=== PATIENT | female | born 1955 | race Caucasian/White ===

== ENCOUNTER → 2017-02-23 | Outpatient (CLI) | payer OTHER ==
[~2017-02-23] MED LIST: CALC0.5C PO; CALC1TAB23 PO; CHOLCAP5 PO; IMT50 PO; LEVO50TA6 PO; NRN100 PO; NRV/5 PO; NSNN50; OMEP40CA41 PO; PROCRIT INJ
--- NOTE | 2017-02-24 06:19 | PAP/PSG TECHNICIAN REPORT ---
[facility] Flaking Roll Operator Polysomnogram Report Study name: None Report date: 02/24/2017 Study date: 02/23/2017 Referring Physician: Mariela Peters Name: JESUS CAO Interpreting Physician: Mir Elizabeth M.D. Date of : 1955 Flaking Roll Operator: Madina Norman [facility]. Sex: Female Age: 61 StudyType: PSG PAP Weight: 221 lbs 15 in Height: 61 years, Height 5' 4" Neck Circum: BMI: 37.93 Medications: Dapsone 100mg, Deltasone 5mg, Lasix 40mg, Coreg 6.25mg, Procrit 51871kdlc/ml, Magnesium Oxide 400mg, Colace 100mg, Percocet 5-325mg, Difucan 200mg, Imitrex 50mg, Cellcept 250mg, Sodium Bicarbonate 650 mg, Prilosec 40mg, Neurontin 100mg, Valcyte 450mg, Levoxyl 50mcg, Nasonex 50mcg/act Patient History 61 yr-old female here for a new CPAP treatment study. She was found to be positive for [place] with an AHI of 51. Her diagnostic study was on 01/10/17. She chose a Quattro Air full face mask size medium from [employer]. The test was started on room air and 4 CMH2O. ETCO2 testing was not utilized during this study. Room 8 Parameters Monitored NPSG: E1-M2, E2-M1, Fp1-M2, Fp2-M1, F3-M2, F4-M2, F4-M1, C3-M2, C4-M2, C4-M1, O1-M2, O2-M2, O2-M1, T3-M2, T4-M1, P3-M2, P4-M1, CHIN1, CHIN2, HR, EKG, Legs, PFLOW, SNOR, FLOW, CFLOW, Tidal Volume, THOR, ABDO, SpO2, PLTH, CPRESS, ETCO2 Wave, ETCO2, pH Sleep Architecture Sleep Stages Time at Lights Off 10:42:49 PM STAGES Time (min.) TST (%) Time at Lights On 5:30:19 AM Wake 159.0 -- Total Recording Time (TRT) 407.50 min. N1 35.5 14 Total Sleep Period (TSP) 391.0 min. N2 161.5 65 Total Sleep Time (TST) 248.5min. N3 0.0 0 Awake Time 159.0 min. REM 51.5 21 Wake after Sleep Onset 153.5 min. Sleep Efficiency (SE) 61 % Sleep Onset Latency (ELEAZAR) 5.5 min. Number of Stage 1 Shifts None Awakenings 22 Stage Changes 87 Number of REM periods 3 REM 51.5 21 REM Latency 110.5 min. NREM 197.0 79 Body Position Analysis Supine Right Left Side Prone Vertical Total Sleep Time (min.) 274.5 0.0 83.3 83.33 0.0 0.0 Total Sleep Time (%) 66% 0% 34% 34 0% N/A% Total Sleep Time REM (min.) 43.7 0.0 7.8 None 0.0 0.0 Total Sleep Time NREM (min.) 121.5 0.0 75.5 None 0.0 0.0 Intermittent Wake (min.) 109.3 0.0 49.7 None 0.0 0.0 Total Sleep Period (%) 66% None None None None None Arousals Myoclonus (PLM) * Events Count Index Events Count Index Spontaneous 27 7 Events Awake (PLMW) 72 27.2 Respiratory 24 6.5 Events Asleep w/ Arousal (PLMA) 2 0.5 PLM 2 0 Events Asleep w/o Arousal (PLMS) 76 18.4 Snoring 3 1 Total Asleep 78 18.8 Total 56 14 Total 150 22 Respiratory Analysis * CA OA MA CH H RERA Total Count 2 26 0 0 29 9 57 Index 0.5 6.3 0.0 0 7.0 2 15.9 Mean Duration 12.5 17.4 0.0 0.00 20.2 15.2 18.2 Longest Duration 14.5 30.7 0.0 0.00 0.0 18.2 50.7 Respiratory Event Summary Total Supine ~Supine Right Left Prone REM NREM Apneas Count 28 28 0 N/A 0 N/A 10 18 Index 6.8 10 0 N/A 0.0 N/A 12 5 Hypopneas (4% Desat) Count 29 29 0 N/A 0 N/A 9 20 Index 7.0 10.5 0 N/A 0.0 N/A 10.5 6.1 Apneas & All Hypopneas Count 57 57 0 N/A 0 N/A 19 38 Index 13.8 21 0 N/A 0 N/A 22.1 11.6 Respiratory Events (Image Scientist+All Hyp+RERA) Count 57 66 0 N/A 0 N/A 19 38 Index 15.9 24 0 N/A 0.0 N/A 24.5 13.7 Respiratory Related Arousal Count 24 66 0 N/A 0 N/A 4 23 Index 6.5 10 0 N/A 0 N/A 5 7 Snoring Analysis Supine Right Left Prone REM NREM Total Snore duration 10.4 min Snores count 536 N/A 12 N/A 128 420 548 Snore mean duration 1.1 Sec Snores index 195 N/A 9 N/A 149.1 127.9 132.3 TST with snoring (%) 4.2% Desaturation Event Summary: Minimum %SpO2 Event Count Mean/Min/Max Duration(sec.) Desaturation Index % Time In Bed > 90 38 37.1 / 12.5 / 60.0 19.1 29.8 86 - 90 52 30.3 / 11.0 / 58.0 13.2 59.1 81 - 85 1 13.3 / 13.3 / 13.3 1.4 11.0 76 - 80 0 N/A 0.0 0.1 71 - 75 0 N/A 0.0 0.0 66 - 70 0 N/A 0.0 0.0 61 - 65 0 N/A 0.0 0.0 56 - 60 0 N/A 0.0 0.0 51 - 55 0 N/A 0.0 0.0 < 50 0 N/A 0.0 0.0 Total REM NREM Awake <50% 0.0 min. 0.0 min. 0.0 min. 0.0 min. 51 - 60% 0.0 min. 0.0 min. 0.0 min. 0.0 min. 61 - 70% 0.0 min. 0.0 min. 0.0 min. 0.0 min. 71 - 80% 0.2 min. 0.0 min. 0.2 min. 0.0 min. 81 - 90% 281.4 min. 37.9 min. 182.5 min. 61.0 min. 91 - 100% 119.4 min. 13.6 min. 14.3 min. 91.5 min. Average 89 89 88 91 Minimum SpO2 79 82 79 82 Desaturation Event Index 9.4 18.6 10.7 5.3 # Desat. Events below 89% 60 16 34 10 Time(%) with Saturation below 89% 28.7 3.4 21.1 4.2 Time(min.) with Saturation below 89% 115.1 13.7 84.7 16.7 Time (mins) REM (mins) NREM (mins) % of TST SpO2 Below 90% 50 16 N34 74.1 SpO2 Below 88% 26 0 0 25 Heart Rate Analysis Min (bpm) Max (bpm) Average (bpm) Awake 61 88 71 NREM 63 86 73 REM 63 85 69 Overall 63 86 73 Supplemental O2 Values Minimum O2 level: None Value Start Time End Time Flaking Roll Operator Comments Ms. Cao slept in the left and supine positions. No cardiac arrhythmias or PLMs were noted. No bruxism noted. CPAP was initiated at +4 CMH2O and up-titrated to a level of +12 CMH2O Cflex 2, which nearly eliminated all respiratory events and snoring. After she had been on a pressure of 12 CMH2O for over two hours, she had spent 10.6 minutes under an O2 saturation of 89%. At that time, 1 LPM of O2 was added. A Quattro Air full face mask size medium from [employer] was used during titration She awoke to use the restroom one time during the night. Ms. Cao stated that she slept ok. The final report will be interpreted and signed by a sleep physician. The completed physician report will then be placed in the patient medical record. Therapy Event: Therapy (cm H20) 4 6 7 9 11 12 Total Time at Pressure (min.) 31.2 25.1 22.8 50.6 58.1 219.8 TST at Pressure (min.) 10.7 24.6 22.8 50.1 57.6 82.8 # Periods 1 1 1 1 1 1 Sleep Onset (min.) 5.5 0.0 0.0 0.0 0.0 0.0 REM Onset (min.) N/A N/A N/A 36.9 0.0 63.3 Sleep Efficiency % 34 98 100 99 99 37 Wakefulness (%) 65.6 2.0 0.0 1.0 0.9 62.3 Wakefulness (min.) 20.5 0.5 0.0 0.5 0.5 137.0 NREM 1 (%) 28.0 13.0 8.8 14.8 1.7 5.9 NREM 1 (min.) 8.7 3.3 2.0 7.5 1.0 13.0 NREM 2 (%) 6.4 85.0 91.2 57.2 46.1 28.1 NREM 2 (min.) 2.0 21.3 20.8 28.9 26.7 61.8 NREM 3 (%) 0.0 0.0 0.0 0.0 0.0 0.0 NREM 3 (min.) 0.0 0.0 0.0 0.0 0.0 0.0 REM (%) 0.0 0.0 0.0 27.0 51.4 3.6 REM (min.) 0.0 0.0 0.0 13.7 29.8 8.0 # Arousals 13 3 2 18 3 17 Arousal Index 72.6 7.3 5.3 21.6 3.1 12.3 # Snore 16 248 104 28 143 9 Snore Index 89.3 606.1 274.1 33.5 149.1 6.5 AHI 33.5 14.7 10.5 35.9 9.4 1.5 AHI Supine 33.5 14.7 10.5 35.9 11.7 11.2 AHI Non-Supine N/A N/A N/A N/A 0.0 0.0 NREM AHI 33.5 14.7 10.5 28.0 6.5 1.6 REM AHI N/A N/A N/A 57.0 12.1 0.0 RDI 50.2 17.1 10.5 39.5 10.4 2.2 # Obstructive 0 0 1 19 6 0 # Central Ap 0 0 0 0 0 2 # Mixed 0 0 0 0 0 0 # Hypopneas 6 6 3 11 3 0 RERAS 3 1 0 3 1 1 Total Respiratory Events 9 7 4 33 10 3 Time Below SpO2 89.00% (min.) 8.7 23.2 20.8 20.1 14.9 10.7 Mean NREM SpO2 (%) 87 84 86 89 89 89 Mean REM SpO2 (%) N/A N/A N/A 89 90 89 Mean Sleep SpO2 (%) 87 84 86 89 89 89 Min NREM SpO2 (%) 82 81 84 79 85 87 Min REM SpO2 (%) N/A N/A N/A 82 86 87 Position Supine (min.) 10.7 24.6 22.8 50.1 46.3 10.7 Position Non-supine (min.) 0.0 0.0 0.0 0.0 11.2 72.1 LM Index Sleep 11.2 2.4 5.3 14.4 0.0 44.2 LM Index NREM 11.2 2.4 5.3 14.8 0.0 49.0 LM Index REM N/A N/A N/A 13.2 0.0 0.0 Mean Heart Rate (bpm) 76 79 77 72 71 70 Min Heart Rate (bpm) 67 67 64 63 63 63 CPAP REPORT Therapy Detail Time / Page # Comment CPAP 4 cm H2O Full Face Mask Flex Pressure Relief Humidifier on 10:40:27 PM / pg. 148 CPAP 6 cm H2O Full Face Mask Flex Pressure Relief Humidifier on 11:14:04 PM / pg. 215 INCREASED FOR HYPOPNEAS AND RERAS CPAP 7 cm H2O Full Face Mask Flex Pressure Relief Humidifier on 11:39:07 PM / pg. 265 INCREASED FOR AUDIBLE SNORING CPAP 9 cm H2O Full Face Mask Flex Pressure Relief Humidifier on 12:01:53 AM / pg. 311 INCREASED FOR MORE HYPOPNEAS AND RERAS CPAP 11 cm H2O Full Face Mask Flex Pressure Relief Humidifier on 12:52:30 AM / pg. 412 INCREASED FOR APNEAS AND HYPOPNEAS CPAP 12 cm H2O Full Face Mask Flex Pressure Relief Humidifier on 1:50:34 AM / pg. 528 INCREASED FOR MORE HYPOPNEAS AND APNEAS CPAP 12 cm H2O Full Face Mask Flex Pressure Relief Humidifier on Oxygen 1.0 lpm 4:13:12 AM / pg. 813 SHE HAS BEEN ON A PRESSURE OF 12 CM FOR OVER 2 HOURS AND HER AHI IS 1.6. SHE SPENT 10.6 MINUTES UNDER AN O2 SATURATION OF 89%. STARTING WITH 1 LPM OF O2
--- NOTE | 2017-02-27 11:57 | POLYSOMNOGRAPH REPORT ---
CLINICAL DATA: 61-year-old female referred with a BMI 37.9 referred by MALIA Juarez for CPAP titration. She recently showed severe sleep apnea during a PSG on 01/10/17. She chose Quattro Air full face mask size medium. SLEEP ARCHITECTURE: Total sleep period was 391 minutes. Total sleep time was 248.5 minutes divided between 197 of and 51.5 minutes of REM sleep. Sleep onset latency was 5.5 minutes. REM latency was 110.5 minutes. Sleep efficiency was 61%. Wake after sleep onset was elevated at 153.5 minutes. Sleep consisted of stage N1 14%, stage N2 65%, and REM 21%. AROUSAL DATA: 56 arousals were recorded for an index of 14 per hour. PLM DATA: Mildly elevated limb movements during sleep were noted. There were 78 limb movements during sleep noted for an index of 18.8 per hour with arousal index of 0.5 per hour. RESPIRATORY DATA: The AHI was 13.8. There were 2 central and 26 obstructive apneic episodes. The longest apneic episode was 30.7 seconds. There were 29 hypopneic episodes with a mean duration of 20 seconds. OXIMETRY DATA: Significant nocturnal hypoxemia was seen. Oxygen logan was 79% during non-REM sleep. The mean saturation was 89%. Time below 88% was 26 minutes. EKG: Heart rates ranged from 63-86 beats per minute. No arrhythmias were noted. BUILDING EQUIPMENT INSPECTOR'S COMMENTS AND TREATMENT SUMMARY: The patient slept in the left and supine positions. She used a Quattro Air full face mask size medium from [employer]. She was titrated up to a final pressure setting of CPAP 12 cm of water pressure, C-Flex setting #2. She slept at that pressure level for 82.8 minutes with an AHI of 1.5. However, she continued to have nocturnal hypoxemia and at that time, 1 liter per minute of oxygen was added. IMPRESSION: Severe obstructive sleep apnea corrected with CPAP 12 cm water pressure, C-Flex setting #2, Quattro full facemask size medium from [employer] with 1 liter per minute of oxygen for hypoxemia. RECOMMENDATIONS: The patient should be started on the above noted treatment regimen and seen back in followup within 90 days to document efficacy and compliance. [facility]
== END | disposition home or self-care (01) ==
LOC: C.NEUR 20:00
PROVIDERS: ATTEND Nurse Practitioner Family
DX: G47.33 Obstructive sleep apnea (adult) (pediatric) (principal); R09.02 Hypoxemia

== ENCOUNTER 2020-12-28 14:00 | Observation (INO) ==
[2020-12-28 17:30] LABS: Basophils # (auto) 0.02 K/uL (0-0.2); Basophils % (auto) 0.3 %; Eosinophils # (auto) 0.12 K/uL (0-0.5); Eosinophils % (auto) 1.6 %; Hematocrit (blood only) 39.1 % (37-47); Hemoglobin 12.3 g/dL (12.0-16.0); Immature Granulocytes # (auto) 0.02 K/uL (0.00-0.02); Immature Granulocytes % (auto) 0.3 %; Lymphocytes # (auto) 1.06 K/uL (1.2-3.4); Lymphocytes % (auto) 13.8 %; Mean Corpuscular Hemoglobin 28.3 pg (25-34); Mean Corpuscular Hgb Conc 31.5 g/dL (32-36); Mean Corpuscular Volume 89.9 fL (80-100); Mean Platelet Volume 9.8 fL (7.4-10.4); Monocytes # (auto) 0.78 K/uL (0.11-0.59); Monocytes % (auto) 10.1 %; Neutrophils # (auto) 5.69 K/uL (1.4-6.5); Neutrophils % (auto) 73.9 %; Platelet Count 185 K/uL (130-400); RDW Coefficient of Variation 14.2 % (11.5-14.5); RDW Standard Deviation 46.7 fL (36.4-46.3); Red Blood Count 4.35 M/uL (4.2-5.4); White Blood Count 7.69 K/uL (4.8-10.8)
[2020-12-28] MEDS ORDERED: PROCHLORPERAZINE 1 ML IV ONE (17:33)
[2020-12-28] MEDS ORDERED: dexAMETHasone**PF** 10 MG/ML VIAL IV ONE (17:33)
[2020-12-28] MEDS ORDERED: ACETAMINOPHEN 1,000 MG/100 ML VIAL IV STA (17:33)
[2020-12-28] MEDS ORDERED: diphenhydrAMINE 50 MG/ML VIAL IV STA (17:33)
[2020-12-28] MEDS ORDERED: SODIUM CHLORIDE 0.9% 500 ML IV STA (17:33)
[2020-12-28 17:39] LABS: Partial Thromboplastin Time 25.3 Seconds (21.0-31.0); Prothrombin Time 10.6 Seconds (9.0-12.0)
[2020-12-28 17:50] LABS: Albumin Level 3.3 gm/dl (3.4-5.0); BUN Creatinine Ratio 9.7 (10-20); Calcium 9.1 mg/dl (8.5-10.1); Creatinine Clr Calc Pharmacy 19.6 ml/min; Est GFR (African American) 16.4 ml/min; Est GFR (Non-African American) 14.1 ml/min; Potassium 4.9 mmol/L (3.5-5.1)
--- NOTE | 2020-12-28 17:50 | XRay Report ---
XR chest 1V portable CLINICAL HISTORY: Atypical chest pain TECHNIQUE: Single frontal radiograph of the chest was obtained. Comparison: None available at the time of this dictation. FINDINGS: Right portacatheter is seen. The cardiomediastinal silhouette is normal. The lungs are clear. No evid ence of pleural effusion or pneumothorax. IMPRESSION: No acute chest disease. ACT 112: Negative or not required by law. Electronically signed by: Phill Loomis M.D. 12/28/2020 5:49 PM
[2020-12-28 17:53] LABS: Albumin Globulin Ratio 1.2 (0.9-2); Bilirubin,Total 0.5 mg/dl (0.2-1); Globulin 2.7 gm/dl (2.5-4.0)
[2020-12-28 18:27] LABS: Bilirubin Direct 0.1 mg/dl (0-0.2); C Reactive Protein < 0.29 mg/dl (0-0.29); Magnesium 2.3 mg/dl (1.8-2.4); Thyroid Stimulating Hormone 0.156 uIu/ml (0.300-4.500); Troponin I < 0.015 ng/ml (0-0.045)
--- NOTE | 2020-12-28 18:34 | CT Scan Report ---
CT head/brain wo con CLINICAL HISTORY: ?frontal microhemorrhages on MRI 12/24. chron norman Technique: Contiguous axial CT images of the head were acquired from the base of the skull to the max lee without intravenous contrast administration. Images were viewed in brain, subdural and bone windo ws. Automated dose lowering techniques and/or adjustment according to patient size were utilized for this exam. Comparison: None available at the time of this dictation. Findings: The ventricles, basal cisterns, and cerebral sulci are normal. There is no acute intracranial hemorrh age or evidence of acute territorial infarction. Neither mass effect, shift of the midline structures , nor abnormal extra-axial fluid collections are shown. Imaged portions of the paranasal sinuses and mastoid air cells are clear. The orbits appear normal. There are no acute fractures of the calvaria or scalp swelling. Impression: No acute intracranial hemorrhage, evidence of acute territorial infarction, or other acute intracrani al disease process. ACT 112: Negative or not required by law. Electronically signed by: Phill Loomis M.D. 12/28/2020 6:33 PM
--- NOTE | 2020-12-28 18:38 | Emergency Department Note ---
Impression & Plan Hypertensive urgency, Abnormal finding on MRI of brain, Chronic migraine, CKD (chronic kidney disease) ED Provider Note NAME: JESUS CAO AGE: 65 SEX: F ARRIVES VIA: Walk-In INFORMANT: Patient, ED PROVIDER(S): Ángel Bee MD CHIEF COMPLAINT: Headache. Abnormal MRI. PLAN: Disposition: Admit MEDICAL DECISION MAKING: The patient is a pleasant 65-year-old with a past medical history of CKD in the setting of failed kidney transplant in 2017 who is status post left upper extremity AV fistula placement if she were to need to begin dialysis, history of migraine headaches, hypertension, hyperlipidemia who presents emerge department referred by her PCP for evaluation of ongoing chronic headache for the past several months which is present daily though waxes and wanes and may go away briefly which she felt was different from her migraine headaches which is difficult for her to characterize as these may also occur for days at a time with some time in between. She reports that she may even have several months without having a migraine headache but then reports she may have a dull tingling headache in between there that she feels is not her migraine but her blood pressure being elevated. She did have an MRI performed on 12/24 outpatient in the [facility] system which demonstrated the possibility of 2 foci of microhemorrhage in the frontal lobes. At this time patient reports her headache is mostly on her left side as it has been for the past several months and rates it as a 5/10. She reports she did take all her blood pressure medications that are needed up until this time. She has additional medications that she takes in the evening. [facility] MRI 12/24/2020 reads: Few scattered periventricular and subcortical white matter T2/FLAIR hyperintensities, which are nonspecific, and likely represent the sequela of chronic microvascular ischemia. Differential diagnosis include the possibility of prior trauma, migraine, infection or inflammatory etiology. Additionally, 2 foci of abnormal susceptibility artifact is noted on the gradient recall echo sequence within the bilateral frontal lobe white matter. This finding may represent microhemorrhages. On arrival the patient is no acute distress, afebrile with blood pressure 200/130s and vital signs otherwise stable. She appears clinically dry. She has no focal neurologic deficits. She has no bilateral temporal tenderness to palpation. EKG without overt acute ischemia. CXR negative for acute cardiopulmonary process. WBC, H/H, platelets wnl. ESR and CRP wnl. Chemistry without acidosis. Cr. 3.3 in setting of CKD. Electrolytes unremarkable. LFTs without significant abnormality. Troponin negative/undetectable. TSH 0.156 but with Free T4 wnl. UA with epithelial cells and patient denies urinary symptoms. Covid-[address] head negative for acute process, specifically no ICH. BP somewhat improved after IVF hydration and migraine cocktail. However, still elevated and given uncontrolled BP reasonable to admit for hypertensive urgency. Labetolol ordered. Case was discussed with [facility] neurology on-call Dr. Ryder. Agrees that outpatient MRI is not acute and likely related to uncontrolled BP. Agrees that admission is appropriate for BP controlled however not for outpatient MRI findings in particular. Patient agrees with plan for adm ission. [facility] the patient for [facility]. Triage Nursing notes reviewed and agree them. Prior medical records reviewed Vital Signs: reviewed and remarkable for hypertension. Differential diagnosis: Migraine headache, meningitis, sinusitis, CO exposure, ICH, SAH, infection, tumor, headache, sinus thrombosis, arterial dissection, as well as other pathol ogies. ER treatment provided: See below. Diagnostics interpreted by me: ECG: Normal sinus rhythm, 78 bpm, no ectopy, no overt ST elevation or depression, QTC 465, QRS 102. Cardiac Monitoring: An order for continuous cardiac monitoring was placed and demonstrated sinus rhythm, 70 bpm, no ectopy. Laboratory studies: See below Imaging studies: See below Consultation(s): Dr. Ryder, [facility] neurology on-call. Dr[facility]. HPI: The patient is a pleasant 65-year-old with a past medical history of CKD in the setting of failed kidney transplant in 2017 who is status post left upper extremity AV fistula placement if she were to need to begin dialysis, history of migraine headaches, hypertension, hyperlipidemia who presents emerge department referred by her PCP for evaluation of ongoing chronic headache for the past several months which is present daily though waxes and wanes and may go away briefly which she felt was different from her migraine headaches which is difficult for her to characterize as these may also occur for days at a time with some time in between. She reports that she may even have several months without having a migraine headache but then reports she may have a dull tingling headache in between there that she feels is not her migraine but her blood pressure being elevated. She did have an MRI performed on 12/24 outpatient in the [facility] system which demonstrated the possibility of 2 foci of microhemorrhage in the frontal lobes. ROS: See above HPI for pertinent positives & negatives. A total of 10 systems reviewed and were otherwise negative. PAST MEDICAL HISTORY:See Below PAST SURGICAL HISTORY:See Below FAMILY HISTORY:See Below SOCIAL HISTORY:See Below HOME MEDICATIONS:See Below ALLERGIES:See Below VITALS:See Below PHYSICAL EXAMINATION: GENERAL: Awake, alert, well-appearing, in no distress HENT: Normocephalic, atraumatic. Oropharynx with dry mucous membranes and otherwise unremarkable. EYES: Normal conjunctiva. Sclera non-icteric. EOMI. No nystamgus. PEARRL. NECK: Supple. No nuchal rigidity. FROM. No JVD. RESPIRATORY: Clear to auscultation. CARDIAC: Regular rate, normal rhythm. Extremities warm and well perfused. Pulses equal. ABDOMEN: Soft, non-distended. No tenderness to palpation. No rebound or guarding. No masses. RECTAL: Deferred. MUSCULOSKELETAL: Chest examination reveals no tenderness. The back is symmetrical on inspection without obvious abnormality. There is no CVA tenderness to palpation. No joint edema. LOWER EXTREMITIES: Calves are equal size bilaterally and non-tender. No edema. No discoloration. NEURO: No sensory or motor deficits noted. 5/5 strength and SILT x 4 extremities. Cerebellar function intact including [id number], alternating palms, [id number]. SKIN: No rash or jaundice noted. Ángel Bee MD Past Med/Surg History Medical History (Updated 12/29/20 @ 05:42 by Ángel Bee MD) Anemia in chronic kidney disease Chronic back pain Chronic steroid use GERD (gastroesophageal reflux disease) HLD (hyperlipidemia) HTN (hypertension) Hypothyroidism Migraine SIRS (systemic inflammatory response syndrome) Sleep apnea no device currently Surgical History History of bilateral tubal ligation History of section History of cholecystectomy History of colonoscopy History of esophagogastroduodenoscopy (EGD) History of kidney transplant 08/28/2016 @ [facility] (right side) functions at only 17%--d/t ESRD History of laparoscopy History of tonsillectomy and adenoidectomy History of tooth extraction History of wisdom tooth extraction Family History Grandmother (Paternal) Family history of diabetes mellitus Grandmother (Maternal) Family history of diabetes mellitus Family hx of colon cancer Mother Family hx of colon cancer Other No family history of adverse response to anesthesia Social History Smoking Status: Former smoker Second Hand Exposure: No; Do You Dip or Chew Tobacco: No; Tobacco Cessation Education Requested by Patient: No Hx Alcohol Use: No Hx Substance Use: No Preferred Language: Kiswahili Communication Ability: Effective Clinical Dietetic Technician Required: No Beliefs That Will Affect Care: None Current Living Situation: Spouse Current Living Situation Comment: Lives with and daughter and her family Other Information That Helps Us Care for You: No Feels Safe at Home: Yes Assistive Devices: Glasses Allergies Allergies Allergy/AdvReac Type Severity Reaction Status Date / Time levofloxacin AdvReac Severe C-DIFF Verified 12/28/20 19:41 Home Meds Home Medications Medication Instructions Recorded Confirmed aspirin 81 mg chewable tablet 81 mg PO QAM 04/23/18 12/28/20 belatacept 250 mg intravenous 1 dose IV MONTHLY 04/23/18 12/28/20 solution carvedilol 25 mg tablet 37.5 mg PO QAM 04/23/18 12/28/20 fluticasone propionate 50 2 spray INTRANASAL DAILY PRN 04/23/18 12/28/20 mcg/actuation nasal spray,suspension (Flonase Allergy Relief) furosemide 20 mg tablet 20 mg PO QAM 04/23/18 12/28/20 gabapentin 100 mg capsule 100 mg PO BID 04/23/18 12/28/20 levothyroxine 50 mcg tablet 50 mcg PO QAM 04/23/18 12/28/20 magnesium oxide 400 mg PO BID 04/23/18 12/28/20 omeprazole 40 mg capsule,delayed 40 mg PO QAM 04/23/18 12/28/20 release prednisone 5 mg tablet 5 mg PO QAM 04/23/18 12/28/20 sodium bicarbonate 650 mg tablet 650 mg PO QAM 04/23/18 12/28/20 sumatriptan succinate 50 mg tablet 1 tab PO UD PRN 04/23/18 12/28/20 tacrolimus 1 mg capsule, 1 mg PO BID 04/23/18 12/28/20 immediate-release carvedilol 25 mg tablet 25 mg PO QPM 12/28/20 12/28/20 oxycodone-acetaminophen 5 mg-325 1 tab PO Q6 PRN 12/28/20 12/28/20 mg tablet Results & Data (ED) Vital Signs Vital Signs - 24 hr 12/28/20 14:07 12/28/20 17:26 12/28/20 17:30 Temperature 37.2 C Temperature Source Oral Pulse Rate 76 76 79 Pulse Rate from SpO2 Sensor 75 79 Pulse Rhythm Respiratory Rate 18 19 22 Blood Pressure 186/84 H 181/97 H Blood Pressure Mean 118 125 Pulse Oximetry 97 96 95 Oxygen Delivery Method Room Air Sepsis Recent Fever Within 48 Hours No Sepsis New/Unexplained Change in Mental Status No Sepsis Action Taken by Nursing No Action Required 12/28/20 17:33 12/28/20 17:40 12/28/20 17:50 Temperature Temperature Source Pulse Rate 79 77 76 Pulse Rate from SpO2 Sensor 77 78 Pulse Rhythm Regular Respiratory Rate 18 25 H 15 Blood Pressure Blood Pressure Mean Pulse Oximetry 99 95 97 Oxygen Delivery Method Room Air Sepsis Recent Fever Within 48 Hours Sepsis New/Unexplained Change in Mental Status Sepsis Action Taken by Nursing 12/28/20 18:00 12/28/20 18:10 12/28/20 19:00 Temperature Temperature Source Pulse Rate 84 79 78 Pulse Rate from SpO2 Sensor 84 79 Pulse Rhythm Respiratory Rate 16 31 H 20 Blood Pressure 207/130 H Blood Pressure Mean 155 Pulse Oximetry 96 96 Oxygen Delivery Method Sepsis Recent Fever Within 48 Hours Sepsis New/Unexplained Change in Mental Status Sepsis Action Taken by Nursing 12/28/20 19:10 12/28/20 19:20 12/28/20 19:30 Temperature Temperature Source Pulse Rate 77 74 78 Pulse Rate from SpO2 Sensor Pulse Rhythm Respiratory Rate 21 20 18 Blood Pressure 172/100 H 188/105 H Blood Pressure Mean 124 132 Pulse Oximetry Oxygen Delivery Method Sepsis Recent Fever Within 48 Hours Sepsis New/Unexplained Change in Mental Status Sepsis Action Taken by Nursing 12/28/20 19:40 12/28/20 19:50 12/28/20 20:00 Temperature Temperature Source Pulse Rate 78 73 73 Pulse Rate from SpO2 Sensor 74 Pulse Rhythm Respiratory Rate 30 H 19 24 Blood Pressure Blood Pressure Mean Pulse Oximetry 93 93 95 Oxygen Delivery Method Sepsis Recent Fever Within 48 Hours Sepsis New/Unexplained Change in Mental Status Sepsis Action Taken by Nursing 12/28/20 20:10 12/28/20 20:20 12/28/20 20:30 Temperature Temperature Source Pulse Rate 73 74 70 Pulse Rate from SpO2 Sensor Pulse Rhythm Respiratory Rate 22 16 18 Blood Pressure 180/108 H Blood Pressure Mean 132 Pulse Oximetry 95 96 94 Oxygen Delivery Method Sepsis Recent Fever Within 48 Hours Sepsis New/Unexplained Change in Mental Status Sepsis Action Taken by Nursing 12/28/20 20:40 12/28/20 21:04 12/28/20 21:10 Temperature Temperature Source Pulse Rate 70 79 76 Pulse Rate from SpO2 Sensor Pulse Rhythm Respiratory Rate 19 21 20 Blood Pressure 183/104 H Blood Pressure Mean 130 Pulse Oximetry 95 Oxygen Delivery Method Sepsis Recent Fever Within 48 Hours Sepsis New/Unexplained Change in Mental Status Sepsis Action Taken by Nursing 12/28/20 21:20 Temperature Temperature Source Pulse Rate 85 Pulse Rate from SpO2 Sensor Pulse Rhythm Respiratory Rate 20 Blood Pressure 191/107 H Blood Pressure Mean 135 Pulse Oximetry Oxygen Delivery Method Sepsis Recent Fever Within 48 Hours Sepsis New/Unexplained Change in Mental Status Sepsis Action Taken by Nursing Laboratory Data Attestation: I reviewed the patient's lab results. Result diagrams: 12/28/20 17:16 12/28/20 17:16 Lab Results 12/28/20 12/28/20 12/28/20 Range/Units 17:16 17:16 17:16 WBC 7.69 (4.8-10.8) K/uL RBC 4.35 (4.2-5.4) M/uL Hgb 12.3 (12.0-16.0) g/dL Hct 39.1 (37-47) % MCV 89.9 (80-100) fL MCH 28.3 (25-34) pg MCHC 31.5 L (32-36) g/dL RDW Std Deviation 46.7 H (36.4-46.3) fL RDW Coeff of Moriah 14.2 (11.5-14.5) % Plt Count 185 (130-400) K/uL MPV 9.8 (7.4-10.4) fL Immature Gran % (Auto) 0.3 % Neut % (Auto) 73.9 % Lymph % (Auto) 13.8 % Mcdonough % (Auto) 10.1 % Eos % (Auto) 1.6 % Baso % (Auto) 0.3 % Neut # (Auto) 5.69 (1.4-6.5) K/uL Lymph # (Auto) 1.06 L (1.2-3.4) K/uL Mcdonough # (Auto) 0.78 H (0.11-0.59) K/uL Eos # (Auto) 0.12 (0-0.5) K/uL Baso # (Auto) 0.02 (0-0.2) K/uL Immature Gran # (Auto) 0.02 (0.00-0.02) K/uL ESR (0-30) mm/hr PT 10.6 (9.0-12.0) Seconds INR 1.0 (0.9-1.1) APTT 25.3 (21.0-31.0) Seconds PTT Ratio 1.0 Sodium 142 (136-145) mmol/L Potassium 4.9 (3.5-5.1) mmol/L Chloride 114 H (98-107) mmol/L Carbon Dioxide 21 (21-32) mmol/L Anion Gap 7.0 (3-11) BUN 32 H (7-18) mg/dl Creatinine 3.30 H (0.6-1.2) mg/dl Est Cr Clr Drug Dosing 19.6 ml/min Est GFR ( Amer) 16.4 ml/min Est GFR (Non-Af Amer) 14.1 ml/min BUN/Creatinine Ratio 9.7 L (10-20) Glucose 116 H (70-99) mg/dl Calcium 9.1 (8.5-10.1) mg/dl Phosphorus (2.5-4.9) mg/dl Magnesium (1.8-2.4) mg/dl Total Bilirubin 0.5 (0.2-1) mg/dl Direct Bilirubin (0-0.2) mg/dl AST 11 L (15-37) U/L ALT 26 (12-78) U/L Alkaline Phosphatase 72 (45-117) U/L Troponin I (0-0.045) ng/ml C-Reactive Protein (0-0.29) mg/dl Total Protein 6.0 L (6.4-8.2) gm/dl Albumin 3.3 L (3.4-5.0) gm/dl Globulin 2.7 (2.5-4.0) gm/dl Albumin/Globulin Ratio 1.2 (0.9-2) TSH (0.300-4.500) uIu/ml Free T4 (0.8-1.6) ng/dl COVID-19 Eval Order SARS-CoV-2 (PCR) (Negative) 12/28/20 12/28/20 12/28/20 Range/Units 17:16 17:16 17:49 WBC (4.8-10.8) K/uL RBC (4.2-5.4) M/uL Hgb (12.0-16.0) g/dL Hct (37-47) % MCV (80-100) fL MCH (25-34) pg MCHC (32-36) g/dL RDW Std Deviation (36.4-46.3) fL RDW Coeff of Moriah (11.5-14.5) % Plt Count (130-400) K/uL MPV (7.4-10.4) fL Immature Gran % (Auto) % Neut % (Auto) % Lymph % (Auto) % Mcdonough % (Auto) % Eos % (Auto) % Baso % (Auto) % Neut # (Auto) (1.4-6.5) K/uL Lymph # (Auto) (1.2-3.4) K/uL Mcdonough # (Auto) (0.11-0.59) K/uL Eos # (Auto) (0-0.5) K/uL Baso # (Auto) (0-0.2) K/uL Immature Gran # (Auto) (0.00-0.02) K/uL ESR 17 (0-30) mm/hr PT (9.0-12.0) Seconds INR (0.9-1.1) APTT (21.0-31.0) Seconds PTT Ratio Sodium (136-145) mmol/L Potassium (3.5-5.1) mmol/L Chloride (98-107) mmol/L Carbon Dioxide (21-32) mmol/L Anion Gap (3-11) BUN (7-18) mg/dl Creatinine (0.6-1.2) mg/dl Est Cr Clr Drug Dosing ml/min Est GFR ( Amer) ml/min Est GFR (Non-Af Amer) ml/min BUN/Creatinine Ratio (10-20) Glucose (70-99) mg/dl Calcium (8.5-10.1) mg/dl Phosphorus 3.0 (2.5-4.9) mg/dl Magnesium 2.3 (1.8-2.4) mg/dl Total Bilirubin (0.2-1) mg/dl Direct Bilirubin 0.1 (0-0.2) mg/dl AST (15-37) U/L ALT (12-78) U/L Alkaline Phosphatase (45-117) U/L Troponin I < 0.015 (0-0.045) ng/ml C-Reactive Protein < 0.29 (0-0.29) mg/dl Total Protein (6.4-8.2) gm/dl Albumin (3.4-5.0) gm/dl Globulin (2.5-4.0) gm/dl Albumin/Globulin Ratio (0.9-2) TSH 0.156 L (0.300-4.500) uIu/ml Free T4 1.32 (0.8-1.6) ng/dl COVID-19 Eval Order Covid19 at [facility] SARS-CoV-2 (PCR) (Negative) 12/28/20 Range/Units 17:49 WBC (4.8-10.8) K/uL RBC (4.2-5.4) M/uL Hgb (12.0-16.0) g/dL Hct (37-47) % MCV (80-100) fL MCH (25-34) pg MCHC (32-36) g/dL RDW Std Deviation (36.4-46.3) fL RDW Coeff of Moriah (11.5-14.5) % Plt Count (130-400) K/uL MPV (7.4-10.4) fL Immature Gran % (Auto) % Neut % (Auto) % Lymph % (Auto) % Mcdonough % (Auto) % Eos % (Auto) % Baso % (Auto) % Neut # (Auto) (1.4-6.5) K/uL Lymph # (Auto) (1.2-3.4) K/uL Mcdonough # (Auto) (0.11-0.59) K/uL Eos # (Auto) (0-0.5) K/uL Baso # (Auto) (0-0.2) K/uL Immature Gran # (Auto) (0.00-0.02) K/uL ESR (0-30) mm/hr PT (9.0-12.0) Seconds INR (0.9-1.1) APTT (21.0-31.0) Seconds PTT Ratio Sodium (136-145) mmol/L Potassium (3.5-5.1) mmol/L Chloride (98-107) mmol/L Carbon Dioxide (21-32) mmol/L Anion Gap (3-11) BUN (7-18) mg/dl Creatinine (0.6-1.2) mg/dl Est Cr Clr Drug Dosing ml/min Est GFR ( Amer) ml/min Est GFR (Non-Af Amer) ml/min BUN/Creatinine Ratio (10-20) Glucose (70-99) mg/dl Calcium (8.5-10.1) mg/dl Phosphorus (2.5-4.9) mg/dl Magnesium (1.8-2.4) mg/dl Total Bilirubin (0.2-1) mg/dl Direct Bilirubin (0-0.2) mg/dl AST (15-37) U/L ALT (12-78) U/L Alkaline Phosphatase (45-117) U/L Troponin I (0-0.045) ng/ml C-Reactive Protein (0-0.29) mg/dl Total Protein (6.4-8.2) gm/dl Albumin (3.4-5.0) gm/dl Globulin (2.5-4.0) gm/dl Albumin/Globulin Ratio (0.9-2) TSH (0.300-4.500) uIu/ml Free T4 (0.8-1.6) ng/dl COVID-19 Eval Order SARS-CoV-2 (PCR) NEGATIVE (Negative) Administered Medications Discontinued Medications Carvedilol (Carvedilol 12.5 Mg Tab) 37.5 mg PO NOW STA Stop: 12/28/20 21:21 Last Admin: 12/28/20 21:29 Dose: 37.5 mg Documented by: [id number] Dexamethasone Sodium Phosphate (DexamethasonePf 10 Mg/Ml Vial) 10 mg IV NOW ONE Stop: 12/28/20 17:34 Last Admin: 12/28/20 18:11 Dose: 10 mg Documented by: [id number] Diphenhydramine HCl (Diphenhydramine 50 Mg/Ml Vial) 12.5 mg IV NOW STA Stop: 12/28/20 17:34 Last Admin: 12/28/20 18:11 Dose: 12.5 mg Documented by: [id number] Sodium Chloride (Nss) 500 mls @ 999 mls/hr IV .Q31M STA Stop: 12/28/20 18:03 Last Infusion: 12/28/20 19:46 Dose: 999 mls/hr Documented by: [id number] Admin: 12/28/20 17:55 Dose: 999 mls/hr Documented by: [id number] Acetaminophen (Ofirmev) 1,000 mg in 100 mls @ 400 mls/hr IV NOW STA Stop: 12/28/20 17:47 Last Infusion: 12/28/20 18:12 Dose: 0 mls/hr Documented by: [id number] Admin: 12/28/20 18:11 Dose: 400 mls/hr Documented by: [id number] Prochlorperazine (Compazine) 1 mls @ 1 mls/min IV ONE ONE Stop: 12/28/20 17:34 Last Admin: 12/28/20 18:13 Dose: 1 mls/min Documented by: [id number] Labetalol HCl (Labetalol Hcl Iv 5 Mg/Ml 20ml) 10 mg IV NOW STA Stop: 12/28/20 19:02 Last Admin: 12/28/20 19:39 Dose: 10 mg Documented by: [id number] Cosigned by: [id number] Imaging Data Radiologist's Impression: Chest X-Ray 12/28/20 17:33 XR chest 1V portable CLINICAL HISTORY: Atypical chest pain TECHNIQUE: Single frontal radiograph of the chest was obtained. Comparison: None available at the time of this dictation. FINDINGS: Right portacatheter is seen. The cardiomediastinal silhouette is normal. The lungs are clear. No evidence of pleural effusion or pneumothorax. IMPRESSION: No acute chest disease. ACT 112: Negative or not required by law. Electronically signed by: Phill Loomis M.D. 12/28/2020 5:[address] 12/28/20 17:36 CT head/brain wo con CLINICAL HISTORY: ?frontal microhemorrhages on MRI 12/24. chron norman Technique: Contiguous axial CT images of the head were acquired from the base of the skull to the vertex without intravenous contrast administration. Images were viewed in brain, subdural and bone windows. Automated dose lowering techniques and/or adjustment according to patient size were utilized for this exam. Comparison: None available at the time of this dictation. Findings: The ventricles, basal cisterns, and cerebral sulci are normal. There is no acute intracranial hemorrhage or evidence of acute territorial infarction. Neither mass effect, shift of the midline structures, nor abnormal extra-axial fluid collections are shown. Imaged portions of the paranasal sinuses and mastoid air cells are clear. The orbits appear normal. There are no acute fractures of the calvaria or scalp swelling. Impression: No acute intracranial hemorrhage, evidence of acute territorial infarction, or other acute intracranial disease process. ACT 112: Negative or not required by law. Electronically signed by: Phill Loomis M.D. 12/28/2020 6:33 PM Discharge Plan Visit Data Chief Complaint: Referred by Doctor Stated Complaint: REFERRED BY DOCTOR, HIGH BLOOD PRESSURE ED Provider: Ángel Bee Discharge Problem: Hypertensive urgency, Abnormal finding on MRI of brain, Chronic migraine, CKD (chronic kidney disease) Patient Disposition: Admitted As Inpatient Discharge Instructions Interventions: ED Discharge Assessment Last Done: 12/28/20 22:17
[2020-12-28] MEDS ORDERED: LABETALOL HCL IV 5 MG/ML 20ML IV STA (19:01)
[2020-12-28 20:03] LABS: T4 Free Thyroxine 1.32 ng/dl (0.8-1.6)
--- NOTE | 2020-12-28 21:18 | History & Physical Report ---
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 SCDs RE cerebral microhemorrhages on recent outpatient MRI Full code Text document was generated using Than[employer] voice recognition software. It may contain grammatical or spelling errors. Kindly contact undersigned for clarification of any documentation item in question. History of Present Illness Chief Complaint: Abnormal MRI, PCP told me to go to ER. Primary Care Provider: Kenneth Butt MD History obtained from patient, family, and records. 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 Last confinement February 2016 for abdominal peritonitis secondary to peritoneal dialysis catheter infection. Patient seen at PCPs office 3 weeks ago for daily headache symptoms for about 3 to 4 months. Imitrex partially helping. SBP 1 30-1 80s at home. Patient compliant with home meds. Denies unusual stress. No chest pain, no S OB, no unusual fluid retention. SBP at PCPs office 160s at time of visit. Outpatient MRI requested by PCP done a few days ago. Study showed abnormal susceptibility artifact within white matter of bilateral frontal lobes likely representing 2 foci of microhemorrhage.. Scattered periventricular and subcortical white matter T2 FLAIR hyper and densities are nonspecific and likely represent chronic microvascular ischemia sequelae. Differential considerations include trauma, demyelinating pathology, infection or inflammatory etiology. Patient directed to ER for evaluation after PCP conferred with neurologist. Highest SBP at the ER 200s. Patient given Labetalol at the ER. MEDICAL HISTORY: As above. SURGERIES: section, tubal ligation, cholecystectomy, vascular procedures, renal biopsy, kidney transplant FAMILY HISTORY: Colon cancer, heart disease, and diabetes. PERSONAL AND SOCIAL HISTORY: Past tobacco abuse. No chronic intake of alcoholic beverages. 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 Allergies Allergy/AdvReac Type Severity Reaction Status Date / Time levofloxacin AdvReac Severe C-DIFF Verified 12/28/20 19:41 Home Medications Medication Instructions Recorded Confirmed Type aspirin 81 mg chewable tablet 81 mg PO QAM 04/23/18 12/28/20 History belatacept 250 mg intravenous 1 dose IV MONTHLY 04/23/18 12/28/20 History solution carvedilol 25 mg tablet 37.5 mg PO QAM 04/23/18 12/28/20 History fluticasone propionate 50 2 spray INTRANASAL DAILY PRN 04/23/18 12/28/20 History mcg/actuation nasal spray,suspension (Flonase Allergy Relief) furosemide 20 mg tablet 20 mg PO QAM 04/23/18 12/28/20 History gabapentin 100 mg capsule 100 mg PO BID 04/23/18 12/28/20 History levothyroxine 50 mcg tablet 50 mcg PO QAM 04/23/18 12/28/20 History magnesium oxide 400 mg PO BID 04/23/18 12/28/20 History omeprazole 40 mg capsule,delayed 40 mg PO QAM 04/23/18 12/28/20 History release prednisone 5 mg tablet 5 mg PO QAM 04/23/18 12/28/20 History sodium bicarbonate 650 mg tablet 650 mg PO QAM 04/23/18 12/28/20 History sumatriptan succinate 50 mg tablet 1 tab PO UD PRN 04/23/18 12/28/20 History tacrolimus 1 mg capsule, 1 mg PO BID 04/23/18 12/28/20 History immediate-release carvedilol 25 mg tablet 25 mg PO QPM 12/28/20 12/28/20 History oxycodone-acetaminophen 5 mg-325 1 tab PO Q6 PRN 12/28/20 12/28/20 History mg tablet hydralazine 25 mg PO QID 12/29/20 12/29/20 History Past Med/Surg History Medical History (Updated 12/29/20 @ 05:51 by Serafin Echavarria MD) Anemia in chronic kidney disease Chronic back pain Chronic steroid use GERD (gastroesophageal reflux disease) HLD (hyperlipidemia) HTN (hypertension) Hypothyroidism Migraine SIRS (systemic inflammatory response syndrome) Sleep apnea no device currently Surgical History History of bilateral tubal ligation History of section History of cholecystectomy History of colonoscopy History of esophagogastroduodenoscopy (EGD) History of kidney transplant 08/28/2016 @ [facility] (right side) functions at only 17%--d/t ESRD History of laparoscopy History of tonsillectomy and adenoidectomy History of tooth extraction History of wisdom tooth extraction Family History Grandmother (Paternal) Family history of diabetes mellitus Grandmother (Maternal) Family history of diabetes mellitus Family hx of colon cancer Mother Family hx of colon cancer Other No family history of adverse response to anesthesia Social History Smoking Status: Former smoker Second Hand Exposure: No; Do You Dip or Chew Tobacco: No; Tobacco Cessation Education Requested by Patient: No Hx Alcohol Use: No Hx Substance Use: No Preferred Language: Slovak Communication Ability: Effective Ham Marker Required: No Beliefs That Will Affect Care: None Current Living Situation: Spouse Current Living Situation Comment: Lives with and daughter and her family Other Information That Helps Us Care for You: No Feels Safe at Home: Yes Assistive Devices: Glasses Review of Systems Review of Systems: As per HPI, all 10 systems reviewed, all other ROS negative Physical Exam Physical Exam: GENERAL: Comfortable, obese, no respiratory distress SKIN: Normal color, warm HEENT: [place]pect[place]led, [place] palpebral conjunctivae, no ptosis, moist buccal mucosa NECK : Supple, short neck, no tenderness CHEST : CTA, no tenderness HEART : RRR, no obvious murmurs ABDOMEN: Some distention, nontender EXTREMITIES : Minimal LE swelling , no LE tenderness, no other conspicuous deformities noted NEUROLOGIC : Coherent, no facial asymmetry, no other gross focality Results & Data Results & Data ([facility]) Vital Signs (Past 12 Hours) Vital Signs Temp Pulse Resp BP Pulse Ox 12/28/20 19:30 78 18 188/105 H 12/28/20 19:20 74 20 12/28/20 19:10 77 21 172/100 H 12/28/20 19:00 78 20 12/28/20 18:10 79 31 H 96 12/28/20 18:00 84 16 207/130 H 96 12/28/20 17:50 76 15 97 12/28/20 17:40 77 25 H 95 12/28/20 17:33 79 18 99 12/28/20 17:30 79 22 181/97 H 95 12/28/20 17:26 76 19 96 12/28/20 14:07 37.2 C 76 18 186/84 H 97 Laboratory Results Laboratory Results WBC 7.69 K/uL (4.8-10.8) 12/28/20 17:16 RBC 4.35 M/uL (4.2-5.4) 12/28/20 17:16 Hgb 12.3 g/dL (12.0-16.0) 12/28/20 17:16 Hct 39.1 % (37-47) 12/28/20 17:16 MCV 89.9 fL (80-100) 12/28/20 17:16 MCH 28.3 pg (25-34) 12/28/20 17:16 MCHC 31.5 g/dL (32-36) L 12/28/20 17:16 RDW Std Deviation 46.7 fL (36.4-46.3) H 12/28/20 17:16 RDW Coeff of [place] 14.2 % (11.5-14.5) 12/28/20 17:16 Plt Count 185 K/uL (130-400) 12/28/20 17:16 MPV 9.8 fL (7.4-10.4) 12/28/20 17:16 Immature Gran % (Auto) 0.3 % 12/28/20 17:16 Neut % (Auto) 73.9 % 12/28/20 17:16 Lymph % (Auto) 13.8 % 12/28/20 17:16 [place] % (Auto) 10.1 % 12/28/20 17:16 Eos % (Auto) 1.6 % 12/28/20 17:16 Baso % (Auto) 0.3 % 12/28/20 17:16 Neut # (Auto) 5.69 K/uL (1.4-6.5) 12/28/20 17:16 Lymph # (Auto) 1.06 K/uL (1.2-3.4) L 12/28/20 17:16 [place] # (Auto) 0.78 K/uL (0.11-0.59) H 12/28/20 17:16 Eos # (Auto) 0.12 K/uL (0-0.5) 12/28/20 17:16 Baso # (Auto) 0.02 K/uL (0-0.2) 12/28/20 17:16 Immature Gran # (Auto) 0.02 K/uL (0.00-0.02) 12/28/20 17:16 ESR 17 mm/hr (0-30) 12/28/20 17:16 PT 10.6 Seconds (9.0-12.0) 12/28/20 17:16 INR 1.0 (0.9-1.1) 12/28/20 17:16 APTT 25.3 Seconds (21.0-31.0) 12/28/20 17:16 PTT Ratio 1.0 12/28/20 17:16 Sodium 142 mmol/L (136-145) 12/28/20 17:16 Potassium 4.9 mmol/L (3.5-5.1) 12/28/20 17:16 Chloride 114 mmol/L (98-107) H 12/28/20 17:16 Carbon Dioxide 21 mmol/L (21-32) 12/28/20 17:16 Anion Gap 7.0 (3-11) 12/28/20 17:16 BUN 32 mg/dl (7-18) H 12/28/20 17:16 Creatinine 3.30 mg/dl (0.6-1.2) H 12/28/20 17:16 Est Cr Clr Drug Dosing 19.6 ml/min 12/28/20 17:16 Est GFR ( Amer) 16.4 ml/min 12/28/20 17:16 Est GFR (Non-Af Amer) 14.1 ml/min 12/28/20 17:16 BUN/Creatinine Ratio 9.7 (10-20) L 12/28/20 17:16 Glucose 116 mg/dl (70-99) H 12/28/20 17:16 Calcium 9.1 mg/dl (8.5-10.1) 12/28/20 17:16 Phosphorus 3.0 mg/dl (2.5-4.9) 12/28/20 17:16 Magnesium 2.3 mg/dl (1.8-2.4) 12/28/20 17:16 Total Bilirubin 0.5 mg/dl (0.2-1) 12/28/20 17:16 Direct Bilirubin 0.1 mg/dl (0-0.2) 12/28/20 17:16 AST 11 U/L (15-37) L 12/28/20 17:16 ALT 26 U/L (12-78) 12/28/20 17:16 Alkaline Phosphatase 72 U/L (45-117) 12/28/20 17:16 Troponin I < 0.015 ng/ml (0-0.045) 12/28/20 17:16 C-Reactive Protein < 0.29 mg/dl (0-0.29) 12/28/20 17:16 Total Protein 6.0 gm/dl (6.4-8.2) L 12/28/20 17:16 Albumin 3.3 gm/dl (3.4-5.0) L 12/28/20 17:16 Globulin 2.7 gm/dl (2.5-4.0) 12/28/20 17:16 Albumin/Globulin Ratio 1.2 (0.9-2) 12/28/20 17:16 TSH 0.156 uIu/ml (0.300-4.500) L 12/28/20 17:16 Free T4 1.32 ng/dl (0.8-1.6) 12/28/20 17:16 COVID-19 Eval Order Covid19 at [facility] 12/28/20 17:49 SARS-CoV-2 (PCR) NEGATIVE (Negative) 12/28/20 17:49 Impressions Chest X-Ray 12/28/20 17:33 XR chest 1V portable CLINICAL HISTORY: Atypical chest pain TECHNIQUE: Single frontal radiograph of the chest was obtained. Comparison: None available at the time of this dictation. FINDINGS: Right portacatheter is seen. The cardiomediastinal silhouette is normal. The lungs are clear. No evidence of pleural effusion or pneumothorax. IMPRESSION: No acute chest disease. ACT 112: Negative or not required by law. Electronically signed by: Phill Loomis M.D. 12/28/2020 5:[address] 12/28/20 17:36 CT head/brain wo con CLINICAL HISTORY: ?frontal microhemorrhages on MRI 12/24. chron norman Technique: Contiguous axial CT images of the head were acquired from the base of the skull to the vertex without intravenous contrast administration. Images were viewed in brain, subdural and bone windows. Automated dose lowering techniques and/or adjustment according to patient size were utilized for this exam. Comparison: None available at the time of this dictation. Findings: The ventricles, basal cisterns, and cerebral sulci are normal. There is no acute intracranial hemorrhage or evidence of acute territorial infarction. Neither mass effect, shift of the midline structures, nor abnormal extra-axial fluid collections are shown. Imaged portions of the paranasal sinuses and mastoid air cells are clear. The orbits appear normal. There are no acute fractures of the calvaria or scalp swelling. Impression: No acute intracranial hemorrhage, evidence of acute territorial infarction, or other acute intracranial disease process. ACT 112: Negative or not required by law. Electronically signed by: Phill Loomis M.D. 12/28/2020 6:33 PM Diagnostic Findings EKG as per my interpretation rate 80, NSR, LAD, LAFB, incomplete RBBB, no ischemia
[2020-12-28] MEDS ORDERED: carvediloL 12.5 MG TAB PO STA (21:20)
[2020-12-28] MEDS ORDERED: oxyCODONE/ACETAMINOPHEN 5mg/325mg TAB PO PRN (22:37)
[2020-12-28] MEDS ORDERED: LORazepam 0.5 MG/1 ML VIAL IV PRN (22:37)
[2020-12-28] MEDS ORDERED: NITROGLYCERIN SL 0.4 MG/TAB TAB SL PRN (22:37)
[2020-12-28] MEDS ORDERED: ACETAMINOPHEN 325 MG TAB PO PRN (22:37)
[2020-12-28] MEDS ORDERED: HYDROmorphone INJ 0.5 MG/0.5 ML SYR IV PRN (22:37)
[2020-12-29 02:03] LABS: Appearance Urine Clear (Clear); Bacteria Urine Automated Negative (Negative); Bilirubin Urine Negative (Negative); Blood Urine Negative (Negative); Color Urine Yellow; Epithelial Cell Urine Auto >30 /lpf (0-5); Glucose Urine UA 1+ (Negative); Ketones Urine Negative (Negative); Leukocyte Esterase Urine Negative (Negative); Nitrite Urine Negative (Negative); Protein Urine 3+ (Negative); RBC Urine Automated 0-4 /hpf (0-4); Specific Gravity Urine 1.018 (1.000-1.030); Urobilinogen Urine Negative (Negative); pH Urine 6.5 (4.5-7.5)
[2020-12-29] MEDS ORDERED: hydrALAZINE HCL 25 MG TAB PO SCH (05:45)
[2020-12-29] MEDS: ACETAMINOPHEN 325 MG TAB PO PRN (05:53)
[2020-12-29] MEDS: LEVOTHYROXINE SODIUM 50 MCG TABLET PO SCH (06:07)
[2020-12-29 06:26] LABS: Hematocrit (blood only) 36.5 % (37-47); Hemoglobin 11.5 g/dL (12.0-16.0); Immature Granulocytes # (auto) 0.02 K/uL (0.00-0.02); Immature Granulocytes % (auto) 0.3 %; Lymphocytes # (auto) 0.58 K/uL (1.2-3.4); Lymphocytes % (auto) 10.1 %; Mean Corpuscular Hemoglobin 27.8 pg (25-34); Mean Corpuscular Hgb Conc 31.5 g/dL (32-36); Mean Corpuscular Volume 88.4 fL (80-100); Mean Platelet Volume 9.4 fL (7.4-10.4); Monocytes # (auto) 0.12 K/uL (0.11-0.59); Monocytes % (auto) 2.1 %; Neutrophils % (auto) 87.5 %; Platelet Count 170 K/uL (130-400); RDW Coefficient of Variation 13.7 % (11.5-14.5); RDW Standard Deviation 44.7 fL (36.4-46.3); Red Blood Count 4.13 M/uL (4.2-5.4); White Blood Count 5.72 K/uL (4.8-10.8)
[2020-12-29 07:01] LABS: BUN Creatinine Ratio 10.5 (10-20); Calcium 9.3 mg/dl (8.5-10.1); Creatinine Clr Calc Pharmacy 20.5 ml/min; Est GFR (African American) 15.8 ml/min; Est GFR (Non-African American) 13.6 ml/min; Potassium 4.9 mmol/L (3.5-5.1)
--- NOTE | 2020-12-29 07:12 | Hospitalist Progress Note ---
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 Decrease the dose of hydralazine to 25 mg 3 times a day. In any case, it is next to impossible to have good compliance with hydralazine as a 4 times a day drug. - If her BP gets higher again, we will add a low-dose amlodipine at 2.5 mg. - Given that she is now CKD stage V, believe she needs a little more diuretics than what she is getting now, so we will increase the dose of Lasix to 40 mg daily. - She is very close to needing dialysis again and has started the preparation including creation of fistula in 10/2020. History of migraine headache -On Imitrex, neurology consulted, recommend to stop Imitrex in vsculopathic pt -cont. gabapentin -Patient was sent to ED after abnormal MRI, which was discussed with neurology - appreciate neurology recommendations [place] (CPAP noncompliance), patient awaiting schedule for updated outpatient sleep study - Outpatient sleep study Hypothyroidism TSH noted to be low with normal free T4 Steroid-induced hyperglycemia, possible prediabetes hemoglobin A1c of 5.19 December 2019 check hemoglobin A1c past tobacco abuse DVT prophylaxis. SCDs: RE cerebral microhemorrhages on recent outpatient MRI Full code Admission and Anticipated Discharge Date Admission Date: December 28, 2020 Subjective Patient seen in follow-up of headache, abnormal MRI findings, uncontrolled hypertension Currently sitting up in the chair, in no acute distress, however appears anxious Blood pressure much improved since being in the hospital Currently reports only slight headache, no chest pain shortness of breath, or abdominal pain She does report some GERD symptoms, and also loose stools No fevers, chills, no vision changes Review of Systems Review of Systems: All systems reviewed & are unremarkable except as noted in Subjective Physical Exam Physical Exam: GENERAL: obese F appears slightly anxious but in NAD HEENT: NC/AT, bespectacled, pink palpebral conjunctivae NECK : Supple, no tenderness CHEST : CTAB, no tenderness HEART : RRR, no obvious murmurs ABDOMEN: some distention, nontender EXTREMITIES : minimal LE swelling, no LE tenderness SKIN: Normal color, warm NEUROLOGIC : alert and oriented x3, no facial asymmetry, speech fluent, moves extremities Results & Data Results & Data ([facility]) Vital Signs (Past 12 Hours) Vital Signs Temp Pulse Resp BP BP Pulse Ox 12/29/20 03:14 36.6 C 18 173/89 H 95 12/28/20 23:32 77 12/28/20 22:49 36.6 C 18 175/98 H 94 12/28/20 22:37 36.6 C 18 175/98 H 94 12/28/20 22:17 81 20 198/102 H 98 12/28/20 22:00 79 20 196/98 H 12/28/20 21:50 83 22 12/28/20 21:40 81 23 12/28/20 21:30 80 22 183/106 H 12/28/20 21:20 85 20 191/107 H 12/28/20 21:10 76 20 12/28/20 21:04 79 21 183/104 H 12/28/20 20:40 70 19 95 12/28/20 20:30 70 18 94 12/28/20 20:20 74 16 180/108 H 96 12/28/20 20:10 73 22 95 12/28/20 20:00 73 24 95 12/28/20 19:50 73 19 93 12/28/20 19:40 78 30 H 93 12/28/20 19:30 78 18 188/105 H 12/28/20 19:20 74 20 12/28/20 19:10 77 21 172/100 H Laboratory Results 12/29/20 12/29/20 12/29/20 Range/Units 06:10 06:10 01:35 WBC 5.72 (4.8-10.8) K/uL RBC 4.13 L (4.2-5.4) M/uL Hgb 11.5 L (12.0-16.0) g/dL Hct 36.5 L (37-47) % MCV 88.4 (80-100) fL MCH 27.8 (25-34) pg MCHC 31.5 L (32-36) g/dL RDW Std Deviation 44.7 (36.4-46.3) fL RDW Coeff of Mor[place] 13.7 (11.5-14.5) % Plt Count 170 (130-400) K/uL MPV 9.4 (7.4-10.4) fL Immature Gran % (Auto) 0.3 % Neut % (Auto) 87.5 % Lymph % (Auto) 10.1 % [place] % (Auto) 2.1 % Eos % (Auto) 0.0 % Baso % (Auto) 0.0 % Neut # (Auto) 5.00 (1.4-6.5) K/uL Lymph # (Auto) 0.58 L (1.2-3.4) K/uL [place] # (Auto) 0.12 (0.11-0.59) K/uL Eos # (Auto) 0.00 (0-0.5) K/uL Baso # (Auto) 0.00 (0-0.2) K/uL Immature Gran # (Auto) 0.02 (0.00-0.02) K/uL ESR (0-30) mm/hr PT (9.0-12.0) Seconds INR (0.9-1.1) APTT (21.0-31.0) Seconds PTT Ratio Sodium 140 (136-145) mmol/L Potassium 4.9 (3.5-5.1) mmol/L Chloride 114 H (98-107) mmol/L Carbon Dioxide 18 L (21-32) mmol/L Anion Gap 8.0 (3-11) BUN 36 H (7-18) mg/dl Creatinine 3.40 H (0.6-1.2) mg/dl Est Cr Clr Drug Dosing 20.5 ml/min Est GFR ( Amer) 15.8 ml/min Est GFR (Non-Af Amer) 13.6 ml/min BUN/Creatinine Ratio 10.5 (10-20) Glucose 178 H (70-99) mg/dl Calcium 9.3 (8.5-10.1) mg/dl Phosphorus (2.5-4.9) mg/dl Magnesium (1.8-2.4) mg/dl Total Bilirubin (0.2-1) mg/dl Direct Bilirubin (0-0.2) mg/dl AST (15-37) U/L ALT (12-78) U/L Alkaline Phosphatase (45-117) U/L Troponin I (0-0.045) ng/ml C-Reactive Protein (0-0.29) mg/dl Total Protein (6.4-8.2) gm/dl Albumin (3.4-5.0) gm/dl Globulin (2.5-4.0) gm/dl Albumin/Globulin Ratio (0.9-2) TSH (0.300-4.500) uIu/ml Free T4 (0.8-1.6) ng/dl Urine Color Yellow Urine Appearance Clear (Clear) Urine pH 6.5 (4.5-7.5) Ur Specific Alden 1.018 (1.000-1.030) Urine Protein 3+ H (Negative) Urine Glucose (UA) 1+ H (Negative) Urine Ketones Negative (Negative) Urine Blood Negative (Negative) Urine Nitrite Negative (Negative) Urine Bilirubin Negative (Negative) Urine Urobilinogen Negative (Negative) Ur Leukocyte Esterase Negative (Negative) Urine WBC (Auto) 10-30 H (0-5) /hpf Urine RBC (Auto) 0-4 (0-4) /hpf U Hyaline Cast (Auto) 1-5 (0-5) /lpf U Epithel Cells (Auto) >30 H (0-5) /lpf Urine Bacteria (Auto) Negative (Negative) COVID-19 Eval Order SARS-CoV-2 (PCR) (Negative) 12/28/20 12/28/20 12/28/20 Range/Units 17:49 17:49 17:16 WBC (4.8-10.8) K/uL RBC (4.2-5.4) M/uL Hgb (12.0-16.0) g/dL Hct (37-47) % MCV (80-100) fL MCH (25-34) pg MCHC (32-36) g/dL RDW Std Deviation (36.4-46.3) fL RDW Coeff of Moriah (11.5-14.5) % Plt Count (130-400) K/uL MPV (7.4-10.4) fL Immature Gran % (Auto) % Neut % (Auto) % Lymph % (Auto) % [place] % (Auto) % Eos % (Auto) % Baso % (Auto) % Neut # (Auto) (1.4-6.5) K/uL Lymph # (Auto) (1.2-3.4) K/uL [place] # (Auto) (0.11-0.59) K/uL Eos # (Auto) (0-0.5) K/uL Baso # (Auto) (0-0.2) K/uL Immature Gran # (Auto) (0.00-0.02) K/uL ESR 17 (0-30) mm/hr PT (9.0-12.0) Seconds INR (0.9-1.1) APTT (21.0-31.0) Seconds PTT Ratio Sodium (136-145) mmol/L Potassium (3.5-5.1) mmol/L Chloride (98-107) mmol/L Carbon Dioxide (21-32) mmol/L Anion Gap (3-11) BUN (7-18) mg/dl Creatinine (0.6-1.2) mg/dl Est Cr Clr Drug Dosing ml/min Est GFR ( Amer) ml/min Est GFR (Non-Af Amer) ml/min BUN/Creatinine Ratio (10-20) Glucose (70-99) mg/dl Calcium (8.5-10.1) mg/dl Phosphorus (2.5-4.9) mg/dl Magnesium (1.8-2.4) mg/dl Total Bilirubin (0.2-1) mg/dl Direct Bilirubin (0-0.2) mg/dl AST (15-37) U/L ALT (12-78) U/L Alkaline Phosphatase (45-117) U/L Troponin I (0-0.045) ng/ml C-Reactive Protein (0-0.29) mg/dl Total Protein (6.4-8.2) gm/dl Albumin (3.4-5.0) gm/dl Globulin (2.5-4.0) gm/dl Albumin/Globulin Ratio (0.9-2) TSH (0.300-4.500) uIu/ml Free T4 (0.8-1.6) ng/dl Urine Color Urine Appearance (Clear) Urine pH (4.5-7.5) Ur Specific Alden (1.000-1.030) Urine Protein (Negative) Urine Glucose (UA) (Negative) Urine Ketones (Negative) Urine Blood (Negative) Urine Nitrite (Negative) Urine Bilirubin (Negative) Urine Urobilinogen (Negative) Ur Leukocyte Esterase (Negative) Urine WBC (Auto) (0-5) /hpf Urine RBC (Auto) (0-4) /hpf U Hyaline Cast (Auto) (0-5) /lpf U Epithel Cells (Auto) (0-5) /lpf Urine Bacteria (Auto) (Negative) COVID-19 Eval Order Covid19 at [facility] SARS-CoV-2 (PCR) NEGATIVE (Negative) 12/28/20 12/28/20 12/28/20 Range/Units 17:16 17:16 17:16 WBC (4.8-10.8) K/uL RBC (4.2-5.4) M/uL Hgb (12.0-16.0) g/dL Hct (37-47) % MCV (80-100) fL MCH (25-34) pg MCHC (32-36) g/dL RDW Std Deviation (36.4-46.3) fL RDW Coeff of Moriah (11.5-14.5) % Plt Count (130-400) K/uL MPV (7.4-10.4) fL Immature Gran % (Auto) % Neut % (Auto) % Lymph % (Auto) % [place] % (Auto) % Eos % (Auto) % Baso % (Auto) % Neut # (Auto) (1.4-6.5) K/uL Lymph # (Auto) (1.2-3.4) K/uL [place] # (Auto) (0.11-0.59) K/uL Eos # (Auto) (0-0.5) K/uL Baso # (Auto) (0-0.2) K/uL Immature Gran # (Auto) (0.00-0.02) K/uL ESR (0-30) mm/hr PT 10.6 (9.0-12.0) Seconds INR 1.0 (0.9-1.1) APTT 25.3 (21.0-31.0) Seconds PTT Ratio 1.0 Sodium 142 (136-145) mmol/L Potassium 4.9 (3.5-5.1) mmol/L Chloride 114 H (98-107) mmol/L Carbon Dioxide 21 (21-32) mmol/L Anion Gap 7.0 (3-11) BUN 32 H (7-18) mg/dl Creatinine 3.30 H (0.6-1.2) mg/dl Est Cr Clr Drug Dosing 19.6 ml/min Est GFR ( Amer) 16.4 ml/min Est GFR (Non-Af Amer) 14.1 ml/min BUN/Creatinine Ratio 9.7 L (10-20) Glucose 116 H (70-99) mg/dl Calcium 9.1 (8.5-10.1) mg/dl Phosphorus 3.0 (2.5-4.9) mg/dl Magnesium 2.3 (1.8-2.4) mg/dl Total Bilirubin 0.5 (0.2-1) mg/dl Direct Bilirubin 0.1 (0-0.2) mg/dl AST 11 L (15-37) U/L ALT 26 (12-78) U/L Alkaline Phosphatase 72 (45-117) U/L Troponin I < 0.015 (0-0.045) ng/ml C-Reactive Protein < 0.29 (0-0.29) mg/dl Total Protein 6.0 L (6.4-8.2) gm/dl Albumin 3.3 L (3.4-5.0) gm/dl Globulin 2.7 (2.5-4.0) gm/dl Albumin/Globulin Ratio 1.2 (0.9-2) TSH 0.156 L (0.300-4.500) uIu/ml Free T4 1.32 (0.8-1.6) ng/dl Urine Color Urine Appearance (Clear) Urine pH (4.5-7.5) Ur Specific Alden (1.000-1.030) Urine Protein (Negative) Urine Glucose (UA) (Negative) Urine Ketones (Negative) Urine Blood (Negative) Urine Nitrite (Negative) Urine Bilirubin (Negative) Urine Urobilinogen (Negative) Ur Leukocyte Esterase (Negative) Urine WBC (Auto) (0-5) /hpf Urine RBC (Auto) (0-4) /hpf U Hyaline Cast (Auto) (0-5) /lpf U Epithel Cells (Auto) (0-5) /lpf Urine Bacteria (Auto) (Negative) COVID-19 Eval Order SARS-CoV-2 (PCR) (Negative) 12/28/20 Range/Units 17:16 WBC 7.69 (4.8-10.8) K/uL RBC 4.35 (4.2-5.4) M/uL Hgb 12.3 (12.0-16.0) g/dL Hct 39.1 (37-47) % MCV 89.9 (80-100) fL MCH 28.3 (25-34) pg MCHC 31.5 L (32-36) g/dL RDW Std Deviation 46.7 H (36.4-46.3) fL RDW Coeff of Moriah 14.2 (11.5-14.5) % Plt Count 185 (130-400) K/uL MPV 9.8 (7.4-10.4) fL Immature Gran % (Auto) 0.3 % Neut % (Auto) 73.9 % Lymph % (Auto) 13.8 % [place] % (Auto) 10.1 % Eos % (Auto) 1.6 % Baso % (Auto) 0.3 % Neut # (Auto) 5.69 (1.4-6.5) K/uL Lymph # (Auto) 1.06 L (1.2-3.4) K/uL [place] # (Auto) 0.78 H (0.11-0.59) K/uL Eos # (Auto) 0.12 (0-0.5) K/uL Baso # (Auto) 0.02 (0-0.2) K/uL Immature Gran # (Auto) 0.02 (0.00-0.02) K/uL ESR (0-30) mm/hr PT (9.0-12.0) Seconds INR (0.9-1.1) APTT (21.0-31.0) Seconds PTT Ratio Sodium (136-145) mmol/L Potassium (3.5-5.1) mmol/L Chloride (98-107) mmol/L Carbon Dioxide (21-32) mmol/L Anion Gap (3-11) BUN (7-18) mg/dl Creatinine (0.6-1.2) mg/dl Est Cr Clr Drug Dosing ml/min Est GFR ( Amer) ml/min Est GFR (Non-Af Amer) ml/min BUN/Creatinine Ratio (10-20) Glucose (70-99) mg/dl Calcium (8.5-10.1) mg/dl Phosphorus (2.5-4.9) mg/dl Magnesium (1.8-2.4) mg/dl Total Bilirubin (0.2-1) mg/dl Direct Bilirubin (0-0.2) mg/dl AST (15-37) U/L ALT (12-78) U/L Alkaline Phosphatase (45-117) U/L Troponin I (0-0.045) ng/ml C-Reactive Protein (0-0.29) mg/dl Total Protein (6.4-8.2) gm/dl Albumin (3.4-5.0) gm/dl Globulin (2.5-4.0) gm/dl Albumin/Globulin Ratio (0.9-2) TSH (0.300-4.500) uIu/ml Free T4 (0.8-1.6) ng/dl Urine Color Urine Appearance (Clear) Urine pH (4.5-7.5) Ur Specific Ald[place] (1.000-1.030) Urine Protein (Negative) Urine Glucose (UA) (Negative) Urine Ketones (Negative) Urine Blood (Negative) Urine Nitrite (Negative) Urine Bilirubin (Negative) Urine Urobilinogen (Negative) Ur Leukocyte Esterase (Negative) Urine WBC (Auto) (0-5) /hpf Urine RBC (Auto) (0-4) /hpf U Hyaline Cast (Auto) (0-5) /lpf U Epithel Cells (Auto) (0-5) /lpf Urine Bacteria (Auto) (Negative) COVID-19 Eval Order SARS-CoV-2 (PCR) (Negative) Medications Administered Current Inpatient Medications Acetaminophen (Acetaminophen 325 Mg Tab) 325 mg PO Q6H PRN PRN Reason: Mild Pain Stop: 01/27/21 22:36 Last Admin: 12/29/20 05:53 Dose: 325 mg Documented by: Carvedilol (Carvedilol 12.5 Mg Tab) 37.5 mg PO BID [facility] Stop: 01/28/21 08:59 Gabapentin (Gabapentin 100 Mg Cap) 100 mg PO BID [facility] Stop: 01/28/21 08:59 Hydralazine HCl (Hydralazine Hcl 25 Mg Tab) 25 mg PO QID [facility] Stop: 01/28/21 05:44 Last Admin: 12/29/20 06:11 Dose: 25 mg Documented by: Hydromorphone HCl (Hydromorphone Inj 0.5 Mg/0.5 Ml Syr) 0.5 mg IV Q3H PRN PRN Reason: Pain Stop: 01/11/21 22:36 Promethazine HCl 12.5 mg/ (Sodium Chloride) 50.5 mls @ 202 mls/hr IV Q6H PRN PRN Reason: Nausea And Vomiting Stop: 01/27/21 22:36 Lorazepam (Ativan) 0.5 mg in 1 mls @ 1 mls/min IV Q4H PRN PRN Reason: Anxiety/Agitation Stop: 01/27/21 22:36 Levothyroxine Sodium (Levothyroxine Sodium 50 Mcg Tablet) 50 mcg PO DAILYBB [facility] Stop: 01/28/21 06:29 Last Admin: 12/29/20 06:07 Dose: 50 mcg Documented by: Nitroglycerin (Nitroglycerin Sl 0.4 Mg/Tab Tab) 0.4 mg SL UD PRN PRN Reason: Chest Pain Stop: 01/27/21 22:36 Oxycodone/Acetaminophen (Oxycodone/Acetaminophen 5mg/325mg Tab) 1 tab PO Q6 PRN PRN Reason: Pain Stop: 01/11/21 22:36 Pantoprazole Sodium (Pantoprazole 40 Mg Tab) 40 mg PO QAM [facility] Stop: 01/28/21 08:59 Prednisone (Prednisone 5 Mg Tab) 5 mg PO QAM [facility] Stop: 01/28/21 08:59 Sodium Bicarbonate (Sodium Bicarbonate 650 Mg Tab) 650 mg PO QAM [facility] Stop: 01/28/21 08:59 Tacrolimus (Tacrolimus 1 Mg Cap) 1 mg PO BID [facility] Stop: 01/28/21 08:59
[2020-12-29] MEDS: GABAPENTIN 100 MG CAP PO SCH ×2 (08:55→20:39)
[2020-12-29] MEDS: predniSONE 5 MG TAB PO SCH (08:55)
[2020-12-29] MEDS: TACROLIMUS 1 MG CAP PO SCH ×2 (08:55→20:39)
[2020-12-29] MEDS ORDERED: PANTOprazole 40 MG TAB PO SCH (09:00)
[2020-12-29] MEDS ORDERED: SODIUM BICARBONATE 650 MG TAB PO SCH (09:00)
[2020-12-29] MEDS ORDERED: carvediloL 12.5 MG TAB PO SCH ×2 (09:00→21:00)
--- NOTE | 2020-12-29 10:42 | Neurology Consultation ---
Date of Consultation December 29, 2020 Assessment & Plan (1) Chronic migraine: 1. would not use narcotics to treat migraine headaches 2. already on gabapentin would continue 100 mg BID 3. would not use Imitrex in a vasculo pathic patient increases risk of stroke 4. will see her in follow up for prophylactic treatment of headache possible botox 5. tylenol prn for daily headache watch for over use headaches- headaches have improved with blood pressure controlled will be available for questions concerns (2) Hypertensive urgency: 1. blood presure was elevated on presentation but now in a high normal range (3) Abnormal finding on MRI of brain: 1. MRI reviewed in [facility] system - chronic microvascular disease Supervising Physician Co-Signing Physician Notes Patient was seen and examined. PAtient with known migraine headaches admitted for hypertenisve urgency. Headache improved with blood pressure control. Given uncontrolled HTN would STOP Imitrex. Chronic migraine management as outpatient. Please call with any additional questions or concerns. 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 In February 2016 she was admitted for abdominal peritonitis secondary to peritoneal dialysis catheter infection. She saw her PCP 3 weeks ago for daily headache symptoms for about 3 to 4 months. Imitrex partially helping. Outpatient MRI revealed abnormal susceptibility artifact within white matter of bilateral frontal lobes likely representing 2 foci of microhemorrhage.. Scattered periventricular and subcortical white matter T2 FLAIR hyper and densities are nonspecific and likely represent chronic microvascular ischemia sequelae. Differential considerations include trauma, demyelinating pathology, infection or inflammatory etiology. Currently she states her headache is better. They have been giving her tylenol and that has kept it under control. denies CP, SOB, abdominal pain, one sided weakness, numbness tingling, new bowel or bladder issues. Allergies Allergy/AdvReac Type Severity Reaction Status Date / Time levofloxacin AdvReac Severe C-DIFF Verified 12/28/20 19:41 Home Medications Medication Instructions Recorded Confirmed Type aspirin 81 mg chewable tablet 81 mg PO QAM 04/23/18 12/28/20 History belatacept 250 mg intravenous 1 dose IV MONTHLY 04/23/18 12/28/20 History solution carvedilol 25 mg tablet 37.5 mg PO QAM 04/23/18 12/28/20 History fluticasone propionate 50 2 spray INTRANASAL DAILY PRN 04/23/18 12/28/20 History mcg/actuation nasal spray,suspension (Flonase Allergy Relief) furosemide 20 mg tablet 20 mg PO QAM 04/23/18 12/28/20 History gabapentin 100 mg capsule 100 mg PO BID 04/23/18 12/28/20 History levothyroxine 50 mcg tablet 50 mcg PO QAM 04/23/18 12/28/20 History magnesium oxide 400 mg PO BID 04/23/18 12/28/20 History omeprazole 40 mg capsule,delayed 40 mg PO QAM 04/23/18 12/28/20 History release prednisone 5 mg tablet 5 mg PO QAM 04/23/18 12/28/20 History sodium bicarbonate 650 mg tablet 650 mg PO QAM 04/23/18 12/28/20 History sumatriptan succinate 50 mg tablet 1 tab PO UD PRN 04/23/18 12/28/20 History tacrolimus 1 mg capsule, 1 mg PO BID 04/23/18 12/28/20 History immediate-release carvedilol 25 mg tablet 25 mg PO QPM 12/28/20 12/28/20 History oxycodone-acetaminophen 5 mg-325 1 tab PO Q6 PRN 12/28/20 12/28/20 History mg tablet hydralazine 25 mg PO QID 12/29/20 12/29/20 History Patient History Medical History (Updated 12/29/20 @ 05:51 by Serafin Echavarria MD) Anemia in chronic kidney disease Chronic back pain Chronic steroid use GERD (gastroesophageal reflux disease) HLD (hyperlipidemia) HTN (hypertension) Hypothyroidism Migraine SIRS (systemic inflammatory response syndrome) Sleep apnea no device currently Surgical History History of bilateral tubal ligation History of section History of cholecystectomy History of colonoscopy History of esophagogastroduodenoscopy (EGD) History of kidney transplant 08/28/2016 @ [facility] [place] (right side) functions at only 17%--d/t ESRD History of laparoscopy History of tonsillectomy and adenoidectomy History of tooth extraction History of wisdom tooth extraction Family History Grandmother (Paternal) Family history of diabetes mellitus Grandmother (Maternal) Family history of diabetes mellitus Family hx of colon cancer Mother Family hx of colon cancer Other No family history of adverse response to anesthesia Social History Smoking Status: Former smoker Second Hand Exposure: No; Do You Dip or Chew Tobacco: No; Tobacco Cessation Education Requested by Patient: No Hx Alcohol Use: No Hx Substance Use: No Preferred Language: Wolof Communication Ability: Effective Biomedical Engineering Internship Required: No Beliefs That Will Affect Care: None marital status: Current Living Situation: Spouse Current Living Situation Comment: Lives with and daughter and her family How many Children do You have: 1 Other Information That Helps Us Care for You: No Feels Safe at Home: Yes Assistive Devices: None Review of Systems Review of Systems: All systems reviewed & are unremarkable except as noted in HPI & below Physical Exam Physical Exam: Physical Exam: Constitutional: appearance over nourished Ears, Nose, Mouth and Throat: mucous membranes moist, no injection and skin normal, eyes normal Cardiovascular: normal S-1 and S-2 and regular rate and rhythm Respiratory: course breath sounds Musculoskeletal: non pitting peripheral edema and decreased distal pulses Skin: no stigmata of neurocutaneous disease noted and normal and intact Eyes: extraocular muscles intact (EOMI) and pupils equal, round and reactive to light (PERRL) NEUROLOGIC EXAMINATION: Mental status: Alert and interactive Oriented to full date and location Oriented to person Speech fluent with no evidence of aphasia Cranial Nerves smile eye brow raise symmetric Reflexes: Deep tendon reflexes were symmetrical and graded 2/5. Sensory: light cool touch intact Coordination: finger to nose no bi pass Gait/Stance: Posture lying in bed Motor: Negative for pronator drift of out stretched arms with eyes closed. Strength: hand lead shipper biceps triceps bilaterally 5/5, hip flex plantar flex ext 5/5 Results & Data ([facility]) Vital Signs (Past 12 Hours) Vital Signs Temp Pulse Pulse Resp BP Pulse Ox 12/29/20 08:01 36.4 C L 98 H 18 142/62 H 96 12/29/20 08:00 93 H 12/29/20 03:14 36.6 C 18 173/89 H 95 12/28/20 23:32 77 12/28/20 22:49 36.6 C 18 175/98 H 94 Laboratory Results Abnormal lab results 12/28/20 12/28/20 12/28/20 Range/Units 17:16 17:16 17:16 RBC (4.2-5.4) M/uL Hgb (12.0-16.0) g/dL Hct (37-47) % MCHC 31.5 L (32-36) g/dL RDW Std Deviation 46.7 H (36.4-46.3) fL Lymph # (Auto) 1.06 L (1.2-3.4) K/uL Jackson # (Auto) 0.78 H (0.11-0.59) K/uL Chloride 114 H (98-107) mmol/L Carbon Dioxide (21-32) mmol/L BUN 32 H (7-18) mg/dl Creatinine 3.30 H (0.6-1.2) mg/dl BUN/Creatinine Ratio 9.7 L (10-20) Glucose 116 H (70-99) mg/dl AST 11 L (15-37) U/L Total Protein 6.0 L (6.4-8.2) gm/dl Albumin 3.3 L (3.4-5.0) gm/dl TSH 0.156 L (0.300-4.500) uIu/ml Urine Protein (Negative) Urine Glucose (UA) (Negative) Urine WBC (Auto) (0-5) /hpf U Epithel Cells (Auto) (0-5) /lpf 12/29/20 12/29/20 12/29/20 Range/Units 01:35 06:10 06:10 RBC 4.13 L (4.2-5.4) M/uL Hgb 11.5 L (12.0-16.0) g/dL Hct 36.5 L (37-47) % MCHC 31.5 L (32-36) g/dL RDW Std Deviation (36.4-46.3) fL Lymph # (Auto) 0.58 L (1.2-3.4) K/uL Jackson # (Auto) (0.11-0.59) K/uL Chloride 114 H (98-107) mmol/L Carbon Dioxide 18 L (21-32) mmol/L BUN 36 H (7-18) mg/dl Creatinine 3.40 H (0.6-1.2) mg/dl BUN/Creatinine Ratio (10-20) Glucose 178 H (70-99) mg/dl AST (15-37) U/L Total Protein (6.4-8.2) gm/dl Albumin (3.4-5.0) gm/dl TSH (0.300-4.500) uIu/ml Urine Protein 3+ H (Negative) Urine Glucose (UA) 1+ H (Negative) Urine WBC (Auto) 10-30 H (0-5) /hpf U Epithel Cells (Auto) >30 H (0-5) /lpf Diagnostic Findings CT head-No acute intracranial hemorrhage, evidence of acute territorial infarction, or other acute intracranial disease process.
--- NOTE | 2020-12-29 12:16 | Consultation Report ---
NEPHROLOGY CONSULTATION NOTE DATE OF SERVICE: 12/29/2020 REASON FOR CONSULTATION: Hypertensive crisis in a kidney transplant patient with CKD V. 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 Her current transplant is failing and she is already at CKD stage V with GFR consistently less than 15 with a creatinine in the low to mid 3s as an outpatient. I saw her in my clinic last time in 09/2020. Since then, she has also had an AV fistula done in preparation for dialysis. As for this admission, she came to the hospital yesterday evening. She was told by her PCP to go to the Emergency for further management after an MRI was done, which showed abnormal findings including microhemorrhages. She has been having issues with high blood pressure lately. Although the last time I saw her in my clinic, she had a completely normal blood pressure. She claims she absolutely takes her blood pressure medicine as prescribed. Her systolic blood pressure was more than 200 in the Emergency yesterday, but this morning, her blood pressure is completely normal at 140/60, even though she has really not received anything special blood pressure medicine-burton. ALLERGIES: LEVOFLOXACIN. MEDICATIONS: Home medication list was reviewed in detail and is as per the medicine reconciliation list and the H and P. As for her blood pressure, she takes carvedilol 37.5 mg in the morning and 25 in the evening. She takes Lasix 20 daily, hydralazine 25 mg 4 times a day. For transplant, she is on a monthly belatacept infusion, which is actually due today as well as prednisone 5 mg and tacrolimus 1 mg twice daily. 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 FAMILY HISTORY: Positive for diabetes. No renal disease or dialysis in the family. SOCIAL HISTORY: She is a former smoker. She lives with her and a daughter. REVIEW OF SYSTEMS: She was having headache for the last few days, for which she actually got the MRI, which triggered admission for further management. Denies nausea, vomiting, chest pain, shortness of breath, orthopnea, PND, or lower extremity edema. PHYSICAL EXAMINATION: GENERAL: A middle-aged white female who is slightly obese. She is not in any respiratory distress. She does appear anxious, but comfortable otherwise. VITAL SIGNS: Blood pressure is 142/62, pulse rate 98, temperature 36.4, 96% on room air, respiratory rate 18. HEENT: Mucous membrane is moist. NECK: Supple. No jugular venous distention. CHEST: Bilaterally clear to auscultation. CARDIOVASCULAR: S1 and S2 regular. ABDOMEN: Soft, nontender. EXTREMITIES: Show slight obesity-related edema, otherwise unremarkable. LABORATORY TEST: Creatinine is 3.4, BUN is 36, sodium 140, potassium 4.9, chloride 114, CO2 of 18, calcium 9.3, hemoglobin 11.5. CT head shows no acute intracranial hemorrhage. Chest x-ray, no acute finding. ASSESSMENT AND PLAN: The patient is a 65-year-old female who was admitted because of headache and abnormal MRI findings showing microhemorrhage. I have been consulted because of hypertensive crisis in a patient with chronic kidney disease V and failing kidney transplant. 1. Status post donor renal transplant in 08/2016 with a failing kidney transplant. 2. 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 3. Hypertensive crisis, for which I have been consulted. RECOMMENDATIONS: 1. I am not quite sure why her blood pressure dropped from such a high reading yesterday to essentially normal blood pressure this morning. She received one dose of labetalol injection, which I doubt is enough to cause such profound difference in blood pressure. 2. Increase carvedilol to 50 mg twice daily. 3. She feels hydralazine is making her headache a lot worse. We will decrease the dose of hydralazine to 25 mg 3 times a day. In any case, it is next to impossible to have good compliance with hydralazine as a 4 times a day drug. 4. If her blood pressure gets higher again, we will add a low-dose amlodipine at 2.5 mg. 5. Given that she is now CKD stage V, I believe she needs a little more diuretics than what she is getting now, so we will increase the dose of Lasix to 40 mg daily. 6. She is very close to needing dialysis again and has started the preparation including creation of fistula in 10/2020. 7 Renal transplant meds to continue same as home dose. her belatacept infusion will be done after discharge from Hospital. Continue Prograf and Low dose prednisone I will continue to follow. Job ID: [id number] MTDD
[2020-12-29] MEDS: hydrALAZINE HCL 25 MG TAB PO SCH ×2 (14:33→20:40)
[2020-12-29] MEDS: PROMETHAZINE HCL 12.5 MG in SODIUM CHLORIDE 0.9% 50 ML IV PRN ×2 (14:57→20:40)
[2020-12-29] MEDS: FUROSEMIDE 40 MG TAB PO SCH (16:23)
[2020-12-29] MEDS: FAMOTIDINE 20 MG in SYRINGE 3 ML IV SCH (20:39)
[2020-12-29] MEDS: SODIUM BICARBONATE 650 MG TAB PO SCH (20:40)
[2020-12-29] MEDS ORDERED: carvediloL 25 MG TAB PO SCH (21:00)
[2020-12-29] MEDS ORDERED: amLODIPine BESYLATE 5 MG TAB PO SCH (23:40)
[2020-12-30] MEDS ORDERED: carvediloL 12.5 MG TAB PO SCH (03:40)
[2020-12-30] MEDS: LEVOTHYROXINE SODIUM 50 MCG TABLET PO SCH (05:51)
[2020-12-30] MEDS ORDERED: OMEPRAZOLE 20 MG CAPCR PO SCH (06:00)
[2020-12-30 07:14] LABS: Hemoglobin 11.1 g/dL (12.0-16.0); Mean Corpuscular Hgb Conc 31.7 g/dL (32-36); Mean Corpuscular Volume 88.4 fL (80-100); Mean Platelet Volume 9.4 fL (7.4-10.4); Platelet Count 165 K/uL (130-400); RDW Coefficient of Variation 13.8 % (11.5-14.5); RDW Standard Deviation 44.6 fL (36.4-46.3); Red Blood Count 3.96 M/uL (4.2-5.4); White Blood Count 9.31 K/uL (4.8-10.8)
[2020-12-30 07:42] LABS: Calcium 8.9 mg/dl (8.5-10.1); Creatinine Clr Calc Pharmacy 20.9 ml/min; Est GFR (African American) 16.2 ml/min; Est GFR (Non-African American) 13.9 ml/min; Magnesium 2.1 mg/dl (1.8-2.4); Phosphorus 3.5 mg/dl (2.5-4.9); Potassium 4.6 mmol/L (3.5-5.1)
[2020-12-30] MEDS: FUROSEMIDE 40 MG TAB PO SCH (08:09)
[2020-12-30] MEDS: TACROLIMUS 1 MG CAP PO SCH (08:10)
[2020-12-30] MEDS: GABAPENTIN 100 MG CAP PO SCH (08:10)
[2020-12-30] MEDS: FAMOTIDINE 20 MG in SYRINGE 3 ML IV SCH (08:11)
[2020-12-30] MEDS: hydrALAZINE HCL 25 MG TAB PO SCH ×2 (09:06→13:48)
[2020-12-30] MEDS: SODIUM BICARBONATE 650 MG TAB PO SCH (09:06)
[2020-12-30] MEDS: predniSONE 5 MG TAB PO SCH (09:06)
--- NOTE | 2020-12-30 11:15 | Nephrology Progress Note ---
Date of Service December 30, 2020 Assessment & Plan Admission and Anticipated Discharge Date Admission Date: December 28, 2020 Subjective BP continues to be a challenge. PHYSICAL EXAMINATION: GENERAL: A middle-aged white female who is slightly obese. She is not in any respiratory distress. She does appear anxious, but comfortable otherwise. VITAL SIGNS: Blood pressure is 142/62, pulse rate 98, temperature 36.4, 96% on room air, respiratory rate 18. HEENT: Mucous membrane is moist. NECK: Supple. No jugular venous distention. CHEST: Bilaterally clear to auscultation. CARDIOVASCULAR: S1 and S2 regular. ABDOMEN: Soft, nontender. EXTREMITIES: Show slight obesity-related edema, otherwise unremarkable. LABORATORY TEST: Creatinine is 3.2, ASSESSMENT AND PLAN: The patient is a 65-year-old female who was admitted because of headache and abnormal MRI findings showing microhemorrhage. I have been consulted because of hypertensive crisis in a patient with chronic kidney disease V and failing kidney transplant. 1. Status post donor renal transplant in 08/2016 with a failing kidney transplant. 2. 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 3. Hypertensive crisis, for which I have been consulted. RECOMMENDATIONS: 1. carvedilol 37.5 mg twice daily. 3. She feels hydralazine is making her headache a lot worse. We will decrease the dose of hydralazine to 25 mg 3 times a day. In any case, it is next to impossible to have good compliance with hydralazine as a 4 times a day drug. 4. Increase amlodipine to 5 at bedtime 5. Given that she is now CKD stage V, I believe she needs a little more diuretics than what she is getting now, so we will increase the dose of diuretics even further and change to Lasix to 80 mg daily. 6. She is very close to needing dialysis again and has started the preparation including creation of fistula in 10/2020. Current creat at baseline 7 Renal transplant meds to continue same as home dose. her belatacept infusion will be done after discharge from Hospital. Continue Prograf and Low dose prednisone Results & Data ([facility]) Vital Signs (Past 12 Hours) Vital Signs Temp Pulse Pulse Resp BP Pulse Ox 12/30/20 08:00 77 12/30/20 07:56 37 C 77 18 165/76 H 94 12/30/20 03:23 36.3 C L 77 18 178/92 H 95 12/30/20 00:07 97 H 12/29/20 23:34 36.8 C 78 18 181/85 H 95
--- NOTE | 2020-12-30 11:29 | Electrocardiogram Report ---
Test Reason : Blood Pressure : / mmHG Vent. Rate : 078 BPM Atrial Rate : 078 BPM P-R Int : 176 ms QRS Dur : 102 ms QT Int : 408 ms P-R-T Axes : 056 006 026 degrees QTc Int : 465 ms Normal sinus rhythm Inferior infarct , age undetermined Cannot rule out Anterior infarct , age undetermined Abnormal ECG When compared with ECG of 22-FEB-2016 16:23, No significant change was found Confirmed by Vcitor Hugo Lopez ([id number]) on 12/30/2020 11:29:02 AM Referred By: Kenneth Butt Confirmed By:Victor Hugo Lopez
[2020-12-30] MEDS ORDERED: FUROSEMIDE 40 MG TAB PO ONE (11:30)
[2020-12-30] MEDS: ACETAMINOPHEN 325 MG TAB PO PRN (12:10)
--- NOTE | 2020-12-30 13:37 | Hospitalist Progress Note ---
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 H/O Migraine headache -Was on Imitrex Neurology consulted, recommend to discontinue Imitrex in vsculopathic pt is risk for stroke increases -continue gabapentin Chronic microvascular change on brain MRI as per neurology Appreciate neurology recommendations [place] (CPAP noncompliance), patient awaiting schedule for updated outpatient sleep study Outpatient sleep study Hypothyroidism TSH noted to be low with normal free T4 Continue levothyroxine Needs outpatient thyroid function tests in 4 to 6 weeks Steroid-induced hyperglycemia, possible prediabetes hemoglobin A1c of 5.19 December 2019 past tobacco abuse DVT prophylaxis. SCDs Code Status Full code Admission and Anticipated Discharge Date Admission Date: December 28, 2020 Subjective Patient is seen and examined at bedside States feeling a lot better today Headache, diarrhea much improved Heartburn improved as well Denies any chest pain, shortness of, dizziness, nausea, abdominal pain Discussed with nephrology today Review of Systems Review of Systems: All systems reviewed & are unremarkable except as noted in Subjective Physical Exam Physical Exam: Physical Exam: Vitals signs as noted above General Appearance:Obese, no apparent distress Head: normocephalic, Atraumatic Eyes: normal inspection, EOMI Neck: supple, Trachea midline Respiratory/Chest: Normal breath sounds, CTA Cardiovascular: S1, S2, No murmur Abdomen/GI:Soft, Non tender, Bowel sounds present Extremities/Musculoskeletal:normal inspection, Chronic LLE edema Neurologic/Psych:AAOX3, grossly no focal neurological deficits Skin: normal color, warm Results & Data Results & Data ([facility]) Vital Signs (Past 12 Hours) Vital Signs Temp Pulse Pulse Resp BP Pulse Ox 12/30/20 11:33 37.4 C 85 18 172/91 H 96 12/30/20 08:00 77 12/30/20 07:56 37 C 77 18 165/76 H 94 12/30/20 03:23 36.3 C L 77 18 178/92 H 95 Laboratory Results Short CBC 12/30/20 Range/Units 06:54 WBC 9.31 (4.8-10.8) K/uL Hgb 11.1 L (12.0-16.0) g/dL Hct 35.0 L (37-47) % Plt Count 165 (130-400) K/uL BMP 12/30/20 06:54 Sodium 138 Potassium 4.6 Chloride 111 H Carbon Dioxide 21 BUN 44 H Creatinine 3.34 H Glucose 116 H Calcium 8.9
--- NOTE | 2020-12-30 13:46 | Discharge Summary ---
Date of Service December 30, 2020 Admission HPI Per Admitting Provider History obtained from patient, family, and records. 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 Last confinement February 2016 for abdominal peritonitis secondary to peritoneal dialysis catheter infection. Patient seen at PCPs office 3 weeks ago for daily headache symptoms for about 3 to 4 months. Imitrex partially helping. SBP 1 30-1 80s at home. Patient compliant with home meds. Denies unusual stress. No chest pain, no S OB, no unusual fluid retention. SBP at PCPs office 160s at time of visit. Outpatient MRI requested by PCP done a few days ago. Study showed abnormal susceptibility artifact within white matter of bilateral frontal lobes likely representing 2 foci of microhemorrhage.. Scattered periventricular and subcortical white matter T2 FLAIR hyper and densities are nonspecific and likely represent chronic microvascular ischemia sequelae. Differential considerations include trauma, demyelinating pathology, infection or inflammatory etiology. Patient directed to ER for evaluation after PCP conferred with neurologist. Highest SBP at the ER 200s. Patient given Labetalol at the ER. MEDICAL HISTORY: As above. SURGERIES: section, tubal ligation, cholecystectomy, vascular procedures, renal biopsy, kidney transplant FAMILY HISTORY: Colon cancer, heart disease, and diabetes. PERSONAL AND SOCIAL HISTORY: Past tobacco abuse. No chronic intake of alcoholic beverages. 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 Admission Exam Per Admitting Provider Physical Exam Physical Exam: GENERAL: Comfortable, obese, no respiratory distress SKIN: Normal color, warm HEENT: Bespectacled, [place] palpebral conjunctivae, no ptosis, moist buccal mucosa NECK : Supple, short neck, no tenderness CHEST : CTA, no tenderness HEART : RRR, no obvious murmurs ABDOMEN: Some distention, nontender EXTREMITIES : Minimal LE swelling , no LE tenderness, no other conspicuous deformities noted NEUROLOGIC : Coherent, no facial asymmetry, no other gross focality Principal Diagnosis Hypertensive crisis Migraine Hypothyroidism Discharge Data Allergies Allergy/AdvReac Type Severity Reaction Status Date / Time levofloxacin AdvReac Severe C-DIFF Verified 12/28/20 19:41 Consultations 12/28/20 19:01 ED Decision to Admit Stat 12/28/20 22:37 Consult Nephrology Routine 12/29/20 07:09 Consult Neurology Routine Ordered Studies 12/28/20 17:36 CT head/brain wo con Stat Hospital Course (1) Hypertensive crisis: Hypertensive crisis In setting of Tacrolimus/steroid immunosuppression regimen for failed kidney graft transplantation 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 H/O Migraine headache -Was on Imitrex Neurology consulted, recommend to discontinue Imitrex in vsculopathic pt is risk for stroke increases -continue gabapentin Chronic microvascular change on brain MRI as per neurology Appreciate neurology recommendations [place] (CPAP noncompliance), patient awaiting schedule for updated outpatient sleep study Outpatient sleep study Hypothyroidism TSH noted to be low with normal free T4 Continue levothyroxine Needs outpatient thyroid function tests in 4 to 6 weeks Steroid-induced hyperglycemia, possible prediabetes hemoglobin A1c of 5.19 December 2019 past tobacco abuse DVT prophylaxis. SCDs Code Status Full code Total Time Total Time Spent Total Time Spent (In Minutes): 35 minutes Discharge Plan Discharge Items Patient Disposition: Home - Self-Care Reason For Visit: HTN CRISIS Discharge Diagnosis: Hypertensive crisis Migraine Hypothyrodism Activity: Resume your previous activity Exercise/Sports: Gradually increase as tolerated Non-emergency contact: Primary Care Provider and Jacquard Lace Weaver Call non-emergency contact if: you have any medication questions, your symptoms worsen, your pain is concerning for you and you have a fever Follow-up/Referrals: Kenneth Butt MD [Primary Care Provider] - (Date & Time 01/06/2021 10:20 AM Provider Josef Taylor PA-C Department General Internal Medicine [facility] ) Meera Simon PA-C [Physician Underwriting Support Specialist] - (Date & Time 02/19/2021 11:20 AM Provider Meera Simon PA-C Department Neurology [facility] ) Diet: Heart Healthy Addtl Attending Provider Instructions: Follow-up with your primary care physician Dr. Butt on 01/06/2021 10:20 AM Follow-up with your neurologist Meera Simon PA-C on 02/19/2021 11:20 AM Follow-up with your canvas cutter machine as needed. ----Get outpatient sleep study as advised to rule out sleep apnea. ----Get thyroid function test TSH, free T4 in 4 to 6 weeks and follow-up with your primary care physician. Seek immediate medical attention if your symptoms reoccur or worsen Please take all medications as instructed on discharge list below. Please call if you have any questions or problems. You can reach a [facility] hospitalist on duty at [facility] 24 hours a day by calling [phone] Pending Studies at Discharge: No Stand-Alone Forms: My [facility] Jimmy Fairly, Smoking Cessation Medications and DC Order Prescriptions: New amlodipine [Norvasc] 5 mg Tablet 5 mg PO HS Qty: 30 RF: 0 furosemide 80 mg Tablet 80 mg PO QAM Qty: 30 RF: 0 Continued prednisone 5 mg Tablet 5 mg PO QAM RF: 0 omeprazole 40 mg Capsule,Delayed Release(Dr/Ec) 40 mg PO QAM RF: 0 sodium bicarbonate 650 mg Tablet 650 mg PO QAM RF: 0 levothyroxine 50 mcg Tablet 50 mcg PO QAM RF: 0 aspirin 81 mg Tablet,Chewable 81 mg PO QAM RF: 0 gabapentin 100 mg Capsule 100 mg PO BID RF: 0 fluticasone propionate [Flonase Allergy Relief] 50 mcg/actuation [place],Suspension 2 spray INTRANASAL DAILY PRN (Reason: Allergy Symptoms) RF: 0 tacrolimus 1 mg Capsule 1 mg PO BID RF: 0 belatacept 250 mg Recon Soln 1 dose IV MONTHLY RF: 0 magnesium oxide 400 mg Capsule 400 mg PO BID RF: 0 oxycodone-acetaminophen 5-325 mg tablet 1 tab PO Q6 PRN (Reason: Pain) RF: 0 Changed carvedilol 25 mg Tablet 37.5 mg PO BID 30 Days Qty: 90 RF: 0 hydralazine 25 mg tablet 25 mg PO TID Qty: 0 RF: 0 Discontinued sumatriptan succinate 50 mg Tablet 1 tab PO UD PRN (Reason: Migraine Headache) RF: 0 furosemide 20 mg Tablet 20 mg PO QAM RF: 0 carvedilol 25 mg tablet 25 mg PO QPM RF: 0 Discharge Orders: Discharge Order (Routine); Ordered 12/30/20 Ordered By: Albert Hays Admission Data Admit Date/Time: 12/28/20 21:21 Attending Provider: Albert Hays Admit Provider: Serafin Echavarria Primary Care Provider: Kenneth Butt Other Providers: Serafin Echavarria ; Paulo Roldan ; Ajith Ryder
[2020-12-30] MEDS ORDERED: amLODIPine BESYLATE 5 MG TAB PO SCH (21:00)
[2020-12-31] MEDS ORDERED: FUROSEMIDE 80 MG TAB PO SCH (09:00)
[2020-12-31] MEDS ORDERED: FAMOTIDINE 20 MG TAB PO SCH (09:00)
== END 2020-12-30 15:30 | disposition home or self-care (01) ==
LOC: ED 14:00 → 2S 14:00 → SUATTDRO 21:21 → 2S 22:17

== ENCOUNTER 2021-05-17 15:10 | Inpatient (IN) ==
[2021-05-17] MEDS ORDERED: guaiFENesin 600 MG TABCR PO STA (16:23)
[2021-05-17] MEDS ORDERED: ALBUT/IPRATROP 3MG/0.5MG NEB 3 ML VIAL NEB STA (16:23)
[2021-05-17 16:40] LABS: Basophils # (auto) 0.03 K/uL (0-0.2); Basophils % (auto) 0.3 %; Eosinophils # (auto) 0.15 K/uL (0-0.5); Eosinophils % (auto) 1.7 %; Hematocrit (blood only) 36.2 % (37-47); Hemoglobin 11.7 g/dL (12.0-16.0); Immature Granulocytes # (auto) 0.03 K/uL (0.00-0.02); Immature Granulocytes % (auto) 0.3 %; Lymphocytes # (auto) 0.73 K/uL (1.2-3.4); Mean Corpuscular Hemoglobin 27.9 pg (25-34); Mean Corpuscular Hgb Conc 32.3 g/dL (32-36); Mean Corpuscular Volume 86.4 fL (80-100); Monocytes # (auto) 1.37 K/uL (0.11-0.59); Monocytes % (auto) 15.1 %; Neutrophils # (auto) 6.76 K/uL (1.4-6.5); Neutrophils % (auto) 74.6 %; Platelet Count 206 K/uL (130-400); RDW Coefficient of Variation 13.7 % (11.5-14.5); RDW Standard Deviation 43.2 fL (36.4-46.3); Red Blood Count 4.19 M/uL (4.2-5.4); White Blood Count 9.07 K/uL (4.8-10.8)
[2021-05-17 16:59] LABS: Troponin I < 0.03 ng/ml (0-0.04)
--- NOTE | 2021-05-17 17:00 | XRay Report ---
XR chest 1V portable CLINICAL HISTORY: Chest Pain. COMPARISON STUDY: 12/28/2020 TECHNIQUE: 1 view of the chest FINDINGS: Single frontal view of the chest demonstrates the heart size to be enlarged. There is a decreased ins piratory effort with elevation of the hemidiaphragms and crowding of the bronchovascular markings at the lung bases and centrally. The lungs are clear of alveolar opacities. There is no evidence for ple ural effusion. There is no evidence for vascular congestion. There is no acute osseous pathology. A P ort-A-Cath is in place. IMPRESSION: 1. There is a decreased inspiratory effort with otherwise no acute chest disease. ACT 112: Negative or not required by law. Electronically signed by: Galo Holliday M.D. 05/17/2021 4:58 PM
[2021-05-17 17:15] LABS: Alanine Aminotransferase 11 U/L (7-52); Albumin Globulin Ratio 1.5 (0.9-2); Albumin Level 3.7 gm/dl (3.4-5.0); Alkaline Phosphatase 53 U/L (34-104); Anion Gap 11 (3-11); Aspartate Aminotransferase 14 U/L (13-39); BUN Creatinine Ratio 9.6 (10-20); Bilirubin,Total 0.8 mg/dl (0.2-1.0); Blood Urea Nitrogen 64 mg/dl (6-23); Calcium 11.9 mg/dl (8.5-10.1); Carbon Dioxide 22 mmol/L (21-32); Chloride 104 mmol/L (98-107); Creatinine Clr Calc Pharmacy 10.3 ml/min; Est GFR (Non-African American) 6.1 ml/min; Globulin 2.5 gm/dl (2.5-4.0); Glucose 105 mg/dl (70-99(Fasting)); Lipase 60 U/L (11-82); Magnesium 2.6 mg/dl (1.7-2.4); Phosphorus 5.1 mg/dl (2.5-4.9); Potassium 4.1 mmol/L (3.5-5.1); Sodium 137 mmol/L (136-145); Total Protein 6.2 gm/dl (6.0-8.3)
[2021-05-17 17:27] LABS: INR 1.1 (0.9-1.1); Prothrombin Time 11.4 Seconds (9.0-12.0)
--- NOTE | 2021-05-17 17:37 | Emergency Department Note ---
Impression & Plan Hypoxia, CKD (chronic kidney disease), Dyspnea on minimal exertion ED Provider Note NAME: JESUS CAO AGE: 65 SEX: F ARRIVES VIA: Ambulance INFORMANT: Patient ED PROVIDER(S): Ángel Bee MD CHIEF COMPLAINT: SOB, referred. PLAN: Disposition: Admit MEDICAL DECISION MAKING: The patient is a pleasant 65-year-old woman with a past medical history of CKD not on dialysis but with AV fistula dialysis is required who presents to the emergency department for several weeks of ongoing shortness of breath with mild cough and congestion with clear sputum.She was seen by pcp and was noted to be hypoxia to 80s on RA and was referred to ED. She reports she was seen by her kidney doctor several weeks ago and was prescribed an antibiotic but denied any improvement in her symptoms. She reports her shortness of breath is with exertion and denies shortness of breath when lying supine. She denies any nausea, vomiting, diarrhea. She denies any urinary symptoms. The patient had been tested for COVID-19 and this was negative per her report. On arrival the patient is chronically ill-appearing but no acute distress, afebrile with stable vital signs. Her O2 saturation is is mid 80s on RA and 92% on 2 liters nasal cannula. She appears hypervolemic. EKG without overt acute ischemia. CXR negative for acute cardiopulmonary p rocess. WBC and platelets wnl. H/H similar to prior. Chemistry without acidosis. Cr 6.6 without recent for comparison though increased from 3.3 in december. Electrolytes unremarkable. LFTs without significant abnormality. Troponin negative/undetectable. Covid-19 RNA, NAAT negative. Treatment initiated on arrival with duoneb and mucinex however still with O2 requirement, which may be related to patient's worsening renal failure. Patient agrees with plan for admission. Case was discussed with Dr. Mcnamara, [facility] hospitalist, who will evaluate the patient for admission. Triage Nursing notes reviewed and agree them. Prior medical records reviewed Vital Signs: reviewed and remarkable for no significant abnormalities Differential diagnosis: Reactive airway disease, pneumonia, pneumothorax, COPD, CHF, infections, cardiac ischemia, pulmonary embolism, musculoskeletal, gastrointestinal, as well as other pathologies. ER treatment provided: See below. Diagnostics interpreted by me: ECG: Normal sinus rhythm, 79 bpm, no ectopy, no overt ST elevation or depression, QTC 454, QRS 108 Cardiac Monitoring: An order for continuous cardiac monitoring was placed and demonstrated Normal sinus rhythm, 79 bpm, no ectopy. Laboratory studies: See below Imaging studies: See below Consultation(s): Case was discussed with Dr. Mcnamara, [facility] hospitalist, who will evaluate the patient for admission. HPI: The patient is a pleasant 65-year-old woman with a past medical history of CKD not on dialysis but with AV fistula dialysis is required who presents to the emergency department for several weeks of ongoing shortness of breath with mild cough and congestion with clear sputum.She was seen by pcp and was noted to be hypoxia to 80s on RA and was referred to ED. She reports she was seen by her kidney doctor several weeks ago and was prescribed an antibiotic but denied any improvement in her symptoms. She reports her shortness of breath is with exertion and denies shortness of breath when lying supine. She denies any nausea, vomiting, diarrhea. She denies any urinary symptoms. The patient had been tested for COVID-19 and this was negative per her report. ROS: See above HPI for pertinent positives & negatives. A total of 10 systems reviewed and were otherwise negative. VITALS:See Below PHYSICAL EXAMINATION: GENERAL: Awake, alert, chronically ill-appearing, in no distress HENT: Normocephalic, atraumatic. Oropharynx unremarkable. EYES: Normal conjunctiva. Sclera non-icteric. NECK: Supple. No nuchal rigidity. FROM. No JVD. RESPIRATORY: Diminished at bases, otherwise, clear to auscultation. CARDIAC: Regular rate, normal rhythm. Extremities warm and well perfused. Pulses equal. LUE AV fistula with palpable thrill. ABDOMEN: Soft, non-distended. No tenderness to palpation. No rebound or guarding. No masses. RECTAL: Deferred. MUSCULOSKELETAL: Chest examination reveals no tenderness. The back is symmetrical on inspection without obvious abnormality. There is no CVA tenderness to palpation. No joint edema. LOWER EXTREMITIES: Calves are equal size bilaterally and non-tender. 1+ BLE edema. No discoloration. NEURO: Normal sensorium. No sensory or motor deficits noted. SKIN: No rash or jaundice noted. Ángel Bee MD Past Med/Surg History Medical History Anemia in chronic kidney disease AV fistula left upper arm (functioning), also one to left wrist, but does not function properly Chronic back pain Chronic steroid use ESRD (end stage renal disease) on dialysis not currently on dialysis per pt GERD (gastroesophageal reflux disease) HLD (hyperlipidemia) HTN (hypertension) Hypothyroidism Migraine Palpitations on occasion > saw Dr. Rivera recently, no further work up at this time per pt Sleep apnea no device currently > has apt soon to see about getting back on device Surgical History H/O cystoscopy History of appendectomy History of bilateral tubal ligation History of section x1 History of cholecystectomy History of colonoscopy History of esophagogastroduodenoscopy (EGD) History of kidney transplant 08/28/2016 @ [facility] (right side) functions at only 10%--d/t ESRD > follows with Dr. Roldan History of laparoscopy History of tonsillectomy and adenoidectomy History of tooth extraction History of vascular access device right chest History of wisdom tooth extraction Family History Grandmother (Paternal) Family history of diabetes mellitus Grandmother (Maternal) Family history of diabetes mellitus Family hx of colon cancer Mother Family hx of colon cancer Other No family history of adverse response to anesthesia Social History Smoking Status: Former smoker Tobacco Type: Cigarettes Second Hand Exposure: No; Hx Alcohol Use: No Hx Substance Use: No Preferred Language: Uzbek Communication Ability: Effective Remelt Worker Required: No Beliefs That Will Affect Care: None marital status: Current Living Situation: Spouse Current Living Situation Comment: Lives with and daughter and her family How many Children do You have: 1 Feels Safe at Home: Yes Assistive Devices: None Allergies Allergies Allergy/AdvReac Type Severity Reaction Status Date / Time levofloxacin AdvReac Severe C-DIFF Verified 05/17/21 16:47 Home Meds Home Medications Medication Instructions Recorded Confirmed aspirin 81 mg chewable tablet 81 mg PO QAM 04/23/18 05/17/21 belatacept 250 mg intravenous 1 dose IV MONTHLY 04/23/18 05/17/21 solution fluticasone propionate 50 2 spray INTRANASAL DAILY PRN 04/23/18 05/17/21 mcg/actuation nasal spray,suspension (Flonase Allergy Relief) gabapentin 100 mg capsule 100 mg PO BID 04/23/18 05/17/21 levothyroxine 50 mcg tablet 50 mcg PO QAM 04/23/18 05/17/21 magnesium oxide 400 mg PO BID 04/23/18 05/17/21 omeprazole 40 mg capsule,delayed 40 mg PO QAM 04/23/18 05/17/21 release prednisone 5 mg tablet 5 mg PO QAM 04/23/18 05/17/21 sodium bicarbonate 650 mg tablet 650 mg PO QAM 04/23/18 05/17/21 tacrolimus 1 mg capsule, 1 mg PO BID 04/23/18 05/17/21 immediate-release oxycodone-acetaminophen 5 mg-325 1 tab PO Q6 PRN 12/28/20 05/17/21 mg tablet hydralazine 25 mg tablet 25 mg PO TID 05/17/21 05/17/21 Previous Rx's Medication Instructions Recorded amlodipine 5 mg tablet (Norvasc) 5 mg PO HS #30 tab 12/30/20 carvedilol 25 mg tablet 37.5 mg PO BID 30 Days #90 tab 12/30/20 furosemide 80 mg tablet 80 mg PO QAM #30 tab 12/30/20 Results & Data (ED) Vital Signs Vital Signs - 24 hr 05/17/21 15:20 05/17/21 15:23 05/17/21 15:30 Temperature 36.8 C Temperature Source Oral Pulse Rate 77 81 78 Pulse Rate from SpO2 Sensor 81 78 Pulse Rhythm Regular Pulse Strength Normal Respiratory Rate 20 20 22 Respiratory Effort / Characteristics Non-Labored Respiratory Depth Normal Respiratory Pattern Regular Blood Pressure 146/69 H 135/77 Blood Pressure Mean 94 96 Pulse Oximetry 93 92 91 Oxygen Delivery Method Nasal Cannula Oxygen Flow Rate 3 Sepsis Recent Fever Within 48 Hours No Sepsis New/Unexplained Change in Mental Status N/A Sepsis Action Taken by Nursing No Action Required 05/17/21 16:00 05/17/21 16:30 05/17/21 17:00 Temperature Temperature Source Pulse Rate 79 79 79 Pulse Rate from SpO2 Sensor 79 79 80 Pulse Rhythm Pulse Strength Respiratory Rate 17 24 11 L Respiratory Effort / Characteristics Respiratory Depth Respiratory Pattern Blood Pressure 140/68 142/70 H 144/74 H Blood Pressure Mean 92 94 97 Pulse Oximetry 93 89 L 98 Oxygen Delivery Method Oxygen Flow Rate Sepsis Recent Fever Within 48 Hours Sepsis New/Unexplained Change in Mental Status Sepsis Action Taken by Nursing 05/17/21 17:30 05/17/21 18:00 05/17/21 18:30 Temperature Temperature Source Pulse Rate 80 82 81 Pulse Rate from SpO2 Sensor 81 83 83 Pulse Rhythm Pulse Strength Respiratory Rate 20 22 21 Respiratory Effort / Characteristics Respiratory Depth Respiratory Pattern Blood Pressure 151/78 H 154/83 H 144/81 H Blood Pressure Mean 102 106 102 Pulse Oximetry 92 92 94 Oxygen Delivery Method Nasal Cannula Nasal Cannula Nasal Cannula Oxygen Flow Rate Sepsis Recent Fever Within 48 Hours Sepsis New/Unexplained Change in Mental Status Sepsis Action Taken by Nursing 05/17/21 19:00 Temperature Temperature Source Pulse Rate 84 Pulse Rate from SpO2 Sensor 83 Pulse Rhythm Pulse Strength Respiratory Rate 22 Respiratory Effort / Characteristics Respiratory Depth Respiratory Pattern Blood Pressure 154/70 H Blood Pressure Mean 98 Pulse Oximetry 92 Oxygen Delivery Method Nasal Cannula Oxygen Flow Rate Sepsis Recent Fever Within 48 Hours Sepsis New/Unexplained Change in Mental Status Sepsis Action Taken by Nursing Laboratory Data Attestation: I reviewed the patient's lab results. Result diagrams: 05/17/21 22:05 05/17/21 22:05 Lab Results 05/17/21 05/17/21 05/17/21 Range/Units 15:57 15:57 17:03 WBC 9.07 (4.8-10.8) K/uL RBC 4.19 L (4.2-5.4) M/uL Hgb 11.7 L (12.0-16.0) g/dL Hct 36.2 L (37-47) % MCV 86.4 (80-100) fL MCH 27.9 (25-34) pg MCHC 32.3 (32-36) g/dL RDW Std Deviation 43.2 (36.4-46.3) fL RDW Coeff of [place] 13.7 (11.5-14.5) % Plt Count 206 (130-400) K/uL MPV 10.0 (7.4-10.4) fL Immature Gran % (Auto) 0.3 % Neut % (Auto) 74.6 % Lymph % (Auto) 8.0 % [place] % (Auto) 15.1 % Eos % (Auto) 1.7 % Baso % (Auto) 0.3 % Neut # (Auto) 6.76 H (1.4-6.5) K/uL Lymph # (Auto) 0.73 L (1.2-3.4) K/uL [place] # (Auto) 1.37 H (0.11-0.59) K/uL Eos # (Auto) 0.15 (0-0.5) K/uL Baso # (Auto) 0.03 (0-0.2) K/uL Immature Gran # (Auto) 0.03 H (0.00-0.02) K/uL PT (9.0-12.0) Seconds INR (0.9-1.1) D-Dimer (0-500) ug/L FEU Sodium 137 (136-145) mmol/L Potassium 4.1 (3.5-5.1) mmol/L Chloride 104 (98-107) mmol/L Carbon Dioxide 22 (21-32) mmol/L Anion Gap 11 (3-11) BUN 64 H (6-23) mg/dl Creatinine 6.66 H* (0.6-1.2) mg/dl Est Cr Clr Drug Dosing 10.3 ml/min Est GFR ( Amer) 7.0 ml/min Est GFR (Non-Af Amer) 6.1 ml/min BUN/Creatinine Ratio 9.6 L (10-20) Glucose 105 H (70-99(Fasting)) mg/dl Calcium 11.9 H (8.5-10.1) mg/dl Phosphorus 5.1 H (2.5-4.9) mg/dl Magnesium 2.6 H (1.7-2.4) mg/dl Total Bilirubin 0.8 (0.2-1.0) mg/dl AST 14 (13-39) U/L ALT 11 (7-52) U/L Alkaline Phosphatase 53 (34-104) U/L Troponin I < 0.03 (0-0.04) ng/ml B-Natriuretic Peptide (0-100) pg/ml Total Protein 6.2 (6.0-8.3) gm/dl Albumin 3.7 (3.4-5.0) gm/dl Globulin 2.5 (2.5-4.0) gm/dl Albumin/Globulin Ratio 1.5 (0.9-2) Lipase 60 (11-82) U/L SARS-CoV-2, RNA, NAAT NEGATIVE (NEGATIVE) 05/17/21 05/17/21 05/17/21 Range/Units 17:08 17:08 18:12 WBC (4.8-10.8) K/uL RBC (4.2-5.4) M/uL Hgb (12.0-16.0) g/dL Hct (37-47) % MCV (80-100) fL MCH (25-34) pg MCHC (32-36) g/dL RDW Std Deviation (36.4-46.3) fL RDW Coeff of [place] (11.5-14.5) % Plt Count (130-400) K/uL MPV (7.4-10.4) fL Immature Gran % (Auto) % Neut % (Auto) % Lymph % (Auto) % [place] % (Auto) % Eos % (Auto) % Baso % (Auto) % Neut # (Auto) (1.4-6.5) K/uL Lymph # (Auto) (1.2-3.4) K/uL [place] # (Auto) (0.11-0.59) K/uL Eos # (Auto) (0-0.5) K/uL Baso # (Auto) (0-0.2) K/uL Immature Gran # (Auto) (0.00-0.02) K/uL PT 11.4 (9.0-12.0) Seconds INR 1.1 (0.9-1.1) D-Dimer 350 (0-500) ug/L FEU Sodium (136-145) mmol/L Potassium (3.5-5.1) mmol/L Chloride (98-107) mmol/L Carbon Dioxide (21-32) mmol/L Anion Gap (3-11) BUN (6-23) mg/dl Creatinine (0.6-1.2) mg/dl Est Cr Clr Drug Dosing ml/min Est GFR ( Amer) ml/min Est GFR (Non-Af Amer) ml/min BUN/Creatinine Ratio (10-20) Glucose (70-99(Fasting)) mg/dl Calcium (8.5-10.1) mg/dl Phosphorus (2.5-4.9) mg/dl Magnesium (1.7-2.4) mg/dl Total Bilirubin (0.2-1.0) mg/dl AST (13-39) U/L ALT (7-52) U/L Alkaline Phosphatase (34-104) U/L Troponin I (0-0.04) ng/ml B-Natriuretic Peptide 217 H (0-100) pg/ml Total Protein (6.0-8.3) gm/dl Albumin (3.4-5.0) gm/dl Globulin (2.5-4.0) gm/dl Albumin/Globulin Ratio (0.9-2) Lipase (11-82) U/L SARS-CoV-2, RNA, NAAT (NEGATIVE) Administered Medications Amlodipine Besylate (Amlodipine Besylate 5 Mg Tab) 5 mg PO HS VU Stop: 06/16/21 21:53 Last Admin: 05/17/21 23:01 Dose: 5 mg Documented by: [id number] Benzonatate (Benzonatate 100 Mg Capsule) 100 mg PO TID VU Stop: 06/17/21 00:00 Last Admin: 05/18/21 00:11 Dose: 100 mg Documented by: [id number] Carvedilol (Carvedilol 12.5 Mg Tab) 37.5 mg PO BID VU Stop: 06/16/21 21:53 Last Admin: 05/17/21 22:59 Dose: 37.5 mg Documented by: [id number] Gabapentin (Gabapentin 100 Mg Cap) 100 mg PO BID VU Stop: 06/16/21 21:53 Last Admin: 05/17/21 23:00 Dose: 100 mg Documented by: [id number] Heparin Sodium (Porcine) (Heparin Sod 5,000 Unit/0.5 Ml Vial) 7,500 units SQ Q8 VU Stop: 06/16/21 21:59 Last Admin: 05/17/21 22:57 Dose: 7,500 units Documented by: [id number] Hydralazine HCl (Hydralazine Hcl 25 Mg Tab) 25 mg PO TID VU Stop: 06/16/21 21:53 Last Admin: 05/17/21 22:59 Dose: 25 mg Documented by: [id number] Tacrolimus (Tacrolimus 1 Mg Cap) 1 mg PO BID VU Stop: 06/16/21 21:53 Last Admin: 05/17/21 23:03 Dose: Not Given Documented by: [id number] Discontinued Medications Albuterol (Albut/Ipratrop 3mg/0.5mg Neb 3 Ml Vial) 3 ml NEB NOW STA; Protocol Stop: 05/17/21 16:24 Last Admin: 05/17/21 16:54 Dose: 3 ml Documented by: [id number] Benzonatate (Benzonatate 100 Mg Capsule) Confirm Administered Dose 100 mg .ROUTE .STK-MED ONE Stop: 05/18/21 00:04 Last Admin: 05/18/21 00:07 Dose: Not Given Documented by: [id number] Guaifenesin (Guaifenesin 600 Mg Tabcr) 600 mg PO NOW STA Stop: 05/17/21 16:24 Last Admin: 05/17/21 16:54 Dose: 600 mg Documented by: [id number] Sodium Chloride (Nss) 500 mls @ 500 mls/hr IV .Q1H VU Stop: 05/18/21 01:44 Last Admin: 05/18/21 01:43 Dose: 250 mls/hr Documented by: [id number] Imaging Data Radiologist's Impression: Chest X-Ray 05/17/21 16:20 XR chest 1V portable CLINICAL HISTORY: Chest Pain. COMPARISON STUDY: 12/28/2020 TECHNIQUE: 1 view of the chest FINDINGS: Single frontal view of the chest demonstrates the heart size to be enlarged. There is a decreased inspiratory effort with elevation of the hemidiaphragms and crowding of the bronchovascular markings at the lung bases and centrally. The lungs are clear of alveolar opacities. There is no evidence for pleural effusion. There is no evidence for vascular congestion. There is no acute osseous pathology. A Port-A-Cath is in place. IMPRESSION: 1. There is a decreased inspiratory effort with otherwise no acute chest disease. ACT 112: Negative or not required by law. Electronically signed by: Galo Holliday M.D. 05/17/2021 4:58 PM Discharge Plan Visit Data Chief Complaint: Shortness of Breath/Dyspnea ED Provider: Ángel Bee Discharge Problem: Hypoxia, CKD (chronic kidney disease), Dyspnea on minimal exertion Patient Disposition: Admitted As Inpatient Discharge Instructions Interventions: ED Discharge Assessment Last Done: 05/17/21 21:52 Discharge Problem: CKD (chronic kidney disease) Qualifiers: Chronic kidney disease stage: unspecified stage Qualified Code(s): N18.9 - Chronic kidney disease, unspecified
[2021-05-17 18:04] LABS: D Dimer 350 ug/L FEU (0-500)
--- NOTE | 2021-05-17 18:18 | History & Physical Report ---
Date of Service May 17, 2021 Assessment & Plan (1) Hypoxia: (2) Dyspnea on exertion: (3) Suspected pulmonary hypertension: (4) CKD (chronic kidney disease) stage 5, GFR less than 15 ml/min: (5) Essential hypertension: (6) Morbid obesity: Plan: 65 yo female with severe [place] not on CPAP, failed kidney transplant with CKD5, HTN, presented to the ED from PCP office for hypoxia and VU, for the past month worsening over the past week. Hypoxia/dyspnea on exertion- likely from pulmonary hypertension with shunting, due to not using CPAP for her severe [place]. Covid negative, CXR with no acute abnormality, BNP 217,chest clear except for bibasilar rales. D dimer negative making PE unlikely. Denies any echo done. Continue supplemental oxygen, monitor on tele, check echo. trop in am. Cardio eval as cardiac etiology likely for her VU as well as due to abnormal stress test. Might need right heart cath. Continue po lasix. 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 follow with nephro Dr Roldan. has AV fistula in place, no dialysis yet. continue CHEESE TESTER prograf and prednisone. Check prograf level. Morbid obesity with severe CHEYENNE- BMI 37. Severe [place] but never used CPAP. Weight loss and CPAP recommended. Hypertension- stable, continue coreg, amlodipine with hold parameters Abnormal stress test- no diagnostic cath was done due to CKD5. Cardio consulted. DVT prophyalxis: sc heparin Disposition: Medsurg with tele Full code- confirmed with patient at bedside History of Present Illness Chief Complaint: Hypoxia, shortness of breath Primary Care Provider: Kenneth Butt MD 65-year-old woman with history of ESRD secondary to glomerulonephritis status post failed renal transplant now with CKD5, hypertension, hypothyroidism, severe [place] not on CPAP presented to ED from hypoxia and dyspnea on exertion. Patient has been having shortness of breath with exertion for the past month, worsening over the past week. Her VU started few days prior to her seeing her PCP on 04/23, she did bring it to her PCP. Since then it has progressively worsened to the point that she gets short of breath even with mild activities like folding her clothes. Denies any orthopnea, PND. No fever or chills. Intermittent cough, clear phlegm which has increased lately. No h/o COPD or asthma. Past smoker left about 20 years ago. Denies any history of heart disease. No h/o CHF. She did have exercise treadmill stres test recently as part of her transplant evaluation and she was able to complete it. Her stress test was abnormal however no diagnostic cath was done due to her CKD5. She however denies any chest pain, chest tightness. She has been on lasix for years for her lower extremity edema. Denies any weight gain but infact weight loss due to poor appetite. She had her colonoscopy on Monday 3 days back where her oxygen saturation was in 80s. She was referred to her PCP today for evaluation where her oxygen saturation was down to 73% with ambulation and improved to 97% on 3 L. She was sent to the ED for further evaluation. In the ED, she is afebrile hem odynamically stable. She felt better on oxygen. Allergies Allergy/AdvReac Type Severity Reaction Status Date / Time levofloxacin AdvReac Severe C-DIFF Verified 05/17/21 16:47 Home Medications Medication Instructions Recorded Confirmed Type aspirin 81 mg chewable tablet 81 mg PO QAM 04/23/18 05/17/21 History belatacept 250 mg intravenous 1 dose IV MONTHLY 04/23/18 05/17/21 History solution fluticasone propionate 50 2 spray INTRANASAL DAILY PRN 04/23/18 05/17/21 History mcg/actuation nasal spray,suspension (Flonase Allergy Relief) gabapentin 100 mg capsule 100 mg PO BID 04/23/18 05/17/21 History levothyroxine 50 mcg tablet 50 mcg PO QAM 04/23/18 05/17/21 History magnesium oxide 400 mg PO BID 04/23/18 05/17/21 History omeprazole 40 mg capsule,delayed 40 mg PO QAM 04/23/18 05/17/21 History release prednisone 5 mg tablet 5 mg PO QAM 04/23/18 05/17/21 History sodium bicarbonate 650 mg tablet 650 mg PO QAM 04/23/18 05/17/21 History tacrolimus 1 mg capsule, 1 mg PO BID 04/23/18 05/17/21 History immediate-release oxycodone-acetaminophen 5 mg-325 1 tab PO Q6 PRN 12/28/20 05/17/21 History mg tablet amlodipine 5 mg tablet (Norvasc) 5 mg PO HS #30 tab 12/30/20 05/17/21 Rx carvedilol 25 mg tablet 37.5 mg PO BID 30 Days #90 tab 12/30/20 05/17/21 Rx furosemide 80 mg tablet 80 mg PO QAM #30 tab 12/30/20 05/17/21 Rx hydralazine 25 mg tablet 25 mg PO TID 05/17/21 05/17/21 History Past Med/Surg History Medical History Anemia in chronic kidney disease AV fistula left upper arm (functioning), also one to left wrist, but does not function properly Chronic back pain Chronic steroid use ESRD (end stage renal disease) on dialysis not currently on dialysis per pt GERD (gastroesophageal reflux disease) HLD (hyperlipidemia) HTN (hypertension) Hypothyroidism Migraine Palpitations on occasion > saw Dr. Rivera recently, no further work up at this time per pt Sleep apnea no device currently > has apt soon to see about getting back on device Surgical History H/O cystoscopy History of appendectomy History of bilateral tubal ligation History of section x1 History of cholecystectomy History of colonoscopy History of esophagogastroduodenoscopy (EGD) [place] [facility] [place] at [place] 10%--d/t ESRD > follows with Dr. Roldan History of laparoscopy History of tonsillectomy and adenoidectomy History of tooth extraction History of vascular access device right chest History of wisdom tooth extraction Family History Grandmother (Paternal) Family history of diabetes mellitus Grandmother (Maternal) Family history of diabetes mellitus Family hx of colon cancer Mother Family hx of colon cancer Other No family history of adverse response to anesthesia Social History Smoking Status: Former smoker Tobacco Type: Cigarettes Second Hand Exposure: No; Hx Alcohol Use: No Hx Substance Use: No Preferred Language: Ghanaian Communication Ability: Effective Refrigeration System Installer Required: No Beliefs That Will Affect Care: None marital status: Current Living Situation: Spouse Current Living Situation Comment: Lives with and daughter and her family How many Children do You have: 1 Feels Safe at Home: Yes Assistive Devices: None Review of Systems Review of Systems: All systems reviewed & are unremarkable except as noted in Subjective Physical Exam Physical Exam: General: Lying comfortably in bed, not in distress, on NC HEENT: EOMI, APPLE, MMM Chest: Clear breath sounds bilaterally with basilar rales CVS: Regular rate and rhythm, normal heart sounds, no murmur Abdomen: Soft, non tender, not distended, normal bowel sounds Neuro: Awake, alert, oriented, conversing well, non focal Extremities: No cyanosis, clubbing, trace edema Results & Data Results & Data ([facility]) Vital Signs (Past 12 Hours) Vital Signs Temp Pulse Resp BP Pulse Ox 05/17/21 17:00 79 11 L 144/74 H 98 05/17/21 16:30 79 24 142/70 H 89 L 05/17/21 16:00 79 17 140/68 93 05/17/21 15:30 78 22 135/77 91 05/17/21 15:23 81 20 92 05/17/21 15:20 36.8 C 77 20 146/69 H 93 Laboratory Results Short CBC 05/17/21 Range/Units 15:57 WBC 9.07 (4.8-10.8) K/uL Hgb 11.7 L (12.0-16.0) g/dL Hct 36.2 L (37-47) % Plt Count 206 (130-400) K/uL BMP 05/17/21 15:57 Sodium 137 Potassium 4.1 Chloride 104 Carbon Dioxide 22 BUN 64 H Creatinine 6.66 H* Glucose 105 H Calcium 11.9 H Cardiac Enzymes 05/17/21 Range/Units 15:57 Troponin I < 0.03 (0-0.04) ng/ml Liver Function 05/17/21 Range/Units 15:57 Total Bilirubin 0.8 (0.2-1.0) mg/dl AST 14 (13-39) U/L ALT 11 (7-52) U/L Alkaline Phosphatase 53 (34-104) U/L Albumin 3.7 (3.4-5.0) gm/dl Diagnostic Findings Chest X-Ray 05/17/21 16:20 XR chest 1V portable CLINICAL HISTORY: Chest Pain. COMPARISON STUDY: 12/28/2020 TECHNIQUE: 1 view of the chest FINDINGS: Single frontal view of the chest demonstrates the heart size to be enlarged. There is a decreased inspiratory effort with elevation of the hemidiaphragms and crowding of the bronchovascular markings at the lung bases and centrally. The lungs are clear of alveolar opacities. There is no evidence for pleural effusion. There is no evidence for vascular congestion. There is no acute osseous pathology. A Port-A-Cath is in place. IMPRESSION: 1. There is a decreased inspiratory effort with otherwise no acute chest disease. ACT 112: Negative or not required by law. Electronically signed by: Galo Holliday M.D. 05/17/2021 4:58 PM
[2021-05-17] MEDS ORDERED: FLUTICASONE PROPIONATE NA SPR 16 GM BTL PRN (21:54)
[2021-05-17 22:20] LABS: Hematocrit (blood only) 34.5 % (37-47); Hemoglobin 11.1 g/dL (12.0-16.0); Mean Corpuscular Hemoglobin 27.8 pg (25-34); Mean Corpuscular Hgb Conc 32.2 g/dL (32-36); Mean Corpuscular Volume 86.3 fL (80-100); Mean Platelet Volume 9.4 fL (7.4-10.4); Platelet Count 184 K/uL (130-400); RDW Coefficient of Variation 13.7 % (11.5-14.5); RDW Standard Deviation 43.5 fL (36.4-46.3); White Blood Count 7.33 K/uL (4.8-10.8)
[2021-05-17 22:48] LABS: BUN Creatinine Ratio 9.5 (10-20); Calcium 12.1 mg/dl (8.5-10.1); Est GFR (African American) 6.8 ml/min; Est GFR (Non-African American) 5.9 ml/min; Potassium 4.3 mmol/L (3.5-5.1)
[2021-05-17] MEDS: HEPARIN SOD 5,000 UNIT/0.5 ML VIAL SQ SCH (22:57)
[2021-05-17] MEDS: carvediloL 12.5 MG TAB PO SCH (22:59)
[2021-05-17] MEDS: hydrALAZINE HCL 25 MG TAB PO SCH (22:59)
[2021-05-17] MEDS: GABAPENTIN 100 MG CAP PO SCH (23:00)
[2021-05-17] MEDS: TACROLIMUS 1 MG CAP PO SCH ×2 (23:01→23:03)
[2021-05-17] MEDS: amLODIPine BESYLATE 5 MG TAB PO SCH (23:01)
[2021-05-18] MEDS ORDERED: BENZONATATE 100 MG CAPSULE ONE (00:03)
[2021-05-18] MEDS: BENZONATATE 100 MG CAPSULE PO SCH ×4 (00:11→20:24)
[2021-05-18] MEDS ORDERED: SODIUM CHLORIDE 0.9% 500 ML IV SCH (00:45)
[2021-05-18] MEDS: PANTOPRAZOLE 40MG TABLET PO SCH (05:28)
[2021-05-18] MEDS: guaiFENesin SUGAR FREE 200 MG/10 ML UDC PO PRN ×2 (05:29→20:02)
[2021-05-18] MEDS: LEVOTHYROXINE SODIUM 50 MCG TABLET PO SCH (05:30)
[2021-05-18] MEDS: HEPARIN SOD 5,000 UNIT/0.5 ML VIAL SQ SCH ×3 (05:30→21:38)
[2021-05-18 07:43] LABS: Appearance Urine Clear (Clear); Bacteria Urine Automated 4+ (Negative); Bilirubin Urine Negative (Negative); Blood Urine Negative (Negative); Color Urine Yellow; Glucose Urine UA Negative (Negative); Ketones Urine Negative (Negative); Leukocyte Esterase Urine 1+ (Negative); Nitrite Urine Negative (Negative); Protein Urine 2+ (Negative); RBC Urine Automated 0-4 /hpf (0-4); Specific Gravity Urine 1.011 (1.000-1.030); Urobilinogen Urine Negative (Negative); WBC Urine Automated >30 /hpf (0-5); pH Urine 5.5 (4.5-7.5)
[2021-05-18 08:28] LABS: Hematocrit (blood only) 34.3 % (37-47); Hemoglobin 10.9 g/dL (12.0-16.0); Mean Corpuscular Hemoglobin 27.6 pg (25-34); Mean Corpuscular Hgb Conc 31.8 g/dL (32-36); Mean Corpuscular Volume 86.8 fL (80-100); Mean Platelet Volume 9.7 fL (7.4-10.4); Platelet Count 186 K/uL (130-400); RDW Coefficient of Variation 13.7 % (11.5-14.5); RDW Standard Deviation 44.1 fL (36.4-46.3); Red Blood Count 3.95 M/uL (4.2-5.4); White Blood Count 8.12 K/uL (4.8-10.8)
[2021-05-18] MEDS: GABAPENTIN 100 MG CAP PO SCH ×2 (08:32→20:01)
[2021-05-18] MEDS: predniSONE 5 MG TAB PO SCH (08:33)
[2021-05-18] MEDS: FUROSEMIDE 80 MG TAB PO SCH (08:33)
[2021-05-18] MEDS: ASPIRIN 81 MG ECTAB PO SCH (08:34)
[2021-05-18] MEDS: hydrALAZINE HCL 25 MG TAB PO SCH ×3 (08:34→20:00)
[2021-05-18] MEDS: SODIUM BICARBONATE 650 MG TAB PO SCH (08:34)
[2021-05-18] MEDS: TACROLIMUS 1 MG CAP PO SCH ×2 (08:35→20:01)
[2021-05-18] MEDS: carvediloL 12.5 MG TAB PO SCH ×2 (08:35→19:59)
[2021-05-18 08:48] LABS: Troponin I < 0.03 ng/ml (0-0.04)
[2021-05-18 08:54] LABS: Anion Gap 10 (3-11); BUN Creatinine Ratio 9.9 (10-20); Blood Urea Nitrogen 65 mg/dl (6-23); Calcium 11.3 mg/dl (8.5-10.1); Carbon Dioxide 21 mmol/L (21-32); Chloride 107 mmol/L (98-107); Creatinine Clr Calc Pharmacy 10.9 ml/min; Est GFR (African American) 7.2 ml/min; Est GFR (Non-African American) 6.2 ml/min; Glucose 84 mg/dl (70-99(Fasting)); Sodium 138 mmol/L (136-145)
[2021-05-18] MEDS ORDERED: FUROSEMIDE 10 MG/ML 10 ML VIAL IV ONE (09:25)
--- NOTE | 2021-05-18 09:55 | Cardiology Consultation ---
Date of Consultation May 18, 2021 Assessment & Plan (1) CKD (chronic kidney disease): (2) Morbid obesity: (3) Suspected pulmonary hypertension: (4) CKD (chronic kidney disease) stage 5, GFR less than 15 ml/min: (5) Sleep apnea: I agree with nephrology that her symptoms are likely due to uremia. She is going to start dialysis today. Her chronic hypoxia is most likely due to sleep apnea and obesity hypoventilation syndrome. I would proceed with dialysis and follow her clinically but at present I do not believe any additional cardiac testing is indicated. History of Present Illness Attending Physician: Freddy Mcnamara MD History of Present Illness This is a 65-year-old female with a complex past medical history. The patient is status post renal transplant and unfortunately was lost to follow-up for several years and when she returned she had a failed allograft. Patient also has a history of sleep apnea but was noncompliant with CPAP at night. She states for the past 1 to 2 weeks she has noticed that even in an effort to walk a short distance she would become short of breath. She has lost weight and been anorexic. She has a family history of colon cancer and with her previous colonoscopy she did have some polyps removed. She was scheduled to have a follow-up routine colonoscopy and a presentation she was noted to be hypoxic on room air. According to the patient the colonoscopy was completed without incident. The patient has been followed by nephrology and is at stage V kidney disease. She was admitted to the hospital with fatigue, anorexia, dyspnea on exertion and other symptoms suggesting uremia. She is going to start hemodialysis today. In January of last year in preparation for a second renal transplant she underwent a pharmacologic nuclear stress test. That study was read as equivocal or possibly positive because of breast attenuation. My review of that study suggests that the abnormalities were most likely related to artifact from breast attenuation and not ischemia. Allergies Allergy/AdvReac Type Severity Reaction Status Date / Time levofloxacin AdvReac Severe C-DIFF Verified 05/17/21 16:47 Home Medications Medication Instructions Recorded Confirmed Type aspirin 81 mg chewable tablet 81 mg PO QAM 04/23/18 05/17/21 History belatacept 250 mg intravenous 1 dose IV MONTHLY 04/23/18 05/17/21 History solution fluticasone propionate 50 2 spray INTRANASAL DAILY PRN 04/23/18 05/17/21 History mcg/actuation nasal spray,suspension (Flonase Allergy Relief) gabapentin 100 mg capsule 100 mg PO BID 04/23/18 05/17/21 History levothyroxine 50 mcg tablet 50 mcg PO QAM 04/23/18 05/17/21 History magnesium oxide 400 mg PO BID 04/23/18 05/17/21 History omeprazole 40 mg capsule,delayed 40 mg PO QAM 04/23/18 05/17/21 History release prednisone 5 mg tablet 5 mg PO QAM 04/23/18 05/17/21 History sodium bicarbonate 650 mg tablet 650 mg PO QAM 04/23/18 05/17/21 History tacrolimus 1 mg capsule, 1 mg PO BID 04/23/18 05/17/21 History immediate-release oxycodone-acetaminophen 5 mg-325 1 tab PO Q6 PRN 12/28/20 05/17/21 History mg tablet amlodipine 5 mg tablet (Norvasc) 5 mg PO HS #30 tab 12/30/20 05/17/21 Rx carvedilol 25 mg tablet 37.5 mg PO BID 30 Days #90 tab 12/30/20 05/17/21 Rx furosemide 80 mg tablet 80 mg PO QAM #30 tab 12/30/20 05/17/21 Rx hydralazine 25 mg tablet 25 mg PO TID 05/17/21 05/17/21 History Patient History Medical History (Updated 05/19/21 @ 13:32 by Aranza Haider PA-C) Anemia in chronic kidney disease AV fistula left upper arm (functioning), also one to left wrist, but does not function properly Chronic back pain Chronic steroid use End stage renal disease ESRD (end stage renal disease) on dialysis not currently on dialysis per pt GERD (gastroesophageal reflux disease) HLD (hyperlipidemia) HTN (hypertension) Hypothyroidism Migraine Palpitations on occasion > saw Dr. Rivera recently, no further work up at this time per pt Sleep apnea no device currently > has apt soon to see about getting back on device Surgical History H/O cystoscopy History of appendectomy History of bilateral tubal ligation History of section x1 History of cholecystectomy History of colonoscopy History of esophagogastroduodenoscopy (EGD) History of kidney transplant 08/28/2016 @ [facility] [place] side) functions at only 10%--d/t ESRD > follows with Dr. Roldan History of laparoscopy History of tonsillectomy and adenoidectomy History of tooth extraction History of vascular access device right chest History of wisdom tooth extraction Family History Grandmother (Paternal) Family history of diabetes mellitus Grandmother (Maternal) Family history of diabetes mellitus Family hx of colon cancer Mother Family hx of colon cancer Other No family history of adverse response to anesthesia Social History Smoking Status: Former smoker Tobacco Type: Cigarettes Second Hand Exposure: No; Hx Alcohol Use: No Hx Substance Use: No Preferred Language: Lithuanian Communication Ability: Effective Obstetrical Nurse Required: No Beliefs That Will Affect Care: None marital status: Current Living Situation: Spouse Current Living Situation Comment: Lives with and daughter and her family How many Children do You have: 1 Other Information That Helps Us Care for You: No Feels Safe at Home: Yes Safety Concerns: Feels Safe At This Time Assistive Devices: Oxygen - Continuous Review of Systems Review of Systems: Review of Systems: See HPI for pertinent positives. All other 10 point review of systems are negative. Physical Exam Physical Exam: General: no acute distress and stated age Head: normocephalic, no masses, lesions, tenderness or abnormalities Eyes: conjunctiva are pink and non-injected, sclera clear Neck: supple, no adenopathy, no bruits, normal jugular venous pulse, no hepatojugular reflux Chest: normal shape and normal respiratory effort Lungs: clear to auscultation and percussion Cardiac Exam: - regular rate & rhythm, no murmurs gallops or rubs - normal S1, normal S2 Pulses: 2(+) throughout Abdomen: abdomen soft, non-tender, no abnormal masses and no hepatosplenomegaly Musculoskeletal: no gait disturbance, no joint inflammation, no deforming arthritis Extremities: no edema and no cyanosis Neuro: grossly normal exam Results & Data ([facility]) Vital Signs (Past 12 Hours) Vital Signs Temp Pulse Pulse Pulse Resp BP BP 05/18/21 07:16 36.7 C 77 20 130/67 05/18/21 04:36 36.7 C 78 20 132/71 05/18/21 01:13 79 05/18/21 01:10 37.0 C 78 20 138/70 05/18/21 00:49 77 22 141/77 H 05/17/21 22:35 77 18 132/69 Pulse Ox 05/18/21 07:16 92 05/18/21 04:36 92 05/18/21 01:13 05/18/21 01:10 92 05/18/21 00:49 92 05/17/21 22:35 92 Laboratory Results Laboratory Results - last 24 hr 05/17/21 05/17/21 05/17/21 15:57 15:57 17:03 WBC 9.07 RBC 4.19 L Hgb 11.7 L Hct 36.2 L MCV 86.4 MCH 27.9 MCHC 32.3 RDW Std Deviation 43.2 RDW Coeff of [place] 13.7 Plt Count 206 MPV 10.0 Immature Gran % (Auto) 0.3 Neut % (Auto) 74.6 Lymph % (Auto) 8.0 Henry % (Auto) 15.1 Eos % (Auto) 1.7 Baso % (Auto) 0.3 Neut # (Auto) 6.76 H Lymph # (Auto) 0.73 L Henry # (Auto) 1.37 H Eos # (Auto) 0.15 Baso # (Auto) 0.03 Immature Gran # (Auto) 0.03 H PT INR D-Dimer Sodium 137 Potassium 4.1 Chloride 104 Carbon Dioxide 22 Anion Gap 11 BUN 64 H Creatinine 6.66 H* Est Cr Clr Drug Dosing 10.3 Est GFR ( Amer) 7.0 Est GFR (Non-Af Amer) 6.1 BUN/Creatinine Ratio 9.6 L Glucose 105 H Calcium 11.9 H Phosphorus 5.1 H Magnesium 2.6 H Total Bilirubin 0.8 AST 14 ALT 11 Alkaline Phosphatase 53 Troponin I < 0.03 B-Natriuretic Peptide Total Protein 6.2 Albumin 3.7 Globulin 2.5 Albumin/Globulin Ratio 1.5 Lipase 60 25-OH Vitamin D Total PTH Intact PTH Related Protein Urine Color Urine Appearance Urine pH Ur Specific [place] Urine Protein Urine Glucose (UA) Urine Ketones Urine Blood Urine Nitrite Urine Bilirubin Urine Urobilinogen Ur Leukocyte Esterase Urine WBC (Auto) Urine RBC (Auto) U Hyaline Cast (Auto) U Epithel Cells (Auto) Urine Bacteria (Auto) SARS-CoV-2, RNA, NAAT NEGATIVE 05/17/21 05/17/21 05/17/21 17:08 17:08 18:12 WBC RBC Hgb Hct MCV MCH MCHC RDW Std Deviation RDW Coeff of [place] Plt Count MPV Immature Gran % (Auto) Neut % (Auto) Lymph % (Auto) Henry % (Auto) Eos % (Auto) Baso % (Auto) Neut # (Auto) Lymph # (Auto) Henry # (Auto) Eos # (Auto) Baso # (Auto) Immature Gran # (Auto) PT 11.4 INR 1.1 D-Dimer 350 Sodium Potassium Chloride Carbon Dioxide Anion Gap BUN Creatinine Est Cr Clr Drug Dosing Est GFR ( Amer) Est GFR (Non-Af Amer) BUN/Creatinine Ratio Glucose Calcium Phosphorus Magnesium Total Bilirubin AST ALT Alkaline Phosphatase Troponin I B-Natriuretic Peptide 217 H Total Protein Albumin Globulin Albumin/Globulin Ratio Lipase 25-OH Vitamin D Total PTH Intact PTH Related Protein Urine Color Urine Appearance Urine pH Ur Specific [place] Urine Protein Urine Glucose (UA) Urine Ketones Urine Blood Urine Nitrite Urine Bilirubin Urine Urobilinogen Ur Leukocyte Esterase Urine WBC (Auto) Urine RBC (Auto) U Hyaline Cast (Auto) U Epithel Cells (Auto) Urine Bacteria (Auto) SARS-CoV-2, RNA, NAAT 05/17/21 05/17/21 05/18/21 22:05 22:05 07:25 WBC 7.33 RBC 4.00 L Hgb 11.1 L Hct 34.5 L MCV 86.3 MCH 27.8 MCHC 32.2 RDW Std Deviation 43.5 RDW Coeff of [place] 13.7 Plt Count 184 MPV 9.4 Immature Gran % (Auto) Neut % (Auto) Lymph % (Auto) Henry % (Auto) Eos % (Auto) Baso % (Auto) Neut # (Auto) Lymph # (Auto) Henry # (Auto) Eos # (Auto) Baso # (Auto) Immature Gran # (Auto) PT INR D-Dimer Sodium 138 Potassium 4.3 Chloride 106 Carbon Dioxide 23 Anion Gap 9 BUN 65 H Creatinine 6.84 H* Est Cr Clr Drug Dosing 10.0 Est GFR ( Amer) 6.8 Est GFR (Non-Af Amer) 5.9 BUN/Creatinine Ratio 9.5 L Glucose 132 H Calcium 12.1 H* Phosphorus Magnesium Total Bilirubin AST ALT Alkaline Phosphatase Troponin I B-Natriuretic Peptide Total Protein Albumin Globulin Albumin/Globulin Ratio Lipase 25-OH Vitamin D Total PTH Intact PTH Related Protein Urine Color Yellow Urine Appearance Clear Urine pH 5.5 Ur Specific [place] 1.011 Urine Protein 2+ H Urine Glucose (UA) Negative Urine Ketones Negative Urine Blood Negative Urine Nitrite Negative Urine Bilirubin Negative Urine Urobilinogen Negative Ur Leukocyte Esterase 1+ H Urine WBC (Auto) >30 H Urine RBC (Auto) 0-4 U Hyaline Cast (Auto) 1-5 U Epithel Cells (Auto) 5-10 H Urine Bacteria (Auto) 4+ H SARS-CoV-2, RNA, NAAT 05/18/21 05/18/21 05/18/21 08:18 08:18 08:18 WBC 8.12 RBC 3.95 L Hgb 10.9 L Hct 34.3 L MCV 86.8 MCH 27.6 MCHC 31.8 L RDW Std Deviation 44.1 RDW Coeff of [place] 13.7 Plt Count 186 MPV 9.7 Immature Gran % (Auto) Neut % (Auto) Lymph % (Auto) Henry % (Auto) Eos % (Auto) Baso % (Auto) Neut # (Auto) Lymph # (Auto) Henry # (Auto) Eos # (Auto) Baso # (Auto) Immature Gran # (Auto) PT INR D-Dimer Sodium 138 Potassium 4.0 Chloride 107 Carbon Dioxide 21 Anion Gap 10 BUN 65 H Creatinine 6.54 H* D Est Cr Clr Drug Dosing 10.9 Est GFR ( Amer) 7.2 Est GFR (Non-Af Amer) 6.2 BUN/Creatinine Ratio 9.9 L Glucose 84 Calcium 11.3 H Phosphorus Magnesium Total Bilirubin AST ALT Alkaline Phosphatase Troponin I < 0.03 B-Natriuretic Peptide Total Protein Albumin Globulin Albumin/Globulin Ratio Lipase 25-OH Vitamin D Total PTH Intact 68.7 PTH Related Protein Urine Color Urine Appearance Urine pH Ur Specific [place] Urine Protein Urine Glucose (UA) Urine Ketones Urine Blood Urine Nitrite Urine Bilirubin Urine Urobilinogen Ur Leukocyte Esterase Urine WBC (Auto) Urine RBC (Auto) U Hyaline Cast (Auto) U Epithel Cells (Auto) Urine Bacteria (Auto) SARS-CoV-2, RNA, NAAT 05/18/21 05/18/21 08:18 08:18 WBC RBC Hgb Hct MCV MCH MCHC RDW Std Deviation RDW Coeff of [place] Plt Count MPV Immature Gran % (Auto) Neut % (Auto) Lymph % (Auto) Henry % (Auto) Eos % (Auto) Baso % (Auto) Neut # (Auto) Lymph # (Auto) Henry # (Auto) Eos # (Auto) Baso # (Auto) Immature Gran # (Auto) PT INR D-Dimer Sodium Potassium Chloride Carbon Dioxide Anion Gap BUN Creatinine Est Cr Clr Drug Dosing Est GFR ( Amer) Est GFR (Non-Af Amer) BUN/Creatinine Ratio Glucose Calcium Phosphorus Magnesium Total Bilirubin AST ALT Alkaline Phosphatase Troponin I B-Natriuretic Peptide Total Protein Albumin Globulin Albumin/Globulin Ratio Lipase 25-OH Vitamin D Total 60.2 PTH Intact PTH Related Protein Pending Urine Color Urine Appearance Urine pH Ur Specific [place] Urine Protein Urine Glucose (UA) Urine Ketones Urine Blood Urine Nitrite Urine Bilirubin Urine Urobilinogen Ur Leukocyte Esterase Urine WBC (Auto) Urine RBC (Auto) U Hyaline Cast (Auto) U Epithel Cells (Auto) Urine Bacteria (Auto) SARS-CoV-2, RNA, NAAT Diagnostic Findings EKG reveals a sinus rhythm with no acute changes Medications Administered Current Inpatient Medications Amlodipine Besylate (Amlodipine Besylate 5 Mg Tab) 5 mg PO HS [facility] Stop: 06/16/21 21:53 Last Admin: 05/17/21 23:01 Dose: 5 mg Documented by: Aspirin (Aspirin 81 Mg Ectab) 81 mg PO QAM [facility] Stop: 06/17/21 08:59 Last Admin: 05/18/21 08:34 Dose: 81 mg Documented by: Benzonatate (Benzonatate 100 Mg Capsule) 100 mg PO TID [facility] Stop: 06/17/21 00:00 Last Admin: 05/18/21 08:41 Dose: 100 mg Documented by: Carvedilol (Carvedilol 12.5 Mg Tab) 37.5 mg PO BID [facility] Stop: 06/16/21 21:53 Last Admin: 05/18/21 08:35 Dose: 37.5 mg Documented by: Fluticasone Propionate (Fluticasone Propionate Na Spr 16 Gm Btl) 2 sprays NA DAILY PRN PRN Reason: Allergy Symptoms Stop: 06/16/21 21:53 Furosemide (Furosemide 80 Mg Tab) 80 mg PO QAM [facility] Stop: 06/17/21 08:59 Last Admin: 05/18/21 08:33 Dose: 80 mg Documented by: Furosemide (Furosemide 10 Mg/Ml 10 Ml Vial) 100 mg IV ONE ONE Stop: 05/18/21 09:26 Gabapentin (Gabapentin 100 Mg Cap) 100 mg PO BID [facility] Stop: 06/16/21 21:53 Last Admin: 05/18/21 08:32 Dose: 100 mg Documented by: Guaifenesin (Guaifenesin Sugar Free 200 Mg/10 Ml Udc) 200 mg PO Q6H PRN PRN Reason: Cough Stop: 06/17/21 00:00 Last Admin: 05/18/21 05:29 Dose: 200 mg Documented by: Heparin Sodium (Porcine) (Heparin Sod 5,000 Unit/0.5 Ml Vial) 7,500 units SQ Q8 VU Stop: 06/16/21 21:59 Last Admin: 05/18/21 05:30 Dose: 7,500 units Documented by: Hydralazine HCl (Hydralazine Hcl 25 Mg Tab) 25 mg PO TID [facility] Stop: 06/16/21 21:53 Last Admin: 05/18/21 08:34 Dose: 25 mg Documented by: Levothyroxine Sodium (Levothyroxine Sodium 50 Mcg Tablet) 50 mcg PO DAILYBB [facility] Stop: 06/17/21 06:29 Last Admin: 05/18/21 05:30 Dose: 50 mcg Documented by: Oxycodone/Acetaminophen (Oxycodone/Acetaminophen 5mg/325mg Tab) 1 tab PO Q6 PRN PRN Reason: Pain Stop: 05/31/21 21:53 Pantoprazole Sodium (Pantoprazole 40mg Tablet) [facility] Stop: 06/17/21 08:59 Last Admin: 05/18/21 05:28 Dose: 40 mg Documented by: Prednisone (Prednisone 5 Mg Tab) 5 mg PO QAM [facility] Stop: 06/17/21 08:59 Last Admin: 05/18/21 08:33 Dose: 5 mg Documented by: Sodium Bicarbonate (Sodium Bicarbonate 650 Mg Tab) 650 mg PO QAM [facility] Stop: 06/17/21 08:59 Last Admin: 05/18/21 08:34 Dose: 650 mg Documented by: Tacrolimus (Tacrolimus 1 Mg Cap) 1 mg PO BID [facility] Stop: 06/16/21 21:53 Last Admin: 05/18/21 08:35 Dose: 1 mg Documented by: (1) CKD (chronic kidney disease) Chronic kidney disease stage: unspecified stage Qualified Code(s): N18.9 - Chronic kidney disease, unspecified
[2021-05-18] MEDS ORDERED: cefTRIAXone SODIUM 1,000 MG in DEXTROSE 5% 50 ML IV SCH (10:15)
[2021-05-18] MEDS: cefTRIAXone SODIUM 2,000 MG in DEXTROSE 5% 50 ML IV SCH (10:38)
--- NOTE | 2021-05-18 12:52 | Consultation Report ---
NEPHROLOGY CONSULTATION NOTE DATE OF SERVICE: 05/18/2021 REASON FOR CONSULTATION: Acute on chronic renal failure in a kidney transplant patient. HISTORY OF PRESENT ILLNESS: The patient is a 65-year-old female status post kidney transplant with a failing allograft and now with established CKD stage V. I see her in my clinic. She also has obstructive sleep apnea, not on CPAP, as well as hypertension and pulmonary hypertension. She was seen in the outpatient clinic and was found to be hypoxic and short of breath, after which she was sent over to the hospital for further management. She is negative for COVID test. Chest x-ray did not show any major findings. Her kidney function is worse than her baseline, which is already pretty low and she already has a GFR of less than 15 as an outpatient. Her serum calcium was also found to be high, which is also a new finding. She already has an AV fistula in place, which was done in 10/2020 and appears to be good. The patient has been having progressive loss of appetite, weight loss, weakness, progressive shortness of breath and fatigue for the last few weeks to months. Her appetite has dramatically decreased in the last 3 weeks. She has lost about 15 pounds in about a month without trying because of low appetite. Her labs were abnormal with a BUN of 65 and a creatinine of 6.84, calcium was high at 12.1 on admission, but it is already down to 11.3. As an outpatient, she does take vitamin D. It is not clear whether she takes a calcium supplement or not. She is currently getting belatacept infusion for transplant maintenance. Recently had a colonoscopy and was found to have some polyps, but no cancer. She was also recently seen by cardiology and she did have a nuclear test, but it was somewhat of a poor quality image because of artifacts and breast shadowing. The patient is agreeable to do dialysis. PAST MEDICAL AND SURGICAL HISTORY: Includes history of glomerulonephritis causing end-stage renal disease, status post kidney transplant, which is now failing, CKD stage V as an outpatient, obstructive sleep apnea - no CPAP, morbid obesity, hypertension, suspected pulmonary hypertension. ALLERGIES: Reviewed. MEDICATIONS: Home medication list was reviewed in detail. For transplant, she is currently getting belatacept infusion, tacrolimus 1 twice daily, magnesium 400 twice daily, carvedilol 37.5 twice daily, Lasix 80 daily, hydralazine 25 t.i.d., prednisone 5 daily. REVIEW OF SYSTEMS: As detailed in the HPI; unless stated otherwise, 12 systems reviewed and negative. SOCIAL HISTORY: She is and lives with her spouse. No smoking. No alcohol. PHYSICAL EXAMINATION: GENERAL: A middle-aged white female who is obese. She is not in any respiratory distress. Awake, alert, oriented x3, normal speech. CHEST: Bilateral decreased breath sounds, occasional crackles. CARDIOVASCULAR: S1 and S2 regular. ABDOMEN: Soft, nontender, obese. EXTREMITIES: Show no edema. LABORATORY TEST: Reviewed and shows a BUN of 65, creatinine of 6, sodium 138, potassium 4.0, bicarb 21, calcium 11.3 today, but it was 12.1 yesterday. Troponin negative. BNP 217. Vitamin D was high at 60. PTH is 68. PTH related protein pending. Chest x-ray unremarkable. ASSESSMENT AND PLAN: A 65-year-old female who is status post kidney transplant, already has chronic kidney disease V at baseline. The patient now presenting with what appears to be classic uremic symptoms of anorexia, loss of appetite, weight loss, fatigue, increasing shortness of breath, weakness. She already has an arteriovenous fistula in place in preparation for dialysis. At this point, I believe the patient has uremic symptoms with chronic kidney disease V, thus qualifying as end-stage renal disease. We will do her dialysis starting tomorrow. Tomorrow will be for 2 hours. She then can be arranged for outpatient dialysis. Given her insurance limitations and her hometown, she will have to be in [facility] and arrangements will be made prior to hospital discharge. Transplant--continue same Prograf and Pred 5. Job ID: [id number] [facility]
--- NOTE | 2021-05-18 15:51 | Electrocardiogram Report ---
Test Reason : Blood Pressure : / mmHG Vent. Rate : 079 BPM Atrial Rate : 079 BPM P-R Int : 192 ms QRS Dur : 108 ms QT Int : 396 ms P-R-T Axes : 037 030 031 degrees QTc Int : 454 ms Normal sinus rhythm Old Inferior infarct (cited on or before 28-DEC-2020) Abnormal ECG When compared with ECG of 28-DEC-2020 18:08, No significant change was found Confirmed by Hao Duran ([id number]) on 05/18/2021 3:51:01 PM Referred By: REFERRED SELF Confirmed By:Hao Duran
--- NOTE | 2021-05-18 16:04 | Hospitalist Progress Note ---
Date of Service May 18, 2021 Assessment & Plan (1) Hypoxia: (2) Dyspnea on exertion: (3) Suspected pulmonary hypertension: (4) CKD (chronic kidney disease) stage 5, GFR less than 15 ml/min: (5) Essential hypertension: (6) Morbid obesity: (7) UTI (urinary tract infection): (8) Hypercalcemia: Plan: 65 yo female with severe CHEYENNE not on CPAP, failed kidney transplant with CKD5, HTN, presented to the ED from PCP office for hypoxia and VU, for the past month worsening over the past week. Hypoxia/dyspnea on exertion- echo pending. Per cardio and nephro, likely uremic symptoms and hence plan for dialysis tomorrow. Likely she has pulmonary hypertension due to not using CPAP for her severe CHE[place]ENNE contributing to her symptoms of hypoxia and VU. Covid negative, CXR with no acute abnormality, BNP 217,chest clear except for bibasilar rales. D dimer negative making PE unlikely. Continue supplemental oxygen, she might need home oxygen at discharge. ESRD- progressed from CKD stage V with uremic symptoms. (history of ESRD due to glomerulonephritis status post transplant, failed)- Cr 6.5, Has AV fistula in place, plan for 1st dialysis tomorrow followed by 2nd the day after, then OP dialysis. continue NURSE AIDE prograf and prednisone. Morbid obesity with severe CHEYENNE- BMI 37. Severe CHEYENNE but never used CPAP. Weight loss and CPAP recommended. Hypertension- stable, continue coreg, amlodipine with hold parameters UTI- dysuric symptoms, UA reviewed. will start on rocephin pending culture results. D1/3 Hypercalcemia- Ca 11.3 today. PTH 68 inappropriately high, VIt D 60, PTHrp pending. likely from CKD. Given extra dose of iv lasix today. continue po lasix. Dialysis tomorrow. No need for IVF or other management now. Abnormal stress test- no diagnostic cath was done due to CKD5. Per cardio, abnormal stress test was related to artifact from breast attenuation and not ischemia.No additional cardiac testing indicated per cardio. DVT prophyalxis: sc heparin Disposition: Dialysis tomorrow and the day after and then can be discharged. Admission and Anticipated Discharge Date Admission Date: May 17, 2021 Subjective No new issues. Feels better with oxygen but felt short of breath while ambulating back from the bathroom. No chest pain, nausea, vomiting, fever or chills. States feels like she has UTI now. Physical Exam Physical Exam: General: Lying comfortably in bed, not in distress, on NC HEENT: EOMI, APPLE, MMM Chest: Clear breath sounds bilaterally with basilar rales CVS: Regular rate and rhythm, normal heart sounds, no murmur Abdomen: Soft, non tender, not distended, normal bowel sounds Neuro: Awake, alert, oriented, conversing well, non focal Extremities: No cyanosis, clubbing, trace edema Results & Data Results & Data ([facility]) Vital Signs (Past 12 Hours) Vital Signs Temp Pulse Pulse Resp BP BP Pulse Ox 05/18/21 15:11 36.5 C 77 19 153/75 H 91 05/18/21 14:19 81 05/18/21 11:16 36.7 C 74 20 148/73 H 91 05/18/21 07:16 36.7 C 77 20 130/67 92 05/18/21 06:13 83 05/18/21 04:36 36.7 C 78 20 132/71 92 Laboratory Results Short CBC 05/17/21 05/17/21 05/18/21 Range/Units 15:57 22:05 08:18 WBC 9.07 7.33 8.12 (4.8-10.8) K/uL Hgb 11.7 L 11.1 L 10.9 L (12.0-16.0) g/dL Hct 36.2 L 34.5 L 34.3 L (37-47) % Plt Count 206 184 186 (130-400) K/uL BMP 05/17/21 05/17/21 05/18/21 15:57 22:05 08:18 Sodium 137 138 138 Potassium 4.1 4.3 4.0 Chloride 104 106 107 Carbon Dioxide 22 23 21 BUN 64 H 65 H 65 H Creatinine 6.66 H* 6.84 H* 6.54 H* D Glucose 105 H 132 H 84 Calcium 11.9 H 12.1 H* 11.3 H Cardiac Enzymes 05/17/21 05/18/21 Range/Units 15:57 08:18 Troponin I < 0.03 < 0.03 (0-0.04) ng/ml Liver Function 05/17/21 Range/Units 15:57 Total Bilirubin 0.8 (0.2-1.0) mg/dl AST 14 (13-39) U/L ALT 11 (7-52) U/L Alkaline Phosphatase 53 (34-104) U/L Albumin 3.7 (3.4-5.0) gm/dl Urine 05/18/21 Range/Units 07:25 Urine Color Yellow Urine Appearance Clear (Clear) Urine pH 5.5 (4.5-7.5) Ur Specific [place] 1.011 (1.000-1.030) Urine Protein 2+ H (Negative) Urine Glucose (UA) Negative (Negative) Medications Administered Current Inpatient Medications Acetaminophen (Acetaminophen 325 Mg Tab) 650 mg PO Q4H PRN PRN Reason: pain Stop: 06/17/21 10:01 Amlodipine Besylate (Amlodipine Besylate 5 Mg Tab) 5 mg PO HS [facility] Stop: 06/16/21 21:53 Last Admin: 05/17/21 23:01 Dose: 5 mg Documented by: Aspirin (Aspirin 81 Mg Ectab) 81 mg PO QAM [facility] Stop: 06/17/21 08:59 Last Admin: 05/18/21 08:34 Dose: 81 mg Documented by: Benzonatate (Benzonatate 100 Mg Capsule) 100 mg PO TID [facility] Stop: 06/17/21 00:00 Last Admin: 05/18/21 13:26 Dose: 100 mg Documented by: Carvedilol (Carvedilol 12.5 Mg Tab) 37.5 mg PO BID [facility] Stop: 06/16/21 21:53 Last Admin: 05/18/21 08:35 Dose: 37.5 mg Documented by: Fluticasone Propionate (Fluticasone Propionate Na Spr 16 Gm Btl) 2 sprays NA DAILY PRN PRN Reason: Allergy Symptoms Stop: 06/16/21 21:53 Furosemide (Furosemide 80 Mg Tab) 80 mg PO QAM [facility] Stop: 06/17/21 08:59 Last Admin: 05/18/21 08:33 Dose: 80 mg Documented by: Gabapentin (Gabapentin 100 Mg Cap) 100 mg PO BID [facility] Stop: 06/16/21 21:53 Last Admin: 05/18/21 08:32 Dose: 100 mg Documented by: Guaifenesin (Guaifenesin Sugar Free 200 Mg/10 Ml Udc) 200 mg PO Q6H PRN PRN Reason: Cough Stop: 06/17/21 00:00 Last Admin: 05/18/21 05:29 Dose: 200 mg Documented by: Heparin Sodium (Porcine) (Heparin Sod 5,000 Unit/0.5 Ml Vial) 7,500 units SQ Q8 [facility] Stop: 06/16/21 21:59 Last Admin: 05/18/21 13:27 Dose: 7,500 units Documented by: Hydralazine HCl (Hydralazine Hcl 25 Mg Tab) 25 mg PO TID [facility] Stop: 06/16/21 21:53 Last Admin: 05/18/21 13:27 Dose: 25 mg Documented by: Ceftriaxone Sodium 2,000 mg/ (Dextrose) 70 mls @ 140 mls/hr IV Q24H [facility]; Protocol Stop: 05/23/21 10:14 Last Infusion: 05/18/21 11:23 Dose: Infused Documented by: Sodium Chloride (Nss 1000ml) 1,000 mls @ 0 mls/hr IV .Q0M PRN PRN Reason: For Hemodialysis Use ONLY Stop: 05/19/21 12:59 Levothyroxine Sodium (Levothyroxine Sodium 50 Mcg Tablet) 50 mcg PO DAILYBB [facility] Stop: 06/17/21 06:29 Last Admin: 05/18/21 05:30 Dose: 50 mcg Documented by: Miscellaneous (No Heparin In Dialysis) 1 ea N/A ONE ONE Stop: 05/19/21 07:01 Oxycodone/Acetaminophen (Oxycodone/Acetaminophen 5mg/325mg Tab) 1 tab PO Q6 PRN PRN Reason: Pain Stop: 05/31/21 21:53 Pantoprazole Sodium (Pantoprazole 40mg Tablet) 40 mg PO [facility] Stop: 06/17/21 08:59 Last Admin: 05/18/21 05:28 Dose: 40 mg Documented by: Pred[facility] ([facility] 5 Mg Tab) [facility] Stop: 06/17/21 08:59 Last Admin: 05/18/21 08:33 Dose: 5 mg Documented by: Sodium Bicarbonate (Sodium Bicarbonate 650 Mg Tab) [facility] Stop: 06/17/21 08:59 Last Admin: 05/18/21 08:34 Dose: 650 mg Documented by: Tacrolimus (Tacrolimus 1 Mg Cap) 1 mg PO BID [facility] Stop: 06/16/21 21:53 Last Admin: 05/18/21 08:35 Dose: 1 mg Documented by:
[2021-05-18] MEDS: ACETAMINOPHEN 325 MG TAB PO PRN (16:24)
[2021-05-18] MEDS: amLODIPine BESYLATE 5 MG TAB PO SCH (20:02)
[2021-05-19] MEDS: ACETAMINOPHEN 325 MG TAB PO PRN ×2 (01:53→19:42)
[2021-05-19] MEDS: LEVOTHYROXINE SODIUM 50 MCG TABLET PO SCH (05:47)
[2021-05-19] MEDS: HEPARIN SOD 5,000 UNIT/0.5 ML VIAL SQ SCH ×3 (05:47→21:22)
[2021-05-19] MEDS ORDERED: SODIUM CHLORIDE 0.9% 1000ML 1,000 ML IV PRN (07:00)
[2021-05-19 08:50] LABS: BUN Creatinine Ratio 10.6 (10-20); Calcium 11.8 mg/dl (8.5-10.1); Creatinine Clr Calc Pharmacy 10.7 ml/min; Est GFR (African American) 7.3 ml/min; Est GFR (Non-African American) 6.3 ml/min; Potassium 3.6 mmol/L (3.5-5.1)
[2021-05-19] MEDS: GABAPENTIN 100 MG CAP PO SCH ×2 (09:20→20:08)
[2021-05-19] MEDS: carvediloL 12.5 MG TAB PO SCH ×2 (09:20→20:08)
[2021-05-19] MEDS: guaiFENesin SUGAR FREE 200 MG/10 ML UDC PO PRN (09:20)
[2021-05-19] MEDS: ASPIRIN 81 MG ECTAB PO SCH (09:21)
[2021-05-19] MEDS: SODIUM BICARBONATE 650 MG TAB PO SCH (09:21)
[2021-05-19] MEDS: FUROSEMIDE 80 MG TAB PO SCH (09:22)
[2021-05-19] MEDS: TACROLIMUS 1 MG CAP PO SCH ×2 (09:22→20:08)
[2021-05-19] MEDS: hydrALAZINE HCL 25 MG TAB PO SCH ×3 (09:23→20:08)
[2021-05-19] MEDS: predniSONE 5 MG TAB PO SCH (09:23)
[2021-05-19] MEDS: PANTOPRAZOLE 40MG TABLET PO SCH (09:23)
[2021-05-19] MEDS: BENZONATATE 100 MG CAPSULE PO SCH ×3 (09:27→20:07)
[2021-05-19 09:44] LABS: Hepatitis B Surface Ab Quant 28.38 mIU/mL (>or=10mIU/mL Immune); Hepatitis B Surface Antibody Immune
[2021-05-19 09:53] LABS: Hepatitis B Surf Ag Rflx Conf Neg (Neg)
[2021-05-19] MEDS: cefTRIAXone SODIUM 2,000 MG in DEXTROSE 5% 50 ML IV SCH (09:53)
[2021-05-19 10:21] LABS: Hepatitis C IgG 13Yrs+Old_Rflx Neg (Neg)
--- NOTE | 2021-05-19 10:45 | Hospitalist Progress Note ---
Date of Service May 19, 2021 Assessment & Plan (1) Hypoxia: (2) Dyspnea on exertion: (3) Suspected pulmonary hypertension: (4) CKD (chronic kidney disease) stage 5, GFR less than 15 ml/min: (5) Essential hypertension: (6) Morbid obesity: (7) UTI (urinary tract infection): (8) Hypercalcemia: Plan: 65 yo female with severe CHEYENNE not on CPAP, failed kidney transplant with CKD5, HTN, presented to the ED from PCP office for hypoxia and VU, for the past month worsening over the past week. 1. Acute Hypoxic respiratory failure -O2 sat 86% on RA, currently on 3L NC -will need home oxygen assessment prior to discharge -likely due to untreated CHEYENNE and obesity hypoventilation syndrome 2. ESRD- progressed from CKD stage V with uremic symptoms. (history of ESRD due to glomerulonephritis status post transplant, failed) - Has AV fistula in place -continue EMERGENCY PHYSICIAN prograf and prednisone -Plan to initiate dialysis here, management per Nephrology. Patient will need OP dialysis. CM was notified 3. Morbid obesity with severe CHEYENNE- BMI 37. Severe CHEYENNE but never used CPAP -Ongoing weight loss counseling 4. HTN- - stable, continue coreg, amlodipine with hold parameters 5. UTI -Urine cultures +GNR. Continue ceftriaxone 6. Hypercalcemia- -Ca 11.3 -. PTH 68 inappropriately high, VIt D 60, PTHrp pending. -likely from CKD. s/p iv lasix yesterday. continue po lasix. -Dialysis later today 7. Abnormal OP stress test -no diagnostic cath was done due to CKD5. Per cardio, abnormal stress test was related to artifact from breast attenuation and not ischemia.No additional cardiac testing indicated per cardio. DVT prophyalxis: sc heparin Disposition: Needs OP dialysis to be arranged Admission and Anticipated Discharge Date Admission Date: May 17, 2021 Subjective Reports dyspnea with minimal movement Physical Exam Physical Exam: Obese, no acute distress, pleasant ENMT: normocephalic, atraumatic Neck: thick Respiratory: no stridor, no wheezing/rhonchi/rales, no accessory muscle use Breathing comfortably on 3L NC Cardiovascular: regular rate and rhythm, no murmurs/rubs/gallops Gastrointestinal (Abdomen): soft, non tender Musculoskeletal: no edema, no cyanosis or clubbing Neurologic: awake, although having difficulty answering some questions "My mind isn't all here", spontaneously moving extremities Results & Data Results & Data ([facility]) Vital Signs (Past 12 Hours) Vital Signs Temp Pulse Pulse Resp BP BP Pulse Ox 05/19/21 10:40 36.6 C 75 18 134/67 93 05/19/21 07:14 36.5 C 76 18 143/71 H 92 05/19/21 06:14 76 05/19/21 03:31 36.7 C 82 18 157/79 H 90 05/18/21 23:09 36.9 C 81 18 156/77 H 90 Laboratory Results [facility] 05/19/21 07:54 Sodium 136 Potassium 3.6 Chloride 103 Carbon Dioxide 23 BUN 68 H Creatinine 6.41 H* Glucose 85 Calcium 11.8 H Medications Administered Current Inpatient Medications Acetaminophen (Acetaminophen 325 Mg Tab) 650 mg PO Q4H PRN PRN Reason: pain Stop: 06/17/21 10:01 Last Admin: 05/19/21 01:53 Dose: 650 mg Documented by: Amlodipine Besylate (Amlodipine Besylate 5 Mg Tab) 5 mg PO HS [facility] Stop: 06/16/21 21:53 Last Admin: 05/18/21 20:02 Dose: 5 mg Documented by: Aspirin (Aspirin 81 Mg Ectab) 81 mg PO QAM [facility] Stop: 06/17/21 08:59 Last Admin: 05/19/21 09:21 Dose: 81 mg Documented by: Benzonatate (Benzonatate 100 Mg Capsule) 100 mg PO TID [facility]U Stop: 06/17/21 00:00 Last Admin: 05/19/21 09:27 Dose: 100 mg Documented by: Carvedilol (Carvedilol 12.5 Mg Tab) 37.5 mg PO BID [facility]U Stop: 06/16/21 21:53 Last Admin: 05/19/21 09:20 Dose: 37.5 mg Documented by: Fluticasone Propionate (Fluticasone Propionate Na Spr 16 Gm Btl) 2 sprays NA DAILY PRN PRN Reason: Allergy Symptoms Stop: 06/16/21 21:53 Furosemide (Furosemide 80 Mg Tab) 80 mg PO QAM [facility]U Stop: 06/17/21 08:59 Last Admin: 05/19/21 09:22 Dose: 80 mg Documented by: Gabapentin (Gabapentin 100 Mg Cap) 100 mg PO BID [facility]U Stop: 06/16/21 21:53 Last Admin: 05/19/21 09:20 Dose: 100 mg Documented by: Guaifenesin (Guaifenesin Sugar Free 200 Mg/10 Ml Udc) 200 mg PO Q6H PRN PRN Reason: Cough Stop: 06/17/21 00:00 Last Admin: 05/19/21 09:20 Dose: 200 mg Documented by: Heparin Sodium (Porcine) (Heparin Sod 5,000 Unit/0.5 Ml Vial) 7,500 units SQ Q8 [facility] Stop: 06/16/21 21:59 Last Admin: 05/19/21 05:47 Dose: 7,500 units Documented by: Hydralazine HCl (Hydralazine Hcl 25 Mg Tab) 25 mg PO TID [facility] Stop: 06/16/21 21:53 Last Admin: 05/19/21 09:23 Dose: 25 mg Documented by: Ceftriaxone Sodium 2,000 mg/ (Dextrose) 70 mls @ 140 mls/hr IV Q24H [facility]; Protocol Stop: 05/23/21 10:14 Last Infusion: 05/19/21 10:36 Dose: Infused Documented by: Sodium Chloride (Nss 1000ml) 1,000 mls @ 0 mls/hr IV .Q0M PRN PRN Reason: For Hemodialysis Use ONLY Stop: 05/19/21 12:59 Levothyroxine Sodium (Levothyroxine Sodium 50 Mcg Tablet) [facility] Stop: 06/17/21 06:29 Last Admin: 05/19/21 05:47 Dose: 50 mcg Documented by: Oxycodone/Acetaminophen (Oxycodone/Acetaminophen 5mg/325mg Tab) 1 tab PO Q6 PRN PRN Reason: Pain Stop: 05/31/21 21:53 Pantoprazole Sodium (Pantoprazole 40mg Tablet) [facility] Stop: 06/17/21 08:59 Last Admin: 05/19/21 09:23 Dose: 40 mg Documented by: Prednisone (Prednisone 5 Mg Tab) 5 mg PO QAM [facility] Stop: 06/17/21 08:59 Last Admin: 05/19/21 09:23 Dose: 5 mg Documented by: Sodium Bicarbonate (Sodium Bicarbonate 650 Mg Tab) [facility] Stop: 06/17/21 08:59 Last Admin: 05/19/21 09:21 Dose: 650 mg Documented by: Tacrolimus (Tacrolimus 1 Mg Cap) 1 mg PO BID [facility]U Stop: 06/16/21 21:53 Last Admin: 05/19/21 09:22 Dose: 1 mg Documented by:
--- NOTE | 2021-05-19 12:24 | Nephrology Progress Note ---
Date of Service May 19, 2021 Assessment & Plan Admission and Anticipated Discharge Date Admission Date: May 17, 2021 Subjective S----No new issues. Feels better. had Infiltration with the needle cannulation during dialysis today. PHYSICAL EXAMINATION: GENERAL: A middle-aged white female who is obese. She is not in any respiratory distress. Awake, alert, oriented x3, normal speech. CHEST: Bilateral decreased breath sounds, occasional crackles. CARDIOVASCULAR: S1 and S2 regular. ABDOMEN: Soft, nontender, obese. EXTREMITIES: Show no edema. LABORATORY TEST: Reviewed and shows findings consistent with ESRD. 2D echocardiogram reviewed and unremarkable ASSESSMENT AND PLAN: A 65-year-old female who is status post kidney transplant, already has chronic kidney disease V at baseline. The patient now presenting with what appears to be classic uremic symptoms of anorexia, loss of appetite, weight loss, fatigue, increasing shortness of breath, weakness. She already has an arteriovenous fistula in place in preparation for dialysis. At this point, I believe the patient has uremic symptoms with chronic kidney disease V, thus qualifying as end-stage renal disease. AV fistula did not work for cannulation today. Given this will ask vascular surgery to put tunneled dialysis catheter. She then can be arranged for outpatient dialysis. Given her insurance limitations and her hometown, she will have to be in [facility] and arrangements will be made prior to hospital discharge. Transplant--continue same Prograf and Pred 5. Results & Data ([facility]) Vital Signs (Past 12 Hours) Vital Signs Temp Pulse Pulse Resp BP BP Pulse Ox 05/19/21 10:40 36.6 C 75 18 134/67 93 05/19/21 07:14 36.5 C 76 18 143/71 H 92 05/19/21 06:14 76 05/19/21 03:31 36.7 C 82 18 157/79 H 90
--- NOTE | 2021-05-19 13:36 | Consultation ---
Date of Consultation May 19, 2021 Assessment & Plan (1) End stage renal disease: Pt with good LUE AVF, but inpt HD unit had trouble with initial attempts at access today. It has not yet been used. She does have R side infusaport, which limits access points for permcath insertion. Additionally, she appears to have varicosities across her chest and shoulders, concerning for more central venous stenosis. Will order BUE venous study to eval for subclavian v stenosis. Discussed with Dr Quintero, will plan for permcath insertion in OR tomorrow. Procedure, risks, benefits and alternatives discused with pt at Dr Quintero's request, she expresses understanding and agreement. History of Present Illness Reason for Consultation: ESRD Attending Physician: Michel Disla MD History of Present Illness 65 y f with multiple medical problems, inclduing CKD V, s/p allograft, HTN, CHEYENNE, hyperlipidemia, hypothyriodism, migraines, admitted with acute on chronic renal failure d/t failure of her allograft, seen in consultation today for insertion of permcath for HD. Pt states she had LUE AVF created at [facility] in 10/2020, and was told via telephone visit that it was ready to be used when she needed it. The inpt HD unit attempted to use her AVF today without success. She previously had L wrist avf created which failed. She has been on peritoneal diaysis and HD in past. Pt admits VU, but states she feels ok while at rest on oxygen. Admtis malaise, decreased appetite, fatigue, edema. Denies VACA, fever, chest pain, abd pain, N/V, rest pain, claudication, other complaints. Allergies Allergy/AdvReac Type Severity Reaction Status Date / Time levofloxacin AdvReac Severe C-DIFF Verified 05/17/21 16:47 Home Medications Medication Instructions Recorded Confirmed Type aspirin 81 mg chewable tablet 81 mg PO QAM 04/23/18 05/17/21 History belatacept 250 mg intravenous 1 dose IV MONTHLY 04/23/18 05/17/21 History solution fluticasone propionate 50 2 spray INTRANASAL DAILY PRN 04/23/18 05/17/21 History mcg/actuation nasal spray,suspension (Flonase Allergy Relief) gabapentin 100 mg capsule 100 mg PO BID 04/23/18 05/17/21 History levothyroxine 50 mcg tablet 50 mcg PO QAM 04/23/18 05/17/21 History magnesium oxide 400 mg PO BID 04/23/18 05/17/21 History omeprazole 40 mg capsule,delayed 40 mg PO QAM 04/23/18 05/17/21 History release prednisone 5 mg tablet 5 mg PO QAM 04/23/18 05/17/21 History sodium bicarbonate 650 mg tablet 650 mg PO QAM 04/23/18 05/17/21 History tacrolimus 1 mg capsule, 1 mg PO BID 04/23/18 05/17/21 History immediate-release oxycodone-acetaminophen 5 mg-325 1 tab PO Q6 PRN 12/28/20 05/17/21 History mg tablet amlodipine 5 mg tablet (Norvasc) 5 mg PO HS #30 tab 12/30/20 05/17/21 Rx carvedilol 25 mg tablet 37.5 mg PO BID 30 Days #90 tab 12/30/20 05/17/21 Rx furosemide 80 mg tablet 80 mg PO QAM #30 tab 12/30/20 05/17/21 Rx hydralazine 25 mg tablet 25 mg PO TID 05/17/21 05/17/21 History Patient History Medical History (Updated 05/19/21 @ 13:32 by Aranza Haider PA-C) Anemia in chronic kidney disease AV fistula left upper arm (functioning), also one to left wrist, but does not function properly Chronic back pain Chronic steroid use End stage renal disease ESRD (end stage renal disease) on dialysis not currently on dialysis per pt GERD (gastroesophageal reflux disease) HLD (hyperlipidemia) HTN (hypertension) Hypothyroidism Migraine Palpitations on occasion > saw Dr. Rivera recently, no further work up at this time per pt Sleep apnea no device currently > has apt soon to see about getting back on device Surgical History H/O cystoscopy History of appendectomy History of bilateral tubal ligation History of section x1 History of cholecystectomy History of colonoscopy History of esophagogastroduodenoscopy (EGD) [place] of [place] [facility] functions at only 10%--d/t ESRD > follows with Dr. Roldan History of laparoscopy History of tonsillectomy and adenoidectomy History of tooth extraction History of vascular access device right chest History of wisdom tooth extraction Family History Grandmother (Paternal) Family history of diabetes mellitus Grandmother (Maternal) Family history of diabetes mellitus Family hx of colon cancer Mother Family hx of colon cancer Other No family history of adverse response to anesthesia Social History Smoking Status: Former smoker Tobacco Type: Cigarettes Second Hand Exposure: No; Hx Alcohol Use: No Hx Substance Use: No Preferred Language: Ugandan Communication Ability: Effective Academic Program Specialist Required: No Beliefs That Will Affect Care: None marital status: Current Living Situation: Spouse Current Living Situation Comment: Lives with and daughter and her family How many Children do You have: 1 Other Information That Helps Us Care for You: No Feels Safe at Home: Yes Safety Concerns: Feels Safe At This Time Assistive Devices: Oxygen - Continuous Review of Systems Review of Systems: All systems reviewed & are unremarkable except as noted in HPI & below Physical Exam Constitutional: WD/WN, vitals as above + obese, cooperative and comfortable; not in distress ENMT: Ears: no hearing impairment Neck: trachea midline Respiratory: no respiratory distress Auscultation: + diminished lung sounds and + crackles Cardiovascular: Rate/Rhythm: regular rate and regular rhythm Vessels: posterior tibial pulses present, dorsalis pedis pulses present and radial pulses present; + abnormal peripheral pulses Extremities: normal capillary refill, + edema, + varicosities (across chest and shoulders, worse on L), + vascular access device (R chest infusaport) and + AV fistula (LUE AVF excellent thrill/bruit) Gastrointestinal (Abdomen): Inspection/Auscultation: normal bowel sounds; abdomen not distended Percussion/Palpation: abdomen soft; abdomen nontender Musculoskeletal: no cyanosis or clubbing, extremities motor strength 5/5 Skin: no rashes, warm and dry Neurologic: moves all extremities and awake; no focal motor deficits and not confused Psychiatric: A+Ox3, euthymic affect Results & Data ([facility]) Vital Signs (Past 12 Hours) Vital Signs Temp Pulse Pulse Resp BP BP Pulse Ox 05/19/21 10:40 36.6 C 75 18 134/67 93 05/19/21 07:14 36.5 C 76 18 143/71 H 92 05/19/21 06:14 76 05/19/21 03:31 36.7 C 82 18 157/79 H 90
--- NOTE | 2021-05-19 15:25 | Ultrasound Report ---
US venous doppler UE BI HISTORY: 65 years-old Female eval for venous stenosis right upper extremity pain COMPARISON: Chest radiograph 05/17/2021 TECHNIQUE: Multiple real-time sonographic images of the upper extremity deep venous structures were o btained assessing grayscale appearance, color and spectral flow FINDINGS: No DVT identified within the jugular, subclavian or axillary veins. There is a focal area of turbulen t flow within the proximal left subclavian vein with elevated peak systolic velocities measuring up t o 148 cm/s. No significant luminal narrowing identified. No extrinsic mass is seen. IMPRESSION: 1. No DVT. 2. Turbulent flow with elevated peak systolic velocities within the proximal left subclavian vein may represent venous stenosis, however no appreciable luminal narrowing is identified. ACT 112: Negative or not required by law. The above report was generated using voice recognition software. It may contain grammatical, syntax o r spelling errors. Electronically signed by: Siva Whitney M.D. 05/19/2021 3:24 PM
[2021-05-19] MEDS: PANTOprazole 40 MG TAB PO SCH (19:50)
[2021-05-19] MEDS: amLODIPine BESYLATE 5 MG TAB PO SCH (20:07)
[2021-05-20 04:06] LABS: Hepatitis A Antibody IgM NON-REACTIVE (NON-REACTIVE); Hepatitis B Core Antibody IgM NON-REACTIVE (NON-REACTIVE)
[2021-05-20] MEDS: HEPARIN SOD 5,000 UNIT/0.5 ML VIAL SQ SCH ×3 (05:52→21:00)
[2021-05-20] MEDS: LEVOTHYROXINE SODIUM 50 MCG TABLET PO SCH (05:53)
[2021-05-20] MEDS ORDERED: ceFAZolin 2000MG 2,000 MG/15 ML SYR IV SCH (06:00)
[2021-05-20] MEDS: ACETAMINOPHEN 325 MG TAB PO PRN ×2 (07:51→19:32)
[2021-05-20] MEDS: guaiFENesin SUGAR FREE 200 MG/10 ML UDC PO PRN (07:53)
[2021-05-20] MEDS: hydrALAZINE HCL 25 MG TAB PO SCH ×3 (07:54→21:01)
[2021-05-20] MEDS: TACROLIMUS 1 MG CAP PO SCH ×2 (07:54→21:01)
[2021-05-20] MEDS: GABAPENTIN 100 MG CAP PO SCH ×2 (07:54→20:59)
[2021-05-20] MEDS: predniSONE 5 MG TAB PO SCH (07:54)
[2021-05-20] MEDS: carvediloL 12.5 MG TAB PO SCH ×2 (07:54→21:00)
[2021-05-20] MEDS: FUROSEMIDE 80 MG TAB PO SCH (07:55)
[2021-05-20] MEDS: SODIUM BICARBONATE 650 MG TAB PO SCH (07:55)
[2021-05-20 08:11] LABS: Hematocrit (blood only) 33.9 % (37-47); Hemoglobin 10.9 g/dL (12.0-16.0); Mean Corpuscular Hemoglobin 27.7 pg (25-34); Mean Corpuscular Hgb Conc 32.2 g/dL (32-36); Mean Corpuscular Volume 86.3 fL (80-100); Mean Platelet Volume 9.4 fL (7.4-10.4); Platelet Count 187 K/uL (130-400); RDW Coefficient of Variation 13.7 % (11.5-14.5); RDW Standard Deviation 43.4 fL (36.4-46.3); Red Blood Count 3.93 M/uL (4.2-5.4); White Blood Count 6.03 K/uL (4.8-10.8)
[2021-05-20 09:14] LABS: Albumin Globulin Ratio 1.4 (0.9-2); Albumin Level 3.2 gm/dl (3.4-5.0); Bilirubin,Total 0.4 mg/dl (0.2-1.0); Calcium 11.6 mg/dl (8.5-10.1); Creatinine Clr Calc Pharmacy 10.4 ml/min; Est GFR (African American) 7.1 ml/min; Est GFR (Non-African American) 6.1 ml/min; Globulin 2.3 gm/dl (2.5-4.0); Potassium 3.7 mmol/L (3.5-5.1); Total Protein 5.5 gm/dl (6.0-8.3)
[2021-05-20] MEDS ORDERED: SODIUM CHLORIDE 0.9% 1000ML 1,000 ML IV PRN (09:24)
[2021-05-20] MEDS: ASPIRIN 81 MG ECTAB PO SCH (09:38)
[2021-05-20] MEDS: BENZONATATE 100 MG CAPSULE PO SCH ×3 (09:40→20:59)
[2021-05-20] MEDS: cefTRIAXone SODIUM 2,000 MG in DEXTROSE 5% 50 ML IV SCH (09:44)
--- NOTE | 2021-05-20 10:21 | Nephrology Progress Note ---
Date of Service May 20, 2021 Assessment & Plan Admission and Anticipated Discharge Date Admission Date: May 17, 2021 Subjective Subjective S----No new issues. Got SOB while wlking. She had Infiltration with the needle cannulation during dialysis yesterday. getting CVC today. PHYSICAL EXAMINATION: GENERAL: A middle-aged white female who is obese. She is not in any respiratory distress. Awake, alert, oriented x3, normal speech. CHEST: Bilateral decreased breath sounds, occasional crackles. CARDIOVASCULAR: S1 and S2 regular. ABDOMEN: Soft, nontender, obese. EXTREMITIES: Show no edema. LABORATORY TEST: Reviewed and shows findings consistent with ESRD. 2D echocardiogram reviewed and unremarkable ASSESSMENT AND PLAN: A 65-year-old female who is status post kidney transplant, already has chronic kidney disease V at baseline. The patient now presenting with what appears to be classic uremic symptoms of anorexia, loss of appetite, weight loss, fatigue, increasing shortness of breath, weakness. She already has an arteriovenous fistula in place in preparation for dialysis. At this point, I believe the patient has uremic symptoms with chronic kidney disease V, thus qualifying as end-stage renal disease. AV fistula did not work for cannulation. Given this vascular surgery to put tunneled dialysis catheter. She then can be arranged for outpatient dialysis. Given her insurance limitations and her hometown, she will have to be in [facility] and arrangements will be made prior to hospital discharge. Transplant--continue same Prograf and Pred 5.Stopped belatacept infusion from now. Hypercalcemia--PTH high for the high Ca++. PThrp and immunofixation pending. Ca++ still high but coming down. Will need parathyroid scan it seems as outpt. Results & Data ([facility]) Vital Signs (Past 12 Hours) Vital Signs Temp Pulse Pulse Resp BP BP Pulse Ox 05/20/21 07:00 36.7 C 79 18 131/71 94 05/20/21 04:35 36.6 C 71 16 125/71 95 05/19/21 23:06 36.7 C 79 18 123/61 92 05/19/21 22:20 78
[2021-05-20] MEDS ORDERED: FUROSEMIDE 40 MG/4 ML VIAL IV ONE (10:30)
--- NOTE | 2021-05-20 11:30 | History & Physical Bridge Note ---
Date of Service May 20, 2021 History & Physical Bridge Note Patient for insertion of permcath today. I have discussed the risks options and benefits of the procedure with the patient. The patient understands the risks options and benefits and agrees to the procedure. I have examined the patient, reviewed the History & Physical and in the interval since the performance of the History & Physical I have noted the following changes of clinical significance: no changes noted
--- NOTE | 2021-05-20 12:24 | Hospitalist Progress Note ---
Date of Service May 20, 2021 Assessment & Plan (1) Hypoxia: (2) Dyspnea on exertion: (3) Suspected pulmonary hypertension: (4) CKD (chronic kidney disease) stage 5, GFR less than 15 ml/min: (5) Essential hypertension: (6) Morbid obesity: (7) UTI (urinary tract infection): (8) Hypercalcemia: Plan: 65 yo female with severe CHEYENNE not on CPAP, failed kidney transplant with CKD5, HTN, presented to the ED from PCP office for hypoxia and VU, for the past month worsening over the past week. 1. Acute Hypoxic respiratory failure -O2 sat 86% on RA, currently on 3L NC -will need home oxygen assessment prior to discharge -likely due to untreated CHEYENNE and obesity hypoventilation syndrome 2. ESRD- progressed from CKD stage V with uremic symptoms. (history of ESRD due to glomerulonephritis status post transplant, failed) - Has AV fistula in place -continue [employer] prograf and prednisone -Plan to initiate dialysis here, management per Nephrology. Patient will need OP dialysis. CM was notified 05/19. Unsuccessful attempt at dialysis yesterday due to access issues. Vascular surgery consulted for tunneled catheter placement 3. Morbid obesity with severe CHEYENNE- BMI 37. Severe CHEYENNE but never used CPAP -Ongoing weight loss counseling 4. HTN- - stable, continue coreg, amlodipine with hold parameters 5. E coli UTI -Urine cultures +E coli, sensitive to Ceftriaxone. Continue ceftriaxone day #2 6. Hypercalcemia- -Ca 11.3 -. PTH 68 inappropriately high, VIt D 60, PTHrp pending. -likely from CKD. s/p iv lasix 05/18 continue po lasix. -plan for dialysis once access is established 7. Abnormal OP stress test -no diagnostic cath was done due to CKD5. Per cardio, abnormal stress test was related to artifact from breast attenuation and not ischemia.No additional cardiac testing indicated per cardio. DVT prophyalxis: sc heparin Disposition: Needs OP dialysis to be arranged Admission and Anticipated Discharge Date Admission Date: May 17, 2021 Subjective Unable to receive dialysis yesterday due to access issues. Plan for permacath and dialysis today patient still feels dyspneic with minimal exertion Physical Exam Physical Exam: Appears stated age, no acute distress Respiratory: Breathing comfortably at rest on 3L NC, no wheezing/rhonchi Cardiovascular: Regular rate and rhythm, no murmurs/rubs/gallops Gastrointestinal (Abdomen): soft, non tender Musculoskeletal: No edema Neurologic: awake, alert, spontaneously moving extremities Results & Data Results & Data ([facility]) Vital Signs (Past 12 Hours) Vital Signs Temp Pulse Pulse Resp BP BP Pulse Ox 05/20/21 11:00 36.5 C 68 20 126/65 95 05/20/21 07:00 36.7 C 79 18 131/71 94 05/20/21 06:18 79 05/20/21 04:35 36.6 C 71 16 125/71 95 Laboratory Results Short CBC 05/20/21 Range/Units 07:58 WBC 6.03 (4.8-10.8) K/uL Hgb 10.9 L (12.0-16.0) g/dL Hct 33.9 L (37-47) % Plt Count 187 (130-400) K/uL BMP 05/20/21 07:58 Sodium 138 Potassium 3.7 Chloride 103 Carbon Dioxide 23 BUN 66 H Creatinine 6.60 H* Glucose 93 Calcium 11.6 H Liver Function 05/20/21 Range/Units 07:58 Total Bilirubin 0.4 (0.2-1.0) mg/dl AST 11 L (13-39) U/L ALT 9 (7-52) U/L Alkaline Phosphatase 48 (34-104) U/L Albumin 3.2 L (3.4-5.0) gm/dl Medications Administered Current Inpatient Medications Acetaminophen (Acetaminophen 325 Mg Tab) 650 mg PO Q4H PRN PRN Reason: pain Stop: 06/17/21 10:01 Last Admin: 05/20/21 07:51 Dose: 650 mg Documented by: Amlodipine Besylate (Amlodipine Besylate 5 Mg Tab) 5 mg PO [facility] Stop: 06/16/21 21:53 Last Admin: 05/19/21 20:07 Dose: 5 mg Documented by: Aspirin (Aspirin 81 Mg Ectab) 81 mg PO QAM [facility] Stop: 06/17/21 08:59 Last Admin: 05/20/21 09:38 Dose: Not Given Documented by: Benzonatate (Benzonatate 100 Mg Capsule) 100 mg PO TID [facility] Stop: 06/17/21 00:00 Last Admin: 05/20/21 09:40 Dose: 100 mg Documented by: Carvedilol (Carvedilol 12.5 Mg Tab) 37.5 mg PO BID [facility] Stop: 06/16/21 21:53 Last Admin: 05/20/21 07:54 Dose: 37.5 mg Documented by: Fluticasone Propionate (Fluticasone Propionate Na Spr 16 Gm Btl) 2 sprays NA DAILY PRN PRN Reason: Allergy Symptoms Stop: 06/16/21 21:53 Fluticasone Propionate (Fluticasone Propionate Na Spr 16 Gm Btl) 1 sprays NA BID [facility] Stop: 06/19/21 20:59 Furosemide (Furosemide 80 Mg Tab) 80 mg PO QAM VU Stop: 06/17/21 08:59 Last Admin: 05/20/21 07:55 Dose: 80 mg Documented by: Gabapentin (Gabapentin 100 Mg Cap) 100 mg PO BID [facility] Stop: 06/16/21 21:53 Last Admin: 05/20/21 07:54 Dose: 100 mg Documented by: Guaifenesin (Guaifenesin Sugar Free 200 Mg/10 Ml Udc) 200 mg PO Q6H PRN PRN Reason: Cough Stop: 06/17/21 00:00 Last Admin: 05/20/21 07:53 Dose: 200 mg Documented by: Heparin Sodium (Porcine) (Heparin Sod 5,000 Unit/0.5 Ml Vial) 7,500 units SQ Q8 VU Stop: 06/16/21 21:59 Last Admin: 05/20/21 05:52 Dose: 7,500 units Documented by: Hydralazine HCl (Hydralazine Hcl 25 Mg Tab) 25 mg PO TID VU Stop: 06/16/21 21:53 Last Admin: 05/20/21 07:54 Dose: 25 mg Documented by: Ceftriaxone Sodium 2,000 mg/ (Dextrose) 70 mls @ 140 mls/hr IV Q24H VU; Protocol Stop: 05/23/21 10:14 Last Infusion: 05/20/21 10:20 Dose: Infused Documented by: Cefazolin Sodium (Ancef 2000mg) 2,000 mg in 15 mls @ 3.75 mls/min IV PREOP VU; Protocol Stop: 05/21/21 05:59 Sodium Chloride (Nss 1000ml) 1,000 mls @ 0 mls/hr IV .Q0M PRN PRN Reason: For Hemodialysis Use ONLY Stop: 05/20/21 15:23 Levothyroxine Sodium (Levothyroxine Sodium 50 Mcg Tablet) 50 mcg PO DAILYBB [facility] Stop: 06/17/21 06:29 Last Admin: 05/20/21 05:53 Dose: 50 mcg Documented by: Oxycodone/Acetaminophen (Oxycodone/Acetaminophen 5mg/325mg Tab) 1 tab PO Q6 PRN PRN Reason: Pain Stop: 05/31/21 21:53 Pantoprazole Sodium (Pantoprazole 40 Mg Tab) [facility] [place] Stop: 06/18/21 19:14 Last Admin: 05/19/21 19:50 Dose: 40 mg Documented by: Prednisone (Prednisone 5 Mg Tab) [facility] [place] Stop: 06/17/21 08:59 Last Admin: 05/20/21 07:54 Dose: 5 mg Documented by: Sodium Bicarbonate (Sodium Bicarbonate 650 Mg Tab) 650 mg PO QAM [facility] Stop: 06/17/21 08:59 Last Admin: 05/20/21 07:55 Dose: 650 mg Documented by: Tacrolimus (Tacrolimus 1 Mg Cap) 1 mg PO BID [facility] Stop: 06/16/21 21:53 Last Admin: 05/20/21 07:54 Dose: 1 mg Documented by:
[2021-05-20] MEDS ORDERED: MIDAZOLAM HCL 1 MG/ML 2ML VIAL ONE (12:46)
[2021-05-20] MEDS ORDERED: fentaNYL citrate 100 MCG/2 ML VIAL ONE (12:46)
[2021-05-20] MEDS ORDERED: HEPARIN SOD (PORCINE) 5,000 UNITS/ML VIAL ONE (12:47)
--- NOTE | 2021-05-20 13:33 | Procedure Note ---
Angiogram Post Procedure Fluoroscopy Time (minutes): 0.2 Radiation (mGy): 2 Contrast: none Post Operative Report Pre & Post Diagnosis Operation Date: 05/20/21 13:05 Pre-Op Diagnosis: End Stage Renal Disease Post-Op Diagnosis: End Stage Renal Disease I identified the patient and participated in the time-out.: Yes Procedure Operation Date: 05/20/21 13:05 Actual Procedures p Perm Catheter Placement, Left Jugular Approach, Ultrasound Localization of Left Jugular Vein, Fluoroscopy for positioning, Moderate Sedation 1258- 1335(Left) - Jh Quintero MD Surgeon Jh Quintreo MD Care Transitions Manager Lamar Aldridge MD Estimated Blood Loss 5 Findings Consistent with Post-Op Diagnosis Specimens none Drains none Anesthesia Type RN Sedation Complications none Disposition Accompanied Patient To Recovery: No Disposition: Recovery Room Indications Sonia Bernal is a 65 year old female with end-stage renal disease on hemodialysis. She does have a left arm arteriovenous fistula, however yesterday there were issues with accessing the fistula at hemodialysis. The left arm arteriovenous fistula has not yet been accessed otherwise. She does have a right side infusaport as well. She is planned to undergo a left sided permcath insertion. Description of Procedure Patient was taken to the angio suite and placed in the supine position. The left side of the neck and chest wall were prepped and draped in a sterile manner. A team timeout was performed. Local anesthesia was then administered to the appropriate areas of the neck and chest wall. Ultrasound was then used to locate the left internal jugular vein. The vein compressed easily, had no filing defects, and was patent. The vein was then punctured under direct ultrasound imaging. A guidewire was then passed centrally under fluoroscopic imaging. A stab wound was then made in the anterior chest wall and a 19 cm permcath was passed from the stab wound on the chest wall to the puncture site on the neck. The puncture site was then dilated till the 14Fr peel away sheath was inserted. The permcath was then inserted through the sheath to a central position in the distal superior vena cava. The peel away sheath was then removed. The catheter was then sutured in place using nylon sutures. The puncture was then closed using a 4-0 Vicryl subcuticular suture. Dermabond was used for a dressing on the puncture site. Both ports aspirated and flushed easi ly and were then packed with heparin. A sterile dressing was applied to the catheter. The patient left the angio suite in good condition and tolerated the procedure well. Dr. Quintero was present and scrubbed for the entirety of the procedurel I attest to the content of the Intraoperative Record and any orders documented therein. Any exceptions are noted below.
--- NOTE | 2021-05-20 13:37 | Post Operative Brief Note ---
Immediate Post Op Note v1 Date of Surgery May 20, 2021 Pre & Post Diagnosis Operation Date: 05/20/21 13:05 Pre-Op Diagnosis: End Stage Renal Disease Post-Op Diagnosis: End Stage Renal Disease I identified the patient and participated in the time-out.: Yes Procedure Operation Date: 05/20/21 13:05 Actual Procedures p Perm Catheter Placement, Left Jugular Approach, Ultrasound Localization of Left Jugular Vein, Fluoroscopy for positioning, Moderate Sedation 1258- 1335(Left) - Jh Quintero MD Surgeon Jh Quintero MD Shipping Clerk Lamar Aldridge MD Estimated Blood Loss 5 Findings Consistent with Post-Op Diagnosis Anesthesia Type RN Sedation Complications none Disposition Accompanied Patient To Recovery: No Disposition: Recovery Room
[2021-05-20] MEDS ORDERED: FAMOTIDINE 10 MG TABLET PO ONE (17:37)
[2021-05-20] MEDS ORDERED: SODIUM CHLORIDE 0.65% NA SOLN 45 ML (OCEAN) PRN (19:39)
[2021-05-20] MEDS: amLODIPine BESYLATE 5 MG TAB PO SCH (20:59)
[2021-05-20] MEDS: oxyCODONE/ACETAMINOPHEN 5mg/325mg TAB PO PRN (21:27)
[2021-05-20] MEDS: FLUTICASONE PROPIONATE NA SPR 16 GM BTL SCH (22:45)
[2021-05-21] MEDS: HEPARIN SOD 5,000 UNIT/0.5 ML VIAL SQ SCH ×3 (06:06→21:01)
[2021-05-21] MEDS: LEVOTHYROXINE SODIUM 50 MCG TABLET PO SCH (06:06)
[2021-05-21] MEDS: GABAPENTIN 100 MG CAP PO SCH ×2 (08:42→21:00)
[2021-05-21] MEDS: BENZONATATE 100 MG CAPSULE PO SCH ×3 (08:42→20:58)
[2021-05-21] MEDS: hydrALAZINE HCL 25 MG TAB PO SCH ×3 (08:43→21:00)
[2021-05-21] MEDS: FUROSEMIDE 80 MG TAB PO SCH (08:43)
[2021-05-21] MEDS: TACROLIMUS 1 MG CAP PO SCH ×2 (08:43→21:00)
[2021-05-21] MEDS: predniSONE 5 MG TAB PO SCH (08:43)
[2021-05-21] MEDS: PANTOprazole 40 MG TAB PO SCH (08:43)
[2021-05-21] MEDS: SODIUM BICARBONATE 650 MG TAB PO SCH (08:43)
[2021-05-21] MEDS: carvediloL 12.5 MG TAB PO SCH ×2 (08:43→20:58)
[2021-05-21] MEDS: ASPIRIN 81 MG ECTAB PO SCH (08:44)
[2021-05-21] MEDS: FAMOTIDINE 10 MG TABLET PO SCH (08:44)
[2021-05-21 08:50] LABS: Albumin Globulin Ratio 1.7 (0.9-2); Albumin Level 3.3 gm/dl (3.4-5.0); BUN Creatinine Ratio 8.5 (10-20); Bilirubin,Total 0.4 mg/dl (0.2-1.0); Calcium 10.9 mg/dl (8.5-10.1); Creatinine Clr Calc Pharmacy 12.4 ml/min; Est GFR (Non-African American) 7.7 ml/min; Globulin 1.9 gm/dl (2.5-4.0); Potassium 3.6 mmol/L (3.5-5.1); Total Protein 5.2 gm/dl (6.0-8.3)
[2021-05-21] MEDS: FLUTICASONE PROPIONATE NA SPR 16 GM BTL SCH ×2 (09:34→20:59)
--- NOTE | 2021-05-21 10:16 | Nephrology Progress Note ---
Date of Service May 21, 2021 Assessment & Plan Admission and Anticipated Discharge Date Admission Date: May 17, 2021 Subjective Subjective S----No new issues. Got SOB but has been getting this for weeks now. NO issues with her first dialysis yesterday. . PHYSICAL EXAMINATION: GENERAL: A middle-aged white female who is obese. She is not in any respiratory distress. Awake, alert, oriented x3, normal speech. CHEST: Bilateral decreased breath sounds, occasional crackles. CARDIOVASCULAR: S1 and S2 regular. ABDOMEN: Soft, nontender, obese. EXTREMITIES: Show no edema. LABORATORY TEST: Reviewed and shows findings consistent with ESRD. 2D echocardiogram reviewed and unremarkable ASSESSMENT AND PLAN: A 65-year-old female who is status post kidney transplant, already has chronic kidney disease V at baseline. The patient now presenting with what appears to be classic uremic symptoms of anorexia, loss of appetite, weight loss, fatigue, increasing shortness of breath, weakness. She already has an arteriovenous fistula in place in preparation for dialysis. At this point, I believe the patient has uremic symptoms with chronic kidney disease V, thus qualifying as end-stage renal disease. AV fistula did not work for cannulation. Given this vascular surgery did tunneled dialysis catheter. She then can be arranged for outpatient dialysis. Given her insurance limitations and her hometown, she will have to be in [facility] and arrangements will be made prior to hospital discharge. Transplant--continue same Prograf and Pred 5.Stopped belatacept infusion from now. Hypercalcemia--PTH high for the high Ca++. PThrp and immunofixation pending. Ca++ still high but coming down. Will need parathyroid scan it seems as outpt. Results & Data ([facility]) Vital Signs (Past 12 Hours) Vital Signs Temp Pulse Pulse Pulse Resp BP Pulse Ox 05/21/21 10:01 37 C 77 05/21/21 07:50 36.5 C 78 17 123/91 92 05/21/21 07:07 36.9 C 86 20 154/67 H 91 05/21/21 06:14 79 05/21/21 03:03 36.8 C 79 18 120/71 93 05/20/21 22:50 36.9 C 88 20 152/73 H 94 05/20/21 22:29 86
[2021-05-21] MEDS: cefTRIAXone SODIUM 2,000 MG in DEXTROSE 5% 50 ML IV SCH (13:59)
[2021-05-21] MEDS: ACETAMINOPHEN 325 MG TAB PO PRN (14:05)
--- NOTE | 2021-05-21 15:53 | Hospitalist Progress Note ---
Date of Service May 21, 2021 Assessment & Plan (1) Hypoxia: (2) Dyspnea on exertion: (3) Suspected pulmonary hypertension: (4) CKD (chronic kidney disease) stage 5, GFR less than 15 ml/min: (5) Essential hypertension: (6) Morbid obesity: (7) UTI (urinary tract infection): (8) Hypercalcemia: Plan: 65 yo female with severe [place] not on CPAP, failed kidney transplant with CKD5, HTN, presented to the ED from PCP office for hypoxia and VU, for the past month worsening over the past week. 1. Acute Hypoxic respiratory failure -O2 sat 86% on RA, currently on 3L NC -will need home oxygen assessment prior to discharge -likely due to untreated [place]NE and obesity hypoventilation syndrome 2. ESRD- progressed from CKD stage V with uremic symptoms. 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 Patient will need OP dialysis to be arranged. S/p tunneled catheter 05/20. First dialysis 05/20 and second dialysis session 05/21. Likely can be discharged home early next week once OP dialysis is arranged and she is cleared by Nephrology 3. Morbid obesity with severe CHEYENNE- BMI 37. Severe CHEYENNE but never used CPAP -Ongoing weight loss counseling 4. HTN- - stable, continue coreg, amlodipine with hold parameters 5. E coli UTI -Urine cultures +E coli, sensitive to Ceftriaxone. Continue ceftriaxone day #3 6. Hypercalcemia- -Ca 11.3 -. PTH 68 inappropriately high, VIt D 60, PTHrp pending. -likely from CKD. s/p iv lasix 05/18 continue po lasix. -improved after dialysis 7. Abnormal OP stress test -no diagnostic cath was done due to CKD5. Per cardio, abnormal stress test was related to artifact from breast attenuation and not ischemia.No additional cardiac testing indicated per cardio. DVT prophyalxis: sc heparin Disposition: Needs OP dialysis to be arranged Admission and Anticipated Discharge Date Admission Date: May 17, 2021 Subjective Ongoing shortness of breath with minimal exertion, unchanged Had her tunneled catheter and 2 hours of dialysis yesterday which she tolerated Planning for 2nd dialysis session again today Later in the day, felt anxious. Ativan ordered Physical Exam Physical Exam: Laying in bed, pleasant and comfortable Respiratory: breathing comfortably on 3L NC, no wheezing/rhonchi/rales Cardiovascular: regular rate and rhythm, no murmurs/rubs/gallops Gastrointestinal (Abdomen): soft, non tender Musculoskeletal: no edema Results & Data Results & Data ([facility]) Vital Signs (Past 12 Hours) Vital Signs Temp Pulse Pulse Pulse Pulse Resp BP 05/21/21 13:48 36.8 C 87 16 05/21/21 13:15 37.1 C 80 05/21/21 13:00 79 121/67 05/21/21 12:45 75 139/65 05/21/21 12:15 75 125/64 05/21/21 11:33 74 129/65 05/21/21 11:15 74 130/72 05/21/21 10:45 72 129/72 05/21/21 10:15 135/76 05/21/21 10:01 37 C 77 05/21/21 07:50 36.5 C 78 17 05/21/21 07:07 36.9 C 86 20 05/21/21 06:14 79 BP BP Pulse Ox 05/21/21 13:48 132/74 93 05/21/21 13:15 140/74 05/21/21 13:00 05/21/21 12:45 05/21/21 12:15 05/21/21 11:33 05/21/21 11:15 05/21/21 10:45 05/21/21 10:15 05/21/21 10:01 05/21/21 07:50 123/91 92 05/21/21 07:07 154/67 H 91 05/21/21 06:14 Laboratory Results [facility] 05/21/21 07:28 Sodium 137 Potassium 3.6 Chloride 102 Carbon Dioxide 25 BUN 46 H D Creatinine 5.43 H* D Glucose 95 Calcium 10.9 H Liver Function 05/21/21 Range/Units 07:28 Total Bilirubin 0.4 (0.2-1.0) mg/dl AST 12 L (13-39) U/L ALT 7 (7-52) U/L Alkaline Phosphatase 49 (34-104) U/L Albumin 3.3 L (3.4-5.0) gm/dl Medications Administered Current Inpatient Medications Acetaminophen (Acetaminophen 325 Mg Tab) 650 mg PO Q4H PRN PRN Reason: pain Stop: 06/17/21 10:01 Last Admin: 05/21/21 14:05 Dose: 650 mg Documented by: Amlodipine Besylate (Amlodipine Besylate 5 Mg Tab) 5 mg PO HS [facility] Stop: 06/16/21 21:53 Last Admin: 05/20/21 20:59 Dose: 5 mg Documented by: Aspirin (Aspirin 81 Mg Ectab) 81 mg PO QAM [facility] Stop: 06/17/21 08:59 Last Admin: 05/21/21 08:44 Dose: 81 mg Documented by: Benzonatate (Benzonatate 100 Mg Capsule) 100 mg PO TID [facility] Stop: 06/17/21 00:00 Last Admin: 05/21/21 13:59 Dose: 100 mg Documented by: Carvedilol (Carvedilol 12.5 Mg Tab) 37.5 mg PO BID [facility] Stop: 06/16/21 21:53 Last Admin: 05/21/21 08:43 Dose: 37.5 mg Documented by: Famotidine (Famotidine 10 Mg Tablet) 10 mg PO QAM [facility] Stop: 06/20/21 08:59 Last Admin: 05/21/21 08:44 Dose: 10 mg Documented by: Fluticasone Propionate (Fluticasone Propionate Na Spr 16 Gm Btl) 2 sprays NA DAILY PRN PRN Reason: Allergy Symptoms Stop: 06/16/21 21:53 Fluticasone Propionate (Fluticasone Propionate Na Spr 16 Gm Btl) 1 sprays NA BID [facility] Stop: 06/19/21 20:59 Last Admin: 05/21/21 09:34 Dose: 1 sprays Documented by: Furosemide (Furosemide 80 Mg Tab) 80 mg PO QAM [facility] Stop: 06/17/21 08:59 Last Admin: 05/21/21 08:43 Dose: 80 mg Documented by: Gabapentin (Gabapentin 100 Mg Cap) 100 mg PO BID [facility] Stop: 06/16/21 21:53 Last Admin: 05/21/21 08:42 Dose: 100 mg Documented by: Guaifenesin (Guaifenesin Sugar Free 200 Mg/10 Ml Udc) 200 mg PO Q6H PRN PRN Reason: Cough Stop: 06/17/21 00:00 Last Admin: 05/20/21 07:53 Dose: 200 mg Documented by: Heparin Sodium (Porcine) (Heparin Sod 5,000 Unit/0.5 Ml Vial) 7,500 units SQ Q8 [facility] Stop: 06/16/21 21:59 Last Admin: 05/21/21 14:01 Dose: 7,500 units Documented by: Hydralazine HCl (Hydralazine Hcl 25 Mg Tab) 25 mg PO TID [facility] Stop: 06/16/21 21:53 Last Admin: 05/21/21 14:01 Dose: 25 mg Documented by: Ceftriaxone Sodium 2,000 mg/ (Dextrose) 70 mls @ 140 mls/hr IV Q24H [facility]; Protocol Stop: 05/23/21 10:14 Last Infusion: 05/21/21 14:42 Dose: Infused Documented by: Levothyroxine Sodium (Levothyroxine Sodium 50 Mcg Tablet) 50 mcg PO DAILYBB [facility] Stop: 06/17/21 06:29 Last Admin: 05/21/21 06:06 Dose: 50 mcg Documented by: Lorazepam (Lorazepam 0.5 Mg Tab) 0.5 mg PO TID PRN PRN Reason: Anxiety Stop: 06/20/21 14:55 Oxycodone/Acetaminophen (Oxycodone/Acetaminophen 5mg/325mg Tab) 1 tab PO Q6 PRN PRN Reason: Pain Stop: 05/31/21 21:53 Last Admin: 05/20/21 21:27 Dose: 1 tab Documented by: Pantoprazole Sodium (Pantoprazole 40 Mg Tab) 40 mg PO QAM [facility] Stop: 06/18/21 19:14 Last Admin: 05/21/21 08:43 Dose: 40 mg Documented by: Prednisone (Pred[facility]one 5 Mg Tab) [facility] [place] Stop: 06/17/21 08:59 Last Admin: 05/21/21 08:43 Dose: 5 mg Documented by: Sodium Bicarbonate (Sodium Bicarbonate 650 Mg Tab) [facility] [place] [facility] Stop: 06/17/21 08:59 Last Admin: 05/21/21 08:43 Dose: 650 mg Documented by: Sodium Chloride (Sodium Chloride 0.65% Na Soln 45 Ml ([place])) 0 sprays NA PRN PRN PRN Reason: Dryness Stop: 06/19/21 19:38 Last Admin: 05/20/21 21:28 Dose: 225 sprays Documented by: Tacrolimus (Tacrolimus 1 Mg Cap) 1 mg PO BID [facility] Stop: 06/16/21 21:53 Last Admin: 05/21/21 08:43 Dose: 1 mg Documented by:
[2021-05-21] MEDS: LORazepam 0.5 MG TAB PO PRN (15:58)
[2021-05-21] MEDS: amLODIPine BESYLATE 5 MG TAB PO SCH (20:58)
[2021-05-22] MEDS: guaiFENesin SUGAR FREE 200 MG/10 ML UDC PO PRN ×3 (00:03→20:47)
[2021-05-22] MEDS: LEVOTHYROXINE SODIUM 50 MCG TABLET PO SCH (05:34)
[2021-05-22] MEDS: HEPARIN SOD 5,000 UNIT/0.5 ML VIAL SQ SCH ×3 (05:35→20:44)
[2021-05-22 06:49] LABS: Albumin Globulin Ratio 1.7 (0.9-2); Albumin Level 3.3 gm/dl (3.4-5.0); BUN Creatinine Ratio 5.5 (10-20); Bilirubin,Total 0.5 mg/dl (0.2-1.0); Calcium 11.3 mg/dl (8.5-10.1); Creatinine Clr Calc Pharmacy 16.6 ml/min; Est GFR (African American) 12.9 ml/min; Est GFR (Non-African American) 11.1 ml/min; Potassium 3.5 mmol/L (3.5-5.1); Total Protein 5.3 gm/dl (6.0-8.3)
[2021-05-22] MEDS: TACROLIMUS 1 MG CAP PO SCH ×2 (08:27→20:42)
[2021-05-22] MEDS: hydrALAZINE HCL 25 MG TAB PO SCH ×3 (08:27→20:43)
[2021-05-22] MEDS: PANTOprazole 40 MG TAB PO SCH (08:27)
[2021-05-22] MEDS: predniSONE 5 MG TAB PO SCH (08:27)
[2021-05-22] MEDS: carvediloL 12.5 MG TAB PO SCH ×2 (08:27→20:42)
[2021-05-22] MEDS: GABAPENTIN 100 MG CAP PO SCH ×2 (08:27→20:43)
[2021-05-22] MEDS: FLUTICASONE PROPIONATE NA SPR 16 GM BTL SCH ×2 (08:28→20:44)
[2021-05-22] MEDS: ASPIRIN 81 MG ECTAB PO SCH (08:28)
[2021-05-22] MEDS: SACCHAROMYCES BOULARDII 250 MG CAP PO SCH (08:28)
[2021-05-22] MEDS: FAMOTIDINE 10 MG TABLET PO SCH (08:28)
[2021-05-22] MEDS: SODIUM BICARBONATE 650 MG TAB PO SCH (08:28)
[2021-05-22] MEDS: FUROSEMIDE 80 MG TAB PO SCH (08:28)
[2021-05-22] MEDS: BENZONATATE 100 MG CAPSULE PO SCH ×3 (08:30→20:47)
[2021-05-22] MEDS: cefTRIAXone SODIUM 2,000 MG in DEXTROSE 5% 50 ML IV SCH (10:14)
[2021-05-22] MEDS: LORazepam 0.5 MG TAB PO PRN (11:59)
--- NOTE | 2021-05-22 12:50 | Pulmonary Consultation ---
Date of Consultation May 22, 2021 Assessment & Plan (1) Hypoxia: (2) Sleep apnea: (3) Morbid obesity: (4) Dyspnea on exertion: (5) End stage renal disease: Impression: 65-year-old female with shortness of breath and hypoxemic respiratory failure. The etiology is likely multifactorial due to combinations of potential restrictive lung disease due to body habitus, potential fluid overload related to dialysis, diastolic dysfunction, untreated sleep disordered breathing, and potential underlying obstructive lung disease. Recommendations: 1. Continue management of the patient's end-stage renal disease and fluid removal. 2. We will check arterial blood gas as well as chest x-ray (PA and lateral). 3. The patient will be placed on CPAP 12 cmH2O tonight and see how she does. If she does well, this will need to be continued in the outpatient setting and she can follow-up with Dr. Elizabeth in the sleep clinic as an outpatient. She may require a repeat titration study to determine optimal pressure settings and or oxygen bleed given her weight loss. 4. The patient should undergo outpatient pulmonary function testing. For now we will place her on a trial of Anoro to see if it offers her clinical benefit. 5. Continue supplemental oxygen titrated to keep saturations at or above 88%. Oxygen bleed will likely be required in conjunction with CPAP. The majority of this work-up can be safely conducted as an outpatient. Ultimate disposition is referred to the patient's primary care provider and admitting service History of Present Illness Attending Physician: Michel Disla MD History of Present Illness Asked by hospitalist to evaluate this patient with shortness of breath. History is obtained from reviewed electronic medical record and interview the patient at bedside. Patient is a 65-year-old female with a history of severe untreated sleep disordered breathing, extensive tobacco abuse, obesity, and chronic kidney disease. She was sent to the emergency room 05/17/2021 due to shortness of breath on exertion. She noted that she was coughing and bringing up some clear phlegm. She does not report any significant wheezing. She has an over [id number] history of tobacco abuse and quit smoking about 12 years ago. She was noted to be hypoxemic. She was placed on supplemental oxygen. Unfortunately her kidney disease continued to deteriorate and the patient eventually has required initiation of dialysis during this hospitalization. She is undergone a few sessions. She is unclear whether this is offered her benefit with regards to her breathing or not. 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 She had some exposures to chemicals but cannot elucidate which chemicals she was exposed to. No pets at home. She has been successful in losing weight. She was diagnosed with sleep apnea prescribed CPAP but never used it for reasons that are not entirely clear. She states she purchased a machine but then it was repossessed by her [employer] company. She is worried about the cost. Allergies Allergy/AdvReac Type Severity Reaction Status Date / Time levofloxacin AdvReac Severe C-DIFF Verified 05/17/21 16:47 Home Medications Medication Instructions Recorded Confirmed Type aspirin 81 mg chewable tablet 81 mg PO QAM 04/23/18 05/17/21 History belatacept 250 mg intravenous 1 dose IV MONTHLY 04/23/18 05/17/21 History solution fluticasone propionate 50 2 spray INTRANASAL DAILY PRN 04/23/18 05/17/21 History mcg/actuation nasal spray,suspension (Flonase Allergy Relief) gabapentin 100 mg capsule 100 mg PO BID 04/23/18 05/17/21 History levothyroxine 50 mcg tablet 50 mcg PO QAM 04/23/18 05/17/21 History magnesium oxide 400 mg PO BID 04/23/18 05/17/21 History omeprazole 40 mg capsule,delayed 40 mg PO QAM 04/23/18 05/17/21 History release prednisone 5 mg tablet 5 mg PO QAM 04/23/18 05/17/21 History sodium bicarbonate 650 mg tablet 650 mg PO QAM 04/23/18 05/17/21 History tacrolimus 1 mg capsule, 1 mg PO BID 04/23/18 05/17/21 History immediate-release oxycodone-acetaminophen 5 mg-325 1 tab PO Q6 PRN 12/28/20 05/17/21 History mg tablet amlodipine 5 mg tablet (Norvasc) 5 mg PO HS #30 tab 12/30/20 05/17/21 Rx carvedilol 25 mg tablet 37.5 mg PO BID 30 Days #90 tab 12/30/20 05/17/21 Rx furosemide 80 mg tablet 80 mg PO QAM #30 tab 12/30/20 05/17/21 Rx hydralazine 25 mg tablet 25 mg PO TID 05/17/21 05/17/21 History Patient History Medical History (Updated 05/19/21 @ 13:32 by Aranza Haider PA-C) Anemia in chronic kidney disease AV fistula left upper arm (functioning), also one to left wrist, but does not function properly Chronic back pain Chronic steroid use End stage renal disease ESRD (end stage renal disease) on dialysis not currently on dialysis per pt GERD (gastroesophageal reflux disease) HLD (hyperlipidemia) HTN (hypertension) Hypothyroidism Migraine Palpitations on occasion > saw Dr. Rivera recently, no further work up at this time per pt Sleep apnea no device currently > has apt soon to see about getting back on device Surgical History H/O cystoscopy History of appendectomy History of bilateral tubal ligation History of section x1 History of cholecystectomy History of colonoscopy History of esophagogastroduodenoscopy (EGD) History of kidney transplant 08/28/2016 @ [facility] [place] [facility] (right side) functions at only 10%--d/t ESRD > follows with Dr. Roldan History of laparoscopy History of tonsillectomy and adenoidectomy History of tooth extraction History of vascular access device right chest History of wisdom tooth extraction Family History Grandmother (Paternal) Family history of diabetes mellitus Grandmother (Maternal) Family history of diabetes mellitus Family hx of colon cancer Mother Family hx of colon cancer Other No family history of adverse response to anesthesia Social History Smoking Status: Former smoker Tobacco Type: Cigarettes Second Hand Exposure: No; Hx Alcohol Use: No Hx Substance Use: No Preferred Language: Setswana Communication Ability: Effective Assorter Required: No Beliefs That Will Affect Care: None marital status: Current Living Situation: Spouse Current Living Situation Comment: Lives with and daughter and her family How many Children do You have: 1 Other Information That Helps Us Care for You: No Feels Safe at Home: Yes Safety Concerns: Feels Safe At This Time Assistive Devices: Glasses and Oxygen - Continuous Review of Systems Review of Systems: Please refer to admission H&P. No additions or deletions Physical Exam Physical Exam: Laying in bed, pleasant and comfortable Respiratory: breathing comfortably on 3L NC, no wheezing/rhonchi/rales Cardiovascular: regular rate and rhythm, no murmurs/rubs/gallops Gastrointestinal (Abdomen): soft, non tender Musculoskeletal: no edema Results & Data Results & Data ([facility]) Vital Signs (Past 12 Hours) Vital Signs Temp Pulse Resp BP Pulse Ox 05/22/21 12:16 36.9 C 80 20 135/73 94 05/22/21 06:44 37.3 C 76 20 144/75 H 97 05/22/21 03:15 37.2 C 83 20 137/71 96 Critical Care Results & Data Vital Signs (Past 12 Hours) Vital Signs Temp Pulse Resp BP Pulse Ox 05/22/21 12:16 36.9 C 80 20 135/73 94 05/22/21 06:44 37.3 C 76 20 144/75 H 97 05/22/21 03:15 37.2 C 83 20 137/71 96 Lab & Micro Results (Past 24 Hours) No Data to Display Na 135 mmol/L (136-145) L 05/22/21 K 3.5 mmol/L (3.5-5.1) 05/22/21 Cl 100 mmol/L (98-107) 05/22/21 CO2 27 mmol/L (21-32) 05/22/21 Anion Gap 8 (3-11) 05/22/21 BUN 22 mg/dl (6-23) 05/22/21 Creatinine 4.02 mg/dl (0.6-1.2) H 05/22/21 Estimated GFR ( Amer) 12.9 ml/min 05/22/21 Estimated GFR (Non-Af Amer) 11.1 ml/min 05/22/21 BUN/Creatinine Ratio 5.5 (10-20) L 05/22/21 Glu 90 mg/dl (70-99(Fasting)) 05/22/21 Ca 11.3 mg/dl (8.5-10.1) H 05/22/21 Total Bilirubin 0.5 mg/dl (0.2-1.0) 05/22/21 AST 13 U/L (13-39) 05/22/21 ALT 6 U/L (7-52) L 05/22/21 Alkaline Phosphatase 43 U/L (34-104) 05/22/21 TP 5.3 gm/dl (6.0-8.3) L 05/22/21 Albumin 3.3 gm/dl (3.4-5.0) L 05/22/21 Globulin 2.0 gm/dl (2.5-4.0) L 05/22/21 Albumin/Globulin Ratio 1.7 (0.9-2) 05/22/21 Calcium Level 11.3 mg/dl (8.5-10.1) H 05/22/21 06:03 05/22/21 I & O Totals 24 Hours 05/21/21 05/22/21 05/23/21 06:59 06:59 07:59 Intake Total 370 / 370 1035 / 1035 70 / 70 Output Total 1350 / 1350 Balance -980 / -980 1035 / 1035 70 / 70 Cumulative 05/17/21 15:03 thru 05/22/21 10:44 Intake Total 3670 Output Total 5500 Balance -1830 RT Ventilator Mngmt (Last Documented) Ventilator Ordered Settings Respiratory Rate 20 05/22/21 12:16 Ventilator - PT Measurements Respiratory Rate 20 PG Care Time/CCT Total # of Minutes Spent Total Time Spent with Patient: Total time spent is greater than 50% in coordination of care (as documented) at patient's floor/unit and/or counseling patient: Coding Level of Care Code 98280 Inpt Consult Level 4 Diagnoses Hypoxia R09.02 Sleep apnea G47.30 Morbid obesity E66.01 Dyspnea on exertion R06.00 End stage renal disease N18.6
[2021-05-22 13:06] LABS: Base Excess ABG 2.1 mEq/L (-9-1.8); HCO3 ABG 25 mmol/L (19-24); Oxygen Saturation ABG 96.9 % (90-95); PCO2 ABG 34 mmHg (35-46); PO2 ABG 82 mmHg (80-95); pH ABG 7.49 (7.35-7.45)
[2021-05-22 13:13] LABS: Allen Test Pos (Pos)
[2021-05-22] MEDS: UMECLIDINIUM/VILANTEROL 62.5/25MCG 7 PUFFS/INHALER INH SCH (13:48)
--- NOTE | 2021-05-22 16:50 | Hospitalist Progress Note ---
Date of Service May 22, 2021 Assessment & Plan (1) Hypoxia: (2) Dyspnea on exertion: (3) Suspected pulmonary hypertension: (4) CKD (chronic kidney disease) stage 5, GFR less than 15 ml/min: (5) Essential hypertension: (6) Morbid obesity: (7) UTI (urinary tract infection): (8) Hypercalcemia: Plan: 65 yo female with severe [place] not on CPAP, failed kidney transplant with CKD5, HTN, presented to the ED from PCP office for hypoxia and VU, for the past month worsening over the past week. 1. Acute Hypoxic respiratory failure -O2 sat 86% on RA, currently on 3L NC -will need home oxygen assessment prior to discharge -likely due to untreated [place] and obesity hypoventilation syndrome. Appreciate Pulmonology input. Patient would benefit from outpatient PFTs. Repeat sleep study. Trial of CPAP ordered while here. 2. ESRD- progressed from CKD stage V with uremic symptoms. 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 Patient will need OP dialysis to be arranged. S/p tunneled catheter 05/20. First dialysis 05/20 and second dialysis session 05/21. Likely can be discharged home early next week once OP dialysis is arranged and she is cleared by Nephrology 3. Morbid obesity with severe CHEYENNE- BMI 35. Severe CHEYENNE but never used CPAP -recent weight loss. Ongoing weight loss counseling and encouragement 4. HTN- - stable, continue coreg, amlodipine with hold parameters 5. E coli UTI -Urine cultures +E coli, sensitive to Ceftriaxone. will plan for 5 day course. 6. Hypercalcemia- -Ca 11.3 -. PTH 68 inappropriately high, VIt D 60, PTHrp pending. -likely from CKD. s/p iv lasix 05/18 continue po lasix. -improved after dialysis 7. Abnormal OP stress test -no diagnostic cath was done due to CKD5. Per cardio, abnormal stress test was related to artifact from breast attenuation and not ischemia.No additional cardiac testing indicated per cardio. DVT prophyalxis: sc heparin Disposition: Needs OP dialysis to be arranged Admission and Anticipated Discharge Date Admission Date: May 17, 2021 Subjective Still with ongoing dyspnea with minimal exertion Patient became upset when I suggested she may have underlying obesity hypoventilation syndrome (in addition to her known CHEY[place]NE and renal disease). She reports that she lost a significant amount of weight and wouldn't consider herself "obese" any longer. We discussed consultation with Pulmonology and she is agreeable Physical Exam Physical Exam: Breathing comfortably on 3L NC, no acute distress Respiratory: Clear, no wheezing/rhonchi/rales Cardiovascular: regular rate and rhythm, no murmurs/rubs/gallops Gastrointestinal (Abdomen): soft, non tender Musculoskeletal: no edema Neurologic: awake, alert, spontaneously moving extremities Results & Data Results & Data ([facility]) Vital Signs (Past 12 Hours) Vital Signs Temp Pulse Resp BP Pulse Ox 05/22/21 14:33 36.7 C 81 20 138/71 93 05/22/21 12:16 36.9 C 80 20 135/73 94 05/22/21 06:44 37.3 C 76 20 144/75 H 97 Laboratory Results BMP 05/22/21 06:03 Sodium 135 L Potassium 3.5 Chloride 100 Carbon Dioxide 27 BUN 22 D Creatinine 4.02 H D Glucose 90 Calcium 11.3 H Liver Function 05/22/21 Range/Units 06:03 Total Bilirubin 0.5 (0.2-1.0) mg/dl AST 13 (13-39) U/L ALT 6 L (7-52) U/L Alkaline Phosphatase 43 (34-104) U/L Albumin 3.3 L (3.4-5.0) gm/dl Medications Administered Current Inpatient Medications Acetaminophen (Acetaminophen 325 Mg Tab) 650 mg PO Q4H PRN PRN Reason: pain Stop: 06/17/21 10:01 Last Admin: 05/21/21 14:05 Dose: 650 mg Documented by: Amlodipine Besylate (Amlodipine Besylate 5 Mg Tab) 5 mg PO HS VU Stop: 06/16/21 21:53 Last Admin: 05/21/21 20:58 Dose: 5 mg Documented by: Aspirin (Aspirin 81 Mg Ectab) 81 mg PO QAM VU Stop: 06/17/21 08:59 Last Admin: 05/22/21 08:28 Dose: 81 mg Documented by: Benzonatate (Benzonatate 100 Mg Capsule) 100 mg PO TID VU Stop: 06/17/21 00:00 Last Admin: 05/22/21 13:46 Dose: 100 mg Documented by: Carvedilol (Carvedilol 12.5 Mg Tab) 37.5 mg PO BID [facility] Stop: 06/16/21 21:53 Last Admin: 05/22/21 08:27 Dose: 37.5 mg Documented by: Famotidine (Famotidine 10 Mg Tablet) 10 mg PO QAM [facility] Stop: 06/20/21 08:59 Last Admin: 05/22/21 08:28 Dose: 10 mg Documented by: Fluticasone Propionate (Fluticasone Propionate Na Spr 16 Gm Btl) 2 sprays NA DAILY PRN PRN Reason: Allergy Symptoms Stop: 06/16/21 21:53 Fluticasone Propionate (Fluticasone Propionate Na Spr 16 Gm Btl) 1 sprays NA BID [facility] Stop: 06/19/21 20:59 Last Admin: 05/22/21 08:28 Dose: 1 sprays Documented by: Furosemide (Furosemide 80 Mg Tab) 80 mg PO QAM [facility] Stop: 06/17/21 08:59 Last Admin: 05/22/21 08:28 Dose: 80 mg Documented by: Gabapentin (Gabapentin 100 Mg Cap) 100 mg PO BID [facility] Stop: 06/16/21 21:53 Last Admin: 05/22/21 08:27 Dose: 100 mg Documented by: Guaifenesin (Guaifenesin Sugar Free 200 Mg/10 Ml Udc) 200 mg PO Q6H PRN PRN Reason: Cough Stop: 06/17/21 00:00 Last Admin: 05/22/21 05:35 Dose: 200 mg Documented by: Heparin Sodium (Porcine) (Heparin Sod 5,000 Unit/0.5 Ml Vial) 7,500 units SQ Q8 UV Stop: 06/16/21 21:59 Last Admin: 05/22/21 13:47 Dose: 7,500 units Documented by: Hydralazine HCl (Hydralazine Hcl 25 Mg Tab) 25 mg PO TID [facility] Stop: 06/16/21 21:53 Last Admin: 05/22/21 15:07 Dose: 25 mg Documented by: Ceftriaxone Sodium 2,000 mg/ (Dextrose) 70 mls @ 140 mls/hr IV Q24H [facility]; Protocol Stop: 05/23/21 10:14 Last Infusion: 05/22/21 10:44 Dose: Infused Documented by: Levothyroxine Sodium (Levothyroxine Sodium 50 Mcg Tablet) 50 mcg PO DAILYBB [facility] Stop: 06/17/21 06:29 Last Admin: 05/22/21 05:34 Dose: 50 mcg Documented by: Lorazepam (Lorazepam 0.5 Mg Tab) 0.5 mg PO TID PRN PRN Reason: Anxiety Stop: 06/20/21 14:55 Last Admin: 05/22/21 11:59 Dose: 0.5 mg Documented by: Oxycodone/Acetaminophen (Oxycodone/Acetaminophen 5mg/325mg Tab) 1 tab PO Q6 PRN PRN Reason: Pain Stop: 05/31/21 21:53 Last Admin: 05/20/21 21:27 Dose: 1 tab Documented by: Pantoprazole Sodium (Pantoprazole 40 Mg Tab) 40 mg PO QAM [facility] Stop: 06/18/21 19:14 Last Admin: 05/22/21 08:27 Dose: 40 mg Documented by: Prednisone (Prednisone 5 Mg Tab) 5 mg PO QAM [facility] Stop: 06/17/21 08:59 Last Admin: 05/22/21 08:27 Dose: 5 mg Documented by: Saccharomyces Boulardii (Saccharomyces Boulardii 250 Mg Cap) 250 mg PO DAILY S Stop: 06/21/21 08:59 Last Admin: 05/22/21 08:28 Dose: 250 mg Documented by: Sodium Bicarbonate (Sodium Bicarbonate 650 Mg Tab) 650 mg PO QAM [facility] Stop: 06/17/21 08:59 Last Admin: 05/22/21 08:28 Dose: 650 mg Documented by: Sodium Chloride (Sodium Chloride 0.65% Na Soln 45 Ml ([place])) 0 sprays NA PRN PRN PRN Reason: Dryness Stop: 06/19/21 19:38 Last Admin: 05/20/21 21:28 Dose: 225 sprays Documented by: Tacrolimus (Tacrolimus 1 Mg Cap) 1 mg PO BID [facility] Stop: 06/16/21 21:53 Last Admin: 05/22/21 08:27 Dose: 1 mg Documented by: Umeclidinium/Vilanterol (Umeclidinium/Vilanterol 62.5/25mcg 7 Puffs/Inhaler) 1 puffs INH DAILY [facility] Stop: 06/21/21 12:59 Last Admin: 05/22/21 13:48 Dose: 1 puffs Documented by:
--- NOTE | 2021-05-22 18:07 | XRay Report ---
XR chest 2V PA/lateral HISTORY: hypoxemia COMPARISON: Chest 05/17/2021. FINDINGS: The cardiac silhouette remains mildly enlarged. There is mild central pulmonary vascular co ngestion without overt edema. This has improved in the interval. No pneumothorax. No pleural effusion s. No new focal lung consolidations identified. Right jugular Port-A-Cath in the left jugular central venous catheter terminates in the SVC. IMPRESSION: Cardiomegaly with mild pulmonary vascular congestion. This has improved in the interval. ACT 112: Negative or not required by law. Electronically signed by: Jesus Alberto Hernández M.D. 05/22/2021 6:05 PM
[2021-05-22] MEDS: ACETAMINOPHEN 325 MG TAB PO PRN (19:01)
--- NOTE | 2021-05-22 20:22 | Nephrology Progress Note ---
Date of Service May 22, 2021 Assessment & Plan (1) ESRD (end stage renal disease) on dialysis: Plan: on MWF HD via [facility] -arrange AVF revision as OP -> needs OP dialysis arrangements for [facility] under my care -no indication for further HD today; next HD on 05/24 (2) Failed kidney transplant: Plan: need to confirm w/ renal txplt team [facility] during week that belatecept has been stopped -continue tacrolimus and prednisone dosing (3) Hypercalcemia: Plan: worsening today; work up pending; ? tertiary hyperPTH -check daily -needs OP nuke med scan of parathyroid Admission and Anticipated Discharge Date Admission Date: May 17, 2021 Subjective seen on rounds at 1400 approx; no interval events. worried about hypoxia, 02 needs at d/c. pulm c/s pending and pt eager to hear dispo Review of Systems Review of Systems: All systems reviewed & are unremarkable except as noted in Subjective Physical Exam Constitutional: well developed and well nourished; no acute distress Eyes: EOM intact bilaterally ENMT: Ears: no external ear abnormality Nose: no external nose abnormality Mouth: + dry oral mucous membranes Neck: no nuchal rigidity Respiratory: normal respiratory effort Auscultation: + diminished lung sounds Cardiovascular: Rate/Rhythm: regular rate and regular rhythm Extremities: no edema Gastrointestinal (Abdomen): Inspection/Auscultation: normal bowel sounds Pe rcussion/Palpation: abdomen soft; abdomen nontender Musculoskeletal: Extremities: strength 5/5 throughout Skin: no rashes, warm and dry Neurologic: gregory, fluent speech, no tremor Psychiatric: Orientation: alert and oriented x 3 Affect: + anxious affect Results & Data ([facility]) Vital Signs (Past 12 Hours) Vital Signs Temp Pulse Resp BP Pulse Ox 05/22/21 19:33 36.8 C 83 20 135/75 93 05/22/21 14:33 36.7 C 81 20 138/71 93 05/22/21 12:16 36.9 C 80 20 135/73 94 Laboratory Results 05/20/21 07:58 05/22/21 06:03
[2021-05-22] MEDS: amLODIPine BESYLATE 5 MG TAB PO SCH (20:42)
[2021-05-23] MEDS: LEVOTHYROXINE SODIUM 50 MCG TABLET PO SCH (05:56)
[2021-05-23] MEDS: PANTOprazole 40 MG TAB PO SCH (05:56)
[2021-05-23] MEDS: guaiFENesin SUGAR FREE 200 MG/10 ML UDC PO PRN ×3 (05:59→21:19)
[2021-05-23 07:00] LABS: Albumin Globulin Ratio 1.8 (0.9-2); Albumin Level 3.5 gm/dl (3.4-5.0); BUN Creatinine Ratio 5.2 (10-20); Bilirubin,Total 0.5 mg/dl (0.2-1.0); Calcium 11.5 mg/dl (8.5-10.1); Creatinine Clr Calc Pharmacy 12.4 ml/min; Est GFR (African American) 9.1 ml/min; Est GFR (Non-African American) 7.9 ml/min; Globulin 1.9 gm/dl (2.5-4.0); Potassium 3.6 mmol/L (3.5-5.1); Total Protein 5.4 gm/dl (6.0-8.3)
[2021-05-23] MEDS ORDERED: ALBUTEROL HFA 8 GM INHALER INH PRN (08:30)
--- NOTE | 2021-05-23 08:31 | Pulmonology Progress Note ---
Date of Service May 23, 2021 Assessment & Plan (1) Hypoxia: (2) Sleep apnea: (3) Morbid obesity: (4) Dyspnea on exertion: (5) End stage renal disease: Plan: Impression: 65-year-old female with shortness of breath and hypoxemic respiratory failure. The etiology is likely multifactorial due to combinations of potential restrictive lung disease due to body habitus, potential fluid overload related to dialysis, diastolic dysfunction, untreated sleep disordered breathing, and potential underlying obstructive lung disease. Recommendations: 1. Continue management of the patient's end-stage renal disease and fluid removal. 2. Blood gas showed no evidence of hypercarbia. 3. Continue CPAP at 12 cmH2O nightly with oxygen bleed to keep saturations above 88%. Given the patient's significant weight loss, would recommend that she undergo CPAP titration in the outpatient setting to determine optimal pressures and oxygen requirement. 4. The patient should undergo outpatient pulmonary function testing. Continue Anoro. She feels it is beneficial. We will add albuterol on an as-needed basis as well. 5. Continue supplemental oxygen titrated to keep saturations at or above 88%. Oxygen bleed will likely be required in conjunction with CPAP. Patient appears improved at this point time. From a pulmonary standpoint, she can be dismissed from the hospital with outpatient follow-up after her PFTs. Pulmonary will sign off. Feel free to contact us with additional questions or concerns Admission and Anticipated Discharge Date Admission Date: May 17, 2021 Subjective Patient seen and examined. EMR reviewed. She feels better with the Anoro. She states that after she took it she felt the congestion was much better. She is not coughing. She was able to tolerate CPAP for a period of time last night. She states that she was anxious which is not unusual for her which resulted in removing the device but overall she was comfortable with that and can see herself using it in the long-term. Review of Systems Review of Systems: All systems reviewed & are unremarkable except as noted in Subjective Physical Exam Constitutional: WD/WN, vitals as above Neck: trachea midline, no thyromegaly Respiratory: normal respiratory effort, lungs clear to auscultation Cardiovascular: RRR, no murmur, no edema Gastrointestinal (Abdomen): normal bowel sounds, soft, nontender, no hepatosplenomegaly Musculoskeletal: Extremities: extremities normal to inspection Skin: no rashes, warm and dry Neurologic: Nonfocal exam Lymphatic: no cervical lymphadenopathy Results & Data Results & Data ([facility]) Vital Signs (Past 12 Hours) Vital Signs Temp Pulse Pulse Resp BP Pulse Ox 05/23/21 07:10 82 05/23/21 06:41 37.0 C 79 20 147/70 H 94 05/23/21 03:20 36.3 C L 75 20 147/68 H 93 05/22/21 23:00 36.5 C 82 22 159/72 H 93 05/22/21 19:33 36.8 C 83 20 135/75 93 Laboratory Results 05/20/21 07:58 05/23/21 06:07 05/22/21 12:41 ABG pH 7.49 H ABG pCO2 34 L ABG pO2 82 ABG HCO3 25 H ABG O2 Saturation 96.9 H ABG Base Excess 2.1 H Diagnostic Findings Chest x-ray independently reviewed. The previously noted pulmonary congestion appears improved. No pleural effusion or pneumothorax. PG Care Time/CCT Total # of Minutes Spent Total Time Spent with Patient: Total time spent is greater than 50% in coordination of care (as documented) at patient's floor/unit and/or counseling patient: Coding Level of Care Code 84556 Subseq Hosp Care Lvl 2 Diagnoses Hypoxia R09.02 Sleep apnea G47.30 Morbid obesity E66.01 Dyspnea on exertion R06.00 End stage renal disease N18.6
[2021-05-23] MEDS: UMECLIDINIUM/VILANTEROL 62.5/25MCG 7 PUFFS/INHALER INH SCH (08:48)
[2021-05-23] MEDS: ASPIRIN 81 MG ECTAB PO SCH (09:15)
[2021-05-23] MEDS: predniSONE 5 MG TAB PO SCH (09:16)
[2021-05-23] MEDS: FAMOTIDINE 10 MG TABLET PO SCH (09:16)
[2021-05-23] MEDS: FUROSEMIDE 80 MG TAB PO SCH (09:16)
[2021-05-23] MEDS: SACCHAROMYCES BOULARDII 250 MG CAP PO SCH (09:16)
[2021-05-23] MEDS: carvediloL 12.5 MG TAB PO SCH ×2 (09:17→23:43)
[2021-05-23] MEDS: hydrALAZINE HCL 25 MG TAB PO SCH ×3 (09:18→23:45)
[2021-05-23] MEDS: GABAPENTIN 100 MG CAP PO SCH ×2 (09:18→23:44)
[2021-05-23] MEDS: TACROLIMUS 1 MG CAP PO SCH ×2 (09:18→23:45)
[2021-05-23] MEDS: HEPARIN SOD 5,000 UNIT/0.5 ML VIAL SQ SCH ×2 (09:19→23:46)
[2021-05-23] MEDS: BENZONATATE 100 MG CAPSULE PO SCH ×3 (09:24→23:47)
[2021-05-23] MEDS: FLUTICASONE PROPIONATE NA SPR 16 GM BTL SCH ×2 (09:27→23:44)
--- NOTE | 2021-05-23 14:29 | Hospitalist Progress Note ---
Date of Service May 23, 2021 Assessment & Plan (1) Hypoxia: (2) Dyspnea on exertion: (3) Suspected pulmonary hypertension: (4) CKD (chronic kidney disease) stage 5, GFR less than 15 ml/min: (5) Essential hypertension: (6) Morbid obesity: (7) UTI (urinary tract infection): (8) Hypercalcemia: Plan: 65 yo female with severe [place] not on CPAP, failed kidney transplant with CKD5, HTN, presented to the ED from PCP office for hypoxia and VU, for the past month worsening over the past week. 1. Acute Hypoxic respiratory failure -O2 sat 86% on RA, currently on 3L NC -Multifactorial: likely due to untreated [place]NE and obesity hypoventilation syndrome, component of renal disease and possibly undiagnosed COPD with her 50 pack year smoking history. Appreciate Pulmonology input. Patient would benefit from outpatient PFTs. Tolerated CPAP here, will need repeat titration study with her recent weight loss. Improved with trial of Anoro Ellipta -will order 2 Step for tomorrow 2. ESRD- progressed from CKD stage V with uremic symptoms. 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 S/p tunneled catheter 05/20. First dialysis 05/20 and second dialysis session 05/21. Next dialysis will be 05/24 -Need OP dialysis to be arranged 3. Morbid obesity with severe CHEYENNE- BMI 35. Severe CHEYENNE but never used CPAP -recent weight loss. Ongoing weight loss counseling and encouragement 4. HTN- - stable, continue coreg, amlodipine with hold parameters 5. E coli UTI -Urine cultures +E coli, sensitive to Ceftriaxone. will plan for 5 day course. 6. Hypercalcemia- -Ca 11.3 -. PTH 68 inappropriately high, VIt D 60, PTHrp pending. -likely from CKD. s/p iv lasix 05/18 continue po lasix. -improved after dialysis 7. Abnormal OP stress test -no diagnostic cath was done due to CKD5. Per cardio, abnormal stress test was related to artifact from breast attenuation and not ischemia.No additional cardiac testing indicated per cardio. DVT prophyalxis: sc heparin Disposition: Once she gets her 3rd dialysis session. She would be medically stable for discharge. Needs home oxygen assessment and OP dialysis to be arranged Admission and Anticipated Discharge Date Admission Date: May 17, 2021 Anticipated date of discharge: 05/24/21 Subjective Did well on trial of anoro Ellipta yesterday. Gilbert her chest tightness improved Tolerated CPAP trial overnight as well, she is motivated to follow up with Pulmonology after discharge and to get refitted for CPAP Inquiring if she can be taken off telemetry briefly so she may shower Physical Exam Physical Exam: No acute distress, pleasant and comfortable Respiratory: no wheezing/rhonchi/rales Cardiovascular: regular rate and rhythm, no murmurs/rubs/gallops Gastrointestinal (Abdomen): soft, non tender, non distended Musculoskeletal: No edema Neurologic: awake, alert, spontaneously moving extremities Results & Data Results & Data ([facility]) Vital Signs (Past 12 Hours) Vital Signs Temp Pulse Pulse Resp BP BP Pulse Ox 05/23/21 11:55 36.5 C 79 18 116/69 90 05/23/21 07:10 82 05/23/21 06:41 37.0 C 79 20 147/70 H 94 05/23/21 03:20 36.3 C L 75 20 147/68 H 93 Laboratory Results [facility] 05/23/21 06:07 Sodium 137 Potassium 3.6 Chloride 101 Carbon Dioxide 25 BUN 28 H Creatinine 5.35 H* D Glucose 90 Calcium 11.5 H Liver Function 05/23/21 Range/Units 06:07 Total Bilirubin 0.5 (0.2-1.0) mg/dl AST 14 (13-39) U/L ALT 8 (7-52) U/L Alkaline Phosphatase 46 (34-104) U/L Albumin 3.5 (3.4-5.0) gm/dl Medications Administered Current Inpatient Medications Acetaminophen (Acetaminophen 325 Mg Tab) 650 mg PO Q4H PRN PRN Reason: pain Stop: 06/17/21 10:01 Last Admin: 05/22/21 19:01 Dose: 650 mg Documented by: Albuterol (Albuterol Hfa 8 Gm Inhaler) 2 puffs INH Q4H PRN PRN Reason: sob Stop: 06/22/21 08:29 Amlodipine Besylate (Amlodipine Besylate 5 Mg Tab) 5 mg PO HS VU Stop: 06/16/21 21:53 Last Admin: 05/22/21 20:42 Dose: 5 mg Documented by: Aspirin (Aspirin 81 Mg Ectab) 81 mg PO QAM [facility] Stop: 06/17/21 08:59 Last Admin: 05/23/21 09:15 Dose: 81 mg Documented by: Benzonatate (Benzonatate 100 Mg Capsule) 100 mg PO TID [facility] Stop: 06/17/21 00:00 Last Admin: 05/23/21 13:32 Dose: 100 mg Documented by: Carvedilol (Carvedilol 12.5 Mg Tab) 37.5 mg PO BID [facility] Stop: 06/16/21 21:53 Last Admin: 05/23/21 09:17 Dose: 37.5 mg Documented by: Famotidine (Famotidine 10 Mg Tablet) 10 mg PO QAM [facility] Stop: 06/20/21 08:59 Last Admin: 05/23/21 09:16 Dose: 10 mg Documented by: Fluticasone Propionate (Fluticasone Propionate Na Spr 16 Gm Btl) 2 sprays NA DAILY PRN PRN Reason: Allergy Symptoms Stop: 06/16/21 21:53 Fluticasone Propionate (Fluticasone Propionate Na Spr 16 Gm Btl) 1 sprays NA BID [facility] Stop: 06/19/21 20:59 Last Admin: 05/23/21 09:27 Dose: Not Given Documented by: Furosemide (Furosemide 80 Mg Tab) 80 mg PO QAM [facility] Stop: 06/17/21 08:59 Last Admin: 05/23/21 09:16 Dose: 80 mg Documented by: Gabapentin (Gabapentin 100 Mg Cap) 100 mg PO BID [facility] Stop: 06/16/21 21:53 Last Admin: 05/23/21 09:18 Dose: 100 mg Documented by: Guaifenesin (Guaifenesin Sugar Free 200 Mg/10 Ml Udc) 200 mg PO Q6H PRN PRN Reason: Cough Stop: 06/17/21 00:00 Last Admin: 05/23/21 13:29 Dose: 200 mg Documented by: Heparin Sodium (Porcine) (Heparin Sod 5,000 Unit/0.5 Ml Vial) 5,000 units SQ Q12 [facility] Stop: 06/21/21 20:59 Last Admin: 05/23/21 09:19 Dose: 5,000 units Documented by: Hydralazine HCl (Hydralazine Hcl 25 Mg Tab) 25 mg PO TID [facility] Stop: 06/16/21 21:53 Last Admin: 05/23/21 13:30 Dose: 25 mg Documented by: Levothyroxine Sodium (Levothyroxine Sodium 50 Mcg Tablet) 50 mcg PO DAILYBB [facility] Stop: 06/17/21 06:29 Last Admin: 05/23/21 05:56 Dose: 50 mcg Documented by: Lorazepam (Lorazepam 0.5 Mg Tab) 0.5 mg PO TID PRN PRN Reason: Anxiety Stop: 06/20/21 14:55 Last Admin: 05/22/21 11:59 Dose: 0.5 mg Documented by: Oxycodone/Acetaminophen (Oxycodone/Acetaminophen 5mg/325mg Tab) 1 tab PO Q6 PRN PRN Reason: Pain Stop: 05/31/21 21:53 Last Admin: 05/20/21 21:27 Dose: 1 tab Documented by: Pantoprazole Sodium (Pantoprazole 40 Mg Tab) 40 mg PO QAM [facility] Stop: 06/18/21 19:14 Last Admin: 05/23/21 05:56 Dose: 40 mg Documented by: Prednisone (Prednisone 5 Mg Tab) 5 mg PO QAM [facility] Stop: 06/17/21 08:59 Last Admin: 05/23/21 09:16 Dose: 5 mg Documented by: Saccharomyces Boulardii (Saccharomyces Boulardii 250 Mg Cap) 250 mg PO DAILY [facility] Stop: 06/21/21 08:59 Last Admin: 05/23/21 09:16 Dose: 250 mg Documented by: Sodium Chloride (Sodium Chloride 0.65% Na Soln 45 Ml ([place])) 0 sprays NA PRN PRN PRN Reason: Dryness Stop: 06/19/21 19:38 Last Admin: 05/20/21 21:28 Dose: 225 sprays Documented by: Tacrolimus (Tacrolimus 1 Mg Cap) 1 mg PO BID [facility] Stop: 06/16/21 21:53 Last Admin: 05/23/21 09:18 Dose: 1 mg Documented by: Umeclidinium/Vilanterol (Umeclidinium/Vilanterol 62.5/25mcg 7 Puffs/Inhaler) 1 puffs INH DAILY [facility]U Stop: 06/21/21 12:59 Last Admin: 05/23/21 08:48 Dose: 1 puffs Documented by:
[2021-05-23] MEDS: ACETAMINOPHEN 325 MG TAB PO PRN (15:24)
[2021-05-23] MEDS: oxyCODONE/ACETAMINOPHEN 5mg/325mg TAB PO PRN (21:19)
[2021-05-23] MEDS: amLODIPine BESYLATE 5 MG TAB PO SCH (23:43)
[2021-05-24] MEDS: LEVOTHYROXINE SODIUM 50 MCG TABLET PO SCH (06:17)
[2021-05-24] MEDS: PANTOprazole 40 MG TAB PO SCH (07:11)
[2021-05-24] MEDS: FAMOTIDINE 10 MG TABLET PO SCH (07:11)
[2021-05-24] MEDS ORDERED: SODIUM CHLORIDE 0.9% 1000ML 1,000 ML IV PRN (08:05)
[2021-05-24] MEDS ORDERED: HEPARIN SOD (PORCINE) 1000 UNIT/ML IV ONE (08:05)
[2021-05-24 08:16] LABS: Albumin Globulin Ratio 1.8 (0.9-2); Albumin Level 3.4 gm/dl (3.4-5.0); BUN Creatinine Ratio 5.5 (10-20); Bilirubin,Total 0.6 mg/dl (0.2-1.0); Calcium 11.4 mg/dl (8.5-10.1); Creatinine Clr Calc Pharmacy 10.8 ml/min; Est GFR (African American) 7.7 ml/min; Est GFR (Non-African American) 6.6 ml/min; Globulin 1.9 gm/dl (2.5-4.0); Potassium 3.4 mmol/L (3.5-5.1); Total Protein 5.3 gm/dl (6.0-8.3)
[2021-05-24] MEDS: FLUTICASONE PROPIONATE NA SPR 16 GM BTL SCH ×2 (09:00→20:20)
[2021-05-24] MEDS: hydrALAZINE HCL 25 MG TAB PO SCH ×3 (09:31→20:18)
[2021-05-24] MEDS: carvediloL 12.5 MG TAB PO SCH ×2 (09:31→20:17)
[2021-05-24] MEDS: BENZONATATE 100 MG CAPSULE PO SCH ×3 (12:12→20:22)
[2021-05-24] MEDS: predniSONE 5 MG TAB PO SCH (12:16)
[2021-05-24] MEDS: UMECLIDINIUM/VILANTEROL 62.5/25MCG 7 PUFFS/INHALER INH SCH (12:17)
[2021-05-24] MEDS: SACCHAROMYCES BOULARDII 250 MG CAP PO SCH (12:17)
[2021-05-24] MEDS: FUROSEMIDE 80 MG TAB PO SCH (12:17)
[2021-05-24] MEDS: GABAPENTIN 100 MG CAP PO SCH ×2 (12:17→20:20)
[2021-05-24] MEDS: ASPIRIN 81 MG ECTAB PO SCH (12:17)
[2021-05-24] MEDS: TACROLIMUS 1 MG CAP PO SCH ×2 (12:18→20:19)
[2021-05-24] MEDS: HEPARIN SOD 5,000 UNIT/0.5 ML VIAL SQ SCH ×2 (12:18→20:18)
[2021-05-24] MEDS: LORazepam 0.5 MG TAB PO PRN (12:25)
--- NOTE | 2021-05-24 13:13 | Nuclear Medicine Report ---
NM parathyroid CLINICAL HISTORY: Hypercalcemia and Abnormal PTH COMPARISON STUDY: No previous studies for comparison. TECHNIQUE: 20.01 mCi of technetium 99m Sestamibi was injected IV at 7:55 AM on May 24, 2021. Static images of the neck were as well as SPECT imaging was performed at 15 minutes and 3 hours following r adiotracer administration. FINDINGS: Note is made of moderate asymmetric radiotracer uptake projecting over the mid to lower katya e of the right thyroid lobe on the early images. This appears to be within the right thyroid lobe alt latoya an adjacent parathyroid adenoma is within the differential. This demonstrates radiotracer reten tion on the delayed images. No additional foci of abnormal radiotracer uptake are identified. IMPRESSION: Moderate asymmetric radiotracer uptake within or adjacent to the mid to lower pole of th e right thyroid lobe. This favors uptake within the thyroid gland and could reflect uptake within a t hyroid nodule or intrathyroidal parathyroid adenoma. A right inferior parathyroid adenoma is also wit hin the differential. A thyroid ultrasound is recommended for further evaluation. ACT 112: Negative or not required by law. Electronically signed by: Larry Atkinson M.D. 05/24/2021 12:48 PM
--- NOTE | 2021-05-24 14:38 | Hospitalist Progress Note ---
Date of Service May 24, 2021 Assessment & Plan (1) Hypoxia: (2) Dyspnea on exertion: (3) Suspected pulmonary hypertension: (4) CKD (chronic kidney disease) stage 5, GFR less than 15 ml/min: (5) Essential hypertension: (6) Morbid obesity: (7) UTI (urinary tract infection): (8) Hypercalcemia: Plan: 65 yo female with severe [place] not on CPAP, failed kidney transplant with CKD5, HTN, presented to the ED from PCP office for hypoxia and VU, for the past month worsening over the past week. 1. Acute Hypoxic respiratory failure -O2 sat 86% on RA, currently on 3L NC -Multifactorial: likely due to untreated [place] and obesity hypoventilation syndrome, component of renal disease and possibly undiagnosed COPD with her 50 pack year smoking history. Appreciate Pulmonology input. Patient would benefit from outpatient PFTs. Tolerated CPAP here, will need repeat titration study with her recent weight loss. Improved with trial of Anoro Ellipta - 2 Step ordered 2. ESRD- progressed from CKD stage V with uremic symptoms. 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 S/p tunneled catheter 05/20. First dialysis 05/20, second dialysis session 05/21, third session will be today -Need OP dialysis to be arranged 3. Morbid obesity with severe CHEYENNE- BMI 35. Severe [place] but never used CPAP -recent weight loss. Ongoing weight loss counseling and encouragement 4. HTN- - stable, continue coreg, amlodipine with hold parameters 5. E coli UTI -Urine cultures +E coli, sensitive to Ceftriaxone. s/pr 5 day treatment course 6. Hypercalcemia- -Ca 11.3 -. PTH 68 inappropriately high, VIt D 60, PTHrp pending. -likely from CKD. s/p iv lasix 05/18 continue po lasix. -parathyroid nuclear scan ordered by nephrology 7. Abnormal OP stress test -no diagnostic cath was done due to CKD5. Per cardio, abnormal stress test was related to artifact from breast attenuation and not ischemia.No additional cardiac testing indicated per cardio. DVT prophyalxis: sc heparin Disposition: Once she gets her 3rd dialysis session. She would be medically stable for discharge. Needs home oxygen assessment and OP dialysis to be ar ranged Admission and Anticipated Discharge Date Admission Date: May 17, 2021 Subjective Shortness of breath improved Had nuclear scan this morning and going for dialysis later today "I'm waiting for them to come get me" Physical Exam Physical Exam: sleeping comfortably, easily arousable, no acute distress Respiratory: breathing comfortably on NC, no wheezing/rhonchi/rales Cardiovascular: regular rate and rhythm, no murmurs/rubs/gallops Gastrointestinal (Abdomen): soft, non tender Musculoskeletal: no edema Neurologic: awake, alert, spontaneously moving extremities Results & Data Results & Data ([facility]) Vital Signs (Past 12 Hours) Vital Signs Temp Pulse Resp BP Pulse Ox 05/24/21 11:28 36.6 C 78 16 122/70 93 05/24/21 07:37 37.1 C 76 17 152/74 H 93 Laboratory Results [facility] 05/24/21 06:58 Sodium 136 Potassium 3.4 L Chloride 99 Carbon Dioxide 25 BUN 34 H Creatinine 6.19 H* D Glucose 89 Calcium 11.4 H Liver Function 05/24/21 Range/Units 06:58 Total Bilirubin 0.6 (0.2-1.0) mg/dl AST 12 L (13-39) U/L ALT 8 (7-52) U/L Alkaline Phosphatase 46 (34-104) U/L Albumin 3.4 (3.4-5.0) gm/dl Medications Administered Current Inpatient Medications Acetaminophen (Acetaminophen 325 Mg Tab) 650 mg PO Q4H PRN PRN Reason: pain Stop: 06/17/21 10:01 Last Admin: 05/23/21 15:24 Dose: 650 mg Documented by: Albuterol (Albuterol Hfa 8 Gm Inhaler) 2 puffs INH Q4H PRN PRN Reason: sob Stop: 06/22/21 08:29 Amlodipine Besylate (Amlodipine Besylate 5 Mg Tab) 5 mg PO HS [facility] Stop: 06/16/21 21:53 Last Admin: 05/23/21 23:43 Dose: 5 mg Documented by: Aspirin (Aspirin 81 Mg Ectab) 81 mg PO QAM [facility] Stop: 06/17/21 08:59 Last Admin: 05/24/21 12:17 Dose: 81 mg Documented by: Benzonatate (Benzonatate 100 Mg Capsule) 100 mg PO TID [facility] Stop: 06/17/21 00:00 Last Admin: 05/24/21 13:34 Dose: Not Given Documented by: Carvedilol (Carvedilol 12.5 Mg Tab) 37.5 mg PO BID [facility] Stop: 06/16/21 21:53 Last Admin: 05/24/21 09:31 Dose: Not Given Documented by: Famotidine (Famotidine 10 Mg Tablet) 10 mg PO QAM [facility] Stop: 06/20/21 08:59 Last Admin: 05/24/21 07:11 Dose: 10 mg Documented by: Fluticasone Propionate (Fluticasone Propionate Na Spr 16 Gm Btl) 2 sprays NA DAILY PRN PRN Reason: Allergy Symptoms Stop: 06/16/21 21:53 Fluticasone Propionate (Fluticasone Propionate Na Spr 16 Gm Btl) 1 sprays NA BID [facility]U Stop: 06/19/21 20:59 Last Admin: 05/24/21 09:00 Dose: Not Given Documented by: Furosemide (Furosemide 80 Mg Tab) 80 mg PO QAM [facility] Stop: 06/17/21 08:59 Last Admin: 05/24/21 12:17 Dose: 80 mg Documented by: Gabapentin (Gabapentin 100 Mg Cap) 100 mg PO BID [facility] Stop: 06/16/21 21:53 Last Admin: 05/24/21 12:17 Dose: 100 mg Documented by: Guaifenesin (Guaifenesin Sugar Free 200 Mg/10 Ml Udc) 200 mg PO Q6H PRN PRN Reason: Cough Stop: 06/17/21 00:00 Last Admin: 05/23/21 21:19 Dose: 200 mg Documented by: Heparin Sodium (Porcine) (Heparin Sod 5,000 Unit/0.5 Ml Vial) 5,000 units SQ Q12 [facility] Stop: 06/21/21 20:59 Last Admin: 05/24/21 12:18 Dose: 5,000 units Documented by: Hydralazine HCl (Hydralazine Hcl 25 Mg Tab) 25 mg PO TID [facility] Stop: 06/16/21 21:53 Last Admin: 05/24/21 13:32 Dose: Not Given Documented by: Levothyroxine Sodium (Levothyroxine Sodium 50 Mcg Tablet) 50 mcg PO DAILYBB [facility] Stop: 06/17/21 06:29 Last Admin: 05/24/21 06:17 Dose: 50 mcg Documented by: Lorazepam (Lorazepam 0.5 Mg Tab) 0.5 mg PO TID PRN PRN Reason: Anxiety Stop: 06/20/21 14:55 Last Admin: 05/24/21 12:25 Dose: 0.5 mg Documented by: Oxycodone/Acetaminophen (Oxycodone/Acetaminophen 5mg/325mg Tab) 1 tab PO Q6 PRN PRN Reason: Pain Stop: 05/31/21 21:53 Last Admin: 05/23/21 21:19 Dose: 1 tab Documented by: Pantoprazole Sodium (Pantoprazole 40 Mg Tab) 40 mg PO QAM [facility] Stop: 06/18/21 19:14 Last Admin: 05/24/21 07:11 Dose: 40 mg Documented by: Prednisone (Prednisone 5 Mg Tab) 5 mg PO QAM [facility] Stop: 06/17/21 08:59 Last Admin: 05/24/21 12:16 Dose: 5 mg Documented by: Saccharomyces Boulardii (Saccharomyces Boulardii 250 Mg Cap) 250 mg PO DAILY [facility] Stop: 06/21/21 08:59 Last Admin: 05/24/21 12:17 Dose: 250 mg Documented by: Sodium Chloride (Sodium Chloride 0.65% Na Soln 45 Ml ([place])) 0 sprays NA PRN PRN PRN Reason: Dryness Stop: 06/19/21 19:38 Last Admin: 05/20/21 21:28 Dose: 225 sprays Documented by: Tacrolimus (Tacrolimus 1 Mg Cap) 1 mg PO BID [facility] Stop: 06/16/21 21:53 Last Admin: 05/24/21 12:18 Dose: 1 mg Documented by: Umeclidinium/Vilanterol (Umeclidinium/Vilanterol 62.5/25mcg 7 Puffs/Inhaler) 1 puffs INH DAILY [facility] Stop: 06/21/21 12:59 Last Admin: 05/24/21 12:17 Dose: 1 puffs Documented by:
--- NOTE | 2021-05-24 16:24 | Nephrology Progress Note ---
Date of Service May 24, 2021 Assessment & Plan (1) ESRD (end stage renal disease) on dialysis: Plan: on MWF HD via [facility] -arrange AVF revision as OP -> needs OP dialysis arrangements for [facility] under my care -for routine HD today and will as it is her 3rd tx will work on fluid removal (2) Failed kidney transplant: Plan: need to confirm w/ renal txplt team [facility] during week that belatacept has been stopped -continue tacrolimus and prednisone current dosing (3) Hypercalcemia: Plan: worsening today; work up pending; ? tertiary hyperPTH; PTH inappropriate at 69 (12-88); 25 OHD 60; PTHrp pending; SPEP >> Faint indistinct bands are highlighted by one or more immunofixation reagents. In most cases, this pattern represents reactive inflammatory conditions with immune complexes or oligoclonal immunoglobulins. However, a clonal B-cell or plasma cell disorder cannot be completely excluded. 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), however would have low threshold given immunosuppression hx to have heme evaluate her as OP Admission and Anticipated Discharge Date Admission Date: May 17, 2021 Subjective seen and evaluated on rounds this am at 1015 approx; was in between steps of nuclear med parathryoid scan; also for HD today; c/o BP and VACA; breathing at baseline Review of Systems Review of Systems: All systems reviewed & are unremarkable except as noted in Subjective Physical Exam Constitutional: well developed and well nourished; no acute distress Eyes: EOM intact bilaterally ENMT: Ears: no external ear abnormality Nose: no external nose abnormality Mouth: + dry oral mucous membranes Neck: no nuchal rigidity Respiratory: normal respiratory effort Auscultation: + diminished lung sounds Cardiovascular: Rate/Rhythm: regular rate and regular rhythm Extremities: no edema Gastrointestinal (Abdomen): Inspection/Auscultation: normal bowel sounds Percussion/Palpation: abdomen soft; abdomen nontender Musculoskeletal: Extremities: strength 5/5 throughout Skin: no rashes, warm and dry Neurologic: gregory, fluent speech, no tremor Psychiatric: Orientation: alert and oriented x 3 Affect: + anxious affect Results & Data ([facility]) Vital Signs (Past 12 Hours) Vital Signs Temp Pulse Pulse Pulse Resp BP BP 03/14/22 16:15 79 140/65 05/24/21 16:05 81 20 05/24/21 15:45 80 138/69 05/24/21 15:15 79 145/67 H 05/24/21 14:45 80 132/67 05/24/21 14:30 36.9 C 80 05/24/21 11:28 36.6 C 78 16 122/70 05/24/21 07:37 37.1 C 76 17 152/74 H Pulse Ox 05/24/21 16:15 05/24/21 16:05 05/24/21 15:45 05/24/21 15:15 05/24/21 14:45 05/24/21 14:30 05/24/21 11:28 93 05/24/21 07:37 93 Laboratory Results 05/20/21 07:58 05/24/21 06:58
[2021-05-24] MEDS ORDERED: Nursing to Pharmacy Communication SCH (19:00)
[2021-05-24] MEDS: amLODIPine BESYLATE 5 MG TAB PO SCH (20:16)
[2021-05-25] MEDS: guaiFENesin SUGAR FREE 200 MG/10 ML UDC PO PRN ×2 (04:54→14:55)
[2021-05-25] MEDS: LEVOTHYROXINE SODIUM 50 MCG TABLET PO SCH (04:57)
[2021-05-25] MEDS ORDERED: Nursing to Pharmacy Communication SCH (05:45)
[2021-05-25] MEDS: oxyCODONE/ACETAMINOPHEN 5mg/325mg TAB PO PRN (07:48)
[2021-05-25] MEDS: ASPIRIN 81 MG ECTAB PO SCH (08:44)
[2021-05-25] MEDS: SACCHAROMYCES BOULARDII 250 MG CAP PO SCH (08:44)
[2021-05-25] MEDS: FUROSEMIDE 80 MG TAB PO SCH (08:45)
[2021-05-25] MEDS: TACROLIMUS 1 MG CAP PO SCH ×2 (08:45→20:51)
[2021-05-25] MEDS: carvediloL 12.5 MG TAB PO SCH ×2 (08:45→20:51)
[2021-05-25] MEDS: FAMOTIDINE 10 MG TABLET PO SCH (08:45)
[2021-05-25] MEDS: GABAPENTIN 100 MG CAP PO SCH ×2 (08:46→20:51)
[2021-05-25] MEDS: FLUTICASONE PROPIONATE NA SPR 16 GM BTL SCH ×3 (08:46→20:52)
[2021-05-25] MEDS: predniSONE 5 MG TAB PO SCH (08:46)
[2021-05-25] MEDS: hydrALAZINE HCL 25 MG TAB PO SCH ×3 (08:46→20:51)
[2021-05-25] MEDS: UMECLIDINIUM/VILANTEROL 62.5/25MCG 7 PUFFS/INHALER INH SCH (08:47)
[2021-05-25] MEDS: HEPARIN SOD 5,000 UNIT/0.5 ML VIAL SQ SCH (08:47)
[2021-05-25] MEDS: BENZONATATE 100 MG CAPSULE PO SCH ×3 (08:56→20:55)
[2021-05-25] MEDS ORDERED: OMEPRAZOLE 40 MG PO SCH (09:00)
--- NOTE | 2021-05-25 13:52 | Hospitalist Progress Note ---
Date of Service May 25, 2021 Assessment & Plan (1) Hypoxia: (2) Dyspnea on exertion: (3) Suspected pulmonary hypertension: (4) CKD (chronic kidney disease) stage 5, GFR less than 15 ml/min: (5) Essential hypertension: (6) Morbid obesity: (7) UTI (urinary tract infection): (8) Hypercalcemia: Plan: 65 yo female with severe CHEYENNE not on CPAP, failed kidney transplant with CKD5, HTN, presented to the ED from PCP office for hypoxia and VU, for the past month worsening over the past week. 1. Acute Hypoxic respiratory failure -O2 sat 86% on RA, currently on 3L NC -Multifactorial: likely due to untreated CHEYENNE and obesity hypoventilation syndrome, component of renal disease and possibly undiagnosed COPD with her 50 pack year smoking history. Appreciate Pulmonology input. Patient would benefit from outpatient PFTs. Tolerated CPAP here, will need repeat titration study with her recent weight loss. Improved with trial of Anoro Ellipta - 2 Step ordered -will need follow up with Pulm and sleep medicine at outpatient 2. ESRD- progressed from CKD stage V with uremic symptoms. 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 S/p tunneled catheter 05/20. First dialysis 05/20, second dialysis session 05/21, third session 05/24 -Need OP dialysis to be arranged -to undergo Permcath placement tomorrow -will need AV fistula revision as OP 3. Morbid obesity with severe CHEYENNE- BMI 35. Severe CHEYENNE but never used CPAP -recent weight loss. Ongoing weight loss counseling and encouragement 4. HTN- - stable, continue coreg, amlodipine with hold parameters 5. E coli UTI -Urine cultures +E coli, sensitive to Ceftriaxone. s/p 5 day treatment course 6. Hypercalcemia- -Ca 11.3 -. PTH 68 inappropriately high, VIt D 60, PTHrp pending. -likely from CKD. s/p iv lasix 05/18 continue po lasix. -parathyroid nuclear scan ordered by nephrology and reviewed -possible parathyroid adenoma in differential, recommending thyroid US for further eval - ordered 7. Abnormal OP stress test -no diagnostic cath was done due to CKD5. Per cardio, abnormal stress test was related to artifact from breast attenuation and not ischemia.No additional cardiac testing indicated per cardio. DVT prophyalxis: sc heparin Disposition: Will get permcath tomorrow, will need OP HD arranged at [facility]. Needs home oxygen assessment. Pt was seen and examined in collaboration with Dr. Disla, please see addendum Admission and Anticipated Discharge Date Admission Date: May 17, 2021 Supervising Physician Co-Signing Physician Notes Patient was seen and evaluated independently. Chart reviewed. Case discussed with LEYLA. Additional evaluation of her parathyroid gland can be pursued as an outpatient. She should follow up with Endocrine and ENT as outpatient for management of her hypercalcemia/hyperparathyroidism. Otherwise agree with assessment and plan as above. Subjective Pt was seen and examined in room 352-2. Follow up acute hypoxic resp failure, CKD-5 now on HD. Pt was lying in bed. States going for permcath tomorrow. Denies f/c/s, chest pain, sob at rest, n/v/d. She still makes some urine. On O2 lyingin bed. Review of Systems Review of Systems: All systems reviewed & are unremarkable except as noted in HPI & below Physical Exam Physical Exam: Gen: WD/WN, F, NAD, A&O x3, flat affect HEENT: Normocephalic, atraumatic, conjunctivae moist, sclerae anicteric, mucous membranes moist. Lung: Clear to Auscultation bilaterally, on oxygen 2 L via NC, no wheezes/rales/rhonchi Heart: Regular rate, regular rhythm, no murmurs, rubs, or gallops Abdomen: Soft, NT, ND +BS x 4 Extremities: No edema Skin: Warm, no rash, negative turgor. Results & Data Results & Data ([facility]) Vital Signs (Past 12 Hours) Vital Signs Temp Pulse Pulse Pulse Pulse Pulse Pulse 05/25/21 09:47 80 90 86 83 80 05/25/21 07:11 36.8 C 77 05/25/21 02:40 36.9 C 83 Resp Resp Resp Resp Resp Resp BP 05/25/21 09:47 18 24 22 20 18 05/25/21 07:11 16 128/62 05/25/21 02:40 18 BP Pulse Ox Pulse Ox Pulse Ox Pulse Ox Pulse Ox Pulse Ox 05/25/21 09:47 91 90 88 L 92 87 L 05/25/21 07:11 94 05/25/21 02:40 128/72 93 Medications Administered Current Inpatient Medications Acetaminophen (Acetaminophen 325 Mg Tab) 650 mg PO Q4H PRN PRN Reason: pain Stop: 06/17/21 10:01 Last Admin: 05/23/21 15:24 Dose: 650 mg Documented by: Albuterol (Albuterol Hfa 8 Gm Inhaler) 2 puffs INH Q4H PRN PRN Reason: sob Stop: 06/22/21 08:29 Last Admin: 05/24/21 15:57 Dose: 2 puffs Documented by: Amlodipine Besylate (Amlodipine Besylate 5 Mg Tab) 5 mg PO HS COUNT INCLUDES THE [facility] Stop: 06/16/21 21:53 Last Admin: 05/24/21 20:16 Dose: 5 mg Documented by: Aspirin (Aspirin 81 Mg Ectab) 81 mg PO QAM COUNT INCLUDES THE [facility] Stop: 06/17/21 08:59 Last Admin: 05/25/21 08:44 Dose: 81 mg Documented by: Benzonatate (Benzonatate 100 Mg Capsule) 100 mg PO TID COUNT INCLUDES THE [facility] Stop: 06/17/21 00:00 Last Admin: 05/25/21 08:56 Dose: 100 mg Documented by: Carvedilol (Carvedilol 12.5 Mg Tab) 37.5 mg PO BID COUNT INCLUDES THE [facility] Stop: 06/16/21 21:53 Last Admin: 05/25/21 08:45 Dose: 37.5 mg Documented by: Famotidine (Famotidine 10 Mg Tablet) 10 mg PO QAM COUNT INCLUDES THE [facility] Stop: 06/20/21 08:59 Last Admin: 05/25/21 08:45 Dose: 10 mg Documented by: Fluticasone Propionate (Fluticasone Propionate Na Spr 16 Gm Btl) 2 sprays NA DAILY PRN PRN Reason: Allergy Symptoms Stop: 06/16/21 21:53 Fluticasone Propionate (Fluticasone Propionate Na Spr 16 Gm Btl) 1 sprays NA BID COUNT INCLUDES THE [facility] Stop: 06/19/21 20:59 Last Admin: 05/25/21 08:50 Dose: Not Given Documented by: Furosemide (Furosemide 80 Mg Tab) 80 mg PO QAM COUNT INCLUDES THE [facility] Stop: 06/17/21 08:59 Last Admin: 05/25/21 08:45 Dose: 80 mg Documented by: Gabapentin (Gabapentin 100 Mg Cap) 100 mg PO BID COUNT INCLUDES THE [facility] Stop: 06/16/21 21:53 Last Admin: 05/25/21 08:46 Dose: 100 mg Documented by: Guaifenesin (Guaifenesin Sugar Free 200 Mg/10 Ml Udc) 200 mg PO Q6H PRN PRN Reason: Cough Stop: 06/17/21 00:00 Last Admin: 05/25/21 04:54 Dose: 200 mg Documented by: Heparin Sodium (Porcine) (Heparin Sod 5,000 Unit/0.5 Ml Vial) 5,000 units SQ Q12 VU Stop: 06/21/21 20:59 Last Admin: 05/25/21 08:47 Dose: 5,000 units Documented by: Hydralazine HCl (Hydralazine Hcl 25 Mg Tab) 25 mg PO TID COUNT INCLUDES THE [facility] Stop: 06/16/21 21:53 Last Admin: 05/25/21 08:46 Dose: 25 mg Documented by: Cefazolin Sodium (Ancef 2000mg) 2,000 mg in 15 mls @ 3.75 mls/min IV PREOP ONE Stop: 05/26/21 11:03 Levothyroxine Sodium (Levothyroxine Sodium 50 Mcg Tablet) 50 mcg PO DAILYBB COUNT INCLUDES THE [facility] Stop: 06/17/21 06:29 Last Admin: 05/25/21 04:57 Dose: 50 mcg Documented by: Lorazepam (Lorazepam 0.5 Mg Tab) 0.5 mg PO TID PRN PRN Reason: Anxiety Stop: 06/20/21 14:55 Last Admin: 05/24/21 12:25 Dose: 0.5 mg Documented by: Omeprazole 40mg ~ Non-Formulary Patient's Own Med 1 ea PO Q24H COUNT INCLUDES THE [facility] Stop: 06/25/21 06:29 Oxycodone/Acetaminophen (Oxycodone/Acetaminophen 5mg/325mg Tab) 1 tab PO Q6 PRN PRN Reason: Pain Stop: 05/31/21 21:53 Last Admin: 05/25/21 07:48 Dose: 1 tab Documented by: Prednisone (Prednisone 5 Mg Tab) 5 mg PO QAM COUNT INCLUDES THE [facility] Stop: 06/17/21 08:59 Last Admin: 05/25/21 08:46 Dose: 5 mg Documented by: Saccharomyces Boulardii (Saccharomyces Boulardii 250 Mg Cap) 250 mg PO DAILY COUNT INCLUDES THE [facility] Stop: 06/21/21 08:59 Last Admin: 05/25/21 08:44 Dose: 250 mg Documented by: Sodium Chloride (Sodium Chloride 0.65% Na Soln 45 Ml ([place])) 0 sprays NA PRN PRN PRN Reason: Dryness Stop: 06/19/21 19:38 Last Admin: 05/20/21 21:28 Dose: 225 sprays Documented by: Tacrolimus (Tacrolimus 1 Mg Cap) 1 mg PO BID VU Stop: 06/16/21 21:53 Last Admin: 05/25/21 08:45 Dose: 1 mg Documented by: Umeclidinium/Vilanterol (Umeclidinium/Vilanterol 62.5/25mcg 7 Puffs/Inhaler) 1 puffs INH DAILY VU Stop: 06/21/21 12:59 Last Admin: 05/25/21 08:47 Dose: 1 puffs Documented by:
[2021-05-25] MEDS: HEPARIN SOD (PORCINE) 1000 UNIT/ML IV SCH ×3 (19:05→19:08)
[2021-05-25] MEDS: amLODIPine BESYLATE 5 MG TAB PO SCH (20:50)
[2021-05-26] MEDS: ACETAMINOPHEN 325 MG TAB PO PRN ×2 (01:40→20:42)
[2021-05-26] MEDS ORDERED: OMEPRAZOLE 40 MG PO SCH (05:30)
[2021-05-26] MEDS: LEVOTHYROXINE SODIUM 50 MCG TABLET PO SCH (06:10)
[2021-05-26] MEDS: OMEPRAZOLE 40 MG PO SCH (06:10)
[2021-05-26] MEDS ORDERED: SODIUM CHLORIDE 0.9% 1000ML 1,000 ML IV PRN (08:01)
[2021-05-26] MEDS ORDERED: EPOETIN ALFA 4,000 UNIT/ML VIAL IV ONE (08:01)
[2021-05-26] MEDS: FUROSEMIDE 80 MG TAB PO SCH ×2 (08:51→09:00)
[2021-05-26] MEDS: carvediloL 12.5 MG TAB PO SCH ×3 (08:51→20:37)
[2021-05-26] MEDS: FAMOTIDINE 10 MG TABLET PO SCH (08:51)
[2021-05-26] MEDS: SACCHAROMYCES BOULARDII 250 MG CAP PO SCH (08:51)
[2021-05-26] MEDS: predniSONE 5 MG TAB PO SCH (08:52)
[2021-05-26] MEDS: GABAPENTIN 100 MG CAP PO SCH ×2 (08:52→20:37)
[2021-05-26] MEDS: ASPIRIN 81 MG ECTAB PO SCH (08:52)
[2021-05-26] MEDS: hydrALAZINE HCL 25 MG TAB PO SCH ×4 (08:52→20:38)
[2021-05-26] MEDS: UMECLIDINIUM/VILANTEROL 62.5/25MCG 7 PUFFS/INHALER INH SCH (08:53)
[2021-05-26] MEDS: TACROLIMUS 1 MG CAP PO SCH ×2 (08:53→20:38)
[2021-05-26] MEDS: BENZONATATE 100 MG CAPSULE PO SCH ×3 (08:58→20:42)
[2021-05-26] MEDS: FLUTICASONE PROPIONATE NA SPR 16 GM BTL SCH ×2 (08:58→20:34)
--- NOTE | 2021-05-26 09:02 | Ultrasound Report ---
ULTRASOUND OF THE THYROID GLAND CLINICAL HISTORY: Abnormal nuclear parathyroid scan. COMPARISON STUDY: Nuclear thyroid uptake and scan dated 09/01/2010. Nuclear parathyroid scan dated 05/11. TECHNIQUE: Real-time, grayscale, and color flow sonography of the thyroid gland is performed utilizin g a high-frequency linear transducer. Images are reviewed in the transverse and longitudinal planes. FINDINGS: Right lobe: The right lobe of the thyroid gland is top normal in size and heterogeneous in echotextur e, measuring 5.8 x 1.5 x 2.0 cm. The right lobe appears hyperemic on color imaging. A heterogeneous h yperechoic nodule in the lower pole measures 2.4 x 1.4 x 1.8 cm. This shows internal flow on color im aging. Left lobe: The left lobe of the thyroid gland is top normal in size and heterogeneous in echotexture, measuring 5.3 x 1.5 x 1.6 cm. The left lobe appears hyperemic on color imaging. A slightly hypoechoi c nodule in the midpole measures 0.7 x 0.6 x 0.8 cm. hypoechoic solid nodules in the lower pole measu re 1.1 x 1.0 x 1.1 cm and 1.2 x 0.9 x 1.0 cm. Isthmus: The thyroid isthmus is thickened and heterogeneous, measuring 0.6 cm in AP diameter. IMPRESSION: 1. Heterogeneous and hyperemic thyroid gland as above. Correlate clinically and with serum thyroid fu nction studies for evidence of thyroiditis. 2. There is a 2.4 cm hypervascular solid nodule in the right lower pole, possibly corresponding to th e abnormality seen on the nuclear parathyroid scan. Consider fine-needle aspiration for further asses sment. ACT 112: Negative or not required by law. Electronically signed by: Monster Villareal M.D. 05/26/2021 9:00 AM
[2021-05-26] MEDS ORDERED: LIDOCAINE 1% LOCAL 20 ML VIAL ONE (10:34)
[2021-05-26] MEDS ORDERED: HEPARIN SOD (PORCINE) 5,000 UNITS/ML VIAL ONE (10:34)
[2021-05-26] MEDS ORDERED: fentaNYL citrate 100 MCG/2 ML VIAL ONE (10:36)
[2021-05-26] MEDS ORDERED: MIDAZOLAM HCL 1 MG/ML 2ML VIAL ONE (10:36)
[2021-05-26] MEDS ORDERED: ceFAZolin 2000MG 2,000 MG/15 ML SYR IV ONE (11:00)
--- NOTE | 2021-05-26 12:08 | History & Physical Bridge Note ---
Date of Service May 26, 2021 History & Physical Bridge Note Patient for permcath exchange. I have discussed the risks options and benefits of the procedure with the patient. The patient understands the risks options and benefits and agrees to the procedure. I have examined the patient, reviewed the History & Physical and in the interval since the performance of the History & Physical I have noted the following changes of clinical significance: no changes noted
--- NOTE | 2021-05-26 12:21 | Hospitalist Progress Note ---
Date of Service May 26, 2021 Assessment & Plan (1) End stage renal disease: (2) Hypoxia: (3) Essential hypertension: (4) Morbid obesity: (5) UTI (urinary tract infection): (6) Hypercalcemia: Plan: 65 yo female with severe CHEYEN[place] not on CPAP, failed kidney transplant with CKD5, HTN, presented to the ED from PCP office for hypoxia and VU, for the past month worsening over the past week. 1. Acute Hypoxic respiratory failure -O2 sat 86% on RA, currently on 3L NC -Multifactorial: likely due to untreated CHEYENNE and obesity hypoventilation syndrome, component of renal disease and possibly undiagnosed COPD with her 50 pack year smoking history. Appreciate Pulmonology input. Patient would benefit from outpatient PFTs. Tolerated CPAP here, will need repeat titration study with her recent weight loss. Improved with trial of Anoro Ellipta - 2 Step ordered and requires 2L of O2 at all times -will need follow up with Pulm and sleep medicine at outpatient 2. ESRD- progressed from CKD stage V with uremic symptoms. 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 S/p tunneled catheter . First dialysis 05/20, second dialysis session 05/21, third session 05/24 -Need OP dialysis to be arranged -to undergo Permcath placement today -will need AV fistula revision as OP 3. Morbid obesity with severe CHEYENNE- BMI 35. Severe CHEYENNE but never used CPAP -recent weight loss. Ongoing weight loss counseling and encouragement 4. HTN- - stable, continue coreg, amlodipine with hold parameters 5. E coli UTI -Urine cultures +E coli, sensitive to Ceftriaxone. s/p 5 day treatment course 6. Hypercalcemia- -Ca 11.3 -. PTH 68 inappropriately high, VIt D 60, PTHrp 11 -likely from CKD. s/p iv lasix 05/18 continue po lasix. -parathyroid nuclear scan ordered by nephrology and reviewed -possible parathyroid adenoma in differential, recommending thyroid US for further eval - ordered -US: 1. Heterogeneous and hyperemic thyroid gland as above. Correlate clinically and with serum thyroid function studies for evidence of thyroiditis. 2. There is a 2.4 cm hypervascular solid nodule in the right lower pole, possibly corresponding to the abnormality seen on the nuclear parathyroid scan. Consider fine-needle aspiration for further assessment. OBtain TSH/T4 with a.m. labs Pt will need to establish with endocrine and will need a FNA of nodule 7. Abnormal OP stress test -no diagnostic cath was done due to CKD5. Per cardio, abnormal stress test was related to artifact from breast attenuation and not ischemia.No additional cardiac testing indicated per cardio. DVT prophylaxis: sc heparin Disposition: Will get permcath today, OP HD arranged at [facility] on 05/28. Home oxygen script provided Pt was seen and examined in collaboration with Dr. Mcnamara, please see addendum Admission and Anticipated Discharge Date Admission Date: May 17, 2021 Supervising Physician Co-Signing Physician Notes Patient was seen and examined at the bedside. Reviewed chart. Discussed case with Ting PETERS and agree with the documentation. In summary, this is a 65 year old female with ESRD due to glomerulonephritis status post failed renal transplant, morbid obesity with severe CHEY[place] noncompliant to CPAP, who presented to ED with worsening dyspnea on exertion and hypoxia for a month. Also had nausea, poor appetite and weight loss. Her symptoms were attributed due to ESRD and she was started on dialysis.she had repeat PermCath placed today due to malfunctioning PermCath and underwent hemodialysis again today. She will need AV fistula revision as outpatient. She has been seen by pulmonology and recommended OP PFTs and sleep retitration study. She has also completed 5 days of Rocephin course for her UTI. Her hypercalcemia work up revealed inappropriately elevated PTH along with hypervascular solid nodule in right lower pole for which OP FNA is recommended to r/o parathyroid adenoma. Hypercalcemia is stable. Oxygen has been arranged. Outpatient dialysis is arranged. Likely discharge tomorrow. Subjective Pt was seen and examined in room 352-2. Follow up acute hypoxic resp failure, CKD-5 now on HD. Pt was lying in bed. She is going for permcath today. Feels well this morning, but didn't sleep well. Denies f/c/s, chest pain, sob at rest, n/v/d, abd pain. Feels urine output less frequent. Review of Systems Review of Systems: All systems reviewed & are unremarkable except as noted in HPI & below Physical Exam Physical Exam: Gen: WD/WN, F, NAD, A&O x3, flat affect HEENT: Normocephalic, atraumatic, conjunctivae moist, sclerae anicteric, mucous membranes moist. Lung: Clear to Auscultation bilaterally, on oxygen 23L via NC, no wheezes/rales/rhonchi Heart: Regular rate, regular rhythm, no murmurs, rubs, or gallops Abdomen: Soft, NT, ND +BS x 4 Extremities: No edema Skin: Warm, no rash, negative turgor. Results & Data Results & Data ([facility]) Vital Signs (Past 12 Hours) Vital Signs Temp Pulse Resp BP Pulse Ox 05/26/21 10:13 36.6 C 78 18 120/68 96 05/26/21 08:04 36.9 C 80 16 137/77 93 Medications Administered Current Inpatient Medications Acetaminophen (Acetaminophen 325 Mg Tab) 650 mg PO Q4H PRN PRN Reason: pain Stop: 06/17/21 10:01 Last Admin: 05/26/21 01:40 Dose: 650 mg Documented by: Albuterol (Albuterol Hfa 8 Gm Inhaler) 2 puffs INH Q4H PRN PRN Reason: sob Stop: 06/22/21 08:29 Last Admin: 05/24/21 15:57 Dose: 2 puffs Documented by: Amlodipine Besylate (Amlodipine Besylate 5 Mg Tab) 5 mg PO HS [facility] Stop: 06/16/21 21:53 Last Admin: 05/25/21 20:50 Dose: 5 mg Documented by: Aspirin (Aspirin 81 Mg Ectab) 81 mg PO QAM VU Stop: 06/17/21 08:59 Last Admin: 05/26/21 08:52 Dose: 81 mg Documented by: Benzonatate (Benzonatate 100 Mg Capsule) 100 mg PO TID VU Stop: 06/17/21 00:00 Last Admin: 05/26/21 08:58 Dose: 100 mg Documented by: Carvedilol (Carvedilol 12.5 Mg Tab) 37.5 mg PO BID [facility] Stop: 06/16/21 21:53 Last Admin: 05/26/21 09:00 Dose: Not Given Documented by: Famotidine (Famotidine 10 Mg Tablet) 10 mg PO QAM VU Stop: 06/20/21 08:59 Last Admin: 05/26/21 08:51 Dose: 10 mg Documented by: Fluticasone Propionate (Fluticasone Propionate Na Spr 16 Gm Btl) 2 sprays NA DAILY PRN PRN Reason: Allergy Symptoms Stop: 06/16/21 21:53 Last Admin: 05/25/21 14:59 Dose: 2 sprays Documented by: Fluticasone Propionate (Fluticasone Propionate Na Spr 16 Gm Btl) 1 sprays NA BID [facility] Stop: 06/19/21 20:59 Last Admin: 05/26/21 08:58 Dose: Not Given Documented by: Furosemide (Furosemide 80 Mg Tab) 80 mg PO QAM [facility] Stop: 06/17/21 08:59 Last Admin: 05/26/21 09:00 Dose: Not Given Documented by: Gabapentin (Gabapentin 100 Mg Cap) 100 mg PO BID [facility] Stop: 06/16/21 21:53 Last Admin: 05/26/21 08:52 Dose: 100 mg Documented by: Guaifenesin (Guaifenesin Sugar Free 200 Mg/10 Ml Udc) 200 mg PO Q6H PRN PRN Reason: Cough Stop: 06/17/21 00:00 Last Admin: 05/25/21 14:55 Dose: 200 mg Documented by: Heparin Sodium (Porcine) (Heparin Sod 5,000 Unit/0.5 Ml Vial) 5,000 units SQ Q12 [facility] Stop: 06/21/21 20:59 Last Admin: 05/25/21 08:47 Dose: 5,000 units Documented by: Hydralazine HCl (Hydralazine Hcl 25 Mg Tab) 25 mg PO TID [facility] Stop: 06/16/21 21:53 Last Admin: 05/26/21 09:00 Dose: Not Given Documented by: Sodium Chloride (Nss 1000ml) 1,000 mls @ 0 mls/hr IV .Q0M PRN PRN Reason: For Hemodialysis Use ONLY Stop: 05/26/21 14:00 Levothyroxine Sodium (Levothyroxine Sodium 50 Mcg Tablet) 50 mcg PO DAILYBB [facility] Stop: 06/17/21 06:29 Last Admin: 05/26/21 06:10 Dose: 50 mcg Documented by: Lorazepam (Lorazepam 0.5 Mg Tab) 0.5 mg PO TID PRN PRN Reason: Anxiety Stop: 06/20/21 14:55 Last Admin: 05/24/21 12:25 Dose: 0.5 mg Documented by: Omeprazole 40mg ~ Non-Formulary Patient's Own Med 1 ea PO Q24H VU Stop: 06/25/21 06:29 Last Admin: 05/26/21 06:10 Dose: 1 cap Documented by: Oxycodone/Acetaminophen (Oxycodone/Acetaminophen 5mg/325mg Tab) 1 tab PO Q6 PRN PRN Reason: Pain Stop: 05/31/21 21:53 Last Admin: 05/25/21 07:48 Dose: 1 tab Documented by: Prednisone (Prednisone 5 Mg Tab) 5 mg PO QAM VU Stop: 06/17/21 08:59 Last Admin: 05/26/21 08:52 Dose: 5 mg Documented by: Saccharomyces Boulardii (Saccharomyces Boulardii 250 Mg Cap) 250 mg PO DAILY VU Stop: 06/21/21 08:59 Last Admin: 05/26/21 08:51 Dose: 250 mg Documented by: Sodium Chloride (Sodium Chloride 0.65% Na Soln 45 Ml ([place])) 0 sprays NA PRN PRN PRN Reason: Dryness Stop: 06/19/21 19:38 Last Admin: 05/20/21 21:28 Dose: 225 sprays Documented by: Tacrolimus (Tacrolimus 1 Mg Cap) 1 mg PO BID VU Stop: 06/16/21 21:53 Last Admin: 05/26/21 08:53 Dose: 1 mg Documented by: Umeclidinium/Vilanterol (Umeclidinium/Vilanterol 62.5/25mcg 7 Puffs/Inhaler) 1 puffs INH DAILY VU Stop: 06/21/21 12:59 Last Admin: 05/26/21 08:53 Dose: 1 puffs Documented by:
--- NOTE | 2021-05-26 12:52 | Post Operative Brief Note ---
Immediate Post Op Note v1 Date of Surgery May 26, 2021 Pre & Post Diagnosis Operation Date: 05/20/21 13:05 Pre-Op Diagnosis: End Stage Renal Disease Post-Op Diagnosis: End Stage Renal Disease Operation Date: 05/26/21 11:00 Pre-Op Diagnosis: Malfunctioning Perm Cath Post-Op Diagnosis: Malfunctioning Perm Cath I identified the patient and participated in the time-out.: Yes Procedure Operation Date: 05/20/21 13:05 Actual Procedures p Perm Catheter Placement, Left Jugular Approach, Ultrasound Localization of Left Jugular Vein, Fluoroscopy for positioning, Moderate Sedation 1258- 1335(Left) - Jh Quintero MD Operation Date: 05/26/21 11:00 Actual Procedures p Perm Catheter Exchange, fluroscopy for positioning, moderate sedation [id number] 1303(Left) - Jh Quintero MD Surgeon Jh Quintero MD Systems Software Manager Lamar Aldridge MD Estimated Blood Loss 0 Findings Consistent with Post-Op Diagnosis Anesthesia Type RN Sedation Complications none Disposition Accompanied Patient To Recovery: No Disposition: Recovery Room
--- NOTE | 2021-05-26 12:53 | Pre Anesthesia Assessment ---
Date of Service May 26, 2021 Pre Sedation Assessment Vital Signs Temp Pulse Pulse Resp BP BP Pulse Ox 05/26/21 12:48 73 16 141/75 H 98 05/26/21 12:43 73 16 135/72 100 05/26/21 12:38 75 16 143/79 H 98 05/26/21 12:35 75 16 137/75 98 05/26/21 10:13 36.6 C 78 18 120/68 96 05/26/21 08:04 36.9 C 80 16 137/77 93 05/25/21 22:15 36.8 C 76 17 165/80 H 95 05/25/21 21:45 65 26 H 93 05/25/21 15:27 36.8 C 79 18 115/69 92 Cardiovascular RRR, no murmur, no edema Respiratory normal respiratory effort, lungs clear to auscultation Pre-Sedation Airway Assessment Smoking Status: Former smoker Hx Sleep Apnea: Yes Short, Thick Neck: No Thyromental Distance: > or= 3.5 Finger Breadths Oral Cavity: + WNL Mallampati Class: II ASA: ASA3 NPO Status Date of Last Intake of Fluids: 05/25/21 Time of Last Intake of Fluids: 23:59 Last Oral Intake of Fluids Comment: sips with meds this am Date of Last Intake of Solid Food: 05/25/21 Time of Last Intake of Solid Foods: 17:30 Procedure Planning Contraindications for Sedation: none Current Medications Reviewed: Yes Notes The planned sedation has been discussed with the patient. Informed Consent was obtained. I have identified the patient, determined the appropriateness of sedation and have assessed the patient immediately prior to the procedure. All medicine(s) and interventions are by my order.
--- NOTE | 2021-05-26 13:02 | Procedure Note ---
Angiogram Post Procedure Fluoroscopy Time (minutes): 1.1 Conscious Sedation Time (minutes): 22 Radiation (mGy): 8.54 Contrast: none Post Operative Report Pre & Post Diagnosis Operation Date: 05/20/21 13:05 Pre-Op Diagnosis: End Stage Renal Disease Post-Op Diagnosis: End Stage Renal Disease Operation Date: 05/26/21 11:00 Pre-Op Diagnosis: Malfunctioning Perm Cath Post-Op Diagnosis: Malfunctioning Perm Cath I identified the patient and participated in the time-out.: Yes Procedure Operation Date: 05/20/21 13:05 Actual Procedures p Perm Catheter Placement, Left Jugular Approach, Ultrasound Localization of Left Jugular Vein, Fluoroscopy for positioning, Moderate Sedation 1258- 1335(Left) - Jh Quintero MD Operation Date: 05/26/21 11:00 Actual Procedures p Perm Catheter Exchange, fluroscopy for positioning, moderate sedation 1238(Left) - Jh Quintero MD Surgeon Jh Quintero MD Bung Dropper Lamar Aldridge MD Estimated Blood Loss 0 Findings Consistent with Post-Op Diagnosis Specimens none Drains none Anesthesia Type RN Sedation Complications none Disposition Accompanied Patient To Recovery: No Disposition: Recovery Room Indications This is a 65 year old female with renal failure with need for hemodialysis. Last week we place a perm cath for her using left internal jugular vein access. This has been malfunctioning. She presents for perm cath exchange. Description of Procedure Patient was taken to the angio suite and placed in the supine position. The left side of the neck and chest wall were prepped and draped in a sterile manner. A team timeout was performed. An xray was taken to evaluate the position of the perm cath. This was pulled back into the left innominate vein. Thus we made the decision to exchange the 19cm perm cath for a 23cm perm cath. Local anesthesia was then administered to the appropriate areas of the neck and chest wall. A stiff angled guidewire was passed through the arterial port of the 19cm perm cath, and this was passed centrally under fluoroscopic imaging. The 19cm perm cath was removed over the wire. The 23cm perm cath was advanced over the wire. This passed without difficulty and the tip of the catheter was in the right atrium. We expected that this would pull back a little when the patient sat up, as this is what likely occurred with the 19cm permcath. Thus we left the catheter in this position. The obturator was removed. The catheter was then sutured in place using nylon sutures. Both ports aspirated and flushed easily and were then packed with heparin. A sterile dressing was applied to the catheter. The patient left the angio suite in good condition and tolerated the procedure well. Dr. Quintero was present and scrubbed for the entirety of the procedure. I attest to the content of the Intraoperative Record and any orders documented therein. Any exceptions are noted below.
--- NOTE | 2021-05-26 13:10 | Post Anesthesia Assessment ---
Date of Service May 26, 2021 Post Sedation Assessment Vital Signs Temp Pulse Pulse Resp BP BP Pulse Ox 05/26/21 13:03 75 16 139/72 99 05/26/21 12:58 77 16 139/72 99 05/26/21 12:53 75 16 144/72 H 99 05/26/21 12:48 75 16 143/74 H 97 05/26/21 12:43 73 16 135/72 100 05/26/21 12:38 75 16 143/79 H 98 05/26/21 12:35 75 16 137/75 98 05/26/21 10:13 36.6 C 78 18 120/68 96 05/26/21 08:04 36.9 C 80 16 137/77 93 05/25/21 22:15 36.8 C 76 17 165/80 H 95 05/25/21 21:45 65 26 H 93 05/25/21 15:27 36.8 C 79 18 115/69 92 Recovery Score Activity: Moves 4 extremities Respiration: Deep Breath/Cough Circulation: +/-20% PreAnes Value Consciousness: Fully Awake Oxygen Saturation: O2 needed for >90% Post Anesthesia Score: 9 Discharge Sedation Level of Care: Fast Track Phase II Post Sedation Plan On clinical assessment, the patient appears to have tolerated the sedation without complications. Patient is recovering as anticipated. Patient will continue to be monitored by nursing and may be discharged when sedation discharge criteria are met per below protocol. Upon Completions of procedure up to 15 minutes continue every 5 minute vital signs and the P.A.R. score; then discharge to a Phase I or Fast Track to Phase II per the following guidelines: * Discharge Patient to appropriate Phase II area if PAR is 8 or greater or return to pre- procedure baseline. The post - procedure orders will be as directed. * If PAR score is less than 8 or not return to pre-procedure baseline then patient will follow Phase I monitoring till PAR is reached for Phase II. The Phase I may be done in procedure room or may call to secure a Phase I area. * If naloxone or flumazenil are used for reversal, hold in Phase I for continued monitoring from when last reversal dose was given for a minimum of 60 minutes or longer pending the nurse and/or physician discretion of patient condition before discharge to Phase II. Please call the Sedation Physician to re-evaluate and complete post-note for discharge to Phase II area. Do NOT discharge from procedure sedation or Phase 1 until post- sedation evaluation note is complete by procedure /sedation MD Sedation Discharge Instructions to be given to the patient at discharge to home.
--- NOTE | 2021-05-26 18:38 | Nephrology Progress Note ---
Date of Service May 26, 2021 Assessment & Plan (1) ESRD (end stage renal disease) on dialysis: Plan: on MWF HD via [facility] -arrange AVF revision as OP -> needs OP dialysis arrangements for [facility] under my care -for routine HD today (2) Failed kidney transplant: Plan: did confirm w/ renal txplt team [facility] that belatacept has been stopped -continue tacrolimus and prednisone current dosing now and at d/c (3) Hypercalcemia: Plan: worsening today; work up pending; ? tertiary hyperPTH; PTH inappropriate at 69 (12-88); 25 OHD 60; PTHrp pending; SPEP >> Faint indistinct bands are highlighted by one or more immunofixation reagents. In most cases, this pattern represents reactive inflammatory conditions with immune complexes or oligoclonal immunoglobulins. However, a clonal B-cell or plasma cell disorder cannot be completely excluded. 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 pt eager to know when she will start HD on Monday. no edema, no sob, no uncontorlled pain; no pain over allograft Review of Systems Review of Systems: All systems reviewed & are unremarkable except as noted in Subjective Physical Exam Constitutional: well developed and well nourished; no acute distress Eyes: EOM intact bilaterally ENMT: Ears: no external ear abnormality Nose: no external nose abnormality Mouth: + dry oral mucous membranes Neck: no nuchal rigidity Respiratory: normal respiratory effort Auscultation: + diminished lung sounds Cardiovascular: Rate/Rhythm: regular rate and regular rhythm Extremities: no edema Gastrointestinal (Abdomen): Inspection/Auscultation: normal bowel sounds Percussion/Palpation: abdomen soft; abdomen nontender Musculoskeletal: Extremities: strength 5/5 throughout Skin: no rashes, warm and dry Psychiatric: Orientation: alert and oriented x 3 Affect: + anxious affect Results & Data ([facility]) Vital Signs (Past 12 Hours) Vital Signs Temp Pulse Pulse Pulse Resp BP BP 05/26/21 17:25 36.8 C 82 18 106/67 05/26/21 17:02 36.6 C 76 133/68 05/26/21 16:40 78 90/67 L 05/26/21 16:28 77 94/55 L 05/26/21 16:20 77 83/57 L 05/26/21 16:00 76 119/67 05/26/21 15:40 78 98/61 L 05/26/21 15:20 76 121/65 05/26/21 15:12 77 103/69 05/26/21 15:00 77 90/54 L 05/26/21 14:40 76 119/63 05/26/21 14:20 75 111/61 05/26/21 14:00 73 108/62 05/26/21 13:30 74 145/78 H 05/26/21 13:03 75 16 139/72 05/26/21 12:58 77 16 139/72 05/26/21 12:53 75 16 144/72 H 05/26/21 12:48 75 16 143/74 H 05/26/21 12:43 73 16 135/72 05/26/21 12:38 75 16 143/79 H 05/26/21 12:35 75 16 137/75 05/26/21 10:13 36.6 C 78 18 120/68 05/26/21 08:04 36.9 C 80 16 137/77 Pulse Ox 05/26/21 17:25 96 05/26/21 17:02 05/26/21 16:40 05/26/21 16:28 05/26/21 16:20 05/26/21 16:00 05/26/21 15:40 05/26/21 15:20 05/26/21 15:12 05/26/21 15:00 05/26/21 14:40 05/26/21 14:20 05/26/21 14:00 05/26/21 13:30 05/26/21 13:03 99 05/26/21 12:58 99 05/26/21 12:53 99 05/26/21 12:48 97 05/26/21 12:43 100 05/26/21 12:38 98 05/26/21 12:35 98 05/26/21 10:13 96 05/26/21 08:04 93 Laboratory Results 05/20/21 07:58 05/24/21 06:58
[2021-05-26] MEDS: amLODIPine BESYLATE 5 MG TAB PO SCH (20:38)
[2021-05-26] MEDS: HEPARIN SOD 5,000 UNIT/0.5 ML VIAL SQ SCH (20:45)
[2021-05-27] MEDS: LEVOTHYROXINE SODIUM 50 MCG TABLET PO SCH (05:51)
[2021-05-27] MEDS: OMEPRAZOLE 40 MG PO SCH (05:52)
[2021-05-27 07:29] LABS: Hematocrit (blood only) 36.4 % (37-47); Hemoglobin 11.6 g/dL (12.0-16.0); Mean Corpuscular Hemoglobin 27.5 pg (25-34); Mean Corpuscular Hgb Conc 31.9 g/dL (32-36); Mean Corpuscular Volume 86.3 fL (80-100); Mean Platelet Volume 9.8 fL (7.4-10.4); Platelet Count 210 K/uL (130-400); RDW Coefficient of Variation 13.5 % (11.5-14.5); RDW Standard Deviation 42.9 fL (36.4-46.3); Red Blood Count 4.22 M/uL (4.2-5.4); White Blood Count 8.79 K/uL (4.8-10.8)
[2021-05-27] MEDS: LORazepam 0.5 MG TAB PO PRN (07:34)
[2021-05-27 08:14] LABS: BUN Creatinine Ratio 4.6 (10-20); Calcium 11.5 mg/dl (8.5-10.1); Creatinine Clr Calc Pharmacy 12.2 ml/min; Est GFR (Non-African American) 7.8 ml/min; Potassium 3.4 mmol/L (3.5-5.1)
[2021-05-27] MEDS: FLUTICASONE PROPIONATE NA SPR 16 GM BTL SCH (08:53)
[2021-05-27] MEDS: UMECLIDINIUM/VILANTEROL 62.5/25MCG 7 PUFFS/INHALER INH SCH (08:53)
[2021-05-27] MEDS: ASPIRIN 81 MG ECTAB PO SCH (08:54)
[2021-05-27] MEDS: carvediloL 12.5 MG TAB PO SCH (08:54)
[2021-05-27] MEDS: TACROLIMUS 1 MG CAP PO SCH (08:55)
[2021-05-27] MEDS: FUROSEMIDE 80 MG TAB PO SCH (08:55)
[2021-05-27] MEDS: predniSONE 5 MG TAB PO SCH (08:55)
[2021-05-27] MEDS: FAMOTIDINE 10 MG TABLET PO SCH (08:55)
[2021-05-27] MEDS: SACCHAROMYCES BOULARDII 250 MG CAP PO SCH (08:55)
[2021-05-27] MEDS: GABAPENTIN 100 MG CAP PO SCH (08:55)
[2021-05-27] MEDS: hydrALAZINE HCL 25 MG TAB PO SCH ×2 (08:55→13:21)
[2021-05-27] MEDS: BENZONATATE 100 MG CAPSULE PO SCH ×2 (09:01→13:21)
[2021-05-27] MEDS: HEPARIN SOD 5,000 UNIT/0.5 ML VIAL SQ SCH (09:48)
[2021-05-27] MEDS ORDERED: POTASSIUM CHLORIDE 10 MEQ TABCR PO STA (11:01)
--- NOTE | 2021-05-27 17:16 | Discharge Summary ---
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 Patient has been having shortness of breath with exertion for the past month, worsening over the past week. Her VU started few days prior to her seeing her PCP on 04/23, she did bring it to her PCP. Since then it has progressively worsened to the point that she gets short of breath even with mild activities like folding her clothes. Denies any orthopnea, PND. No fever or chills. Intermittent cough, clear phlegm which has increased lately. No h/o COPD or asthma. Past smoker left about 20 years ago. Denies any history of heart disease. No h/o CHF. She did have exercise treadmill stres test recently as part of her transplant evaluation and she was able to complete it. Her stress test was abnormal however no diagnostic cath was done due to her CKD5. She however denies any chest pain, chest tightness. She has been on lasix for years for her lower extremity edema. Denies any weight gain but infact weight loss due to poor appetite. She had her colonoscopy on Monday 3 days back where her oxygen saturation was in 80s. She was referred to her PCP today for evaluation where her oxygen saturation was down to 73% with ambulation and improved to 97% on 3 L. She was sent to the ED for further evaluation. In the ED, she is afebrile hemodynamically stable. She felt better on oxygen. Admission Exam Per Admitting Provider General: Lying comfortably in bed, not in distress, on NC HEENT: EOMI, APPLE, MMM Chest: Clear breath sounds bilaterally with basilar rales CVS: Regular rate and rhythm, normal heart sounds, no murmur Abdomen: Soft, non tender, not distended, normal bowel sounds Neuro: Awake, alert, oriented, conversing well, non focal Extremities: No cyanosis, clubbing, trace edema Principal Diagnosis VU, Hypoxia, ESRD Discharge Data Allergies Allergy/AdvReac Type Severity Reaction Status Date / Time levofloxacin AdvReac Severe C-DIFF Verified 05/26/21 10:19 Consultations 05/17/21 17:34 ED Decision to Admit Stat 05/18/21 07:07 Consult Nephrology Routine 05/18/21 08:00 Consult Cardiology Routine 05/19/21 12:24 Consult Vascular Surgery Stat 05/22/21 11:38 Consult Pulmonology Routine Procedures Performed Operation Date: 05/20/21 13:05 Actual Procedures p Perm Catheter Placement, Left Jugular Approach, Ultrasound Localization of Left Jugular Vein, Fluoroscopy for positioning, Moderate Sedation 1258- 1335(Left) - Jh Quintero MD Operation Date: 05/26/21 11:00 Actual Procedures p Perm Catheter Exchange, fluroscopy for positioning, moderate sedation 1238- 1303(Left) - Jh Quintero MD Ordered Studies 05/19/21 13:36 US venous doppler UE BI Routine 05/20/21 12:52 EV cvc insrt tunnel wo prt/fire alarm repairer Routine US EV guide vascular access Routine 05/25/21 13:50 US thyroid Routine 05/26/21 07:34 EV cvc replace tunnel wo pp Routine Hospital Course (1) End stage renal disease: (2) Hypoxia: (3) Essential hypertension: (4) Morbid obesity: (5) UTI (urinary tract infection): (6) Hypercalcemia: 65 yo female with severe CHEY[place] not on CPAP, failed kidney transplant with CKD5, HTN, presented to the ED from PCP office for hypoxia and VU, for the past month worsening over the past week. Patient was found to have uremic symptoms due to ESRD and was started on dialysis with improvement of symptoms. She has been requiring oxygen and is being discharged on the same. Also being discharged on anoro and albuterol inhaler along with instruction for outpatient PFTs and sleep study. She does have Hyperparathyroidism with hypercalcemia and thyroid/parathyroid mass on parathyroid scan/thyroid ultrasound for which she will need to see endo as OP for aspiration. Her OP dialysis has been set up starting tomorrow. She is comfotable and stable for discharge. She denies any additional needs at discharge. 1. Acute Hypoxic respiratory failure/VU -O2 sat 86% on RA, currently on 3L NC - Multifactorial: likely due to untreated CHEYENNE and obesity hypoventilation syndrome, component of renal disease and possibly undiagnosed COPD with her 50 pack year smoking history. Appreciate Pulmonology input. Patient would benefit from outpatient PFTs. Tolerated CPAP here, will need repeat titration study with her recent weight loss. Improved with trial of Anoro Ellipta - Echo with Ef 60-65%, grade 1 diastolic dysfunction, no significant valvular pathology, pulmonary artery pressure of 20 mmHg may be underestimated due to poor TR jet - 2 Step oxygen evaluation done- oxygen arranged at discharge - recommended follow up with Pulm for PFTs and sleep retitration study at outpatient- reinforced CPAP compliance 2. ESRD- progressed from CKD stage V with uremic symptoms. (history of ESRD due to glomerulonephritis status post transplant, failed) - Has AV fistula in place -continue EDUCATION TRAINER prograf and prednisone -Started on dialysis here, management per Nephrology. S/p tunneled catheter 05/20. First dialysis 05/20, second dialysis session 05/21, third session 05/24 - Permcath again placed 05/26 and underwent uneventful dialysis. -will need AV fistula revision as OP - OP dialysis set up for tomorrow. 3. Morbid obesity with severe CHEYENNE- BMI 35. Severe CHEYENNE but never used CPAP -recent weight loss. Ongoing weight loss counseling and encouragement 4. HTN- stable, continue coreg, amlodipine 5. E coli UTI-Urine cultures +E coli, sensitive to Ceftriaxone. s/p 5 day treatment course 6. Hypercalcemia/hyperparathyroidism- -Ca 11.3 and stable. PTH 68 inappropriately high, VIt D 60, PTHrp 11 -parathyroid nuclear scan- 05/24 "Moderate asymmetric radiotracer uptake within or adjacent to the mid to lower pole of the right thyroid lobe. This favors uptake within the thyroid gland and could reflect uptake within a thyroid nodule or intrathyroidal parathyroid adenoma. A right inferior parathyroid adenoma is also within the differential. A thyroid ultrasound is recommended for further evaluation." - Thyroid US- "1. Heterogeneous and hyperemic thyroid gland as above. Correlate clinically and with serum thyroid function studies for evidence of thyroiditis. There is a 2.4 cm hypervascular solid nodule in the right lower pole, possibly corresponding to the abnormality seen on the nuclear parathyroid scan. Consider fine-needle aspiration for further assessment." - TSH normal - Also SPEP 05/19-- ' faint indistinct bands are highlighted by 1 or more immunofixation reagents. In most cases, this pattern represents reactive inflammatory conditions with immune complexes or oligoclonal immunoglobulin. However a clonal B-cell or plasma cell disorder cannot be completely excluded. - Recommended OP follow up with endocrine for further evaluation and work up including FNA - Recommend outpatient follow-up with oncology for abnormal SPE 7. Abnormal OP stress test -no diagnostic cath was done due to CKD5. Per cardio, abnormal stress test was related to artifact from breast attenuation and not ischemia.No additional cardiac testing indicated per cardio. Total Time Total Time Spent Total Time Spent (In Minutes): 45 Discharge Plan Discharge Items Patient Disposition: Home - Self-Care Reason For Visit: HYPOXIA, VU Discharge Diagnosis: ESRD, Hypoxia, Hypercalcemia Activity: Resume your previous activity Non-emergency contact: Primary Care Provider and Pantomimist Call non-emergency contact if: you have any medication questions and your symptoms worsen Follow-up/Referrals: Kenneth Butt MD [Primary Care Provider] - (Date & Time 06/03/2021 10:20 AM Provider Ashley Gomez MD Department General Internal Medicine [facility] ) Diet: Dialysis Renal Addtl Attending Provider Instructions: [facility] go [facility]. Your dialysis time is at 10:45 am but be there by 10:15 am for the paperwork Please follow up with endocrinology for high calcium and thyroid/parathyroid mass Please follow up with oncology for high calcium and abnormal protein electrophoresis study Please follow up with lung doctors for PFT Please get sleep retitration study and be compliant with CPAP Follow up with nephrology for AV fistula revision Follow up with family doctor for referrals for above (endocrinology, pulmonology and oncology) Pending Studies at Discharge: No Stand-Alone Forms: My [employer], Smoking Cessation Medications and DC Order Prescriptions: New albuterol sulfate [Ventolin HFA] 90 mcg/actuation Hfa Aerosol Inhaler 2 puff inhalation Q4H PRN (Reason: dyspnea) Qty: 6.7 RF: 0 Anoro Ellipta 62.5-25 mcg/actuation Blister With Device 1 puff inhalation DAILY Qty: 1 RF: 0 Continued prednisone 5 mg Tablet 5 mg PO QAM RF: 0 omeprazole 40 mg Capsule,Delayed Release(Dr/Ec) 40 mg PO QAM RF: 0 sodium bicarbonate 650 mg Tablet 650 mg PO QAM RF: 0 levothyroxine 50 mcg Tablet 50 mcg PO QAM RF: 0 aspirin 81 mg Tablet,Chewable 81 mg PO QAM RF: 0 gabapentin 100 mg Capsule 100 mg PO BID RF: 0 fluticasone propionate [Flonase Allergy Relief] 50 mcg/actuation [place],Suspension 2 spray INTRANASAL DAILY PRN (Reason: Allergy Symptoms) RF: 0 tacrolimus 1 mg Capsule 1 mg PO BID RF: 0 magnesium oxide 400 mg Capsule 400 mg PO BID RF: 0 oxycodone-acetaminophen 5-325 mg tablet 1 tab PO Q6 PRN (Reason: Pain) RF: 0 amlodipine [Norvasc] 5 mg Tablet 5 mg PO HS Qty: 30 RF: 0 furosemide 80 mg Tablet 80 mg PO QAM Qty: 30 RF: 0 carvedilol 25 mg Tablet 37.5 mg PO BID 30 Days Qty: 90 RF: 0 hydralazine 25 mg tablet 25 mg PO TID RF: 0 Discontinued belatacept 250 mg Recon Soln 1 dose IV MONTHLY RF: 0 Discharge Orders: Discharge Order (Routine); Ordered 05/27/21 Ordered By: Freddy Frost/Other Patient Handouts: Kidney Disease Reducing Potassium, Kidney Disease Calcium Phosphorus, Kidney Disease Protein, Kidney Disease: Limiting Fluids, Kidney Disease: Eating Less Sodium Admission Data Admit Date/Time: 05/17/21 19:12 Attending Provider: Freddy Mcnamara Admit Provider: Freddy Mcnamara Primary Care Provider: Kenneth Butt Other Providers: Ting Duke ; Freddy Mcnamara ; Tori Friedman ; Paulo Roldan Elissa R. ; Tabatha Hernandez ; Mehrdad Sifuentes ; Saadia Zuleta ; Liborio Zazueta ; Román Pressley ; Jair Carney ; Sina Lepe ; RogelioZoran may ; Steve Rivera ; Rea Schmitz ; Meera Jones Ashley M. ; Howie Gupta ; Jh Quintero ; Saurav Zapata Other Interventions: Discharge Summary Assessment (RN) Last Done: 05/27/21 12:23
== END 2021-05-27 14:26 | disposition home or self-care (01) | DRG 205 ==
LOC: ED 15:10 → EDINP 19:12 → SUATTDRO 19:12 → EDINP 21:52 → 2N 05-18 01:26 → 3W 05-25 04:06
DX: E21.3 Hyperparathyroidism, unspecified; E04.1 Nontoxic single thyroid nodule; D63.1 Anemia in chronic kidney disease; Z80.0 Family history of malignant neoplasm of digestive organs; D12.2 Benign neoplasm of ascending colon; T82.898A Other specified complication of vascular prosthetic devices, implants and grafts, initial encounter; B96.20 Unspecified Escherichia coli [E. coli] as the cause of diseases classified elsewhere; N18.6 End stage renal disease; Z86.010 Personal history of colon polyps; E03.9 Hypothyroidism, unspecified; E66.2 Morbid (severe) obesity with alveolar hypoventilation; Z79.890 Hormone replacement therapy; Z87.891 Personal history of nicotine dependence; R94.39 Abnormal result of other cardiovascular function study; J96.01 Acute respiratory failure with hypoxia; K57.30 Diverticulosis of large intestine without perforation or abscess without bleeding; J44.9 Chronic obstructive pulmonary disease, unspecified; N39.0 Urinary tract infection, site not specified; E78.5 Hyperlipidemia, unspecified; K21.9 Gastro-esophageal reflux disease without esophagitis; K55.20 Angiodysplasia of colon without hemorrhage; Z79.82 Long term (current) use of aspirin; T82.41XA Breakdown (mechanical) of vascular dialysis catheter, initial encounter; I10 Essential (primary) hypertension; Z79.899 Other long term (current) drug therapy; Y71.2 Prosthetic and other implants, materials and accessory cardiovascular devices associated with adverse incidents; Z99.2 Dependence on renal dialysis; Z79.52 Long term (current) use of systemic steroids; Z88.1 Allergy status to other antibiotic agents; T86.12 Kidney transplant failure; K64.9 Unspecified hemorrhoids; Z68.37 Body mass index [BMI] 37.0-37.9, adult; I27.23 Pulmonary hypertension due to lung diseases and hypoxia

== ENCOUNTER 2021-07-13 17:25 | Inpatient (IN) ==
[2021-07-13 18:05] LABS: Basophils # (auto) 0.02 K/uL (0-0.2); Basophils % (auto) 0.2 %; Eosinophils # (auto) 0.31 K/uL (0-0.5); Eosinophils % (auto) 2.3 %; Hematocrit (blood only) 37.2 % (37-47); Hemoglobin 12.1 g/dL (12.0-16.0); Immature Granulocytes # (auto) 0.13 K/uL (0.00-0.02); Lymphocytes # (auto) 3.04 K/uL (1.2-3.4); Mean Corpuscular Hemoglobin 27.6 pg (25-34); Mean Corpuscular Hgb Conc 32.5 g/dL (32-36); Mean Corpuscular Volume 84.7 fL (80-100); Mean Platelet Volume 9.2 fL (7.4-10.4); Monocytes # (auto) 2.17 K/uL (0.11-0.59); Monocytes % (auto) 16.4 %; Neutrophils # (auto) 7.54 K/uL (1.4-6.5); Neutrophils % (auto) 57.1 %; Platelet Count 302 K/uL (130-400); RDW Coefficient of Variation 14.3 % (11.5-14.5); RDW Standard Deviation 44.3 fL (36.4-46.3); Red Blood Count 4.39 M/uL (4.2-5.4); White Blood Count 13.21 K/uL (4.8-10.8)
--- NOTE | 2021-07-13 18:23 | XRay Report ---
XR chest 1V portable HISTORY: Malaise. illness COMPARISON: Chest 05/22/2021. FINDINGS: No pneumothorax. No pleural effusions. The heart is mildly enlarged. There is diffuse inter stitial/vascular thickening consistent with mild interstitial pulmonary edema. No focal lung consolid ations to suggest pneumonia. Bilateral central venous catheters terminate at the SVC. This remains un changed. IMPRESSION: Cardiomegaly with mild interstitial pulmonary edema. ACT 112: Negative or not required by law. Electronically signed by: Jesus Alberto Hernández M.D. 07/13/2021 6:21 PM
[2021-07-13] MEDS ORDERED: CEFEPIME 2,000 MG/20 ML VIAL IV STA (18:31)
[2021-07-13] MEDS ORDERED: SODIUM CHLORIDE 0.9% 1000ML 500 ML IV ONE (18:31)
[2021-07-13] MEDS ORDERED: ONDANSETRON INJ 2 MG/ML 2 ML VIAL IV STA (18:39)
[2021-07-13 18:40] LABS: Albumin Globulin Ratio 1.2 (0.9-2); Albumin Level 3.7 gm/dl (3.4-5.0); BUN Creatinine Ratio 4.5 (10-20); Bilirubin,Total 0.7 mg/dl (0.2-1.0); Calcium 10.3 mg/dl (8.5-10.1); Creatinine Clr Calc Pharmacy 9.3 ml/min; Potassium 3.2 mmol/L (3.5-5.1); Total Protein 6.7 gm/dl (6.0-8.3)
--- NOTE | 2021-07-13 18:46 | Emergency Department Note ---
Impression & Plan Hypotension, UTI (urinary tract infection), Tachycardia, Weakness, Diaphoresis ED Provider Note NAME: JESUS CAO AGE: 65 SEX: F : 1955 ARRIVES VIA: Walk-In INFORMANT: [Patient] ED PROVIDER(S): [Monster Kendrick MD] CHIEF COMPLAINT: Nausea, vomiting HISTORY OF PRESENT ILLNESS: Patient is a 65-year-old female who states that yesterday at dialysis, she had to stop an hour early. She was nauseated and had some abdominal pain and developed some diarrhea. She vomited x2. Today, she has been weak and exhausted, she has had sweats. She has had nausea but no further vomiting. No further diarrhea. Her abdominal pain seems to come and go. She does not feel bloated. Patient has not noticed a fever. No cough or nasal congestion or sore throat. Despite her dialysis status, she does make urine and has had UTIs in the past. Of note, in triage, she was tachycardic and hypotensive. She had a sweating spell while waiting to be brought back to her room. REVIEW OF SYSTEMS: See HPI for pertinent positives and negatives. A total of ten systems were reviewed and were otherwise negative. PMHx/PSHx: See Below SOCIAL HISTORY: See Below. PHYSICAL EXAM: GENERAL: Patient is in no acute distress. HEENT: No acute trauma, normocephalic atraumatic, mucous membranes moist, no nasal congestion, no scleral icterus. NECK: No stridor, no adenopathy, no meningismus, trachea is midline. LUNGS: Clear to auscultation bilaterally, no wheeze, no rhonchi, breath sounds equal. HEART: Tachycardic, regular rhythm, subtle systolic murmur. ABDOMEN: Soft, nontender, bowel sounds positive, no hernias, no peritonitis. EXTREMITIES: No cyanosis or edema, full range of motion of all the joints without pain or difficulty. She has a contusion around her left arm dialysis fistula site. NEUROLOGIC: Oriented x 3, no acute motor or sensory deficits, no focal weakness. SKIN: No rash, no jaundice, no diaphoresis. DIFFERENTIAL DIAGNOSIS: Infection, UTI, sepsis, bacteremia, dehydration, metabolic abnormality, hypo/hyperglycemia, electrolyte disturbance, anemia, hypoxia, cardiac sources, intracerebral event, toxicologic issues, stroke, TIA, as well as other pathologies. EMERGENCY DEPARTMENT COURSE/PROCEDURES: ECG: Indication was tachycardia. The ECG shows a normal sinus rhythm with a rate of 99. There is an incomplete right bundle branch block. There is some subtle ST depression in the lateral leads with some T wave inversions. The same subtle ST changes are seen in the inferior leads. There is no ST elevation. The QTc is 462. Compared to an ECG from 17 May 2021, the incomplete right b undle branch block is new, the ST and T wave changes are new. Continuous Cardiac Monitoring: An order was placed for continuous cardiac monitoring. The monitor shows a rate of 128 with sinus tachycardia. Critical Care Note: I have personally spent 49 minutes of critical care time in the direct management of this patient. This includes bedside care, interpretation of diagnostic studies, and testing, discussion with consultants, patient, and family members, and other required patient management activities. This 49 minutes is in excess of all separately billable procedures. MEDICAL DECISION MAKING: There is a mild leukocytosis, this could be consistent with infection. There is a normal hemoglobin and platelet count. Renal panel testing shows a high creatinine consistent with her dialysis need. Potassium was a bit low at 3.2. Lactic acid level was not elevated making severe sepsis less likely. No worr isome liver enzyme elevation. ECG shows a normal sinus rhythm, no obvious acute ischemia. There were some subtle ST depressions noted though in the lateral leads as well as the inferior leads. Cardiac enzyme testing x1 is not consistent with acute cardiac injury. Urinalysis is concerning for infection. Chest film does not show any concerning CHF, no pneumothorax or pneumonia. Abdominal and pelvis CT shows some stranding around the bladder, no diverticulitis, no acute surgical process by CT imaging. The patient presented tachycardic and hypotensive. She had felt weak and she had been sweating earlier. Given her hypotension, she was aggressively managed. The patient was given a 750 cc saline bolus. I was careful with how much fluid was ordered as she does have a dialysis history. Patient's received oral potassium, IV Zofran. She was given IV cefepime as empiric antibiotic coverage. She was given some oral Tylenol. The patient's blood pressure is improved, her heart rate has improved. She does seem to be more comfortable. Given the hypotension, given the tachycardia, given her history and complaints, I do think a hospital stay is warranted. I did speak with case management, I spoke with the on-call hospitalist. Past Med/Surg History Medical History Anemia in chronic kidney disease AV fistula left upper arm (functioning), also one to left wrist, but does not function properly AV fistula left arm Chronic back pain Chronic steroid use ESRD (end stage renal disease) on dialysis not currently on dialysis per pt GERD (gastroesophageal reflux disease) HLD (hyperlipidemia) HTN (hypertension) Hypothyroidism Migraine Palpitations on occasion > saw Dr. Rivera recently, no further work up at this time per pt Sleep apnea no device currently > has apt soon to see about getting back on device Surgical History H/O cystoscopy History of appendectomy History of bilateral tubal ligation History of section x1 History of cholecystectomy History of colonoscopy History of esophagogastroduodenoscopy (EGD) History of kidney transplant 08/28/2016 @ [facility] (right side) functions at only 10%--d/t ESRD > follows with Dr. Roldan History of laparoscopy History of tonsillectomy and adenoidectomy History of tooth extraction History of vascular access device right chest History of wisdom tooth extraction Family History Grandmother (Paternal) Family history of diabetes mellitus Grandmother (Maternal) Family history of diabetes mellitus Family hx of colon cancer Mother Family hx of colon cancer Other No family history of adverse response to anesthesia Social History Smoking Status: Former smoker Tobacco Type: Cigarettes Second Hand Exposure: No; Do You Dip or Chew Tobacco: No; Tobacco Cessation Education Requested by Patient: No Hx Alcohol Use: No Hx Substance Use: No Preferred Language: Macedonian Communication Ability: Effective Clerical Support Required: No Beliefs That Will Affect Care: None marital status: Current Living Situation: Spouse Current Living Situation Comment: Lives with and daughter and her family How many Children do You have: 1 Other Information That Helps Us Care for You: No Feels Safe at Home: Yes Safety Concerns: Feels Safe At This Time Assistive Devices: Glasses and Oxygen - Continuous Allergies Allergies Allergy/AdvReac Type Severity Reaction Status Date / Time levofloxacin AdvReac Severe C-DIFF Verified 07/13/21 19:16 Home Meds Home Medications Medication Instructions Recorded Confirmed aspirin 81 mg chewable tablet 81 mg PO QAM 04/23/18 07/14/21 fluticasone propionate 50 2 spray INTRANASAL DAILY PRN 04/23/18 07/14/21 mcg/actuation nasal spray,suspension (Flonase Allergy Relief) gabapentin 100 mg capsule 100 mg PO BID 04/23/18 07/14/21 levothyroxine 50 mcg tablet 50 mcg PO QAM 04/23/18 07/14/21 omeprazole 40 mg capsule,delayed 40 mg PO QAM 04/23/18 07/14/21 release prednisone 5 mg tablet See Rx Instructions .ROUTE .COMPLEX 04/23/18 07/14/21 sodium bicarbonate 650 mg tablet 650 mg PO QAM 04/23/18 07/14/21 umeclidinium 62.5 mcg-vilanterol 1 puff INHALATION DAILY PRN 07/13/21 07/14/21 25 mcg/actuation powdr for inhalation (Anoro Ellipta) Previous Rx's Medication Instructions Recorded albuterol sulfate 90 mcg/actuation 2 puff INHALATION Q4H PRN #6.7 g 05/27/21 aerosol inhaler (Ventolin HFA) Results & Data (ED) Vital Signs Vital Signs - 24 hr 07/13/21 17:26 07/13/21 18:34 07/13/21 20:34 Temperature 36.7 C Temperature Source Temporal Artery Scan Pulse Rate 130 H Pulse Rate [Finger] 95 H 97 H Respiratory Rate 16 20 20 Respiratory Effort / Characteristics Non-Labored Respiratory Depth Normal Blood Pressure 76/53 L Blood Pressure [Left Arm] 90/60 L 114/83 Blood Pressure Mean 60 Blood Pressure Mean [Left Arm] 70 93 Pulse Oximetry 96 99 99 Oxygen Delivery Method Room Air Nasal Cannula Oxygen Flow Rate 3 Sepsis Recent Fever Within 48 Hours No Sepsis New/Unexplained Change in Mental Status No Sepsis Action Taken by Nursing No Action Required Home Medications Current Medication List: was personally reviewed by me Laboratory Data Attestation: I reviewed the patient's lab results. Result diagrams: 07/13/21 17:45 07/13/21 17:45 Lab Results 07/13/21 07/13/21 07/13/21 Range/Units 16:04 17:45 17:45 WBC 13.21 H (4.8-10.8) K/uL RBC 4.39 (4.2-5.4) M/uL Hgb 12.1 (12.0-16.0) g/dL Hct 37.2 (37-47) % MCV 84.7 (80-100) fL MCH 27.6 (25-34) pg MCHC 32.5 (32-36) g/dL RDW Std Deviation 44.3 (36.4-46.3) fL RDW Coeff of [place] 14.3 (11.5-14.5) % Plt Count 302 (130-400) K/uL MPV 9.2 (7.4-10.4) fL Immature Gran % (Auto) 1.0 % Neut % (Auto) 57.1 % Lymph % (Auto) 23.0 % Hughes % (Auto) 16.4 % Eos % (Auto) 2.3 % Baso % (Auto) 0.2 % Neut # (Auto) 7.54 H (1.4-6.5) K/uL Lymph # (Auto) 3.04 (1.2-3.4) K/uL Hughes # (Auto) 2.17 H (0.11-0.59) K/uL Eos # (Auto) 0.31 (0-0.5) K/uL Baso # (Auto) 0.02 (0-0.2) K/uL Immature Gran # (Auto) 0.13 H (0.00-0.02) K/uL Sodium 133 L (136-145) mmol/L Potassium 3.2 L (3.5-5.1) mmol/L Chloride 94 L (98-107) mmol/L Carbon Dioxide 26 (21-32) mmol/L Anion Gap 13 H (3-11) BUN 30 H (6-23) mg/dl Creatinine 6.67 H* (0.6-1.2) mg/dl Est Cr Clr Drug Dosing 9.3 ml/min Est GFR ( Amer) 7.0 ml/min Est GFR (Non-Af Amer) 6.0 ml/min BUN/Creatinine Ratio 4.5 L (10-20) Glucose 107 H (70-99(Fasting)) mg/dl Lactate (0.4-2.0) mmol/L Calcium 10.3 H (8.5-10.1) mg/dl Phosphorus (2.5-4.9) mg/dl Magnesium (1.7-2.4) mg/dl Total Bilirubin 0.7 (0.2-1.0) mg/dl AST 16 (13-39) U/L ALT 15 (7-52) U/L Alkaline Phosphatase 76 (34-104) U/L Troponin I High Sens (0-14) pg/ml Total Protein 6.7 (6.0-8.3) gm/dl Albumin 3.7 (3.4-5.0) gm/dl Globulin 3.0 (2.5-4.0) gm/dl Albumin/Globulin Ratio 1.2 (0.9-2) Urine Color Dark Yellow Urine Appearance Turbid A (Clear) Urine pH 5.0 (4.5-7.5) Ur Specific [place] 1.019 (1.000-1.030) Urine Protein 3+ H (Negative) Urine Glucose (UA) Negative (Negative) Urine Ketones Trace H (Negative) Urine Blood 1+ H (Negative) Urine Nitrite Negative (Negative) Urine Bilirubin Negative (Negative) Urine Urobilinogen Negative (Negative) Ur Leukocyte Esterase 2+ H (Negative) Urine WBC (Auto) >30 H (0-5) /hpf Urine RBC (Auto) 0-4 (0-4) /hpf U Hyaline Cast (Auto) 0 (0-5) /lpf U Epithel Cells (Auto) >30 H (0-5) /lpf Urine Bacteria (Auto) 2+ H (Negative) Urine Yeast Not Reportable SARS-CoV-2, RNA, NAAT (NEGATIVE) 07/13/21 07/13/21 07/13/21 Range/Units 19:00 19:00 20:23 WBC (4.8-10.8) K/uL RBC (4.2-5.4) M/uL Hgb (12.0-16.0) g/dL Hct (37-47) % MCV (80-100) fL MCH (25-34) pg MCHC (32-36) g/dL RDW Std Deviation (36.4-46.3) fL RDW Coeff of [place] (11.5-14.5) % Plt Count (130-400) K/uL MPV (7.4-10.4) fL Immature Gran % (Auto) % Neut % (Auto) % Lymph % (Auto) % Hughes % (Auto) % Eos % (Auto) % Baso % (Auto) % Neut # (Auto) (1.4-6.5) K/uL Lymph # (Auto) (1.2-3.4) K/uL Hughes # (Auto) (0.11-0.59) K/uL Eos # (Auto) (0-0.5) K/uL Baso # (Auto) (0-0.2) K/uL Immature Gran # (Auto) (0.00-0.02) K/uL Sodium (136-145) mmol/L Potassium (3.5-5.1) mmol/L Chloride (98-107) mmol/L Carbon Dioxide (21-32) mmol/L Anion Gap (3-11) BUN (6-23) mg/dl Creatinine (0.6-1.2) mg/dl Est Cr Clr Drug Dosing ml/min Est GFR ( Amer) ml/min Est GFR (Non-Af Amer) ml/min BUN/Creatinine Ratio (10-20) Glucose (70-99(Fasting)) mg/dl Lactate 0.9 (0.4-2.0) mmol/L Calcium (8.5-10.1) mg/dl Phosphorus 3.9 (2.5-4.9) mg/dl Magnesium 1.9 (1.7-2.4) mg/dl Total Bilirubin (0.2-1.0) mg/dl AST (13-39) U/L ALT (7-52) U/L Alkaline Phosphatase (34-104) U/L Troponin I High Sens 11.8 (0-14) pg/ml Total Protein (6.0-8.3) gm/dl Albumin (3.4-5.0) gm/dl Globulin (2.5-4.0) gm/dl Albumin/Globulin Ratio (0.9-2) Urine Color Urine Appearance (Clear) Urine pH (4.5-7.5) Ur Specific [place] (1.000-1.030) Urine Protein (Negative) Urine Glucose (UA) (Negative) Urine Ketones (Negative) Urine Blood (Negative) Urine Nitrite (Negative) Urine Bilirubin (Negative) Urine Urobilinogen (Negative) Ur Leukocyte Esterase (Negative) Urine WBC (Auto) (0-5) /hpf Urine RBC (Auto) (0-4) /hpf U Hyaline Cast (Auto) (0-5) /lpf U Epithel Cells (Auto) (0-5) /lpf Urine Bacteria (Auto) (Negative) Urine Yeast SARS-CoV-2, RNA, NAAT NEGATIVE (NEGATIVE) Administered Medications Gabapentin (Gabapentin 100 Mg Cap) 100 mg PO BID VU Stop: 08/13/21 00:14 Last Admin: 07/14/21 00:44 Dose: 100 mg Documented by: [id number] Vancomycin HCl 1,750 mg/ (Sodium Chloride) 535 mls @ 200 mls/hr IV ONE ONE Stop: 07/14/21 03:25 Last Admin: 07/14/21 00:42 Dose: 200 mls/hr Documented by: [id number] Discontinued Medications Acetaminophen (Acetaminophen 500 Mg Tab) 1,000 mg PO NOW STA Stop: 07/13/21 20:18 Last Admin: 07/13/21 20:26 Dose: 1,000 mg Documented by: [id number] Sodium Chloride (Nss 1000ml) 500 mls @ 999 mls/hr IV .Q31M ONE Stop: 07/13/21 19:01 Last Infusion: 07/13/21 20:26 Dose: 0 mls/hr Documented by: [id number] Admin: 07/13/21 19:12 Dose: 999 mls/hr Documented by: [id number] Cefepime HCl (Maxipime) 2,000 mg in 20 mls @ 5 mls/min IV NOW STA; Protocol Stop: 07/13/21 18:34 Last Admin: 07/13/21 19:12 Dose: 5 mls/min Documented by: [id number] Ceftriaxone Sodium 2,000 mg/ (Dextrose) 70 mls @ 100 mls/hr IV Q24H VU; Protocol Stop: 07/19/21 00:00 Last Admin: 07/14/21 00:48 Dose: Not Given Documented by: [id number] Sodium Chloride (Nss 1000ml) 500 mls @ 125 mls/hr IV .Q4H VU Stop: 10/05/21 08:14 Last Admin: 07/14/21 00:49 Dose: Not Given Documented by: [id number] Ondansetron HCl (Ondansetron Inj 2 Mg/Ml 2 Ml Vial) 4 mg IV NOW STA Stop: 07/13/21 18:40 Last Admin: 07/13/21 19:12 Dose: 4 mg Documented by: [id number] Potassium Chloride (Potassium Chloride Crtab 20 Meq Tabcr) 40 meq PO NOW STA Stop: 07/13/21 21:12 Last Admin: 07/13/21 21:19 Dose: 40 meq Documented by: [id number] Imaging Data Radiologist's Impression: Chest X-Ray 07/13/21 17:35 XR chest 1V portable HISTORY: Malaise. illness COMPARISON: Chest 05/22/2021. FINDINGS: No pneumothorax. No pleural effusions. The heart is mildly enlarged. There is diffuse interstitial/vascular thickening consistent with mild interstitial pulmonary edema. No focal lung consolidations to suggest pneumonia. Bilateral central venous catheters terminate at the SVC. This remains unchanged. IMPRESSION: Cardiomegaly with mild interstitial pulmonary edema. ACT 112: Negative or not required by law. Electronically signed by: Jesus Alberto Hernández M.D. 07/13/2021 6:21 PM Abdomen/Pelvis CT 07/13/21 18:[address] WITHOUT CONTRAST CT DOSE: 722.15 mGy.cm HISTORY: Generalized abdominal pain, vomiting TECHNIQUE: Multiaxial CT images of the abdomen and pelvis were performed without contrast. A dose lowering technique was utilized adhering to the principles of ALARA. COMPARISON STUDY: Abdomen and pelvis CT 02/22/2016. FINDINGS: Scattered small tree-in-bud nodular opacities seen within the lung bases. This favors a mild chronic bronchiolitis. No pneumoperitoneum. No pneumatosis. No fractures within the visualized osseous structures. Hepatic steatosis. Cholecystectomy. The unenhanced pancreas, spleen, left adrenal gland are unremarkable. There is a 4 mm right adrenal gland nodule, unchanged. This is likely benign. There are severely atrophic [place] kidneys. Stable exophytic 4 cm cyst within the upper pole the right kidney. Calcifications within the [place] kidneys may be vascular. Mild bladder wall thickening with adjacent fat stran ding. No retroperitoneal lymphadenopathy. Mild calcified plaque within the normal caliber abdominal aorta. There is a right lower quadrant renal transplant. No hydronephrosis of the renal transplant. The uterus and bilateral adnexa are unremarkable. No pelvic free fluid. Suboptimal evaluation for bowel pathology due to the lack of intravenous and oral contrast. However, there is no definite bowel wall thickening or obstruction. Prior appendectomy. Possible 2.9 cm soft tissue nodule between the left hepatic lobe and stomach best seen on image 82. This could represent exophytic liver tissue. Minimal fat stranding surrounding the right renal transplant. Mild mesenteric diverticulitis. This is of doubtful clinical significance. IMPRESSION: 1. No bowel wall thickening or obstruction. 2. Bladder wall thickening with adjacent fat stranding. There is also mild fat stranding surrounding the right lower quadrant renal transplant. Findings could represent a cystitis/pyelonephritis. Recommend correlate with urinalysis. 3. Prior cholecystectomy and appendectomy. 4. Possible 2.9 cm soft tissue nodule located between the left hepatic lobe and stomach. This could represent exophytic liver tissue. However, follow-up nonemergent dedicated liver MRI is recommended for further evaluation. 5. Hepatic steatosis. 6. Additional findings as described above. ACT 112: Positive. There are findings on this exam that require communication between the performing entity and the patient following Patient Test Result Information Act ([place] Act 112) guidelines. Electronically signed by: Jesus Alberto Hernández M.D. 07/13/2021 7:38 PM Discharge Plan Visit Data Chief Complaint: Nausea Stated Complaint: NAUSEA, WEAKNESS - ON DIALYSIS ED Provider: Monster Kendrick Discharge Problem: Hypotension, UTI (urinary tract infection), Tachycardia, Weakness, Diaphoresis Patient Disposition: Admitted As Inpatient Condition: Fair Discharge Instructions Interventions: ED Discharge Assessment Last Done: 07/13/21 21:56
--- NOTE | 2021-07-13 19:40 | CT Scan Report ---
ABDOMEN AND PELVIS CT WITHOUT CONTRAST CT DOSE: 722.15 mGy.cm HISTORY: Generalized abdominal pain, vomiting TECHNIQUE: Multiaxial CT images of the abdomen and pelvis were performed without contrast. A dose lo wering technique was utilized adhering to the principles of ALARA. COMPARISON STUDY: Abdomen and pelvis CT 02/22/2016. FINDINGS: Scattered small tree-in-bud nodular opacities seen within the lung bases. This favors a mil d chronic bronchiolitis. No pneumoperitoneum. No pneumatosis. No fractures within the visualized osse ous structures. Hepatic steatosis. Cholecystectomy. The unenhanced pancreas, spleen, left adrenal gla nd are unremarkable. There is a 4 mm right adrenal gland nodule, unchanged. This is likely benign. Th ere are severely atrophic [place] kidneys. Stable exophytic 4 cm cyst within the upper pole the right kidney. Calcifications within the [place] kidneys may be vascular. Mild bladder wall thickening with a djacent fat stranding. No retroperitoneal lymphadenopathy. Mild calcified plaque within the normal ca liber abdominal aorta. There is a right lower quadrant renal transplant. No hydronephrosis of the myriam al transplant. The uterus and bilateral adnexa are unremarkable. No pelvic free fluid. Suboptimal kee luation for bowel pathology due to the lack of intravenous and oral contrast. However, there is no de finite bowel wall thickening or obstruction. Prior appendectomy. Possible 2.9 cm soft tissue nodule b etween the left hepatic lobe and stomach best seen on image 82. This could represent exophytic liver tissue. Minimal fat stranding surrounding the right renal transplant. Mild mesenteric diverticulitis. This is of doubtful clinical significance. IMPRESSION: 1. No bowel wall thickening or obstruction. 2. Bladder wall thickening with adjacent fat stranding. There is also mild fat stranding surrounding the right lower quadrant renal transplant. Findings could represent a cystitis/pyelonephritis. Recomm end correlate with urinalysis. 3. Prior cholecystectomy and appendectomy. 4. Possible 2.9 cm soft tissue nodule located between the left hepatic lobe and stomach. This could r epresent exophytic liver tissue. However, follow-up nonemergent dedicated liver MRI is recommended fo r further evaluation. 5. Hepatic steatosis. 6. Additional findings as described above. ACT 112: Positive. There are findings on this exam that require communication between the performing entity and the patient following Patient Test Result Information Act ([place] Act 112) guidelines. Electronically signed by: Jesus Alberto Hernández M.D. 07/13/2021 7:38 PM
[2021-07-13 20:03] LABS: Troponin I High Sensitivity 11.8 pg/ml (0-14)
[2021-07-13 20:05] LABS: Magnesium 1.9 mg/dl (1.7-2.4); Phosphorus 3.9 mg/dl (2.5-4.9)
[2021-07-13] MEDS ORDERED: ACETAMINOPHEN 500 MG TAB PO STA (20:17)
[2021-07-13 20:42] LABS: Appearance Urine Turbid (Clear); Bacteria Urine Automated 2+ (Negative); Bilirubin Urine Negative (Negative); Blood Urine 1+ (Negative); Color Urine Dark Yellow; Epithelial Cell Urine Auto >30 /lpf (0-5); Glucose Urine UA Negative (Negative); Ketones Urine Trace (Negative); Leukocyte Esterase Urine 2+ (Negative); Nitrite Urine Negative (Negative); Protein Urine 3+ (Negative); RBC Urine Automated 0-4 /hpf (0-4); Specific Gravity Urine 1.019 (1.000-1.030); Urobilinogen Urine Negative (Negative); WBC Urine Automated >30 /hpf (0-5)
[2021-07-13 21:03] LABS: Cast Urine Automated 0 /lpf (0-5)
[2021-07-13] MEDS ORDERED: POTASSIUM CHLORIDE CRTAB 20 MEQ TABCR PO STA (21:11)
--- NOTE | 2021-07-13 21:12 | History & Physical Report ---
Date of Service July 13, 2021 Assessment & Plan (1) Sepsis: Plan: Likely source is UTI. She responded well to IVF given in the ER this evening from a hemodynamic perspective and was started on cefepime. Will add vancomycin given her chronic prednisone use and h/o renal transplant. Blood and urine cultures are pending. (2) UTI (urinary tract infection): Plan: Abx as above. She does have some fat stranding around the RLQ renal transplant. Cont broad abx in case of pyelo here and consult with nephrology. (3) ESRD (end stage renal disease) on dialysis: Plan: Consult nephrology to continue as inpatient. Renally dose medications as needed. Avoid NSAIDs or other nephrotoxins. (4) Hypoxia: Plan: chronic hypoxia, on 3LPM via nasal canula at home. (5) Failed kidney transplant: Plan: recently put onto HD, and has reapplied for repeat transplant. (6) Hypothyroidism: Plan: chronic, stable, cont levothyroxine per home regimen. (7) Chronic steroid use: Plan: continues on alternating doses of prednisone 5mg/2.5mg (8) DVT prophylaxis: Plan: heparin Full Code-confirmed on admission with the patient Dispo-PCU [facility] History of Present Illness Chief Complaint: nausea Primary Care Provider: Kenneth Butt MD 65 yo F renal transplant patient with poor renal function recently started on hemodialysis presents with hypotension and tachycardia, nausea and h/o diarrhea, requiring her recent dialysis session to be stopped early on Monday because she wasn't feeling well. She reports eating a cheeseburger and fries from [employer] today and states the nausea and diarrhea has now resolved. She did report feeling sweaty and was found to be hypotensive in the ER today when she was here with her who was a patient. She reports burning with urination for the past two days. She denies fevers, chills, abdominal or pelvic pain, chest pain, SOB. Denies back pain. Although she is on HD she still makes urine. She is a failed renal transplant who has reapplied for retransplant and is on chronic prednisone. Improved with IVF in the ER (750cc). Noted CXR with mild interstitial pulmonary edema. She is on chronic oxygen 3LPM at home via nasal canula. She reports a history of [place] but is not on CPAP and is awaiting a repeat sleep study as outpatient. Allergies Allergy/AdvReac Type Severity Reaction Status Date / Time levofloxacin AdvReac Severe C-DIFF Verified 07/13/21 19:16 Home Medications Medication Instructions Recorded Confirmed Type aspirin 81 mg chewable tablet 81 mg PO QAM 04/23/18 07/14/21 History fluticasone propionate 50 2 spray INTRANASAL DAILY PRN 04/23/18 07/14/21 History mcg/actuation nasal spray,suspension (Flonase Allergy Relief) gabapentin 100 mg capsule 100 mg PO BID 04/23/18 07/14/21 History levothyroxine 50 mcg tablet 50 mcg PO QAM 04/23/18 07/14/21 History omeprazole 40 mg capsule,delayed 40 mg PO QAM 04/23/18 07/14/21 History release prednisone 5 mg tablet See Rx Instructions .ROUTE .COMPLEX 04/23/18 07/14/21 History sodium bicarbonate 650 mg tablet 650 mg PO QAM 04/23/18 07/14/21 History albuterol sulfate 90 mcg/actuation 2 puff INHALATION Q4H PRN #6.7 g 05/27/21 07/14/21 Rx aerosol inhaler (Ventolin HFA) umeclidinium 62.5 mcg-vilanterol 1 puff INHALATION DAILY PRN 07/13/21 07/14/21 History 25 mcg/actuation powdr for inhalation (Anoro Ellipta) Past Med/Surg History Medical History (Updated 07/14/21 @ 00:29 by Carrie Pratt, ) Anemia in chronic kidney disease AV fistula left upper arm (functioning), also one to left wrist, but does not function properly AV fistula left arm Chronic back pain Chronic steroid use ESRD (end stage renal disease) on dialysis not currently on dialysis per pt GERD (gastroesophageal reflux disease) HLD (hyperlipidemia) HTN (hypertension) Hypothyroidism Migraine Palpitations on occasion > saw Dr. Rivera recently, no further work up at this time per pt Sleep apnea no device currently > has apt soon to see about getting back on device Surgical History H/O cystoscopy History of appendectomy History of bilateral tubal ligation History of section x1 History of cholecystectomy History of colonoscopy History of esophagogastroduodenoscopy (EGD) [place] of [place] [facility] [place] at [place] 10%--d/t ESRD > follows with Dr. Roldan History of laparoscopy History of tonsillectomy and adenoidectomy History of tooth extraction History of vascular access device right chest History of wisdom tooth extraction Family History Grandmother (Paternal) Family history of diabetes mellitus Grandmother (Maternal) Family history of diabetes mellitus Family hx of colon cancer Mother Family hx of colon cancer Other No family history of adverse response to anesthesia Social History Smoking Status: Former smoker Tobacco Type: Cigarettes Second Hand Exposure: No; Do You Dip or Chew Tobacco: No; Tobacco Cessation Education Requested by Patient: No Hx Alcohol Use: No Hx Substance Use: No Preferred Language: Senegalese Communication Ability: Effective Customer Service Technician Required: No Beliefs That Will Affect Care: None marital status: Current Living Situation: Spouse Current Living Situation Comment: Lives with and daughter and her family How many Children do You have: 1 Other Information That Helps Us Care for You: No Feels Safe at Home: Yes Safety Concerns: Feels Safe At This Time Assistive Devices: Glasses and Oxygen - Continuous Review of Systems Review of Systems: All systems were reviewed and negative except as indicated in HPI above. Physical Exam Physical Exam: CONSTITUTIONAL: WNWD, vitals as above, generally well- appearing, NAD EYES: normal conjunctivae, no scleral icterus ENT: external ear and nose normal, MMM NECK: trachea midline RESPIRATORY: clear to auscultation bilaterally, no crackles, rales or wheezes, normal respiratory effort CARDIOVASCULAR: regular rate and rhythm, S1 and 2 heard without murmurs, gallops or rubs, no JVD, no peripheral edema, +palpable thrill in LUE fistula. There is ecchymosis that is a deep purple in a band distribution around her L biceps. CHEST: HD catheter to anterior chest. GASTROINTESTINAL: soft, nontender, ND, no guarding MUSCULOSKELETAL: strength 5/5 throughout, head is normocephalic and atraumatic, neck supple, normal palpation of chest wall without tenderness SKIN: warm and dry NEUROLOGIC: CN 2-12 grossly intact, no sensory deficit, normal cognition, normal speech, no tremor, no gross focal deficits. PSYCHIATRIC: alert cooperative and oriented to person, place and time. Results & Data Results & Data ([facility]) Vital Signs (Past 12 Hours) Vital Signs Temp Pulse Pulse Resp BP BP Pulse Ox 07/13/21 20:34 97 H 20 114/83 99 07/13/21 18:34 95 H 20 90/60 L 99 07/13/21 17:26 36.7 C 130 H 16 76/53 L 96 Laboratory Results Short CBC 07/13/21 Range/Units 17:45 WBC 13.21 H (4.8-10.8) K/uL Hgb 12.1 (12.0-16.0) g/dL Hct 37.2 (37-47) % Plt Count 302 (130-400) K/uL BMP 07/13/21 17:45 Sodium 133 L Potassium 3.2 L Chloride 94 L Carbon Dioxide 26 BUN 30 H Creatinine 6.67 H* Glucose 107 H Calcium 10.3 H Liver Function 07/13/21 Range/Units 17:45 Total Bilirubin 0.7 (0.2-1.0) mg/dl AST 16 (13-39) U/L ALT 15 (7-52) U/L Alkaline Phosphatase 76 (34-104) U/L Albumin 3.7 (3.4-5.0) gm/dl Urine 07/13/21 Range/Units 16:04 Urine Color Dark Yellow Urine Appearance Turbid A (Clear) Urine pH 5.0 (4.5-7.5) Ur Specific [place] 1.019 (1.000-1.030) Urine Protein 3+ H (Negative) Urine Glucose (UA) Negative (Negative) Diagnostic Findings Chest X-Ray 07/13/21 17:35 XR chest 1V portable HISTORY: Malaise. illness COMPARISON: Chest 05/22/2021. FINDINGS: No pneumothorax. No pleural effusions. The heart is mildly enlarged. There is diffuse interstitial/vascular thickening consistent with mild interstitial pulmonary edema. No focal lung consolidations to suggest pneumonia. Bilateral central venous catheters terminate at the SVC. This remains unchanged. IMPRESSION: Cardiomegaly with mild interstitial pulmonary edema. ACT 112: Negative or not required by law. Electronically signed by: Jesus Alberto Hernández M.D. 07/13/2021 6:21 PM Abdomen/Pelvis CT 07/13/21 18:[address] WITHOUT CONTRAST CT DOSE: 722.15 mGy.cm HISTORY: Generalized abdominal pain, vomiting TECHNIQUE: Multiaxial CT images of the abdomen and pelvis were performed without contrast. A dose lowering technique was utilized adhering to the principles of ALARA. COMPARISON STUDY: Abdomen and pelvis CT 02/22/2016. FINDINGS: Scattered small tree-in-bud nodular opacities seen within the lung bases. This favors a mild chronic bronchiolitis. No pneumoperitoneum. No pneumatosis. No fractures within the visualized osseous structures. Hepatic steatosis. Cholecystectomy. The unenhanced pancreas, spleen, left adrenal gland are unremarkable. There is a 4 mm right adrenal gland nodule, unchanged. This is likely benign. There are severely atrophic benton kidneys. Stable exophytic 4 cm cyst within the upper pole the right kidney. Calcifications within the benton kidneys may be vascular. Mild bladder wall thickening with adjacent fat stranding. No retroperitoneal lymphadenopathy. Mild calcified plaque within the normal caliber abdominal aorta. There is a right lower quadrant renal transplant. No hydronephrosis of the renal transplant. The uterus and bilateral adnexa are unremarkable. No pelvic free fluid. Suboptimal evaluation for bowel pathology due to the lack of intravenous and oral contrast. However, there is no definite bowel wall thickening or obstruction. Prior appendectomy. Possible 2.9 cm soft tissue nodule between the left hepatic lobe and stomach best seen on image 82. This could represent exophytic liver tissue. Minimal fat stranding surrounding the right renal transplant. Mild mesenteric diverticulitis. This is of doubtful clinical significance. IMPRESSION: 1. No bowel wall thickening or obstruction. 2. Bladder wall thickening with adjacent fat stranding. There is also mild fat stranding surrounding the right lower quadrant renal transplant. Findings could represent a cystitis/pyelonephritis. Recommend correlate with urinalysis. 3. Prior cholecystectomy and appendectomy. 4. Possible 2.9 cm soft tissue nodule located between the left hepatic lobe and stomach. This could represent exophytic liver tissue. However, follow-up nonemergent dedicated liver MRI is recommended for further evaluation. 5. Hepatic steatosis. 6. Additional findings as described above. ACT 112: Positive. There are findings on this exam that require communication between the performing entity and the patient following Patient Test Result Information Act ([place] Act 112) guidelines. Electronically signed by: Jesus Alberto Hernández M.D. 07/13/2021 7:38 PM Code Status & VTE Plan VTE Prophylaxis Plan VTE Prophylaxis will be ordered: Yes
[2021-07-13] MEDS ORDERED: ACETAMINOPHEN 325 MG TAB PO PRN (22:05)
[2021-07-13] MEDS ORDERED: POLYETHYLENE (MIRALAX) 17 GM PACK PO PRN (22:05)
[2021-07-14] MEDS ORDERED: cefTRIAXone SODIUM 2,000 MG in DEXTROSE 5% 50 ML IV SCH
[2021-07-14] MEDS ORDERED: FLUTICASONE PROPIONATE NA SPR 16 GM BTL NAE PRN (00:06)
[2021-07-14] MEDS ORDERED: UMECLIDINIUM/VILANTEROL 62.5/25MCG 7 PUFFS/INHALER INH PRN (00:06)
[2021-07-14] MEDS ORDERED: ALBUTEROL HFA 8 GM INHALER INH PRN (00:06)
[2021-07-14] MEDS ORDERED: SODIUM CHLORIDE 0.9% 1000ML 500 ML IV SCH (00:15)
[2021-07-14] MEDS ORDERED: VANCOMYCIN CONSULT ACTIVE PRN (00:23)
[2021-07-14] MEDS: GABAPENTIN 100 MG CAP PO SCH ×3 (00:44→20:41)
[2021-07-14] MEDS ORDERED: VANCOMYCIN HCL 1,750 MG in SODIUM CHLORIDE 0.9% 500 ML IV ONE (00:45)
[2021-07-14] MEDS: HEPARIN SOD 5,000 UNIT/0.5 ML VIAL SQ SCH ×3 (06:01→20:41)
[2021-07-14] MEDS: LEVOTHYROXINE SODIUM 50 MCG TABLET PO SCH (06:01)
[2021-07-14] MEDS: PANTOprazole 40 MG TAB PO SCH (06:02)
[2021-07-14 06:58] LABS: Hematocrit (blood only) 31.9 % (37-47); Hemoglobin 10.2 g/dL (12.0-16.0); Mean Corpuscular Hemoglobin 27.9 pg (25-34); Mean Corpuscular Volume 87.4 fL (80-100); Platelet Count 233 K/uL (130-400); RDW Coefficient of Variation 14.7 % (11.5-14.5); RDW Standard Deviation 47.3 fL (36.4-46.3); Red Blood Count 3.65 M/uL (4.2-5.4); White Blood Count 8.04 K/uL (4.8-10.8)
[2021-07-14 07:50] LABS: BUN Creatinine Ratio 4.6 (10-20); Calcium 9.3 mg/dl (8.5-10.1); Creatinine Clr Calc Pharmacy 8.7 ml/min; Est GFR (African American) 6.4 ml/min; Est GFR (Non-African American) 5.6 ml/min; Magnesium 1.8 mg/dl (1.7-2.4); Phosphorus 4.9 mg/dl (2.5-4.9); Potassium 3.8 mmol/L (3.5-5.1)
[2021-07-14] MEDS: predniSONE 5 MG TAB PO SCH (08:32)
[2021-07-14] MEDS: SODIUM BICARBONATE 650 MG TAB PO SCH (08:32)
[2021-07-14] MEDS: ASPIRIN 81 MG ECTAB PO SCH (08:33)
[2021-07-14] MEDS ORDERED: SODIUM CHLORIDE 0.9% 1000ML 1,000 ML IV PRN (09:00)
[2021-07-14] MEDS ORDERED: HEPARIN SOD (PORCINE) 1000 UNIT/ML IV ONE (09:00)
[2021-07-14] MEDS ORDERED: EPOETIN ALFA 4,000 UNIT/ML VIAL IV SCH (10:00)
[2021-07-14] MEDS: HEPARIN SOD (PORCINE) 1000 UNIT/ML IV SCH ×2 (11:22→11:23)
--- NOTE | 2021-07-14 12:55 | Consultation Report ---
NEPHROLOGY CONSULTATION NOTE DATE OF SERVICE: 07/14/2021. REASON FOR CONSULTATION: Dialysis. Patient admitted with nausea, weakness, and tachycardia. HISTORY OF PRESENT ILLNESS: The patient is a 65-year-old female status post renal transplant, recently failed and back on hemodialysis. She presented to the hospital because of low blood pressure, tachycardia, nausea, some diarrhea as well as weakness. She admitted feeling sweaty and was found to be hypotensive in the Emergency yesterday. She received some IV fluid and with that blood pressure did improve significantly. She gets dialysis Monday, Monday, Monday at the [facility] unit. Currently has both dialysis catheter as well as AV fistula. She is also on chronic oxygen 3 liters via nasal cannula for her history of obstructive sleep apnea as well as COPD. At this time, the patient feels better and she is due for dialysis today. ALLERGIES: LEVOFLOXACIN. MEDICATIONS: Home medication list was reviewed in full detail and is as per the reconciliation list; however, I am not sure if she has the correct list. I believe she is also on Prograf at a low dose and I will confirm that later. PAST MEDICAL AND SURGICAL HISTORY: Includes anemia of chronic kidney disease,, left arm AV fistula, chronic back pain, chronic steroid use, end-stage renal disease on dialysis, status post kidney transplant and failed hypothyroidism, hypertension, hyperlipidemia, GERD, migraine, obstructive sleep apnea, but does not have a CPAP at this time, cystoscopy, appendicectomy, bilateral tubal ligation, , cholecystectomy, colonoscopy, EGD, history of kidney transplant in 2017, laparoscopy, tonsillectomy, adenoidectomy, tooth extraction, vascular access device right chest, wisdom tooth extraction. FAMILY HISTORY: Negative for renal disease or dialysis, but positive for diabetes. SOCIAL HISTORY: Former smoker. She is and lives with her spouse. She uses oxygen at home. REVIEW OF SYSTEMS: All systems were reviewed and negative unless stated otherwise in HPI. PHYSICAL EXAMINATION: GENERAL: Obese white female who is not in any overt respiratory distress. She does use oxygen chronically. VITAL SIGNS: Blood pressure is 96/59, pulse rate 78, temperature 36.8, oxygen saturation 95% on 3 L cannula. CHEST: Bilateral decreased breath sounds. CARDIOVASCULAR: S1 and S2, regular. ABDOMEN: Soft, nontender. EXTREMITIES: Show no edema. SKIN: Shows no rash. LABORATORY TEST: Blood work from this morning shows sodium 134, potassium 3.8, BUN 33, creatinine 7.14, calcium 9.3, phosphorus 4.9, magnesium 1.8. Lactic acid 0.9. Procalcitonin 0.49. Urine was felt to be infected and she is on empiric antibiotics. Urine culture pending. Blood culture pending. ASSESSMENT AND PLAN: A 65-year-old female with end-stage renal disease on chronic hemodialysis Monday, Monday, Monday and recently started on dialysis after a failed kidney transplant. Now admitted with multitude of symptoms, which are somewhat hard to pinpoint. 1. End-stage renal disease, she is due for dialysis today. We will do 3 hours 30 minutes and take about 2 kilos of fluid off as tolerated by her blood pressure. On the chest x-ray, she does have some pulmonary congestion and given her compromised lung status, we do have to be as aggressive as possible in taking the fluid off. We will use dialysis catheter given significant bruising around her AV fistula site. 3.5 hours, 2K bath. We will also give some heparin and Procrit. 2. Status post failed kidney transplant. She is actually taking Prograf 0.5 mg daily at this time. I did double check with her outpatient medication list and we will correct the medicine list. In any case, I do not expect the patient to be in the hospital for many days. 3. Possible infection. It is not exactly clear whether she has infection anywhere or not. Lactic acid was normal. Procalcitonin was normal, and she is not really acting like septic patient at this point. Given that she is a dialysis patient, not unusual to have low blood pressure. We will be following up on the blood and urine culture and she is currently on empiric antibiotics, which will be continued. Job ID: [id number] [facility]
--- NOTE | 2021-07-14 13:24 | Pharmacy Report ---
Pharmacy [facility] Short Note - Date of Service July 14, 2021 - Assessment & Plan Assessment 65 year old admitted with hypotension/tachycardia. Started empirically on vancomycin/cefepime for possible urinary infection concerns. Patient is a renal transplant recently started on HD. Per notes, patient still produces some urine. Hx of e coli UTI 05/2021 - resistant to FQs and ampicillin. Cultures currently pending. Plan Vancomycin * Given vancomycin loading dose of ~1750 mg x 1 late last evening. (~20 mg/kg/dose) * Random vancomycin level this AM ~22 mcg/ml - plan for dialysis today. Therefore anticipate a ~30% removal of vancomycin from dialysis. Level post dialysis estimated closer to ~15 mcg/ml. Will give vancomycin 500 mg x 1 this evening * Plan to order a random level in the AM to assist with further dosing. Unclear plan for HD moving forward. Typically on a MWF schedule outpatient Pharmacy will continue to follow and will adjust dose/frequency as necessary. Thank you.
--- NOTE | 2021-07-14 14:54 | Hospitalist Progress Note ---
Date of Service July 14, 2021 Assessment & Plan (1) Sepsis: Plan: Immunocompromised patient Likely source:UTI CT ABD:Bladder wall thickening with adjacent fat stranding. There is also mild fat stranding surrounding the right lower quadrant renal transplant. Findings could represent a cystitis/pyelonephritis. Recommend correlate with urinalysis. Recently received antibiotic given by PCP as per patient Blood, urine culture pending Continue cefepime, Vanco for now Titrate antibiotics as able (2) UTI (urinary tract infection): Plan: Management as above Abnormal CT CT Showed Possible 2.9 cm soft tissue nodule located between the left hepatic lobe and stomach. This could represent exophytic liver tissue. However, follow- up nonemergent dedicated liver MRI is recommended for further evaluation. Further work up as outpatient (3) ESRD (end stage renal disease) on dialysis: Plan: Appreciate Nephrology Input Avoid NSAIDs or other nephrotoxins. (4) Hypoxia: Plan: chronic hypoxia, on 3LPM via nasal canula at home. (5) Failed kidney transplant: Plan: recently put onto HD, and has reapplied for repeat transplant. Patient was discontinued on Prograf 1 week ago as per patient (6) Hypothyroidism: Plan: continue levothyroxine (7) Chronic steroid use: Plan: continues on alternating doses of prednisone 5mg/2.5mg (8) DVT prophylaxis: Plan: heparin SQ Code Status Full Code Admission and Anticipated Discharge Date Admission Date: July 13, 2021 Subjective Patient is seen and examined at bedside Had hemodialysis earlier today States feeling better today Dysuria slowly improving Denies any chest pain, shortness of breath, dizziness, nausea, abdominal pain Review of Systems Review of Systems: All systems reviewed & are unremarkable except as noted in Subjective Physical Exam Physical Exam: Physical Exam: Vitals signs as noted above General Appearance:Obese, no apparent distress Head: normocephalic, Atraumatic Eyes: normal inspection, EOMI Neck: supple, Trachea midline Respiratory/Chest: Normal breath sounds, CTA, No accessory muscle use Cardiovascular: S1, S2, No murmur Abdomen/GI:Soft, Non tender, Bowel sounds present Extremities/Musculoskeletal:normal inspection, no edema Neurologic/Psych:AAOX3, grossly no focal neurological deficits Skin: normal color, warm Results & Data Results & Data ([facility]) Vital Signs (Past 12 Hours) Vital Signs Temp Pulse Pulse Resp BP BP Pulse Ox 07/14/21 14:09 37.4 C 79 104/60 07/14/21 13:30 78 105/59 L 07/14/21 13:00 78 96/60 L 07/14/21 12:30 71 118/33 L 07/14/21 12:00 77 108/49 L 07/14/21 11:30 77 108/49 L 07/14/21 11:00 36.9 C 77 07/14/21 10:14 78 07/14/21 07:32 36.8 C 84 19 96/59 L 95 07/14/21 03:15 36.3 C L 79 18 92/60 L 97 Laboratory Results Short CBC 07/13/21 07/14/21 Range/Units 17:45 06:41 WBC 13.21 H 8.04 (4.8-10.8) K/uL Hgb 12.1 10.2 L (12.0-16.0) g/dL Hct 37.2 31.9 L (37-47) % Plt Count 302 233 (130-400) K/uL BMP 07/13/21 07/14/21 17:45 06:41 Sodium 133 L 134 L Potassium 3.2 L 3.8 Chloride 94 L 101 Carbon Dioxide 26 24 BUN 30 H 33 H Creatinine 6.67 H* 7.14 H* D Glucose 107 H 111 H Calcium 10.3 H 9.3 Liver Function 07/13/21 Range/Units 17:45 Total Bilirubin 0.7 (0.2-1.0) mg/dl AST 16 (13-39) U/L ALT 15 (7-52) U/L Alkaline Phosphatase 76 (34-104) U/L Albumin 3.7 (3.4-5.0) gm/dl Urine 07/13/21 Range/Units 16:04 Urine Color Dark Yellow Urine Appearance Turbid A (Clear) Urine pH 5.0 (4.5-7.5) Ur Specific [place] 1.019 (1.000-1.030) Urine Protein 3+ H (Negative) Urine Glucose (UA) Negative (Negative)
[2021-07-14] MEDS ORDERED: VANCOMYCIN HCL 500 MG in DEXTROSE 5% 100 ML IV ONE (16:00)
[2021-07-14] MEDS: CEFEPIME 500 MG in SYRINGE 0 ML IV SCH (17:09)
[2021-07-15] MEDS ORDERED: MELATONIN 3 MG TAB PO PRN (00:40)
[2021-07-15] MEDS: HEPARIN SOD 5,000 UNIT/0.5 ML VIAL SQ SCH ×3 (05:34→20:38)
[2021-07-15] MEDS: LEVOTHYROXINE SODIUM 50 MCG TABLET PO SCH (05:34)
[2021-07-15] MEDS: PANTOprazole 40 MG TAB PO SCH (05:34)
[2021-07-15 07:43] LABS: Hematocrit (blood only) 29.5 % (37-47); Hemoglobin 9.4 g/dL (12.0-16.0); Mean Corpuscular Hemoglobin 27.7 pg (25-34); Mean Corpuscular Hgb Conc 31.9 g/dL (32-36); Mean Platelet Volume 8.9 fL (7.4-10.4); Platelet Count 238 K/uL (130-400); RDW Coefficient of Variation 14.7 % (11.5-14.5); RDW Standard Deviation 46.4 fL (36.4-46.3); Red Blood Count 3.39 M/uL (4.2-5.4)
[2021-07-15 07:58] LABS: BUN Creatinine Ratio 4.2 (10-20); Calcium 9.2 mg/dl (8.5-10.1); Creatinine Clr Calc Pharmacy 9.8 ml/min; Est GFR (African American) 7.3 ml/min; Est GFR (Non-African American) 6.3 ml/min; Potassium 3.6 mmol/L (3.5-5.1)
[2021-07-15] MEDS: ASPIRIN 81 MG ECTAB PO SCH (08:38)
[2021-07-15] MEDS: GABAPENTIN 100 MG CAP PO SCH ×2 (08:38→20:38)
[2021-07-15] MEDS: SODIUM BICARBONATE 650 MG TAB PO SCH (08:38)
[2021-07-15] MEDS ORDERED: predniSONE 2.5 MG TAB PO SCH (09:00)
--- NOTE | 2021-07-15 10:17 | Electrocardiogram Report ---
Test Reason : Blood Pressure : / mmHG Vent. Rate : 099 BPM Atrial Rate : 099 BPM P-R Int : 168 ms QRS Dur : 106 ms QT Int : 360 ms P-R-T Axes : 068 -17 022 degrees QTc Int : 462 ms Normal sinus rhythm Possible Left atrial enlargement Incomplete right bundle branch block Inferior infarct (cited on or before 28-DEC-2020) Anterolateral infarct , age undetermined Abnormal ECG When compared with ECG of 17-MAY-2021 15:32, Incomplete right bundle branch block is now Present Anterior infarct is now Present Anterolateral infarct is now Present Questionable change in initial forces of Inferior leads Confirmed by Victor Hugo Lopez ([id number]) on 07/15/2021 10:17:38 AM Referred By: REFERRED SELF Confirmed By:Victor Hugo Lopez
[2021-07-15] MEDS ORDERED: LIDOCAINE/PRILOCAINE 2.5% EA CRM EXT PRN (12:52)
[2021-07-15] MEDS: CEFEPIME 500 MG in SYRINGE 0 ML IV SCH (17:09)
--- NOTE | 2021-07-15 17:40 | Hospitalist Progress Note ---
Date of Service July 15, 2021 Assessment & Plan (1) Sepsis: Plan: Immunocompromised patient Likely source:UTI CT ABD:Bladder wall thickening with adjacent fat stranding. There is also mild fat stranding surrounding the right lower quadrant renal transplant. Findings could represent a cystitis/pyelonephritis. Recommend correlate with urinalysis. Recently received antibiotic given by PCP as per patient Blood Culture:No growth to date Urine culture: Lactobacillus --Negative likely as she was treated outpatient as well Continue cefepime, Vanco >>>Titrate down to Cefepime Follow up cultures (2) UTI (urinary tract infection): Plan: Management as above Abnormal CT CT Showed Possible 2.9 cm soft tissue nodule located between the left hepatic lobe and stomach. This could represent exophytic liver tissue. However, follow- up nonemergent dedicated liver MRI is recommended for further evaluation. Further work up as outpatient (3) ESRD (end stage renal disease) on dialysis: Plan: Appreciate Nephrology Input Avoid NSAIDs or other nephrotoxins. (4) Hypoxia: Plan: chronic hypoxia, on 3LPM via nasal canula at home. (5) Failed kidney transplant: Plan: recently put onto HD, and has reapplied for repeat transplant. Patient was discontinued on Prograf 1 week ago as per patient (6) Hypothyroidism: Plan: continue levothyroxine (7) Chronic steroid use: Plan: continues on alternating doses of prednisone 5mg/2.5mg (8) DVT prophylaxis: Plan: heparin SQ Code Status Full Code Admission and Anticipated Discharge Date Admission Date: July 13, 2021 Subjective Patient is seen and examined at bedside States feeling tired Dysuria is improving Denies any chest pain, shortness of breath, dizziness, nausea, abdominal pain Review of Systems Review of Systems: All systems reviewed & are unremarkable except as noted in Subjective Physical Exam Physical Exam: Physical Exam: Vitals signs as noted above General Appearance:Obese, no apparent distress Head: normocephalic, Atraumatic Eyes: normal inspection, EOMI Neck: supple, Trachea midline Respiratory/Chest: Normal breath sounds, CTA, No accessory muscle use Cardiovascular: S1, S2, No murmur Abdomen/GI:Soft, Non tender, Bowel sounds present Extremities/Musculoskeletal:normal inspection, no edema Neurologic/Psych:AAOX3, grossly no focal neurological deficits Skin: normal color, warm Results & Data Results & Data ([facility]) Vital Signs (Past 12 Hours) Vital Signs Temp Pulse Pulse Resp BP Pulse Ox 07/15/21 15:30 36.7 C 79 96 H 115/69 96 07/15/21 10:34 36.6 C 81 19 108/67 96 07/15/21 07:46 36.7 C 88 18 99/65 L 94 07/15/21 07:43 66 Laboratory Results Short CBC 07/15/21 Range/Units 07:12 WBC 8.40 (4.8-10.8) K/uL Hgb 9.4 L (12.0-16.0) g/dL Hct 29.5 L (37-47) % Plt Count 238 (130-400) K/uL BMP 07/15/21 07:12 Sodium 134 L Potassium 3.6 Chloride 101 Carbon Dioxide 26 BUN 27 H Creatinine 6.48 H* D Glucose 101 H Calcium 9.2
[2021-07-16] MEDS ORDERED: PANTOprazole 40 MG TAB PO SCH (01:15)
[2021-07-16] MEDS: HEPARIN SOD 5,000 UNIT/0.5 ML VIAL SQ SCH ×2 (06:03→14:23)
[2021-07-16] MEDS: LEVOTHYROXINE SODIUM 50 MCG TABLET PO SCH (06:04)
[2021-07-16 08:23] LABS: BUN Creatinine Ratio 4.4 (10-20); Calcium 9.5 mg/dl (8.5-10.1); Creatinine Clr Calc Pharmacy 8.9 ml/min; Est GFR (African American) 6.5 ml/min; Est GFR (Non-African American) 5.6 ml/min; Potassium 3.7 mmol/L (3.5-5.1)
[2021-07-16] MEDS: GABAPENTIN 100 MG CAP PO SCH (08:23)
[2021-07-16] MEDS: ASPIRIN 81 MG ECTAB PO SCH (08:23)
[2021-07-16] MEDS: predniSONE 5 MG TAB PO SCH (08:23)
[2021-07-16] MEDS: SODIUM BICARBONATE 650 MG TAB PO SCH (08:23)
[2021-07-16] MEDS ORDERED: CEFEPIME 500 MG in SYRINGE 0 ML IV SCH ×2 (08:35→14:00)
[2021-07-16] MEDS ORDERED: SODIUM CHLORIDE 0.9% 1000ML 1,000 ML IV PRN (09:11)
[2021-07-16] MEDS ORDERED: HEPARIN SOD (PORCINE) 1000 UNIT/ML IV SCH (09:13)
[2021-07-16] MEDS ORDERED: EPOETIN ALFA 10,000 UNITS/ML VIAL IV SCH (09:13)
[2021-07-16] MEDS ORDERED: Nursing to Pharmacy Communication SCH ×2 (09:30→10:00)
[2021-07-16] MEDS: HEPARIN SOD (PORCINE) 1000 UNIT/ML IV SCH (10:11)
--- NOTE | 2021-07-16 10:28 | Dialysis Progress Note ---
Date of Service July 16, 2021 Assessment & Plan Admission and Anticipated Discharge Date Admission Date: July 13, 2021 Subjective S--seen in dialysis. doing fine. NO issues with BP or CVC PHYSICAL EXAMINATION: GENERAL: Obese white female who is not in any overt respiratory distress. She does use oxygen chronically. CHEST: Bilateral decreased breath sounds. CARDIOVASCULAR: S1 and S2, regular. ABDOMEN: Soft, nontender. EXTREMITIES: Show no edema. SKIN: Shows no rash. LABORATORY TEST: Reviewed. urine C/s--Lactobacillus ??. ASSESSMENT AND PLAN: A 65-year-old female with end-stage renal disease on ron hemodialysis Monday, Monday, Monday and recently started on dialysis after a failed kidney transplant. Now admitted with multitude of symptoms, which are somewhat hard to pinpoint. 1. End-stage renal disease, she is getting dialysis today. We will do 3 hours 30 minutes and take about 2 kilos of fluid off as tolerated by her blood pressure. On the chest x-ray, she does have some pulmonary congestion and given her compromised lung status, we do have to be as aggressive as possible in taking the fluid off. We will use dialysis catheter given significant bruising around her AV fistula site. 3.5 hours, 2K bath. We will also give some heparin and Procrit. 2. Status post failed kidney transplant. Confirmed not taking prograf or belatacept. 3. Possible infection. It is not exactly clear whether she has infection anywhere or not. Lactic acid was normal. Procalcitonin was normal, and she is not really acting like septic patient at this point. Given that she is a dialys is patient, not unusual to have low blood pressure. We will be following up on the blood and urine culture and she is currently on empiric antibiotics, which will be continued. Results & Data ([facility]) Vital Signs (Past 12 Hours) Vital Signs Temp Pulse Pulse Resp BP BP Pulse Ox 07/16/21 10:00 81 114/68 07/16/21 09:18 36.9 C 86 07/16/21 07:08 37.0 C 83 17 113/68 92 07/16/21 03:01 36.7 C 81 17 127/74 99 07/16/21 00:42 77 07/15/21 22:39 37.0 C 78 18 111/62 97
--- NOTE | 2021-07-16 13:44 | Hospitalist Progress Note ---
Date of Service July 16, 2021 Assessment & Plan (1) Sepsis: Plan: Immunocompromised patient Likely source:UTI CT ABD:Bladder wall thickening with adjacent fat stranding. There is also mild fat stranding surrounding the right lower quadrant renal transplant. Findings could represent a cystitis/pyelonephritis. Recommend correlate with urinalysis. Recently received antibiotic given by PCP as per patient Blood Culture:No growth to date Urine culture: Lactobacillus --Negative likely as she was treated outpatient as well Continue cefepime, Vanco >>>Titrate down to Cefepime--Will complete 3 day course today (2) UTI (urinary tract infection): Plan: Management as above Abnormal CT CT Showed Possible 2.9 cm soft tissue nodule located between the left hepatic lobe and stomach. This could represent exophytic liver tissue. However, follow- up nonemergent dedicated liver MRI is recommended for further evaluation. Further work up as outpatient (3) ESRD (end stage renal disease) on dialysis: Plan: Appreciate Nephrology Input Avoid NSAIDs or other nephrotoxins. (4) Hypoxia: Plan: chronic hypoxia, on 3LPM via nasal canula at home. (5) Failed kidney transplant: Plan: recently put onto HD, and has reapplied for repeat transplant. Patient was discontinued on Prograf 1 week ago as per patient (6) Hypothyroidism: Plan: continue levothyroxine (7) Chronic steroid use: Plan: continues on alternating doses of prednisone 5mg/2.5mg (8) DVT prophylaxis: Plan: heparin SQ Code Status Full Code Admission and Anticipated Discharge Date Admission Date: July 13, 2021 Subjective Patient is seen and examined at bedside Had dialysis today No new complaints Dysuria improved Denies any chest pain, shortness of breath, dizziness, nausea, abdominal pain Review of Systems Review of Systems: All systems reviewed & are unremarkable except as noted in Subjective Physical Exam Physical Exam: Physical Exam: Vitals signs as noted above General Appearance:Obese, no apparent distress Head: normocephalic, Atraumatic Eyes: normal inspection, EOMI Neck: supple, Trachea midline Respiratory/Chest: Normal breath sounds, CTA, No accessory muscle use Cardiovascular: S1, S2, No murmur Abdomen/GI:Soft, Non tender, Bowel sounds present Extremities/Musculoskeletal:normal inspection, no edema Neurologic/Psych:AAOX3, grossly no focal neurological deficits Skin: normal color, warm Results & Data Results & Data ([place]) Vital Signs (Past 12 Hours) Vital Signs Temp Pulse Pulse Resp BP BP Pulse Ox 07/16/21 13:16 37 C 83 131/75 07/16/21 12:30 83 119/68 07/16/21 12:00 83 140/69 07/16/21 11:30 86 106/64 07/16/21 11:00 85 113/62 07/16/21 10:30 79 118/65 07/16/21 10:00 81 114/68 07/16/21 09:18 36.9 C 86 07/16/21 08:00 75 07/16/21 07:08 37.0 C 83 17 113/68 92 07/16/21 03:01 36.7 C 81 17 127/74 99 Laboratory Results [facility] 07/16/21 07:25 Sodium 134 L Potassium 3.7 Chloride 101 Carbon Dioxide 23 BUN 31 H Creatinine 7.07 H* D Glucose 93 Calcium 9.5
--- NOTE | 2021-07-16 13:56 | Discharge Summary ---
Date of Service July 16, 2021 Admission HPI Per Admitting Provider 65 yo F renal transplant patient with poor renal function recently started on hemodialysis presents with hypotension and tachycardia, nausea and h/o diarrhea, requiring her recent dialysis session to be stopped early on Monday because she wasn't feeling well. She reports eating a cheeseburger and fries from [employer] today and states the nausea and diarrhea has now resolved. She did report feeling sweaty and was found to be hypotensive in the ER today when she was here with her who was a patient. She reports burning with urination for the past two days. She denies fevers, chills, abdominal or pelvic pain, chest pain, SOB. Denies back pain. Although she is on HD she still makes urine. She is a failed renal transplant who has reapplied for retransplant and is on chronic prednisone. Improved with IVF in the ER (750cc). Noted CXR with mild interstitial pulmonary edema. She is on chronic oxygen 3LPM at home via nasal canula. She reports a history of [place] but is not on CPAP and is awaiting a r epeat sleep study as outpatient. Admission Exam Per Admitting Provider Physical Exam Physical Exam: CONSTITUTIONAL: WNWD, vitals as above, generally well- appearing, NAD EYES: normal conjunctivae, no scleral icterus ENT: external ear and nose normal, MMM NECK: trachea midline RESPIRATORY: clear to auscultation bilaterally, no crackles, rales or wheezes, normal respiratory effort CARDIOVASCULAR: regular rate and rhythm, S1 and 2 heard without murmurs, gallop s or rubs, no JVD, no peripheral edema, +palpable thrill in LUE fistula. There is ecchymosis that is a deep purple in a band distribution around her L biceps. CHEST: HD catheter to anterior chest. GASTROINTESTINAL: soft, nontender, ND, no guarding MUSCULOSKELETAL: strength 5/5 throughout, head is normocephalic and atraumatic, neck supple, normal palpation of chest wall without tenderness SKIN: warm and dry NEUROLOGIC: CN 2-12 grossly intact, no sensory deficit, normal cognition, normal speech, no tremor, no gross focal deficits. PSYCHIATRIC: alert cooperative and oriented to person, place and time. Principal Diagnosis Urinary Tract Infection ESRD Discharge Data Allergies Allergy/AdvReac Type Severity Reaction Status Date / Time levofloxacin AdvReac Severe C-DIFF Verified 05/03/22 19:16 Consultations 07/13/21 20:38 ED Decision to Admit Stat 07/13/21 22:05 Consult Nephrology Routine Ordered Studies 07/13/21 18:39 CT abd pelvis wo con Stat Hospital Course (1) Sepsis: Immunocompromised patient Likely source:UTI CT ABD:Bladder wall thickening with adjacent fat stranding. There is also mild fat stranding surrounding the right lower quadrant renal transplant. Findings could represent a cystitis/pyelonephritis. Recommend correlate with urinalysis. Recently received antibiotic given by PCP as per patient Blood Culture:No growth to date Urine culture: Lactobacillus --Negative likely as she was treated outpatient as well Continue cefepime, Vanco >>>Titrate down to Cefepime--Will complete 3 day course today (2) UTI (urinary tract infection): Management as above Abnormal CT CT Showed Possible 2.9 cm soft tissue nodule located between the left hepatic lobe and stomach. This could represent exophytic liver tissue. However, follow- up nonemergent dedicated liver MRI is recommended for further evaluation. Further work up as outpatient (3) ESRD (end stage renal disease) on dialysis: Appreciate Nephrology Input Avoid NSAIDs or other nephrotoxins. (4) Hypoxia: chronic hypoxia, on 3LPM via nasal canula at home. (5) Failed kidney transplant: recently put onto HD, and has reapplied for repeat transplant. Patient was discontinued on Prograf 1 week ago as per patient (6) Hypothyroidism: continue levothyroxine (7) Chronic steroid use: continues on alternating doses of prednisone 5mg/2.5mg (8) DVT prophylaxis: heparin SQ Code Status Full Code Total Time Total Time Spent Total Time Spent (In Minutes): 45 minutes Discharge Plan Discharge Items Patient Disposition: Home - Self-Care Reason For Visit: HYPOTENSION Discharge Diagnosis: Urinary Tract Infection ESRD Condition on Discharge: Fair Activity: Per Instructions section Exercise/Sports: Gradually increase as tolerated Non-emergency contact: Primary Care Provider and Offal Separator Call non-emergency contact if: you have any medication questions, your symptoms worsen, your pain is concerning for you and you have a fever Follow-up/Referrals: Kenneth Butt MD [Primary Care Provider] - (Date & Time 07/20/2021 11:00 AM Provider Carri Roldan MD Department General Internal Medicine [facility] ) Meera Ann PA-C [Outside Practitioners] - (Date & Time 07/22/2021 1:00 PM Provider Meera Ann PA-C Department Endocrinology, [place] ) Diet: Dialysis Renal Addtl Attending Provider Instructions: Follow up with your primary care physician on 07/20/2021 11:00 AM Follow up with your Offal Separator for dialysis ---Your final blood cultures are pending at the time of discharge. Follow-up w ith your physician for results. Seek immediate medical attention if your symptoms reoccur or worsen Please take all medications as instructed on discharge list below. Please call if you have any questions or problems. You can reach a [facility] hospitalist on duty at [facility] 24 hours a day by calling [phone] Pending Studies at Discharge: Yes Studies:: Blood Culture Stand-Alone Forms: My [facility] Admissions, Smoking Cessation Medications and DC Order Prescriptions: Continued prednisone 5 mg Tablet See Rx Instructions .ROUTE .COMPLEX RF: 0 omeprazole 40 mg Capsule,Delayed Release(Dr/Ec) 40 mg PO QAM RF: 0 sodium bicarbonate 650 mg Tablet 650 mg PO QAM RF: 0 levothyroxine 50 mcg Tablet 50 mcg PO QAM RF: 0 aspirin 81 mg Tablet,Chewable 81 mg PO QAM RF: 0 gabapentin 100 mg Capsule 100 mg PO BID RF: 0 fluticasone propionate [Flonase Allergy Relief] 50 mcg/actuation [place],Suspension 2 spray INTRANASAL DAILY PRN (Reason: Allergy Symptoms) RF: 0 albuterol sulfate [Ventolin HFA] 90 mcg/actuation Hfa Aerosol Inhaler 2 puff inhalation Q4H PRN (Reason: dyspnea) Qty: 6.7 RF: 0 Anoro Ellipta 62.5-25 mcg/actuation blister with device 1 puff inhalation DAILY PRN (Reason: PER PT "IF NEEDED".) RF: 0 Discharge Orders: Discharge Order (Routine); Ordered 07/16/21 Ordered By: Albert Hays Admission Data Admit Date/Time: 07/13/21 21:08 Attending Provider: Albert Hays Admit Provider: Carrie Pratt Primary Care Provider: Kenneth Butt Other Providers: Carrie Pratt ; Tori Friedman
[2021-07-18 15:02] LABS: Hepatitis BE Antibody Nonreactive; Hepatitis BE Antigen Nonreactive
== END 2021-07-16 16:20 | disposition home or self-care (01) | DRG 871 ==
LOC: ED 17:25 → SUATTDRO 21:08 → 2S 21:08
DX: Z87.891 Personal history of nicotine dependence; J44.9 Chronic obstructive pulmonary disease, unspecified; R93.2 Abnormal findings on diagnostic imaging of liver and biliary tract; Z79.899 Other long term (current) drug therapy; D84.9 Immunodeficiency, unspecified; K21.9 Gastro-esophageal reflux disease without esophagitis; Z99.2 Dependence on renal dialysis; N39.0 Urinary tract infection, site not specified; E03.9 Hypothyroidism, unspecified; A41.9 Sepsis, unspecified organism; I12.0 Hypertensive chronic kidney disease with stage 5 chronic kidney disease or end stage renal disease; Y83.0 Surgical operation with transplant of whole organ as the cause of abnormal reaction of the patient, or of later complication, without mention of misadventure at the time of the procedure; Z79.890 Hormone replacement therapy; Z88.1 Allergy status to other antibiotic agents; G43.909 Migraine, unspecified, not intractable, without status migrainosus; Z79.52 Long term (current) use of systemic steroids; Z79.82 Long term (current) use of aspirin; N18.6 End stage renal disease; T86.12 Kidney transplant failure; R09.02 Hypoxemia

== ENCOUNTER 2022-07-21 12:04 | Inpatient (IN) ==
[2022-07-21] MEDS ORDERED: LORazepam 2 MG/1 ML VIAL IV STA (12:41)
[2022-07-21 12:59] LABS: Basophils # (auto) 0.06 K/uL (0-0.2); Basophils % (auto) 0.8 %; Eosinophils # (auto) 0.16 K/uL (0-0.50); Hematocrit (blood only) 34.5 % (37.0-47.0); Hemoglobin 11.6 g/dl (12.0-16.0); Immature Granulocytes # (auto) 0.04 K/uL (0.01-0.20); Immature Granulocytes % (auto) 0.5 %; Lymphocytes # (auto) 1.84 K/uL (1.2-3.4); Lymphocytes % (auto) 23.5 %; Mean Corpuscular Hemoglobin 30.7 pg (25.0-34.0); Mean Corpuscular Hgb Conc 33.6 g/dL (32.0-36.0); Mean Corpuscular Volume 91.3 fL (80.0-100.0); Mean Platelet Volume 8.5 fL (9.4-12.4); Monocytes # (auto) 1.14 K/uL (0.11-0.59); Monocytes % (auto) 14.5 %; Neutrophils % (auto) 58.7 %; Platelet Count 183 K/uL (130-400); RDW Coefficient of Variation 14.6 % (11.5-14.5); RDW Standard Deviation 48.9 fL (36.4-46.3); Red Blood Count 3.78 M/uL (4.20-5.40); White Blood Count 7.84 K/ul (4.8-10.8)
[2022-07-21 13:24] LABS: Albumin Globulin Ratio 1.5 (0.9-2); Albumin Level 4.3 gm/dl (3.4-5.0); BUN Creatinine Ratio 5.4 (10-20); Bilirubin,Total 0.7 mg/dl (0.2-1.0); Calcium 6.5 mg/dl (8.6-10.3); Est GFR (African American) 7.3 ml/min; Est GFR (Non-African American) 6.3 ml/min; Globulin 2.8 gm/dl (2.5-4.0); Magnesium 1.8 mg/dl (1.7-2.4); Potassium 6.1 mmol/L (3.5-5.1); Total Protein 7.1 gm/dl (6.0-8.3)
--- NOTE | 2022-07-21 13:44 | XRay Report ---
XR chest 1V portable HISTORY: 66 years-old Female weakness acute weakness COMPARISON: 03/08/2022 TECHNIQUE: AP view of the chest FINDINGS: Cardiac silhouette is enlarged. Unchanged positioning of the right IJ [id number]-[id number] catheter. No pneu mothorax, pleural effusion, airspace consolidation or pulmonary edema. Bones appear grossly intact. IMPRESSION: Cardiomegaly without acute process. ACT 112: Negative or not required by law. The above report was generated using voice recognition software. It may contain grammatical, syntax o r spelling errors. Electronically signed by: Siva Whitney M.D. 07/21/2022 1:43 PM
[2022-07-21 14:01] LABS: Thyroid Stimulating Hormone 50.415 uIu/ml (0.300-4.500)
[2022-07-21] MEDS ORDERED: CALCIUM GLUCONATE 1,000 MG/60 ML BAG IV STA (14:27)
[2022-07-21] MEDS ORDERED: NovoLIN-R INSULIN PER UNIT CHARGE IV STA (14:28)
[2022-07-21] MEDS ORDERED: DEXTROSE 50% 50 ML SYRINGE IV STA (14:28)
[2022-07-21 14:35] LABS: Adenovirus PCR Not Detected (NotDetected); Bordetella parapertussis PCR Not Detected (NotDetected); Bordetella pertussis PCR Not Detected (NotDetected); Chlamydia pneumoniae PCR Not Detected (NotDetected); Coronavirus 229E PCR Not Detected (NotDetected); Coronavirus CoV-2 (COVID19)PCR Not Detected (NotDetected); Coronavirus HKU1 PCR Not Detected (NotDetected); Coronavirus NL63 PCR Not Detected (NotDetected); Coronavirus OC43PCR Not Detected (NotDetected); Human Metapneumovirus PCR Not Detected (NotDetected); Influenza A PCR Not Detected (NotDetected); Influenza B PCR Not Detected (NotDetected); Mycoplasma pneumoniae PCR Not Detected (NotDetected); Parainfluenza Virus 1 PCR Not Detected (NotDetected); Parainfluenza Virus 2 PCR Not Detected (NotDetected); Parainfluenza Virus 3 PCR Not Detected (NotDetected); Parainfluenza Virus 4 PCR Not Detected (NotDetected); Respiratory Syncytial VirusPCR Not Detected (NotDetected); Rhinovirus/Enterovirus PCR Not Detected (NotDetected)
[2022-07-21 14:37] LABS: T4 Free Thyroxine 0.61 ng/dl (0.61-1.60)
--- NOTE | 2022-07-21 15:09 | History & Physical Report ---
Date of Service July 21, 2022 Assessment & Plan (1) Hypocalcemia: (2) Post-surgical hypothyroidism: (3) S/P thyroidectomy: (4) S/P parathyroidectomy: (5) ESRD (end stage renal disease) on dialysis: (6) HTN (hypertension): (7) Anemia in chronic kidney disease: Plan This is a 66-year-old female who has significant past medical history of chronic hypoxemic respiratory failure, COPD, HTN, pulmonary hypertension, hyperlipidemia, secondary renal hyperparathyroidism, Graves' disease, [place], CKD stage V on dialysis, kidney transplant failure, anemia of renal disease, history of VRE, history of thyroid cancer who presents to ED secondary to weakness and cramping x1 day. Symptomatic hypocalcemia in setting of recent thyroidectomy and 3.5 gland parathyroidectomy Admit to PCU Replete calcium with 11 g calcium gluconate and 1 L of normal saline infused over 50 cc/h Continue Tums and calcitriol Check vitamin D and 1, 25 dihydroxy Consult nephrology Calcium 6.5 in setting of normal albumin, PTH low at 3 Postsurgical hypothyroidism TSH 50, free T4 0.6 Patient had recent increase of levothyroxine to 100 mcg daily, she has not yet started this dose Continue levothyroxine, calcitriol If symptoms do not improve with improvement of calcium could consider further titration of levothyroxine She will need repeat TSH and T4 4 weeks End-stage renal disease on hemodialysis Monday in [place] Hyperkalemia hx of failed kidney transplant in 2017 Received treatment in ED with calcium gluconate, D5 and IV insulin Potassium has normalized Discussed with nephrology Nephrology recommends Lasix 100 mg IV x1, metolazone 50 mg oral x1 and 1 dose of Lokelma consult nephrology Anemia of renal disease H&H stable at 11.6 and 34.[address] Xavier, on Gleevec therapy but that is currently on hold HTN Continue metoprolol and amlodipine DVT prophylaxis: Heparin Full code Dispo: Admit to telemetry PCP: Axel Pt was seen and examined in collaboration with Dr. Pratt, please see addendum A total of 90 was spent coordinating, documenting, and providing care for this patient excluding time spent in the performance of separately billed services. This included personally viewing all current laboratories and imaging studies, medication reconciliation, outpatient chart review, and discussion with specialists. History of Present Illness Chief Complaint: Weakness and cramping x 1 day. Primary Care Provider: Jameel Reyna, This is a 66-year-old female who has significant past medical history of chronic hypoxemic respiratory failure, COPD, HTN, pulmonary hypertension, hyperlipidemia, secondary renal hyperparathyroidism, Graves' disease, [place], CKD stage V on dialysis, kidney transplant failure, anemia of renal disease, history of VRE, history of thyroid cancer who presents to ED secondary to weakness and cramping x1 day. Patient was on her way for a fistulogram today with Dr. Quintero when in route everything became, "tight." She complained of perioral paresthesias, her face felt swollen, her chest and legs felt tight and she further complained last evening having muscle cramping. She also complains of her hands cramping. She was concerned so she came to ED. Of significance patient recently underwent total thyroidectomy and parathyroidectomy a 3.5 gland excision on 06/28/22 as well as a thymus ectomy by [facility]. Thyroid surgery pathology was benign. There is a greater than 50% drop in PTH intraoperatively. She was recently seen by PCP who increased her levothyroxine to 100 mcg daily. She has not yet started this dose. She has also been taking 4 Tums 3 times a day because her calcium levels being low. She denies any recent illness, fever, chills, sweats, lightheadedness, dizziness, chest pain, shortness with, cough, URI symptoms, nausea, vomiting, abdominal pain, change in bowel or urinary habits. She still does make urine. She had hemodialysis yesterday. In ED patient was hemodynamically stable. Lab work notable for H&H 11.6 and 34.5, K6.1, BUN 35, creatinine 6.44, calcium 6.5, TSH 50.4, free T4.6, PTH low at 3.0. Her bio fire was negative and chest x-ray showed no acute cardiopulmonary disease. She states she was going for fistulogram today but it seems like her fistula is not always working. Allergies Allergy/AdvReac Type Severity Reaction Status Date / Time levofloxacin AdvReac Severe C-DIFF Verified 07/21/22 14:55 Home Medications Medication Instructions Recorded Confirmed Type aspirin 81 mg chewable tablet 81 mg PO QAM 04/23/18 07/21/22 History fluticasone propionate 50 1 spray intranasal DAILY PRN 04/23/18 07/21/22 History mcg/actuation nasal Allergy Symptoms spray,suspension (Flonase Allergy Relief) gabapentin 100 mg capsule 100 mg PO BID 04/23/18 07/21/22 History omeprazole 40 mg capsule,delayed 40 mg PO DAILYBB 04/23/18 07/21/22 History release imatinib 100 mg tablet 200 mg PO DAILY 03/08/22 07/21/22 History magnesium oxide 400 mg PO DAILY 03/08/22 07/21/22 History amlodipine 5 mg tablet 5 mg PO QAM 07/21/22 07/21/22 History calcitriol 0.5 mcg capsule 1 mcg PO AMHS 07/21/22 07/21/22 History calcium carbonate 200 mg calcium 800 mg PO TID 07/21/22 07/21/22 History (500 mg) chewable tablet (Tums) levothyroxine 100 mcg tablet 100 mcg PO DAILYBB 07/21/22 07/21/22 History metoprolol tartrate 25 mg tablet 37.5 mg PO BID 07/21/22 07/21/22 History ondansetron HCl 8 mg tablet 8 mg PO TID PRN PRIOR TO 07/21/22 07/21/22 History CHEMOTHERAPY MEDS prochlorperazine maleate 10 mg 10 mg PO Q6H PRN NAUSEA/VOMITING 07/21/2207/21 History tablet (Compazine) sevelamer carbonate 800 mg tablet 800 mg PO TIDM 07/21/22 07/21/22 History (Renvela) triamcinolone acetonide 0.1 % 1 applic topical BID PRN Skin 07/21/22 07/21/22 History topical cream Irritation vitamin B complex and vitamin C 1 cap PO DAILY 07/21/22 07/21/22 History no.20-folic acid 1 mg capsule ([place] Caps) Past Med/Surg History Medical History Abnormal stress test 01/2021 (reversible anterior and basal lateral defect consistent with ischemia vs soft tissue attenuation artifact) per [facility] cardio records, plan for medical management and consideration for DSE at 03/2021 appt; final determination per [facility] cardio is recommendation for diagnostic cardiac catheterization not yet scheduled by patient; now advised risk > benefit per [facility] cardio Anemia in chronic kidney disease AV fistula left upper arm (functioning), also one to left wrist, but does not function properly Chronic back pain COPD (chronic obstructive pulmonary disease) stable per pt, no longer using supplemental oxygen-states home pulse ox re adings are consistently 97% or greater-pt states provider is aware COVID-19 01/29/22-not hospitalized-symptoms fully resolved ESRD (end stage renal disease) on dialysis MWF at [facility] in [place] 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 At least 1 of the peritoneal dialysis catheters had to be removed because of peritonitis..." HLD (hyperlipidemia) HTN (hypertension) controlled, stable per pt Hypothyroidism supplementation d/c by PCP d/t low TSH with elevated free T4 and T3, patient symptomatic-has not yet started advised beta darrell by PCP, + thyroid stimulating immunoglobulin and abnormal thyroid biopsy 12/02; pt was lost to f/u with [facility] endocrinology, now scheduled 05/2022 Limb alert care status left arm Migraine Neck pain h/o UE paresthesias; pt states neck pain and upper extremity abnormal symptoms fully resolved Palpitations on occasion-denies associated dizziness or lightheadedness-follows with [facility] cardio and PCP, notable current thyroid dysfunction; [facility] cardio advised 4 week or prn f/u-pt d/c initial beta darrell rx by cardio, did not initiate recommend alternate beta darrell from PCP yet Port-A-Cath in place Pulmonary hypertension Secondary hyperparathyroidism Sleep apnea severe per [facility] records, no device currently > has apt soon to see about getting back on device Thyroid nodule abnormal biopsy 12/02 with concerning results per [facility] endo, + thyroid stimulating immunoglobulin; pt lost to f/u; now has [facility] endocrinology appointment 05/2022 Surgical History H/O cystoscopy History of appendectomy History of bilateral tubal ligation History of section x1 History of cholecystectomy History of colonoscopy History of esophagogastroduodenoscopy (EGD) History of kidney transplant 08/28/[place] [facility] [place]) functions at only 10%--d/t ESRD > follows with Dr. Roldan History of laparoscopy History of surgery hx perm cath insertion & removal History of tonsillectomy and adenoidectomy History of tooth extraction History of wisdom tooth extraction Family History Grandmother (Paternal) Family history of diabetes mellitus Grandmother (Maternal) Family history of diabetes mellitus Family hx of colon cancer Mother Family hx of colon cancer Other No family history of adverse response to anesthesia Social History Smoking Status: Former smoker Tobacco Type: Cigarettes Second Hand Exposure: No; Do You Dip or Chew Tobacco: No; Hx Alcohol Use: No Hx Substance Use: No Preferred Language: Greenlandic Communication Ability: Effective Automatic Door Mechanic Required: No Beliefs That Will Affect Care: None marital status: Current Living Situation: Spouse Current Living Situation Comment: Lives with and daughter and her family How many Children do You have: 1 Other Information That Helps Us Care for You: No Feels Safe at Home: Yes Safety Concerns: Feels Safe At This Time Assistive Devices: Glasses Review of Systems Review of Systems: All systems reviewed & are unremarkable except as noted in HPI & below Physical Exam Physical Exam: Constitutional: WD/WN, vitals as above, NAD, sitting up in bed, pleasant, conversing easily Head: Normocephalic, Atraumatic Eyes: PERRL, conjunctivae normal, anicteric sclerae ENMT: external ear and nose normal, oropharynx normal Neck: trachea midline, no thyromegaly normal visual inspection Respiratory: normal respiratory effort, lungs clear to auscultation, no wheeze, rales, rhonchi. Normal insp/exp effort, no accessory muscle use Cardiovascular: RRR, no murmur, no edema Vessels: no JVD or carotid bruit Chest: normal inspection of chest Abdomen: normal bowel sounds, soft, nontender, no hepatosplenomegaly Musculoskeletal: no cyanosis or clubbing, extremities motor strength 5/5 Skin: no rashes, warm and dry normal turgor , LUE AV Fistula Neurologic: PERRL, EOMI, accommodation nl, no face palsy, no dysarthria CN's II-XI intact bilaterally and moves all extremities Psychiatric: A+Ox3, euthymic affect Lymphatic: no cervical or axillary lymphadenopathy : deferred Results & Data Results & Data Vital Signs (Past 12 Hours) Vital Signs Temp Pulse Pulse Resp BP BP Pulse Ox 07/21/22 14:49 82 18 137/78 96 07/21/22 13:31 87 18 128/88 100 07/21/22 12:44 76 07/21/22 11:59 07/21/22 11:59 36.5 C 86 18 118/66 100 07/21/22 11:59 36.5 C 89 18 118/66 100 O2 Del Method 07/21/22 14:49 07/21/22 13:31 07/21/22 12:44 07/21/22 11:59 Room Air 07/21/22 11:59 07/21/22 11:59 Room Air Diagnostic Findings Chest X-Ray 07/21/22 12:40 XR chest 1V portable HISTORY: 66 years-old Female weakness acute weakness COMPARISON: 03/08/2022 TECHNIQUE: AP view of the chest FINDINGS: Cardiac silhouette is enlarged. Unchanged positioning of the right IJ [id number] catheter. No pneumothorax, pleural effusion, airspace consolidation or pulmonary edema. Bones appear grossly intact. IMPRESSION: Cardiomegaly without acute process. ACT 112: Negative or not required by law. The above report was generated using voice recognition software. It may contain grammatical, syntax or spelling errors. Electronically signed by: Siva Whitney M.D. 07/21/2022 1:43 PM Medications Administered Medication List Discontinued Medications Dextrose (Dextrose 50% 50 Ml Syringe) 50 ml IV NOW STA Stop: 07/21/22 14:29 Last Admin: 07/21/22 14:39 Dose: 50 ml Documented By: MARCUS Calcium Gluconate () 1,000 mg in 60 mls @ 240 mls/hr IV NOW STA Stop: 07/21/22 14:41 Last Admin: 07/21/22 14:39 Dose: 240 mls/hr Documented By: MARCUS Insulin Human Regular (Novolin-R Insulin Per Unit Charge) 10 units IV NOW STA Stop: 07/21/22 14:29 Last Admin: 07/21/22 14:40 Dose: 10 units Documented By: MARCUS Co-signed By: STU Lorazepam (Lorazepam 2 Mg/1 Ml Vial) 0.5 mg IV NOW STA Stop: 07/21/22 12:42 Last Admin: 07/21/22 13:23 Dose: 0.5 mg Documented By: MARCUS ECG Rate (beats per minute): 64 Rhythm: normal sinus Additional Comments: pulm disease pattern COVID-19 Results Results COVID-19 Adm Lab Results: RBC 3.78 M/uL (4.20-5.40) L 07/21/22 WBC 7.84 K/ul (4.8-10.8) 07/21/22 Hgb 11.6 g/dl (12.0-16.0) L 07/21/22 Hct 34.5 % (37.0-47.0) L 07/21/22 Plt Count 183 K/uL (130-400) 07/21/22 Neutrophils (%) (Auto) 58.7 % 07/21/22 Lymphocytes (%) (Auto) 23.5 % 07/21/22 Monocytes # (Auto) 1.14 K/uL (0.11-0.59) H 07/21/22 Eosinophils # (Auto) 0.16 K/uL (0-0.50) 07/21/22 Immature Granulocyte % (Auto) 0.5 % 07/21/22 Neutrophils # (Auto) 4.60 K/uL (1.40-6.50) 07/21/22 Lymphocytes # (Auto) 1.84 K/uL (1.2-3.4) 07/21/22 Monocytes # (Auto) 1.14 K/uL (0.11-0.59) H 07/21/22 Eosinophils # (Auto) 0.16 K/uL (0-0.50) 07/21/22 Basophils # (Auto) 0.06 K/uL (0-0.2) 07/21/22 Immature Granulocyte # (Auto) 0.04 K/uL (0.01-0.20) 3 Na 134 mmol/L (136-145) L 07/21/22 K 5.1 mmol/L (3.5-5.1) 07/21/22 Cl 89 mmol/L (98-107) L 07/21/22 CO2 30 mmol/L (21-32) 07/21/22 Anion Gap 15 (3-11) H 07/21/22 BUN 35 mg/dl (6-23) H 07/21/22 Creatinine 6.44 mg/dl (0.6-1.2) H* 07/21/22 BUN/Creatinine Ratio 5.4 (10-20) L 07/21/22 Glucose Level 105 mg/dl (70-99(Fasting)) H 07/21/22 Ca 6.5 mg/dl (8.6-10.3) L 07/21/22 Phosphorus Level 3.6 mg/dl (2.5-4.9) 07/21/22 Total Bilirubin 0.7 mg/dl (0.2-1.0) 07/21/22 AST/SGOT 18 U/L (13-39) 07/21/22 ALT/SGPT 9 U/L (7-52) 07/21/22 Alkaline Phosphatase 200 U/L (34-104) H 07/21/22 Total Protein 7.1 gm/dl (6.0-8.3) 07/21/22 Albumin 4.3 gm/dl (3.4-5.0) 07/21/22 Globulin 2.8 gm/dl (2.5-4.0) 07/21/22 Albumin/Globulin Ratio 1.5 (0.9-2) 07/21/22 Adenovirus (PCR) Not Detected (NotDetected) 07/21/22 B. parapertussis DNA (PCR) Not Detected (NotDetected) 07/11 04/04 B. pertussis DNA (PCR) Not Detected (NotDetected) 07/21/22 C. pneumoniae DNA (PCR) Not Detected (NotDetected) 3 Coronavirus Type OC43 (PCR) Not Detected (NotDetected) 02/02 Coronavirus Type HKU1 (PCR) Not Detected (NotDetected) 02/02 Coronavirus Type 229E (PCR) Not Detected (NotDetected) 02/02 COVID-19 PCR Not Detected (NotDetected) 07/21/22 Coronavirus Type NL63 (PCR) Not Detected (NotDetected) 02/02 Human Metapneumovirus (PCR) Not Detected (NotDetected) 02/02 Influenza Virus Type A (PCR) Not Detected (NotDetected) Influenza Virus Type B (PCR) Not Detected (NotDetected) M. pneumoniae (PCR) Not Detected (NotDetected) 07/21/22 Parainfluenza Type 1 (PCR) Not Detected (NotDetected) 07/11 04/04 Parainfluenza Type 2 (PCR) Not Detected (NotDetected) 07/11 04/04 Parainfluenza Type 3 (PCR) Not Detected (NotDetected) 07/11 04/04 Parainfluenza Type 4 (PCR) Not Detected (NotDetected) 07/11 04/04 RSV (PCR) Not Detected (NotDetected) 07/21/22 Enterovirus/Rhinovirus (PCR) Not Detected (NotDetected) Chest X-Ray 07/21/22 Code Status & VTE Plan Code Status FULL CODE Supervising Physician Co-Signing Physician Notes I have seen and examined the patient and have discussed the case with the provider above. I agree with the assessment and plan as stated. The patient is a 66-year-old female status post thyroidectomy on 06/28/2022 presenting with symptomatic hypocalcemia. She reports cramping weakness and perioral numbness over the past week worsening in the last 24 hours. After receiving the initial bolus of calcium in the ER she now feels so much better. She otherwise has no pain in her chest trouble breathing or other issues. She is on regular scheduled dialysis. We did discuss her elevated TSH and the timing of her Synthroid dose with respect to her omeprazole as well as her Tums supplement. She should be these by 4 hours at a minimum. On physical exam she is an obese female in no acute distress. She is oriented. There is no gross focal neurologic deficits. Cardiac exam reveals S1-S2 heard with no murmurs gallops or rubs. Lungs are clear to auscultation throughout. Abdomen is soft nontender nondistended. There is a fistula present in the left upper extremity. Work-up includes a CBC with a normal white blood cell count, mild anemia with H&H 11.6/34.5 which is at her baseline or better than her baseline. BNP reveals a potassium of 6.1 after treatment was 5.1, anion gap 15, BUN 35, creatinine 6.44. Calcium 6.5 with an albumin of 4.3. 25-hydroxy vitamin D is 32 with a 1,. TSH is 50.4 and PTH is 3. Chest x-ray revealed no acute process 25 dihydroxy vitamin D pending. 1. Symptomatic hypocalcemia status post thyroidectomy 2. End-stage renal disease on hemodialysis 3. Morbid obesity 4. Hyperkalemia 5. Hypertension 66-year-old female presenting with symptomatic hypocalcemia, improved since receiving 1 g of calcium in the ER. She also received dextrose and insulin with improvement of potassium to 5.1. Per nephrology will continue with furosemide 100 metolazone 5 mg and an additional dose of potassium binder. We will continue with calcium infusion overnight plus Tums and encourage patient to separate levothyroxine administration from Tums, PPI and/or any oral iron supplements by at least 4 hours. She will need a templated plan on how to take her medicines prior to discharge. Repeat calcium in a.m. and continue replacement as needed. Continue hemodialysis per routine regimen. DO Terence
[2022-07-21 16:03] LABS: Potassium 5.1 mmol/L (3.5-5.1)
[2022-07-21] MEDS ORDERED: FLUTICASONE PROPIONATE NA SPR 16 GM BTL PRN (16:37)
[2022-07-21] MEDS ORDERED: ACETAMINOPHEN 325 MG TAB PO PRN (16:37)
[2022-07-21] MEDS ORDERED: POLYETHYLENE (MIRALAX) 17 GM PACK PO PRN (16:37)
[2022-07-21] MEDS ORDERED: ONDANSETRON INJ 2 MG/ML 2 ML VIAL IV PRN (16:37)
[2022-07-21] MEDS ORDERED: FUROSEMIDE 10 MG/ML 10 ML VIAL IV ONE (16:37)
[2022-07-21] MEDS ORDERED: SODIUM ZIRCONIUM CYCLOSILICATE 10 GM PACKET PO ONE ×2 (16:37→23:00)
[2022-07-21] MEDS ORDERED: metOLazone 5 MG TABLET PO ONE (16:37)
[2022-07-21 16:57] LABS: Phosphorus 3.6 mg/dl (2.5-4.9)
[2022-07-21] MEDS ORDERED: CALCIUM GLUCONATE 10% 11,000 MG in SODIUM CHLORIDE 0.9% 1000ML 890 ML IV SCH (17:00)
[2022-07-21] MEDS: SEVELAMER HCL 800 MG TABLET PO SCH (17:23)
[2022-07-21] MEDS: GABAPENTIN 100 MG CAP PO SCH (19:45)
[2022-07-21] MEDS: CALCIUM CARBONATE 500 MG CHEWABLE TAB PO SCH (19:46)
[2022-07-21] MEDS: METOPROLOL TARTRATE 25 MG TAB PO SCH (19:46)
[2022-07-21] MEDS: CALCITRIOL 0.25 MCG CAPSULE PO SCH (19:47)
[2022-07-21] MEDS: HEPARIN SOD 5,000 UNIT/0.5 ML VIAL SQ SCH (19:48)
[2022-07-21] MEDS ORDERED: CALCIUM CARBONATE 500 MG CHEWABLE TAB PO SCH (21:00)
[2022-07-22 04:56] LABS: Basophils # (auto) 0.06 K/uL (0-0.2); Basophils % (auto) 0.9 %; Eosinophils # (auto) 0.23 K/uL (0-0.50); Eosinophils % (auto) 3.5 %; Hematocrit (blood only) 32.4 % (37.0-47.0); Hemoglobin 10.7 g/dl (12.0-16.0); Immature Granulocytes # (auto) 0.03 K/uL (0.01-0.20); Immature Granulocytes % (auto) 0.5 %; Lymphocytes # (auto) 1.61 K/uL (1.2-3.4); Lymphocytes % (auto) 24.5 %; Mean Corpuscular Hemoglobin 31.2 pg (25.0-34.0); Mean Corpuscular Volume 94.5 fL (80.0-100.0); Mean Platelet Volume 8.4 fL (9.4-12.4); Monocytes # (auto) 0.75 K/uL (0.11-0.59); Monocytes % (auto) 11.4 %; Neutrophils # (auto) 3.88 K/uL (1.40-6.50); Neutrophils % (auto) 59.2 %; Platelet Count 156 K/uL (130-400); RDW Coefficient of Variation 14.6 % (11.5-14.5); RDW Standard Deviation 50.4 fL (36.4-46.3); Red Blood Count 3.43 M/uL (4.20-5.40); White Blood Count 6.56 K/ul (4.8-10.8)
[2022-07-22 05:15] LABS: Albumin Globulin Ratio 1.6 (0.9-2); Albumin Level 3.8 gm/dl (3.4-5.0); BUN Creatinine Ratio 6.4 (10-20); Bilirubin,Total 0.5 mg/dl (0.2-1.0); Creatinine Clr Calc Pharmacy 8.4 ml/min; Est GFR (African American) 5.9 ml/min; Est GFR (Non-African American) 5.1 ml/min; Globulin 2.4 gm/dl (2.5-4.0); Phosphorus 4.6 mg/dl (2.5-4.9); Potassium 6.2 mmol/L (3.5-5.1); Total Protein 6.2 gm/dl (6.0-8.3)
[2022-07-22] MEDS ORDERED: STAT IV STA (05:21)
[2022-07-22] MEDS ORDERED: CALCIUM GLUCONATE 10% 1,000 MG in DEXTROSE 5% 50 ML IV ONE (05:21)
[2022-07-22] MEDS ORDERED: SODIUM BICARB 8.4% INJ 50 MEQ/50 ML SYR IV STA (05:21)
[2022-07-22] MEDS ORDERED: DEXTROSE 50% 50 ML SYRINGE IV ONE (05:21)
[2022-07-22] MEDS ORDERED: INSULIN HUMAN REGULAR PER UNIT 5 UNITS in SYRINGE 4.95 ML IV STA (05:24)
[2022-07-22] MEDS: HEPARIN SOD 5,000 UNIT/0.5 ML VIAL SQ SCH ×3 (05:40→19:52)
[2022-07-22] MEDS: LEVOTHYROXINE SODIUM 100 MCG TABLET PO SCH (05:59)
[2022-07-22] MEDS ORDERED: PANTOprazole 40 MG TAB PO SCH (06:30)
--- NOTE | 2022-07-22 08:32 | Hospitalist Progress Note ---
Date of Service July 22, 2022 Assessment & Plan (1) Hypocalcemia: (2) Post-surgical hypothyroidism: (3) S/P thyroidectomy: (4) S/P parathyroidectomy: (5) ESRD (end stage renal disease) on dialysis: (6) HTN (hypertension): (7) Anemia in chronic kidney disease: Plan This is a 66-year-old female who has significant past medical history of chronic hypoxemic respiratory failure, COPD, HTN, pulmonary hypertension, hyperlipidemia, secondary renal hyperparathyroidism, Graves' disease, [place], CKD stage V on dialysis, kidney transplant failure, anemia of renal disease, history of VRE, history of thyroid cancer who presents to ED secondary to weakness and cramping x1 day. Symptomatic hypocalcemia in setting of recent thyroidectomy and 3.5 gland parathyroidectomy Admit to PCU Replete calcium with 11 g calcium gluconate and 1 L of normal saline infused over 50 cc/h Continue Tums and calcitriol Check vitamin D and 1, 25 dihydroxy - pending On admission - Calcium 6.5 in setting of normal albumin, PTH low at 3 Nephrology consulted Postsurgical hypothyroidism TSH 50, free T4 0.6 Patient had recent increase of levothyroxine to 100 mcg daily, she has not yet started this dose Continue levothyroxine, calcitriol If symptoms do not improve with improvement of calcium could consider further titration of levothyroxine She will need repeat TSH and T4 4 weeks End-stage renal disease on hemodialysis Monday in [place] Hyperkalemia hx of failed kidney transplant in 2017 Received treatment in ED with calcium gluconate, D5 and IV insulin Potassium has normalized, Discussed with nephrology on admission -recommended Lasix 100 mg IV x1, metolazone 50 mg oral x1 and 1 dose of Lokelma / Currently pt is on HD Nephrology consulted Anemia of renal disease H&H stable at 11.6 and 34.[address] Xavier, on Gleevec therapy but that is currently on hold HTN Continue metoprolol and amlodipine DVT prophylaxis: Heparin Full code Dispo: PCU PCP: Dr. Reyna Admission and Anticipated Discharge Date Admission Date: July 21, 2022 Subjective Pt seen in follow up of hypocalcemia, recent thyroidectomy, history of end-stage renal disease, failed renal transplant Patient seen on hemodialysis She reported substernal chest tightness that lasted for about a minute. ECG was obtained, and reviewed at the bedside. Currently she feels well, back to normal. Yesterday prior to admission she reports that her body felt tight, including her extremities and chest, numbness around her mouth. She denies having these symptoms now. She is on her phone, playing games while she is talking to me, appearing comfortable. Breathing comfortably on room air. Nephrology consulted for hypocalcemia, and dialysis management. Review of Systems Review of Systems: All systems reviewed & are unremarkable except as noted in Subjective Physical Exam Physical Exam: Constitutional:obese F laying in bed,on HD, in NAD Head: Normocephalic, Atraumatic Eyes: PERRL, EOMI, conjunctivae normal, anicteric sclerae ENMT: external ear and nose normal, oropharynx normal Respiratory: normal respiratory effort, lungs clear to auscultation, no wheeze, rales, rhonchi. Normal insp/exp effort, no accessory muscle use Cardiovascular: RRR, no murmur, no edema Chest: normal inspection of chest Abdomen: normal bowel sounds, soft, nontender Musculoskeletal:moves extremities Skin: no rashes, warm and dry, LUE AV Fistula Neurologic: PERRL, EOMI, no face palsy, moves all extremities Psychiatric: A+Ox3, euthymic affect Results & Data Results & Data Vital Signs (Past 12 Hours) Vital Signs Temp Pulse Pulse Resp BP Pulse Ox O2 Del Method 07/22/22 07:08 36.6 C 81 18 143/76 H 93 Room Air 07/22/22 02:42 36.5 C 74 16 150/85 H 95 Room Air 07/22/22 02:22 73 07/21/22 23:19 36.5 C 74 16 141/78 H 94 Room Air Laboratory Results 07/22/22 07/22/22 07/21/22 Range/Units 04:47 04:47 18:12 WBC 6.56 (4.8-10.8) K/ul RBC 3.43 L (4.20-5.40) M/uL Hgb 10.7 L (12.0-16.0) g/dl Hct 32.4 L (37.0-47.0) % MCV 94.5 (80.0-100.0) fL MCH 31.2 (25.0-34.0) pg MCHC 33.0 (32.0-36.0) g/dL RDW Std Deviation 50.4 H (36.4-46.3) fL RDW Coeff of [place] 14.6 H (11.5-14.5) % Plt Count 156 (130-400) K/uL MPV 8.4 L (9.4-12.4) fL Immature Gran % (Auto) 0.5 % Neut % (Auto) 59.2 % Lymph % (Auto) 24.5 % [place] % (Auto) 11.4 % Eos % (Auto) 3.5 % Baso % (Auto) 0.9 % Neut # (Auto) 3.88 (1.40-6.50) K/uL Lymph # (Auto) 1.61 (1.2-3.4) K/uL [place] # (Auto) 0.75 H (0.11-0.59) K/uL Eos # (Auto) 0.23 (0-0.50) K/uL Baso # (Auto) 0.06 (0-0.2) K/uL Immature Gran # (Auto) 0.03 (0.01-0.20) K/uL Sodium 134 L (136-145) mmol/L Potassium 6.2 H* D (3.5-5.1) mmol/L Chloride 92 L (98-107) mmol/L Carbon Dioxide 28 (21-32) mmol/L Anion Gap 14 H (3-11) BUN 49 H (6-23) mg/dl Creatinine 7.69 H* D (0.6-1.2) mg/dl Est Cr Clr Drug Dosing 8.4 ml/min Est GFR ( Amer) 5.9 ml/min Est GFR (Non-Af Amer) 5.1 ml/min BUN/Creatinine Ratio 6.4 L (10-20) Glucose 80 (70-99(Fasting)) mg/dl Lactate (0.4-2.0) mmol/L Calcium 7.0 L (8.6-10.3) mg/dl Phosphorus 4.6 D (2.5-4.9) mg/dl Magnesium 2.0 (1.7-2.4) mg/dl Total Bilirubin 0.5 (0.2-1.0) mg/dl AST 16 (13-39) U/L ALT 8 (7-52) U/L Alkaline Phosphatase 171 H (34-104) U/L Troponin I High Sens (0-14) pg/ml Total Protein 6.2 (6.0-8.3) gm/dl Albumin 3.8 (3.4-5.0) gm/dl Globulin 2.4 L (2.5-4.0) gm/dl Albumin/Globulin Ratio 1.6 (0.9-2) 25-OH Vitamin D Total (30-100) ng/ml Vit D 1,25-Dihyd Total 1,25 Dihydroxy Vit D2 1,25 Dihydroxy Vit D3 TSH (0.300-4.500) uIu/ml Free T4 (0.61-1.60) ng/dl PTH Intact (12.0-88.0) pg/ml Nasal Screen MRSA (PCR) Negative (Negative) Adenovirus (PCR) (NotDetected) B. pertussis DNA (PCR) (NotDetected) B.parapertussis DNA PCR (NotDetected) C. pneumoniae DNA (PCR) (NotDetected) Coronavirus OC43 (PCR) (NotDetected) Coronavirus HKU1 (PCR) (NotDetected) Coronavirus 229E (PCR) (NotDetected) SARS-CoV-2 (PCR) (NotDetected) Coronavirus NL63 (PCR) (NotDetected) Human Metapneumovir PCR (NotDetected) Influenza Type A (PCR) (NotDetected) Influenza Type B (PCR) (NotDetected) M. pneumoniae (PCR) (NotDetected) Parainfluenza 1 (PCR) (NotDetected) Parainfluenza 2 (PCR) (NotDetected) Parainfluenza 3 (PCR) (NotDetected) Parainfluenza 4 (PCR) (NotDetected) RSV (PCR) (NotDetected) Entero/Rhino (PCR) (NotDetected) 07/21/22 07/21/22 07/21/22 Range/Units 17:45 15:51 15:30 WBC (4.8-10.8) K/ul RBC (4.20-5.40) M/uL Hgb (12.0-16.0) g/dl Hct (37.0-47.0) % MCV (80.0-100.0) fL MCH (25.0-34.0) pg MCHC (32.0-36.0) g/dL RDW Std Deviation (36.4-46.3) fL RDW Coeff of [place] (11.5-14.5) % Plt Count (130-400) K/uL MPV (9.4-12.4) fL Immature Gran % (Auto) % Neut % (Auto) % Lymph % (Auto) % [place] % (Auto) % Eos % (Auto) % Baso % (Auto) % Neut # (Auto) (1.40-6.50) K/uL Lymph # (Auto) (1.2-3.4) K/uL [place] # (Auto) (0.11-0.59) K/uL Eos # (Auto) (0-0.50) K/uL Baso # (Auto) (0-0.2) K/uL Immature Gran # (Auto) (0.01-0.20) K/uL Sodium (136-145) mmol/L Potassium 5.1 (3.5-5.1) mmol/L Chloride (98-107) mmol/L Carbon Dioxide (21-32) mmol/L Anion Gap (3-11) BUN (6-23) mg/dl Creatinine (0.6-1.2) mg/dl Est Cr Clr Drug Dosing ml/min Est GFR ( Amer) ml/min Est GFR (Non-Af Amer) ml/min BUN/Creatinine Ratio (10-20) Glucose (70-99(Fasting)) mg/dl Lactate 1.5 (0.4-2.0) mmol/L Calcium (8.6-10.3) mg/dl Phosphorus 3.6 (2.5-4.9) mg/dl Magnesium (1.7-2.4) mg/dl Total Bilirubin (0.2-1.0) mg/dl AST (13-39) U/L ALT (7-52) U/L Alkaline Phosphatase (34-104) U/L Troponin I High Sens (0-14) pg/ml Total Protein (6.0-8.3) gm/dl Albumin (3.4-5.0) gm/dl Globulin (2.5-4.0) gm/dl Albumin/Globulin Ratio (0.9-2) 25-OH Vitamin D Total (30-100) ng/ml Vit D 1,25-Dihyd Total Pending 1,25 Dihydroxy Vit D2 Pending 1,25 Dihydroxy Vit D3 Pending TSH (0.300-4.500) uIu/ml Free T4 (0.61-1.60) ng/dl PTH Intact (12.0-88.0) pg/ml Nasal Screen MRSA (PCR) (Negative) Adenovirus (PCR) (NotDetected) B. pertussis DNA (PCR) (NotDetected) B.parapertussis DNA PCR (NotDetected) C. pneumoniae DNA (PCR) (NotDetected) Coronavirus OC43 (PCR) (NotDetected) Coronavirus HKU1 (PCR) (NotDetected) Coronavirus 229E (PCR) (NotDetected) SARS-CoV-2 (PCR) (NotDetected) Coronavirus NL63 (PCR) (NotDetected) Human Metapneumovir PCR (NotDetected) Influenza Type A (PCR) (NotDetected) Influenza Type B (PCR) (NotDetected) M. pneumoniae (PCR) (NotDetected) Parainfluenza 1 (PCR) (NotDetected) Parainfluenza 2 (PCR) (NotDetected) Parainfluenza 3 (PCR) (NotDetected) Parainfluenza 4 (PCR) (NotDetected) RSV (PCR) (NotDetected) Entero/Rhino (PCR) (NotDetected) 07/21/22 07/21/22 07/21/22 Range/Units 15:30 12:13 12:10 WBC (4.8-10.8) K/ul RBC (4.20-5.40) M/uL Hgb (12.0-16.0) g/dl Hct (37.0-47.0) % MCV (80.0-100.0) fL MCH (25.0-34.0) pg MCHC (32.0-36.0) g/dL RDW Std Deviation (36.4-46.3) fL RDW Coeff of [place] (11.5-14.5) % Plt Count (130-400) K/uL MPV (9.4-12.4) fL Immature Gran % (Auto) % Neut % (Auto) % Lymph % (Auto) % [place] % (Auto) % Eos % (Auto) % Baso % (Auto) % Neut # (Auto) (1.40-6.50) K/uL Lymph # (Auto) (1.2-3.4) K/uL [place] # (Auto) (0.11-0.59) K/uL Eos # (Auto) (0-0.50) K/uL Baso # (Auto) (0-0.2) K/uL Immature Gran # (Auto) (0.01-0.20) K/uL Sodium (136-145) mmol/L Potassium (3.5-5.1) mmol/L Chloride (98-107) mmol/L Carbon Dioxide (21-32) mmol/L Anion Gap (3-11) BUN (6-23) mg/dl Creatinine (0.6-1.2) mg/dl Est Cr Clr Drug Dosing ml/min Est GFR ( Amer) ml/min Est GFR (Non-Af Amer) ml/min BUN/Creatinine Ratio (10-20) Glucose (70-99(Fasting)) mg/dl Lactate 2.9 H* (0.4-2.0) mmol/L Calcium (8.6-10.3) mg/dl Phosphorus (2.5-4.9) mg/dl Magnesium (1.7-2.4) mg/dl Total Bilirubin (0.2-1.0) mg/dl AST (13-39) U/L ALT (7-52) U/L Alkaline Phosphatase (34-104) U/L Troponin I High Sens (0-14) pg/ml Total Protein (6.0-8.3) gm/dl Albumin (3.4-5.0) gm/dl Globulin (2.5-4.0) gm/dl Albumin/Globulin Ratio (0.9-2) 25-OH Vitamin D Total 31.8 (30-100) ng/ml Vit D 1,25-Dihyd Total 1,25 Dihydroxy Vit D2 1,25 Dihydroxy Vit D3 TSH (0.300-4.500) uIu/ml Free T4 (0.61-1.60) ng/dl PTH Intact (12.0-88.0) pg/ml Nasal Screen MRSA (PCR) (Negative) Adenovirus (PCR) Not Detected (NotDetected) B. pertussis DNA (PCR) Not Detected (NotDetected) B.parapertussis DNA PCR Not Detected (NotDetected) C. pneumoniae DNA (PCR) Not Detected (NotDetected) Coronavirus OC43 (PCR) Not Detected (NotDetected) Coronavirus HKU1 (PCR) Not Detected (NotDetected) Coronavirus 229E (PCR) Not Detected (NotDetected) SARS-CoV-2 (PCR) Not Detected (NotDetected) Coronavirus NL63 (PCR) Not Detected (NotDetected) Human Metapneumovir PCR Not Detected (NotDetected) Influenza Type A (PCR) Not Detected (NotDetected) Influenza Type B (PCR) Not Detected (NotDetected) M. pneumoniae (PCR) Not Detected (NotDetected) Parainfluenza 1 (PCR) Not Detected (NotDetected) Parainfluenza 2 (PCR) Not Detected (NotDetected) Parainfluenza 3 (PCR) Not Detected (NotDetected) Parainfluenza 4 (PCR) Not Detected (NotDetected) RSV (PCR) Not Detected (NotDetected) Entero/Rhino (PCR) Not Detected (NotDetected) 07/21/22 07/21/22 07/21/22 Range/Units 12:10 12:10 12:10 WBC (4.8-10.8) K/ul RBC (4.20-5.40) M/uL Hgb (12.0-16.0) g/dl Hct (37.0-47.0) % MCV (80.0-100.0) fL MCH (25.0-34.0) pg MCHC (32.0-36.0) g/dL RDW Std Deviation (36.4-46.3) fL RDW Coeff of [place] (11.5-14.5) % Plt Count (130-400) K/uL MPV (9.4-12.4) fL Immature Gran % (Auto) % Neut % (Auto) % Lymph % (Auto) % [place] % (Auto) % Eos % (Auto) % Baso % (Auto) % Neut # (Auto) (1.40-6.50) K/uL Lymph # (Auto) (1.2-3.4) K/uL [place] # (Auto) (0.11-0.59) K/uL Eos # (Auto) (0-0.50) K/uL Baso # (Auto) (0-0.2) K/uL Immature Gran # (Auto) (0.01-0.20) K/uL Sodium 134 L (136-145) mmol/L Potassium 6.1 H* (3.5-5.1) mmol/L Chloride 89 L (98-107) mmol/L Carbon Dioxide 30 (21-32) mmol/L Anion Gap 15 H (3-11) BUN 35 H (6-23) mg/dl Creatinine 6.44 H* (0.6-1.2) mg/dl Est Cr Clr Drug Dosing 10.0 ml/min Est GFR ( Amer) 7.3 ml/min Est GFR (Non-Af Amer) 6.3 ml/min BUN/Creatinine Ratio 5.4 L (10-20) Glucose 105 H (70-99(Fasting)) mg/dl Lactate (0.4-2.0) mmol/L Calcium 6.5 L (8.6-10.3) mg/dl Phosphorus (2.5-4.9) mg/dl Magnesium 1.8 (1.7-2.4) mg/dl Total Bilirubin 0.7 (0.2-1.0) mg/dl AST 18 (13-39) U/L ALT 9 (7-52) U/L Alkaline Phosphatase 200 H (34-104) U/L Troponin I High Sens 6.0 (0-14) pg/ml Total Protein 7.1 (6.0-8.3) gm/dl Albumin 4.3 (3.4-5.0) gm/dl Globulin 2.8 (2.5-4.0) gm/dl Albumin/Globulin Ratio 1.5 (0.9-2) 25-OH Vitamin D Total (30-100) ng/ml Vit D 1,25-Dihyd Total 1,25 Dihydroxy Vit D2 1,25 Dihydroxy Vit D3 TSH 50.415 H (0.300-4.500) uIu/ml Free T4 0.61 (0.61-1.60) ng/dl PTH Intact 3.0 L (12.0-88.0) pg/ml Nasal Screen MRSA (PCR) (Negative) Adenovirus (PCR) (NotDetected) B. pertussis DNA (PCR) (NotDetected) B.parapertussis DNA PCR (NotDetected) C. pneumoniae DNA (PCR) (NotDetected) Coronavirus OC43 (PCR) (NotDetected) Coronavirus HKU1 (PCR) (NotDetected) Coronavirus 229E (PCR) (NotDetected) SARS-CoV-2 (PCR) (NotDetected) Coronavirus NL63 (PCR) (NotDetected) Human Metapneumovir PCR (NotDetected) Influenza Type A (PCR) (NotDetected) Influenza Type B (PCR) (NotDetected) M. pneumoniae (PCR) (NotDetected) Parainfluenza 1 (PCR) (NotDetected) Parainfluenza 2 (PCR) (NotDetected) Parainfluenza 3 (PCR) (NotDetected) Parainfluenza 4 (PCR) (NotDetected) RSV (PCR) (NotDetected) Entero/Rhino (PCR) (NotDetected) 07/21/22 Range/Units 12:10 WBC 7.84 (4.8-10.8) K/ul RBC 3.78 L (4.20-5.40) M/uL Hgb 11.6 L (12.0-16.0) g/dl Hct 34.5 L (37.0-47.0) % MCV 91.3 (80.0-100.0) fL MCH 30.7 (25.0-34.0) pg MCHC 33.6 (32.0-36.0) g/dL RDW Std Deviation 48.9 H (36.4-46.3) fL RDW Coeff of [place] 14.6 H (11.5-14.5) % Plt Count 183 (130-400) K/uL MPV 8.5 L (9.4-12.4) fL Immature Gran % (Auto) 0.5 % Neut % (Auto) 58.7 % Lymph % (Auto) 23.5 % [place] % (Auto) 14.5 % Eos % (Auto) 2.0 % Baso % (Auto) 0.8 % Neut # (Auto) 4.60 (1.40-6.50) K/uL Lymph # (Auto) 1.84 (1.2-3.4) K/uL [place] # (Auto) 1.14 H (0.11-0.59) K/uL Eos # (Auto) 0.16 (0-0.50) K/uL Baso # (Auto) 0.06 (0-0.2) K/uL Immature Gran # (Auto) 0.04 (0.01-0.20) K/uL Sodium (136-145) mmol/L Potassium (3.5-5.1) mmol/L Chloride (98-107) mmol/L Carbon Dioxide (21-32) mmol/L Anion Gap (3-11) BUN (6-23) mg/dl Creatinine (0.6-1.2) mg/dl Est Cr Clr Drug Dosing ml/min Est GFR ( Amer) ml/min Est GFR (Non-Af Amer) ml/min BUN/Creatinine Ratio (10-20) Glucose (70-99(Fasting)) mg/dl Lactate (0.4-2.0) mmol/L Calcium (8.6-10.3) mg/dl Phosphorus (2.5-4.9) mg/dl Magnesium (1.7-2.4) mg/dl Total Bilirubin (0.2-1.0) mg/dl AST (13-39) U/L ALT (7-52) U/L Alkaline Phosphatase (34-104) U/L Troponin I High Sens (0-14) pg/ml Total Protein (6.0-8.3) gm/dl Albumin (3.4-5.0) gm/dl Globulin (2.5-4.0) gm/dl Albumin/Globulin Ratio (0.9-2) 25-OH Vitamin D Total (30-100) ng/ml Vit D 1,25-Dihyd Total 1,25 Dihydroxy Vit D2 1,25 Dihydroxy Vit D3 TSH (0.300-4.500) uIu/ml Free T4 (0.61-1.60) ng/dl PTH Intact (12.0-88.0) pg/ml Nasal Screen MRSA (PCR) (Negative) Adenovirus (PCR) (NotDetected) B. pertussis DNA (PCR) (NotDetected) B.parapertussis DNA PCR (NotDetected) C. pneumoniae DNA (PCR) (NotDetected) Coronavirus OC43 (PCR) (NotDetected) Coronavirus HKU1 (PCR) (NotDetected) Coronavirus 229E (PCR) (NotDetected) SARS-CoV-2 (PCR) (NotDetected) Coronavirus NL63 (PCR) (NotDetected) Human Metapneumovir PCR (NotDetected) Influenza Type A (PCR) (NotDetected) Influenza Type B (PCR) (NotDetected) M. pneumoniae (PCR) (NotDetected) Parainfluenza 1 (PCR) (NotDetected) Parainfluenza 2 (PCR) (NotDetected) Parainfluenza 3 (PCR) (NotDetected) Parainfluenza 4 (PCR) (NotDetected) RSV (PCR) (NotDetected) Entero/Rhino (PCR) (NotDetected) Medications Administered Current Inpatient Medications Acetaminophen (Acetaminophen 325 Mg Tab) 650 mg PO Q4H PRN PRN Reason: Pain or Fever Stop: 08/20/22 16:36 Amlodipine Besylate (Amlodipine Besylate 5 Mg Tab) 5 mg PO QAM VU Stop: 08/21/22 08:59 Aspirin (Aspirin 81 Mg Chew) 81 mg PO QAM VU Stop: 08/21/22 08:59 Calcitriol (Calcitriol 0.25 Mcg Capsule) 1 mcg PO AMHS VU Stop: 08/20/22 20:59 Last Admin: 07/21/22 19:47 Dose: 1 mcg Calcium Carbonate (Calcium Carbonate 500 Mg Chewable Tab) 500 mg PO TID @1100,1400,2100 VU Stop: 08/20/22 20:59 Last Admin: 07/21/22 19:46 Dose: 500 mg Fluticasone Propionate (Fluticasone Propionate Na Spr 16 Gm Btl) 1 sprays NA DAILY PRN PRN Reason: Allergy Symptoms Stop: 08/20/22 16:36 Gabapentin (Gabapentin 100 Mg Cap) 100 mg PO BID VU Stop: 08/20/22 20:59 Last Admin: 07/21/22 19:45 Dose: 100 mg Heparin Sodium (Porcine) (Heparin Sod 5,000 Unit/0.5 Ml Vial) 5,000 units SQ Q8 VU Stop: 08/20/22 21:59 Last Admin: 07/22/22 05:40 Dose: 5,000 units Calcium Gluconate 11,000 mg/ (Sodium Chloride) 1,000 mls @ 50 mls/hr IV .Q20H VU Stop: 07/22/22 12:59 Last Admin: 07/21/22 17:21 Dose: 50 mls/hr Levothyroxine Sodium (Levothyroxine Sodium 100 Mcg Tablet) 100 mcg PO DAILYBB [facility] Stop: 08/21/22 06:29 Last Admin: 07/22/22 05:59 Dose: 100 mcg Magnesium Oxide (Magnesium Oxide 400 Mg Tab) 400 mg PO DAILY VU Stop: 08/21/22 08:59 Metoprolol Tartrate (Metoprolol Tartrate 25 Mg Tab) 37.5 mg PO BID VU Stop: 08/20/22 20:59 Last Admin: 07/21/22 19:46 Dose: 37.5 mg Ondansetron HCl (Ondansetron Inj 2 Mg/Ml 2 Ml Vial) 4 mg IV Q6H PRN PRN Reason: Nausea Stop: 08/20/22 16:36 Pantoprazole Sodium (Pantoprazole 40 Mg Tab) 40 mg PO DAILY@1100 [facility] Stop: 08/21/22 06:29 Polyethylene Glycol (Polyethylene (Miralax) 17 Gm Pack) 17 gm PO DAILY PRN PRN Reason: Constipation Stop: 08/20/22 16:36 Sevelamer HCl (Sevelamer Hcl 800 Mg Tablet) 800 mg PO TIDM VU Stop: 08/20/22 16:59 Last Admin: 07/21/22 17:23 Dose: 800 mg Vitamin B Complex/Folic Acid (Nephrocaps) 1 cap PO DAILY VU Stop: 08/21/22 08:59
--- NOTE | 2022-07-22 11:49 | Consultation Report ---
NEPHROLOGY CONSULTATION NOTE DATE OF SERVICE: 07/22/2022. REASON FOR CONSULTATION: Dialysis patient for dialysis management while inpatient. HISTORY OF PRESENT ILLNESS: The patient is a 66-year-old female with ESRD, on hemodialysis Monday, Monday, Monday at the [facility] in [place]. She was on her way for a routine outpatient fistulogram yesterday with Dr. Quintero. However, while in the road, she felt chest tightness, weakness and felt her legs as well as her face felt tight and difficult. She also started having some muscle cramping. Because of that, she went to the Emergency Department instead and did not have the fistulogram done. The fistulogram was ordered as an outpatient for elevated venous pressure triggered by vascular system. Of significance, the patient recently underwent total thyroidectomy and parathyroidectomy with a 3.5 gland excision on 06/28/2022 as well as a thymusectomy by [facility] ENT surgery. Since the surgery, the patient is on massive doses of calcium supplement as well as calcitriol, but even then, her calcium yesterday was low at 6.5. She has received IV as well as oral calcium since then and this morning is 7.0. Her PTH is almost nonexistent as expected. She is currently getting dialysis. We had absolutely no issues with the needle cannulation and have completely normal venous pressure. She had a full dialysis on Monday, but even then, she had elevated potassium of 6.2 yesterday. After that, we gave her medical management for hyperkalemia and potassium repeat was done and was normal at 5.1. PAST MEDICAL AND SURGICAL HISTORY: Includes, ESRD on chronic hemodialysis Monday, Monday, Monday; failed kidney transplant 2017, gastrointestinal stromal tumor, GERD, history of peritoneal dialysis, hypertension, hyperlipidemia, hypothyroidism, kidney transplant, tonsillectomy, adenoidectomy, tooth extraction, wisdom tooth extraction, appendicectomy, bilateral tubal ligation, , cholecystectomy, chronic hypoxemic respiratory failure, COPD, pulmonary hypertension, hyperlipidemia, Graves' disease, obstructive sleep apnea, hyperparathyroidism. SOCIAL HISTORY: The patient is a former smoker. She is and lives with her spouse and daughter. No alcohol. No smoking. REVIEW OF SYSTEMS: Other than what is listed in the HPI. All systems reviewed and negative. FAMILY HISTORY: Negative for renal disease or dialysis. PHYSICAL EXAMINATION: GENERAL: A middle-aged white female who is not in any overt respiratory distress. She is awake, alert, oriented x3, and she is comfortably playing with her phone. VITAL SIGNS: Blood pressure is 143/76, pulse rate 81, temperature 36.6, 93% on room air. HEENT: Mucous membranes are moist. NECK: Supple. No jugular venous distention. CHEST: Bilaterally clear to auscultation. CARDIOVASCULAR: S1 and S2, regular. ABDOMEN: Soft, nontender. EXTREMITIES: Show trace edema. LABORATORY TEST: Blood work from this morning shows a hemoglobin of 10.7, platelet count 156. Sodium 134, potassium 6.2, chloride 92, BUN 49, creatinine 7.69, calcium is up to 7.0, phosphorus 4.6, albumin 3.8. Chest x-ray shows cardiomegaly without any acute process. ASSESSMENT AND PLAN: A 66-year-old female with end-stage renal disease, on hemodialysis Monday, Monday, Monday, presented with multiple vague complaints, which could be related with hypocalcemia. I have been consulted for dialysis management. 1. End-stage renal disease, she is getting dialysis today without any problem. She was supposed to have outpatient fistulogram done yesterday, which was done for abnormal vasc alert test with elevated venous pressure. However, there is absolutely no problem at this point and we will defer the fistulogram for outpatient management as per his outpatient storage management consultant. It is concerning that yesterday, her potassium was high, even though she had a pretty uncomplicated dialysis on Monday. This morning was also elevated at 6.2 and hopefully after 4 hours of dialysis on a 2k bath, we should be fine. Continue daily labs at this point. 2. Hypocalcemia. The patient recently had 3.5 gland parathyroidectomy at [facility]. Since then, she has been followed by ENT/endocrine and is on a very large dose of calcium supplement, but even then, her calcium is running low and it is quite possible that her symptoms of muscle cramp and chest tightness and leg tightness were related with hypocalcemia. For the time being, she is getting both IV and oral calcium. Continue daily BMP as well as magnesium and phosphorus. We need to increase the dose of her oral calcium supplementation. Thank you very much for the consult. Job ID: [id number] [facility]
[2022-07-22] MEDS: SEVELAMER HCL 800 MG TABLET PO SCH ×3 (14:31→17:06)
[2022-07-22] MEDS: METOPROLOL TARTRATE 25 MG TAB PO SCH ×2 (14:33→19:51)
[2022-07-22] MEDS: NEPHROCAPS PO SCH (14:33)
[2022-07-22] MEDS: amLODIPine BESYLATE 5 MG TAB PO SCH (14:33)
[2022-07-22] MEDS: GABAPENTIN 100 MG CAP PO SCH ×2 (14:33→19:51)
[2022-07-22] MEDS: PANTOprazole 40 MG TAB PO SCH (14:34)
[2022-07-22] MEDS: ASPIRIN 81 MG CHEW PO SCH (14:34)
[2022-07-22] MEDS: MAGNESIUM OXIDE 400 MG TAB PO SCH (14:34)
[2022-07-22] MEDS: CALCITRIOL 0.25 MCG CAPSULE PO SCH ×2 (14:34→19:49)
[2022-07-22] MEDS: CALCIUM CARBONATE 500 MG CHEWABLE TAB PO SCH ×4 (14:35→19:50)
[2022-07-22 16:03] LABS: BUN Creatinine Ratio 4.2 (10-20); Calcium 7.8 mg/dl (8.6-10.3); Est GFR (African American) 14.8 ml/min; Est GFR (Non-African American) 12.8 ml/min; Potassium 4.2 mmol/L (3.5-5.1)
--- NOTE | 2022-07-22 22:17 | Electrocardiogram Report ---
Test Reason : Blood Pressure : / mmHG Vent. Rate : 084 BPM Atrial Rate : 084 BPM P-R Int : 174 ms QRS Dur : 118 ms QT Int : 456 ms P-R-T Axes : -51 000 038 degrees QTc Int : 537 ms Poor data quality, interpretation may be adversely affected Sinus rhythm Prolonged QT Poor R wave progression, consider anterior MO vs. lead placement vs. LVH Nonspecific T wave abnormality Abnormal ECG When compared with ECG of 08-MAR-2022 13:34, QRS voltage has decreased QT has lengthened Confirmed by Demetrio Sanchez ([id number]) on 07/22/2022 10:16:25 PM Referred By: REFERRED SELF Confirmed By:Demetrio Sanchez
--- NOTE | 2022-07-22 22:28 | Electrocardiogram Report ---
Test Reason : Blood Pressure : / mmHG Vent. Rate : 083 BPM Atrial Rate : 083 BPM P-R Int : 176 ms QRS Dur : 112 ms QT Int : 432 ms P-R-T Axes : 000 000 230 degrees QTc Int : 509 ms Sinus rhythm Nonspecific T wave abnormality Prolonged QT Poor R wave progression, consider anterior PR vs. lead placement vs. LVH Abnormal ECG When compared with ECG of 21-JUL-2022 12:11, No significant change Confirmed by Demetrio Sanchez ([id number]) on 07/22/2022 10:28:24 PM Referred By: REFERRED SELF Confirmed By:Demetrio Sanchez
[2022-07-23 00:23] LABS: BUN Creatinine Ratio 5.6 (10-20); Calcium 7.9 mg/dl (8.6-10.3); Creatinine Clr Calc Pharmacy 12.9 ml/min; Est GFR (African American) 9.8 ml/min; Est GFR (Non-African American) 8.5 ml/min; Potassium 4.8 mmol/L (3.5-5.1)
[2022-07-23] MEDS: HEPARIN SOD 5,000 UNIT/0.5 ML VIAL SQ SCH ×3 (05:37→20:18)
[2022-07-23] MEDS: LEVOTHYROXINE SODIUM 100 MCG TABLET PO SCH (05:38)
[2022-07-23 06:27] LABS: Basophils # (auto) 0.07 K/uL (0-0.2); Basophils % (auto) 1.1 %; Eosinophils # (auto) 0.28 K/uL (0-0.50); Eosinophils % (auto) 4.5 %; Hematocrit (blood only) 32.9 % (37.0-47.0); Hemoglobin 10.8 g/dl (12.0-16.0); Immature Granulocytes # (auto) 0.03 K/uL (0.01-0.20); Immature Granulocytes % (auto) 0.5 %; Lymphocytes # (auto) 1.69 K/uL (1.2-3.4); Lymphocytes % (auto) 27.1 %; Mean Corpuscular Hemoglobin 30.9 pg (25.0-34.0); Mean Corpuscular Hgb Conc 32.8 g/dL (32.0-36.0); Mean Platelet Volume 8.5 fL (9.4-12.4); Monocytes % (auto) 12.8 %; Neutrophils # (auto) 3.36 K/uL (1.40-6.50); Platelet Count 147 K/uL (130-400); RDW Coefficient of Variation 14.4 % (11.5-14.5); RDW Standard Deviation 48.9 fL (36.4-46.3); White Blood Count 6.23 K/ul (4.8-10.8)
--- NOTE | 2022-07-23 06:29 | Electrocardiogram Report ---
Test Reason : Blood Pressure : / mmHG Vent. Rate : 076 BPM Atrial Rate : 076 BPM P-R Int : 192 ms QRS Dur : 112 ms QT Int : 448 ms P-R-T Axes : 050 -49 060 degrees QTc Int : 503 ms Normal sinus rhythm Low voltage QRS Left anterior fascicular block Inferior infarct , age undetermined Prolonged QT Abnormal ECG When compared with ECG of 21-JUL-2022 15:39, No significant change Confirmed by Demetrio Sanchez ([id number]) on 07/23/2022 6:28:48 AM Referred By: REFERRED SELF Confirmed By:Demetrio Sanchez
[2022-07-23 06:41] LABS: Albumin Globulin Ratio 1.6 (0.9-2); BUN Creatinine Ratio 5.5 (10-20); Bilirubin,Total 0.6 mg/dl (0.2-1.0); Calcium 6.9 mg/dl (8.6-10.3); Creatinine Clr Calc Pharmacy 11.6 ml/min; Est GFR (African American) 8.9 ml/min; Est GFR (Non-African American) 7.7 ml/min; Globulin 2.5 gm/dl (2.5-4.0); Phosphorus 3.8 mg/dl (2.5-4.9); Potassium 5.1 mmol/L (3.5-5.1); Total Protein 6.5 gm/dl (6.0-8.3)
--- NOTE | 2022-07-23 06:47 | Electrocardiogram Report ---
Test Reason : Blood Pressure : / mmHG Vent. 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
[2022-07-23] MEDS: METOPROLOL TARTRATE 25 MG TAB PO SCH ×2 (07:34→20:17)
[2022-07-23] MEDS: ASPIRIN 81 MG CHEW PO SCH (07:35)
[2022-07-23] MEDS: SEVELAMER HCL 800 MG TABLET PO SCH ×3 (07:36→16:48)
[2022-07-23] MEDS: MAGNESIUM OXIDE 400 MG TAB PO SCH (07:36)
[2022-07-23] MEDS: CALCITRIOL 0.25 MCG CAPSULE PO SCH ×3 (07:36→20:18)
[2022-07-23] MEDS: GABAPENTIN 100 MG CAP PO SCH ×2 (07:36→20:16)
[2022-07-23] MEDS: amLODIPine BESYLATE 5 MG TAB PO SCH (07:36)
[2022-07-23] MEDS: NEPHROCAPS PO SCH (07:36)
--- NOTE | 2022-07-23 08:22 | Emergency Department Note ---
Impression & Plan Hypocalcemia, S/P parathyroidectomy, ESRD (end stage renal disease) on dialysis, Hyperkalemia ED Provider Note CHIEF COMPLAINT: legs cramping, weakness HISTORY OF PRESENT ILLNESS: This 66 yo female patient with past medical history of end-stage renal disease on hemodialysis, obesity, hypertension, hyperlipidemia, anemia, hypothyroidism, hyperparathyroidism s/p recent parathyroidectomy presents to the emergency department with complaints of bilateral lower extremity cramping and weakness. Last dialysis was yesterday. No CP, SOB, fevers. REVIEW OF SYSTEMS: A review of systems was performed with positives and pertinent negatives listed in the history of present illness. 10 systems were reviewed and are otherwise negative. ALLERGIES: see below MEDICATIONS: see below PMH: see below SOCIAL HISTORY: see below DDx: electrolyte abnl, dehydration, DVT, sepsis, medication effect, among others. PHYSICAL EXAM: Vital signs reviewed. General: Chronically ill-appearing 66 yo female, in no significant distress. HEENT: No scleral icterus, PERRLA, neck supple. MMM Cardiovascular: Regular rate and rhythm, no extra sounds. Pulmonary: Clear to auscultation bilaterally, normal work of breathing. Abdomen: Soft, obese, nontender, nondistended, positive bowel sounds. Musculoskeletal: Atraumatic, no peripheral edema. Neurologic: Patient awake alert and oriented x 3, speech is clear Skin: Warm, dry, no rash EMERGENCY DEPARTMENT COURSE/MDM: Patient was evaluated and appeared to be in no significant distress. IV access was obtained and laboratory work was drawn. Patient was placed on the panel monitor. External medical records were reviewed including [facility] [place]. Patient's potassium was noted to be 6.1 with a calcium of 6.5. Parathyroid hormone is noted to be low. She was given 1 g of IV calcium gluconate. She was also given IV D50 and 10 units of IV regular insulin for hyperkalemia. Patient's case was discussed with the hospitalist service to evaluate patient for admission and further management. Patient was made aware of plan and agreed. MONITORING: An order for cardiac monitoring was placed and the patient is noted to be in a NSR at 84 beats per minute. RADIOLOGY: to my interpretation reveals no acute process. otherwise defer to radiology. EKG: to my interpretation reveals a poor quality baseline, normal sinus rhythm at 84 bpm, poor R wave progression, prolonged QT interval 537. DISPOSITION: Admit I have personally spent 30 minutes of critical care time in the direct management of this patient. This was a life/limb threatening event. This 30 minutes is in excess of all separately billable procedures. Past Med/Surg History Medical History Abnormal stress test 01/2021 (reversible anterior and basal lateral defect consistent with ischemia vs soft tissue attenuation artifact) per [facility] cardio records, plan for medical management and consideration for DSE at 03/2021 appt; final determination per [facility] cardio is recommendation for diagnostic cardiac catheterization not yet scheduled by patient; now advised risk > benefit per [facility] cardio Anemia in chronic kidney disease AV fistula left upper arm (functioning), also one to left wrist, but does not function properly Chronic back pain COPD (chronic obstructive pulmonary disease) stable per pt, no longer using supplemental oxygen-states home pulse ox readings are consistently 97% or greater-pt states provider is aware COVID-19 01/29/22-not hospitalized-symptoms fully resolved ESRD (end stage renal disease) on dialysis MWF at [facility] in [place] 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 At least 1 of the peritoneal dialysis catheters had to be removed because of peritonit is..." HLD (hyperlipidemia) HTN (hypertension) controlled, stable per pt Hypocalcemia Hypothyroidism supplementation d/c by PCP d/t low TSH with elevated free T4 and T3, patient symptomatic-has not yet started advised beta darrell by PCP, + thyroid stimulating immunoglobulin and abnormal thyroid biopsy 12/02; pt was lost to f/u with [facility] endocrinology, now scheduled 05/2022 Limb alert care status left arm Migraine Neck pain h/o UE paresthesias; pt states neck pain and upper extremity abnormal s ymptoms fully resolved Palpitations on occasion-denies associated dizziness or lightheadedness-follows with [facility] cardio and PCP, notable current thyroid dysfunction; [facility] cardio advised 4 week or prn f/u-pt d/c initial beta darrell rx by cardio, did not initiate recommend alternate beta darrell from PCP yet Port-A-Cath in place Pulmonary hypertension Secondary hyperparathyroidism Sleep apnea severe per [facility] records, no device currently > has apt soon to see about getting back on device Thyroid nodule abnormal biopsy 12/02 with concerning results per S endo, + thyroid stimulating immunoglobulin; pt lost to f/u; now has [facility] endocrinology appointment 05/2022 Surgical History H/O cystoscopy History of appendectomy History of bilateral tubal ligation History of section x1 History of cholecystectomy History of colonoscopy History of esophagogastroduodenoscopy (EGD) History of kidney transplant 08/28/2016 [place] [facility] [place] side) functions at only 10%--d/t ESRD > follows with Dr. Roldan History of laparoscopy History of surgery hx perm cath insertion & removal History of tonsillectomy and adenoidectomy History of tooth extraction History of wisdom tooth extraction Family History Grandmother (Paternal) Family history of diabetes mellitus Grandmother (Maternal) Family history of diabetes mellitus Family hx of colon cancer Mother Family hx of colon cancer Other No family history of adverse response to anesthesia Social History Smoking Status: Former smoker Tobacco Type: Cigarettes Second Hand Exposure: No; Do You Dip or Chew Tobacco: No; Hx Alcohol Use: No Hx Substance Use: No Preferred Language: Occitan Communication Ability: Effective Work Station Support Specialist Required: No Beliefs That Will Affect Care: None marital status: Current Living Situation: Spouse Current Living Situation Comment: Lives with and daughter and her [facility] How many Children do You have: 1 Other Information That Helps Us Care for You: No Feels Safe at Home: Yes Safety Concerns: Feels Safe At This Time Assistive Devices: None Allergies Allergies Allergy/AdvReac Type Severity Reaction Status Date / Time levofloxacin AdvReac Severe C-DIFF Verified 07/21/22 14:55 Home Meds Home Medications Medication Instructions Recorded Confirmed aspirin 81 mg chewable tablet 81 mg PO QAM 04/23/18 07/21/22 fluticasone propionate 50 1 spray intranasal DAILY PRN 04/23/18 07/21/22 mcg/actuation nasal Allergy Symptoms spray,suspension (Flonase Allergy Relief) gabapentin 100 mg capsule 100 mg PO BID 04/23/18 07/21/22 omeprazole 40 mg capsule,delayed 40 mg PO DAILYBB 04/23/18 07/21/22 release imatinib 100 mg tablet 200 mg PO DAILY 03/08/22 07/21/22 magnesium oxide 400 mg PO DAILY 03/08/22 07/21/22 amlodipine 5 mg tablet 5 mg PO QAM 07/21/22 07/21/22 calcitriol 0.5 mcg capsule 1 mcg PO AMHS 07/21/22 07/21/22 calcium carbonate 200 mg calcium 800 mg PO TID 07/21/22 07/21/22 (500 mg) chewable tablet (Tums) levothyroxine 100 mcg tablet 100 mcg PO DAILYBB 07/21/22 07/21/22 metoprolol tartrate 25 mg tablet 37.5 mg PO BID 07/21/22 07/21/22 ondansetron HCl 8 mg tablet 8 mg PO TID PRN PRIOR TO 07/21/22 07/21/22 CHEMOTHERAPY MEDS prochlorperazine maleate 10 mg 10 mg PO Q6H PRN NAUSEA/VOMITING 07/21/22 07/21/22 tablet (Compazine) sevelamer carbonate 800 mg tablet 800 mg PO TIDM 07/21/22 07/21/22 (Renvela) triamcinolone acetonide 0.1 % 1 applic topical BID PRN Skin 07/21/22 07/21/22 topical cream Irritation vitamin B complex and vitamin C 1 cap PO DAILY 07/21/22 07/21/22 no.20-folic acid 1 mg capsule (Whitley Caps) Results & Data (ED) Home Medications Current Medication List: was personally reviewed by me Laboratory Data Attestation: I reviewed the patient's lab results. 07/23/22 06:05 07/23/22 06:05 Lab Results 07/21/22 07/21/22 07/21/22 Range/Units 12:10 12:10 12:10 WBC 7.84 (4.8-10.8) K/ul RBC 3.78 L (4.20-5.40) M/uL Hgb 11.6 L (12.0-16.0) g/dl Hct 34.5 L (37.0-47.0) % MCV 91.3 (80.0-100.0) fL MCH 30.7 (25.0-34.0) pg MCHC 33.6 (32.0-36.0) g/dL RDW Std Deviation 48.9 H (36.4-46.3) fL RDW Coeff of [place] 14.6 H (11.5-14.5) % Plt Count 183 (130-400) K/uL MPV 8.5 L (9.4-12.4) fL Immature Gran % (Auto) 0.5 % Neut % (Auto) 58.7 % Lymph % (Auto) 23.5 % [place] % (Auto) 14.5 % Eos % (Auto) 2.0 % Baso % (Auto) 0.8 % Neut # (Auto) 4.60 (1.40-6.50) K/uL Lymph # (Auto) 1.84 (1.2-3.4) K/uL [place] # (Auto) 1.14 H (0.11-0.59) K/uL Eos # (Auto) 0.16 (0-0.50) K/uL Baso # (Auto) 0.06 (0-0.2) K/uL Immature Gran # (Auto) 0.04 (0.01-0.20) K/uL Sodium 134 L (136-145) mmol/L Potassium 6.1 H* (3.5-5.1) mmol/L Chloride 89 L (98-107) mmol/L Carbon Dioxide 30 (21-32) mmol/L Anion Gap 15 H (3-11) BUN 35 H (6-23) mg/dl Creatinine 6.44 H* (0.6-1.2) mg/dl Est Cr Clr Drug Dosing 10.0 ml/min Est GFR ( Amer) 7.3 ml/min Est GFR (Non-Af Amer) 6.3 ml/min BUN/Creatinine Ratio 5.4 L (10-20) Glucose 105 H (70-99(Fasting)) mg/dl Calcium 6.5 L (8.6-10.3) mg/dl Magnesium 1.8 (1.7-2.4) mg/dl Total Bilirubin 0.7 (0.2-1.0) mg/dl AST 18 (13-39) U/L ALT 9 (7-52) U/L Alkaline Phosphatase 200 H (34-104) U/L Troponin I High Sens 6.0 (0-14) pg/ml Total Protein 7.1 (6.0-8.3) gm/dl Albumin 4.3 (3.4-5.0) gm/dl Globulin 2.8 (2.5-4.0) gm/dl Albumin/Globulin Ratio 1.5 (0.9-2) 25-OH Vitamin D Total (30-100) ng/ml TSH 50.415 H (0.300-4.500) uIu/ml Free T4 0.61 (0.61-1.60) ng/dl PTH Intact (12.0-88.0) pg/ml Adenovirus (PCR) (NotDetected) B. pertussis DNA (PCR) (NotDetected) B.parapertussis DNA PCR (NotDetected) C. pneumoniae DNA (PCR) (NotDetected) Coronavirus OC43 (PCR) (NotDetected) Coronavirus HKU1 (PCR) (NotDetected) Coronavirus 229E (PCR) (NotDetected) SARS-CoV-2 (PCR) (NotDetected) Coronavirus NL63 (PCR) (NotDetected) Human Metapneumovir PCR (NotDetected) Influenza Type A (PCR) (NotDetected) Influenza Type B (PCR) (NotDetected) M. pneumoniae (PCR) (NotDetected) Parainfluenza 1 (PCR) (NotDetected) Parainfluenza 2 (PCR) (NotDetected) Parainfluenza 3 (PCR) (NotDetected) Parainfluenza 4 (PCR) (NotDetected) RSV (PCR) (NotDetected) Entero/Rhino (PCR) (NotDetected) 07/21/22 07/21/22 07/21/22 Range/Units 12:10 12:10 12:13 WBC (4.8-10.8) K/ul RBC (4.20-5.40) M/uL Hgb (12.0-16.0) g/dl Hct (37.0-47.0) % MCV (80.0-100.0) fL MCH (25.0-34.0) pg MCHC (32.0-36.0) g/dL RDW Std Deviation (36.4-46.3) fL RDW Coeff of [place] (11.5-14.5) % Plt Count (130-400) K/uL MPV (9.4-12.4) fL Immature Gran % (Auto) % Neut % (Auto) % Lymph % (Auto) % [place] % (Auto) % Eos % (Auto) % Baso % (Auto) % Neut # (Auto) (1.40-6.50) K/uL Lymph # (Auto) (1.2-3.4) K/uL [place] # (Auto) (0.11-0.59) K/uL Eos # (Auto) (0-0.50) K/uL Baso # (Auto) (0-0.2) K/uL Immature Gran # (Auto) (0.01-0.20) K/uL Sodium (136-145) mmol/L Potassium (3.5-5.1) mmol/L Chloride (98-107) mmol/L Carbon Dioxide (21-32) mmol/L Anion Gap (3-11) BUN (6-23) mg/dl Creatinine (0.6-1.2) mg/dl Est Cr Clr Drug Dosing ml/min Est GFR ( Amer) ml/min Est GFR (Non-Af Amer) ml/min BUN/Creatinine Ratio (10-20) Glucose (70-99(Fasting)) mg/dl Calcium (8.6-10.3) mg/dl Magnesium (1.7-2.4) mg/dl Total Bilirubin (0.2-1.0) mg/dl AST (13-39) U/L ALT (7-52) U/L Alkaline Phosphatase (34-104) U/L Troponin I High Sens (0-14) pg/ml Total Protein (6.0-8.3) gm/dl Albumin (3.4-5.0) gm/dl Globulin (2.5-4.0) gm/dl Albumin/Globulin Ratio (0.9-2) 25-OH Vitamin D Total 31.8 (30-100) ng/ml TSH (0.300-4.500) uIu/ml Free T4 (0.61-1.60) ng/dl PTH Intact 3.0 L (12.0-88.0) pg/ml Adenovirus (PCR) Not Detected (NotDetected) B. pertussis DNA (PCR) Not Detected (NotDetected) B.parapertussis DNA PCR Not Detected (NotDetected) C. pneumoniae DNA (PCR) Not Detected (NotDetected) Coronavirus OC43 (PCR) Not Detected (NotDetected) Coronavirus HKU1 (PCR) Not Detected (NotDetected) Coronavirus 229E (PCR) Not Detected (NotDetected) SARS-CoV-2 (PCR) Not Detected (NotDetected) Coronavirus NL63 (PCR) Not Detected (NotDetected) Human Metapneumovir PCR Not Detected (NotDetected) Influenza Type A (PCR) Not Detected (NotDetected) Influenza Type B (PCR) Not Detected (NotDetected) M. pneumoniae (PCR) Not Detected (NotDetected) Parainfluenza 1 (PCR) Not Detected (NotDetected) Parainfluenza 2 (PCR) Not Detected (NotDetected) Parainfluenza 3 (PCR) Not Detected (NotDetected) Parainfluenza 4 (PCR) Not Detected (NotDetected) RSV (PCR) Not Detected (NotDetected) Entero/Rhino (PCR) Not Detected (NotDetected) Administered Medications Amlodipine Besylate (Amlodipine Besylate 5 Mg Tab) 5 mg PO [facility] Stop: 08/21/22 08:59 Last Admin: 07/26/22 08:18 Dose: 5 mg Documented By: Admin: 07/25/22 14:16 Dose: 5 mg Documented By: Admin: 07/24/22 07:50 Dose: 5 mg Documented By: Admin: 07/23/22 07:36 Dose: 5 mg Documented By: Admin: 07/22/22 14:33 Dose: 5 mg Documented By: RACHEL Aspirin (Aspirin 81 Mg Chew) 81 mg PO [facility] Stop: 08/21/22 08:59 Last Admin: 07/26/22 08:16 Dose: 81 mg Documented By: Admin: 07/25/22 14:15 Dose: 81 mg Documented By: Admin: 07/24/22 07:50 Dose: 81 mg Documented By: Admin: 07/23/22 07:35 Dose: 81 mg Documented By: Admin: 07/22/22 14:34 Dose: 81 mg Documented By: RACHEL Calcitriol (Calcitriol 0.25 Mcg Capsule) 2 mcg PO TID VU Stop: 08/25/22 13:59 Last Admin: 07/26/22 21:00 Dose: 2 mcg Documented By: Admin: 07/26/22 13:08 Dose: 2 mcg Documented By: AM Calcium Acetate (Calcium Acetate 667 Mg Cap/Tab) 1,334 mg PO TIDM VU Stop: 08/24/22 11:59 Last Admin: 07/27/22 07:22 Dose: 1,334 mg Documented By: Admin: 07/26/22 16:33 Dose: 1,334 mg Documented By: Admin: 07/26/22 11:47 Dose: 1,334 mg Documented By: Admin: 07/26/22 08:17 Dose: 1,334 mg Documented By: Admin: 07/25/22 17:14 Dose: Not Given Documented By: Admin: 07/25/22 14:16 Dose: 1,334 mg Documented By: DOMINICK Calcium Carbonate (Calcium Carbonate 500 Mg Chewable Tab) 1,000 mg PO QID VU Stop: 08/25/22 08:59 Last Admin: 07/26/22 20:59 Dose: 1,000 mg Documented By: Admin: 07/26/22 16:33 Dose: 1,000 mg Documented By: Admin: 07/26/22 11:47 Dose: 1,000 mg Documented By: Admin: 07/26/22 09:08 Dose: 1,000 mg Documented By: AM Gabapentin (Gabapentin 100 Mg Cap) 100 mg PO BID VU Stop: 08/20/22 20:59 Last Admin: 07/26/22 21:00 Dose: 100 mg Documented By: Admin: 07/26/22 08:15 Dose: 100 mg Documented By: Admin: 07/25/22 21:55 Dose: 100 mg Documented By: Admin: 07/25/22 14:15 Dose: 100 mg Documented By: Admin: 07/24/22 20:55 Dose: 100 mg Documented By: Admin: 07/24/22 07:50 Dose: 100 mg Documented By: Admin: 07/23/22 20:16 Dose: 100 mg Documented By: Admin: 07/23/22 07:36 Dose: 100 mg Documented By: Admin: 07/22/22 19:51 Dose: 100 mg Documented By: Admin: 07/22/22 14:33 Dose: 100 mg Documented By: Admin: 07/21/22 19:45 Dose: 100 mg Documented By: HFS Heparin Sodium (Porcine) (Heparin Sod 5,000 Unit/0.5 Ml Vial) 5,000 units SQ Q8 VU Stop: 08/20/22 21:59 Last Admin: 07/27/22 05:57 Dose: 5,000 units Documented By: Admin: 07/26/22 21:02 Dose: 5,000 units Documented By: Admin: 07/26/22 13:10 Dose: 5,000 units Documented By: Admin: 07/26/22 05:48 Dose: 5,000 units Documented By: Admin: 07/25/22 21:54 Dose: 5,000 units Documented By: Admin: 07/25/22 15:00 Dose: 5,000 units Documented By: Admin: 07/25/22 06:07 Dose: 5,000 units Documented By: Admin: 07/24/22 20:53 Dose: 5,000 units Documented By: Admin: 07/24/22 14:17 Dose: 5,000 units Documented By: Admin: 07/24/22 06:54 Dose: 5,000 units Documented By: Admin: 07/23/22 20:18 Dose: 5,000 units Documented By: Admin: 07/23/22 13:03 Dose: 5,000 units Documented By: Admin: 07/23/22 05:37 Dose: 5,000 units Documented By: Admin: 07/22/22 19:52 Dose: 5,000 units Documented By: Admin: 07/22/22 14:41 Dose: 5,000 units Documented By: Admin: 07/22/22 05:40 Dose: 5,000 units Documented By: Admin: 07/21/22 19:48 Dose: 5,000 units Documented By: HFS Heparin Sodium (Porcine) (Heparin Sod (Porcine) 1000 Unit/Ml) 1,000 units IV TODAY@0800 VU Stop: 07/27/22 23:59 Last Admin: 07/27/22 10:08 Dose: Not Given Documented By: CC Heparin Sodium (Porcine) (Heparin Sod (Porcine) 1000 Unit/Ml) 400 units IV TODAY@0800,0900,1000 VU Stop: 07/27/22 23:59 Last Admin: 07/27/22 10:08 Dose: Not Given Documented By: Admin: 07/27/22 10:08 Dose: Not Given Documented By: Admin: 07/27/22 10:08 Dose: Not Given Documented By: CC Levothyroxine Sodium (Levothyroxine Sodium 100 Mcg Tablet) 100 mcg PO DAILYBB VU Stop: 08/21/22 06:29 Last Admin: 07/27/22 05:57 Dose: 100 mcg Documented By: Admin: 07/26/22 05:48 Dose: 100 mcg Documented By: Admin: 07/25/22 06:07 Dose: 100 mcg Documented By: Admin: 07/24/22 06:54 Dose: 100 mcg Documented By: Admin: 07/23/22 05:38 Dose: 100 mcg Documented By: Admin: 07/22/22 05:59 Dose: 100 mcg Documented By: HFS Magnesium Oxide (Magnesium Oxide 400 Mg Tab) 400 mg PO DAILY VU Stop: 08/21/22 08:59 Last Admin: 07/26/22 08:16 Dose: 400 mg Documented By: Admin: 07/25/22 14:15 Dose: 400 mg Documented By: Admin: 07/24/22 07:51 Dose: 400 mg Documented By: N Admin: 07/23/22 07:36 Dose: 400 mg Documented By: N Admin: 07/22/22 14:34 Dose: 400 mg Documented By: RACHEL Metoprolol Tartrate (Metoprolol Tartrate 25 Mg Tab) 37.5 mg PO BID VU Stop: 08/20/22 20:59 Last Admin: 07/26/22 21:00 Dose: 37.5 mg Documented By: Admin: 07/26/22 08:16 Dose: 37.5 mg Documented By: Admin: 07/25/22 21:56 Dose: 37.5 mg Documented By: Admin: 07/25/22 14:16 Dose: 37.5 mg Documented By: Admin: 07/24/22 20:54 Dose: 37.5 mg Documented By: Admin: 07/24/22 07:50 Dose: 37.5 mg Documented By: Admin: 07/23/22 20:17 Dose: 37.5 mg Documented By: Admin: 07/23/22 07:34 Dose: 37.5 mg Documented By: Admin: 07/22/22 19:51 Dose: 37.5 mg Documented By: Admin: 07/22/22 14:33 Dose: 37.5 mg Documented By: Admin: 07/21/22 19:46 Dose: 37.5 mg Documented By: MARY Pantoprazole Sodium (Pantoprazole 40 Mg Tab) 40 mg PO DAILY@1100 [facility] Stop: 08/21/22 06:29 Last Admin: 07/26/22 11:13 Dose: 40 mg Documented By: Admin: 07/25/22 14:17 Dose: 40 mg Documented By: Admin: 07/24/22 07:51 Dose: 40 mg Documented By: Admin: 07/23/22 11:30 Dose: 40 mg Documented By: Admin: 07/22/22 14:34 Dose: 40 mg Documented By: RACHEL Sodium Zirconium Cyclosilicate (Sodium Zirconium Cyclosilicate 10 Gm Packet) 10 gm PO DAILY@1500 [facility] Stop: 08/25/22 08:59 Last Admin: 07/26/22 15:18 Dose: 10 gm Documented By: CAIO Vitamin B Complex/Folic Acid (Nephrocaps) 1 cap PO DAILY [facility] Stop: 08/21/22 08:59 Last Admin: 07/26/22 08:17 Dose: 1 cap Documented By: Admin: 07/25/22 14:14 Dose: 1 cap Documented By: Admin: 07/24/22 07:51 Dose: 1 cap Documented By: Admin: 07/23/22 07:36 Dose: 1 cap Documented By: Admin: 07/22/22 14:33 Dose: 1 cap Documented By: RACHEL Discontinued Medications Calcitriol (Calcitriol 0.25 Mcg Capsule) 1 mcg PO AMHS VU Stop: 08/20/22 20:59 Last Admin: 07/23/22 07:36 Dose: 1 mcg Documented By: Admin: 07/22/22 19:49 Dose: 1 mcg Documented By: Admin: 07/22/22 14:34 Dose: 1 mcg Documented By: Admin: 07/21/22 19:47 Dose: 1 mcg Documented By: [facility] Calcitriol (Calcitriol 0.25 Mcg Capsule) 1 mcg PO TID VU Stop: 08/22/22 13:59 Last Admin: 07/26/22 08:15 Dose: 1 mcg Documented By: Admin: 07/25/22 21:57 Dose: 1 mcg Documented By: Admin: 07/25/22 14:25 Dose: Not Given Documented By: Admin: 07/25/22 14:15 Dose: 1 mcg Documented By: Admin: 07/24/22 20:55 Dose: 1 mcg Documented By: Admin: 07/24/22 14:17 Dose: 1 mcg Documented By: Admin: 07/24/22 07:52 Dose: 1 mcg Documented By: N Admin: 07/23/22 20:18 Dose: 1 mcg Documented By: Admin: 07/23/22 12:58 Dose: 1 mcg Documented By: GWEN Calcitriol (Calcitriol 0.25 Mcg Capsule) 1 mcg PO NOW ONE Stop: 07/26/22 09:01 Last Admin: 07/26/22 09:10 Dose: 1 mcg Documented By: CAOI Calcium Carbonate (Calcium Carbonate 500 Mg Chewable Tab) 500 mg PO TID@1100,1400,2100 [facility] Stop: 08/20/22 20:59 Last Admin: 07/22/22 15:30 Dose: Not Given Documented By: N Admin: 07/21/22 19:46 Dose: 500 mg Documented By: MARY Calcium Carbonate (Calcium Carbonate 500 Mg Chewable Tab) 1,000 mg PO TID@1100,1400,2100 [facility] Stop: 08/21/22 11:29 Last Admin: 07/25/22 21:55 Dose: 1,000 mg Documented By: Admin: 07/25/22 14:25 Dose: Not Given Documented By: Admin: 07/25/22 14:17 Dose: 1,000 mg Documented By: Admin: 07/24/22 20:54 Dose: 1,000 mg Documented By: Admin: 07/24/22 14:17 Dose: 1,000 mg Documented By: Admin: 07/24/22 10:07 Dose: 1,000 mg Documented By: N Admin: 07/23/22 20:18 Dose: 1,000 mg Documented By: Admin: 07/23/22 13:02 Dose: 1,000 mg Documented By: Admin: 07/23/22 11:30 Dose: 1,000 mg Documented By: Admin: 07/22/22 19:50 Dose: 1,000 mg Documented By: Admin: 07/22/22 15:08 Dose: Not Given Documented By: Admin: 07/22/22 14:35 Dose: 1,000 mg Documented By: RACHEL Dextrose (Dextrose 50% 50 Ml Syringe) 50 ml IV NOW STA Stop: 07/21/22 14:29 Last Admin: 07/21/22 14:39 Dose: 50 ml Documented By: MARCUS Dextrose (Dextrose 50% 50 Ml Syringe) 50 ml IV NOW ONE Stop: 07/22/22 05:22 Last Admin: 07/22/22 05:45 Dose: 50 ml Documented By: MARY Furosemide (Furosemide 10 Mg/Ml 10 Ml Vial) 100 mg IV ONE ONE Stop: 07/21/22 16:38 Last Admin: 07/21/22 17:20 Dose: 100 mg Documented By: SERENA Calcium Gluconate () 1,000 mg in 60 mls @ 240 mls/hr IV NOW STA Stop: 07/21/22 14:41 Last Infusion: 07/21/22 14:54 Dose: 0 mls/hr Documented By: Admin: 07/21/22 14:39 Dose: 240 mls/hr Documented By: MARCUS Calcium Gluconate 11,000 mg/ (Sodium Chloride) 1,000 mls @ 50 mls/hr IV .Q20H VU Stop: 07/22/22 12:59 Last Infusion: 07/22/22 15:30 Dose: 0 mls/hr Documented By: Admin: 07/21/22 17:21 Dose: 50 mls/hr Documented By: SERENA Calcium Gluconate 1,000 mg/ (Dextrose) 60 mls @ 240 mls/hr IV NOW ONE Stop: 07/22/22 05:35 Last Infusion: 07/22/22 06:20 Dose: 0 mls/hr Documented By: Admin: 07/22/22 05:45 Dose: 240 mls/hr Documented By: MARY Insulin Human Regular 5 units/ (Syringe) 5 mls @ 0 mls/hr IV ONE STA Stop: 07/22/22 05:25 Last Admin: 07/22/22 05:44 Dose: 5 mls/hr Documented By: HFS Co-signed By: ESG Calcium Gluconate 11,000 mg/ (Sodium Chloride) 1,000 mls @ 50 mls/hr IV .Q20H VU Stop: 07/24/22 08:59 Last Infusion: 07/24/22 09:13 Dose: 0 mls/hr Documented By: Admin: 07/23/22 12:59 Dose: 50 mls/hr Documented By: GWEN Insulin Human Regular (Novolin-R Insulin Per Unit Charge) 10 units IV NOW STA Stop: 07/21/22 14:29 Last Admin: 07/21/22 14:40 Dose: 10 units Documented By: MARCUS Co-signed By: STU Lorazepam (Lorazepam 2 Mg/1 Ml Vial) 0.5 mg IV NOW STA Stop: 07/21/22 12:42 Last Admin: 07/21/22 13:23 Dose: 0.5 mg Documented By: MARCUS Metolazone (Metolazone 5 Mg Tablet) 5 mg PO NOW ONE Stop: 07/21/22 16:38 Last Admin: 07/21/22 17:20 Dose: 5 mg Documented By: SERENA Sevelamer HCl (Sevelamer Hcl 800 Mg Tablet) 800 mg PO TIDM VU Stop: 08/20/22 16:59 Last Admin: 07/25/22 11:10 Dose: Not Given Documented By: Admin: 07/24/22 17:13 Dose: 800 mg Documented By: Jigar Admin: 07/24/22 11:48 Dose: 800 mg Documented By: Jigar Admin: 07/24/22 07:49 Dose: 800 mg Documented By: Jigar Admin: 07/23/22 16:48 Dose: 800 mg Documented By: Admin: 07/23/22 11:31 Dose: 800 mg Documented By: Admin: 07/23/22 07:36 Dose: 800 mg Documented By: Admin: 07/22/22 17:06 Dose: 800 mg Documented By: N Admin: 07/22/22 14:33 Dose: 800 mg Documented By: Admin: 07/22/22 14:31 Dose: Not Given Documented By: Admin: 07/21/22 17:23 Dose: 800 mg Documented By: SERENA Sodium Bicarbonate (Sodium Bicarb 8.4% Inj 50 Meq/50 Ml Syr) 50 meq IV NOW STA Stop: 07/22/22 05:22 Last Admin: 07/22/22 05:39 Dose: 50 meq Documented By: MARY Sodium Zirconium Cyclosilicate (Sodium Zirconium Cyclosilicate 10 Gm Packet) 10 gm PO ONE ONE Stop: 07/21/22 16:38 Last Admin: 07/21/22 18:45 Dose: Not Given Documented By: SERENA Sodium Zirconium Cyclosilicate (Sodium Zirconium Cyclosilicate 10 Gm Packet) 10 gm PO ONE ONE Stop: 07/21/22 23:01 Last Admin: 07/21/22 23:57 Dose: 10 gm Documented By: MARY Sodium Zirconium Cyclosilicate (Sodium Zirconium Cyclosilicate 10 Gm Packet) 10 gm PO ONE ONE Stop: 07/24/22 09:31 Last Admin: 07/24/22 10:07 Dose: 10 gm Documented By: GWEN Sodium Zirconium Cyclosilicate (Sodium Zirconium Cyclosilicate 10 Gm Packet) 10 gm PO DAILY VU Stop: 08/25/22 08:59 Last Admin: 07/26/22 12:02 Dose: Not Given Documented By: AM Imaging Data Radiologist's Impression: Chest X-Ray 07/21/22 12:40 XR chest 1V portable HISTORY: 66 years-old Female weakness acute weakness COMPARISON: 03/08/2022 TECHNIQUE: AP view of the chest FINDINGS: Cardiac silhouette is enlarged. Unchanged positioning of the right IJ [id number] catheter. No pneumothorax, pleural effusion, airspace consolidation or pulmonary edema. Bones appear grossly intact. IMPRESSION: Cardiomegaly without acute process. ACT 112: Negative or not required by law. The above report was generated using voice recognition software. It may contain grammatical, syntax or spelling errors. Electronically signed by: Siva Whitney M.D. 07/21/2022 1:43 PM Discharge Plan Visit Data Chief Complaint: Shortness of Breath/Dyspnea ED Provider: Tiff Forrest Discharge Problem: Hypocalcemia, S/P parathyroidectomy, ESRD (end stage renal disease) on dialysis, Hyperkalemia Patient Disposition: Admitted As Inpatient Discharge Instructions Interventions: ED Discharge Assessment Last Done: 07/21/22 15:54
[2022-07-23] MEDS: PANTOprazole 40 MG TAB PO SCH (11:30)
[2022-07-23] MEDS: CALCIUM CARBONATE 500 MG CHEWABLE TAB PO SCH ×3 (11:30→20:18)
[2022-07-23] MEDS ORDERED: CALCIUM GLUCONATE 10% 11,000 MG in SODIUM CHLORIDE 0.9% 1000ML 890 ML IV SCH (13:00)
--- NOTE | 2022-07-23 14:19 | Hospitalist Progress Note ---
Date of Service July 23, 2022 Assessment & Plan (1) Hypocalcemia: (2) Post-surgical hypothyroidism: (3) S/P thyroidectomy: (4) S/P parathyroidectomy: (5) ESRD (end stage renal disease) on dialysis: (6) HTN (hypertension): (7) Anemia in chronic kidney disease: Plan This is a 66-year-old female who has significant past medical history of chronic hypoxemic respiratory failure, COPD, HTN, pulmonary hypertension, hyperlipidemia, secondary renal hyperparathyroidism, Graves' disease, [place], CKD stage V on dialysis, kidney transplant failure, anemia of renal disease, history of VRE, history of thyroid cancer who presents to ED secondary to weakness and cramping x1 day. Symptomatic hypocalcemia in setting of recent thyroidectomy and 3.5 gland parathyroidectomy Admitted to PCU Replete calcium with 11 g calcium gluconate and 1 L of normal saline infused over 50 cc/h Continue Tums and calcitriol Check vitamin D and 1, 25 dihydroxy - pending On admission - Calcium 6.5 in setting of normal albumin, PTH low at 3 Nephrology consulted - discussed w/ nephrology - cont. w/ IV calcium gluconate, increase calcitriol to tid Postsurgical hypothyroidism TSH 50, free T4 0.6 Patient had recent increase of levothyroxine to 100 mcg daily, she has not yet started this dose Continue levothyroxine, calcitriol If symptoms do not improve with improvement of calcium could consider further titration of levothyroxine She will need repeat TSH and T4 4 weeks End-stage renal disease on hemodialysis Monday in [place] Hyperkalemia hx of failed kidney transplant in 2017 Received treatment in ED with calcium gluconate, D5 and IV insulin Potassium has normalized, Discussed with nephrology on admission -recommended Lasix 100 mg IV x1, metolazone 50 mg oral x1 and 1 dose of Lokelma 5/12 - last HD while inpt Nephrology consulted Anemia of renal disease H&H stable at 11.6 and 34.[address] Xavier, on Gleevec therapy but that is currently on hold HTN Continue metoprolol and amlodipine DVT prophylaxis: Heparin Full code Dispo: PCU PCP: Dr. Reyna Admission and Anticipated Discharge Date Admission Date: July 21, 2022 Subjective Pt seen in follow up of hypocalcemia, recent thyroidectomy, history of end-stage renal disease, failed renal transplant Currently laying in bed, in NAD Denies any more symptoms that she had prior to coming to the hospital, such as a tightness in her extremities, numbness around her mouth. Overall she feels much improved. Nephrology consulted for hypocalcemia, and dialysis management. Review of Systems Review of Systems: All systems reviewed & are unremarkable except as noted in Subjective Physical Exam Physical Exam: Constitutional:obese F laying in bed, in NAD Head: Normocephalic, Atraumatic Eyes: PERRL, EOMI, conjunctivae normal, anicteric sclerae ENMT: external ear and nose normal, oropharynx normal Respiratory: normal respiratory effort, lungs clear to auscultation, no wheeze, rales, rhonchi. Normal insp/exp effort, no accessory muscle use Cardiovascular: RRR, no murmur, no edema Chest: normal inspection of chest Abdomen: normal bowel sounds, soft, nontender Musculoskeletal:moves extremities Skin: no rashes, warm and dry, LUE AV Fistula Neurologic: PERRL, EOMI, no face palsy, moves all extremities Psychiatric: A+Ox3, euthymic affect Results & Data Results & Data Vital Signs (Past 12 Hours) Vital Signs Temp Pulse Pulse Resp BP Pulse Ox O2 Del Method 07/23/22 11:32 36.8 C 74 19 138/83 96 Room Air 07/23/22 08:47 79 07/23/22 07:50 37.1 C 91 H 18 159/79 H 97 Room Air 07/23/22 03:11 36.6 C 79 18 130/73 98 Room Air Laboratory Results 07/23/22 07/23/22 07/22/22 Range/Units 06:05 06:05 23:11 WBC 6.23 (4.8-10.8) K/ul RBC 3.50 L (4.20-5.40) M/uL Hgb 10.8 L (12.0-16.0) g/dl Hct 32.9 L (37.0-47.0) % MCV 94.0 (80.0-100.0) fL MCH 30.9 (25.0-34.0) pg MCHC 32.8 (32.0-36.0) g/dL RDW Std Deviation 48.9 H (36.4-46.3) fL RDW Coeff of [place] 14.4 (11.5-14.5) % Plt Count 147 (130-400) K/uL MPV 8.5 L (9.4-12.4) fL Immature Gran % (Auto) 0.5 % Neut % (Auto) 54.0 % Lymph % (Auto) 27.1 % [place] % (Auto) 12.8 % Eos % (Auto) 4.5 % Baso % (Auto) 1.1 % Neut # (Auto) 3.36 (1.40-6.50) K/uL Lymph # (Auto) 1.69 (1.2-3.4) K/uL [place] # (Auto) 0.80 H (0.11-0.59) K/uL Eos # (Auto) 0.28 (0-0.50) K/uL Baso # (Auto) 0.07 (0-0.2) K/uL Immature Gran # (Auto) 0.03 (0.01-0.20) K/uL Sodium 137 136 (136-145) mmol/L Potassium 5.1 4.8 (3.5-5.1) mmol/L Chloride 96 L 96 L (98-107) mmol/L Carbon Dioxide 32 30 (21-32) mmol/L Anion Gap 9 10 (3-11) BUN 30 H 28 H (6-23) mg/dl Creatinine 5.44 H* D 5.01 H* D (0.6-1.2) mg/dl Est Cr Clr Drug Dosing 11.6 12.9 ml/min Est GFR ( Amer) 8.9 9.8 ml/min Est GFR (Non-Af Amer) 7.7 8.5 ml/min BUN/Creatinine Ratio 5.5 L 5.6 L (10-20) Glucose 83 91 (70-99(Fasting)) mg/dl Calcium 6.9 L 7.9 L (8.6-10.3) mg/dl Phosphorus 3.8 (2.5-4.9) mg/dl Magnesium 2.0 (1.7-2.4) mg/dl Total Bilirubin 0.6 (0.2-1.0) mg/dl AST 18 (13-39) U/L ALT 9 (7-52) U/L Alkaline Phosphatase 167 H (34-104) U/L Total Protein 6.5 (6.0-8.3) gm/dl Albumin 4.0 (3.4-5.0) gm/dl Globulin 2.5 (2.5-4.0) gm/dl Albumin/Globulin Ratio 1.6 (0.9-2) 07/22/22 Range/Units 14:57 WBC (4.8-10.8) K/ul RBC (4.20-5.40) M/uL Hgb (12.0-16.0) g/dl Hct (37.0-47.0) % MCV (80.0-100.0) fL MCH (25.0-34.0) pg MCHC (32.0-36.0) g/dL RDW Std Deviation (36.4-46.3) fL RDW Coeff of [place] (11.5-14.5) % Plt Count (130-400) K/uL MPV (9.4-12.4) fL Immature Gran % (Auto) % Neut % (Auto) % Lymph % (Auto) % [place] % (Auto) % Eos % (Auto) % Baso % (Auto) % Neut # (Auto) (1.40-6.50) K/uL Lymph # (Auto) (1.2-3.4) K/uL [place] # (Auto) (0.11-0.59) K/uL Eos # (Auto) (0-0.50) K/uL Baso # (Auto) (0-0.2) K/uL Immature Gran # (Auto) (0.01-0.20) K/uL Sodium 138 (136-145) mmol/L Potassium 4.2 D (3.5-5.1) mmol/L Chloride 95 L (98-107) mmol/L Carbon Dioxide 31 (21-32) mmol/L Anion Gap 12 H (3-11) BUN 15 D (6-23) mg/dl Creatinine 3.57 H D (0.6-1.2) mg/dl Est Cr Clr Drug Dosing 18.0 ml/min Est GFR ( Amer) 14.8 ml/min Est GFR (Non-Af Amer) 12.8 ml/min BUN/Creatinine Ratio 4.2 L (10-20) Glucose 99 (70-99(Fasting)) mg/dl Calcium 7.8 L (8.6-10.3) mg/dl Phosphorus (2.5-4.9) mg/dl Magnesium (1.7-2.4) mg/dl Total Bilirubin (0.2-1.0) mg/dl AST (13-39) U/L ALT (7-52) U/L Alkaline Phosphatase (34-104) U/L Total Protein (6.0-8.3) gm/dl Albumin (3.4-5.0) gm/dl Globulin (2.5-4.0) gm/dl Albumin/Globulin Ratio (0.9-2) Medications Administered Current Inpatient Medications Acetaminophen (Acetaminophen 325 Mg Tab) 650 mg PO Q4H PRN PRN Reason: Pain or Fever Stop: 08/20/22 16:36 Amlodipine Besylate (Amlodipine Besylate 5 Mg Tab) 5 mg PO QAM [facility] Stop: 08/21/22 08:59 Last Admin: 07/23/22 07:36 Dose: 5 mg Aspirin (Aspirin 81 Mg Chew) 81 mg PO QAM [facility] Stop: 08/21/22 08:59 Last Admin: 07/23/22 07:35 Dose: 81 mg Calcitriol (Calcitriol 0.25 Mcg Capsule) 1 mcg PO TID VU Stop: 08/22/22 13:59 Last Admin: 07/23/22 12:58 Dose: 1 mcg Calcium Carbonate (Calcium Carbonate 500 Mg Chewable Tab) 1,000 mg PO TID@1100,1400,2100 [facility] Stop: 08/21/22 11:29 Last Admin: 07/23/22 13:02 Dose: 1,000 mg Fluticasone Propionate (Fluticasone Propionate Na Spr 16 Gm Btl) 1 sprays NA DAILY PRN PRN Reason: Allergy Symptoms Stop: 08/20/22 16:36 Gabapentin (Gabapentin 100 Mg Cap) 100 mg PO BID VU Stop: 08/20/22 20:59 Last Admin: 07/23/22 07:36 Dose: 100 mg Heparin Sodium (Porcine) (Heparin Sod 5,000 Unit/0.5 Ml Vial) 5,000 units SQ Q8 VU Stop: 08/20/22 21:59 Last Admin: 07/23/22 13:03 Dose: 5,000 units Calcium Gluconate 11,000 mg/ (Sodium Chloride) 1,000 mls @ 50 mls/hr IV .Q20H [facility] Stop: 07/24/22 08:59 Last Admin: 07/23/22 12:59 Dose: 50 mls/hr Levothyroxine Sodium (Levothyroxine Sodium 100 Mcg Tablet) 100 mcg PO DAILYBB [facility] Stop: 08/21/22 06:29 Last Admin: 07/23/22 05:38 Dose: 100 mcg Magnesium Oxide (Magnesium Oxide 400 Mg Tab) 400 mg PO DAILY VU Stop: 08/21/22 08:59 Last Admin: 07/23/22 07:36 Dose: 400 mg Metoprolol Tartrate (Metoprolol Tartrate 25 Mg Tab) 37.5 mg PO BID VU Stop: 08/20/22 20:59 Last Admin: 07/23/22 07:34 Dose: 37.5 mg Ondansetron HCl (Ondansetron Inj 2 Mg/Ml 2 Ml Vial) 4 mg IV Q6H PRN PRN Reason: Nausea Stop: 08/20/22 16:36 Pantoprazole Sodium (Pantoprazole 40 Mg Tab) 40 mg PO DAILY@1100 [facility] Stop: 08/21/22 06:29 Last Admin: 07/23/22 11:30 Dose: 40 mg Polyethylene Glycol (Polyethylene (Miralax) 17 Gm Pack) 17 gm PO DAILY PRN PRN Reason: Constipation Stop: 08/20/22 16:36 Sevelamer HCl (Sevelamer Hcl 800 Mg Tablet) 800 mg PO TIDM [facility] Stop: 08/20/22 16:59 Last Admin: 07/23/22 11:31 Dose: 800 mg Vitamin B Complex/Folic Acid (Nephrocaps) 1 cap PO DAILY VU Stop: 08/21/22 08:59 Last Admin: 07/23/22 07:36 Dose: 1 cap
--- NOTE | 2022-07-23 22:20 | Nephrology Progress Note ---
Date of Service July 23, 2022 Assessment & Plan (1) ESRD (end stage renal disease) on dialysis: Plan: A 66-year-old female with end-stage renal disease, on hemodialysis Monday, Monday, Monday, presented with multiple vague complaints, which could be related with hypocalcemia. End-stage renal disease,- MWF She was supposed to have outpatient fistulogram done on 07/21, which was done for abnormal vasc alert test with elevated venous pressure. However, there is absolutely no problem at this point and we will defer the fistulogram for outpatient management as per his outpatient despatch clerk.K better after HD yesterday, Next HD will be on Monday. (2) Hypocalcemia: Plan: Hypocalcemia. The patient recently had 3.5 gland parathyroidectomy at [facility]. Since then, she has been followed by ENT/endocrine and is on a very large dose of calcium supplement, but even then, her calcium is running low and it is quite possible that her symptoms of muscle cramp and chest tightness and leg tightness were related with hypocalcemia. For the time being, she is getting both IV and oral calcium. Continue daily BMP as well as magnesium and phosphorus.Calcium again low today,Increase the dose of Calcitriol to 1 mcg TID.Continue on Iv Calcium. Admission and Anticipated Discharge Date Admission Date: July 21, 2022 Subjective Pt seen in follow up of hypocalcemia, recent thyroidectomy, history of end-stage renal disease, failed renal transplant Currently laying in bed, in NAD Denies any more symptoms that she had prior to coming to the hospital, such as a tightness in her extremities, numbness around her mouth. Overall she feels much improved. Review of Systems Review of Systems: All systems reviewed & are unremarkable except as noted in HPI & below Physical Exam Physical Exam: GENERAL: A middle-aged white female who is not in any overt respiratory dist ress. She is awake, alert, oriented x3, and she is comfortably playing with her phone. HEENT: Mucous membranes are moist. NECK: Supple. No jugular venous distention. CHEST: Bilaterally clear to auscultation. CARDIOVASCULAR: S1 and S2, regular. ABDOMEN: Soft, nontender. EXTREMITIES: Show trace edema Results & Data Vital Signs (Past 12 Hours) Vital Signs Temp Pulse Pulse Pulse Resp BP Pulse Ox 07/23/22 19:26 36.6 C 82 18 153/81 H 99 07/23/22 16:00 79 07/23/22 15:32 36.7 C 82 18 149/76 H 94 07/23/22 11:32 36.8 C 74 19 138/83 96 O2 Del Method 07/23/22 19:26 Room Air 07/23/22 16:00 07/23/22 15:32 Room Air 07/23/22 11:32 Room Air Laboratory Results 07/23/22 06:05 07/23/22 06:05
[2022-07-24] MEDS: HEPARIN SOD 5,000 UNIT/0.5 ML VIAL SQ SCH ×3 (06:54→20:53)
[2022-07-24] MEDS: LEVOTHYROXINE SODIUM 100 MCG TABLET PO SCH (06:54)
--- NOTE | 2022-07-24 07:26 | Hospitalist Progress Note ---
Date of Service July 24, 2022 Assessment & Plan (1) Hypocalcemia: (2) Post-surgical hypothyroidism: (3) S/P thyroidectomy: (4) S/P parathyroidectomy: (5) ESRD (end stage renal disease) on dialysis: (6) HTN (hypertension): (7) Anemia in chronic kidney disease: Plan This is a 66-year-old female who has significant past medical history of chronic hypoxemic respiratory failure, COPD, HTN, pulmonary hypertension, hyperlipidemia, secondary renal hyperparathyroidism, Graves' disease, [place], CKD stage V on dialysis, kidney transplant failure, anemia of renal disease, history of VRE, history of thyroid cancer who presents to ED secondary to weakness and cramping x1 day. Symptomatic hypocalcemia in setting of recent thyroidectomy and 3.5 gland parathyroidectomy Admitted to PCU Replete calcium with 11 g calcium gluconate and 1 L of normal saline infused over 50 cc/h Continue Tums and calcitriol Check vitamin D and 1, 25 dihydroxy - pending On admission - Calcium 6.5 in setting of normal albumin, PTH low at 3 Nephrology consulted - received IV calcium gluconate, yesterday increased calcitriol to tid , plan to use 3.5 calcium bath on HD Postsurgical hypothyroidism TSH 50, free T4 0.6 Patient had recent increase of levothyroxine to 100 mcg daily, she has not yet started this dose Continue levothyroxine, calcitriol If symptoms do not improve with improvement of calcium could consider further titration of levothyroxine She will need repeat TSH and T4 4 weeks End-stage renal disease on hemodialysis Monday in [place] Hyperkalemia hx of failed kidney transplant in 2017 Received treatment in ED with calcium gluconate, D5 and IV insulin Potassium has normalized, Discussed with nephrology on admission -recommended Lasix 100 mg IV x1, metolazone 50 mg oral x1 and 1 dose of Lokelma 5/12 - last HD while inpt Nephrology consulted Anemia of renal disease H&H stable at 11.6 and 34.[address] Xavier, on Gleevec therapy but that is currently on hold HTN Continue metoprolol and amlodipine DVT prophylaxis: Heparin Full code Dispo: PCU PCP: Dr. Ryena Admission and Anticipated Discharge Date Admission Date: July 21, 2022 Subjective Pt seen in follow up of hypocalcemia, recent thyroidectomy, history of end-stage renal disease, failed renal transplant Currently sitting up in bed, in NAD, eating lunch Denies any more symptoms that she had prior to coming to the hospital, such as a tightness in her extremities, numbness around her mouth. Overall she feels much improved. Nephrology consulted for hypocalcemia, and dialysis management. Plan for HD tomorrow. Review of Systems Review of Systems: All systems reviewed & are unremarkable except as noted in Subjective Physical Exam Physical Exam: Constitutional:obese F laying in bed, in NAD Head: Normocephalic, Atraumatic Eyes: PERRL, EOMI, conjunctivae normal, anicteric sclerae ENMT: external ear and nose normal, oropharynx normal Respiratory: normal respiratory effort, lungs clear to auscultation, no wheeze, rales, rhonchi. Normal insp/exp effort, no accessory muscle use Cardiovascular: RRR, no murmur, no edema Chest: normal inspection of chest Abdomen: normal bowel sounds, soft, nontender Musculoskeletal:moves extremities Skin: no rashes, warm and dry, LUE AV Fistula Neurologic: PERRL, EOMI, no face palsy, moves all extremities Psychiatric: A+Ox3, euthymic affect Results & Data Results & Data Vital Signs (Past 12 Hours) Vital Signs Temp Pulse Pulse Pulse Resp BP Pulse Ox 07/24/22 03:02 36.5 C 67 18 133/69 99 07/23/22 23:16 68 07/23/22 22:16 36.5 C 69 18 152/84 H 96 07/23/22 19:26 36.6 C 82 18 153/81 H 99 O2 Del Method 07/24/22 03:02 Room Air 07/23/22 23:16 07/23/22 22:16 Room Air 07/23/22 19:26 Room Air Laboratory Results 07/24/22 Range/Units 07:37 Sodium 135 L (136-145) mmol/L Potassium 5.3 H (3.5-5.1) mmol/L Chloride 95 L (98-107) mmol/L Carbon Dioxide 30 (21-32) mmol/L Anion Gap 10 (3-11) BUN 47 H (6-23) mg/dl Creatinine 7.28 H* D (0.6-1.2) mg/dl Est Cr Clr Drug Dosing 8.7 ml/min Est GFR ( Amer) 6.3 ml/min Est GFR (Non-Af Amer) 5.4 ml/min BUN/Creatinine Ratio 6.5 L (10-20) Glucose 84 (70-99(Fasting)) mg/dl Calcium 8.4 L (8.6-10.3) mg/dl Phosphorus 4.0 (2.5-4.9) mg/dl Magnesium 2.1 (1.7-2.4) mg/dl Medications Administered Current Inpatient Medications Acetaminophen (Acetaminophen 325 Mg Tab) 650 mg PO Q4H PRN PRN Reason: Pain or Fever Stop: 08/20/22 16:36 Amlodipine Besylate (Amlodipine Besylate 5 Mg Tab) 5 mg PO QAM [facility] Stop: 08/21/22 08:59 Last Admin: 07/23/22 07:36 Dose: 5 mg Aspirin (Aspirin 81 Mg Chew) 81 mg PO QAM [facility] Stop: 08/21/22 08:59 Last Admin: 07/23/22 07:35 Dose: 81 mg Calcitriol (Calcitriol 0.25 Mcg Capsule) 1 mcg PO TID [facility] Stop: 08/22/22 13:59 Last Admin: 07/23/22 20:18 Dose: 1 mcg Calcium Carbonate (Calcium Carbonate 500 Mg Chewable Tab) 1,000 mg PO TID@1100,1400,2100 [facility] Stop: 08/21/22 11:29 Last Admin: 07/23/22 20:18 Dose: 1,000 mg Fluticasone Propionate (Fluticasone Propionate Na Spr 16 Gm Btl) 1 sprays NA DAILY PRN PRN Reason: Allergy Symptoms Stop: 08/20/22 16:36 Gabapentin (Gabapentin 100 Mg Cap) 100 mg PO BID VU Stop: 08/20/22 20:59 Last Admin: 07/23/22 20:16 Dose: 100 mg Heparin Sodium (Porcine) (Heparin Sod 5,000 Unit/0.5 Ml Vial) 5,000 units SQ Q8 VU Stop: 08/20/22 21:59 Last Admin: 07/24/22 06:54 Dose: 5,000 units Calcium Gluconate 11,000 mg/ (Sodium Chloride) 1,000 mls @ 50 mls/hr IV .Q20H [facility]U Stop: 07/24/22 08:59 Last Admin: 07/23/22 12:59 Dose: 50 mls/hr Levothyroxine Sodium (Levothyroxine Sodium 100 Mcg Tablet) 100 mcg PO DAILYBB [facility] Stop: 08/21/22 06:29 Last Admin: 07/24/22 06:54 Dose: 100 mcg Magnesium Oxide (Magnesium Oxide 400 Mg Tab) 400 mg PO DAILY VU Stop: 08/21/22 08:59 Last Admin: 07/23/22 07:36 Dose: 400 mg Metoprolol Tartrate (Metoprolol Tartrate 25 Mg Tab) 37.5 mg PO BID VU Stop: 08/20/22 20:59 Last Admin: 07/23/22 20:17 Dose: 37.5 mg Ondansetron HCl (Ondansetron Inj 2 Mg/Ml 2 Ml Vial) 4 mg IV Q6H PRN PRN Reason: Nausea Stop: 08/20/22 16:36 Pantoprazole Sodium (Pantoprazole 40 Mg Tab) 40 mg PO DAILY@1100 [facility] Stop: 08/21/22 06:29 Last Admin: 07/23/22 11:30 Dose: 40 mg Polyethylene Glycol (Polyethylene (Miralax) 17 Gm Pack) 17 gm PO DAILY PRN PRN Reason: Constipation Stop: 08/20/22 16:36 Sevelamer HCl (Sevelamer Hcl 800 Mg Tablet) 800 mg PO TIDM [facility] Stop: 08/20/22 16:59 Last Admin: 07/23/22 16:48 Dose: 800 mg Vitamin B Complex/Folic Acid (Nephrocaps) 1 cap PO DAILY VU Stop: 08/21/22 08:59 Last Admin: 07/23/22 07:36 Dose: 1 cap
[2022-07-24] MEDS: SEVELAMER HCL 800 MG TABLET PO SCH ×3 (07:49→17:13)
[2022-07-24] MEDS: amLODIPine BESYLATE 5 MG TAB PO SCH (07:50)
[2022-07-24] MEDS: GABAPENTIN 100 MG CAP PO SCH ×2 (07:50→20:55)
[2022-07-24] MEDS: ASPIRIN 81 MG CHEW PO SCH (07:50)
[2022-07-24] MEDS: METOPROLOL TARTRATE 25 MG TAB PO SCH ×2 (07:50→20:54)
[2022-07-24] MEDS: PANTOprazole 40 MG TAB PO SCH (07:51)
[2022-07-24] MEDS: NEPHROCAPS PO SCH (07:51)
[2022-07-24] MEDS: MAGNESIUM OXIDE 400 MG TAB PO SCH (07:51)
[2022-07-24] MEDS: CALCITRIOL 0.25 MCG CAPSULE PO SCH ×3 (07:52→20:55)
[2022-07-24 08:36] LABS: BUN Creatinine Ratio 6.5 (10-20); Calcium 8.4 mg/dl (8.6-10.3); Creatinine Clr Calc Pharmacy 8.7 ml/min; Est GFR (African American) 6.3 ml/min; Est GFR (Non-African American) 5.4 ml/min; Magnesium 2.1 mg/dl (1.7-2.4); Potassium 5.3 mmol/L (3.5-5.1)
--- NOTE | 2022-07-24 09:25 | Nephrology Progress Note ---
Date of Service July 24, 2022 Assessment & Plan (1) ESRD (end stage renal disease) on dialysis: Plan: A 66-year-old female with end-stage renal disease, on hemodialysis Monday, Monday, Monday, presented with multiple vague complaints, which could be related with hypocalcemia. End-stage renal disease,- MWF She was supposed to have outpatient fistulogram done on 07/21, which was done for abnormal vasc alert test with elevated venous pressure. However, there is absolutely no problem at this point and we will defer the fistulogram for outpatient management as per his outpatient barman.Next HD will be on Monday. -K on the higher side, she needs to on strict renal diet. -Would give stat dose of lokelma 10 mg now. (2) Hypocalcemia: Plan: Hypocalcemia. The patient recently had 3.5 gland parathyroidectomy at [facility]. Since then, she has been followed by ENT/endocrine and is on a very large dose of calcium supplement, but even then, her calcium is running low and it is quite possible that her symptoms of muscle cramp and chest tightness and leg tightness were related with hypocalcemia. For the time being, she is getting both IV and oral calcium. Continue daily BMP as well as magnesium and phosphorus. Calcium better today, -Continue on high dose of Calcitriol to 1 mcg TID.and TUMS - would use 3.0 calcium bath on HD if avaliable Admission and Anticipated Discharge Date Admission Date: July 21, 2022 Subjective Pt seen in follow up of hypocalcemia, recent thyroidectomy, history of end-stage renal disease, failed renal transplant Currently laying in bed, in NAD Denies any more symptoms of tightness in her extremities, numbness around her mouth. Review of Systems Review of Systems: All systems reviewed & are unremarkable except as noted in HPI & below Physical Exam Physical Exam: GENERAL: A middle-aged white female who is not in any overt respiratory distress. She is awake, alert, oriented x3, and she is comfortably playing with her phone. HEENT: Mucous membranes are moist. NECK: Supple. No jugular venous distention. CHEST: Bilaterally clear to auscultation. CARDIOVASCULAR: S1 and S2, regular. ABDOMEN: Soft, nontender. EXTREMITIES: Show trace edema Results & Data Vital Signs (Past 12 Hours) Vital Signs Temp Pulse Pulse Pulse Resp BP Pulse Ox 07/24/22 07:58 37.0 C 75 18 170/91 H 97 07/24/22 03:02 36.5 C 67 18 133/69 99 07/23/22 23:16 68 07/23/22 22:16 36.5 C 69 18 152/84 H 96 O2 Del Method 07/24/22 07:58 Room Air 07/24/22 03:02 Room Air 07/23/22 23:16 07/23/22 22:16 Room Air Laboratory Results 07/23/22 06:05 07/24/22 07:37
[2022-07-24] MEDS ORDERED: SODIUM ZIRCONIUM CYCLOSILICATE 10 GM PACKET PO ONE (09:30)
[2022-07-24] MEDS ORDERED: CALCIUM GLUCONATE 10% 11,000 MG in SODIUM CHLORIDE 0.9% 1000ML 890 ML IV SCH (10:00)
[2022-07-24] MEDS: CALCIUM CARBONATE 500 MG CHEWABLE TAB PO SCH ×3 (10:07→20:54)
[2022-07-25] MEDS: LEVOTHYROXINE SODIUM 100 MCG TABLET PO SCH (06:07)
[2022-07-25] MEDS: HEPARIN SOD 5,000 UNIT/0.5 ML VIAL SQ SCH ×3 (06:07→21:54)
[2022-07-25] MEDS ORDERED: SODIUM CHLORIDE 0.9% 1000ML 1,000 ML IV PRN (07:00)
[2022-07-25 08:41] LABS: BUN Creatinine Ratio 7.4 (10-20); Calcium 8.1 mg/dl (8.6-10.3); Creatinine Clr Calc Pharmacy 7.2 ml/min; Est GFR (Non-African American) 4.3 ml/min; Magnesium 2.1 mg/dl (1.7-2.4); Phosphorus 4.7 mg/dl (2.5-4.9)
[2022-07-25] MEDS ORDERED: CALCIUM ACETATE 667 MG CAP/TAB PO PRN (11:00)
[2022-07-25] MEDS: SEVELAMER HCL 800 MG TABLET PO SCH (11:10)
--- NOTE | 2022-07-25 14:10 | Hospitalist Progress Note ---
Date of Service July 25, 2022 Assessment & Plan (1) Hypocalcemia: (2) Post-surgical hypothyroidism: (3) S/P thyroidectomy: (4) S/P parathyroidectomy: (5) ESRD (end stage renal disease) on dialysis: (6) HTN (hypertension): (7) Anemia in chronic kidney disease: Plan This is a 66-year-old female who has significant past medical history of chronic hypoxemic respiratory failure, COPD, HTN, pulmonary hypertension, hyperlipidemia, secondary renal hyperparathyroidism, Graves' disease, [place], CKD stage V on dialysis, kidney transplant failure, anemia of renal disease, history of VRE, history of thyroid cancer who presents to ED secondary to weakness and cramping x1 day. Symptomatic hypocalcemia in setting of recent thyroidectomy and 3.5 gland parathyroidectomy Admitted to PCU Replete calcium with 11 g calcium gluconate and 1 L of normal saline infused over 50 cc/h Continue Tums and calcitriol Check vitamin D and 1, 25 dihydroxy - pending On admission - Calcium 6.5 in setting of normal albumin, PTH low at 3 Nephrology consulted - received IV calcium gluconate, then increased calcitriol to tid , planned to use 3.5 calcium bath on HD, pt is having HD today (07/25) Postsurgical hypothyroidism TSH 50, free T4 0.6 Patient had recent increase of levothyroxine to 100 mcg daily, she has not yet started this dose Continue levothyroxine, calcitriol If symptoms do not improve with improvement of calcium could consider further titration of levothyroxine She will need repeat TSH and T4 4 weeks End-stage renal disease on hemodialysis Monday in [place] Hyperkalemia hx of failed kidney transplant in 2017 Received treatment in ED with calcium gluconate, D5 and IV insulin Potassium has normalized, Discussed with nephrology on admission -recommended Lasix 100 mg IV x1, metolazone 50 mg oral x1 and 1 dose of Lokelma 5/12 - last HD while inpt Nephrology consulted Anemia of renal disease H&H stable at 11.6 and 34.[address] Xavier, on Gleevec therapy but that is currently on hold HTN Continue metoprolol and amlodipine DVT prophylaxis: Heparin Full code Dispo: PCU PCP: Dr. Reyna Admission and Anticipated Discharge Date Admission Date: July 21, 2022 Subjective Pt seen in follow up of hypocalcemia, recent thyroidectomy, history of end-stage renal disease, failed renal transplant Currently laying in bed, in NAD, on HD Overall feels well. Nephrology consulted for hypocalcemia, and dialysis management. Review of Systems 2 Review of Systems: All systems reviewed & are unremarkable except as noted in Subjective Physical Exam Physical Exam: Constitutional:obese F laying in bed, in NAD, on HD Head: Normocephalic, Atraumatic Eyes: PERRL, EOMI, conjunctivae normal, anicteric sclerae ENMT: external ear and nose normal, oropharynx normal Respiratory: normal respiratory effort, lungs clear to auscultation, no wheeze, rales, rhonchi. Normal insp/exp effort, no accessory muscle use Cardiovascular: RRR, no murmur, no edema Chest: normal inspection of chest Abdomen: normal bowel sounds, soft, nontender Musculoskeletal:moves extremities Skin: no rashes, warm and dry, LUE AV Fistula Neurologic: PERRL, EOMI, no face palsy, moves all extremities Psychiatric: A+Ox3, euthymic affect Results & Data Results & Data Vital Signs (Past 12 Hours) Vital Signs Temp Pulse Pulse Pulse Resp BP BP 07/25/22 12:30 76 161/98 H 07/25/22 12:00 71 168/102 H 07/25/22 11:30 72 190/97 H 07/25/22 11:00 72 155/86 H 07/25/22 10:30 66 162/96 H 07/25/22 10:00 72 163/94 H 07/25/22 09:21 36.5 C 73 07/25/22 10:17 76 07/25/22 07:40 36.7 C 79 18 158/91 H 07/25/22 03:44 36.7 C 76 20 166/86 H Pulse Ox O2 Del Method 07/25/22 12:30 07/25/22 12:00 07/25/22 11:30 07/25/22 11:00 07/25/22 10:30 07/25/22 10:00 07/25/22 09:21 07/25/22 10:17 07/25/22 07:40 100 Room Air 07/25/22 03:44 96 Room Air Laboratory Results 07/25/22 Range/Units 07:46 Sodium 130 L (136-145) mmol/L Potassium 6.0 H (3.5-5.1) mmol/L Chloride 92 L (98-107) mmol/L Carbon Dioxide 26 (21-32) mmol/L Anion Gap 12 H (3-11) BUN 65 H (6-23) mg/dl Creatinine 8.82 H* D (0.6-1.2) mg/dl Est Cr Clr Drug Dosing 7.2 ml/min Est GFR ( Amer) 5.0 ml/min Est GFR (Non-Af Amer) 4.3 ml/min BUN/Creatinine Ratio 7.4 L (10-20) Glucose 107 H (70-99(Fasting)) mg/dl Calcium 8.1 L (8.6-10.3) mg/dl Phosphorus 4.7 (2.5-4.9) mg/dl Magnesium 2.1 (1.7-2.4) mg/dl Medications Administered Current Inpatient Medications Acetaminophen (Acetaminophen 325 Mg Tab) 650 mg PO Q4H PRN PRN Reason: Pain or Fever Stop: 08/20/22 16:36 Amlodipine Besylate (Amlodipine Besylate 5 Mg Tab) 5 mg PO QAM [facility] Stop: 08/21/22 08:59 Last Admin: 07/24/22 07:50 Dose: 5 mg Aspirin (Aspirin 81 Mg Chew) 81 mg PO QAM [facility] Stop: 08/21/22 08:59 Last Admin: 07/24/22 07:50 Dose: 81 mg Calcitriol (Calcitriol 0.25 Mcg Capsule) 1 mcg PO TID [facility] Stop: 08/22/22 13:59 Last Admin: 07/24/22 20:55 Dose: 1 mcg Calcium Acetate (Calcium Acetate 667 Mg Cap/Tab) 1,334 mg PO TIDM [facility] Stop: 08/24/22 11:59 Calcium Acetate (Calcium Acetate 667 Mg Cap/Tab) 667 mg PO PRN PRN PRN Reason: with snack Stop: 08/24/22 10:59 Calcium Carbonate (Calcium Carbonate 500 Mg Chewable Tab) 1,000 mg PO TID@1100,1400,2100 [facility] Stop: 08/21/22 11:29 Last Admin: 07/24/22 20:54 Dose: 1,000 mg Fluticasone Propionate (Fluticasone Propionate Na Spr 16 Gm Btl) 1 sprays NA DAILY PRN PRN Reason: Allergy Symptoms Stop: 08/20/22 16:36 Gabapentin (Gabapentin 100 Mg Cap) 100 mg PO BID [facility] Stop: 08/20/22 20:59 Last Admin: 07/24/22 20:55 Dose: 100 mg Heparin Sodium (Porcine) (Heparin Sod 5,000 Unit/0.5 Ml Vial) 5,000 units SQ Q8 VU Stop: 08/20/22 21:59 Last Admin: 07/25/22 06:07 Dose: 5,000 units Levothyroxine Sodium (Levothyroxine Sodium 100 Mcg Tablet) 100 mcg PO DAILYBB [facility] Stop: 08/21/22 06:29 Last Admin: 07/25/22 06:07 Dose: 100 mcg Magnesium Oxide (Magnesium Oxide 400 Mg Tab) 400 mg PO DAILY [facility] Stop: 08/21/22 08:59 Last Admin: 07/24/22 07:51 Dose: 400 mg Metoprolol Tartrate (Metoprolol Tartrate 25 Mg Tab) 37.5 mg PO BID [facility] Stop: 08/20/22 20:59 Last Admin: 07/24/22 20:54 Dose: 37.5 mg Ondansetron HCl (Ondansetron Inj 2 Mg/Ml 2 Ml Vial) 4 mg IV Q6H PRN PRN Reason: Nausea Stop: 08/20/22 16:36 Pantoprazole Sodium (Pantoprazole 40 Mg Tab) 40 mg PO DAILY@1100 [facility] Stop: 08/21/22 06:29 Last Admin: 07/24/22 07:51 Dose: 40 mg Polyethylene Glycol (Polyethylene (Miralax) 17 Gm Pack) 17 gm PO DAILY PRN PRN Reason: Constipation Stop: 08/20/22 16:36 Vitamin B Complex/Folic Acid (Nephrocaps) 1 cap PO DAILY [facility] Stop: 08/21/22 08:59 Last Admin: 07/24/22 07:51 Dose: 1 cap
[2022-07-25] MEDS: NEPHROCAPS PO SCH (14:14)
[2022-07-25] MEDS: MAGNESIUM OXIDE 400 MG TAB PO SCH (14:15)
[2022-07-25] MEDS: CALCITRIOL 0.25 MCG CAPSULE PO SCH ×3 (14:15→21:57)
[2022-07-25] MEDS: ASPIRIN 81 MG CHEW PO SCH (14:15)
[2022-07-25] MEDS: GABAPENTIN 100 MG CAP PO SCH ×2 (14:15→21:55)
[2022-07-25] MEDS: CALCIUM ACETATE 667 MG CAP/TAB PO SCH ×2 (14:16→17:14)
[2022-07-25] MEDS: METOPROLOL TARTRATE 25 MG TAB PO SCH ×2 (14:16→21:56)
[2022-07-25] MEDS: amLODIPine BESYLATE 5 MG TAB PO SCH (14:16)
[2022-07-25] MEDS: CALCIUM CARBONATE 500 MG CHEWABLE TAB PO SCH ×3 (14:17→21:55)
[2022-07-25] MEDS: PANTOprazole 40 MG TAB PO SCH (14:17)
--- NOTE | 2022-07-25 20:11 | Nephrology Progress Note ---
Date of Service July 25, 2022 Assessment & Plan (1) Hypocalcemia: Plan: The patient recently had 3.5 gland parathyroidectomy at [facility]. Since then, she has been followed by ENT/endocrine and is on a very large dose of calcium supplement, but even then, her calcium is running low and it is quite possible that her symptoms of muscle cramp and chest tightness and leg tightness were related to hypocalcemia. Continue daily BMP as well as magnesium and phosphorus. Calcium 8.1 today >> a drop from yesterday -Continue on high dose of Calcitriol 1 mcg TID.and TUMS tid >>changed her binder to Ca based phoslo instead of renagel >>daily bmp, mag, phos would observe one more day at least given lability of calcium adn high supplements needed. ca still on low side. (2) ESRD (end stage renal disease) on dialysis: Plan: She was supposed to have outpatient fistulogram done on 07/21, which was done for abnormal vasc alert test with elevated venous pressure. However, no vascular access issues this admission and we will defer the fistulogram for outpatient management as per his outpatient software design engineer. Tolerated HD today w/o issues Next HD will be on 07/27 -K quite high this am [facility] on weekend >> had HD, recheck AM; may need d/c on this Admission and Anticipated Discharge Date Admission Date: July 21, 2022 Subjective seen after HD which she tolerated w/o issue; eager for d/c; to[place] po, no sob Review of Systems Review of Systems: All systems reviewed & are unremarkable except as noted in Subjective Physical Exam Constitutional: well developed and well nourished Eyes: EOM intact bilaterally ENMT: Ears: no external ear abnormality Nose: no external nose abnormality Mouth: + dry oral mucous membranes Neck: no nuchal rigidity Respiratory: normal respiratory effort Auscultation: + diminished lung sounds Cardiovascular: Rate/Rhythm: regular rate and regular rhythm Extremities: + edema (trace) Gastrointestinal (Abdomen): Inspection/Auscultation: normal bowel sounds Percussion/Palpation: abdomen soft; abdomen nontender Musculoskeletal: Extremities: strength 5/5 throughout Skin: no rashes, warm and dry Neurologic: gregory, fluent speech, no tremor Psychiatric: Orientation: alert and oriented x 3 Results & Data Vital Signs (Past 12 Hours) Vital Signs Temp Pulse Pulse Resp BP BP Pulse Ox 07/25/22 19:00 36.5 C 85 18 169/83 H 98 07/25/22 18:43 151/80 H 07/25/22 13:40 36.7 C 72 171/75 H 07/25/22 13:30 79 159/100 H 07/25/22 14:13 36.6 C 89 18 197/97 H 98 07/25/22 12:30 76 161/98 H 07/25/22 12:00 71 168/102 H 07/25/22 11:30 72 190/97 H 07/25/22 11:00 72 155/86 H 07/25/22 10:30 66 162/96 H 07/25/22 10:00 72 163/94 H 07/25/22 09:21 36.5 C 73 07/25/22 10:17 76 O2 Del Method 07/25/22 19:00 Room Air 07/25/22 18:43 07/25/22 13:40 07/25/22 13:30 07/25/22 14:13 Room Air 07/25/22 12:30 07/25/22 12:00 07/25/22 11:30 07/25/22 11:00 07/25/22 10:30 07/25/22 10:00 07/25/22 09:21 07/25/22 10:17 Laboratory Results 07/23/22 06:05 07/25/22 07:46
[2022-07-26] MEDS: HEPARIN SOD 5,000 UNIT/0.5 ML VIAL SQ SCH ×3 (05:48→21:02)
[2022-07-26] MEDS: LEVOTHYROXINE SODIUM 100 MCG TABLET PO SCH (05:48)
[2022-07-26 07:32] LABS: BUN Creatinine Ratio 6.8 (10-20); Calcium 7.8 mg/dl (8.6-10.3); Creatinine Clr Calc Pharmacy 11.8 ml/min; Est GFR (African American) 8.9 ml/min; Est GFR (Non-African American) 7.7 ml/min; Magnesium 2.2 mg/dl (1.7-2.4); Phosphorus 3.7 mg/dl (2.5-4.9); Potassium 5.1 mmol/L (3.5-5.1)
[2022-07-26] MEDS: GABAPENTIN 100 MG CAP PO SCH ×2 (08:15→21:00)
[2022-07-26] MEDS: CALCITRIOL 0.25 MCG CAPSULE PO SCH ×3 (08:15→21:00)
[2022-07-26] MEDS: MAGNESIUM OXIDE 400 MG TAB PO SCH (08:16)
[2022-07-26] MEDS: METOPROLOL TARTRATE 25 MG TAB PO SCH ×2 (08:16→21:00)
[2022-07-26] MEDS: ASPIRIN 81 MG CHEW PO SCH (08:16)
[2022-07-26] MEDS: CALCIUM ACETATE 667 MG CAP/TAB PO SCH ×3 (08:17→16:33)
[2022-07-26] MEDS: NEPHROCAPS PO SCH (08:17)
[2022-07-26] MEDS: amLODIPine BESYLATE 5 MG TAB PO SCH (08:18)
--- NOTE | 2022-07-26 08:31 | Nephrology Progress Note ---
Date of Service July 26, 2022 Assessment & Plan (1) Hypocalcemia: Plan: The patient recently had 3.5 gland parathyroidectomy at [facility]. Since then, she has been followed by ENT/endocrine and is on a very large dose of calcium supplement, but even then, her calcium is running low and it is quite possible that her symptoms of muscle cramp and chest tightness and leg tightness were related to hypocalcemia. Continue daily BMP as well as magnesium and phosphorus. Calcium7.5 today from 8.1 yesterday >> which was a drop from the day before >doubled her calcitriol to 2 mcg tid >increased her TUMS to 1 gm qid from tid >continue Ca based binder >>recheck bmp 1600 > may need IV calcium if continues to fall; ok as ca is 9.1 now >>daily bmp, mag, phos needs at least one day of stable/at least low normal Calcium on po meds before d/c (2) ESRD (end stage renal disease) on dialysis: Plan: She was supposed to have outpatient fistulogram done on 07/21, which was done for abnormal vasc alert test with elevated venous pressure. However, no vascular access issues this admission and we will defer the fistulogram for outpatient management as per his outpatient advertising operations manager. Next HD will be on 07/27 -K running high >will start [facility] standing Admission and Anticipated Discharge Date Admission Date: July 21, 2022 Subjective impatient for d/c still but understands care plan, asks questions. no issues w/ poor po or n/v or sob or uncontrolled edema Physical Exam Constitutional: well developed and well nourished Eyes: EOM intact bilaterally ENMT: Ears: no external ear abnormality Nose: no external nose abnormality Mouth: + dry oral mucous membranes Neck: no nuchal rigidity Respiratory: normal respiratory effort Auscultation: + diminished lung sounds Cardiovascular: Rate/Rhythm: regular rate and regular rhythm Extremities: + edema (trace) Gastrointestinal (Abdomen): Inspection/Auscultation: normal bowel sounds Percussion/Palpation: abdomen soft; abdomen nontender Musculoskeletal: Extremities: strength 5/5 throughout Skin: no rashes, warm and dry Psychiatric: Orientation: alert and oriented x 3 Results & Data Vital Signs (Past 12 Hours) Vital Signs Temp Pulse Pulse Resp BP Pulse Ox O2 Del Method 07/26/22 07:30 36.6 C 73 18 139/83 98 Room Air 07/26/22 03:00 36.3 C L 72 21 144/82 H 98 Room Air 07/25/22 23:45 85 07/25/22 23:00 36.6 C 78 19 149/82 H 96 Room Air Laboratory Results 07/23/22 06:05 07/26/22 05:47 Ca 7.5
[2022-07-26] MEDS ORDERED: SODIUM ZIRCONIUM CYCLOSILICATE 10 GM PACKET PO SCH (09:00)
[2022-07-26] MEDS ORDERED: CALCITRIOL 0.25 MCG CAPSULE PO ONE (09:00)
[2022-07-26] MEDS: CALCIUM CARBONATE 500 MG CHEWABLE TAB PO SCH ×4 (09:08→20:59)
[2022-07-26] MEDS: PANTOprazole 40 MG TAB PO SCH (11:13)
[2022-07-26] MEDS ORDERED: SIMETHICONE 80 MG CHEW PO PRN (11:22)
--- NOTE | 2022-07-26 11:22 | Hospitalist Progress Note ---
Date of Service July 26, 2022 Assessment & Plan (1) Hypocalcemia: (2) Post-surgical hypothyroidism: (3) S/P thyroidectomy: (4) S/P parathyroidectomy: (5) ESRD (end stage renal disease) on dialysis: (6) HTN (hypertension): (7) Anemia in chronic kidney disease: Plan This is a 66-year-old female who has significant past medical history of chronic hypoxemic respiratory failure, COPD, HTN, pulmonary hypertension, hyperlipidemia, secondary renal hyperparathyroidism, Graves' disease, [place], CKD stage V on dialysis, kidney transplant failure, anemia of renal disease, history of VRE, history of thyroid cancer who presents to ED secondary to weakness and cramping x1 day. Symptomatic hypocalcemia in setting of recent thyroidectomy and 3.5 gland parathyroidectomy Admitted to PCU Replete calcium with 11 g calcium gluconate and 1 L of normal saline infused over 50 cc/h Continue Tums and calcitriol Check vitamin D and 1, 25 dihydroxy - pending On admission - Calcium 6.5 in setting of normal albumin, PTH low at 3 Nephrology consulted - received IV calcium gluconate on admission, increased calcitriol to tid. Had HD yesterday (07/25) Ca level still low - doubled calcitriol to 2 mcg tid, increased her TUMS to 1 gm qid from tid, continue Ca based binder - recheck bmp 1600 > may need IV calcium if continues to fall - daily bmp, mag, phos - needs at least one day of stable/at least low normal Calcium on po meds before d/c Postsurgical hypothyroidism TSH 50, free T4 0.6 Patient had recent increase of levothyroxine to 100 mcg daily, she has not yet started this dose Continue levothyroxine, calcitriol If symptoms do not improve with improvement of calcium could consider further titration of levothyroxine She will need repeat TSH and T4 4 weeks End-stage renal disease on hemodialysis Monday in [place] Hyperkalemia hx of failed kidney transplant in 2016 Received treatment in ED with calcium gluconate, D5 and IV insulin Potassium has normalized, Discussed with nephrology on admission - recommended Lasix 100 mg IV x1, metolazone 50 mg oral x1 and 1 dose of Lokelma 07/22 - last HD while inpt, next HD tmrw (07/27) Nephrology consulted Anemia of renal disease H&H stable at 11.6 and 34.[address] Xavier, on Gleevec therapy but that is currently on hold HTN Continue metoprolol and amlodipine DVT prophylaxis: Heparin Full code Dispo: PCU PCP: Dr. Reyna Admission and Anticipated Discharge Date Admission Date: July 21, 2022 Subjective Pt seen in follow up of hypocalcemia, recent thyroidectomy, history of end-stage renal disease, failed renal transplant Currently sitting up in bed, in NAD, playing games on her phone Overall feels well. Nephrology consulted for hypocalcemia, and dialysis management. Ca level down again today - discussed w/ nephrology, medication changes made. will need follow up blood work. Review of Systems Review of Systems: All systems reviewed & are unremarkable except as noted in Subjective Physical Exam Physical Exam: Constitutional:obese F laying in bed, in NAD, on HD Head: Normocephalic, Atraumatic Eyes: PERRL, EOMI, conjunctivae normal, anicteric sclerae ENMT: external ear and nose normal, oropharynx normal Respiratory: normal respiratory effort, lungs clear to auscultation, no wheeze, rales, rhonchi. Normal insp/exp effort, no accessory muscle use Cardiovascular: RRR, no murmur, no edema Chest: normal inspection of chest Abdomen: normal bowel sounds, soft, nontender Musculoskeletal:moves extremities Skin: no rashes, warm and dry, LUE AV Fistula Neurologic: PERRL, EOMI, no face palsy, moves all extremities Psychiatric: A+Ox3, euthymic affect Results & Data Results & Data Vital Signs (Past 12 Hours) Vital Signs Temp Pulse Pulse Resp BP Pulse Ox O2 Del Method 07/26/22 10:47 73 07/26/22 07:30 36.6 C 73 18 139/83 98 Room Air 07/26/22 03:00 36.3 C L 72 21 144/82 H 98 Room Air 07/25/22 23:45 85 Laboratory Results 07/26/22 Range/Units 05:47 Sodium 138 (136-145) mmol/L Potassium 5.1 (3.5-5.1) mmol/L Chloride 102 (98-107) mmol/L Carbon Dioxide 26 (21-32) mmol/L Anion Gap 10 (3-11) BUN 37 H D (6-23) mg/dl Creatinine 5.44 H* D (0.6-1.2) mg/dl Est Cr Clr Drug Dosing 11.8 ml/min Est GFR ( Amer) 8.9 ml/min Est GFR (Non-Af Amer) 7.7 ml/min BUN/Creatinine Ratio 6.8 L (10-20) Glucose 86 (70-99(Fasting)) mg/dl Calcium 7.8 L (8.6-10.3) mg/dl Phosphorus 3.7 D (2.5-4.9) mg/dl Magnesium 2.2 (1.7-2.4) mg/dl Medications Administered Current Inpatient Medications Acetaminophen (Acetaminophen 325 Mg Tab) 650 mg PO Q4H PRN PRN Reason: Pain or Fever Stop: 08/20/22 16:36 Amlodipine Besylate (Amlodipine Besylate 5 Mg Tab) 5 mg PO QAM [facility] Stop: 08/21/22 08:59 Last Admin: 07/26/22 08:18 Dose: 5 mg Aspirin (Aspirin 81 Mg Chew) 81 mg PO QAM [facility] Stop: 08/21/22 08:59 Last Admin: 07/26/22 08:16 Dose: 81 mg Calcitriol (Calcitriol 0.25 Mcg Capsule) 2 mcg PO TID [facility] Stop: 08/25/22 13:59 Calcium Acetate (Calcium Acetate 667 Mg Cap/Tab) 1,334 mg PO TIDM [facility] Stop: 08/24/22 11:59 Last Admin: 07/26/22 08:17 Dose: 1,334 mg Calcium Acetate (Calcium Acetate 667 Mg Cap/Tab) 667 mg PO PRN PRN PRN Reason: with snack Stop: 08/24/22 10:59 Calcium Carbonate (Calcium Carbonate 500 Mg Chewable Tab) 1,000 mg PO QID [facility] Stop: 08/25/22 08:59 Last Admin: 07/26/22 09:08 Dose: 1,000 mg Fluticasone Propionate (Fluticasone Propionate Na Spr 16 Gm Btl) 1 sprays NA DAILY PRN PRN Reason: Allergy Symptoms Stop: 08/20/22 16:36 Gabapentin (Gabapentin 100 Mg Cap) 100 mg PO BID [facility] Stop: 08/20/22 20:59 Last Admin: 07/26/22 08:15 Dose: 100 mg Heparin Sodium (Porcine) (Heparin Sod 5,000 Unit/0.5 Ml Vial) 5,000 units SQ Q8 [facility] Stop: 08/20/22 21:59 Last Admin: 07/26/22 05:48 Dose: 5,000 units Levothyroxine Sodium (Levothyroxine Sodium 100 Mcg Tablet) 100 mcg PO DAILYBB [facility] Stop: 08/21/22 06:29 Last Admin: 07/26/22 05:48 Dose: 100 mcg Magnesium Oxide (Magnesium Oxide 400 Mg Tab) 400 mg PO DAILY [facility] Stop: 08/21/22 08:59 Last Admin: 07/26/22 08:16 Dose: 400 mg Metoprolol Tartrate (Metoprolol Tartrate 25 Mg Tab) 37.5 mg PO BID [facility] Stop: 08/20/22 20:59 Last Admin: 07/26/22 08:16 Dose: 37.5 mg Ondansetron HCl (Ondansetron Inj 2 Mg/Ml 2 Ml Vial) 4 mg IV Q6H PRN PRN Reason: Nausea Stop: 08/20/22 16:36 Pantoprazole Sodium (Pantoprazole 40 Mg Tab) 40 mg PO DAILY@1100 [facility] Stop: 08/21/22 06:29 Last Admin: 07/26/22 11:13 Dose: 40 mg Polyethylene Glycol (Polyethylene (Miralax) 17 Gm Pack) 17 gm PO DAILY PRN PRN Reason: Constipation Stop: 08/20/22 16:36 Sodium Zirconium Cyclosilicate (Sodium Zirconium Cyclosilicate 10 Gm Packet) 10 gm PO DAILY [facility] Stop: 08/25/22 08:59 Vitamin B Complex/Folic Acid (Nephrocaps) 1 cap PO DAILY [facility] Stop: 08/21/22 08:59 Last Admin: 07/26/22 08:17 Dose: 1 cap
[2022-07-26] MEDS ORDERED: Nursing to Pharmacy Communication SCH (12:00)
[2022-07-26] MEDS: SODIUM ZIRCONIUM CYCLOSILICATE 10 GM PACKET PO SCH (15:18)
[2022-07-26 16:15] LABS: BUN Creatinine Ratio 7.4 (10-20); Calcium 9.1 mg/dl (8.6-10.3); Creatinine Clr Calc Pharmacy 11.1 ml/min; Est GFR (African American) 8.2 ml/min; Est GFR (Non-African American) 7.1 ml/min; Potassium 5.2 mmol/L (3.5-5.1)
[2022-07-27] MEDS: LEVOTHYROXINE SODIUM 100 MCG TABLET PO SCH (05:57)
[2022-07-27] MEDS: HEPARIN SOD 5,000 UNIT/0.5 ML VIAL SQ SCH ×3 (05:57→22:06)
[2022-07-27] MEDS: CALCIUM ACETATE 667 MG CAP/TAB PO SCH ×3 (07:22→17:19)
[2022-07-27] MEDS ORDERED: SODIUM CHLORIDE 0.9% 1000ML 1,000 ML IV PRN (07:48)
[2022-07-27] MEDS ORDERED: HEPARIN SOD (PORCINE) 1000 UNIT/ML IV SCH (08:00)
[2022-07-27 08:18] LABS: BUN Creatinine Ratio 7.5 (10-20); Calcium 8.4 mg/dl (8.6-10.3); Est GFR (African American) 6.3 ml/min; Est GFR (Non-African American) 5.5 ml/min; Magnesium 2.2 mg/dl (1.7-2.4); Phosphorus 3.8 mg/dl (2.5-4.9); Potassium 5.6 mmol/L (3.5-5.1)
[2022-07-27] MEDS: HEPARIN SOD (PORCINE) 1000 UNIT/ML IV SCH (10:08)
[2022-07-27] MEDS: GABAPENTIN 100 MG CAP PO SCH ×2 (12:52→20:02)
[2022-07-27] MEDS: CALCIUM CARBONATE 500 MG CHEWABLE TAB PO SCH ×4 (12:52→20:01)
[2022-07-27] MEDS: PANTOprazole 40 MG TAB PO SCH (12:55)
[2022-07-27] MEDS: NEPHROCAPS PO SCH (12:56)
[2022-07-27] MEDS: ASPIRIN 81 MG CHEW PO SCH (12:56)
[2022-07-27] MEDS: amLODIPine BESYLATE 5 MG TAB PO SCH (12:57)
[2022-07-27] MEDS: MAGNESIUM OXIDE 400 MG TAB PO SCH (12:58)
[2022-07-27] MEDS: METOPROLOL TARTRATE 25 MG TAB PO SCH ×2 (12:58→20:02)
[2022-07-27] MEDS: CALCITRIOL 0.25 MCG CAPSULE PO SCH ×3 (13:16→20:00)
[2022-07-27] MEDS ORDERED: Nursing to Pharmacy Communication SCH (13:30)
[2022-07-27] MEDS: SODIUM ZIRCONIUM CYCLOSILICATE 10 GM PACKET PO SCH (15:39)
[2022-07-27 16:32] LABS: Vitamin D 1,25 77 pg/mL (18-72); Vitamin D3,1,25 77 pg/mL
--- NOTE | 2022-07-27 16:59 | Dialysis Progress Note ---
Date of Service July 27, 2022 Assessment & Plan (1) Hypocalcemia: Plan: The patient recently had 3.[address] [facility]. Since then, she has been followed by ENT/endocrine and is on a very large dose of calcium supplement, but even then, her calcium is running low and it is quite possible that her symptoms of muscle cramp and chest tightness and leg tightness were related to hypocalcemia. Continue daily BMP as well as magnesium and phosphorus. Calcium 8.4 today from 7.5 yesterday and 8.1 day before yesterday >> which was a drop from the day before >continue doubled calcitriol 2 mcg tid >continue increased her TUMS 1 gm qid >continue Ca based binder >>daily bmp, mag, phos needs at least one day of stable/at least low normal Calcium on po meds before d/c (2) ESRD (end stage renal disease) on dialysis: Plan: She was supposed to have outpatient fistulogram done on 07/21, which was done for abnormal vasc alert test with elevated venous pressure. However, no vascular access issues this admission and we will defer the fistulogram for outpatient felix neri as per his outpatient logistics supervisor. Next HD will be on 07/27 -K running high > started lokelma 07/26 which will continue Admission and Anticipated Discharge Date Admission Date: July 21, 2022 Subjective seen on HD late this AM. tolerating treatment well; no sob, no cramps, no n or edema. Review of Systems Review of Systems: All systems reviewed & are unremarkable except as noted in Subjective Physical Exam Constitutional: well developed and well nourished Eyes: EOM intact bilaterally ENMT: Ears: no external ear abnormality Nose: no external nose abnormality Mouth: + dry oral mucous membranes Neck: no nuchal rigidity Respiratory: normal respiratory effort Auscultation: + diminished lung sounds Cardiovascular: Rate/Rhythm: regular rate and regular rhythm Extremities: + edema (trace) Gastrointestinal (Abdomen): Inspection/Auscultation: normal bowel sounds Percussion/Palpation: abdomen soft; abdomen nontender Musculoskeletal: Extremities: strength 5/5 throughout Skin: no rashes, warm and dry Psychiatric: Orientation: alert and oriented x 3 Results & Data Vital Signs (Past 12 Hours) Vital Signs Temp Pulse Pulse Pulse Pulse Resp BP 07/27/22 15:23 36.8 C 72 17 07/27/22 12:10 36.5 C 71 07/27/22 12:43 36.8 C 76 18 07/27/22 11:30 66 147/91 H 07/27/22 11:00 65 160/89 H 07/27/22 10:30 67 157/97 H 07/27/22 10:00 75 177/89 H 07/27/22 09:30 70 152/91 H 07/27/22 09:00 68 157/87 H 07/27/22 08:25 36.5 C 77 07/27/22 07:51 36.6 C 73 18 BP Pulse Ox O2 Del Method 07/27/22 15:23 149/86 H 96 Room Air 07/27/22 12:10 164/91 H 07/27/22 12:43 159/82 H 97 Room Air 07/27/22 11:30 07/27/22 11:00 07/27/22 10:30 07/27/22 10:00 07/27/22 09:30 07/27/22 09:00 07/27/22 08:25 07/27/22 07:51 171/89 H 97 Room Air Laboratory Results 07/23/22 06:05 07/27/22 07:14
[2022-07-27] MEDS ORDERED: CALCITRIOL 0.25 MCG CAPSULE PO ONE (17:00)
--- NOTE | 2022-07-27 17:29 | Hospitalist Progress Note ---
Date of Service July 27, 2022 Assessment & Plan (1) Hypocalcemia: (2) Post-surgical hypothyroidism: (3) S/P thyroidectomy: (4) S/P parathyroidectomy: (5) ESRD (end stage renal disease) on dialysis: (6) HTN (hypertension): (7) Anemia in chronic kidney disease: Plan 66-year-old female who has significant past medical history of chronic hypoxemic respiratory failure, COPD, HTN, pulmonary hypertension, hyperlipidemia, secondary renal hyperparathyroidism, Graves' disease, [place], CKD stage V on dialysis, kidney transplant failure, anemia of renal disease, history of VRE, history of thyroid cancer who presents to ED secondary to weakness and cramping x1 day. She is being managed for the following: Symptomatic hypocalcemia in setting of recent thyroidectomy and 3.5 gland parathyroidectomy On admission - Calcium 6.5 in setting of normal albumin, PTH low at 3 Admitted to PCU; 25 OH Vit D Wnl at 31.8 and 1,25 OH D slightly high at 77 Ca dropped to 8.4 from 9.1 yesterday. Nephrology consulted - received IV calcium gluconate on admission, increased calcitriol to tid. Had HD today (07/27), managing Ca level. d/w nephro, plan to re-eval labs in AM prior to considering DC. Postsurgical hypothyroidism TSH 50, free T4 0.6 Patient had recent increase of levothyroxine to 100 mcg daily, she has not yet started this dose Continue levothyroxine, calcitriol If symptoms do not improve with improvement of calcium could consider further titration of levothyroxine She will need repeat TSH and T4 4 weeks End-stage renal disease on hemodialysis Monday in [place] Hyperkalemia hx of failed kidney transplant in 2017 Received treatment in ED with calcium gluconate, D5 and IV insulin, pt still higher, on lokelma and is s/p HD today, will follow lab in AM. Nephro on board. 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 Reyna Admission and Anticipated Discharge Date Admission Date: July 21, 2022 Subjective Patient seen and examined at bedside as a follow-up of symptomatic hypocalcemia in the setting of recent thyroidectomy and 3.5 gland parathyroidectomy, postsur gical hypothyroidism, ESRD on hemodialysis, hyperkalemia. Patient was sitting up in bed, using her laptop, on room air, NAD, denies any new acute event overnight, reports eating okay and moving bowels okay, denies any tingling or weakness or nausea or vomiting. Physical Exam Physical Exam: GENERAL: Alert and oriented x3. NAD, on RA. HEENT: No pallor, no icterus. Pupils equal, round and reactive to light. Oral mucosa moist. NECK: No JVD, no neck masses. HEART: S1 and S2 heard. Regular rate and rhythm. No murmur, no gallop. RESPIRATORY SYSTEM: Normal AP diameter. No accessory muscle use. No wheezing, no crackles. ABDOMEN: Soft, bowel sounds present, nontender, no distention. CENTRAL NERVOUS SYSTEM: No facial droop. Speech is clear. Obeys simple commands. Moves extremities. EXTREMITIES: trace ble edema, no erythema seen. LUE AV fistula. Results & Data Results & Data Vital Signs (Past 12 Hours) Vital Signs Temp Pulse Pulse Pulse Pulse Resp BP 07/27/22 16:00 07/27/22 15:23 36.8 C 72 17 07/27/22 12:10 36.5 C 71 07/27/22 12:43 36.8 C 76 18 07/27/22 11:30 66 147/91 H 07/27/22 11:00 65 160/89 H 07/27/22 10:30 67 157/97 H 07/27/22 10:00 75 177/89 H 07/27/22 09:30 70 152/91 H 07/27/22 09:00 68 157/87 H 07/27/22 08:25 36.5 C 77 07/27/22 07:51 36.6 C 73 18 BP Pulse Ox Pulse Ox O2 Del Method O2 Del Method 07/27/22 16:00 96 Room Air 07/27/22 15:23 149/86 H 96 Room Air 07/27/22 12:10 164/91 H 07/27/22 12:43 159/82 H 97 Room Air 07/27/22 11:30 07/27/22 11:00 07/27/22 10:30 07/27/22 10:00 07/27/22 09:30 07/27/22 09:00 07/27/22 08:25 07/27/22 07:51 171/89 H 97 Room Air
[2022-07-27] MEDS ORDERED: CALCIUM CARBONATE 500 MG CHEWABLE TAB PO ONE (23:00)
[2022-07-28] MEDS: HEPARIN SOD 5,000 UNIT/0.5 ML VIAL SQ SCH ×2 (06:24→13:28)
[2022-07-28] MEDS: LEVOTHYROXINE SODIUM 100 MCG TABLET PO SCH (06:24)
[2022-07-28 06:51] LABS: BUN Creatinine Ratio 6.7 (10-20); Calcium 9.3 mg/dl (8.6-10.3); Creatinine Clr Calc Pharmacy 12.4 ml/min; Est GFR (African American) 9.3 ml/min; Potassium 4.9 mmol/L (3.5-5.1)
[2022-07-28] MEDS: CALCITRIOL 0.25 MCG CAPSULE PO SCH ×2 (07:35→13:26)
[2022-07-28] MEDS: METOPROLOL TARTRATE 25 MG TAB PO SCH (07:36)
[2022-07-28] MEDS: CALCIUM CARBONATE 500 MG CHEWABLE TAB PO SCH ×2 (07:36→13:25)
[2022-07-28] MEDS: CALCIUM ACETATE 667 MG CAP/TAB PO SCH ×2 (07:36→11:36)
[2022-07-28] MEDS: GABAPENTIN 100 MG CAP PO SCH (07:41)
[2022-07-28] MEDS: NEPHROCAPS PO SCH (07:41)
[2022-07-28] MEDS: MAGNESIUM OXIDE 400 MG TAB PO SCH (07:42)
[2022-07-28] MEDS: amLODIPine BESYLATE 5 MG TAB PO SCH (07:42)
[2022-07-28] MEDS: ASPIRIN 81 MG CHEW PO SCH (07:42)
--- NOTE | 2022-07-28 08:33 | Nephrology Progress Note ---
Date of Service July 28, 2022 Assessment & Plan (1) Hypocalcemia: Plan: The patient recently had 3.5 gland parathyroidectomy at [facility]. Since then, she has been followed by ENT/endocrine and is on a very large dose of calcium supplement, but even then, her calcium is running low and it is quite possible that her symptoms of muscle cramp and chest tightness and leg tightness were related to hypocalcemia. Continue daily BMP while in house calcium 9.3 today; reasonable for discharge after greater than 24 hours of stable readings on oral medications At discharge recommend: >continue calcitriol 2 mcg tid >continue TUMS 1 gm qid >continue Ca based binder PhosLo current dose -Recommend discharge on Lokelma if possible current dose >>>>>>She needs at least weekly monitoring of serum calcium at dialysis unit and will need frequent medication titration (2) ESRD (end stage renal disease) on dialysis: Plan: She was supposed to have outpatient fistulogram done on 07/21, which was done for abnormal vasc alert test with elevated venous pressure. 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 Next HD will be on 07/29 as outpatient -K running high > started lokelma 07/26 which should at discharge continue Admission and Anticipated Discharge Date Admission Date: July 21, 2022 Subjective No interval events; tolerating po meds; Ca stable/slightly better Review of Systems Review of Systems: All systems reviewed & are unremarkable except as noted in Subjective Physical Exam Constitutional: well developed and well nourished (ambulatory on RA) Eyes: EOM intact bilaterally ENMT: Ears: no external ear abnormality Nose: no external nose abnormality Mouth: + dry oral mucous membranes Neck: no nuchal rigidity Respiratory: normal respiratory effort Auscultation: + diminished lung sounds Cardiovascular: Rate/Rhythm: regular rate and regular rhythm Extremities: + AV fistula; no edema Gastrointestinal (Abdomen): Inspection/Auscultation: normal bowel sounds Percussion/Palpation: abdomen soft; abdomen nontender Musculoskeletal: Extremities: strength 5/5 throughout Skin: no rashes, warm and dry Psychiatric: Orientation: alert and oriented x 3 Results & Data Vital Signs (Past 12 Hours) Vital Signs Temp Pulse Resp BP Pulse Ox O2 Del Method 07/28/22 07:40 36.3 C L 74 16 157/87 H 96 Room Air 07/28/22 03:00 36.6 C 69 20 169/75 H 97 Room Air 07/27/22 23:00 36.8 C 67 18 170/84 H 98 Room Air Laboratory Results 07/23/22 06:05 07/28/22 06:02
[2022-07-28] MEDS: PANTOprazole 40 MG TAB PO SCH (11:36)
--- NOTE | 2022-07-28 13:37 | Discharge Summary ---
Date of Service July 28, 2022 Admission HPI Per Admitting Provider This is a 66-year-old female who has significant past medical history of chronic hypoxemic respiratory failure, COPD, HTN, pulmonary hypertension, hyperlipidemia, secondary renal hyperparathyroidism, Graves' disease, [place], CKD stage V on dialysis, kidney transplant failure, anemia of renal disease, history of VRE, history of thyroid cancer who presents to ED secondary to weakness and cramping x1 day. Patient was on her way for a fistulogram today with Dr. Quintero when in route everything became, "tight." She complained of perioral paresthesias, her face felt swollen, her chest and legs felt tight and she further complained last evening having muscle cramping. She also complains of her hands cramping. She was concerned so she came to ED. Of significance patient recently underwent total thyroidectomy and parathyroidectomy a 3.5 gland excision on 06/28/22 as well as a thymus ectomy by [facility]. Thyroid surgery pathology was benign. There is a greater than 50% drop in PTH intraoperatively. She was recently seen by PCP who increased her levothyroxine to 100 mcg daily. She has not yet started this dose. She has also been taking 4 Tums 3 times a day because her calcium levels being low. She denies any recent illness, fever, chills, sweats, lightheadedness, dizziness, chest pain, shortness with, cough, URI symptoms, nausea, vomiting, abdominal pain, change in bowel or urinary habits. She still does make urine. She had hemodialysis yesterday. In ED patient was hemodynamically stable. Lab work notable for H&H 11.6 and 34.5, K6.1, BUN 35, creatinine 6.44, calcium 6.5, TSH 50.4, free T4.6, PTH low at 3.0. Her bio fire was negative and chest x-ray showed no acute cardiopulmonary disease. She states she was going for fistulogram today but it seems like her fistula is not always working. Admission Exam Per Admitting Provider Constitutional: WD/WN, vitals as above, NAD, sitting up in bed, pleasant, conversing easily Head: Normocephalic, Atraumatic Eyes: PERRL, conjunctivae normal, anicteric sclerae ENMT: external ear and nose normal, oropharynx normal Neck: trachea midline, no thyromegaly normal visual inspection Respiratory: normal respiratory effort, lungs clear to auscultation, no wheeze, rales, rhonchi. Normal insp/exp effort, no accessory muscle use Cardiovascular: RRR, no murmur, no edema Vessels: no JVD or carotid bruit Chest: normal inspection of chest Abdomen: normal bowel sounds, soft, nontender, no hepatosplenomegaly Musculoskeletal: no cyanosis or clubbing, extremities motor strength 5/5 Skin: no rashes, warm and dry normal turgor , LUE AV Fistula Neurologic: PERRL, EOMI, accommodation nl, no face palsy, no dysarthria CN's II-XI intact bilaterally and moves all extremities Psychiatric: A+Ox3, euthymic affect Lymphatic: no cervical or axillary lymphadenopathy : deferred Principal Diagnosis Symptomatic hypocalcemia in setting of recent thyroidectomy and 3.5 gland parathyroidectomy Postsurgical hypothyroidism End-stage renal disease on hemodialysis Discharge Exam GENERAL: Alert and oriented x3. NAD, on RA. HEENT: No pallor, no icterus. Pupils equal, round and reactive to light. Oral mucosa moist. NECK: No JVD, no neck masses. HEART: S1 and S2 heard. Regular rate and rhythm. No murmur, no gallop. RESPIRATORY SYSTEM: Normal AP diameter. No accessory muscle use. No wheezing, no crackles. ABDOMEN: Soft, bowel sounds present, nontender, no distention. CENTRAL NERVOUS SYSTEM: No facial droop. Speech is clear. Obeys simple commands. Moves extremities. EXTREMITIES: trace ble edema, no erythema seen. LUE AV fistula. Discharge Data Allergies Allergy/AdvReac Type Severity Reaction Status Date / Time levofloxacin AdvReac Severe C-DIFF Verified 07/21/22 14:55 Consultations 07/21/22 14:37 Consult Nephrology Routine 07/21/22 14:41 ED Decision to Admit Stat Hospital Course (1) Hypocalcemia: (2) Post-surgical hypothyroidism: (3) S/P thyroidectomy: (4) S/P parathyroidectomy: (5) ESRD (end stage renal disease) on dialysis: (6) HTN (hypertension): (7) Anemia in chronic kidney disease: Plan 66-year-old female who has significant past medical history of chronic hypoxemic respiratory failure, COPD, HTN, pulmonary hypertension, hyperlipidemia, secondary renal hyperparathyroidism, Graves' disease, [place], CKD stage V on dialysis, kidney transplant failure, anemia of renal disease, history of VRE, history of thyroid cancer who presents to ED secondary to weakness and cramping x1 day. She was managed for the following: Symptomatic hypocalcemia in setting of recent thyroidectomy and 3.5 gland parathyroidectomy On admission - Calcium 6.5 in setting of normal albumin, PTH low at 3 Admitted to PCU; 25 OH Vit D Wnl at 31.8 and 1,25 OH D slightly high at 77 Ca dropped to 8.4 from 9.1 yesterday. Better today. Nephrology consulted - received IV calcium gluconate on admission, increased calcitriol to tid. Had HD (07/27), managing Ca level. d/w neprho, ok to DC w/ close f/u w/ nephro. Pt symptom free and hemodynamically stable. Postsurgical hypothyroidism TSH 50, free T4 0.6 Patient had recent increase of levothyroxine to 100 mcg daily, she has not yet started this dose Continue levothyroxine, calcitriol If symptoms do not improve with improvement of calcium could consider further titration of levothyroxine She will need repeat TSH and T4 4 weeks, pt is made aware. End-stage renal disease on hemodialysis Monday in [place] Hyperkalemia hx of failed kidney transplant in 2017 Received treatment in ED with calcium gluconate, D5 and IV insulin, K better today, on lokelfl and is s/p HD 07/27, [facility] per [facility]. f/u w/ nephro in 2 weeks on DC. 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 Reyna Pt being discharged w/ following instruction at the point of discharge: Follow-up with the primary care physician within a week time and likely will need labs CBC/CMP/magnesium/phosphorus. You will need thyroid function test repeated in 4 to 6 weeks time, coordinate with your primary care office for this. You will need to follow-up with nephrology in 2 to 4 weeks time. You will need weekly monitoring of serum calcium at dialysis unit and will need frequent medication titration. Coordinate with nephrology office. At discharge, continue calcitriol 2 mcg 3 times daily, Tums 1 g 4 times daily. Also PhosLo and Lokelma are added. Take your medications as prescribed. Please make sure that you are able to get your medications today by calling your pharmacy before you leave the hospital so that your treatment continuity is not broken. Home Health Attestation I certify that this patient is under my care and that I, or a physicians assistant project manager working with me, had a face to-face encounter that meets the home health [id number] encounter requirements with this patient. The encounter with the patient was in whole, or in part, for the following medical condition, which is the primary reason for home health care (list medical condition): I certify that, based on my findings, the following services are medically necessary home health services: My clinical findings support the need for the above services because: Further, I certify that my clinical findings support that this patient is homebound (i.e. absences from home require considerable and taxing effort and are for medical reasons or uatsdin services or infrequently or of short duration when for other reasons) because: Certification for Home Health Services: Based on the above findings, I certify that this patient is confined to the home and needs intermittent correction care, physical therapy and/or speech therapy or continues to need occupational therapy. The patient is under my care, and I have initiated the establishment of the plan of care. This patient will be followed by a physician who will periodically review the plan of care. Total Time Total Time Spent Total Time Spent (In Minutes): 45 Discharge Plan Discharge Items Patient Disposition: Home - Self-Care Reason For Visit: HYPOCALCEMIA Discharge Diagnosis: Symptomatic hypocalcemia in setting of recent thyroidectomy and 3.5 gland parathyroidectomy Postsurgical hypothyroidism End-stage renal disease on hemodialysis Activity: Resume your previous activity Non-emergency contact: Primary Care Provider Call non-emergency contact if: you have any medication questions, your symptoms worsen and your temperature is above 101 Follow-up/Referrals: Jameel Reyna DO [Primary Care Provider] - (Date & Time 08/02/2022 1:00 PM Provider Jameel Reyna DO Department Family [facility] [address], [place] ) Diet: Dialysis Renal and Low Potassium (2gm) Addtl Attending Provider Instructions: Follow-up with the primary care physician within a week time and likely will ne ed labs CBC/CMP/magnesium/phosphorus. You will need thyroid function test repeated in 4 to 6 weeks time, coordinate with your primary care office for this. You will need to follow-up with nephrology in 2 to 4 weeks time. You will need weekly monitoring of serum calcium at dialysis unit and will need frequent medication titration. Coordinate with nephrology office. At discharge, continue calcitriol 2 mcg 3 times daily, Tums 1 g 4 times daily. Also PhosLo and Lokelma are added. Take your medications as prescribed. Please make sure that you are able to get your medications today by calling your pharmacy before you leave the hospital so that your treatment continuity is not broken. Pending Studies at Discharge: No Stand-Alone Forms: My [facility] [employer], Smoking Cessation Medications and DC Order Prescriptions: New calcium acetate(phosphat bind) 667 mg Capsule 1,334 mg PO TIDM Qty: 180 0RF Lokelma 10 gram Powder In Packet 10 g PO DAILY@1500 Qty: 30 0RF calcitriol 0.25 mcg Capsule 2 mcg PO TID Qty: 720 0RF calcium carbonate [Tums] 200 mg calcium (500 mg) Tablet,Chewable 1,000 mg PO QID Qty: 600 0RF Continued omeprazole 40 mg Capsule,Delayed Release(Dr/Ec) 40 mg PO DAILYBB aspirin 81 mg Tablet,Chewable 81 mg PO QAM gabapentin 100 mg Capsule 100 mg PO BID fluticasone propionate [Flonase Allergy Relief] 50 mcg/actuation [place],Suspension 1 spray INTRANASAL DAILY PRN (Reason: Allergy Symptoms) magnesium oxide 400 mg magnesium Tablet 400 mg PO DAILY imatinib 100 mg Tablet 200 mg PO DAILY ondansetron HCl 8 mg Tablet 8 mg PO TID PRN (Reason: PRIOR TO CHEMOTHERAPY MEDS) amlodipine 5 mg Tablet 5 mg PO QAM prochlorperazine maleate [Compazine] 10 mg Tablet 10 mg PO Q6H PRN (Reason: NAUSEA/VOMITING) triamcinolone acetonide 0.1 % Cream 1 applic TOPICAL BID PRN (Reason: Skin Irritation) levothyroxine 100 mcg Tablet 100 mcg PO DAILYBB Bland Caps 1 mg Capsule 1 cap PO DAILY Rx Instructions: TAKE AFTER DIALYSIS TREATMENT metoprolol tartrate 25 mg Tablet 37.5 mg PO BID Rx Instructions: TAKES 1 1/2 TABS BID calcium carbonate [Tums] 200 mg calcium (500 mg) Tablet,Chewable 800 mg PO TID Discontinued calcitriol 0.5 mcg Capsule 1 mcg PO [facility] sevelamer carbonate [Renvela] 800 mg Tablet 800 mg PO TIDM Rx Instructions: must administer with a meal/food. PER [facility] MED LIST--3 TABLETS WITH MEALS. PT TAKING DIFFERENTLY--1 TABLET TIDM. Discharge Orders: Discharge Order (Routine); Ordered 07/28/22 Ordered By: Lexx Peralta Admission Data Admit Date/Time: 07/21/22 15:13 Attending Provider: Lexx Peralta Admit Provider: Carrie Pratt Primary Care Provider: Jameel Reyna Other Providers: Paulo Roldan ; Carrie Pratt
== END 2022-07-28 14:06 | disposition home or self-care (01) | DRG 640 ==
LOC: ED 12:04 → SUATTDRO 15:13 → 2S 15:13

== ENCOUNTER 2022-09-12 11:47 | Inpatient (IN) ==
[2022-09-12 13:09] LABS: Basophils # (auto) 0.03 K/uL (0-0.2); Basophils % (auto) 0.5 %; Eosinophils # (auto) 0.21 K/uL (0-0.50); Eosinophils % (auto) 3.7 %; Hematocrit (blood only) 30.4 % (37.0-47.0); Hemoglobin 10.4 g/dl (12.0-16.0); Immature Granulocytes # (auto) 0.02 K/uL (0.01-0.20); Immature Granulocytes % (auto) 0.4 %; Lymphocytes # (auto) 1.24 K/uL (1.2-3.4); Lymphocytes % (auto) 21.9 %; Mean Corpuscular Hemoglobin 30.4 pg (25.0-34.0); Mean Corpuscular Hgb Conc 34.2 g/dL (32.0-36.0); Mean Corpuscular Volume 88.9 fL (80.0-100.0); Mean Platelet Volume 8.7 fL (9.4-12.4); Monocytes # (auto) 0.81 K/uL (0.11-0.59); Monocytes % (auto) 14.3 %; Neutrophils # (auto) 3.35 K/uL (1.40-6.50); Neutrophils % (auto) 59.2 %; Platelet Count 152 K/uL (130-400); RDW Coefficient of Variation 13.5 % (11.5-14.5); RDW Standard Deviation 43.8 fL (36.4-46.3); Red Blood Count 3.42 M/uL (4.20-5.40); White Blood Count 5.66 K/ul (4.8-10.8)
[2022-09-12 13:40] LABS: Albumin Globulin Ratio 1.5 (0.9-2); Albumin Level 4.2 gm/dl (3.4-5.0); BUN Creatinine Ratio 3.8 (10-20); Bilirubin,Total 0.6 mg/dl (0.2-1.0); Calcium 10.7 mg/dl (8.6-10.3); Creatinine Clr Calc Pharmacy 8.7 ml/min; Est GFR (African American) 6.1 ml/min; Est GFR (Non-African American) 5.3 ml/min; Globulin 2.8 gm/dl (2.5-4.0); Potassium 3.8 mmol/L (3.5-5.1)
[2022-09-12] MEDS ORDERED: MoRPHine SULFATE 4 MG/ML 1 ML CARP\\VIAL IV STA ×2 (13:47→18:24)
--- NOTE | 2022-09-12 14:51 | CT Scan Report ---
ABDOMEN AND PELVIS CT WITHOUT CONTRAST CT DOSE: 1457.45 mGy.cm HISTORY: back pain flank pain ro kidney stones TECHNIQUE: Multiaxial CT images of the abdomen and pelvis were performed without contrast. A dose lo wering technique was utilized adhering to the principles of ALARA. COMPARISON STUDY: Abdomen and pelvis CT 07/13/2021. FINDINGS: A few tree-in-bud nodular opacities again noted within the lung bases suggestive of a mild chronic bronchiolitis. This is similar to the prior study. No pneumoperitoneum. No pneumatosis. Sligh t increased density within the visualized osseous structures suggestive of renal osteodystrophy. No a cute fractures identified. Cholecystectomy. Moderate to severe intra and extra hepatic bile duct dila tation which has progressed. No hepatic or splenic masses. The spleen remains at the upper limits of normal for size. Normal pancreas. Stable 4 mm right adrenal gland nodule. Normal left kidney. Right r enal hypodense lesion remains stable and favors a cyst. There are few scattered punctate calcificatio ns within the atrophic [place] kidneys. These may represent a combination of cortical calcifications a nd renal calculi. No ureteral calculi. No hydronephrosis within the [place] kidneys. No retroperitonea l lymphadenopathy. Calcified plaque within the normal caliber abdominal aorta. No pelvic lymphadenopa thy or pelvic free fluid. This moderate bladder wall thickening with adjacent fat screening. There is mild perinephric edema within the right lower quadrant transplant. Therefore, this could represent p yelonephritis of the right lower quadrant renal transplant. Suboptimal evaluation for bowel pathology due to the lack of intravenous and oral contrast. However, there is no definite bowel wall thickenin g or obstruction. Colonic diverticulosis. No evidence for acute diverticulitis. Prior appendectomy. T here is a 2.5 cm hypodense nodule on image 73 located between the left hepatic lobe and stomach. This is similar to the prior study. IMPRESSION: 1. Interval development of moderate to severe intra and extrahepatic bile duct dilatation. This raise s the possibility of an occult obstructing lesion, stone, or stricture. [facility] recommended for further evaluation. 2. Bladder wall thickening with adjacent fat stranding consistent with a cystitis. There is also mild perinephric edema within the right lower quadrant renal transplant. This could represent an associat ed pyelonephritis. Recommend correlation with urinalysis. 3. Redemonstration of the indeterminate 2.5 cm nodule located between the left hepatic lobe and stoma ch. This could represent an exophytic gastric lesion or hepatic lesion. Follow-up nonemergent liver M RI recommended for further evaluation. 4. Additional findings as described above. ACT 112: Positive. There are findings on this exam that require communication between the performing entity and the patient following Patient Test Result Information Act ([place] Act 112) guidelines. Electronically signed by: Jesus Alberto Hernández M.D. 09/12/2022 2:49 PM
--- NOTE | 2022-09-12 16:12 | Ultrasound Report ---
US gallbladder CLINICAL HISTORY: R flank pain RUQ pain biliary ductal dilatation TECHNIQUE: Multiple real-time sonographic images of the right upper quadrant were obtained. Comparison: None available at the time of this dictation. FINDINGS: The liver is diffusely homogenous with normal contour and echogenicity. Redemonstration of a extrahep atic mass lesion measuring 3.1 x 1.7 x 2.3 cm. Intrahepatic ducts are seen.. Patient is status post cholecystectomy. The common duct measures 1.9 cm in diameter at the level of the hepatic artery. [place] creatic duct measures 0.5 cm. The right kidney is atrophic in appearance. No evidence of hydronephrosis. A simple cyst is seen in t he upper pole. No ascites or free fluid is seen in Villalobos's pouch. IMPRESSION: 1. Dilation of the common bile duct and intrahepatic bile ducts again seen. Pancreatic ductal promin ence similar to prior exam. 2. Atrophic kidney. 3. Redemonstration of indeterminate nodule adjacent to the stomach. ACT 112: Negative or not required by law. Electronically signed by: Phill Loomis M.D. 09/12/2022 4:11 PM
[2022-09-12] MEDS ORDERED: cefTRIAXone SODIUM 1,000 MG in DEXTROSE 5% AD-VAN 50 ML IV STA (17:10)
--- NOTE | 2022-09-12 17:10 | Emergency Department Note ---
History of Present Illness General Chief Complaint: Abdominal Pain Stated Complaint: ABDOMINAL PAIN, BACK/RIB PAIN, MOLE ON RT SHOULDER Time Seen by Provider: 09/12/22 13:42 History of Present Illness Provider Complaint: abdominal pain and flank pain Onset (ago): 3 week(s) Pain Consistency: intermittent Location: R flank Radiation: RUQ Migration to: RLQ Severity: moderate Maximum Pain Intensity: 8 Current Pain Intensity: 8 Quality: + stabbing and + sharp Relieved By: + nothing Exacerbated By: + nothing Context: no foreign travel, no possible food poisoning, no sick contacts, no recent antibiotic use, no recent surgery/procedure or no recent injury Associated Symptoms: + nausea and + vomiting; no fever, no chills, no dysuria, no hematemesis, no hematochezia, no melena, no hematuria, no syncope, no headache and no chest pain Patient is end-stage renal disease on hemodialysis Monday. Patient states she only got 1.5 hours of hemodialysis today and she usually gets 3.5 hours. Home Medications Medication Instructions Recorded Confirmed Type aspirin 81 mg chewable tablet 81 mg PO QAM 04/23/18 09/12/22 History fluticasone propionate 50 1 spray intranasal DAILY PRN 04/23/18 09/12/22 History mcg/actuation nasal Allergy Symptoms spray,suspension (Flonase Allergy Relief) gabapentin 100 mg capsule 100 mg PO BID 04/23/18 09/12/22 History omeprazole 40 mg capsule,delayed 40 mg PO DAILYBB 04/23/18 09/12/22 History release magnesium oxide 400 mg PO QAM 03/08/22 09/12/22 History amlodipine 5 mg tablet 5 mg PO QAM 07/21/22 09/12/22 History levothyroxine 100 mcg tablet 100 mcg PO DAILYBB 07/21/22 09/12/22 History metoprolol tartrate 25 mg tablet 37.5 mg PO BID 07/21/22 09/12/22 History ondansetron HCl 8 mg tablet 8 mg PO TID PRN PRIOR TO 07/21/22 09/12/22 History CHEMOTHERAPY MEDS prochlorperazine maleate 10 mg 10 mg PO Q6H PRN NAUSEA/VOMITING 07/21/22 09/12/22 History tablet (Compazine) triamcinolone acetonide 0.1 % 1 applic topical 2XWK PRN Skin 07/21/22 09/12/22 History topical cream Irritation vitamin B complex and vitamin C 1 cap PO DAILY 07/21/22 09/12/22 History no.20-folic acid 1 mg capsule ([place] Caps) calcium acetate(phosphat bind) 667 1,334 mg PO TIDM #180 caps 07/28/22 09/12/22 Rx mg capsule calcium carbonate 200 mg calcium 1,000 mg PO QID #600 tabs 07/28/22 09/12/22 Rx (500 mg) chewable tablet (Tums) sodium zirconium cyclosilicate 10 10 g PO DAILY@1500 #30 ea 07/28/22 09/12/22 Rx gram oral powder packet (Lokelma) calcitriol 0.5 mcg capsule 0.5 mcg PO TID 09/12/22 09/12/22 History oxycodone-acetaminophen 2.5 mg-325 1 tab PO Q8H PRN pain,severe 09/12/2209/12 History mg tablet Allergies Allergy/AdvReac Type Severity Reaction Status Date / Time levofloxacin AdvReac Severe C-DIFF Verified 08/16/22 09:57 Past Med/Surg History Medical History Abnormal stress test 01/2021 (reversible anterior and basal lateral defect consistent with ischemia vs soft tissue attenuation artifact) per [facility] cardio records, plan for medical management and consideration for DSE at 03/2021 appt; final determination per [facility] cardio is recommendation for diagnostic cardiac catheterization not yet scheduled by patient; now advised risk > benefit per [facility] cardio Anemia in chronic kidney disease AV fistula left upper arm (functioning), also one to left wrist, but does not function properly Chronic back pain COPD (chronic obstructive pulmonary disease) stable per pt, no longer using supplemental oxygen-states home pulse ox readings are consistently 97% or greater-pt states provider is aware COVID-19 01/29/22-not hospitalized-symptoms fully resolved ESRD (end stage renal disease) on dialysis MWF at [facility] in [place] 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 At least 1 of the peritoneal dialysis catheters had to be removed because of peritonitis..." HLD (hyperlipidemia) HTN (hypertension) controlled, stable per pt Hypocalcemia Hypothyroidism supplementation d/c by PCP d/t low TSH with elevated free T4 and T3, patient symptomatic-has not yet started advised beta darrell by PCP, + thyroid stimulating immunoglobulin and abnormal thyroid biopsy 12/02; pt was lost to f/u with [facility] endocrinology, now scheduled 05/2022 Limb alert care status left arm Migraine Neck pain h/o UE paresthesias; pt states neck pain and upper extremity abnormal symptoms fully resolved Palpitations on occasion-denies associated dizziness or lightheadedness-follows with [facility] cardio and PCP, notable current thyroid dysfunction; [facility] cardio advised 4 week or prn f/u-pt d/c initial beta darrell rx by cardio, did not initiate recommend alternate beta darrell from PCP yet Port-A-Cath in place Pulmonary hypertension Secondary hyperparathyroidism Sleep apnea severe per [facility] records, no device currently > has apt soon to see about getting back on device Thyroid nodule abnormal biopsy 12/02 with concerning results per [facility] endo, + thyroid stimul ating immunoglobulin; pt lost to f/u; now has [facility] endocrinology appointment 05/2022 Surgical History H/O cystoscopy History of appendectomy History of bilateral tubal ligation History of section x1 History of cholecystectomy History of colonoscopy History of esophagogastroduodenoscopy (EGD) History of kidney transplant 08/28/2016 @ [facility] (right side) functions at only 10%--d/t ESRD > follows with Dr. Roldan History of laparoscopy History of surgery hx perm cath insertion & removal History of tonsillectomy and adenoidectomy History of tooth extraction History of wisdom tooth extraction Family History Grandmother (Paternal) Family history of diabetes mellitus Grandmother (Maternal) Family history of diabetes mellitus Family hx of colon cancer Mother Family hx of colon cancer Other No family history of adverse response to anesthesia Social History Smoking Status: Former smoker Tobacco Type: Cigarettes Second Hand Exposure: No; Do You Dip or Chew Tobacco: No; Hx Alcohol Use: No Hx Substance Use: No Preferred Language: Taiwanese Communication Ability: Effective Tower Observer Required: No Beliefs That Will Affect Care: None marital status: Current Living Situation: Spouse Current Living Situation Comment: Lives with and daughter and her family How many Children do You have: 1 Feels Safe at Home: Yes Assistive Devices: None Physical Exam Vital Signs: Vital Signs - 24 hr 09/12/22 11:55 09/12/22 16:11 09/12/22 16:11 Temperature 36.6 C Temperature Source Temporal Artery Sc an Pulse Rate 70 70 Pulse Rate from Sp O2 Sensor Respiratory Rate 20 Blood Pressure 143/70 H 169/92 H Blood Pressure Renay n 94 117 Pulse Oximetry 94 Oxygen Delivery Me thod Room Air Sepsis Recent Feve r Within 48 Hours No Sepsis New/Unexpla ined Change in Men sheldon Status N/A Sepsis Action Take n by Nursing No Action Required 09/12/22 16:11 09/12/22 16:30 09/12/22 16:30 Temperature Temperature Source Pulse Rate 71 73 Pulse Rate from Sp O2 Sensor 71 73 Respiratory Rate 22 19 Blood Pressure 161/113 H Blood Pressure Renay n 124 Pulse Oximetry 92 94 Oxygen Delivery Me thod Sepsis Recent Feve r Within 48 Hours Sepsis New/Unexpla ined Change in Men sheldon Status Sepsis Action Take n by Nursing 09/12/22 17:00 09/12/22 17:00 09/12/22 17:40 Temperature Temperature Source Pulse Rate 72 Pulse Rate from Sp O2 Sensor 72 71 Respiratory Rate 23 Blood Pressure 175/91 H Blood Pressure Renay n 122 Pulse Oximetry 90 94 Oxygen Delivery Me thod Sepsis Recent Feve r Within 48 Hours Sepsis New/Unexpla ined Change in Men sheldon Status Sepsis Action Take n by Nursing 09/12/22 17:43 09/12/22 17:43 Temperature Temperature Source Pulse Rate 70 Pulse Rate from Sp O2 Sensor 71 Respiratory Rate 23 Blood Pressure 179/90 H Blood Pressure Renay n 107 Pulse Oximetry 93 Oxygen Delivery Me thod Sepsis Recent Feve r Within 48 Hours Sepsis New/Unexpla ined Change in Men sheldon Status Sepsis Action Take n by Nursing Physical Exam: Physical Exam GENERAL: She is oriented to person, place, and time. She appears well-developed and well-nourished. She does not appear distressed. HENT: Exam performed. -Head: Normocephalic and atraumatic. -Right Ear: External ear normal. No mastoid erythema -Left Ear: External ear normal. No mastoid erythema -Mouth/Throat: The oropharynx is clear and moist. No trismus in the jaw. No dental abscesses or uvula swelling. No oropharyngeal exudate or tonsillar abscesses. EYES: Conjunctivae and EOM are normal.Right eye exhibits no discharge. Left eye exhibits no discharge. No scleral icterus. NECK: Normal range of motion. Neck supple. No JVD present. No tracheal deviation and normal range of motion present. CV: Normal rate, regular rhythm, normal heart sounds and intact distal pulses. There is no peripheral edema. Palpable radial pulses bue. PULM/CHEST: Effort normal and breath sounds normal. No respiratory distress. No stridor. She has no wheezes. She has no rales. -Chest Wall: She exhibits no tenderness. ABD: The abdomen is soft. Bowel sounds are normal. She has no distension. No mass is present. There is tenderness to palpation of the right upper and right lower quadrants. There is no rebound, no guarding, no Lopez's sign and no tenderness at McBurney's point. Rovsig negative. Right-sided CVA tenderness. MUSC/SKEL: Normal range of motion. There is no peripheral edema, tenderness or deformity. Left AV fistula present with palpable thrill NEURO: Motor and sensation grossly intact. SKIN: Skin is warm and dry. She is not diaphoretic. PSYCH: She has a normal mood and affect. Behavior is normal. Judgment and thought content normal. Course Course 1342: The patient was evaluated in room C4. A complete history and physical exam was performed Cardiac monitoring: An order was placed for continuous cardiac monitoring. The monitor shows a rate of 70 with sinus rhythm interpreted by nh 1718: Vital signs stable. Labs are within normal limits with exception of a creatinine which is at baseline. No leukocytosis. No transaminitis. Lipase within normal limits. Imaging showed moderate to severe intra and extrahepatic bile duct dilatation, Common bile duct was dilated as well as pancreatic duct. There is bladder wall thickening with adjacent fat stranding and mild perinephric edema within the right lower quadrant renal transplant. Patient be treated with Rocephin [facility] Administered Medications Discontinued Medications Ceftriaxone Sodium 1,000 mg/ (Dextrose) 50 mls @ 100 mls/hr IV NOW STA Stop: 09/12/22 17:39 Last Admin: 09/12/22 18:17 Dose: 100 mls/hr Documented By: DOMINICK Morphine Sulfate (Morphine Sulfate 4 Mg/Ml 1 Ml Carp\\Vial) 4 mg IV NOW STA Stop: 09/12/22 13:48 Last Admin: 09/12/22 13:53 Dose: 4 mg Documented By: KAYLIN Morphine Sulfate (Morphine Sulfate 4 Mg/Ml 1 Ml Carp\\Vial) 4 mg IV NOW STA Stop: 09/12/22 18:25 Last Admin: 09/12/22 18:31 Dose: 4 mg Documented By: DOMINICK Medical Decision Making Laboratory Data Attestation: I reviewed the patient's lab results. 09/12/22 12:43 09/12/22 12:43 Lab Results 09/12/22 09/12/22 09/12/22 Range/Units 12:43 12:43 17:40 WBC 5.66 (4.8-10.8) K/ul RBC 3.42 L (4.20-5.40) M/uL Hgb 10.4 L (12.0-16.0) g/dl Hct 30.4 L (37.0-47.0) % MCV 88.9 (80.0-100.0) fL MCH 30.4 (25.0-34.0) pg MCHC 34.2 (32.0-36.0) g/dL RDW Std Deviation 43.8 (36.4-46.3) fL RDW Coeff of [place] 13.5 (11.5-14.5) % Plt Count 152 (130-400) K/uL MPV 8.7 L (9.4-12.4) fL Immature Gran % (Auto) 0.4 % Neut % (Auto) 59.2 % Lymph % (Auto) 21.9 % [place] % (Auto) 14.3 % Eos % (Auto) 3.7 % Baso % (Auto) 0.5 % Neut # (Auto) 3.35 (1.40-6.50) K/uL Lymph # (Auto) 1.24 (1.2-3.4) K/uL [place] # (Auto) 0.81 H (0.11-0.59) K/uL Eos # (Auto) 0.21 (0-0.50) K/uL Baso # (Auto) 0.03 (0-0.2) K/uL Immature Gran # (Auto) 0.02 (0.01-0.20) K/uL Sodium 133 L (136-145) mmol/L Potassium 3.8 (3.5-5.1) mmol/L Chloride 88 L (98-107) mmol/L Carbon Dioxide 34 H (21-32) mmol/L Anion Gap 11 (3-11) BUN 28 H (6-23) mg/dl Creatinine 7.39 H* (0.6-1.2) mg/dl Est Cr Clr Drug Dosing 8.7 ml/min Est GFR ( Amer) 6.1 ml/min Est GFR (Non-Af Amer) 5.3 ml/min BUN/Creatinine Ratio 3.8 L (10-20) Glucose 93 (70-99(Fasting)) mg/dl Calcium 10.7 H (8.6-10.3) mg/dl Total Bilirubin 0.6 (0.2-1.0) mg/dl AST 24 (13-39) U/L ALT 24 (7-52) U/L Alkaline Phosphatase 107 H (34-104) U/L Total Protein 7.0 (6.0-8.3) gm/dl Albumin 4.2 (3.4-5.0) gm/dl Globulin 2.8 (2.5-4.0) gm/dl Albumin/Globulin Ratio 1.5 (0.9-2) Lipase 65 (11-82) U/L Urine Color Yellow Urine Appearance Clear (Clear) Urine pH 8.0 H (4.5-7.5) Ur Specific [place] 1.007 (1.000-1.030) Urine Protein 3+ H (Negative) Urine Glucose (UA) Trace H (Negative) Urine Ketones Trace H (Negative) Urine Blood Trace H (Negative) Urine Nitrite Negative (Negative) Urine Bilirubin Negative (Negative) Urine Urobilinogen Negative (Negative) Ur Leukocyte Esterase Negative (Negative) Urine WBC (Auto) 1-5 (0-5) /hpf Urine RBC (Auto) 0-4 (0-4) /hpf U Hyaline Cast (Auto) 0 (0-5) /lpf U Epithel Cells (Auto) 5-10 H (0-5) /lpf Urine Bacteria (Auto) Negative (Negative) Ur Renal Epithelial Cell Urine Crystals Calcium Oxalate Crystal Uric Acid Crystals Triple Phos Crystals Other Crystals Amorphous Sediment Granular Casts Waxy Casts RBC Casts WBC Casts Other Casts Urine Mucus Urine Other Urine Trichomonas Urine Yeast Urine Sperm Ur Oval Fat Bodies SARS-CoV-2, RNA, NAAT (NEGATIVE) 09/12/22 09/12/22 Range/Units Unknown Unknown WBC (4.8-10.8) K/ul RBC (4.20-5.40) M/uL Hgb (12.0-16.0) g/dl Hct (37.0-47.0) % MCV (80.0-100.0) fL MCH (25.0-34.0) pg MCHC (32.0-36.0) g/dL RDW Std Deviation (36.4-46.3) fL RDW Coeff of [place] (11.5-14.5) % Plt Count (130-400) K/uL MPV (9.4-12.4) fL Immature Gran % (Auto) % Neut % (Auto) % Lymph % (Auto) % [place] % (Auto) % Eos % (Auto) % Baso % (Auto) % Neut # (Auto) (1.40-6.50) K/uL Lymph # (Auto) (1.2-3.4) K/uL [place] # (Auto) (0.11-0.59) K/uL Eos # (Auto) (0-0.50) K/uL Baso # (Auto) (0-0.2) K/uL Immature Gran # (Auto) (0.01-0.20) K/uL Sodium (136-145) mmol/L Potassium (3.5-5.1) mmol/L Chloride (98-107) mmol/L Carbon Dioxide (21-32) mmol/L Anion Gap (3-11) BUN (6-23) mg/dl Creatinine (0.6-1.2) mg/dl Est Cr Clr Drug Dosing ml/min Est GFR ( Amer) ml/min Est GFR (Non-Af Amer) ml/min BUN/Creatinine Ratio (10-20) Glucose (70-99(Fasting)) mg/dl Calcium (8.6-10.3) mg/dl Total Bilirubin (0.2-1.0) mg/dl AST (13-39) U/L ALT (7-52) U/L Alkaline Phosphatase (34-104) U/L Total Protein (6.0-8.3) gm/dl Albumin (3.4-5.0) gm/dl Globulin (2.5-4.0) gm/dl Albumin/Globulin Ratio (0.9-2) Lipase (11-82) U/L Urine Color Cancelled Urine Appearance Cancelled (Clear) Urine pH Cancelled (4.5-7.5) Ur Specific [place] Cancelled (1.000-1.030) Urine Protein Cancelled (Negative) Urine Glucose (UA) Cancelled (Negative) Urine Ketones Cancelled (Negative) Urine Blood Cancelled (Negative) Urine Nitrite Cancelled (Negative) Urine Bilirubin Cancelled (Negative) Urine Urobilinogen Cancelled (Negative) Ur Leukocyte Esterase Cancelled (Negative) Urine WBC (Auto) Cancelled (0-5) /hpf Urine RBC (Auto) Cancelled (0-4) /hpf U Hyaline Cast (Auto) Cancelled (0-5) /lpf U Epithel Cells (Auto) Cancelled (0-5) /lpf Urine Bacteria (Auto) Cancelled (Negative) Ur Renal Epithelial Cell Cancelled Urine Crystals Cancelled Calcium Oxalate Crystal Cancelled Uric Acid Crystals Cancelled Triple Phos Crystals Cancelled Other Crystals Cancelled Amorphous Sediment Cancelled Granular Casts Cancelled Waxy Casts Cancelled RBC Casts Cancelled WBC Casts Cancelled Other Casts Cancelled Urine Mucus Cancelled Urine Other Cancelled Urine Trichomonas Cancelled Urine Yeast Cancelled Urine Sperm Cancelled Ur Oval Fat Bodies Cancelled SARS-CoV-2, RNA, NAAT NEGATIVE (NEGATIVE) Imaging Data Radiologist's Impression: Abdomen/Pelvis CT 09/12/22 13:[address] WITHOUT CONTRAST CT DOSE: 1457.45 mGy.cm HISTORY: back pain flank pain ro kidney stones TECHNIQUE: Multiaxial CT images of the abdomen and pelvis were performed without contrast. A dose lowering technique was utilized adhering to the principles of ALARA. COMPARISON STUDY: Abdomen and pelvis CT 07/13/2021. FINDINGS: A few tree-in-bud nodular opacities again noted within the lung bases suggestive of a mild chronic bronchiolitis. This is similar to the prior study. No pneumoperitoneum. No pneumatosis. Slight increased density within the visualized osseous structures suggestive of renal osteodystrophy. No acute fractures identified. Cholecystectomy. Moderate to severe intra and extra hepatic bile duct dilatation which has progressed. No hepatic or splenic masses. The spleen remains at the upper limits of normal for size. Normal pancreas. Stable 4 mm right adrenal gland nodule. Normal left kidney. Right renal hypodense lesion remains stable and favors a cyst. There are few scattered punctate calcifications within the atrophic ramona kidneys. These may represent a combination of cortical calcifications and renal calculi. No ureteral calculi. No hydronephrosis within the ramona kidneys. No retroperitoneal lymphadenopathy. Calcified plaque within the normal caliber abdominal aorta. No pelvic lymphadenopathy or pelvic free fluid. This moderate bladder wall thickening with adjacent fat screening. There is mild perinephric edema within the right lower quadrant transplant. Therefore, this could represent pyelonephritis of the right lower quadrant renal transplant. Suboptimal evaluation for bowel pathology due to the lack of intravenous and oral contrast. However, there is no definite bowel wall thickening or obstruction. Colonic diverticulosis. No evidence for acute diverticulitis. Prior appendectomy. There is a 2.5 cm hypodense nodule on image 73 located between the left hepatic lobe and stomach. This is similar to the prior study. IMPRESSION: 1. Interval development of moderate to severe intra and extrahepatic bile duct d ilatation. This raises the possibility of an occult obstructing lesion, stone, or stricture. Follow-up ultrasound can check consultation recommended for further evaluation. 2. Bladder wall thickening with adjacent fat stranding consistent with a cystitis. There is also mild perinephric edema within the right lower quadrant renal transplant. This could represent an associated pyelonephritis. Recommend correlation with urinalysis. 3. Redemonstration of the indeterminate 2.5 cm nodule located between the left hepatic lobe and stomach. This could represent an exophytic gastric lesion or hepatic lesion. Follow-up nonemergent liver MRI recommended for further evaluation. 4. Additional findings as described above. ACT 112: Positive. There are findings on this exam that require communication between the performing entity and the patient following Patient Test Result Information Act ([place] Act 112) guidelines. Electronically signed by: Jesus Alberto Hernández M.D. 09/12/2022 2:49 PM Gallbladder Ultrasound 09/12/22 14:59 US gallbladder CLINICAL HISTORY: R flank pain RUQ pain biliary ductal dilatation TECHNIQUE: Multiple real-time sonographic images of the right upper quadrant were obtained. Comparison: None available at the time of this dictation. FINDINGS: The liver is diffusely homogenous with normal contour and echogenicity. Redemonstration of a extrahepatic mass lesion measuring 3.1 x 1.7 x 2.3 cm. Intrahepatic ducts are seen.. Patient is status post cholecystectomy. The common duct measures 1.9 cm in diameter at the level of the hepatic artery. Pancreatic duct measures 0.5 cm. The right kidney is atrophic in appearance. No evidence of hydronephrosis. A simple cyst is seen in the upper pole. No ascites or free fluid is seen in Villalobos's pouch. IMPRESSION: 1. Dilation of the common bile duct and intrahepatic bile ducts again seen. Pancreatic ductal prominence similar to prior exam. 2. Atrophic kidney. 3. Redemonstration of indeterminate nodule adjacent to the stomach. ACT 112: Negative or not required by law. Electronically signed by: Phill Loomis M.D. 09/12/2022 4:11 PM ECG Data Attestation: I personally reviewed and interpreted this ECG as follows: Additional Comments: Sinus rhythm with rate of 67. VA 204 QRS [address] elevation or ST depression. [facility] Narrative 1342: The patient was evaluated in room C4. A complete history and physical exam was performed Cardiac monitoring: An order was placed for continuous cardiac monitoring. The monitor shows a rate of 70 with sinus rhythm interpreted by me 1718: Vital signs stable. Labs are within normal limits with exception of a creatinine which is at baseline. No leukocytosis. No transaminitis. Lipase within normal limits. Imaging showed moderate to severe intra and extrahepatic bile duct dilatation, Common bile duct was dilated as well as pancreatic duct. There is bladder wall thickening with adjacent fat stranding and mild perinephric edema within the right lower quadrant renal transplant. Patient be treated with Rocephin and admitted to the [facility] hospitalist team. [facility] hospitalist team aware Impression & Plan Abdominal pain, Dilated bile duct, Pyelonephritis Discharge Plan Visit Data Chief Complaint: Abdominal Pain Stated Complaint: ABDOMINAL PAIN, BACK/RIB PAIN, MOLE ON RT SHOULDER ED Provider: Gume Walker Discharge Problem: Abdominal pain, Dilated bile duct, Pyelonephritis Patient Disposition: Admitted As Inpatient Forms Stand Alone Forms: My [facility] Prescriptions Prescriptions: No Action omeprazole 40 mg Capsule,Delayed Release(Dr/Ec) 40 mg PO DAILYBB aspirin 81 mg Tablet,Chewable 81 mg PO QAM gabapentin 100 mg Capsule 100 mg PO BID fluticasone propionate [Flonase Allergy Relief] 50 mcg/actuation [place],Suspension 1 spray INTRANASAL DAILY PRN (Reason: Allergy Symptoms) magnesium oxide 400 mg magnesium Tablet 400 mg PO QAM ondansetron HCl 8 mg Tablet 8 mg PO TID PRN (Reason: PRIOR TO CHEMOTHERAPY MEDS) amlodipine 5 mg Tablet 5 mg PO QAM prochlorperazine maleate [Compazine] 10 mg Tablet 10 mg PO Q6H PRN (Reason: NAUSEA/VOMITING) triamcinolone acetonide 0.1 % Cream 1 applic TOPICAL 2XWK PRN (Reason: Skin Irritation) levothyroxine 100 mcg Tablet 100 mcg PO DAILYBB [place] Caps 1 mg Capsule 1 cap PO DAILY Rx Instructions: TAKE AFTER DIALYSIS TREATMENT metoprolol tartrate 25 mg Tablet 37.5 mg PO BID Rx Instructions: TAKES 1 1/2 TABS BID calcium acetate(phosphat bind) 667 mg Capsule 1,334 mg PO TIDM Qty: 180 0RF Lokelma 10 gram Powder In Packet 10 g PO DAILY@1500 Qty: 30 0RF calcium carbonate [Tums] 200 mg calcium (500 mg) Tablet,Chewable 1,000 mg PO QID Qty: 600 0RF oxycodone-acetaminophen 2.5-325 mg Tablet 1 tab PO Q8H PRN (Reason: pain,severe) calcitriol 0.5 mcg Capsule 0.5 mcg PO TID Referrals Referrals: Jameel Reyna DO [Primary Care Provider] - Abdominal pain Qualifiers: Abdominal location: unspecified location Qualified Code(s): R10.9 - Unspecified abdominal pain
[2022-09-12 18:01] LABS: Appearance Urine Clear (Clear); Bacteria Urine Automated Negative (Negative); Bilirubin Urine Negative (Negative); Blood Urine Trace (Negative); Cast Urine Automated 0 /lpf (0-5); Color Urine Yellow; Glucose Urine UA Trace (Negative); Ketones Urine Trace (Negative); Leukocyte Esterase Urine Negative (Negative); Nitrite Urine Negative (Negative); RBC Urine Automated 0-4 /hpf (0-4); Specific Gravity Urine 1.007 (1.000-1.030); Urobilinogen Urine Negative (Negative)
[2022-09-12 18:18] LABS: Protein Urine 3+ (Negative)
[2022-09-12] MEDS ORDERED: ACETAMINOPHEN 325 MG TAB PO PRN (20:17)
[2022-09-12] MEDS ORDERED: FLUTICASONE PROPIONATE NA SPR 16 GM BTL NAE PRN (20:17)
[2022-09-12] MEDS ORDERED: PIPERACILLIN/TAZOBACTAM 4.5 GM in DEXTROSE 5% 100 ML IV STA (20:19)
--- NOTE | 2022-09-12 20:35 | History & Physical Report ---
Date of Service September 12, 2022 Assessment & Plan (1) Dilated bile duct: Plan: s/p ccy, explained to pt even though the gallbladder is removed part of the duct remains and can still generate stones/sludge f/u HIDA scan, will likely need to follow with MRCP vs ERCP GI consulted, appreciate input, will follow recs continue with analgesia, antiemetics Present on Admission?: Yes (2) Abdominal pain: Plan: d/t biliary duct dilatation, see above possibly with cystitis and pyelonephritis as well based on imaging f/u urine studies continue analgesia continue with zosyn to cover GI/ infections Present on Admission?: Yes (3) Pyelonephritis: Plan: possibly based on imaging continue zosyn, f/u UA UCx (4) ESRD (end stage renal disease) on dialysis: Plan: continue HD per nephrology Present on Admission?: Yes (5) S/P thyroidectomy: (6) Essential hypertension: Plan: continue home regimen poorly controlled, likely d/t pain/anxiety additional amlodipine x 1 tonight, if needed increase to 10 mg daily Present on Admission?: Yes Admission and Anticipated Discharge Date Admission Date: September 12, 2022 History of Present Illness Chief Complaint: abdominal pain Primary Care Provider: Jameel Reyna DO Ms. Bernal is a 66 year old female with pmhx (per chart and pt) of ESRD (on HD //), failed renal transplant, HTN, HLP, COPD, pHTN, sleep apnea, GERD, GIST, hypothyroidism s/p thyroidectomy, migraine VACA, mood disorder and multiple abdominal surgeries. She presented d/t abdominal and back pain. She was unable to tolerate a full dialysis run. She is found to have intrahepatic and extrahepatic biliary duct dilatation on imaging. Imaging also revealed findings consistent with cystitis and pyelonephritis. Ms. Bernal reports about 3 weeks of abdominal and back pain, at times with burning epigastric pain. Pain has been occurring more and more frequently without any clear inciting, exacerbating, or alleviating factors. Pain comes and goes spontaneously. At times it resolves for up to a few hours but then recurs. At worst pain is 10/10 but is currently 0/10 after receiving Morphine. This is associated with early satiety, poor oral intake, bloating, and severe malodorous flatus. She suffers from both constipation (OIC) and diarrhea. It is not clear if the diarrhea is related to bowel regimen for constipation. This is further associated with mild nausea (no vomiting), malaise, fatigue, and generalized weakness. She denies f/c, CP/pressure, sob, dyspnea, dysuria, urinary urgency or frequency, hematuria, melena, hematochezia, or BRBRP. ED course: VS notable for BP in the 170s/90s and RR in the low 20s ORA. B/W notable for Na 133, Cl 88, BUN 28, Cr 7.39 (in the s/o incomplete HD), h/h 10.4/30.4, remaining CMP and CBC are unimpressive. CT A/P and RUQ US revealed Dilation of the common bile duct and intrahepatic bile ducts, findings consistent with possible cystitis/pyelonephritis, and (known) nodule located between the left hepatic lobe and stomach.' Pt given Ceftriaxone and Morphine, admitted to hospitalist service. We will change abx to Zosyn. Allergies Allergy/AdvReac Type Severity Reaction Status Date / Time levofloxacin AdvReac Severe C-DIFF Verified 08/16/22 09:57 Home Medications Medication Instructions Recorded Confirmed Type aspirin 81 mg chewable tablet 81 mg PO QAM 04/23/18 09/12/22 History fluticasone propionate 50 1 spray intranasal DAILY PRN 04/23/18 09/12/22 History mcg/actuation nasal Allergy Symptoms spray,suspension (Flonase Allergy Relief) gabapentin 100 mg capsule 100 mg PO BID 04/23/18 09/12/22 History omeprazole 40 mg capsule,delayed 40 mg PO DAILYBB 04/23/18 09/12/22 History release magnesium oxide 400 mg PO QAM 03/08/22 09/12/22 History amlodipine 5 mg tablet 5 mg PO QAM 07/21/22 09/12/22 History levothyroxine 100 mcg tablet 100 mcg PO DAILYBB 07/21/22 09/12/22 History metoprolol tartrate 25 mg tablet 37.5 mg PO BID 07/21/22 09/12/22 History ondansetron HCl 8 mg tablet 8 mg PO TID PRN PRIOR TO 07/21/22 09/12/22 History CHEMOTHERAPY MEDS prochlorperazine maleate 10 mg 10 mg PO Q6H PRN NAUSEA/VOMITING 07/21/22 09/12/22 History tablet (Compazine) triamcinolone acetonide 0.1 % 1 applic topical 2XWK PRN Skin 07/21/22 09/12/22 History topical cream Irritation vitamin B complex and vitamin C 1 cap PO DAILY 07/21/22 09/12/22 History no.20-folic acid 1 mg capsule (Dousman Caps) calcium acetate(phosphat bind) 667 1,334 mg PO TIDM #180 caps 07/28/22 09/12/22 Rx mg capsule calcium carbonate 200 mg calcium 1,000 mg PO QID #600 tabs 07/28/22 09/12/22 Rx (500 mg) chewable tablet (Tums) sodium zirconium cyclosilicate 10 10 g PO DAILY@1500 #30 ea 07/28/22 09/12/22 Rx gram oral powder packet (Lokelma) calcitriol 0.5 mcg capsule 0.5 mcg PO TID 09/12/22 09/12/22 History oxycodone-acetaminophen 2.5 mg-325 1 tab PO Q8H PRN pain,severe 09/12/22 09/12/22 History mg tablet Past Med/Surg History Medical History Abnormal stress test 01/2021 (reversible anterior and basal lateral defect consistent with ischemia vs soft tissue attenuation artifact) per [facility] cardio records, plan for medical management and consideration for DSE at 03/2021 appt; final determination per [facility] cardio is recommendation for diagnostic cardiac catheterization not yet scheduled by patient; now advised risk > benefit per [facility] cardio Anemia in chronic kidney disease AV fistula left upper arm (functioning), also one to left wrist, but does not function properly Chronic back pain COPD (chronic obstructive pulmonary disease) stable per pt, no longer using supplemental oxygen-states home pulse ox readings are consistently 97% or greater-pt states provider is aware COVID-19 01/29/22-not hospitalized-symptoms fully resolved ESRD (end stage renal disease) on dialysis MWF at [facility] in [place] 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 At least 1 of the peritoneal dialysis catheters had to be removed because of peritonitis..." HLD (hyperlipidemia) HTN (hypertension) controlled, stable per pt Hypocalcemia Hypothyroidism supplementation d/c by PCP d/t low TSH with elevated free T4 and T3, patient symptomatic-has not yet started advised beta darrell by PCP, + thyroid stimulating immunoglobulin and abnormal thyroid biopsy 12/02; pt was lost to f/u with [facility] endocrinology, now scheduled 05/2022 Limb alert care status left arm Migraine Neck pain h/o UE paresthesias; pt states neck pain and upper extremity abnormal symptoms fully resolved Palpitations on occasion-denies associated dizziness or lightheadedness-follows with [facility] cardio and PCP, notable current thyroid dysfunction; [facility] cardio advised 4 week or prn f/u-pt d/c initial beta darrell rx by cardio, did not initiate recommend alternate beta darrell from PCP yet Port-A-Cath in place Pulmonary hypertension Secondary hyperparathyroidism Sleep apnea severe per [facility] records, no device currently > has apt soon to see about getting back on device Thyroid nodule abnormal biopsy 12/02 with concerning results per [facility] endo, + thyroid stimulating immunoglobulin; pt lost to f/u; now has [facility] endocrinology appointment 05/2022 Surgical History H/O cystoscopy History of appendectomy History of bilateral tubal ligation History of section x1 History of cholecystectomy History of colonoscopy History of esophagogastroduodenoscopy (EGD) History of kidney transplant 08/28/2016 @ [facility] [place] (right side) functions at only 10%--d/t ESRD > follows with Dr. Roldan History of laparoscopy History of surgery hx perm cath insertion & removal History of tonsillectomy and adenoidectomy History of tooth extraction History of wisdom tooth extraction Family History Grandmother (Paternal) Family history of diabetes mellitus Grandmother (Maternal) Family history of diabetes mellitus Family hx of colon cancer Mother Family hx of colon cancer Other No family history of adverse response to anesthesia Social History Smoking Status: Former smoker Tobacco Type: Cigarettes Second Hand Exposure: No; Do You Dip or Chew Tobacco: No; Hx Alcohol Use: No Hx Substance Use: No Preferred Language: Chilean Communication Ability: Effective Dog Daycare Provider Required: No Beliefs That Will Affect Care: None marital status: Current Living Situation: Spouse Current Living Situation Comment: Lives with and daughter and her family How many Children do You have: 1 Feels Safe at Home: Yes Assistive Devices: None Review of Systems Review of Systems: All systems reviewed & are unremarkable except as noted in HPI & below Physical Exam Physical Exam: General: NAD, obese, well nourished, non-toxic appearing Head: NC AT Eyes: anicteric sclera, no conjunctival injection Nose: nares patent Mouth: MMM Neck: supple, trachea midline CV: RRR S1 S2 Pulm: CTA b/l Abd/GI: + BS, soft, NT, ND, no guarding Ext: no pretibial edema MSK: normal bulk and tone Neuro: no focal deficits, pt is alert and oriented but slow to answer (d/t morphine), moving all 4 extremities symmetrically Psych: pleasant mood and affect Skin: visible skin is warm, dry, and without rash. Pt not fully undressed for exam. Results & Data Results & Data Vital Signs (Past 12 Hours) Vital Signs Temp Pulse Resp BP Pulse Ox O2 Del Method O2 Flow Rate 09/12/22 19:30 67 18 159/93 H 94 Nasal Cannula 2 09/12/22 17:43 70 23 93 09/12/22 17:43 179/90 H 09/12/22 17:40 94 09/12/22 17:00 72 23 90 09/12/22 17:00 175/91 H 09/12/22 16:30 73 19 94 09/12/22 16:30 161/113 H 09/12/22 16:11 71 22 92 09/12/22 16:11 169/92 H 09/12/22 16:11 70 09/12/22 11:55 36.6 C 70 20 143/70 H 94 Room Air Laboratory Results Short CBC 09/12/22 Range/Units 12:43 WBC 5.66 (4.8-10.8) K/ul Hgb 10.4 L (12.0-16.0) g/dl Hct 30.4 L (37.0-47.0) % Plt Count 152 (130-400) K/uL BMP 09/12/22 12:43 Sodium 133 L Potassium 3.8 Chloride 88 L Carbon Dioxide 34 H BUN 28 H Creatinine 7.39 H* Glucose 93 Calcium 10.7 H Liver Function 09/12/22 Range/Units 12:43 Total Bilirubin 0.6 (0.2-1.0) mg/dl AST 24 (13-39) U/L ALT 24 (7-52) U/L Alkaline Phosphatase 107 H (34-104) U/L Albumin 4.2 (3.4-5.0) gm/dl Urine 09/12/22 09/12/22 Range/Units 17:40 Unknown Urine Color Yellow Cancelled Urine Appearance Clear Cancelled (Clear) Urine pH 8.0 H Cancelled (4.5-7.5) Ur Specific [place] 1.007 Cancelled (1.000-1.030) Urine Protein 3+ H Cancelled (Negative) Urine Glucose (UA) Trace H Cancelled (Negative) Diagnostic Findings Abdomen/Pelvis CT 09/12/22 13:[address] WITHOUT CONTRAST HISTORY: back pain flank pain ro kidney stones COMPARISON STUDY: Abdomen and pelvis CT 07/13/2021. FINDINGS: A few tree-in-bud nodular opacities again noted within the lung bases suggestive of a mild chronic bronchiolitis. This is similar to the prior study. No pneumoperitoneum. No pneumatosis. Slight increased density within the visualized osseous structures suggestive of renal osteodystrophy. No acute fractures identified. Cholecystectomy. Moderate to severe intra and extra hepatic bile duct dilatation which has progressed. No hepatic or splenic masses. The spleen remains at the upper limits of normal for size. Normal pancreas. Stable 4 mm right adrenal gland nodule. Normal left kidney. Right renal hypodense lesion remains stable and favors a cyst. There are few scattered punctate calcifications within the atrophic sun'aq kidneys. These may represent a combination of cortical calcifications and renal calculi. No ureteral calculi. No hydronephrosis within the sun'aq kidneys. No retroperitoneal lymphadenopathy. Calcified plaque within the normal caliber abdominal aorta. No pelvic lymphadenopathy or pelvic free fluid. This moderate bladder wall thickening with adjacent fat screening. There is mild perinephric edema within the right lower quadrant transplant. Therefore, this could represent pyelonephritis of the right lower quadrant renal transplant. Suboptimal evaluation for bowel pathology due to the lack of intravenous and oral contrast. However, there is no definite bowel wall thickening or obstruction. Colonic diverticulosis. No evidence for acute diverticulitis. Prior appendectomy. There is a 2.5 cm hypodense nodule on image 73 located between the left hepatic lobe and stomach. This is similar to the prior study. IMPRESSION: 1. Interval development of moderate to severe intra and extrahepatic bile duct dilatation. This raises the possibility of an occult obstructing lesion, stone, or stricture. Follow-up ultrasound can check consultation recommended for further evaluation. 2. Bladder wall thickening with adjacent fat stranding consistent with a cystitis. There is also mild perinephric edema within the right lower quadrant renal transplant. This could represent an associated pyelonephritis. Recommend correlation with urinalysis. 3. Redemonstration of the indeterminate 2.5 cm nodule located between the left hepatic lobe and stomach. This could represent an exophytic gastric lesion or hepatic lesion. Follow-up nonemergent liver MRI recommended for further evaluation. 4. Additional findings as described above. Electronically signed by: Jesus Alberto Hernández M.D. 09/12/2022 2:49 PM Gallbladder Ultrasound 09/12/22 14:59 US gallbladder CLINICAL HISTORY: R flank pain RUQ pain biliary ductal dilatation Comparison: None available at the time of this dictation. FINDINGS: The liver is diffusely homogenous with normal contour and echogenicity. Redemonstration of a extrahepatic mass lesion measuring 3.1 x 1.7 x 2.3 cm. Intrahepatic ducts are seen.. Patient is status post cholecystectomy. The common duct measures 1.9 cm in diameter at the level of the hepatic artery. Pancreatic duct measures 0.5 cm. The right kidney is atrophic in appearance. No evidence of hydronephrosis. A simple cyst is seen in the upper pole. No ascites or free fluid is seen in Villalobos's pouch. IMPRESSION: 1. Dilation of the common bile duct and intrahepatic bile ducts again seen. Pa ncreatic ductal prominence similar to prior exam. 2. Atrophic kidney. 3. Redemonstration of indeterminate nodule adjacent to the stomach. Electronically signed by: Phill Loomis M.D. 09/12/2022 4:11 PM Code Status & VTE Plan Code Status Full VTE Prophylaxis Plan VTE Prophylaxis will be ordered: Yes (2) Abdominal pain Abdominal location: unspecified location Qualified Code(s): R10.9 - Unspecified abdominal pain
[2022-09-12] MEDS ORDERED: amLODIPine BESYLATE 5 MG TAB PO ONE (20:44)
[2022-09-12] MEDS: ONDANSETRON INJ 2 MG/ML 2 ML VIAL IV PRN (20:44)
[2022-09-12] MEDS: METOPROLOL TARTRATE 25 MG TAB PO SCH (21:28)
[2022-09-12] MEDS: HEPARIN SOD 5,000 UNIT/0.5 ML VIAL SQ SCH (21:28)
[2022-09-12] MEDS: GABAPENTIN 100 MG CAP PO SCH (21:29)
[2022-09-12] MEDS: CALCITRIOL 0.25 MCG CAPSULE PO SCH (21:29)
--- NOTE | 2022-09-13 00:27 | Magnetic Resonance Report ---
Exam(s): MRI MRCP EXAM: MR Abdomen Without Intravenous Contrast, MRCP Protocol CLINICAL HISTORY: Reason for exam: bile duct dilation. TECHNIQUE: Multiplanar magnetic resonance images of the abdomen without intravenous contrast using MRCP protocol. COMPARISON: Ultrasound and CT scan from September 12, 2022 FINDINGS: Bile ducts: There is diffuse biliary duct dilation. The common hepatic duct measures 1.9 cm. The common bile duct measures 1.6 cm. There is a relatively abrupt tapering distally. No choledocholithiasis is identified. Gallbladder: Unremarkable. No stones. Liver: The liver is mildly enlarged is 18.2 cm craniocaudad. No focal liver mass lesion is seen. Pancreas: The high-resolution images are slightly blurred by motion. No discrete pancreatic head mass is identified. Consider endoscopic ultrasound, if available, to exclude occult pancreatic head mass versus stricture. The pancreatic duct is slightly dilated measuring 4 mm. Spleen: The spleen measures 11.2 cm. Adrenals: Unremarkable. No mass. Kidneys and ureters: The kidneys are atrophic. There is a 3.2 cm simple cyst extending off the upper pole the right kidney. No follow-up is required. No hydronephrosis. Stomach and bowel: Unremarkable. No obstruction. IMPRESSION: 1. There is diffuse biliary duct dilation. The common hepatic duct measures 1.9 cm. The common bile duct measures 1.6 cm. There is a relatively abrupt tapering distally. No choledocholithiasis is identified. 2. The pancreatic duct is slightly dilated measuring 4 mm. 3. The high-resolution images are slightly blurred by motion. No discrete pancreatic head mass is identified. Consider endoscopic ultrasound, if available, to exclude occult pancreatic head mass versus stricture. Electronically signed by: Doroteo Araujo MD 09/13/22 00:26 AM
[2022-09-13] MEDS: PIPERACILLIN/TAZOBACTAM 4.5 GM in DEXTROSE 5% 100 ML IV SCH ×2 (02:29→13:47)
[2022-09-13] MEDS: ONDANSETRON INJ 2 MG/ML 2 ML VIAL IV PRN (04:26)
[2022-09-13] MEDS: HEPARIN SOD 5,000 UNIT/0.5 ML VIAL SQ SCH ×3 (05:54→21:39)
[2022-09-13] MEDS: PANTOprazole 40 MG TAB PO SCH (05:54)
[2022-09-13] MEDS: LEVOTHYROXINE SODIUM 100 MCG TABLET PO SCH (05:54)
[2022-09-13 06:47] LABS: Basophils # (auto) 0.02 K/uL (0-0.2); Basophils % (auto) 0.4 %; Eosinophils # (auto) 0.23 K/uL (0-0.50); Eosinophils % (auto) 4.5 %; Hematocrit (blood only) 29.7 % (37.0-47.0); Immature Granulocytes # (auto) 0.01 K/uL (0.01-0.20); Immature Granulocytes % (auto) 0.2 %; Lymphocytes # (auto) 1.19 K/uL (1.2-3.4); Lymphocytes % (auto) 23.2 %; Mean Corpuscular Hemoglobin 30.4 pg (25.0-34.0); Mean Corpuscular Hgb Conc 33.7 g/dL (32.0-36.0); Mean Corpuscular Volume 90.3 fL (80.0-100.0); Mean Platelet Volume 8.9 fL (9.4-12.4); Monocytes # (auto) 0.82 K/uL (0.11-0.59); Neutrophils # (auto) 2.85 K/uL (1.40-6.50); Neutrophils % (auto) 55.7 %; Platelet Count 115 K/uL (130-400); RDW Coefficient of Variation 13.5 % (11.5-14.5); RDW Standard Deviation 44.2 fL (36.4-46.3); Red Blood Count 3.29 M/uL (4.20-5.40); White Blood Count 5.12 K/ul (4.8-10.8)
[2022-09-13 07:23] LABS: Albumin Globulin Ratio 1.4 (0.9-2); Albumin Level 3.6 gm/dl (3.4-5.0); Bilirubin,Total 0.5 mg/dl (0.2-1.0); Calcium 9.7 mg/dl (8.6-10.3); Creatinine Clr Calc Pharmacy 7.3 ml/min; Est GFR (Non-African American) 4.3 ml/min; Globulin 2.5 gm/dl (2.5-4.0); Magnesium 2.6 mg/dl (1.7-2.4); Potassium 3.9 mmol/L (3.5-5.1); Total Protein 6.1 gm/dl (6.0-8.3)
[2022-09-13] MEDS: METOPROLOL TARTRATE 25 MG TAB PO SCH ×2 (08:12→21:40)
[2022-09-13] MEDS: GABAPENTIN 100 MG CAP PO SCH ×2 (08:12→21:40)
[2022-09-13] MEDS: CALCITRIOL 0.25 MCG CAPSULE PO SCH ×3 (08:12→21:40)
[2022-09-13] MEDS: NEPHROCAPS PO SCH (08:15)
[2022-09-13] MEDS: MAGNESIUM OXIDE 400 MG TAB PO SCH (08:15)
[2022-09-13] MEDS: amLODIPine BESYLATE 5 MG TAB PO SCH (08:15)
[2022-09-13] MEDS: ASPIRIN 81 MG ECTAB PO SCH (08:16)
[2022-09-13] MEDS: CALCIUM ACETATE 667 MG CAP/TAB PO SCH ×3 (08:52→16:57)
[2022-09-13 08:58] LABS: Phosphorus 6.1 mg/dl (2.5-4.9)
--- NOTE | 2022-09-13 09:46 | Nephrology Consultation ---
Date of Consultation September 13, 2022 Assessment & Plan (1) ESRD (end stage renal disease) on dialysis: Her normal HD days are MWF, She was last dialysed on . -lytes and Volume status acceptable. - no urgent need for HD today. - She will be dialysed for 3.5 hr with target of of 2.5 lit and 2 k bath tmr. - (2) Abdominal pain: d/t biliary duct dilatation and possibly with cystitis and pyelonephritis continue analgesia continue with renally dosed zosyn until cultures avaliable. (3) S/P parathyroidectomy: - continue on all the calcium replacement ( calcitriol, calcium acetate,calcium carbonate) at the moment. - calcium needs to watched if the binders are stopped to pain, replace it IV if needed, we will also used high calcium bath if needed. (4) S/P thyroidectomy: History of Present Illness Reason for Consultation: ESRD on HD MWF Attending Physician: Lexx Peralta MD History of Present Illness 66 year old female with pmhx of ESRD (on HD M// , Ronaldo Richardson), failed renal transplant who presented with abdominal and back pain.. She is found to h ave intrahepatic and extrahepatic biliary duct dilatation on imaging. Imaging also revealed findings consistent with cystitis and pyelonephritis. Other significant PMH-HTN, HLP, COPD, pHTN, sleep apnea, GERD, GIST, hypothyroidism s/p thyroidectomy, migraine VACA, mood disorder and multiple abdominal surgeries,total thyroidectomy and parathyroidectomy with a 3.5 gland excision on 06/28/2022 as well as a thymusectomy by [facility]. On review she c/o abdominal discomfort which is better since admission.Denies CP/pressure, sob, dyspnea, dysuria, urinary urgency or frequency, hematuria.She was last dialysed on monday and completed full 3.5 hr treatment Pt given Ceftriaxone and Morphine and admitted to hospitalist service. Allergies Allergy/AdvReac Type Severity Reaction Status Date / Time levofloxacin AdvReac Severe C-DIFF Verified 08/16/22 09:57 Home Medications Medication Instructions Recorded Confirmed Type aspirin 81 mg chewable tablet 81 mg PO QAM 04/23/18 09/12/22 History fluticasone propionate 50 1 spray intranasal DAILY PRN 04/23/18 09/12/22 History mcg/actuation nasal Allergy Symptoms spray,suspension (Flonase Allergy Relief) gabapentin 100 mg capsule 100 mg PO BID 04/23/18 09/12/22 History omeprazole 40 mg capsule,delayed 40 mg PO DAILYBB 04/23/18 09/12/22 History release magnesium oxide 400 mg PO QAM 03/08/22 09/12/22 History amlodipine 5 mg tablet 5 mg PO QAM 07/21/22 09/12/22 History levothyroxine 100 mcg tablet 100 mcg PO DAILYBB 07/21/22 09/12/22 History metoprolol tartrate 25 mg tablet 37.5 mg PO BID 07/21/22 09/12/22 History ondansetron HCl 8 mg tablet 8 mg PO TID PRN PRIOR TO 07/21/22 09/12/22 History CHEMOTHERAPY MEDS prochlorperazine maleate 10 mg 10 mg PO Q6H PRN NAUSEA/VOMITING 07/21/22 09/12/22 History tablet (Compazine) triamcinolone acetonide 0.1 % 1 applic topical 2XWK PRN Skin 07/21/22 09/12/22 History topical cream Irritation vitamin B complex and vitamin C 1 cap PO DAILY 07/21/22 09/12/22 History no.20-folic acid 1 mg capsule ([place]ifax Caps) calcium acetate(phosphat bind) 667 1,334 mg PO TIDM #180 caps 07/28/22 09/12/22 Rx mg capsule calcium carbonate 200 mg calcium 1,000 mg PO QID #600 tabs 07/28/22 09/12/22 Rx (500 mg) chewable tablet (Tums) sodium zirconium cyclosilicate 10 10 g PO DAILY@1500 #30 ea 07/28/22 09/12/22 Rx gram oral powder packet (Lokelma) calcitriol 0.5 mcg capsule 0.5 mcg PO TID 09/12/22 09/12/22 History oxycodone-acetaminophen 2.5 mg-325 1 tab PO Q8H PRN pain,severe 09/12/22 09/12/22 History mg tablet Patient History Medical History Abnormal stress test 01/2021 (reversible anterior and basal lateral defect consistent with ischemia vs soft tissue attenuation artifact) per [facility] cardio records, plan for medical management and consideration for DSE at 03/2021 appt; final determination per [facility] cardio is recommendation for diagnostic cardiac ca theterization not yet scheduled by patient; now advised risk > benefit per [facility] cardio Anemia in chronic kidney disease AV fistula left upper arm (functioning), also one to left wrist, but does not function properly Chronic back pain COPD (chronic obstructive pulmonary disease) stable per pt, no longer using supplemental oxygen-states home pulse ox readings are consistently 97% or greater-pt states provider is aware COVID-19 01/29/22-not hospitalized-symptoms fully resolved ESRD (end stage renal disease) on dialysis MWF at [facility] in [place] 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 At least 1 of the peritoneal dialysis catheters had to be removed because of peritonitis..." HLD (hyperlipidemia) HTN (hypertension) controlled, stable per pt Hypocalcemia Hypothyroidism supplementation d/c by PCP d/t low TSH with elevated free T4 and T3, patient symptomatic-has not yet started advised beta darrell by PCP, + thyroid stimul ating immunoglobulin and abnormal thyroid biopsy 12/02; pt was lost to f/u with [facility] endocrinology, now scheduled 05/2022 Limb alert care status left arm Migraine Neck pain h/o UE paresthesias; pt states neck pain and upper extremity abnormal symptoms fully resolved Palpitations on occasion-denies associated dizziness or lightheadedness-follows with [facility] cardio and PCP, notable current thyroid dysfunction; [facility] cardio advised 4 week or prn f/u-pt d/c initial beta darrell rx by cardio, did not initiate recommend alternate beta darrell from PCP yet Port-A-Cath in place Pulmonary hypertension Secondary hyperparathyroidism Sleep apnea severe per [facility] records, no device currently > has apt soon to see about getting back on device Thyroid nodule abnormal biopsy 12/02 with concerning results per [facility] endo, + thyroid stimulating immunoglobulin; pt lost to f/u; now has [facility] endocrinology appointment 05/2022 Surgical History H/O cystoscopy History of appendectomy History of bilateral tubal ligation History of section x1 History of cholecystectomy History of colonoscopy History of esophagogastroduodenoscopy (EGD) History of kidney transplant 08/28/2016 @ [facility] [place] (right side) functions at only 10%--d/t ESRD > follows with Dr. Roldan History of laparoscopy History of surgery hx perm cath insertion & removal History of tonsillectomy and adenoidectomy History of tooth extraction History of wisdom tooth extraction Family History Grandmother (Paternal) Family history of diabetes mellitus Grandmother (Maternal) Family history of diabetes mellitus Family hx of colon cancer Mother Family hx of colon cancer Other No family history of adverse response to anesthesia Social History Smoking Status: Former smoker Tobacco Type: Cigarettes Second Hand Exposure: No; Do You Dip or Chew Tobacco: No; Hx Alcohol Use: No Hx Substance Use: No Preferred Language: Pakistani Communication Ability: Effective Physician Practice Manager Required: No Beliefs That Will Affect Care: None marital status: Current Living Situation: Spouse Current Living Situation Comment: lives at home w spouse How many Children do You have: 1 Other Information That Helps Us Care for You: No Feels Safe at Home: Yes Safety Concerns: Feels Safe At This Time Assistive Devices: Glasses, Oxygen - Continuous and Walker Review of Systems Review of Systems: All systems reviewed & are unremarkable except as noted in HPI & below Physical Exam Physical Exam: GENERAL: A middle-aged white female who is not in any overt respiratory distress.. HEENT: Mucous membranes are moist. NECK: Supple. No jugular venous distention. CHEST: Bilaterally clear to auscultation. CARDIOVASCULAR: S1 and S2, regular. ABDOMEN: Soft,generalized tenderness. EXTREMITIES: Show trace edema Results & Data Vital Signs (Past 12 Hours) Vital Signs Temp Pulse Pulse Resp BP Pulse Ox O2 Del Method 09/13/22 07:16 36.5 C 63 20 139/72 92 Room Air 09/13/22 03:05 37 C 61 18 156/81 H 96 Nasal Cannula 09/13/22 00:34 64 09/12/22 22:00 36.5 C 63 20 161/78 H 97 Nasal Cannula O2 Flow Rate 09/13/22 07:16 09/13/22 03:05 2 09/13/22 00:34 09/12/22 22:00 2 Laboratory Results 09/13/22 06:27 09/13/22 06:27 (2) Abdominal pain Abdominal location: unspecified location Qualified Code(s): R10.9 - Unspecified abdominal pain
--- NOTE | 2022-09-13 10:10 | Gastrointestinal Consultation ---
Date of Consultation September 13, 2022 Assessment & Plan (1) Abdominal pain: Isolated episode of cramping abdominal pain. Would not embark on workup unless it becomes recurrent. I doubt related to bile duct as LFT's are normal but with rapid dilation of CBD is possible. (2) Dilated bile duct: Significant dilatation of biliary system without mention of dilated bile duct with no mention in July 2021 and only "slightly dilated" on prior CT scan this year. I think she needs EUS +/- ERCP. [facility] will take over tomorrow and decide on timing of procedures. History of Present Illness Reason for Consultation: abdominal pain Attending Physician: Lexx Peralta MD History of Present Illness 66 year old female who had an isolated episode of epigastric cramping abdominal pain while on dialysis. This was "severe" according to her but it resolved and she has had none since. She does have back and flank pains and is being treated for pyelonephritis and a UTI. On CT she was noted to have worsening bile duct dilatation with common hepatic duct at 1.9 cm and CBD at 1.[address] in July 2021 does not mention bile duct dilation. No mention is made of PD. Her LFT's have been normal. She is tolerating diet now. Allergies Allergy/AdvReac Type Severity Reaction Status Date / Time levofloxacin AdvReac Severe C-DIFF Verified 08/16/22 09:57 Home Medications Medication Instructions Recorded Confirmed Type aspirin 81 mg chewable tablet 81 mg PO QAM 04/23/18 09/12/22 History fluticasone propionate 50 1 spray intranasal DAILY PRN 04/23/18 09/12/22 History mcg/actuation nasal Allergy Symptoms spray,suspension (Flonase Allergy Relief) gabapentin 100 mg capsule 100 mg PO BID 04/23/18 09/12/22 History omeprazole 40 mg capsule,delayed 40 mg PO DAILYBB 04/23/18 09/12/22 History release magnesium oxide 400 mg PO QAM 03/08/22 09/12/22 History amlodipine 5 mg tablet 5 mg PO QAM 07/21/22 09/12/22 History levothyroxine 100 mcg tablet 100 mcg PO DAILYBB 07/21/22 09/12/22 History metoprolol tartrate 25 mg tablet 37.5 mg PO BID 07/21/22 09/12/22 History ondansetron HCl 8 mg tablet 8 mg PO TID PRN PRIOR TO 07/21/22 09/12/22 History CHEMOTHERAPY MEDS prochlorperazine maleate 10 mg 10 mg PO Q6H PRN NAUSEA/VOMITING 07/21/22 09/12/22 History tablet (Compazine) triamcinolone acetonide 0.1 % 1 applic topical 2XWK PRN Skin 07/21/22 09/12/22 History topical cream Irritation vitamin B complex and vitamin C 1 cap PO DAILY 07/21/22 09/12/22 History no.20-folic acid 1 mg capsule (Lucas Caps) calcium acetate(phosphat bind) 667 1,334 mg PO TIDM #180 caps 07/28/22 09/12/22 Rx mg capsule calcium carbonate 200 mg calcium 1,000 mg PO QID #600 tabs 07/28/22 09/12/22 Rx (500 mg) chewable tablet (Tums) sodium zirconium cyclosilicate 10 10 g PO DAILY@1500 #30 ea 07/28/22 09/12/22 Rx gram oral powder packet (Lokelma) calcitriol 0.5 mcg capsule 0.5 mcg PO TID 09/12/22 09/12/22 History oxycodone-acetaminophen 2.5 mg-325 1 tab PO Q8H PRN pain,severe 09/12/22 09/12/22 History mg tablet Patient History Medical History Abnormal stress test 01/2021 (reversible anterior and basal lateral defect consistent with ischemia vs soft tissue attenuation artifact) per [facility] cardio records, plan for medical management and consideration for DSE at 03/2021 appt; final determination per [facility] cardio is recommendation for diagnostic cardiac catheterization not yet scheduled by patient; now advised risk > benefit per [facility] cardio Anemia in chronic kidney disease AV fistula left upper arm (functioning), also one to left wrist, but does not function properly Chronic back pain COPD (chronic obstructive pulmonary disease) stable per pt, no longer using supplemental oxygen-states home pulse ox readings are consistently 97% or greater-pt states provider is aware COVID-19 01/29/22-not hospitalized-symptoms fully resolved ESRD (end stage renal disease) on dialysis MWF at [facility] in [place] 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 At least 1 of the peritoneal dialysis catheters had to be removed because of peritonitis..." HLD (hyperlipidemia) HTN (hypertension) controlled, stable per pt Hypocalcemia Hypothyroidism supplementation d/c by PCP d/t low TSH with elevated free T4 and T3, patient symptomatic-has not yet started advised beta darrell by PCP, + thyroid stimulating immunoglobulin and abnormal thyroid biopsy 12/02; pt was lost to f/u with [facility] endocrinology, now scheduled 05/2022 Limb alert care status left arm Migraine Neck pain h/o UE paresthesias; pt states neck pain and upper extremity abnormal symptoms fully resolved Palpitations on occasion-denies associated dizziness or lightheadedness-follows with [facility] cardio and PCP, notable current thyroid dysfunction; [facility] cardio advised 4 week or prn f/u-pt d/c initial beta darrell rx by cardio, did not initiate recommend alternate beta darrell from PCP yet Port-A-Cath in place Pulmonary hypertension Secondary hyperparathyroidism Sleep apnea severe per [facility] records, no device currently > has apt soon to see about getting back on device Thyroid nodule abnormal biopsy 12/02 with concerning results per [facility] endo, + thyroid stimulating immunoglobulin; pt lost to f/u; now has [facility] endocrinology appointment 05/2022 Surgical History H/O cystoscopy History of appendectomy History of bilateral tubal ligation History of section x1 History of cholecystectomy History of colonoscopy History of esophagogastroduodenoscopy (EGD) History of kidney transplant 08/28/[address] [facility] (right side) functions at only 10%--d/t ESRD > follows with Dr. Roldan History of laparoscopy History of surgery hx perm cath insertion & removal History of tonsillectomy and adenoidectomy History of tooth extraction History of wisdom tooth extraction Family History Grandmother (Paternal) Family history of diabetes mellitus Grandmother (Maternal) Family history of diabetes mellitus Family hx of colon cancer Mother Family hx of colon cancer Other No family history of adverse response to anesthesia Social History Smoking Status: Former smoker Tobacco Type: Cigarettes Second Hand Exposure: No; Do You Dip or Chew Tobacco: No; Hx Alcohol Use: No Hx Substance Use: No Preferred Language: Japanese Communication Ability: Effective Urinalysis Technician Required: No Beliefs That Will Affect Care: None marital status: Current Living Situation: Spouse Current Living Situation Comment: lives at home w spouse How many Children do You have: 1 Other Information That Helps Us Care for You: No Feels Safe at Home: Yes Safety Concerns: Feels Safe At This Time Assistive Devices: Glasses, Oxygen - Continuous and Walker Physical Exam Constitutional: WD/WN, vitals as above no acute distress Eyes: PERRL, conjunctivae normal, anicteric sclerae ENMT: external ear and nose normal, oropharynx normal Neck: trachea midline, no thyromegaly Respiratory: normal respiratory effort, lungs clear to auscultation Cardiovascular: RRR, no murmur, no edema Gastrointestinal (Abdomen): normal bowel sounds, soft, nontender, no hepatosplenomegaly Musculoskeletal: Extremities: no cyanosis and no clubbing Skin: no rashes, warm and dry Neurologic: PERRL, EOMI, accommodation nl, no face palsy, no dysarthria Psychiatric: Orientation: alert and oriented x 3 Results & Data Vital Signs (Past 12 Hours) Vital Signs Temp Pulse Pulse Resp BP Pulse Ox O2 Del Method 09/13/22 07:16 36.5 C 63 20 139/72 92 Room Air 09/13/22 03:05 37 C 61 18 156/81 H 96 Nasal Cannula 09/13/22 00:34 64 O2 Flow Rate 09/13/22 07:16 09/13/22 03:05 2 09/13/22 00:34 Laboratory Results 09/13/22 09/13/22 09/12/22 Range/Units 06:27 06:27 Unknown WBC 5.12 (4.8-10.8) K/ul RBC 3.29 L (4.20-5.40) M/uL Hgb 10.0 L (12.0-16.0) g/dl Hct 29.7 L (37.0-47.0) % MCV 90.3 (80.0-100.0) fL MCH 30.4 (25.0-34.0) pg MCHC 33.7 (32.0-36.0) g/dL RDW Std Deviation 44.2 (36.4-46.3) fL RDW Coeff of [place] 13.5 (11.5-14.5) % Plt Count 115 L (130-400) K/uL MPV 8.9 L (9.4-12.4) fL Immature Gran % (Auto) 0.2 % Neut % (Auto) 55.7 % Lymph % (Auto) 23.2 % Glynn % (Auto) 16.0 % Eos % (Auto) 4.5 % Baso % (Auto) 0.4 % Neut # (Auto) 2.85 (1.40-6.50) K/uL Lymph # (Auto) 1.19 L (1.2-3.4) K/uL Glynn # (Auto) 0.82 H (0.11-0.59) K/uL Eos # (Auto) 0.23 (0-0.50) K/uL Baso # (Auto) 0.02 (0-0.2) K/uL Immature Gran # (Auto) 0.01 (0.01-0.20) K/uL Sodium 132 L (136-145) mmol/L Potassium 3.9 (3.5-5.1) mmol/L Chloride 88 L (98-107) mmol/L Carbon Dioxide 33 H (21-32) mmol/L Anion Gap 11 (3-11) BUN 35 H (6-23) mg/dl Creatinine 8.73 H* D (0.6-1.2) mg/dl Est Cr Clr Drug Dosing 7.3 ml/min Est GFR ( Amer) 5.0 ml/min Est GFR (Non-Af Amer) 4.3 ml/min BUN/Creatinine Ratio 4.0 L (10-20) Glucose 104 H (70-99(Fasting)) mg/dl Calcium 9.7 (8.6-10.3) mg/dl Phosphorus 6.1 H (2.5-4.9) mg/dl Magnesium 2.6 H (1.7-2.4) mg/dl Total Bilirubin 0.5 (0.2-1.0) mg/dl AST 26 (13-39) U/L ALT 23 (7-52) U/L Alkaline Phosphatase 91 (34-104) U/L Total Protein 6.1 (6.0-8.3) gm/dl Albumin 3.6 (3.4-5.0) gm/dl Globulin 2.5 (2.5-4.0) gm/dl Albumin/Globulin Ratio 1.4 (0.9-2) Lipase (11-82) U/L Urine Color Urine Appearance (Clear) Urine pH (4.5-7.5) Ur Specific [place] (1.000-1.030) Urine Protein (Negative) Urine Glucose (UA) (Negative) Urine Ketones (Negative) Urine Blood (Negative) Urine Nitrite (Negative) Urine Bilirubin (Negative) Urine Urobilinogen (Negative) Ur Leukocyte Esterase (Negative) Urine WBC (Auto) (0-5) /hpf Urine RBC (Auto) (0-4) /hpf U Hyaline Cast (Auto) (0-5) /lpf U Epithel Cells (Auto) (0-5) /lpf Urine Bacteria (Auto) (Negative) Ur Renal Epithelial Cell Urine Crystals Calcium Oxalate Crystal Uric Acid Crystals Triple Phos Crystals Other Crystals Amorphous Sediment Granular Casts Waxy Casts RBC Casts WBC Casts Other Casts Urine Mucus Urine Other Urine Trichomonas Urine Yeast Urine Sperm Ur Oval Fat Bodies SARS-CoV-2, RNA, NAAT NEGATIVE (NEGATIVE) 09/12/22 09/12/22 09/12/22 Range/Units Unknown 17:40 12:43 WBC (4.8-10.8) K/ul RBC (4.20-5.40) M/uL Hgb (12.0-16.0) g/dl Hct (37.0-47.0) % MCV (80.0-100.0) fL MCH (25.0-34.0) pg MCHC (32.0-36.0) g/dL RDW Std Deviation (36.4-46.3) fL RDW Coeff of [place] (11.5-14.5) % Plt Count (130-400) K/uL MPV (9.4-12.4) fL Immature Gran % (Auto) % Neut % (Auto) % Lymph % (Auto) % Glynn % (Auto) % Eos % (Auto) % Baso % (Auto) % Neut # (Auto) (1.40-6.50) K/uL Lymph # (Auto) (1.2-3.4) K/uL Glynn # (Auto) (0.11-0.59) K/uL Eos # (Auto) (0-0.50) K/uL Baso # (Auto) (0-0.2) K/uL Immature Gran # (Auto) (0.01-0.20) K/uL Sodium 133 L (136-145) mmol/L Potassium 3.8 (3.5-5.1) mmol/L Chloride 88 L (98-107) mmol/L Carbon Dioxide 34 H (21-32) mmol/L Anion Gap 11 (3-11) BUN 28 H (6-23) mg/dl Creatinine 7.39 H* (0.6-1.2) mg/dl Est Cr Clr Drug Dosing 8.7 ml/min Est GFR ( Amer) 6.1 ml/min Est GFR (Non-Af Amer) 5.3 ml/min BUN/Creatinine Ratio 3.8 L (10-20) Glucose 93 (70-99(Fasting)) mg/dl Calcium 10.7 H (8.6-10.3) mg/dl Phosphorus (2.5-4.9) mg/dl Magnesium (1.7-2.4) mg/dl Total Bilirubin 0.6 (0.2-1.0) mg/dl AST 24 (13-39) U/L ALT 24 (7-52) U/L Alkaline Phosphatase 107 H (34-104) U/L Total Protein 7.0 (6.0-8.3) gm/dl Albumin 4.2 (3.4-5.0) gm/dl Globulin 2.8 (2.5-4.0) gm/dl Albumin/Globulin Ratio 1.5 (0.9-2) Lipase 65 (11-82) U/L Urine Color Cancelled Yellow Urine Appearance Cancelled Clear (Clear) Urine pH Cancelled 8.0 H (4.5-7.5) Ur Specific [place] Cancelled 1.007 (1.000-1.030) Urine Protein Cancelled 3+ H (Negative) Urine Glucose (UA) Cancelled Trace H (Negative) Urine Ketones Cancelled Trace H (Negative) Urine Blood Cancelled Trace H (Negative) Urine Nitrite Cancelled Negative (Negative) Urine Bilirubin Cancelled Negative (Negative) Urine Urobilinogen Cancelled Negative (Negative) Ur Leukocyte Esterase Cancelled Negative (Negative) Urine WBC (Auto) Cancelled 1-5 (0-5) /hpf Urine RBC (Auto) Cancelled 0-4 (0-4) /hpf U Hyaline Cast (Auto) Cancelled 0 (0-5) /lpf U Epithel Cells (Auto) Cancelled 5-10 H (0-5) /lpf Urine Bacteria (Auto) Cancelled Negative (Negative) Ur Renal Epithelial Cell Cancelled Urine Crystals Cancelled Calcium Oxalate Crystal Cancelled Uric Acid Crystals Cancelled Triple Phos Crystals Cancelled Other Crystals Cancelled Amorphous Sediment Cancelled Granular Casts Cancelled Waxy Casts Cancelled RBC Casts Cancelled WBC Casts Cancelled Other Casts Cancelled Urine Mucus Cancelled Urine Other Cancelled Urine Trichomonas Cancelled Urine Yeast Cancelled Urine Sperm Cancelled Ur Oval Fat Bodies Cancelled SARS-CoV-2, RNA, NAAT (NEGATIVE) 09/12/22 Range/Units 12:43 WBC 5.66 (4.8-10.8) K/ul RBC 3.42 L (4.20-5.40) M/uL Hgb 10.4 L (12.0-16.0) g/dl Hct 30.4 L (37.0-47.0) % MCV 88.9 (80.0-100.0) fL MCH 30.4 (25.0-34.0) pg MCHC 34.2 (32.0-36.0) g/dL RDW Std Deviation 43.8 (36.4-46.3) fL RDW Coeff of [place] 13.5 (11.5-14.5) % Plt Count 152 (130-400) K/uL MPV 8.7 L (9.4-12.4) fL Immature Gran % (Auto) 0.4 % Neut % (Auto) 59.2 % Lymph % (Auto) 21.9 % Glynn % (Auto) 14.3 % Eos % (Auto) 3.7 % Baso % (Auto) 0.5 % Neut # (Auto) 3.35 (1.40-6.50) K/uL Lymph # (Auto) 1.24 (1.2-3.4) K/uL Glynn # (Auto) 0.81 H (0.11-0.59) K/uL Eos # (Auto) 0.21 (0-0.50) K/uL Baso # (Auto) 0.03 (0-0.2) K/uL Immature Gran # (Auto) 0.02 (0.01-0.20) K/uL Sodium (136-145) mmol/L Potassium (3.5-5.1) mmol/L Chloride (98-107) mmol/L Carbon Dioxide (21-32) mmol/L Anion Gap (3-11) BUN (6-23) mg/dl Creatinine (0.6-1.2) mg/dl Est Cr Clr Drug Dosing ml/min Est GFR ( Amer) ml/min Est GFR (Non-Af Amer) ml/min BUN/Creatinine Ratio (10-20) Glucose (70-99(Fasting)) mg/dl Calcium (8.6-10.3) mg/dl Phosphorus (2.5-4.9) mg/dl Magnesium (1.7-2.4) mg/dl Total Bilirubin (0.2-1.0) mg/dl AST (13-39) U/L ALT (7-52) U/L Alkaline Phosphatase (34-104) U/L Total Protein (6.0-8.3) gm/dl Albumin (3.4-5.0) gm/dl Globulin (2.5-4.0) gm/dl Albumin/Globulin Ratio (0.9-2) Lipase (11-82) U/L Urine Color Urine Appearance (Clear) Urine pH (4.5-7.5) Ur Specific [place] (1.000-1.030) Urine Protein (Negative) Urine Glucose (UA) (Negative) Urine Ketones (Negative) Urine Blood (Negative) Urine Nitrite (Negative) Urine Bilirubin (Negative) Urine Urobilinogen (Negative) Ur Leukocyte Esterase (Negative) Urine WBC (Auto) (0-5) /hpf Urine RBC (Auto) (0-4) /hpf U Hyaline Cast (Auto) (0-5) /lpf U Epithel Cells (Auto) (0-5) /lpf Urine Bacteria (Auto) (Negative) Ur Renal Epithelial Cell Urine Crystals Calcium Oxalate Crystal Uric Acid Crystals Triple Phos Crystals Other Crystals Amorphous Sediment Granular Casts Waxy Casts RBC Casts WBC Casts Other Casts Urine Mucus Urine Other Urine Trichomonas Urine Yeast Urine Sperm Ur Oval Fat Bodies SARS-CoV-2, RNA, NAAT (NEGATIVE) Diagnostic Findings Abdomen/Pelvis CT 09/12/22 13:[address] WITHOUT CONTRAST CT DOSE: 1457.45 mGy.cm HISTORY: back pain flank pain ro kidney stones TECHNIQUE: Multiaxial CT images of the abdomen and pelvis were performed without contrast. A dose lowering technique was utilized adhering to the principles of ALARA. COMPARISON STUDY: Abdomen and pelvis CT 07/13/2021. FINDINGS: A few tree-in-bud nodular opacities again noted within the lung bases suggestive of a mild chronic bronchiolitis. This is similar to the prior study. No pneumoperitoneum. No pneumatosis. Slight increased density within the visualized osseous structures suggestive of renal osteodystrophy. No acute fractures identified. Cholecystectomy. Moderate to severe intra and extra hepatic bile duct dilatation which has progressed. No hepatic or splenic masses. The spleen remains at the upper limits of normal for size. Normal pancreas. Stable 4 mm right adrenal gland nodule. Normal left kidney. Right renal hypod ense lesion remains stable and favors a cyst. There are few scattered punctate calcifications within the atrophic [place] kidneys. These may represent a combination of cortical calcifications and renal calculi. No ureteral calculi. No hydronephrosis within the [place] kidneys. No retroperitoneal lymphadenopathy. Calcified plaque within the normal caliber abdominal aorta. No pelvic lymphadenopathy or pelvic free fluid. This moderate bladder wall thickening with adjacent fat screening. There is mild perinephric edema within the right lower quadrant transplant. Therefore, this could represent pyelonephritis of the right lower quadrant renal transplant. Suboptimal evaluation for bowel pathology due to the lack of intravenous and oral contrast. However, there is no definite bowel wall thickening or obstruction. Colonic diverticulosis. No evidence for acute diverticulitis. Prior appendectomy. There is a 2.5 cm hypodense nodule on image 73 located between the left hepatic lobe and stomach. This is similar to the prior study. IMPRESSION: 1. Interval development of moderate to severe intra and extrahepatic bile duct dilatation. This raises the possibility of an occult obstructing lesion, stone, or stricture. Follow-up ultrasound can check consultation recommended for further evaluation. 2. Bladder wall thickening with adjacent fat stranding consistent with a cystitis. There is also mild perinephric edema within the right lower quadrant renal transplant. This could represent an associated pyelonephritis. Recommend correlation with urinalysis. 3. Redemonstration of the indeterminate 2.5 cm nodule located between the left hepatic lobe and stomach. This could represent an exophytic gastric lesion or hepatic lesion. Follow-up nonemergent liver MRI recommended for further evaluation. 4. Additional findings as described above. ACT 112: Positive. There are findings on this exam that require communication between the performing entity and the patient following Patient Test Result Information Act ([place] Act 112) guidelines. Electronically signed by: Jesus Alberto Hernández M.D. 09/12/2022 2:49 PM Gallbladder Ultrasound 09/12/22 14:59 US gallbladder CLINICAL HISTORY: R flank pain RUQ pain biliary ductal dilatation TECHNIQUE: Multiple real-time sonographic images of the right upper quadrant were obtained. Comparison: None available at the time of this dictation. FINDINGS: The liver is diffusely homogenous with normal contour and echogenicity. Redemonstration of a extrahepatic mass lesion measuring 3.1 x 1.7 x 2.3 cm. Intrahepatic ducts are seen.. Patient is status post cholecystectomy. The common duct measures 1.9 cm in diameter at the level of the hepatic artery. Pancreatic duct measures 0.5 cm. The right kidney is atrophic in appearance. No evidence of hydronephrosis. A simple cyst is seen in the upper pole. No ascites or free fluid is seen in Villalobos's pouch. IMPRESSION: 1. Dilation of the common bile duct and intrahepatic bile ducts again seen. Pancreatic ductal prominence similar to prior exam. 2. Atrophic kidney. 3. Redemonstration of indeterminate nodule adjacent to the stomach. ACT 112: Negative or not required by law. Electronically signed by: Phill Loomis M.D. 09/12/2022 4:11 PM Cholangiopancreatography MRI 09/12/22 18:09 Exam(s): MRI MRCP EXAM: MR Abdomen Without Intravenous Contrast, MRCP Protocol CLINICAL HISTORY: Reason for exam: bile duct dilation. TECHNIQUE: Multiplanar magnetic resonance images of the abdomen without intravenous contrast using MRCP protocol. COMPARISON: Ultrasound and CT scan from September 12, 2022 FINDINGS: Bile ducts: There is diffuse biliary duct dilation. The common hepatic duct measures 1.9 cm. The common bile duct measures 1.6 cm. There is a relatively abrupt tapering distally. No choledocholithiasis is identified. Gallbladder: Unremarkable. No stones. Liver: The liver is mildly enlarged is 18.2 cm craniocaudad. No focal liver mass lesion is seen. Pancreas: The high-resolution images are slightly blurred by motion. No discrete pancreatic head mass is identified. Consider endoscopic ultrasound, if available, to exclude occult pancreatic head mass versus stricture. The pancreatic duct is slightly dilated measuring 4 mm. Spleen: The spleen measures 11.2 cm. Adrenals: Unremarkable. No mass. Kidneys and ureters: The kidneys are atrophic. There is a 3.2 cm simple cyst extending off the upper pole the right kidney. No follow-up is required. No hydronephrosis. Stomach and bowel: Unremarkable. No obstruction. IMPRESSION: 1. There is diffuse biliary duct dilation. The common hepatic duct measures 1.9 cm. The common bile duct measures 1.6 cm. There is a relatively abrupt tapering distally. No choledocholithiasis is identified. 2. The pancreatic duct is slightly dilated measuring 4 mm. 3. The high-resolution images are slightly blurred by motion. No discrete pancreatic head mass is identified. Consider endoscopic ultrasound, if available, to exclude occult pancreatic head mass versus stricture. Electronically signed by: Doroteo Araujo MD 09/13/22 00:26 AM (1) Abdominal pain Abdominal location: unspecified location Qualified Code(s): R10.9 - Unspecified abdominal pain
--- NOTE | 2022-09-13 15:08 | Hospitalist Progress Note ---
Date of Service September 13, 2022 Assessment & Plan (1) Abdominal pain: (2) Dilated bile duct: Plan 66 year old female with pmhx (per chart and pt) of ESRD (on HD M/W/), failed renal transplant, HTN, HLD, COPD, pHTN, sleep apnea, GERD, GIST, hypothyroidism s/p thyroidectomy, migraine VACA, mood disorder and multiple abdominal surgeries. She presented 7/3 d/t abdominal and back pain. She was unable to tolerate a full dialysis run. She is found to have intrahepatic and extrahepatic biliary duct dilatation on imaging. Imaging also revealed findings consistent with cystitis and pyelonephritis at ED. She is being managed for the following: (1) Dilated bile duct: #. Concern for pyelonephritis: s/p ccy, Pt has been educated even though the gallbladder is removed part of the duct remains and can still generate stones/sludge admitting wbc nl and UA neg for UTI. Lipase and liver enzymes normal. Admitting CTAP: Moderate to severe intra and extrahepatic bile duct dilatation. Suggestive of cystitis and pyelonephritis of right lower quadrant renal transplant. Stable 2.5 cm nodule between the left hepatic lobe anastomotic [patient following up regarding this lesion with Dr. Xavier per patient. MRI has been done 08/26/2022] MRCP 09/13 reviewed. Patient no patient with no urinary signs and symptoms, urinary analysis WNL, no fever in the last few weeks per patient, doubt it is either cystitis or pyelonephritis. Continue to monitor. GI evaluated, NPO midnight until GI eval in AM for possible EUS +- ERCP. continue with analgesia, antiemetics, clears to full liq diet today/low fat. (2) Abdominal pain: d/t biliary duct dilatation, see above c/w analgesia, reports better pain control Pt w/ no fever in the recent past per her, will dc empiric zosyn started at admission monitor off of antibiotic. (4) ESRD (end stage renal disease) on dialysis: continue HD per nephrology Present on Admission?: Yes (5) S/P thyroidectomy: (6) Essential hypertension: continue home regimen poorly controlled, likely d/t pain/anxiety; c/w pain Mx. Admission and Anticipated Discharge Date Admission Date: September 12, 2022 Subjective Patient seen and examined at bedside as a follow-up of dilated bile duct and abdominal pain. Patient was lying in bed, on room air, playing Candy crush in her mobile throughout my bedside examination -eyes on the mobile constantly. Patient reports no belly pain today, denies any nausea. Patient denies any pain or burning while passing urine in the last few weeks, patient denies any fever in the last few weeks. Patient denies any headache or dizziness or chest pain or palpitation other review of symptoms. Physical Exam Physical Exam: GENERAL: Alert and oriented x3. NAD, on 2L NC O2. HEENT: No pallor, no icterus. Pupils equal, round and reactive to light. Oral mucosa moist. NECK: No JVD, no neck masses. HEART: S1 and S2 heard. Regular rate and rhythm. No murmur, no gallop. RESPIRATORY SYSTEM: Normal AP diameter. No accessory muscle use. No wheezing, no crackles. ABDOMEN: Soft, bowel sounds present, nontender, no distention. CENTRAL NERVOUS SYSTEM: No facial droop. Speech is clear. Obeys simple commands. Moves extremities. EXTREMITIES: No edema, no erythema seen. Results & Data Results & Data Vital Signs (Past 12 Hours) Vital Signs Temp Pulse Pulse Resp BP Pulse Ox O2 Del Method 09/13/22 07:15 64 09/13/22 11:06 36.7 C 69 18 131/73 98 Nasal Cannula 09/13/22 11:00 Nasal Cannula 09/13/22 07:16 36.5 C 63 20 139/72 92 Room Air 09/13/22 03:05 37 C 61 18 156/81 H 96 Nasal Cannula O2 Flow Rate 09/13/22 07:15 09/13/22 11:06 2 09/13/22 11:00 2 09/13/22 07:16 09/13/22 03:05 2 (1) Abdominal pain Abdominal location: unspecified location Qualified Code(s): R10.9 - Unspecified abdominal pain
[2022-09-13] MEDS: SODIUM ZIRCONIUM CYCLOSILICATE 10 GM PACKET PO SCH (15:33)
[2022-09-14] MEDS: HEPARIN SOD 5,000 UNIT/0.5 ML VIAL SQ SCH ×3 (05:49→20:19)
[2022-09-14] MEDS: LEVOTHYROXINE SODIUM 100 MCG TABLET PO SCH (05:49)
[2022-09-14] MEDS: PANTOprazole 40 MG TAB PO SCH (05:51)
[2022-09-14] MEDS ORDERED: SODIUM CHLORIDE 0.9% 1000ML 1,000 ML IV PRN (07:00)
[2022-09-14 07:24] LABS: Hemoglobin 9.6 g/dl (12.0-16.0); Mean Corpuscular Hemoglobin 30.4 pg (25.0-34.0); Mean Corpuscular Hgb Conc 34.3 g/dL (32.0-36.0); Mean Corpuscular Volume 88.6 fL (80.0-100.0); Platelet Count 109 K/uL (130-400); RDW Coefficient of Variation 13.5 % (11.5-14.5); Red Blood Count 3.16 M/uL (4.20-5.40); White Blood Count 5.32 K/ul (4.8-10.8)
[2022-09-14 07:40] LABS: BUN Creatinine Ratio 4.1 (10-20); Creatinine Clr Calc Pharmacy 6.2 ml/min; Est GFR (African American) 4.1 ml/min; Est GFR (Non-African American) 3.5 ml/min; Magnesium 2.8 mg/dl (1.7-2.4); Phosphorus 6.8 mg/dl (2.5-4.9); Potassium 3.8 mmol/L (3.5-5.1)
[2022-09-14] MEDS: CALCIUM ACETATE 667 MG CAP/TAB PO SCH ×3 (07:55→17:03)
[2022-09-14] MEDS: METOPROLOL TARTRATE 25 MG TAB PO SCH ×2 (08:11→20:19)
[2022-09-14] MEDS: CALCITRIOL 0.25 MCG CAPSULE PO SCH ×2 (08:12→14:00)
[2022-09-14] MEDS: GABAPENTIN 100 MG CAP PO SCH ×2 (08:12→20:19)
[2022-09-14] MEDS: NEPHROCAPS PO SCH (08:13)
[2022-09-14] MEDS: amLODIPine BESYLATE 5 MG TAB PO SCH (08:13)
[2022-09-14] MEDS: ASPIRIN 81 MG ECTAB PO SCH (08:13)
[2022-09-14] MEDS: MAGNESIUM OXIDE 400 MG TAB PO SCH (08:13)
--- NOTE | 2022-09-14 08:56 | Gastroenterology Progress Note ---
Date of Service September 14, 2022 Assessment & Plan (1) Abdominal pain: Plan: 66 year old female with history of ESRD (on HD M/W/Fr), failed renal transplant, HTN, HLP, COPD, pHTN, sleep apnea, GERD, GIST, hypothyroidism s/p thyroidectomy, migraine VACA, mood disorder and multiple abdominal surgeries admitted w/ abd cramping, CT/ABD/MR w/ biliary dilation, PD dilation Will plan for OP EUS/ERCP Will sign off. Recall as needed. Thank you for allowing us to participate in the care of this patient. Please call with any acute changes, questions or concerns. Please see addendum below with additional recommendation from my supervising physician. Admission and Anticipated Discharge Date Admission Date: September 12, 2022 Supervising Physician Co-Signing Physician Notes I have seen and examined the patient with MALIA Stout whose note reflects our findings and plan. Subjective GI asked to evaluate. Notes abd pain/cramping intermittent x 1 month. Occasionally radiates to her back. No nausea/vomiting. Has had some decreased appetite, early satiety. About 5 lb weight loss. MRI 2022: There is diffuse biliary duct dilation. The common hepatic duct measures 1.9 cm. The common bile duct measures 1.6 cm. There is a relatively abrupt tapering distally. No choledocholithiasis is identified. The pancreatic duct is slightly dilated measuring 4 mm. The high- resolution images are slightly blurred by motion. Nodiscrete pancreatic head mass is identified. Consider endoscopic ultrasound, if available, to exclude occult pancreatic head mass versus stricture. ABD US 2022: Dilation of the common bile duct and intrahepatic bile ducts again seen. Pancreatic ductal prominence similar to prior exam. 2. Atrophic kidney. 3. Redemonstration of indeterminate nodule adjacent to the stomach. CTAP 2022: Interval development of moderate to severe intra and extrahepatic bile duct dilatation. This raises the possibility of an occult obstructing lesion, stone, or stricture. Follow-up ultrasound can check consultation recommended for further evaluation. 2. Bladder wall thickening with adjacent fat stranding consistent with a cystitis. There is also mild perinephric edema within the right lower quadrant renal transplant. This could represent an associated pyelonephritis. Recommend correlation with urinalysis. 3. Redemonstration of the indeterminate 2.5 cm nodule located between the left hepatic lobe and stomach. This could represent an exophytic gastric lesion or hepatic lesion. Follow-up nonemergent liver MRI recommended for further evaluation. 4. Additional findings as described above. Review of Systems Review of Systems: All systems reviewed & are unremarkable except as noted in HPI & below Physical Exam Constitutional: WD/WN, vitals as above Respiratory: normal respiratory effort, lungs clear to auscultation Cardiovascular: Rate/Rhythm: regular rate and regular rhythm Gastrointestinal (Abdomen): normal bowel sounds, soft, nontender, no hepatosplenomegaly Skin: no rashes, warm and dry Results & Data Vital Signs (Past 12 Hours) Vital Signs Temp Pulse Pulse Resp BP Pulse Ox O2 Del Method 09/14/22 07:48 Nasal Cannula 09/14/22 07:34 36.6 C 64 18 151/81 H 97 Nasal Cannula 09/14/22 07:18 65 09/14/22 04:00 36.7 C 63 16 147/77 H 94 Nasal Cannula 09/13/22 23:00 60 09/13/22 22:52 37.0 C 81 18 156/78 H 96 Nasal Cannula 09/13/22 22:00 Nasal Cannula O2 Flow Rate 09/14/22 07:48 2 09/14/22 07:34 2 09/14/22 07:18 09/14/22 04:00 2 09/13/22 23:00 09/13/22 22:52 2 09/13/22 22:00 2 Laboratory Results 09/14/22 09/14/22 09/13/22 Range/Units 06:40 06:40 06:27 WBC 5.32 (4.8-10.8) K/ul RBC 3.16 L (4.20-5.40) M/uL Hgb 9.6 L (12.0-16.0) g/dl Hct 28.0 L (37.0-47.0) % MCV 88.6 (80.0-100.0) fL MCH 30.4 (25.0-34.0) pg MCHC 34.3 (32.0-36.0) g/dL RDW Std Deviation 44.0 (36.4-46.3) fL RDW Coeff of [place] 13.5 (11.5-14.5) % Plt Count 109 L (130-400) K/uL MPV 9.0 L (9.4-12.4) fL Sodium 129 L (136-145) mmol/L Potassium 3.8 (3.5-5.1) mmol/L Chloride 86 L (98-107) mmol/L Carbon Dioxide 31 (21-32) mmol/L Anion Gap 12 H (3-11) BUN 42 H (6-23) mg/dl Creatinine 10.34 H* D (0.6-1.2) mg/dl Est Cr Clr Drug Dosing 6.2 ml/min Est GFR ( Amer) 4.1 ml/min Est GFR (Non-Af Amer) 3.5 ml/min BUN/Creatinine Ratio 4.1 L (10-20) Glucose 80 (70-99(Fasting)) mg/dl Calcium 10.0 (8.6-10.3) mg/dl Phosphorus 6.8 H 6.1 H (2.5-4.9) mg/dl Magnesium 2.8 H (1.7-2.4) mg/dl (1) Abdominal pain Abdominal location: unspecified location Qualified Code(s): R10.9 - Unspecified abdominal pain
[2022-09-14] MEDS: oxyCODONE HCL IR 5 MG TAB (IMMEDIATE RELEASE) PO PRN ×2 (11:13→20:26)
[2022-09-14] MEDS: MoRPHine SULFATE 2 MG/ML CARP IV PRN (13:00)
--- NOTE | 2022-09-14 16:20 | Hospitalist Progress Note ---
Date of Service September 14, 2022 Assessment & Plan (1) Abdominal pain: (2) Dilated bile duct: Plan 66 year old female with pmhx (per chart and pt) of ESRD (on HD M//), failed renal transplant, HTN, HLD, COPD, pHTN, sleep apnea, GERD, GIST, hypothyroidism s/p thyroidectomy, migraine VACA, mood disorder and multiple abdominal surgeries. She presented 09/12 d/t abdominal and back pain. She was unable to tolerate a full dialysis run. She is found to have intrahepatic and extrahepatic biliary duct dilatation on imaging. Imaging also revealed findings consistent with cystitis and pyelonephritis at ED. She is being managed for the following: (1) Dilated bile duct: #. Concern for pyelonephritis: Pyelonephritis has been ruled out-no abnormalities in the UA, blood and urine culture have been negative s/p ccy, Pt has been educated even though the gallbladder is removed part of the duct remains and can still generate stones/sludge admitting wbc nl and UA neg for UTI. Lipase and liver enzymes normal. Admitting CTAP: Moderate to severe intra and extrahepatic bile duct dilatation. Suggestive of cystitis and pyelonephritis of right lower quadrant renal transplant. Stable 2.5 cm nodule between the left hepatic lobe anastomotic [patient following up regarding this lesion with Dr. Xavier per patient. MRI has been done 08/26/2022] MRCP 09/13 reviewed. Appreciate GI input and recommendation She will have a EUS as an outpatient Denies any abdominal pain, nausea and vomiting (2) Abdominal pain: d/t biliary duct dilatation, see above c/w analgesia, reports better pain control Pt w/ no fever in the recent past per her, will dc empiric zosyn started at admission monitor off of antibiotic. Remains free from pain and white counts remained unremarkable No signs and or symptoms of infection (4) ESRD (end stage renal disease) on dialysis: Failed renal transplant Continue HD per nephrology Present on Admission?: Yes (5) S/P thyroidectomy: (6) Essential hypertension: continue home regimen poorly controlled, likely d/t pain/anxiety; c/w pain Mx. DVT prophylaxis Subcu heparin Admission and Anticipated Discharge Date Admission Date: September 12, 2022 Subjective 09/14/2022 The patient was seen and examined in medical telemetry unit She complains to have more back pain without any radiation He could not tolerate dialysis for the last 40 minutes or so Denies any problem with urine or bowel habit with the back pain She denies any chest pain, shortness of breath or palpitation, no abdominal pain nausea and or vomiting Review of Systems Review of Systems: All systems reviewed and are unremarkable except as noted below Physical Exam Physical Exam: Remains unsteady due to back pain and wondering about in the room Constitutional: well developed, well nourished, + ill appearing and + obese Eyes: PERRL, conjunctivae normal, anicteric sclerae ENMT: external ear and nose normal, oropharynx normal Neck: trachea midline, no thyromegaly Respiratory: no respiratory distress Auscultation: + diminished lung sounds and + crackles (Minimal crackles at the bases) Cardiovascular: Rate/Rhythm: regular rate and regular rhythm; not tachycardic Heart Sounds: normal S1 and normal S2; no murmur Extremities: + edema (Trace edema bilaterally) Gastrointestinal (Abdomen): Inspection/Auscultation: normal bowel sounds; abdomen not distended Percussion/Palpation: abdomen soft; abdomen nontender Musculoskeletal: Lower right back tenderness Neurologic: normal touch/pain/proprioception and moves all extremities; no focal motor deficits Psychiatric: A+Ox3, euthymic affect Lymphatic: no cervical or axillary lymphadenopathy Results & Data Results & Data Vital Signs (Past 12 Hours) Vital Signs Temp Pulse Pulse Pulse Resp BP BP 09/14/22 15:16 36.7 C 71 16 130/66 09/14/22 12:30 36.7 C 65 194/97 H 09/14/22 11:30 61 166/92 H 09/14/22 11:00 61 167/93 H 09/14/22 10:30 57 L 174/91 H 09/14/22 10:00 58 L 186/95 H 09/14/22 09:30 60 176/100 H 09/14/22 09:15 62 168/93 H 09/14/22 09:07 36.7 C 62 09/14/22 07:48 09/14/22 07:34 36.6 C 64 18 151/81 H 09/14/22 07:18 65 Pulse Ox O2 Del Method O2 Flow Rate 09/14/22 15:16 94 Room Air 09/14/22 12:30 09/14/22 11:30 09/14/22 11:00 09/14/22 10:30 09/14/22 10:00 09/14/22 09:30 09/14/22 09:15 09/14/22 09:07 09/14/22 07:48 Nasal Cannula 2 09/14/22 07:34 97 Nasal Cannula 2 09/14/22 07:18 Laboratory Results Short CBC 09/14/22 Range/Units 06:40 WBC 5.32 (4.8-10.8) K/ul Hgb 9.6 L (12.0-16.0) g/dl Hct 28.0 L (37.0-47.0) % Plt Count 109 L (130-400) K/uL BMP 09/14/22 06:40 Sodium 129 L Potassium 3.8 Chloride 86 L Carbon Dioxide 31 BUN 42 H Creatinine 10.34 H* D Glucose 80 Calcium 10.0 Medications Administered Current Inpatient Medications Acetaminophen (Acetaminophen 325 Mg Tab) 650 mg PO Q4H PRN PRN Reason: Pain or Fever Stop: 10/12/22 20:16 Amlodipine Besylate (Amlodipine Besylate 5 Mg Tab) 5 mg PO QAM [facility] Stop: 10/13/22 08:59 Last Admin: 09/14/22 08:13 Dose: 5 mg Aspirin (Aspirin 81 Mg Ectab) 81 mg PO QAM [facility] Stop: 10/13/22 08:59 Last Admin: 09/14/22 08:13 Dose: 81 mg Calcitriol (Calcitriol 0.25 Mcg Capsule) 0.5 mcg PO TID [facility] Stop: 10/12/22 20:59 Last Admin: 09/14/22 14:00 Dose: 0.5 mcg Calcium Acetate (Calcium Acetate 667 Mg Cap/Tab) 1,334 mg PO TIDM [facility] Stop: 10/13/22 07:59 Last Admin: 09/14/22 13:59 Dose: 1,334 mg Fluticasone Propionate (Fluticasone Propionate Na Spr 16 Gm Btl) 1 sprays KATHERINE DAILY PRN PRN Reason: Allergy Symptoms Stop: 10/12/22 20:16 Gabapentin (Gabapentin 100 Mg Cap) 100 mg PO BID [facility] Stop: 10/12/22 20:59 Last Admin: 09/14/22 08:12 Dose: 100 mg Heparin Sodium (Porcine) (Heparin Sod 5,000 Unit/0.5 Ml Vial) 5,000 units SQ Q8 [facility] Stop: 10/12/22 21:59 Last Admin: 09/14/22 14:00 Dose: 5,000 units Levothyroxine Sodium (Levothyroxine Sodium 100 Mcg Tablet) 100 mcg PO DAILYBB [facility] Stop: 10/13/22 06:29 Last Admin: 09/14/22 05:49 Dose: 100 mcg Magnesium Oxide (Magnesium Oxide 400 Mg Tab) 400 mg PO QAM [facility] Stop: 10/13/22 08:59 Last Admin: 09/14/22 08:13 Dose: 400 mg Metoprolol Tartrate (Metoprolol Tartrate 25 Mg Tab) 37.5 mg PO BID [facility] Stop: 10/12/22 20:59 Last Admin: 09/14/22 08:11 Dose: 37.5 mg Morphine Sulfate (Morphine Sulfate 2 Mg/Ml Carp) 2 mg IV Q4H PRN PRN Reason: Pain Stop: 09/28/22 12:51 Last Admin: 09/14/22 13:00 Dose: 2 mg Ondansetron HCl (Ondansetron Inj 2 Mg/Ml 2 Ml Vial) 4 mg IV Q6H PRN PRN Reason: Nausea Stop: 10/12/22 20:16 Last Admin: 09/13/22 04:26 Dose: 4 mg Oxycodone HCl (Oxycodone Hcl Ir 5 Mg Tab (Immediate Release)) 2.5 mg PO Q8H PRN PRN Reason: pain,severe Stop: 09/26/22 20:39 Last Admin: 09/14/22 11:13 Dose: 2.5 mg Pantoprazole Sodium (Pantoprazole 40 Mg Tab) 40 mg PO DAILYBB [facility] Stop: 10/13/22 06:29 Last Admin: 09/14/22 05:51 Dose: 40 mg Sodium Zirconium Cyclosilicate (Sodium Zirconium Cyclosilicate 10 Gm Packet) 10 gm PO DAILY@1500 [facility] Stop: 10/13/22 14:59 Last Admin: 09/13/22 15:33 Dose: 10 gm Vitamin B Complex/Folic Acid (Nephrocaps) 1 cap PO DAILY [facility] Stop: 10/13/22 08:59 Last Admin: 09/14/22 08:13 Dose: 1 cap (1) Abdominal pain Abdominal location: unspecified location Qualified Code(s): R10.9 - Unspecified abdominal pain
[2022-09-14] MEDS: SODIUM ZIRCONIUM CYCLOSILICATE 10 GM PACKET PO SCH (16:44)
--- NOTE | 2022-09-14 20:10 | Nephrology Progress Note ---
Date of Service September 14, 2022 Assessment & Plan (1) ESRD (end stage renal disease) on dialysis: Plan: Her normal HD days are MWF, She was last dialysed on 09/09 then first treatment 09/14 -chemsitries are ok /not critical though shows she's not had HD for some time -Volume status acceptable though HTN may reflect need for dialysis - will reeval for short HD in AM ; else next HD for 09/16 - tolerated 2.2 L today fluid removal (2) Abdominal pain: Plan: d/t biliary duct dilatation and possibly with cystitis and pyelonephritis continue analgesia continue with renally dosed zosyn until cultures avaliable. calcium on high end and will lower rocaltrol dose to bid >>>daily bmp (3) S/P parathyroidectomy: Plan: - continue on all the calcium replacement ( calcitriol, calcium acetate,calcium carbonate) at the moment. - calcium needs to watched if the binders are stopped to pain, replace it IV if needed, we will also used high calcium bath if needed. (4) S/P thyroidectomy: Admission and Anticipated Discharge Date Admission Date: September 12, 2022 Subjective came off of HD 45 min early today (of 3.5 hr tx) d/t intractable back pain; no sob, no n/v Review of Systems Review of Systems: All systems reviewed & are unremarkable except as noted in Subjective Physical Exam 2 Constitutional: well developed and well nourished Eyes: EOM intact bilaterally ENMT: Ears: no external ear abnormality Nose: no external nose abnormality Mouth: + dry oral mucous membranes Neck: no nuchal rigidity Respiratory: normal respiratory effort Auscultation: + diminished lung sounds Cardiovascular: Rate/Rhythm: regular rate and regular rhythm Extremities: + AV fistula; no edema Gastrointestinal (Abdomen): Inspection/Auscultation: normal bowel sounds Percussion/Palpation: abdomen soft; abdomen nontender Musculoskeletal: Extremities: strength 5/5 throughout Skin: no rashes, warm and dry Neurologic: gregory, fluent speech, no tremor Results & Data Vital Signs (Past 12 Hours) Vital Signs Temp Pulse Pulse Pulse Resp BP BP 09/14/22 19:12 36.8 C 68 16 154/77 H 09/14/22 14:01 84 09/14/22 15:16 36.7 C 71 16 130/66 09/14/22 12:30 36.7 C 65 194/97 H 09/14/22 11:30 61 166/92 H 09/14/22 11:00 61 167/93 H 09/14/22 10:30 57 L 174/91 H 09/14/22 10:00 58 L 186/95 H 09/14/22 09:30 60 176/100 H 09/14/22 09:15 62 168/93 H 09/14/22 09:07 36.7 C 62 Pulse Ox O2 Del Method 09/14/22 19:12 96 Room Air 09/14/22 14:01 09/14/22 15:16 94 Room Air 09/14/22 12:30 09/14/22 11:30 09/14/22 11:00 09/14/22 10:30 09/14/22 10:00 09/14/22 09:30 09/14/22 09:15 09/14/22 09:07 Laboratory Results 09/14/22 06:40 09/14/22 06:40 (2) Abdominal pain Abdominal location: unspecified location Qualified Code(s): R10.9 - Unspecified abdominal pain
[2022-09-15] MEDS: PANTOprazole 40 MG TAB PO SCH (05:24)
[2022-09-15] MEDS: LEVOTHYROXINE SODIUM 100 MCG TABLET PO SCH (05:24)
[2022-09-15] MEDS: oxyCODONE HCL IR 5 MG TAB (IMMEDIATE RELEASE) PO PRN (05:24)
[2022-09-15] MEDS: HEPARIN SOD 5,000 UNIT/0.5 ML VIAL SQ SCH ×2 (05:25→13:28)
--- NOTE | 2022-09-15 07:16 | Electrocardiogram Report ---
Test Reason : Blood Pressure : / mmHG Vent. Rate : 067 BPM Atrial Rate : 067 BPM P-R Int : 204 ms QRS Dur : 072 ms QT Int : 436 ms P-R-T Axes : 046 003 011 degrees QTc Int : 460 ms Normal sinus rhythm Low voltage QRS Possible Inferior infarct (cited on or before 22-JUL-2022) Cannot rule out Anterior infarct , age undetermined Incomplete right bundle branch block Abnormal ECG When compared with ECG of 22-JUL-2022 10:22, Minimal criteria for Anterior infarct are now Present Questionable change in initial forces of Inferior leads Confirmed by Demetrio Sanchez ([id number]) on 09/15/2022 7:16:28 AM Referred By: REFERRED SELF Confirmed By:Demetrio Sanchez
[2022-09-15] MEDS: GABAPENTIN 100 MG CAP PO SCH (07:54)
[2022-09-15] MEDS: METOPROLOL TARTRATE 25 MG TAB PO SCH (07:54)
[2022-09-15] MEDS: NEPHROCAPS PO SCH (07:54)
[2022-09-15] MEDS: MAGNESIUM OXIDE 400 MG TAB PO SCH (07:54)
[2022-09-15] MEDS: ASPIRIN 81 MG ECTAB PO SCH (07:55)
[2022-09-15] MEDS: amLODIPine BESYLATE 5 MG TAB PO SCH (07:55)
[2022-09-15] MEDS: CALCIUM ACETATE 667 MG CAP/TAB PO SCH ×2 (07:55→13:27)
[2022-09-15] MEDS ORDERED: SODIUM CHLORIDE 0.9% 1000ML 1,000 ML IV PRN (07:56)
[2022-09-15] MEDS ORDERED: HEPARIN SOD (PORCINE) 1000 UNIT/ML IV ONE (07:56)
[2022-09-15 09:00] LABS: Basophils # (auto) 0.02 K/uL (0-0.2); Basophils % (auto) 0.5 %; Eosinophils # (auto) 0.23 K/uL (0-0.50); Eosinophils % (auto) 5.3 %; Hematocrit (blood only) 29.7 % (37.0-47.0); Hemoglobin 9.9 g/dl (12.0-16.0); Immature Granulocytes # (auto) 0.01 K/uL (0.01-0.20); Immature Granulocytes % (auto) 0.2 %; Lymphocytes # (auto) 1.27 K/uL (1.2-3.4); Lymphocytes % (auto) 29.5 %; Mean Corpuscular Hemoglobin 30.4 pg (25.0-34.0); Mean Corpuscular Hgb Conc 33.3 g/dL (32.0-36.0); Mean Corpuscular Volume 91.1 fL (80.0-100.0); Mean Platelet Volume 8.9 fL (9.4-12.4); Monocytes # (auto) 0.75 K/uL (0.11-0.59); Monocytes % (auto) 17.4 %; Neutrophils # (auto) 2.02 K/uL (1.40-6.50); Neutrophils % (auto) 47.1 %; Platelet Count 111 K/uL (130-400); RDW Coefficient of Variation 13.8 % (11.5-14.5); RDW Standard Deviation 45.7 fL (36.4-46.3); Red Blood Count 3.26 M/uL (4.20-5.40)
[2022-09-15] MEDS ORDERED: CALCITRIOL 0.25 MCG CAPSULE PO SCH (09:00)
[2022-09-15 09:19] LABS: BUN Creatinine Ratio 3.7 (10-20); Creatinine Clr Calc Pharmacy 8.3 ml/min; Est GFR (African American) 5.8 ml/min; Potassium 3.9 mmol/L (3.5-5.1)
[2022-09-15] MEDS: MoRPHine SULFATE 2 MG/ML CARP IV PRN (09:55)
[2022-09-15] MEDS: HEPARIN SOD (PORCINE) 1000 UNIT/ML IV SCH ×2 (10:49→13:27)
--- NOTE | 2022-09-15 14:23 | Hospitalist Progress Note ---
Date of Service September 15, 2022 Assessment & Plan (1) Abdominal pain: (2) Dilated bile duct: Plan 66 year old female with pmhx (per chart and pt) of ESRD (on HD M//), failed renal transplant, HTN, HLD, COPD, pHTN, sleep apnea, GERD, GIST, hypothyroidism s/p thyroidectomy, migraine VACA, mood disorder and multiple abdominal surgeries. She presented 7/3 d/t abdominal and back pain. She was unable to tolerate a full dialysis run. She is found to have intrahepatic and extrahepatic biliary duct dilatation on imaging. Imaging also revealed findings consistent with cystitis and pyelonephritis at ED. She is being managed for the following: (1) Dilated bile duct: #. Concern for pyelonephritis: Pyelonephritis has been ruled out-no abnormalities in the UA, blood and urine culture have been negative s/p ccy, Pt has been educated even though the gallbladder is removed part of the duct remains and can still generate stones/sludge admitting wbc nl and UA neg for UTI. Lipase and liver enzymes normal. Admitting CTAP: Moderate to severe intra and extrahepatic bile duct dilatation. Suggestive of cystitis and pyelonephritis of right lower quadrant renal transplant. Stable 2.5 cm nodule between the left hepatic lobe anastomotic [patient following up regarding this lesion with Dr. Xavier per patient. MRI has been done 08/26/2022] MRCP 09/13 reviewed. Appreciate GI input and recommendation She will have a EUS as an outpatient Denies any abdominal pain, nausea and vomiting Remains stable without any other acute symptoms (2) Abdominal pain: d/t biliary duct dilatation, see above c/w analgesia, reports better pain control Pt w/ no fever in the recent past per her, will dc empiric zosyn started at admission monitor off of antibiotic. Remains free from pain and white counts remained unremarkable No signs and or symptoms of infection No more pain in the abdomen Intractable back pain Noted yesterday is resolved No radiculopathic symptoms (4) ESRD (end stage renal disease) on dialysis: Failed renal transplant Continue HD per nephrology Present on Admission?: Yes We will have usual hemodialysis as an outpatient (5) S/P thyroidectomy: (6) Essential hypertension: continue home regimen poorly controlled, likely d/t pain/anxiety; c/w pain Mx. DVT prophylaxis Subcu heparin Discharge home this afternoon Admission and Anticipated Discharge Date Admission Date: September 12, 2022 Subjective 09/14/2022 The patient was seen and examined in medical telemetry unit She complains to have more back pain without any radiation He could not tolerate dialysis for the last 40 minutes or so Denies any problem with urine or bowel habit with the back pain She denies any chest pain, shortness of breath or palpitation, no abdominal pain nausea and or vomiting 09/15/2022 The patient was seen and examined in medical telemetry unit She is a status post hemodialysis today Denies any more abdominal pain and the back pain is resolved She wants to go home today Review of Systems Review of Systems: All systems reviewed and are unremarkable except as noted below Physical Exam Physical Exam: Remains unsteady due to back pain and wondering about in the room Constitutional: well developed, well nourished, + ill appearing and + obese Eyes: PERRL, conjunctivae normal, anicteric sclerae ENMT: external ear and nose normal, oropharynx normal Neck: trachea midline, no thyromegaly Respiratory: no respiratory distress Auscultation: + diminished lung sounds and + crackles (Minimal crackles at the bases) Cardiovascular: Rate/Rhythm: regular rate and regular rhythm; not tachycardic Heart Sounds: normal S1 and normal S2; no murmur Extremities: + edema (Trace edema bilaterally) Gastrointestinal (Abdomen): Inspection/Auscultation: normal bowel sounds; abdomen not distended Percussion/Palpation: abdomen soft; abdomen nontender Musculoskeletal: No acute arthritis involving any of the joint Neurologic: normal touch/pain/proprioception and moves all extremities; no focal motor deficits Psychiatric: A+Ox3, euthymic affect Lymphatic: no cervical or axillary lymphadenopathy Results & Data Results & Data Vital Signs (Past 12 Hours) Vital Signs Temp Pulse Pulse Pulse Resp BP BP 09/15/22 12:00 65 169/98 H 09/15/22 12:35 36.8 C 66 187/99 H 09/15/22 11:30 65 182/99 H 09/15/22 11:00 64 181/102 H 09/15/22 10:30 63 161/94 H 09/15/22 10:13 64 164/94 H 09/15/22 10:05 36.8 C 09/15/22 09:00 70 09/15/22 07:23 36.8 C 68 18 155/74 H 09/15/22 02:39 36.4 C L 68 18 167/92 H Pulse Ox O2 Del Method O2 Flow Rate 09/15/22 12:00 09/15/22 12:35 09/15/22 11:30 09/15/22 11:00 09/15/22 10:30 09/15/22 10:13 09/15/22 10:05 09/15/22 09:00 09/15/22 07:23 99 Nasal Cannula 2 09/15/22 02:39 96 Room Air Laboratory Results Short CBC 09/15/22 Range/Units 08:37 WBC 4.30 L (4.8-10.8) K/ul Hgb 9.9 L (12.0-16.0) g/dl Hct 29.7 L (37.0-47.0) % Plt Count 111 L (130-400) K/uL BMP 09/15/22 08:37 Sodium 135 L Potassium 3.9 Chloride 97 L Carbon Dioxide 29 BUN 29 H Creatinine 7.74 H* D Glucose 115 H Calcium 11.0 H Medications Administered Current Inpatient Medications Acetaminophen (Acetaminophen 325 Mg Tab) 650 mg PO Q4H PRN PRN Reason: Pain or Fever Stop: 10/12/22 20:16 Amlodipine Besylate (Amlodipine Besylate 5 Mg Tab) 5 mg PO QAM [facility] Stop: 10/13/22 08:59 Last Admin: 09/15/22 07:55 Dose: 5 mg Aspirin (Aspirin 81 Mg Ectab) 81 mg PO QAM [facility] Stop: 10/13/22 08:59 Last Admin: 09/15/22 07:55 Dose: 81 mg Calcitriol (Calcitriol 0.25 Mcg Capsule) 0.5 mcg PO BID [facility] Stop: 10/15/22 08:59 Last Admin: 09/15/22 07:53 Dose: 0.5 mcg Calcium Acetate (Calcium Acetate 667 Mg Cap/Tab) 1,334 mg PO TIDM [facility] Stop: 10/13/22 07:59 Last Admin: 09/15/22 13:27 Dose: 1,334 mg Fluticasone Propionate (Fluticasone Propionate Na Spr 16 Gm Btl) 1 sprays KATHERINE DAILY PRN PRN Reason: Allergy Symptoms Stop: 10/12/22 20:16 Gabapentin (Gabapentin 100 Mg Cap) 100 mg PO BID [facility] Stop: 10/12/22 20:59 Last Admin: 09/15/22 07:54 Dose: 100 mg Heparin Sodium (Porcine) (Heparin Sod 5,000 Unit/0.5 Ml Vial) 5,000 units SQ Q8 [facility] Stop: 10/12/22 21:59 Last Admin: 09/15/22 13:28 Dose: 5,000 units Levothyroxine Sodium (Levothyroxine Sodium 100 Mcg Tablet) 100 mcg PO DAILYBB [facility] Stop: 10/13/22 06:29 Last Admin: 09/15/22 05:24 Dose: 100 mcg Magnesium Oxide (Magnesium Oxide 400 Mg Tab) 400 mg PO QAM [facility] Stop: 10/13/22 08:59 Last Admin: 09/15/22 07:54 Dose: 400 mg Metoprolol Tartrate (Metoprolol Tartrate 25 Mg Tab) 37.5 mg PO BID [facility] Stop: 10/12/22 20:59 Last Admin: 09/15/22 07:54 Dose: 37.5 mg Morphine Sulfate (Morphine Sulfate 2 Mg/Ml Carp) 2 mg IV Q4H PRN PRN Reason: Pain Stop: 09/28/22 12:51 Last Admin: 09/15/22 09:55 Dose: 2 mg Ondansetron HCl (Ondansetron Inj 2 Mg/Ml 2 Ml Vial) 4 mg IV Q6H PRN PRN Reason: Nausea Stop: 10/12/22 20:16 Last Admin: 09/13/22 04:26 Dose: 4 mg Oxycodone HCl (Oxycodone Hcl Ir 5 Mg Tab (Immediate Release)) 2.5 mg PO Q8H PRN PRN Reason: pain,severe Stop: 09/26/22 20:39 Last Admin: 09/15/22 05:24 Dose: 2.5 mg Pantoprazole Sodium (Pantoprazole 40 Mg Tab) 40 mg PO DAILYBB [facility] Stop: 10/13/22 06:29 Last Admin: 09/15/22 05:24 Dose: 40 mg Sodium Zirconium Cyclosilicate (Sodium Zirconium Cyclosilicate 10 Gm Packet) 10 gm PO DAILY@1500 [facility] Stop: 10/13/22 14:59 Last Admin: 09/14/22 16:44 Dose: 10 gm Vitamin B Complex/Folic Acid (Nephrocaps) 1 cap PO DAILY [facility] Stop: 10/13/22 08:59 Last Admin: 09/15/22 07:54 Dose: 1 cap (1) Abdominal pain Abdominal location: unspecified location Qualified Code(s): R10.9 - Unspecified abdominal pain
[2022-09-15] MEDS: SODIUM ZIRCONIUM CYCLOSILICATE 10 GM PACKET PO SCH (15:14)
--- NOTE | 2022-09-15 18:26 | Dialysis Progress Note ---
Date of Service September 15, 2022 Assessment & Plan (1) ESRD (end stage renal disease) on dialysis: Plan: Her normal HD days are MWF, She was last dialysed on 09/09 then first treatment 09/14 -chemsitries are ok /not critical though shows she's not had HD for some time > short tx today to make up cut hours yesterday -Volume status acceptable though HTN may reflect need for dialysis - after today, next HD for 09/16 - tolerated 2.2 L nd 2 L 09/15 fluid removal (2) Abdominal pain: Plan: d/t biliary duct dilatation and possibly with cystitis and pyelonephritis continue analgesia continue with renally dosed zosyn until cultures avaliable. calcium on high end and will continue lower rocaltrol dose bid >>>daily bmp (3) S/P parathyroidectomy: Plan: - lowered her calcitriol from tid 0.5 mcg to bid -daily bmp whiel in house -calcium needs to bechecked weekly at OP dialysis faciltity after med change >> asked d/c team to update OP unit with this tomorrow since OP unti not open today =continue the rest of the calcium replacement ( calcium acetate,calcium carbonate) at the moment. care coordinated w/ dr kaur (4) S/P thyroidectomy: Admission and Anticipated Discharge Date Admission Date: September 12, 2022 Subjective seen on HD this am at approx 1130; toelrating tx well; no futher back pain. wondering about GI seting Review of Systems 2 Review of Systems: All systems reviewed & are unremarkable except as noted in Subjective Physical Exam Constitutional: well developed and well nourished Eyes: EOM intact bilaterally ENMT: Ears: no external ear abnormality Nose: no external nose abnormality Mouth: + dry oral mucous membranes Neck: no nuchal rigidity Respiratory: normal respiratory effort Auscultation: + diminished lung sounds Cardiovascular: Rate/Rhythm: regular rate and regular rhythm Extremities: + AV fistula; no edema Gastrointestinal (Abdomen): Inspection/Auscultation: normal bowel sounds Percussion/Palpation: abdomen soft; abdomen nontender Musculoskeletal: Extremities: strength 5/5 throughout Skin: no rashes, warm and dry Results & Data Vital Signs (Past 12 Hours) Vital Signs Temp Pulse Pulse Pulse Resp BP BP 09/15/22 17:23 36.6 C 69 66 18 165/81 H 09/15/22 15:08 36.6 C 69 18 165/81 H 09/15/22 12:00 65 169/98 H 09/15/22 12:35 36.8 C 66 187/99 H 09/15/22 11:30 65 182/99 H 09/15/22 11:00 64 181/102 H 09/15/22 10:30 63 161/94 H 09/15/22 10:13 64 164/94 H 09/15/22 10:05 36.8 C 09/15/22 09:00 70 09/15/22 07:23 36.8 C 68 18 155/74 H Pulse Ox O2 Del Method O2 Flow Rate 09/15/22 17:23 94 09/15/22 15:08 94 Room Air 09/15/22 12:00 09/15/22 12:35 09/15/22 11:30 09/15/22 11:00 09/15/22 10:30 09/15/22 10:13 09/15/22 10:05 09/15/22 09:00 09/15/22 07:23 99 Nasal Cannula 2 Laboratory Results 09/15/22 08:37 09/15/22 08:37 ca 11 (2) Abdominal pain Abdominal location: unspecified location Qualified Code(s): R10.9 - Unspecified abdominal pain
== END 2022-09-15 17:27 | disposition home or self-care (01) | DRG 444 ==
LOC: ED 11:47 → 2N 18:09 → SUATTDRO 18:09 → 2N 20:00

== ENCOUNTER 2022-09-22 16:30 | Inpatient (IN) ==
--- NOTE | 2022-09-22 17:08 | XRay Report ---
XR chest 1V portable HISTORY: Difficulty breathing. Chest pain, nonspecific COMPARISON: Chest 07/21/2012. FINDINGS: No pneumothorax. No pleural effusions. The cardiac silhouette remains mildly enlarged. No f ocal lung consolidations to suggest a pneumonia. There is mild diffuse interstitial thickening. This may be chronic or represent mild congestive change. IMPRESSION: 1. Stable cardiomegaly. 2. Mild diffuse interstitial thickening again noted. This could be chronic or represent mild congesti ve change. ACT 112: Negative or not required by law. Electronically signed by: Jesus Alberto Hernández M.D. 09/22/2022 5:07 PM
[2022-09-22 17:39] LABS: Basophils # (auto) 0.03 K/uL (0-0.2); Basophils % (auto) 0.5 %; Eosinophils # (auto) 0.16 K/uL (0-0.50); Eosinophils % (auto) 2.9 %; Hemoglobin 9.7 g/dl (12.0-16.0); Immature Granulocytes # (auto) 0.02 K/uL (0.01-0.20); Immature Granulocytes % (auto) 0.4 %; Lymphocytes # (auto) 1.52 K/uL (1.2-3.4); Lymphocytes % (auto) 27.7 %; Mean Corpuscular Hemoglobin 30.4 pg (25.0-34.0); Mean Corpuscular Hgb Conc 34.6 g/dL (32.0-36.0); Mean Corpuscular Volume 87.8 fL (80.0-100.0); Mean Platelet Volume 9.5 fL (9.4-12.4); Monocytes # (auto) 0.84 K/uL (0.11-0.59); Monocytes % (auto) 15.3 %; Neutrophils # (auto) 2.91 K/uL (1.40-6.50); Neutrophils % (auto) 53.2 %; Platelet Count 115 K/uL (130-400); Red Blood Count 3.19 M/uL (4.20-5.40); White Blood Count 5.48 K/ul (4.8-10.8)
[2022-09-22 18:00] LABS: Albumin Level 4.1 gm/dl (3.4-5.0); BUN Creatinine Ratio 3.5 (10-20); Bilirubin Direct 0.1 mg/dl (0-0.2); Bilirubin,Total 0.6 mg/dl (0.2-1.0); Calcium 10.5 mg/dl (8.6-10.3); Est GFR (African American) 6.5 ml/min; Est GFR (Non-African American) 5.6 ml/min; Potassium 3.4 mmol/L (3.5-5.1); Total Protein 6.4 gm/dl (6.0-8.3)
[2022-09-22 18:05] LABS: Partial Thromboplastin Time 28.3 Seconds (21.0-31.0); Prothrombin Time 11.2 Seconds (9.0-12.0)
[2022-09-22 18:09] LABS: Troponin I High Sensitivity 13.3 pg/ml (0-14)
--- NOTE | 2022-09-22 18:12 | Emergency Department Note ---
History of Present Illness General Chief Complaint: Shortness of Breath/Dyspnea Stated Complaint: REF BY JAMEEL RABAGO Time Seen by Provider: 09/22/22 16:41 History of Present Illness Provider Complaint: shortness of breath Onset (ago): day(s) (2) Severity: moderate Consistency/Duration: + progressively worsening Maximum Pain Intensity: 8 Relieved By: + upright position Exacerbated By: + lying flat Associated symptoms: + orthopnea; no chest pain, no pain with inspiration, no fever, no sputum production, no hemoptysis, no diaphoresis, no abdominal pain or no chest congestion Treatment prior to arrival: none Related Data Home oxygen amount: none Home Medications Medication Instructions Recorded Confirmed Type aspirin 81 mg chewable tablet 81 mg PO QAM 04/23/18 09/22/22 History fluticasone propionate 50 1 spray intranasal DAILY PRN 04/23/18 09/22/22 History mcg/actuation nasal Allergy Symptoms spray,suspension (Flonase Allergy Relief) gabapentin 100 mg capsule 100 mg PO BID 04/23/18 09/22/22 History omeprazole 40 mg capsule,delayed 40 mg PO DAILYBB 04/23/18 09/22/22 History release magnesium oxide 400 mg PO QAM 03/08/22 09/22/22 History amlodipine 5 mg tablet 5 mg PO BID 07/21/22 09/22/22 History levothyroxine 100 mcg tablet 100 mcg PO DAILYBB 07/21/22 09/22/22 History metoprolol tartrate 25 mg tablet 37.5 mg PO BID 07/21/22 09/22/22 History ondansetron HCl 8 mg tablet 8 mg PO TID PRN PRIOR TO 07/21/22 09/22/22 History CHEMOTHERAPY MEDS prochlorperazine maleate 10 mg 10 mg PO Q6H PRN NAUSEA/VOMITING 07/21/22 09/22/22 History tablet (Compazine) triamcinolone acetonide 0.1 % 1 applic topical 2XWK PRN Skin 07/21/22 09/22/22 History topical cream Irritation vitamin B complex and vitamin C 1 cap PO DAILY 07/21/22 09/22/22 History no.20-folic acid 1 mg capsule (Mccormick Caps) calcium acetate(phosphat bind) 667 1,334 mg PO TIDM #180 caps 07/28/22 09/22/22 Rx mg capsule sodium zirconium cyclosilicate 10 10 g PO DAILY@1500 #30 ea 07/28/22 09/22/22 Rx gram oral powder packet (Lokelma) oxycodone-acetaminophen 2.5 mg-325 1 tab PO Q8H PRN pain,severe 09/12/22 09/22/22 History mg tablet calcitriol 0.5 mcg capsule 0.5 mcg PO BID #1 cap 09/15/22 09/22/22 Rx hydralazine 10 mg tablet 10 mg PO AMPM 09/22/22 09/22/22 History imatinib 100 mg tablet (Gleevec) 200 mg PO QAM 09/22/22 09/22/22 History Allergies Allergy/AdvReac Type Severity Reaction Status Date / Time levofloxacin AdvReac Severe C-DIFF Verified 09/22/22 18:48 Past Med/Surg History Medical History Abnormal stress test 01/2021 (reversible anterior and basal lateral defect consistent with ischemia vs soft tissue attenuation artifact) per [facility] cardio records, plan for medical management and consideration for DSE at 03/2021 appt; final determination per [facility] cardio is recommendation for diagnostic cardiac catheterization not yet scheduled by patient; now advised risk > benefit per [facility] cardio Anemia in chronic kidney disease AV fistula left upper arm (functioning), also one to left wrist, but does not function properly Chronic back pain COPD (chronic obstructive pulmonary disease) stable per pt, no longer using supplemental oxygen-states home pulse ox readings are consistently 97% or greater-pt states provider is aware COVID-19 01/29/22-not hospitalized-symptoms fully resolved ESRD (end stage renal disease) on dialysis MWF at [facility] in [place] 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 At least 1 of the peritoneal dialysis catheters had to be removed because of peritonit is..." HLD (hyperlipidemia) HTN (hypertension) controlled, stable per pt Hypocalcemia Hypothyroidism supplementation d/c by PCP d/t low TSH with elevated free T4 and T3, patient symptomatic-has not yet started advised beta darrell by PCP, + thyroid stimulating immunoglobulin and abnormal thyroid biopsy 12/02; pt was lost to f/u with [facility] endocrinology, now scheduled 05/2022 Limb alert care status left arm Migraine Neck pain h/o UE paresthesias; pt states neck pain and upper extremity abnormal s ymptoms fully resolved Palpitations on occasion-denies associated dizziness or lightheadedness-follows with [facility] cardio and PCP, notable current thyroid dysfunction; [facility] cardio advised 4 week or prn f/u-pt d/c initial beta darrell rx by cardio, did not initiate recommend alternate beta darrell from PCP yet Port-A-Cath in place Pulmonary hypertension Secondary hyperparathyroidism Sleep apnea severe per [facility] records, no device currently > has apt soon to see about getting back on device Thyroid nodule abnormal biopsy 12/02 with concerning results per S endo, + thyroid stimulating immunoglobulin; pt lost to f/u; now has [facility] endocrinology appointment 05/2022 Surgical History H/O cystoscopy History of appendectomy History of bilateral tubal ligation History of section x1 History of cholecystectomy History of colonoscopy History of esophagogastroduodenoscopy (EGD) History of kidney transplant 08/28/2016 @ [facility] [place] (right side) functions at only 10%--d/t ESRD > follows with Dr. Roldan History of laparoscopy History of surgery hx perm cath insertion & removal History of tonsillectomy and adenoidectomy History of tooth extraction History of wisdom tooth extraction Family History Grandmother (Paternal) Family history of diabetes mellitus Grandmother (Maternal) Family history of diabetes mellitus Family hx of colon cancer Mother Family hx of colon cancer Other No family history of adverse response to anesthesia Social History Smoking Status: Never smoker Tobacco Type: Cigarettes Second Hand Exposure: No; Do You Dip or Chew Tobacco: No; Hx Alcohol Use: No Hx Substance Use: No Preferred Language: Yemeni Communication Ability: Effective Plum Packer Required: No Beliefs That Will Affect Care: None marital status: Current Living Situation: Spouse Current Living Situation Comment: lives at home w spouse How many Children do You have: 1 Feels Safe at Home: Yes Assistive Devices: Glasses Physical Exam Vital Signs: Vital Signs - 24 hr 09/22/22 16:32 09/22/22 17:04 09/22/22 17:14 Temperature 37.2 C Temperature Source Temporal Artery Sc an Pulse Rate 73 70 Pulse Rate [Apical ] 73 Pulse Rate from Sp O2 Sensor Pulse Rhythm Regular Pulse Rhythm [Apic al] Regular Respiratory Rate 18 20 16 Respiratory Effort / Characteristics Non-Labored Non-Labored Sponta neous Respiratory Depth Normal Normal Respiratory Patter n Regular Blood Pressure 178/90 H Blood Pressure [Ri ght Arm] 168/96 H Blood Pressure Renay n 119 Blood Pressure Renay n [Right Arm] 120 Pulse Oximetry 98 94 95 Oxygen Delivery Me thod Room Air Room Air Nasal Cannula Oxygen Flow Rate 2 Sepsis Recent Feve r Within 48 Hours No Sepsis New/Unexpla ined Change in Men sheldon Status No Sepsis Action Take n by Nursing No Action Required Oxygen Flow Rate - Titration Pulse Oximetry Pos t Tiitration 09/22/22 17:20 09/22/22 17:13 09/22/22 17:13 Temperature Temperature Source Pulse Rate 70 70 Pulse Rate [Apical ] Pulse Rate from Sp O2 Sensor 71 Pulse Rhythm Pulse Rhythm [Apic al] Respiratory Rate 21 Respiratory Effort / Characteristics Respiratory Depth Respiratory Patter n Blood Pressure Blood Pressure [Ri ght Arm] Blood Pressure Renay n Blood Pressure Renay n [Right Arm] Pulse Oximetry 88 L 93 Oxygen Delivery Me thod Nasal Cannula Oxygen Flow Rate 0 Sepsis Recent Feve r Within 48 Hours Sepsis New/Unexpla ined Change in Men sheldon Status Sepsis Action Take n by Nursing Oxygen Flow Rate - Titration 2 Pulse Oximetry Pos t Tiitration 98 09/22/22 17:15 09/22/22 17:15 09/22/22 17:20 Temperature Temperature Source Pulse Rate 71 70 Pulse Rate [Apical ] Pulse Rate from Sp O2 Sensor 73 69 Pulse Rhythm Pulse Rhythm [Apic al] Respiratory Rate 10 L 9 L Respiratory Effort / Characteristics Respiratory Depth Respiratory Patter n Blood Pressure 168/96 H Blood Pressure [Ri ght Arm] Blood Pressure Renay n 131 Blood Pressure Renay n [Right Arm] Pulse Oximetry 91 96 Oxygen Delivery Me thod Oxygen Flow Rate Sepsis Recent Feve r Within 48 Hours Sepsis New/Unexpla ined Change in Men sheldon Status Sepsis Action Take n by Nursing Oxygen Flow Rate - Titration Pulse Oximetry Pos t Tiitration 09/22/22 17:30 09/22/22 17:30 09/22/22 17:40 Temperature Temperature Source Pulse Rate 72 71 Pulse Rate [Apical ] Pulse Rate from Sp O2 Sensor 71 71 Pulse Rhythm Pulse Rhythm [Apic al] Respiratory Rate 17 24 Respiratory Effort / Characteristics Respiratory Depth Respiratory Patter n Blood Pressure 181/104 H Blood Pressure [Ri ght Arm] Blood Pressure Renay n 123 Blood Pressure Renay n [Right Arm] Pulse Oximetry 96 95 Oxygen Delivery Me thod Oxygen Flow Rate Sepsis Recent Feve r Within 48 Hours Sepsis New/Unexpla ined Change in Men sheldon Status Sepsis Action Take n by Nursing Oxygen Flow Rate - Titration Pulse Oximetry Pos t Tiitration 09/22/22 17:50 09/22/22 18:00 09/22/22 18:00 Temperature Temperature Source Pulse Rate 72 74 Pulse Rate [Apical ] Pulse Rate from Sp O2 Sensor 71 74 Pulse Rhythm Pulse Rhythm [Apic al] Respiratory Rate 22 24 Respiratory Effort / Characteristics Respiratory Depth Respiratory Patter n Blood Pressure 171/98 H Blood Pressure [Ri ght Arm] Blood Pressure Renay n 117 Blood Pressure Renay n [Right Arm] Pulse Oximetry 96 98 Oxygen Delivery Me thod Oxygen Flow Rate Sepsis Recent Feve r Within 48 Hours Sepsis New/Unexpla ined Change in Men sheldon Status Sepsis Action Take n by Nursing Oxygen Flow Rate - Titration Pulse Oximetry Pos t Tiitration 09/22/22 18:10 09/22/22 18:20 Temperature Temperature Source Pulse Rate 73 Pulse Rate [Apical ] Pulse Rate from Sp O2 Sensor 74 71 Pulse Rhythm Pulse Rhythm [Apic al] Respiratory Rate 17 Respiratory Effort / Characteristics Respiratory Depth Respiratory Patter n Blood Pressure Blood Pressure [Ri ght Arm] Blood Pressure Renay n Blood Pressure Renay n [Right Arm] Pulse Oximetry 97 98 Oxygen Delivery Me thod Oxygen Flow Rate Sepsis Recent Feve r Within 48 Hours Sepsis New/Unexpla ined Change in Men sheldon Status Sepsis Action Take n by Nursing Oxygen Flow Rate - Titration Pulse Oximetry Pos t Tiitration Physical Exam: HENT: Exam performed. -Head: Normocephalic and atraumatic. -Right Ear: External ear normal. No mastoid erythema -Left Ear: External ear normal. No mastoid erythema -Mouth/Throat: The oropharynx is clear and moist. No trismus in the jaw. No dental abscesses or uvula swelling. No oropharyngeal exudate or tonsillar abscesses. EYES: Conjunctivae and EOM are normal.Right eye exhibits no discharge. Left eye exhibits no discharge. No scleral icterus. NECK: Normal range of motion. Neck supple. No JVD present. No tracheal deviation and normal range of motion present. CV: Normal rate, regular rhythm, normal heart sounds and intact distal pulses. There is no peripheral edema. Palpable radial pulses bue. PULM/CHEST: Effort normal and breath sounds normal. No respiratory distress. No stridor. She has no wheezes. She has no rales. -Chest Wall: She exhibits no tenderness. ABD: The abdomen is soft. She has no distension. No mass is present. There is tenderness to palpation of the right upper quadrants. There is no rebound, no guarding, no Lopez's sign and no tenderness at McBurney's point. Rovsig negative. MUSC/SKEL: Normal range of motion. There is no peripheral edema, tenderness or deformity. Left AV fistula present with palpable thrill NEURO: Motor and sensation grossly intact. SKIN: Skin is warm and dry. She is not diaphoretic. PSYCH: She has a normal mood and affect. Behavior is normal. Judgment and thought content normal. Course Course 1641: The patient was evaluated in room B8. A complete history and physical exam was performed Cardiac monitoring: An order was placed for continuous cardiac monitoring. The monitor shows a rate of 70 with sinus rhythm interpreted by ky 1723: Patient became hypoxic on room air supplemental oxygen was applied via nasal cannula which improved her oxygen saturation. 192: Vital signs stable supplemental oxygen via nasal cannula. Labs show a white blood cell count of 5.48 hemoglobin 9.7 creatinine stable at 7.06. CTA shows no infiltrate or pulmonary embolus. Patient is fluid overloaded. Patient will be admitted to the [facility]. Patient is fluid overloaded and hypoxic is most likely secondary to her needing dialysis tomorrow. No need for emergent dialysis at this time as patient is satting well on nasal cannula. Patient will be admitted to Dr. Omer's team. Administered Medications Discontinued Medications Ioversol (Optiray 320 125ml) 114 ml IV ONCE ONE Stop: 09/22/22 18:37 Last Admin: 09/22/22 18:36 Dose: 114 ml Documented By: CLYDE Medical Decision Making Laboratory Data Attestation: I reviewed the patient's lab results. 09/22/22 17:10 07/13/23 17:10 Lab Results 09/22/22 09/22/22 09/22/22 Range/Units 17:10 17:10 17:10 WBC 5.48 (4.8-10.8) K/ul RBC 3.19 L (4.20-5.40) M/uL Hgb 9.7 L (12.0-16.0) g/dl Hct 28.0 L (37.0-47.0) % MCV 87.8 (80.0-100.0) fL MCH 30.4 (25.0-34.0) pg MCHC 34.6 (32.0-36.0) g/dL RDW Std Deviation 45.0 (36.4-46.3) fL RDW Coeff of [place] 14.0 (11.5-14.5) % Plt Count 115 L (130-400) K/uL MPV 9.5 (9.4-12.4) fL Immature Gran % (Auto) 0.4 % Neut % (Auto) 53.2 % Lymph % (Auto) 27.7 % [place] % (Auto) 15.3 % Eos % (Auto) 2.9 % Baso % (Auto) 0.5 % Neut # (Auto) 2.91 (1.40-6.50) K/uL Lymph # (Auto) 1.52 (1.2-3.4) K/uL [place] # (Auto) 0.84 H (0.11-0.59) K/uL Eos # (Auto) 0.16 (0-0.50) K/uL Baso # (Auto) 0.03 (0-0.2) K/uL Immature Gran # (Auto) 0.02 (0.01-0.20) K/uL PT 11.2 (9.0-12.0) Seconds INR 1.0 (0.9-1.1) APTT 28.3 (21.0-31.0) Seconds PTT Ratio 1.0 Sodium 132 L (136-145) mmol/L Potassium 3.4 L (3.5-5.1) mmol/L Chloride 92 L (98-107) mmol/L Carbon Dioxide 29 (21-32) mmol/L Anion Gap 11 (3-11) BUN 25 H (6-23) mg/dl Creatinine 7.06 H* (0.6-1.2) mg/dl Est Cr Clr Drug Dosing 9.0 ml/min Est GFR ( Amer) 6.5 ml/min Est GFR (Non-Af Amer) 5.6 ml/min BUN/Creatinine Ratio 3.5 L (10-20) Glucose 94 (70-99(Fasting)) mg/dl Calcium 10.5 H (8.6-10.3) mg/dl Total Bilirubin 0.6 (0.2-1.0) mg/dl Direct Bilirubin 0.1 (0-0.2) mg/dl AST 18 (13-39) U/L ALT 12 (7-52) U/L Alkaline Phosphatase 59 (34-104) U/L Troponin I High Sens 13.3 (0-14) pg/ml Total Protein 6.4 (6.0-8.3) gm/dl Albumin 4.1 (3.4-5.0) gm/dl Lipase 34 (11-82) U/L Imaging Data Attestation: I personally reviewed and interpreted this imaging study as follows: My Impression: Chest x-ray negative. Airway clear. No pneumothorax. No consolidation. No cardiomegaly or cephalization.. No free air under the diaphragm. No fractures of the skeletal structures. Radiologist's Impression: Chest CTA 09/22/22 16:42 CHEST CTA for PULMONARY ARTERIES CT DOSE: 761.06 mGy.cm HISTORY: Shortness of breath. Chest Pain, eval for PE TECHNIQUE: Multiaxial CT images of the chest were performed following the intravenous administration of contrast to evaluate the pulmonary arteries. 3D/Maximal intensity projection images were also obtained. Sagittal and coronal reformations were also reviewed. A dose lowering technique was utilized adhering to the principles of ALARA. COMPARISON STUDY: Abdomen and pelvis CT 09/12/2022. FINDINGS: Limited views the upper abdomen again demonstrate intrahepatic bile duct dilatation. This is similar to the prior abdomen and pelvis CT. No significant pleural effusions. No pericardial effusion. The heart is mildly enlarged. Prior thyroidectomy. Normal esophagus. No hilar lymphadenopathy. S ubcentimeter mediastinal lymph nodes do not meet CT criteria for pathologic involvement. A right jugular Port-A-Cath terminates in the SVC. A 1.3 cm lesion within the left humeral neck favors a benign cartilaginous lesion. No acute fractures identified. There is a faint 1.1 cm sclerotic lesion within the T4 vertebral body. This is indeterminate. Mild calcified plaque within the normal caliber thoracic aorta. No filling defects within the pulmonary arteries to suggest a pulmonary embolus. No pneumothorax. The central airways are patent. A 4 mm nodule within the left lower lobe on image 69. There is mild interlobular septal thickening. This suggests mild congestive change. A 4 mm nodule within the right middle lobe on image 68. Mild dependent changes are seen at the lung bases. A 5 mm nodule with central calcification on image 82. A few scattered peripheral reticulonodular densities. This may be chronic. This is most pronounced within the right upper lobe medially on image 135. A mild infectious bronchiolitis could also have a similar appearance. IMPRESSION: 1. No evidence for a pulmonary embolus. 2. Mild interlobular septal thickening. This suggests mild congestive change. 3. Mild cardiomegaly. 4. A few scattered peripheral reticulonodular densities. This may be chronic or could be due to a mild infectious bronchiolitis. 5. Stable intrahepatic bile duct dilatation. 6. Cardiomegaly. 7. A 1.1 cm indeterminate sclerotic focus within the T4 vertebral body. Attention at follow-up is recommended. 8. A few subcentimeter indeterminate pulmonary nodules measure up to 5 mm. Please refer to below summary of Fleischner criteria recommendations for follow- up of incidental CT nodules (Rob Rasheed, Guidelines for management of small pulmonary nodules detected on CT scans: A statement from the Fleischner Society, Radiology 237: [phone].) SOLID NODULES Solitary nodule size: <6 mm * Low risk patients: no follow-up needed * high risk patients: optional CT at 12 months Solitary nodule size: 6-8 mm * Low risk patients: follow-up at 6-12 months, then consider further follow-up at 18-24 months * high risk patients: initial follow-up CT at 6-12 months and then at 18-24 months if no change Solitary nodule size: >8 mm * either low or high risk patients - consider follow-up CT at 3 months, and/or CT-PET, and/or biopsy Multiple nodules size: <6 mm * Low risk patients: no routine follow-up * high risk patients: optional CT at 12 months Multiple nodules size: 6-8 mm * Low risk patients: follow-up at 3-6 months, then consider further follow-up at 18-24 months * high risk patients: follow-up at 3-6 months, then at 18-24 months if no change Multiple nodules size: >8 mm * Low risk patients: follow-up at 3-6 months, then consider further follow-up at 18-24 months * high risk patients: follow-up at 3-6 months, then at 18-24 months if no change Note: newly detected indeterminate nodule in persons 35 years of age or older. * Low risk patients: minimal or absent history of smoking and/or other known risk factors * high risk patients: history of smoking or of other known risk factors (e.g. first degree relative with lung cancer, or exposure to asbestos, radon, uranium) * if a nodule up to 8 mm is partly solid or is ground glass further follow-up is required after 24 months to exclude possible slow growing adenocarcinoma ([place]) SUBSOLID NODULES Solitary pure ground-glass nodule * nodule size <6 mm - no CT follow-up required * nodule size >=6 mm - follow-up CT at 6-12 months, then every 2 years until 5 years Solitary part-solid nodule * nodule size <6 mm - no CT follow-up required * nodule size >=6 mm - follow-up CT at 3-6 months. If unchanged, and solid component remains <6 mm, then annual follow-up for 5 years Multiple subsolid nodules * nodule size <6 mm - follow-up CT at 3-6 months, consider further follow-up at 2 and 4 years if stable * nodule size >=6 mm - follow-up CT at 3-6 months, subsequent management based on the most suspicious nodule(s) ACT 112: Negative or not required by law. Electronically signed by: Jesus Alberto Hernández M.D. 09/22/2022 6:55 PM Chest X-Ray 09/22/22 16:42 XR chest 1V portable HISTORY: Difficulty breathing. Chest pain, nonspecific COMPARISON: Chest 07/21/2012. FINDINGS: No pneumothorax. No pleural effusions. The cardiac silhouette remains mildly enlarged. No focal lung consolidations to suggest a pneumonia. There is mild diffuse interstitial thickening. This may be chronic or represent mild congestive change. IMPRESSION: 1. Stable cardiomegaly. 2. Mild diffuse interstitial thickening again noted. This could be chronic or represent mild congestive change. ACT 112: Negative or not required by law. Electronically signed by: Jesus Alberto Hernández M.D. 09/22/2022 5:07 PM ECG Data Attestation: I personally reviewed and interpreted this ECG as follows: Interpretation: Sinus rhythm with rate of 69. VA 180 QRS [address] elevation or ST depression. Right bundle branch block present. [facility] Narrative 1641: The patient was evaluated in room B8. A complete history and physical exam was performed Cardiac monitoring: An order was placed for continuous cardiac monitoring. The monitor shows a rate of 70 with sinus rhythm interpreted by me 1723: Patient became hypoxic on room air supplemental oxygen was applied via nasal cannula which improved her oxygen saturation. 1921: Vital signs stable supplemental oxygen via nasal cannula. Labs show a white blood cell count of 5.48 hemoglobin 9.7 creatinine stable at 7.06. CTA shows no infiltrate or pulmonary embolus. Patient is fluid overloaded. Patient will be admitted to the [facility]. Patient is fluid overloaded and hypoxic is most likely secondary to her needing dialysis tomorrow. No need for emergent dialysis at this time as patient is satting well on nasal cannula. Patient will be admitted to Dr. Omer's team. Impression & Plan Hypoxia, Fluid overload Critical Care Time Critical Care Time: Yes Total Critical Care Time: 37 I have personally spent greater than 37 minutes of critical care time in the direct management of this patient. This includes bedside care, interpretation of diagnostic studies, and testing, discussion with consultants, patient, and family members, and other required patient management activities. This 37 minutes is in excess of all separately billable procedures. Discharge Plan Visit Data Chief Complaint: Shortness of Breath/Dyspnea Stated Complaint: REF BY GEM, JAMEEL ED Provider: Gume Walker Discharge Problem: Hypoxia, Fluid overload Patient Disposition: Admitted As Inpatient Forms Stand Alone Forms: My [facility] Prescriptions Prescriptions: No Action omeprazole 40 mg Capsule,Delayed Release(Dr/Ec) 40 mg PO DAILYBB aspirin 81 mg Tablet,Chewable 81 mg PO QAM Rx Instructions: TAKE WITH FOOD gabapentin 100 mg Capsule 100 mg PO BID fluticasone propionate [Flonase Allergy Relief] 50 mcg/actuation [place] spension 1 spray INTRANASAL DAILY PRN (Reason: Allergy Symptoms) magnesium oxide 400 mg magnesium Tablet 400 mg PO QAM ondansetron HCl 8 mg Tablet 8 mg PO TID PRN (Reason: PRIOR TO CHEMOTHERAPY MEDS) amlodipine 5 mg Tablet 5 mg PO BID prochlorperazine maleate [Compazine] 10 mg Tablet 10 mg PO Q6H PRN (Reason: NAUSEA/VOMITING) triamcinolone acetonide 0.1 % Cream 1 applic TOPICAL 2XWK PRN (Reason: Skin Irritation) levothyroxine 100 mcg Tablet 100 mcg PO DAILYBB Mccormick Caps 1 mg Capsule 1 cap PO DAILY Rx Instructions: TAKE AFTER DIALYSIS TREATMENT metoprolol tartrate 25 mg Tablet 37.5 mg PO BID Rx Instructions: TAKE 1 1/2 TABS BID calcium acetate(phosphat bind) 667 mg Capsule 1,334 mg PO TIDM Qty: 180 0RF Lokelma 10 gram Powder In Packet 10 g PO DAILY@1500 Qty: 30 0RF oxycodone-acetaminophen 2.5-325 mg Tablet 1 tab PO Q8H PRN (Reason: pain,severe) calcitriol 0.5 mcg Capsule 0.5 mcg PO BID Qty: 1 0RF hydralazine 10 mg Tablet 10 mg PO AMPM imatinib [Gleevec] 100 mg Tablet 200 mg PO QAM Rx Instructions: TAKE WITH A MEAL Referrals Referrals: Jameel Reyna DO [Primary Care Provider] -
[2022-09-22] MEDS ORDERED: OPTIRAY 320 125ml IV ONE (18:36)
--- NOTE | 2022-09-22 18:58 | CT Scan Report ---
CHEST CTA for PULMONARY ARTERIES CT DOSE: 761.06 mGy.cm HISTORY: Shortness of breath. Chest Pain, eval for PE TECHNIQUE: Multiaxial CT images of the chest were performed following the intravenous administration of contrast to evaluate the pulmonary arteries. 3D/Maximal intensity projection images were also obta ined. Sagittal and coronal reformations were also reviewed. A dose lowering technique was utilized a dhering to the principles of ALARA. COMPARISON STUDY: Abdomen and pelvis CT 09/12/2022. FINDINGS: Limited views the upper abdomen again demonstrate intrahepatic bile duct dilatation. This i s similar to the prior abdomen and pelvis CT. No significant pleural effusions. No pericardial effusi on. The heart is mildly enlarged. Prior thyroidectomy. Normal esophagus. No hilar lymphadenopathy. Camacho bcentimeter mediastinal lymph nodes do not meet CT criteria for pathologic involvement. A right jugul ar Port-A-Cath terminates in the SVC. A 1.3 cm lesion within the left humeral neck favors a benign ca rtilaginous lesion. No acute fractures identified. There is a faint 1.1 cm sclerotic lesion within th e T4 vertebral body. This is indeterminate. Mild calcified plaque within the normal caliber thoracic aorta. No filling defects within the pulmonary arteries to suggest a pulmonary embolus. No pneumothor ax. The central airways are patent. A 4 mm nodule within the left lower lobe on image 69. There is mi ld interlobular septal thickening. This suggests mild congestive change. A 4 mm nodule within the rig ht middle lobe on image 68. Mild dependent changes are seen at the lung bases. A 5 mm nodule with osmani tral calcification on image 82. A few scattered peripheral reticulonodular densities. This may be chr onic. This is most pronounced within the right upper lobe medially on image 135. A mild infectious br onchiolitis could also have a similar appearance. IMPRESSION: 1. No evidence for a pulmonary embolus. 2. Mild interlobular septal thickening. This suggests mild congestive change. 3. Mild cardiomegaly. 4. A few scattered peripheral reticulonodular densities. This may be chronic or could be due to a mil d infectious bronchiolitis. 5. Stable intrahepatic bile duct dilatation. 6. Cardiomegaly. 7. A 1.1 cm indeterminate sclerotic focus within the T4 vertebral body. Attention at follow-up is rec ommended. 8. A few subcentimeter indeterminate pulmonary nodules measure up to 5 mm. Please refer to below summary of Fleischner criteria recommendations for follow-up of incidental CT n odules (Rob Rasheed, Guidelines for management of small pulmonary nodules detected on CT scans: A lee fernandez from the Fleischner [employer], Radiology 237: [phone].) SOLID NODULES Solitary nodule size: <6 mm * Low risk patients: no follow-up needed * high risk patients: optional CT at 12 months Solitary nodule size: 6-8 mm * Low risk patients: follow-up at 6-12 months, then consider further follow-up at 18-24 months * high risk patients: initial follow-up CT at 6-12 months and then at 18-24 months if no change Solitary nodule size: >8 mm * either low or high risk patients - consider follow-up CT at 3 months, and/or CT-PET, and/or biopsy Multiple nodules size: <6 mm * Low risk patients: no routine follow-up * high risk patients: optional CT at 12 months Multiple nodules size: 6-8 mm * Low risk patients: follow-up at 3-6 months, then consider further follow-up at 18-24 months * high risk patients: follow-up at 3-6 months, then at 18-24 months if no change Multiple nodules size: >8 mm * Low risk patients: follow-up at 3-6 months, then consider further follow-up at 18-24 months * high risk patients: follow-up at 3-6 months, then at 18-24 months if no change Note: newly detected indeterminate nodule in persons 35 years of age or older. * Low risk patients: minimal or absent history of smoking and/or other known risk factors * high risk patients: history of smoking or of other known risk factors (e.g. first degree relative with lung cancer, or exposure to asbestos, radon, uranium) * if a nodule up to 8 mm is partly solid or is ground glass further follow-up is required after 24 m onths to exclude possible slow growing adenocarcinoma ([facility]) SUBSOLID NODULES Solitary pure ground-glass nodule * nodule size <6 mm - no CT follow-up required * nodule size >=6 mm - follow-up CT at 6-12 months, then every 2 years until 5 years Solitary part-solid nodule * nodule size <6 mm - no CT follow-up required * nodule size >=6 mm - follow-up CT at 3-6 months. If unchanged, and solid component remains <6 mm, then annual follow-up for 5 years Multiple subsolid nodules * nodule size <6 mm - follow-up CT at 3-6 months, consider further follow-up at 2 and 4 years if sta ble * nodule size >=6 mm - follow-up CT at 3-6 months, subsequent management based on the most suspiciou s nodule(s) ACT 112: Negative or not required by law. Electronically signed by: Jesus Alberto Hernández M.D. 09/22/2022 6:55 PM
--- NOTE | 2022-09-22 19:24 | History & Physical Report ---
Date of Service September 22, 2022 Assessment & Plan (1) Hypoxia: (2) Fluid overload: Plan This is a 66-year-old female who has significant past medical history of chronic hypoxemic respiratory failure, COPD, HTN, pulmonary hypertension, hyperlipidemia, secondary renal hyperparathyroidism, Graves' disease, HCEYENNE, CKD stage V on dialysis, kidney transplant failure, anemia of renal disease, history of VRE, history of thyroid cancer who presents to ED secondary toSOB x 1 week. Recently hospitalized 07/21-07/28 2/2 profound hypocalcemia after having a total thyroidectomy and 3.5 gland parathyroidectomy Again hospitalized 09/12-09/15 2/2 abd pain. Infection r/o, negative UA and culture. Significantly dilated CBD, GI recent OP EUS/ERCP. 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 Recent OP Chest CT concerning for medastinal mass and gui lesions L humerus and T4; however had bone scan 09/22 which was negative for gui uptake CTA today negative for PE, no mediastinal mass noted, < 5mm pulm nodules noted and congestion change. 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 Xavier Recent thyroidectomy/parathyroidectomy in June with pathology showing right parathyroid adenoma, noninvasive follicular thyroid neoplasm with papillary-like features, parathyroid hyperplasia noted. HTN- hydralazine recently added to regimen FULL CODE PCP: Axel Pt was collaborated with Dr. Echavarria, please refer to his addendum for details regarding his assessment and plan. History of Present Illness Chief Complaint: SOB x 1 week Primary Care Provider: Jameel Reyna, This is a 66-year-old female who has significant past medical history of chronic hypoxemic respiratory failure, COPD, HTN, pulmonary hypertension, hyperlipidemia, secondary renal hyperparathyroidism, Graves' disease, CHEYENNE, CKD stage V on dialysis, kidney transplant failure, anemia of renal disease, history of VRE, history of thyroid cancer who presents to ED secondary toSOB x 1 week. She is a hemodialysis patient. Her last treatment was on Monday. Patient was recently admitted 10/09 discharged on 09/15 secondary to abdominal pain. Initially was concern for possible pyelonephritis however urine and blood culture was negative. Imaging during that hospital stay also revealed intrahepatic and extrahepatic biliary ductal dilatation. MRCP was obtained. GI saw patient and plan is for outpatient EUS/ERCP. Symptoms resolved during ho spital stay and she was discharged to home. She continued hemodialysis while inpatient. She states at discharge she was feeling well and then gradually has been getting more short of breath over the last week. Shortness of breath is worse when lying flat and has been unable to sleep the last several nights due to unable to lay flat. She feels her weight has actually decreased and denies any lower extremity edema. She denies any shortness of breath with exertion like walking to and from the bathroom, but also states that she has not truly exerted herself over the last week. She does have a chronic productive cough but denies any purulent sputum or hemoptysis. She denies any fever, chills, sweats, lightheadedness, dizziness, chest pain, nausea, vomiting, abdominal pain, dysuria, hematuria, increased urgency or frequency with urination. She does still make urine despite hemodialysis. She currently has a left upper extremity fistula in place. She lives at home with her . Of significance she has been dealing with chronic right-sided back pain. Patient had a chest CT on 09/07 that revealed a new mediastinal mass, left humerus lesion and a T4 vertebral lesion. 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 She did undergo bone scan today which showed no suspicious osseous uptake with attention to the left humerus and T4 vertebral body as described on prior CT. Allergies Allergy/AdvReac Type Severity Reaction Status Date / Time levofloxacin AdvReac Severe C-DIFF Verified 09/22/22 18:48 Home Medications Medication Instructions Recorded Confirmed Type aspirin 81 mg chewable tablet 81 mg PO QAM 04/23/18 09/22/22 History fluticasone propionate 50 1 spray intranasal DAILY PRN 04/23/18 09/22/22 History mcg/actuation nasal Allergy Symptoms spray,suspension (Flonase Allergy Relief) gabapentin 100 mg capsule 100 mg PO BID 04/23/18 09/22/22 History omeprazole 40 mg capsule,delayed 40 mg PO DAILYBB 04/23/18 09/22/22 History release magnesium oxide 400 mg PO QAM 03/08/22 09/22/22 History amlodipine 5 mg tablet 5 mg PO BID 07/21/22 09/22/22 History levothyroxine 100 mcg tablet 100 mcg PO DAILYBB 07/21/22 09/22/22 History metoprolol tartrate 25 mg tablet 37.5 mg PO BID 07/21/22 09/22/22 History ondansetron HCl 8 mg tablet 8 mg PO TID PRN PRIOR TO 07/21/22 09/22/22 History CHEMOTHERAPY MEDS prochlorperazine maleate 10 mg 10 mg PO Q6H PRN NAUSEA/VOMITING 07/21/22 09/22/22 History tablet (Compazine) triamcinolone acetonide 0.1 % 1 applic topical 2XWK PRN Skin 07/21/22 09/22/22 History topical cream Irritation vitamin B complex and vitamin C 1 cap PO DAILY 07/21/22 09/22/22 History no.20-folic acid 1 mg capsule (Rolette Caps) calcium acetate(phosphat bind) 667 1,334 mg PO TIDM #180 caps 07/28/22 09/22/22 Rx mg capsule sodium zirconium cyclosilicate 10 10 g PO DAILY@1500 #30 ea 07/28/22 09/22/22 Rx gram oral powder packet (Lokelma) oxycodone-acetaminophen 2.5 mg-325 1 tab PO Q8H PRN pain,severe 09/12/22 09/22/22 History mg tablet imatinib 100 mg tablet (Gleevec) 200 mg PO PM 09/22/22 09/22/22 History calcitriol 0.5 mcg capsule 0.5 mcg PO DAILY #30 caps 09/24/22 09/22/22 Rx hydralazine 25 mg tablet 25 mg PO BID #60 tabs 09/24/22 Rx Past Med/Surg History Medical History Abnormal stress test 01/2021 (reversible anterior and basal lateral defect consistent with ischemia vs soft tissue attenuation artifact) per [facility] cardio records, plan for medical management and consideration for DSE at 03/2021 appt; final determination per [facility] cardio is recommendation for diagnostic cardiac catheterization not yet scheduled by patient; now advised risk > benefit per [facility] cardio Anemia in chronic kidney disease AV fistula left upper arm (functioning), also one to left wrist, but does not function properly Chronic back pain COPD (chronic obstructive pulmonary disease) stable per pt, no longer using supplemental oxygen-states home pulse ox readings are consistently 97% or greater-pt states provider is aware COVID-19 01/29/22-not hospitalized-symptoms fully resolved ESRD (end stage renal disease) on dialysis MWF at [facility] in [place] 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 At least 1 of the peritoneal dialysis catheters had to be removed because of peritonitis..." HLD (hyperlipidemia) HTN (hypertension) controlled, stable per pt Hypocalcemia Hypothyroidism supplementation d/c by PCP d/t low TSH with elevated free T4 and T3, patient symptomatic-has not yet started advised beta darrell by PCP, + thyroid stimulating immunoglobulin and abnormal thyroid biopsy 12/02; pt was lost to f/u with [facility] endocrinology, now scheduled 05/2022 Limb alert care status left arm Migraine Neck pain h/o UE paresthesias; pt states neck pain and upper extremity abnormal symptoms fully resolved Palpitations on occasion-denies associated dizziness or lightheadedness-follows with [facility] cardio and PCP, notable current thyroid dysfunction; [facility] cardio advised 4 week or prn f/u-pt d/c initial beta darrell rx by cardio, did not initiate recommend alternate beta darrell from PCP yet Port-A-Cath in place Pulmonary hypertension Secondary hyperparathyroidism Sleep apnea severe per [facility] records, no device currently > has apt soon to see about getting back on device Thyroid nodule abnormal biopsy 12/02 with concerning results per [facility] endo, + thyroid stimulating immunoglobulin; pt lost to f/u; now has [facility] endocrinology appointment 05/2022 Surgical History H/O cystoscopy History of appendectomy History of bilateral tubal ligation History of section x1 History of cholecystectomy History of colonoscopy History of esophagogastroduodenoscopy (EGD) History of [place] [facility] [place] functions at only 10%--d/t ESRD > follows with Dr. Roldan History of laparoscopy History of surgery hx perm cath insertion & removal History of tonsillectomy and adenoidectomy History of tooth extraction History of wisdom tooth extraction Family History Grandmother (Paternal) Family history of diabetes mellitus Grandmother (Maternal) Family history of diabetes mellitus Family hx of colon cancer Mother Family hx of colon cancer Other No family history of adverse response to anesthesia Social History Smoking Status: Former smoker Tobacco Type: Cigarettes Smoking End Date: 2002; Second Hand Exposure: No; Do You Dip or Chew Tobacco: No; Tobacco Cessation Education Requested by Patient: No Hx Alcohol Use: No Hx Substance Use: No Preferred Language: Comoran Communication Ability: Effective Dry Cleaning 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 Clerk Required: No Beliefs That Will Affect Care: None marital status: Current Living Situation: Spouse Current Living Situation Comment: lives at home w spouse How many Children do You have: 1 Other Information That Helps Us Care for You: No Feels Safe at Home: Yes Safety Concerns: Feels Safe At This Time Assistive Devices: Glasses Review of Systems Review of Systems: All systems reviewed & are unremarkable except as noted in HPI & below Physical Exam Physical Exam: Constitutional: Chronic ill appearing, WD/WN, vitals as above, NAD, sitting up in bed, pleasant, conversing easily but distracted by playing a game on her phone Head: Normocephalic, Atraumatic Eyes: PERRL, conjunctivae normal, anicteric sclerae ENMT: external ear and nose normal, oropharynx normal dry membranes Neck: trachea midline, no thyromegaly normal visual inspection Respiratory: normal respiratory effort, lungs clear to auscultation, no wheeze, rales, rhonchi. Normal insp/exp effort, no accessory muscle use Cardiovascular: RRR, 2/6 AMALIA noted RUSB, LUE AV fistula + bruit, no edema Vessels: no JVD or carotid bruit Chest: normal inspection of chest Abdomen: normal bowel sounds, soft, nontender, no hepatosplenomegaly Musculoskeletal: no cyanosis or clubbing, extremities motor strength 5/5 Skin: no rashes, warm and dry normal turgor Neurologic: PERRL, EOMI, accommodation nl, no face palsy, no dysarthria CN's II-XI intact bilaterally and moves all extremities Psychiatric: A+Ox3, dysthymic affect : deferred Results & Data Results & Data Vital Signs (Past 12 Hours) Vital Signs Temp Pulse Pulse Resp BP BP Pulse Ox 09/22/22 18:20 98 09/22/22 18:10 73 17 97 09/22/22 18:00 74 24 98 09/22/22 18:00 171/98 H 09/22/22 17:50 72 22 96 09/22/22 17:40 71 24 95 09/22/22 17:30 72 17 96 09/22/22 17:30 181/104 H 09/22/22 17:20 70 9 L 96 09/22/22 17:15 71 10 L 91 09/22/22 17:15 168/96 H 09/22/22 17:13 70 21 93 09/22/22 17:13 70 09/22/22 17:20 88 L 09/22/22 17:14 73 16 168/96 H 95 09/22/22 17:04 70 20 94 09/22/22 16:32 37.2 C 73 18 178/90 H 98 O2 Del Method O2 Flow Rate 09/22/22 18:20 09/22/22 18:10 09/22/22 18:00 09/22/22 18:00 09/22/22 17:50 09/22/22 17:40 09/22/22 17:30 09/22/22 17:30 09/22/22 17:20 09/22/22 17:15 09/22/22 17:15 09/22/22 17:13 09/22/22 17:13 09/22/22 17:20 Nasal Cannula 0 09/22/22 17:14 Nasal Cannula 2 09/22/22 17:04 Room Air 09/22/22 16:32 Room Air Diagnostic Findings Chest CTA 09/22/22 16:42 CHEST CTA for PULMONARY ARTERIES CT DOSE: 761.06 mGy.cm HISTORY: Shortness of breath. Chest Pain, eval for PE TECHNIQUE: Multiaxial CT images of the chest were performed following the intravenous administration of contrast to evaluate the pulmonary arteries. 3D/Maximal intensity projection images were also obtained. Sagittal and coronal reformations were also reviewed. A dose lowering technique was utilized adhering to the principles of ALARA. COMPARISON STUDY: Abdomen and pelvis CT 09/12/2022. FINDINGS: Limited views the upper abdomen again demonstrate intrahepatic bile duct dilatation. This is similar to the prior abdomen and pelvis CT. No significant pleural effusions. No pericardial effusion. The heart is mildly enlarged. Prior thyroidectomy. Normal esophagus. No hilar lymphadenopathy. Subcentimeter mediastinal lymph nodes do not meet CT criteria for pathologic involvement. A right jugular Port-A-Cath terminates in the SVC. A 1.3 cm lesion within the left humeral neck favors a benign cartilaginous lesion. No acute fractures identified. There is a faint 1.1 cm sclerotic lesion within the T4 vertebral body. This is indeterminate. Mild calcified plaque within the normal caliber thoracic aorta. No filling defects within the pulmonary arteries to suggest a pulmonary embolus. No pneumothorax. The central airways are patent. A 4 mm nodule within the left lower lobe on image 69. There is mild interlobular septal thickening. This suggests mild congestive change. A 4 mm nodule within the right middle lobe on image 68. Mild dependent changes are seen at the lung bases. A 5 mm nodule with central calcification on image 82. A few scattered peripheral reticulonodular densities. This may be chronic. This is most pronounced within the right upper lobe medially on image 135. A mild infectious bronchiolitis could also have a similar appearance. IMPRESSION: 1. No evidence for a pulmonary embolus. 2. Mild interlobular septal thickening. This suggests mild congestive change. 3. Mild cardiomegaly. 4. A few scattered peripheral reticulonodular densities. This may be chronic or could be due to a mild infectious bronchiolitis. 5. Stable intrahepatic bile duct dilatation. 6. Cardiomegaly. 7. A 1.1 cm indeterminate sclerotic focus within the T4 vertebral body. Attention at follow-up is recommended. 8. A few subcentimeter indeterminate pulmonary nodules measure up to 5 mm. Please refer to below summary of Fleischner criteria recommendations for follow- up of incidental CT nodules (Rob Rasheed, Guidelines for management of small pulmonary nodules detected on CT scans: A statement from the Fleischner Society, Radiology 237: [phone].) SOLID NODULES Solitary nodule size: <6 mm * Low risk patients: no follow-up needed * high risk patients: optional CT at 12 months Solitary nodule size: 6-8 mm * Low risk patients: follow-up at 6-12 months, then consider further follow-up at 18-24 months * high risk patients: initial follow-up CT at 6-12 months and then at 18-24 months if no change Solitary nodule size: >8 mm * either low or high risk patients - consider follow-up CT at 3 months, and/or CT-PET, and/or biopsy Multiple nodules size: <6 mm * Low risk patients: no routine follow-up * high risk patients: optional CT at 12 months Multiple nodules size: 6-8 mm * Low risk patients: follow-up at 3-6 months, then consider further follow-up at 18-24 months * high risk patients: follow-up at 3-6 months, then at 18-24 months if no change Multiple nodules size: >8 mm * Low risk patients: follow-up at 3-6 months, then consider further follow-up at 18-24 months * high risk patients: follow-up at 3-6 months, then at 18-24 months if no change Note: newly detected indeterminate nodule in persons 35 years of age or older. * Low risk patients: minimal or absent history of smoking and/or other known risk factors * high risk patients: history of smoking or of other known risk factors (e.g. first degree relative with lung cancer, or exposure to asbestos, radon, uranium) * if a nodule up to 8 mm is partly solid or is ground glass further follow-up is required after 24 months to exclude possible slow growing adenocarcinoma ([place]ANNAH) SUBSOLID NODULES Solitary pure ground-glass nodule * nodule size <6 mm - no CT follow-up required * nodule size >=6 mm - follow-up CT at 6-12 months, then every 2 years until 5 years Solitary part-solid nodule * nodule size <6 mm - no CT follow-up required * nodule size >=6 mm - follow-up CT at 3-6 months. If unchanged, and solid component remains <6 mm, then annual follow-up for 5 years Multiple subsolid nodules * nodule size <6 mm - follow-up CT at 3-6 months, consider further follow-up at 2 and 4 years if stable * nodule size >=6 mm - follow-up CT at 3-6 months, subsequent management based on the most suspicious nodule(s) ACT 112: Negative or not required by law. Electronically signed by: Jesus Alberto Hernández M.D. 09/22/2022 6:55 PM Chest X-Ray 09/22/22 16:42 XR chest 1V portable HISTORY: Difficulty breathing. Chest pain, nonspecific COMPARISON: Chest 07/21/2012. FINDINGS: No pneumothorax. No pleural effusions. The cardiac silhouette remains mildly enlarged. No focal lung consolidations to suggest a pneumonia. There is mild diffuse interstitial thickening. This may be chronic or represent mild congestive change. IMPRESSION: 1. Stable cardiomegaly. 2. Mild diffuse interstitial thickening again noted. This could be chronic or represent mild congestive change. ACT 112: Negative or not required by law. Electronically signed by: Jesus Alberto Hernández M.D. 09/22/2022 5:07 PM Medications Administered Medication List Discontinued Medications Ioversol (Optiray 320 125ml) 114 ml IV ONCE ONE Stop: 09/22/22 18:37 Last Admin: 09/22/22 18:36 Dose: 114 ml Documented By: CLYDE ECG Rate (beats per minute): 69 Rhythm: normal sinus Findings: + RBBB Additional Comments: qtc 469ms COVID-19 Results Results COVID-19 Adm Lab Results: RBC 3.45 M/uL (4.20-5.40) L 09/24/22 WBC 6.87 K/ul (4.8-10.8) 09/24/22 Hgb 10.5 g/dl (12.0-16.0) L 09/24/22 Hct 31.1 % (37.0-47.0) L 09/24/22 Plt Count 120 K/uL (130-400) L 09/24/22 Neutrophils (%) (Auto) 56.3 % 09/23/22 Lymphocytes (%) (Auto) 23.4 % 09/23/22 Monocytes # (Auto) 0.92 K/uL (0.11-0.59) H 09/23/22 Eosinophils # (Auto) 0.28 K/uL (0-0.50) 09/23/22 Immature Granulocyte % (Auto) 0.6 % 09/23/22 Neutrophils # (Auto) 3.53 K/uL (1.40-6.50) 09/23/22 Lymphocytes # (Auto) 1.47 K/uL (1.2-3.4) 09/23/22 Monocytes # (Auto) 0.92 K/uL (0.11-0.59) H 09/23/22 Eosinophils # (Auto) 0.28 K/uL (0-0.50) 09/23/22 Basophils # (Auto) 0.04 K/uL (0-0.2) 09/23/22 Immature Granulocyte # (Auto) 0.04 K/uL (0.01-0.20) 3 Na 136 mmol/L (136-145) 09/24/22 K 3.4 mmol/L (3.5-5.1) L 09/24/22 Cl 98 mmol/L (98-107) 09/24/22 CO2 29 mmol/L (21-32) 09/24/22 Anion Gap 9 (3-11) 09/24/22 BUN 16 mg/dl (6-23) 09/24/22 Creatinine 6.03 mg/dl (0.6-1.2) H* 09/24/22 BUN/Creatinine Ratio 2.7 (10-20) L 09/24/22 Glucose Level 91 mg/dl (70-99(Fasting)) 09/24/22 Ca 10.0 mg/dl (8.6-10.3) 09/24/22 Phosphorus Level 3.5 mg/dl (2.5-4.9) 09/24/22 Total Bilirubin 0.6 mg/dl (0.2-1.0) 09/22/22 Direct Bilirubin 0.1 mg/dl (0-0.2) 09/22/22 AST/SGOT 18 U/L (13-39) 09/22/22 ALT/SGPT 12 U/L (7-52) 09/22/22 Alkaline Phosphatase 59 U/L (34-104) 09/22/22 Total Protein 6.4 gm/dl (6.0-8.3) 09/22/22 Albumin 4.1 gm/dl (3.4-5.0) 09/22/22 PTT 28.3 Seconds (21.0-31.0) 09/22/22 INR 1.0 (0.9-1.1) 09/22/22 SARS-CoV-2, RNA, NAAT NEGATIVE (NEGATIVE) 09/22/22 Chest X-Ray 09/22/22 Code Status & VTE Plan Code Status FULL CODE Supervising Physician Co-Signing Physician Notes IM ATTENDING : Patient seen and examined. History obtained from patient and records. Preceding documentation by Ms. Ting Duke PA-C reviewed. In addition, transient hypoxemia of 88% documented at the ER. Patient also with cough symptoms productive of clear sputum the last few days. 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 status post failed kidney transplant on HD Viral bronchitis Hypertension, elevated Hx COPD as per records, no overt wheezing on exam CHEYENNE (CPAP noncompliance), patient yet to schedule follow-up with Sleep medicine Graves' disease/thyroid cancer status post surgery Postsurgical hypothyroidism,recent outpatient TSH this month within normal limits Hx GIST tumor currently on Gleevec Bile duct dilatation from last confinement, patient awaiting acceptable schedule for outpatient endoscopy from GI Mediastinal mass, outpatient CT surgery contemplated by PCP Chronic anemia, hemoglobin at baseline hx VRE past tobacco abuse Medical telemetry Lasix 1 dose now dose for renal function Stat nebs supportive management for viral bronchitis Nephrology consult Re: Dialysis management hypertensive crisis DVT prophylaxis. Heparin subcu Full code Text document was generated using [employer] voice recognition software. It may contain grammatical or spelling errors. Kindly contact undersigned for clarification of any documentation item in question. (2) Fluid overload Hypervolemia type: unspecified Qualified Code(s): E87.70 - Fluid overload, unspecified
[2022-09-22] MEDS ORDERED: amLODIPine BESYLATE 5 MG TAB PO ONE (19:30)
[2022-09-22 20:07] LABS: Magnesium 2.4 mg/dl (1.7-2.4)
[2022-09-22] MEDS ORDERED: FUROSEMIDE 10 MG/ML 10 ML VIAL IV ONE (20:15)
--- NOTE | 2022-09-22 20:27 | History & Physical Report ---
Date of Service September 22, 2022 History of Present Illness Primary Care Provider: Jameel Reyna DO Allergies Allergy/AdvReac Type Severity Reaction Status Date / Time levofloxacin AdvReac Severe C-DIFF Verified 09/22/22 18:48 Home Medications Medication Instructions Recorded Confirmed Type aspirin 81 mg chewable tablet 81 mg PO QAM 04/23/18 09/22/22 History fluticasone propionate 50 1 spray intranasal DAILY PRN 04/23/18 09/22/22 History mcg/actuation nasal Allergy Symptoms spray,suspension (Flonase Allergy Relief) gabapentin 100 mg capsule 100 mg PO BID 04/23/18 09/22/22 History omeprazole 40 mg capsule,delayed 40 mg PO DAILYBB 04/23/18 09/22/22 History release magnesium oxide 400 mg PO QAM 03/08/22 09/22/22 History amlodipine 5 mg tablet 5 mg PO BID 07/21/22 09/22/22 History levothyroxine 100 mcg tablet 100 mcg PO DAILYBB 07/21/22 09/22/22 History metoprolol tartrate 25 mg tablet 37.5 mg PO BID 07/21/22 09/22/22 History ondansetron HCl 8 mg tablet 8 mg PO TID PRN PRIOR TO 07/21/22 09/22/22 History CHEMOTHERAPY MEDS prochlorperazine maleate 10 mg 10 mg PO Q6H PRN NAUSEA/VOMITING 07/21/22 09/22/22 History tablet (Compazine) triamcinolone acetonide 0.1 % 1 applic topical 2XWK PRN Skin 07/21/22 09/22/22 History topical cream Irritation vitamin B complex and vitamin C 1 cap PO DAILY 07/21/22 09/22/22 History no.20-folic acid 1 mg capsule ([place] Caps) calcium acetate(phosphat bind) 667 1,334 mg PO TIDM #180 caps 07/28/22 09/22/22 Rx mg capsule sodium zirconium cyclosilicate 10 10 g PO DAILY@1500 #30 ea 07/28/22 09/22/22 Rx gram oral powder packet (Lokelma) oxycodone-acetaminophen 2.5 mg-325 1 tab PO Q8H PRN pain,severe 09/12/22 09/22/22 History mg tablet calcitriol 0.5 mcg capsule 0.5 mcg PO BID #1 cap 09/15/22 09/22/22 Rx hydralazine 10 mg tablet 10 mg PO AMPM 09/22/22 09/22/22 History imatinib 100 mg tablet (Gleevec) 200 mg PO PM 09/22/22 09/22/22 History Past Med/Surg History Medical History Abnormal stress test 01/2021 (reversible anterior and basal lateral defect consistent with ischemia vs soft tissue attenuation artifact) per [facility] cardio records, plan for medical management and consideration for DSE at 03/2021 appt; final determination per [facility] cardio is recommendation for diagnostic cardiac catheterization not yet scheduled by patient; now advised risk > benefit per [facility] cardio Anemia in chronic kidney disease AV fistula left upper arm (functioning), also one to left wrist, but does not function properly Chronic back pain COPD (chronic obstructive pulmonary disease) stable per pt, no longer using supplemental oxygen-states home pulse ox readings are consistently 97% or greater-pt states provider is aware COVID-19 01/29/22-not hospitalized-symptoms fully resolved ESRD (end stage renal disease) on dialysis MWF at [facility] in [place] 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 At least 1 of the peritoneal dialysis catheters had to be removed because of peritonitis..." HLD (hyperlipidemia) HTN (hypertension) controlled, stable per pt Hypocalcemia Hypothyroidism supplementation d/c by PCP d/t low TSH with elevated free T4 and T3, patient symptomatic-has not yet started advised beta darrell by PCP, + thyroid stimulating immunoglobulin and abnormal thyroid biopsy 12/02; pt was lost to f/u with [facility] endocrinology, now scheduled 05/2022 Limb alert care status left arm Migraine Neck pain h/o UE paresthesias; pt states neck pain and upper extremity abnormal symptoms fully resolved Palpitations on occasion-denies associated dizziness or lightheadedness-follows with [facility] cardio and PCP, notable current thyroid dysfunction; [facility] cardio advised 4 week or prn f/u-pt d/c initial beta darrell rx by cardio, did not initiate recommend alternate beta darrell from PCP yet Port-A-Cath in place Pulmonary hypertension Secondary hyperparathyroidism Sleep apnea severe per [facility] records, no device currently > has apt soon to see about getting back on device Thyroid nodule abnormal biopsy 12/02 with concerning results per S endo, + thyroid stimulating immunoglobulin; pt lost to f/u; now has [facility] endocrinology appoin tment 05/2022 Surgical History H/O cystoscopy History of appendectomy History of bilateral tubal ligation History of section x1 History of cholecystectomy History of colonoscopy History of esophagogastroduodenoscopy (EGD) History of kidney transplant [place] [facility] [place]) functions at only 10%--d/t ESRD > follows with Dr. Roldan History of laparoscopy History of surgery hx perm cath insertion & removal History of tonsillectomy and adenoidectomy History of tooth extraction History of wisdom tooth extraction Family History Grandmother (Paternal) Family history of diabetes mellitus Grandmother (Maternal) Family history of diabetes mellitus Family hx of colon cancer Mother Family hx of colon cancer Other No family history of adverse response to anesthesia Social History Smoking Status: Never smoker Tobacco Type: Cigarettes Second Hand Exposure: No; Do You Dip or Chew Tobacco: No; Hx Alcohol Use: No Hx Substance Use: No Preferred Language: Australian Communication Ability: Effective Iron Caster Required: No Beliefs That Will Affect Care: None marital status: Current Living Situation: Spouse Current Living Situation Comment: lives at home w spouse How many Children do You have: 1 Feels Safe at Home: Yes Assistive Devices: Glasses Results & Data Results & Data Vital Signs (Past 12 Hours) Vital Signs Temp Pulse Pulse Resp BP BP Pulse Ox 09/22/22 19:30 72 12 96 09/22/22 19:30 170/99 H 09/22/22 19:20 81 20 98 09/22/22 19:10 71 19 98 09/22/22 19:00 69 18 96 09/22/22 19:00 174/92 H 09/22/22 18:50 70 24 98 09/22/22 18:49 148/96 H 09/22/22 18:49 71 25 H 97 09/22/22 18:47 93 09/22/22 18:20 98 09/22/22 18:10 73 17 97 09/22/22 18:00 74 24 98 09/22/22 18:00 171/98 H 09/22/22 17:50 72 22 96 09/22/22 17:40 71 24 95 09/22/22 17:30 72 17 96 09/22/22 17:30 181/104 H 09/22/22 17:20 70 9 L 96 09/22/22 17:15 71 10 L 91 09/22/22 17:15 168/96 H 09/22/22 17:13 70 21 93 09/22/22 17:13 70 09/22/22 17:20 88 L 09/22/22 17:14 73 16 168/96 H 95 09/22/22 17:04 70 20 94 09/22/22 16:32 37.2 C 73 18 178/90 H 98 O2 Del Method O2 Flow Rate 09/22/22 19:30 Nasal Cannula 2 09/22/22 19:30 09/22/22 19:20 Nasal Cannula 2 09/22/22 19:10 Nasal Cannula 2 09/22/22 19:00 Nasal Cannula 2 09/22/22 19:00 09/22/22 18:50 Nasal Cannula 2 09/22/22 18:49 09/22/22 18:49 Nasal Cannula 2 09/22/22 18:47 Nasal Cannula 2 09/22/22 18:20 09/22/22 18:10 09/22/22 18:00 09/22/22 18:00 09/22/22 17:50 09/22/22 17:40 09/22/22 17:30 09/22/22 17:30 09/22/22 17:20 09/22/22 17:15 09/22/22 17:15 09/22/22 17:13 09/22/22 17:13 09/22/22 17:20 Nasal Cannula 0 09/22/22 17:14 Nasal Cannula 2 09/22/22 17:04 Room Air 09/22/22 16:32 Room Air Laboratory Results Laboratory Results WBC 5.48 K/ul (4.8-10.8) 09/22/22 17:10 RBC 3.19 M/uL (4.20-5.40) L 09/22/22 17:10 Hgb 9.7 g/dl (12.0-16.0) L 09/22/22 17:10 Hct 28.0 % (37.0-47.0) L 09/22/22 17:10 MCV 87.8 fL (80.0-100.0) 09/22/22 17:10 MCH 30.4 pg (25.0-34.0) 09/22/22 17:10 MCHC 34.6 g/dL (32.0-36.0) 09/22/22 17:10 RDW Std Deviation 45.0 fL (36.4-46.3) 09/22/22 17:10 RDW Coeff of [place] 14.0 % (11.5-14.5) 09/22/22 17:10 Plt Count 115 K/uL (130-400) L 09/22/22 17:10 MPV 9.5 fL (9.4-12.4) 09/22/22 17:10 Immature Gran % (Auto) 0.4 % 09/22/22 17:10 Neut % (Auto) 53.2 % 09/22/22 17:10 Lymph % (Auto) 27.7 % 09/22/22 17:10 [place] % (Auto) 15.3 % 09/22/22 17:10 Eos % (Auto) 2.9 % 09/22/22 17:10 Baso % (Auto) 0.5 % 09/22/22 17:10 Neut # (Auto) 2.91 K/uL (1.40-6.50) 09/22/22 17:10 Lymph # (Auto) 1.52 K/uL (1.2-3.4) 09/22/22 17:10 [place] # (Auto) 0.84 K/uL (0.11-0.59) H 09/22/22 17:10 Eos # (Auto) 0.16 K/uL (0-0.50) 09/22/22 17:10 Baso # (Auto) 0.03 K/uL (0-0.2) 09/22/22 17:10 Immature Gran # (Auto) 0.02 K/uL (0.01-0.20) 09/22/22 17:10 PT 11.2 Seconds (9.0-12.0) 09/22/22 17:10 INR 1.0 (0.9-1.1) 09/22/22 17:10 APTT 28.3 Seconds (21.0-31.0) 09/22/22 17:10 PTT Ratio 1.0 09/22/22 17:10 Sodium 132 mmol/L (136-145) L 09/22/22 17:10 Potassium 3.4 mmol/L (3.5-5.1) L 09/22/22 17:10 Chloride 92 mmol/L (98-107) L 09/22/22 17:10 Carbon Dioxide 29 mmol/L (21-32) 09/22/22 17:10 Anion Gap 11 (3-11) 09/22/22 17:10 BUN 25 mg/dl (6-23) H 09/22/22 17:10 Creatinine 7.06 mg/dl (0.6-1.2) H* 09/22/22 17:10 Est Cr Clr Drug Dosing 9.0 ml/min 09/22/22 17:10 Est GFR ( Amer) 6.5 ml/min 09/22/22 17:10 Est GFR (Non-Af Amer) 5.6 ml/min 09/22/22 17:10 BUN/Creatinine Ratio 3.5 (10-20) L 09/22/22 17:10 Glucose 94 mg/dl (70-99(Fasting)) 09/22/22 17:10 Calcium 10.5 mg/dl (8.6-10.3) H 09/22/22 17:10 Magnesium 2.4 mg/dl (1.7-2.4) 09/22/22 17:10 Total Bilirubin 0.6 mg/dl (0.2-1.0) 09/22/22 17:10 Direct Bilirubin 0.1 mg/dl (0-0.2) 09/22/22 17:10 AST 18 U/L (13-39) 09/22/22 17:10 ALT 12 U/L (7-52) 09/22/22 17:10 Alkaline Phosphatase 59 U/L (34-104) 09/22/22 17:10 Troponin I High Sens 13.3 pg/ml (0-14) 09/22/22 17:10 Total Protein 6.4 gm/dl (6.0-8.3) 09/22/22 17:10 Albumin 4.1 gm/dl (3.4-5.0) 09/22/22 17:10 Lipase 34 U/L (11-82) 09/22/22 17:10 SARS-CoV-2, RNA, NAAT NEGATIVE (NEGATIVE) 09/22/22 19:29 Impressions Chest CTA 09/22/22 16:42 CHEST CTA for PULMONARY ARTERIES CT DOSE: 761.06 mGy.cm HISTORY: Shortness of breath. Chest Pain, eval for PE TECHNIQUE: Multiaxial CT images of the chest were performed following the intravenous administration of contrast to evaluate the pulmonary arteries. 3D/Maximal intensity projection images were also obtained. Sagittal and coronal reformations were also reviewed. A dose lowering technique was utilized adhering to the principles of ALARA. COMPARISON STUDY: Abdomen and pelvis CT 09/12/2022. FINDINGS: Limited views the upper abdomen again demonstrate intrahepatic bile duct dilatation. This is similar to the prior abdomen and pelvis CT. No significant pleural effusions. No pericardial effusion. The heart is mildly enlarged. Prior thyroidectomy. Normal esophagus. No hilar lymphadenopathy. Subcentimeter mediastinal lymph nodes do not meet CT criteria for pathologic involvement. A right jugular Port-A-Cath terminates in the SVC. A 1.3 cm lesion within the left humeral neck favors a benign cartilaginous lesion. No acute fractures identified. There is a faint 1.1 cm sclerotic lesion within the T4 vertebral body. This is indeterminate. Mild calcified plaque within the normal caliber thoracic aorta. No filling defects within the pulmonary arteries to suggest a pulmonary embolus. No pneumothorax. The central airways are patent. A 4 mm nodule within the left lower lobe on image 69. There is mild interlobular septal thickening. This suggests mild congestive change. A 4 mm nodule within the right middle lobe on image 68. Mild dependent changes are seen at the lung bases. A 5 mm nodule with central calcification on image 82. A few scattered peripheral reticulonodular densities. This may be chronic. This is most pronounced within the right upper lobe medially on image 135. A mild infectious bronchiolitis could also have a similar appearance. IMPRESSION: 1. No evidence for a pulmonary embolus. 2. Mild interlobular septal thickening. This suggests mild congestive change. 3. Mild cardiomegaly. 4. A few scattered peripheral reticulonodular densities. This may be chronic or could be due to a mild infectious bronchiolitis. 5. Stable intrahepatic bile duct dilatation. 6. Cardiomegaly. 7. A 1.1 cm indeterminate sclerotic focus within the T4 vertebral body. Attention at follow-up is recommended. 8. A few subcentimeter indeterminate pulmonary nodules measure up to 5 mm. Please refer to below summary of Fleischner criteria recommendations for follow- up of incidental CT nodules (Rob Rasheed, Guidelines for management of small pulmonary nodules detected on CT scans: A statement from the Fleischner Society, Radiology 237: [phone].) SOLID NODULES Solitary nodule size: <6 mm * Low risk patients: no follow-up needed * high risk patients: optional CT at 12 months Solitary nodule size: 6-8 mm * Low risk patients: follow-up at 6-12 months, then consider further follow-up at 18-24 months * high risk patients: initial follow-up CT at 6-12 months and then at 18-24 months if no change Solitary nodule size: >8 mm * either low or high risk patients - consider follow-up CT at 3 months, and/or CT-PET, and/or biopsy Multiple nodules size: <6 mm * Low risk patients: no routine follow-up * high risk patients: optional CT at 12 months Multiple nodules size: 6-8 mm * Low risk patients: follow-up at 3-6 months, then consider further follow-up at 18-24 months * high risk patients: follow-up at 3-6 months, then at 18-24 months if no change Multiple nodules size: >8 mm * Low risk patients: follow-up at 3-6 months, then consider further follow-up at 18-24 months * high risk patients: follow-up at 3-6 months, then at 18-24 months if no change Note: newly detected indeterminate nodule in persons 35 years of age or older. * Low risk patients: minimal or absent history of smoking and/or other known risk factors * high risk patients: history of smoking or of other known risk factors (e.g. first degree relative with lung cancer, or exposure to asbestos, radon, uranium) * if a nodule up to 8 mm is partly solid or is ground glass further follow-up is required after 24 months to exclude possible slow growing adenocarcinoma ([place]) SUBSOLID NODULES Solitary pure ground-glass nodule * nodule size <6 mm - no CT follow-up required * nodule size >=6 mm - follow-up CT at 6-12 months, then every 2 years until 5 years Solitary part-solid nodule * nodule size <6 mm - no CT follow-up required * nodule size >=6 mm - follow-up CT at 3-6 months. If unchanged, and solid component remains <6 mm, then annual follow-up for 5 years Multiple subsolid nodules * nodule size <6 mm - follow-up CT at 3-6 months, consider further follow-up at 2 and 4 years if stable * nodule size >=6 mm - follow-up CT at 3-6 months, subsequent management based on the most suspicious nodule(s) ACT 112: Negative or not required by law. Electronically signed by: Jesus Alberto Hernández M.D. 09/22/2022 6:55 PM Chest X-Ray 09/22/22 16:42 XR chest 1V portable HISTORY: Difficulty breathing. Chest pain, nonspecific COMPARISON: Chest 07/21/2012. FINDINGS: No pneumothorax. No pleural effusions. The cardiac silhouette remains mildly enlarged. No focal lung consolidations to suggest a pneumonia. There is mild diffuse interstitial thickening. This may be chronic or represent mild congestive change. IMPRESSION: 1. Stable cardiomegaly. 2. Mild diffuse interstitial thickening again noted. This could be chronic or represent mild congestive change. ACT 112: Negative or not required by law. Electronically signed by: Jesus Alberto Hernández M.D. 09/22/2022 5:07 PM
[2022-09-22] MEDS ORDERED: PROMETHAZINE HCL 12.5 MG in SODIUM CHLORIDE 0.9% 50 ML IV PRN (20:31)
[2022-09-22] MEDS ORDERED: oxyCODONE HCL IR 5 MG TAB (IMMEDIATE RELEASE) PO PRN (20:31)
[2022-09-22] MEDS ORDERED: ALBUT/IPRATROP 3MG/0.5MG NEB 3 ML VIAL NEB PRN (20:33)
[2022-09-22] MEDS ORDERED: ALBUT/IPRATROP 3MG/0.5MG NEB 3 ML VIAL NEB STA (20:34)
[2022-09-22] MEDS: HEPARIN SOD 5,000 UNIT/0.5 ML VIAL SQ SCH (21:33)
[2022-09-22] MEDS ORDERED: FLUTICASONE PROPIONATE NA SPR 16 GM BTL PRN (22:34)
[2022-09-22] MEDS: ACETAMINOPHEN 325 MG TAB PO PRN (23:00)
[2022-09-22] MEDS: GABAPENTIN 100 MG CAP PO SCH (23:17)
[2022-09-22] MEDS: METOPROLOL TARTRATE 25 MG TAB PO SCH (23:17)
[2022-09-22] MEDS: hydrALAZINE 10 MG TAB PO SCH (23:18)
[2022-09-23] MEDS ORDERED: oxyCODONE HCL IR 5 MG TAB (IMMEDIATE RELEASE) PO STA (01:29)
[2022-09-23] MEDS ORDERED: HYDROmorphone INJ 0.5 MG/0.5 ML SYR IV PRN (01:29)
[2022-09-23] MEDS: HEPARIN SOD 5,000 UNIT/0.5 ML VIAL SQ SCH ×3 (05:40→22:56)
[2022-09-23] MEDS: PANTOprazole 40 MG TAB PO SCH (05:41)
[2022-09-23] MEDS: LEVOTHYROXINE SODIUM 100 MCG TABLET PO SCH (05:41)
[2022-09-23] MEDS: amLODIPine BESYLATE 5 MG TAB PO SCH ×2 (07:52→20:32)
[2022-09-23] MEDS: METOPROLOL TARTRATE 25 MG TAB PO SCH ×2 (07:53→20:32)
[2022-09-23] MEDS: hydrALAZINE 10 MG TAB PO SCH (07:54)
[2022-09-23] MEDS: GABAPENTIN 100 MG CAP PO SCH ×2 (07:55→20:32)
[2022-09-23 08:03] LABS: Basophils # (auto) 0.04 K/uL (0-0.2); Basophils % (auto) 0.6 %; Eosinophils # (auto) 0.28 K/uL (0-0.50); Eosinophils % (auto) 4.5 %; Hematocrit (blood only) 30.6 % (37.0-47.0); Hemoglobin 10.3 g/dl (12.0-16.0); Immature Granulocytes # (auto) 0.04 K/uL (0.01-0.20); Immature Granulocytes % (auto) 0.6 %; Lymphocytes # (auto) 1.47 K/uL (1.2-3.4); Lymphocytes % (auto) 23.4 %; Mean Corpuscular Hemoglobin 30.3 pg (25.0-34.0); Mean Corpuscular Hgb Conc 33.7 g/dL (32.0-36.0); Mean Platelet Volume 8.8 fL (9.4-12.4); Monocytes # (auto) 0.92 K/uL (0.11-0.59); Monocytes % (auto) 14.6 %; Neutrophils # (auto) 3.53 K/uL (1.40-6.50); Neutrophils % (auto) 56.3 %; Platelet Count 112 K/uL (130-400); RDW Coefficient of Variation 14.1 % (11.5-14.5); White Blood Count 6.28 K/ul (4.8-10.8)
[2022-09-23 08:23] LABS: Calcium 9.7 mg/dl (8.6-10.3); Potassium 3.6 mmol/L (3.5-5.1)
[2022-09-23 08:30] LABS: BUN Creatinine Ratio 3.6 (10-20); Creatinine Clr Calc Pharmacy 7.6 ml/min; Est GFR (African American) 5.3 ml/min; Est GFR (Non-African American) 4.5 ml/min
[2022-09-23] MEDS ORDERED: SODIUM CHLORIDE 0.9% 1000ML 1,000 ML IV PRN (10:28)
--- NOTE | 2022-09-23 11:06 | Nephrology Consultation ---
Date of Consultation September 23, 2022 Assessment & Plan (1) Fluid overload: Patient is quite short of breath and requiring [address] angio already done and negative. She does have pulmonary hypertension so can get short of breath easily as well as hypoxic with fluid overload. We will do dialysis today and take about 3.5 kg and hopefully after that she will feel better breathing well (2) Hypoxia: Likely related with fluid overload in a patient with underlying pulmonary hy pertension/COPD/diastolic heart failure (3) ESRD (end stage renal disease) on dialysis: 2 days of dialysis today and will do as per her normal schedule of Monday. She will get everything as per outpatient. Plan is to do 4 hours and take 3.5 kg. History of Present Illness Reason for Consultation: Dialysis patient admitted with shortness of breath Attending Physician: Lexx Peralta MD History of Present Illness 66-year-old female with very complicated medical history including ESRD on chronic hemodialysis Monday through AV fistula. She gets her dialysis in [place]. Came to emergency department yesterday with 1 week history of progressive shortness of breath. She had CT angiogram to rule out PE and was negative. She is compliant with dialysis and had dialysis both Monday as well as Monday. Multiple recent admissions--- may ---profound hypocalcemia after having a total thyroidectomy and 3.5 gland parathyroidectomy Again hospitalized 09/12-09/15 04/14 for abd pain. Infection r/o, negative UA and culture. Significantly dilated CBD, GI recent OP EUS/ERCP. 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 Recent OP Chest CT concerning for mediastinal mass and gui lesions L humerus and T4; however had bone scan 09/22 which was negative for gui uptake. Review of system : denies productive sputum fever sick contacts at home chest pain. She does have some nonspecific abdominal pain as well as nausea but no acute symptoms otherwise. Total of 12 systems reviewed Allergies Allergy/AdvReac Type Severity Reaction Status Date / Time levofloxacin AdvReac Severe C-DIFF Verified 09/22/22 18:48 Home Medications Medication Instructions Recorded Confirmed Type aspirin 81 mg chewable tablet 81 mg PO QAM 04/23/18 09/22/22 History fluticasone propionate 50 1 spray intranasal DAILY PRN 04/23/18 09/22/22 History mcg/actuation nasal Allergy Symptoms spray,suspension (Flonase Allergy Relief) gabapentin 100 mg capsule 100 mg PO BID 04/23/18 09/22/22 History omeprazole 40 mg capsule,delayed 40 mg PO DAILYBB 04/23/18 09/22/22 History release magnesium oxide 400 mg PO QAM 03/08/22 09/22/22 History amlodipine 5 mg tablet 5 mg PO BID 07/21/22 09/22/22 History levothyroxine 100 mcg tablet 100 mcg PO DAILYBB 07/21/22 09/22/22 History metoprolol tartrate 25 mg tablet 37.5 mg PO BID 07/21/22 09/22/22 History ondansetron HCl 8 mg tablet 8 mg PO TID PRN PRIOR TO 07/21/22 09/22/22 History CHEMOTHERAPY MEDS prochlorperazine maleate 10 mg 10 mg PO Q6H PRN NAUSEA/VOMITING 07/21/22 09/22/22 History tablet (Compazine) triamcinolone acetonide 0.1 % 1 applic topical 2XWK PRN Skin 07/21/22 09/22/22 History topical cream Irritation vitamin B complex and vitamin C 1 cap PO DAILY 07/21/22 09/22/22 History no.20-folic acid 1 mg capsule (Lucas Caps) calcium acetate(phosphat bind) 667 1,334 mg PO TIDM #180 caps 07/28/22 09/22/22 Rx mg capsule sodium zirconium cyclosilicate 10 10 g PO DAILY@1500 #30 ea 07/28/22 09/22/22 Rx gram oral powder packet (Lokelma) oxycodone-acetaminophen 2.5 mg-325 1 tab PO Q8H PRN pain,severe 09/12/22 09/22/22 History mg tablet calcitriol 0.5 mcg capsule 0.5 mcg PO BID #1 cap 09/15/22 09/22/22 Rx hydralazine 10 mg tablet 10 mg PO AMPM 09/22/22 09/22/22 History imatinib 100 mg tablet (Gleevec) 200 mg PO PM 09/22/22 09/22/22 History Patient History Medical History Abnormal stress test 01/2021 (reversible anterior and basal lateral defect consistent with ischemia vs soft tissue attenuation artifact) per [facility] cardio records, plan for medical management and consideration for DSE at 03/2021 appt; final det ermination per [facility] cardio is recommendation for diagnostic cardiac catheterization not yet scheduled by patient; now advised risk > benefit per 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 cardio records "...previous peritoneal dialysis catheters. At least 1 of the peritoneal dialysis catheters had to be removed because of peritonitis..." HLD (hyperlipidemia) HTN (hypertension) controlled, stable per pt Hypocalcemia Hypothyroidism supplementation d/c by PCP d/t low TSH with elevated free T4 and T3, patient symptomatic-has not yet started advised beta darrell by PCP, + thyroid stimulating immunoglobulin and abnormal thyroid biopsy 12/02; pt was lost to f/u with [facility] endocrinology, now scheduled 05/2022 Limb alert care status left arm Migraine Neck pain h/o UE paresthesias; pt states neck pain and upper extremity abnormal symptoms fully resolved Palpitations on occasion-denies associated dizziness or lightheadedness-follows with [facility] cardio and PCP, notable current thyroid dysfunction; [facility] cardio advised 4 week or prn f/u-pt d/c initial beta darrell rx by cardio, did not initiate recommend alternate beta darrell from PCP yet Port-A-Cath in place Pulmonary hypertension Secondary hyperparathyroidism Sleep apnea severe per [facility] records, no device currently > has apt soon to see about getting back on device Thyroid nodule abnormal biopsy 12/02 with concerning results per [facility] endo, + thyroid stimulating immunoglobulin; pt lost to f/u; now has [facility] endocrinology appointment 05/2022 Surgical History H/O cystoscopy History of appendectomy History of bilateral tubal ligation History of section x1 History of cholecystectomy History of colonoscopy History of esophagogastroduodenoscopy (EGD) [place] [facility] [place] at [place] 10%--d/t ESRD > follows with Dr. Roldan History of laparoscopy History of surgery hx perm cath insertion & removal History of tonsillectomy and adenoidectomy History of tooth extraction History of wisdom tooth extraction Family History Grandmother (Paternal) Family history of diabetes mellitus Grandmother (Maternal) Family history of diabetes mellitus Family hx of colon cancer Mother Family hx of colon cancer Other No family history of adverse response to anesthesia Social History Smoking Status: Former smoker Tobacco Type: Cigarettes Smoking End Date: 2002; Second Hand Exposure: No; Do You Dip or Chew Tobacco: No; Tobacco Cessation Education Requested by Patient: No Hx Alcohol Use: No Hx Substance Use: No Preferred Language: Armenian Communication Ability: Effective Head Packager Required: No Beliefs That Will Affect Care: None marital status: Current Living Situation: Spouse Current Living Situation Comment: lives at home w spouse How many Children do You have: 1 Other Information That Helps Us Care for You: No Feels Safe at Home: Yes Safety Concerns: Feels Safe At This Time Assistive Devices: Glasses Physical Exam Physical Exam: Middle aged white female who is alert and oriented. Normal speech and able to give me detailed account of her complicated medical history. She is somewhat short of breath and is requiring 6 L of oxygen Respiratory: Some respiratory distress noted bilateral decreased breath sound. Occasional crackle Cardiovascular: Regular rate and rhythm. Soft systolic murmur heart trace edema bilaterally Gastrointestinal (Abdomen): Soft nontender Skin: No obvious rashes noted Results & Data Vital Signs (Past 12 Hours) Vital Signs Temp Pulse Pulse Resp BP Pulse Ox O2 Del Method 09/23/22 07:43 36.3 C L 66 20 163/87 H 99 Nasal Cannula 09/23/22 03:00 37 C 61 20 157/82 H 94 Room Air 09/23/22 00:42 71 187/94 H 09/22/22 23:59 80 O2 Flow Rate 09/23/22 07:43 6.0 09/23/22 03:00 09/23/22 00:42 09/22/22 23:[address] angio was negative for PE. Hemoglobin 10.3. Potassium 3.6 sodium 131. Creatinine about 8, BUN 30 (1) Fluid overload Hypervolemia type: unspecified Qualified Code(s): E87.70 - Fluid overload, unspecified
--- NOTE | 2022-09-23 12:07 | Electrocardiogram Report ---
Test Reason : Blood Pressure : / mmHG Vent. Rate : 069 BPM Atrial Rate : 069 BPM P-R Int : 180 ms QRS Dur : 128 ms QT Int : 438 ms P-R-T Axes : 033 -10 019 degrees QTc Int : 469 ms Normal sinus rhythm Right bundle branch block Abnormal ECG When compared with ECG of 12-SEP-2022 12:36, Right bundle branch block is now Present Minimal criteria for Anterior infarct are no longer Present Confirmed by Romeo Gonzalez ([id number]) on 09/23/2022 12:07:04 PM Referred By: Jameel Reyna Confirmed By:Fabrizio Gonzalez
[2022-09-23] MEDS: oxyCODONE HCL IR 5 MG TAB (IMMEDIATE RELEASE) PO PRN (13:56)
--- NOTE | 2022-09-23 14:52 | Hospitalist Progress Note ---
Date of Service September 23, 2022 Assessment & Plan (1) Hypoxia: (2) Fluid overload: Plan 66-year-old female who has significant past medical history of chronic hypoxemic respiratory failure, COPD, HTN, pulmonary hypertension, hyperlipidemia, secondary renal hyperparathyroidism, Graves' disease, [place], CKD stage V on dialysis, kidney transplant failure, anemia of renal disease, history of VRE, history of thyroid cancer who presents to ED 09/22 secondary toSOB x 1 week a/w occasional cough w/ clear sputum. Recently hospitalized 07/21-07/28 2/2 profound hypocalcemia after having a total thyroidectomy and 3.5 gland parathyroidectomy Again hospitalized 09/12-09/15 2/2 abd pain. Infection r/o, negative UA and culture. Significantly dilated CBD, GI recent OP EUS/ERCP. 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 Recent OP Chest CT concerning for mediastinal mass and gui lesions L humerus and T4; however had bone scan 09/22 which was negative for gui uptake; pt continues to follow Dr. Xavier for her ongoing mx. She is being managed for the following: Hypoxia, possible viral bronchitis: supportive measures. SOB likely 2/2 volume overload in ESRD pt w/ h/o pulmonary HTN. No signs and symptoms of URI. Minimal cough with clear sputum. Possible dietary indiscretion/increased volume intake. Admitting CTA negative for PE, no mediastinal mass noted, < 5mm pulm nodules noted and congestion change. Patient is ESRD on hemodialysis, makes some urine. Nephrology on board, for hemodialysis today. Uncontrolled hypertension: Continue with home amlodipine, hydralazine (recently added), metoprolol. Increase hydralazine dose; continue bp meds uptitration based on response. 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 Patient was sitting up in bed, on 5 L oxygen via nasal cannula, NAD, reports minimal cough with clear sputum since 1 week associated with shortness of breath about the same time, denies any fever or chills or any increase in swelling of her lower extremity. patient denies any new acute events overnight. Patient denies any pain or burning while passing urine, denies any diarrhea, reports eating okay. Physical Exam Physical Exam: GENERAL: Alert and oriented x3. NAD, on 5L NC O2 HEENT: No pallor, no icterus. Pupils equal, round and reactive to light. Oral mucosa moist. NECK: No JVD, no neck masses. HEART: S1 and S2 heard. Regular rate and rhythm. + murmur, no gallop. RESPIRATORY SYSTEM: Normal AP diameter. No accessory muscle use. No wheezing, no crackles. ABDOMEN: Soft, bowel sounds present, nontender, no distention. CENTRAL NERVOUS SYSTEM: No facial droop. Speech is clear. Obeys simple commands. Moves extremities. EXTREMITIES: trace ble edema, no erythema seen. Results & Data Results & Data Vital Signs (Past 12 Hours) Vital Signs Temp Pulse Pulse Pulse Resp BP BP 09/23/22 14:30 65 179/83 H 09/23/22 14:00 69 169/85 H 09/23/22 13:30 65 174/85 H 09/23/22 13:00 68 155/87 H 09/23/22 12:30 67 171/90 H 09/23/22 12:00 60 150/86 H 09/23/22 12:00 36.7 C 74 18 159/79 H 09/23/22 11:30 57 L 142/81 H 09/23/22 11:15 57 L 142/83 H 09/23/22 11:05 36.6 C 62 09/23/22 07:43 36.3 C L 66 20 163/87 H 09/23/22 03:00 37 C 61 20 157/82 H Pulse Ox O2 Del Method O2 Flow Rate 09/23/22 14:30 09/23/22 14:00 09/23/22 13:30 09/23/22 13:00 09/23/22 12:30 09/23/22 12:00 09/23/22 12:00 97 Room Air 09/23/22 11:30 09/23/22 11:15 09/23/22 11:05 09/23/22 07:43 99 Nasal Cannula 6.0 09/23/22 03:00 94 Room Air (2) Fluid overload Hypervolemia type: unspecified Qualified Code(s): E87.70 - Fluid overload, unspecified
[2022-09-23] MEDS ORDERED: SODIUM ZIRCONIUM CYCLOSILICATE 10 GM PACKET PO SCH (15:00)
[2022-09-23] MEDS ORDERED: NEPHROCAPS PO SCH (16:00)
[2022-09-23] MEDS: CALCIUM ACETATE 667 MG CAP/TAB PO SCH ×2 (16:00→16:03)
[2022-09-23] MEDS ORDERED: LACTULOSE SYRUP 10 GM/15 ML BTL 960 ML PO ONE (19:30)
[2022-09-23] MEDS: hydrALAZINE HCL 25 MG TAB PO SCH (20:31)
[2022-09-23] MEDS ORDERED: IMATINIB MESYLATE PO SCH (21:00)
[2022-09-24] MEDS: oxyCODONE HCL IR 5 MG TAB (IMMEDIATE RELEASE) PO PRN (00:17)
[2022-09-24] MEDS: ACETAMINOPHEN 325 MG TAB PO PRN ×2 (00:18→07:54)
[2022-09-24] MEDS: PANTOprazole 40 MG TAB PO SCH (06:15)
[2022-09-24] MEDS: HEPARIN SOD 5,000 UNIT/0.5 ML VIAL SQ SCH (06:15)
[2022-09-24] MEDS: LEVOTHYROXINE SODIUM 100 MCG TABLET PO SCH (06:15)
[2022-09-24] MEDS: GABAPENTIN 100 MG CAP PO SCH (07:51)
[2022-09-24] MEDS: amLODIPine BESYLATE 5 MG TAB PO SCH (07:51)
[2022-09-24] MEDS: METOPROLOL TARTRATE 25 MG TAB PO SCH (07:51)
[2022-09-24] MEDS: CALCIUM ACETATE 667 MG CAP/TAB PO SCH ×2 (07:52→11:59)
[2022-09-24] MEDS: hydrALAZINE HCL 25 MG TAB PO SCH (07:52)
[2022-09-24 08:25] LABS: Hematocrit (blood only) 31.1 % (37.0-47.0); Hemoglobin 10.5 g/dl (12.0-16.0); Mean Corpuscular Hemoglobin 30.4 pg (25.0-34.0); Mean Corpuscular Hgb Conc 33.8 g/dL (32.0-36.0); Mean Corpuscular Volume 90.1 fL (80.0-100.0); Mean Platelet Volume 8.7 fL (9.4-12.4); Platelet Count 120 K/uL (130-400); RDW Coefficient of Variation 14.5 % (11.5-14.5); RDW Standard Deviation 46.4 fL (36.4-46.3); Red Blood Count 3.45 M/uL (4.20-5.40); White Blood Count 6.87 K/ul (4.8-10.8)
[2022-09-24 08:45] LABS: BUN Creatinine Ratio 2.7 (10-20); Creatinine Clr Calc Pharmacy 10.4 ml/min; Est GFR (African American) 7.9 ml/min; Est GFR (Non-African American) 6.8 ml/min; Magnesium 2.3 mg/dl (1.7-2.4); Phosphorus 3.5 mg/dl (2.5-4.9); Potassium 3.4 mmol/L (3.5-5.1)
--- NOTE | 2022-09-24 13:28 | Discharge Summary ---
Date of Service September 24, 2022 Admission HPI Per Admitting Provider This is a 66-year-old female who has significant past medical history of chronic hypoxemic respiratory failure, COPD, HTN, pulmonary hypertension, hyperlipidemia, secondary renal hyperparathyroidism, Graves' disease, [place], CKD stage V on dialysis, kidney transplant failure, anemia of renal disease, history of VRE, history of thyroid cancer who presents to ED secondary toSOB x 1 week. She is a hemodialysis patient. Her last treatment was on Monday. Patient was recently admitted 10/09 discharged on 09/15 secondary to abdominal pain. Initially was concern for possible pyelonephritis however urine and blood cultu re was negative. Imaging during that hospital stay also revealed intrahepatic and extrahepatic biliary ductal dilatation. MRCP was obtained. GI saw patient and plan is for outpatient EUS/ERCP. Symptoms resolved during hospital stay and she was discharged to home. She continued hemodialysis while inpatient. She states at discharge she was feeling well and then gradually has been getting more short of breath over the last week. Shortness of breath is worse when lying flat and has been unable to sleep the last several nights due to unable to lay flat. She feels her weight has actually decreased and denies any lower extremity edema. She denies any shortness of breath with exertion like walking to and from the bathroom, but also states that she has not truly exerted herself over the last week. She does have a chronic productive cough but denies any purulent sputum or hemoptysis. She denies any fever, chills, sweats, lightheadedness, dizziness, chest pain, nausea, vomiting, abdominal pain, dysuria, hematuria, increased urgency or frequency with urination. She does still make urine despite hemodialysis. She currently has a left upper extremity fistula in place. She lives at home with her . Of significance she has been dealing with chronic right-sided back pain. Patient had a chest CT on 09/07 that revealed a new mediastinal mass, left humerus lesion and a T4 vertebral lesion. 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 She did undergo bone scan today which showed no suspicious osseous uptake with attention to the left humerus and T4 vertebral body as described on prior CT. Admission Exam Per Admitting Provider Constitutional: Chronic ill appearing, WD/WN, vitals as above, NAD, sitting up in bed, pleasant, conversing easily but distracted by playing a game on her phone Head: Normocephalic, Atraumatic Eyes: PERRL, conjunctivae normal, anicteric sclerae ENMT: external ear and nose normal, oropharynx normal dry membranes Neck: trachea midline, no thyromegaly normal visual inspection Respiratory: normal respiratory effort, lungs clear to auscultation, no wheeze, rales, rhonchi. Normal insp/exp effort, no accessory muscle use Cardiovascular: RRR, 2/6 AMALIA noted RUSB, LUE AV fistula + bruit, no edema Vessels: no JVD or carotid bruit Chest: normal inspection of chest Abdomen: normal bowel sounds, soft, nontender, no hepatosplenomegaly Musculoskeletal: no cyanosis or clubbing, extremities motor strength 5/5 Skin: no rashes, warm and dry normal turgor Neurologic: PERRL, EOMI, accommodation nl, no face palsy, no dysarthria CN's II-XI intact bilaterally and moves all extremities Psychiatric: A+Ox3, dysthymic affect : deferred Principal Diagnosis Hypoxia and shortness of breath likely secondary to volume overload in the setting of ESRD patient with history of pulmonary hypertension Discharge Exam GENERAL: Alert and oriented x3. NAD, on RA HEENT: No pallor, no icterus. Pupils equal, round and reactive to light. Oral mucosa moist. NECK: No JVD, no neck masses. HEART: S1 and S2 heard. Regular rate and rhythm. + murmur, no gallop. RESPIRATORY SYSTEM: Normal AP diameter. No accessory muscle use. No wheezing, no crackles. ABDOMEN: Soft, bowel sounds present, nontender, no distention. CENTRAL NERVOUS SYSTEM: No facial droop. Speech is clear. Obeys simple commands. Moves extremities. EXTREMITIES: no ble edema, no erythema seen. Discharge Data Allergies Allergy/AdvReac Type Severity Reaction Status Date / Time levofloxacin AdvReac Severe C-DIFF Verified 09/22/22 18:48 Consultations 09/22/22 19:21 ED Decision to Admit Stat 09/22/22 22:34 Consult Nephrology Routine Ordered Studies 09/22/22 16:42 CT angio chest PE protocol Stat Hospital Course (1) Hypoxia: (2) Fluid overload: Plan 66-year-old female who has significant past medical history of chronic hypoxemic respiratory failure, COPD, HTN, pulmonary hypertension, hyperlipidemia, secondary renal hyperparathyroidism, Graves' disease, [place], CKD stage V on dialysis, kidney transplant failure, anemia of renal disease, history of VRE, history of thyroid cancer who presents to ED 09/22 secondary toSOB x 1 week a/w occasional cough w/ clear sputum. Recently hospitalized 07/21-07/28 2/2 profound hypocalcemia after having a total thyroidectomy and 3.5 gland parathyroidectomy Again hospitalized 09/12-09/15 2/2 abd pain. Infection r/o, negative UA and culture. Significantly dilated CBD, GI recent OP EUS/ERCP. 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 Recent OP Chest CT concerning for mediastinal mass and gui lesions L humerus and T4; however had bone scan 09/22 which was negative for gui uptake; pt continues to follow Dr. Xavier for her ongoing mx. She was managed for the following: Hypoxia, possible viral bronchitis: supportive measures. SOB likely 2/2 volume overload in ESRD pt w/ h/o pulmonary HTN. No signs and symptoms of URI. Minimal cough with clear sputum. Possible dietary indiscretion/increased volume intake. Admitting CTA negative for PE, no mediastinal mass noted, < 5mm pulm nodules noted and congestion change. Patient is ESRD on hemodialysis, makes some urine. Nephrology on board. Respiratory improvement after HD yesterday. Patient is hemodynamically stable/feels back to her baseline and would like to go home. Patient reports improving cough. Uncontrolled hypertension: Continue with home amlodipine, hydralazine (recently added), metoprolol. Increased hydralazine dose to 25 mg twice daily; patient to maintain a log of blood pressure measurements at home to take to primary care physician during her next visit for further evaluation/management of her blood pressure medications. 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 Take your calcitriol tablets as 1 tablet daily. You will need calcium level checked in 5 days upon discharge, coordinate with your dialysis unit. Follow-up with Dr. Xavier for your mediastinal mass/bony lesion/GIST tumor as prior. Maintain low-sodium diet of less than 2 g a day. Maintain fluid restriction as recommended by your nephrology. Your blood pressure was on the higher side while in hospital, your hydralazine has been uptitrated from 10 mg a.m. p.m. to 25 mg a.m. p.m. Measure blood pressure twice a day and maintain a log to take to your primary care physician for further adjustment in your blood pressure medications. Follow-up with nephrology as prior or soon if needed. Please make sure that you are able to get your medications today by calling your pharmacy before you leave the hospital so that your treatment continuity is not broken. Home Health Attestation I certify that this patient is under my care and that I, or a physicians ass istant working with me, had a face to-face encounter that meets the home health [id number] encounter requirements with this patient. The encounter with the patient was in whole, or in part, for the following medical condition, which is the primary reason for home health care (list medical condition): I certify that, based on my findings, the following services are medically necessary home health services: My clinical findings support the need for the above services because: Further, I certify that my clinical findings support that this patient is homebound (i.e. absences from home require considerable and taxing effort and are for medical reasons or amish services or infrequently or of short duration when for other reasons) because: Certification for Home Health Services: Based on the above findings, I certify that this patient is confined to the home and needs intermittent shelter care, physical therapy and/or speech therapy or continues to need occupational therapy. The patient is under my care, and I have initiated the establishment of the plan of care. This patient will be followed by a physician who will periodically review the plan of care. Total Time Total Time Spent Total Time Spent (In Minutes): 45 Discharge Plan Discharge Items Patient Disposition: Home - Self-Care Reason For Visit: RESP FAILURE Discharge Diagnosis: Hypoxia and shortness of breath likely secondary to volume overload in the setting of ESRD patient with history of pulmonary hypertension Activity: Resume your previous activity Non-emergency contact: Primary Care Provider Call non-emergency contact if: you have any medication questions, your symptoms worsen and your temperature is above 101 Follow-up/Referrals: Jameel Reyna, [Primary Care Provider] - Diet: Heart Healthy and Low Sodium (2gm) Addtl Attending Provider Instructions: Follow-up with your primary care physician within a week time and likely you will need labs CBC/CMP/magnesium/phosphorus. Take your calcitriol tablets as 1 tablet daily. You will need calcium level checked in 5 days upon discharge, coordinate with your dialysis unit. Follow-up with Dr. Xavier for your mediastinal mass/bony lesion/GIST tumor as prior. Maintain low-sodium diet of less than 2 g a day. Maintain fluid restriction as recommended by your nephrology. Your blood pressure was on the higher side while in hospital, your hydralazine has been uptitrated from 10 mg a.m. p.m. to 25 mg a.m. p.m. Measure blood pressure twice a day and maintain a log to take to your primary care physician for further adjustment in your blood pressure medications. Follow-up with nephrology as prior or soon if needed. Please make sure that you are able to get your medications today by calling your pharmacy before you leave the hospital so that your treatment continuity is not broken. Pending Studies at Discharge: No Stand-Alone Forms: My [facility], Smoking Cessation Medications and DC Order Prescriptions: New hydralazine 25 mg Tablet 25 mg PO BID Qty: 60 0RF Continued omeprazole 40 mg Capsule,Delayed Release(Dr/Ec) 40 mg PO DAILYBB aspirin 81 mg Tablet,Chewable 81 mg PO QAM Rx Instructions: TAKE WITH FOOD gabapentin 100 mg Capsule 100 mg PO BID fluticasone propionate [Flonase Allergy Relief] 50 mcg/actuation [place],Suspension 1 spray INTRANASAL DAILY PRN (Reason: Allergy Symptoms) magnesium oxide 400 mg magnesium Tablet 400 mg PO QAM ondansetron HCl 8 mg Tablet 8 mg PO TID PRN (Reason: PRIOR TO CHEMOTHERAPY MEDS) amlodipine 5 mg Tablet 5 mg PO BID prochlorperazine maleate [Compazine] 10 mg Tablet 10 mg PO Q6H PRN (Reason: NAUSEA/VOMITING) triamcinolone acetonide 0.1 % Cream 1 applic TOPICAL 2XWK PRN (Reason: Skin Irritation) levothyroxine 100 mcg Tablet 100 mcg PO DAILYBB Harris Caps 1 mg Capsule 1 cap PO DAILY Rx Instructions: TAKE AFTER DIALYSIS TREATMENT metoprolol tartrate 25 mg Tablet 37.5 mg PO BID Rx Instructions: TAKE 1 1/2 TABS BID calcium acetate(phosphat bind) 667 mg Capsule 1,334 mg PO TIDM Qty: 180 0RF Lokelma 10 gram Powder In Packet 10 g PO DAILY@1500 Qty: 30 0RF oxycodone-acetaminophen 2.5-325 mg Tablet 1 tab PO Q8H PRN (Reason: pain,severe) imatinib [Gleevec] 100 mg Tablet 200 mg PO PM Rx Instructions: TAKE WITH A MEAL Changed calcitriol 0.5 mcg Capsule 0.5 mcg PO DAILY Qty: 30 0RF Discontinued hydralazine 10 mg Tablet 10 mg PO AMPM Discharge Orders: Discharge Order (Routine); Ordered 09/24/22 Ordered By: Lexx Peralta Admission Data Admit Date/Time: 09/22/22 20:30 Attending Provider: Lexx Peralta Admit Provider: Serafin Echavarria Primary Care Provider: Jameel Reyna Other Providers: Serafin Echavarria ; Tori Friedman ; Paulo Roldan ; Tabatha Hernandez Japheth E. ; Saadia Zuleta ; Lakeisha Dalton
[2022-09-24] MEDS ORDERED: IMATINIB MESYLATE PO SCH (16:30)
--- NOTE | 2022-09-24 17:33 | Nephrology Progress Note ---
Date of Service September 24, 2022 Assessment & Plan (1) Hypercalcemia: Plan: calcium 11.2 on admission to 10 on last check on high dose Ca supplements after recent parathryoidectomy >>advised to lower calcitirol to daily frmo bid dosing; hospitalist updated -recommend also weekly calcium checks at OP dialysis after d/c (2) Hypoxia: Plan: Likely related with fluid overload in a patient with underlying pulmonary hypertension/COPD/diastolic heart failure > resolved for now; also a component of noncompliance w/ OP HD txs (3) ESRD (end stage renal disease) on dialysis: Plan: had extra dialysis this admission and aggressive UF. volume status ok now. >next HD on 09/26 as op Admission and Anticipated Discharge Date Admission Date: September 22, 2022 Subjective seen on midday rounds. no sob; abd pain controlled. tells me she takes calcitriol 2 tabs daily as OP in addition to phoslo. Review of Systems Review of Systems: All systems reviewed & are unremarkable except as noted in Subjective Physical Exam Constitutional: well developed (up in chair on RA) and well nourished Eyes: EOM intact bilaterally ENMT: Ears: no external ear abnormality Nose: no external nose abnormality Mouth: + dry oral mucous membranes Neck: no nuchal rigidity Respiratory: normal respiratory effort Auscultation: + diminished lung sounds Gastrointestinal (Abdomen): Inspection/Auscultation: normal bowel sounds Percussion/Palpation: abdomen soft; abdomen nontender Musculoskeletal: Extremities: strength 5/5 throughout Skin: no rashes, warm and dry Neurologic: gregory, fluent speech, no tremor Results & Data Vital Signs (Past 12 Hours) Vital Signs Temp Pulse Pulse Pulse Pulse Resp BP 09/24/22 13:55 37.2 C 72 69 72 19 146/70 H 09/24/22 11:29 37.2 C 69 19 146/70 H 09/24/22 07:29 36.9 C 76 19 168/88 H 09/24/22 07:16 81 Pulse Ox O2 Del Method 09/24/22 13:55 95 09/24/22 11:29 95 Room Air 09/24/22 07:29 92 Room Air 09/24/22 07:16 Laboratory Results 09/24/22 07:38 09/24/22 07:38
--- NOTE | 2022-09-26 08:26 | Coding Query ---
CONGESTIVE HEART FAILURE To Promote full compliance with coding requirements relating to patient care, physician participation is requested in all cases of kiln puller uncertainty. Please assist us with the following questions. A diagnosis of Congestive Heart Failure is documented in the patient's medical record. To accurately code this diagnosis and to compare patient severity, we ask that you specify the type of heart failure by placing an X within the parenthesis (x). SYSTOLIC HEART FAILURE ( ) Acute ( ) Chronic ( ) Acute on Chronic ( ) Rheumatic ( ) Unknown DIASTOLIC HEART FAILURE ( ) Acute ( ) Chronic ( ) Acute on Chronic ( ) Rheumatic ( ) Unknown COMBINED SYSTOLIC AND DIASTOLIC HEART FAILURE ( ) Acute ( ) Chronic ( ) Acute on Chronic ( ) Rheumatic ( ) Unknown Was the CHF Present On Admission? Please check the appropriate box: ( ) Present on Admission ( ) Not Present On Admission ( x) Clinically undetermined, mostly volume overload in dialysis patient improved w/ dialysis. Thank you Mami LEON
== END 2022-09-24 15:17 | disposition home or self-care (01) | DRG 291 ==
LOC: ED 16:30 → 2S 20:30

== ENCOUNTER 2023-03-15 02:16 | Inpatient (IN) ==
--- NOTE | 2023-03-15 03:05 | Emergency Department Note ---
Impression & Plan Acute hyperkalemia, Butt's palsy, Dizziness Admit to the [facility] ED Provider Note NAME: JESUS CAO AGE: 67 SEX: Female INFORMANT: Patient ED PROVIDER(S): Rosemary Birmingham DO CHIEF COMPLAINT: Dizziness; off-balance PLAN: Disposition: Admit to the [facility] MEDICAL DECISION MAKING: This is a 67-year-old female patient who was diagnosed with Butt's palsy last week and now presents to the emergency department with worsening dizziness and feelings that she is off balance. On physical exam, the patient has obvious left-sided facial findings consistent with Butt's palsy. The rest of her neurological exam was normal. Laboratory studies revealed no leukocytosis. Hemoglobin was 11.2. Sodium was 132 potassium was elevated at 5.8. Patient did have some associated EKG changes with peaked T waves. BUN and creatinine are at the patient's baseline at 74/10.4 respectively. Glucose was 127. Patient was treated for her hyperkalemia with IV calcium gluconate, IV insulin and IV dextrose. She will require acute hemodialysis. As for the patient's feelings of dizziness and being off balance, she went for MRI of her brain to rule out any other acute neurological cause of her symptoms. This was negative. I discussed the case with the [facility] and they will evaluate for further management Care/management discussed with: manager professional development; [facility] Triage Nursing notes: Reviewed and agree with them. Vital Signs: reviewed and remarkable for hypertension and tachycardia Additional History obtained from: The patient's who is at the bedside Chronic Medical/Social Conditions affecting care: End-stage renal disease on dialysis-the patient missed her dialysis treatment on Monday because she was not feeling well-dizziness and loss of balance Differential Diagnosis: Acute CVA, dehydration, electrolyte abnormality, hypoglycemia, hyperglycemia Diagnostics, independently interpreted by me: ECG: Normal sinus rhythm in the 60s with peaked T waves. The monitor was picking of the T waves as QRS complexes and gave a rate of 120. There is no ectopy or signs of ischemia. Cardiac Monitoring: Normal sinus rhythm at a rate of 64 Imaging studies: MRI of the brain-as per radiology report HPI: 67 year old Female arrives for evaluation of dizziness and feelings of off balance. 67-year-old female patient was diagnosed with Butt's palsy last week and significant left-sided facial symptoms. She has developed worsening feelings of being off balance, difficulty walking, bilateral lower extremity weakness, and dizziness. PAST MEDICAL HISTORY: See Below, PAST SURGICAL HISTORY: See Below, SOCIAL HISTORY: See Below, HOME MEDICATIONS: See list ALLERGIES: See list VITALS: See Below PHYSICAL EXAMINATION: HEENT: Head - normocephalic and atraumatic. Pupils are equal, round, and reactive to light. Extraocular eye muscles are intact and sclera are anicteric. Ears - bilaterally patent canals with noninjected tympanic membranes and no evidence of hemotympanum. Nose - moist nasal mucosa without discharge. Mouth - moist buccal mucosa. Oropharynx is nonerythematous and there is no tonsillar exudate or edema noted. Neck: Supple; no JVD or nuchal rigidity Heart: Regular rate and rhythm. There is a normal S1 and S2 with no murmurs, clicks, or gallops appreciated. Lungs: Clear to auscultation bilaterally with no wheezes, rales, or rhonchi. Abdomen: Soft, completely nontender, nondistended, with good bowel sounds. There are no palpable pulsatile masses or hepatosplenomegaly. There is no guarding, rigidity, or rebound noted. Extremities: No evidence of cyanosis, clubbing, or edema. There are easily palpable peripheral pulses. Neuro:The patient is awake and alert, oriented to day, time, and place. Muscle strength is 5/5 in all 4 extremities. The patient has equal senior it specialist strength and equal pedal push and pull. There are no cerebellar signs. The patient has obvious left-sided facial droop and inability to wrinkle the left forehead. Emergency department treatment: bundle shaker, IV calcium gluconate, IV dextrose, IV insulin Emergency department course: The patient was evaluated in room B-6. A complete history and physical was performed. Laboratory studies were drawn as above. Twelve-lead EKG was obtained as described above. An order was placed for continuous cardiac monitoring. The patient went for MRI of the brain. The patient was given a dose of IV calcium gluconate, IV dextrose, and IV insulin. I discussed the case with the [facility] and they will evaluate for further inpatient care. I have personally spent greater than 45 minutes of critical care time in the direct management of this patient. This includes bedside care, interpretation of diagnostic studies, and testing, discussion with consultants, patient, and family members, and other required patient management activities. This 45 minutes is in excess of all separately billable procedures. Past Med/Surg History Medical History Abnormal stress test 01/2021 (reversible anterior and basal lateral defect consistent with ischemia vs soft tissue attenuation artifact) per [facility] cardio records, plan for medical management and consideration for DSE at 03/2021 appt; final determination per [facility] cardio is recommendation for diagnostic cardiac catheterization not yet scheduled by patient; now advised risk > benefit per [facility] cardio Anemia in chronic kidney disease AV fistula left upper arm (functioning), also one to left wrist, but does not function properly Chronic back pain COPD (chronic obstructive pulmonary disease) stable per pt, no longer using supplemental oxygen-states home pulse ox readings are consistently 97% or greater-pt states provider is aware COVID-19 hx-01/29/22-not hospitalized-symptoms fully resolved ESRD (end stage renal disease) on dialysis MWF at [facility] in [place] 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 At least 1 of the peritoneal dialysis catheters had to be removed because of peritonitis..." HLD (hyperlipidemia) HTN (hypertension) controlled, stable per pt Hypocalcemia Hypothyroidism s/p thyroidectomy at [facility] 06/28/22 Limb alert care status left arm Mediastinal mass ongoing work-up with [facility] thoracic medicine and heme/onc Migraine Neck pain h/o UE paresthesias; pt states neck pain and upper extremity abnormal symptoms>fully resolved Palpitations Port-A-Cath in place has not used in a long time Pulmonary hypertension Secondary hyperparathyroidism Sleep apnea severe per [facility] records, no device currently > has apt soon to see about getting back on device Thyroid nodule s/p thyroidectomy Surgical History H/O cystoscopy History of appendectomy History of bilateral tubal ligation History of section x1 History of cholecystectomy History of colonoscopy History of esophagogastroduodenoscopy (EGD) History of kidney transplant 08/28/[place] [facility] [place]) functions at only 10%--d/t ESRD > follows with dr at [facility] History of laparoscopy History of surgery hx perm cath insertion & removal History of tonsillectomy and adenoidectomy History of tooth extraction History of wisdom tooth extraction Hx of total thyroidectomy 06/28/22, [facility]>3 1/2 of parathyroid removed, also removed nodules that were "non cancerous" Family History Grandmother (Paternal) Family history of diabetes mellitus Grandmother (Maternal) Family history of diabetes mellitus Family hx of colon cancer Mother Family hx of colon cancer Other No family history of adverse response to anesthesia Social History Smoking Status: Never smoker Tobacco Type: Cigarettes Second Hand Exposure: No; Do You Dip or Chew Tobacco: No; Hx Alcohol Use: No Hx Substance Use: Yes Preferred Language: Chinese Communication Ability: Effective Concessionist Required: No Beliefs That Will Affect Care: None marital status: Current Living Situation: Spouse Current Living Situation Comment: lives at home w spouse How many Children do You have: 1 Feels Safe at Home: Yes Assistive Devices: Glasses Allergies Allergies Allergy/AdvReac Type Severity Reaction Status Date / Time levofloxacin AdvReac Severe C-DIFF Verified 03/15/23 02:53 Home Meds Home Medications Medication Instructions Recorded Confirmed aspirin 81 mg chewable tablet 81 mg PO QAM 04/23/18 03/15/23 fluticasone propionate 50 1 spray intranasal DAILY PRN 04/23/18 03/15/23 mcg/actuation nasal Allergy Symptoms spray,suspension (Flonase Allergy Relief) gabapentin 100 mg capsule 100 mg PO TID 04/23/18 03/15/23 omeprazole 40 mg capsule,delayed 40 mg PO QAM 04/23/18 03/15/23 release magnesium oxide 400 mg PO QAM 03/08/22 03/15/23 amlodipine 5 mg tablet 5 mg PO BID 07/21/22 03/15/23 levothyroxine 100 mcg tablet 100 mcg PO QAM 07/21/22 03/15/23 metoprolol tartrate 25 mg tablet 37.5 mg PO BID 07/21/22 03/15/23 ondansetron HCl 8 mg tablet 8 mg PO TID PRN PRIOR TO 07/21/22 03/15/23 CHEMOTHERAPY MEDS prochlorperazine maleate 10 mg 10 mg PO Q6H PRN NAUSEA/VOMITING 07/21/22 03/15/23 tablet (Compazine) triamcinolone acetonide 0.1 % 1 applic topical Q3D PRN Skin 07/21/22 03/15/23 topical cream Irritation vitamin B complex and vitamin C 1 cap PO DAILY 07/21/22 03/15/23 no.20-folic acid 1 mg capsule (Lucas Caps) oxycodone-acetaminophen 2.5 mg-325 1 tab PO Q8H PRN pain,severe 09/12/22 03/15/23 mg tablet imatinib 100 mg tablet (Gleevec) 200 mg PO QPM 09/22/22 03/15/23 calcitriol 0.5 mcg capsule 0.5 mcg PO QAM 10/20/22 03/15/23 calcium acetate(phosphat bind) 667 1,334 mg PO TID 10/20/22 03/15/23 mg capsule docusate sodium 100 mg capsule 100 mg PO BID 10/20/22 03/15/23 (Stool Softener) hydralazine 50 mg tablet 50 mg PO BID 10/20/22 03/15/23 polyethylene glycol 3350 17 17 g PO BID 10/20/22 03/15/23 gram/dose oral powder (Miralax) Previous Rx's Medication Instructions Recorded carboxymethylcellulose sodium 1 drp ophthalmic (eye) 6XD PRN dry 03/09/23 (Refresh Contacts eye drops) eye(s) #12 mL prednisone 20 mg tablet 60 mg (3 x 20 mg) PO DAILY 7 days 03/09/23 #21 tabs valacyclovir 500 mg tablet 500 mg PO DAILY #7 tabs 03/09/23 (Valtrex) white petrolatum-mineral oil 56.8 1 applic ophthalmic (eye) HS PRN 03/09/23 %-42.5 % eye ointment (Refresh dry eyes 10 days #3.5 grams Lacri-Lube) Results & Data (ED) Vital Signs Vital Signs - 24 hr 03/15/23 02:22 03/15/23 02:36 03/15/23 02:36 Temperature 36.1 C L Temperature Source Oral Pulse Rate 63 63 140 H Pulse Rate [Finger] Pulse Rate from SpO2 Sensor 68 Respiratory Rate 14 15 Respiratory Effort / Characteristics Non-Labored Spontaneous Respiratory Depth Normal Blood Pressure 148/90 H Blood Pressure [Right Arm] Blood Pressure Mean 109 Blood Pressure Mean [Right Arm] Pulse Oximetry 97 96 Oxygen Delivery Method Room Air Oxygen Flow Rate Sepsis New/Unexplained Change in Mental Status No Sepsis Action Taken by Nursing No Action Required 03/15/23 02:40 03/15/23 02:49 03/15/23 02:50 Temperature Temperature Source Pulse Rate 125 H Pulse Rate [Finger] Pulse Rate from SpO2 Sensor 63 Respiratory Rate 14 Respiratory Effort / Characteristics Respiratory Depth Blood Pressure Blood Pressure [Right Arm] Blood Pressure Mean Blood Pressure Mean [Right Arm] Pulse Oximetry 98 97 97 Oxygen Delivery Method Room Air Room Air Oxygen Flow Rate 0 Sepsis New/Unexplained Change in Mental Status Sepsis Action Taken by Nursing 03/15/23 04:48 03/15/23 06:09 03/15/23 06:30 Temperature Temperature Source Pulse Rate 62 Pulse Rate [Finger] 64 62 Pulse Rate from SpO2 Sensor Respiratory Rate 18 18 Respiratory Effort / Characteristics Respiratory Depth Blood Pressure Blood Pressure [Right Arm] 113/86 143/76 H Blood Pressure Mean Blood Pressure Mean [Right Arm] 95 98 Pulse Oximetry 94 92 Oxygen Delivery Method Room Air Room Air Oxygen Flow Rate Sepsis New/Unexplained Change in Mental Status Sepsis Action Taken by Nursing Laboratory Data 03/15/23 02:45 03/15/23 00:40 Lab Results 03/15/23 03/15/23 03/15/23 Range/Units 00:40 02:45 08:10 WBC 6.96 (4.8-10.8) K/ul RBC 3.53 L (4.20-5.40) M/uL Hgb 11.2 L (12.0-16.0) g/dl Hct 34.0 L (37.0-47.0) % MCV 96.3 (80.0-100.0) fL MCH 31.7 (25.0-34.0) pg MCHC 32.9 (32.0-36.0) g/dL RDW Std Deviation 46.5 H (36.4-46.3) fL RDW Coeff of [place] 13.4 (11.5-14.5) % Plt Count 180 (130-400) K/uL MPV 8.9 L (9.4-12.4) fL Immature Gran % (Auto) 0.9 % Neut % (Auto) 80.8 % Lymph % (Auto) 10.2 % [place] % (Auto) 8.0 % Eos % (Auto) 0.0 % Baso % (Auto) 0.1 % Neut # (Auto) 5.62 (1.40-6.50) K/uL Lymph # (Auto) 0.71 L (1.20-3.40) K/uL [place] # (Auto) 0.56 (0.11-0.59) K/uL Eos # (Auto) 0.00 (0.00-0.50) K/uL Baso # (Auto) 0.01 (0.00-0.20) K/uL Immature Gran # (Auto) 0.06 (0.01-0.20) K/uL Sodium 132 L (136-145) mmol/L Potassium 5.8 H (3.5-5.1) mmol/L Chloride 91 L (98-107) mmol/L Carbon Dioxide 28 (21-32) mmol/L Anion Gap 13 H (3-11) BUN 74 H (6-23) mg/dl Creatinine 10.41 H* (0.6-1.2) mg/dl Est Cr Clr Drug Dosing 5.9 ml/min Est GFR ( Amer) 4.0 ml/min Est GFR (Non-Af Amer) 3.5 ml/min BUN/Creatinine Ratio 7.1 L (10-20) Glucose 127 H (70-99(Fasting)) mg/dl Calcium 8.5 L (8.6-10.3) mg/dl Total Bilirubin 0.5 (0.2-1.0) mg/dl AST 9 L (13-39) U/L ALT 5 L (7-52) U/L Alkaline Phosphatase 23 L (34-104) U/L Total Protein 5.9 L (6.0-8.3) gm/dl Albumin 3.8 (3.4-5.0) gm/dl Globulin 2.1 L (2.5-4.0) gm/dl Albumin/Globulin Ratio 1.8 (0.9-2) SARS-CoV-2, RNA, NAAT NEGATIVE (NEGATIVE) Administered Medications Discontinued Medications Dextrose (Dextrose 50% 50 Ml Syringe) 50 ml IV NOW ONE Stop: 03/15/23 05:08 Last Admin: 03/15/23 05:24 Dose: 50 ml Documented By: TRISHA Calcium Gluconate () 1,000 mg in 60 mls @ 240 mls/hr IV NOW STA Stop: 03/15/23 05:21 Last Infusion: 03/15/23 05:56 Dose: Infused Documented By: Admin: 03/15/23 05:24 Dose: 240 mls/hr Documented By: TRISHA Insulin Human Regular (Novolin-R Insulin Per Unit Charge) 10 units IV NOW STA Stop: 03/15/23 05:08 Last Admin: 03/15/23 05:24 Dose: 10 units Documented By: TRISHA Co-signed By: Imaging Data Radiologist's Impression: Brain MRI 03/15/23 02:46 MRI OF THE BRAIN WITHOUT CONTRAST CLINICAL HISTORY: left facial droop and off balance COMPARISON STUDY: Head CT March 09, 2023. TECHNIQUE: Utilizing a 1.5 Claudia magnet and dedicated coil, multiplanar, multiecho imaging of the brain was performed without IV contrast. FINDINGS: There are no foci of restricted diffusion to suggest acute infarct. No acute intracranial hemorrhage, midline shift or mass effect is present. Ventricular system is unremarkable. Basal cisterns are patent. Flow-voids for the major intracranial vessels are present. No intracranial masses are identified on unenhanced exam. Several small white matter T2 hyperintense foci suggest mild small vessel disease. Calvarial signal is normal. Trace fluid within the right mastoid air cells. No evidence for sinusitis. No orbital abnormality on unenhanced exam. IMPRESSION: No acute intracranial findings. ACT 112: Negative or not required by law. Electronically signed by: Larry Atkinson M.D. 03/15/2023 6:47 AM Discharge Plan Visit Data Chief Complaint: Dizziness Stated Complaint: BELLS PALSY - DIZZY, SLIGHT LEG WEAKNESS ED Provider: Rosemary Birmingham Discharge Problem: Acute hyperkalemia, Butt's palsy, Dizziness Forms Stand Alone Forms: My [facility] [employer] Prescriptions Prescriptions: No Action omeprazole 40 mg Capsule,Delayed Release(Dr/Ec) 40 mg PO QAM aspirin 81 mg Tablet,Chewable 81 mg PO QAM Rx Instructions: TAKE WITH FOOD gabapentin 100 mg Capsule 100 mg PO TID fluticasone propionate [Flonase Allergy Relief] 50 mcg/actuation [place],Suspension 1 spray INTRANASAL DAILY PRN (Reason: Allergy Symptoms) magnesium oxide 400 mg magnesium Tablet 400 mg PO QAM ondansetron HCl 8 mg Tablet 8 mg PO TID PRN (Reason: PRIOR TO CHEMOTHERAPY MEDS) amlodipine 5 mg Tablet 5 mg PO BID prochlorperazine maleate [Compazine] 10 mg Tablet 10 mg PO Q6H PRN (Reason: NAUSEA/VOMITING) triamcinolone acetonide 0.1 % Cream 1 applic TOPICAL Q3D PRN (Reason: Skin Irritation) levothyroxine 100 mcg Tablet 100 mcg PO QAM [place] Caps 1 mg Capsule 1 cap PO DAILY Rx Instructions: TAKE AFTER DIALYSIS TREATMENT metoprolol tartrate 25 mg Tablet 37.5 mg PO BID Rx Instructions: TAKE 1 1/2 TABS BID oxycodone-acetaminophen 2.5-325 mg Tablet 1 tab PO Q8H PRN (Reason: pain,severe) Patient Comments: takes 3 times daily imatinib [Gleevec] 100 mg Tablet 200 mg PO QPM Rx Instructions: TAKE WITH A MEAL docusate sodium [Stool Softener] 100 mg Capsule 100 mg PO BID hydralazine 50 mg Tablet 50 mg PO BID polyethylene glycol 3350 [Miralax] 17 gram/dose Powder 17 g PO BID calcitriol 0.5 mcg capsule 0.5 mcg PO QAM calcium acetate(phosphat bind) 667 mg capsule 1,334 mg PO TID Rx Instructions: w/meals and snack prednisone 20 mg tablet 60 mg PO DAILY 7 Days Qty: 21 0RF Rx Instructions: STARTED 03/09/23 FOR 7 DAYS valacyclovir [Valtrex] 500 mg tablet 500 mg PO DAILY Qty: 7 0RF Rx Instructions: STARTED 03/09/23 FOR 7 DAYS Refresh Contacts Drops 1 drp ophthalmic (eye) 6XD PRN (Reason: dry eye(s)) Qty: 12 0RF Refresh Lacri-Lube 56.8-42.5 % ointment 1 applic ophthalmic (eye) HS PRN (Reason: dry eyes) 10 Days Qty: 3.5 0RF Referrals Referrals: Jameel Reyna DO [Primary Care Provider] -
[2023-03-15 03:12] LABS: Basophils # (auto) 0.01 K/uL (0.00-0.20); Basophils % (auto) 0.1 %; Hemoglobin 11.2 g/dl (12.0-16.0); Immature Granulocytes # (auto) 0.06 K/uL (0.01-0.20); Immature Granulocytes % (auto) 0.9 %; Lymphocytes # (auto) 0.71 K/uL (1.20-3.40); Lymphocytes % (auto) 10.2 %; Mean Corpuscular Hemoglobin 31.7 pg (25.0-34.0); Mean Corpuscular Hgb Conc 32.9 g/dL (32.0-36.0); Mean Corpuscular Volume 96.3 fL (80.0-100.0); Mean Platelet Volume 8.9 fL (9.4-12.4); Monocytes # (auto) 0.56 K/uL (0.11-0.59); Neutrophils # (auto) 5.62 K/uL (1.40-6.50); Neutrophils % (auto) 80.8 %; Platelet Count 180 K/uL (130-400); RDW Coefficient of Variation 13.4 % (11.5-14.5); RDW Standard Deviation 46.5 fL (36.4-46.3); Red Blood Count 3.53 M/uL (4.20-5.40); White Blood Count 6.96 K/ul (4.8-10.8)
[2023-03-15 03:51] LABS: Albumin Globulin Ratio 1.8 (0.9-2); Albumin Level 3.8 gm/dl (3.4-5.0); BUN Creatinine Ratio 7.1 (10-20); Bilirubin,Total 0.5 mg/dl (0.2-1.0); Calcium 8.5 mg/dl (8.6-10.3); Creatinine Clr Calc Pharmacy 5.9 ml/min; Est GFR (Non-African American) 3.5 ml/min; Globulin 2.1 gm/dl (2.5-4.0); Potassium 5.8 mmol/L (3.5-5.1); Total Protein 5.9 gm/dl (6.0-8.3)
[2023-03-15] MEDS ORDERED: NovoLIN-R INSULIN PER UNIT CHARGE IV STA (05:07)
[2023-03-15] MEDS ORDERED: DEXTROSE 50% 50 ML SYRINGE IV ONE (05:07)
[2023-03-15] MEDS ORDERED: CALCIUM GLUCONATE 1,000 MG/60 ML BAG IV STA (05:07)
--- OUTSIDE RECORDS SUMMARY | 2023-03-15 06:08 | External Medical Summary | Summary of Care ---
Author Name Unknown Organization [facility] Address [address] [place] [address] Phone [phone] Care Team Providers Care Hole Digger Name Role Phone Jameel Reyna DO Primary Care Provider [phone] Reason for Visit * Reason Comments Medication Management Encounter Details Date Type Department Care Team (Late st Contact Info) Description 03/15/2023 9:30 AM [facility] Pharmacy Pharmacy Hematology Oncology [facility] [address], [place] [id number] [facility] Hem/Onc [address], [place] [id number] 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 0 Active aspirin 81 MG chewable tablet Take 1 Tablet by mouth in the morning. with food.. 100 Tab 5 08/13/2017 Active Triamcinolone Acetonide 0.1 % External Cream (Aristocort) Apply topically to affected area on arms and abdomen twice daily for 2 weeks then daily for 2 weeks then twice per week as needed. 453.6 g 0 04/12/2022 Active Calcitriol 0.5 MCG Oral Capsule (Rocaltrol) Take 1 Capsule by mouth in the morning. 0 08/29/2022 Active Calcium Acetate (Phos Binder) 667 MG Oral Capsule (Phoslo) TAKE TWO CAPSULES BY MOUTH THREE TIMES A DAY WITH MEALS AND ONE CAPSULE WITH SNACKS 720 Capsule 4 08/05/2022 08/05/19 24 Active Levothyroxine Sodium 100 MCG Oral Tablet (Levoxyl)Indication s:Postoperative hypothyroidism TAKE 1 TABLET BY MOUTH DAILY AT LEAST 30 MINUTES PRIOR TO FIRST MEAL OF THE DAY OR OTHER MEDICATIONS 90 Tablet 3 07/21/2022 07/21/19 24 Active Compressor NebulizerIndication s:COPD, group B, by GOLD 2017 classification ([facility]) Inhale via nebulizer. Use as directed. 1 Each 1 09/29/2022 Active Albuterol Sulfate (2.5 MG/3ML) 0.083% Inhalation Nebulization Solution (Proventil)Indicati ons:COPD, group B, by GOLD 2017 classification ([facility]) Inhale 1 Vial via nebulizer every 4 hours as needed for Wheezing. 120 mL 5 09/29/2022 Active Proventil HFA 108 (90 Base) MCG/ACT Inhalation Aerosol SolutionIndications :COPD, group B, by GOLD 2017 classification ([facility]) Inhale 2 Puffs by mouth in the morning and 2 Puffs at noon and 2 Puffs in the evening and 2 Puffs before bedtime. 18 g 3 09/29/2022 Active hydrALAZINE HCl 25 MG Oral Tablet (Apresoline)Indicat ions:HTN, goal below 140/90,Hypertensive kidney disease with chronic kidney disease stage V ([facility]) Take 1 Tablet by mouth in the morning and 1 Tablet in the evening. 200 Tablet 5 10/06/2022 Active Additional Information Patient taking differently: 50 mgOral BID (0700,1900), Reported on 12/15/2022 Gabapentin 100 MG Oral Capsule (Neurontin)Indicati ons:Cramp of both lower extremities Take 1 Capsule by mouth in the morning and 1 Capsule at noon and 1 Capsule before bedtime. 300 Capsule 3 10/06/2022 Active Omeprazole 40 MG Oral Capsule Delayed Release (PriLOSEC)Indicatio ns:Gastrointestinal stromal tumor (GIST) of stomach ([facility]) Take 1 Capsule by mouth in the morning. 100 Capsule 3 10/06/2022 Active Polyethylene Glycol 3350 17 GM/SCOOP Oral Powder (Miralax) Take 17 g by mouth in the morning and 17 g before bedtime. Dissolve one heaping tablespoon in 8 ounces of water or juice.. 255 g 0 10/19/2022 Active Docusate Sodium 100 MG Oral Capsule Take by mouth 2 times a day. 60 Capsule 11 10/19/2022 Active Ondansetron HCl 8 MG Oral Tablet (Zofran)Indications :ESRD on dialysis (HCC),Gastrointesti nal stromal tumor (GIST) of stomach (HCC) Take 1 Tablet by mouth every 8 hours as needed for Nausea. Take 1 tablet 30 to 60 minutes before imatinib (Gleevec) administration and every 8 hours as needed 90 Tablet 3 11/16/2022 Active Prochlorperazine Maleate 10 MG Oral Tablet (Compazine)Indicati ons:ESRD on dialysis (HCC),Gastrointesti nal stromal tumor (GIST) of stomach (HCC) Take 1 Tablet by mouth every 6 hours as needed for Nausea. Take 1 tablet at bedtime and every 6 hours as needed 120 Tablet 3 11/16/2022 Active Metoprolol Tartrate 25 MG Oral Tablet (Lopressor) Take 1.5 Tablets by mouth 2 times a day. 300 Tablet 3 12/09/2022 Active amLODIPine Besylate 5 MG Oral Tablet (Norvasc)Indication s:HTN, goal below 140/90 Take 2 Tablets by mouth in the morning. 200 Tablet 3 12/19/2022 Active oxyCODONE-Acetamino phen 5-325 MG Oral Tablet (Percocet)Indicatio ns:Chronic midline low back pain without sciatica,Mass of thoracic vertebra Take 1 Tablet by mouth every 8 hours as needed for Pain, Severe. 45 Tablet 0 03/07/2023 Active documented as of this encounter (statuses as of 03/14/2023) Active Problems Problem Noted Date Diagnosed Date Dilated cbd, acquired 10/06/2022 History of thyroid cancer 07/06/2022 Postoperative hypothyroidism 07/06/2022 Graves disease 04/13/2022 COPD, group B, by GOLD 2017 classification 03/21 Overview: Per COPD GOLD Classification Chronic hypoxemic respiratory failure 03/15/2022 Kidney transplant failure 01/29/2022 Pulmonary hypertension, unspecified 01/29/2022 VRE (vancomycin-resistant Enterococci) infection 10/13/2021 Overview: 11/01 urine Gastrointestinal stromal tumor (GIST) of stomach 07/12/2021 ESRD on dialysis 06/10/2021 Chronic kidney disease (CKD), stage V 09/23/2020 Hypertensive kidney disease with chronic kidney disease stage V 05/08/2020 Postherpetic neuralgia 03/16/2020 Migraine, unspecified, not i ntractable, without status migrainosus 03/16/2020 Severe obstructive sleep apnea 01/20/2017 Nocturnal hypoxemia 01/20/2017 Need for prophylactic immunotherapy 09/06/2016 Kidney replaced by transplant 09/02/2016 Sigmoid diverticulosis 12/02/2015 HTN, goal below 140/90 04/01/2014 Dyslipidemia, goal LDL below 100 07/20/2011 Uterine leiomyoma 05/25/2011 Esophageal reflux 08/19/2010 Anemia of chronic renal failure 06/08/2010 ADVANCE DIRECTIVE INFORMATION 10/13/2006 Overview: No, Advance Directive brochure offered , patient declined. 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 0 to 44.9 in adult 05/23/2017 03/28/2019 Overview: Per Obesity protocol #1 Status post biopsy of kidney 02/01/2017 01/08/2018 Overview: Diagnosis: Suspicious for Antibody-Mediated Rejection, C4d negative. Transpalnt glomerulitis, moderate to severe. Peritubular Capillaritis, Mild to moderate. Negative for acute t-cell mediated rejection. Tubular ATrophy and Interstitial fibrosis, moderate. Arteriosclerosis, severe. Comment: Correlation with donor-specific antibodies is needed to confirm the diagnosis." Treated with 1 gram IV solumedrol 02/04/17, 02/05/2017, 02/06/2017 and then Oral Prednisone 20mg daily recycle-high risk protocol taper dose CKD (chronic kidney disease) stage V requiring chronic dialysis 05/28/2015 09/06/2017 Anemia in ESRD (end-stage renal disease) 10/14/2014 03/08/2019 Pre-operative cardiovascular examination 04/29/2014 08/29/2016 VU (dyspnea on exertion) 04/29/2014 Depression 10/01/2013 12/02/2015 Abdominal wall abscess at si te of surgical wound 06/14/2013 01/08/2018 Overview: S/p I&D on 06/13/13. Currently being packed. Sepsis 06/14/2013 06/16/2013 Pre-transplant evaluation fo r ESRD (end stage renal disease) 01/26/2012 08/29/2016 A-V fistula 06/21/2011 01/31/2018 ANEMIA IN ESRD CHRONIC 06/23/201012/01 Intestinal infection due to Clostridium difficile 10/28/2009 01/08/2018 HTN, goal below 130/80 04/08/200904/01 Overview: Per HTN Taxonomy. HTN, goal below 140/90 11/25/200804/08 Overview: Per HTN Taxonomy. Anemia 07/24/2007 01/08/2018 Calculus of gallbladder with out mention of cholecystitis or obstruction 11/09/2006 10/17/2009 Overview: Cholecystectomy 10/2006 Cholesterol polups Kidney disease, chronic, sta ge IV (GFR 15-29 ml/min) 05/24/2005 05/08/2020 Diarrhea 10/28/2009 documented as of this encounter (statuses as of 03/14/2023) Immunizations Name Administration Dates Next Due COVID-19 mRNA, LNP-s, No Pre serve, 2-Dose Series (Genwords) 01/09/2021,06/03/2020,05/13/2020 COVID-19, MRNA-LNP, 23-24, P F, 30 MCG/0.3 mL, 12 YRS AND ABOVE, IM (HouzeMe-Comirnat) 12/26/2022 HepA Inact/HepB Recomb>=18yrs old 07/15/2011 PPD 03/17/2015,11/26/2013,06/10/2011 Pneumococcal Conjugate Vacc, 13 Valent (Prevnar) 03/08/2019 Pneumococcal Polysaccharide PPV23 (Pneumovax) 12/20/2019,07/15/2011 Seasonal Influenza, PF, 6 M & above, IM , (FluLaval or Fluzone) 12/25/2021,12/01/2020,12/20/2019,03/08 Seasonal Influenza, Quadriva lent Hd (Fluzone Hd) 11/29/2022 Seasonal Influenza, Split, I IV3, With Preserve, Inj 12/12/2015,02/04/2014,01/14/2013,03/27,12/21/2010,12/05/2009,11/24/2008 ,04/09/2008 TDAP (age 10 and older)(Boostrix) 01/10/2020 TDAP (age 11 and older)(Adacel) 07/31/2007 Zoster Vaccine Recombinant (Shingrix) 08/02/2022 ,03/15/2022 documented as of this encounter Social History Tobacco Use Types Packs/Day Years Used Date Smoking Tobacco: Former Cigarettes 1 25 Q uit: 2002 Passive Smoke Exposure: Past Smokeless Tobacco: Never Comments:Quit 10 years ago Alcohol Use Standard Drinks/Week Comments No 0 (1 standard drink = 0.6 oz pur e alcohol) PHQ-2 Answer Date Recorded PHQ Adult Total Score 0 12/26/2022 Hunger Vital Sign Answer Date Recorded Within the past 12 months, y ou worried that your food would run out before you got the money to buy more. Never true 12/27/19 23 Within the past 12 months, t he food you bought just didn't last and you didn't have money to get more. Never true 12/26/2022 Sex and Gender Information Value Date Recorded Sex Assigned at Female 03/24/2022 9:41 AM EST Gender Identity Female 03/24/2022 9:41 AM EST Sexual Orientation Straight 03/24/2022 9: 41 AM EST Job Start Date Occupation Industry Not on file Not on file Not on file documented as of this encounter Functional Status Functional Status Response Date of Assess ment Are you deaf or do you have serious difficulty hearing? No 06/29/2022 Are you blind or do you have serious difficulty seeing, even when wearing glasses? No 06/29/2022 Do you have serious difficul ty walking or climbing stairs? (5 years old or older) No 06/29/2022 Do you have difficulty dress ing or bathing? (5 years old or older) No 06/29/2022 Because of a physical, menta l, or emotional condition, do you have difficulty doing errands alone such as visiting a doctor s office or shopping? (15 years old or older) Yes-Patient does not drive. drives her to appointments and shopping. 06/29/2022 Cognitive Status Response Date of Assessm ent Because of a physical, menta l, or emotional condition, do you have serious difficulty concentrating, remembering, or making decisions? (5 years old or older) No 06/29/2022 documented as of this encounter Progress Notes * Christy Cazares, [facility] - 03/14/2023 2:55 PM EST MEDICATION THERAPY MANAGEMENT IMATINIB TREATMENT PROGRESS NOTE Sonia Bernal [phone] Patient Phone Numbers Communication: Spoke to: Patient Treatment: Medication: Imatinib (Gleevec) Indication: GIST Dose: 200mg daily Administration: with food Start Date: 12/20/21 Primary Interior Mechanic/Oncologist: Dr. Jigar Xavier Supportive Care Meds: Ondansetron Prochlorperazine Prophylactic Meds: None Dose adjustment / medication hold: 01/06/22: imatinib dose increased to 300mg daily 01/28/22: imatinib dose reduced to 200mg daily due to poor tolerability 06/21/22-09/01/22: imatinib held for thyroidectomy and parathyroidectomy 09/12/22-09/24/22: imatinib held during hospital admissions Interval History: Per OV 11/18/21, pt has ESRD on HD. States she will be changing dialysis centers and going to [facility] every MWF at 1330 Confirms taking imatinib with evening meal after HD Admitted to [facility] 07/21/22-07/28/22 for hypocalcemia Per OV 09/01/22, pt did not resume imatinib as advised 07/07/22 after thyroid surgeries and advised to resume treatment at OV Admitted to [facility] 09/12/22-09/15/22 for abdominal pain and readmitted 09/22/22-09/24/22 for fluid overload/respiratory failure. Per TE 03/09/23, pt advised to go to ED when reporting droopy right side of face States she was diagnosed with [place] Palsy No concerns regarding imatinib, tolerating therapy well Changes to medication list since last visit? No Assessment and Plan: Hgb declining. Will monitor closely PLT improving to WNL All other labs stable Continue close follow up with PCP for [place] Palsy diagnosis Continue current therapy and monthly labs Next due with OV Scheduled 04/06 @1300 Assessment of compliance: compliant Assessment of adverse effects attributed to drug therapy: Edema - absent Rash -absent Diarrhea -absent Nausea/Vomiting - absent Dose adjustment needed based on lab or adverse drug reaction? No Follow up: 04/07 OV/labs; 05/05 MTM with labs Christy Cazares, PharmD, BCOP Clinical Pharmacist, [facility] Oral Chemotherapy [facility] 03/14/2023, 3:03 PM Pertinent labs: Latest Reference Range & Units 12/12/22 16:17 01/19/23 11:29 03/10/23 15:02 WBC 4.00 - 10.80 K/uL 5.30 4.99 5.37 HGB 12.0 - 15.3 g/dL 11.4 (L) 10.8 (L) 10.3 (L) HCT 36.0 - 45.2 % 35.2 (L) 33.2 (L) 31.5 (L) MCV 81.5 - 97.5 fL 102.3 101.8 99.1 PLT 140 - 400 K/uL 144 136 (L) 140 Absolute Neutrophils 1.80 - 7.70 K/uL 2.97 2.75 3.30 Latest Reference Range & Units 12/12/22 16:17 01/19/23 11:29 03/10/23 15:02 BUN 6 - 20 mg/dL 17 27 (H) 14 Creatinine 0.5 - 1.0 mg/dL 5.0 (H) 7.5 (H) 3.6 (H) Estimated Glomerular Filtration Rate >=60 mL/min 9 (L) 6 (L) 13 (L) Latest Reference Range & Units 12/12/22 16:17 01/19/23 11:29 03/10/23 15:02 Albumin 3.8 - 5.0 g/dL 4.4 4.1 4.0 AST 10 - 35 U/L 17 13 15 ALT 10 - 35 U/L 11 <5 (L) <5 (L) Alkaline Phosphatase 35 - 130 U/L 31 (L) 26 (L) 25 (L) Bilirubin, Total <=1.2 mg/dL 0.4 0.5 0.5 Time Spent on Encounter: 6 - 10 minutes Encounter Group: Oncology Encounter Interventions Item Category: Oral Chemotherapy Imatinib Problem/Rationale: Safety: Needs additional monitoring - Medication Requires monitoring Pharmacist Intervention(s): Care coordination, Lab monitoring, and Toxicity monitoring Magnitude of Intervention: Monitoring with direction (Level 1) documented in this encounter Plan of Treatment Upcoming Encounters Date Type Department Care Team (Late st Contact Info) Description 03/16/2023 11:20 AM EST Office Visit Family Practice [address] [facility] [address] [place] [phone] Jameel Reyna, DO [address] [facility] [place] [address] 03/20/2023 2:30 PM EST Telemedicine Virtual Nutrition Services [facility] [address] [facility] [address] [place] [address] Patti Castanon, RUTH [address] [place] [address] 04/04/2023 2:00 PM EST Office Visit Family Practice [address] [facility] [address] [place] [phone] Jameel Reyna, DO [address] [facility] [place] [address] 04/06/2023 1:00 PM EST Laboratory Lab [address] [address] [place], Lab [address] [address] 04/07/2023 3:30 PM EST Office Visit Hematology/Oncology [facility] [address] [place] [address] Lexis Andino CRNP [address] [place] [address] 05/05/2023 9:30 AM EST Pharmacy Pharmacy Hematology Oncology [facility] [address] [place] [address] [facility] Hem/Onc [address] [place] [address] Scheduled Procedures Name Priority Associated Diagnoses Date/Ti me COLONOSCOPY FLEXIBLE PROXIMAL DIAGNOSTIC Recall History of colon polyps Health Maintenance Due Date Last Done Comments Alpha-1 Antitrypsin 11/21/1975 *COPD SEVERITY VERIFIED BY PFT 02/01/2022 Mammogram 03/15/2023 03/15/2022, 05/12, 10/01/2014, Additional history exists TSH 09/11/2023 09/10/2022, 08/11, 07/19/2022, Additional history exists O2 ASSESSMENT COMPLETED IN PAST YEAR FOR COPD 12/16/2023 12/15/2022 Depression Screening 12/27/2023 12/26/2022 COLONOSCOPY-EVERY 3 YRS AGES 18-100 05/14/2024 05/14/2021, 01/28/2016, 01/10/2014, Additional history exists Pneumococcal Vaccine: 65+ Years (4 - PPSV23 or PCV20) 12/19/2024 12/20/2019, 03/08/2019, 07/15/2011 Diabetes Screening 03/10/2026 03/10/2023, 1 03/21/2022, 12/12/2022, Additional history exists Lipid Panel 06/03/2027 06/02/2022, 12/12, 12/27/2019, Additional history exists DTaP,Tdap,and Td Vaccines (3 - Td or Tdap) 01/09/2030 01/10/2020, 07/31/2007 COLONOSCOPY-EVERY 2 YRS AGES 18-100 Discontinued 05/14/2021, 01/28/2016, 01/10/2014, Additional history exists Cervical Cancer Screening Discontinued Pap Smear Discontinued 06/08/2021, 05/12, 10/29/2014, Additional history exists Zoster Vaccines Completed 08/02/2022, 03/15/2022 Influenza Vaccine (FLU shot) Completed 11/29/2022, 12/25/2021, 12/01/2020, Additional history exists COVID-19 Vaccine Completed 12/26/2022, , 06/03/2020, Additional history exists GARDASIL-HPV IMMUNIZATION SERIES Aged Out No longer eligible based on patient's age to complete this topic HPV/Co-Test Discontinued MENINGOCOCCAL (MENACTRA/MENVEO) Aged Out No longer eligible based on patient's age to complete this topic documented as of this encounter Medical Devices Implanted Type Area Iuss Analyst Device Identifier Shelf Expiration Date Model / Serial / Lot Port Pwr Mri Isp Profile - [id number] Implanted:Qty: 1 on 01/22/2019 by Bebeto Canseco DO at OR [facility] Right: Chest CR BARD : PERIPHERAL VASCULAR 02/10/2020 [id number] / / [id number] documented as of this encounter Visit Diagnoses Diagnosis 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 Question Answer Comments Discussion of Advance Directives occurred with: Not Discussed due to patient's condition Code Status History Code Status Date Activated Date Inactivated Comments Full Code 11/03/2016 6:57 AM 11/03/2016 8:28 PM Question Answer Comments Discussion of Advance Directives occurred with: Not Discussed Does the patient have a Living Will? No Does the patient have Health Care Power of Threader Operator? No Full Code 10/12/2016 3:15 PM 10/14/2016 6:57 PM Question Answer Comments Discussion of Advance Directives occurred with: Not Discussed Does the patient have a Living Will? No Does the patient have Health Care Power of Threader Operator? No Full Code 08/28/2016 7:34 AM 09/02/2016 8:09 PM Question Answer Comments Discussion of Advance Directives occurred with: Not Discussed Does the patient have a Living Will? No Does the patient have Health Care Power of Threader Operator? No Full Code 06/14/2013 8:04 PM 06/16/2013 7:32 PM This or annmarie reflects the patients wishes and were consensually agreed upon. Question Answer Comments Discussion of Advance Directives occurred with: Patient Does the patient have a Living Will? No Does the patient have Health Care Power of Threader Operator? No Care Teams Hole Digger Relationship Specialty Start Date End Date Jameel Reyna DO [address] [facility] [place] [address] PCP - General Internal Medicine 03/15/22 documented as of this encounter
--- OUTSIDE RECORDS SUMMARY | 2023-03-15 06:08 | External Medical Summary ---
Author Name Unknown Address Unknown Organization [id number] [address] [place] [id number] Laboratory Report Ordering Provider Test Date Status ISHAAN MEDINA 03/10/2023 15:02:47 Final Observation Date Value Abnormality Reference (Units ) Status WBC, Total 03/10/2023 15:02:47 5.37 4.00-10.8 0 (K/uL) Final RBC 03/10/2023 15:02:47 3.18 3.85-5.15 (M/uL) Final Hemoglobin 03/10/2023 15:02:47 10.3 Below low normal 12 .0-15.3 (g/dL) Final HCT 03/10/2023 15:02:47 31.5 Below low normal 36. 0-45.2 (%) Final MCV 03/10/2023 15:02:47 99.1 81.5-97.5 (fL) Final MCH 03/10/2023 15:02:47 32.4 27.0-34.0 (pg) Final MCHC 03/10/2023 15:02:47 32.7 32.0-36.0 (g/dL) Final RDW 03/10/2023 15:02:47 13.1 11.5-15.5 (%) Final Platelets 03/10/2023 15:02:47 140 140-400 (K /uL) Final MPV 03/10/2023 15:02:47 8.7 6.6-11.1 ( fL) Final Performing Location [facility]ORY [facility] [address] [place] [id number]
--- OUTSIDE RECORDS SUMMARY | 2023-03-15 06:08 | External Medical Summary | Summary of Care ---
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 Use as directed. 1 Each 1 09/29/2022 Active Albuterol Sulfate (2.5 MG/3ML) 0.083% Inhalation Nebulization Solution (Proventil)Indicati ons:COPD, group B, by GOLD 2017 classification ([facility]) Inhale 1 Vial via nebulizer every 4 hours as needed for Wheezing. 120 mL 5 09/29/2022 Active Proventil HFA 108 (90 Base) MCG/ACT Inhalation Aerosol SolutionIndications :COPD, group B, by GOLD 2017 classification ([facility]) Inhale 2 Puffs by mouth in the morning and 2 Puffs at noon and 2 Puffs in the evening and 2 Puffs before bedtime. 18 g 3 09/29/2022 Active hydrALAZINE HCl 25 MG Oral Tablet (Apresoline)Indicat ions:HTN, goal below 140/90,Hypertensive kidney disease with chronic kidney disease stage V ([facility]) Take 1 Tablet by mouth in the [...] (PriLOSEC)Indicatio ns:Gastrointestinal stromal tumor (GIST) of stomach ([facility]) Take 1 Capsule by mouth in the [...] as of this encounter (statuses as of 03/10/2023) Active Problems Problem Noted Date Diagnosed Date [...] as of this encounter (statuses as of 03/10/2023) Resolved Problems Problem Noted Date Diagnosed Date [...] as of this encounter (statuses as of 03/10/2023) Immunizations Name Administration Dates Next Due COVID-19 mRNA, LNP-s, No Pre serve, 2-Dose Series ([employer]) 01/09/2021,06/03/2020,05/13/2020 COVID-19, MRNA-LNP, 23-24, P F, 30 MCG/0.3 mL, 12 YRS AND ABOVE, IM (FiveCubits-Comirnat) 12/26/2022 HepA Inact/HepB Recomb>=18yrs old 07/15/2011 PPD [...] No 06/29/2022 documented as of this encounter Plan of Treatment Upcoming Encounters Date Type Department Care Team (Late st Contact Info) Description 03/14/2023 10:40 AM EST Office Visit Family Practice 65 [facility] [address] [place] [phone] Jameel Reyna, [address] [place] [address] 03/15/2023 9:30 AM EST Pharmacy Pharmacy Hematology Oncology [facility] [address] [place] [address] [facility] Clinic Hem/Onc [address] [place] [address] 03/20/2023 2:30 PM EST Telemedicine Virtual Nutrition Services 65 [facility] [address] [place] [address] Patti Castanon RDN 106 [place] [address] 03/23/2023 2:15 PM EST Office Visit [facility]ology/On[facility] 200 [place] [address] Leoncio Xavier MD 200 [place] [address] 04/04/2023 2:00 PM EST Office Visit Family Practice 65 [facility] 293 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) 03/10/2023 3:02 PM EST Scheduled Procedures Name Priority Associated Diagnoses Date/Ti [...] PCV20) 12/19/2024 12/20/2019, 03/08/2019, 07/15/2011 Diabetes Screening 01/19/2026 01/19/2023, 1 , 11/15/2022, Additional history exists Lipid Panel 06/03/2027 06/02/2022, [...] this encounter Medical Devices Implanted Type Area Rn Digestive Device Identifier Shelf Expiration Date Model / Serial / Lot Port Pwr Mri Isp Profile - [id number] Implanted:Qty: 1 on 01/22/2019 by Bebeto Canseco DO at OR [facility] Right: Chest CR BARD : PERIPHERAL VASCULAR 02/10/2020 [id number] / / [id number] documented as of this encounter Procedures Procedure Name Priority Date/Time Associated Diagnosis Comments DIFFERENTIAL, AUTOMATED STAT 03/10/2023 3:02 PM EST 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) CBC STAT 03/10/2023 3:02 PM EST 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) CBC STAT 03/10/2023 3:02 PM EST 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) documented in this encounter Results * (ABNORMAL) DIFFERENTIAL, AUTOMATED (03/10/2023 3:02 PM EST) WBC 5.37 4.00 - 10.80 K/uL 03/10/2023 3:12 PM EST [facility] Neutrophils % 61.4 40.0 - 75.0 % 03/10/2023 3:12 PM EST [facility] Lymphocytes % 20.3 18.0 - 42.0 % 03/10/2023 3:12 PM EST [facility] Monocytes % 16.2(H) 1.0 - 11.0 % 03/10/2023 3:12 PM EST [facility] Eosinophils % 1.5 0.0 - 6.0 % 03/10/2023 3:12 PM EST [facility] Basophils % 0.6 0.0 - 2.0 % 03/10/2023 3:12 PM EST [facility] Absolute Neutrophils 3.30 1.80 - 7.70 K/uL 03/10/2023 3:12 PM EST [facility] Absolute Lymphocytes 1.09 1.00 - 4.80 K/ul 03/10/2023 3:12 PM EST [facility] Absolute Monocytes 0.87 0.00 - 1.10 K/uL 03/10/2023 3:12 PM EST [facility] Absolute Eosinophils 0.08 0.00 - 0.70 K/uL 03/10/2023 3:12 PM EST [facility] Absolute Basophils 0.03 0.00 - 0.20 K/uL 03/10/2023 3:12 PM EST [facility] [place] [facility]10 Blood Venous blood specimen / Unknown Venipuncture / Unknown 03/10/2023 3:02 PM EST 03/10/2023 3:02 PM EST Leoncio Xavier MD LAB BLOOD ORDERABLES [facility] [place] [facility] [place] [address] * (ABNORMAL) CBC (03/10/2023 3:02 PM EST) WBC 5.37 4.00 - 10.80 K/uL 03/10/2023 3:12 PM EST [facility] [place] [facility] RBC 3.18 3.85 - 5.15 M/uL 03/10/2023 3:12 PM EST [facility] [place] [facility]10 HGB 10.3(L) 12.0 - 15.3 g/dL 03/10/2023 3:12 PM EST [facility] [place] [facility]10 HCT 31.5(L) 36.0 - 45.2 % 03/10/2023 3:12 PM EST [facility] [place] [facility] MCV 99.1 81.5 - 97.5 fL 03/10/2023 3:12 PM EST [facility] [place] [facility] MCH 32.4 27.0 - 34.0 pg 03/10/2023 3:12 PM EST [facility] MCHC 32.7 32.0 - 36.0 g/dL 03/10/2023 3:12 PM EST [facility] RDW 13.1 11.5 - 15.5 % 03/10/2023 3:12 PM EST [facility] [place] [facility]10 PLT 140 140 - 400 K/uL 03/10/2023 3:12 PM EST [facility] [place] [facility] MPV 8.7 6.6 - 11.1 fL 03/10/2023 3:12 PM EST [facility] [place] [facility]10 Blood Venous blood specimen / Unknown Venipuncture / Unknown 03/10/2023 3:02 PM EST 03/10/2023 3:02 PM EST Leoncio Xavier MD LAB BLOOD ORDERABLES Performing Organization Address City/State/[facility] Co de Phone Number [facility] [place] [facility] [place] [address] documented in this encounter Visit Diagnoses Diagnosis 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 No Full Code 10/12/2016 3:15 PM 10/14/2016 6:57 PM Question Answer Comments Discussion of Advance Directives occurred with: Not Discussed Does the patient have a Living Will? No Does the patient have Health Care Power of Warning Coordination Meteorologist? No Full Code 08/28/2016 7:34 AM 09/02/2016 8:09 PM Question Answer Comments Discussion of Advance Directives occurred with: Not Discussed Does the patient have a Living Will? No Does the patient have Health Care Power of Warning Coordination Meteorologist? No Full Code 06/14/2013 8:04 PM 06/16/2013 7:32 PM This or annmarie reflects the patients wishes and were consensually agreed upon. Question Answer Comments Discussion of Advance Directives occurred with: Patient Does the patient have a Living Will? No Does the patient have Health Care Power of Warning Coordination Meteorologist? No Care Teams Air Duct Mechanic Relationship Specialty Start Date End Date Jameel Reyna DO [address] [place] [address] PCP - General Internal Medicine 03/15/22 documented as of this encounter
--- OUTSIDE RECORDS SUMMARY | 2023-03-15 06:09 | External Medical Summary | Summary of Care ---
Author Name Unknown Organization [facility] Address [address] [place] [place] [address] Phone [phone] Care Team Providers Care Candy Polisher Name Role Phone Jameel Reyna DO Primary Care Provider [phone] Encounter Details Date Type Department Care Team (Late st Contact Info) Description 03/09/2023 Telephone Family Practice 65 [facility] 293 [place] [address] Jameel Reyna DO 293 [place] [address] Allergies Active Allergy Reactions Criticality Noted Date Comments Levofloxacin High 06/14/2021 Other reaction(s): C-DIFF documented as of this encounter (statuses as of 03/09/2023) Medications Medication Sig Dispensed Refills Start Date [...] s:COPD, group B, by GOLD 2017 classification ([facility]) Inhale via nebulizer. Use as directed. 1 Each 1 09/29/2022 Active Albuterol Sulfate (2.5 MG/3ML) 0.083% Inhalation Nebulization Solution (Proventil)Indicati ons:COPD, group B, by GOLD 2017 classification ([facility]) Inhale 1 Vial via nebulizer every 4 hours as needed for Wheezing. 120 mL 09/29/2022 Active Proventil HFA 108 (90 Base) MCG/ACT Inhalation Aerosol SolutionIndications :COPD, group B, by GOLD 2017 classification ([facility]) Inhale 2 Puffs by mouth in the morning and 2 Puffs at noon and 2 Puffs in the evening and 2 Puffs before bedtime. 18 g 3 09/29/2022 Active hydrALAZINE HCl 25 MG Oral Tablet (Apresoline)Indicat ions:HTN, goal below 140/90,Hypertensive kidney disease with chronic kidney disease stage V ([facility]) Take 1 Tablet by mouth in the [...] (PriLOSEC)Indicatio ns:Gastrointestinal stromal tumor (GIST) of stomach ([facility]) Take 1 Capsule by mouth in the [...] as of this encounter (statuses as of 03/09/2023) Active Problems Problem Noted Date Diagnosed Date [...] as of this encounter (statuses as of 03/09/2023) Resolved Problems Problem Noted Date Diagnosed Date [...] as of this encounter (statuses as of 03/09/2023) Immunizations Name Administration Dates Next Due COVID-19 mRNA, LNP-s, No Pre serve, 2-Dose Series ([employer] [place]) 01/09/2021,06/03/2020,05/13/2020 COVID-19, MRNA-LNP, 23-24, P F, 30 MCG/0.3 mL, 12 YRS AND ABOVE, IM (PFIZER-Comirnaty) 12/26/2022 HepA Inact/HepB Recomb>=18yrs old 07/15/2011 PPD [...] No 06/29/2022 documented as of this encounter Miscellaneous Notes * Telephone Encounter - Jameel Reyna DO - 03/09/2023 1:59 PM EST Noted * Telephone Encounter - Sonia Diego LPN - 03/09/2023 10:02 AM EST Patient called in states that her right side of face is droopy. Advised to go to ER. Patient is aware and will comply. Thank you documented in this encounter Plan of Treatment Upcoming Encounters Date Type Department Care Team (Late st Contact Info) Description 03/15/2023 9:30 AM EST Pharmacy Pharmacy Hematology Oncology [facility] [address] [place] [address] [facility] Hem/Onc [address] [place] [address] 03/20/2023 2:30 PM EST Telemedicine Virtual Nutrition Services [address] [place] [address] Patti Castanon RDN [address] [place] [address] 03/23/2023 2:15 PM EST Office Visit Hematology/Oncology [facility] 200 [place] [address] Leoncio Xavier MD 200 [place] [address] 04/04/2023 2:00 PM EST Office Visit Family Practice 65 [facility] 293 [place] [phone] Jameel Reyna DO 293 [facility] [place] [address] Scheduled Procedures Name Priority Associated Diagnoses Date/Ti [...] this encounter Medical Devices Implanted Type Area Steam Shovel Oiler Device Identifier Shelf Expiration Date Model / Serial / Lot Port Pwr Mri Isp Profile - [id number] Implanted:Qty: 1 on 01/22/2019 by Bebeto Canseco DO at OR [facility] Right: Chest CR BARD : PERIPHERAL VASCULAR 02/10/2020 [id number] / / [id number] documented as of this encounter Advance Directives Latest Code Status [...] the patient have Health Care Power of Leveling Machine Operator? No Full Code 10/12/2016 3:15 PM 10/14/2016 6:57 PM Question Answer Comments Discussion of Advance Directives occurred with: Not Discussed Does the patient have a Living Will? No Does the patient have Health Care Power of Leveling Machine Operator? No Full Code 08/28/2016 7:34 AM 09/02/2016 8:09 PM Question Answer Comments Discussion of Advance Directives occurred with: Not Discussed Does the patient have a Living Will? No Does the patient have Health Care Power of Leveling Machine Operator? No Full Code 06/14/2013 8:04 PM 06/16/2013 7:32 PM This or annmarie reflects the patients wishes and were consensually agreed upon. Question Answer Comments Discussion of Advance Directives occurred with: Patient Does the patient have a Living Will? No Does the patient have Health Care Power of Leveling Machine Operator? No Care Teams Candy Polisher Relationship Specialty Start Date End Date Jameel Reyna DO [address] [place] [address] PCP - General Internal Medicine 03/15/22 documented as of this encounter
--- OUTSIDE RECORDS SUMMARY | 2023-03-15 06:09 | External Medical Summary ---
Author Name Unknown Address Unknown Organization [id number] [place] [address] [place] [address] Laboratory Report Ordering Provider Test Date Status ISHAAN MEDINA 03/10/2023 15:02:47 Final Observation Date Value Abnormality Reference (Units ) Status SYNC LEUKOCYTES IN BLOOD BY AUTOMATED COUNT 03/10/2023 15:02:47 5.37 4.00-10.80 (K/uL) Final Segs 03/10/2023 15:02:47 61.4 40.0-75.0 (%) Final Lymphs % 03/10/2023 15:02:47 20.3 18.0-42.0 (%) Final Monos 03/10/2023 15:02:47 16.2 Above high normal 1.0-11.0 (%) Final Eosinophils 03/10/2023 15:02:47 1.5 0.0-6.0 (%) Final Basos 03/10/2023 15:02:47 0.6 0.0-2.0 (%) Final Absolute Segs 03/10/2023 15:02:47 3.30 1.80-7.70 (K/uL) Final Lymphs, absolute 03/10/2023 15:02:47 1.09 1.00-4.80 (K/ul) Final Monos, Abs 03/10/2023 15:02:47 0.87 0.00-1.10 (K/uL) Final Eos, Abs 03/10/2023 15:02:47 0.08 0.00-0.70 (K/uL) Final Basos, Abs 03/10/2023 15:02:47 0.03 0.00-0.20 (K/uL) Final Performing Location [facility] [address] - [address] [place] [id number]
--- OUTSIDE RECORDS SUMMARY | 2023-03-15 06:09 | External Medical Summary ---
Author Name Unknown Address Unknown Organization [id number] [place] [address] - [address] [place] [id number] Laboratory Report Ordering Provider Test Date Status ISHAAN MEDINA 03/10/2023 15:02:47 Final Observation Date Value Abnormality Reference (Units ) Status BUN 03/10/2023 15:02:47 14 6-20 (mg/dL) Final Creatinine 03/10/2023 15:02:47 3.6 Above high normal 0.5-1.0 (mg/dL) Final Glomerular filtration rate/1.73 sq M.predicted [Volume Rate/Area] in Serum, Plasma or Blood by Creatinine-based formula (CKD-EPI) 03/10/2023 15:02:47 13 Below low normal >=60 (mL/min) Final eGFR is calculated based on the CKD-EPI 2020 equation SODIUM 03/10/2023 15:02:47 138 135-146 (m mol/L) Final Potassium 03/10/2023 15:02:47 3.7 3.5-5.1 (m mol/L) Final Cl 03/10/2023 15:02:47 93 Below low normal 98- 107 (mmol/L) Final CO2 03/10/2023 15:02:47 33 Above high normal 22 -32 (mmol/L) Final Anion gap 03/10/2023 15:02:47 12 7-15 (mmol /L) Final Glucose 03/10/2023 15:02:47 134 Above high normal 70 -120 (mg/dL) Final Albumin 03/10/2023 15:02:47 4.0 3.8-5.0 (g /dL) Final AST (Aspartate aminotransferase) 03/10/2023 15:02:47 15 10-35 (U/L) Fin al Alk Phos 03/10/2023 15:02:47 25 Below low normal 35- 130 (U/L) Final Bilirubin, Total 03/10/2023 15:02:47 0.5 <=1 .2 (mg/dL) Final Calcium 03/10/2023 15:02:47 8.6 8.4-10.2 ( mg/dL) Final Protein 03/10/2023 15:02:47 5.8 Below low normal 6.0 -8.3 (g/dL) Final ALT (Alanine aminotransferase) 03/10/2023 15:02:47 <5 Below low normal 10-35 (U/L) Final Performing Location [facility] [place] [facility] [facility] [address]
--- NOTE | 2023-03-15 06:49 | Magnetic Resonance Report ---
MRI OF THE BRAIN WITHOUT CONTRAST CLINICAL HISTORY: left facial droop and off balance COMPARISON STUDY: Head CT March 09, 2023. TECHNIQUE: Utilizing a 1.5 Claudia magnet and dedicated coil, multiplanar, multiecho imaging of the bra in was performed without IV contrast. FINDINGS: There are no foci of restricted diffusion to suggest acute infarct. No acute intracranial h emorrhage, midline shift or mass effect is present. Ventricular system is unremarkable. Basal cistern s are patent. Flow-voids for the major intracranial vessels are present. No intracranial masses are i dentified on unenhanced exam. Several small white matter T2 hyperintense foci suggest mild small vess el disease. Calvarial signal is normal. Trace fluid within the right mastoid air cells. No evidence f or sinusitis. No orbital abnormality on unenhanced exam. IMPRESSION: No acute intracranial findings. ACT 112: Negative or not required by law. Electronically signed by: Larry Atkinson M.D. 03/15/2023 6:47 AM
--- NOTE | 2023-03-15 08:45 | History & Physical Report ---
Date of Service March 15, 2023 Assessment & Plan (1) ESRD (end stage renal disease) on dialysis: (2) Hyperkalemia: (3) Anemia in chronic kidney disease: Plan: -Admit to [facility] -Normal dialysis session is MWF, patient missed session on 03/12, last session on 03/10, presented with creatinine of 10.41, BUN 74, potassium 5.8 -Nephrology consulted for dialysis session today -Was administered IV calcium gluconate and dextrose for hyperkalemia, recheck BMP now -Continue renal supplements -Patient does not appear to be volume overloaded at this time (4) Butt's palsy: Plan: -MRI of the brain was obtained due to dizziness, negative for acute strokelike symptoms -Involvment of the Left forehead, eye, lip -Patient has been on prednisone 60 mg daily and valtrex 500 mg daily since 03/09, she finishes the course today. -education should be provided to the patient that symptoms may be likely present for long period of time -PT/OT consults (5) Morbid obesity: Plan: -BMI of 32.3, diet and exercise to be encouraged throughout the hospital stay and on discharge -Chronic (6) Essential hypertension: Plan: - Cont home antihypertensive medications (7) HLD (hyperlipidemia): Plan: - Cont statin therapy DVT PPx: SCDs Lines: 2 PIV, AVF left antecubital space FEN/GI renal diet Code: Full code Likely renal hospital x 1 to 2 days, patient is from home, lives with , to receive dialysis session today. History of Present Illness Chief Complaint: Dizziness Primary Care Provider: Jameel Reyna, This is a 67 yo F w/ pMHx of ESRD (on HD M/W/Fr), failed renal transplant, HTN, HLP, COPD, pHTN, sleep apnea, GERD, GIST, hypothyroidism s/p thyroidectomy, migraine VACA, mood disorder and multiple abdominal surgeries. 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 She was started on a prednisone course at that time. It is scheduled to finish today. Patient states that she has been taking prednisone 60 mg at noon after her dialysis sessions daily., at that time she had a CT of the head which was negative for acute intracranial findings. She states that on 03/12 she was supposed to have dialysis however due to not feeling well, having some nausea and throwing up, she did not go. She denies any abdominal pain, diarrhea or constipation at this time. Patient has returned again today to the ER with increased dizziness, reports "jumping muscles in her arms" which are nonpainful, and not feeling quite well. She underwent a brain MRI earlier today and 03/15/2023 which was negative for any acute intracranial findings. There is mild small vessel disease and trace fluid within the right mastoid air cells, no evidence for sinusitis. Patient is found to be hyperkalemic 5.8, and was treated with IV calcium gluconate and dextrose, her creatinine is 10.41, BUN 74. Patient will be admitted for dialysis today as well as hyperkalemia. Allergies Allergy/AdvReac Type Severity Reaction Status Date / Time levofloxacin AdvReac Severe C-DIFF Verified 03/15/23 02:53 Home Medications Medication Instructions Recorded Confirmed Type aspirin 81 mg chewable tablet 81 mg PO QAM 04/23/18 03/15/23 History fluticasone propionate 50 1 spray intranasal DAILY PRN 04/23/18 03/15/23 History mcg/actuation nasal Allergy Symptoms spray,suspension (Flonase Allergy Relief) gabapentin 100 mg capsule 100 mg PO TID 04/23/18 03/15/23 History omeprazole 40 mg capsule,delayed 40 mg PO QAM 04/23/18 03/15/23 History release magnesium oxide 400 mg PO QAM 03/08/22 03/15/23 History amlodipine 5 mg tablet 5 mg PO BID 07/21/22 03/15/23 History levothyroxine 100 mcg tablet 100 mcg PO QAM 07/21/22 03/15/23 History metoprolol tartrate 25 mg tablet 37.5 mg PO BID 07/21/22 03/15/23 History ondansetron HCl 8 mg tablet 8 mg PO TID PRN PRIOR TO 07/21/22 03/15/23 History CHEMOTHERAPY MEDS prochlorperazine maleate 10 mg 10 mg PO Q6H PRN NAUSEA/VOMITING 07/21/22 03/15/23 History tablet (Compazine) triamcinolone acetonide 0.1 % 1 applic topical Q3D PRN Skin 07/21/22 03/15/23 History topical cream Irritation vitamin B complex and vitamin C 1 cap PO DAILY 07/21/22 03/15/23 History no.20-folic acid 1 mg capsule (Lucas Caps) oxycodone-acetaminophen 2.5 mg-325 1 tab PO Q8H PRN pain,severe 09/12/22 03/15/23 History mg tablet imatinib 100 mg tablet (Gleevec) 200 mg PO QPM 09/22/22 03/15/23 History calcitriol 0.5 mcg capsule 0.5 mcg PO QAM 10/20/22 03/15/23 History calcium acetate(phosphat bind) 667 1,334 mg PO TID 10/20/22 03/15/23 History mg capsule docusate sodium 100 mg capsule 100 mg PO BID 10/20/22 03/15/23 History (Stool Softener) hydralazine 50 mg tablet 50 mg PO BID 10/20/22 03/15/23 History polyethylene glycol 3350 17 17 g PO BID 10/20/22 03/15/23 History gram/dose oral powder (Miralax) carboxymethylcellulose sodium 1 drp ophthalmic (eye) 6XD PRN dry 03/09/23 03/15/23 Rx (Refresh Contacts eye drops) eye(s) #12 mL prednisone 20 mg tablet 60 mg (3 x 20 mg) PO DAILY 7 days 03/09/23 03/15/23 Rx #21 tabs valacyclovir 500 mg tablet 500 mg PO DAILY #7 tabs 03/09/23 03/15/23 Rx (Valtrex) white petrolatum-mineral oil 56.8 1 applic ophthalmic (eye) HS PRN 03/09/23 03/15/23 Rx %-42.5 % eye ointment (Refresh dry eyes 10 days #3.5 grams Lacri-Lube) Past Med/Surg History Medical History Mediastinal mass ongoing work-up with [facility] and heme/onc Hypocalcemia Secondary hyperparathyroidism Neck pain h/o UE paresthesias; pt states neck pain and upper extremity abnormal symptoms>fully resolved Thyroid nodule s/p thyroidectomy COVID-19 hx-01/29/22-not hospitalized-symptoms fully resolved Pulmonary hypertension COPD (chronic obstructive pulmonary disease) stable per pt, no longer using supplemental oxygen-states home pulse ox readings are consistently 97% or greater-pt states provider is aware Abnormal stress test 01/2021 (reversible anterior and basal lateral defect consistent with ischemia vs soft tissue attenuation artifact) per [facility] records, plan for medical management and consideration for DSE at 03/2021 appt; final determination per [facility] is recommendation for diagnostic cardiac catheterization not yet scheduled by patient; now advised risk > benefit per [facility] Limb alert care status left arm Port-A-Cath in place has not used in a long time 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 At least 1 of the peritoneal dialysis catheters had to be removed because of peritonitis..." Failed kidney transplant 2016 Palpitations AV fistula left upper arm (functioning), also one to left wrist, but does not function properly Chronic back pain GERD (gastroesophageal reflux disease) controlled, stable per pt Migraine Sleep apnea severe per [facility] records, no device currently > has apt soon to see about getting back on device Hypothyroidism s/p thyroidectomy at [facility] 06/28/22 Anemia in chronic kidney disease HLD (hyperlipidemia) HTN (hypertension) controlled, stable per pt ESRD (end stage renal disease) on dialysis MWF at [facility] in [place] Surgical History Hx of total thyroidectomy 06/28/22, [facility]>3 1/2 of parathyroid removed, also removed nodules that were "non cancerous" History of surgery hx perm cath insertion & removal History of appendectomy H/O cystoscopy History of laparoscopy History of bilateral tubal ligation History of kidney transplant 08/28/2016 @ [facility] (right side) functions at only 10%--d/t ESRD > follows with dr at [facility] History of cholecystectomy History of section x1 History of colonoscopy History of esophagogastroduodenoscopy (EGD) History of tooth extraction History of wisdom tooth extraction History of tonsillectomy and adenoidectomy Family History Grandmother (Paternal) Family history of diabetes mellitus Grandmother (Maternal) Family history of diabetes mellitus Family hx of colon cancer Mother Family hx of colon cancer Other No family history of adverse response to anesthesia Social History Smoking Status: Never smoker Tobacco Type: Cigarettes Second Hand Exposure: No; Do You Dip or Chew Tobacco: No; Hx Alcohol Use: No Hx Substance Use: Yes Preferred Language: [place] Islander Communication Ability: Effective Child Care Cook Required: No Beliefs That Will Affect Care: None marital status: Current Living Situation: Spouse Current Living Situation Comment: lives at home w spouse How many Children do You have: 1 Feels Safe at Home: Yes Assistive Devices: Glasses Review of Systems Review of Systems: Constitutional: No fever, sweats or chills Eyes: No diplopia, no worsening or blurred vision, R sided eye, forehead and lip involvement of [place] Palsy ENT: normal hearing, no trouble swallowing Respiratory: No cough, sputum, dyspnea at rest or on exertion Cardiovascular: No chest pain, tightness or palpitations Abdomen: As per HPI, currently No pain, nausea, vomiting, diarrhea or constipation Musculoskeletal: No joint pain, calf pain, swelling Neurologic: + generalized weakness, no numbness/tingling, +balance problems, does not use device for ambulation assistance Psychiatric: No anxiety or depression Skin: No rash or itch Physical Exam Physical Exam: General: awake, alert, no apparent distress Head: Normocephalic, atraumatic, + bells palsy involving left forehead, left eye and left lip droop ENT: PERRL, EOMI, no pharyngeal exudate, mucous membranes moist Chest: Clear to auscultation, on room air, no adventitious breath sounds Cardiac: Regular rate and rhythm, no murmur, no JVD, normal peripheral pulses, good capillary refill Abdominal: NABS x 4 quadrants, soft, nondistended, nontender to palpation, no rebound or guarding Extremities: Left antecubital AVF with thrill and bruit, otherwise normal inspection, no peripheral edema or erythema, calfs nontender to palpation Psych: Flat mood and affect Neuro: AAO x 3, strength intact bilaterally and rated 5/5, no motor deficits, speech is clear, no peripheral sensory deficits Results & Data Results & Data Vital Signs (Past 12 Hours) Vital Signs Temp Pulse Pulse Resp BP BP Pulse Ox 03/15/23 06:30 62 18 143/76 H 92 03/15/23 06:09 62 03/15/23 04:48 64 18 113/86 94 03/15/23 02:50 97 03/15/23 02:49 97 03/15/23 02:40 125 H 14 98 03/15/23 02:36 140 H 15 96 03/15/23 02:36 63 03/15/23 02:22 36.1 C L 63 14 148/90 H 97 O2 Del Method O2 Flow Rate 03/15/23 06:30 Room Air 03/15/23 06:09 03/15/23 04:48 Room Air 03/15/23 02:50 Room Air 03/15/23 02:49 Room Air 0 03/15/23 02:40 03/15/23 02:36 03/15/23 02:36 03/15/23 02:22 Room Air Laboratory Results 03/15/23 03/15/23 03/15/23 08:10 02:45 00:40 WBC 6.96 RBC 3.53 L Hgb 11.2 L Hct 34.0 L MCV 96.3 MCH 31.7 MCHC 32.9 RDW Std Deviation 46.5 H RDW Coeff of Moriah 13.4 Plt Count 180 MPV 8.9 L Immature Gran % (Auto) 0.9 Neut % (Auto) 80.8 Lymph % (Auto) 10.2 Ponce % (Auto) 8.0 Eos % (Auto) 0.0 Baso % (Auto) 0.1 Neut # (Auto) 5.62 Lymph # (Auto) 0.71 L Ponce # (Auto) 0.56 Eos # (Auto) 0.00 Baso # (Auto) 0.01 Immature Gran # (Auto) 0.06 Sodium 132 L Potassium 5.8 H Chloride 91 L Carbon Dioxide 28 Anion Gap 13 H BUN 74 H Creatinine 10.41 H* Est Cr Clr Drug Dosing 5.9 Est GFR ( Amer) 4.0 Est GFR (Non-Af Amer) 3.5 BUN/Creatinine Ratio 7.1 L Glucose 127 H Calcium 8.5 L Total Bilirubin 0.5 AST 9 L ALT 5 L Alkaline Phosphatase 23 L Total Protein 5.9 L Albumin 3.8 Globulin 2.1 L Albumin/Globulin Ratio 1.8 SARS-CoV-2, RNA, NAAT NEGATIVE Diagnostic Findings Brain MRI 03/15/23 02:46 MRI OF THE BRAIN WITHOUT CONTRAST CLINICAL HISTORY: left facial droop and off balance COMPARISON STUDY: Head CT March 09, 2023. TECHNIQUE: Utilizing a 1.5 Claudia magnet and dedicated coil, multiplanar, multiecho imaging of the brain was performed without IV contrast. FINDINGS: There are no foci of restricted diffusion to suggest acute infarct. No acute intracranial hemorrhage, midline shift or mass effect is present. Ventricular system is unremarkable. Basal cisterns are patent. Flow-voids for the major intracranial vessels are present. No intracranial masses are identified on unenhanced exam. Several small white matter T2 hyperintense foci suggest mild small vessel disease. Calvarial signal is normal. Trace fluid within the right mastoid air cells. No evidence for sinusitis. No orbital abnormality on unenhanced exam. IMPRESSION: No acute intracranial findings. ACT 112: Negative or not required by law. Electronically signed by: Larry Atkinson M.D. 03/15/2023 6:47 AM Code Status & VTE Plan Code Status Full code - discussed with pt at bedside Supervising Physician Co-Signing Physician Notes I have seen and examined the patient and have discussed the case with the provider above. I agree with the assessment and plan as stated. 67-year-old female on hemodialysis presents with hyperkalemia secondary to missed dialysis session. She reported to the ER with increased dizziness jumping muscles in her arm and not quite feeling well. Creatinine is 10. She was recently assessed in the ER and treated for Butt's palsy with some improvement. She will complete her prednisone and acyclovir course today. Potassium is 5.8 and she was treated acutely in the ER. MRI brain was negative for acute findings. She denies any symptoms of dry eyes or irritated eyes on her left side, although conjunctivodoes appear irritated. Left eye is watering to some extent. There is clear right-sided facial droop with forehead involvement. She cannot smile on the right side, she has nasolabial flattening on this side and cannot lift her eyebrows on this side. She is other burton doing well and reports no other symptoms, stating she feels as though her palsy is "lightening up." EOMI, PERRLA, no nystagmus is present with EOM. No gross focal neuro deficits. She is able to situp independently in the bed. Labs as noted above. Nephrology has been contacted for acute dialysis today for definitive management of her hyperkalemia. DO Terence
--- NOTE | 2023-03-15 09:53 | Nephrology Consultation ---
Date of Consultation March 15, 2023 Assessment & Plan (1) Acute hyperkalemia: presenting K 5.8, temporized w/ IV insulin. >definitive tx is dialysis >agree w/ dialysis diet (2) ESRD (end stage renal disease) on dialysis: HD today 3.5 hrs via AVF on 2K bath w/ up to 2L UF keeping sbp > 110 -given fasciculations, malaise, ensure phosphorus and mag are acceptable -next HD on 03/17 or as clinical needs dictate -continue calcitriol and calcium acetate per OP regimen History of Present Illness Reason for Consultation: ESRD, missed dialysis Requesting Physician: Dr Pratt Attending Physician: Dr Pratt History of Present Illness 67 y/o F whom I'm asked to see for dialysis needs was admitted this AM for re- evaluation of worsening malaise, dizziness, fasciculations in her arms, as well as hyperkalemia after missing dialysis on 03/12 d/t N/V and high sodium diet w/ holiday. PMH includes ESRD (on HD M/W/Fr at [facility] via AVF), failed renal transplant, HTN, COPD, pulmonary HTN, sleep apnea, GERD, GIST tumor on Gleevec therapy, hypothyroidism s/p thyroidectomy, s/p parathyroidectomy July 2022 w/ subsequent admission here for symptomatic hypocalcemia, migraine VACA, mood disorder and multiple abdominal surgeries. Has significantly dilated CBD on summer 2022 eval s/p EUS/ERCP. Also recently diagnosed w/ Butt's palsy on 03/09 after presenting here w/ L sided facial droop, treated w/ short course of 60 mg daily prednisone scheduled to end today. Head CT 03/09 and brain MRI today have not shown acute intracranial findings. Her presenting K was 5.8, for which she received IV insulin/dextrose and calcium gluconate. 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 feels the prednisone has improved the palsy. no chest pain, no palpitations. Allergies Allergy/AdvReac Type Severity Reaction Status Date / Time levofloxacin AdvReac Severe C-DIFF Verified 03/15/23 02:53 Home Medications Medication Instructions Recorded Confirmed Type aspirin 81 mg chewable tablet 81 mg PO QAM 04/23/18 03/15/23 History fluticasone propionate 50 1 spray intranasal DAILY PRN 04/23/18 03/15/23 History mcg/actuation nasal Allergy Symptoms spray,suspension (Flonase Allergy Relief) gabapentin 100 mg capsule 100 mg PO TID 04/23/18 03/15/23 History omeprazole 40 mg capsule,delayed 40 mg PO QAM 04/23/18 03/15/23 History release magnesium oxide 400 mg PO QAM 03/08/22 03/15/23 History amlodipine 5 mg tablet 5 mg PO BID 07/21/22 03/15/23 History levothyroxine 100 mcg tablet 100 mcg PO QAM 07/21/22 03/15/23 History metoprolol tartrate 25 mg tablet 37.5 mg PO BID 07/21/22 03/15/23 History ondansetron HCl 8 mg tablet 8 mg PO TID PRN PRIOR TO 07/21/22 03/15/23 History CHEMOTHERAPY MEDS prochlorperazine maleate 10 mg 10 mg PO Q6H PRN NAUSEA/VOMITING 07/21/22 03/15/23 History tablet (Compazine) triamcinolone acetonide 0.1 % 1 applic topical Q3D PRN Skin 07/21/22 03/15/23 History topical cream Irritation vitamin B complex and vitamin C 1 cap PO DAILY 07/21/22 03/15/23 History no.20-folic acid 1 mg capsule (Evangeline Caps) oxycodone-acetaminophen 2.5 mg-325 1 tab PO Q8H PRN pain,severe 09/12/22 03/15/23 History mg tablet imatinib 100 mg tablet (Gleevec) 200 mg PO QPM 09/22/22 03/15/23 History calcitriol 0.5 mcg capsule 0.5 mcg PO QAM 10/20/22 03/15/23 History calcium acetate(phosphat bind) 667 1,334 mg PO TID 10/20/22 03/15/23 History mg capsule docusate sodium 100 mg capsule 100 mg PO BID 10/20/22 03/15/23 History (Stool Softener) hydralazine 50 mg tablet 50 mg PO BID 10/20/22 03/15/23 History polyethylene glycol 3350 17 17 g PO BID 10/20/22 03/15/23 History gram/dose oral powder (Miralax) carboxymethylcellulose sodium 1 drp ophthalmic (eye) 6XD PRN dry 03/09/23 03/15/23 Rx (Refresh Contacts eye drops) eye(s) #12 mL prednisone 20 mg tablet 60 mg (3 x 20 mg) PO DAILY 7 days 03/09/23 03/15/23 Rx #21 tabs valacyclovir 500 mg tablet 500 mg PO DAILY #7 tabs 03/09/23 03/15/23 Rx (Valtrex) white petrolatum-mineral oil 56.8 1 applic ophthalmic (eye) HS PRN 03/09/23 03/15/23 Rx %-42.5 % eye ointment (Refresh dry eyes 10 days #3.5 grams Lacri-Lube) Patient History Medical History Mediastinal mass ongoing work-up with [facility] and heme/onc Hypocalcemia Secondary hyperparathyroidism Neck pain h/o UE paresthesias; pt states neck pain and upper extremity abnormal symptoms>fully resolved Thyroid nodule s/p thyroidectomy COVID-19 hx-01/29/22-not hospitalized-symptoms fully resolved Pulmonary hypertension COPD (chronic obstructive pulmonary disease) stable per pt, no longer using supplemental oxygen-states home pulse ox readings are consistently 97% or greater-pt states provider is aware Abnormal stress test 01/2021 (reversible anterior and basal lateral defect consistent with ischemia vs soft tissue attenuation artifact) per [facility] records, plan for medical management and consideration for DSE at 03/2021 appt; final determination per [facility] is recommendation for diagnostic cardiac catheterization not yet scheduled by patient; now advised risk > benefit per [facility] Limb alert care status left arm Port-A-Cath in place has not used in a long time 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 At least 1 of the peritoneal dialysis catheters had to be removed because of peritonitis..." Failed kidney transplant 2017 Palpitations AV fistula left upper arm (functioning), also one to left wrist, but does not function properly Chronic back pain GERD (gastroesophageal reflux disease) controlled, stable per pt Migraine Sleep apnea severe per [facility] records, no device currently > has apt soon to see about getting back on device Hypothyroidism s/p thyroidectomy at [facility] 06/28/22 Anemia in chronic kidney disease HLD (hyperlipidemia) HTN (hypertension) controlled, stable per pt ESRD (end stage renal disease) on dialysis MWF at [facility] in [place] Surgical History Hx of total thyroidectomy 06/28/22, [facility]>3 1/2 of parathyroid removed, also removed nodules that were "non cancerous" History of surgery hx perm cath insertion & removal History of appendectomy H/O cystoscopy History of laparoscopy History of bilateral tubal ligation History of kidney transplant 08/28/2016 @ [facility] (right side) functions at only 10%--d/t ESRD > follows with dr at [facility] History of cholecystectomy History of section x1 History of colonoscopy History of esophagogastroduodenoscopy (EGD) History of tooth extraction History of wisdom tooth extraction History of tonsillectomy and adenoidectomy Family History Grandmother (Paternal) Family history of diabetes mellitus Grandmother (Maternal) Family history of diabetes mellitus Family hx of colon cancer Mother Family hx of colon cancer Other No family history of adverse response to anesthesia Social History Smoking Status: Never smoker Tobacco Type: Cigarettes Second Hand Exposure: No; Do You Dip or Chew Tobacco: No; Hx Alcohol Use: No Hx Substance Use: Yes Preferred Language: Tajik Communication Ability: Effective Chief Contract Officer Required: No Beliefs That Will Affect Care: None marital status: Current Living Situation: Spouse Current Living Situation Comment: lives at home w spouse How many Children do You have: 1 Feels Safe at Home: Yes Assistive Devices: Glasses Review of Systems 2 Review of Systems: All systems reviewed & are unremarkable except as noted in HPI & below Physical Exam 2 Constitutional: well developed and well nourished Eyes: EOM intact bilaterally ENMT: Ears: no external ear abnormality Nose: no external nose abnormality Mouth: + dry oral mucous membranes Neck: no nuchal rigidity Respiratory: normal respiratory effort Auscultation: + diminished lung sounds Cardiovascular: Rate/Rhythm: regular rate and regular rhythm Extremities: + AV fistula; no edema Gastrointestinal (Abdomen): Inspection/Auscultation: normal bowel sounds P ercussion/Palpation: abdomen soft; abdomen nontender Musculoskeletal: Extremities: strength 5/5 throughout Skin: no rashes, warm and dry Neurologic: gregory, fluent speech, mild BLUE intention tremor Results & Data Vital Signs (Past 12 Hours) Vital Signs Temp Pulse Pulse Resp BP BP Pulse Ox 03/15/23 06:30 62 18 143/76 H 92 03/15/23 06:09 62 03/15/23 04:48 64 18 113/86 94 03/15/23 02:50 97 03/15/23 02:49 97 03/15/23 02:40 125 H 14 98 03/15/23 02:36 140 H 15 96 03/15/23 02:36 63 03/15/23 02:22 36.1 C L 63 14 148/90 H 97 O2 Del Method O2 Flow Rate 03/15/23 06:30 Room Air 03/15/23 06:09 03/15/23 04:48 Room Air 03/15/23 02:50 Room Air 03/15/23 02:49 Room Air 0 03/15/23 02:40 03/15/23 02:36 03/15/23 02:36 03/15/23 02:22 Room Air Laboratory Results 03/15/23 02:45 03/15/23 00:40 Diagnostic Findings brain MRI today no acute intracranial findings. There is mild small vessel disease and trace fluid within the right mastoid air cells, no evidence for sinusitis
[2023-03-15] MEDS ORDERED: SODIUM CHLORIDE 0.9% 1,000 ML IV PRN (10:18)
[2023-03-15] MEDS ORDERED: HEPARIN SOD (PORCINE) 1000 UNIT/ML IV ONE (10:20)
[2023-03-15] MEDS ORDERED: LEVOTHYROXINE SODIUM 100 MCG TABLET PO SCH (11:01)
[2023-03-15] MEDS ORDERED: GABAPENTIN 100 MG CAP PO SCH ×2 (11:01→11:30)
[2023-03-15] MEDS ORDERED: amLODIPine BESYLATE 5 MG TAB PO SCH (11:01)
[2023-03-15] MEDS ORDERED: CALCITRIOL 0.25 MCG CAPSULE PO SCH (11:01)
[2023-03-15] MEDS ORDERED: PROCHLORPERAZINE MALEATE 10 MG TAB PO PRN (11:01)
[2023-03-15] MEDS ORDERED: ASPIRIN 81 MG CHEW PO SCH (11:01)
[2023-03-15] MEDS ORDERED: METOPROLOL TARTRATE 25 MG TAB PO SCH (11:01)
[2023-03-15] MEDS ORDERED: NEPHROCAPS PO SCH (11:01)
[2023-03-15] MEDS ORDERED: FLUTICASONE PROPIONATE NA SPR 16 GM BTL PRN (11:01)
[2023-03-15] MEDS ORDERED: DOCUSATE SODIUM 100 MG CAP PO SCH (11:01)
[2023-03-15] MEDS ORDERED: ACETAMINOPHEN 325 MG TAB PO PRN (11:01)
[2023-03-15] MEDS ORDERED: hydrALAZINE TAB 50 MG TAB PO SCH (11:01)
--- NOTE | 2023-03-15 11:12 | Electrocardiogram Report ---
Test Reason : Blood Pressure : / mmHG Vent. Rate : 120 BPM Atrial Rate : 120 BPM P-R Int : 000 ms QRS Dur : 078 ms QT Int : 424 ms P-R-T Axes : 066 -13 040 degrees QTc Int : 599 ms Normal sinus rhythm Low voltage QRS Inferior infarct , age undetermined Abnormal ECG When compared with ECG of 09-MAR-2023 11:52, Vent. rate has increased BY 50 BPM Minimal criteria for Anterior infarct are no longer Present Nonspecific T wave abnormality has replaced inverted T waves in Anterior leads Confirmed by Tyler Boss [id number]) on 03/15/2023 11:11:33 AM Referred By: REFERRED SELF Confirmed By:Tyler Boss
[2023-03-15] MEDS ORDERED: MAGNESIUM OXIDE 400 MG TAB PO SCH (11:15)
[2023-03-15] MEDS ORDERED: ARTIFICIAL TEARS OP PRN (11:16)
[2023-03-15] MEDS ORDERED: ONDANSETRON 4 MG OD TAB PO PRN (11:16)
[2023-03-15] MEDS ORDERED: ARTIFICIAL TEARS OP OINT 3.5 GM TUBE OP PRN (11:17)
[2023-03-15] MEDS ORDERED: PANTOprazole 40 MG TAB PO SCH (11:30)
[2023-03-15 11:44] LABS: Magnesium 2.4 mg/dl (1.7-2.4); Phosphorus 6.7 mg/dl (2.5-4.9)
[2023-03-15 12:29] LABS: BUN Creatinine Ratio 7.8 (10-20); Calcium 8.4 mg/dl (8.6-10.3); Creatinine Clr Calc Pharmacy 5.8 ml/min; Est GFR (Non-African American) 3.4 ml/min; Potassium 5.2 mmol/L (3.5-5.1)
[2023-03-15] MEDS: HEPARIN SOD (PORCINE) 1000 UNIT/ML IV SCH ×2 (13:23→16:08)
--- NOTE | 2023-03-15 14:37 | Dialysis Progress Note ---
Date of Service March 15, 2023 Assessment & Plan (1) Acute hyperkalemia: Plan: presenting K 5.8, temporized w/ IV insulin. >definitive tx is dialysis >agree w/ dialysis diet (2) ESRD (end stage renal disease) on dialysis: Plan: HD today 3.5 hrs via AVF on 2K bath w/ up to 2L UF keeping sbp > 110 -given fasciculations, malaise, ensure phosphorus and mag are acceptable -next HD on 03/17 or as clinical needs dictate > this can be as IP or OP -continue calcitriol and calcium acetate per OP regimen >>will increase UF target by 500 mL to 2.5 L since she is tolerating treatment >no clinically significant anemia so no KELSEY needed >hyperphosphatemia addressed w/ dialysis, dialysis diet, binders Admission and Anticipated Discharge Date Admission Date: March 15, 2023 Subjective seen on dialysis. tolerating tx well; no cramps today or historically. some sob, ongiong BLUE weakness which is mild Review of Systems Review of Systems: All systems reviewed & are unremarkable except as noted in Subjective Physical Exam Constitutional: well developed and well nourished Eyes: EOM intact bilaterally ENMT: Ears: no external ear abnormality Nose: no external nose abnormality Mouth: + dry oral mucous membranes Neck: no nuchal rigidity Respiratory: normal respiratory effort Auscultation: + diminished lung sounds Cardiovascular: Rate/Rhythm: regular rate and regular rhythm Extremities: + AV fistula; no edema Gastrointestinal (Abdomen): Inspection/Auscultation: normal bowel sounds Percussion/Palpation: abdomen soft; abdomen nontender Musculoskeletal: Extremities: strength 5/5 throughout Skin: no rashes, warm and dry Results & Data Vital Signs (Past 12 Hours) Vital Signs Temp Pulse Pulse Pulse Resp BP BP 03/15/23 13:00 61 132/83 03/15/23 12:30 64 141/87 H 03/15/23 12:13 62 152/86 H 03/15/23 12:07 36.7 C 67 03/15/23 10:23 64 03/15/23 10:00 68 16 150/95 H 03/15/23 09:00 74 13 152/90 H 03/15/23 07:00 61 16 146/82 H 03/15/23 06:30 62 18 143/76 H 03/15/23 06:09 62 03/15/23 04:48 64 18 113/86 03/15/23 02:50 03/15/23 02:49 03/15/23 02:40 125 H 14 03/15/23 02:36 140 H 15 03/15/23 02:36 63 Pulse Ox O2 Del Method O2 Flow Rate 03/15/23 13:00 03/15/23 12:30 03/15/23 12:13 03/15/23 12:07 03/15/23 10:23 03/15/23 10:00 93 03/15/23 09:00 93 03/15/23 07:00 93 03/15/23 06:30 92 Room Air 03/15/23 06:09 03/15/23 04:48 94 Room Air 03/15/23 02:50 97 Room Air 03/15/23 02:49 97 Room Air 0 03/15/23 02:40 98 03/15/23 02:36 96 03/15/23 02:36 Laboratory Results reviewed already plus mag wnl and phos elevated at 6.7
[2023-03-15] MEDS ORDERED: valACYclovir HCL 500 MG TABLET PO SCH (16:00)
[2023-03-15] MEDS: POLYETHYLENE (MIRALAX) 17 GM PACK PO SCH ×2 (17:02→20:51)
[2023-03-15] MEDS: CALCIUM ACETATE 667 MG CAP/TAB PO SCH ×3 (17:02→20:51)
[2023-03-15] MEDS: predniSONE 20 MG TAB PO SCH ×2 (19:20→20:51)
[2023-03-15] MEDS: hydrALAZINE TAB 50 MG TAB PO SCH (20:52)
[2023-03-15] MEDS: HYDROCODONE/ACETAMOPHEN 5/325MG TAB PO PRN (20:52)
[2023-03-15] MEDS ORDERED: valACYclovir HCL 500 MG TABLET PO ONE (21:04)
[2023-03-15] MEDS ORDERED: CALCIUM CARBONATE 500 MG CHEWABLE TAB PO PRN (23:24)
[2023-03-16] MEDS ORDERED: LORazepam 0.5 MG TAB PO STA (00:06)
[2023-03-16 07:34] LABS: BUN Creatinine Ratio 6.2 (10-20); Calcium 9.1 mg/dl (8.6-10.3); Creatinine Clr Calc Pharmacy 8.6 ml/min; Est GFR (African American) 6.4 ml/min; Est GFR (Non-African American) 5.5 ml/min; Hematocrit (blood only) 34.3 % (37.0-47.0); Hemoglobin 11.8 g/dl (12.0-16.0); Mean Corpuscular Hemoglobin 32.3 pg (25.0-34.0); Mean Corpuscular Hgb Conc 34.4 g/dL (32.0-36.0); Mean Platelet Volume 8.7 fL (9.4-12.4); Platelet Count 155 K/uL (130-400); RDW Coefficient of Variation 13.4 % (11.5-14.5); RDW Standard Deviation 45.9 fL (36.4-46.3); Red Blood Count 3.65 M/uL (4.20-5.40); White Blood Count 4.79 K/ul (4.8-10.8)
[2023-03-16] MEDS: PANTOprazole 40 MG TAB PO SCH (07:54)
[2023-03-16] MEDS: LEVOTHYROXINE SODIUM 100 MCG TABLET PO SCH (07:54)
[2023-03-16] MEDS: CALCIUM ACETATE 667 MG CAP/TAB PO SCH ×3 (08:26→19:25)
[2023-03-16] MEDS: POLYETHYLENE (MIRALAX) 17 GM PACK PO SCH ×2 (08:26→19:32)
[2023-03-16] MEDS: NEPHROCAPS PO SCH (08:27)
[2023-03-16] MEDS: ASPIRIN 81 MG CHEW PO SCH (08:27)
[2023-03-16] MEDS: hydrALAZINE TAB 50 MG TAB PO SCH ×2 (08:27→19:26)
[2023-03-16] MEDS: amLODIPine BESYLATE 5 MG TAB PO SCH ×2 (08:27→19:25)
[2023-03-16] MEDS: MAGNESIUM OXIDE 400 MG TAB PO SCH (08:27)
[2023-03-16] MEDS: CALCITRIOL 0.25 MCG CAPSULE PO SCH (08:27)
[2023-03-16] MEDS: DOCUSATE SODIUM 100 MG CAP PO SCH ×2 (08:28→19:32)
[2023-03-16] MEDS: METOPROLOL TARTRATE 25 MG TAB PO SCH ×2 (08:28→19:25)
[2023-03-16] MEDS ORDERED: GABAPENTIN 100 MG CAP PO SCH (09:00)
[2023-03-16] MEDS ORDERED: SODIUM CHLORIDE 0.9% 1,000 ML IV PRN (11:03)
--- NOTE | 2023-03-16 11:07 | Nephrology Progress Note ---
Date of Service March 16, 2023 Assessment & Plan Admission and Anticipated Discharge Date Admission Date: March 15, 2023 Subjective Assessment & Plan (1) Acute hyperkalemia: Plan: K is 6 even after dialysis yesterday. ? cause. will do dialysis again today (2) ESRD (end stage renal disease) on dialysis: Plan: HD today for 4 hrs via AVF on 1K bath for 2 hrs and then 2 K bath for 2 hrs. w/ up to 3L UF keeping sbp > 110. Plan for next HD will be Monday and then Monday Also add Veltassa or Lokelma Subjective She had dialysis yesterday fo3 3.5 hrs and still has high K of 6 today. NO issues with dialysis yesterday. Review of Systems Review of Systems: All systems reviewed & are unremarkable except as noted in Subjective Physical Exam Constitutional: well developed and well nourished Eyes: EOM intact bilaterally ENMT: Ears: no external ear abnormality Nose: no external nose abnormality Mouth: + dry oral mucous membranes Neck: no nuchal rigidity Respiratory: normal respiratory effort Auscultation: + diminished lung sounds Cardiovascular: Rate/Rhythm: regular rate and regular rhythm Extremities: + AV fistula; no edema Gastrointestinal (Abdomen): Inspection/Auscultation: normal bowel sounds Percussion/Palpation: abdomen soft; abdomen nontender Musculoskeletal: Extremities: strength 5/5 throughout Skin: no rashes, warm and dry Results & Data Vital Signs (Past 12 Hours) Vital Signs Temp Pulse Resp BP Pulse Ox O2 Del Method 03/16/23 08:03 36.5 C 96 H 16 172/90 H 95 Room Air
[2023-03-16] MEDS: GABAPENTIN 100 MG CAP PO SCH ×2 (12:37→19:24)
--- NOTE | 2023-03-16 13:39 | Electrocardiogram Report ---
Test Reason : Blood Pressure : / mmHG Vent. Rate : 126 BPM Atrial Rate : 126 BPM P-R Int : 170 ms QRS Dur : 080 ms QT Int : 328 ms P-R-T Axes : 055 -10 030 degrees QTc Int : 475 ms Normal sinus rhythm Low voltage QRS Possible Anterior infarct , age undetermined Nonspecific T wave abnormality Abnormal ECG When compared with ECG of 15-MAR-2023 02:47, Borderline criteria for Anterior infarct are now Present Nonspecific T wave abnormality, worse in Anterior leads Confirmed by Tyler Boss ([id number]) on 03/16/2023 1:39:34 PM Referred By: REFERRED SELF Confirmed By:Tyler Boss
--- NOTE | 2023-03-16 14:26 | Electrocardiogram Report ---
Test Reason : Blood Pressure : / mmHG Vent. Rate : 081 BPM Atrial Rate : 081 BPM P-R Int : 166 ms QRS Dur : 102 ms QT Int : 404 ms P-R-T Axes : 057 -20 043 degrees QTc Int : 469 ms Normal sinus rhythm Low voltage QRS Inferior infarct , age undetermined Abnormal ECG When compared with ECG of 15-MAR-2023 05:14, (unconfirmed) Premature ventricular complexes are no longer Present Vent. rate has decreased BY 45 BPM Questionable change in QRS duration Borderline criteria for Anterior infarct are no longer Present Borderline criteria for Anterolateral infarct are no longer Present Confirmed by Tyler Boss ([id number]) on 03/16/2023 2:26:12 PM Referred By: REFERRED SELF Confirmed By:Tyler Boss
--- NOTE | 2023-03-16 15:31 | Hospitalist Progress Note ---
Date of Service March 16, 2023 Assessment & Plan (1) Butt's palsy: Plan: -Presented on 09 March with left-sided facial droop and was thought to be due to Butt's palsy and started on prednisone -MRI of the brain was obtained due to dizziness, negative for acute strokelike symptoms -Involvment of the Left forehead, eye, lip -Patient has been on prednisone 60 mg daily and valtrex 500 mg daily since 03/09, she finishes the course today. -PT/OT consults -Clinically much better facial asymmetry persist -Incidental finding of hyperkalemia as below (2) ESRD (end stage renal disease) on dialysis: Plan: Patient missed session on 03/12, last session on 03/10, presented with creatinine of 10.41, BUN 74, potassium 5.8Normal dialysis session is MWF, -Nephrology consulted for dialysis session today -Was administered IV calcium gluconate and dextrose for hyperkalemia, recheck BMP now -Continue renal supplements -Patient does not appear to be volume overloaded at this time -Has had dialysis on 03/15/2023 -Potassium noted to be high at 6.0 today and will have hemodialysis again today -Monitor PRP likely discharge tomorrow (3) Hyperkalemia: Plan: As above (4) Anemia in chronic kidney disease: Plan: Hemoglobin remains stable at 11.8 (5) Morbid obesity: Plan: -BMI of 32.3, diet and exercise to be encouraged throughout the hospital stay and on discharge -Chronic (6) Essential hypertension: Plan: - Cont home antihypertensive medications (7) HLD (hyperlipidemia): Plan: - Cont statin therapy DVT PPx: SCDs Lines: 2 PIV, AVF left antecubital space FEN/GI renal diet Code: Full code Likely renal hospital x 1 to 2 days, patient is from home Admission and Anticipated Discharge Date Admission Date: March 15, 2023 Subjective 03/16/2023 The patient was seen and examined in medical floor She has been feeling much better and denies any significant symptoms She has had dialysis yesterday and unfortunately potassium went up to 6.0 today She will have dialysis again today Review of Systems Review of Systems: All systems reviewed and are unremarkable except as noted below Physical Exam Physical Exam: Lying in bed without any acute distress Constitutional: well developed, well nourished and + obese; not ill appearing Eyes: PERRL, conjunctivae normal, anicteric sclerae ENMT: external ear and nose normal, oropharynx normal Neck: trachea midline, no thyromegaly Respiratory: no respiratory distress Auscultation: lungs clear to auscultation bilaterally and + crackles (Occasional crackles at the bases) Cardiovascular: Rate/Rhythm: regular rate and regular rhythm; not tachycardic Heart Sounds: normal S1 and normal S2; no murmur Extremities: no edema Gastrointestinal (Abdomen): Inspection/Auscultation: normal bowel sounds; abdomen not distended Percussion/Palpation: abdomen soft; abdomen nontender Musculoskeletal: No acute arthritis involving any joint Neurologic: normal touch/pain/proprioception and moves all extremities; no focal motor deficits Lymphatic: no cervical or axillary lymphadenopathy Results & Data Results & Data Vital Signs (Past 12 Hours) Vital Signs Temp Pulse Pulse Resp BP BP Pulse Ox 03/16/23 15:00 69 186/96 H 03/16/23 14:30 72 175/104 H 03/16/23 14:00 69 174/101 H 03/16/23 13:35 36.5 C 71 03/16/23 08:03 36.5 C 96 H 16 172/90 H 95 O2 Del Method 03/16/23 15:00 03/16/23 14:30 03/16/23 14:00 03/16/23 13:35 03/16/23 08:03 Room Air Laboratory Results Short CBC 03/16/23 Range/Units 06:18 WBC 4.79 L (4.8-10.8) K/ul Hgb 11.8 L (12.0-16.0) g/dl Hct 34.3 L (37.0-47.0) % Plt Count 155 (130-400) K/uL BMP 03/16/23 06:18 Sodium 134 L Potassium 6.0 H Chloride 98 Carbon Dioxide 25 BUN 44 H D Creatinine 7.13 H* D Glucose 119 H Calcium 9.1 Medications Administered Current Inpatient Medications Acetaminophen (Acetaminophen 325 Mg Tab) 650 mg PO Q4H PRN PRN Reason: Moderate Pain (Scale 4, 5, 6) Stop: 04/14/23 11:00 Hydrocodone Bitart/Acetaminophen (Hydrocodone/Acetamophen 5/325mg Tab) 1 tab PO Q8H PRN PRN Reason: pain,severe Stop: 03/29/23 11:25 Last Admin: 03/15/23 20:52 Dose: 1 tab Amlodipine Besylate (Amlodipine Besylate 5 Mg Tab) 5 mg PO BID [facility] Stop: 04/15/23 08:59 Last Admin: 03/16/23 08:27 Dose: 5 mg Artificial Tears (Artificial Tears) 1 drops OP 6XD PRN PRN Reason: dry eye(s) Stop: 04/14/23 11:15 Aspirin (Aspirin 81 Mg Chew) 81 mg PO QAM [facility] Stop: 04/15/23 08:59 Last Admin: 03/16/23 08:27 Dose: 81 mg Calcitriol (Calcitriol 0.25 Mcg Capsule) 0.5 mcg PO QAM [facility] Stop: 04/15/23 08:59 Last Admin: 03/16/23 08:27 Dose: 0.5 mcg Calcium Acetate (Calcium Acetate 667 Mg Cap/Tab) 1,334 mg PO TID [facility] Stop: 04/14/23 11:00 Last Admin: 03/16/23 12:38 Dose: 1,334 mg Calcium Carbonate (Calcium Carbonate 500 Mg Chewable Tab) 500 mg PO BID PRN PRN Reason: Indigestion Stop: 04/14/23 23:23 Last Admin: 03/15/23 23:41 Dose: 500 mg Docusate Sodium (Docusate Sodium 100 Mg Cap) 100 mg PO BID [facility] Stop: 04/15/23 08:59 Last Admin: 03/16/23 08:28 Dose: 100 mg Fluticasone Propionate (Fluticasone Propionate Na Spr 16 Gm Btl) 1 sprays NA DAILY PRN PRN Reason: Allergy Symptoms Stop: 04/14/23 11:00 Gabapentin (Gabapentin 100 Mg Cap) 100 mg PO TID [facility] Stop: 04/15/23 13:59 Last Admin: 03/16/23 12:37 Dose: 100 mg Hydralazine HCl (Hydralazine Tab 50 Mg Tab) 50 mg PO BID [facility] Stop: 04/14/23 20:59 Last Admin: 03/16/23 08:27 Dose: 50 mg Sodium Chloride (Nss) 1,000 mls @ 0 mls/hr IV .Q0M PRN PRN Reason: For Hemodialysis Use ONLY Stop: 03/16/23 17:02 Levothyroxine Sodium (Levothyroxine Sodium 100 Mcg Tablet) 100 mcg PO [facility] Stop: 04/15/23 08:59 Last Admin: 03/16/23 07:54 Dose: 100 mcg Magnesium Oxide (Magnesium Oxide 400 Mg Tab) 400 mg PO [facility] Stop: 04/15/23 08:59 Last Admin: 03/16/23 08:27 Dose: 400 mg Metoprolol Tartrate (Metoprolol Tartrate 25 Mg Tab) 37.5 mg PO BID [facility] Stop: 04/15/23 08:59 Last Admin: 03/16/23 08:28 Dose: 37.5 mg Miscellaneous (Order Awaiting Action [Imatinib [Gleevec] 100 Mg Tablet]) 1 each N/A QS [facility] Stop: 04/14/23 15:59 Last Admin: 03/16/23 15:15 Dose: Not Given Multi-Ingredient Cream (Artificial Tears Op Oint 3.5 Gm Tube) 1 appln OP HS PRN PRN Reason: dry eyes Stop: 04/14/23 11:16 Ondansetron HCl (Ondansetron 4 Mg Od Tab) 8 mg PO TID PRN PRN Reason: PRIOR TO CHEMOTHERAPY MEDS Stop: 04/14/23 11:15 Pantoprazole Sodium (Pantoprazole 40 Mg Tab) 40 mg PO [facility]; Protocol Stop: 04/15/23 08:59 Last Admin: 03/16/23 07:54 Dose: 40 mg Polyethylene Glycol (Polyethylene (Miralax) 17 Gm Pack) 17 gm PO BID [facility] Stop: 04/14/23 11:00 Last Admin: 03/16/23 08:26 Dose: 17 gm Prochlorperazine (Prochlorperazine Maleate 10 Mg Tab) 10 mg PO Q6H PRN PRN Reason: NAUSEA/VOMITING Stop: 04/14/23 11:00 Sodium Zirconium Cyclosilicate (Sodium Zirconium Cyclosilicate 10 Gm Packet) 10 gm PO DAILY@1100 [facility] Stop: 04/16/23 10:59 Vitamin B Complex/Folic Acid (Nephrocaps) 1 cap PO DAILY [facility] Stop: 04/15/23 08:59 Last Admin: 03/16/23 08:27 Dose: 1 cap
[2023-03-16] MEDS: HYDROCODONE/ACETAMOPHEN 5/325MG TAB PO PRN (21:43)
[2023-03-17] MEDS: LEVOTHYROXINE SODIUM 100 MCG TABLET PO SCH (07:14)
[2023-03-17] MEDS: PANTOprazole 40 MG TAB PO SCH (07:14)
[2023-03-17] MEDS ORDERED: Nursing to Pharmacy Communication SCH (07:15)
[2023-03-17 07:35] LABS: BUN Creatinine Ratio 4.7 (10-20); Calcium 9.5 mg/dl (8.6-10.3); Creatinine Clr Calc Pharmacy 13.2 ml/min; Est GFR (African American) 10.6 ml/min; Est GFR (Non-African American) 9.2 ml/min; Potassium 4.2 mmol/L (3.5-5.1)
[2023-03-17] MEDS: POLYETHYLENE (MIRALAX) 17 GM PACK PO SCH (08:17)
[2023-03-17] MEDS: CALCIUM ACETATE 667 MG CAP/TAB PO SCH ×2 (08:23→15:50)
[2023-03-17] MEDS: CALCITRIOL 0.25 MCG CAPSULE PO SCH (08:23)
[2023-03-17] MEDS: NEPHROCAPS PO SCH (08:23)
[2023-03-17] MEDS: hydrALAZINE TAB 50 MG TAB PO SCH (08:23)
[2023-03-17] MEDS: GABAPENTIN 100 MG CAP PO SCH ×2 (08:24→15:50)
[2023-03-17] MEDS: METOPROLOL TARTRATE 25 MG TAB PO SCH (08:24)
[2023-03-17] MEDS: MAGNESIUM OXIDE 400 MG TAB PO SCH (08:24)
[2023-03-17] MEDS: amLODIPine BESYLATE 5 MG TAB PO SCH (08:24)
[2023-03-17] MEDS: DOCUSATE SODIUM 100 MG CAP PO SCH (08:24)
[2023-03-17] MEDS: ASPIRIN 81 MG CHEW PO SCH (08:29)
[2023-03-17] MEDS ORDERED: SODIUM ZIRCONIUM CYCLOSILICATE 10 GM PACKET PO SCH (11:00)
[2023-03-17] MEDS ORDERED: SODIUM CHLORIDE 0.9% 1,000 ML IV PRN (11:07)
--- NOTE | 2023-03-17 11:11 | Nephrology Progress Note ---
Date of Service March 17, 2023 Assessment & Plan Admission and Anticipated Discharge Date Admission Date: March 15, 2023 Subjective Subjective Assessment & Plan (1) Acute hyperkalemia: Plan: K is normal today after 2 days dialysis. 6 yesterday. Dialysis again today to get her back to schedule of MWF--will do 2.5 hrs on 2 k bath. She wants to go home today (2) ESRD (end stage renal disease) on dialysis: Plan: HD today for 2.5 hrs via AVF on 2K bath She may also need Veltassa or Lokelma as outpt and more strict diet adherence Subjective She had dialysis yesterday and mon. feels fine Review of Systems Review of Systems: All systems reviewed & are unremarkable except as noted in Subjective Physical Exam Constitutional: well developed and well nourished Eyes: EOM intact bilaterally ENMT: Ears: no external ear abnormality Nose: no external nose abnormality Mouth: + dry oral mucous membranes Neck: no nuchal rigidity Respiratory: normal respiratory effort Auscultation: + diminished lung sounds Cardiovascular: Rate/Rhythm: regular rate and regular rhythm Extremities: + AV fistula; no edema Gastrointestinal (Abdomen): Inspection/Auscultation: normal bowel sounds Percussion/Palpation: abdomen soft; abdomen nontender Musculoskeletal: Extremities: strength 5/5 throughout Skin: no rashes, warm and dry Results & Data Vital Signs (Past 12 Hours) Vital Signs Temp Pulse Resp BP Pulse Ox O2 Del Method 03/17/23 10:32 163/84 H 03/17/23 07:45 36.9 C 67 16 187/94 H 96 Room Air
--- NOTE | 2023-03-17 14:44 | Hospitalist Progress Note ---
Date of Service March 17, 2023 Assessment & Plan (1) Butt's palsy: Plan: -Presented on 09 March with left-sided facial droop and was thought to be due to Butt's palsy and started on prednisone -MRI of the brain was obtained due to dizziness, negative for acute strokelike symptoms -Involvment of the Left forehead, eye, lip -Patient has been on prednisone 60 mg daily and valtrex 500 mg daily since 03/09, she finishes the course today. -PT/OT consults -Clinically much better facial asymmetry persist -Incidental finding of hyperkalemia as below -Butt's palsy has not been causing any problem with eating or speaking (2) ESRD (end stage renal disease) on dialysis: Plan: Patient missed session on 03/12, last session on 03/10, presented with creatinine of 10.41, BUN 74, potassium 5.8Normal dialysis session is MWF, -Nephrology consulted for dialysis session today -Was administered IV calcium gluconate and dextrose for hyperkalemia, recheck BMP now -Continue renal supplements -Patient does not appear to be volume overloaded at this time -Has had dialysis on 03/15/2023 -Potassium noted to be high at 6.0 today and will have hemodialysis again today -Potassium has been normalized -Her potassium may go high so she will have another short dialysis today before discharging home -She will be advised to avoid any high potassium containing food -She will have usual dialysis as an outpatient (3) Hyperkalemia: Plan: As above Strongly advised to avoid potassium rich foods and she is well aware about that (4) Anemia in chronic kidney disease: Plan: Hemoglobin remains stable at 11.8 (5) Morbid obesity: Plan: -BMI of 32.3, diet and exercise to be encouraged throughout the hospital stay and on discharge -Chronic (6) Essential hypertension: Plan: - Cont home antihypertensive medications (7) HLD (hyperlipidemia): Plan: - Cont statin therapy DVT PPx: SCDs Lines: 2 PIV, AVF left antecubital space FEN/GI renal diet Code: Full code Will be discharged home this afternoon Admission and Anticipated Discharge Date Admission Date: March 15, 2023 Subjective 03/16/2023 The patient was seen and examined in medical floor She has been feeling much better and denies any significant symptoms She has had dialysis yesterday and unfortunately potassium went up to 6.0 today She will have dialysis again today 03/17/2023 The patient was seen and examined in medical floor She has been feeling much better and potassium has been normalized Discussed with the filler mixer and she will have dialysis today prior to discharge Review of Systems Review of Systems: All systems reviewed and are unremarkable except as noted below Physical Exam Physical Exam: Lying in bed without any acute distress Constitutional: well developed, well nourished and + obese; not ill appearing Eyes: PERRL, conjunctivae normal, anicteric sclerae ENMT: external ear and nose normal, oropharynx normal Neck: trachea midline, no thyromegaly Respiratory: no respiratory distress Auscultation: lungs clear to auscultation bilaterally and + crackles (Occasional crackles at the bases) Cardiovascular: Rate/Rhythm: regular rate and regular rhythm; not tachycardic Heart Sounds: normal S1 and normal S2; no murmur Extremities: no edema Gastrointestinal (Abdomen): Inspection/Auscultation: normal bowel sounds; abdomen not distended Percussion/Palpation: abdomen soft; abdomen nontender Musculoskeletal: No acute arthritis involving any joint Neurologic: normal touch/pain/proprioception and moves all extremities; no focal motor deficits Lymphatic: no cervical or axillary lymphadenopathy Results & Data Results & Data Vital Signs (Past 12 Hours) Vital Signs Temp Pulse Pulse Resp BP BP Pulse Ox 03/17/23 14:00 68 164/93 H 03/17/23 13:30 68 161/89 H 03/17/23 13:00 65 158/94 H 03/17/23 12:30 58 L 155/85 H 03/17/23 12:00 59 L 145/81 H 03/17/23 11:47 36.9 C 63 03/17/23 10:32 163/84 H 03/17/23 07:45 36.9 C 67 16 187/94 H 96 O2 Del Method 03/17/23 14:00 03/17/23 13:30 03/17/23 13:00 03/17/23 12:30 03/17/23 12:00 03/17/23 11:47 03/17/23 10:32 03/17/23 07:45 Room Air Laboratory Results [facility] 03/17/23 06:30 Sodium 137 Potassium 4.2 D Chloride 100 Carbon Dioxide 29 BUN 22 D Creatinine 4.67 H* D Glucose 81 Calcium 9.5 Medications Administered Current Inpatient Medications Acetaminophen (Acetaminophen 325 Mg Tab) 650 mg PO Q4H PRN PRN Reason: Moderate Pain (Scale 4, 5, 6) Stop: 04/14/23 11:00 Hydrocodone Bitart/Acetaminophen (Hydrocodone/Acetamophen 5/325mg Tab) 1 tab PO Q8H PRN PRN Reason: pain,severe Stop: 03/29/23 11:25 Last Admin: 03/16/23 21:43 Dose: 1 tab Amlodipine Besylate (Amlodipine Besylate 5 Mg Tab) 5 mg PO BID [facility] Stop: 04/15/23 08:59 Last Admin: 03/17/23 08:24 Dose: 5 mg Artificial Tears (Artificial Tears) 1 drops OP 6XD PRN PRN Reason: dry eye(s) Stop: 04/14/23 11:15 Aspirin (Aspirin 81 Mg Chew) 81 mg PO QAM [facility] Stop: 04/15/23 08:59 Last Admin: 03/17/23 08:29 Dose: 81 mg Calcitriol (Calcitriol 0.25 Mcg Capsule) 0.5 mcg PO QAM [facility] Stop: 04/15/23 08:59 Last Admin: 03/17/23 08:23 Dose: 0.5 mcg Calcium Acetate (Calcium Acetate 667 Mg Cap/Tab) 1,334 mg PO TID [facility] Stop: 04/14/23 11:00 Last Admin: 03/17/23 08:23 Dose: 1,334 mg Calcium Carbonate (Calcium Carbonate 500 Mg Chewable Tab) 500 mg PO BID PRN PRN Reason: Indigestion Stop: 04/14/23 23:23 Last Admin: 03/15/23 23:41 Dose: 500 mg Docusate Sodium (Docusate Sodium 100 Mg Cap) 100 mg PO BID [facility] Stop: 04/15/23 08:59 Last Admin: 03/17/23 08:24 Dose: 100 mg Fluticasone Propionate (Fluticasone Propionate Na Spr 16 Gm Btl) 1 sprays NA DAILY PRN PRN Reason: Allergy Symptoms Stop: 04/14/23 11:00 Gabapentin (Gabapentin 100 Mg Cap) 100 mg PO TID [facility] Stop: 04/15/23 13:59 Last Admin: 03/17/23 08:24 Dose: 100 mg Hydralazine HCl (Hydralazine Tab 50 Mg Tab) 50 mg PO BID [facility] Stop: 04/14/23 20:59 Last Admin: 03/17/23 08:23 Dose: 50 mg Sodium Chloride (Nss) 1,000 mls @ 0 mls/hr IV .Q0M PRN PRN Reason: For Hemodialysis Use ONLY Stop: 03/17/23 17:06 Levothyroxine Sodium (Levothyroxine Sodium 100 Mcg Tablet) 100 mcg PO DAILYBB [facility] Stop: 04/17/23 06:29 Magnesium Oxide (Magnesium Oxide 400 Mg Tab) 400 mg PO QAM [facility] Stop: 04/15/23 08:59 Last Admin: 03/17/23 08:24 Dose: 400 mg Metoprolol Tartrate (Metoprolol Tartrate 25 Mg Tab) 37.5 mg PO BID [facility] Stop: 04/15/23 08:59 Last Admin: 03/17/23 08:24 Dose: 37.5 mg Miscellaneous (Order Awaiting Action [Imatinib [Gleevec] 100 Mg Tablet]) 1 each N/A QS [facility] Stop: 04/14/23 15:59 Last Admin: 03/17/23 07:06 Dose: Not Given Multi-Ingredient Cream (Artificial Tears Op Oint 3.5 Gm Tube) 1 appln OP HS PRN PRN Reason: dry eyes Stop: 04/14/23 11:16 Ondansetron HCl (Ondansetron 4 Mg Od Tab) 8 mg PO TID PRN PRN Reason: PRIOR TO CHEMOTHERAPY MEDS Stop: 04/14/23 11:15 Pantoprazole S[facility] ([facility] 40 Mg [facility]) [facility] Stop: 04/17/23 06:29 Polyethylene Glycol (Polyethylene (Miralax) 17 Gm Pack) 17 gm PO BID [facility] Stop: 04/14/23 11:00 Last Admin: 03/17/23 08:17 Dose: 17 gm Prochlorperazine (Prochlorperazine Maleate 10 Mg Tab) 10 mg PO Q6H PRN PRN Reason: NAUSEA/VOMITING Stop: 04/14/23 11:00 Sodium Zirconium Cyclosilicate (Sodium Zirconium Cyclosilicate 10 Gm Packet) 10 gm PO DAILY@1100 [facility] Stop: 04/16/23 10:59 Last Admin: 03/17/23 10:52 Dose: 10 gm Vitamin B Complex/Folic Acid (Nephrocaps) 1 cap PO DAILY [facility] Stop: 04/15/23 08:59 Last Admin: 03/17/23 08:23 Dose: 1 cap
[2023-03-18] MEDS ORDERED: PANTOprazole 40 MG TAB PO SCH (06:30)
[2023-03-18] MEDS ORDERED: LEVOTHYROXINE SODIUM 100 MCG TABLET PO SCH (06:30)
--- NOTE | 2023-03-18 09:17 | Discharge Summary ---
Date of Service March 17, 2023 Admission HPI Per Admitting Provider This is a 67 yo F w/ pMHx of ESRD (on HD M/W/Fr), failed renal transplant, HTN, HLP, COPD, pHTN, sleep apnea, GERD, GIST, hypothyroidism s/p thyroidectomy, migraine VACA, mood disorder and multiple abdominal surgeries. 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 She was started on a prednisone course at that time. It is scheduled to finish today. Patient states that she has been taking prednisone 60 mg at noon after her dialysis sessions daily., at that time she had a CT of the head which was negative for acute intracranial findings. She states that on 03/12 she was supposed to have dialysis however due to not feeling well, having some nausea and throwing up, she did not go. She denies any abdominal pain, diarrhea or constipation at this time. Patient has returned again today to the ER with increased dizziness, reports "jumping muscles in her arms" which are nonpainful, and not feeling quite well. She underwent a brain MRI earlier today and 03/15/2023 which was negative for any acute intracranial findings. There is mild small vessel disease and trace fluid within the right mastoid air cells, no evidence for sinusitis. Patient is found to be hyperkalemic 5.8, and was treated with IV calcium gluconate and dextrose, her creatinine is 10.41, BUN 74. Patient will be admitted for dialysis today as well as hyperkalemia. Admission Exam Per Admitting Provider Physical Exam: General: awake, alert, no apparent distress Head: Normocephalic, atraumatic, + bells palsy involving left forehead, left eye and left lip droop ENT: PERRL, EOMI, no pharyngeal exudate, mucous membranes moist Chest: Clear to auscultation, on room air, no adventitious breath sounds Cardiac: Regular rate and rhythm, no murmur, no JVD, normal peripheral pulses, good capillary refill Abdominal: NABS x 4 quadrants, soft, nondistended, nontender to palpation, no rebound or guarding Extremities: Left antecubital AVF with thrill and bruit, otherwise normal inspection, no peripheral edema or erythema, calfs nontender to palpation Psych: Flat mood and affect Neuro: AAO x 3, strength intact bilaterally and rated 5/5, no motor deficits, speech is clear, no peripheral sensory deficits Principal Diagnosis End-stage renal disease on hemodialysis, hyperkalemia-resolved, Butt's palsy Discharge Exam Lying in bed without any acute distress Constitutional well developed, well nourished and + obese; not ill appearing Eyes PERRL, conjunctivae normal, anicteric sclerae ENMT external ear and nose normal, oropharynx normal Neck trachea midline, no thyromegaly Respiratory no respiratory distress Auscultation: lungs clear to auscultation bilaterally and + crackles (Occasional crackles at the bases) Cardiovascular Rate/Rhythm: regular rate and regular rhythm; not tachycardic Heart Sounds: normal S1 and normal S2; no murmur Extremities: no edema Gastrointestinal (Abdomen) Inspection/Auscultation: normal bowel sounds; abdomen not distended Percussion/Palpation: abdomen soft; abdomen nontender Neurologic normal touch/pain/proprioception and moves all extremities; no focal motor deficits Lymphatic no cervical or axillary lymphadenopathy Discharge Data Allergies Allergy/AdvReac Type Severity Reaction Status Date / Time levofloxacin AdvReac Severe C-DIFF Verified 03/15/23 02:53 Consultations 03/15/23 07:38 ED Decision to Admit Stat 03/15/23 11:01 Consult Nephrology Routine Ordered Studies 03/15/23 02:46 MR brain wo con Stat Hospital Course (1) Butt's palsy: -Presented on 09 March with left-sided facial droop and was thought to be due to Butt's palsy and started on prednisone -MRI of the brain was obtained due to dizziness, negative for acute strokelike symptoms -Involvment of the Left forehead, eye, lip -Patient has been on prednisone 60 mg daily and valtrex 500 mg daily since 03/09, she finishes the course today. -PT/OT consults -Clinically much better facial asymmetry persist -Incidental finding of hyperkalemia as below -Butt's palsy has not been causing any problem with eating or speaking (2) ESRD (end stage renal disease) on dialysis: Patient missed session on 03/12, last session on 03/10, presented with creatinine of 10.41, BUN 74, potassium 5.8Normal dialysis session is MWF, -Nephrology consulted for dialysis session today -Was administered IV calcium gluconate and dextrose for hyperkalemia, recheck BMP now -Continue renal supplements -Patient does not appear to be volume overloaded at this time -Has had dialysis on 03/15/2023 -Potassium noted to be high at 6.0 today and will have hemodialysis again today -Potassium has been normalized -Her potassium may go high so she will have another short dialysis today before discharging home -She will be advised to avoid any high potassium containing food -She will have usual dialysis as an outpatient (3) Hyperkalemia: As above Strongly advised to avoid potassium rich foods and she is well aware about that (4) Anemia in chronic kidney disease: Hemoglobin remains stable at 11.8 (5) Morbid obesity: -BMI of 32.3, diet and exercise to be encouraged throughout the hospital stay and on discharge -Chronic (6) Essential hypertension: - Cont home antihypertensive medications (7) HLD (hyperlipidemia): - Cont statin therapy DVT PPx: SCDs Lines: 2 PIV, AVF left antecubital space FEN/GI renal diet Code: Full code Will be discharged home this afternoon Total Time Total Time Spent Total Time Spent (In Minutes): 35 minutes Discharge Plan Discharge Items Patient Disposition: Home - Self-Care Reason For Visit: HYPERKALEMIA Discharge Diagnosis: End-stage renal disease on hemodialysis, hyperkalemia-resolved, Butt's palsy Condition on Discharge: Good Activity: Resume your previous activity Non-emergency contact: Primary Care Provider Call non-emergency contact if: you have any medication questions and your symptoms worsen Follow-up/Referrals: Jameel Reyna DO [Primary Care Provider] - 03/21/23 2:00 pm (Please arrive 15 minutes prior to your appointment time. ) Diet: Dialysis Renal and Low Potassium (2gm) Fluids: 1200ml (5 cups) Addtl Attending Provider Instructions: Please take precautions to avoid falls No change in your current medication Try to avoid high potassium containing foods Keep appointment with your dialysis session Pending Studies at Discharge: No Stand-Alone Forms: [facility] [place], Smoking Cessation Medications and DC Order Prescriptions: Continued omeprazole 40 mg Capsule,Delayed Release(Dr/Ec) 40 mg PO QAM aspirin 81 mg Tablet,Chewable 81 mg PO QAM Rx Instructions: TAKE WITH FOOD gabapentin 100 mg Capsule 100 mg PO TID fluticasone propionate [Flonase Allergy Relief] 50 mcg/actuation [place],Suspension 1 spray INTRANASAL DAILY PRN (Reason: Allergy Symptoms) magnesium oxide 400 mg magnesium Tablet 400 mg PO QAM ondansetron HCl 8 mg Tablet 8 mg PO TID PRN (Reason: PRIOR TO CHEMOTHERAPY MEDS) amlodipine 5 mg Tablet 5 mg PO BID prochlorperazine maleate [Compazine] 10 mg Tablet 10 mg PO Q6H PRN (Reason: NAUSEA/VOMITING) triamcinolone acetonide 0.1 % Cream 1 applic TOPICAL Q3D PRN (Reason: Skin Irritation) levothyroxine 100 mcg Tablet 100 mcg PO QAM [place] Caps 1 mg Capsule 1 cap PO DAILY Rx Instructions: TAKE AFTER DIALYSIS TREATMENT metoprolol tartrate 25 mg Tablet 37.5 mg PO BID Rx Instructions: TAKE 1 1/2 TABS BID oxycodone-acetaminophen 2.5-325 mg Tablet 1 tab PO Q8H PRN (Reason: pain,severe) Patient Comments: takes 3 times daily imatinib [Gleevec] 100 mg Tablet 200 mg PO QPM Rx Instructions: TAKE WITH A MEAL docusate sodium [Stool Softener] 100 mg Capsule 100 mg PO BID hydralazine 50 mg Tablet 50 mg PO BID polyethylene glycol 3350 [Miralax] 17 gram/dose Powder 17 g PO BID calcitriol 0.5 mcg capsule 0.5 mcg PO QAM calcium acetate(phosphat bind) 667 mg capsule 1,334 mg PO TID Rx Instructions: w/meals and snack valacyclovir [Valtrex] 500 mg tablet 500 mg PO DAILY Qty: 7 0RF Rx Instructions: STARTED 03/09/23 FOR 7 DAYS Refresh Contacts Drops 1 drp ophthalmic (eye) 6XD PRN (Reason: dry eye(s)) Qty: 12 0RF Refresh Lacri-Lube 56.8-42.5 % ointment 1 applic ophthalmic (eye) HS PRN (Reason: dry eyes) 10 Days Qty: 3.5 0RF Discharge Orders: Discharge Order (Routine); Ordered 03/17/23 Ordered By: Yonatan Sweet Admission Data Admit Date/Time: 03/15/23 08:47 Attending Provider: Yonatan Sweet Admit Provider: Yonatan Sweet Primary Care Provider: Jameel Reyna Other Providers: Yonatan Sweet; Tori Friedman Other Interventions: Discharge Summary Assessment (RN) Last Done: 03/17/23 15:23
== END 2023-03-17 16:05 | disposition home or self-care (01) | DRG 640 ==
LOC: ED 02:16 → EDINP 08:47 → 3W 11:02

== ENCOUNTER 2023-06-02 07:36 | Inpatient (IN) ==
[2023-06-02 08:27] LABS: Basophils # (auto) 0.05 K/uL (0.00-0.20); Eosinophils # (auto) 0.44 K/uL (0.00-0.50); Eosinophils % (auto) 8.6 %; Hematocrit (blood only) 23.7 % (37.0-47.0); Hemoglobin 7.5 g/dl (12.0-16.0); Immature Granulocytes # (auto) 0.01 K/uL (0.01-0.20); Immature Granulocytes % (auto) 0.2 %; Lymphocytes # (auto) 0.99 K/uL (1.20-3.40); Lymphocytes % (auto) 19.3 %; Mean Corpuscular Hgb Conc 31.6 g/dL (32.0-36.0); Mean Corpuscular Volume 97.9 fL (80.0-100.0); Monocytes # (auto) 0.75 K/uL (0.11-0.59); Monocytes % (auto) 14.6 %; Neutrophils # (auto) 2.88 K/uL (1.40-6.50); Neutrophils % (auto) 56.3 %; Platelet Count 127 K/uL (130-400); RDW Coefficient of Variation 14.2 % (11.5-14.5); RDW Standard Deviation 51.1 fL (36.4-46.3); Red Blood Count 2.42 M/uL (4.20-5.40); White Blood Count 5.12 K/ul (4.8-10.8)
--- NOTE | 2023-06-02 08:53 | XRay Report ---
XR chest 1V portable HISTORY: weakness COMPARISON: Chest 03/09/2023. FINDINGS: No pneumothorax. No pleural effusions. The heart is mildly enlarged. There are low lung vol umes. This progressive interstitial/vascular thickening consistent with mild pulmonary edema. No new focal lung consolidations. A right jugular Port-A-Cath terminates in the SVC. No acute fractures. IMPRESSION: Interval progression of the cardiomegaly and mild interstitial pulmonary edema. ACT 112: Negative or not required by law. Electronically signed by: Jesus Alberto Hernández M.D. 06/02/2023 8:52 AM
[2023-06-02 09:02] LABS: RBC Morphology Unremarkable
[2023-06-02 09:40] LABS: Albumin Globulin Ratio 1.8 (0.9-2); Albumin Level 3.7 gm/dl (3.4-5.0); BUN Creatinine Ratio 5.6 (10-20); Bilirubin,Total 0.5 mg/dl (0.2-1.0); Calcium 6.4 mg/dl (8.6-10.3); Creatinine Clr Calc Pharmacy 9.3 ml/min; Est GFR (African American) 6.7 ml/min; Est GFR (Non-African American) 5.8 ml/min; Globulin 2.1 gm/dl (2.5-4.0); Magnesium 1.9 mg/dl (1.7-2.4); Potassium 3.7 mmol/L (3.5-5.1); Thyroid Stimulating Hormone 59.278 uIu/ml (0.300-4.500); Total Protein 5.8 gm/dl (6.0-8.3); Troponin I High Sensitivity 6.6 pg/ml (0-14)
[2023-06-02] MEDS: CALCIUM GLUCONATE 1,000 MG/60 ML BAG IV STA (10:11)
--- NOTE | 2023-06-02 10:17 | History & Physical Report ---
Date of Service June 02, 2023 Assessment & Plan (1) Hypocalcemia: Plan: This is a 67 y/o female with ESRD on HD, s/p renal transplant failure, COPD, chronic hypoxic resp failure, sleep apnea, gastric GIST tumor, HTN, pulmonary HTN, GERD, dyslipidemia, thyroid cancer s/p thyroidectomy/parathyroidectomy, and other history as outlined below who was referred to the ED today due to low calcium on labwork from four days ago. Noted to have mild pulmonary vascular congestion on imaging but denies new respiratory symptoms. Pt did miss an episode of HD last week due to diarrhea. - Admit to PCU - Given calcium gluconate 1 g IV in the ED, to have HD today with 3 Ca++ bath, add Tums 1500 HS - Repeat labs in the AM - Check PTH, Vit D (2) ESRD (end stage renal disease) on dialysis: Plan: Spoke with nephrology who will see patient and plan for HD today Continue outpatient Phoslo (3) Anemia in chronic kidney disease: Plan: Anemia worse today with H&H down from baseline - no obvious source of blood loss, stool in ED was heme negative. Procrit to be given with HD today (4) Diarrhea: Plan: New diarrhea over the last 2-3 weeks, which is why she missed HD last Monday. Has been using prn Imodium. Check stool culture, C. diff (5) Post-surgical hypothyroidism: Plan: TSH elevated today, Free T4 normal Continue levothyroxine (6) Morbid obesity: (7) Essential hypertension: Plan: Chronic, stable Continue outpatient regimen (8) Butt's palsy: Plan: Stable from diagnosis in February (9) Gastrointestinal stromal tumor (GIST): Plan: Chronic, follows with oncology Continue Gleevac Plan Pt seen and reviewed with collaborating physician, Dr. Pratt. Plan of care discussed and as outlined above Code Status: Full code DVT Prophylaxis: Jony Alvarez PA-C History of Present Illness Chief Complaint: Abnormal labs Primary Care Provider: Jameel Reyna, This is a 67 y/o female with ESRD on HD, s/p renal transplant failure, COPD, chronic hypoxic resp failure, sleep apnea, gastric GIST tumor, HTN, pulmonary HTN, GERD, dyslipidemia, thyroid cancer s/p thyroidectomy/parathyroidectomy, and other history as outlined below who was referred to the ED today due to low calcium on labwork from four days ago. Pt is on HD 3 days per week - M// - and is due for HD today. She did miss HD last Monday due to diarrhea. She does not recall having an issue with hypocalcemia previously. She has some leg cramping but notes this is not a new issue. She notes intermittent diarrhea for the last 2-3 weeks - no clear trigger. She has been taking Imodium for this, which helps temporarily but then the diarrhea recurs. She has associated urgency and incontinence at times but no hematochezia. She does not recall any recent antibiotics but does have a hx of C. diff. She was also noted to have worsened anemia since her last admission. Pt denies overt blood loss, specifically no epistaxis, gingival bleeding, hematuria. Denies recent illness - no fevers, chills, URI symptoms. Allergies Allergy/AdvReac Type Severity Reaction Status Date / Time levofloxacin AdvReac Severe C-DIFF Verified 06/02/23 10:43 Home Medications Medication Instructions Recorded Confirmed Type aspirin 81 mg chewable tablet 81 mg PO QAM 04/23/18 06/02/23 History gabapentin 100 mg capsule 100 mg PO TID 04/23/18 06/02/23 History magnesium oxide 400 mg PO QAM 03/08/22 06/02/23 History amlodipine 5 mg tablet 5 mg PO BID 07/21/22 06/02/23 History levothyroxine 100 mcg tablet 100 mcg PO QAM 07/21/22 06/02/23 History metoprolol tartrate 25 mg tablet 37.5 mg PO BID 07/21/22 06/02/23 History ondansetron HCl 8 mg tablet 8 mg PO TID PRN PRIOR TO 07/21/22 06/02/23 History CHEMOTHERAPY MEDS prochlorperazine maleate 10 mg 10 mg PO Q6H PRN NAUSEA/VOMITING 07/21/22 06/02/23 History tablet (Compazine) triamcinolone acetonide 0.1 % 1 applic topical BID PRN Rash 07/21/22 06/02/23 History topical cream vitamin B complex and vitamin C 1 cap PO DAILY 07/21/22 06/02/23 History no.20-folic acid 1 mg capsule ([place] Caps) imatinib 100 mg tablet (Gleevec) 200 mg PO QPM 09/22/22 06/02/23 History calcium acetate(phosphat bind) 667 1,334 mg PO TID 10/20/22 06/02/23 History mg capsule carboxymethylcellulose sodium 1 drp ophthalmic (eye) 6XD PRN dry 03/09/23 06/02/23 Rx (Refresh Contacts eye drops) eye(s) #12 mL hydralazine 25 mg tablet 25 mg PO BID 06/02/23 06/02/23 History omeprazole 40 mg capsule,delayed 40 mg PO DAILY 06/02/23 06/02/23 History release oxycodone-acetaminophen 5 mg-325 1 tab PO Q8H PRN Pain 06/02/23 06/02/23 History mg tablet Past Med/Surg History Medical History (Updated 06/02/23 @ 18:46 by Josselin Alvarez PA-C) Mediastinal mass ongoing work-up with [facility] thoracic medicine and heme/onc Hypocalcemia Secondary hyperparathyroidism Neck pain h/o UE paresthesias; pt states neck pain and upper extremity abnormal symptoms>fully resolved Thyroid nodule s/p thyroidectomy COVID-19 hx-01/29/22-not hospitalized-symptoms fully resolved Pulmonary hypertension COPD (chronic obstructive pulmonary disease) stable per pt, no longer using supplemental oxygen-states home pulse ox readings are consistently 97% or greater-pt states provider is aware Abnormal stress test 01/2021 (reversible anterior and basal lateral defect consistent with ischemia vs soft tissue attenuation artifact) per [facility] cardio records, plan for medical management and consideration for DSE at 03/2021 appt; final determination per [facility] cardio is recommendation for diagnostic cardiac catheterization not yet scheduled by patient; now advised risk > benefit per [facility] cardio Limb alert care status left arm Port-A-Cath in place has not used in a long time 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 At least 1 of the peritoneal dialysis catheters had to be removed because of perit onitis..." Failed kidney transplant 2017 Palpitations AV fistula left upper arm (functioning), also one to left wrist, but does not function properly Chronic back pain GERD (gastroesophageal reflux disease) controlled, stable per pt Migraine Sleep apnea severe per [facility] records, no device currently > has apt soon to see about getting back on device Hypothyroidism s/p thyroidectomy at [facility] 06/28/22 Anemia in chronic kidney disease HLD (hyperlipidemia) HTN (hypertension) controlled, stable per pt ESRD (end stage renal disease) on dialysis MWF at [facility] in [place] Surgical History (Updated 04/09/23 @ 00:12 by Background Shay) Hx of total thyroidectomy 06/28/22, [facility] er>3 1/2 of parathyroid removed, also removed nodules that were "non cancerous" History of surgery hx perm cath insertion & removal History of appendectomy H/O cystoscopy History of laparoscopy History of bilateral tubal ligation History of kidney transplant 08/28/2016 @ [facility] [place] ([place] side) functions at only 10%--d/t ESRD > follows with dr at [facility] History of cholecystectomy History of section x1 History of colonoscopy History of esophagogastroduodenoscopy (EGD) History of tooth extraction History of wisdom tooth extraction History of tonsillectomy and adenoidectomy Family History Grandmother (Paternal) Family history of diabetes mellitus Grandmother (Maternal) Family history of diabetes mellitus Family hx of colon cancer Mother Family hx of colon cancer Other No family history of adverse response to anesthesia Social History Smoking Status: Former smoker Tobacco Type: Cigarettes Second Hand Exposure: No; Do You Dip or Chew Tobacco: No; Tobacco Cessation Education Requested by Patient: No Hx Alcohol Use: No Hx Substance Use: No Preferred Language: Welsh Communication Ability: Effective Senior Research Manager Required: No Beliefs That Will Affect Care: None marital status: Current Living Situation: Spouse Current Living Situation Comment: lives at home w spouse How many Children do You have: 1 Other Information That Helps Us Care for You: No Feels Safe at Home: Yes Safety Concerns: Feels Safe At This Time Assistive Devices: CPAP and Glasses Review of Systems Review of Systems: All systems reviewed & are unremarkable except as noted in HPI & below Constitutional: no fever, no chills, no sweats and no anorexia Eyes: no diplopia and no worsening vision Ear, Nose, Mouth, Throat: + nasal discharge (chronic "runny nose") ; no nasal congestion and no sore throat Respiratory: no cough, no dyspnea and no hemoptysis Cardiovascular: no chest pain, no palpitations, no lightheadedness and no syncope Gastrointestinal: + diarrhea/loose stools; no abdominal pa in, no nausea and no vomiting Genitourinary: no dysuria and no hematuria Musculoskeletal: no myalgia Integumentary: + rash (on left upper chest - improving) Neurologic: no generalized weakness, no dizziness and no headache(s) Physical Exam Physical Exam: General: awake, alert, NAD HEENT: no scleral icterus, moist oral mucosa, +left facial droop (chronic) Neck: supple, trachea midline Heart: RRR Lungs: faint left basilar crackles, otherwise clear Abdomen: soft, obese, NT, +BS Extremities: radial pulses intact, +fistula in LUE w/ palpable thrill Skin: a few scabbed areas on left upper chest but no significant erythema or warmth Neurologic: moving all extremities, no dysarthria, oriented x 3 Results & Data Results & Data Vital Signs (Past 12 Hours) Vital Signs Temp Pulse Resp BP Pulse Ox O2 Del Method 06/02/23 08:02 Room Air 06/02/23 08:00 70 06/02/23 07:41 36.5 C 72 18 120/68 96 Room Air Laboratory Results Laboratory Results - last 24 hr 06/02/23 08:09 WBC 5.12 RBC 2.42 L Hgb 7.5 L Hct 23.7 L MCV 97.9 MCH 31.0 MCHC 31.6 L RDW Std Deviation 51.1 H RDW Coeff of [place] 14.2 Plt Count 127 L MPV 9.0 L Immature Gran % (Auto) 0.2 Neut % (Auto) 56.3 Lymph % (Auto) 19.3 White % (Auto) 14.6 Eos % (Auto) 8.6 Baso % (Auto) 1.0 Neut # (Auto) 2.88 Lymph # (Auto) 0.99 L White # (Auto) 0.75 H Eos # (Auto) 0.44 Baso # (Auto) 0.05 Immature Gran # (Auto) 0.01 RBC Morphology Unremarkable Sodium 139 Potassium 3.7 Chloride 96 L Carbon Dioxide 32 Anion Gap 11 BUN 38 H Creatinine 6.80 H* Est Cr Clr Drug Dosing 9.3 Est GFR ( Amer) 6.7 Est GFR (Non-Af Amer) 5.8 BUN/Creatinine Ratio 5.6 L Glucose 122 H Calcium 6.4 L Phosphorus Pending Magnesium 1.9 Total Bilirubin 0.5 AST 15 ALT 9 Alkaline Phosphatase 37 Troponin I High Sens 6.6 Total Protein 5.8 L Albumin 3.7 Globulin 2.1 L Albumin/Globulin Ratio 1.8 TSH 59.278 H Free T4 Pending Diagnostic Findings Chest X-Ray 06/02/23 08:02 XR chest 1V portable HISTORY: weakness COMPARISON: Chest 03/09/2023. FINDINGS: No pneumothorax. No pleural effusions. The heart is mildly enlarged. There are low lung volumes. This progressive interstitial/vascular thickening consistent with mild pulmonary edema. No new focal lung consolidations. A right jugular Port-A-Cath terminates in the SVC. No acute fractures. IMPRESSION: Interval progression of the cardiomegaly and mild interstitial pulmonary edema. ACT 112: Negative or not required by law. Electronically signed by: Jesus Alberto Hernández M.D. 06/02/2023 8:52 AM Medications Administered Discontinued Medications Calcium Gluconate () 1,000 mg in 60 mls @ 240 mls/hr IV NOW STA Stop: 06/02/23 09:58 Last Admin: 06/02/23 10:11 Dose: 240 mls/hr Documented By: ARS Supervising Physician Co-Signing Physician Notes I have seen and examined the patient and have discussed the case with the provider above. I have reviewed the advanced practitioner's documentation, and I agree with, and take responsibility for that plan of care. 67-year-old female on to hemodialysis presents as a referral from her credit intern for low calcium. Patient reports adherence with her medications which include calcium acetate, Gleevec, renal caps and levothyroxine. She has a history of thyroidectomy/parathyroidectomy which is likely playing a role here. She has been mention intermittent loose stool for the past 2 weeks but no fevers chills, shortness of breath pain or significant new swelling. She has chronic lower extremity swelling in her left leg and there is no evidence of edema today on exam. She denies any exercise intolerance and is able to walk up stairs. She ambulates independently at baseline per her reports. She does have a history of Butt's palsy with left-sided facial droop but denies a history of stroke. History is otherwise noted above. On exam she is hemodynamically stable and afebrile and oxygenating well on room air. She is answering questions appropriately. She is undergoing hemodialysis during this examination. Pulmonary exam reveals lungs are clear to auscultation throughout. Cardiac exam reveals S1-S2 heard with regular rate and rhythm and no murmurs gallops or rubs. No other significant findings. There is a fistula that is accessed in the left upper extremity. Workup today includes a CBC revealing a hemoglobin drop to 7.5 from 11.8 on March 16, 2023. Nephrology is aware of this and is administering Epogen. Denies any symptoms from anemia. She does admit to fatigue but this may also be related to her TSH 60. Notably her TSH was 50 last year. Creatinine is elevated to 6.8 and calcium is 6.4 with a Phos of 5.9 and mag of 1.9. Otherwise no significant electrolyte abnormalities. She does have some mild interstitial pulmonary edema on chest x-ray but has no acute work of breathing, hypoxia, and no history of increased shortness of breath with exertion or other signs or symptoms of heart failure per se. She does have a history as noted above missed dialysis session this month. Hypocalcemia status post thyroidectomy/parathyroidectomy ESRD on hemodialysis Surgical hypothyroidism GIST She is already been seen by neuro nephrology with a plan to address her need for dialysis, anemia and electrolytes. Hemoglobin is low so we will give 20,000 units of Procrit today. Given her K is 3.7 and low calcium noted above she will get a 2K/3 Ca bath with 1500 mg of Tums at bedtime tonight. Vitamin D and PTH levels are pending. Continue PhosLo and Synthroid per home regimen. Labs in AM. Expect patient to stay 1 to 2 days. DO Terence (3) Anemia in chronic kidney disease Chronic kidney disease stage: on chronic dialysis Qualified Code(s): N18.6 - End stage renal disease; D63.1 - Anemia in chronic kidney disease; Z99.2 - Dependence on renal dialysis (4) Diarrhea Diarrhea type: unspecified type Qualified Code(s): R19.7 - Diarrhea, unspecified
[2023-06-02 10:21] LABS: T4 Free Thyroxine 0.75 ng/dl (0.61-1.60)
[2023-06-02 10:40] LABS: Phosphorus 5.9 mg/dl (2.5-4.9)
[2023-06-02] MEDS ORDERED: SODIUM CHLORIDE 0.9% 1,000 ML IV PRN (10:48)
--- NOTE | 2023-06-02 11:47 | Nephrology Consultation ---
Date of Consultation June 02, 2023 Assessment & Plan (1) ESRD (end stage renal disease) on dialysis: Will do dialysis today. 4hrs and take 3-4 kilo as tolerated. She does have some Pulm congestion and missed HD last monday. has good AVF and BP is fine. Hgb is low so will give 64213 units procrit. K is 3.7 but still do 2k and 3 Ca++ bath today for low Ca++. She has h/o High K in the past (2) Hypocalcemia: related with ESRD and her parathyroidectomy status. was being adjusted outpt by her dialysis unit. Defer mainly to them as this is more outpt management. do 3 Ca++ bath today. Add TUMS 1500 bedtime Continue PhosLo she takes at home. Check Vit D and PTH level also History of Present Illness Reason for Consultation: ESRD on Dialysis admitted for Hypocalcemia History of Present Illness 67/F with ESRD on HD--Debra Higgins-- s/p renal transplant failure, COPD, chronic hypoxic resp failure, sleep apnea, gastric GIST tumor, HTN, pulmonary HTN, GERD, dyslipidemia, thyroid cancer s/p thyroidectomy/parathyroidectomy was referred to the ED today due to low calcium on lab work from four days ago. Pt is on HD 3 days per week - // - and is due for HD today. last HD monday. She used to be on TUMS for Low Ca through dialysis before but then was stopped. also gets Calcitriol three times a week. She has some leg cramping but notes this is not a new issue. She notes intermittent diarrhea for the last 2-3 weeks. She has been taking Imodium for this, which helps temporarily but then the diarrhea recurs. She has associated urgency and incontinence at times but no hematochezia. She does not recall any recent antibiotics but does have a hx of C. diff. She was also noted to have worsened anemia since her last admission. Pt denies overt blood loss, specifically no epistaxis, gingival bleeding, hematuria. Denies recent illness - no fevers, chills, URI symptoms. ROS---See HPI. 12 Systems reviewed and is otherwise negative Physical Exam Physical Exam: General: awake, alert, NAD. Normal speech HEENT: moist oral mucosa Neck: supple, trachea midline. No JVD Heart: RRR Lungs:b/l clear. Limited exam. Abdomen: soft, obese, NT, +BS Extremities: +fistula in LUE w/ palpable thrill. No LE edema Neurologic: moving all extremities, no dysarthria, oriented x 3 Allergies Allergy/AdvReac Type Severity Reaction Status Date / Time levofloxacin AdvReac Severe C-DIFF Verified 06/02/23 10:43 Home Medications Medication Instructions Recorded Confirmed Type aspirin 81 mg chewable tablet 81 mg PO QAM 04/23/18 06/02/23 History gabapentin 100 mg capsule 100 mg PO TID 04/23/18 06/02/23 History magnesium oxide 400 mg PO QAM 03/08/22 06/02/23 History amlodipine 5 mg tablet 5 mg PO BID 07/21/22 06/02/23 History levothyroxine 100 mcg tablet 100 mcg PO QAM 07/21/22 06/02/23 History metoprolol tartrate 25 mg tablet 37.5 mg PO BID 07/21/22 06/02/23 History ondansetron HCl 8 mg tablet 8 mg PO TID PRN PRIOR TO 07/21/22 06/02/23 History CHEMOTHERAPY MEDS prochlorperazine maleate 10 mg 10 mg PO Q6H PRN NAUSEA/VOMITING 07/21/22 06/02/23 History tablet (Compazine) triamcinolone acetonide 0.1 % 1 applic topical BID PRN Rash 07/21/22 06/02/23 History topical cream vitamin B complex and vitamin C 1 cap PO DAILY 07/21/22 06/02/23 History no.20-folic acid 1 mg capsule ([place] Caps) imatinib 100 mg tablet (Gleevec) 200 mg PO QPM 09/22/22 06/02/23 History calcium acetate(phosphat bind) 667 1,334 mg PO TID 10/20/22 06/02/23 History mg capsule carboxymethylcellulose sodium 1 drp ophthalmic (eye) 6XD PRN dry 03/09/23 06/02/23 Rx (Refresh Contacts eye drops) eye(s) #12 mL hydralazine 25 mg tablet 25 mg PO BID 06/02/23 06/02/23 History omeprazole 40 mg capsule,delayed 40 mg PO DAILY 06/02/23 06/02/23 History release oxycodone-acetaminophen 5 mg-325 1 tab PO Q8H PRN Pain 06/02/23 06/02/23 History mg tablet Patient History Medical History Mediastinal mass ongoing work-up with [facility] thoracic medicine and heme/onc Hypocalcemia Secondary hyperparathyroidism Neck pain h/o UE paresthesias; pt states neck pain and upper extremity abnormal symptoms>fully resolved Thyroid nodule s/p thyroidectomy COVID-19 hx-01/29/22-not hospitalized-symptoms fully resolved Pulmonary hypertension COPD (chronic obstructive pulmonary disease) stable per pt, no longer using supplemental oxygen-states home pulse ox readings are consistently 97% or greater-pt states provider is aware Abnormal stress test 01/2021 (reversible anterior and basal lateral defect consistent with ischemia vs soft tissue attenuation artifact) per [facility] cardio records, plan for medical management and consideration for DSE at 03/2021 appt; final determination per [facility] cardio is recommendation for diagnostic cardiac catheterization not yet scheduled by patient; now advised risk > benefit per [facility] cardio Limb alert care status left arm Port-A-Cath in place has not used in a long time 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 At least 1 of the peritoneal dialysis catheters had to be removed because of peritonitis..." Failed kidney transplant 2016 Palpitations AV fistula left upper arm (functioning), also one to left wrist, but does not function properly Chronic back pain GERD (gastroesophageal reflux disease) controlled, stable per pt Migraine Sleep apnea severe per [facility] records, no device currently > has apt soon to see about getting back on device Hypothyroidism s/p thyroidectomy at [facility] 06/28/22 Anemia in chronic kidney disease HLD (hyperlipidemia) HTN (hypertension) controlled, stable per pt ESRD (end stage renal disease) on dialysis MWF at [facility] in [place] Surgical History Hx of total thyroidectomy 06/28/22, [facility]>3 1/2 of parathyroid removed, also removed nodules that were "non cancerous" History of surgery hx perm cath insertion & removal History of appendectomy H/O cystoscopy History of laparoscopy History of bilateral tubal ligation History of kidney transplant 08/28/2016 @ [facility] [place] (right side) functions at only 10%--d/t ESRD > follows with dr at [facility] History of cholecystectomy History of section x1 History of colonoscopy History of esophagogastroduodenoscopy (EGD) History of tooth extraction History of wisdom tooth extraction History of tonsillectomy and adenoidectomy Family History Grandmother (Paternal) Family history of diabetes mellitus Grandmother (Maternal) Family history of diabetes mellitus Family hx of colon cancer Mother Family hx of colon cancer Other No family history of adverse response to anesthesia Social History Smoking Status: Never smoker Tobacco Type: Cigarettes Second Hand Exposure: No; Do You Dip or Chew Tobacco: No; Hx Alcohol Use: Yes Hx Substance Use: No Preferred Language: South African Communication Ability: Effective Cost Accountant Required: No Beliefs That Will Affect Care: None marital status: Current Living Situation: Spouse Current Living Situation Comment: lives at home w spouse How many Children do You have: 1 Feels Safe at Home: Yes Assistive Devices: None Results & Data Vital Signs (Past 12 Hours) Vital Signs Temp Pulse Pulse Resp BP BP Pulse Ox 06/02/23 11:24 77 19 119/68 96 06/02/23 09:37 72 14 122/70 99 06/02/23 08:02 06/02/23 08:00 70 06/02/23 07:41 36.5 C 72 18 120/68 96 O2 Del Method 06/02/23 11:24 06/02/23 09:37 06/02/23 08:02 Room Air 06/02/23 08:00 06/02/23 07:41 Room Air
--- NOTE | 2023-06-02 12:09 | Electrocardiogram Report ---
Test Reason : Blood Pressure : / mmHG Vent. Rate : 068 BPM Atrial Rate : 068 BPM P-R Int : 160 ms QRS Dur : 080 ms QT Int : 482 ms P-R-T Axes : 025 -01 001 degrees QTc Int : 512 ms Normal sinus rhythm Low voltage QRS Prolonged QT Abnormal ECG When compared with ECG of 16-MAR-2023 06:27, Minimal criteria for Anterior infarct are now Present Confirmed by Romeo Gonzalez ([id number]) on 06/02/2023 12:08:40 PM Referred By: Confirmed By:Fabrizio Gonzalez
[2023-06-02] MEDS: CALCIUM ACETATE 667 MG CAP/TAB PO SCH (12:56)
[2023-06-02] MEDS ORDERED: CARBOXYMETHYLCELLULOSE SODIUM OP PRN (13:18)
[2023-06-02] MEDS ORDERED: CALCIUM ACETATE 667 MG CAP/TAB PO SCH (14:00)
[2023-06-02] MEDS: EPOETIN ALFA 20,000 UNITS/ML VIAL IV ONE (15:54)
--- OUTSIDE RECORDS SUMMARY | 2023-06-02 16:18 | External Medical Summary | Summary of Care ---
Author Name Unknown Organization [facility] Address [address] [place] [address] Phone [phone] Care Team Providers Care Health Plan Specialist Name Role Phone Jameel Reyna DO Primary Care Provider [phone] Reason for Visit * Reason Onset Date Comments Appointment 05/09/2023 Encounter Details Date Type Department Care Team (Late st Contact Info) Description 05/09/2023 Telephone Pharmacy Hematology Oncology [facility] [address] [place] [address] Christy Cazares, [facility] [address] [place] [address] Appointment Allergies Active Allergy Reactions Criticality Noted Date Comments Levofloxacin Diarrhea High 06/14/2021 Other reaction(s): C-DIFF documented as of this encounter (statuses as of 05/09/2023) Medications Medication Sig Dispensed Refills Start Date End Date Status Magnesium Oxide 400 (240 Mg) MG Tablet Take 1 Tablet by mouth in the morning. 0 Active aspirin 81 MG chewable tablet Take 1 Tablet by mouth in the morning. with food.. 100 Tab 5 08/13/2017 Active Calcium Acetate (Phos Binder) 667 MG [...] THE DAY OR OTHER MEDICATIONS 90 Tablet 07/21/2022 07/21/19 24 Active Compressor NebulizerIndication s:COPD, group B, by GOLD 2017 classification ([facility]) Inhale via nebulizer. Use as directed. 1 Each 1 09/29/2022 Active Albuterol Sulfate (2.5 MG/3ML) 0.083% Inhalation Nebulization Solution (Proventil)Indicati ons:COPD, group B, by GOLD 2017 classification ([facility]) Inhale 1 Vial via nebulizer every 4 hours as needed for Wheezing. 120 mL 09/29/2022 Active Proventil HFA 108 (90 Base) MCG/ACT Inhalation Aerosol SolutionIndications :COPD, group B, by GOLD 2017 classification ([facility]) Inhale 2 Puffs by mouth in the morning and 2 Puffs at noon and 2 Puffs in the evening and 2 Puffs before bedtime. 18 g 09/29/2022 Active hydrALAZINE HCl 25 MG Oral Tablet (Apresoline)Indicat ions:HTN, goal below 140/90,Hypertensive kidney disease with chronic kidney disease stage V ([facility]) Take 1 Tablet by mouth in the morning and 1 Tablet in the evening. 200 Tablet 10/06/2022 Active Gabapentin 100 MG Oral Capsule (Neurontin)Indicati ons:Cramp of both lower extremities Take 1 Capsule by mouth in the morning and 1 Capsule at noon and 1 Capsule before bedtime. 300 Capsule 10/06/2022 Active Omeprazole 40 MG Oral Capsule Delayed Release (PriLOSEC)Indicatio ns:Gastrointestinal stromal tumor (GIST) of stomach ([facility]) Take 1 Capsule by mouth in the morning. 100 Capsule 10/06/2022 Active Polyethylene Glycol 3350 17 GM/SCOOP Oral Powder (Miralax) Take 17 g by mouth in the morning and 17 g before bedtime. Dissolve one heaping tablespoon in 8 ounces of water or juice.. 255 g 0 10/19/2022 Active Docusate Sodium 100 MG Oral Capsule Take 1 Capsule by mouth in the morning and 1 Capsule before bedtime. 60 Capsule 11 10/19/2022 Active Ondansetron HCl [...] (Percocet)Indicatio ns:Chronic midline low back pain without sciatica Take 1 Tablet by mouth every 8 hours as needed for Pain, Severe. 45 Tablet 0 04/07/2023 Active Triamcinolone Acetonide 0.1 % External Cream (Aristocort)Indicat ions:Dermatitis Apply topically to affected area 2 times a day. 453.6 g 0 04/26/2023 Active Imatinib Mesylate 100 MG Oral Tablet (Gleevec) Take 2 tablets by mouth in the morning. 60 Tablet 5 04/27/2023 Active documented as of this encounter (statuses as of 05/09/2023) Active Problems Problem Noted Date Diagnosed Date Persistent migraine aura wit hout cerebral infarction and without status migrainosus, not intractable 04/07/2023 Hypertensive chronic kidney disease with stage 5 chronic kidney disease or end stage renal disease 04/07/2023 Secondary hyperparathyroidism of renal origin Dilated cbd, acquired 10/06/2022 History of thyroid [...] obstructive sleep apnea 01/20/2017 Nocturnal hypoxemia 01/20/2017 Kidney replaced by transplant 09/02/2016 Sigmoid diverticulosis 12/02/2015 HTN, goal below 140/90 04/01/2014 Dyslipidemia, goal LDL below 100 07/20/2011 Uterine leiomyoma 05/25/2011 Esophageal reflux 08/19/2010 Anemia of chronic renal failure 06/08/2010 ADVANCE DIRECTIVE INFORMATION 10/13/2006 Overview: No, Advance Directive brochure offered , patient declined. 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 documented as of this encounter (statuses as of 05/09/2023) Resolved Problems Problem Noted Date Diagnosed Date Resolved Date Chronic obstructive pulmonary disease 04/07/2023 04/07/2023 Hypothyroidism 04/07/2023 04/26/2023 Mediastinal mass 10/06/2022 12/27/2022 Chronic obstructive pulmonary [...] 20mg daily recycle-high risk protocol taper dose Need for prophylactic immunotherapy 09/06/2016 04/26/2023 CKD (chronic kidney disease) stage V requiring [...] ge IV (GFR 15-29 ml/min) 05/24/2005 05/08/2020 Hyperparathyroidism, secondary renal 04/27/2004 04/26/2023 Diarrhea 10/28/2009 documented as of this encounter (statuses as of 05/09/2023) Immunizations Name Administration Dates Next Due COVID-19 mRNA, LNP-s, No Pre serve, 2-Dose Series (mSnap) 01/09/2021,06/03/2020,05/13/2020 COVID-19, MRNA-LNP, 23-24, P F, 30 MCG/0.3 mL, 12 YRS AND ABOVE, IM (Imagekind-Comirnat) 12/26/2022 HepA Inact/HepB Recomb>=18yrs old 07/15/2011 PPD 03/17/2015,11/26/2013,06/10/2011 Pneumococcal Conjugate Vacc, 13 Valent (Prevnar) 03/08/2019 Pneumococcal Polysaccharide PPV23 (Pneumovax) 12/20/2019,07/15/2011 RSV Vac., Bivalent, Perfusio n F, Pf,0.5 Ml (Abrysvo) 04/14/2023 Seasonal Influenza, PF, 6 M & above, [...] Years Used Date Smoking Tobacco: Former Cigarettes 978 - 2002 Passive Smoke Exposure: Past Smokeless Tobacco: Never Comments:Quit 10 years ago Alcohol Use Standard Drinks/Week Comments No 0 (1 standard drink = 0.6 oz pur e alcohol) PHQ-2 Answer Date Recorded PHQ Adult Total Score 0 04/07/2023 Hunger Vital Sign Answer Date Recorded Within the past 12 months, y ou worried that your food would run out before you got the money to buy more. Never true 04/07/19 24 Within the past 12 months, t he food you bought just didn't last and you didn't have money to get more. Never true 04/07/2023 Sex and Gender Information Value Date Recorded [...] encounter Miscellaneous Notes * Telephone Encounter - Christy Cazares RPh - 05/09/2023 3:26 PM EST Per OV 04/07/23, "RTC in 3 months with physician with cbc/diff and cmp for scan review" Scheduling: Please call pt to schedule provider follow up to review scans that are scheduled 07/07/23. Thanks documented in this encounter Plan of Treatment Upcoming Encounters Date Type Department Care Team (Latest Contact Info) Description 05/10/2023 9:30 AM EST Pharmacy Pharmacy Hematology Oncology [address] [address] [facility] [place] [facility] Hem/Onc [address] [place] [id number] 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)* 05/16/2023 3:00 PM EST Office Visit Family Practice [address] [facility] [address] [place] [address] Jameel Reyna, [address] [place] [address] 06/20/2023 2:20 PM EDT Office Visit Family Practice [address] [facility] [address] [place] [phone] Jameel Reyna, [address] [place] [address] 06/21/2023 9:30 AM EDT Pharmacy Pharmacy Hematology Oncology [address] [place] [address] [facility] [place] [facility] [address] [facility] [address] 07/07/2023 8:00 AM EDT Imaging Radiology [facility] [address] [facility] [place] [address] [facility] [place] [address] 07/19/2023 2:15 PM EDT Office Visit Hematology/Oncology [facility] [place] [address] [place] [id number] Leoncio Xavier MD [address] [place] [address] Scheduled Procedures Name Priority Associated Diagnoses Date/Ti me COLONOSCOPY FLEXIBLE PROXIMAL DIAGNOSTIC Recall History of colon polyps Health Maintenance Due Date Last Done Comments Alpha-1 Antitrypsin 11/21/1975 *COPD SEVERITY VERIFIED BY PFT 02/01/2022 Mammogram 03/15/2023 03/15/2022, 05/12, 10/01/2014, Additional history exists TSH 09/11/2023 09/10/2022, 08/11, 07/19/2022, Additional history exists O2 ASSESSMENT COMPLETED IN PAST YEAR FOR COPD 12/16/2023 12/15/2022 Depression Screening 04/07/2024 04/07/2023 COLONOSCOPY-EVERY 3 YRS AGES 18-100 05/14/2024 05/14/2021, 01/28/2016, 01/10/2014, Additional history exists Pneumococcal Vaccine: 65+ Years (4 of 4 - PPSV23 or PCV20) 12/19/2024 12/20/2019, 03/08/2019, 07/15/2011 Diabetes Screening 05/08/2026 05/08/2023, 1 , 01/19/2023, Additional history exists Lipid Panel 06/03/2027 06/02/2022, 12/12, 12/27/2019, Additional history exists DTaP,Tdap,and Td Vaccines (3 - Td or Tdap) 01/09/2030 01/10/2020, 07/31/2007 COLONOSCOPY-EVERY 2 YRS AGES 18-100 Discontinued 05/14/2021, 01/28/2016, 01/10/2014, Additional history exists Cervical Cancer Screening Discontinued Pap Smear Discontinued 06/08/2021, 05/12, 10/29/2014, Additional history exists Zoster Vaccines Completed 08/02/2022, 03/15/2022 Diabetic Eye Exam Discontinued 10/17/2022, 02/15/2022 Influenza Vaccine (FLU shot) Completed 11/29/2022, 12/25/2021, 12/01/2020, Additional history exists COVID-19 Vaccine Completed 12/26/2022, , 06/03/2020, Additional history exists GARDASIL-HPV IMMUNIZATION SERIES Aged Out No longer eligible based on patient's age to complete this topic HPV/Co-Test Discontinued MENINGOCOCCAL (MENACTRA/MENVEO) Aged Out No longer eligible based on patient's age to complete this topic documented as of this encounter Medical Devices Implanted Type Area Senior Dot Net Developer Device Identifier Shelf Expiration Date Model / Serial / Lot Port Pwr Mri Isp Profile - [id number] Implanted:Qty: 1 on 01/22/2019 by Bebeto Canseco DO at OR [facility] Right: Chest CR BARD : PERIPHERAL VASCULAR 02/10/2020 [id number] / / [id number] documented as of this encounter Advance Directives [...] the patient have Health Care Power of Missile Inspector? No Full Code 10/12/2016 3:15 PM 10/14/2016 6:57 PM Question Answer Comments Discussion of Advance Directives occurred with: Not Discussed Does the patient have a Living Will? No Does the patient have Health Care Power of Missile Inspector? No Full Code 08/28/2016 7:34 AM 09/02/2016 8:09 PM Question Answer Comments Discussion of Advance Directives occurred with: Not Discussed Does the patient have a Living Will? No Does the patient have Health Care Power of Missile Inspector? No Full Code 06/14/2013 8:04 PM 06/16/2013 7:32 PM This or annmarie reflects the patients wishes and were consensually agreed upon. Question Answer Comments Discussion of Advance Directives occurred with: Patient Does the patient have a Living Will? No Does the patient have Health Care Power of Missile Inspector? No Care Teams Health Plan Specialist Relationship Specialty Start Date End Date Jameel Reyna DO [address] [place] [address] PCP - General Internal Medicine 03/15/22 documented as of this encounter
--- OUTSIDE RECORDS SUMMARY | 2023-06-02 16:18 | External Medical Summary | Summary of Care ---
Author Name Unknown Organization [facility] Address [address] [facility] [place] [address] Phone [phone] Care Team Providers Care Producer Assistant Name Role Phone Jameel Reyna DO Primary Care Provider [phone] Reason for Visit * Reason Onset Date Comments FYI 02/13/2023 Encounter Details Date Type Department Care Team (Late st Contact Info) Description 02/13/2023 Telephone Hematology/Oncology [facility] [address] [place] [phone] Leoncio Xavier MD [address] [place] [address] FYI (/) Allergies Active Allergy Reactions Criticality Noted Date Comments Levofloxacin Diarrhea High 06/14/2021 Other reaction(s): C-DIFF documented as of this encounter (statuses as of 05/15/2023) Medications Medication Sig Dispensed Refills Start Date [...] CAPSULE WITH SNACKS 720 Capsule 4 08/05/2022 05/25/20 24 Active Levothyroxine Sodium 100 MCG Oral Tablet (Levoxyl)Indication s:Postoperative hypothyroidism TAKE 1 TABLET BY MOUTH DAILY AT LEAST 30 MINUTES PRIOR TO FIRST MEAL OF THE DAY OR OTHER MEDICATIONS 90 Tablet 07/21/2022 07/21/19 24 Active Compressor NebulizerIndication s:COPD, group B, by GOLD 2017 classification ([facility]) Inhale via nebulizer. Use as directed. 1 Each 1 09/29/2022 Active Albuterol Sulfate (2.5 MG/3ML) 0.083% Inhalation Nebulization Solution (Proventil)Indicati ons:COPD, group B, by GOLD 2017 classification ([facility]) Inhale 1 Vial via nebulizer every 4 hours as needed for Wheezing. 120 mL 09/29/2022 Active Proventil HFA 108 (90 Base) MCG/ACT Inhalation Aerosol SolutionIndications :COPD, group B, by GOLD 2017 classification ([facility]) Inhale 2 Puffs by mouth in the morning and 2 Puffs at noon and 2 Puffs in the evening and 2 Puffs before bedtime. 18 g 3 09/29/2022 Active hydrALAZINE HCl 25 MG Oral Tablet (Apresoline)Indicat ions:HTN, goal below 140/90,Hypertensive kidney disease with chronic kidney disease stage V ([facility]) Take 1 Tablet by mouth in [...] ns:Gastrointestinal stromal tumor (GIST) of stomach ([facility]) Take 1 Capsule by mouth in [...] the morning. 200 Tablet 3 12/19/2022 Active documented as of this encounter (statuses as of 05/15/2023) Active Problems Problem Noted Date Diagnosed Date [...] as of this encounter (statuses as of 05/15/2023) Resolved Problems Problem Noted Date Diagnosed Date [...] as of this encounter (statuses as of 05/15/2023) Immunizations Name Administration Dates Next Due COVID-19 mRNA, LNP-s, No Pre serve, 2-Dose Series ([employer]) 01/09/2021,06/03/2020,05/13/2020 COVID-19, MRNA-LNP, 23-24, P F, 30 MCG/0.3 mL, 12 YRS AND ABOVE, IM ([facility]) 12/26/2022 HepA Inact/HepB Recomb>=18yrs old 07/15/2011 PPD [...] Date Smoking Tobacco: Former Cigarettes 1 25 1 978 - 2002 Passive Smoke Exposure: Past [...] encounter Miscellaneous Notes * Telephone Encounter - Esther Mercado RN - 02/13/2023 2:07 PM EST Already noted in other encounter. * Telephone Encounter - Claudia Wong OSA - 02/13/2023 1:42 PM EST Patient is calling to let Dr Xavier know that she has decided not to do hospice and will continue her meds as planned FYI documented in this encounter Plan of Treatment Upcoming Encounters Date Type Department Care Team (Late st Contact Info) Description 05/30/2023 3:40 PM EDT Office Visit Family [address] [place] [address] Jameel Reyna, [address] [place] [address] 06/20/2023 2:20 PM EDT Office Visit [facility] [address] [facility] [address] [place] [phone] Jameel Reyna, [address] [place] [address] 06/21/2023 9:30 AM EDT Pharmacy Pharmacy Hematology Oncology [facility] [address] [place] [address] [facility] [facility] Hem[facility]Onc [address] [place] [address] 07/07/2023 8:00 AM EDT Imaging [facility] [address] [facility] [address] [place] [address] 07/19/2023 2:15 PM EDT Office Visit Hematology/Oncology [facility] [place] [address] [place] [phone] Leoncio Xavier MD [address] [place] [address] Scheduled Procedures Name Priority Associated Diagnoses Date/Ti [...] this encounter Medical Devices Implanted Type Area Endless Steamer Tender Device Identifier Shelf Expiration Date Model / Serial / Lot Port Pwr Mri Isp Profile - [id number] Implanted:Qty: 1 on 01/22/2019 by Bebeto Canseco DO at OR [facility] Right: Chest CR BARD : PERIPHERAL VASCULAR 02/10/2020 [id number] / / [id number] documented as of this encounter Advance Directives [...] the patient have Health Care Power of Heavy Equipment Operating Engineer? No Full Code 10/12/2016 3:15 PM 10/14/2016 6:57 PM Question Answer Comments Discussion of Advance Directives occurred with: Not Discussed Does the patient have a Living Will? No Does the patient have Health Care Power of Heavy Equipment Operating Engineer? No Full Code 08/28/2016 7:34 AM 09/02/2016 8:09 PM Question Answer Comments Discussion of Advance Directives occurred with: Not Discussed Does the patient have a Living Will? No Does the patient have Health Care Power of Heavy Equipment Operating Engineer? No Full Code 06/14/2013 8:04 PM 06/16/2013 7:32 PM This or annmarie reflects the patients wishes and were consensually agreed upon. Question Answer Comments Discussion of Advance Directives occurred with: Patient Does the patient have a Living Will? No Does the patient have Health Care Power of Heavy Equipment Operating Engineer? No Care Teams Producer Assistant Relationship Specialty Start Date End Date Jameel Reyna DO [address] [place] [address] PCP - General Internal Medicine 03/15/22 documented as of this encounter
--- OUTSIDE RECORDS SUMMARY | 2023-06-02 16:18 | External Medical Summary | Summary of Care ---
Author Name Unknown Organization [facility] Address [address] [facility] [address] Phone [phone] Care Team Providers Care Textile Chemist Name Role Phone Jameel Reyna DO Primary Care Provider Encounter Details Date Type Department Care Team (Late st Contact Info) Description 05/09/2023 Orders Only Family Practice [address] [facility] [address] [place] [address] Jameel Reyna DO [address] [place] [address] Allergies Active Allergy Reactions Criticality [...] s:COPD, group B, by GOLD 2017 classification ([facility]) Inhale via nebulizer. Use as directed. 1 Each 1 09/29/2022 Active Albuterol Sulfate (2.5 MG/3ML) 0.083% Inhalation Nebulization Solution (Proventil)Indicati ons:COPD, group B, by GOLD 2017 classification ([facility]) Inhale 1 Vial via nebulizer every 4 hours as needed for Wheezing. 120 mL 09/29/2022 Active Proventil HFA 108 (90 Base) MCG/ACT Inhalation Aerosol SolutionIndications :COPD, group B, by GOLD 2017 classification ([facility]) Inhale 2 Puffs by mouth in the morning and 2 Puffs at noon and 2 Puffs in the evening and 2 Puffs before bedtime. 18 g 3 09/29/2022 Active hydrALAZINE HCl 25 MG Oral Tablet (Apresoline)Indicat ions:HTN, goal below 140/90,Hypertensive kidney disease with chronic kidney disease stage V ([facility]) Take 1 Tablet by mouth in the [...] (PriLOSEC)Indicatio ns:Gastrointestinal stromal tumor (GIST) of stomach ([facility]) Take 1 Capsule by mouth in the [...] mRNA, LNP-s, No Pre serve, 2-Dose Series (N[employer] Star) 01/09/2021,06/03/2020,05/13/2020 COVID-19, MRNA-LNP, 23-24, P F, 30 [...] Care Team (Late st Contact Info) Description 05/10/2023 9:30 AM EST Pharmacy Pharmacy Hematology Oncology [facility] [address] [place] [address] [facility] Hem/Onc [address] [place] [address] 05/16/2023 3:00 PM EST Office Visit Family Practice [address] [place] [address] [address] [place] [phone] Jameel Reyna, [address] [place] [address] 06/20/2023 2:20 PM EDT Office Visit Family Practice [address] [place] [address] [address] [place] [phone] Jameel Reyna, [address] [place] [address] 07/07/2023 8:00 AM EDT Imaging Radiology [address], [place] [address] [facility] [place] [address] Scheduled Procedures Name Priority Associated Diagnoses Date/Ti [...] 12/19/2024 12/20/2019, 03/08/2019, 07/15/2011 Diabetes Screening 03/10/2026 05/08/2023, 1 , 01/19/2023, Additional history exists [...] this encounter Medical Devices Implanted Type Area Loom Operator Device Identifier Shelf Expiration Date Model / Serial / Lot Port Pwr Mri Isp Profile - [id number] Implanted:Qty: 1 on 01/22/2019 by Bebeto Canseco DO at OR [facility] Right: Chest CR BARD : PERIPHERAL VASCULAR 02/10/2020 [id number] / / [id number] documented as of this encounter Procedures Procedure Name Priority Date/Time Associated Diagnosis Comments CHEMISTRY-OUTSIDE Routine 05/08/2023 documented in this encounter Results * (ABNORMAL) CHEMISTRY-OUTSIDE (05/08/2023) Not all results display below - see scan for full detail OUTSIDE LAB (SEE SCANNED REPORT) Comment:ED LABS - FLU A OR B , CBCD, BMP CREATININE-OUTSID E LAB 5.85(A) 0.55 - 1.02 MG/DL OUTSIDE LAB (SEE SCANNED REPORT) EGFR-OUTSIDE LAB 8 ML/MIN OUT SIDE LAB (SEE SCANNED REPORT) POTASSIUM-OUTSIDE LAB 5.1 3.5 - 5.1 MMOL/L OUTSIDE LAB (SEE SCANNED REPORT) GLUCOSE-OUTSIDE LAB 104 70 - 110 MG/DL OUTSIDE LAB (SEE SCANNED REPORT) HOURS FASTING OUTSID E LAB (SEE SCANNED REPORT) TRIGLYCERIDES-OUT SIDE LAB OUTSIDE LAB (SEE SCANNED REPORT) CHOLESTEROL-OUTSI DE LAB OUTSIDE LAB (SEE SCANNED REPORT) HDL-OUTSIDE LAB OUTS URMILA LAB (SEE SCANNED REPORT) CHOL/HDL RATIO-OUTSIDE LAB OUTSIDE LA B (SEE SCANNED REPORT) LDL (CALCULATED)-OUTS URMILA LAB OUTSIDE LAB (SEE SCANNED REPORT) LDL (DIRECT MEASURE)-OUTSIDE LAB OUTSIDE LAB (SEE SCANNED REPORT) HEMOGLOBIN, Z9H-SCKUBXA LAB OUTSIDE LAB (SEE SCANNED REPORT) PHOSPHORUS-OUTSID E LAB OUTSIDE LAB (SEE SCANNED REPORT) PTH-OUTSIDE LAB OUTS URMILA LAB (SEE SCANNED REPORT) MICROALBUMIN RATIO-OUTSIDE LAB OUTSIDE LA B (SEE SCANNED REPORT) PROTEIN, UA-OUTSIDE LAB OUTSIDE LAB (SEE SCANNED REPORT) HEMOGLOBIN-OUTSID E LAB 9.2(A) 12.0 - 16.0 G/DL OUTSIDE LAB (SEE SCANNED REPORT) 05/08/2023 Navid Aldridge MD LABORATORY OUTSIDE LAB (SEE SCANNED REPORT) documented in this encounter Advance Directives Latest [...] the patient have Health Care Power of Laundry Sorter? No Full Code 10/12/2016 3:15 PM 10/14/2016 6:57 PM Question Answer Comments Discussion of Advance Directives occurred with: Not Discussed Does the patient have a Living Will? No Does the patient have Health Care Power of Laundry Sorter? No Full Code 08/28/2016 7:34 AM 09/02/2016 8:09 PM Question Answer Comments Discussion of Advance Directives occurred with: Not Discussed Does the patient have a Living Will? No Does the patient have Health Care Power of Laundry Sorter? No Full Code 06/14/2013 8:04 PM 06/16/2013 7:32 PM This or annmarie reflects the patients wishes and were consensually agreed upon. Question Answer Comments Discussion of Advance Directives occurred with: Patient Does the patient have a Living Will? No Does the patient have Health Care Power of Laundry Sorter? No Care Teams Textile Chemist Relationship Specialty Start Date End Date Jameel Reyna DO [address] [place] [address] PCP - General Internal Medicine 03/15/22 documented as of this encounter
--- OUTSIDE RECORDS SUMMARY | 2023-06-02 16:18 | External Medical Summary | Summary of Care ---
Author Name Unknown Organization [facility] Address [address] [place] [address] Phone [phone] Care Team Providers Care Equipment Man Name Role Phone Jameel Reyna DO Primary Care Provider [phone] Reason for Visit * Reason Comments Medication Management Encounter Details Date Type Department Care Team (Late st Contact Info) Description 05/05/2023 9:30 AM [facility] Pharmacy Pharmacy Hematology Oncology [facility] [place] [address] [place], [place] [id number] [facility] [place] [facility] Hem/Onc [address] [place], [place] [phone] 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 Use as directed. 1 Each 1 09/29/2022 Active Albuterol Sulfate (2.5 MG/3ML) 0.083% Inhalation Nebulization Solution (Proventil)Indicati ons:COPD, group B, by GOLD 2017 classification ([facility]) Inhale 1 Vial via nebulizer every 4 hours as needed for Wheezing. 120 mL 09/29/2022 Active Proventil HFA 108 (90 Base) MCG/ACT Inhalation Aerosol SolutionIndications :COPD, group B, by GOLD 2017 classification ([facility]) Inhale 2 Puffs by mouth in the morning and 2 Puffs at noon and 2 Puffs in the evening and 2 Puffs before bedtime. 18 g 09/29/2022 Active hydrALAZINE HCl 25 MG Oral Tablet (Apresoline)Indicat ions:HTN, goal below 140/90,Hypertensive kidney disease with chronic kidney disease stage V ([facility]) Take 1 Tablet by mouth in [...] (PriLOSEC)Indicatio ns:Gastrointestinal stromal tumor (GIST) of stomach ([facility]) Take 1 Capsule by mouth in [...] as of this encounter (statuses as of 05/05/2023) Active Problems Problem Noted Date Diagnosed Date [...] as of this encounter (statuses as of 05/05/2023) Resolved Problems Problem Noted Date Diagnosed Date [...] as of this encounter (statuses as of 05/05/2023) Immunizations Name Administration Dates Next Due COVID-19 mRNA, LNP-s, No Pre serve, 2-Dose Series ([employer]) 01/09/2021,06/03/2020,05/13/2020 COVID-19, MRNA-LNP, 23-24, P F, 30 MCG/0.3 mL, 12 YRS AND ABOVE, IM ([facility]) 12/26/2022 HepA Inact/HepB Recomb>=18yrs old 07/15/2011 PPD [...] Used Date Smoking Tobacco: Former Cigarettes 978 2002 Passive Smoke Exposure: Past Smokeless Tobacco: [...] as of this encounter Progress Notes * Fide Rivas OSA - 05/05/2023 9:30 AM EST MEDICATION THERAPY MANAGEMENT IMATINIB TREATMENT PROGRESS NOTE Sonia Bernal [phone] Patient Phone Numbers Communication: Spoke to: Patient Treatment: Medication: Imatinib (Gleevec) Indication: GIST Dose: 200mg daily Administration: with food Start Date: 12/20/21 Primary Knitter Mechanic/Oncologist: Dr. Jigar Xavier Patient agreeable to have labs completed on 05/09 at [address]. Decline assistance with scheduling an appointment. Patient stated "they will take me" Will follow up on Monday05/10/23 for results. CHEYENNE Ortiz Small Animal Veterinarian Pharmacy Hematology Oncology Oral Chemotherapy Clinic Medication Therapy Disease Management [facility] 05/05/23 9:10 AM Time Spent on Encounter: < 5 minutes Encounter Group: Oncology Encounter Interventions Item Category: Oral Chemotherapy Imatinib Problem/Rationale: Safety: Needs additional monitoring - Medication Requires monitoring Pharmacist Intervention(s): Lab work requested Magnitude of Intervention: Monitoring with no interventions (Level 0) documented in this encounter Plan of Treatment Upcoming Encounters Date Type Department Care Team (Late st Contact Info) Description 05/09/2023 3:40 PM EST [facility] [address] [place] [phone] Jameel Reyna DO [address] [facility] [place] [address] 05/10/2023 9:30 AM EST Pharmacy Pharmacy Hematology Oncology [facility] [place] [address] [place] [address] [facility] [place] [facility] Hem/Onc [address] [place] [address] 06/20/2023 2:20 PM EDT Office Visit Family Practice [address], [place] [address] [place] [phone] Jameel Reyna, [address] [place] [address] 07/07/2023 8:00 AM EDT Imaging Radiology [facility] 1st [facility], [place] [address] [place] [address] Scheduled Procedures Name Priority Associated Diagnoses Date/Ti [...] this encounter Medical Devices Implanted Type Area Temporary Staff Accountant Device Identifier Shelf Expiration Date Model / Serial / Lot Port Pwr Mri Isp Profile - [id number] Implanted:Qty: 1 on 01/22/2019 by Bebeto Canseco DO at OR [facility] Right: Chest CR BARD : PERIPHERAL VASCULAR 02/10/2020 [id number] / / [id number] documented as of this encounter Visit Diagnoses [...] the patient have Health Care Power of Paint Dipper? No Full Code 10/12/2016 3:15 PM 10/14/2016 6:57 PM Question Answer Comments Discussion of Advance Directives occurred with: Not Discussed Does the patient have a Living Will? No Does the patient have Health Care Power of Paint Dipper? No Full Code 08/28/2016 7:34 AM 09/02/2016 8:09 PM Question Answer Comments Discussion of Advance Directives occurred with: Not Discussed Does the patient have a Living Will? No Does the patient have Health Care Power of Paint Dipper? No Full Code 06/14/2013 8:04 PM 06/16/2013 7:32 PM This or annmarie reflects the patients wishes and were consensually agreed upon. Question Answer Comments Discussion of Advance Directives occurred with: Patient Does the patient have a Living Will? No Does the patient have Health Care Power of Paint Dipper? No Care Teams Equipment Man Relationship Specialty Start Date End Date Jameel Reyna DO [address] [place] [address] PCP - General Internal Medicine 03/15/22 documented as of this encounter
--- OUTSIDE RECORDS SUMMARY | 2023-06-02 16:18 | External Medical Summary | Summary of Care ---
Author Name Unknown Organization [facility] Address [address] [place] [address] Phone [phone] Care Team Providers Care Cnc Machinist 2Nd Shift Name Role Phone Jameel Reyna DO Primary Care Provider [phone] Reason for Visit * Reason Onset Date Comments Med Request 05/12/2023 Diarrhea Encounter Details Date Type Department Care Team (Late st Contact Info) Description 05/12/2023 Telephone Family Practice [address] [place] [phone] Jameel Reyna DO [address] [place] [address] Med Request (Diarrhea) Allergies Active Allergy Reactions Criticality Noted Date Comments Levofloxacin Diarrhea High 06/14/2021 Other reaction(s): C-DIFF documented as of this encounter (statuses as of 05/12/2023) Medications Medication Sig Dispensed Refills Start Date [...] group B, by GOLD 2017 classification ([facility]) Inhale via nebulizer. Use as directed. 1 Each 1 09/29/2022 Active Albuterol Sulfate (2.5 MG/3ML) 0.083% Inhalation Nebulization Solution (Proventil)Indicati ons:COPD, group B, by GOLD 2017 classification ([facility]) Inhale 1 Vial via nebulizer every 4 hours as needed for Wheezing. 120 mL 09/29/2022 Active Proventil HFA 108 (90 Base) MCG/ACT Inhalation Aerosol SolutionIndications :COPD, group B, by GOLD 2017 classification ([facility]) Inhale 2 Puffs by mouth in the morning and 2 Puffs at noon and 2 Puffs in the evening and 2 Puffs before bedtime. 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 60 Tablet 5 04/27/2023 Active Cholestyramine 4 GM Oral Packet (Questran)Indicatio ns:Diarrhea Take 1 Packet by mouth in the morning and 1 Packet before bedtime. Mix with water and drink before a meal.. 60 Packet 5 05/12/2023 Active documented as of this encounter (statuses as of 05/12/2023) Active Problems Problem Noted Date Diagnosed Date [...] as of this encounter (statuses as of 05/12/2023) Resolved Problems Problem Noted Date Diagnosed Date [...] as of this encounter (statuses as of 05/12/2023) Immunizations Name Administration Dates Next Due COVID-19 mRNA, LNP-s, No Pre serve, 2-Dose Series ([employer]) 01/09/2021,06/03/2020,05/13/2020 COVID-19, MRNA-LNP, 23-24, P F, 30 MCG/0.3 mL, 12 YRS AND ABOVE, IM (Enel OGK-5-Comirnaty) 12/26/2022 HepA Inact/HepB Recomb>=18yrs old 07/15/2011 PPD [...] Used Date Smoking Tobacco: Former Cigarettes 1 1 978 - 2002 Passive Smoke Exposure: [...] Telephone Encounter - Jameel Reyna DO - 05/12/2023 2:18 PM EST Questran 4 gm two times a day * Telephone Encounter - Leonie Mejía LPN - 05/12/2023 2:01 PM EST Call placed to patient and relayed information. Pt agreeable to Questran. Pt states she will keep appt scheduled 05/16/23. Pharmacy confirmed - [facility] in [place]. Medication pended Dr. Reyna, please confirm dose on script - only able to find 4 gm dose. * Telephone Encounter - Jameel Reyna DO - 05/12/2023 1:46 PM EST Start questran 4 mg two times a day Keep visit on 05/15 * Telephone Encounter - Sonia Diego LPN - 05/12/2023 12:06 PM EST Diarrhea for 3 days, no blood no fever. Does have some cramping. Denies nausea or vomiting. States has been not taking any laxatives at all. No one else in home has diarrhea. Has not been on an atb recently. Thank you * Telephone Encounter - Daisy Verde OSA - 05/12/2023 11:51 AM EST Sonia delgado Wants something called in, has had diarrhea for past three days and the immodium isnt working Please advise documented in this encounter Plan of Treatment Upcoming Encounters Date Type Department Care Team (Late st Contact Info) Description 05/16/2023 3:00 PM EST Office Visit Family [address] [place] [address] Jameel Reyna, [address] [place] [address] 06/20/2023 2:20 PM EDT Office Visit [facility] [address] [place] [address] Jameel Reyna, [address] [place] [address] 06/21/2023 9:30 AM EDT Pharmacy Pharmacy Hematology Oncology [facility] [address] [place] [address] [facility] [place] [facility] Hem/Onc [address] [place] [address] 07/07/2023 8:00 AM EDT Imaging Radiology [address] 132 [facility] [place] [address] 07/19/2023 2:15 PM EDT Office Visit Hematology/Oncology [facility] [place] [address] [place] [phone] Leoncio Xavier MD 200 [facility] [place] [address] Scheduled Procedures Name Priority Associated Diagnoses Date/Ti [...] this encounter Medical Devices Implanted Type Area Director Television News Device Identifier Shelf Expiration Date Model / Serial / Lot Port Pwr Mri Isp Profile - [id number] Implanted:Qty: 1 on 01/22/2019 by Bebeto Canseco DO at OR [facility] Right: Chest CR BARD : PERIPHERAL VASCULAR 02/10/2020 [id number] / / [id number] documented as of this encounter Visit Diagnoses Diagnosis Diarrhea- Primary documented in this encounter Advance Directives [...] the patient have Health Care Power of Salvager? No Full Code 10/12/2016 3:15 PM 10/14/2016 6:57 PM Question Answer Comments Discussion of Advance Directives occurred with: Not Discussed Does the patient have a Living Will? No Does the patient have Health Care Power of Salvager? No Full Code 08/28/2016 7:34 AM 09/02/2016 8:09 PM Question Answer Comments Discussion of Advance Directives occurred with: Not Discussed Does the patient have a Living Will? No Does the patient have Health Care Power of Salvager? No Full Code 06/14/2013 8:04 PM 06/16/2013 7:32 PM This or annmarie reflects the patients wishes and were consensually agreed upon. Question Answer Comments Discussion of Advance Directives occurred with: Patient Does the patient have a Living Will? No Does the patient have Health Care Power of Salvager? No Care Teams Cnc Machinist 2Nd Shift Relationship Specialty Start Date End Date Jameel Reyna DO [address] [place] [address] PCP - General Internal Medicine 03/15/22 documented as of this encounter
--- OUTSIDE RECORDS SUMMARY | 2023-06-02 16:18 | External Medical Summary | Summary of Care ---
Author Name Unknown Organization [facility] Address [address] [place] [address] Phone [phone] Care Team Providers Care Alley Worker Name Role Phone Jameel Reyna DO Primary Care Provider [phone] Reason for Visit * Reason Onset Date Comments Appointment 05/09/2023 Encounter Details Date Type Department Care Team (Late st Contact Info) Description 05/09/2023 Telephone Pharmacy Hematology Oncology [facility] [address] [place] [address] Christy Cazares, [facility] [address] [place] [address] Appointment Allergies Active Allergy Reactions Criticality Noted [...] group B, by GOLD 2017 classification ([facility]) Inhale via nebulizer. Use as directed. 1 Each 1 09/29/2022 Active Albuterol Sulfate (2.5 MG/3ML) 0.083% Inhalation Nebulization Solution (Proventil)Indicati ons:COPD, group B, by GOLD 2017 classification ([facility]) Inhale 1 Vial via nebulizer every 4 hours as needed for Wheezing. 120 mL 09/29/2022 Active Proventil HFA 108 (90 Base) MCG/ACT Inhalation Aerosol SolutionIndications :COPD, group B, by GOLD 2017 classification ([facility]) Inhale 2 Puffs by mouth in the morning and 2 Puffs at noon and 2 Puffs in the evening and 2 Puffs before bedtime. 18 g 09/29/2022 Active hydrALAZINE HCl 25 MG Oral Tablet (Apresoline)Indicat ions:HTN, goal below 140/90,Hypertensive kidney disease with chronic kidney disease stage V ([facility]) Take 1 Tablet by mouth in the [...] ns:Gastrointestinal stromal tumor (GIST) of stomach ([facility]) Take 1 Capsule by mouth in the [...] mRNA, LNP-s, No Pre serve, 2-Dose Series ([employer]) 01/09/2021,06/03/2020,05/13/2020 COVID-19, MRNA-LNP, 23-24, P F, 30 MCG/0.3 mL, 12 YRS AND ABOVE, IM ([employer]-Comirnat) 12/26/2022 HepA Inact/HepB Recomb>=18yrs old 07/15/2011 PPD [...] encounter Miscellaneous Notes * Telephone Encounter - Doris Montelongo OSA - 05/09/2023 3:43 PM EST Patient has been scheduled with for 07/19/23. Mailed all info to patient. 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)* 05/16/2023 3:00 PM EST Office Visit [address] [place] [phone] Jameel Reyna DO [address] [place] [address] 06/20/2023 2:20 PM EDT Office Visit [facility] 293 [place] [address] Jameel Reyna DO 293 [place] [address] 06/21/2023 9:30 AM EDT Pharmacy Pharmacy Hematology Oncology [facility] [place] [address] [place] [address] [facility] [address] [place] [address] 07/07/2023 8:00 AM EDT Imaging Radiology [facility] 1st [facility] 132 [facility] [place] [address] 07/19/2023 2:15 PM EDT Office Visit Hematology/Oncology [facility] [place] 200 [facility] [place] [phone] Leoncio Xavier MD 200 [facility] [place] [address] Scheduled Procedures Name Priority Associated Diagnoses Date/Ti [...] this encounter Medical Devices Implanted Type Area Campground Attendant Device Identifier Shelf Expiration Date Model / Serial / Lot Port Pwr Mri Isp Profile - [id number] Implanted:Qty: 1 on 01/22/2019 by Bebeto Canseco DO at OR [facility] Right: Chest CR BARD : PERIPHERAL VASCULAR 02/10/2020 [id number] / / [id number] documented as of this encounter Advance Directives [...] the patient have Health Care Power of Cooler Conveyor Loader? No Full Code 10/12/2016 3:15 PM 10/14/2016 6:57 PM Question Answer Comments Discussion of Advance Directives occurred with: Not Discussed Does the patient have a Living Will? No Does the patient have Health Care Power of Cooler Conveyor Loader? No Full Code 08/28/2016 7:34 AM 09/02/2016 8:09 PM Question Answer Comments Discussion of Advance Directives occurred with: Not Discussed Does the patient have a Living Will? No Does the patient have Health Care Power of Cooler Conveyor Loader? No Full Code 06/14/2013 8:04 PM 06/16/2013 7:32 PM This or annmarie reflects the patients wishes and were consensually agreed upon. Question Answer Comments Discussion of Advance Directives occurred with: Patient Does the patient have a Living Will? No Does the patient have Health Care Power of Cooler Conveyor Loader? No Care Teams Alley Worker Relationship Specialty Start Date End Date Jameel Reyna DO [address] [place] [address] PCP - General Internal Medicine 03/15/22 documented as of this encounter
--- OUTSIDE RECORDS SUMMARY | 2023-06-02 16:18 | External Medical Summary | Summary of Care ---
Author Name Unknown Organization [facility] Address [address] [place] [address] Phone [phone] Care Team Providers Care Grooving Lathe Tender Name Role Phone Jameel Reyna DO Primary Care Provider [phone] Reason for Visit * Reason Comments Medication Management Encounter Details Date Type Department Care Team (Late st Contact Info) Description 05/10/2023 9:30 AM [facility] Pharmacy Pharmacy Hematology Oncology [facility] [address] [place], [place] [phone] [facility] Hem/Onc [address] [place], [place] [phone] 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 Use as directed. 1 Each 1 09/29/2022 Active Albuterol Sulfate (2.5 MG/3ML) 0.083% Inhalation Nebulization Solution (Proventil)Indicati ons:COPD, group B, by GOLD 2017 classification ([facility]) Inhale 1 Vial via nebulizer every 4 hours as needed for Wheezing. 120 mL 09/29/2022 Active Proventil HFA 108 (90 Base) MCG/ACT Inhalation Aerosol SolutionIndications :COPD, group B, by GOLD 2017 classification ([facility]) Inhale 2 Puffs by mouth in the morning and 2 Puffs at noon and 2 Puffs in the evening and 2 Puffs before bedtime. 18 g 09/29/2022 Active hydrALAZINE HCl 25 MG Oral Tablet (Apresoline)Indicat ions:HTN, goal below 140/90,Hypertensive kidney disease with chronic kidney disease stage V ([facility]) Take 1 Tablet by mouth in [...] stromal tumor (GIST) of stomach ([facility]) Take 1 Capsule by mouth in [...] mRNA, LNP-s, No Pre serve, 2-Dose Series ([employer]) 01/09/2021,06/03/2020,05/13/2020 COVID-19, MRNA-LNP, 23-24, P F, 30 [...] this encounter Progress Notes * Christy Cazares, [facility] - 05/09/2023 3:21 PM EST MEDICATION THERAPY MANAGEMENT IMATINIB TREATMENT PROGRESS NOTE Sonia Bernal [phone] Patient Phone Numbers Communication: Spoke to: Patient Treatment: Medication: Imatinib (Gleevec) Indication: GIST Dose: 200mg daily Administration: with food Start Date: 12/20/21 Primary Ecology Professor/Oncologist: Dr. Jigar Xavier Supportive Care Meds: Ondansetron [...] be changing dialysis centers and going to Cost every MWF at 1330 Confirms taking imatinib with evening meal after HD Admitted to [facility] 07/21/22-07/28/22 for hypocalcemia Per OV 09/01/22, pt did not resume imatinib as advised 07/07/22 after thyroid surgeries and advised to resume treatment at OV Admitted to [facility] 09/12/22-09/15/22 for abdominal pain and readmitted 09/22/22-09/24/22 for fluid overload/respiratory failure. 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 No Assessment and Plan: Monthly labs obtained with [facility]onaldo ED appt Hgb declining to 9.2 Advised pt to go to ED if bleed suspected Will monitor closely PLT declining to 122 (grade 1 thrombocytopenia) ANC WNL All other labs stable Continue current therapy Repeat labs in 1 month - pt to obtain labs with PCP OV 06/20/23 Per OV 04/07/23, "RTC in 3 months with physician with cbc/diff and cmp for scan review" Per chart review, there are no future provider appts scheduled TE sent to scheduling requesting follow up appt after scan 07/07/23 Assessment of compliance: compliant Assessment of adverse effects attributed to drug therapy: Edema - absent Rash -absent Diarrhea -absent Nausea/Vomiting - absent Dose adjustment needed based on lab or adverse drug reaction? No Follow up: 06/20 Christy Cazares, PharmD, BCOP Clinical Pharmacist, [facility] Oral Chemotherapy [facility] 05/09/2023, 3:33 PM Pertinent labs: see media Time Spent on Encounter: 6 - 10 minutes Encounter Group: Oncology Encounter Interventions Item Category: Oral Chemotherapy Imatinib Problem/Rationale: Safety: Needs additional monitoring - Medication Requires monitoring Pharmacist Intervention(s): Lab monitoring and Toxicity monitoring Magnitude of Intervention: Monitoring with direction (Level 1) Second Item Second Item Category: Disease Related Problem/Rationale: Safety: Needs additional monitoring - Medication Requires monitoring Pharmacist Intervention(s): Care coordination and Patient assistance follow-up Magnitude of Intervention: Refer patient to provider for clinic follow (Level 4) documented in this encounter Plan of Treatment Upcoming Encounters Date Type Department Care Team (Late st Contact Info) Description 05/16/2023 3:00 PM EST Office Visit Family Practice 65 [facility] 293 [place] [address] Jameel Reyna, 293 [facility] [place] [address] 06/20/2023 2:20 PM EDT Office Visit Family Practice 65 [facility] [place] 293 [place] [address] Jameel Reyna, 293 [facility] [place] [address] 06/21/2023 9:30 AM EDT Pharmacy Pharmacy Hematology Oncology [facility] [place] [address] [place] [address] [facility]c [address] [place] [address] 07/07/2023 8:00 AM EDT Imaging Radiology [facility] 1st [facility], [place] [address] [facility] [place] [address] 07/19/2023 2:15 PM EDT Office Visit [facility]ematology/On[facility] [address] [place] [address] Leoncio Xavier MD [address] [place] [address] Scheduled Procedures Name Priority Associated Diagnoses Date/Ti [...] this encounter Medical Devices Implanted Type Area Chef Manager Device Identifier Shelf Expiration Date Model / Serial / Lot Port Pwr Mri Isp Profile - [id number] Implanted:Qty: 1 on 01/22/2019 by Bebeto Canseco DO at OR [facility] Right: Chest CR BARD : PERIPHERAL VASCULAR 02/10/2020 [id number] / / [id number] documented as of this encounter Visit Diagnoses [...] the patient have Health Care Power of Administrative Staff Supervisor? No Full Code 10/12/2016 3:15 PM 10/14/2016 6:57 PM Question Answer Comments Discussion of Advance Directives occurred with: Not Discussed Does the patient have a Living Will? No Does the patient have Health Care Power of Administrative Staff Supervisor? No Full Code 08/28/2016 7:34 AM 09/02/2016 8:09 PM Question Answer Comments Discussion of Advance Directives occurred with: Not Discussed Does the patient have a Living Will? No Does the patient have Health Care Power of Administrative Staff Supervisor? No Full Code 06/14/2013 8:04 PM 06/16/2013 7:32 PM This or annmarie reflects the patients wishes and were consensually agreed upon. Question Answer Comments Discussion of Advance Directives occurred with: Patient Does the patient have a Living Will? No Does the patient have Health Care Power of Administrative Staff Supervisor? No Care Teams Grooving Lathe Tender Relationship Specialty Start Date End Date Jameel Reyna DO [address] [place] [address] PCP - General Internal Medicine 03/15/22 documented as of this encounter
--- OUTSIDE RECORDS SUMMARY | 2023-06-02 16:18 | External Medical Summary | Summary of Care ---
Author Name Unknown Organization [facility] Address [address] [place] [address] Phone [phone] Care Team Providers Care Completion Manager Name Role Phone Jameel Reyna DO Primary Care Provider Reason for Visit * Reason Onset Date Comments Information 05/09/202305/09 Encounter Details Date Type Department Care Team (Late st Contact Info) Description 05/09/2023 Telephone Family Practice 65 [facility] [address] [place] [address] Jameel Reyna DO [address] [place] [address] Information (05/09) Allergies Active Allergy Reactions Criticality Noted Date [...] s:COPD, group B, by GOLD 2017 classification ([facility]) Inhale via nebulizer. Use as directed. 1 Each 1 09/29/2022 Active Albuterol Sulfate (2.5 MG/3ML) 0.083% Inhalation Nebulization Solution (Proventil)Indicati ons:COPD, group B, by GOLD 2017 classification ([facility]) Inhale 1 Vial via nebulizer every 4 hours as needed for Wheezing. 120 mL 09/29/2022 Active Proventil HFA 108 (90 Base) MCG/ACT Inhalation Aerosol SolutionIndications :COPD, group B, by GOLD 2017 classification ([facility]) Inhale 2 Puffs by mouth in the morning and 2 Puffs at noon and 2 Puffs in the evening and 2 Puffs before bedtime. 18 g 09/29/2022 Active hydrALAZINE HCl 25 MG Oral Tablet (Apresoline)Indicat ions:HTN, goal below 140/90,Hypertensive kidney disease with chronic kidney disease stage V ([facility]) Take 1 Tablet by mouth in the [...] (PriLOSEC)Indicatio ns:Gastrointestinal stromal tumor (GIST) of stomach ([facility]) Take 1 Capsule by mouth in the [...] mRNA, LNP-s, No Pre serve, 2-Dose Series ([employer]) 01/09/2021,06/03/2020,05/13/2020 COVID-19, MRNA-LNP, 23-24, P F, 30 MCG/0.3 mL, 12 YRS AND ABOVE, IM ([employer]-Comirnat) 12/26/2022 HepA Inact/HepB Recomb>=18yrs old 07/15/2011 PPD [...] encounter Miscellaneous Notes * Telephone Encounter - Leonie Mejía LPN - 05/09/2023 12:26 PM EST Call placed to patient and relayed information. Pt confirmed she will be at [facility] on 05/16/23. * Telephone Encounter - Jameel Reyna DO - 05/09/2023 12:09 PM EST Date 05/15 for follow up is OK * Telephone Encounter - Leonie Mejía LPN - 05/09/2023 11:57 AM EST Call placed to patient. Pt reports she was feeling "off". States her stomach was upset. Went to ED to be checked. States she just had a stomach bug. States she is feeling better. Pt states she is scheduled for OV with Dr. Reyna on 05/16/23. Is this date OK or does pt need to be seen sooner? Please advise. * Telephone Encounter - Jameel Reyna DO - 05/09/2023 10:36 AM EST Patient seen in the Emergency Department at [facility]. Check status. Needs ER follow up. documented in this encounter Plan of Treatment Upcoming Encounters Date Type Department Care Team (Late st Contact Info) Description 05/10/2023 9:30 AM EST Pharmacy Pharmacy Hematology Oncology [facility] [place] [address] [place] [address] [facility] Hem[facility]Onc [address] [place] [address] 05/16/2023 3:00 PM EST Office Visit [facility] [address] [place] [phone] Jameel Reyna, DO [address] [place] [address] 06/20/2023 2:20 PM EDT Office Visit [facility] 65 [facility] [address] [place] [phone] Jameel Reyna, DO [address] [place] [address] 07/07/2023 8:00 AM EDT Imaging Radiology [address], [place] [address] [facility] [place] [address] Scheduled Procedures Name Priority Associated Diagnoses Date/Ti [...] this encounter Medical Devices Implanted Type Area Manager Human Resources Device Identifier Shelf Expiration Date Model / Serial / Lot Port Pwr Mri Isp Profile - [id number] Implanted:Qty: 1 on 01/22/2019 by Bebeto Canseco DO at OR [facility] Right: Chest CR BARD : PERIPHERAL VASCULAR 02/10/2020 [id number] / / [id number] documented as of this encounter Advance Directives [...] the patient have Health Care Power of Employee Development Director? No Full Code 10/12/2016 3:15 PM 10/14/2016 6:57 PM Question Answer Comments Discussion of Advance Directives occurred with: Not Discussed Does the patient have a Living Will? No Does the patient have Health Care Power of Employee Development Director? No Full Code 08/28/2016 7:34 AM 09/02/2016 8:09 PM Question Answer Comments Discussion of Advance Directives occurred with: Not Discussed Does the patient have a Living Will? No Does the patient have Health Care Power of Employee Development Director? No Full Code 06/14/2013 8:04 PM 06/16/2013 7:32 PM This or annmarie reflects the patients wishes and were consensually agreed upon. Question Answer Comments Discussion of Advance Directives occurred with: Patient Does the patient have a Living Will? No Does the patient have Health Care Power of Employee Development Director? No Care Teams Completion Manager Relationship Specialty Start Date End Date Jameel Reyna DO [address] [place] [address] PCP - General Internal Medicine 03/15/22 documented as of this encounter
--- OUTSIDE RECORDS SUMMARY | 2023-06-02 16:19 | External Medical Summary | Summary of Care ---
Author Name Unknown Organization [facility] Address [address] [place] [address] Phone [phone] Care Team Providers Care Log Roller Name Role Phone Jameel Reyna DO Primary Care Provider [phone] Reason for Visit * Reason Onset Date Comments Immunization RSV Vaccine 04/14/2023 Encounter Details Date Type Department Care Team (Late st Contact Info) Description 04/14/2023 3:15 PM EST Immunization/I njection Family Practice 65 [facility] 293 [place] [address] College, Nurse [facility] Prac [address] [address] Need for RSV vaccination* Allergies Active Allergy Reactions Criticality Noted Date Comments Levofloxacin Diarrhea High 06/14/2021 Other reaction(s): C-DIFF documented as of this encounter (statuses as of 04/14/2023) Medications Medication Sig Dispensed Refills Start Date [...] as needed. 453.6 g 0 04/12/2022 Active Calcium Acetate (Phos Binder) 667 MG Oral Capsule (Phoslo) TAKE TWO CAPSULES BY MOUTH THREE TIMES A DAY WITH MEALS AND ONE CAPSULE WITH SNACKS 720 Capsule 08/05/2022 08/05/19 24 Active Levothyroxine Sodium 100 MCG Oral Tablet (Levoxyl)Indication s:Postoperative hypothyroidism TAKE 1 TABLET BY MOUTH DAILY AT LEAST 30 MINUTES PRIOR TO FIRST MEAL OF THE DAY OR OTHER MEDICATIONS 90 Tablet 07/21/2022 07/21/19 24 Active Compressor NebulizerIndication s:COPD, group B, by GOLD 2017 classification ([facility]) Inhale via nebulizer. Use as directed. 1 Each 09/29/2022 Active Albuterol Sulfate (2.5 MG/3ML) 0.083% Inhalation Nebulization Solution (Proventil)Indicati ons:COPD, group B, by GOLD 2017 classification ([facility]) Inhale 1 Vial via nebulizer every 4 hours as needed for Wheezing. 120 mL 09/29/2022 Active Proventil HFA 108 (90 Base) MCG/ACT Inhalation Aerosol SolutionIndications :COPD, group B, by GOLD 2017 classification ([facility]) Inhale 2 Puffs by mouth in the morning and 2 Puffs at noon and 2 Puffs in the evening and 2 Puffs before bedtime. 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 200 Tablet 3 12/19/2022 Active Imatinib Mesylate 100 MG Oral Tablet (Gleevec) Take 2 Tablets by mouth daily at noon. afternoon 0 Active oxyCODONE-Acetamino phen 5-325 MG Oral Tablet (Percocet)Indicatio ns:Chronic midline low back pain without sciatica Take 1 Tablet by mouth every 8 hours as needed for Pain, Severe. 45 Tablet 0 04/07/2023 Active Doxycycline Hyclate 100 MG Oral CapsuleIndications: OME (otitis media with effusion), right Take 1 Capsule by mouth in the morning and 1 Capsule before bedtime. Take for 7 days. 14 Capsule 0 04/10/2023 Active predniSONE 10 MG Oral Tablet (Deltasone)Indicati ons:OME (otitis media with effusion), right Take 5 tabs for 2 days, 4 tabs for 2 days, 3 tabs for 2 days, 2 tabs for 2 days 1 tab for 2 days 30 Tablet 0 04/10/2023 Active Abrysvo 120 MCG/0.5ML Intramuscular Solution Reconstituted (RSV Pre-Fusion F A&B Vac Rcmb)Indications:Ne ed for RSV vaccination Inject 0.5 mL into a large muscle once for 1 dose. 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, not intractable 04/07/2023 Hypertensive chronic kidney disease with stage 5 chronic kidney disease or end stage renal disease 04/07/2023 Hypothyroidism 04/07/2023 Secondary hyperparathyroidism of renal origin Dilated [...] as of this encounter (statuses as of 04/14/2023) Resolved Problems Problem Noted Date Diagnosed Date Resolved Date Chronic obstructive pulmonary disease 04/07/2023 04/07/2023 Mediastinal mass 10/06/2022 12/27/2022 Chronic obstructive pulmonary [...] as of this encounter (statuses as of 04/14/2023) Immunizations Name Administration Dates Next Due COVID-19 mRNA, LNP-s, No Pre serve, 2-Dose Series ([employer]) 01/09/2021,06/03/2020,05/13/2020 COVID-19, MRNA-LNP, 23-24, P F, 30 [...] No 06/29/2022 documented as of this encounter Patient Instructions * Patient Instructions* Sonia Diego LPN - 04/14/2023 3:45 PM EST Possible side effects of RSV vaccine, (Respiratory Syncytial Virus), are usually mild and can include: Soreness, swelling or redness at injection site Low grade fever Body aches or joint pain Headache Nausea or diarrhea You may use a fever/pain reducing medication for these symptoms. LET YOUR DOCTOR KNOW IMMEDIATELY IF YOU HAVE DIFFICULTY BREATHING OR SWALLOWING, EXPERIENCE ITCHINGOF FEET OR HANDS, HAVE SWELLING OF EYES, FACE OR INSIDE OF NOSE. documented in this encounter Progress Notes * Sonia Diego LPN - 04/14/2023 4:10 PM EST Pre-Administration Time Out Procedure Performed: Yes Patient Identified (Ask Name/Date of ): Yes Does the patient have a fever greater than 101 degrees today? No Patient allergic to latex? No Has the patient ever fainted after receiving an injection? No VFC Stock: No Immunization(s) verified: Yes, Immunization Name: RSV, VIS Sheet(s) given: Yes Verified Side and Site: Yes Verified Shot(s) with Parent(s)/Patient: Yes documented in this encounter Plan of Treatment Upcoming Encounters Date Type Department Care Team (Late st Contact Info) Description 05/05/2023 9:30 AM EST Pharmacy Pharmacy Hematology Oncology [facility] [address] [place] [address] [facility], [facility] Hem/Onc [address] [place] [address] 06/20/2023 2:20 PM EDT Office Visit Family Practice 65 [facility] [place] [address] [place] [address] Jameel Reyna DO [address] [place] [address] 07/07/2023 8:00 AM EDT Imaging Radiology [address] 132 [facility] [place] [address] 08/03/2023 11:40 AM EDT Office Visit Sleep Disorders [facility] 132 [facility] [place] [phone] Halima Morales, 132 [facility] [place] [address] Scheduled Procedures Name Priority Associated Diagnoses Date/Ti [...] this encounter Medical Devices Implanted Type Area Computer Peripheral Equipment Operator Device Identifier Shelf Expiration Date Model / Serial / Lot Port Pwr Mri Isp Profile - [id number] Implanted:Qty: 1 on 01/22/2019 by Bebeto Canseco DO at OR [facility] Right: Chest CR BARD : PERIPHERAL VASCULAR 02/10/2020 [id number] / / [id number] documented as of this encounter Visit Diagnoses Diagnosis Need for RSV vaccination- Primary Need for prophylactic vaccination and inoculation against respiratory syncytial virus documented in this encounter Advance Directives Latest [...] the patient have Health Care Power of Toll Line Mechanic? No Full Code 10/12/2016 3:15 PM 10/14/2016 6:57 PM Question Answer Comments Discussion of Advance Directives occurred with: Not Discussed Does the patient have a Living Will? No Does the patient have Health Care Power of Toll Line Mechanic? No Full Code 08/28/2016 7:34 AM 09/02/2016 8:09 PM Question Answer Comments Discussion of Advance Directives occurred with: Not Discussed Does the patient have a Living Will? No Does the patient have Health Care Power of Toll Line Mechanic? No Full Code 06/14/2013 8:04 PM 06/16/2013 7:32 PM This or annmarie reflects the patients wishes and were consensually agreed upon. Question Answer Comments Discussion of Advance Directives occurred with: Patient Does the patient have a Living Will? No Does the patient have Health Care Power of Toll Line Mechanic? No Care Teams Log Roller Relationship Specialty Start Date End Date Jameel Reyna DO [address] [place] [address] PCP - General Internal Medicine 03/15/22 documented as of this encounter
--- OUTSIDE RECORDS SUMMARY | 2023-06-02 16:19 | External Medical Summary | Summary of Care ---
Author Name Unknown Organization [facility] Address [address] [facility] [place] [address] Phone [phone] Care Team Providers Care Corporate Lawyer Name Role Phone Jameel Reyna DO Primary Care Provider [phone] Encounter Details Date Type Department Care Team (Late st Contact Info) Description 04/27/2023 Telephone Hematology/Oncology [facility] [address] [facility] [place] [address] Leoncio Xavier MD [address] [facility] [address] Allergies Active Allergy Reactions Criticality Noted Date Comments Levofloxacin Diarrhea High 06/14/2021 Other reaction(s): C-DIFF documented as of this encounter (statuses as of 04/27/2023) Medications Medication Sig Dispensed Refills Start Date End Date Status Magnesium Oxide 400 (240 Mg) MG Tablet Take 1 Tablet by mouth in the morning. 0 Active aspirin 81 MG chewable tablet Take 1 Tablet by mouth in the morning. with food.. 100 Tab 5 8 Active Calcium Acetate (Phos Binder) 667 MG Oral Capsule (Phoslo) TAKE TWO CAPSULES BY MOUTH THREE TIMES A DAY WITH MEALS AND ONE CAPSULE WITH SNACKS 720 Capsule 4 3 08/05/19 24 Active Levothyroxine Sodium 100 MCG Oral Tablet (Levoxyl)Indication s:Postoperative hypothyroidism TAKE 1 TABLET BY MOUTH DAILY AT LEAST 30 MINUTES PRIOR TO FIRST MEAL OF THE DAY OR OTHER MEDICATIONS 90 Tablet 3 3 07/21/19 24 Active Compressor NebulizerIndication s:COPD, group B, by GOLD 2017 classification ([facility]) Inhale via nebulizer. Use as directed. 1 Each 1 3 Active Albuterol Sulfate (2.5 MG/3ML) 0.083% Inhalation Nebulization Solution (Proventil)Indicati ons:COPD, group B, by GOLD 2017 classification ([facility]) Inhale 1 Vial via nebulizer every 4 hours as needed for Wheezing. 120 mL 5 3 Active Proventil HFA 108 (90 Base) MCG/ACT Inhalation Aerosol SolutionIndications :COPD, group B, by GOLD 2017 classification ([facility]) Inhale 2 Puffs by mouth in the morning and 2 Puffs at noon and 2 Puffs in the evening and 2 Puffs before bedtime. 18 g 3 3 Active hydrALAZINE HCl 25 MG Oral Tablet (Apresoline)Indicat ions:HTN, goal below 140/90,Hypertensive kidney disease with chronic kidney disease stage V ([facility]) Take 1 Tablet by mouth in the morning and 1 Tablet in the evening. 200 Tablet 5 3 Active Gabapentin 100 MG Oral Capsule (Neurontin)Indicati ons:Cramp of both lower extremities Take 1 Capsule by mouth in the morning and 1 Capsule at noon and 1 Capsule before bedtime. 300 Capsule 3 3 Active Omeprazole 40 MG Oral Capsule Delayed Release (PriLOSEC)Indicatio ns:Gastrointestinal stromal tumor (GIST) of stomach ([facility]) Take 1 Capsule by mouth in the morning. 100 Capsule 3 3 Active Polyethylene Glycol 3350 17 GM/SCOOP Oral Powder (Miralax) Take 17 g by mouth in the morning and 17 g before bedtime. Dissolve one heaping tablespoon in 8 ounces of water or juice.. 255 g 0 3 Active Docusate Sodium 100 MG Oral Capsule Take 1 Capsule by mouth in the morning and 1 Capsule before bedtime. 60 Capsule 11 3 Active Ondansetron HCl 8 MG Oral Tablet (Zofran)Indications :ESRD on dialysis ([facility]),Gastrointesti nal stromal tumor (GIST) of stomach ([facility]) Take 1 Tablet by mouth every 8 hours as needed for Nausea. Take 1 tablet 30 to 60 minutes before imatinib (Gleevec) administration and every 8 hours as needed 90 Tablet 3 3 Active Prochlorperazine Maleate 10 MG Oral Tablet (Compazine)Indicati ons:ESRD on dialysis ([facility]),Gastrointesti nal stromal tumor (GIST) of stomach ([facility]) Take 1 Tablet by mouth every 6 hours as needed for Nausea. Take 1 tablet at bedtime and every 6 hours as needed 120 Tablet 3 3 Active Metoprolol Tartrate 25 MG Oral Tablet (Lopressor) Take 1.5 Tablets by mouth 2 times a day. 300 Tablet 3 3 Active amLODIPine Besylate 5 MG Oral Tablet (Norvasc)Indication s:HTN, goal below 140/90 Take 2 Tablets by mouth in the morning. 200 Tablet 3 3 Active oxyCODONE-Acetamino phen 5-325 MG Oral Tablet (Percocet)Indicatio ns:Chronic midline low back pain without sciatica Take 1 Tablet by mouth every 8 hours as needed for Pain, Severe. 45 Tablet 0 4 Active Triamcinolone Acetonide 0.1 % External Cream (Aristocort)Indicat ions:Dermatitis Apply topically to affected area 2 times a day. 453.6 g 0 4 Active Imatinib Mesylate 100 MG Oral Tablet (Gleevec) Take 2 tablets by mouth in the morning. 60 Tablet 5 4 Active Imatinib Mesylate 100 MG Oral Tablet (Gleevec) Take 2 Tablets by mouth daily at noon. afternoon 0 04/27/19 24 Discontinu ed(Refill) documented as of this encounter (statuses as of 04/27/2023) Active Problems Problem Noted Date Diagnosed Date [...] as of this encounter (statuses as of 04/27/2023) Resolved Problems Problem Noted Date Diagnosed Date [...] as of this encounter (statuses as of 04/27/2023) Immunizations Name Administration Dates Next Due COVID-19 mRNA, LNP-s, No Pre serve, 2-Dose Series ([employer]) 01/09/2021,06/03/2020,05/13/2020 COVID-19, MRNA-LNP, 23-24, P F, 30 MCG/0.3 mL, 12 YRS AND ABOVE, IM ([employer]) 12/26/2022 HepA Inact/HepB Recomb>=18yrs old 07/15/2011 PPD [...] Notes * Telephone Encounter - Christy Cazares RP - 04/27/2023 10:57 AM EST Imatinib 200mg daily RX sent to [facility] Time Spent on Encounter: 6 - 10 minutes Encounter Group: Oncology Encounter Interventions Item Category: Oral Chemotherapy Imatinib Problem/Rationale: Adherence - Refill needed Pharmacist Intervention(s): Refill sent Magnitude of Intervention: Modification of medication for asymtomatic patients (Level 2) * Telephone Encounter - Sandy Cameron RP - 04/27/2023 10:15 AM EST Good morning! We received an incoming call from Sonia this morning looking to fill her imatinib. The Rx we have onfile was discontinued on 02/09/23. It looks like we had disenrolled her from our outreach at that time because she had been referred to hospice and discharged from [facility]. I now see that there was a 02/10 addendum that Sonia had declined hospice and decided to continue imatinib. We have not filled for Sonia since then -- she stated that she had a surplus of the medicationwhich she has been taking until this point. Can you send us a new prescription for imatinib, if appropriate? I will re- enroll her in our outreach. Thank you for your time! Sandy Cameron, PharmD, [facility] Specialty Clinical Pharmacist [facility] [phone] 04/27/2023, 10:24 AM documented in this encounter Plan of Treatment Upcoming Encounters Date Type Department Care Team (Late st Contact Info) Description 05/02/2023 11:20 AM EST Office Visit Family Practice 65 [facility] [address] [place] [address] Jameel Reyna, 293 [facility] [place] [address] 05/05/2023 9:30 AM EST Pharmacy Pharmacy Hematology Oncology [facility] [address] [place] [address] [facility], [facility] Hem/Onc [address] [place] [address] 06/20/2023 2:20 PM EDT Office Visit Family Practice 65 [facility] [address] [place] [address] Jameel Reyna, 293 [facility] [place] [address] 07/07/2023 8:00 AM EDT Imaging Radiology [address] 132 [facility] [place] [address] Scheduled Procedures Name Priority Associated Diagnoses Date/Ti me COLONOSCOPY FLEXIBLE PROXIMAL DIAGNOSTIC Recall History of colon polyps Health Maintenance Due Date Last Done Comments Alpha-1 Antitrypsin 11/21/1975 *COPD SEVERITY VERIFIED BY PFT 02/01/2022 Mammogram 04/27/2023 03/15/2022, 05/12, 10/01/2014, Additional history exists Postponed from 03/15/2023 (Patient Declined After Education) TSH 09/11/2023 09/10/2022, 08/11, 07/19/2022, Additional history [...] this encounter Medical Devices Implanted Type Area Coffee Sampler Device Identifier Shelf Expiration Date Model / Serial / Lot Port Pwr Mri Isp Profile - [id number] Implanted:Qty: 1 on 01/22/2019 by Bebeto Canseco DO at OR [facility] Right: Chest CR BARD : PERIPHERAL VASCULAR 02/10/2020 [id number] / / [id number] documented as of this encounter Advance Directives [...] the patient have Health Care Power of Artificial Breast Fabricator? No Full Code 10/12/2016 3:15 PM 10/14/2016 6:57 PM Question Answer Comments Discussion of Advance Directives occurred with: Not Discussed Does the patient have a Living Will? No Does the patient have Health Care Power of Artificial Breast Fabricator? No Full Code 08/28/2016 7:34 AM 09/02/2016 8:09 PM Question Answer Comments Discussion of Advance Directives occurred with: Not Discussed Does the patient have a Living Will? No Does the patient have Health Care Power of Artificial Breast Fabricator? No Full Code 06/14/2013 8:04 PM 06/16/2013 7:32 PM This or anmnarie reflects the patients wishes and were consensually agreed upon. Question Answer Comments Discussion of Advance Directives occurred with: Patient Does the patient have a Living Will? No Does the patient have Health Care Power of Artificial Breast Fabricator? No Care Teams Corporate Lawyer Relationship Specialty Start Date End Date Jameel Reyna DO [address] [place] [address] PCP - General Internal Medicine 03/15/22 documented as of this encounter
--- OUTSIDE RECORDS SUMMARY | 2023-06-02 16:19 | External Medical Summary | Summary of Care ---
Author Name Unknown Organization [facility] Address [address] [place] [address] Phone [phone] Care Team Providers Care Rn Testing Name Role Phone Jameel Reyna DO Primary Care Provider [phone] Reason for Visit * Reason Onset Date Comments Med Request 04/10/2023 antibiotic Encounter Details Date Type Department Care Team (Late st Contact Info) Description 04/10/2023 Telephone [address] [facility] [place] [address] [place] [address] Jameel Reyna DO [address] [place] [address] Med Request (antibiotic) Allergies Active Allergy Reactions Criticality Noted Date Comments Levofloxacin Diarrhea High 06/14/2021 Other reaction(s): C-DIFF documented as of this encounter (statuses as of 04/10/2023) Medications Medication Sig Dispensed Refills Start Date End Date Status Magnesium Oxide 400 (240 Mg) MG Tablet Take 1 Tablet by mouth in the morning. 0 Active aspirin 81 MG chewable tablet Take 1 Tablet by mouth in the morning. with food.. 100 Tab 5 8 Active Triamcinolone Acetonide 0.1 % External Cream (Aristocort) Apply topically to affected area on arms and abdomen twice daily for 2 weeks then daily for 2 weeks then twice per week as needed. 453.6 g 0 3 Active Calcium Acetate (Phos Binder) 667 MG [...] s:COPD, group B, by GOLD 2017 classification ([facility]) Inhale via nebulizer. Use as directed. 1 Each 1 3 Active Albuterol Sulfate (2.5 MG/3ML) 0.083% Inhalation Nebulization Solution (Proventil)Indicati ons:COPD, group B, by GOLD 2017 classification ([facility]) Inhale 1 Vial via nebulizer every 4 hours as needed for Wheezing. 120 mL 3 Active Proventil HFA 108 (90 Base) MCG/ACT Inhalation Aerosol SolutionIndications :COPD, group B, by GOLD 2017 classification ([facility]) Inhale 2 Puffs by mouth in the morning and 2 Puffs at noon and 2 Puffs in the evening and 2 Puffs before bedtime. 18 g 3 3 Active hydrALAZINE HCl 25 MG Oral Tablet (Apresoline)Indicat ions:HTN, goal below 140/90,Hypertensive kidney disease with chronic kidney disease stage V ([facility]) Take 1 Tablet by mouth in the [...] (PriLOSEC)Indicatio ns:Gastrointestinal stromal tumor (GIST) of stomach ([facility]) Take 1 Capsule by mouth in the [...] the morning. 200 Tablet 3 3 Active Imatinib Mesylate 100 MG Oral Tablet (Gleevec) Take 2 Tablets by mouth daily at noon. afternoon 0 Active oxyCODONE-Acetamino phen 5-325 MG Oral Tablet (Percocet)Indicatio ns:Chronic midline low back pain without sciatica Take 1 Tablet by mouth every 8 hours as needed for Pain, Severe. 45 Tablet 0 4 Active Doxycycline Hyclate 100 MG Oral CapsuleIndications: OME (otitis media with effusion), right Take 1 Capsule by mouth in the morning and 1 Capsule before bedtime. Take for 7 days. 14 Capsule 0 4 Active predniSONE 10 MG Oral Tablet (Deltasone)Indicati ons:OME (otitis media with effusion), right Take 5 tabs for 2 days, 4 tabs for 2 days, 3 tabs for 2 days, 2 tabs for 2 days 1 tab for 2 days 30 Tablet 0 4 Active predniSONE 10 MG Oral Tablet (Deltasone)Indicati ons:OME (otitis media with effusion), right Take 5 tabs for 2 days, 4 tabs for 2 days, 3 tabs for 2 days, 2 tabs for 2 days 1 tab for 2 days 30 Tablet 0 4 04/10/19 24 Discontinu ed(Refill) Doxycycline Hyclate 100 MG Oral CapsuleIndications: OME (otitis media with effusion), right Take 1 Capsule by mouth in the morning and 1 Capsule before bedtime. Do all this for 7 days. Take for 7 days. 14 Capsule 0 4 04/10/19 24 Discontinu ed(Refill) documented as of this encounter (statuses as of 04/10/2023) Active Problems Problem Noted Date Diagnosed Date [...] as of this encounter (statuses as of 04/10/2023) Resolved Problems Problem Noted Date Diagnosed Date [...] as of this encounter (statuses as of 04/10/2023) Immunizations Name Administration Dates Next Due COVID-19 mRNA, LNP-s, No Pre serve, 2-Dose Series (Monstrous) 01/09/2021,06/03/2020,05/13/2020 COVID-19, MRNA-LNP, 23-24, P F, 30 MCG/0.3 mL, 12 YRS AND ABOVE, IM (Premonix-Comirnat) 12/26/2022 HepA Inact/HepB Recomb>=18yrs old 07/15/2011 PPD [...] encounter Miscellaneous Notes * Telephone Encounter - Gabino Olivo RPh - 04/10/2023 2:25 PM EST Not sent yet from mail order. Pended to pcp to redirect to [facility]. Gabino Damon, Pharm D, BCACP Clinical Pharmacist [address] [facility] 04/10/2023, 2:25 PM Ph. [phone] * Telephone Encounter - Daisy Pate OSA - 04/10/2023 12:05 PM EST Pts calling to check the status of this refill. He went to the [place] [facility] to [facility] again and it was not there. Please advise. * Telephone Encounter - Sonia Diego LPN - 04/10/2023 9:46 AM EST Was sent to mail away, gabino can you tell where this medication would be? * Telephone Encounter - Daisy Verde OSA - 04/10/2023 8:04 AM EST Antibiotic was to be called into pharmacy in [place]. Went Monday to [facility] and it was not there Could you please call in documented in this encounter Plan of Treatment Upcoming Encounters Date Type Department Care Team (Late st Contact Info) Description 05/05/2023 9:30 AM EST Pharmacy Pharmacy Hematology Oncology [facility] [address] [place] [address] [facility], [facility] Hem/Onc [address] [place] [address] 06/20/2023 2:20 PM EDT Office Visit Family Practice [address] [place] [address] [address] [place] [address] Jameel Reyna, DO [address] [place] [address] 08/03/2023 11:40 AM EDT [facility] [address] [facility] [place] [phone] Halima Morales, DO [address] [facility] [place] [address] Scheduled Procedures Name Priority Associated Diagnoses Date/Ti [...] this encounter Medical Devices Implanted Type Area Burlap Bag Sewer Device Identifier Shelf Expiration Date Model / Serial / Lot Port Pwr Mri Isp Profile - [id number] Implanted:Qty: 1 on 01/22/2019 by Bebeto Canseco DO at OR [facility] Right: Chest CR BARD : PERIPHERAL VASCULAR 02/10/2020 [id number] / / [id number] documented as of this encounter Visit Diagnoses Diagnosis OME (otitis media with effusion), right documented in this encounter Advance Directives Latest [...] the patient have Health Care Power of Gis Software Engineer? No Full Code 10/12/2016 3:15 PM 10/14/2016 6:57 PM Question Answer Comments Discussion of Advance Directives occurred with: Not Discussed Does the patient have a Living Will? No Does the patient have Health Care Power of Gis Software Engineer? No Full Code 08/28/2016 7:34 AM 09/02/2016 8:09 PM Question Answer Comments Discussion of Advance Directives occurred with: Not Discussed Does the patient have a Living Will? No Does the patient have Health Care Power of Gis Software Engineer? No Full Code 06/14/2013 8:04 PM 06/16/2013 7:32 PM This or annmarie reflects the patients wishes and were consensually agreed upon. Question Answer Comments Discussion of Advance Directives occurred with: Patient Does the patient have a Living Will? No Does the patient have Health Care Power of Gis Software Engineer? No Care Teams Rn Testing Relationship Specialty Start Date End Date Jameel Reyna DO [address] [facility] [place] [address] PCP - General Internal Medicine 03/15/22 documented as of this encounter
--- OUTSIDE RECORDS SUMMARY | 2023-06-02 16:19 | External Medical Summary | Summary of Care ---
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) Procedures MRI ABDOMEN W WO CONTRAST Lexis Andino CRNP [address] [place] [address] Referral ID Status Reason Start Date Expiration Date V isits Requested Visits Authorized [id number] Pending Review 07/07/2023 999 999 Reason for Visit * Reason Comments Follow Up F/U Encounter Details Date Type Department Care Team (Latest Contact Info) Description 04/07/2023 3:30 PM EST Office Visit Hematology/Oncology [facility] [place] [address] [place] [address] Lexis Andino CRNP [address] [place] [address] 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 Use as directed. 1 Each 1 3 Active Albuterol Sulfate (2.5 MG/3ML) 0.083% Inhalation Nebulization Solution (Proventil)Indicati ons:COPD, group B, by GOLD 2017 classification ([facility]) Inhale 1 Vial via nebulizer every 4 hours as needed for Wheezing. 120 mL 5 3 Active Proventil HFA 108 (90 Base) MCG/ACT Inhalation Aerosol SolutionIndications :COPD, group B, by GOLD 2017 classification ([facility]) Inhale 2 Puffs by mouth in the morning and 2 Puffs at noon and 2 Puffs in the evening and 2 Puffs before bedtime. 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 45 Tablet 0 4 Active predniSONE 10 MG Oral Tablet (Deltasone)Indicati ons:OME (otitis media with effusion), right Take 5 tabs for 2 days, 4 tabs for 2 days, 3 tabs for 2 days, 2 tabs for 2 days 1 tab for 2 days 30 Tablet 0 4 Active Doxycycline Hyclate 100 MG Oral CapsuleIndications: OME (otitis media with effusion), right Take 1 Capsule by mouth in the morning and 1 Capsule before bedtime. Do all this for 7 days. Take for 7 days. 14 Capsule 0 4 04/14/19 24 Active Additional Information Patient not taking.Reported on 04/07/2023 [place] Caps 1 MG Oral Capsule TAKE ONE CAPSULE BY MOUTH ONCE DAILY AFTER DIALYSIS TREATMENT 30 Capsule 10 2 04/07/19 24 Additional Information Patient taking differently: 1 Capsule Oral Daily(Non-Specified), Every day - after dialysis on dialysis days on MWF, Reported on 04/07/2023 documented as of this encounter (statuses as of 04/08/2023) Active Problems Problem Noted Date Diagnosed Date [...] as of this encounter (statuses as of 04/08/2023) Resolved Problems Problem Noted Date Diagnosed Date [...] as of this encounter (statuses as of 04/08/2023) Immunizations Name Administration Dates Next Due COVID-19 mRNA, LNP-s, No Pre serve, 2-Dose Series ([email or web address]) 01/09/2021,06/03/2020,05/13/2020 COVID-19, MRNA-LNP, 23-24, P F, 30 [...] on file documented as of this encounter Last Filed Vital Signs Vital Sign Reading Time Taken Comments Blood Pressure 126/68 04/07/2023 3:23 PM EST Pulse 70 04/07/2023 3:23 PM EST Temperature 37.2 C (98.9 F) 04/07/2023 3:23 PM ES T Respiratory Rate 18 04/07/2023 3:23 PM EST Oxygen Saturation 95% 04/07/2023 3:23 PM EST Inhaled Oxygen Concentration - - Weight 79 kg (174 lb 1.6 oz) 04/07/2023 3:23 PM EST Height - - Body Mass Index 29.19 04/07/2023 1:19 PM EST documented in this encounter Functional Status Functional Status Response [...] as of this encounter Progress Notes * Lexis AndinoMALIA - 04/07/2023 3:28 PM EST Hematology/Oncology Outpatient Clinic note Heriberto Rose [address] [place], [place] [address] Name: Sonia Bernal Date: 04/07/2023 CHIEF COMPLAINT: Sonia Bernal is a 67 year old female here today for f/u visit today. Patient of Dr. Leoncio Xavier. From Patient chart confirmed with patient. From Dr. Leoncio Xavier note 09/01/22. 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 She has several comorbid conditions and so not consider surgical intervention at this time. 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 DATE OF DIAGNOSIS: 06/17/21 CURRENT TREATMENT: Gleevec for gastric stromal tumor started on 12/20/2021, currently on Gleevec at 200 mg per day - Gleevec was held for thyroid and parathyroid surgery 06/21/2022 - 09/01/2022--> advised to restart Gleevec at 200 mg per day She is having hemodialysis. DIAGNOSTIC WORKUP: She had ESRD earlier, was on hemodialysis followed by peritoneal dialysis then underwent renal transplant in 2017. Now she has transplant failure, now ESRD, she is on hemodialysis started recently about a month back. I reviewed her recent blood workup done on 07/09/2021: -SPEP --> normal protein -free kappa light chain --> 79, free lambda light chain 99, Calcium 0.88. -[id number] --> 31. She had a pre transplant evaluation with CT scan of the abdomen pelvis on 01/04/2021: -about 3 cm rounded mass located between left lobe of the liver and the gastric body. MRI of the abdomen done on 02/09/2021: - 2.6 x 3.1 x 2.5 cm solid mass within the gastrohepatic ligament region. Upper GI endoscopic ultrasound evaluation on 06/17/2021: -3.3 x 2.5 cm hypoechoic mass at rising from the gastric wall layer 4 noted. -biopsy showed stromal tumor as outlined below FNA from the gastric wall mass (06/17/2021)-spindle cell neoplasm, consistent with gastrointestinal stromal tumor. -Ki-67 shows more than 5 mitotic figures per 50 HPF. -CD 117 positive, DOG -1 positive, intact SDHB expression - MET amplification --> not detected -PTEN deletion --> not detected. OTHER IMPORTANT HISTORY: - COPD, discontinue smoking habit over 20 years back, she follows a community organization director Dr. Zapata, -ESRD. -hypothyroidism. - she was on oxygen therapy but lately she is not requiring any oxygen. - she has chronic left leg edema. HISTORY OF PRESENT ILLNESS: Sonia Bernal is a 67 year old female with a history as outlined above. Currently here for f/u visit today. Patient feeling much improved today. Continues on Gleevec 200 mg daily and tolerating well. Denies edema, rashes, loss of appetite, or nausea. Bowels moving every other day which is normal for her. Past Medical History: Diagnosis Date Chronic glomerulonephritis with unspecified pathological lesion in kidney one functioning kidney-remaining kidney functions at 80% ESRD on dialysis (HCC) 06/10/2021 Family history of malignant neoplasm of gastrointestinal tract Graves disease 04/13/2022 History of thyroid cancer 07/06/2022 HTN, goal to be determined Hypothyroidism Mood disorder (HCC) Postoperative hypothyroidism 07/06/2022 Severe obstructive sleep apnea 01/20/2017 VRE (vancomycin-resistant Enterococci) infection 10/13/202111/01 urine Past Surgical History: Procedure Laterality Date ANESTH, CS DELIVERY 11/23/1976 AV ACCESS, DIRECT ANASTOMOSIS Left 10/29/2020 ARTERIOVENOUS ANASTOMOSIS OPEN DIRECT ANY SITE performed by Vicente Mcgee MD at [facility] DELIVERY 1976 Delivery Only CHEMOTHERAPY Imatinib Mesylate 100mg COLONOSCOPY, DIAGNOSTIC (RECTUM) 05/14/2007 repeat in 1 year due to [facility] COLONOSCOPY, DIAGNOSTIC (RECTUM) 01/10/2014 diverticulosis, repeat 2 yrs/done @ [facility] COLONOSCOPY, DIAGNOSTIC (RECTUM) 01/28/2016 normal, repeat 2 yrs/[facility] COLONOSCOPY, DIAGNOSTIC (RECTUM) 05/14/2021 serrated adenomatous polyps, diverticulosis, repeat 3 yrs / [facility] COLORECTAL CANCER SCREEN; COLON 10/06/2006 repeat exam in 6 mos. marginal prep--family hx. CYSTOSCOPY 10/04/2011 DRAIN COMPL POSTOP WOUND INFECTION Left 11/23/2020 INCISION AND DRAINAGE COMPLEX POST OPERATIVE WOUND INFECT performed by Vicente Mcgee MD at [facility] EGD, FLEXIBLE, DIAGNOSTIC 04/01/2013 ESOPHAGOGASTRODUODENOSCOPY (EGD), FLEXIBLE, TRANSORAL, DIAGNOSTIC performed by Ariel Mckeon MD at [facility] [place]GD, W/ENDOSCOPIC US 04/01/2013 ESOPHAGOGASTRODUODENOSCOPY (EGD), FLEXIBLE, TRANSORAL, ENDOSCOPIC ULTRASOUND performed by Ariel Finney MD at [facility] [place]GD, W/ENDOSCOPIC US N/A 06/17/2021 ESOPHAGOGASTRODUODENOSCOPY (EGD), FLEXIBLE, TRANSORAL, ENDOSCOPIC ULTRASOUND performed by Christine Degroot MD at [facility] [place]GD, W/ENDOSCOPIC US N/A 12/15/2022 dilation CBD/gastric GIST/ESOPHAGOGASTRODUODENOSCOPY (EGD), FLEXIBLE, TRANSORAL, ENDOSCOPIC ULTRASOUND performed by Roger Dillon MD at [facility] EXPLORE PARATHYROID GLANDS N/A 06/28/2022 PARATHYROIDECTOMY performed by Tiago Kirk DO at [place] [facility] INSER TUNN ACC DEV;5 YRS/OLDER Right 01/22/2019 INSERT TUNNELED CENTRAL VENOUS ACCESS WITH SUBQ PORT performed by Bebeto Canseco DO at [facility] INSERT CANNULA, ARTERY-VEIN, CUSTOMER PROGRAM MANAGER 06/09/2011 ARTERIOVENOUS ANASTOMOSIS OPEN FOREARM VEIN performed by MAKSIM PORTILLO at [facility] INTRAPERITONEAL CATH INSERT FOR DIALYSIS 07/01/2011 INSERT INTERPERITONEAL CATHETER DRAINAGE OR DIALYSIS PERMANENT performed by MAKSIM PORTILLO at [facility] INTRAPERITONEAL CATH INSERT FOR DIALYSIS 12/20/2012 INSERT INTERPERITONEAL CATHETER DRAINAGE OR DIALYSIS PERMANENT performed by Jason Tyson MD at [place] [facility] INTRAPERITONEAL CATH REMOVAL 05/31/2013 REMOVE PERMANENT INTERPERITONEAL CATHETER performed by Jason Tyson MD at [place] [facility] INTRAPERITONEAL CATH REMOVAL N/A 11/03/2016 REMOVE PERMANENT INTERPERITONEAL CATHETER performed by Jason Tyson MD at [place] [facility] LAPAROSCOPY; CHOLECYSTECTOMY 11/06/2006 [facility]/ LIGATE/CUT OVIDUCT(S) 1978 REMOVAL OF THYROID GLAND N/A 06/28/2022 THYROIDECTOMY COMPLETE performed by Tiago Kirk DO at [place] [facility] RENAL BIOPSY, PERCUTANEOUS (TROCAR/NEEDLE) N/A 09/19/2016 RENAL BIOPSY PERCUTANEOUS performed by [facility] at [place] [facility] RENAL BIOPSY, PERCUTANEOUS (TROCAR/NEEDLE) N/A 10/12/2016 RENAL BIOPSY PERCUTANEOUS performed by Jason Tyson MD at [place] [facility] RENAL BIOPSY, PERCUTANEOUS (TROCAR/NEEDLE) N/A 11/03/2016 RENAL BIOPSY PERCUTANEOUS performed by Jason Tyson MD at [facility] TRANSPLANTATION OF KIDNEY 08/28/2016 RENAL TRANSPLANT performed by Zoran Finley MD at [place] [facility] Social History Socioeconomic History Marital status: Spouse name: Not on file Number of children: Not on file Years of education: Not on file Highest education level: Not on file Occupational History Not on file Tobacco Use Smoking status: Former Packs/day: 1.00 Years: 25.00 Additional pack years: 0.00 Total pack years: 25.00 Types: Cigarettes Quit date: 2002 Years since quittin.0 Passive exposure: Past Smokeless tobacco: Never Tobacco comments: Quit 10 years ago Vaping Use Vaping Use: Never used Substance and Sexual Activity Alcohol use: No Drug use: No Sexual activity: Not Currently Partners: Male Other Topics Concern Service Not Asked Blood Transfusions No Caffeine Concern Not Asked Occupational Exposure Not Asked Hobby Hazards Not Asked Sleep Concern Not Asked Stress Concern Not Asked Weight Concern Not Asked Special Diet Not Asked Back Care Not Asked Exercise Not Asked Bike Helmet Not Asked Seat Belt Not Asked Self-Exams Not Asked Social History Narrative Not on file Social Determinants of Health Financial Resource Strain: Not on file Food Insecurity: No Food Insecurity (04/07/2023) Hunger Vital Sign Worried About Running Out of Food in the Last Year: Never true Ran Out of Food in the Last Year: Never true Transportation Needs: Not on file Physical Activity: Not on file Stress: Not on file Social Connections: Not on file Intimate Partner Violence: Not on file Housing Stability: Not on file Review of patient's allergies indicates: Allergen Reactions Levofloxacin Diarrhea Other reaction(s): C-DIFF Current Outpatient Medications Medication Sig Dispense Refill Magnesium Oxide 400 (240 Mg) MG Tablet Take 1 Tablet by mouth in the morning. aspirin 81 MG chewable tablet Take 1 Tablet by mouth in the morning. with food.. 100 Tab 5 Lucas Caps 1 MG Oral Capsule TAKE ONE CAPSULE BY MOUTH ONCE DAILY AFTER DIALYSIS TREATMENT (Patient taking differently: Take 1 Capsule by mouth daily. Every day - after dialysis on dialysis days on MWF) 30 Capsule 10 Triamcinolone Acetonide 0.1 % External Cream (Aristocort) Apply topically to affected area on arms and abdomen twice daily for 2 weeks then daily for 2 weeks then twice per week as needed. 453.6 g 0 Calcium Acetate (Phos Binder) 667 MG Oral Capsule (Phoslo) TAKE TWO CAPSULES BY MOUTH THREE TIMES ADAY WITH MEALS AND ONE CAPSULE WITH SNACKS 720 Capsule 4 Levothyroxine Sodium 100 MCG Oral Tablet (Levoxyl) TAKE 1 TABLET BY MOUTH DAILY AT LEAST 30 MINUTESPRIOR TO FIRST MEAL OF THE DAY OR OTHER MEDICATIONS 90 Tablet 3 Compressor Nebulizer Inhale via nebulizer. Use as directed. 1 Each 1 Albuterol Sulfate (2.5 MG/3ML) 0.083% Inhalation Nebulization Solution (Proventil) Inhale 1 Vial via nebulizer every 4 hours as needed for Wheezing. 120 mL 5 Proventil HFA 108 (90 Base) MCG/ACT Inhalation Aerosol Solution Inhale 2 Puffs by mouth in the morning and 2 Puffs at noon and 2 Puffs in the evening and 2 Puffs before bedtime. 18 g 3 hydrALAZINE HCl 25 MG Oral Tablet (Apresoline) Take 1 Tablet by mouth in the morning and 1 Tablet in the evening. 200 Tablet 5 Gabapentin 100 MG Oral Capsule (Neurontin) Take 1 Capsule by mouth in the morning and 1 Capsule at noon and 1 Capsule before bedtime. 300 Capsule 3 Omeprazole 40 MG Oral Capsule Delayed Release (PriLOSEC) Take 1 Capsule by mouth in the morning. 100 Capsule 3 Polyethylene Glycol 3350 17 GM/SCOOP Oral Powder (Miralax) Take 17 g by mouth in the morning and 17g before bedtime. Dissolve one heaping tablespoon in 8 ounces of water or juice.. 255 g Docusate Sodium 100 MG Oral Capsule Take 1 Capsule by mouth in the morning and 1 Capsule before bedtime. 60 Capsule 11 Ondansetron HCl 8 MG Oral Tablet (Zofran) Take 1 Tablet by mouth every 8 hours as needed for Nausea. Take 1 tablet 30 to 60 minutes before imatinib (Gleevec) administration and every 8 hours as needed 90 Tablet 3 Prochlorperazine Maleate 10 MG Oral Tablet (Compazine) Take 1 Tablet by mouth every 6 hours as needed for Nausea. Take 1 tablet at bedtime and every 6 hours as needed 120 Tablet 3 Metoprolol Tartrate 25 MG Oral Tablet (Lopressor) Take 1.5 Tablets by mouth 2 times a day. 300 Tablet 3 amLODIPine Besylate 5 MG Oral Tablet (Norvasc) Take 2 Tablets by mouth in the morning. 200 Tablet 3 Imatinib Mesylate 100 MG Oral Tablet (Gleevec) Take 2 Tablets by mouth daily at noon. afternoon oxyCODONE-Acetaminophen 5-325 MG Oral Tablet (Percocet) Take 1 Tablet by mouth every 8 hours as needed for Pain, Severe. 45 Tablet 0 predniSONE 10 MG Oral Tablet (Deltasone) Take 5 tabs for 2 days, 4 tabs for 2 days, 3 tabs for 2 days, 2 tabs for 2 days 1 tab for 2 days 30 Tablet 0 Doxycycline Hyclate 100 MG Oral Capsule Take 1 Capsule by mouth in the morning and 1 Capsule beforebedtime. Do all this for 7 days. Take for 7 days. (Patient not taking: Reported on 04/07/2023) 14 Capsule 0 No current facility-administered medications for this visit. REVIEW OF SYSTEMS: See HPI - otherwise negative OBJECTIVE: Filed Vitals: 04/07/23 1523 BP: 126/68 Pulse: 70 Resp: 18 Temp: 37.2 C (98.9 F) SpO2: 95% Weight: 79 kg (174 lb 1.6 oz) Wt Readings from Last 5 Encounters: 04/07/23 79 kg (174 lb 1.6 oz) 04/07/23 78.5 kg (173 lb) 01/27/23 84 kg (185 lb 1.6 oz) 01/19/23 86.2 kg (190 lb 1.6 oz) 12/26/22 85.4 kg (188 lb 3.2 oz) PHYSICAL EXAM: ECOG: Performance Status 1 = 80-90% Symptoms but nearly ambulatory General Appearance: No acute distress Lymph Nodes: Normal - No palpable lymph nodes in the neck or supraclavicular areas Lungs/Thorax: Normal - Clear to auscultation Heart: Normal - Regular rate and rhythm, normal S1, S2, no appreciable murmurs Pulses/Extremities: Normal - 2+ throughout and symmetrical, no edema Abdomen: Normal - Soft, nontender, bowel sounds present, +obese abdomen Neurologic: alert and oriented x 4, +left facial droop, gait WNL LABS: Results for orders placed or performed in visit on 03/10/23 COMPREHENSIVE METABOLIC PANEL Result Value Ref Range BUN 14 6 - 20 mg/dL Creatinine 3.6 (H) 0.5 - 1.0 mg/dL Estimated Glomerular Filtration Rate 13 (L) >=60 mL/min Sodium 138 135 - 146 mmol/L Potassium 3.7 3.5 - 5.1 mmol/L Chloride 93 (L) 98 - 107 mmol/L CO2 33 (H) 22 - 32 mmol/L Anion Gap 12 7 - 15 mmol/L Glucose 134 (H) 70 - 120 mg/dL Albumin 4.0 3.8 - 5.0 g/dL AST 15 10 - 35 U/L Alkaline Phosphatase 25 (L) 35 - 130 U/L Bilirubin, Total 0.5 <=1.2 mg/dL Calcium 8.6 8.4 - 10.2 mg/dL Protein 5.8 (L) 6.0 - 8.3 g/dL ALT <5 (L) 10 - 35 U/L CBC Result Value Ref Range WBC 5.37 4.00 - 10.80 K/uL RBC 3.18 3.85 - 5.15 M/uL HGB 10.3 (L) 12.0 - 15.3 g/dL HCT 31.5 (L) 36.0 - 45.2 % MCV 99.1 81.5 - 97.5 fL MCH 32.4 27.0 - 34.0 pg MCHC 32.7 32.0 - 36.0 g/dL RDW 13.1 11.5 - 15.5 % PLT 140 140 - 400 K/uL MPV 8.7 6.6 - 11.1 fL DIFFERENTIAL, AUTOMATED Result Value Ref Range WBC 5.37 4.00 - 10.80 K/uL Neutrophils % 61.4 40.0 - 75.0 % Lymphocytes % 20.3 18.0 - 42.0 % Monocytes % 16.2 (H) 1.0 - 11.0 % Eosinophils % 1.5 0.0 - 6.0 % Basophils % 0.6 0.0 - 2.0 % Absolute Neutrophils 3.30 1.80 - 7.70 K/uL Absolute Lymphocytes 1.09 1.00 - 4.80 K/ul Absolute Monocytes 0.87 0.00 - 1.10 K/uL Absolute Eosinophils 0.08 0.00 - 0.70 K/uL Absolute Basophils 0.03 0.00 - 0.20 K/uL *Note: Due to a large number of results and/or encounters for the requested time period, some results have not been displayed. A complete set of results can be found in Results Review. IMPRESSION/PLAN: Gastric stromal tumor Encounter for chemotherapy She has several comorbid conditions and so not consider surgical intervention at this time. Currently on Gleevec at 200 mg per day - tolerating well -following with [facility] pharmacy - appreciate recommendations PET/CT 11/08/22 reviewed: significant for decreased size of previously identified gastric GIST between the lesser curvature of the stomach and the left hepatic lobe (now 2.7 cm) Continue monthly CBCd and CMP - will have completed next week Will continue restaging scans approximately every six months. Order placed for abdominal MRI for patient to have completed in approximately 3 months. Patient will have completed in AM of HD day so patient can have HD immediately following MRI. RTC in 3 months with physician with cbc/diff and cmp for scan review MALIA Kerns documented in this encounter Nursing Notes * Elma Bates LPN - 04/07/2023 3:25 PM EST Patient identifed by name and birthdate Do you have any concerns about pain management for today's visit? No Living Will or Advance Directive for Health Care as noted on the problem list. [facility] is a way you can talk to your provider on line through e-mail. Would you like to sign up? I can activate it for you? NO Filed Vitals: 04/07/23 1523 BP: 126/68 Pulse: 70 Resp: 18 Temp: 37.2 C (98.9 F) SpO2: 95% Weight: 79 kg (174 lb 1.6 oz) Patient was instructed to not get up on the exam table/exam chair until directed and assisted by their provider; patient is to remain seated in the chair/ wheelchair/ exam table/ exam chair for fall prevention and safety reasons. Patient is aware to have assistance to step down off exam table/exam chair with personnel. Patient voiced full comprehension of instructions. documented in this encounter Plan of Treatment Upcoming Encounters Date Type Department Care Team (Late st Contact Info) Description 05/05/2023 9:30 AM EST Pharmacy Pharmacy Hematology Oncology [address] [address] [facility], [facility] Clinic Hem/Onc 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) Expected: 07/07/2023, Expires: 10/06/2023 Scheduled Procedures Name Priority Associated Diagnoses Date/Ti [...] this encounter Medical Devices Implanted Type Area Physician Assistant Device Identifier Shelf Expiration Date Model / Serial / Lot Port Pwr Mri Isp Profile - [id number] Implanted:Qty: 1 on 01/22/2019 by Bebeto Canseco, DO at OR [facility] Right: Chest CR BARD : PERIPHERAL VASCULAR 02/10/2020 [id number] / / [id number] documented as of this encounter Visit Diagnoses Diagnosis 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 No Full Code 10/12/2016 3:15 PM 10/14/2016 6:57 PM Question Answer Comments Discussion of Advance Directives occurred with: Not Discussed Does the patient have a Living Will? No Does the patient have Health Care Power of Team Truck Driver? No Full Code 08/28/2016 7:34 AM 09/02/2016 8:09 PM Question Answer Comments Discussion of Advance Directives occurred with: Not Discussed Does the patient have a Living Will? No Does the patient have Health Care Power of Team Truck Driver? No Full Code 06/14/2013 8:04 PM 06/16/2013 7:32 PM This or annmarie reflects the patients wishes and were consensually agreed upon. Question Answer Comments Discussion of Advance Directives occurred with: Patient Does the patient have a Living Will? No Does the patient have Health Care Power of Team Truck Driver? No Care Teams Pewter Fabricator Relationship Specialty Start Date End Date Jameel Reyna DO [address] [place] [address] PCP - General Internal Medicine 03/15/22 documented as of this encounter
--- OUTSIDE RECORDS SUMMARY | 2023-06-02 16:19 | External Medical Summary | Summary of Care ---
Author Name Unknown Organization [facility] Address [address] [facility] [place] [address] Phone [phone] Care Team Providers Care Facilities Planner Name Role Phone Jameel Reyna DO Primary Care Provider [phone] Reason for Visit * Reason Onset Date Comments Medication Refill 04/27/2023 Encounter Details Date Type Department Care Team (Late st Contact Info) Description 04/27/2023 Telephone Hematology/Oncology [facility] [place] [address] [facility] [place] [address] Leoncio Xavier MD [address] [place] [address] Medication Refill Allergies Active Allergy Reactions Criticality Noted Date [...] B, by GOLD 2017 classification ([facility]) Inhale via nebulizer. Use as directed. 1 Each 1 09/29/2022 Active Albuterol Sulfate (2.5 MG/3ML) 0.083% Inhalation Nebulization Solution (Proventil)Indicati ons:COPD, group B, by GOLD 2017 classification ([facility]) Inhale 1 Vial via nebulizer every 4 hours as needed for Wheezing. 120 mL 09/29/2022 Active Proventil HFA 108 (90 Base) MCG/ACT Inhalation Aerosol SolutionIndications :COPD, group B, by GOLD 2017 classification ([facility]) Inhale 2 Puffs by mouth in the morning and 2 Puffs at noon and 2 Puffs in the evening and 2 Puffs before bedtime. 18 g 09/29/2022 Active hydrALAZINE HCl 25 MG Oral Tablet (Apresoline)Indicat ions:HTN, goal below 140/90,Hypertensive kidney disease with chronic kidney disease stage V ([facility]) Take 1 Tablet by mouth in the [...] stromal tumor (GIST) of stomach ([facility]) Take 1 Capsule by mouth in the [...] a day. 453.6 g 0 04/26/2023 Active documented as of this encounter (statuses [...] mRNA, LNP-s, No Pre serve, 2-Dose Series ([employer] 01/09/2021,06/03/2020,05/13/2020 COVID-19, MRNA-LNP, 23-24, P F, 30 MCG/0.3 mL, 12 YRS AND ABOVE, IM ([facility]) 12/26/2022 HepA Inact/HepB Recomb>=18yrs old 07/15/2011 PPD [...] encounter Miscellaneous Notes * Telephone Encounter - Nisha Bonilla CPhT - 04/27/2023 9:59 AM EST Pt called for Gleevec refill. Transferred to Hem Onc specialty line. Thank you, Natasha Bonilla Bed Laborer [facility] 04/27/2023,10:00 AM documented in this encounter Plan of Treatment Upcoming Encounters Date Type Department Care Team (Late st Contact Info) Description 05/02/2023 11:20 AM EST Office Visit Family Practice [address] [facility] [address] [place] [address] Jameel Reyna, [address] [place] [address] 05/05/2023 9:30 AM EST Pharmacy Pharmacy Hematology Oncology [address] [address] [facility], [facility] Hem/Onc [facility] [place] [address] 06/20/2023 2:20 PM EDT Office Visit Family Practice [address] [facility] [address] [place] [address] Jameel Reyna, [address] [place] [address] 07/07/2023 8:00 AM EDT Imaging Radiology [address], [place] [address] [facility] [place] [address] Scheduled Procedures Name Priority Associated Diagnoses Date/Ti [...] encounter Medical Devices Implanted Type Area Manager Facility Device Identifier Shelf Expiration Date Model / Serial / Lot Port Pwr Mri Isp Profile - [id number] Implanted:Qty: 1 on 01/22/2019 by Bebeto Canseco DO at OR [facility] Right: Chest CR BARD : PERIPHERAL VASCULAR 02/10/2020 [id number] / / [id number] documented as of this encounter Advance Directives [...] the patient have Health Care Power of Surgery Tech? No Full Code 10/12/2016 3:15 PM 10/14/2016 6:57 PM Question Answer Comments Discussion of Advance Directives occurred with: Not Discussed Does the patient have a Living Will? No Does the patient have Health Care Power of Surgery Tech? No Full Code 08/28/2016 7:34 AM 09/02/2016 8:09 PM Question Answer Comments Discussion of Advance Directives occurred with: Not Discussed Does the patient have a Living Will? No Does the patient have Health Care Power of Surgery Tech? No Full Code 06/14/2013 8:04 PM 06/16/2013 7:32 PM This or annmarie reflects the patients wishes and were consensually agreed upon. Question Answer Comments Discussion of Advance Directives occurred with: Patient Does the patient have a Living Will? No Does the patient have Health Care Power of Surgery Tech? No Care Teams Facilities Planner Relationship Specialty Start Date End Date Jameel Reyna DO [address] [place] [address] PCP - General Internal Medicine 03/15/22 documented as of this encounter
--- OUTSIDE RECORDS SUMMARY | 2023-06-02 16:19 | External Medical Summary | Summary of Care ---
Author Name Unknown Organization [facility] Address [address] [address] Phone [phone] Care Team Providers Care Herb Doctor Name Role Phone Jameel Reyna DO Primary Care Provider [phone] Reason for Visit * Reason Comments Follow Up ER and [facility] Encounter Details Date Type Department Care Team (Latest Contact Info) Description 04/07/2023 1:40 PM EST Office Visit Family Practice [facility] [address] [place] [address] Jameel Reyna DO [address] [place] [address] Butt's palsy*; Chronic hypoxemic respiratory failure ([facility]); Pulmonary hypertension, unspecified ([facility]); Gastrointestinal stromal tumor (GIST) of stomach ([facility]); Persistent migraine aura without cerebral infarction and without status migrainosus, not intractable; Postherpetic neuralgia; Hypertensive chronic kidney disease with stage 5 chronic kidney disease or end stage renal disease ([facility]); Hypothyroidism, unspecified type; Chronic midline low back pain without sciatica; Secondary hyperparathyroidism of renal origin ([facility]); ESRD on dialysis ([facility]); COPD, group B, by GOLD 2017 classification ([facility]); OME (otitis media with effusion), right; Anemia of chronic renal failure, stage 5 ([facility]); Gastroesophageal reflux disease, unspecified whether esophagitis present; Dyslipidemia, goal LDL below 100; Severe obstructive sleep apnea; Kidney transplant failure; Postoperative hypothyroidism Allergies Active Allergy Reactions Criticality Noted Date Comments Levofloxacin Diarrhea High 06/14/2021 Other reaction(s): C-DIFF documented as of this encounter (statuses as of 04/07/2023) Medications Medication Sig Dispensed Refills Start Date End Date Status Magnesium Oxide 400 (240 Mg) MG Tablet Take 1 Tablet by mouth in the morning. 0 Active aspirin 81 MG chewable tablet Take 1 Tablet by mouth in the morning. with food.. 100 Tab 5 8 Active [place] Caps 1 MG Oral Capsule TAKE ONE CAPSULE BY MOUTH ONCE DAILY AFTER DIALYSIS TREATMENT 30 Capsule 10 2 04/07/19 24 Active Additional Information Patient taking differently: 1 Capsule Oral Daily(Non-Specified), Every day - after dialysis on dialysis days on MWF, Reported on 04/07/2023 Triamcinolone Acetonide 0.1 % External Cream (Aristocort) [...] s:COPD, group B, by GOLD 2017 classification ([facility]) Inhale via nebulizer. Use as directed. 1 Each 1 3 Active Albuterol Sulfate (2.5 MG/3ML) 0.083% Inhalation Nebulization Solution (Proventil)Indicati ons:COPD, group B, by GOLD 2017 classification ([facility]) Inhale 1 Vial via nebulizer every 4 hours as needed for Wheezing. 120 mL 5 3 Active Proventil HFA 108 (90 Base) MCG/ACT Inhalation Aerosol SolutionIndications :COPD, group B, by GOLD 2017 classification ([facility]) Inhale 2 Puffs by mouth in the morning and 2 Puffs at noon and 2 Puffs in the evening and 2 Puffs before bedtime. 18 g 3 3 Active hydrALAZINE HCl 25 MG Oral Tablet (Apresoline)Indicat ions:HTN, goal below 140/90,Hypertensive kidney disease with chronic kidney disease stage V (HCC) Take 1 Tablet by mouth in the [...] 14 Capsule 0 4 04/14/19 24 Active Calcitriol 0.5 MCG Oral Capsule (Rocaltrol) Take 1 Capsule by mouth in the morning. 0 3 04/07/19 24 Discontinu ed(Medicat ion List Clean Up) oxyCODONE-Acetamino phen 5-325 MG Oral Tablet (Percocet)Indicatio ns:Chronic midline low back pain without sciatica,Mass of thoracic vertebra Take 1 Tablet by mouth every 8 hours as needed for Pain, Severe. 45 Tablet 0 3 04/07/19 24 Discontinu ed(Refill) Fluticasone Propionate 50 MCG/ACT Nasal Suspension (Flonase) Administer 1 Rhame into nostril daily as needed for Rhinitis. 0 04/07/19 24 Discontinu ed(Medicat ion List Clean Up) documented as of this encounter (statuses as of 04/07/2023) Active Problems Problem Noted Date Diagnosed Date [...] as of this encounter (statuses as of 04/07/2023) Resolved Problems Problem Noted Date Diagnosed Date Resolved Date Chronic obstructive pulmonary disease 04/07/2023 04/07/2023 Mediastinal mass 10/06/2022 12/27/2022 Chronic obstructive pulmonary disease 01/29/2022 03/24/2022 Overview: Per COPD GOLD Classification Gastrointestinal stromal tumor (GIST) 07/29/2021 08/19/2021 Overview: More specific on PL ESRD needing dialysis 03/15/2021 01/03/ 2022 Immunocompromised patient 12/09/2020 Hypothyroidism, unspecified 05/08/2020 05/17/2022 [...] as of this encounter (statuses as of 04/07/2023) Immunizations Name Administration Dates Next Due COVID-19 mRNA, LNP-s, No Pre serve, 2-Dose Series ([employer]) 01/09/2021,06/03/2020,05/13/2020 COVID-19, MRNA-LNP, 23-24, P F, 30 MCG/0.3 mL, 12 YRS AND ABOVE, IM ([employer]-Comirnaty) 12/26/2022 HepA Inact/HepB Recomb>=18yrs old 07/15/2011 PPD [...] Passive Smoke Exposure: Past Smokeless Tobacco: Never Tobacco Cessation:Counseling Given: Yes Comments:Quit 10 years ago Alcohol Use Standard [...] Sign Reading Time Taken Comments Blood Pressure 124/66 04/07/2023 1:19 PM EST Pulse 67 04/07/2023 1:19 PM EST Temperature 36.9 C (98.4 F) 04/07/2023 1:19 PM ES T Respiratory Rate - - Oxygen Saturation 97% 04/07/2023 1:19 PM EST Inhaled Oxygen Concentration - - Weight 78.5 kg (173 lb) 04/07/2023 1:19 PM EST Height 164.5 cm (5' 4.76") 04/07/2023 1:19 PM ES T Body Mass Index 29 04/07/2023 1:19 PM EST documented in this [...] as of this encounter Progress Notes * Jameel Reyna, - 04/07/2023 2:07 PM EST SUBJECTIVE: Sonia Bernal is a 67 year old female. Chief Complaint Patient presents with Follow Up ER and [facility] HPI: Patient is a 67 year old female with a history of CKD stage V on HD, renal transplant failure, COPD, chronic hypoxic respiratory failure, Sleep Apnea, gastric GIST tumor, HTN, Hyperlipidemia, GERD, Pulmonary HTN, Thyroid Cancer, thyroidectomy / parathyroidectomy, and Lumbar Disc Disease that is seen for follow up. No chest pain or shortness of breath is present. Fatigue is present all of the time. Appetite is decreased and weight is down. Patient was seen in the ED at [facility] for Butt's Palsy. Shewas admitted to [facility] on 03/15 due to nausea, Vomiting, and Hyperkalemia due to missing two dialysis treatments. 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 N03.9 ADVANCE DIRECTIVE INFORMATION LUMBAGO M54.50 Anemia of chronic renal failure N18.9, D63.1 Esophageal reflux K21.9 Uterine leiomyoma D25.9 Dyslipidemia, goal LDL below 100 E78.5 HTN, goal below 140/90 I10 Sigmoid diverticulosis K57.30 Kidney replaced by transplant Z94.0 Need for prophylactic immunotherapy Z29.89 Severe obstructive sleep apnea G47.33 Nocturnal hypoxemia G47.34 Postherpetic neuralgia B02.29 Migraine, unspecified, not intractable, without status migrainosus G43.909 Hypertensive kidney disease with chronic kidney disease stage V ([facility]) I12.0, N18.5 Chronic kidney disease (CKD), stage V ([facility]) N18.5 ESRD on dialysis ([facility]) N18.6, Z99.2 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 VRE (vancomycin-resistant Enterococci) infection A49.1, Z16.21 Kidney transplant failure T86.12 Pulmonary hypertension, unspecified ([facility]) I27.20 Chronic hypoxemic respiratory failure ([facility]) J96.11 COPD, group B, by GOLD 2017 classification ([facility]) J44.9 Graves disease E05.00 History of thyroid cancer Z85.850 Postoperative hypothyroidism E89.0 Dilated cbd, acquired K83.8 Persistent migraine aura without cerebral infarction and without status migrainosus, not intractable G43.509 Hypertensive chronic kidney disease with stage 5 chronic kidney disease or end stage renal disease ([facility]) I12.0 Hypothyroidism E03.9 Secondary hyperparathyroidism of renal origin ([facility]) N25.81 Current Outpatient Medications Medication Sig Dispense Refill [...] DAY OR OTHER MEDICATIONS 90 Tablet 3 hydrALAZINE HCl 25 MG Oral Tablet [...] 8 hours as needed 90 Tablet 3 Metoprolol Tartrate 25 MG Oral [...] Take for 7 days. 14 Capsule 0 Compressor Nebulizer Inhale via nebulizer. Use as [...] 2 Puffs before bedtime. 18 g 3 Prochlorperazine Maleate 10 MG Oral Tablet (Compazine) Take 1 Tablet by mouth every 6 hours as needed for Nausea. Take 1 tablet at bedtime and every 6 hours as needed 120 Tablet 3 No current facility-administered medications for this visit. The patient's medication list was reviewed and updated as needed. Past Medical History: Diagnosis Date Chronic glomerulonephritis [...] SITE performed by Vicente Mcgee MD at OR [facility] DELIVERY 1974 Delivery Only CHEMOTHERAPY Imatinib Mesylate 100mg COLONOSCOPY, DIAGNOSTIC (RECTUM) 05/14/2007 repeat in 1 year due to [facility] COLONOSCOPY, DIAGNOSTIC (RECTUM) 01/10/2014 diverticulosis, repeat 2 yrs/done @ [facility] COLONOSCOPY, DIAGNOSTIC (RECTUM) 01/28/2016 normal, repeat 2 yrs/[facility] COLONOSCOPY, DIAGNOSTIC (RECTUM) 05/14/2021 serrated adenomatous polyps, diverticulosis, repeat 3 yrs / [facility] COLORECTAL CANCER SCREEN; COLON 10/06/2006 repeat exam in 6 mos. marginal prep--family hx. CYSTOSCOPY 10/04/2011 DRAIN COMPL POSTOP WOUND INFECTION Left 11/23/2020 INCISION AND DRAINAGE COMPLEX POST OPERATIVE WOUND INFECT performed by Vicente Mcgee MD at OR [facility] EGD, FLEXIBLE, DIAGNOSTIC 04/01/2013 ESOPHAGOGASTRODUODENOSCOPY (EGD), FLEXIBLE, TRANSORAL, DIAGNOSTIC performed by Ariel Mckeon MD at ENDOSCOPY [facility] EGD, W/ENDOSCOPIC US 04/01/2013 ESOPHAGOGASTRODUODENOSCOPY (EGD), FLEXIBLE, TRANSORAL, ENDOSCOPIC ULTRASOUND performed by Ariel Finney MD at ENDOSCOPY [facility] EGD, W/ENDOSCOPIC US N/A 06/17/2021 ESOPHAGOGASTRODUODENOSCOPY (EGD), FLEXIBLE, TRANSORAL, ENDOSCOPIC ULTRASOUND performed by Christine Degroot MD at ENDOSCOPY [facility] EGD, W/ENDOSCOPIC US N/A 12/15/2022 dilation CBD/gastric GIST/ESOPHAGOGASTRODUODENOSCOPY (EGD), FLEXIBLE, TRANSORAL, ENDOSCOPIC ULTRASOUND performed by Roger Dillon MD at OR [facility] EXPLORE PARATHYROID GLANDS N/A 06/28/2022 PARATHYROIDECTOMY performed by Tiago Kirk DO at OR [facility] INSER TUNN ACC DEV;5 YRS/OLDER Right 01/22/2019 INSERT TUNNELED CENTRAL VENOUS ACCESS WITH SUBQ PORT performed by Bebeto Canseco DO at OR [facility] INSERT CANNULA, ARTERY-VEIN, CUSTOMS CONSULTANT 06/09/2011 ARTERIOVENOUS ANASTOMOSIS OPEN FOREARM VEIN performed by MAKSIM PORTILLO at [facility] INTRAPERITONEAL CATH INSERT FOR DIALYSIS 07/01/2011 INSERT INTERPERITONEAL CATHETER DRAINAGE OR DIALYSIS PERMANENT performed by MAKSIM PORTILLO at [facility] INTRAPERITONEAL CATH INSERT FOR DIALYSIS 12/20/2012 INSERT INTERPERITONEAL CATHETER DRAINAGE OR DIALYSIS PERMANENT performed by Jason Tyson MD at OR [facility] INTRAPERITONEAL CATH REMOVAL 05/31/2013 REMOVE PERMANENT INTERPERITONEAL CATHETER performed by Jason Tyson MD at [facility] INTRAPERITONEAL CATH REMOVAL N/A 11/03/2016 REMOVE PERMANENT INTERPERITONEAL CATHETER performed by Jason Tyson MD at OR [facility] LAPAROSCOPY; CHOLECYSTECTOMY 11/06/2006 Cholecystectomy, Laproscopic/[facility]/ LIGATE/CUT OVIDUCT(S) 1979 REMOVAL OF THYROID GLAND N/A 06/28/2022 THYROIDECTOMY COMPLETE performed by Tiago Kirk DO at OR [facility] RENAL BIOPSY, PERCUTANEOUS (TROCAR/NEEDLE) N/A 09/19/2016 RENAL BIOPSY PERCUTANEOUS performed by [facility] at OR [facility] RENAL BIOPSY, PERCUTANEOUS (TROCAR/NEEDLE) N/A 10/12/2016 RENAL BIOPSY PERCUTANEOUS performed by Jason Tyson MD at OR [facility] RENAL BIOPSY, PERCUTANEOUS (TROCAR/NEEDLE) N/A 11/03/2016 RENAL BIOPSY PERCUTANEOUS performed by Jason Tyson MD at OR [facility] TRANSPLANTATION OF KIDNEY 08/28/2016 RENAL TRANSPLANT performed by Zoran Finley MD at OR [facility] Review of patient's allergies indicates: Allergen Reactions Levofloxacin Diarrhea Other reaction(s): C-DIFF Review of Systems Constitutional: Positive for appetite change and fatigue. Negative for diaphoresis and fever. Weight is down Respiratory: Negative for cough, shortness of breath and wheezing. Cardiovascular: Negative for chest pain. Gastrointestinal: Positive for constipation. Negative for abdominal pain, diarrhea, nausea and vomiting. Genitourinary: Negative for dysuria and hematuria. Musculoskeletal: Positive for arthralgias and back pain. Negative for gait problem. Neurological: Negative for dizziness, syncope and headaches. Psychiatric/Behavioral: Positive for sleep disturbance. Negative for confusion and decreased concentration. OBJECTIVE: BP 124/66 | Pulse 67 | Temp 36.9 C (98.4 F) | Ht 1.645 m (5' 4.76") | Wt 78.5 kg (173 lb) | LMP105/03/2012 | SpO2 97% | BMI 29.00 kg/m | BSA 1.89 m Physical Exam Vitals and nursing note reviewed. Constitutional: General: She is not in acute distress. Appearance: She is not toxic-appearing. HENT: Head: Normocephalic and atraumatic. Right Ear: Ear canal normal. A middle ear effusion is present. Tympanic membrane is erythematous. Left Ear: Tympanic membrane and ear canal normal. Cardiovascular: Rate and Rhythm: Normal rate and regular rhythm. Heart sounds: No murmur heard. No gallop. Pulmonary: Effort: Pulmonary effort is normal. Breath sounds: Normal breath sounds. No wheezing, rhonchi or rales. Abdominal: General: Bowel sounds are normal. There is no distension. Palpations: Abdomen is soft. Tenderness: There is no abdominal tenderness. Musculoskeletal: Right lower leg: No edema. Left lower leg: No edema. Neurological: Mental Status: She is alert and oriented to person, place, and time. Mental status is at baseline. Motor: No weakness. Gait: Gait normal. Psychiatric: Mood and Affect: Mood normal. Behavior: Behavior normal. Thought Content: Thought content normal. 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 Secondary hyperparathyroidism of renal origin (HCC) ESRD on dialysis (HCC) COPD, group B, by GOLD 2017 classification (HCC) Continue Albuterol OME (otitis media with effusion), right - predniSONE 10 MG Oral Tablet (Deltasone); Take 5 tabs for 2 days, 4 tabs for 2 days, 3 tabs for 2days, 2 tabs for 2 days 1 tab for 2 days - Doxycycline Hyclate 100 MG Oral Capsule; Take 1 Capsule by mouth in the morning and 1 Capsule before bedtime. Do all this for 7 days. Take for 7 days. Anemia of chronic renal failure, stage 5 (HCC) Gastroesophageal reflux disease, unspecified whether esophagitis present Continue Omeprazole Dyslipidemia, goal LDL below 100 Severe obstructive sleep apnea Kidney transplant failure Postoperative hypothyroidism Continue Levothyroxine Records release for labs done four days ago at dialysis Follow Up: Return in about 3 months (around 07/07/2023), or if symptoms worsen or fail to improve. Jameel Reyna DO 2:07 PM 04/07/2023 * Clair Olivo RPh - 04/07/2023 1:08 PM EST Reports calcitriol was stopped about a week ago. documented in this encounter Plan of Treatment Upcoming Encounters Date Type Department Care Team (Late st Contact Info) Description 04/07/2023 3:30 PM EST Office Visit Hematology/Oncology [facility] [address] [place] [address] Lexis Andino CRNP [address] [facility] [place] [address] 05/05/2023 9:30 AM EST Pharmacy Pharmacy Hematology Oncology [facility] [address] [place] [address] [facility] Hem/Onc [address] [place] [address] 06/20/2023 2:20 PM EDT Office Visit Family Practice [address] [place] [address] [address] [place] [address] Jameel Reyna, DO [address] [place] [address] 08/03/2023 11:40 AM EDT Office Visit [facility] [address] [facility] [id number] Halima Morales[facility] [address] [facility] [address] Scheduled Procedures Name Priority Associated Diagnoses Date/Ti [...] this encounter Medical Devices Implanted Type Area Frontend Engineer Device Identifier Shelf Expiration Date Model / Serial / Lot Port Pwr Mri Isp Profile - [id number] Implanted:Qty: 1 on 01/22/2019 by Bebeto Canseco DO at OR [facility] Right: Chest CR BARD : PERIPHERAL VASCULAR 02/10/2020 [id number] / / [id number] documented as of this encounter Visit Diagnoses Diagnosis Butt's palsy- Primary Chronic hypoxemic respiratory failure (HCC) Chronic respiratory failure Pulmonary hypertension, unspecified (HCC) 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) Persistent migraine aura without cerebral infarction and without status migrainosus, not intractable Persistent migraine aura without cerebral infarction, without mention of intractable migraine without mention of status migrainosus Postherpetic neuralgia Herpes zoster with other nervous system complications Hypertensive chronic kidney disease with stage 5 chronic kidney disease or end stage renal disease (HCC) Hypothyroidism, unspecified type Chronic midline low back pain without sciatica Secondary hyperparathyroidism of renal origin (HCC) Secondary hyperparathyroidism (of renal origin) ESRD on dialysis (HCC) End stage renal disease COPD, group B, by GOLD 2017 classification ([facility]) OME (otitis media with effusion), right Anemia of chronic renal failure, stage 5 (HCC) Gastroesophageal reflux disease, unspecified whether esophagitis present Dyslipidemia, goal LDL below 100 Other and unspecified hyperlipidemia Severe obstructive sleep apnea Obstructive sleep apnea (adult) (pediatric) Kidney transplant failure Complications of transplanted kidney Postoperative hypothyroidism Postsurgical hypothyroidism documented in this encounter Advance Directives Latest [...] the patient have Health Care Power of [employer]? No Full Code 10/12/2016 3:15 PM 10/14/2016 6:57 PM Question Answer Comments Discussion of Advance Directives occurred with: Not Discussed Does the patient have a Living Will? No Does the patient have Health Care Power of [employer]? No Full Code 08/28/2016 7:34 AM 09/02/2016 8:09 PM Question Answer Comments Discussion of Advance Directives occurred with: Not Discussed Does the patient have a Living Will? No Does the patient have Health Care Power of [employer]? No Full Code 06/14/2013 8:04 PM 06/16/2013 7:32 PM This or annmarie reflects the patients wishes and were consensually agreed upon. Question Answer Comments Discussion of Advance Directives occurred with: Patient Does the patient have a Living Will? No Does the patient have Health Care Power of [employer]? No Care Teams Herb Doctor Relationship Specialty Start Date End Date Jameel Reyna DO [address] [facility] [place] [address] PCP - General Internal Medicine 03/15/22 documented as of this encounter
--- OUTSIDE RECORDS SUMMARY | 2023-06-02 16:19 | External Medical Summary | Summary of Care ---
Author Name Unknown Organization [facility] Address [address] [place] [facility] [place] [address] Phone [phone] Care Team Providers Care Carbon Electrodes Supervisor Name Role Phone Jameel Reyna DO Primary Care Provider Reason for Visit * Reason Onset Date Comments Advice 04/19/202304/19 Encounter Details Date Type Department Care Team (Late st Contact Info) Description 04/19/2023 Telephone Family Practice [facility] [address] [place] [address] Jameel Reyna DO [address] [place] [address] Advice (04/19) Allergies Active Allergy Reactions Criticality Noted Date Comments Levofloxacin Diarrhea High 06/14/2021 Other reaction(s): C-DIFF documented as of this encounter (statuses as of 04/19/2023) Medications Medication Sig Dispensed Refills Start Date [...] s:COPD, group B, by GOLD 2017 classification ([facility]) Inhale via nebulizer. Use as directed. 1 Each 1 09/29/2022 Active Albuterol Sulfate (2.5 MG/3ML) 0.083% Inhalation Nebulization Solution (Proventil)Indicati ons:COPD, group B, by GOLD 2017 classification ([facility]) Inhale 1 Vial via nebulizer every 4 hours as needed for Wheezing. 120 mL 09/29/2022 Active Proventil HFA 108 (90 Base) MCG/ACT Inhalation Aerosol SolutionIndications :COPD, group B, by GOLD 2017 classification ([facility]) Inhale 2 Puffs by mouth in the morning and 2 Puffs at noon and 2 Puffs in the evening and 2 Puffs before bedtime. 18 g 09/29/2022 Active hydrALAZINE HCl 25 MG Oral Tablet (Apresoline)Indicat ions:HTN, goal below 140/90,Hypertensive kidney disease with chronic kidney disease stage V ([facility]) Take 1 Tablet by mouth [...] (PriLOSEC)Indicatio ns:Gastrointestinal stromal tumor (GIST) of stomach ([facility]) Take 1 Capsule by mouth [...] 2 days 30 Tablet 0 04/10/2023 Active documented as of this encounter (statuses as of 04/19/2023) Active Problems Problem Noted Date Diagnosed Date [...] as of this encounter (statuses as of 04/19/2023) Resolved Problems Problem Noted Date Diagnosed Date [...] as of this encounter (statuses as of 04/19/2023) Immunizations Name Administration Dates Next Due COVID-19 mRNA, LNP-s, No Pre serve, 2-Dose Series ([employer]) 01/09/2021,06/03/2020,05/13/2020 COVID-19, MRNA-LNP, 23-24, P F, 30 MCG/0.3 mL, 12 YRS AND ABOVE, IM [facility] 12/26/2022 HepA Inact/HepB Recomb>=18yrs old 07/15/2011 PPD [...] Telephone Encounter - Leonie Mejía LPN - 04/19/2023 5:00 PM EST Call placed to patient and relayed information from Dr. Reyna. Patient acknowledged understanding and states she will comply. No further questions at this time. * Telephone Encounter - Jameel Reyna DO - 04/19/2023 4:52 PM EST Start Mucinex 600 mg two times a day * Telephone Encounter - Sonia Diego LPN - 04/19/2023 3:52 PM EST Returned call patient, her concern is runny nose. Nose running, clear in discharge. Denies cough or fever. * Telephone Encounter - Daisy Pate OSA - 04/19/2023 3:30 PM EST Pt calling to speak with Sonia. Pt states she still has a runny nose but has taken all the meds and is asking what she can do at this point. Please call Benjamín back at the home number. documented in this encounter Plan of Treatment Upcoming Encounters Date Type Department Care Team (Late st Contact Info) Description 05/02/2023 11:20 AM EST Office Visit Family Practice [facility] [address] [place] [address] Jameel Reyna, [address] [place] [address] 05/05/2023 9:30 AM EST Pharmacy Pharmacy Hematology Oncology [address] [facility], [facility] Hem/Onc [facility] [place] [address] 06/20/2023 2:20 PM EDT Office Visit [facility] [address] [place] [address] Jameel Reyna, [address] [place] [address] 07/07/2023 8:00 AM EDT Imaging Radiology [address] [facility] [place] [address] 08/03/2023 11:40 AM EDT Office Visit [facility] [address] [place] [phone] Halima Morales, [address] [place] [address] Scheduled Procedures Name Priority Associated Diagnoses Date/Ti [...] this encounter Medical Devices Implanted Type Area Top Waddy Device Identifier Shelf Expiration Date Model / Serial / Lot Port Pwr Mri Isp Profile - [id number] Implanted:Qty: 1 on 01/22/2019 by Bebeto Canseco DO at OR [facility] Right: Chest CR BARD : PERIPHERAL VASCULAR 02/10/2020 [id number] / / [id number] documented as of this encounter Advance Directives [...] the patient have Health Care Power of Pigs Feet Finisher? No Full Code 10/12/2016 3:15 PM 10/14/2016 6:57 PM Question Answer Comments Discussion of Advance Directives occurred with: Not Discussed Does the patient have a Living Will? No Does the patient have Health Care Power of Pigs Feet Finisher? No Full Code 08/28/2016 7:34 AM 09/02/2016 8:09 PM Question Answer Comments Discussion of Advance Directives occurred with: Not Discussed Does the patient have a Living Will? No Does the patient have Health Care Power of Pigs Feet Finisher? No Full Code 06/14/2013 8:04 PM 06/16/2013 7:32 PM This or annmarie reflects the patients wishes and were consensually agreed upon. Question Answer Comments Discussion of Advance Directives occurred with: Patient Does the patient have a Living Will? No Does the patient have Health Care Power of Pigs Feet Finisher? No Care Teams Carbon Electrodes Supervisor Relationship Specialty Start Date End Date Jameel Reyna DO [address] [place] [address] PCP - General Internal Medicine 03/15/22 documented as of this encounter
--- OUTSIDE RECORDS SUMMARY | 2023-06-02 16:19 | External Medical Summary | Summary of Care ---
Author Name Unknown Organization [facility] Address [address] [place] [address] Phone [phone] Care Team Providers Care Production Machine Shop Supervisor Name Role Phone Jameel Reyna DO Primary Care Provider [phone] Reason for Visit * Reason Comments Acute Encounter Details Date Type Department Care Team (Latest Contact Info) Description 04/26/2023 3:40 PM EST Office Visit Family Practice [address] [place] [address] [address] [place] [address] Jameel Reyna [address] [place] [address] Dermatitis*; ESRD on dialysis ([facility]); Gastrointestinal stromal tumor (GIST) of stomach ([facility]); COPD, group B, by GOLD 2017 classification ([facility]); Anemia of chronic renal failure, stage 5 ([facility]); Gastroesophageal reflux disease, unspecified whether esophagitis present; HTN, goal below 140/90; Severe obstructive sleep apnea; Chronic hypoxemic respiratory failure ([facility]); History of thyroid cancer; Postoperative hypothyroidism Allergies Active Allergy Reactions Criticality Noted Date Comments Levofloxacin Diarrhea High 06/14/2021 Other reaction(s): C-DIFF documented as of this encounter (statuses as of 04/26/2023) Medications Medication Sig Dispensed Refills Start Date [...] AND ONE CAPSULE WITH SNACKS 720 Capsule 3 08/05/19 24 Active Levothyroxine Sodium 100 MCG Oral Tablet (Levoxyl)Indication s:Postoperative hypothyroidism TAKE 1 TABLET BY MOUTH DAILY AT LEAST 30 MINUTES PRIOR TO FIRST MEAL OF THE DAY OR OTHER MEDICATIONS 90 Tablet 3 3 07/21/19 24 Active Compressor NebulizerIndication s:COPD, group B, by GOLD 2017 classification ([facility]) Inhale via nebulizer. Use as directed. 1 Each 3 Active Albuterol Sulfate (2.5 MG/3ML) 0.083% Inhalation Nebulization Solution (Proventil)Indicati ons:COPD, group B, by GOLD 2017 classification ([facility]) Inhale 1 Vial via nebulizer every 4 hours as needed for Wheezing. 120 mL 5 3 Active Proventil HFA 108 (90 Base) MCG/ACT Inhalation Aerosol SolutionIndications :COPD, group B, by GOLD 2017 classification ([facility]) Inhale 2 Puffs by mouth in the morning and 2 Puffs at noon and 2 Puffs in the evening and 2 Puffs before bedtime. 18 g 3 3 Active hydrALAZINE HCl 25 MG Oral Tablet (Apresoline)Indicat ions:HTN, goal below 140/90,Hypertensive kidney disease with chronic kidney disease stage V ([facility]) Take 1 Tablet by mouth [...] a day. 453.6 g 0 4 Active Triamcinolone Acetonide 0.1 % External Cream (Aristocort) Apply topically to affected area on arms and abdomen twice daily for 2 weeks then daily for 2 weeks then twice per week as needed. 453.6 g 0 3 04/26/19 24 Discontinu ed(Refill) Doxycycline Hyclate 100 MG Oral CapsuleIndications: OME (otitis media with effusion), right Take 1 Capsule by mouth in the morning and 1 Capsule before bedtime. Take for 7 days. 14 Capsule 0 4 04/26/19 24 Discontinu ed(Medicat ion List Clean Up) predniSONE 10 MG Oral Tablet (Deltasone)Indicati ons:OME (otitis media with effusion), right Take 5 tabs for 2 days, 4 tabs for 2 days, 3 tabs for 2 days, 2 tabs for 2 days 1 tab for 2 days 30 Tablet 0 4 04/26/19 24 Discontinu ed(Medicat ion List Clean Up) documented as of this encounter (statuses as of 04/26/2023) Active Problems Problem Noted Date Diagnosed Date [...] as of this encounter (statuses as of 04/26/2023) Resolved Problems Problem Noted Date Diagnosed Date [...] as of this encounter (statuses as of 04/26/2023) Immunizations Name Administration Dates Next Due COVID-19 mRNA, LNP-s, No Pre serve, 2-Dose Series ([employer]) 01/09/2021,06/03/2020,05/13/2020 COVID-19, MRNA-LNP, 23-24, P F, 30 [...] Sign Reading Time Taken Comments Blood Pressure 124/72 04/26/2023 3:34 PM EST Pulse 76 04/26/2023 3:34 PM EST Temperature 36.9 C (98.4 F) 04/26/2023 3:34 PM ES T Respiratory Rate 14 04/26/2023 3:34 PM EST Oxygen Saturation 96% 04/26/2023 3:34 PM EST Inhaled Oxygen Concentration - - Weight 82.8 kg (182 lb 8 oz) 04/26/2023 3:34 PM EST Height 164.5 cm (5' 4.75") 04/26/2023 3:34 PM ES T Body Mass Index 30.6 04/26/2023 3:34 PM EST documented in this encounter Functional [...] as of this encounter Progress Notes * MarywestJameel, DO - 04/26/2023 4:28 PM EST SUBJECTIVE: Sonia Bernal is a 67 year old female. Chief Complaint Patient presents with Acute HPI: Patient is a 67 year old female with a history of CKD stage V on HD, renal transplant failure, COPD, chronic hypoxic respiratory failure, Sleep Apnea, gastric GIST tumor, HTN, Hyperlipidemia, GERD, Pulmonary HTN, Thyroid Cancer, thyroidectomy / parathyroidectomy, and Lumbar Disc Disease that is seen for dermatitis. The patient has pruritic dermatitis between right second and third fingers. The rash is also on her chest and on the plantar surface of her left foot. The rash has been present for 1day. No chest pain or shortness of breath is present. Fatigue is present at all times and is unchanged. Appetite has improved. Left Butt's Palsy is improving slowly. 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 N03.9 ADVANCE DIRECTIVE INFORMATION LUMBAGO M54.50 Anemia of chronic renal failure N18.9, D63.1 Esophageal reflux K21.9 Uterine leiomyoma D25.9 Dyslipidemia, goal LDL below 100 E78.5 HTN, goal below 140/90 I10 Sigmoid diverticulosis K57.30 Kidney replaced by transplant Z94.0 Severe obstructive sleep apnea G47.33 Nocturnal hypoxemia G47.34 Postherpetic neuralgia B02.29 Migraine, unspecified, not intractable, without status migrainosus G43.909 Hypertensive kidney disease with chronic kidney disease stage V ([facility]) I12.0, N18.5 Chronic kidney disease (CKD), stage V ([facility]) N18.5 ESRD on dialysis ([facility]) N18.6, Z99.2 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-resistant Enterococci) infection A49.1, Z16.21 Kidney transplant failure T86.12 Pulmonary hypertension, unspecified ([facility]) I27.20 Chronic hypoxemic respiratory failure ([facility]) J96.11 COPD, group B, by GOLD 2017 classification ([facility]) J44.9 Graves disease E05.00 History of thyroid cancer Z85.850 Postoperative hypothyroidism E89.0 Dilated cbd, acquired K83.8 Persistent migraine aura without cerebral infarction and without status migrainosus, not intractable G43.509 Hypertensive chronic kidney disease with stage 5 chronic kidney disease or end stage renal disease (HCC) I12.0 Secondary hyperparathyroidism of renal origin (HCC) N25.81 Current Outpatient Medications Medication Sig Dispense Refill Magnesium Oxide 400 (240 Mg) MG Tablet Take 1 Tablet by mouth in the morning. aspirin 81 MG chewable tablet Take 1 Tablet by mouth in the morning. with food.. 100 Tab 5 Calcium Acetate (Phos Binder) 667 MG Oral Capsule (Phoslo) TAKE TWO CAPSULES BY MOUTH THREE TIMES ADAY WITH MEALS AND ONE CAPSULE WITH SNACKS 720 Capsule 4 Levothyroxine Sodium 100 MCG Oral Tablet (Levoxyl) TAKE 1 TABLET BY MOUTH DAILY AT LEAST 30 MINUTESPRIOR TO FIRST MEAL OF THE DAY OR OTHER MEDICATIONS 90 Tablet 3 Albuterol Sulfate (2.5 MG/3ML) 0.083% Inhalation Nebulization [...] needed for Pain, Severe. 45 Tablet 0 Triamcinolone Acetonide 0.1 % External Cream (Aristocort) Apply topically to affected area 2 times a day. 453.6 g 0 Compressor Nebulizer Inhale via nebulizer. Use as directed. 1 Each 1 Prochlorperazine Maleate 10 MG Oral Tablet (Compazine) [...] performed by Vicente Mcgee MD at OR [facility] DELIVERY 1974 Delivery Only CHEMOTHERAPY Imatinib Mesylate 100mg COLONOSCOPY, DIAGNOSTIC (RECTUM) 05/14/2007 repeat in 1 year due to [facility] COLONOSCOPY, DIAGNOSTIC (RECTUM) 01/10/2014 diverticulosis, repeat 2 yrs/done @ [facility] COLONOSCOPY, DIAGNOSTIC (RECTUM) 01/28/2016 normal, repeat 2 yrs/[facility] COLONOSCOPY, DIAGNOSTIC (RECTUM) 05/14/2021 serrated adenomatous polyps, diverticulosis, repeat 3 yrs / [facility] COLORECTAL CANCER SCREEN; COLON 10/06/2006 repeat exam in 6 mos. marginal prep--family hx. CYSTOSCOPY 10/04/2011 DRAIN COMPL POSTOP WOUND INFECTION Left 11/23/2020 INCISION AND DRAINAGE COMPLEX POST OPERATIVE WOUND INFECT performed by Vicente Mcgee MD at OR [facility] EGD, FLEXIBLE, DIAGNOSTIC 04/01/2013 ESOPHAGOGASTRODUODENOSCOPY (EGD), FLEXIBLE, TRANSORAL, DIAGNOSTIC performed by Ariel Mckeon MD at ENDOSCOPY [facility] EGD, W/ENDOSCOPIC US 04/01/2013 ESOPHAGOGASTRODUODENOSCOPY (EGD), FLEXIBLE, TRANSORAL, ENDOSCOPIC ULTRASOUND performed by Ariel Finney MD at ENDOSCOPY [facility] EGD, W/ENDOSCOPIC US N/A 06/17/2021 ESOPHAGOGASTRODUODENOSCOPY (EGD), FLEXIBLE, TRANSORAL, ENDOSCOPIC ULTRASOUND performed by Christine Degroot MD at ENDOSCOPY [facility] EGD, W/ENDOSCOPIC US N/A 12/15/2022 dilation CBD/gastric GIST/ESOPHAGOGASTRODUODENOSCOPY (EGD), FLEXIBLE, TRANSORAL, ENDOSCOPIC ULTRASOUND performed by Roger Dillon MD at OR [facility] EXPLORE PARATHYROID GLANDS N/A 06/28/2022 PARATHYROIDECTOMY performed by Tiago Kirk DO at OR [facility] INSER TUNN ACC DEV;5 YRS/OLDER Right 01/22/2019 INSERT TUNNELED CENTRAL VENOUS ACCESS WITH SUBQ PORT performed by Bebeto Canseco DO at OR [facility] INSERT CANNULA, ARTERY-VEIN, CAR FRAMER 06/09/2011 ARTERIOVENOUS ANASTOMOSIS OPEN FOREARM VEIN performed by MAKSIM PORTILLO at [facility] INTRAPERITONEAL CATH INSERT FOR DIALYSIS 07/01/2011 INSERT INTERPERITONEAL CATHETER DRAINAGE OR DIALYSIS PERMANENT performed by MAKSIM PORTILLO at [facility] INTRAPERITONEAL CATH INSERT FOR DIALYSIS 12/20/2012 INSERT INTERPERITONEAL CATHETER DRAINAGE OR DIALYSIS PERMANENT performed by Jason Tyson MD at [facility] INTRAPERITONEAL CATH REMOVAL 05/31/2013 REMOVE PERMANENT INTERPERITONEAL CATHETER performed by Jason Tyson MD at [facility] INTRAPERITONEAL CATH REMOVAL N/A 11/03/2016 REMOVE PERMANENT INTERPERITONEAL CATHETER performed by Jason Tyson MD at OR [facility] LAPAROSCOPY; CHOLECYSTECTOMY 11/06/2006 Cholecystectomy, Laproscopic/[facility]/ LIGATE/CUT OVIDUCT(S) 1978 REMOVAL OF THYROID GLAND N/A 06/28/2022 THYROIDECTOMY COMPLETE performed by Tiago Kirk DO at OR [facility] RENAL BIOPSY, PERCUTANEOUS (TROCAR/NEEDLE) N/A 09/19/2016 RENAL BIOPSY PERCUTANEOUS performed by [facility] at OR [facility] RENAL BIOPSY, PERCUTANEOUS (TROCAR/NEEDLE) N/A 10/12/2016 RENAL BIOPSY PERCUTANEOUS performed by Jason Tyson MD at OR [facility] RENAL BIOPSY, PERCUTANEOUS (TROCAR/NEEDLE) N/A 11/03/2016 RENAL BIOPSY PERCUTANEOUS performed by Jason Tyson MD at OR [facility] TRANSPLANTATION OF KIDNEY 08/28/2016 RENAL TRANSPLANT performed by Zoran Finley MD at OR [facility] Review of patient's allergies indicates: Allergen Reactions Levofloxacin Diarrhea Other reaction(s): C-DIFF Review of Systems Constitutional: Positive for fatigue. Negative for appetite change, chills, fever and unexpected weight change. Respiratory: Negative for cough, shortness of breath and wheezing. Cardiovascular: Negative for chest pain, palpitations and leg swelling. Gastrointestinal: Positive for constipation. Negative for abdominal pain, diarrhea, nausea and vomiting. Musculoskeletal: Positive for arthralgias and back pain. Skin: Positive for rash. Neurological: Negative for dizziness, syncope and headaches. Psychiatric/Behavioral: Negative for confusion, decreased concentration and sleep disturbance. OBJECTIVE: BP 124/72 | Pulse 76 | Temp 36.9 C (98.4 F) | Resp 14 | Ht 1.645 m (5' 4.75") | Wt 82.8 kg (182lb 8 oz) | LMP 03/02/2013 | SpO2 96% | BMI 30.60 kg/m | BSA 1.95 m Physical Exam Vitals and nursing note reviewed. Constitutional: General: She is not in acute distress. Appearance: Normal appearance. She is not toxic-appearing. HENT: Head: Normocephalic and atraumatic. Cardiovascular: Rate and Rhythm: Normal rate and regular rhythm. Heart sounds: Normal heart sounds. No murmur heard. No gallop. Pulmonary: Effort: Pulmonary effort is normal. Breath sounds: Normal breath sounds. No wheezing, rhonchi or rales. Abdominal: General: Bowel sounds are normal. There is no distension. Palpations: Abdomen is soft. Tenderness: There is no abdominal tenderness. Musculoskeletal: Right lower leg: No edema. Left lower leg: No edema. Skin: Comments: Maculopapular dermatitis between right second and third fingers. Maculopapular dermatitison her chest. Excoriated skin on the plantar surface of her left foot. Neurological: Mental Status: She is alert and oriented to person, place, and time. Mental status is at baseline. Motor: No weakness. Gait: Gait normal. Psychiatric: Mood and Affect: Mood normal. Behavior: Behavior normal. Thought Content: Thought content normal. PLAN AND ASSESSMENT: Dermatitis (Primary) - Start Triamcinolone Acetonide 0.1 % External Cream (Aristocort); Apply topically to affected area2 times a day. 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[facility]) Continue Imatinib per Oncology Follow up imaging per Oncology COPD, group B, by GOLD 2017 classification ([facility]) Continue Albuterol Anemia of chronic renal failure, stage 5 ([facility]) Gastroesophageal reflux disease, unspecified whether esophagitis present Continue Omeprazole HTN, goal below 140/90 Continue Metoprolol, Amlodipine, and hydralazine Severe obstructive sleep apnea Continue CPAP per Sleep Medicine Chronic hypoxemic respiratory failure ([facility]) History of thyroid cancer Postoperative hypothyroidism Continue Levothyroxine Follow Up: Return if symptoms worsen or fail to improve. Jameel Reyna DO 4:28 PM 04/26/2023 * Sonia Diego LPN - 04/26/2023 3:31 PM EST Lesion between middle and ring finger and sole of left foot documented in this encounter Plan of Treatment Upcoming Encounters Date Type Department Care Team (Late st Contact Info) Description 05/02/2023 11:20 AM EST Office Visit Family Practice [address] [facility] [address] [place] [address] Jameel Reyna DO [address] [place] [address] 05/05/2023 9:30 AM EST Pharmacy Pharmacy Hematology Oncology [facility] [address] [place] [facility] [place] [address] [facility] Hem/Onc [address] [facility] [place] [place] [address] 06/20/2023 2:20 PM EDT Office Visit Family Practice [address] [facility] [address] [place] [address] Jameel Reyna, [address] [place] [address] 07/07/2023 8:00 AM EDT Imaging Radiology [facility] [address] [facility] [place] [id number] Scheduled Procedures Name Priority Associated Diagnoses Date/Ti [...] this encounter Medical Devices Implanted Type Area Fleecer Device Identifier Shelf Expiration Date Model / Serial / Lot Port Pwr Mri Isp Profile - [id number] Implanted:Qty: 1 on 01/22/2019 by Bebeto Canseco DO at OR [facility] Right: Chest CR BARD : PERIPHERAL VASCULAR 02/10/2020 [id number] / / [id number] documented as of this encounter Visit Diagnoses Diagnosis Dermatitis- Primary Contact dermatitis and other eczema, due to unspecified cause ESRD on dialysis (HCC) End stage renal disease 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) COPD, group B, by GOLD 2017 classification (HCC) Anemia of chronic renal failure, stage 5 (HCC) Gastroesophageal reflux disease, unspecified whether esophagitis present HTN, goal below 140/90 Unspecified essential hypertension Severe obstructive sleep apnea Obstructive sleep apnea (adult) (pediatric) Chronic hypoxemic respiratory failure (HCC) Chronic respiratory failure History of thyroid cancer Personal history of malignant neoplasm of thyroid Postoperative hypothyroidism Postsurgical hypothyroidism documented in this [...] the patient have Health Care Power of Manager Of Regulatory Affairs? No Full Code 10/12/2016 3:15 PM 10/14/2016 6:57 PM Question Answer Comments Discussion of Advance Directives occurred with: Not Discussed Does the patient have a Living Will? No Does the patient have Health Care Power of Manager Of Regulatory Affairs? No Full Code 08/28/2016 7:34 AM 09/02/2016 8:09 PM Question Answer Comments Discussion of Advance Directives occurred with: Not Discussed Does the patient have a Living Will? No Does the patient have Health Care Power of Manager Of Regulatory Affairs? No Full Code 06/14/2013 8:04 PM 06/16/2013 7:32 PM This or annmarie reflects the patients wishes and were consensually agreed upon. Question Answer Comments Discussion of Advance Directives occurred with: Patient Does the patient have a Living Will? No Does the patient have Health Care Power of Manager Of Regulatory Affairs? No Care Teams Production Machine Shop Supervisor Relationship Specialty Start Date End Date Jameel Reyna DO [address] [place] [address] PCP - General Internal Medicine 03/15/22 documented as of this encounter
--- OUTSIDE RECORDS SUMMARY | 2023-06-02 16:19 | External Medical Summary | Summary of Care ---
Author Name Unknown Organization [facility] [address] [facility] [address] Phone [phone] Care Team Providers Care Integration Specialist Name Role Phone Jameel Reyna DO Primary Care Provider Reason for Visit * Reason Onset Date Comments Referral 04/26/2023 Dermatology Information 04/26/202304/26 Encounter Details Date Type Department Care Team (Late st Contact Info) Description 04/26/2023 Telephone Family Practice [address], [place] [address] [place] [address] Jameel Reyna DO [address] [place] [address] Referral (Dermatology); Information (04/26) Allergies Active Allergy Reactions Criticality Noted Date [...] B, by GOLD 2017 classification ([facility]) Inhale via nebulizer. Use as directed. 1 Each 09/29/2022 Active Albuterol Sulfate (2.5 MG/3ML) 0.083% Inhalation Nebulization Solution (Proventil)Indicati ons:COPD, group B, by GOLD 2017 classification ([facility]) Inhale 1 Vial via nebulizer every 4 hours as needed for Wheezing. 120 mL 09/29/2022 Active Proventil HFA 108 (90 Base) MCG/ACT Inhalation Aerosol SolutionIndications :COPD, group B, by GOLD 2017 classification ([facility]) Inhale 2 Puffs by mouth in the morning and 2 Puffs at noon and 2 Puffs in the evening and 2 Puffs before bedtime. 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 * Telephone Encounter - Jameel Reyna DO - 04/26/2023 2:29 PM EST Needs visit * Telephone Encounter - Leonie Mejía LPN - 04/26/2023 1:44 PM EST Call placed to patient for more information. Patient reports she has a red, blistered rash on her Right hand and Left foot. Reports it is very itchy. Symptoms started started yesterday. Denies any new medications or product use. States the blisters break open and drain. Requested derm referral. Informed pt if derm referral is ordered, it could take some time until scheduled. Offered OV. Pt reports she is unable to come in today for appt. Please advise. * Telephone Encounter - Daisy Verde OSA - 04/26/2023 1:10 PM EST Has "deep" rash on hand and on bottom of feet Bottom of feet really itch Wants a derm referral and wants seen sooner than later Please place referral documented in this encounter Plan of Treatment Upcoming Encounters Date Type Department Care Team (Late st Contact Info) Description 04/26/2023 3:40 PM EST Office Visit Family Practice [address] [place] [address] [address] [place] [address] Jameel Reyna, [address] [place] [address] 05/02/2023 11:20 AM EST Office Visit [address] [place] [phone] Jameel Reyna, [address] [place] [address] 05/05/2023 9:30 AM EST Pharmacy Pharmacy Hematology Oncology [facility] [address] [place] [address] [facility] Hem/Onc [address] [place] [address] 06/20/2023 2:20 PM EDT Office Visit Family [address] [place] [address] Jameel Reyna, [address] [place] [address] 07/07/2023 8:00 AM EDT Imaging Radiology [address], [place] [address] [facility] [place] [address] Scheduled Procedures Name Priority Associated Diagnoses Date/Ti [...] this encounter Medical Devices Implanted Type Area Certified Master Locksmith Device Identifier Shelf Expiration Date Model / Serial / Lot Port Pwr Mri Isp Profile - [id number] Implanted:Qty: 1 on 01/22/2019 by Bebeto Canseco DO at OR [facility] Right: Chest CR BARD : PERIPHERAL VASCULAR 02/10/2020 [id number] / / [id number] documented as of this encounter Advance Directives [...] the patient have Health Care Power of Air Pumper? No Full Code 10/12/2016 3:15 PM 10/14/2016 6:57 PM Question Answer Comments Discussion of Advance Directives occurred with: Not Discussed Does the patient have a Living Will? No Does the patient have Health Care Power of Air Pumper? No Full Code 08/28/2016 7:34 AM 09/02/2016 8:09 PM Question Answer Comments Discussion of Advance Directives occurred with: Not Discussed Does the patient have a Living Will? No Does the patient have Health Care Power of Air Pumper? No Full Code 06/14/2013 8:04 PM 06/16/2013 7:32 PM This or annmarie reflects the patients wishes and were consensually agreed upon. Question Answer Comments Discussion of Advance Directives occurred with: Patient Does the patient have a Living Will? No Does the patient have Health Care Power of Air Pumper? No Care Teams Integration Specialist Relationship Specialty Start Date End Date Jameel Reyna DO [address] [place] [address] PCP - General Internal Medicine 03/15/22 documented as of this encounter
--- OUTSIDE RECORDS SUMMARY | 2023-06-02 16:20 | External Medical Summary | Summary of Care ---
Author Name Unknown Organization [facility] Address [address] [facility] [place] [place] [address] Phone [phone] Care Team Providers Care Orthopaedic Physician Assistant Name Role Phone Jameel Reyna DO Primary Care Provider [phone] Reason for Visit * Reason Onset Date Comments Advice 03/30/202303/31 Encounter Details Date Type Department Care Team (Late st Contact Info) Description 03/30/2023 Telephone Family Practice 65 [facility] [address] [place] [address] Jameel Reyna DO [address] [place] [address] Advice (03/31) Allergies Active Allergy Reactions Criticality Noted Date Comments Levofloxacin High 06/14/2021 Other reaction(s): C-DIFF documented as of this encounter (statuses as of 03/31/2023) Medications Medication Sig Dispensed Refills Start Date [...] B, by GOLD 2017 classification ([facility]) Inhale via nebulizer. Use as directed. 1 Each 09/29/2022 Active Albuterol Sulfate (2.5 MG/3ML) 0.083% Inhalation Nebulization Solution (Proventil)Indicati ons:COPD, group B, by GOLD 2017 classification ([facility]) Inhale 1 Vial via nebulizer every 4 hours as needed for Wheezing. 120 mL 5 09/29/2022 Active Proventil HFA 108 (90 Base) MCG/ACT Inhalation Aerosol SolutionIndications :COPD, group B, by GOLD 2017 classification ([facility]) Inhale 2 Puffs by mouth in the morning and 2 Puffs at noon and 2 Puffs in the evening and 2 Puffs before bedtime. 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 45 Tablet 0 03/07/2023 Active Fluticasone Propionate 50 MCG/ACT Nasal Suspension (Flonase) Administer 1 [place] into nostril daily as needed for Rhinitis. 0 Active Imatinib Mesylate 100 MG Oral Tablet (Gleevec) Take 2 Tablets by mouth daily at noon. 0 Active documented as of this encounter (statuses as of 03/31/2023) Active Problems Problem Noted Date Diagnosed Date [...] as of this encounter (statuses as of 03/31/2023) Resolved Problems Problem Noted Date Diagnosed Date [...] as of this encounter (statuses as of 03/31/2023) Immunizations Name Administration Dates Next Due COVID-19 mRNA, LNP-s, No Pre serve, 2-Dose Series ([employer]) 01/09/2021,06/03/2020,05/13/2020 COVID-19, MRNA-LNP, 23-24, P F, 30 MCG/0.3 mL, 12 YRS AND ABOVE, IM ([employer]Comirnat) 12/26/2022 HepA Inact/HepB Recomb>=18yrs old 07/15/2011 PPD [...] Date Recorded PHQ Adult Total Score 0 03/20/2023 Hunger Vital Sign Answer Date Recorded Within the past 12 months, y ou worried that your food would run out before you got the money to buy more. Never true 03/20/19 24 Within the past 12 months, t he food you bought just didn't last and you didn't have money to get more. Never true 03/20/2023 Sex and Gender Information Value Date Recorded [...] Telephone Encounter - Leonie Mejía LPN - 03/31/2023 4:01 PM EST Call placed to patient and relayed information from Dr. Reyna. Confirmed next OV date and time. Ptacknowledged understanding. No questions at this time. * Telephone Encounter - Jameel Reyna DO - 03/31/2023 3:27 PM EST No additional recommendations at this time. Will evaluate at visit * Telephone Encounter - Leonie Mejía LPN - 03/31/2023 3:[address] Axel CLIFTON - please advise if any additional recommendations. Appt rescheduled to 04/04/23. * Telephone Encounter - Daisy Verde OSA - 03/31/2023 2:27 PM EST Cancelled to day due to weather, scheduled for first part of next week * Telephone Encounter - Jameel Reyna DO - 03/30/2023 1:34 PM EST Noted * Telephone Encounter - Sonia Diego LPN - 03/30/2023 11:54 AM EST Started with thick pnd a couple of days ago. Denies fever or chills. Is taking mucinex for pnd. Does have a humidifier, will use. Advised to get nasal saline. Encouraged to use flonase. Will keep scheduled appointment. Thank you * Telephone Encounter - Daisy Verde OSA - 03/30/2023 10:01 AM EST Has appt to be seen tomorrow afternoon * Telephone Encounter - Daisy Verde OSA - 03/30/2023 9:55 AM EST Has cold is coughing up phlegm Wants to be seen Please call and advise documented in this encounter Plan of Treatment Upcoming Encounters Date Type Department Care Team (Late st Contact Info) Description 04/04/2023 2:00 PM EST Office Visit Family Practice [address] [place] [address], [place] [phone] Jameel Reyna, [address] [place] [address], [place] [address] 04/06/2023 9:00 AM EST Office Visit Family Practice 65 [facility] 293 [place] [address] Jameel Reyna, 293 [facility], [place] [address] 04/06/2023 1:00 PM EST Laboratory Lab [address], [place] [address] [facility] [address] [place] [address], [place] [address] 04/07/2023 3:30 PM EST Office Visit Hematology/Oncology [facility] [place] [address] [facility] [address] Lexis Andino CRNP 400 [facility] [place] [address] 05/05/2023 9:30 AM EST Pharmacy Pharmacy Hematology Oncology [facility] [address] [place] [address] [facility] Hem/Onc [address] [place] [address] Scheduled Procedures Name Priority Associated Diagnoses Date/Ti me COLONOSCOPY FLEXIBLE PROXIMAL DIAGNOSTIC Recall History of colon polyps Health Maintenance Due Date Last Done Comments Alpha-1 Antitrypsin 11/21/1975 *COPD SEVERITY VERIFIED BY PFT 02/01/2022 Mammogram 03/15/2023 03/15/2022, 05/12, 10/01/2014, Additional history exists TSH 09/11/2023 09/10/2022, 08/11, 07/19/2022, Additional history exists O2 ASSESSMENT COMPLETED IN PAST YEAR FOR COPD 12/16/2023 12/15/2022 Depression Screening 03/20/2024 03/20/2023 COLONOSCOPY-EVERY 3 YRS AGES 18-100 05/14/2024 05/14/2021, [...] this encounter Medical Devices Implanted Type Area Jewel Diameter Gauger Device Identifier Shelf Expiration Date Model / Serial / Lot Port Pwr Mri Isp Profile - [id number] Implanted:Qty: 1 on 01/22/2019 by Bebeto Canseco DO at OR [facility] Right: Chest CR BARD : PERIPHERAL VASCULAR 02/10/2020 [id number] / / [id number] documented as of this encounter Advance Directives [...] the patient have Health Care Power of Metal Fabricator Apprentice? No Full Code 10/12/2016 3:15 PM 10/14/2016 6:57 PM Question Answer Comments Discussion of Advance Directives occurred with: Not Discussed Does the patient have a Living Will? No Does the patient have Health Care Power of Metal Fabricator Apprentice? No Full Code 08/28/2016 7:34 AM 09/02/2016 8:09 PM Question Answer Comments Discussion of Advance Directives occurred with: Not Discussed Does the patient have a Living Will? No Does the patient have Health Care Power of Metal Fabricator Apprentice? No Full Code 06/14/2013 8:04 PM 06/16/2013 7:32 PM This or annmarie reflects the patients wishes and were consensually agreed upon. Question Answer Comments Discussion of Advance Directives occurred with: Patient Does the patient have a Living Will? No Does the patient have Health Care Power of Metal Fabricator Apprentice? No Care Teams Orthopaedic Physician Assistant Relationship Specialty Start Date End Date Jameel Reyna DO [address] [place] [address] PCP - General Internal Medicine 03/15/22 documented as of this encounter
--- OUTSIDE RECORDS SUMMARY | 2023-06-02 16:20 | External Medical Summary | Summary of Care ---
Author Name Unknown Organization [facility] Address [address] [place] [address] Phone [phone] Care Team Providers Care Machine Puller Name Role Phone Jameel Reyna DO Primary Care Provider [phone] Reason for Visit * Reason Onset Date Comments Outpatient Testing 02/10/2023 Re: PSG Encounter Details Date Type Department Care Team (Late st Contact Info) Description 02/10/2023 Telephone Sleep Disorders Ctr [facility] [address] [place] [address] Mami Morales, [facility] [address] [place] [address] Outpatient Testing (Re: PSG) Allergies Active Allergy Reactions Criticality Noted Date Comments Levofloxacin High 06/14/2021 Other reaction(s): C-DIFF documented as of this encounter (statuses as of 04/05/2023) Medications Medication Sig Dispensed Refills Start Date [...] as needed. 453.6 g 0 3 Active Calcitriol 0.5 MCG Oral Capsule (Rocaltrol) Take 1 Capsule by mouth in the morning. 0 3 Active Calcium Acetate (Phos Binder) [...] B, by GOLD 2017 classification ([facility]) Inhale via nebulizer. Use as directed. 1 Each 1 3 Active Albuterol Sulfate (2.5 MG/3ML) 0.083% Inhalation Nebulization Solution (Proventil)Indicati ons:COPD, group B, by GOLD 2017 classification ([facility]) Inhale 1 Vial via nebulizer every 4 hours as needed for Wheezing. 120 mL 5 3 Active Proventil HFA 108 (90 Base) MCG/ACT Inhalation Aerosol SolutionIndications :COPD, group B, by GOLD 2017 classification ([facility]) Inhale 2 Puffs by mouth in the morning and 2 Puffs at noon and 2 Puffs in the evening and 2 Puffs before bedtime. 18 g 3 3 Active hydrALAZINE HCl 25 MG Oral Tablet (Apresoline)Indicat ions:HTN, goal below 140/90,Hypertensive kidney disease with chronic kidney disease stage V ([facility]) Take 1 Tablet by mouth in the morning and 1 Tablet in the evening. 200 Tablet 5 3 Active Additional Information Patient taking differently: 50 mgOral BID (0700,1900), Reported on 12/15/2022 Gabapentin 100 MG Oral Capsule (Neurontin)Indicati ons:Cramp of both lower extremities Take 1 Capsule by mouth in the morning and 1 Capsule at noon and 1 Capsule before bedtime. 300 Capsule 3 3 Active Omeprazole 40 MG Oral Capsule Delayed Release (PriLOSEC)Indicatio ns:Gastrointestinal stromal tumor (GIST) of stomach ([facility]) Take 1 Capsule by mouth [...] 2 times a day. 60 Capsule 11 3 Active Ondansetron HCl [...] for Pain, Severe. 45 Tablet 0 3 03/07/20 23 Discontinu ed(Refill) documented as of this encounter (statuses as of 04/05/2023) Active Problems Problem Noted Date Diagnosed Date [...] as of this encounter (statuses as of 04/05/2023) Resolved Problems Problem Noted Date Diagnosed Date [...] as of this encounter (statuses as of 04/05/2023) Immunizations Name Administration Dates Next Due COVID-19 mRNA, LNP-s, No Pre serve, 2-Dose Series ([employer]) 01/09/2021,06/03/2020,05/13/2020 COVID-19, MRNA-LNP, 23-24, P F, 30 MCG/0.3 mL, 12 YRS AND ABOVE, IM ([facility] 12/26/2022 HepA Inact/HepB Recomb>=18yrs old 07/15/2011 PPD [...] encounter Miscellaneous Notes * Telephone Encounter - Yousif Saldivar OSA - 04/05/2023 1:59 PM EST Pt is scheduled for August 02 at 11:40 am. Placed on wait list * Telephone Encounter - Halima Morales DO - 03/08/2023 3:58 PM EST CPAP 7-20 cwp was ordered 02/22/23. Needs f/u appt scheduled for first CPAP check. * Telephone Encounter - Sonia Diego LPN - 02/20/2023 4:48 PM EST Forwarding to sleep medicine again. Thank you * Telephone Encounter - Sonia Diego LPN - 02/10/2023 3:46 PM EST Patient had sleep testing done 01/11/2023 and states she has had done prior to this as well. Patient would like to have results and advise treatment Will forward to sleep medicine. documented in this encounter Plan of Treatment Upcoming Encounters Date Type Department Care Team (Late st Contact Info) Description 04/06/2023 9:00 AM EST Office Visit Family Practice 65 [facility] [address] [place] [address] Jameel Reyna, 293 [place] [id number] 04/06/2023 1:00 PM EST Laboratory Lab 65 [facility] [address] [place] [address] [place], Lab [address] [place], [place] [address], [place] [address] 04/07/2023 3:30 PM EST Office Visit Hematology/Oncology [address] [facility] [address] Lexis Andino CRNP [address] [place] [address] 05/05/2023 9:30 AM EST Pharmacy Pharmacy Hematology Oncology [facility] [address] [place] [address] [facility], [facility] Hem/Onc [address] [place] [address] 08/03/2023 11:40 AM EDT Office Visit Sleep Disorders Ctr [facility] [address] [place] [phone] Halima Morales, [address] [place] [address] Scheduled Procedures Name Priority Associated Diagnoses Date/Ti [...] this encounter Medical Devices Implanted Type Area Line Worker Device Identifier Shelf Expiration Date Model / Serial / Lot Port Pwr Mri Isp Profile - [id number] Implanted:Qty: 1 on 01/22/2019 by Bebeto Canseco, at OR [facility] Right: Chest CR BARD : PERIPHERAL VASCULAR 02/10/2020 [id number] / / [id number] documented as of this encounter Advance Directives [...] the patient have Health Care Power of Information Security Specialist? No Full Code 10/12/2016 3:15 PM 10/14/2016 6:57 PM Question Answer Comments Discussion of Advance Directives occurred with: Not Discussed Does the patient have a Living Will? No Does the patient have Health Care Power of Information Security Specialist? No Full Code 08/28/2016 7:34 AM 09/02/2016 8:09 PM Question Answer Comments Discussion of Advance Directives occurred with: Not Discussed Does the patient have a Living Will? No Does the patient have Health Care Power of Information Security Specialist? No Full Code 06/14/2013 8:04 PM 06/16/2013 7:32 PM This or annmarie reflects the patients wishes and were consensually agreed upon. Question Answer Comments Discussion of Advance Directives occurred with: Patient Does the patient have a Living Will? No Does the patient have Health Care Power of Information Security Specialist? No Care Teams Machine Puller Relationship Specialty Start Date End Date Jameel Reyna DO [address] [place] [address] PCP - General Internal Medicine 03/15/22 documented as of this encounter
--- OUTSIDE RECORDS SUMMARY | 2023-06-02 16:20 | External Medical Summary | Summary of Care ---
Author Name Unknown Organization [facility] Address [address] [place] [facility] [place] [place] [address] Phone [phone] Care Team Providers Care Corrections Sergeant Name Role Phone Jameel Reyna DO Primary Care Provider [phone] Reason for Visit * Reason Onset Date Comments Advice 03/30/202303/31 Encounter Details Date Type Department Care Team (Late st Contact Info) Description 03/30/2023 Telephone Family Practice 65 [facility] [address] [place] [address] Jameel Reyna DO [address] [place] [address] Advice (03/31) Allergies Active Allergy Reactions Criticality Noted Date Comments Levofloxacin High 06/14/2021 Other reaction(s): C-DIFF documented as of this encounter (statuses as of 04/03/2023) Medications Medication Sig Dispensed Refills Start Date [...] B, by GOLD 2017 classification ([facility]) Inhale via nebulizer. Use as directed. 1 Each 09/29/2022 Active Albuterol Sulfate (2.5 MG/3ML) 0.083% Inhalation Nebulization Solution (Proventil)Indicati ons:COPD, group B, by GOLD 2017 classification ([facility]) Inhale 1 Vial via nebulizer every 4 hours as needed for Wheezing. 120 mL 5 09/29/2022 Active Proventil HFA 108 (90 Base) MCG/ACT Inhalation Aerosol SolutionIndications :COPD, group B, by GOLD 2017 classification ([facility]) Inhale 2 Puffs by mouth in the morning and 2 Puffs at noon and 2 Puffs in the evening and 2 Puffs before bedtime. 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 0 Active Imatinib Mesylate 100 MG Oral Tablet (Gleevec) Take 2 Tablets by mouth daily at noon. 0 Active documented as of this encounter (statuses as of 04/03/2023) Active Problems Problem Noted Date Diagnosed Date [...] as of this encounter (statuses as of 04/03/2023) Resolved Problems Problem Noted Date Diagnosed Date [...] as of this encounter (statuses as of 04/03/2023) Immunizations Name Administration Dates Next Due COVID-19 mRNA, LNP-s, No Pre serve, 2-Dose Series ([employer]) 01/09/2021,06/03/2020,05/13/2020 COVID-19, MRNA-LNP, 23-24, P F, 30 MCG/0.3 mL, 12 YRS AND ABOVE, IM ([employer]-Comirnat) 12/26/2022 HepA Inact/HepB Recomb>=18yrs old 07/15/2011 PPD [...] AM EST Office Visit Family Practice 65 [facility] [address] [place] [address] Jameel Reyna, [address] [place] [address] 04/06/2023 1:00 PM EST Laboratory Lab [address] [address] [place], Lab [address] [place] [address] 04/07/2023 3:30 PM EST Office Visit Hematology/Oncology [facility] [address] [place] [address] Lexis Andino CRNP 400 [facility] [place] [address] 05/05/2023 9:30 AM EST Pharmacy Pharmacy Hematology Oncology [address] [place] [address] [facility] [address] [place] [address] Scheduled Procedures Name Priority Associated Diagnoses Date/Ti [...] this encounter Medical Devices Implanted Type Area Biomedical Engineering Professor Device Identifier Shelf Expiration Date Model / Serial / Lot Port Pwr Mri Isp Profile - [id number] Implanted:Qty: 1 on 01/22/2019 by Bebeto Canseco DO at OR [facility] Right: Chest CR BARD : PERIPHERAL VASCULAR 02/10/2020 [id number] / / [id number] documented as of this encounter Advance Directives [...] the patient have Health Care Power of Hazardous Materials Analyst? No Full Code 10/12/2016 3:15 PM 10/14/2016 6:57 PM Question Answer Comments Discussion of Advance Directives occurred with: Not Discussed Does the patient have a Living Will? No Does the patient have Health Care Power of Hazardous Materials Analyst? No Full Code 08/28/2016 7:34 AM 09/02/2016 8:09 PM Question Answer Comments Discussion of Advance Directives occurred with: Not Discussed Does the patient have a Living Will? No Does the patient have Health Care Power of Hazardous Materials Analyst? No Full Code 06/14/2013 8:04 PM 06/16/2013 7:32 PM This or annmarie reflects the patients wishes and were consensually agreed upon. Question Answer Comments Discussion of Advance Directives occurred with: Patient Does the patient have a Living Will? No Does the patient have Health Care Power of Hazardous Materials Analyst? No Care Teams Corrections Sergeant Relationship Specialty Start Date End Date Jameel Reyna DO 293 [facility] [place] [address] PCP - General Internal Medicine 03/15/22 documented as of this encounter
--- OUTSIDE RECORDS SUMMARY | 2023-06-02 16:20 | External Medical Summary | Summary of Care ---
Author Name Unknown Organization [facility] Address [address] [facility] [place] [address] Phone [phone] Care Team Providers Care Obstetrics Specialist Name Role Phone Jameel Reyna DO Primary Care Provider [phone] Reason for Visit * Reason Comments Dosage Adjustment In Person (Anticoag Cl inic) Medication Management Hospital Follow-Up Encounter Details Date Type Department Care Team (Late st Contact Info) Description 04/07/2023 1:10 PM [facility] Pharmacy Family Practice 65 [facility] [address] [place] [address] College, Pharmacist [address] [address] Encounter for long-term (current) use of medications* Allergies Active Allergy Reactions Criticality Noted Date [...] with food.. 100 Tab 5 08/13/2017 Active Lucas Caps 1 MG Oral Capsule TAKE ONE CAPSULE BY MOUTH ONCE DAILY AFTER DIALYSIS TREATMENT 30 Capsule 10 09/24/2021 01/26/20 24 Active Additional Information Patient taking differently: [...] group B, by GOLD 2017 classification ([facility]) Inhale via nebulizer. Use as directed. 1 Each 09/29/2022 Active Albuterol Sulfate (2.5 MG/3ML) 0.083% Inhalation Nebulization Solution (Proventil)Indicati ons:COPD, group B, by GOLD 2017 classification ([facility]) Inhale 1 Vial via nebulizer every 4 hours as needed for Wheezing. 120 mL 5 09/29/2022 Active Proventil HFA 108 (90 Base) MCG/ACT Inhalation Aerosol SolutionIndications :COPD, group B, by GOLD 2017 classification ([facility]) Inhale 2 Puffs by mouth in the morning and 2 Puffs at noon and 2 Puffs in the evening and 2 Puffs before bedtime. 18 g 3 09/29/2022 Active hydrALAZINE HCl 25 MG Oral Tablet (Apresoline)Indicat ions:HTN, goal below 140/90,Hypertensive kidney disease with chronic kidney disease stage V ([facility]) Take 1 Tablet by mouth in the morning and 1 Tablet in the evening. 200 Tablet 5 10/06/2022 Active Gabapentin 100 MG Oral Capsule [...] Pain, Severe. 45 Tablet 0 03/07/2023 Active Imatinib Mesylate 100 MG Oral Tablet (Gleevec) Take 2 Tablets by mouth daily at noon. afternoon 0 Active documented as of this encounter [...] mRNA, LNP-s, No Pre serve, 2-Dose Series ([employer]) 01/09/2021,06/03/2020,05/13/2020 COVID-19, MRNA-LNP, 23-24, P F, 30 MCG/0.3 mL, 12 YRS AND ABOVE, IM ([employer]-Comirnat) 12/26/2022 HepA Inact/HepB Recomb>=18yrs old 07/15/2011 PPD [...] as of this encounter Progress Notes * Karthik Olivoah Tiff, [facility] - 04/07/2023 12:55 PM EST Medication Therapy Disease Management Clinic - Medication Reconciliation Sonia Bernal is an 67 year old being seen for medication reconciliation. Prescription insurance information: [employer] Do you have any other prescription coverage: Yes, PACE Preferred pharmacy: [facility] ([facility]) [x] Problem list reviewed [x] Allergies reviewed and updated if needed [x] Drug interaction check completed [x] HEDIS list addressed Immunizations: Up to Date Date of Hospital Admission/Primary Diagnosis: 03/24/23 for ED visit for head injury, 03/15/23 for hyperkalemia at [facility] Medication changes during admission/on discharge: Added: none Modified: none Discontinued: none Does the patient currently have all of their medications in their home?: Yes. Reports her calcitriol was stopped last week by nephrology. Medication Organization/Adherence: Has home care nurse or caregiver: no Patient uses a pill box? Yes, refill(s) completed by self When you are at home, how often do you miss doses of medications? Never How difficult is it for you to pay for your medications? Not difficult at all How often do you experience side effects from your medications? Never Labs/Vitals/Risk Scores: The 10-year ASCVD risk score (Kirsten CARR, et al., 2019) is: 7.9% Values used to calculate the score: Age: 67 years Sex: Female Is Non- : No Diabetic: No Tobacco smoker: No Systolic Blood Pressure: 132 mmHg Is BP treated: Yes HDL Cholesterol: 52 mg/dL Total Cholesterol: 192 mg/dL BP Readings from Last 3 Encounters: 01/19/23 132/68 12/26/22 128/76 12/22/22 154/80 No results for input(s): "HGBA1C" in the last 07432 hours. Recent Labs Units 03/10/23 1502 01/19/23 1129 12/12/22 1617 ESTIMATED GLOMERULAR FILTRATION RATE - [facility] mL/min 13* 6* 9* Serum creatinine: 3.6 mg/dL (H) 03/10/23 1502 Estimated creatinine clearance: 16.6 mL/min (A) Assessment & Plan: Medication discrepancies identified: stopped calcitriol Dose/frequency of medications appropriate for current renal function? need to use gabapentin with caution. Consider dosing after dialysis sessions - 300mg TIW. Discussed with PCP. Other medication problems identified: none Patient education provided: none Referral pended for follow up management of: N/A Summary- Changes & Recommendations: Med rec completed with patient. Repeat med rec visit in 1 year Clair Jacome RPh Clinical Pharmacist - Sealer Operator Medication Therapy Management Clinic 04/07/2023, 12:55 PM documented in this encounter Plan of Treatment Upcoming Encounters Date Type Department Care Team (Late st Contact Info) Description 04/07/2023 3:30 PM EST Office Visit Hematology/Oncology [facility] [address] [place] [address] Lexis Andino CRNP [address] [place] [address] 05/05/2023 9:30 AM EST Pharmacy Pharmacy Hematology Oncology [facility] [place] [place] [address] [place] [address] [facility] [place] Hem/Onc [address] [facility] [place] [address] 08/03/2023 11:40 AM EDT Office Visit [facility] Disorders Ctr [facility] [address] [place] [phone] Halima Morales DO [address] [place] [address] Scheduled Procedures Name Priority Associated Diagnoses Date/Ti [...] this encounter Medical Devices Implanted Type Area Section Beamer Device Identifier Shelf Expiration Date Model / Serial / Lot Port Pwr Mri Isp Profile - [id number] Implanted:Qty: 1 on 01/22/2019 by Bebeto Canseco DO at OR [facility] Right: Chest CR BARD : PERIPHERAL VASCULAR 02/10/2020 [id number] / / [id number] documented as of this encounter Visit Diagnoses Diagnosis Encounter for long-term (current) use of medications- Primary Encounter for long-term (current) use of other medications documented in this encounter Advance Directives Latest [...] the patient have Health Care Power of Abrasive Mixer? No Full Code 10/12/2016 3:15 PM 10/14/2016 6:57 PM Question Answer Comments Discussion of Advance Directives occurred with: Not Discussed Does the patient have a Living Will? No Does the patient have Health Care Power of Abrasive Mixer? No Full Code 08/28/2016 7:34 AM 09/02/2016 8:09 PM Question Answer Comments Discussion of Advance Directives occurred with: Not Discussed Does the patient have a Living Will? No Does the patient have Health Care Power of Abrasive Mixer? No Full Code 06/14/2013 8:04 PM 06/16/2013 7:32 PM This or annmarie reflects the patients wishes and were consensually agreed upon. Question Answer Comments Discussion of Advance Directives occurred with: Patient Does the patient have a Living Will? No Does the patient have Health Care Power of Abrasive Mixer? No Care Teams Obstetrics Specialist Relationship Specialty Start Date End Date Jameel Reyna DO 293 [facility] [place] [address] PCP - General Internal Medicine 03/15/22 documented as of this encounter
--- OUTSIDE RECORDS SUMMARY | 2023-06-02 16:21 | External Medical Summary | Summary of Care ---
Author Name Unknown Organization [facility] Address [address] [place] [address] Phone [phone] Care Team Providers Care Passenger Service Manager Name Role Phone Jameel Reyna DO Primary Care Provider [phone] Reason for Visit * Reason Onset Date Comments Appointment 03/15/2023 advise Encounter Details Date Type Department Care Team (Late st Contact Info) Description 03/15/2023 Telephone Family Practice 65 [facility] [address] [place] [address] Jameel Reyna DO [address] [place] [address] Appointment (advise) Allergies Active Allergy Reactions Criticality Noted Date Comments Levofloxacin High 06/14/2021 Other reaction(s): C-DIFF documented as of this encounter (statuses as of 03/15/2023) Medications Medication Sig Dispensed Refills Start Date [...] s:COPD, group B, by GOLD 2017 classification ([facility]) Inhale via nebulizer. Use as directed. 1 Each 09/29/2022 Active Albuterol Sulfate (2.5 MG/3ML) 0.083% Inhalation Nebulization Solution (Proventil)Indicati ons:COPD, group B, by GOLD 2017 classification ([facility]) Inhale 1 Vial via nebulizer every 4 hours as needed for Wheezing. 120 mL 5 09/29/2022 Active Proventil HFA 108 (90 Base) MCG/ACT Inhalation Aerosol SolutionIndications :COPD, group B, by GOLD 2017 classification ([facility]) Inhale 2 Puffs by mouth in the morning and 2 Puffs at noon and 2 Puffs in the evening and 2 Puffs before bedtime. 18 g 3 09/29/2022 Active hydrALAZINE HCl 25 MG Oral Tablet (Apresoline)Indicat ions:HTN, goal below 140/90,Hypertensive kidney disease with chronic kidney disease stage V ([facility]) Take 1 Tablet by mouth [...] (PriLOSEC)Indicatio ns:Gastrointestinal stromal tumor (GIST) of stomach ([facility]) Take 1 Capsule by mouth [...] as of this encounter (statuses as of 03/15/2023) Active Problems Problem Noted Date Diagnosed Date [...] as of this encounter (statuses as of 03/15/2023) Resolved Problems Problem Noted Date Diagnosed Date [...] as of this encounter (statuses as of 03/15/2023) Immunizations Name Administration Dates Next Due COVID-19 mRNA, LNP-s, No Pre serve, 2-Dose Series ([employer]) 01/09/2021,06/03/2020,05/13/2020 COVID-19, MRNA-LNP, 23-24, P F, 30 MCG/0.3 mL, 12 YRS AND ABOVE, IM ([employer]-Comirnaty) 12/26/2022 HepA Inact/HepB Recomb>=18yrs old 07/15/2011 PPD [...] encounter Miscellaneous Notes * Telephone Encounter - Daisy Pate OSA - 03/15/2023 11:48 AM EST Attempted to confirm appt for tomorrow, however; Benjamín states that we need to cancel this as she is being admitted to [place] to do her dialysis. States they are keeping her over night. Her appt for tomorrow was cancelled. Benjamín was advised to reach out once Sonia has been released documented in this encounter Plan of Treatment Upcoming Encounters Date Type Department Care Team (Late st Contact Info) Description 03/20/2023 2:30 PM EST Telemedicine Virtual [facility] [address] [place] [address] [address] [place] [address] Patti Castanon RDN 106 [facility] [place] [address] 04/04/2023 2:00 PM EST Office Visit Family Practice 65 [facility] [address] [place] [address] Jameel Reyna, [address] [place] [address] 04/06/2023 1:00 PM EST Laboratory Lab 65 [facility] [address] [place] [address] [facility] [address] [place] [address] 04/07/2023 3:30 PM EST Office Visit Hematology/Oncology [facility] 200 [place] [address] Lexis Andino CRNP 400 [facility] [place] [address] 05/05/2023 9:30 AM EST Pharmacy Pharmacy Hematology Oncology [facility] [address] [facility] [place] [address] [facility] [place] Hem/Onc [address] [place] [address] Scheduled Procedures Name Priority Associated Diagnoses Date/Ti [...] this encounter Medical Devices Implanted Type Area Signal System Testing Maintainer Device Identifier Shelf Expiration Date Model / Serial / Lot Port Pwr Mri Isp Profile - [id number] Implanted:Qty: 1 on 01/22/2019 by Bebeto Canseco DO at OR [facility] Right: Chest CR BARD : PERIPHERAL VASCULAR 02/10/2020 [id number] / / [id number] documented as of this encounter Advance Directives [...] the patient have Health Care Power of Bad Cloth Checker? No Full Code 10/12/2016 3:15 PM 10/14/2016 6:57 PM Question Answer Comments Discussion of Advance Directives occurred with: Not Discussed Does the patient have a Living Will? No Does the patient have Health Care Power of Bad Cloth Checker? No Full Code 08/28/2016 7:34 AM 09/02/2016 8:09 PM Question Answer Comments Discussion of Advance Directives occurred with: Not Discussed Does the patient have a Living Will? No Does the patient have Health Care Power of Bad Cloth Checker? No Full Code 06/14/2013 8:04 PM 06/16/2013 7:32 PM This or annmarie reflects the patients wishes and were consensually agreed upon. Question Answer Comments Discussion of Advance Directives occurred with: Patient Does the patient have a Living Will? No Does the patient have Health Care Power of Bad Cloth Checker? No Care Teams Passenger Service Manager Relationship Specialty Start Date End Date Jameel Reyna DO 293 [facility] [place] [address] PCP - General Internal Medicine 03/15/22 documented as of this encounter
--- OUTSIDE RECORDS SUMMARY | 2023-06-02 16:21 | External Medical Summary | Summary of Care ---
Author Name Unknown Organization [facility] Address [address] [place] [address] Phone [phone] Care Team Providers Care Career Technical Supervisor Name Role Phone Jameel Reyna DO Primary Care Provider [phone] Reason for Visit * Reason Onset Date Comments Advice 03/30/2023 cold Encounter Details Date Type Department Care Team (Late st Contact Info) Description 03/30/2023 Telephone Family Practice [address] [facility] [address] [place] [address] Jameel Reyna DO [address] [place] [address] Advice (cold) Allergies Active Allergy Reactions Criticality Noted Date Comments Levofloxacin High 06/14/2021 Other reaction(s): C-DIFF documented as of this encounter (statuses as of 03/30/2023) Medications Medication Sig Dispensed Refills Start Date [...] s:COPD, group B, by GOLD 2017 classification ([facility]) Inhale via nebulizer. Use as directed. 1 Each 1 09/29/2022 Active Albuterol Sulfate (2.5 MG/3ML) 0.083% Inhalation Nebulization Solution (Proventil)Indicati ons:COPD, group B, by GOLD 2017 classification ([facility]) Inhale 1 Vial via nebulizer every 4 hours as needed for Wheezing. 120 mL 5 09/29/2022 Active Proventil HFA 108 (90 Base) MCG/ACT Inhalation Aerosol SolutionIndications :COPD, group B, by GOLD 2017 classification ([facility]) Inhale 2 Puffs by mouth in the morning and 2 Puffs at noon and 2 Puffs in the evening and 2 Puffs before bedtime. 18 g 3 09/29/2022 Active hydrALAZINE HCl 25 MG Oral Tablet (Apresoline)Indicat ions:HTN, goal below 140/90,Hypertensive kidney disease with chronic kidney disease stage V ([facility]) Take 1 Tablet by mouth in [...] (PriLOSEC)Indicatio ns:Gastrointestinal stromal tumor (GIST) of stomach ([facility]) Take 1 Capsule by mouth in [...] 50 MCG/ACT Nasal Suspension (Flonase) Administer 1 [place] into nostril daily as needed for Rhinitis. 0 Active Imatinib Mesylate 100 MG Oral Tablet (Gleevec) Take 2 Tablets by mouth daily at noon. 0 Active documented as of this encounter (statuses as of 03/30/2023) Active Problems Problem Noted Date Diagnosed Date [...] as of this encounter (statuses as of 03/30/2023) Resolved Problems Problem Noted Date Diagnosed Date [...] as of this encounter (statuses as of 03/30/2023) Immunizations Name Administration Dates Next Due COVID-19 mRNA, LNP-s, No Pre serve, 2-Dose Series ([employer] [facility]) 01/09/2021,06/03/2020,05/13/2020 COVID-19, MRNA-LNP, 23-24, P F, 30 MCG/0.3 mL, 12 YRS AND ABOVE, IM ([facility]) 12/26/2022 HepA Inact/HepB Recomb>=18yrs old 07/15/2011 PPD [...] Care Team (Late st Contact Info) Description 03/31/2023 3:30 PM EST Pharmacy Family Practice [address] [place] [address] College, Pharmacist [address] [place] [address] 03/31/2023 4:00 PM EST Office Visit Family Practice [address] [place] [address] Jameel Reyna, DO 293 [place] [address] 04/04/2023 2:00 PM EST Office Visit Family Practice 65 [facility] 293 [place] [address] Jameel Reyna, DO 293 [place] [address] 04/06/2023 1:00 PM EST Laboratory Lab 65 [facility] 293 [place] [address] [place], Lab [address] [place] [address], [place] [address] 04/07/2023 3:30 PM EST Office Visit [facility] 200 [facility] [place] [address] Lexis Andino CRNP [address] [place] [address] 05/05/2023 9:30 AM EST Pharmacy Pharmacy Hematology Oncology [facility] [address] [place] [address] [facility] Hem/Onc [address] [place] [address] Scheduled Procedures Name Priority Associated Diagnoses Date/Ti [...] this encounter Medical Devices Implanted Type Area Guide Plant Device Identifier Shelf Expiration Date Model / Serial / Lot Port Pwr Mri Isp Profile - [id number] Implanted:Qty: 1 on 01/22/2019 by Bebeto Canseco DO at OR [facility] Right: Chest CR BARD : PERIPHERAL VASCULAR 02/10/2020 [id number] / / [id number] documented as of this encounter Advance Directives [...] the patient have Health Care Power of Defensive Secondary Coach? No Full Code 10/12/2016 3:15 PM 10/14/2016 6:57 PM Question Answer Comments Discussion of Advance Directives occurred with: Not Discussed Does the patient have a Living Will? No Does the patient have Health Care Power of Defensive Secondary Coach? No Full Code 08/28/2016 7:34 AM 09/02/2016 8:09 PM Question Answer Comments Discussion of Advance Directives occurred with: Not Discussed Does the patient have a Living Will? No Does the patient have Health Care Power of Defensive Secondary Coach? No Full Code 06/14/2013 8:04 PM 06/16/2013 7:32 PM This or annmarie reflects the patients wishes and were consensually agreed upon. Question Answer Comments Discussion of Advance Directives occurred with: Patient Does the patient have a Living Will? No Does the patient have Health Care Power of Defensive Secondary Coach? No Care Teams Career Technical Supervisor Relationship Specialty Start Date End Date Jameel Reyna DO [address] [place] [address] PCP - General Internal Medicine 03/15/22 documented as of this encounter
--- OUTSIDE RECORDS SUMMARY | 2023-06-02 16:21 | External Medical Summary | Summary of Care ---
Author Name Unknown Organization [facility] Address [address] [facility] [address] Phone [phone] Care Team Providers Care Combination Machine Tool Operator Name Role Phone Jameel Reyna DO Primary Care Provider [phone] Reason for Visit * Reason Onset Date Comments Nutritional Services Documentation 03/23/2023 Encounter Details Date Type Department Care Team (Late st Contact Info) Description 03/23/2023 2:30 PM EST Scheduled Telephone Virtual Nutrition Services 65 [address] [facility] [address] [place] [address] Patti Castanon RDN 106 [facility] [address] Allergies Active Allergy Reactions Criticality Noted Date Comments Levofloxacin High 06/14/2021 Other reaction(s): C-DIFF documented as of this encounter (statuses as of 03/23/2023) Medications Medication Sig Dispensed Refills Start Date [...] B, by GOLD 2017 classification ([facility]) Inhale via nebulizer. Use as directed. 1 Each 1 09/29/2022 Active Albuterol Sulfate (2.5 MG/3ML) 0.083% Inhalation Nebulization Solution (Proventil)Indicati ons:COPD, group B, by GOLD 2017 classification ([facility]) Inhale 1 Vial via nebulizer every 4 hours as needed for Wheezing. 120 mL 5 09/29/2022 Active Proventil HFA 108 (90 Base) MCG/ACT Inhalation Aerosol SolutionIndications :COPD, group B, by GOLD 2017 classification ([facility]) Inhale 2 Puffs by mouth in the morning and 2 Puffs at noon and 2 Puffs in the evening and 2 Puffs before bedtime. 18 g 3 09/29/2022 Active hydrALAZINE HCl 25 MG Oral Tablet (Apresoline)Indicat ions:HTN, goal below 140/90,Hypertensive kidney disease with chronic kidney disease stage V ([facility]) Take 1 Tablet by mouth in [...] stromal tumor (GIST) of stomach ([facility]) Take 1 Capsule by mouth in [...] 50 MCG/ACT Nasal Suspension (Flonase) Administer 1 Waterflow into nostril daily as needed for Rhinitis. 0 Active Imatinib Mesylate 100 MG Oral Tablet (Gleevec) Take 2 Tablets by mouth daily at noon. 0 Active documented as of this encounter (statuses as of 03/23/2023) Active Problems Problem Noted Date Diagnosed Date [...] as of this encounter (statuses as of 03/23/2023) Resolved Problems Problem Noted Date Diagnosed Date [...] as of this encounter (statuses as of 03/23/2023) Immunizations Name Administration Dates Next Due COVID-19 mRNA, LNP-s, No Pre serve, 2-Dose Series (Lucid Colloids) 01/09/2021,06/03/2020,05/13/2020 COVID-19, MRNA-LNP, 23-24, P F, 30 MCG/0.3 mL, 12 YRS AND ABOVE, IM (Bubbleball-Comirnat) 12/26/2022 HepA Inact/HepB Recomb>=18yrs old 07/15/2011 PPD [...] encounter Miscellaneous Notes * Telephone Encounter - Patti Castanon RDN - 03/23/2023 3:27 PM EST 65 [facility] Dietitian Phone Outreach Contacted patient for nutrition follow up. Patient did not answer -- left a message requesting a call to the Dietitian at [phone] if there are specific questions and schedule follow up nutrition appointment. Sent a Apsalar message containing the following Jotky resources for food tmd teacher assistant in patient's area: [employer]: [phone] [place] [address]: [phone] [employer]: [phone] [facility] Pay by Shopping (deal united) Bank: [phone] [employer]: [phone] Patti Castanon RDN NUTRITION SERVICES [address] [place] [address] documented in this encounter Plan of Treatment Upcoming Encounters Date Type Department Care Team (Late st Contact Info) Description 03/28/2023 3:00 PM EST Pharmacy Family Practice [address] [place] [phone] College, Pharmacist [address] [place] [address] 03/28/2023 3:40 PM EST Office Visit Family Practice [address] [place] [address] [place] [phone] Jameel Reyna, 293 [facility] [place] [address] 04/04/2023 2:00 PM EST Office Visit Family Practice [address] [place] [address], [place] [address] Jameel Reyna, DO 293 [facility] [place] [address] 04/06/2023 1:00 PM EST Laboratory Lab 65 [facility] 293 [place] [address] College, Lab [address] [place] [address] 04/07/2023 3:30 PM EST Office Visit Hematology/Oncology [facility] 200 [facility] [place] [address] Lexis Andino CRNP 400 [facility] [address] 05/05/2023 9:30 AM EST Pharmacy Pharmacy Hematology Oncology [facility] 100 [place] [address] [facility], [facility] Hem/Onc [address] [place] [address] Scheduled Procedures Name Priority Associated Diagnoses Date/Ti [...] this encounter Medical Devices Implanted Type Area Clinical Trial Head Device Identifier Shelf Expiration Date Model / Serial / Lot Port Pwr Mri Isp Profile - [id number] Implanted:Qty: 1 on 01/22/2019 by Bebeto Canseco, at OR [facility] Right: Chest CR BARD : PERIPHERAL VASCULAR 02/10/2020 [id number] / / [id number] documented as of this encounter Advance Directives [...] the patient have Health Care Power of Garden Machinery Mechanic? No Full Code 10/12/2016 3:15 PM 10/14/2016 6:57 PM Question Answer Comments Discussion of Advance Directives occurred with: Not Discussed Does the patient have a Living Will? No Does the patient have Health Care Power of Garden Machinery Mechanic? No Full Code 08/28/2016 7:34 AM 09/02/2016 8:09 PM Question Answer Comments Discussion of Advance Directives occurred with: Not Discussed Does the patient have a Living Will? No Does the patient have Health Care Power of Garden Machinery Mechanic? No Full Code 06/14/2013 8:04 PM 06/16/2013 7:32 PM This or annmarie reflects the patients wishes and were consensually agreed upon. Question Answer Comments Discussion of Advance Directives occurred with: Patient Does the patient have a Living Will? No Does the patient have Health Care Power of Garden Machinery Mechanic? No Care Teams Combination Machine Tool Operator Relationship Specialty Start Date End Date Jameel Reyna DO [address] [place] [address] PCP - General Internal Medicine 03/15/22 documented as of this encounter
--- OUTSIDE RECORDS SUMMARY | 2023-06-02 16:21 | External Medical Summary | Summary of Care ---
Author Name Unknown Organization [facility] Address [address] [facility] [place] [address] Phone [phone] Care Team Providers Care Dosimetrist Name Role Phone Jameel Reyna DO Primary Care Provider [phone] Reason for Visit * Reason Comments Medical Nutrition Therapy Encounter Details Date Type Department Care Team (Late st Contact Info) Description 03/20/2023 2:30 PM EST Telemedicine Virtual Nutrition Services 65 [address] 3590 [facility] [address] [place], [place] [id number] Patti Castanon RDN [address] [place] [address] [place] [address] Chronic kidney disease (CKD), stage V (HCC)*; ESRD on dialysis (HCC) Allergies Active Allergy Reactions Criticality Noted Date Comments Levofloxacin High 06/14/2021 Other reaction(s): C-DIFF documented as of this encounter (statuses as of 03/20/2023) Medications Medication Sig Dispensed Refills Start Date [...] s:COPD, group B, by GOLD 2017 classification ([facility]) Inhale via nebulizer. Use as directed. 1 Each 1 09/29/2022 Active Albuterol Sulfate (2.5 MG/3ML) 0.083% Inhalation Nebulization Solution (Proventil)Indicati ons:COPD, group B, by GOLD 2017 classification ([facility]) Inhale 1 Vial via nebulizer every 4 hours as needed for Wheezing. 120 mL 5 09/29/2022 Active Proventil HFA 108 (90 Base) MCG/ACT Inhalation Aerosol SolutionIndications :COPD, group B, by GOLD 2017 classification ([facility]) Inhale 2 Puffs by mouth in the morning and 2 Puffs at noon and 2 Puffs in the evening and 2 Puffs before bedtime. 18 g 3 09/29/2022 Active hydrALAZINE HCl 25 MG Oral Tablet (Apresoline)Indicat ions:HTN, goal below 140/90,Hypertensive kidney disease with chronic kidney disease stage V ([facility]) Take 1 Tablet by mouth in the [...] as of this encounter (statuses as of 03/20/2023) Active Problems Problem Noted Date Diagnosed Date [...] as of this encounter (statuses as of 03/20/2023) Resolved Problems Problem Noted Date Diagnosed Date [...] as of this encounter (statuses as of 03/20/2023) Immunizations Name Administration Dates Next Due COVID-19 mRNA, LNP-s, No Pre serve, 2-Dose Series ([employer]) 01/09/2021,06/03/2020,05/13/2020 COVID-19, MRNA-LNP, 23-24, P F, 30 MCG/0.3 mL, 12 YRS AND ABOVE, IM (Digital FolioComnat) 12/26/2022 HepA Inact/HepB Recomb>=18yrs old 07/15/2011 PPD [...] this encounter Patient Instructions * Patient Instructions* Patti Castanon RDN - 03/20/2023 5:11 PM EST Current Goals: Discussed the following goals with patient who agrees to the following: Maintain weight documented in this encounter Progress Notes * Patti Castanon RDN - 03/20/2023 2:32 PM EST NUTRITION FOLLOW-UP NOTE - [address] [facility] Name: Sonia Bernal Location: [email or web address] [address] Date: 03/20/2023 Time: 2:32 PM After connecting to the patient via telephone, the patient was identified by name and date of . Patient was then informed that this was a telephone call only visit. The patient agreed to participate. Visit Disposition: Routine follow-up Total call duration was 11 minutes. Reason for Nutrition Follow-up: CKD Stage 5, on dialysis NUTRITION ASSESSMENT: Client History Patient reports recent hospitalization for hyperkalemia. Patient attributes hyperkalemia to diet---pork, sauerkraut and mashed potatoes (not soaked) amongst some of the foods consumed. Patient statesshe knows what she should be eating to avoid potassium. Patient has made good progress towards the following goals: Weight maintenance Support System: Spouse Barriers to Learning: Unable to determine at this time Special Education Needs: Unable to determine at this time Food/Nutrition-Related History Describes typical diet history/24 hr recall Breakfast: Cheerios with milk Snacks: very little---if does snack, Triscuits or Wheat thins, grapes Lunch: beef and noodles; water Snacks: not typically Dinner: beef and noodles; water Snacks: one Drinks: water, milk with cereal Restaurant meals: rare Diet Recall/Food Logs Indicate: AREAS FOR IMPROVEMENT: Poor meal distribution Inconsistent carbohydrate intake Inadequate fruit and vegetable intake Inadequate protein intake POSITIVE: Adequate calorie intake Food and Nutrient Intake and other pertinent information: Patient state she remains on a fluid restriction Physical Activity: Sedentary Medications Changes/Updates: Current Outpatient Medications Medication Sig Dispense Refill Magnesium Oxide 400 (240 Mg) MG Tablet Take 1 Tablet by mouth in the morning. aspirin 81 MG chewable tablet Take 1 Tablet by mouth in the morning. with food.. 100 Tab 5 Triamcinolone Acetonide 0.1 % External Cream (Aristocort) Apply topically to affected area on arms and abdomen twice daily for 2 weeks then daily for 2 weeks then twice per week as needed. 453.6 g 0 Calcitriol 0.5 MCG Oral Capsule (Rocaltrol) Take 1 Capsule by mouth in the morning. Calcium Acetate (Phos Binder) 667 MG Oral [...] morning and 1 Tablet in the evening. (Patient taking differently: Take 2 Tablets by mouth in the morning and 2 Tablets in the evening.) 200 Tablet 5 Gabapentin 100 MG Oral [...] 2 times a day. 60 Capsule 11 Ondansetron HCl 8 MG [...] mouth in the morning. 200 Tablet 3 oxyCODONE-Acetaminophen 5-325 MG Oral Tablet (Percocet) Take 1 Tablet by mouth every 8 hours as needed for Pain, Severe. 45 Tablet 0 Fluticasone Propionate 50 MCG/ACT Nasal Suspension (Flonase) Administer 1 Wayne into nostril daily as needed for Rhinitis. Imatinib Mesylate 100 MG Oral Tablet (Gleevec) Take 2 Tablets by mouth daily at noon. No current facility-administered medications for this visit. Nutrition-Focused Physical Findings Digestive system: Appetite: fair Nerves and cognition: Awake, alert Anthropometric Measurements Current Weight: Wt Readings from Last 1 Encounters: 01/27/23 84 kg (185 lb 1.6 oz) Wt Readings from Last 4 Encounters: 01/27/23 84 kg (185 lb 1.6 oz) 01/19/23 86.2 kg (190 lb 1.6 oz) 12/26/22 85.4 kg (188 lb 3.2 oz) 12/22/22 83.5 kg (184 lb 1.6 oz) Weight Change: stable BMI Readings from Last 1 Encounters: 01/27/23 31.03 kg/m Biochemical Data, Medical Tests, and Procedures Latest Reference Range & Units 03/10/23 15:02 Sodium 135 - 146 mmol/L 138 Potassium 3.5 - 5.1 mmol/L 3.7 Chloride 98 - 107 mmol/L 93 (L) CO2 22 - 32 mmol/L 33 (H) BUN 6 - 20 mg/dL 14 Creatinine 0.5 - 1.0 mg/dL 3.6 (H) Estimated Glomerular Filtration Rate >=60 mL/min 13 (L) Anion Gap 7 - 15 mmol/L 12 Glucose 70 - 120 mg/dL 134 (H) Calcium 8.4 - 10.2 mg/dL 8.6 Protein 6.0 - 8.3 g/dL 5.8 (L) (L): Data is abnormally low (H): Data is abnormally high Hemoglobin AIC Results: Lab Results Component Value Date/Time HEMOGLOBIN A1C - [facility] 5.8 (H) 12/27/2019 10:10 AM HEMOGLOBIN A1C - [facility] 5.8 (H) 11/26/2018 11:50 AM Previous Nutrition Diagnosis: Predicted suboptimal energy intake related to Poor meal distribution, Inadequate protein intake as evidenced by Reported diet and/or activity recall CURRENT NUTRITION DIAGNOSIS Same as previous NUTRITION INTERVENTION: NUTRITION EDUCATION Comprehensive nutrition education NUTRITION COUNSELING Strategies Motivational Interviewing Patient requesting information on food leonard or other food assistance programs---will call patient on 03/23 with requested information Nutrition Prescription: Diet: 2000 mg Sodium Consistent Carbohydrate Heart Healthy Low Fat/Low Cholesterol Low Phosphorus Low Potassium Yal[place] St. Jeor: Yal[place] St Jeor (Female): 1658.54 (03/20/23 1455) Daily Calorie Needs: 0699-8978 Kcals (25-30 kcal/kg) Daily Protein Needs: 101-109 Grams protein (1.2-1.3 grams protein/kg) Current Goals: Discussed the following goals with patient who agrees to the following: Maintain weight Dietitian Action: Reviewed foods high in potassium to avoid Discussed portion sizes of high potassium foods Encouraged patient to limit milk/milk products to no more than 2 servings daily Reviewed serving sizes of milk/dairy products Recommendations to Ordering Provider: Continue current plan of nutrition care. NUTRITION MONITORING AND EVALUATION: The following will be monitored and evaluated at the next visit: Monitor weight. Monitor labs. Monitor goals and progress. Plan: Will call patient (per patient's preference) with information on food assistance programs in her area 15 minutes Medical Nutrition Therapy Time In: 1432 (03/20/23 145) Time Out: 1443 (03/20/23 1455) 15 min (8-22 min) 30 min (23-37 min) 45 min (38-52 min) 60 min (53-67 min) 75 min (68-82 min) 90 min (83-97 min) 105 min (98-113 min) Patti Castanon RDN 03/20/2023 2:32 PM VIRTUAL NUTRITION SERVICES [address] documented in this encounter Plan of Treatment Upcoming Encounters Date Type Department Care Team (Late st Contact Info) Description 03/21/2023 2:00 PM EST Pharmacy Family Practice [address], [place] [phone] College, Pharmacist [address] [place] [address] 03/21/2023 2:20 PM EST Office Visit Family Practice [address] [place] [phone] Jameel Reyna, DO [address] [place] [address], [place] [address] 04/04/2023 2:00 PM EST Office Visit Family Practice [address], [place] [phone] Jameel Reyna, [address] [place] [address], [place] [address] 04/06/2023 1:00 PM EST Laboratory Lab [address], [place] [address] [place], Lab [address] [place] [address] 04/07/2023 3:30 PM EST Office Visit Hematology/Oncology [facility] 200 [facility], [place] [address] Lexis Andino CRNP 400 [facility] [place] [address] 05/05/2023 9:30 AM EST Pharmacy Pharmacy Hematology Oncology [facility] [address] [place] [address] [facility], [facility] Hem/Onc [address] [place] [address] Scheduled Procedures Name Priority Associated Diagnoses Date/Ti [...] this encounter Medical Devices Implanted Type Area Pickling Operator Device Identifier Shelf Expiration Date Model / Serial / Lot Port Pwr Mri Isp Profile - [id number] Implanted:Qty: 1 on 01/22/2019 by Bebeto Canseco, DO at OR [facility] Right: Chest CR BARD : PERIPHERAL VASCULAR 02/10/2020 [id number] / / [id number] documented as of this encounter Visit Diagnoses Diagnosis Chronic kidney disease (CKD), stage V (HCC)- Primary Chronic kidney disease, Stage V ESRD on dialysis (HCC) End stage renal disease documented in this encounter Advance Directives Latest [...] the patient have Health Care Power of Account Retention Representative? No Full Code 10/12/2016 3:15 PM 10/14/2016 6:57 PM Question Answer Comments Discussion of Advance Directives occurred with: Not Discussed Does the patient have a Living Will? No Does the patient have Health Care Power of Account Retention Representative? No Full Code 08/28/2016 7:34 AM 09/02/2016 8:09 PM Question Answer Comments Discussion of Advance Directives occurred with: Not Discussed Does the patient have a Living Will? No Does the patient have Health Care Power of Account Retention Representative? No Full Code 06/14/2013 8:04 PM 06/16/2013 7:32 PM This or annmarie reflects the patients wishes and were consensually agreed upon. Question Answer Comments Discussion of Advance Directives occurred with: Patient Does the patient have a Living Will? No Does the patient have Health Care Power of Account Retention Representative? No Care Teams Dosimetrist Relationship Specialty Start Date End Date Jameel Reyna DO [address] [place] [place] [address] PCP - General Internal Medicine 03/15/22 documented as of this encounter
--- OUTSIDE RECORDS SUMMARY | 2023-06-02 16:21 | External Medical Summary | Summary of Care ---
Author Name Unknown Organization [facility] Address [address] [place] [address] Phone [phone] Care Team Providers Care Agricultural Education Teacher Name Role Phone Jameel Reyna DO Primary Care Provider [phone] Reason for Visit * Reason Onset Date Comments Outpatient Testing 02/10/2023 Re: PSG Encounter Details Date Type Department Care Team (Late st Contact Info) Description 02/10/2023 Telephone Sleep Disorders Ctr [facility] [address] [facility] [place] [address] Mami Morales, [facility] [address] [place] [address] Outpatient Testing (Re: PSG) Allergies Active Allergy Reactions Criticality Noted Date Comments Levofloxacin High 06/14/2021 Other reaction(s): C-DIFF documented as of this encounter (statuses as of 03/28/2023) Medications Medication Sig Dispensed Refills Start Date [...] s:COPD, group B, by GOLD 2017 classification ([facility]) Inhale via nebulizer. Use as directed. 1 Each 1 3 Active Albuterol Sulfate (2.5 MG/3ML) 0.083% Inhalation Nebulization Solution (Proventil)Indicati ons:COPD, group B, by GOLD 2017 classification ([facility]) Inhale 1 Vial via nebulizer every 4 hours as needed for Wheezing. 120 mL 5 3 Active Proventil HFA 108 (90 Base) MCG/ACT Inhalation Aerosol SolutionIndications :COPD, group B, by GOLD 2017 classification ([facility]) Inhale 2 Puffs by mouth in the morning and 2 Puffs at noon and 2 Puffs in the evening and 2 Puffs before bedtime. 18 g 3 3 Active hydrALAZINE HCl 25 MG Oral Tablet (Apresoline)Indicat ions:HTN, goal below 140/90,Hypertensive kidney disease with chronic kidney disease stage V ([facility]) Take 1 Tablet by mouth [...] (PriLOSEC)Indicatio ns:Gastrointestinal stromal tumor (GIST) of stomach ([facility]) Take 1 Capsule by mouth [...] as of this encounter (statuses as of 03/28/2023) Active Problems Problem Noted Date Diagnosed Date [...] as of this encounter (statuses as of 03/28/2023) Resolved Problems Problem Noted Date Diagnosed Date [...] as of this encounter (statuses as of 03/28/2023) Immunizations Name Administration Dates Next Due COVID-19 mRNA, LNP-s, No Pre serve, 2-Dose Series ([employer]) 01/09/2021,06/03/2020,05/13/2020 COVID-19, MRNA-LNP, 23-24, P F, 30 MCG/0.3 mL, 12 YRS AND ABOVE, IM ([employer]-Comirnat) 12/26/2022 HepA Inact/HepB Recomb>=18yrs old 07/15/2011 PPD [...] 9:41 AM EST Sexual Orientation Straight 03/24/2022 9 :41 AM EST Job Start Date Occupation Industry [...] encounter Miscellaneous Notes * Telephone Encounter - Halima Morales DO [...] 3:00 PM EST Pharmacy Family Practice [address] [place] [address] College, Pharmacist [address] [place] [address] 03/28/2023 3:40 PM EST Office Visit Family Practice [address] [place] [address] Jameel Reyna DO 293 [facility] [place] [address] 04/04/2023 2:00 PM EST Office Visit Family Practice [address] [place] [address] Jameel Reyna 293 [facility] [place] [address] 04/06/2023 1:00 PM EST Laboratory Lab [address] [facility] [address] [place] [address] College, Lab [address] [place] [address] 04/07/2023 3:30 PM EST Office Visit Hematology/Oncology [facility] 200 [facility] [place] [address] Lexis Andino CRNP [address] [place] [address] 05/05/2023 9:30 AM EST Pharmacy Pharmacy Hematology Oncology [facility] 100 [place] [address] [facility] Hem[facility]Onc [address] [place] [address] Scheduled Procedures Name Priority Associated Diagnoses Date/Ti [...] this encounter Medical Devices Implanted Type Area Tool Sharpener Device Identifier Shelf Expiration Date Model / Serial / Lot Port Pwr Mri Isp Profile - [id number] Implanted:Qty: 1 on 01/22/2019 by Bebeto Canseco DO at OR [facility] Right: Chest CR BARD : PERIPHERAL VASCULAR 02/10/2020 [id number] / / [id number] documented as of this encounter Advance Directives [...] the patient have Health Care Power of Tester Wafer Substrate? No Full Code 10/12/2016 3:15 PM 10/14/2016 6:57 PM Question Answer Comments Discussion of Advance Directives occurred with: Not Discussed Does the patient have a Living Will? No Does the patient have Health Care Power of Tester Wafer Substrate? No Full Code 08/28/2016 7:34 AM 09/02/2016 8:09 PM Question Answer Comments Discussion of Advance Directives occurred with: Not Discussed Does the patient have a Living Will? No Does the patient have Health Care Power of Tester Wafer Substrate? No Full Code 06/14/2013 8:04 PM 06/16/2013 7:32 PM This or annmarie reflects the patients wishes and were consensually agreed upon. Question Answer Comments Discussion of Advance Directives occurred with: Patient Does the patient have a Living Will? No Does the patient have Health Care Power of Tester Wafer Substrate? No Care Teams Agricultural Education Teacher Relationship Specialty Start Date End Date Jameel Reyna DO 293 [place] [address] PCP - General Internal Medicine 03/15/22 documented as of this encounter
--- OUTSIDE RECORDS SUMMARY | 2023-06-02 16:21 | External Medical Summary | Summary of Care ---
Author Name Unknown Organization [facility] Address [address] [place] [address] Phone [phone] Care Team Providers Care Stamping Operator Name Role Phone Jameel Reyna DO Primary Care Provider [phone] Reason for Visit * Reason Onset Date Comments Advice 03/30/202303/31 Encounter Details Date Type Department Care Team (Late st Contact Info) Description 03/30/2023 Telephone Family Practice [address] [facility] [address] [place] [address] Jameel Reyna DO 293 [place] [address] Advice (03/31) Allergies Active Allergy [...] B, by GOLD 2017 classification ([facility]) Inhale via nebulizer. Use as directed. 1 Each 09/29/2022 Active Albuterol Sulfate (2.5 MG/3ML) 0.083% Inhalation Nebulization Solution (Proventil)Indicati ons:COPD, group B, by GOLD 2017 classification ([facility]) Inhale 1 Vial via nebulizer every 4 hours as needed for Wheezing. 120 mL 5 09/29/2022 Active Proventil HFA 108 (90 Base) MCG/ACT Inhalation Aerosol SolutionIndications :COPD, group B, by GOLD 2017 classification ([facility]) Inhale 2 Puffs by mouth in the morning and 2 Puffs at noon and 2 Puffs in the evening and 2 Puffs before bedtime. 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 [...] mRNA, LNP-s, No Pre serve, 2-Dose Series (MOOVIA) 01/09/2021,06/03/2020,05/13/2020 COVID-19, MRNA-LNP, 23-24, P F, 30 MCG/0.3 mL, 12 YRS AND ABOVE, IM (Secoo-Comirnat) 12/26/2022 HepA Inact/HepB Recomb>=18yrs old 07/15/2011 PPD [...] encounter Miscellaneous Notes * Telephone Encounter - Jmaeel Reyna DO - 03/31/2023 3:27 PM EST [...] 2:00 PM EST Office Visit Family Practice [address] [place] [address] [address] [place] [phone] Jameel Reyna, [address] [place] [address] 04/06/2023 9:00 AM EST Office Visit Family Practice [address] [place] [address] [address] [place] [phone] Jameel Reyna, [address] [place] [address] 04/06/2023 1:00 PM EST Laboratory Lab [address] [place] [address] [facility] [address] [place] [address] 04/07/2023 3:30 PM EST Office Visit Hematology/Oncology [facility] 200 [place] [address] Lexis Andino CRNP [address] [place] [address] [place] MILLER [id number] 05/05/2023 9:30 AM EST Pharmacy Pharmacy Hematology Oncology [facility] [address] [place] [address] [facility], [facility] Hem/Onc [address] [facility] [place] [address] Scheduled Procedures Name Priority Associated Diagnoses Date/Ti [...] this encounter Medical Devices Implanted Type Area Spice Fumigator Device Identifier Shelf Expiration Date Model / Serial / Lot Port Pwr Mri Isp Profile - [id number] Implanted:Qty: 1 on 01/22/2019 by Bebeto Canseco DO at OR [facility] Right: Chest CR BARD : PERIPHERAL VASCULAR 02/10/2020 [id number] / / [id number] documented as of this encounter Advance Directives [...] the patient have Health Care Power of Pantograph Transferrer? No Full Code 10/12/2016 3:15 PM 10/14/2016 6:57 PM Question Answer Comments Discussion of Advance Directives occurred with: Not Discussed Does the patient have a Living Will? No Does the patient have Health Care Power of Pantograph Transferrer? No Full Code 08/28/2016 7:34 AM 09/02/2016 8:09 PM Question Answer Comments Discussion of Advance Directives occurred with: Not Discussed Does the patient have a Living Will? No Does the patient have Health Care Power of Pantograph Transferrer? No Full Code 06/14/2013 8:04 PM 06/16/2013 7:32 PM This or annmarie reflects the patients wishes and were consensually agreed upon. Question Answer Comments Discussion of Advance Directives occurred with: Patient Does the patient have a Living Will? No Does the patient have Health Care Power of Pantograph Transferrer? No Care Teams Stamping Operator Relationship Specialty Start Date End Date Jameel Reyna DO [address] [place] [address] PCP - General Internal Medicine 03/15/22 documented as of this encounter
--- OUTSIDE RECORDS SUMMARY | 2023-06-02 16:21 | External Medical Summary | Summary of Care ---
Author Name Unknown Organization [facility] Address [address] [facility] [place] [address] Phone [phone] Care Team Providers Care Director Of Diversity And Inclusion Name Role Phone Jameel Reyna DO Primary Care Provider Encounter Details Date Type Department Care Team (Late st Contact Info) Description 03/24/2023 Result Scan Unspecified Department <No scans attached> Allergies Active Allergy Reactions Criticality Noted Date Comments Levofloxacin High 06/14/2021 Other reaction(s): C-DIFF documented as of this encounter (statuses as of 03/27/2023) Medications Medication Sig Dispensed Refills Start Date [...] in the evening. 200 Tablet 10/06/2022 Active Additional Information Patient taking differently: [...] 50 MCG/ACT Nasal Suspension (Flonase) Administer 1 [place] into nostril daily as needed for Rhinitis. 0 Active Imatinib Mesylate 100 MG Oral Tablet (Gleevec) Take 2 Tablets by mouth daily at noon. 0 Active documented as of this encounter (statuses as of 03/27/2023) Active Problems Problem Noted Date Diagnosed Date [...] as of this encounter (statuses as of 03/27/2023) Resolved Problems Problem Noted Date Diagnosed Date [...] as of this encounter (statuses as of 03/27/2023) Immunizations Name Administration Dates Next Due COVID-19 mRNA, LNP-s, No Pre serve, 2-Dose Series (StepOut) 01/09/2021,06/03/2020,05/13/2020 COVID-19, MRNA-LNP, 23-24, P F, 30 MCG/0.3 mL, 12 YRS AND ABOVE, IM ([employer]-Comirnaty) 12/26/2022 HepA Inact/HepB Recomb>=18yrs old 07/15/2011 PPD [...] 3:00 PM EST Pharmacy Family Practice [address] [place] 293 [place] [phone] College, Pharmacist [address] [place] [address] 03/28/2023 3:40 PM EST Office Visit Family Practice [address] [place] [phone] Jameel Reyna, DO [address] [place] [address], [place] [address] 04/04/2023 2:00 PM EST Office Visit Family [facility] [address] [place] [phone] Jameel Reyna, DO [address] [place] [address], [place] [address] 04/06/2023 1:00 PM EST Laboratory Lab [address] [address] [place], Lab [address] [place] [address] 04/07/2023 3:30 PM EST Office Visit Hematology/Oncology [facility] 200 [place] [address] Lexis Andino CRNP [address] [place] [address] 05/05/2023 9:30 AM EST Pharmacy Pharmacy Hematology Oncology [facility] [address] [place] [address] [facility], [facility] Hem/Onc [address] [place] [address] Scheduled Procedures Name Priority Associated Diagnoses Date/Ti [...] this encounter Medical Devices Implanted Type Area Ventilator Specialist Device Identifier Shelf Expiration Date Model / Serial / Lot Port Pwr Mri Isp Profile - [id number] Implanted:Qty: 1 on 01/22/2019 by Bebeto Canseco DO at OR [facility] Right: Chest CR BARD : PERIPHERAL VASCULAR 02/10/2020 [id number] / / [id number] documented as of this encounter Procedures Procedure Name Priority Date/Time Associated Diagnosis Comments RADIOLOGY SCANNED RESULT 03/24/2023 documented in this encounter Results * RADIOLOGY SCANNED RESULT (03/24/2023) 03/24/2023 No Physician Data Unknown DIAGNOSTIC RAD IOLOGY SERVICES documented in this encounter Advance Directives Latest [...] the patient have Health Care Power of Wind Turbine Design Engineer? No Full Code 10/12/2016 3:15 PM 10/14/2016 6:57 PM Question Answer Comments Discussion of Advance Directives occurred with: Not Discussed Does the patient have a Living Will? No Does the patient have Health Care Power of Wind Turbine Design Engineer? No Full Code 08/28/2016 7:34 AM 09/02/2016 8:09 PM Question Answer Comments Discussion of Advance Directives occurred with: Not Discussed Does the patient have a Living Will? No Does the patient have Health Care Power of Wind Turbine Design Engineer? No Full Code 06/14/2013 8:04 PM 06/16/2013 7:32 PM This or annmarie reflects the patients wishes and were consensually agreed upon. Question Answer Comments Discussion of Advance Directives occurred with: Patient Does the patient have a Living Will? No Does the patient have Health Care Power of Wind Turbine Design Engineer? No Care Teams Director Of Diversity And Inclusion Relationship Specialty Start Date End Date Jameel Reyna DO [address] [facility] [address] PCP - General Internal Medicine 03/15/22 documented as of this encounter
--- OUTSIDE RECORDS SUMMARY | 2023-06-02 16:21 | External Medical Summary | Summary of Care ---
Author Name Unknown Organization [facility] Address [address] [place] [address] Phone [phone] Care Team Providers Care Melt Down Furnace Operator Name Role Phone Jameel Reyna DO Primary Care Provider [phone] Reason for Visit * Reason Onset Date Comments Advice 03/30/2023 cold Encounter Details Date Type Department Care Team (Late st Contact Info) Description 03/30/2023 Telephone Family Practice 65 [facility] 293 [place] [phone] Jameel Reyna DO [address] [place] [address] Advice (cold) Allergies Active Allergy [...] s:COPD, group B, by GOLD 2017 classification ([facility]) Inhale via nebulizer. Use as directed. 1 Each 1 09/29/2022 Active Albuterol Sulfate (2.5 MG/3ML) 0.083% Inhalation Nebulization Solution (Proventil)Indicati ons:COPD, group B, by GOLD 2017 classification ([facility]) Inhale 1 Vial via nebulizer every 4 hours as needed for Wheezing. 120 mL 5 09/29/2022 Active Proventil HFA 108 (90 Base) MCG/ACT Inhalation Aerosol SolutionIndications :COPD, group B, by GOLD 2017 classification ([facility]) Inhale 2 Puffs by mouth in the morning and 2 Puffs at noon and 2 Puffs in the evening and 2 Puffs before bedtime. 18 g 3 09/29/2022 Active hydrALAZINE HCl 25 MG Oral Tablet (Apresoline)Indicat ions:HTN, goal below 140/90,Hypertensive kidney disease with chronic kidney disease stage V ([facility]) Take 1 Tablet by mouth in [...] (PriLOSEC)Indicatio ns:Gastrointestinal stromal tumor (GIST) of stomach ([facility]) Take 1 Capsule by mouth in [...] MCG/ACT Nasal Suspension (Flonase) Administer 1 [place] into nostril daily as needed for Rhinitis. [...] mRNA, LNP-s, No Pre serve, 2-Dose Series ([employer]) 01/09/2021,06/03/2020,05/13/2020 COVID-19, MRNA-LNP, 23-24, P F, 30 MCG/0.3 mL, 12 YRS AND ABOVE, IM ([facility]) 12/26/2022 HepA Inact/HepB Recomb>=18yrs old 07/15/2011 PPD [...] Miscellaneous Notes * Telephone Encounter - Daisy Verde OSA [...] PM EST Office Visit Family Practice [address], [place] 293 [place] [address] Jameel Reyna, DO 293 [place] [address] 04/06/2023 9:00 AM EST Office Visit Family Practice 65 [facility] [address] [place] [address] Jameel Reyna, DO 293 [place] [address] 04/06/2023 1:00 PM EST Laboratory Lab 65 [facility] [address] [place] [address] [place], Lab [address] [place] [address], [place] [address] 04/07/2023 3:30 PM EST Office Visit Hematology/Oncology [facility] 200 [place] [address] Lexis Andino CRNP [address] [place] [address] 05/05/2023 9:30 AM EST Pharmacy Pharmacy Hematology Oncology [facility] [address] [place] [address] [facility], [facility] Hem/Onc [address] [place] [address] Scheduled Procedures Name Priority Associated Diagnoses Date/Ti [...] this encounter Medical Devices Implanted Type Area Mobile Sales Consultant Device Identifier Shelf Expiration Date Model / Serial / Lot Port Pwr Mri Isp Profile - [id number] Implanted:Qty: 1 on 01/22/2019 by Bebeto Canseco DO at OR [facility] Right: Chest CR BARD : PERIPHERAL VASCULAR 02/10/2020 [id number] / / [id number] documented as of this encounter Advance Directives [...] the patient have Health Care Power of Literacy Coach? No Full Code 10/12/2016 3:15 PM 10/14/2016 6:57 PM Question Answer Comments Discussion of Advance Directives occurred with: Not Discussed Does the patient have a Living Will? No Does the patient have Health Care Power of Literacy Coach? No Full Code 08/28/2016 7:34 AM 09/02/2016 8:09 PM Question Answer Comments Discussion of Advance Directives occurred with: Not Discussed Does the patient have a Living Will? No Does the patient have Health Care Power of Literacy Coach? No Full Code 06/14/2013 8:04 PM 06/16/2013 7:32 PM This or annmarie reflects the patients wishes and were consensually agreed upon. Question Answer Comments Discussion of Advance Directives occurred with: Patient Does the patient have a Living Will? No Does the patient have Health Care Power of Literacy Coach? No Care Teams Melt Down Furnace Operator Relationship Specialty Start Date End Date Jameel Reyna DO [address] [place] [address] PCP - General Internal Medicine 03/15/22 documented as of this encounter
--- OUTSIDE RECORDS SUMMARY | 2023-06-02 16:21 | External Medical Summary | Summary of Care ---
Author Name Unknown Organization [facility] Address [address] [place] [place] [facility] [place] [address] Phone [phone] Care Team Providers Care Paper Sorter Name Role Phone Jameel Reyna DO Primary Care Provider [phone] Reason for Visit * Reason Onset Date Comments Advice 03/30/202303/31 Encounter Details Date Type Department Care Team (Late st Contact Info) Description 03/30/2023 Telephone Family Practice 65 [facility] 293 [place] [address] Jameel Reyna DO [address] [place] [address] Advice (03/31) Allergies Active Allergy [...] s:COPD, group B, by GOLD 2017 classification ([facility]) Inhale via nebulizer. Use as directed. 1 Each 09/29/2022 Active Albuterol Sulfate (2.5 MG/3ML) 0.083% Inhalation Nebulization Solution (Proventil)Indicati ons:COPD, group B, by GOLD 2017 classification ([facility]) Inhale 1 Vial via nebulizer every 4 hours as needed for Wheezing. 120 mL 5 09/29/2022 Active Proventil HFA 108 (90 Base) MCG/ACT Inhalation Aerosol SolutionIndications :COPD, group B, by GOLD 2017 classification ([facility]) Inhale 2 Puffs by mouth in the morning and 2 Puffs at noon and 2 Puffs in the evening and 2 Puffs before bedtime. 18 g 3 09/29/2022 Active hydrALAZINE HCl 25 MG Oral Tablet (Apresoline)Indicat ions:HTN, goal below 140/90,Hypertensive kidney disease with chronic kidney disease stage V ([facility]) Take 1 Tablet by mouth [...] (PriLOSEC)Indicatio ns:Gastrointestinal stromal tumor (GIST) of stomach ([facility]) Take 1 Capsule by mouth [...] 50 MCG/ACT Nasal Suspension (Flonase) Administer 1 [place] into nostril daily as needed for [...] mRNA, LNP-s, No Pre serve, 2-Dose Series (ClearSlide) 01/09/2021,06/03/2020,05/13/2020 COVID-19, MRNA-LNP, 23-24, P F, 30 MCG/0.3 mL, 12 YRS AND ABOVE, IM (Press[employer]-Comirnat) 12/26/2022 HepA Inact/HepB Recomb>=18yrs old 07/15/2011 PPD [...] Description 04/04/2023 2:00 PM EST Office Visit [address] [place] [phone] Jameel Reyna, DO [address] [place] [address] 04/06/2023 9:00 AM EST Office Visit [facility] 65 [facility] 293 [place] [phone] Jaemel Reyna, [address] [place] [address] 04/06/2023 1:00 PM EST Laboratory Lab 65 [facility] 293 [place] [address] [place], Lab [address] [place] [address] 04/07/2023 3:30 PM EST Office Visit Hematology/Oncology [facility] 200 [place] [address] Lexis Andino CRNP [address] [place] [address] 05/05/2023 9:30 AM EST Pharmacy Pharmacy Hematology Oncology [facility] [address] [place] [address] [facility], [facility] Hem/Onc [address] [place] [address] Scheduled Procedures Name Priority Associated Diagnoses Date/Ti [...] this encounter Medical Devices Implanted Type Area Advertising Assistant Manager Device Identifier Shelf Expiration Date Model / Serial / Lot Port Pwr Mri Isp Profile - [id number] Implanted:Qty: 1 on 01/22/2019 by Bebeto Canseco DO at OR [facility] Right: Chest CR BARD : PERIPHERAL VASCULAR 02/10/2020 [id number] / / [id number] documented as of this encounter Advance Directives [...] the patient have Health Care Power of Tarp Repairer? No Full Code 10/12/2016 3:15 PM 10/14/2016 6:57 PM Question Answer Comments Discussion of Advance Directives occurred with: Not Discussed Does the patient have a Living Will? No Does the patient have Health Care Power of Tarp Repairer? No Full Code 08/28/2016 7:34 AM 09/02/2016 8:09 PM Question Answer Comments Discussion of Advance Directives occurred with: Not Discussed Does the patient have a Living Will? No Does the patient have Health Care Power of Tarp Repairer? No Full Code 06/14/2013 8:04 PM 06/16/2013 7:32 PM This or annmarie reflects the patients wishes and were consensually agreed upon. Question Answer Comments Discussion of Advance Directives occurred with: Patient Does the patient have a Living Will? No Does the patient have Health Care Power of Tarp Repairer? No Care Teams Paper Sorter Relationship Specialty Start Date End Date Jameel Reyna DO 293 [facility] [address] PCP - General Internal Medicine 03/15/22 documented as of this encounter
[2023-06-02] MEDS: GABAPENTIN 100 MG CAP PO SCH (16:37)
[2023-06-02] MEDS ORDERED: bisacodyL 10 MG SUPP PR PRN (19:52)
[2023-06-02] MEDS ORDERED: POLYETHYLENE (MIRALAX) 17 GM PACK PO PRN (19:52)
[2023-06-02] MEDS: amLODIPine BESYLATE 5 MG TAB PO SCH (21:24)
[2023-06-02] MEDS: hydrALAZINE HCL 25 MG TAB PO SCH (21:25)
[2023-06-02] MEDS: METOPROLOL TARTRATE 25 MG TAB PO SCH (21:25)
[2023-06-02] MEDS: CALCIUM CARBONATE 500 MG CHEWABLE TAB PO SCH (21:25)
[2023-06-02] MEDS: oxyCODONE/ACETAMINOPHEN 5mg/325mg TAB PO PRN (21:39)
[2023-06-03] MEDS: LEVOTHYROXINE SODIUM 100 MCG TABLET PO SCH (05:43)
[2023-06-03 06:31] LABS: Hematocrit (blood only) 23.8 % (37.0-47.0); Hemoglobin 7.5 g/dl (12.0-16.0); Mean Corpuscular Hemoglobin 31.3 pg (25.0-34.0); Mean Corpuscular Hgb Conc 31.5 g/dL (32.0-36.0); Mean Corpuscular Volume 99.2 fL (80.0-100.0); Mean Platelet Volume 9.1 fL (9.4-12.4); Platelet Count 115 K/uL (130-400); RDW Coefficient of Variation 13.8 % (11.5-14.5); RDW Standard Deviation 50.4 fL (36.4-46.3); White Blood Count 4.76 K/ul (4.8-10.8)
[2023-06-03 06:47] LABS: BUN Creatinine Ratio 4.7 (10-20); Calcium 7.5 mg/dl (8.6-10.3); Creatinine Clr Calc Pharmacy 13.2 ml/min; Est GFR (African American) 10.7 ml/min; Est GFR (Non-African American) 9.2 ml/min; Magnesium 1.9 mg/dl (1.7-2.4); Phosphorus 3.9 mg/dl (2.5-4.9)
[2023-06-03] MEDS: PANTOprazole 40 MG TAB PO SCH (07:35)
[2023-06-03] MEDS: ASPIRIN 81 MG CHEW PO SCH (07:36)
[2023-06-03] MEDS: MAGNESIUM OXIDE 400 MG TAB PO SCH (07:37)
[2023-06-03] MEDS: NEPHROCAPS PO SCH (07:39)
[2023-06-03] MEDS: CHOLECALCIFEROL 25 MCG (1000 UNITS) TAB PO SCH (09:26)
--- NOTE | 2023-06-03 10:42 | Emergency Department Note ---
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 The patient was noted on laboratory work drawn several days ago to have a low calcium level. Patient states she "feels fine" otherwise. She denies chest pain, shortness of breath, abdominal pain, vomiting or diarrhea. She states she does still make some urine. The patient has dialysis treatments in [place] and is uncertain what facility has her blood work. REVIEW OF SYSTEMS: A review of systems was performed with positives and pertinent negatives listed in the history of present illness. 10 systems were reviewed and are otherwise negative. ALLERGIES: see below MEDICATIONS: see below PMH: see below SOCIAL HISTORY: see below DDx: Abnormal calcium, abnormal phosphate, fluid overload, dehydration, infectious etiology, metabolic abnormality among others. PHYSICAL EXAM: Vital signs reviewed. General: Chronically ill-appearing, 67-year-old female, in no significant distress. HEENT: No scleral icterus, PERRLA, neck supple. Moist mucous membranes Cardiovascular: Regular rate and rhythm, no extra sounds. Pulmonary: Clear to auscultation bilaterally, normal work of breathing. Abdomen: Soft, nontender, nondistended, positive bowel sounds. Musculoskeletal: Atraumatic, moderate peripheral edema. Neurologic: Patient awake alert and oriented x 3, speech is clear Rectal: Normal external rectal mucosa, guaiac negative brown stool. Skin: Warm, dry, no rash EMERGENCY DEPARTMENT COURSE/MDM: This patient was evaluated and appeared to be in no significant distress. IV access was obtained and laboratory work was drawn. Patient was placed on the cardiac technician noted to be in normal sinus rhythm. Patient's laboratory work was significant for a calcium level of 6.4, Phos of 5.9 and hemoglobin of 7.5. The patient was consented for blood transfusion if blood counts continue to drop. She was given 1 g of IV calcium gluconate with intentions to order another through the hospitalist service. Patient's EKG reveals new T wave changes in the anterior leads, prolonged QT interval of 512. The case was discussed with the on-call hospitalist who has agreed to evaluate the patient for admission. Patient and were aware of the plan and agreed. MONITORING: An order for cardiac monitoring was placed and the patient is noted to be in a NSR at 72 beats per minute. RADIOLOGY: To my interpretation reveals cardiomegaly with pulmonary vascular congestion. Otherwise refer to radiology's over read. EKG: To my interpretation reveals normal sinus rhythm at 68 bpm low voltage QRS. Prolonged QTc at 512. T wave inversions in the anterior leads, likely previous anterior infarct. When compared to previous dated March 16, 2023, anterior T wave changes are new. DISPOSITION: Admission Past Med/Surg History Medical History Mediastinal mass ongoing work-up with [facility] thoracic medicine and heme/onc Hypocalcemia Secondary hyperparathyroidism Neck pain h/o UE paresthesias; pt states neck pain and upper extremity abnormal symptoms>fully resolved Thyroid nodule s/p thyroidectomy COVID-19 hx-01/29/22-not hospitalized-symptoms fully resolved Pulmonary hypertension COPD (chronic obstructive pulmonary disease) stable per pt, no longer using supplemental oxygen-states home pulse ox readings are consistently 97% or greater-pt states provider is aware Abnormal stress test 01/2021 (reversible anterior and basal lateral defect consistent with ischemia vs soft tissue attenuation artifact) per [facility] cardio records, plan for medical management and consideration for DSE at 03/2021 appt; final determination per [facility] cardio is recommendation for diagnostic cardiac catheterization not yet scheduled by patient; now advised risk > benefit per [facility] cardio Limb alert care status left arm Port-A-Cath in place has not used in a long time 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 At least 1 of the peritoneal dialysis catheters had to be removed because of peritonitis..." Failed kidney transplant 2016 Palpitations AV fistula left upper arm (functioning), also one to left wrist, but does not function properly Chronic back pain GERD (gastroesophageal reflux disease) controlled, stable per pt Migraine Sleep apnea severe per [facility] records, no device currently > has apt soon to see about getting back on device Hypothyroidism s/p thyroidectomy at [facility] 06/28/22 Anemia in chronic kidney disease HLD (hyperlipidemia) HTN (hypertension) controlled, stable per pt ESRD (end stage renal disease) on dialysis MWF at [facility] in [place] Surgical History Hx of total thyroidectomy 06/28/22, [facility]>3 1/2 of parathyroid removed, also removed nodules that were "non cancerous" History of surgery hx perm cath insertion & removal History of appendectomy H/O cystoscopy History of laparoscopy History of bilateral tubal ligation History of kidney transplant 08/28/2016 @ [facility] (right side) functions at only 10%--d/t ESRD > follows with dr at [facility] History of cholecystectomy History of section x1 History of colonoscopy History of esophagogastroduodenoscopy (EGD) History of tooth extraction History of wisdom tooth extraction History of tonsillectomy and adenoidectomy Family History Grandmother (Paternal) Family history of diabetes mellitus Grandmother (Maternal) Family history of diabetes mellitus Family hx of colon cancer Mother Family hx of colon cancer Other No family history of adverse response to anesthesia Social History Smoking Status: Former smoker Tobacco Type: Cigarettes Second Hand Exposure: No; Do You Dip or Chew Tobacco: No; Tobacco Cessation Education Requested by Patient: No Hx Alcohol Use: No Hx Substance Use: No Preferred Language: Japanese Communication Ability: Effective Cigar Packer And Sorter Required: No Beliefs That Will Affect Care: None marital status: Current Living Situation: Spouse Current Living Situation Comment: lives at home w spouse How many Children do You have: 1 Other Information That Helps Us Care for You: No Feels Safe at Home: Yes Safety Concerns: Feels Safe At This Time Assistive Devices: CPAP and Glasses Allergies Allergies Allergy/AdvReac Type Severity Reaction Status Date / Time levofloxacin AdvReac Severe C-DIFF Verified 06/02/23 10:43 Home Meds Home Medications Medication Instructions Recorded Confirmed aspirin 81 mg chewable tablet 81 mg PO QAM 04/23/18 06/02/23 gabapentin 100 mg capsule 100 mg PO TID 04/23/18 06/02/23 magnesium oxide 400 mg PO QAM 03/08/22 06/02/23 amlodipine 5 mg tablet 5 mg PO BID 07/21/22 06/02/23 metoprolol tartrate 25 mg tablet 37.5 mg PO BID 05/11/23 03/22/24 ondansetron HCl 8 mg tablet 8 mg PO TID PRN PRIOR TO 07/21/22 06/02/23 CHEMOTHERAPY MEDS prochlorperazine maleate 10 mg 10 mg PO Q6H PRN NAUSEA/VOMITING 07/21/22 06/02/23 tablet (Compazine) triamcinolone acetonide 0.1 % 1 applic topical BID PRN Rash 07/21/22 06/02/23 topical cream vitamin B complex and vitamin C 1 cap PO DAILY 07/21/22 06/02/23 no.20-folic acid 1 mg capsule (Dingle Caps) imatinib 100 mg tablet (Gleevec) 200 mg PO QPM 09/22/22 06/02/23 calcium acetate(phosphat bind) 667 1,334 mg PO TID 10/20/22 06/02/23 mg capsule hydralazine 25 mg tablet 25 mg PO BID 06/02/23 06/02/23 omeprazole 40 mg capsule,delayed 40 mg PO DAILY 06/02/23 06/02/23 release oxycodone-acetaminophen 5 mg-325 1 tab PO Q8H PRN Pain 06/02/23 06/02/23 mg tablet Previous Rx's Medication Instructions Recorded carboxymethylcellulose sodium 1 drp ophthalmic (eye) 6XD PRN dry 03/09/23 (Refresh Contacts eye drops) eye(s) #12 mL calcitriol 0.5 mcg capsule 0.5 mcg PO QAM #30 caps 06/03/23 calcium carbonate 500 mg calcium 1,000 mg (2 x 500 mg calcium 06/03/23 (1,250 mg) chewable tablet (1,250 mg)) PO HS #30 tabs levothyroxine 125 mcg tablet 125 mcg PO DAILYBB #30 tabs 06/03/23 (Synthroid) Results & Data (ED) Home Medications Current Medication List: was personally reviewed by me Laboratory Data Attestation: I reviewed the patient's lab results. 06/03/23 05:43 06/03/23 05:43 Lab Results 06/02/23 Range/Units 08:09 WBC 5.12 (4.8-10.8) K/ul RBC 2.42 L (4.20-5.40) M/uL Hgb 7.5 L (12.0-16.0) g/dl Hct 23.7 L (37.0-47.0) % MCV 97.9 (80.0-100.0) fL MCH 31.0 (25.0-34.0) pg MCHC 31.6 L (32.0-36.0) g/dL RDW Std Deviation 51.1 H (36.4-46.3) fL RDW Coeff of [place] 14.2 (11.5-14.5) % Plt Count 127 L (130-400) K/uL MPV 9.0 L (9.4-12.4) fL Immature Gran % (Auto) 0.2 % Neut % (Auto) 56.3 % Lymph % (Auto) 19.3 % Cottle % (Auto) 14.6 % Eos % (Auto) 8.6 % Baso % (Auto) 1.0 % Neut # (Auto) 2.88 (1.40-6.50) K/uL Lymph # (Auto) 0.99 L (1.20-3.40) K/uL Cottle # (Auto) 0.75 H (0.11-0.59) K/uL Eos # (Auto) 0.44 (0.00-0.50) K/uL Baso # (Auto) 0.05 (0.00-0.20) K/uL Immature Gran # (Auto) 0.01 (0.01-0.20) K/uL RBC Morphology Unremarkable Sodium 139 (136-145) mmol/L Potassium 3.7 (3.5-5.1) mmol/L Chloride 96 L (98-107) mmol/L Carbon Dioxide 32 (21-32) mmol/L Anion Gap 11 (3-11) BUN 38 H (6-23) mg/dl Creatinine 6.80 H* (0.6-1.2) mg/dl Est Cr Clr Drug Dosing 9.3 ml/min Est GFR ( Amer) 6.7 ml/min Est GFR (Non-Af Amer) 5.8 ml/min BUN/Creatinine Ratio 5.6 L (10-20) Glucose 122 H (70-99(Fasting)) mg/dl Calcium 6.4 L (8.6-10.3) mg/dl Phosphorus 5.9 H (2.5-4.9) mg/dl Magnesium 1.9 (1.7-2.4) mg/dl Total Bilirubin 0.5 (0.2-1.0) mg/dl AST 15 (13-39) U/L ALT 9 (7-52) U/L Alkaline Phosphatase 37 (34-104) U/L Troponin I High Sens 6.6 (0-14) pg/ml Total Protein 5.8 L (6.0-8.3) gm/dl Albumin 3.7 (3.4-5.0) gm/dl Globulin 2.1 L (2.5-4.0) gm/dl Albumin/Globulin Ratio 1.8 (0.9-2) TSH 59.278 H (0.300-4.500) uIu/ml Free T4 0.75 (0.61-1.60) ng/dl Administered Medications Discontinued Medications Amlodipine Besylate (Amlodipine Besylate 5 Mg Tab) 5 mg PO BID VU Stop: 07/02/23 20:59 Last Admin: 06/03/23 07:36 Dose: 5 mg Documented By: Admin: 06/02/23 21:24 Dose: 5 mg Documented By: AM Aspirin (Aspirin 81 Mg Chew) [facility] Stop: 07/03/23 08:59 Last Admin: 06/03/23 07:36 Dose: 81 mg Documented By: REKHA Calcium Acetate (Calcium Acetate 667 Mg Cap/Tab) 1,334 mg PO TIDM ON LICENSE OF [facility] Stop: 07/02/23 11:59 Last Admin: 06/03/23 12:53 Dose: 1,334 mg Documented By: Admin: 06/03/23 07:34 Dose: 1,334 mg Documented By: Admin: 06/02/23 16:38 Dose: 1,334 mg Documented By: Admin: 06/02/23 12:56 Dose: Not Given Documented By: MEAGHAN Calcium Carbonate (Calcium Carbonate 500 Mg Chewable Tab) 1,500 mg PO HS ON LICENSE OF [facility] Stop: 07/02/23 20:59 Last Admin: 06/02/23 21:25 Dose: 1,500 mg Documented By: AM Epoetin Adrián (Epoetin Adrián 20,000 Units/Ml Vial) 20,000 units IV ONE ONE Stop: 06/02/23 10:49 Last Admin: 06/02/23 15:54 Dose: 20,000 units Documented By: JYOTSNA Gabapentin (Gabapentin 100 Mg Cap) 100 mg PO TID VU Stop: 07/02/23 13:59 Last Admin: 06/03/23 13:27 Dose: 100 mg Documented By: Admin: 06/03/23 07:37 Dose: 100 mg Documented By: Admin: 06/02/23 21:25 Dose: 100 mg Documented By: Admin: 06/02/23 16:37 Dose: Not Given Documented By: MEAGHAN Hydralazine HCl (Hydralazine Hcl 25 Mg Tab) 25 mg PO BID VU Stop: 07/02/23 20:59 Last Admin: 06/03/23 07:37 Dose: 25 mg Documented By: Admin: 06/02/23 21:25 Dose: 25 mg Documented By: CAIO Calcium Gluconate () 1,000 mg in 60 mls @ 240 mls/hr IV NOW STA Stop: 06/02/23 09:58 Last Infusion: 06/02/23 12:57 Dose: Infused Documented By: Admin: 06/02/23 10:11 Dose: 240 mls/hr Documented By: NANCY Levothyroxine Sodium (Levothyroxine Sodium 100 Mcg Tablet) 100 mcg PO DAILYBB VU Stop: 07/03/23 06:29 Last Admin: 06/03/23 05:43 Dose: 100 mcg Documented By: CAIO Magnesium Oxide (Magnesium Oxide 400 Mg Tab) 400 mg PO QAM VU Stop: 07/03/23 08:59 Last Admin: 06/03/23 07:37 Dose: 400 mg Documented By: REKHA Metoprolol Tartrate (Metoprolol Tartrate 25 Mg Tab) 37.5 mg PO BID VU Stop: 07/02/23 20:59 Last Admin: 06/03/23 07:38 Dose: 37.5 mg Documented By: Admin: 06/02/23 21:25 Dose: 37.5 mg Documented By: CAIO Miscellaneous (Imatinib [Gleevec] ~ Order Awaiting Action) 1 each N/A QS ON LICENSE OF [facility] Stop: 07/02/23 15:59 Last Admin: 06/03/23 07:36 Dose: Not Given Documented By: Admin: 06/02/23 23:50 Dose: Not Given Documented By: Admin: 06/02/23 16:18 Dose: Not Given Documented By: MEAGHAN Oxycodone/Acetaminophen (Oxycodone/Acetaminophen 5mg/325mg Tab) 1 tab PO Q8H PRN PRN Reason: Pain Stop: 06/16/23 13:17 Last Admin: 06/02/23 21:39 Dose: 1 tab Documented By: AM Pantoprazole Sodium (Pantoprazole 40 Mg Tab) 40 mg PO DAILY VU; Protocol Stop: 07/03/23 08:59 Last Admin: 06/03/23 07:35 Dose: 40 mg Documented By: MP Vitamin B Complex/Folic Acid (Nephrocaps) 1 cap PO DAILY VU Stop: 07/03/23 08:59 Last Admin: 06/03/23 07:39 Dose: 1 cap Documented By: MP Vitamin D (Cholecalciferol 25 Mcg (1000 Units) Tab) 25 mcg PO QAM VU Stop: 07/03/23 08:59 Last Admin: 06/03/23 09:26 Dose: 25 mcg Documented By: MP Imaging Data Radiologist's Impression: Chest X-Ray 06/02/23 08:02 XR chest 1V portable HISTORY: weakness COMPARISON: Chest 03/09/2023. FINDINGS: No pneumothorax. No pleural effusions. The heart is mildly enlarged. There are low lung volumes. This progressive interstitial/vascular thickening consistent with mild pulmonary edema. No new focal lung consolidations. A right jugular Port-A-Cath terminates in the SVC. No acute fractures. IMPRESSION: Interval progression of the cardiomegaly and mild interstitial pulmonary edema. ACT 112: Negative or not required by law. Electronically signed by: Jesus Alberto Hernández M.D. 06/02/2023 8:52 AM Discharge Plan Visit Data Chief Complaint: Referred by Doctor Stated Complaint: low calcium, ref by doc ED Provider: Tiff Forrest Discharge Problem: Hypocalcemia, ESRD on hemodialysis, Anemia Patient Disposition: Admitted As Inpatient Discharge Instructions Interventions: ED Discharge Assessment Last Done: 06/02/23 12:03 Discharge Problem: Anemia Qualifiers: Anemia type: unspecified type Qualified Code(s): D64.9 - Anemia, unspecified
--- NOTE | 2023-06-03 12:28 | Hospitalist Progress Note ---
Date of Service June 03, 2023 Assessment & Plan (1) Hypocalcemia: Plan: Patient is a 67 yr female with ESRD on HD, s/p renal transplant failure, COPD, chronic hypoxic resp failure, sleep apnea, gastric GIST tumor, HTN, pulmonary HTN, GERD, dyslipidemia, thyroid cancer s/p thyroidectomy/parathyroidectomy, and other history as outlined below who was referred to the ED today due to low calcium on labwork from four days ago. Noted to have mild pulmonary vascular congestion on imaging but denies new respiratory symptoms. Pt did miss an episode of HD last week due to diarrhea. Hypocalcemia Likely multifactorial H/O postsurgical hypoparathyroidism Vitamin D deficiency contributing as well In setting of end-stage renal disease Vitamin D level is 27.3 PTH level 8.0 Continue calcium supplements Started on vitamin D supplements Appreciate nephrology input Advised to follow-up with endocrinology as outpatient Calcium levels improving (2) ESRD (end stage renal disease) on dialysis: Plan: Continue dialysis per nephrology Continue Phoslo Needs follow-up with nephrology on discharge (3) Anemia in chronic kidney disease: Plan: Anemia of chronic disease No bleeding issues Received Epo Monitor CBC (4) Diarrhea: Plan: New diarrhea over the last 2-3 weeks, which is why she missed HD last Monday. Has been using prn Imodium. Check stool culture, C. 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 (9) Gastrointestinal stromal tumor (GIST): Plan: Chronic, follows with oncology Continue Gleevac Plan DVT Px: SCDs Re: Anemia, thrombocytopenia Code Status: Full code Disposition Home Admission and Anticipated Discharge Date Admission Date: June 02, 2023 Subjective Patient is seen and examined at bedside Leg cramps and diarrhea resolved Denies any chest pain, dyspnea, dizziness, nausea, vomiting, abdominal pain States feeling better today Discussed with nephrology today Eager to get discharged Review of Systems Review of Systems: All systems reviewed & are unremarkable except as noted in Subjective Physical Exam Physical Exam: Physical Exam: Vitals signs as noted above General Appearance:Obese, no apparent distress Head: normocephalic, Atraumatic, +Chronic bells's Palsy Eyes: normal inspection, EOMI Neck: supple, Trachea midline Respiratory/Chest: Normal breath sounds, CTA, No accessory muscle use Cardiovascular: S1, S2, No murmur Abdomen/GI:Soft, Non tender, Bowel sounds present Extremities/Musculoskeletal:normal inspection, 1+ edema Neurologic/Psych:AAOX3, grossly no focal neurological deficits Skin: normal color, warm Results & Data Results & Data Vital Signs (Past 12 Hours) Vital Signs Temp Pulse Pulse Resp BP Pulse Ox O2 Del Method 06/03/23 10:57 37.1 C 67 18 127/73 95 Room Air 06/03/23 07:05 36.3 C L 73 148/81 H 98 Nasal CPAP 06/03/23 03:38 13 06/03/23 02:35 36.8 C 67 18 132/71 98 Nasal CPAP O2 Flow Rate 06/03/23 10:57 06/03/23 07:05 06/03/23 03:38 2 06/03/23 02:35 Laboratory Results Short CBC 06/03/23 Range/Units 05:43 WBC 4.76 L (4.8-10.8) K/ul Hgb 7.5 L (12.0-16.0) g/dl Hct 23.8 L (37.0-47.0) % Plt Count 115 L (130-400) K/uL BMP 06/03/23 05:43 Sodium 141 Potassium 4.0 Chloride 101 Carbon Dioxide 33 H BUN 22 Creatinine 4.66 H* D Glucose 88 Calcium 7.5 L (3) Anemia in chronic kidney disease Chronic kidney disease stage: on chronic dialysis Qualified Code(s): N18.6 - End stage renal disease; D63.1 - Anemia in chronic kidney disease; Z99.2 - Dependence on renal dialysis (4) Diarrhea Diarrhea type: unspecified type Qualified Code(s): R19.7 - Diarrhea, unspecified
--- NOTE | 2023-06-03 13:31 | Discharge Summary ---
Date of Service June 03, 2023 Admission HPI Per Admitting Provider This is a 67 y/o female with ESRD on HD, s/p renal transplant failure, COPD, chronic hypoxic resp failure, sleep apnea, gastric GIST tumor, HTN, pulmonary HTN, GERD, dyslipidemia, thyroid cancer s/p thyroidectomy/parathyroidectomy, and other history as outlined below who was referred to the ED today due to low calcium on labwork from four days ago. Pt is on HD 3 days per week - // - and is due for HD today. She did miss HD last Monday due to diarrhea. She does not recall having an issue with hypocalcemia previously. She has some leg cramping but notes this is not a new issue. She notes intermittent diarrhea for the last 2-3 weeks - no clear trigger. She has been taking Imodium for this, which helps temporarily but then the diarrhea recurs. She has associated urgency and incontinence at times but no hematochezia. She does not recall any recent antibiotics but does have a hx of C. diff. She was also noted to have worsened anemia since her last admission. Pt denies overt blood loss, specifically no epistaxis, gingival bleeding, hematuria. Denies recent illness - no fevers, chills, URI symptoms. Admission Exam Per Admitting Provider General: awake, alert, NAD HEENT: no scleral icterus, moist oral mucosa, +left facial droop (chronic) Neck: supple, trachea midline Heart: RRR Lungs: faint left basilar crackles, otherwise clear Abdomen: soft, obese, NT, +BS Extremities: radial pulses intact, +fistula in LUE w/ palpable thrill Skin: a few scabbed areas on left upper chest but no significant erythema or warmth Neurologic: moving all extremities, no dysarthria, oriented x 3 Principal Diagnosis Hypocalcemia End-stage renal disease Vitamin D deficiency Postsurgical hypoparathyroidism Postsurgical hypothyroidism Discharge Data Allergies Allergy/AdvReac Type Severity Reaction Status Date / Time levofloxacin AdvReac Severe C-DIFF Verified 06/02/23 10:43 Consultations 06/02/23 11:27 ED Decision to Admit Stat 06/02/23 12:45 Consult Nephrology Routine Procedures Performed Laboratory Results WBC 4.76 K/ul (4.8-10.8) L 06/03/23 05:43 RBC 2.40 M/uL (4.20-5.40) L 06/03/23 05:43 Hgb 7.5 g/dl (12.0-16.0) L 06/03/23 05:43 Hct 23.8 % (37.0-47.0) L 06/03/23 05:43 MCV 99.2 fL (80.0-100.0) 06/03/23 05:43 MCH 31.3 pg (25.0-34.0) 06/03/23 05:43 MCHC 31.5 g/dL (32.0-36.0) L 06/03/23 05:43 RDW Std Deviation 50.4 fL (36.4-46.3) H 06/03/23 05:43 RDW Coeff of [place] 13.8 % (11.5-14.5) 06/03/23 05:43 Plt Count 115 K/uL (130-400) L 06/03/23 05:43 MPV 9.1 fL (9.4-12.4) L 06/03/23 05:43 Immature Gran % (Auto) 0.2 % 06/02/23 08:09 Neut % (Auto) 56.3 % 06/02/23 08:09 Lymph % (Auto) 19.3 % 06/02/23 08:09 [place] % (Auto) 14.6 % 06/02/23 08:09 Eos % (Auto) 8.6 % 06/02/23 08:09 Baso % (Auto) 1.0 % 06/02/23 08:09 Neut # (Auto) 2.88 K/uL (1.40-6.50) 06/02/23 08:09 Lymph # (Auto) 0.99 K/uL (1.20-3.40) L 06/02/23 08:09 [place] # (Auto) 0.75 K/uL (0.11-0.59) H 06/02/23 08:09 Eos # (Auto) 0.44 K/uL (0.00-0.50) 06/02/23 08:09 Baso # (Auto) 0.05 K/uL (0.00-0.20) 06/02/23 08:09 Immature Gran # (Auto) 0.01 K/uL (0.01-0.20) 06/02/23 08:09 RBC Morphology Unremarkable 06/02/23 08:09 Sodium 141 mmol/L (136-145) 06/03/23 05:43 Potassium 4.0 mmol/L (3.5-5.1) 06/03/23 05:43 Chloride 101 mmol/L (98-107) 06/03/23 05:43 Carbon Dioxide 33 mmol/L (21-32) H 06/03/23 05:43 Anion Gap 7 (3-11) 06/03/23 05:43 BUN 22 mg/dl (6-23) 06/03/23 05:43 Creatinine 4.66 mg/dl (0.6-1.2) H* D 06/03/23 05:43 Est Cr Clr Drug Dosing 13.2 ml/min 06/03/23 05:43 Est GFR ( Amer) 10.7 ml/min 06/03/23 05:43 Est GFR (Non-Af Amer) 9.2 ml/min 06/03/23 05:43 BUN/Creatinine Ratio 4.7 (10-20) L 06/03/23 05:43 Glucose 88 mg/dl (70-99(Fasting)) 06/03/23 05:43 Calcium 7.5 mg/dl (8.6-10.3) L 06/03/23 05:43 Phosphorus 3.9 mg/dl (2.5-4.9) D 06/03/23 05:43 Magnesium 1.9 mg/dl (1.7-2.4) 06/03/23 05:43 Total Bilirubin 0.5 mg/dl (0.2-1.0) 06/02/23 08:09 AST 15 U/L (13-39) 06/02/23 08:09 ALT 9 U/L (7-52) 06/02/23 08:09 Alkaline Phosphatase 37 U/L (34-104) 06/02/23 08:09 Troponin I High Sens 6.6 pg/ml (0-14) 06/02/23 08:09 Total Protein 5.8 gm/dl (6.0-8.3) L 06/02/23 08:09 Albumin 3.7 gm/dl (3.4-5.0) 06/02/23 08:09 Globulin 2.1 gm/dl (2.5-4.0) L 06/02/23 08:09 Albumin/Globulin Ratio 1.8 (0.9-2) 06/02/23 08:09 25-OH Vitamin D Total 27.3 ng/ml (30-100) L 06/03/23 05:43 TSH 59.278 uIu/ml (0.300-4.500) H 06/02/23 08:09 Free T4 0.75 ng/dl (0.61-1.60) 06/02/23 08:09 PTH Intact 8.0 pg/ml (12.0-88.0) L 06/03/23 05:43 Nasal Screen MRSA (PCR) Negative (Negative) 06/02/23 18:15 Impressions Chest X-Ray 06/02/23 08:02 XR chest 1V portable HISTORY: weakness COMPARISON: Chest 03/09/2023. FINDINGS: No pneumothorax. No pleural effusions. The heart is mildly enlarged. There are low lung volumes. This progressive interstitial/vascular thickening consistent with mild pulmonary edema. No new focal lung consolidations. A right jugular Port-A-Cath terminates in the SVC. No acute fractures. IMPRESSION: Interval progression of the cardiomegaly and mild interstitial pulmonary edema. ACT 112: Negative or not required by law. Electronically signed by: Jesus Alberto Hernández M.D. 06/02/2023 8:52 AM Hospital Course (1) Hypocalcemia: Patient is a 67 yr female with ESRD on HD, s/p renal transplant failure, COPD, chronic hypoxic resp failure, sleep apnea, gastric GIST tumor, HTN, pulmonary HTN, GERD, dyslipidemia, thyroid cancer s/p thyroidectomy/parathyroidectomy, and other history as outlined below who was referred to the ED today due to low calcium on labwork from four days ago. Noted to have mild pulmonary vascular congestion on imaging but denies new respiratory symptoms. Pt did miss an episode of HD last week due to diarrhea. Hypocalcemia Likely multifactorial H/O postsurgical hypoparathyroidism Vitamin D deficiency contributing as well In setting of end-stage renal disease Vitamin D level is 27.3 PTH level 8.0 Continue calcium supplements Started on vitamin D supplements Appreciate nephrology input Advised to follow-up with endocrinology as outpatient Calcium levels improving (2) ESRD (end stage renal disease) on dialysis: Continue dialysis per nephrology Denise Kessler Needs follow-up with nephrology on discharge (3) Anemia in chronic kidney disease: Anemia of chronic disease No bleeding issues Received Epo Monitor CBC (4) Diarrhea: New diarrhea over the last 2-3 weeks, which is why she missed HD last Monday. Has been using prn Imodium. Check stool culture, C. 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 (9) Gastrointestinal stromal tumor (GIST): Chronic, follows with oncology Continue Gleevac Plan DVT Px: SCDs Re: Anemia, thrombocytopenia Code Status: Full code Disposition Home Total Time Total Time Spent Total Time Spent (In Minutes): 58 minutes Discharge Plan Discharge Items Patient Disposition: Home - Self-Care Reason For Visit: hypocalcemia, diarrhea Discharge Diagnosis: Hypocalcemia End-stage renal disease Vitamin D deficiency Postsurgical hypoparathyroidism Postsurgical hypothyroidism Activity: Per Instructions section Exercise/Sports: Gradually increase as tolerated Non-emergency contact: Primary Care Provider, Specialist and [employer] Call non-emergency contact if: you have any medication questions, your symptoms worsen, your pain is concerning for you and you have a fever Follow-up/Referrals: Jameel Reyna, [Primary Care Provider] - Diet: Dialysis Renal and Heart Healthy Add Attending Provider Instructions: Follow-up with your primary care physician Dr. Reyna in 1 week Follow-up with your evaporator operator molasses Dr. Roldan in 1 week Follow-up with hr receptionist as recommended. -- Get blood test (basic metabolic panel) in 1 week and follow-up with your primary care physician, evaporator operator molasses for further recommendations --Obtain thyroid function test and vitamin D levels in 4 to 6 weeks for further adjustment of your medications as needed. -- Continue dialysis as per recommended by your evaporator operator molasses Seek immediate medical attention if your symptoms reoccur or worsen Please take all medications as instructed on discharge list below. Please call if you have any questions or problems. You can reach a [facility] hospitalist on duty at [facility] 24 hours a day by calling [phone] Pending Studies at Discharge: No Stand-Alone Forms: My [facility], Smoking Cessation Medications and DC Order Prescriptions: New calcium carbonate 500 mg calcium (1,250 mg) tablet,chewable 1,000 mg PO HS Qty: 30 0RF levothyroxine [Synthroid] 125 mcg Tablet 125 mcg PO DAILYBB Qty: 30 0RF calcitriol 0.5 mcg capsule 0.5 mcg PO QAM Qty: 30 0RF Continued aspirin 81 mg Tablet,Chewable 81 mg PO QAM Rx Instructions: TAKE WITH FOOD gabapentin 100 mg Capsule 100 mg PO TID magnesium oxide 400 mg magnesium Tablet 400 mg PO QAM ondansetron HCl 8 mg Tablet 8 mg PO TID PRN (Reason: PRIOR TO CHEMOTHERAPY MEDS) amlodipine 5 mg Tablet 5 mg PO BID prochlorperazine maleate [Compazine] 10 mg Tablet 10 mg PO Q6H PRN (Reason: NAUSEA/VOMITING) triamcinolone acetonide 0.1 % Cream 1 applic TOPICAL BID PRN (Reason: Rash) [place] Caps 1 mg Capsule 1 cap PO DAILY Rx Instructions: TAKE AFTER DIALYSIS TREATMENT. Dialysis days are Mon/Wed/Fri metoprolol tartrate 25 mg Tablet 37.5 mg PO BID Rx Instructions: TAKE 1 1/2 TABS BID imatinib [Gleevec] 100 mg Tablet 200 mg PO QPM Rx Instructions: TAKE WITH A MEAL calcium acetate(phosphat bind) 667 mg capsule 1,334 mg PO TID Rx Instructions: w/meals and snack Refresh Contacts Drops 1 drp ophthalmic (eye) 6XD PRN (Reason: dry eye(s)) Qty: 12 0RF hydralazine 25 mg tablet 25 mg PO BID oxycodone-acetaminophen 5-325 mg tablet 1 tab PO Q8H PRN (Reason: Pain) omeprazole 40 mg capsule,delayed release(DR/EC) 40 mg PO DAILY Discontinued levothyroxine 100 mcg Tablet 100 mcg PO QAM Discharge Orders: Discharge Order (Routine); Ordered 06/03/23 Ordered By: Albert Hays Admission Data Admit Date/Time: 06/02/23 10:55 Attending Provider: Albert Hays Admit Provider: Carrie Pratt Primary Care Provider: Jameel Reyna Other Providers: Carrie Pratt; Paulo Roldan
[2023-06-04] MEDS ORDERED: LEVOTHYROXINE SODIUM 125 MCG TABLET PO SCH (06:30)
[2023-06-04] MEDS ORDERED: CALCITRIOL 0.25 MCG CAPSULE PO SCH (09:00)
== END 2023-06-03 14:45 | disposition home or self-care (01) | DRG 640 ==
LOC: ED 07:36 → 2S 10:55 → SUATTDRO 10:55 → 2S 12:03

== ENCOUNTER 2024-10-28 06:29 | Inpatient (IN) ==
--- NOTE | 2024-10-28 06:39 | Emergency Department Note ---
Impression & Plan Acute hyperkalemia Admission ED Provider Note HPI: History obtained from patient and EMS report. The patient is a 68-year-old female with history of end-stage renal disease, on dialysis, who presents the emergency department with fever and hypertension. Patient went to dialysis this morning where she was noted to be tachycardic and febrile. Patient states that she began to feel unwell just prior to going to dialysis today. Patient denies any cough, she denies any abdominal pain, she denies any chest pain. Patient was noted to be hypoxic at dialysis today at 81%. She reportedly uses 2 L nasal cannula oxygen at home as needed. Patient was placed on 6 L nasal cannula with good improvement in her oxygenation prior to arrival. On arrival here to the ED the patient is alert, she is not oriented to year or fully to self (she cannot tell me her age). Patient is not noted to have any focal motor deficits. ROS: - Per HPI Differential Diagnosis: Acute CHF exacerbation with hypoxia, sepsis, urinary tract infection, pneumonia, hyperkalemia in the setting of end-stage renal disease, viral upper respiratory infection, amongst other potential pathologies. *Outpatient medications and allergy history reviewed. PE: General: Alert to verbal stimuli HEENT: Normocephalic, trachea midline Eyes: Extraocular eye movement is intact, no scleral erythema Pulmonary: Clear to auscultation bilaterally, no wheezing Cardio: Regular rate and rhythm GI: Abdomen is soft to palpation : No suprapubic tenderness MSK: No evidence of trauma or malformation of the extremities, no edema, fistula to left upper extremity Skin: No evidence of rash Neuro: Alert, no focal deficits, oriented to place but not oriented to time Psychiatric: Cooperative INDEPENDENT INTERPRETATIONS: monitor car operator: (As interpreted by myself): - An order was placed for continuous cardiac monitoring - Patient was noted to be in sinus rhythm with a rate of 92 EKG: (As interpreted by myself): Rate: 92 Rhythm: Apparent sinus rhythm Intervals: Within normal limits ST changes: No ST elevation Time: 0639 Chest x-ray: (As interpreted by myself): CHF pattern Interventions provided in ED: - Calcium gluconate, IV insulin, IV dextrose, albuterol, IV sodium bicarbonate, IV cefepime, sublingual nitroglycerin Medical Decision Making: Patient arrived to the emergency room alert, she was stable on nasal cannula oxygen on arrival but noted to be hypertensive. Patient was given a sublingual nitroglycerin over concern for hypertension with CHF/fluid overload. This did result in improvement in the patient's reported dyspnea. IV was established and lab work obtained, patient was placed on library monitor. Lab work shows no leukocytosis, hemoglobin is slightly below baseline at 8.6, platelet count is 97, CMP shows a sodium of 135, potassium is noted to be markedly elevated at 6.8, creatinine 9.54, lactic acid mildly elevated at 2.1, troponin is noted to be markedly elevated at 1507, no acute ischemic changes are noted on EKG, patient denies any chest pain, low suspicion for ACS. BNP is elevated at 2067, I suspect the patient's dyspnea is secondary to fluid overload. I do not appreciate a focal infiltrate on chest x-ray but formal read from radiology is still pending. Viral panel testing was obtained and is negative. Patient states that she does not make urine. Patient was given IV cefepime for fever, unclear source at this time. Patient was not given IV fluids over concern for fluid overload as she was getting medications including nitroglycerin to lower her blood pressure. Hyperkalemia medications were administered here in the ED including calcium gluconate, IV insulin and IV dextrose, albuterol, IV sodium bicarbonate. Patient states that she is feeling improved on my reassessment. She is in agreement for admission. Her presentation was discussed with on-call nephrology, Dr. Roldan, who will arrange emergent dialysis today for the patient. Case was then discussed with the on-call hospitalist for [facility], Dr. Cook, the patient was placed for admission. Consultants/Discussions held with other healthcare providers: - Nephrology, Dr. Roldan - Hospitalist, Dr. Cook Disposition discussion held by myself with: - Patient and patient's at the bedside * CRITICAL CARE TIME: ( 55 ) minutes - Stabilization of patient with hyperkalemia greater than 6.5 requiring administration of IV medications, time spent at the bedside, urgent consultation with nephrology, discussion with other physicians/hospitalist and arrangement of admission. Diagnosis: 1. Hyperkalemia, acute 2. End-stage renal disease, on dialysis 3. CHF, acute 4. Hypertension, acute 5. 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 Encounter for pre-operative examination Hypertensive urgency (Acute) Abnormal finding on MRI of brain (Acute) Chronic migraine (Acute) CKD (chronic kidney disease) (Acute) Hypertensive crisis Dyspnea on exertion Essential hypertension (Chronic) Morbid obesity Hypoxia (Acute) Sleep apnea Hypercalcemia Hemodialysis catheter malfunction DVT prophylaxis UTI (urinary tract infection) Nausea Diarrhea Sepsis Hypotension (Acute) UTI (urinary tract infection) (Acute) Tachycardia (Acute) Weakness (Acute) Diaphoresis (Acute) Central venous catheter in place Dialysis AV fistula malfunction Post-surgical hypothyroidism S/P thyroidectomy S/P parathyroidectomy (Acute) ESRD (end stage renal disease) on dialysis (Chronic) Hyperkalemia (Acute) Abdominal pain (Acute) Dilated bile duct (Acute) Pyelonephritis (Acute) Bladder wall thickening Hypoxia (Acute) Fluid overload (Acute) Hypocalcemia (Acute) Failed kidney transplant 2016 ESRD (end stage renal disease) on dialysis (Chronic) MWF at [facility] in [place] HTN (hypertension) (Chronic) controlled, stable per pt HLD (hyperlipidemia) (Chronic) Anemia in chronic kidney disease (Chronic) Hypothyroidism (Chronic) s/p thyroidectomy at [facility] 06/28/22 Medical History Mediastinal mass Secondary hyperparathyroidism Neck pain Thyroid nodule COVID-19 Pulmonary hypertension COPD (chronic obstructive pulmonary disease) Abnormal stress test Limb alert care status Port-A-Cath in place History of peritoneal dialysis Palpitations AV fistula Chronic back pain GERD (gastroesophageal reflux disease) Migraine Sleep apnea Surgical History Hx of total thyroidectomy History of surgery History of appendectomy H/O cystoscopy History of laparoscopy History of bilateral tubal ligation History of kidney transplant History of cholecystectomy History of section History of colonoscopy History of esophagogastroduodenoscopy (EGD) History of tooth extraction History of wisdom tooth extraction History of tonsillectomy and adenoidectomy Family History Grandmother (Paternal) Family history of diabetes mellitus Grandmother (Maternal) Family history of diabetes mellitus Family hx of colon cancer Mother Family hx of colon cancer Other No family history of adverse response to anesthesia Social History Smoking Status: Former smoker Tobacco Type: Cigarettes Second Hand Exposure: No; Do You Dip or Chew Tobacco: No; Hx Alcohol Use: No Hx Substance Use: No Preferred Language: Serbian Communication Ability: Effective Senior Front End Developer Required: No Beliefs That Will Affect Care: None marital status: Current Living Situation: Spouse Current Living Situation Comment: lives at home w spouse How many Children do You have: 1 Feels Safe at Home: Yes Assistive Devices: CPAP and Glasses Allergies Allergies Allergy/AdvReac Type Severity Reaction Status Date / Time levofloxacin AdvReac Severe C-DIFF Verified 07/30/24 14:24 Home Meds Home Medications Medication Instructions Recorded Confirmed aspirin 81 mg chewable tablet 81 mg PO QAM 04/23/18 07/30/24 magnesium oxide 400 mg PO QAM 03/08/22 07/30/24 amlodipine 5 mg tablet 5 mg PO BID 07/21/22 07/30/24 ondansetron HCl 8 mg tablet 8 mg PO TID PRN PRIOR TO 07/21/22 07/30/24 CHEMOTHERAPY MEDS prochlorperazine maleate 10 mg 10 mg PO Q6H PRN NAUSEA/VOMITING 07/21/22 07/30/24 tablet (Compazine) triamcinolone acetonide 0.1 % 1 applic topical BID PRN Rash 07/21/22 07/30/24 topical cream vitamin B complex and vitamin C 1 cap PO DAILY 07/21/22 07/30/24 no.20-folic acid 1 mg capsule (Lucas Caps) imatinib 100 mg tablet (Gleevec) 200 mg PO QPM 09/22/22 07/30/24 calcium acetate(phosphat bind) 667 1,334 mg PO TID 10/20/22 07/30/24 mg capsule omeprazole 40 mg capsule,delayed 40 mg PO DAILY 06/02/23 07/30/24 release oxycodone-acetaminophen 5 mg-325 1 tab PO Q8H PRN Pain 06/02/23 07/30/24 mg tablet calcium carbonate 1,500 mg PO HS 07/16/24 07/30/24 gabapentin 100 mg capsule 100 mg PO BID 07/16/24 07/30/24 metoprolol tartrate 25 mg tablet 25 mg PO DAILY 08/29/24 08/29/24 Previous Rx's Medication Instructions Recorded carboxymethylcellulose sodium 1 drp ophthalmic (eye) 6XD PRN dry 03/09/23 (Refresh Contacts eye drops) eye(s) #12 mL levothyroxine 200 mcg tablet 200 mcg PO DAILY #30 tabs 07/24/24 calcitriol 0.5 mcg capsule 1 mcg (2 x 0.5 mcg) PO QAM #90 caps 07/30/24 clonidine HCl 0.1 mg tablet 0.1 mg PO BID #90 tabs 08/29/24 Results & Data (ED) Vital Signs Vital Signs - 24 hr 10/28/24 06:38 10/28/24 06:40 10/28/24 06:54 Temperature 38.7 C H Temperature Source Oral Pulse Rate 91 H 91 H Pulse Rate from SpO2 Sensor Respiratory Rate 26 H Blood Pressure 188/98 H Blood Pressure Mean 128 Blood Pressure Position Semi-fowlers Pulse Oximetry 92 88 L Oxygen Delivery Method Nasal Cannula Nasal Cannula Oxymask Oxygen Flow Rate 4 6 Sepsis Recent Fever Within 48 Hours Yes Sepsis New/Unexplained Change in Mental Status Yes Sepsis Action Taken by Nursing Physician Notified Oxygen Flow Rate - Titration 12 Pulse Oximetry Post Tiitration 92 10/28/24 06:55 10/28/24 07:25 10/28/24 07:30 Temperature Temperature Source Pulse Rate 84 83 Pulse Rate from SpO2 Sensor 84 Respiratory Rate 26 H 18 Blood Pressure 175/102 H Blood Pressure Mean 122 Blood Pressure Position Pulse Oximetry 92 97 96 Oxygen Delivery Method Oxymask Oxymask Oxymask Oxygen Flow Rate 12 12 12 Sepsis Recent Fever Within 48 Hours Sepsis New/Unexplained Change in Mental Status Sepsis Action Taken by Nursing Oxygen Flow Rate - Titration Pulse Oximetry Post Tiitration 10/28/24 07:51 10/28/24 07:59 Temperature 37.5 C Temperature Source Oral Pulse Rate 87 Pulse Rate from SpO2 Sensor Respiratory Rate 24 Blood Pressure 167/89 H Blood Pressure Mean 115 Blood Pressure Position Pulse Oximetry 98 Oxygen Delivery Method Oxymask Oxygen Flow Rate 12 Sepsis Recent Fever Within 48 Hours Sepsis New/Unexplained Change in Mental Status Sepsis Action Taken by Nursing Oxygen Flow Rate - Titration Pulse Oximetry Post Tiitration Laboratory Data 10/28/24 07:33 10/28/24 06:45 Lab Results 10/28/24 10/28/24 10/28/24 Range/Units 06:45 06:46 07:02 WBC Cancelled RBC Cancelled Hgb Cancelled POC Hgb 8.8 L (12.0-16.0) g/dl Hct Cancelled POC Hct 26 L (37-47) % MCV Cancelled MCH Cancelled MCHC Cancelled RDW Std Deviation Cancelled RDW Coeff of Moriah Cancelled Plt Count Cancelled MPV Cancelled Immature Gran % (Auto) Cancelled Neut % (Auto) Cancelled Lymph % (Auto) Cancelled Kay % (Auto) Cancelled Eos % (Auto) Cancelled Baso % (Auto) Cancelled Neut # (Auto) Cancelled Lymph # (Auto) Cancelled Kay # (Auto) Cancelled Eos # (Auto) Cancelled Baso # (Auto) Cancelled Immature Gran # (Auto) Cancelled Absolute Nucleated RBC Cancelled Nucleated RBC % (auto) Cancelled Neutrophils % (Manual) Cancelled Band Neutrophils % Cancelled Lymphocytes % (Manual) Cancelled Prolymphocyte % Cancelled Reactive Lymphs % (Man) Cancelled Monocytes % (Manual) Cancelled Eosinophils % (Manual) Cancelled Basophils % (Manual) Cancelled Metamyelocytes % (Man) Cancelled Myelocytes % (Man) Cancelled Promyelocytes % (Man) Cancelled Blast Cells % (Manual) Cancelled Plasma Cell % (Manual) Cancelled Other Cells % Cancelled Nucleated RBC % Cancelled Neutrophils # (Manual) Cancelled Band Neutrophils # Cancelled Total Absolute Neuts Cancelled Lymphocytes # (Manual) Cancelled Prolymphocyte # Cancelled Reactive Lymphs # Cancelled Total Abs Lymphocytes Cancelled Monocytes # (Manual) Cancelled Eosinophils # (Manual) Cancelled Basophils # (Manual) Cancelled Metamyelocytes # (Man) Cancelled Myelocytes # (Manual) Cancelled Promyelocytes # (Man) Cancelled Blast Cells # (Man) Cancelled Plasma Cell # (Manual) Cancelled Other Cells # Cancelled Nucleated RBCs # (Man) Cancelled Hypersegmented Neuts Cancelled Hyposegmented Neuts Cancelled Hypogranular Neuts Cancelled Large Granular Lymphs Cancelled # Lrg Granular Lymphs Cancelled Hairy Cells Cancelled Smudge Cells Cancelled Toxic Granulation Cancelled Toxic Vacuolation Cancelled Dohle Bodies Cancelled Shwetha Rods Cancelled Platelet Estimate Cancelled Hypogranular Platelets Cancelled Giant Platelets Cancelled Platelet Satelliting Cancelled RBC Morphology Cancelled Polychromasia Cancelled Hypochromasia Cancelled Poikilocytosis Cancelled Basophilic Stippling Cancelled Anisocytosis Cancelled Microcytosis Cancelled Macrocytosis Cancelled Spherocytes Cancelled Pappenheimer Bodies Cancelled Sickle Cells Cancelled Target Cells Cancelled Tear Drop Cells Cancelled Ovalocytes Cancelled Stomatocytes Cancelled Rosa-Rothbury Bodies Cancelled Echinocytes Cancelled Acanthocytes (Spur) Cancelled Rouleaux Cancelled RBC Agglutinates Cancelled Schistocytes Cancelled Sezary Cell Cancelled PT Cancelled INR Cancelled POC Sodium 129 L (135-144) mmol/L Sodium 135 L (136-145) mmol/L POC Potassium 6.5 H* (3.3-5.0) mmol/L Potassium 6.8 H* (3.5-5.1) mmol/L POC Chloride 93 L (101-112) mmol/L Chloride 92 L (98-107) mmol/L Carbon Dioxide 36 H (21-32) mmol/L POC Total CO2 30 (24-31) mmol/L Anion Gap 7 (3-11) POC Anion Gap 14.0 L (16-25) mmol/L POC BUN 42 H (7-18) mg/dl BUN 48 H (6-23) mg/dl Creatinine 9.54 H* (0.6-1.2) mg/dl POC Creatinine 9.6 H* (0.6-1.3) mg/dl Est Cr Clr Drug Dosing 6.3 ml/min eGFR 4.15 BUN/Creatinine Ratio 5.0 L (10-20) Glucose 98 (70-99(Fasting)) mg/dl POC Glucose (other) 99 (70-99) mg/dl Lactate 2.1 H* (0.4-2.0) mmol/L Calcium 8.8 (8.6-10.3) mg/dl POC Ioniz Calcium Valeri 1.03 L (1.12-1.32) mmol/l Magnesium 2.4 (1.7-2.4) mg/dl Total Bilirubin 0.9 (0.2-1.0) mg/dl AST 22 (13-39) U/L ALT 11 (7-52) U/L Alkaline Phosphatase 42 (34-104) U/L Troponin I High Sens 1507.7 H* (0-14) pg/ml B-Natriuretic Peptide (0-100) pg/ml Total Protein 5.8 L (6.0-8.3) gm/dl Albumin 3.6 (3.4-5.0) gm/dl Globulin 2.2 L (2.5-4.0) gm/dl Albumin/Globulin Ratio 1.6 (0.9-2) Lipase 9 L (11-82) U/L TSH 1.218 (0.300-4.500) uIu/ml Adenovirus (PCR) Not Detected (NotDetected) B. pertussis DNA (PCR) Not Detected (NotDetected) B.parapertussis DNA PCR Not Detected (NotDetected) C. pneumoniae DNA (PCR) Not Detected (NotDetected) Coronavirus OC43 (PCR) Not Detected (NotDetected) Coronavirus HKU1 (PCR) Not Detected (NotDetected) Coronavirus 229E (PCR) Not Detected (NotDetected) SARS-CoV-2 (PCR) Not Detected (NotDetected) Coronavirus NL63 (PCR) Not Detected (NotDetected) Human Metapneumovir PCR Not Detected (NotDetected) Influenza Type A (PCR) Not Detected (NotDetected) Influenza Type B (PCR) Not Detected (NotDetected) M. pneumoniae (PCR) Not Detected (NotDetected) Parainfluenza 1 (PCR) Not Detected (NotDetected) Parainfluenza 2 (PCR) Not Detected (NotDetected) Parainfluenza 3 (PCR) Not Detected (NotDetected) Parainfluenza 4 (PCR) Not Detected (NotDetected) RSV (PCR) Not Detected (NotDetected) Entero/Rhino (PCR) Not Detected (NotDetected) Blood Parasites ID Cancelled 10/28/24 Range/Units 07:33 WBC 10.37 RBC 2.79 L Hgb 8.6 L POC Hgb (12.0-16.0) g/dl Hct 26.8 L POC Hct (37-47) % MCV 96.1 MCH 30.8 MCHC 32.1 RDW Std Deviation 48.3 H RDW Coeff of Moriah 13.8 Plt Count 97 L MPV 10.4 Immature Gran % (Auto) 0.6 Neut % (Auto) 82.3 Lymph % (Auto) 5.5 Kay % (Auto) 10.4 Eos % (Auto) 0.9 Baso % (Auto) 0.3 Neut # (Auto) 8.54 H Lymph # (Auto) 0.57 L Kay # (Auto) 1.08 H Eos # (Auto) 0.09 Baso # (Auto) 0.03 Immature Gran # (Auto) 0.06 Absolute Nucleated RBC Nucleated RBC % (auto) Neutrophils % (Manual) Band Neutrophils % Lymphocytes % (Manual) Prolymphocyte % Reactive Lymphs % (Man) Monocytes % (Manual) Eosinophils % (Manual) Basophils % (Manual) Metamyelocytes % (Man) Myelocytes % (Man) Promyelocytes % (Man) Blast Cells % (Manual) Plasma Cell % (Manual) Other Cells % Nucleated RBC % Neutrophils # (Manual) Band Neutrophils # Total Absolute Neuts Lymphocytes # (Manual) Prolymphocyte # Reactive Lymphs # Total Abs Lymphocytes Monocytes # (Manual) Eosinophils # (Manual) Basophils # (Manual) Metamyelocytes # (Man) Myelocytes # (Manual) Promyelocytes # (Man) Blast Cells # (Man) Plasma Cell # (Manual) Other Cells # Nucleated RBCs # (Man) Hypersegmented Neuts Hyposegmented Neuts Hypogranular Neuts Large Granular Lymphs # Lrg Granular Lymphs Hairy Cells Smudge Cells Toxic Granulation Toxic Vacuolation Dohle Bodies Shwetha Rods Platelet Estimate Decreased L Hypogranular Platelets Giant Platelets Platelet Satelliting RBC Morphology Polychromasia Hypochromasia Poikilocytosis Basophilic Stippling Anisocytosis Microcytosis Macrocytosis Spherocytes Pappenheimer Bodies Sickle Cells Target Cells Tear Drop Cells Ovalocytes Stomatocytes Rosa-Rothbury Bodies Echinocytes Acanthocytes (Spur) Rouleaux RBC Agglutinates Schistocytes Sezary Cell PT INR POC Sodium (135-144) mmol/L Sodium (136-145) mmol/L POC Potassium (3.3-5.0) mmol/L Potassium (3.5-5.1) mmol/L POC Chloride (101-112) mmol/L Chloride (98-107) mmol/L Carbon Dioxide (21-32) mmol/L POC Total CO2 (24-31) mmol/L Anion Gap (3-11) POC Anion Gap (16-25) mmol/L POC BUN (7-18) mg/dl BUN (6-23) mg/dl Creatinine (0.6-1.2) mg/dl POC Creatinine (0.6-1.3) mg/dl Est Cr Clr Drug Dosing ml/min eGFR BUN/Creatinine Ratio (10-20) Glucose (70-99(Fasting)) mg/dl POC Glucose (other) (70-99) mg/dl Lactate (0.4-2.0) mmol/L Calcium (8.6-10.3) mg/dl POC Ioniz Calcium Valeri (1.12-1.32) mmol/l Magnesium (1.7-2.4) mg/dl Total Bilirubin (0.2-1.0) mg/dl AST (13-39) U/L ALT (7-52) U/L Alkaline Phosphatase (34-104) U/L Troponin I High Sens (0-14) pg/ml B-Natriuretic Peptide 2067 H (0-100) pg/ml Total Protein (6.0-8.3) gm/dl Albumin (3.4-5.0) gm/dl Globulin (2.5-4.0) gm/dl Albumin/Globulin Ratio (0.9-2) Lipase (11-82) U/L TSH (0.300-4.500) uIu/ml Adenovirus (PCR) (NotDetected) B. pertussis DNA (PCR) (NotDetected) B.parapertussis DNA PCR (NotDetected) C. pneumoniae DNA (PCR) (NotDetected) Coronavirus OC43 (PCR) (NotDetected) Coronavirus HKU1 (PCR) (NotDetected) Coronavirus 229E (PCR) (NotDetected) SARS-CoV-2 (PCR) (NotDetected) Coronavirus NL63 (PCR) (NotDetected) Human Metapneumovir PCR (NotDetected) Influenza Type A (PCR) (NotDetected) Influenza Type B (PCR) (NotDetected) M. pneumoniae (PCR) (NotDetected) Parainfluenza 1 (PCR) (NotDetected) Parainfluenza 2 (PCR) (NotDetected) Parainfluenza 3 (PCR) (NotDetected) Parainfluenza 4 (PCR) (NotDetected) RSV (PCR) (NotDetected) Entero/Rhino (PCR) (NotDetected) Blood Parasites ID Administered Medications Sodium Bicarbonate 150 meq/ (Dextrose) 1,150 mls @ 290 mls/hr IV .[id number] STA Stop: 10/28/24 11:28 Last Admin: 10/28/24 07:56 Dose: 290 mls/hr Documented By: REMIGIO Discontinued Medications Albuterol (Albuterol 0.5% Neb Soln 2.5 Mg/0.5 Ml Vial) 10 mg NEB NOW STA Stop: 10/28/24 07:32 Last Admin: 10/28/24 07:39 Dose: 10 mg Documented By: CEF Dextrose (Dextrose 50% 50 Ml Syringe) 50 ml IV NOW STA Stop: 10/28/24 07:32 Last Admin: 10/28/24 07:56 Dose: 50 ml Documented By: REMIGIO Acetaminophen (Ofirmev) 1,000 mg in 100 mls @ 400 mls/hr IV NOW STA Stop: 10/28/24 07:05 Last Infusion: 10/28/24 07:28 Dose: Infused Documented By: Admin: 10/28/24 07:12 Dose: 400 mls/hr Documented By: REMIGIO Calcium Gluconate () 1,000 mg in 60 mls @ 240 mls/hr IV NOW STA Stop: 10/28/24 07:18 Last Infusion: 10/28/24 07:27 Dose: Infused Documented By: Admin: 10/28/24 07:12 Dose: 240 mls/hr Documented By: REMIGIO Insulin Human Regular 10 units (/ Syringe) 9.9 mls @ 3 mls/sec IV ONE STA Stop: 10/28/24 07:32 Last Admin: 10/28/24 07:51 Dose: Not Given Documented By: CEF Cefepime HCl (Maxipime 2000mg) 2,000 mg in 20 mls @ 5 mls/min IV NOW STA; Protocol Stop: 10/28/24 08:07 Last Admin: 10/28/24 08:10 Dose: 5 mls/min Documented By: REMIGIO Insulin Human Regular (Novolin-R Insulin Per Unit Charge) 5 units IV NOW STA Stop: 10/28/24 07:51 Last Admin: 10/28/24 07:56 Dose: 5 units Documented By: REMIGIO Co-signed By: CEF Nitroglycerin (Nitroglycerin Sl 0.4 Mg/Tab Tab) 0.4 mg SL NOW STA Stop: 10/28/24 06:43 Last Admin: 10/28/24 06:47 Dose: 0.4 mg Documented By: [facility] Discharge Plan Visit Data Chief Complaint: Hypertension Stated Complaint: hypertension, tachycardia, fever ED Provider: Steve Perez Discharge Problem: Acute hyperkalemia Patient Disposition: Admitted As Inpatient Condition: Fair Forms Stand Alone [facility]: [facility] Prescriptions: No Action clonidine HCl 0.1 mg tablet 0.1 mg PO BID Qty: 90 2RF metoprolol tartrate 25 mg tablet 25 mg PO DAILY calcitriol 0.5 mcg capsule 1 mcg PO QAM Qty: 90 2RF calcium carbonate 500 mg calcium (1,250 mg) tablet,chewable 1,500 mg PO HS levothyroxine 200 mcg tablet 200 mcg PO DAILY Qty: 30 5RF aspirin 81 mg Tablet,Chewable 81 mg PO QAM Rx Instructions: TAKE WITH FOOD gabapentin 100 mg capsule 100 mg PO BID magnesium oxide 400 mg magnesium Tablet 400 mg PO QAM ondansetron HCl 8 mg Tablet 8 mg PO TID PRN (Reason: PRIOR TO CHEMOTHERAPY MEDS) amlodipine 5 mg Tablet 5 mg PO BID prochlorperazine maleate [Compazine] 10 mg Tablet 10 mg PO Q6H PRN (Reason: NAUSEA/VOMITING) triamcinolone acetonide 0.1 % Cream 1 applic TOPICAL BID PRN (Reason: Rash) [place] Caps 1 mg Capsule 1 cap PO DAILY Rx Instructions: TAKE AFTER DIALYSIS TREATMENT. Dialysis days are Mon/Wed/Fri imatinib [Gleevec] 100 mg Tablet 200 mg PO QPM Rx Instructions: TAKE WITH A MEAL calcium acetate(phosphat bind) 667 mg capsule 1,334 mg PO TID Rx Instructions: w/meals and snack Refresh Contacts Drops 1 drp ophthalmic (eye) 6XD PRN (Reason: dry eye(s)) Qty: 12 0RF oxycodone-acetaminophen 5-325 mg tablet 1 tab PO Q8H PRN (Reason: Pain) omeprazole 40 mg capsule,delayed release(DR/EC) 40 mg PO DAILY Referrals Referrals: Jameel Reyna DO [Primary Care Provider] -
[2024-10-28] MEDS: NITROGLYCERIN SL 0.4 MG/TAB TAB SL STA (06:47)
[2024-10-28] MEDS: CALCIUM GLUCONATE 1,000 MG/60 ML BAG IV STA ×2 (07:12→16:52)
[2024-10-28] MEDS: ACETAMINOPHEN 1,000 MG/100 ML VIAL IV STA (07:12)
[2024-10-28 07:32] LABS: Alanine Aminotransferase 11.0 U/L (7-52); Albumin Globulin Ratio 1.6 (0.9-2); Alkaline Phosphatase 42.0 U/L (34-104); Anion Gap 7.0 (3-11); Bilirubin,Total 0.9 mg/dl (0.2-1.0); Blood Urea Nitrogen 48.0 mg/dl (6-23); Calcium 8.8 mg/dl (8.6-10.3); Carbon Dioxide 36.0 mmol/L (21-32); Chloride 92.0 mmol/L (98-107); Creatinine Clr Calc Pharmacy 6.3 ml/min; Globulin 2.2 gm/dl (2.5-4.0); Glucose 98.0 mg/dl (70-99(Fasting)); Lipase 9.0 U/L (11-82); Magnesium 2.4 mg/dl (1.7-2.4); Potassium 6.8 mmol/L (3.5-5.1); Sodium 135.0 mmol/L (136-145); Total Protein 5.8 gm/dl (6.0-8.3)
[2024-10-28 07:39] LABS: Thyroid Stimulating Hormone 1.218 uIu/ml (0.300-4.500)
[2024-10-28] MEDS: ALBUTEROL 0.5% NEB SOLN 2.5 MG/0.5 ML VIAL NEB STA (07:39)
[2024-10-28 07:44] LABS: Chlamydia pneumoniae PCR Not Detected (NotDetected); Coronavirus 229E PCR Not Detected (NotDetected); Coronavirus CoV-2 (COVID19)PCR Not Detected (NotDetected); Coronavirus HKU1 PCR Not Detected (NotDetected); Coronavirus NL63 PCR Not Detected (NotDetected); Coronavirus OC43PCR Not Detected (NotDetected); Human Metapneumovirus PCR Not Detected (NotDetected); Parainfluenza Virus 1 PCR Not Detected (NotDetected); Parainfluenza Virus 2 PCR Not Detected (NotDetected); Parainfluenza Virus 3 PCR Not Detected (NotDetected); Parainfluenza Virus 4 PCR Not Detected (NotDetected); Respiratory Syncytial VirusPCR Not Detected (NotDetected); Rhinovirus/Enterovirus PCR Not Detected (NotDetected)
[2024-10-28] MEDS: INSULIN HUMAN REGULAR PER UNIT 10 UNITS in SYRINGE 9.9 ML IV STA (07:51)
[2024-10-28] MEDS: SODIUM BICARBONATE 8.4% 150 MEQ in DEXTROSE 5% 1,000 ML IV STA (07:56)
[2024-10-28] MEDS: DEXTROSE 50% 50 ML SYRINGE IV STA (07:56)
[2024-10-28] MEDS: NovoLIN-R INSULIN PER UNIT CHARGE IV STA (07:56)
[2024-10-28 08:09] LABS: Hematocrit (blood only) 26.8 % (37.0-47.0); Hemoglobin 8.6 g/dl (12.0-16.0); Immature Granulocytes # (auto) 0.06 K/uL (0.01-0.20); Immature Granulocytes % (auto) 0.6 %; Mean Corpuscular Hemoglobin 30.8 pg (25.0-34.0); Mean Corpuscular Volume 96.1 fL (80.0-100.0); Platelet Count 97 K/uL (130-400); RDW Standard Deviation 48.3 fL (36.4-46.3); Red Blood Count 2.79 M/uL (4.20-5.40); White Blood Count 10.37 K/ul (4.8-10.8)
[2024-10-28] MEDS: CEFEPIME 2000MG 2,000 MG/20 ML SYR IV STA (08:10)
[2024-10-28 08:20] LABS: INR 1.2 (0.9-1.1); Prothrombin Time 12.8 Seconds (9.0-12.0)
[2024-10-28] MEDS ORDERED: POLYETHYLENE (MIRALAX) 17 GM PACK PO PRN (08:36)
--- NOTE | 2024-10-28 08:44 | CT Scan Report ---
EXAM: CT head/brain wo con CLINICAL HISTORY: AMS. TECHNIQUE: Axial non-contrast CT scan of the brain was performed from the skull base to the high parietal region. One of the following dose reduction techniques were utilized for this exam: Automated exposure control, adjustment of the mA and/or kV according to patient size, use of iterative reconstruction. COMPARISON: 03/09/2023. FINDINGS: Brain Parenchyma: Normal attenuation of the cerebral hemispheres, cerebellum, and brainstem. No evidence of acute infarct, hemorrhage, or mass effect. No abnormal areas of hypo- or hyperattenuation. Ventricular System: Ventricles are normal in size and configuration. No evidence of hydrocephalus or ventricular enlargement. Subarachnoid Spaces: Normal sulci and cisterns. No evidence of subarachnoid hemorrhage or extra-axial fluid collections. Cerebellum and Brainstem: No masses, lesions, or areas of abnormal density. Orbits: Normal appearance of the globes, optic nerves, and extraocular muscles. No evidence of orbital masses or abnormal density. Sinuses: Clear paranasal sinuses. No evidence of sinusitis or mucosal thickening. Mastoid Air Cells: Clear mastoid air cells. No evidence of mastoiditis. Skull: Normal skull morphology. IMPRESSION: No gross interval change in comparison with the prior CT on 03/09/2023. Unremarkable CT of the head without contrast. Electronically signed by Jamarcus Dove 10-28-2024 08:44 AM
--- NOTE | 2024-10-28 08:52 | History & Physical Report ---
Date of Service October 28, 2024 Assessment & Plan (1) Acute hyperkalemia: (2) Hypothyroidism: (3) ESRD on hemodialysis: (4) Gastrointestinal stromal tumor (GIST): (5) Essential hypertension: (6) Morbid obesity: (7) COPD (chronic obstructive pulmonary disease): (8) Uremia: Plan 68 yo female with pmhx of ESRD (MWF) c/b renal transplant failure, chronic hypoxic respiratory failure (on 2L chronically) 2/2 severe COPD, Graves disease, severe CHEYENNE, 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 Neurologic: #Uremic Encephalopathy -patient slightly confused but orriented to person, place, time Plan: -emergent dialysis -hold gabapentin -avoid anticholinergics -high risk for delirium Respiratory: #Acute on Chronic Hypoxic Respiratory Failure #Severe CHEYENNE #Severe COPD -on 2L at baseline -xray with diffuse pulmonary edema and bilateral pleural effusions -currently on 12 L NC Plan: -check VBG, sputum culture -start IS and fluter valve -emergent dialysis -CPAP ordered, wears at night -check MRSA swab Cardiac: #Type 2 VT -EKG personally reviewed, peaked T waves with slightly prolonged QRS in setting severe hyperkalemia -septal ST elevations with T wave inversions appear worse but relatively similar to prior -no chest pain, last echo 2021 with preserved EF and grade 1 diastolic dysfunction Plan: -check echo -emergent dialysis -cardiology consulted, appreciate recs GI: #GIST Tumor -has not been following up with oncology, on imatinib -last imaging of liver a year ago had questionable mets -suspect potential cause of abdominal pain, nausea, vomiting, possible infection Plan: -CT abdomen and pelvis with IV contrast ordered post dialysis -zofran for nausea/vomiting, QTc acceptable -of note, I am ok with IV contrast given likely cause of missed dialysis sessions Renal: #ESRD (MWF) #Severe Uremia -missed 3 dialysis sessions in past week -has left arm AV fistula -has been missing for abdominal pain, nausea, vomiting -confusion, twitching throughout body signs of uremic crisis Plan: -emergent dialysis ID: #Severe Sepsis -as evidenced by fevers, tachycardia, tachypnea with likely source of abdomen given nausea/vomiting -could be uremia as well Plan: -start vanc/zosyn -f/u blood cultures -CT abdomen/pelvis with contrast ordered for further evaluation, check UA as well Endocrine: #Hypothyroidism #Graves Disease -TSH WNL -s/p thyroidectomy and parathyroidectomy Plan: -continue levothyroxine -check AM cortisol I spent a total of 90 minutes in direct patient care, including [id number] time with the patient and/or family, reviewing medical records, ordering and reviewing diagnostic tests, and coordinating care with other healthcare providers. This time includes: history taking, physical examination, medical decision making, counseling, ECG interpretation, imaging interpretation, lab interpretation, orders, and education, excluding time spent in the performance of separately billed services. Admission and Anticipated Discharge Date Admission Date: October 28, 2024 History of Present Illness Chief Complaint: -fever hypertension Primary Care Provider: Jameel Reyna DO 68 yo female with pmhx of ESRD (MWF) c/b renal transplant failure, chronic hypoxic respiratory failure (on 2L chronically) 2/2 severe COPD, Graves disease, severe CHEYENNE, GIST tumor (on imatinib, has not been following up), s/p thyroidectomy/parathyroidectomy who presents for fever and HTN at home. Last admission on 03/2023 for dialysis fistula malfunction. In the ED, noted to have hyperkalemia of 7, received insulin/bicarb/albuterol, placed on 12 liters of oxygen, nephrology consulted, taken to emergent dialysis, admitted to medicine for further workup. Patient seen and examined at bedside in dialysis center. Patient doing poorly today. States she has missed 3 dialysis sessions in the past week for abdominal pain, nausea, vomiting. Normally MWF, states she tries to do her dialysis as much as possible. Per chart review, hx of missed dialysis sessions in past. Has not been following up with her cancer doctor. States she takes most of her medications as prescribed. No chest pain, has some SOB at this time. Has some nausea right now but no vomiting or diarrhea. No abdominal pain currently. Has frequent uncontrollable twitching per patient. Has been getting worse over the past few days. Has some itching as well. Has worsening fatigue and weakness as well. No tobacco use, no alcohol use, no drug use, DNRDNI discussed with patient and witnessed with RN. Other than dialysis no artificial life support. Allergies Allergy/AdvReac Type Severity Reaction Status Date / Time levofloxacin AdvReac Severe C-DIFF Verified 07/30/24 14:24 Home Medications Medication Instructions Recorded Confirmed Type aspirin 81 mg chewable tablet 81 mg PO QAM 04/23/18 07/30/24 History magnesium oxide 400 mg PO QAM 03/08/22 07/30/24 History amlodipine 5 mg tablet 5 mg PO BID 07/21/22 07/30/24 History ondansetron HCl 8 mg tablet 8 mg PO TID PRN PRIOR TO 07/21/22 07/30/24 History CHEMOTHERAPY MEDS prochlorperazine maleate 10 mg 10 mg PO Q6H PRN NAUSEA/VOMITING 07/21/22 07/30/24 History tablet (Compazine) triamcinolone acetonide 0.1 % 1 applic topical BID PRN Rash 07/21/22 07/30/24 History topical cream vitamin B complex and vitamin C 1 cap PO DAILY 07/21/22 07/30/24 History no.20-folic acid 1 mg capsule (Natrona Caps) imatinib 100 mg tablet (Gleevec) 200 mg PO QPM 09/22/22 07/30/24 History calcium acetate(phosphat bind) 667 1,334 mg PO TID 10/20/22 07/30/24 History mg capsule carboxymethylcellulose sodium 1 drp ophthalmic (eye) 6XD PRN dry 03/09/23 07/30/24 Rx (Refresh Contacts eye drops) eye(s) #12 mL omeprazole 40 mg capsule,delayed 40 mg PO DAILY 06/02/23 07/30/24 History release oxycodone-acetaminophen 5 mg-325 1 tab PO Q8H PRN Pain 06/02/23 07/30/24 History mg tablet calcium carbonate 1,500 mg PO HS 07/16/24 07/30/24 History gabapentin 100 mg capsule 100 mg PO BID 07/16/24 07/30/24 History levothyroxine 200 mcg tablet 200 mcg PO DAILY #30 tabs 07/24/24 07/30/24 Rx calcitriol 0.5 mcg capsule 1 mcg (2 x 0.5 mcg) PO QAM #90 caps 07/30/24 07/30/24 Rx clonidine HCl 0.1 mg tablet 0.1 mg PO BID #90 tabs 08/29/24 08/29/24 Rx metoprolol tartrate 25 mg tablet 25 mg PO DAILY 08/29/24 08/29/24 History Past Med/Surg History Problem List (Updated 10/28/24 @ 09:00 by Mario Cook MD) Uremic encephalopathy Uremia Acute hyperkalemia (Acute) Hypothyroidism Hot flashes Dialysis AV fistula malfunction Anemia (Acute) ESRD on hemodialysis (Acute) Hypocalcemia (Acute) 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 Encounter for pre-operative examination Hypertensive urgency (Acute) Abnormal finding on MRI of brain (Acute) Chronic migraine (Acute) CKD (chronic kidney disease) (Acute) Hypertensive crisis Dyspnea on exertion Essential hypertension (Chronic) Morbid obesity Hypoxia (Acute) Sleep apnea Hypercalcemia Hemodialysis catheter malfunction DVT prophylaxis UTI (urinary tract infection) Nausea Diarrhea Sepsis Hypotension (Acute) UTI (urinary tract infection) (Acute) Tachycardia (Acute) Weakness (Acute) Diaphoresis (Acute) Central venous catheter in place Dialysis AV fistula malfunction Post-surgical hypothyroidism S/P thyroidectomy S/P parathyroidectomy (Acute) ESRD (end stage renal disease) on dialysis (Chronic) Hyperkalemia (Acute) Abdominal pain (Acute) Dilated bile duct (Acute) Pyelonephritis (Acute) Bladder wall thickening Hypoxia (Acute) Fluid overload (Acute) Hypocalcemia (Acute) Failed kidney transplant 2016 ESRD (end stage renal disease) on dialysis (Chronic) MWF at [facility] in [place] HTN (hypertension) (Chronic) controlled, stable per pt HLD (hyperlipidemia) (Chronic) Anemia in chronic kidney disease (Chronic) Hypothyroidism (Chronic) s/p thyroidectomy at [facility] 06/28/22 Medical History Mediastinal mass Secondary hyperparathyroidism Neck pain Thyroid nodule COVID-19 Pulmonary hypertension COPD (chronic obstructive pulmonary disease) Abnormal stress test Limb alert care status Port-A-Cath in place History of peritoneal dialysis Palpitations AV fistula Chronic back pain GERD (gastroesophageal reflux disease) Migraine Sleep apnea Surgical History Hx of total thyroidectomy History of surgery History of appendectomy H/O cystoscopy History of laparoscopy History of bilateral tubal ligation History of kidney transplant History of cholecystectomy History of section History of colonoscopy History of esophagogastroduodenoscopy (EGD) History of tooth extraction History of wisdom tooth extraction History of tonsillectomy and adenoidectomy Family History Grandmother (Paternal) Family history of diabetes mellitus Grandmother (Maternal) Family history of diabetes mellitus Family hx of colon cancer Mother Family hx of colon cancer Other No family history of adverse response to anesthesia Social History Smoking Status: Former smoker Tobacco Type: Cigarettes Second Hand Exposure: No; Do You Dip or Chew Tobacco: No; Hx Alcohol Use: No Hx Substance Use: No Preferred Language: [place] Communication Ability: Effective Roof Promenade Tile Setter Required: No Beliefs That Will Affect Care: None marital status: Current Living Situation: Spouse Current Living Situation Comment: lives at home w spouse How many Children do You have: 1 Feels Safe at Home: Yes Assistive Devices: CPAP and Glasses Review of Systems Review of Systems: -negative unless listed above Physical Exam Physical Exam: Gen: A&O 2-3 frequent twitching, does not appear comfortable HEENT: NCAT, EOMI, not icteric. External ears normal. No rhinorrhea. Dry mucous membranes. Neck: Supple, full range of motion, no observable masses, No meningeal sign. Lungs: diffuse crackles throughout lung myers CV: tachycardic, 1+ pitting edema bilaterally Abdomen: mild diffuse tenderness to palpation MSK: very dry skin Skin: see above Neuro: slightly confused, frequent twitching in extremities, face Psych: appears slightly agitated Results & Data Results & Data Vital Signs (Past 12 Hours) Vital Signs Temp Pulse Resp BP Pulse Ox O2 Del Method O2 Flow Rate 10/28/24 07:59 37.5 C 10/28/24 07:51 87 24 167/89 H 98 Oxymask 12 10/28/24 07:30 83 18 96 Oxymask 12 10/28/24 07:25 84 26 H 175/102 H 97 Oxymask 12 10/28/24 06:55 92 Oxymask 12 10/28/24 06:54 88 L Nasal Cannula, Oxymask 6 10/28/24 06:40 38.7 C H 91 H 26 H 188/98 H 92 Nasal Cannula 4 10/28/24 06:38 91 H Laboratory Results -personally reviewed, Hgb slightly lower than baseline likely dilutional, thrombocytopenia noted, K of 6.8, creatinine of 9.5 in setting of 3 missed dialysis sessions in past week, trop of 1500 in setting of severe renal failure, elevated BNP in setting of severe renal failure causing fluid overload, ionized calcium low in setting of renal failure, elevated procalcitonin in setting of possible infection and renal failure Medications Administered Sodium Bicarbonate 150 meq/ (Dextrose) 1,150 mls @ 290 mls/hr IV .Q3H58M STA Stop: 10/28/24 11:28 Last Admin: 10/28/24 07:56 Dose: 290 mls/hr Documented By: REMIGIO Code Status & VTE Plan Code Status -DNRDNI discussed with patient witnessed by RN, no artificial life support other than dialysis VTE Prophylaxis Plan VTE Prophylaxis will be ordered: Yes (2) Hypothyroidism Hypothyroidism type: postoperative Qualified Code(s): E89.0 - Postprocedural hypothyroidism
--- NOTE | 2024-10-28 08:57 | XRay Report ---
EXAM: XR chest 1V portable CLINICAL HISTORY: Chest pain, nonspecific TECHNIQUE: An X-ray image of the chest is obtained in AP projection. COMPARISON: Prior X-ray dated 06/05/2024 . FINDINGS: Pulmonary Parenchyma: Right chemoport with tip at the cavoatrial junction. Interval resolution of haziness in right lower zone and decrease in haziness in left lower zone. Unchanged prominent bronchovascular markings in bilateral lungs likely pulmonary congestion. Unchanged obscured left CP angle and interval blunting of right CP angle likely small pleural effusion. Heart and Mediastinum: Cardiomegaly. No mediastinal widening or masses. No hilar or mediastinal lymphadenopathy. Bony Thorax: Bony thorax appears intact without fractures or deformities. Soft Tissues: Soft tissues overlying the chest wall are unremarkable. IMPRESSION: 1. Right chemoport with tip at the cavoatrial junction. 2. Interval resolution of haziness in right lower zone and decrease in haziness in left lower zone. 3. Unchanged prominent bronchovascular markings in bilateral lungs likely pulmonary congestion. 4. Unchanged obscured left CP angle and interval blunting of right CP angle likely small pleural effusion. 5. Cardiomegaly. Electronically signed by Jamarcus Dove 10-28-2024 08:56 AM
[2024-10-28] MEDS ORDERED: VANCOMYCIN CONSULT ACTIVE PRN (09:23)
[2024-10-28 09:49] LABS: Cholesterol 148.0 mg/dl (0-200); HDL Cholesterol 36.0 mg/dl; Triglycerides 101.0 mg/dl (0-150)
[2024-10-28 09:56] LABS: Hemoglobin A1C 4.5 % (4.5-5.6)
[2024-10-28 10:18] LABS: Hep B Surface Ag with confirm Negative (Negative)
--- NOTE | 2024-10-28 10:21 | Nephrology Consultation ---
Date of Consultation October 28, 2024 Assessment & Plan (1) ESRD on hemodialysis: ESRD after failed renal transplant. almost anuric sp not much wiggle room to miss dialysis. .ESRD (MWF) at [facility]. with her chronic hypoxic respiratory failure (on 2L chronically) due to severe COPD no wiggle room for CHF/fluid overload. In the ED, noted to have hyperkalemia of 7, received insulin/bicarb/albuterol, placed on 12 liters of oxygen. Taken for emergent Dialysis for K and volume management. Just had ECHO and looks decent so appears both high k and pulm edema related with missing dialysis. She said she will do better. may well do dialysis again tomorrow and then wed to get her back to baseline. if she still c/o nausea and abd pain after dialysis Consider doing CT abdomen (2) Acute hyperkalemia: Multiple missed Dialysis session last week so Has high K today. No major EKG c hanges currently. After dialysis should be fine for now. Did remind her not to miss dialysis session to avoid future issues. (3) Pulmonary edema due to fluid overload: Again this is sec to Missing dialysis. ECHO looks fine so entirely due to missing dialysis. with her underlying COPD she does not have much capacity to handle Fluid overload/CHF. Did remind her not to miss dialysis session to avoid future issu (4) Uremia: had some features like twitching, nausea as well as itching. but hard to tell now whether all from uremia or there are some other causes for this. may well do dialysis agin tomorrow and then wed to get her back to baseline Plan Time spent 63 mins including multiple communication with ED doctor and Dialysis nurse arranging for emergent dialysis. History of Present Illness Reason for Consultation: ESRD on dialysis with high K and Fluid overload. Attending Physician: Mario Cook MD History of Present Illness 68/F with ESRD (MWF) at [facility]. h/o failed renal transplant, chronic hypoxic respiratory failure (on 2L chronically) due to severe COPD, Graves disease, severe CHEYENNE, GIST tumor (on imatinib, has not been following up), s/p thyroidectomy/parathyroidectomy who presented to ED with fever and HTN and SOB. Last admission was on 03/2023 for dialysis fistula malfunction. In the ED, noted to have hyperkalemia of 7, received insulin/bicarb/albuterol, placed on 12 liters of oxygen. Taken for emergent Dialysis for K and volume management. Just had ECHO and looks decent. Patient seen and examined at bedside in dialysis center. She has missed 3 dialysis sessions in the past week because of abdominal pain, nausea, vomiting. last dialysis Was monday as per patient. Admitted lot of missed dialysis sessions in past. Has not been following up with her cancer doctor either. No chest pain, has some SOB at this time. Has some nausea right now but no vomiting or diarrhea. No abdominal pain currently. She was having frequent twitching at home and also in ED. Has been getting worse over the past few days. Has some itching as well. Has worsening fatigue and weakness as well. No tobacco use, no alcohol use, no drug use. She is DNR/DNI. Since being on dialysis starting to feel better and looking better already. ROS--See HPI. unless stated otherwise 12 Systems reviewed and negative. Physical Exam Physical Exam: Gen: AAO x 3 Now normal speech. HEENT: Moist mucous membranes. Neck: Supple. No JVD Lungs: diffuse crackles b/l at bases CV: tachycardic, 1+ pitting edema bilaterally Abdomen: mild diffuse tenderness Allergies Allergy/AdvReac Type Severity Reaction Status Date / Time levofloxacin AdvReac Severe C-DIFF Verified 07/30/24 14:24 Home Medications Medication Instructions Recorded Confirmed Type aspirin 81 mg chewable tablet 81 mg PO QAM 04/23/18 07/30/24 History magnesium oxide 400 mg PO QAM 03/08/22 07/30/24 History amlodipine 5 mg tablet 5 mg PO BID 07/21/22 07/30/24 History ondansetron HCl 8 mg tablet 8 mg PO TID PRN PRIOR TO 07/21/22 07/30/24 History CHEMOTHERAPY MEDS prochlorperazine maleate 10 mg 10 mg PO Q6H PRN NAUSEA/VOMITING 07/21/22 07/30/24 History tablet (Compazine) triamcinolone acetonide 0.1 % 1 applic topical BID PRN Rash 07/21/22 07/30/24 History topical cream vitamin B complex and vitamin C 1 cap PO DAILY 07/21/22 07/30/24 History no.20-folic acid 1 mg capsule (Lucas Caps) imatinib 100 mg tablet (Gleevec) 200 mg PO QPM 09/22/22 07/30/24 History calcium acetate(phosphat bind) 667 1,334 mg PO TID 10/20/22 07/30/24 History mg capsule carboxymethylcellulose sodium 1 drp ophthalmic (eye) 6XD PRN dry 03/09/23 07/30/24 Rx (Refresh Contacts eye drops) eye(s) #12 mL omeprazole 40 mg capsule,delayed 40 mg PO DAILY 06/02/23 07/30/24 History release oxycodone-acetaminophen 5 mg-325 1 tab PO Q8H PRN Pain 06/02/23 07/30/24 History mg tablet calcium carbonate 1,500 mg PO HS 07/16/24 07/30/24 History gabapentin 100 mg capsule 100 mg PO BID 07/16/24 07/30/24 History levothyroxine 200 mcg tablet 200 mcg PO DAILY #30 tabs 07/24/24 07/30/24 Rx calcitriol 0.5 mcg capsule 1 mcg (2 x 0.5 mcg) PO QAM #90 caps 07/30/24 07/30/24 Rx clonidine HCl 0.1 mg tablet 0.1 mg PO BID #90 tabs 08/29/24 08/29/24 Rx metoprolol tartrate 25 mg tablet 25 mg PO DAILY 08/29/24 08/29/24 History Patient History Medical History Mediastinal mass ongoing work-up with [facility] thoracic medicine and heme/onc Secondary hyperparathyroidism Neck pain h/o UE paresthesias; pt states neck pain and upper extremity abnormal symptoms>fully resolved Thyroid nodule s/p thyroidectomy COVID-19 hx-01/29/22-not hospitalized-symptoms fully resolved Pulmonary hypertension COPD (chronic obstructive pulmonary disease) stable per pt, no longer using supplemental oxygen-states home pulse ox readings are consistently 97% or greater-pt states provider is aware Abnormal stress test 01/2021 (reversible anterior and basal lateral defect consistent with ischemia vs soft tissue attenuation artifact) per [facility] cardio records, plan for medical management and consideration for DSE at 03/2021 appt; final determination per [facility] cardio is recommendation for diagnostic cardiac catheterization not yet scheduled by patient; now advised risk > benefit per [facility] cardio Limb alert care status left arm Port-A-Cath in place has not used in a long time History of peritoneal dialysis per [facility] cardio records "...previous peritoneal dialysis catheters. At least 1 of the peritoneal dialysis catheters had to be removed because of peritonitis..." Palpitations AV fistula left upper arm (functioning), also one to left wrist, but does not function properly Chronic back pain GERD (gastroesophageal reflux disease) controlled, stable per pt Migraine Sleep apnea severe per [facility] records, no device currently > has apt soon to see about getting back on device Surgical History Hx of total thyroidectomy 06/28/22, [place]>3 1/2 of parathyroid removed, also removed nodules that were "non cancerous" History of surgery hx perm cath insertion & removal History of appendectomy H/O cystoscopy History of laparoscopy History of bilateral tubal ligation History of kidney transplant 08/28/2016 @ [facility] [place] (right side) functions at only 10%--d/t ESRD > follows with dr at [facility] History of cholecystectomy History of section x1 History of colonoscopy History of esophagogastroduodenoscopy (EGD) History of tooth extraction History of wisdom tooth extraction History of tonsillectomy and adenoidectomy Family History Grandmother (Paternal) Family history of diabetes mellitus Grandmother (Maternal) Family history of diabetes mellitus Family hx of colon cancer Mother Family hx of colon cancer Other No family history of adverse response to anesthesia Social History Smoking Status: Former smoker Tobacco Type: Cigarettes Second Hand Exposure: No; Do You Dip or Chew Tobacco: No; Hx Alcohol Use: No Hx Substance Use: No Preferred Language: [place] Communication Ability: Effective Benzene Washer Operator Required: No Beliefs That Will Affect Care: None marital status: Current Living Situation: Spouse Current Living Situation Comment: lives at home w spouse How many Children do You have: 1 Feels Safe at Home: Yes Assistive Devices: CPAP and Glasses Results & Data Vital Signs (Past 12 Hours) Vital Signs Temp Pulse Resp BP Pulse Ox O2 Del Method O2 Flow Rate 10/28/24 07:59 37.5 C 10/28/24 07:51 87 24 167/89 H 98 Oxymask 12 10/28/24 07:30 83 18 96 Oxymask 12 10/28/24 07:25 84 26 H 175/102 H 97 Oxymask 12 10/28/24 06:55 92 Oxymask 12 10/28/24 06:54 88 L Nasal Cannula, Oxymask 6 10/28/24 06:40 38.7 C H 91 H 26 H 188/98 H 92 Nasal Cannula 4 10/28/24 06:38 91 H Laboratory Results CBC, renal panel, Cardiac enzymes Diagnostic Findings CXr--CHF
--- NOTE | 2024-10-28 11:45 | Cardiology Consultation ---
Date of Consultation October 28, 2024 Assessment & Plan (1) Uremic encephalopathy: (2) Uremia: (3) Pulmonary edema due to fluid overload: (4) Elevated troponin: (5) NSTEMI (non-ST elevated myocardial infarction): (6) Uncontrolled hypertension: (7) Dyslipidemia, goal LDL below 70: Plan Markedly complex 68-year-old female admitted to [facility] on October 28, 2024 having initially presented to hemodialysis feeling unwell, following 3 missed hemodialysis sessions, with abdominal pain nausea, vomiting, diarrhea, uncontrolled hypertension. Evaluation in the ER notable for hyperkalemia and volume overload necessitating emergent hemodialysis. Cardiology consultation requested secondary to elevated troponin, type 2 NSTEMI. Patient with prior abnormal stress testing and multiple risk factors including hypertension, dyslipidemia, history of tobacco abuse, family history of ischemic disease, obesity, and inactivity. EKG without acute ST segment change. Resting echocardiography with preserved LV systolic function without regional wall motion abnormalities. History somewhat limited due to uremic encephalopathy though patient without active chest discomfort or dyspnea at present. Recommendations: * Medical management for now * Hold off on utilization of weight-based heparin given asymptomatic status, thrombocytopenia, anemia * Add aspirin 81 mg/day * Continue beta-darrell therapy * Add Nitro paste if needed for hypertension post emergent hemodialysis * Add atorvastatin at 20 mg/day (reduced dose given coadministration of Gleevec) Supervising Physician Co-Signing Physician Notes Attending attestation: Case reviewed with the advanced practitioner. I have personally performed a history and physical examination on the patient. I have reviewed the advanced practitioner's documentation on the date of service referenced in note, and I agree with, and take responsibility for the plan of care. I spent a total of 20 minutes coordinating, documenting, and providing care for this patient excluding time spent in the performance of separately billed services or time spent by another provider. Román Pressley, History of Present Illness Reason for Consultation: elevated troponins, type 2 OR Requesting Physician: Heriberto Ash, Dr. Mario Cook Attending Physician: Heriberto Jacksonist Mihir, Dr. Mario Cook History of Present Illness Patient is a 68-year-old female with end-stage renal disease on hemodialysis who initially presented to the dialysis clinic feeling poorly, having missed three recent hemodialysis sessions "because I was bull headed." Chart review reveals recent issues with abdominal pain, nausea, and vomiting. SpO2 was 81% on presentation to dialysis clinic. Patient transferred to the [facility] ER. Blood pressure 188/98 on presentation, receiving sublingual nitroglycerin with improvement in blood pressure as well as dyspnea per documentation. Laboratory work notable for marked hyperkalemia, receiving insulin, bicarb, albuterol, and placed on 12 L supplemental oxygen before being taken for emergent hemodialysis for hyperkalemia and volume management. High- sensitivity troponin elevated to 1507.7 pg/mL leading to cardiology consultation. EKG on presentation revealed sinus rhythm with incomplete right bundle branch block, anteroseptal T wave inversions similar to prior EKG dated June 05, 2024. Resting echocardiography today reveals preserved LV systolic function without regional wall motion abnormality. Patient denies chest pain, discomfort, dyspnea, palpitations, fevers, chills, dizziness, or syncope. Problem List: End-stage renal disease, failed transplant, hemodialysis at [facility]. Hyperthyroidism, Graves Disease. Prior positive molecular testing results on thyroid FNA with high probability of thyroid cancer status post thyroidectomy/parathyroidectomy Gastrointestinal stromal tumor, on Gleevec, followed by [facility] tology/Oncology. History of abnormal Lexiscan nuclear stress test. Chronic hypoxic respiratory failure, severe COPD Hypertension Dyslipidemia History of tobacco abuse Family history of ischemic heart disease Severe obstructive sleep apnea Family History: Father committed suicide at 42. He had premature coronary artery disease. Mother had colon cancer. Maternal grandmother with colon caner. Nephew with colon cancer at 34. Social History: Former smoker. No alcohol. No illegal drug use. Lives in [place], [place] Allergies Allergy/AdvReac Type Severity Reaction Status Date / Time levofloxacin AdvReac Severe C-DIFF Verified 07/30/24 14:24 Home Medications Medication Instructions Recorded Confirmed Type aspirin 81 mg chewable tablet 81 mg PO QAM 04/23/18 07/30/24 History magnesium oxide 400 mg PO QAM 03/08/22 07/30/24 History amlodipine 5 mg tablet 5 mg PO BID 07/21/22 07/30/24 History ondansetron HCl 8 mg tablet 8 mg PO TID PRN PRIOR TO 07/21/22 07/30/24 History CHEMOTHERAPY MEDS prochlorperazine maleate 10 mg 10 mg PO Q6H PRN NAUSEA/VOMITING 07/21/22 07/30/24 History tablet (Compazine) triamcinolone acetonide 0.1 % 1 applic topical BID PRN Rash 07/21/22 07/30/24 History topical cream vitamin B complex and vitamin C 1 cap PO DAILY 07/21/22 07/30/24 History no.20-folic acid 1 mg capsule (Lucas Caps) imatinib 100 mg tablet (Gleevec) 200 mg PO QPM 09/22/22 07/30/24 History calcium acetate(phosphat bind) 667 1,334 mg PO TID 10/20/22 07/30/24 History mg capsule carboxymethylcellulose sodium 1 drp ophthalmic (eye) 6XD PRN dry 03/09/23 07/30/24 Rx (Refresh Contacts eye drops) eye(s) #12 mL omeprazole 40 mg capsule,delayed 40 mg PO DAILY 06/02/23 07/30/24 History release oxycodone-acetaminophen 5 mg-325 1 tab PO Q8H PRN Pain 06/02/23 07/30/24 History mg tablet calcium carbonate 1,500 mg PO HS 07/16/24 07/30/24 History gabapentin 100 mg capsule 100 mg PO BID 07/16/24 07/30/24 History levothyroxine 200 mcg tablet 200 mcg PO DAILY #30 tabs 07/24/24 07/30/24 Rx calcitriol 0.5 mcg capsule 1 mcg (2 x 0.5 mcg) PO QAM #90 caps 07/30/24 07/30/24 Rx clonidine HCl 0.1 mg tablet 0.1 mg PO BID #90 tabs 08/29/24 08/29/24 Rx metoprolol tartrate 25 mg tablet 25 mg PO DAILY 08/29/24 08/29/24 History Patient History Medical History Mediastinal mass ongoing work-up with [facility] thoracic medicine and heme/onc Secondary hyperparathyroidism Neck pain h/o UE paresthesias; pt states neck pain and upper extremity abnormal symptoms>fully resolved Thyroid nodule s/p thyroidectomy COVID-19 hx-01/29/22-not hospitalized-symptoms fully resolved Pulmonary hypertension COPD (chronic obstructive pulmonary disease) stable per pt, no longer using supplemental oxygen-states home pulse ox readings are consistently 97% or greater-pt states provider is aware Abnormal stress test 01/2021 (reversible anterior and basal lateral defect consistent with ischemia vs soft tissue attenuation artifact) per [facility] cardio records, plan for medical management and consideration for DSE at 03/2021 appt; final determination per [facility] cardio is recommendation for diagnostic cardiac ca theterization not yet scheduled by patient; now advised risk > benefit per [facility] cardio Limb alert care status left arm Port-A-Cath in place has not used in a long time History of peritoneal dialysis per [facility] cardio records "...previous peritoneal dialysis catheters. At least 1 of the peritoneal dialysis catheters had to be removed because of peritonitis..." Palpitations AV fistula left upper arm (functioning), also one to left wrist, but does not function properly Chronic back pain GERD (gastroesophageal reflux disease) controlled, stable per pt Migraine Sleep apnea severe per [facility] records, no device currently > has apt soon to see about getting back on device Surgical History Hx of total thyroidectomy 06/28/22, [facility]>3 1/2 of parathyroid removed, also removed nodules that were "non cancerous" History of surgery hx perm cath insertion & removal History of appendectomy H/O cystoscopy History of laparoscopy History of bilateral tubal ligation History of kidney transplant 08/28/[place] [facility] [place]) functions at only 10%--d/t ESRD > follows with dr at [place] [facility] History of cholecystectomy History of section x1 History of colonoscopy History of esophagogastroduodenoscopy (EGD) History of tooth extraction History of wisdom tooth extraction History of tonsillectomy and adenoidectomy Family History Grandmother (Paternal) Family history of diabetes mellitus Grandmother (Maternal) Family history of diabetes mellitus Family hx of colon cancer Mother Family hx of colon cancer Other No family history of adverse response to anesthesia Social History Smoking Status: Former smoker Tobacco Type: Cigarettes Second Hand Exposure: No; Do You Dip or Chew Tobacco: No; Hx Alcohol Use: No Hx Substance Use: No Preferred Language: Tunisian Communication Ability: Effective Phonograph Needle Tip Maker Required: No Beliefs That Will Affect Care: None marital status: Current Living Situation: Spouse Current Living Situation Comment: lives at home w spouse How many Children do You have: 1 Feels Safe at Home: Yes Assistive Devices: CPAP and Glasses Review of Systems Review of Systems: A complete and accurate review of systems was unable to be obtained at the time of consultation Physical Exam Physical Exam: General: Alert to person and place. Tremulous HENT: Normocephalic. Atraumatic. Eyes: PER. Conjunctiva pink, sclera clear. Neck: No overt JVD. No carotid bruits. Heart: Regular, 90 bpm. Systolic murmur. Lungs: Diminished. Decreased. Clear anteriorly. Abdomen: +BS. Soft. Nontender. No masses or organomegaly. Extremities: Left upper extremity fistula. Mild bilateral lower extremity edema Limited neurological examination is without focal deficits. Pulses: Posterior tibial=2/4 bilaterally. Results & Data Vital Signs (Past 12 Hours) Vital Signs Temp Pulse Pulse Resp BP Pulse Ox O2 Del Method 10/28/24 11:30 84 182/104 H 10/28/24 11:00 82 185/102 H 10/28/24 10:30 81 190/98 H 10/28/24 10:00 83 176/89 H 10/28/24 09:30 81 161/90 H 10/28/24 09:00 85 137/100 10/28/24 08:40 36.9 C 89 10/28/24 07:59 37.5 C 10/28/24 07:51 87 24 167/89 H 98 Oxymask 10/28/24 07:30 83 18 96 Oxymask 10/28/24 07:25 84 26 H 175/102 H 97 Oxymask 10/28/24 06:55 92 Oxymask 10/28/24 06:54 88 L Nasal Cannula, Oxymask 10/28/24 06:40 38.7 C H 91 H 26 H 188/98 H 92 Nasal Cannula 10/28/24 06:38 91 H O2 Flow Rate 10/28/24 11:30 10/28/24 11:00 10/28/24 10:30 10/28/24 10:00 10/28/24 09:30 10/28/24 09:00 10/28/24 08:40 10/28/24 07:59 10/28/24 07:51 12 10/28/24 07:30 12 10/28/24 07:25 12 10/28/24 06:55 12 10/28/24 06:54 6 10/28/24 06:40 4 10/28/24 06:38 Laboratory Results Cardiac Enzymes 10/28/24 10/28/24 Range/Units 06:45 07:33 AST 22 (13-39) U/L Troponin I High Sens 1507.7 H* (0-14) pg/ml B-Natriuretic Peptide 2067 H (0-100) pg/ml Coagulation 10/28/24 10/28/24 Range/Units 06:45 07:33 PT Cancelled 12.8 H B-Natriuretic Peptide 2067 H (0-100) pg/ml Lipids 10/28/24 10/28/24 Range/Units 06:45 06:50 Triglycerides 101 Cancelled (0-150) mg/dl Cholesterol 148 Cancelled (0-200) mg/dl HDL Cholesterol 36 Cancelled mg/dl Cholesterol/HDL Ratio 4.1 Cancelled (0-5) CBC 10/28/24 10/28/24 Range/Units 06:45 07:33 WBC Cancelled 10.37 RBC Cancelled 2.79 L Hgb Cancelled 8.6 L Hct Cancelled 26.8 L Plt Count Cancelled 97 L Neut # (Auto) Cancelled 8.54 H Lymph # (Auto) Cancelled 0.57 L [place] # (Auto) Cancelled 1.08 H Eos # (Auto) Cancelled 0.09 Baso # (Auto) Cancelled 0.03 Comprehensive Metabolic Panel 10/28/24 Range/Units 06:45 Sodium 135 L (136-145) mmol/L Potassium 6.8 H* (3.5-5.1) mmol/L Chloride 92 L (98-107) mmol/L Carbon Dioxide 36 H (21-32) mmol/L BUN 48 H (6-23) mg/dl Creatinine 9.54 H* (0.6-1.2) mg/dl Glucose 98 (70-99(Fasting)) mg/dl Calcium 8.8 (8.6-10.3) mg/dl AST 22 (13-39) U/L ALT 11 (7-52) U/L Alkaline Phosphatase 42 (34-104) U/L Total Protein 5.8 L (6.0-8.3) gm/dl Albumin 3.6 (3.4-5.0) gm/dl Intake and Output 10/27/24 10/28/24 10/28/24 22:59 06:59 14:59 Intake Total 360 / 360 Output Total 0 / 0 Balance 360 / 360 Intake: IV 160 / 160 Acetaminophen 1,000 mg In 100 100 / 100 ml @ 400 mls/hr IV NOW STA Rx#: [id number] Calcium Gluconate 1,000 mg In 60 / 60 60 ml @ 240 mls/hr IV NOW STA Rx#:[id number] Other 200 / 200 Output: Urine 0 / 0 Other: Other Intake Source IV Weight 86.3 kg 86.3 kg Weight Measurement Method Built in Bedscale Built in Bedscale Patient Weight 10/29/24 06:59 Weight 86.3 kg Diagnostic Findings October 28, 2024 TTE Summary ([facility], Dr. Pressley): Mild concentric LVH. No regional wall motion abnormalities. Normal LV systolic function. EF 55 to 60%. Mild aortic valve sclerosis without significant stenosis. Mild mitral annular calcification. Mild mitral and tricuspid regurgitation. Estimated pulmonary artery systolic pressure 39 mmHg (mildly elevated). Grade 2 diastolic dysfunction, consistent with elevated left atrial pressure. Telemetry: Sinus/sinus tachycardia PG Care Time/CCT Total # of Minutes Spent Total Time Spent with Patient: I spent a total of 67 minutes on the date of service in preparation, delivery, and documentation of the care provided to this patient excluding any time spent in the performance of separately billed services. This visit was a split-shared visit with the substantive portion of the medical decision making performed by the supervising truss designer/billing provider (Dr. Pressley). Total time spent is greater than 50% in coordination of care (as documented) at patient's floor/unit and/or counseling patient Coding Level of Care Code 26971 IN/OBS CONSULT LVL 5,80M Diagnoses Uremic encephalopathy G93.49; N19 Uremia N19 Pulmonary edema due to fluid overload J81.1 Elevated troponin R79.89 NSTEMI (non-ST elevated myocardial infarction) I21.4 Uncontrolled hypertension I10 Dyslipidemia, goal LDL below 70 E78.5 Time Spent (min) 87 Comment 67 minutes by Jose Antonio Rivera PA-C, [address] Pressley
[2024-10-28] MEDS: EPOETIN ALFA 20,000 UNITS/ML VIAL IV STA (11:50)
[2024-10-28] MEDS: OPTIRAY 320 100ml IV ONE (13:14)
--- NOTE | 2024-10-28 13:41 | CT Scan Report ---
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 COMPARISON STUDY: CT of the abdomen and pelvis January 30, 2023. TECHNIQUE: Axial images of the abdomen were obtained following intravenous injection of 92 cc of Opti ray 320 IV. During the study, the IV infiltrated. A new IV could not be obtained. A dose lowering abdi hnique was utilized adhering to the principles of ALARA. FINDINGS: Contrast opacification is suboptimal given IV infiltration. This exam is also compromised b y motion artifact. Visualized portions of the lower chest demonstrate moderate cardiomegaly with smal l bilateral pleural effusions. Associated opacities favor atelectasis. There is interlobular septal t hickening. No pneumatosis, free air or portal venous gas is present. Moderate biliary ductal dilatati on is unchanged since CT of January 30, 2023 and likely related to cholecystectomy. Clustered radiod ensities measuring up to 5 mm may represent small calculi within the cystic duct stump. No definite c ommon bile duct calculi are identified by CT. Mild splenomegaly is unchanged. Both [place] kidneys are markedly atrophic. Right lower quadrant renal allograft is partially imaged but also atrophic. Right upper pole renal cyst is incidentally noted. There is no hydronephrosis. Unenhanced images of the ad renal glands and pancreas are unremarkable. Numerous small clustered retroperitoneal lymph nodes are unchanged. Caliber of visualized small and large bowel is normal. Wall thickening of the ascending co zaida is likely due to underdistention. Dilated left upper extremity vessels are partially imaged and l ikely related to an AV fistula. IMPRESSION: 1. Cardiomegaly with interstitial pulmonary edema and small bilateral pleural effusions. Associated b ibasilar opacities favor atelectasis although pneumonia could appear similar. 2. No convincing evidence for metastatic disease within the abdomen. Exam mildly compromised from a t echnical standpoint, as described above. 3. Stable clustered small retroperitoneal lymph nodes since CT of January 30, 2023. These are likely benign. Stable mild splenomegaly. 4. Moderate dilatation of the common bile duct, similar to prior exam. This is likely related to chol ecystectomy however correlation with liver function tests is recommended. Possible small clustered ca lculi within the cystic duct stump. 5. Wall thickening of the ascending colon, likely due to underdistention. A nonspecific colitis could appear similar although is considered less likely. ACT 112: Negative or not required by law. Electronically signed by: Larry Atkinson M.D. 10/28/2024 1:39 PM
[2024-10-28] MEDS: ACETAMINOPHEN 325 MG TAB PO PRN (14:08)
[2024-10-28] MEDS ORDERED: PHARMACIST DISCHARGE MED REC CONSULT PRN (14:55)
--- NOTE | 2024-10-28 14:55 | Pharmacy Report ---
Pharmacy PK ABX Note - Date of Service October 28, 2024 - Assessment and Plan Assessment * 68 year old F receiving pip/tazo and vancomycin for treatment of possible sepsis 2nd GI and/or pulm source. * PMH: immunocompromise on imatibib, ESRD on HD MWF (with recently missed sessions) * Pertinent microbiologic data includes: MRSA Nasal Swab ordered Plan Vancomycin * Loading dose: 1750 mg IV x 1 * Random level ordered for: 10/29 AM Pharmacy will continue to follow and will adjust dose/frequency as necessary. Thank you. Pharmacy has transitioned to AUC monitoring for vancomycin. AUC/ALLISON is the preferred PK/PD target and is associated with decreased risk of nephrotoxicity compared to traditional trough targets.
[2024-10-28] MEDS: OPTIRAY 320 125ml IV ONE (15:11)
--- NOTE | 2024-10-28 15:12 | Communication Note ---
Called to bedside by RN to evaluate concern for stroke. On evaluation, patient alert and orriented to self only. Glucose 102. On exam, NIHSS of 2, delta 1 (given [place] palsy albeit left facial droop worse) for aphasia. Mental status change was abrupt. Consideration for bleed, stroke, worsening uremia, less likely dissection. Code stroke called, stat labs ordered, attempted to call husb and x2 for updates, left message. Imaging ordered, results pending. Patient expressed to this provider, witnessed by dialysis pharmacy laboratory technician, wishes for DNRDNI. Date of Service: October 28, 2024
--- NOTE | 2024-10-28 15:30 | CT Scan Report ---
CT SCAN OF THE BRAIN WITHOUT IV CONTRAST CLINICAL HISTORY: Stroke alert. Confusion. Aphasia. COMPARISON STUDY: MRI of the brain March 15, 2023. Head CT performed earlier today. TECHNIQUE: Unenhanced axial CT scan of the brain was performed from the vertex to the skull base. A dose lowering technique was utilized adhering to the principles of ALARA. CT DOSE: 1729.92 mGy.cm FINDINGS: No acute intracranial hemorrhage, midline shift or mass effect is present. The ventricular system is normal. The basal cisterns are patent. There are no extra-axial collections. There are no f indings to suggest acute dural sinus thrombosis or acute territorial infarct. The bilateral extraocul ar muscles are enlarged, particularly the inferior rectus muscles. There is mild retrobulbar strandin g. The bilateral lacrimal glands are also prominent. There is probable proptosis IMPRESSION: 1. No acute intracranial findings. 2. Enlarged bilateral extraocular muscles with mild retrobulbar stranding and prominence of the bilat eral lacrimal glands. These findings are nonspecific. Primary differential considerations include Gra ves' disease and pseudotumor. ACT 112: Negative or not required by law. Electronically signed by: Larry Atkinson M.D. 10/28/2024 3:29 PM
--- NOTE | 2024-10-28 15:35 | CT Scan Report ---
CT ANGIOGRAPHY OF THE NECK WITH CONTRAST CLINICAL HISTORY: concern stroke COMPARISON STUDY: No previous studies for comparison. Technique: CT angiography of the carotid and vertebral arteries was obtained using Optiray and 3D rec onstruction on an independent workstation. NASCET criteria was utilized. Automated exposure control was utilized for the study. A dose lowering technique was utilized adhering to the principles of ALA RA. Findings: Right internal jugular [id number] is in place. The thyroid gland is surgically absent. N o cervical lymphadenopathy is present. Bilateral pleural effusions and findings suggestive of interst itial and alveolar pulmonary edema are better depicted on the chest CT which will be reported separat juan. The extraocular muscles are enlarged. There is mild retrobulbar stranding. The bilateral common carotid, cervical internal carotid and vertebral arteries are patent. There is mild plaque within the carotid bifurcations without stenosis. There is no aneurysm or dissection within the neck. CTA of th e head will be reported separately. IMPRESSION: 1. No stenosis or dissection within the bilateral common carotid, cervical internal carotid or verteb ral arteries. 2. Bilateral pleural effusions with interstitial and suspected alveolar pulmonary edema within the tolu ng apices better depicted on chest CT will be reported separately. ACT 112: Negative or not required by law. Electronically signed by: Larry Atkinson M.D. 10/28/2024 3:34 PM
--- NOTE | 2024-10-28 15:37 | CT Scan Report ---
CT angio head w con CLINICAL HISTORY: concern stroke. TECHNIQUE: Unenhanced axial CT scan of the brain is performed. Subsequently, following the IV adminis tration of 120 cc of Optiray, CT angiogram of the brain was performed from the skull base to the vert ex. Images are reviewed in the axial, sagittal, and coronal planes. 3-D MIPS images are created and a ssessed. IV contrast was administered without complication. All measurements were obtained according to NASCET criteria. A dose lowering technique was utilized adhering to the principles of ALARA. CT DOSE: 1730 COMPARISON STUDY: None. FINDINGS: The distal internal carotid and vertebral arteries are widely patent. Basilar artery is wid juan patent. Anterior, middle, and posterior cerebral arteries are patent bilaterally. No intracranial aneurysm seen. Cerebral venous sinuses opacify normally. IMPRESSION: No significant arterial narrowing or occlusion seen at the brain. ACT 112: Negative or not required by law. The above report was generated using voice recognition software. It may contain grammatical, syntax o r spelling errors. Electronically signed by: Liborio Short M.D. 10/28/2024 3:35 PM
[2024-10-28 15:40] LABS: Hematocrit (blood only) 28.5 % (37.0-47.0); Hemoglobin 9.2 g/dl (12.0-16.0); Immature Granulocytes # (auto) 0.05 K/uL (0.01-0.20); Immature Granulocytes % (auto) 0.7 %; Mean Corpuscular Hemoglobin 31.1 pg (25.0-34.0); Mean Corpuscular Volume 96.3 fL (80.0-100.0); Platelet Count 85 K/uL (130-400); RDW Standard Deviation 48.5 fL (36.4-46.3); Red Blood Count 2.96 M/uL (4.20-5.40); White Blood Count 6.73 K/ul (4.8-10.8)
--- NOTE | 2024-10-28 15:41 | CT Scan Report ---
CT ANGIOGRAM OF THE CHEST CLINICAL HISTORY: Evaluate for pulmonary embolus. Shortness of breath. COMPARISON STUDY: Chest radiograph performed earlier today. Chest CT September 22, 2022. TECHNIQUE: Following the IV administration of 119 cc of Optiray 320, CT angiogram of the chest was pe rformed from the upper abdomen to the thoracic inlet utilizing the pulmonary embolus protocol. Images are reviewed in the axial, sagittal, and coronal planes. 3-D MIPS images are created and assessed. I V contrast was administered without complication. A dose lowering technique was utilized adhering to the principles of ALARA. FINDINGS: No pulmonary emboli are identified although subsegmental pulmonary arteries are suboptimall y assessed due to respiratory motion. There is no thoracic aortic dissection. Mildly enlarged mediast inal and bilateral hilar lymph nodes are present. Index right paratracheal lymph node on image 325 me asures 2 x 1.5 cm. The heart is moderately enlarged. There is no pericardial effusion. There are smal l bilateral pleural effusions. Associated subpleural opacities favor atelectasis. Lungs are suboptima lly assessed due to respiratory motion. There is extensive interlobular septal thickening. Groundglas s and nodular opacities within the lungs are present. Central airways are patent. A right internal ju gular [id number]-Inmr is in place. Dilated left upper extremity vessels are likely related to an AV fis brenda. Moderate biliary ductal dilatation is likely related to prior cholecystectomy. IMPRESSION: 1. No pulmonary emboli identified although subsegmental pulmonary arteries suboptimally assessed due to respiratory motion. 2. Cardiomegaly small bilateral pleural effusions. Interstitial pulmonary edema. Nodular and groundgl ass opacities favor alveolar pulmonary edema however superimposed pneumonia could appear similar. 3. Mildly enlarged mediastinal and bilateral hilar lymph nodes. These are likely related to pulmonary edema. A follow-up chest CT could be obtained in 3 months to ensure resolution. ACT 112: Negative or not required by law. Electronically signed by: Larry Atkinson M.D. 10/28/2024 3:40 PM
[2024-10-28 15:42] LABS: iSTAT Art Bld Gas Base Excess 4.0 meg/L (-9-1.8); iSTAT Art Bld Gas pCO2 Correct 42 mmHg (35-46); iSTAT Art Bld Gas pH Corrected 7.439 (7.35-7.45); iSTAT Arterial Blood Gas pO2 C 104
[2024-10-28 15:58] LABS: Anion Gap 7.0 (3-11); Blood Urea Nitrogen 20.0 mg/dl (6-23); Calcium 8.6 mg/dl (8.6-10.3); Carbon Dioxide 32.0 mmol/L (21-32); Chloride 97.0 mmol/L (98-107); Creatinine Clr Calc Pharmacy 11.5 ml/min; Glucose 109.0 mg/dl (70-99(Fasting)); Magnesium 2.1 mg/dl (1.7-2.4); Potassium 4.7 mmol/L (3.5-5.1); Sodium 136.0 mmol/L (136-145)
[2024-10-28] MEDS ORDERED: SODIUM PHOSPHATE 3 MMOL/1 ML INFUSION IV STA (15:58)
--- NOTE | 2024-10-28 16:04 | Communication Note ---
Date of Service: October 28, 2024 Patient reassessed at the bedside at time of stroke alert. Telemetry reveals stable findings of sinus tachycardia in the low 100s. Bedside EKG revealed sinus tachycardia [address] segment unchanged compared to previous earlier today. Patient without any complaints of chest discomfort or shortness of breath during my assessment. Confusion noted. Troponin trended up slightly but I do not think her presentation is due to an acute coronary syndrome and believe the elevation in troponin is consistent with ongoing demand ischemia. Lactate has trended toward normal improvement. Continue clonidine, metoprolol, empiric antibiotics. Bryce Pressley, DO Cardiology
[2024-10-28] MEDS: METOPROLOL TARTRATE 25 MG TAB PO SCH (16:21)
[2024-10-28] MEDS: CALCITRIOL 0.25 MCG CAPSULE PO SCH (16:21)
[2024-10-28] MEDS: LEVOTHYROXINE SODIUM 200 MCG TABLET PO SCH (16:22)
[2024-10-28] MEDS: VANCOMYCIN HCL 1,750 MG in SODIUM CHLORIDE 0.9% 500 ML IV STA (16:22)
[2024-10-28] MEDS: PIPERACILLIN/TAZOBACTAM 4.5 GM/100 ML BAG IV ONE (16:22)
[2024-10-28] MEDS: ONDANSETRON INJ 2 MG/ML 2 ML VIAL IV PRN (16:30)
[2024-10-28] MEDS: SODIUM PHOSPHATE 15 MMOL in SODIUM CHLORIDE 0.9% 250 ML IV ONE (16:55)
[2024-10-28] MEDS: AZITHROMYCIN 250 MG TAB PO SCH (18:41)
[2024-10-28 20:38] LABS: Appearance Urine Clear (Clear); Glucose Urine UA Trace (Negative)
[2024-10-28 21:06] LABS: Epithelial Cell Urine >20 /hpf (0-2)
[2024-10-28] MEDS: PIPERACILLIN/TAZOBACTAM 4.5 GM/100 ML BAG IV SCH (23:33)
--- NOTE | 2024-10-29 02:02 | Magnetic Resonance Report ---
Exam(s): MRI HEAD Without Contrast EXAM: MR Head Without Intravenous Contrast CLINICAL HISTORY: Reason for exam: r/o stroke. TECHNIQUE: Magnetic resonance images of the head/brain without intravenous contrast in multiple planes. COMPARISON: Prior head CT from October 28. FINDINGS: Brain: Mild nonspecific white matter changes. The flow voids at the base the brain are intact. No mass. No hemorrhage. No acute infarct. Tiny foci of susceptibility within the bilateral frontal lobes, which are nonspecific. Ventricles: Unremarkable. No ventriculomegaly. Bones/joints: Unremarkable. No acute fracture. Sinuses: Unremarkable as visualized. No acute sinusitis. Mastoid air cells: Unremarkable as visualized. No mastoid effusion. Orbits: Bilateral lens replacements. Bilateral proptosis with enlarged extraocular muscles and proliferation of the femoral fat. IMPRESSION: No evidence of acute intracranial pathology. 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 Electronically signed by: Mona Graham MD 10/29/24 02:02 AM
[2024-10-29 07:32] LABS: Hematocrit (blood only) 27.2 % (37.0-47.0); Hemoglobin 8.5 g/dl (12.0-16.0); Immature Granulocytes # (auto) 0.03 K/uL (0.01-0.20); Immature Granulocytes % (auto) 0.5 %; Mean Corpuscular Hemoglobin 30.1 pg (25.0-34.0); Mean Corpuscular Volume 96.5 fL (80.0-100.0); Platelet Count 90 K/uL (130-400); RDW Standard Deviation 48.9 fL (36.4-46.3); Red Blood Count 2.82 M/uL (4.20-5.40); White Blood Count 6.18 K/ul (4.8-10.8)
[2024-10-29 07:52] LABS: Anion Gap 8.0 (3-11); Blood Urea Nitrogen 27.0 mg/dl (6-23); Calcium 8.1 mg/dl (8.6-10.3); Carbon Dioxide 29.0 mmol/L (21-32); Chloride 97.0 mmol/L (98-107); Creatinine Clr Calc Pharmacy 9.6 ml/min; Glucose 115.0 mg/dl (70-99(Fasting)); Magnesium 2.2 mg/dl (1.7-2.4); Potassium 5.2 mmol/L (3.5-5.1); Sodium 134.0 mmol/L (136-145)
--- NOTE | 2024-10-29 09:27 | Nephrology Progress Note ---
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 almost anuric sp not much wiggle room to miss dialysis. .ESRD (MWF) at [facility]. with her chronic hypoxic respiratory failure (on 2L chronically) due to severe COPD no wiggle room for CHF/fluid overload. In the ED, noted to have hyperkalemia of 7, received insulin/bicarb/albuterol, placed on 12 liters of oxygen. Taken for emergent Dialysis for K and volume management. Just had ECHO and looks decent so appears both high k and pulm edema related with missing dialysis. She said she will do better. extensive twitching as well as nausea she had yesterday is totally gone which does prove that it was related with uremia. will try to treat her uremia totally wit xtra dialysis. Will do dialysis again today for 3 hrs--3hrs, 2k and take 2-3 kil off. and then again tomorrow for 3 hrs. (2) Acute hyperkalemia: Multiple missed Dialysis session last week so still Has high K today. No major EKG changes currently. extra dialysis today. k still high at 5.2 Did remind her not to miss dialysis session to avoid future issues. (3) Pulmonary edema due to fluid overload: Again this is sec to Missing dialysis. ECHO looks fine so entirely due to mi ssing dialysis. with her underlying COPD she does not have much capacity to handle Fluid overload/CHF. Did remind her not to miss dialysis session to avoid future issu (4) Uremia: had some features like twitching, nausea as well as itching. but hard to tell now whether all from uremia or there are some other causes for this. may well do dialysis agin tomorrow and then wed to get her back to baseline S--she feels much better now. No SOB. BP was high even at end of dialysis yesterday but otherwise no issues reported. Then had stroke alert yesterday few hrs after dialysis over. CT head negative for stroke though. ROS--See HPI. unless stated otherwise 12 Systems reviewed and negative. Physical Exam Physical Exam: Gen: AAO x 3 Now normal speech. HEENT: Moist mucous membranes. Neck: Supple. No JVD Lungs: diffuse crackles b/l at bases CV: tachycardic, 1+ pitting edema bilaterally Abdomen: mild diffuse tenderness Results & Data Vital Signs (Past 12 Hours) Vital Signs Temp Pulse Pulse Resp BP Pulse Ox O2 Del Method 10/29/24 07:28 37.1 C 81 20 153/77 H 99 Room Air 10/29/24 04:29 36.6 C 85 16 163/81 H 98 Room Air 10/28/24 23:11 94 H 10/28/24 22:56 37.0 C 94 H 18 165/84 H 96 High Flow Nasal Cannula O2 Flow Rate 10/29/24 07:28 10/29/24 04:29 10/28/24 23:11 10/28/24 22:56 9
--- NOTE | 2024-10-29 11:06 | Cardiology Progress Note ---
Date of Service October 29, 2024 Assessment & Plan (1) Uremic encephalopathy: (2) Uremia: (3) Pulmonary edema due to fluid overload: (4) Elevated troponin: (5) NSTEMI (non-ST elevated myocardial infarction): (6) Uncontrolled hypertension: (7) Dyslipidemia, goal LDL below 70: Plan 10/28/24 Markedly complex 68-year-old female admitted to [facility] on October 28, 2024 having initially presented to hemodialysis feeling unwell, following 3 missed hemodialysis sessions, with abdominal pain nausea, vomiting, diarrhea, uncontrolled hypertension. Evaluation in the ER notable for hyperkalemia and volume overload necessitating emergent hemodialysis. Cardiology consultation requested secondary to elevated troponin, type 2 NSTEMI. Patient with prior abnormal stress testing and multiple risk factors including hypertension, dyslipidemia, history of tobacco abuse, family history of ischemic disease, obesity, and inactivity. EKG without acute ST segment change. Resting echocardiography with preserved LV systolic function without regional wall motion abnormalities. History somewhat limited due to uremic encephalopathy though patient without active chest discomfort or dyspnea at present. Recommendations: * Medical management for now * Hold off on utilization of weight-based heparin given asymptomatic status, thrombocytopenia, anemia * Add aspirin 81 mg/day * Continue beta-darrell therapy * Add Nitro paste if needed for hypertension post emergent hemodialysis * Add atorvastatin at 20 mg/day (reduced dose given coadministration of Gleevec) 10/29/24: Late yesterday stroke alert called for mental status changes. Head/neck and Brain MRI without acute findings. Symptoms improved this morning. No arrhythmias on telemetry. Blood cultures remain negative x2 (prelim) Patient remains hypoxic this morning requiring high flow NC with ongoing volume overload on exam, + rales on exam. HD planned for today. Fluid removal recommended as tolerated. Elevated troponin on admission consistent with demand ischemic event. Preserved LVEF on echo. No current symptoms of angina. Ongoing med management recommended Continue ASA 81 mg daily Continue beta darrell Continue amlodipine, hydralazine and clonidine. She remains hypertensive this morning, which will hopefully improve with dialysis and fluid removal. Would not treat aggressively. Could consider nitrates if needed No MAGGIE/ARB given hyperkalemia/ESRD Continue statin (added yesterday) Will follow. Case discussed with Dr. Pressley I spent a total of 40 minutes on the date of service in preparation, delivery, and documentation of the care provided to this patient, excluding any time spent in the performance of separately billed services. Rea Schmitz PA-C Department of Cardiology, [facility] This chart was completed in part utilizing Speech Voice Recognition Software. Grammatical errors, random word insertions, pronoun errors, and incomplete sentences are an occasional consequence of this system due to software limitations, ambient noise, and hardware issues. Any formal questions or c oncerns about the content, text, or information contained within the body of this dictation should be directly addressed to the provider for clarification. Admission and Anticipated Discharge Date Admission Date: October 28, 2024 Supervising Physician Co-Signing Physician Notes Attending attestation: Case reviewed with the advanced practitioner. I have personally performed a history and physical examination on the patient. I have reviewed the advanced practitioner's documentation on the date of service referenced in note, and I agree with, and take responsibility for the plan of care. Patient seen during hemodialysis. Patient appears much improved compared to yesterday. Diffuse tremors resolved. Blood cultures negative thus far. Nephrology input noted appreciated. Continue hemodialysis, antihypertensives, empiric antibiotics for now. Not on pharmacologic DVT prophylaxis given anemia, thrombocytopenia, dialysis. Patient ambulatory. I spent a total of 20 minutes coordinating, documenting, and providing care for this patient excluding time spent in the performance of separately billed services or time spent by another provider. Román Pressley, DO Subjective Patient resting in bed comfortably. Denies chest pain or SOB. Still requiring supplemental O2. Confusion improved from yesterday. Appears alert and oriented. No headaches or vision changes. Awaiting dialysis today. Review of Systems Review of Systems: All systems reviewed & are unremarkable except as noted in HPI & below Physical Exam Physical Exam: General: Alert to person and place. HENT: Normocephalic. Atraumatic. Eyes: PER. Conjunctiva pink, sclera clear. Neck: No overt JVD. No carotid bruits. Heart: Regular, 90 bpm. Systolic murmur. Lungs: Diminished. Decreased. Clear anteriorly. Abdomen: +BS. Soft. Nontender. No masses or organomegaly. Extremities: Left upper extremity fistula. Mild bilateral lower extremity edema Limited neurological examination is without focal deficits. Pulses: Posterior tibial=2/4 bilaterally. Constitutional: WD/WN, vitals as above + ill appearing; no acute distress Neck: trachea midline, no thyromegaly Respiratory: + not able to speak in complete sentence (Mild conversational dyspnea) Auscultation: + crackles and + rales Cardiovascular: Rate/Rhythm: regular rate and regular rhythm Heart Sounds: + murmur (systolic murmur throughout the precordium) Vessels: no JVD Extremities: no edema Gastrointestinal (Abdomen): normal bowel sounds, soft, nontender, no hepatosplenomegaly Skin: no rashes, warm and dry Results & Data Vital Signs (Past 12 Hours) Vital Signs Temp Pulse Pulse Resp BP Pulse Ox O2 Del Method 10/29/24 08:00 85 10/29/24 08:00 High Flow Nasal Cannula 10/29/24 07:28 37.1 C 81 20 153/77 H 99 Room Air 10/29/24 04:29 36.6 C 85 16 163/81 H 98 Room Air 10/28/24 23:11 94 H O2 Flow Rate 10/29/24 08:00 10/29/24 08:00 6 10/29/24 07:28 10/29/24 04:29 10/28/24 23:11 Laboratory Results Cardiac Enzymes 10/28/24 10/28/24 10/29/24 Range/Units 15:14 17:07 07:17 Troponin I High Sens 1954.9 H* D 1993.7 H* 727.0 H* D (0-14) pg/ml CBC 10/28/24 10/29/24 Range/Units 15:14 07:17 WBC 6.73 6.18 (4.8-10.8) K/ul RBC 2.96 L 2.82 L (4.20-5.40) M/uL Hgb 9.2 L 8.5 L (12.0-16.0) g/dl Hct 28.5 L 27.2 L (37.0-47.0) % Plt Count 85 L 90 L (130-400) K/uL Neut # (Auto) 5.51 4.73 (1.40-6.50) K/uL Lymph # (Auto) 0.38 L 0.40 L (1.20-3.40) K/uL [place] # (Auto) 0.70 H 0.92 H (0.11-0.59) K/uL Eos # (Auto) 0.06 0.07 (0.00-0.50) K/uL Baso # (Auto) 0.03 0.03 (0.00-0.20) K/uL Comprehensive Metabolic Panel 10/28/24 10/29/24 Range/Units 15:14 07:17 Sodium 136 134 L (136-145) mmol/L Potassium 4.7 D 5.2 H (3.5-5.1) mmol/L Chloride 97 L 97 L (98-107) mmol/L Carbon Dioxide 32 29 (21-32) mmol/L BUN 20 D 27 H (6-23) mg/dl Creatinine 5.23 H* D 6.35 H* D (0.6-1.2) mg/dl Glucose 109 H 115 H (70-99(Fasting)) mg/dl Calcium 8.6 8.1 L (8.6-10.3) mg/dl Intake and Output 10/28/24 10/29/24 10/29/24 22:59 06:59 14:59 Intake Total 2300 / 2760 100 / 2760 Output Total 80 / 180 100 / 180 Balance 2220 / 2580 0 / 2580 Intake: IV 2100 / 2360 100 / 2360 Calcium Gluconate 1,000 mg In 60 / 60 60 ml @ 240 mls/hr IV NOW STA Rx#:[id number] Piperacillin/Tazobactam 4.5 gm 100 / 200 100 / 200 In 100 ml @ 25 mls/hr IV Q12H [facility] Rx#:[id number] Sodium Bicarbonate 8.4% 150 meq 1150 / 1150 In Dextrose 5% 1,000 ml @ 290 mls/hr IV .[id number] STA Rx#: [id number] Sodium Phosphate 15 mmol In 255 / 255 Sodium Chloride 0.9% 250 ml @ 88 mls/hr IV ONE ONE Rx#: [id number] Vancomycin HCl 1,750 mg In 535 / 535 Sodium Chloride 0.9% 500 ml @ 200 mls/hr IV NOW STA Rx#: [id number] Oral 200 / 200 Output: Urine 80 / 180 100 / 180 Other: Weight 89.6 kg 89.4 kg Weight Measurement Method [facility] Diagnostic Findings Telemetry reviewed: NSR in the 80's. No arrhythmias Echo from 10/28 reviewed: Mild concentric LVH No wall motion abnormalities LVEF 55-60% Aortic valve sclerosis without stenosis Mild MAC Mild MR Mild TR Pulm artery systolic pressure is elevated at 39 mmHg Grade II diastolic dysfunction Chest CTA 10/28/24 14:37 IMPRESSION: 1. No pulmonary emboli identified although subsegmental pulmonary arteries suboptimally assessed due to respiratory motion. 2. Cardiomegaly small bilateral pleural effusions. Interstitial pulmonary edema. Nodular and groundglass opacities favor alveolar pulmonary edema however superimposed pneumonia could appear similar. 3. Mildly enlarged mediastinal and bilateral hilar lymph nodes. These are likely related to pulmonary edema. A follow-up chest CT could be obtained in 3 months to ensure resolution. Head CT 10/28/24 14:55 IMPRESSION: 1. No acute intracranial findings. 2. Enlarged bilateral extraocular muscles with mild retrobulbar stranding and prominence of the bilateral lacrimal glands. These findings are nonspecific. Primary differential considerations include Graves' disease and pseudotumor. Head CTA 10/28/24 14:56 IMPRESSION: No significant arterial narrowing or occlusion seen at the brain. Neck CTA 10/28/24 14:56 IMPRESSION: 1. No stenosis or dissection within the bilateral common carotid, cervical internal carotid or vertebral arteries. 2. Bilateral pleural effusions with interstitial and suspected alveolar pulmonary edema within the lung apices better depicted on chest CT will be reported separately. Brain MRI 10/28/24 17:49 IMPRESSION: No evidence of acute intracranial pathology. 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 Electronically signed by: Mona Graham MD 10/29/24 02:02 AM Medications Administered Current Inpatient Medications Acetaminophen (Acetaminophen 325 Mg Tab) 650 mg PO Q4H PRN PRN Reason: Pain or Fever Stop: 11/27/24 08:35 Last Admin: 10/29/24 05:36 Dose: 650 mg Amlodipine Besylate (Amlodipine Besylate 5 Mg Tab) 5 mg PO BID VU Stop: 11/27/24 20:59 Last Admin: 10/29/24 09:07 Dose: 5 mg Azithromycin (Azithromycin 250 Mg Tab) 500 mg PO QAM VU Stop: 11/02/24 17:59 Last Admin: 10/29/24 09:07 Dose: 500 mg Calcitriol (Calcitriol 0.25 Mcg Capsule) 1 mcg PO QAM VU Stop: 11/27/24 08:59 Last Admin: 10/29/24 09:08 Dose: 1 mcg Clonidine HCl (Clonidine Hcl 0.1 Mg Tab) 0.1 mg PO BID [facility] Stop: 11/27/24 08:59 Last Admin: 10/29/24 09:08 Dose: 0.1 mg Hydralazine HCl (Hydralazine Hcl 25 Mg Tab) 25 mg PO TID [facility] Stop: 11/27/24 20:59 Last Admin: 10/29/24 09:07 Dose: 25 mg Piperacillin Sod/Tazobactam Sod (Zosyn) 4.5 gm in 100 mls @ 25 mls/hr IV Q12H [facility]; Protocol Stop: 10/31/24 00:29 Last Infusion: 10/29/24 03:39 Dose: Infused Levothyroxine Sodium (Levothyroxine Sodium 200 Mcg Tablet) 200 mcg PO DAILYBB [facility] Stop: 11/27/24 08:59 Last Admin: 10/29/24 05:38 Dose: 200 mcg Metoprolol Tartrate (Metoprolol Tartrate 25 Mg Tab) 25 mg PO DAILY [facility] Stop: 11/27/24 08:59 Last Admin: 10/29/24 09:08 Dose: 25 mg Miscellaneous Information (Vancomycin Consult Active) 0 each N/A UD PRN PRN Reason: Consult Stop: 11/27/24 09:22 Miscellaneous Information (Pharmacist Discharge Med Rec Consult) 1 each N/A UD PRN PRN Reason: Consult Stop: 11/27/24 14:54 Ondansetron HCl (Ondansetron Inj 2 Mg/Ml 2 Ml Vial) 4 mg IV Q6H PRN PRN Reason: Nausea Stop: 11/27/24 08:35 Last Admin: 10/29/24 09:12 Dose: 4 mg Pantoprazole Sodium (Pantoprazole 40 Mg Tab) 40 mg PO DAILY [facility] Stop: 11/27/24 08:59 Last Admin: 10/29/24 09:08 Dose: 40 mg Polyethylene Glycol (Polyethylene (Miralax) 17 Gm Pack) 17 gm PO DAILY PRN PRN Reason: Constipation Stop: 11/27/24 08:35 PG Care Time/CCT Total # of Minutes Spent Total Time Spent with Patient: Total time spent is greater than 50% in coordination of care (as documented) at patient's floor/unit and/or counseling patient:40 Coding Level of Care Code 07562 SUB INP/OBS CARE 3/50MIN Diagnoses Uremic encephalopathy G93.49; N19 Uremia N19 Pulmonary edema due to fluid overload J81.1 Elevated troponin R79.89 NSTEMI (non-ST elevated myocardial infarction) I21.4 Uncontrolled hypertension I10 Dyslipidemia, goal LDL below 70 E78.5 Time Spent (min) 60 Comment 40 minutes by John Schmitz, [address] Pressley
--- NOTE | 2024-10-29 13:09 | Hospitalist Progress Note ---
Date of Service October 29, 2024 Assessment & Plan (1) Acute hyperkalemia: (2) Hypothyroidism: (3) ESRD on hemodialysis: (4) Gastrointestinal stromal tumor (GIST): (5) Essential hypertension: (6) Morbid obesity: (7) COPD (chronic obstructive pulmonary disease): (8) Uremia: Plan 68 yo female with pmhx of ESRD (MWF) c/b renal transplant failure, chronic hypoxic respiratory failure (on 2L chronically) 2/2 severe COPD, Graves disease, severe [place], 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 Uremic Encephalopathy Presented with extensive twitching and some confusion Patient missed dialysis prior to admission --MRI Brain: No evidence of acute intracranial pathology. --Head CTA:No significant arterial narrowing or occlusion seen at the brain. --Neck CTA:No stenosis or dissection within the bilateral common carotid, cervical internal carotid or vertebral arteries. -- Continue dialysis per nephrology Appreciate nephrology input Mental status seem to be back to baseline Continue to hold gabapentin for now Acute on Chronic Hypoxic Respiratory Failure Secondary to pulmonary edema due to missed dialysis Severe CHEYENNE Severe COPD Chronic oxygen dependency on 2 L at baseline Suspected superimposed pneumonia --Chest CTA:No pulmonary emboli identified although subsegmental pulmonary arteries suboptimally assessed due to respiratory motion. Cardiomegaly small bilateral pleural effusions. Interstitial pulmonary edema. Nodular and groundglass opacities favor alveolar pulmonary edema however superimposed pneumonia could appear similar. Mildly enlarged mediastinal and bilateral hilar lymph nodes. These are likely related to pulmonary edema. A follow-up chest CT could be obtained in 3 months to ensure resolution. -- Elevated procalcitonin --Nasal MRSA negative Continue empiric azithromycin, Zosyn Will need repeat CT chest in 3 months as outpatient Titrate oxygen to keep saturations 88 to 92% Continue CPAP at bedtime Continue dialysis to help with volume status Hyperkalemia Secondary to end-stage renal disease Continue dialysis Monitor potassium levels Chronic thrombocytopenia No acute bleeding issues Monitor CBC Sepsis Suspected UTI Urine culture grew alpha strep Blood cultures negative Empirically on antibiotics as above Type 2 MD -EKG personally reviewed, peaked T waves with slightly prolonged QRS in setting severe hyperkalemia -septal ST elevations with T wave inversions appear worse but relatively similar to prior --Echo as above -- Continue aspirin, metoprolol, statin Appreciate cardiology input 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 Exam mildly compromised from a technical standpoint, as described above. Stable clustered small retroperitoneal lymph nodes since CT of January 30, 2023. These are likely benign. Stable mild splenomegaly. Moderate dilatation of the common bile duct, similar to prior exam. This is likely related to cholecystectomy however correlation with liver function tests is recommended. Possible small clustered calculi within the cystic duct stump. Wall thickening of the ascending colon, likely due to underdistention. A nonspecific colitis could appear similar although is considered less likely. -- Tolerating current diet --Consider stool studies if develops diarrhea ESRD (MWF) Severe Uremia -missed 3 dialysis sessions in past week -Continue dialysis per nephrology Appreciate nephrology input Hypothyroidism Graves Disease -TSH WNL -s/p thyroidectomy and parathyroidectomy -continue levothyroxine Anemia of chronic disease Monitor CBC H/O Butt's palsy Per record DVT Px: SCDs for now Re: Anemia, thrombocytopenia CODE STATUS DNI DNR Admission and Anticipated Discharge Date Admission Date: October 28, 2024 Subjective Patient is seen and examined at bedside Twitching resolved States having some nausea but no vomiting today Evaluated by PT this morning Patient denies any chest pain, dyspnea, abdominal pain Mental status seem to be back to baseline Plan for hemodialysis today Review of Systems Review of Systems: All systems reviewed & are unremarkable except as noted in Subjective Physical Exam Physical Exam: Physical Exam: Vitals signs as noted above General Appearance:Overweight, no apparent distress Head: normocephalic, Atraumatic Eyes: normal inspection, EOMI Neck: supple, Trachea midline Respiratory/Chest: Normal breath sounds, Basal crackles, No accessory muscle use Cardiovascular: S1, S2, No murmur Abdomen/GI:Soft, Non tender, Bowel sounds present Extremities/Musculoskeletal:normal inspection, 1+ LE edema Neurologic/Psych:AAOX3, +facial droop, grossly no focal neurological deficits Skin: normal color, warm Results & Data Results & Data Vital Signs (Past 12 Hours) Vital Signs Temp Pulse Pulse Pulse Resp BP BP 10/29/24 12:30 73 148/72 H 10/29/24 12:00 72 158/80 H 10/29/24 11:30 76 162/82 H 10/29/24 11:00 72 131/75 10/29/24 10:48 36.9 C 71 121/66 10/29/24 10:33 36.9 C 76 10/29/24 08:00 85 10/29/24 08:00 10/29/24 07:28 37.1 C 81 20 153/77 H 10/29/24 04:29 36.6 C 85 16 163/81 H Pulse Ox O2 Del Method O2 Flow Rate 10/29/24 12:30 10/29/24 12:00 10/29/24 11:30 10/29/24 11:00 10/29/24 10:48 10/29/24 10:33 10/29/24 08:00 10/29/24 08:00 High Flow Nasal Cannula 6 10/29/24 07:28 99 Room Air 10/29/24 04:29 98 Room Air Laboratory Results Short CBC 10/28/24 10/29/24 Range/Units 15:14 07:17 WBC 6.73 6.18 (4.8-10.8) K/ul Hgb 9.2 L 8.5 L (12.0-16.0) g/dl Hct 28.5 L 27.2 L (37.0-47.0) % Plt Count 85 L 90 L (130-400) K/uL BMP 10/28/24 10/29/24 15:14 07:17 Sodium 136 134 L Potassium 4.7 D 5.2 H Chloride 97 L 97 L Carbon Dioxide 32 29 BUN 20 D 27 H Creatinine 5.23 H* D 6.35 H* D Glucose 109 H 115 H Calcium 8.6 8.1 L Urine 10/28/24 Range/Units 20:20 Urine Color Yellow Urine Appearance Clear (Clear) Urine pH >= 9.0 H (4.5-7.5) Ur Specific [place] 1.015 (1.000-1.030) Urine Protein 2+ H (Negative) Urine Glucose (UA) Trace H (Negative) (2) Hypothyroidism Hypothyroidism type: postoperative Qualified Code(s): E89.0 - Postprocedural hypothyroidism
[2024-10-29] MEDS: ASPIRIN 81 MG ECTAB PO SCH (14:32)
[2024-10-29] MEDS: ATORVASTATIN 20 MG TAB PO SCH (20:32)
[2024-10-30 06:11] LABS: Hematocrit (blood only) 23.8 % (37.0-47.0); Hemoglobin 7.7 g/dl (12.0-16.0); Immature Granulocytes # (auto) 0.02 K/uL (0.01-0.20); Immature Granulocytes % (auto) 0.4 %; Mean Corpuscular Hemoglobin 30.8 pg (25.0-34.0); Mean Corpuscular Volume 95.2 fL (80.0-100.0); Platelet Count 103 K/uL (130-400); RDW Standard Deviation 48.4 fL (36.4-46.3); Red Blood Count 2.50 M/uL (4.20-5.40); White Blood Count 4.86 K/ul (4.8-10.8)
[2024-10-30 06:48] LABS: Anion Gap 8.0 (3-11); Blood Urea Nitrogen 17.0 mg/dl (6-23); Calcium 8.1 mg/dl (8.6-10.3); Carbon Dioxide 29.0 mmol/L (21-32); Chloride 99.0 mmol/L (98-107); Creatinine Clr Calc Pharmacy 12.7 ml/min; Glucose 100.0 mg/dl (70-99(Fasting)); Potassium 4.4 mmol/L (3.5-5.1); Sodium 136.0 mmol/L (136-145)
[2024-10-30] MEDS ORDERED: SODIUM CHLORIDE 0.9% 1,000 ML IV PRN (07:00)
[2024-10-30 07:39] LABS: RBC Morphology Unremarkable
--- NOTE | 2024-10-30 08:42 | Cardiology Progress Note ---
Date of Service October 30, 2024 Assessment & Plan (1) Uremic encephalopathy: (2) Uremia: (3) Pulmonary edema due to fluid overload: (4) Elevated troponin: (5) NSTEMI (non-ST elevated myocardial infarction): (6) Uncontrolled hypertension: (7) Dyslipidemia, goal LDL below 70: Plan 10/30/2024 Assessment: Medically complex 68 year old female presented to the ER after presenting to her OP Hemodialysis center feeling poorly with abdominal pain, N/V/D and uncontrolled HTN. Patient had missed 3 prior HD treatments and was sent to the ER for further evaluation. Patient had a markedly elevated serum potassium and significant volume overload necessitating emergent hemodialysis treatment. Cardiology was consulted for an elevated troponin (Type II NSTEMI). Plan: -Patient is mentating appropriate today; however, flat affect. Stroke alert yesterday for acute mental status with negative CT and MRI. -Continued HD treatments as per nephrology management -Elevated troponin s/t demand ischemia. Echocardiogram shows preserved LVEF with no regional wall motion abnormalities. Patient was not started on Heparin therapy s/t anemia, and thrombocytopenia. -Ongoing medication management with Amlodipine, Hydralazine and clonidine for BP management, ASA 81mg, and beta darrell. Continue Statin -Avoid MAGGIE/ARB s/t hyperkalemia and ESRD. Case has been discussed with Dr. Pressley Further recommendations regarding plan of care as per his assessment. I spent a total of 30 minutes on the date of service in preparation, delivery, documentation of the care provided to the patient excluding any time spent in the performance of separately billed services. MALIA Hardy [facility] Admission and Anticipated Discharge Date Admission Date: October 28, 2024 Supervising Physician Co-Signing Physician Notes Attending attestation: Case reviewed with the advanced practitioner. I have personally performed a history and physical examination on the patient. I have reviewed the advanced practitioner's documentation on the date of service referenced in note, and I agree with, and take responsibility for the plan of care. Patient seen during hemodialysis.She states that she feels great. Blood cultures with no growth thus far. Given clinical improvement, course suggests presentation was related to uremia and volume overload/electrolyte abnormalities rather than infection. Not on pharmacologic DVT prophylaxis given anemia, thrombocytopenia, dialysis. Patient ambulatory. I spent a total of 20 minutes coordinating, documenting, and providing care for this patient excluding time spent in the performance of separately billed ser vices or time spent by another provider. Román Pressley DO Subjective 10/30/2024: Patient seen and examined in follow up today. Feeling well from a cardiac perspective. Offers no acute cardiac concerns. Denies chest pain, pressure, palpitations, No shortness of breath, pre-syncope, syncope or edema. She is currently receiving her HD treatment. Blood pressures are stable. Labs, vitals, diagnostics, telemetry and documentation reviewed. Telemetry reviewed showing SR 80's Review of Systems Review of Systems: All systems reviewed & are unremarkable except as noted in HPI & below Physical Exam Constitutional: well developed, well nourished and + overweight; no acute distress Neck: normal visual inspection and trachea midline Respiratory: normal respiratory effort; no respiratory distress, no labored breathing and no cough Auscultation: + diminished lung sounds (bilateral bases ); no crackles, no rales, no rhonchi and no wheezes Cardiovascular: Rate/Rhythm: regular rate and regular rhythm Heart Sounds: normal S1, normal S2 and + murmur (+1/6 systolic) Vessels: dorsalis pedis pulses present; no JVD Extremities: no edema Skin: no rashes, warm and dry Psychiatric: Orientation: alert and oriented x 3 Affect: + flat affect Results & Data Vital Signs (Past 12 Hours) Vital Signs Temp Pulse Pulse Resp BP Pulse Ox O2 Del Method 10/30/24 07:26 37.0 C 83 20 137/77 98 Nasal Cannula 10/30/24 03:32 36.8 C 82 18 157/81 H 96 High Flow Nasal Cannula 10/29/24 23:06 83 10/29/24 22:36 36.9 C 83 20 155/79 H 99 Nasal Cannula O2 Flow Rate 10/30/24 07:26 5 10/30/24 03:32 5 10/29/24 23:06 10/29/24 22:36 5 Laboratory Results CBC 10/30/24 Range/Units 05:52 WBC 4.86 (4.8-10.8) K/ul RBC 2.50 L (4.20-5.40) M/uL Hgb 7.7 L (12.0-16.0) g/dl Hct 23.8 L (37.0-47.0) % Plt Count 103 L (130-400) K/uL Neut # (Auto) 3.14 (1.40-6.50) K/uL Lymph # (Auto) 0.54 L (1.20-3.40) K/uL [place] # (Auto) 0.89 H (0.11-0.59) K/uL Eos # (Auto) 0.24 (0.00-0.50) K/uL Baso # (Auto) 0.03 (0.00-0.20) K/uL Comprehensive Metabolic Panel 10/30/24 Range/Units 05:52 Sodium 136 (136-145) mmol/L Potassium 4.4 (3.5-5.1) mmol/L Chloride 99 (98-107) mmol/L Carbon Dioxide 29 (21-32) mmol/L BUN 17 (6-23) mg/dl Creatinine 4.82 H* D (0.6-1.2) mg/dl Glucose 100 H (70-99(Fasting)) mg/dl Calcium 8.1 L (8.6-10.3) mg/dl Intake and Output 10/29/24 10/30/24 10/30/24 22:59 06:59 14:59 Intake Total 100 / 440 340 / 440 Balance 100 / 440 340 / 440 Intake: IV 100 / 200 100 / 200 Piperacillin/Tazobactam 4.5 gm 100 / 200 100 / 200 In 100 ml @ 25 mls/hr IV Q12H [facility] Rx#:[id number] Oral 240 / 240 Other: # Unmeasured Voids 1 Weight 89.8 kg 89.8 kg Weight Measurement Method Patient Lift Scale Patient Lift Scale Patient Weight 10/31/24 06:59 Weight 89.8 kg [place] [address] SUB INP/OBS CARE 3/50MIN Patient Type Established Diagnoses Uremic encephalopathy G93.49; N19 Uremia N19 Pulmonary edema due to fluid overload J81.1 Elevated troponin R79.89 NSTEMI (non-ST elevated myocardial infarction) I21.4 Uncontrolled hypertension I10 Dyslipidemia, goal LDL below 70 E78.5 Time Spent (min) 50 Comment 30 minutes by Cortes Klein, [address] Pressley
[2024-10-30] MEDS: EPOETIN ALFA 20,000 UNITS/ML VIAL IV ONE (11:19)
--- NOTE | 2024-10-30 13:46 | Hospitalist Progress Note ---
Date of Service October 30, 2024 Assessment & Plan (1) Acute hyperkalemia: (2) Hypothyroidism: (3) ESRD on hemodialysis: (4) Gastrointestinal stromal tumor (GIST): (5) Essential hypertension: (6) Morbid obesity: (7) COPD (chronic obstructive pulmonary disease): (8) Uremia: Plan 68 yo female with pmhx of ESRD (MWF) c/b renal transplant failure, chronic hypoxic respiratory failure (on 2L chronically) 2/2 severe COPD, Graves disease, severe [place], 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 Uremic Encephalopathy Presented with extensive twitching and some confusion Patient missed dialysis prior to admission --MRI Brain: No evidence of acute intracranial pathology. --Head CTA:No significant arterial narrowing or occlusion seen at the brain. --Neck CTA:No stenosis or dissection within the bilateral common carotid, cervical internal carotid or vertebral arteries. -- Continue dialysis per nephrology Appreciate nephrology input Mental status back to baseline Expect to discharge home when stable Acute on Chronic Hypoxic Respiratory Failure Secondary to pulmonary edema due to missed dialysis Severe [place] Severe COPD Chronic oxygen dependency on 2 L at baseline Suspected superimposed pneumonia --Chest CTA:No pulmonary emboli identified although subsegmental pulmonary arteries suboptimally assessed due to respiratory motion. Cardiomegaly small bilateral pleural effusions. Interstitial pulmonary edema. Nodular and groundglass opacities favor alveolar pulmonary edema however superimposed pneumonia could appear similar. Mildly enlarged mediastinal and bilateral hilar lymph nodes. These are likely related to pulmonary edema. A follow-up chest CT could be obtained in 3 months to ensure resolution. -- Elevated procalcitonin --Nasal MRSA negative Continue empiric azithromycin, Zosyn Will need repeat CT chest in 3 months as outpatient Titrate oxygen to keep saturations 88 to 92% Continue CPAP at bedtime Continue dialysis to help with volume status Will recheck procalcitonin, chest x-ray tomorrow Consider 2 step prior to discharge Hyperkalemia Secondary to end-stage renal disease Continue dialysis Monitor potassium levels Resolved Chronic thrombocytopenia No acute bleeding issues Monitor CBC Platelet count stable Sepsis Suspected UTI--less likely Urine culture grew alpha strep Blood cultures negative to date Empirically on antibiotics as above Type 2 NM -EKG personally reviewed, peaked T waves with slightly prolonged QRS in setting severe hyperkalemia -septal ST elevations with T wave inversions appear worse but relatively similar to prior --Echo as above -- Continue aspirin, metoprolol, statin Appreciate cardiology input 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 Exam mildly compromised from a technical standpoint, as described above. Stable clustered small retroperitoneal lymph nodes since CT of January 30, 2023. These are likely benign. Stable mild splenomegaly. Moderate dilatation of the common bile duct, similar to prior exam. This is likely related to cholecystectomy however correlation with liver function tests is recommended. Possible small clustered calculi within the cystic duct stump. Wall thickening of the ascending colon, likely due to underdistention. A nonspecific colitis could appear similar although is considered less likely. -- Tolerating current diet --Consider stool studies if develops diarrhea ESRD (MWF) Severe Uremia -missed 3 dialysis sessions in past week -Continue dialysis per nephrology Appreciate nephrology input Hypothyroidism Graves Disease -TSH WNL -s/p thyroidectomy and parathyroidectomy -continue levothyroxine Anemia of chronic disease Monitor CBC EPO per nephrology H/O Butt's palsy Per record DVT Px: SCDs for now Re: Anemia, thrombocytopenia CODE STATUS DNI DNR Disposition Expect to discharge home Admission and Anticipated Discharge Date Admission Date: October 28, 2024 Subjective Patient is seen and examined at bedside while having hemodialysis today States feeling well today Ambulating well in hallways with no issues per RN Patient is eager to get discharged Still requiring supplemental oxygen to maintain saturation Denies any chest pain, dyspnea, nausea, vomiting, abdominal pain Review of Systems Review of Systems: All systems reviewed & are unremarkable except as noted in Subjective Physical Exam Physical Exam: Physical Exam: Vitals signs as noted above General Appearance:Overweight, no apparent distress Head: normocephalic, Atraumatic Eyes: normal inspection, EOMI Neck: supple, Trachea midline Respiratory/Chest: Normal breath sounds, CTA, No accessory muscle use Cardiovascular: S1, S2, No murmur Abdomen/GI:Soft, Non tender, Bowel sounds present Extremities/Musculoskeletal:normal inspection, 1+ LE edema Neurologic/Psych:AAOX3, +facial droop, grossly no focal neurological deficits Skin: normal color, warm Results & Data Results & Data Vital Signs (Past 12 Hours) Vital Signs Temp Pulse Pulse Pulse Resp BP BP 10/30/24 10:30 60 128/60 10/30/24 10:00 60 109/61 10/30/24 09:30 60 151/80 H 10/30/24 09:00 80 148/75 H 10/30/24 08:58 36.8 C 76 151/76 H 10/30/24 08:47 36.8 C 74 10/30/24 08:00 74 10/30/24 08:00 10/30/24 07:26 37.0 C 83 20 137/77 10/30/24 03:32 36.8 C 82 18 157/81 H Pulse Ox O2 Del Method O2 Flow Rate 10/30/24 10:30 10/30/24 10:00 10/30/24 09:30 10/30/24 09:00 10/30/24 08:58 10/30/24 08:47 10/30/24 08:00 10/30/24 08:00 Nasal Cannula 4 10/30/24 07:26 98 Nasal Cannula 5 10/30/24 03:32 96 High Flow Nasal Cannula 5 Laboratory Results Short CBC 10/30/24 Range/Units 05:52 WBC 4.86 (4.8-10.8) K/ul Hgb 7.7 L (12.0-16.0) g/dl Hct 23.8 L (37.0-47.0) % Plt Count 103 L (130-400) K/uL BMP 10/30/24 05:52 Sodium 136 Potassium 4.4 Chloride 99 Carbon Dioxide 29 BUN 17 Creatinine 4.82 H* D Glucose 100 H Calcium 8.1 L (2) Hypothyroidism Hypothyroidism type: postoperative Qualified Code(s): E89.0 - Postprocedural hypothyroidism
[2024-10-30] MEDS: ADVANCED PROBIOTIC 625 MG CAPSULE PO SCH (18:10)
[2024-10-30] MEDS: GABAPENTIN 100 MG CAP PO SCH (20:49)
[2024-10-30] MEDS: CALCIUM ACETATE 667 MG CAP/TAB PO SCH (20:49)
[2024-10-31 06:49] LABS: Hematocrit (blood only) 26.4 % (37.0-47.0); Hemoglobin 8.5 g/dl (12.0-16.0); Immature Granulocytes # (auto) 0.05 K/uL (0.01-0.20); Immature Granulocytes % (auto) 0.9 %; Mean Corpuscular Hemoglobin 30.8 pg (25.0-34.0); Mean Corpuscular Volume 95.7 fL (80.0-100.0); Platelet Count 123 K/uL (130-400); RDW Standard Deviation 48.3 fL (36.4-46.3); Red Blood Count 2.76 M/uL (4.20-5.40); White Blood Count 5.50 K/ul (4.8-10.8)
[2024-10-31 07:13] LABS: Anion Gap 8.0 (3-11); Blood Urea Nitrogen 11.0 mg/dl (6-23); Calcium 8.8 mg/dl (8.6-10.3); Carbon Dioxide 32.0 mmol/L (21-32); Chloride 100.0 mmol/L (98-107); Creatinine Clr Calc Pharmacy 14.7 ml/min; Glucose 90.0 mg/dl (70-99(Fasting)); Potassium 3.8 mmol/L (3.5-5.1); Sodium 140.0 mmol/L (136-145)
--- NOTE | 2024-10-31 07:52 | XRay Report ---
EXAM: XR chest 1V portable CLINICAL HISTORY: Hypoxia TECHNIQUE: An X-ray image of the chest is obtained in AP projection. COMPARISON: 05:53:43 INTERACTIVE MEDIA DIRECTOR FINDINGS: Pulmonary Parenchyma: Right chemoport with tip at the cavoatrial junction. Left lower zone is obliterated cardiac shadow due to positional. Unchanged prominent bronchovascular markings in bilateral lungs likely pulmonary congestion. Unchanged obscured left CP angle and interval blunting of right CP angle likely small pleural effusion. Heart and Mediastinum: Cardiomegaly. No mediastinal widening or masses. No hilar or mediastinal lymphadenopathy. Bony Thorax: Bony thorax appears intact without fractures or deformities. Soft Tissues: Soft tissues overlying the chest wall are unremarkable. IMPRESSION: Right chemoport with tip at the cavoatrial junction. Left lower zone is obliterated cardiac shadow due to positional. Unchanged prominent bronchovascular markings in bilateral lungs likely pulmonary congestion. Unchanged obscured left CP angle and interval blunting of right CP angle likely small pleural effusion. Cardiomegaly. Electronically signed by Hunter Patton 10-31-2024 07:51 AM
[2024-10-31 08:04] VITALS: RESP 16
--- NOTE | 2024-10-31 09:31 | Nephrology Progress Note ---
Date of Service October 31, 2024 Assessment & Plan Admission and Anticipated Discharge Date Admission Date: October 28, 2024 Subjective Assessment & Plan (1) ESRD on hemodialysis: ESRD after failed renal transplant. almost anuric sp not much wiggle room to miss dialysis. .ESRD (MWF) at [facility]. with her chronic hypoxic respiratory failure (on 2L chronically) due to severe COPD no wiggle room for CHF/fluid overload. In the ED, noted to have hyperkalemia of 7, received insulin/bicarb/albuterol, placed on 12 liters of oxygen. Taken for emergent Dialysis for K and volume management. Just had ECHO and looks decent so appears both high k and pulm edema related with missing dialysis. She said she will do better. extensive twitching as well as nausea she had is totally gone which does prove that it was related with uremia. Will do dialysis again tomorrow for 4 hrs-- 2k and take 2-3 kil off if still inpatient. (2) Acute hyperkalemia: Multiple missed Dialysis session last week so still Has high K. No major EKG changes currently. extra dialysis today. k still high at 5.2 Did remind her not to miss dialysis session to avoid future issues. (3) Pulmonary edema due to fluid overload: Again this is sec to Missing dialysis. ECHO looks fine so entirely due to missing dialysis. with her underlying COPD she does not have much capacity to handle Fluid overload/CHF. Did remind her not to miss dialysis session to avoid future issu (4) Uremia: had some features like twitching, nausea as well as itching. but hard to tell now whether all from uremia or there are some other causes for this. may well do dialysis agin tomorrow and then wed to get her back to baseline S--she feels much better now. No SOB. BP was high even at end of dialysis yesterday but otherwise no issues reported. Then had stroke alert yesterday few hrs after dialysis over. CT head negative for stroke though. ROS--See HPI. unless stated otherwise 12 Systems reviewed and negative. Physical Exam Physical Exam: Gen: AAO x 3 Now normal speech. HEENT: Moist mucous membranes. Neck: Supple. No JVD Lungs: diffuse crackles b/l at bases CV: tachycardic, 1+ pitting edema bilaterally Abdomen: mild diffuse tenderness Results & Data Vital Signs (Past 12 Hours) Vital Signs Temp Pulse Pulse Resp BP Pulse Ox O2 Del Method 10/31/24 08:03 36.7 C 88 16 169/66 H 98 Nasal Cannula 10/31/24 02:56 36.8 C 78 17 137/69 98 High Flow Nasal Cannula 10/30/24 23:12 36.8 C 84 18 161/74 H 99 High Flow Nasal Cannula 10/30/24 23:11 90 O2 Flow Rate 10/31/24 08:03 4 10/31/24 02:56 4 10/30/24 23:12 4 10/30/24 23:11
--- NOTE | 2024-10-31 10:10 | Cardiology Progress Note ---
Date of Service October 31, 2024 Assessment & Plan (1) Uremic encephalopathy: (2) Uremia: (3) Pulmonary edema due to fluid overload: (4) Elevated troponin: (5) NSTEMI (non-ST elevated myocardial infarction): (6) Uncontrolled hypertension: (7) Dyslipidemia, goal LDL below 70: Plan 10/31/2024 Assessment: Medically complex 68 year old female presented to the ER after presenting to her OP Hemodialysis center feeling poorly with abdominal pain, N/V/D and uncontrolled HTN. Patient had missed 3 prior HD treatments and was sent to the ER for further evaluation. Patient had a markedly elevated serum potassium and significant volume overload necessitating emergent hemodialysis treatment. Cardiology was consulted for an elevated troponin (Type II NSTEMI). Echo with normal LVEF, no wall motion abnormalities. Symptoms upon admission likely due to uremic encephalopathy. MRI of the brain was negative. Negative blood cultures thus far. Plan: -Mentation improved. -Continued HD treatments as per nephrology management -She remains on supplemental O2 - currently 4L per chart. Try to wean today. Likely will need 2 step prior to discharge -Still with b/l rales on exam, mild volume overload. continue HD sessions per nephrology with fluid removal. -Elevated troponin due to demand ischemia. Echocardiogram shows preserved LVEF with no regional wall motion abnormalities. Patient was not started on Heparin therapy s/t anemia, and thrombocytopenia. No anginal complaints currently -Ongoing medication management with Amlodipine, Hydralazine and clonidine for BP management, ASA 81mg, and beta darrell. Continue Statin -Avoid MAGGIE/ARB s/t hyperkalemia and ESRD. -If BP remains hypertensive, consider titration of hydralazine vs changing metoprolol tartrate to carvedilol. -continue antibiotics for UTI. Negative blood cultures. Case has been discussed with Dr. Pressley Anticipate discharge in the next 1-2 days. I spent a total of 30 minutes on the date of service in preparation, delivery, documentation of the care provided to the patient excluding any time spent in the performance of separately billed services. Rea Schmitz PA-C [facility] Cardiology [facility] Admission and Anticipated Discharge Date Admission Date: October 28, 2024 Supervising Physician Co-Signing Physician Notes Attending attestation: Case reviewed with the advanced practitioner. I have personally performed a history and physical examination on the patient. I have reviewed the advanced practitioner's documentation on the date of service referenced in note, and I agree with, and take responsibility for the plan of care. Continues to make improvement. Procalcitonin obtained today was elevated at 12.10 NG per mL. Patient remains on empiric antibiotic therapy with Zosyn and azithromycin. Overall respiratory status, mental status much improved. Not on pharmacologic DVT prophylaxis given anemia, thrombocytopenia, dialysis. Patient ambulatory. I spent a total of 20 minutes coordinating, documenting, and providing care for this patient excluding time spent in the performance of separately billed services or time spent by another provider. Román Pressley, DO Subjective Patient resting in bed. Reports she "feels great". Denies chest pain. Reports no SOB, but remains on supplemental O2. Reports she does not use Supplemental O2 at home. No orthopnea, PND or edema. No palpitations. BP remains borderline high. Review of Systems Review of Systems: All systems reviewed & are unremarkable except as noted in HPI & below Physical Exam Constitutional: WD/WN, vitals as above + ill appearing; no acute distress Neck: trachea midline, no thyromegaly Respiratory: able to speak in complete sentences; no labored breathing Auscultation: + rales (bases b/l ) Cardiovascular: Rate/Rhythm: regular rate and regular rhythm Heart Sounds: + murmur (systolic murmur throughout the precordium) Vessels: no JVD Extremities: no edema Gastrointestinal (Abdomen): normal bowel sounds, soft, nontender, no hep atosplenomegaly Skin: no rashes, warm and dry Results & Data Vital Signs (Past 12 Hours) Vital Signs Temp Pulse Pulse Resp BP Pulse Ox O2 Del Method 10/31/24 08:03 36.7 C 88 16 169/66 H 98 Nasal Cannula 10/31/24 02:56 36.8 C 78 17 137/69 98 High Flow Nasal Cannula 10/30/24 23:12 36.8 C 84 18 161/74 H 99 High Flow Nasal Cannula 10/30/24 23:11 90 O2 Flow Rate 10/31/24 08:03 4 10/31/24 02:56 4 10/30/24 23:12 4 10/30/24 23:11 Laboratory Results CBC 10/31/24 Range/Units 06:13 WBC 5.50 (4.8-10.8) K/ul RBC 2.76 L (4.20-5.40) M/uL Hgb 8.5 L (12.0-16.0) g/dl Hct 26.4 L (37.0-47.0) % Plt Count 123 L (130-400) K/uL Neut # (Auto) 3.54 (1.40-6.50) K/uL Lymph # (Auto) 0.56 L (1.20-3.40) K/uL Ada # (Auto) 1.09 H (0.11-0.59) K/uL Eos # (Auto) 0.24 (0.00-0.50) K/uL Baso # (Auto) 0.02 (0.00-0.20) K/uL Comprehensive Metabolic Panel 10/31/24 Range/Units 06:13 Sodium 140 (136-145) mmol/L Potassium 3.8 (3.5-5.1) mmol/L Chloride 100 (98-107) mmol/L Carbon Dioxide 32 (21-32) mmol/L BUN 11 (6-23) mg/dl Creatinine 4.08 H D (0.6-1.2) mg/dl Glucose 90 (70-99(Fasting)) mg/dl Calcium 8.8 (8.6-10.3) mg/dl Intake and Output 10/30/24 10/31/24 10/31/24 22:59 06:59 14:59 Intake Total 300 / 670 250 / 670 Output Total 0 / 1 Balance 300 / 669 250 / 669 Intake: IV 100 / 200 100 / 200 Piperacillin/Tazobactam 4.5 gm 100 / 200 100 / 200 In 100 ml @ 25 mls/hr IV Q12H [facility] Rx#:[id number] Oral 200 / 470 150 / 470 Output: Urine 0 / 0 Other: Weight 85.7 kg Weight Measurement Method Built in [facility] Diagnostic Findings Telemetry reviewed: NSR in the 70-90's; No arrhythmias. Medications Administered Current Inpatient Medications Acetaminophen (Acetaminophen 325 Mg Tab) 650 mg PO Q4H PRN PRN Reason: Pain or Fever Stop: 11/27/24 08:35 Last Admin: 10/29/24 11:30 Dose: 650 mg Amlodipine Besylate (Amlodipine Besylate 5 Mg Tab) 5 mg PO BID [facility] Stop: 11/27/24 20:59 Last Admin: 10/31/24 09:10 Dose: 5 mg Aspirin (Aspirin 81 Mg Ectab) 81 mg PO QAM [facility] Stop: 11/28/24 13:14 Last Admin: 10/31/24 09:11 Dose: 81 mg Atorvastatin Calcium (Atorvastatin 20 Mg Tab) 20 mg PO HS [facility] Stop: 11/28/24 20:59 Last Admin: 10/30/24 20:50 Dose: 20 mg Azithromycin (Azithromycin 250 Mg Tab) 500 mg PO QAM [facility] Stop: 11/02/24 17:59 Last Admin: 10/31/24 09:11 Dose: 500 mg Calcitriol (Calcitriol 0.25 Mcg Capsule) 1 mcg PO QAM [facility] Stop: 11/27/24 08:59 Last Admin: 10/31/24 09:10 Dose: 1 mcg Calcium Acetate (Calcium Acetate 667 Mg Cap/Tab) 1,334 mg PO TIDM [facility] Stop: 11/29/24 20:14 Last Admin: 10/31/24 09:09 Dose: 1,334 mg Clonidine HCl (Clonidine Hcl 0.1 Mg Tab) 0.1 mg PO BID [facility] Stop: 11/27/24 08:59 Last Admin: 10/30/24 20:52 Dose: 0.1 mg Gabapentin (Gabapentin 100 Mg Cap) 100 mg PO BID [facility] Stop: 11/29/24 20:59 Last Admin: 10/31/24 09:09 Dose: 100 mg Hydralazine HCl (Hydralazine Hcl 25 Mg Tab) 25 mg PO TID [facility] Stop: 11/27/24 20:59 Last Admin: 10/31/24 09:10 Dose: 25 mg Piperacillin Sod/Tazobactam Sod (Zosyn) 4.5 gm in 100 mls @ 25 mls/hr IV Q12H [facility]; Protocol Stop: 11/03/24 00:29 Last Infusion: 10/31/24 04:20 Dose: Infused Lactobacillus Acidophilus (Advanced Probiotic 625 Mg Capsule) 1,250 mg PO DAILY [facility] Stop: 11/29/24 17:14 Last Admin: 10/31/24 09:09 Dose: 1,250 mg Levothyroxine Sodium (Levothyroxine Sodium 200 Mcg Tablet) 200 mcg PO DAILYBB [facility] Stop: 11/27/24 08:59 Last Admin: 10/31/24 06:40 Dose: 200 mcg Metoprolol Tartrate (Metoprolol Tartrate 25 Mg Tab) 25 mg PO DAILY [facility] Stop: 11/27/24 08:59 Last Admin: 10/31/24 09:11 Dose: 25 mg Ondansetron HCl (Ondansetron Inj 2 Mg/Ml 2 Ml Vial) 4 mg IV Q6H PRN PRN Reason: Nausea Stop: 11/27/24 08:35 Last Admin: 10/29/24 09:12 Dose: 4 mg Pantoprazole Sodium (Pantoprazole 40 Mg Tab) 40 mg PO DAILY [facility] Stop: 11/27/24 08:59 Last Admin: 10/31/24 09:10 Dose: 40 mg Polyethylene Glycol (Polyethylene (Miralax) 17 Gm Pack) 17 gm PO DAILY PRN PRN Reason: Constipation Stop: 11/27/24 08:35 PG Care Time/CCT Total # of Minutes Spent Total Time Spent with Patient: Total time spent is greater than 50% in coordination of care (as documented) at patient's floor/unit and/or counseling patient: 30 minutes Coding Level of Care Code 32182 SUB INP/OBS CARE 3/50MIN History Detailed Exam Detailed Medical Decision Making High Complexity Diagnoses Uremic encephalopathy G93.49; N19 Uremia N19 Pulmonary edema due to fluid overload J81.1 Elevated troponin R79.89 NSTEMI (non-ST elevated myocardial infarction) I21.4 Uncontrolled hypertension I10 Dyslipidemia, goal LDL below 70 E78.5 Time Spent (min) 50 Comment 30 minutes by John Schmitz, [address] Lopez
[2024-10-31 10:55] VITALS: BP 151/67; TEMP 97.9
--- NOTE | 2024-10-31 12:10 | Hospitalist Progress Note ---
Date of Service October 31, 2024 Assessment & Plan (1) Acute hyperkalemia: (2) Hypothyroidism: (3) ESRD on hemodialysis: (4) Gastrointestinal stromal tumor (GIST): (5) Essential hypertension: (6) Morbid obesity: (7) COPD (chronic obstructive pulmonary disease): (8) Uremia: Plan 68 yo female with pmhx of ESRD (MWF) c/b renal transplant failure, chronic hypoxic respiratory failure (on 2L chronically) 2/2 severe COPD, Graves disease, severe [place], 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 Uremic Encephalopathy Presented with extensive twitching and some confusion Patient missed dialysis prior to admission --MRI Brain: No evidence of acute intracranial pathology. --Head CTA:No significant arterial narrowing or occlusion seen at the brain. --Neck CTA:No stenosis or dissection within the bilateral common carotid, cervical internal carotid or vertebral arteries. -- Continue dialysis per nephrology Appreciate nephrology input Mental status back to baseline Plan to discharge home today Acute on Chronic Hypoxic Respiratory Failure Secondary to pulmonary edema due to missed dialysis Severe [place]EN[place] Severe COPD Chronic oxygen dependency on 2 L at baseline Suspected superimposed pneumonia --Chest CTA:No pulmonary emboli identified although subsegmental pulmonary arteries suboptimally assessed due to respiratory motion. Cardiomegaly small bilateral pleural effusions. Interstitial pulmonary edema. Nodular and groundglass opacities favor alveolar pulmonary edema however superimposed pneumonia could appear similar. Mildly enlarged mediastinal and bilateral hilar lymph nodes. These are likely related to pulmonary edema. A follow-up chest CT could be obtained in 3 months to ensure resolution. -- Elevated procalcitonin --Nasal MRSA negative Continue empiric azithromycin, Zosyn>> transition to oral antibiotics to complete the course Will need repeat CT chest in 3 months as outpatient Titrate oxygen to keep saturations 88 to 92% Continue CPAP at bedtime Continue dialysis to help with volume status Will check 2 step prior to discharge Hyperkalemia Secondary to end-stage renal disease Continue dialysis Monitor potassium levels Resolved Chronic thrombocytopenia No acute bleeding issues Monitor CBC Platelet count improving Sepsis Likely source pneumonia as above Blood cultures negative to date Empirically on antibiotics as above Type 2 SC -EKG personally reviewed, peaked T waves with slightly prolonged QRS in setting severe hyperkalemia -septal ST elevations with T wave inversions appear worse but relatively similar to prior --Echo as above -- Continue aspirin, metoprolol, statin Appreciate cardiology input 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 Exam mildly compromised from a technical standpoint, as described above. Stable clustered small retroperitoneal lymph nodes since CT of January 30, 2023. These are likely benign. Stable mild splenomegaly. Moderate dilatation of the common bile duct, similar to prior exam. This is likely related to cholecystectomy however correlation with liver function tests is recommended. Possible small clustered calculi within the cystic duct stump. Wall thickening of the ascending colon, likely due to underdistention. A nonspecific colitis could appear similar although is considered less likely. -- Tolerating current diet --Consider stool studies if develops diarrhea ESRD (MWF) Severe Uremia -missed 3 dialysis sessions in past week -Continue dialysis per nephrology Appreciate nephrology input Hypothyroidism Graves Disease -TSH WNL -s/p thyroidectomy and parathyroidectomy -continue levothyroxine Anemia of chronic disease Monitor CBC EPO per nephrology H/O Butt's palsy Per record DVT Px: SCDs for now Re: Anemia, thrombocytopenia CODE STATUS DNI DNR Disposition Home Admission and Anticipated Discharge Date Admission Date: October 28, 2024 Subjective Patient is seen and examined at bedside Offers no complaints Prefers to be discharged home today Discussed with nephrology today Denies any chest pain, dyspnea, nausea, vomiting, abdominal pain Review of Systems Review of Systems: All systems reviewed & are unremarkable except as noted in Subjective Physical Exam Physical Exam: Physical Exam: Vitals signs as noted above General Appearance:Overweight, no apparent distress Head: normocephalic, Atraumatic Eyes: normal inspection, EOMI Neck: supple, Trachea midline Respiratory/Chest: Normal breath sounds, minimal crackles, No accessory muscle use Cardiovascular: S1, S2, No murmur Abdomen/GI:Soft, Non tender, Bowel sounds present Extremities/Musculoskeletal:normal inspection, 1+ LE edema Neurologic/Psych:AAOX3, +facial droop(Chronic), grossly no focal neurological deficits Skin: normal color, warm Results & Data Results & Data Vital Signs (Past 12 Hours) Vital Signs Temp Pulse Pulse Resp BP Pulse Ox O2 Del Method 10/31/24 10:54 36.6 C 81 16 151/67 H 99 Nasal Cannula 10/31/24 08:03 36.7 C 88 16 169/66 H 98 Nasal Cannula 10/31/24 08:00 78 10/31/24 08:00 Nasal Cannula 10/31/24 02:56 36.8 C 78 17 137/69 98 High Flow Nasal Cannula O2 Flow Rate 10/31/24 10:54 4 10/31/24 08:03 4 10/31/24 08:00 10/31/24 08:00 10/31/24 02:56 4 Laboratory Results Short CBC 10/31/24 Range/Units 06:13 WBC 5.50 (4.8-10.8) K/ul Hgb 8.5 L (12.0-16.0) g/dl Hct 26.4 L (37.0-47.0) % Plt Count 123 L (130-400) K/uL BMP 10/31/24 06:13 Sodium 140 Potassium 3.8 Chloride 100 Carbon Dioxide 32 BUN 11 Creatinine 4.08 H D Glucose 90 Calcium 8.8 (2) Hypothyroidism Hypothyroidism type: postoperative Qualified Code(s): E89.0 - Postprocedural hypothyroidism
[2024-10-31 12:38] LABS: Cdiff Toxin B Gene (2yr or >) Negative Cdiff Gene (Neg)
--- NOTE | 2024-10-31 13:03 | Discharge Summary ---
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 Last admission on 03/2023 for dialysis fistula malfunction. In the ED, noted to have hyperkalemia of 7, received insulin/bicarb/albuterol, placed on 12 liters of oxygen, nephrology consulted, taken to emergent dialysis, admitted to medicine for further workup. Patient seen and examined at bedside in dialysis center. Patient doing poorly today. States she has missed 3 dialysis sessions in the past week for abdominal pain, nausea, vomiting. Normally MWF, states she tries to do her dialysis as much as possible. Per chart review, hx of missed dialysis sessions in past. Has not been following up with her cancer doctor. States she takes most of her medications as prescribed. No chest pain, has some SOB at this time. Has some nausea right now but no vomiting or diarrhea. No abdominal pain currently. Has frequent uncontrollable twitching per patient. Has been getting worse over the past few days. Has some itching as well. Has worsening fatigue and weakness as well. No tobacco use, no alcohol use, no drug use, DNRDNI discussed with patient and witnessed with RN. Other than dialysis no artificial life support. Admission Exam Per Admitting Provider Gen: A&O 2-3 frequent twitching, does not appear comfortable HEENT: NCAT, EOMI, not icteric. External ears normal. No rhinorrhea. Dry mucous membranes. Neck: Supple, full range of motion, no observable masses, No meningeal sign. Lungs: diffuse crackles throughout lung myers CV: tachycardic, 1+ pitting edema bilaterally Abdomen: mild diffuse tenderness to palpation MSK: very dry skin Skin: see above Neuro: slightly confused, frequent twitching in extremities, face Psych: appears slightly agitated Principal Diagnosis Uremic Encephalopathy Acute on Chronic Hypoxic Respiratory Failure Pulmonary edema Pneumonia Hyperkalemia Thrombocytopenia Sepsis Discharge Data Allergies Allergy/AdvReac Type Severity Reaction Status Date / Time levofloxacin AdvReac Severe C-DIFF Verified 07/30/24 14:24 Consultations 10/28/24 08:05 ED Decision to Admit Stat 10/28/24 08:16 Consult Nephrology Stat 10/28/24 09:17 Consult Cardiology Routine Procedures Performed Laboratory Results WBC 5.50 K/ul (4.8-10.8) 10/31/24 06:13 RBC 2.76 M/uL (4.20-5.40) L 10/31/24 06:13 Hgb 8.5 g/dl (12.0-16.0) L 10/31/24 06:13 POC Hgb 8.5 g/dl (12.0-16.0) L 10/28/24 15:28 Hct 26.4 % (37.0-47.0) L 10/31/24 06:13 POC Hct 25 % (37-47) L 10/28/24 15:28 MCV 95.7 fL (80.0-100.0) 10/31/24 06:13 MCH 30.8 pg (25.0-34.0) 10/31/24 06:13 MCHC 32.2 g/dL (32.0-36.0) 10/31/24 06:13 RDW Std Deviation 48.3 fL (36.4-46.3) H 10/31/24 06:13 RDW Coeff of [place]iah 14.1 % (11.5-14.5) 10/31/24 06:13 Plt Count 123 K/uL (130-400) L 10/31/24 06:13 MPV 9.9 fL (9.4-12.4) 10/31/24 06:13 Immature Gran % (Auto) 0.9 % 10/31/24 06:13 Neut % (Auto) 64.3 % 10/31/24 06:13 Lymph % (Auto) 10.2 % 10/31/24 06:13 Newton % (Auto) 19.8 % 10/31/24 06:13 Eos % (Auto) 4.4 % 10/31/24 06:13 Baso % (Auto) 0.4 % 10/31/24 06:13 Neut # (Auto) 3.54 K/uL (1.40-6.50) 10/31/24 06:13 Lymph # (Auto) 0.56 K/uL (1.20-3.40) L 10/31/24 06:13 Newton # (Auto) 1.09 K/uL (0.11-0.59) H 10/31/24 06:13 Eos # (Auto) 0.24 K/uL (0.00-0.50) 10/31/24 06:13 Baso # (Auto) 0.02 K/uL (0.00-0.20) 10/31/24 06:13 Immature Gran # (Auto) 0.05 K/uL (0.01-0.20) 10/31/24 06:13 Absolute Nucleated RBC 0.03 K/uL (0.00-0.12) 10/31/24 06:13 Nucleated RBC % (auto) 0.5 % 10/31/24 06:13 Neutrophils % (Manual) Cancelled 10/28/24 06:45 Band Neutrophils % Cancelled 10/28/24 06:45 Lymphocytes % (Manual) Cancelled 10/28/24 06:45 Prolymphocyte % Cancelled 10/28/24 06:45 Reactive Lymphs % (Man) Cancelled 10/28/24 06:45 Monocytes % (Manual) Cancelled 10/28/24 06:45 Eosinophils % (Manual) Cancelled 10/28/24 06:45 Basophils % (Manual) Cancelled 10/28/24 06:45 Metamyelocytes % (Man) Cancelled 10/28/24 06:45 Myelocytes % (Man) Cancelled 10/28/24 06:45 Promyelocytes % (Man) Cancelled 10/28/24 06:45 Blast Cells % (Manual) Cancelled 10/28/24 06:45 Plasma Cell % (Manual) Cancelled 10/28/24 06:45 Other Cells % Cancelled 10/28/24 06:45 Nucleated RBC % Cancelled 10/28/24 06:45 Neutrophils # (Manual) Cancelled 10/28/24 06:45 Band Neutrophils # Cancelled 10/28/24 06:45 Total Absolute Neuts Cancelled 10/28/24 06:45 Lymphocytes # (Manual) Cancelled 10/28/24 06:45 Prolymphocyte # Cancelled 10/28/24 06:45 Reactive Lymphs # Cancelled 10/28/24 06:45 Total Abs Lymphocytes Cancelled 10/28/24 06:45 Monocytes # (Manual) Cancelled 10/28/24 06:45 Eosinophils # (Manual) Cancelled 10/28/24 06:45 Basophils # (Manual) Cancelled 10/28/24 06:45 Metamyelocytes # (Man) Cancelled 10/28/24 06:45 Myelocytes # (Manual) Cancelled 10/28/24 06:45 Promyelocytes # (Man) Cancelled 10/28/24 06:45 Blast Cells # (Man) Cancelled 10/28/24 06:45 Plasma Cell # (Manual) Cancelled 10/28/24 06:45 Other Cells # Cancelled 10/28/24 06:45 Nucleated RBCs # (Man) Cancelled 10/28/24 06:45 Hypersegmented Neuts Cancelled 10/28/24 06:45 Hyposegmented Neuts Cancelled 10/28/24 06:45 Hypogranular Neuts Cancelled 10/28/24 06:45 Large Granular Lymphs Cancelled 10/28/24 06:45 # Lrg Granular Lymphs Cancelled 10/28/24 06:45 Hairy Cells Cancelled 10/28/24 06:45 Smudge Cells Cancelled 10/28/24 06:45 Toxic Granulation Cancelled 10/28/24 06:45 Toxic Vacuolation Cancelled 10/28/24 06:45 Dohle Bodies Cancelled 10/28/24 06:45 Shwetha Rods Cancelled 10/28/24 06:45 Platelet Estimate Decreased (Normal) L 10/28/24 07:33 Hypogranular Platelets Cancelled 10/28/24 06:45 Giant Platelets Cancelled 10/28/24 06:45 Platelet Satelliting Cancelled 10/28/24 06:45 RBC Morphology Unremarkable 10/30/24 05:52 Polychromasia Cancelled 10/28/24 06:45 Hypochromasia Cancelled 10/28/24 06:45 Poikilocytosis Cancelled 10/28/24 06:45 Basophilic Stippling Cancelled 10/28/24 06:45 Anisocytosis Cancelled 10/28/24 06:45 Microcytosis Cancelled 10/28/24 06:45 Macrocytosis Cancelled 10/28/24 06:45 Spherocytes Cancelled 10/28/24 06:45 Pappenheimer Bodies Cancelled 10/28/24 06:45 Sickle Cells Cancelled 10/28/24 06:45 Target Cells Cancelled 10/28/24 06:45 Tear Drop Cells Cancelled 10/28/24 06:45 Ovalocytes Cancelled 10/28/24 06:45 Stomatocytes Cancelled 10/28/24 06:45 Rosa-[place] Bodies Cancelled 10/28/24 06:45 Echinocytes Cancelled 10/28/24 06:45 Acanthocytes (Spur) Cancelled 10/28/24 06:45 Rouleaux Cancelled 10/28/24 06:45 RBC Agglutinates Cancelled 10/28/24 06:45 Schistocytes Cancelled 10/28/24 06:45 Sezary Cell Cancelled 10/28/24 06:45 PT 12.8 Seconds (9.0-12.0) H 10/28/24 07:33 INR 1.2 (0.9-1.1) H 10/28/24 07:33 Specimen Type Arterial 10/28/24 15:28 Sample Site R Radial 10/28/24 15:28 POC pH 7.45 (7.35-7.45) 10/28/24 15:28 POC pCO2 40 mmHg (35-46) 10/28/24 15:28 POC pO2 98 mmHg (80-95) H 10/28/24 15:28 POC HCO3 28 margaret/L (19-24) H 10/28/24 15:28 POC Total CO2 30 mmol/L (24-31) 10/28/24 15:28 POC Base Excess 4.0 margaret/L (-9-1.8) H 10/28/24 15:28 ABG pH (Temp Correct) 7.439 (7.35-7.45) 10/28/24 15:28 ABG pCO2 (Temp Corrct 42 mmHg (35-46) 10/28/24 15:28 POC ABG pO2 at Pt Temp 104 10/28/24 15:28 POC ABG O2 Sat 98.0 % (90-95) H 10/28/24 15:28 Joaquin Test Pass 10/28/24 15:28 O2 Delivery Device Cannula 10/28/24 15:28 POC Sodium 133 mmol/L (135-144) L 10/28/24 15:28 Sodium 140 mmol/L (136-145) 10/31/24 06:13 POC Potassium 4.5 mmol/L (3.3-5.0) 10/28/24 15:28 Potassium 3.8 mmol/L (3.5-5.1) 10/31/24 06:13 POC Chloride 93 mmol/L (101-112) L 10/28/24 07:02 Chloride 100 mmol/L (98-107) 10/31/24 06:13 Carbon Dioxide 32 mmol/L (21-32) 10/31/24 06:13 POC Total CO2 30 mmol/L (24-31) 10/28/24 07:02 Anion Gap 8 (3-11) 10/31/24 06:13 POC Anion Gap 14.0 mmol/L (16-25) L 10/28/24 07:02 POC BUN 42 mg/dl (7-18) H 10/28/24 07:02 BUN 11 mg/dl (6-23) 10/31/24 06:13 Creatinine 4.08 mg/dl (0.6-1.2) H D 10/31/24 06:13 POC Creatinine 9.6 mg/dl (0.6-1.3) H* 10/28/24 07:02 Est Cr Clr Drug Dosing 14.7 ml/min 10/31/24 06:13 eGFR 11.50 10/31/24 06:13 BUN/Creatinine Ratio 2.7 (10-20) L 10/31/24 06:13 Glucose 90 mg/dl (70-99(Fasting)) 10/31/24 06:13 POC Glucose 102 mg/dl (70-99) H 10/28/24 13:56 POC Glucose (other) 99 mg/dl (70-99) 10/28/24 07:02 Estimat Average Glucose 82 mg/dl 10/28/24 07:33 Hemoglobin A1c 4.5 % (4.5-5.6) 10/28/24 07:33 Lactate 0.9 mmol/L (0.4-2.0) 10/28/24 15:14 Calcium 8.8 mg/dl (8.6-10.3) 10/31/24 06:13 POC Ioniz Calcium Valeri 1.03 mmol/l (1.12-1.32) L 10/28/24 07:02 Ionized Calcium 1.05 mmol/L (1.12-1.32) L 10/29/24 08:04 Phosphorus 3.4 mg/dl (2.5-4.9) D 10/29/24 07:17 Magnesium 2.2 mg/dl (1.7-2.4) 10/29/24 07:17 Total Bilirubin 0.9 mg/dl (0.2-1.0) 10/28/24 06:45 AST 22 U/L (13-39) 10/28/24 06:45 ALT 11 U/L (7-52) 10/28/24 06:45 Alkaline Phosphatase 42 U/L (34-104) 10/28/24 06:45 Troponin I High Sens 727.0 pg/ml (0-14) H* D 10/29/24 07:17 B-Natriuretic Peptide 2067 pg/ml (0-100) H 10/28/24 07:33 Total Protein 5.8 gm/dl (6.0-8.3) L 10/28/24 06:45 Albumin 3.6 gm/dl (3.4-5.0) 10/28/24 06:45 Globulin 2.2 gm/dl (2.5-4.0) L 10/28/24 06:45 Albumin/Globulin Ratio 1.6 (0.9-2) 10/28/24 06:45 Triglycerides Cancelled 10/28/24 06:50 Cholesterol Cancelled 10/28/24 06:50 LDL Cholesterol, Calc Cancelled 10/28/24 06:50 VLDL Cholesterol, Calc Cancelled 10/28/24 06:50 HDL Cholesterol Cancelled 10/28/24 06:50 Cholesterol/HDL Ratio Cancelled 10/28/24 06:50 Lipase 9 U/L (11-82) L 10/28/24 06:45 Procalcitonin 12.10 ng/ml (0-0.5) H 10/31/24 06:13 TSH 1.218 uIu/ml (0.300-4.500) 10/28/24 06:45 Cortisol AM Sample 22.36 mcg/dl (6.2-22.6) 10/29/24 07:17 Urine Color Yellow 10/28/24 20:20 Urine Appearance Clear (Clear) 10/28/24 20:20 Urine pH >= 9.0 (4.5-7.5) H 10/28/24 20:20 Ur Specific [place] 1.015 (1.000-1.030) 10/28/24 20:20 Urine Protein 2+ (Negative) H 10/28/24 20:20 Urine Glucose (UA) Trace (Negative) H 10/28/24 20:20 Urine Ketones Trace (Negative) H 10/28/24 20:20 Urine Blood Trace-lysed (Negative) H 10/28/24 20:20 Urine Nitrite Negative (Negative) 10/28/24 20:20 Urine Bilirubin Negative (Negative) 10/28/24 20:20 Urine Urobilinogen Negative (Negative) 10/28/24 20:20 Ur Leukocyte Esterase 1+ (Negative) H 10/28/24 20:20 Urine RBC 0-2 /hpf (0-2) 10/28/24 20:20 Urine WBC 6-10 /hpf (0-5) H 10/28/24 20:20 Ur Epithelial Cells >20 /hpf (0-2) H 10/28/24 20:20 Urine Bacteria None Seen (None Seen) 10/28/24 20:20 Urine Comment 10/28/24 20:20 Nasal Screen MRSA (PCR) Negative (Negative) 10/28/24 15:33 Stl C. diff Tox B Gene Negative Cdiff Gene (Neg) 10/31/24 11:15 Stl C. diff [id number]-[id number] NEGATIVE 10/31/24 11:15 Random Vancomycin 18.9 mcg/ml (10-20) 10/29/24 07:17 Adenovirus (PCR) Not Detected (NotDetected) 10/28/24 06:46 B. pertussis DNA (PCR) Not Detected (NotDetected) 10/28/24 06:46 B.parapertussis DNA PCR Not Detected (NotDetected) 10/28/24 06:46 C. pneumoniae DNA (PCR) Not Detected (NotDetected) 10/28/24 06:46 Coronavirus OC43 (PCR) Not Detected (NotDetected) 10/28/24 06:46 Coronavirus HKU1 (PCR) Not Detected (NotDetected) 10/28/24 06:46 Coronavirus 229E (PCR) Not Detected (NotDetected) 10/28/24 06:46 SARS-CoV-2 (PCR) Not Detected (NotDetected) 10/28/24 06:46 Coronavirus NL63 (PCR) Not Detected (NotDetected) 10/28/24 06:46 Hep Bs Antigen Negative (Negative) 10/28/24 07:33 Hep Bs Antibody Immune 10/28/24 07:33 Hep Bs Antibody, Quant 17.40 mIU/mL (>or=10mIU/mL Immune) 10/28/24 07:33 Human Metapneumovir PCR Not Detected (NotDetected) 10/28/24 06:46 Influenza Type A (PCR) Not Detected (NotDetected) 10/28/24 06:46 Influenza Type B (PCR) Not Detected (NotDetected) 10/28/24 06:46 M. pneumoniae (PCR) Not Detected (NotDetected) 10/28/24 06:46 Parainfluenza 1 (PCR) Not Detected (NotDetected) 10/28/24 06:46 Parainfluenza 2 (PCR) Not Detected (NotDetected) 10/28/24 06:46 Parainfluenza 3 (PCR) Not Detected (NotDetected) 10/28/24 06:46 Parainfluenza 4 (PCR) Not Detected (NotDetected) 10/28/24 06:46 RSV (PCR) Not Detected (NotDetected) 10/28/24 06:46 Entero/Rhino (PCR) Not Detected (NotDetected) 10/28/24 06:46 Blood Parasites ID Cancelled 10/28/24 06:[address] 10/28/24 09:20 CT OF THE ABDOMEN WITH IV CONTRAST CLINICAL HISTORY: Concern for GIST tumor metastasis, infection. COMPARISON STUDY: CT of the abdomen and pelvis January 30, 2023. TECHNIQUE: Axial images of the abdomen were obtained following intravenous injection of 92 cc of Optiray 320 IV. During the study, the IV infiltrated. A new IV could not be obtained. A dose lowering technique was utilized adhering to the principles of ALARA. FINDINGS: Contrast opacification is suboptimal given IV infiltration. This exam is also compromised by motion artifact. Visualized portions of the lower chest demonstrate moderate cardiomegaly with small bilateral pleural effusions. Associated opacities favor atelectasis. There is interlobular septal thickening. No pneumatosis, free air or portal venous gas is present. Moderate biliary ductal dilatation is unchanged since CT of January 30, 2023 and likely related to cholecystectomy. Clustered radiodensities measuring up to 5 mm may represent small calculi within the cystic duct stump. No definite common bile duct calculi are identified by CT. Mild splenomegaly is unchanged. Both council kidneys are markedly atrophic. Right lower quadrant renal allograft is partially imaged but also atrophic. Right upper pole renal cyst is incidentally noted. There is no hydronephrosis. Unenhanced images of the adrenal glands and pancreas are unremarkable. Numerous small clustered retroperitoneal lymph nodes are unchanged. Caliber of visualized small and large bowel is normal. Wall thickening of the ascending colon is likely due to underdistention. Dilated left upper extremity vessels are partially imaged and likely related to an AV fistula. IMPRESSION: 1. Cardiomegaly with interstitial pulmonary edema and small bilateral pleural effusions. Associated bibasilar opacities favor atelectasis although pneumonia could appear similar. 2. No convincing evidence for metastatic disease within the abdomen. Exam mildly compromised from a technical standpoint, as described above. 3. Stable clustered small retroperitoneal lymph nodes since CT of January 30, 2023. These are likely benign. Stable mild splenomegaly. 4. Moderate dilatation of the common bile duct, similar to prior exam. This is likely related to cholecystectomy however correlation with liver function tests is recommended. Possible small clustered calculi within the cystic duct stump. 5. Wall thickening of the ascending colon, likely due to underdistention. A nonspecific colitis could appear similar although is considered less likely. ACT 112: Negative or not required by law. Electronically signed by: Larry Atkinson M.D. 10/28/2024 1:39 PM Chest CTA 10/28/24 14:37 CT ANGIOGRAM OF THE CHEST CLINICAL HISTORY: Evaluate for pulmonary embolus. Shortness of breath. COMPARISON STUDY: Chest radiograph performed earlier today. Chest CT September 22, 2022. TECHNIQUE: Following the IV administration of 119 cc of Optiray 320, CT angiogram of the chest was performed from the upper abdomen to the thoracic inlet utilizing the pulmonary embolus protocol. Images are reviewed in the axial, sagittal, and coronal planes. 3-D MIPS images are created and assessed. IV contrast was administered without complication. A dose lowering technique was utilized adhering to the principles of ALARA. FINDINGS: No pulmonary emboli are identified although subsegmental pulmonary arteries are suboptimally assessed due to respiratory motion. There is no thoracic aortic dissection. Mildly enlarged mediastinal and bilateral hilar lymph nodes are present. Index right paratracheal lymph node on image 325 measures 2 x 1.5 cm. The heart is moderately enlarged. There is no pericardial effusion. There are small bilateral pleural effusions. Associated subpleural opacities favor atelectasis. Lungs are suboptimally assessed due to respiratory motion. There is extensive interlobular septal thickening. Groundglass and nodular opacities within the lungs are present. Central airways are patent. A right internal jugular Osildg-w-Cver is in place. Dilated left upper extremity vessels are likely related to an AV fistula. Moderate biliary ductal dilatation is likely related to prior cholecystectomy. IMPRESSION: 1. No pulmonary emboli identified although subsegmental pulmonary arteries suboptimally assessed due to respiratory motion. 2. Cardiomegaly small bilateral pleural effusions. Interstitial pulmonary edema. Nodular and groundglass opacities favor alveolar pulmonary edema however superimposed pneumonia could appear similar. 3. Mildly enlarged mediastinal and bilateral hilar lymph nodes. These are likely related to pulmonary edema. A follow-up chest CT could be obtained in 3 months to ensure resolution. ACT 112: Negative or not required by law. Electronically signed by: Larry Atkinson M.D. 10/28/2024 3:[address] 10/28/24 14:55 CT SCAN OF THE BRAIN WITHOUT IV CONTRAST CLINICAL HISTORY: Stroke alert. Confusion. Aphasia. COMPARISON STUDY: MRI of the brain March 15, 2023. Head CT performed earlier today. TECHNIQUE: Unenhanced axial CT scan of the brain was performed from the vertex to the skull base. A dose lowering technique was utilized adhering to the principles of ALARA. CT DOSE: 1729.92 mGy.cm FINDINGS: No acute intracranial hemorrhage, midline shift or mass effect is present. The ventricular system is normal. The basal cisterns are patent. There are no extra-axial collections. There are no findings to suggest acute dural sinus thrombosis or acute territorial infarct. The bilateral extraocular muscles are enlarged, particularly the inferior rectus muscles. There is mild retrobulbar stranding. The bilateral lacrimal glands are also prominent. There is probable proptosis IMPRESSION: 1. No acute intracranial findings. 2. Enlarged bilateral extraocular muscles with mild retrobulbar stranding and prominence of the bilateral lacrimal glands. These findings are nonspecific. Primary differential considerations include Graves' disease and pseudotumor. ACT 112: Negative or not required by law. Electronically signed by: Larry Atkinson M.D. 10/28/2024 3:29 PM Head CTA 10/28/24 14:56 CT angio head w con CLINICAL HISTORY: concern stroke. TECHNIQUE: Unenhanced axial CT scan of the brain is performed. Subsequently, following the IV administration of 120 cc of Optiray, CT angiogram of the brain was performed from the skull base to the vertex. Images are reviewed in the axial, sagittal, and coronal planes. 3-D MIPS images are created and assessed. IV contrast was administered without complication. All measurements were obtained according to NASCET criteria. A dose lowering technique was utilized adhering to the principles of ALARA. CT DOSE: 1730 COMPARISON STUDY: None. FINDINGS: The distal internal carotid and vertebral arteries are widely patent. Basilar artery is widely patent. Anterior, middle, and posterior cerebral arteries are patent bilaterally. No intracranial aneurysm seen. Cerebral venous sinuses opacify normally. IMPRESSION: No significant arterial narrowing or occlusion seen at the brain. ACT 112: Negative or not required by law. The above report was generated using voice recognition software. It may contain grammatical, syntax or spelling errors. Electronically signed by: Liborio Short M.D. 10/28/2024 3:35 PM Neck CTA 10/28/24 14:56 CT ANGIOGRAPHY OF THE NECK WITH CONTRAST CLINICAL HISTORY: concern stroke COMPARISON STUDY: No previous studies for comparison. Technique: CT angiography of the carotid and vertebral arteries was obtained using Optiray and 3D reconstruction on an independent workstation. NASCET criteria was utilized. Automated exposure control was utilized for the study. A dose lowering technique was utilized adhering to the principles of ALARA. Findings: Right internal jugular Piagwc-a-Zgjg is in place. The thyroid gland is surgically absent. No cervical lymphadenopathy is present. Bilateral pleural effusions and findings suggestive of interstitial and alveolar pulmonary edema are better depicted on the chest CT which will be reported separately. The extraocular muscles are enlarged. There is mild retrobulbar stranding. The bilateral common carotid, cervical internal carotid and vertebral arteries are patent. There is mild plaque within the carotid bifurcations without stenosis. There is no aneurysm or dissection within the neck. CTA of the head will be reported separately. IMPRESSION: 1. No stenosis or dissection within the bilateral common carotid, cervical internal carotid or vertebral arteries. 2. Bilateral pleural effusions with interstitial and suspected alveolar pulmonary edema within the lung apices better depicted on chest CT will be reported separately. ACT 112: Negative or not required by law. Electronically signed by: Larry Atkinson M.D. 10/28/2024 3:34 PM Brain MRI 10/28/24 17:49 Exam(s): MRI HEAD Without Contrast EXAM: MR Head Without Intravenous Contrast CLINICAL HISTORY: Reason for exam: r/o stroke. TECHNIQUE: Magnetic resonance images of the head/brain without intravenous contrast in multiple planes. COMPARISON: Prior head CT from October 28. FINDINGS: Brain: Mild nonspecific white matter changes. The flow voids at the base the brain are intact. No mass. No hemorrhage. No acute infarct. Tiny foci of susceptibility within the bilateral frontal lobes, which are nonspecific. Ventricles: Unremarkable. No ventriculomegaly. Bones/joints: Unremarkable. No acute fracture. Sinuses: Unremarkable as visualized. No acute sinusitis. Mastoid air cells: Unremarkable as visualized. No mastoid effusion. Orbits: Bilateral lens replacements. Bilateral proptosis with enlarged extraocular muscles and proliferation of the femoral fat. IMPRESSION: No evidence of acute intracranial pathology. 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 Electronically signed by: Mona Graham MD 10/29/24 02:02 AM Chest X-Ray 10/31/24 07:00 EXAM: XR chest 1V portable CLINICAL HISTORY: Hypoxia TECHNIQUE: An X-ray image of the chest is obtained in AP projection. COMPARISON: 05:53:43 OTR [employer] FINDINGS: Pulmonary Parenchyma: Right chemoport with tip at the cavoatrial junction. Left lower zone is obliterated cardiac shadow due to positional. Unchanged prominent bronchovascular markings in bilateral lungs likely pulmonary congestion. Unchanged obscured left CP angle and interval blunting of right CP angle likely small pleural effusion. Heart and Mediastinum: Cardiomegaly. No mediastinal widening or masses. No hilar or mediastinal lymphadenopathy. Bony Thorax: Bony thorax appears intact without fractures or deformities. Soft Tissues: Soft tissues overlying the chest wall are unremarkable. IMPRESSION: Right chemoport with tip at the cavoatrial junction. Left lower zone is obliterated cardiac shadow due to positional. Unchanged prominent bronchovascular markings in bilateral lungs likely pulmonary congestion. Unchanged obscured left CP angle and interval blunting of right CP angle likely small pleural effusion. Cardiomegaly. Electronically signed by Hunter Patton 10-31-2024 07:51 AM Ordered Studies 10/28/24 06:39 CT head/brain wo con Stat 10/28/24 09:20 CT abdomen w IV con Urgent 10/28/24 14:37 CT angio chest PE protocol Stat 10/28/24 14:55 CT head/brain wo con Stat 10/28/24 14:56 CT angio head w con Stat CT angio neck with con Stat 10/28/24 17:49 MR brain wo con Urgent Hospital Course (1) Acute hyperkalemia: (2) Hypothyroidism: (3) ESRD on hemodialysis: (4) Gastrointestinal stromal tumor (GIST): (5) Essential hypertension: (6) Morbid obesity: (7) COPD (chronic obstructive pulmonary disease): (8) Uremia: Plan 68 yo female with pmhx of ESRD (MWF) c/b renal transplant failure, chronic hypoxic respiratory failure (on 2L chronically) 2/2 severe COPD, Graves disease, severe [place], 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 Uremic Encephalopathy Presented with extensive twitching and some confusion Patient missed dialysis prior to admission --MRI Brain: No evidence of acute intracranial pathology. --Head CTA:No significant arterial narrowing or occlusion seen at the brain. --Neck CTA:No stenosis or dissection within the bilateral common carotid, cervical internal carotid or vertebral arteries. -- Continue dialysis per nephrology Appreciate nephrology input Mental status back to baseline Plan to discharge home today Acute on Chronic Hypoxic Respiratory Failure Secondary to pulmonary edema due to missed dialysis Severe [place] Severe COPD Chronic oxygen dependency on 2 L at baseline Suspected superimposed pneumonia --Chest CTA:No pulmonary emboli identified although subsegmental pulmonary arteries suboptimally assessed due to respiratory motion. Cardiomegaly small bilateral pleural effusions. Interstitial pulmonary edema. Nodular and groundglass opacities favor alveolar pulmonary edema however superimposed pneumonia could appear similar. Mildly enlarged mediastinal and bilateral hilar lymph nodes. These are likely related to pulmonary edema. A follow-up chest CT could be obtained in 3 months to ensure resolution. -- Elevated procalcitonin --Nasal MRSA negative Continue empiric azithromycin, Zosyn>> transition to oral antibiotics to complete the course Will need repeat CT chest in 3 months as outpatient Titrate oxygen to keep saturations 88 to 92% Continue CPAP at bedtime Continue dialysis to help with volume status 2 step: Did not qualify for supplemental oxygen Hyperkalemia Secondary to end-stage renal disease Continue dialysis Monitor potassium levels Resolved Chronic thrombocytopenia No acute bleeding issues Monitor CBC Platelet count improving Sepsis Likely source pneumonia as above Blood cultures negative to date Empirically on antibiotics as above Type 2 VT -EKG personally reviewed, peaked T waves with slightly prolonged QRS in setting severe hyperkalemia -septal ST elevations with T wave inversions appear worse but relatively similar to prior --Echo as above -- Continue aspirin, metoprolol, statin Appreciate cardiology input 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 Exam mildly compromised from a technical standpoint, as described above. Stable c lustered small retroperitoneal lymph nodes since CT of January 30, 2023. These are likely benign. Stable mild splenomegaly. Moderate dilatation of the common bile duct, similar to prior exam. This is likely related to cholecystectomy however correlation with liver function tests is recommended. Possible small clustered calculi within the cystic duct stump. Wall thickening of the ascending colon, likely due to underdistention. A nonspecific colitis could appear similar although is considered less likely. -- Tolerating current diet --Consider stool studies if develops diarrhea ESRD (MWF) Severe Uremia -missed 3 dialysis sessions in past week -Continue dialysis per nephrology Appreciate nephrology input Hypothyroidism Graves Disease -TSH WNL -s/p thyroidectomy and parathyroidectomy -continue levothyroxine Anemia of chronic disease Monitor CBC EPO per nephrology H/O Butt's palsy Per record DVT Px: SCDs for now Re: Anemia, thrombocytopenia CODE STATUS DNI DNR Disposition Home Total Time Total Time Spent Total Time Spent (In Minutes): 53 minutes Discharge Plan Discharge Items Patient Disposition: Home - Self-Care Reason For Visit: RENAL FAILURE Discharge Diagnosis: Uremic Encephalopathy Acute on Chronic Hypoxic Respiratory Failure Pulmonary edema Pneumonia Hyperkalemia Thrombocytopenia Sepsis Condition on Discharge: Fair Activity: Per Instructions section Exercise/Sports: Gradually increase as tolerated Non-emergency contact: Primary Care Provider and Tank Tender Call non-emergency contact if: you have any medication questions, your symptoms worsen, your pain is concerning for you and you have a fever Follow-up/Referrals: Jameel Reyna, DO [Primary Care Provider] - (The office will call you with a follow up appointment.) Diet: Dialysis Renal Addtl Attending Provider Instructions: -- Follow-up with your primary care physician in 1 week -- Follow-up with your cyber intelligence analyst for dialysis as recommended --Your final blood cultures are pending at the time of discharge. Follow-up with your physician for results. --Complete the antibiotic course azithromycin, Augmentin as prescribed --Take Augmentin (amoxicillin /clavulanic ) after your dialysis (on dialysis days) as recommended -- You are started on hydralazine 25 mg 3 times a day for better control of your blood pressure. Monitor your blood pressure regularly and discuss with your primary care physician/cyber intelligence analyst for further adjustment of medications as needed. Seek immediate medical attention if your symptoms reoccur or worsen Please review medication list provided on discharge for any medication changes as instructed. Please call if you have any questions or problems. You can reach a [facility] hospitalist on duty at [facility] 24 hours a day by calling [phone] Pending Studies at Discharge: Yes Studies:: Blood cultures Stand-Alone Forms: [facility] [employer], Smoking Cessation Medications and DC Order Prescriptions: New azithromycin 500 mg tablet 500 mg PO QAM Qty: 1 0RF atorvastatin 20 mg Tablet 20 mg PO HS Qty: 30 0RF hydralazine 25 mg Tablet 25 mg PO TID 30 Days Qty: 90 0RF Advanced Probiotic 625 mg (10 billion cell) Capsule 1 cap PO DAILY Qty: 5 0RF amoxicillin-pot clavulanate [Augmentin] 500-125 mg tablet 1 tab PO DAILY Qty: 4 0RF Continued clonidine HCl 0.1 mg tablet 0.1 mg PO BID Qty: 90 2RF metoprolol tartrate 25 mg tablet 25 mg PO DAILY calcitriol 0.5 mcg capsule 1 mcg PO QAM Qty: 90 2RF calcium carbonate 500 mg calcium (1,250 mg) tablet,chewable 1,500 mg PO HS levothyroxine 200 mcg tablet 200 mcg PO DAILY Qty: 30 5RF aspirin 81 mg Tablet,Chewable 81 mg PO QAM Rx Instructions: TAKE WITH FOOD gabapentin 100 mg capsule 100 mg PO BID magnesium oxide 400 mg magnesium Tablet 400 mg PO QAM ondansetron HCl 8 mg Tablet 8 mg PO TID PRN (Reason: PRIOR TO CHEMOTHERAPY MEDS) amlodipine 5 mg Tablet 5 mg PO BID prochlorperazine maleate [Compazine] 10 mg Tablet 10 mg PO Q6H PRN (Reason: NAUSEA/VOMITING) triamcinolone acetonide 0.1 % Cream 1 applic TOPICAL BID PRN (Reason: Rash) Lucas Caps 1 mg Capsule 1 cap PO DAILY Rx Instructions: TAKE AFTER DIALYSIS TREATMENT. Dialysis days are Mon/Wed/Fri imatinib [Gleevec] 100 mg Tablet 200 mg PO QPM Rx Instructions: TAKE WITH A MEAL calcium acetate(phosphat bind) 667 mg capsule 1,334 mg PO TID Rx Instructions: w/meals and snack Refresh Contacts Drops 1 drp ophthalmic (eye) 6XD PRN (Reason: dry eye(s)) Qty: 12 0RF oxycodone-acetaminophen 5-325 mg tablet 1 tab PO Q8H PRN (Reason: Pain) omeprazole 40 mg capsule,delayed release(DR/EC) 40 mg PO DAILY Discharge Orders: Discharge Order (Routine); Ordered 10/31/24 Ordered By: Albert Hays Admission Data Admit Date/Time: 10/28/24 08:28 Attending Provider: Albert Hays Admit Provider: Mario Cook Primary Care Provider: Jameel Reyna Other Providers: [id number]; Mario Cook; Paulo Roldan; Román Pressley
[2024-10-31 14:01] VITALS: PULSE 74; O2SAT 99
--- NOTE | 2024-11-01 13:27 | Electrocardiogram Report ---
Test Reason : Blood Pressure : */* mmHG Vent. Rate : 184 BPM Atrial Rate : 92 BPM P-R Int : * ms QRS Dur : 76 ms QT Int : 258 ms P-R-T Axes : * 0 11 degrees QTcB Int : 451 ms Sinus rhythm Incomplete right bundle branch block Low voltage QRS Nonspecific ST and T wave abnormality Abnormal ECG When compared with ECG of 05-Jun-2024 09:33, Nonspecific T wave abnormality, worse in Inferior leads Confirmed by Victor Hugo Lopez ([id number]) on 11/01/2024 1:27:09 PM Referred By: Confirmed By: Victor Hugo Lopez
--- NOTE | 2024-11-01 14:00 | Electrocardiogram Report ---
Test Reason : Blood Pressure : */* mmHG Vent. Rate : 108 BPM Atrial Rate : 108 BPM P-R Int : 160 ms QRS Dur : 112 ms QT Int : 370 ms P-R-T Axes : 65 10 47 degrees QTcB Int : 495 ms Sinus tachycardia Possible Left atrial enlargement Inferior-posterior infarct , age undetermined Abnormal ECG When compared with ECG of 28-Oct-2024 06:39, (unconfirmed) Questionable change in QRS duration Confirmed by Victor Hugo Lopez ([id number]) on 11/01/2024 2:00:13 PM Referred By: REFERRED SELF Confirmed By: Victor Hugo Lopez
== END 2024-10-31 15:20 | disposition home or self-care (01) | DRG 871 ==
LOC: ED 06:29 → EDINP 08:28 → SUATTDRO 08:28 → EDINP 08:36 → 2S 13:40

== ENCOUNTER 2024-12-13 15:36 | Inpatient (IN) ==
--- NOTE | 2024-12-13 16:13 | Emergency Department Note ---
Impression & Plan Acute pericardial effusion, Pericarditis, Acute pericarditis due to uremia, Pleural effusion, Acute hypoxic respiratory failure ED Provider Note NAME: JESUS CAO AGE: 69 SEX: F : 1955 ARRIVES VIA: Walk-In INFORMANT: Patient, ED PROVIDER(S): Parth Xavier MD CHIEF COMPLAINT: Chest pain, shortness of breath HPI: This is a 69-year-old female with history of ESRD, on dialysis presenting for right-sided chest pain. Patient states that the chest pain is pleuritic in nature. hurts with deep inspiration. Is right side underneath her breast. She talked to her physician who was concerned that a biliary stent may have moved. Otherwise patient has no cough, fever, congestion. She only wears oxygen as needed and has not required oxygen in multiple weeks. She had dialysis today that went well. ROS: See above HPI for pertinent positives & negatives. A total of 10 systems reviewed and were otherwise negative. PAST MEDICAL HISTORY: See Below PAST SURGICAL HISTORY: See Below FAMILY HISTORY: See Below SOCIAL HISTORY: See Below HOME MEDICATIONS: See Below ALLERGIES: See Below VITALS: See Below PHYSICAL EXAMINATION: General: Chronically ill-appearing Head: Normocephalic and atraumatic Eyes: Normal inspection, extraocular muscles intact Ear, nose, throat: Normal external exam Neck: Normal range of motion Respiratory: lungs clear to auscultation bilaterally Cardiovascular: Regular rate/rhythm, no murmur GI: soft, nontender, no guarding or rebound Extremities: nontender, moves all extremities Neuro: The patient awake and alert, appropriately conversive, no focal deficits, symmetric faces Skin: Warm, dry, and intact MEDICAL DECISION MAKING: This is a 69-year-old female with history of ESRD on hemodialysis admitted for right-sided chest pain. - ECG independently interpreted by me with normal sinus rhythm, rate of 84, normal IA, incomplete right bundle branch block, mildly prolonged QT, no ST segment elevations consistent with STEMI criteria -Chest x-ray reveals right greater than left sided focal opacity concerning for pneumonia or pulmonary edema, upon my independent interpretation - Will patient CT imaging due to patient's current chest pain, hypoxia, tachypnea -Blood reveals a leukocytosis to 24. Anemia to 9.5. Electrolytes currently within normal limits with an elevated creatinine consistent with ESRD. Troponin mildly elevated at 28, also expected with ESRD. - CT imaging currently reveals pleural effusions and small to moderate pericardial effusion, increased. Possible pericarditis. Possibly uremic based on patient's dialysis and renal failure needs -Otherwise CT abdomen/pelvis pelvis reveals interval placement of common bile duct stent. - Discussed with [facility] hospitalist service. They request discussion with nephrology - Discussed with on-call [facility] manager visual about patient's current status. Will be available for dialysis tomorrow morning. -Clinically patient appears well, is not hypotensive or an extremis. -Patient was admitted to hospital service Differential diagnosis: PE, pneumonia, pleural effusion, pulmonary edema, pericardial effusion Independent History obtained from: Diagnostics interpreted by me: ECG: See above Cardiac Monitoring: An order was placed for continuous cardiac monitoring. The monitor shows a rate of 84 with sinus rhythm. 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 Encounter for pre-operative examination Hypertensive urgency (Acute) Abnormal finding on MRI of brain (Acute) Chronic migraine (Acute) CKD (chronic kidney disease) (Acute) Hypertensive crisis Dyspnea on exertion Essential hypertension (Chronic) Morbid obesity Hypoxia (Acute) Sleep apnea Hypercalcemia Hemodialysis catheter malfunction DVT prophylaxis UTI (urinary tract infection) Nausea Diarrhea Sepsis Hypotension (Acute) UTI (urinary tract infection) (Acute) Tachycardia (Acute) Weakness (Acute) Diaphoresis (Acute) Central venous catheter in place Dialysis AV fistula malfunction Post-surgical hypothyroidism S/P thyroidectomy S/P parathyroidectomy (Acute) ESRD (end stage renal disease) on dialysis (Chronic) Hyperkalemia (Acute) Abdominal pain (Acute) Dilated bile duct (Acute) Pyelonephritis (Acute) Bladder wall thickening Hypoxia (Acute) Fluid overload (Acute) Hypocalcemia (Acute) Failed kidney transplant 2017 ESRD (end stage renal disease) on dialysis (Chronic) MWF at [facility] in [place] HTN (hypertension) (Chronic) controlled, stable per pt HLD (hyperlipidemia) (Chronic) Anemia in chronic kidney disease (Chronic) Hypothyroidism (Chronic) s/p thyroidectomy at [facility] 06/28/22 Medical History Mediastinal mass ongoing work-up with [facility] thoracic medicine and heme/onc Secondary hyperparathyroidism Neck pain h/o UE paresthesias; pt states neck pain and upper extremity abnormal symptoms>fully resolved Thyroid nodule s/p thyroidectomy COVID-19 hx-01/29/22-not hospitalized-symptoms fully resolved Pulmonary hypertension COPD (chronic obstructive pulmonary disease) stable per pt, no longer using supplemental oxygen-states home pulse ox readings are consistently 97% or greater-pt states provider is aware Abnormal stress test 01/2021 (reversible anterior and basal lateral defect consistent with ischemia vs soft tissue attenuation artifact) per [facility] cardio records, plan for medical management and consideration for DSE at 03/2021 appt; final determination per [facility] cardio is recommendation for diagnostic cardiac catheterization not yet scheduled by patient; now advised risk > benefit per [facility] cardio Limb alert care status left arm Port-A-Cath in place has not used in a long time History of peritoneal dialysis per [facility] cardio records "...previous peritoneal dialysis catheters. At least 1 of the peritoneal dialysis catheters had to be removed because of peritonitis..." Palpitations AV fistula left upper arm (functioning), also one to left wrist, but does not function properly Chronic back pain GERD (gastroesophageal reflux disease) controlled, stable per pt Migraine Sleep apnea severe per [facility] records, no device currently > has apt soon to see about getting back on device Surgical History Hx of total thyroidectomy 06/28/22, [place]>3 1/2 of parathyroid removed, also removed nodules that were "non cancerous" History of surgery hx perm cath insertion & removal History of appendectomy H/O cystoscopy History of laparoscopy History of bilateral tubal ligation History of kidney transplant 08/28/2016 @ [facility] (right side) functions at only 10%--d/t ESRD > follows with [facility] at [facility] History of cholecystectomy History of section x1 History of colonoscopy History of esophagogastroduodenoscopy (EGD) History of tooth extraction History of wisdom tooth extraction History of tonsillectomy and adenoidectomy Family History Grandmother (Paternal) Family history of diabetes mellitus Grandmother (Maternal) Family history of diabetes mellitus Family hx of colon cancer Mother Family hx of colon cancer Other No family history of adverse response to anesthesia Social History Smoking Status: Never smoker Tobacco Type: Cigarettes Second Hand Exposure: No; Do You Dip or Chew Tobacco: No; Hx Alcohol Use: No Hx Substance Use: No Preferred Language: Vietnamese Communication Ability: Effective [employer] Work[employer] Required: No Beliefs That Will Affect Care: None marital status: Current Living Situation: Spouse Current Living Situation Comment: lives at home w spouse How many Children do You have: 1 Feels Safe at Home: Yes Assistive Devices: Walker Allergies Allergies Allergy/AdvReac Type Severity Reaction Status Date / Time levofloxacin AdvReac Severe C-DIFF Verified 12/13/24 21:05 Home Meds Home Medications Medication Instructions Recorded Confirmed magnesium oxide 400 mg PO QAM 03/08/22 12/13/24 amlodipine 5 mg tablet 5 mg PO BID 07/21/22 12/13/24 ondansetron HCl 8 mg tablet 8 mg PO TID PRN PRIOR TO 07/21/22 12/13/24 CHEMOTHERAPY MEDS vitamin B complex and vitamin C 1 cap PO DAILY 07/21/22 12/13/24 no.20-folic acid 1 mg capsule ([place] Caps) imatinib 100 mg tablet (Gleevec) 200 mg PO QPM 09/22/22 12/13/24 calcium acetate(phosphat bind) 667 2,001 mg PO TID 10/20/22 12/13/24 mg capsule omeprazole 40 mg capsule,delayed 40 mg PO DAILY 06/02/23 12/13/24 release oxycodone-acetaminophen 5 mg-325 1 tab PO Q8H Pain 06/02/23 12/13/24 mg tablet calcium carbonate 1,500 mg PO HS 07/16/24 12/13/24 gabapentin 100 mg capsule 100 mg PO BID 07/16/24 12/13/24 metoprolol tartrate 25 mg tablet 25 mg PO DAILY 08/29/24 12/13/24 apixaban 2.5 mg tablet (Eliquis) 2.5 mg PO BID 12/13/24 12/13/24 hydralazine 25 mg tablet 25 mg PO TID 12/13/24 12/13/24 oxybutynin chloride 5 mg 5 mg PO 3XWK 12/13/24 12/13/24 tablet,extended release 24 hr Previous Rx's Medication Instructions Recorded carboxymethylcellulose sodium 1 drp ophthalmic (eye) 6XD PRN dry 03/09/23 (Refresh Contacts eye drops) eye(s) #12 mL levothyroxine 200 mcg tablet 200 mcg PO DAILY #30 tabs 07/24/24 calcitriol 0.5 mcg capsule 1 mcg (2 x 0.5 mcg) PO QAM #90 caps 07/30/24 clonidine HCl 0.1 mg tablet 0.1 mg PO BID #90 tabs 08/29/24 L.acidop,casei,lactis,rham-B.lact,zaida 1 cap PO DAILY #5 caps 10/31/24 625 mg (10 billion cell) capsule (Advanced Probiotic) atorvastatin 20 mg tablet 20 mg PO HS #30 tabs 10/31/24 Results & Data (ED) Vital Signs Vital Signs - 24 hr 12/13/24 15:37 12/13/24 15:51 12/13/24 16:17 Temperature 36.8 C Temperature Source Temporal Artery Scan Pulse Rate 88 82 Pulse Rate from SpO2 Sensor Pulse Strength Normal Respiratory Rate 16 Blood Pressure 123/67 Blood Pressure Mean 85 Pulse Oximetry 88 L 88 L Oxygen Delivery Method Room Air Room Air Sepsis Recent Fever Within 48 Hours No Sepsis New/Unexplained Change in Mental Status N/A Sepsis Action Taken by Nursing No Action Required Oxygen Flow Rate - Titration 2 Pulse Oximetry Post Tiitration 92 12/13/24 16:18 12/13/24 16:33 12/13/24 17:03 Temperature Temperature Source Pulse Rate 83 82 81 Pulse Rate from SpO2 Sensor 82 82 81 Pulse Strength Respiratory Rate 20 26 H 14 Blood Pressure 116/59 L Blood Pressure Mean 78 Pulse Oximetry 92 92 90 Oxygen Delivery Method Sepsis Recent Fever Within 48 Hours Sepsis New/Unexplained Change in Mental Status Sepsis Action Taken by Nursing Oxygen Flow Rate - Titration Pulse Oximetry Post Tiitration 12/13/24 17:09 12/13/24 17:30 12/13/24 17:30 Temperature Temperature Source Pulse Rate 82 Pulse Rate from SpO2 Sensor 82 Pulse Strength Respiratory Rate 15 Blood Pressure 122/63 122/63 Blood Pressure Mean 90 90 Pulse Oximetry 91 Oxygen Delivery Method Sepsis Recent Fever Within 48 Hours Sepsis New/Unexplained Change in Mental Status Sepsis Action Taken by Nursing Oxygen Flow Rate - Titration Pulse Oximetry Post Tiitration 12/13/24 17:30 12/13/24 18:00 12/13/24 18:01 Temperature Temperature Source Pulse Rate Pulse Rate from SpO2 Sensor 82 Pulse Strength Respiratory Rate Blood Pressure 122/63 136/71 Blood Pressure Mean 90 97 Pulse Oximetry 93 Oxygen Delivery Method Sepsis Recent Fever Within 48 Hours Sepsis New/Unexplained Change in Mental Status Sepsis Action Taken by Nursing Oxygen Flow Rate - Titration Pulse Oximetry Post Tiitration 12/13/24 18:12 12/13/24 18:21 12/13/24 18:30 Temperature Temperature Source Pulse Rate 83 83 Pulse Rate from SpO2 Sensor 83 83 Pulse Strength Respiratory Rate 23 15 Blood Pressure 143/77 H Blood Pressure Mean 93 Pulse Oximetry 94 93 Oxygen Delivery Method Sepsis Recent Fever Within 48 Hours Sepsis New/Unexplained Change in Mental Status Sepsis Action Taken by Nursing Oxygen Flow Rate - Titration Pulse Oximetry Post Tiitration 12/13/24 18:30 12/13/24 18:36 12/13/24 18:42 Temperature Temperature Source Pulse Rate 82 82 Pulse Rate from SpO2 Sensor 82 83 Pulse Strength Respiratory Rate 23 17 Blood Pressure 143/77 H Blood Pressure Mean 93 Pulse Oximetry 96 96 Oxygen Delivery Method Sepsis Recent Fever Within 48 Hours Sepsis New/Unexplained Change in Mental Status Sepsis Action Taken by Nursing Oxygen Flow Rate - Titration Pulse Oximetry Post Tiitration 12/13/24 18:54 12/13/24 18:57 12/13/24 19:00 Temperature Temperature Source Pulse Rate 81 82 Pulse Rate from SpO2 Sensor 82 82 Pulse Strength Respiratory Rate 13 16 Blood Pressure 140/74 Blood Pressure Mean 91 Pulse Oximetry 96 95 Oxygen Delivery Method Sepsis Recent Fever Within 48 Hours Sepsis New/Unexplained Change in Mental Status Sepsis Action Taken by Nursing Oxygen Flow Rate - Titration Pulse Oximetry Post Tiitration 12/13/24 19:00 12/13/24 19:06 12/13/24 19:15 Temperature Temperature Source Pulse Rate 82 83 Pulse Rate from SpO2 Sensor 82 83 Pulse Strength Respiratory Rate 18 23 Blood Pressure 140/74 Blood Pressure Mean 91 Pulse Oximetry 96 95 Oxygen Delivery Method Sepsis Recent Fever Within 48 Hours Sepsis New/Unexplained Change in Mental Status Sepsis Action Taken by Nursing Oxygen Flow Rate - Titration Pulse Oximetry Post Tiitration 12/13/24 19:18 12/13/24 19:30 12/13/24 19:33 Temperature Temperature Source Pulse Rate 84 84 Pulse Rate from SpO2 Sensor 84 84 Pulse Strength Respiratory Rate 21 27 H Blood Pressure 141/76 H Blood Pressure Mean 102 Pulse Oximetry 94 95 Oxygen Delivery Method Sepsis Recent Fever Within 48 Hours Sepsis New/Unexplained Change in Mental Status Sepsis Action Taken by Nursing Oxygen Flow Rate - Titration Pulse Oximetry Post Tiitration 12/13/24 19:42 12/13/24 19:48 12/13/24 20:00 Temperature Temperature Source Pulse Rate 84 82 Pulse Rate from SpO2 Sensor 84 82 Pulse Strength Respiratory Rate 24 17 Blood Pressure 144/81 H Blood Pressure Mean 103 Pulse Oximetry 94 94 Oxygen Delivery Method Sepsis Recent Fever Within 48 Hours Sepsis New/Unexplained Change in Mental Status Sepsis Action Taken by Nursing Oxygen Flow Rate - Titration Pulse Oximetry Post Tiitration 12/13/24 20:00 12/13/24 20:00 12/13/24 20:09 Temperature Temperature Source Pulse Rate 84 Pulse Rate from SpO2 Sensor 84 Pulse Strength Respiratory Rate 17 25 H Blood Pressure 144/81 H 144/81 H Blood Pressure Mean 103 103 Pulse Oximetry 94 93 Oxygen Delivery Method Sepsis Recent Fever Within 48 Hours Sepsis New/Unexplained Change in Mental Status Sepsis Action Taken by Nursing Oxygen Flow Rate - Titration Pulse Oximetry Post Tiitration 12/13/24 20:13 Temperature Temperature Source Pulse Rate 84 Pulse Rate from SpO2 Sensor Pulse Strength Respiratory Rate Blood Pressure Blood Pressure Mean Pulse Oximetry Oxygen Delivery Method Sepsis Recent Fever Within 48 Hours Sepsis New/Unexplained Change in Mental Status Sepsis Action Taken by Nursing Oxygen Flow Rate - Titration Pulse Oximetry Post Tiitration Laboratory Data 12/13/24 15:54 12/13/24 15:54 Lab Results 12/13/24 12/13/24 Range/Units 15:54 18:16 WBC 24.12 H (4.8-10.8) K/ul RBC 3.25 L (4.20-5.40) M/uL Hgb 9.5 L (12.0-16.0) g/dl Hct 29.0 L (37.0-47.0) % MCV 89.2 (80.0-100.0) fL MCH 29.2 (25.0-34.0) pg MCHC 32.8 (32.0-36.0) g/dL RDW Std Deviation 50.6 H (36.4-46.3) fL RDW Coeff of [place] 15.6 H (11.5-14.5) % Plt Count 313 (130-400) K/uL MPV 9.2 L (9.4-12.4) fL Immature Gran % (Auto) 1.8 % Neut % (Auto) 85.7 % Lymph % (Auto) 3.1 % [place] % (Auto) 8.8 % Eos % (Auto) 0.4 % Baso % (Auto) 0.2 % Neut # (Auto) 20.67 H (1.40-6.50) K/uL Lymph # (Auto) 0.75 L (1.20-3.40) K/uL [place] # (Auto) 2.12 H (0.11-0.59) K/uL Eos # (Auto) 0.09 (0.00-0.50) K/uL Baso # (Auto) 0.06 (0.00-0.20) K/uL Immature Gran # (Auto) 0.43 H (0.01-0.20) K/uL ESR 82 H (0-30) mm/hr Sodium 134 L (136-145) mmol/L Potassium 4.0 (3.5-5.1) mmol/L Chloride 89 L (98-107) mmol/L Carbon Dioxide 34 H (21-32) mmol/L Anion Gap 11 (3-11) BUN 22 (6-23) mg/dl Creatinine 4.59 H* (0.6-1.2) mg/dl Est Cr Clr Drug Dosing Not Reportable eGFR 9.92 BUN/Creatinine Ratio 4.8 L (10-20) Glucose 99 (70-99(Fasting)) mg/dl Calcium 8.4 L (8.6-10.3) mg/dl Total Bilirubin 1.6 H (0.2-1.0) mg/dl AST 23 (13-39) U/L ALT 13 (7-52) U/L Alkaline Phosphatase 318 H (34-104) U/L Troponin I High Sens 28.8 H 24.1 H (0-14) pg/ml Total Protein 6.7 (6.0-8.3) gm/dl Albumin 3.5 (3.4-5.0) gm/dl Globulin 3.2 (2.5-4.0) gm/dl Albumin/Globulin Ratio 1.1 (0.9-2) Lipase 25 (11-82) U/L Administered Medications Discontinued Medications Ioversol (Optiray 320 125ml) 119 ml IV ONCE ONE Stop: 12/13/24 17:53 Last Admin: 12/13/24 17:53 Dose: 119 ml Documented By: EAKirill Imaging Data Radiologist's Impression: Chest X-Ray 12/13/24 16:03 Chest radiograph, one view History: Hypoxia Comparison: 10/31/2024 Findings/impression: Single AP view of the chest performed. New perihilar pulmonary opacities, right greater than left, favoring pulmonary edema. There is a new small to moderate right pleural effusion. Continued retrocardiac opacity representing atelectasis or consolidation, with possible pleural effusion as well. Right chest wall port with catheter tip in the lower SVC. No pneumothorax. The cardiomediastinal silhouette appears stable. Electronically signed by Romeo Ramos 12-13-2024 4:57 PM Abdomen/Pelvis CT 12/13/24 17:16 EXAMINATION: CT of the abdomen and pelvis performed after the administration of IV contrast TECHNIQUE: Helical CT images from the lung bases through the symphysis pubis were obtained with contrast. Coronal and sagittal reformatted images were generated at a workstation for further assessment. Dose reduction techniques were achieved by using automatic exposure control and/or adjustment of mA and/or kV according to patient size and/or use of iterative reconstruction technique. COMPARISON: 10/28/2024 HISTORY: Abdominal pain FINDINGS: Liver: No suspicious liver lesions. Portal veins appear patent. Gallbladder: Cholecystectomy changes. Similar appearing intrahepatic and extrahepatic biliary dilation. There is a new common duct stent. There is some mild debris within the common bile duct. Spleen: Normal size. Pancreas: No suspicious pancreatic lesions. The pancreatic duct is not dilated. Adrenal glands: No adrenal nodules. Kidneys: No hydronephrosis or obstructing renal stones. The kidneys are severely atrophic. Bladder / Pelvic organs: Unremarkable. Bowel: No bowel obstruction. No abnormal bowel wall thickening. The appendix is surgically absent. Extensive left colonic diverticulosis without diverticulitis. Lymph nodes: No retroperitoneal, mesenteric, or pelvic lymphadenopathy. Peritoneum / Retroperitoneum: No free fluid or air within the abdomen. Vessels: No infrarenal aortic aneurysm. Bones and soft tissues: No suspicious lesion in the bones. IMPRESSION: Interval common bile duct stent placement, with continued biliary ductal dilatation. There is some new mild pneumobilia. No other acute findings. Electronically signed by Romeo Ramos 12-13-2024 6:15 PM Chest CTA 12/13/24 17:16 CT pulmonary angiogram with IV contrast History: Chest pain COMPARISON: None TECHNIQUE: CT angiography of the chest was performed without IV contrast followed by IV contrast, including 3D post processing CTA image reconstruction. Dose reduction techniques were achieved by using automatic exposure control and/or adjustment of mA and/or kV according to patient size and/or use of iterative reconstruction technique. FINDINGS: Diagnostic quality: Adequate There is no evidence for pulmonary embolism. The heart is enlarged. There is a new small to moderate pericardial effusion, with increased enhancement about the parietal and visceral pericardium, which is best seen on the abdomen/pelvis images. There are moderate bilateral pleural effusions, which are increased from 10/28/2024. Enlarged pulmonary artery suggesting pulmonary hypertension. Bibasilar confluent atelectasis. Right middle lobe atelectasis also seen. There are no abnormally enlarged hilar or mediastinal lymph nodes. The central tracheobronchial tree is clear. Limited visualized upper abdomen. No destructive osseous changes are seen. IMPRESSION: No evidence for pulmonary embolism. Small to moderate pericardial effusion is increased. There is increased enhancement of the visceral and parietal pericardium, possibly due to pericarditis. Consider uremic pericarditis in this patient with history of dialysis and renal failure. Moderate pleural effusions. Electronically signed by Romeo Ramos 12-13-2024 6:15 PM Discharge Plan Visit Data Chief Complaint: Referred by Doctor Stated Complaint: REF BY , STENTS MA HAVE MOVED, CHEST DISCOMFORT ED Provider: Parth Xavier Discharge Problem: Acute pericardial effusion, Pericarditis, Acute pericarditis due to uremia, Pleural effusion, Acute hypoxic respiratory failure Patient Disposition: Admitted As Inpatient Condition: Serious Discharge Instructions Interventions: ED Discharge Assessment Last Done: 12/13/24 21:58
[2024-12-13 16:14] LABS: Hematocrit (blood only) 29.0 % (37.0-47.0); Hemoglobin 9.5 g/dl (12.0-16.0); Mean Corpuscular Hemoglobin 29.2 pg (25.0-34.0); Mean Corpuscular Volume 89.2 fL (80.0-100.0); Platelet Count 313 K/uL (130-400); RDW Standard Deviation 50.6 fL (36.4-46.3); Red Blood Count 3.25 M/uL (4.20-5.40); White Blood Count 24.12 K/ul (4.8-10.8)
[2024-12-13 16:31] LABS: Immature Granulocytes # (auto) 0.43 K/uL (0.01-0.20); Immature Granulocytes % (auto) 1.8 %
[2024-12-13 16:47] LABS: Alanine Aminotransferase 13 U/L (7-52); Albumin Globulin Ratio 1.1 (0.9-2); Albumin Level 3.5 gm/dl (3.4-5.0); Alkaline Phosphatase 318 U/L (34-104); Anion Gap 11 (3-11); Bilirubin,Total 1.6 mg/dl (0.2-1.0); Blood Urea Nitrogen 22 mg/dl (6-23); Calcium 8.4 mg/dl (8.6-10.3); Carbon Dioxide 34 mmol/L (21-32); Chloride 89 mmol/L (98-107); Globulin 3.2 gm/dl (2.5-4.0); Glucose 99 mg/dl (70-99(Fasting)); Lipase 25 U/L (11-82); Potassium 4.0 mmol/L (3.5-5.1); Sodium 134 mmol/L (136-145); Total Protein 6.7 gm/dl (6.0-8.3)
--- NOTE | 2024-12-13 16:57 | XRay Report ---
Chest radiograph, one view History: Hypoxia Comparison: 10/31/2024 Findings/impression: Single AP view of the chest performed. New perihilar pulmonary opacities, right greater than left, favoring pulmonary edema. There is a new small to moderate right pleural effusion. Continued retrocardiac opacity representing atelectasis or consolidation, with possible pleural effusion as well. Right chest wall port with catheter tip in the lower SVC. No pneumothorax. The cardiomediastinal silhouette appears stable. Electronically signed by Romeo Ramos 12-13-2024 4:57 PM
[2024-12-13] MEDS: OPTIRAY 320 125ml IV ONE (17:53)
--- NOTE | 2024-12-13 18:16 | CT Scan Report ---
CT pulmonary angiogram with IV contrast History: Chest pain COMPARISON: None TECHNIQUE: CT angiography of the chest was performed without IV contrast followed by IV contrast, including 3D post processing CTA image reconstruction. Dose reduction techniques were achieved by using automatic exposure control and/or adjustment of mA and/or kV according to patient size and/or use of iterative reconstruction technique. FINDINGS: Diagnostic quality: Adequate There is no evidence for pulmonary embolism. The heart is enlarged. There is a new small to moderate pericardial effusion, with increased enhancement about the parietal and visceral pericardium, which is best seen on the abdomen/pelvis images. There are moderate bilateral pleural effusions, which are increased from 10/28/2024. Enlarged pulmonary artery suggesting pulmonary hypertension. Bibasilar confluent atelectasis. Right middle lobe atelectasis also seen. There are no abnormally enlarged hilar or mediastinal lymph nodes. The central tracheobronchial tree is clear. Limited visualized upper abdomen. No destructive osseous changes are seen. IMPRESSION: No evidence for pulmonary embolism. Small to moderate pericardial effusion is increased. There is increased enhancement of the visceral and parietal pericardium, possibly due to pericarditis. Consider uremic pericarditis in this patient with history of dialysis and renal failure. Moderate pleural effusions. Electronically signed by Romeo Ramos 12-13-2024 6:15 PM
--- NOTE | 2024-12-13 18:16 | CT Scan Report ---
EXAMINATION: CT of the abdomen and pelvis performed after the administration of IV contrast TECHNIQUE: Helical CT images from the lung bases through the symphysis pubis were obtained with contrast. Coronal and sagittal reformatted images were generated at a workstation for further assessment. Dose reduction techniques were achieved by using automatic exposure control and/or adjustment of mA and/or kV according to patient size and/or use of iterative reconstruction technique. COMPARISON: 10/28/2024 HISTORY: Abdominal pain FINDINGS: Liver: No suspicious liver lesions. Portal veins appear patent. Gallbladder: Cholecystectomy changes. Similar appearing intrahepatic and extrahepatic biliary dilation. There is a new common duct stent. There is some mild debris within the common bile duct. Spleen: Normal size. Pancreas: No suspicious pancreatic lesions. The pancreatic duct is not dilated. Adrenal glands: No adrenal nodules. Kidneys: No hydronephrosis or obstructing renal stones. The kidneys are severely atrophic. Bladder / Pelvic organs: Unremarkable. Bowel: No bowel obstruction. No abnormal bowel wall thickening. The appendix is surgically absent. Extensive left colonic diverticulosis without diverticulitis. Lymph nodes: No retroperitoneal, mesenteric, or pelvic lymphadenopathy. Peritoneum / Retroperitoneum: No free fluid or air within the abdomen. Vessels: No infrarenal aortic aneurysm. Bones and soft tissues: No suspicious lesion in the bones. IMPRESSION: Interval common bile duct stent placement, with continued biliary ductal dilatation. There is some new mild pneumobilia. No other acute findings. Electronically signed by Romeo Ramos 12-13-2024 6:15 PM
--- NOTE | 2024-12-13 18:58 | Electrocardiogram Report ---
Test Reason : Blood Pressure : */* mmHG Vent. Rate : 84 BPM Atrial Rate : 84 BPM P-R Int : 192 ms QRS Dur : 110 ms QT Int : 406 ms P-R-T Axes : 7 7 0 degrees QTcB Int : 479 ms Normal sinus rhythm Low voltage QRS Incomplete right bundle branch block T wave abnormality, consider lateral ischemia Prolonged QT Abnormal ECG When compared with ECG of 28-Oct-2024 14:37, T wave inversion now evident in Inferior leads T wave inversion now evident in Lateral leads Confirmed by Romeo Gonzalez ([id number]) on 12/13/2024 6:58:00 PM Referred By: Confirmed By: Romeo Gonzalez
--- NOTE | 2024-12-13 19:56 | History & Physical Report ---
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 #Right-sided chest pain #Small to moderate pericardial effusion seen on chest CTA, possible pericarditis -- ? uremic pericarditis TTE ordered and pending Check ESR, CRP Start colchicine, prednisone Appreciate cardiology consult for further evaluation #Elevated troponin Likely demand ischemia ISO above Already downtrending EKG without antonino evidence of ischemia, infarct Continue telemetry monitoring Repeat EKG with chest pain as needed #ESRD on HD M/W/F #Moderate bilateral pleural effusions seen on chest CTA (increased when compared to prior imaging) #Chronic hypoxic respiratory failure -Used to be on 2L NC -Was not discharged on any supplemental O2 following last admission under our service, passed 2-step Completed full dialysis session earlier today Still makes very small amount of urine Not in respiratory distress, on 2L NC Suspect O2 requirement secondary to volume overload, doubt infectious etiology at this time Plan for HD tomorrow per nephrology Continue Nephrocaps, calcitriol, PhosLo, calcium carbonate #Leukocytosis Unclear source/cause Respiratory BioFire negative Patient otherwise grossly asymptomatic except for right sided chest pain, offers no additional complaints Check procalcitonin Could check UA but patient denying any urinary symptoms so doubt this as a potential source Blood cultures pending but will monitor off ABX for now #History of ascending cholangitis #History of E. coli bacteremia Recently admitted at [facility] 12/02/24-12/08/24 Found to have ascending cholangitis on imaging ERCP done 12/04 with removal of 9mm stone from CBD and placement of stent Found to have E. coli bacteremia, sepsis due to acute cholangitis which was treated with Zosyn/Rocephin Stent appears to be in good positioning on CTAP imaging today, some mild new pneumobilia which is not unexpected Will need to have repeat ERCP in 2 months s/p DC for stent removal - [facility] #History of atrial fibrillation with RVR Developed atrial fibrillation with RVR during admission at [facility] last month Thought triggered by sepsis Was started on metoprolol to tartrate 75 mg twice daily [place] [facility] [place] will continue for now Was also started on Eliquis by PCP, will continue for now #HTN BP on softer side Hold hydralazine, amlodipine and clonidine for now - will resume as able #HLD Continue statin #Graves' disease and secondary hyperparathyroidism s/p total thyroidectomy and parathyroidectomy Continue levothyroxine #GERD Continue PPI #Severe CHEYENNE Continue CPAP HS #Anemia of chronic renal failure H/H overall stable compared to prior, continue to monitor #History of GIST tumor Has not been following up with oncology, on imatinib Hold imatinib for now due to drug-drug interaction with colchicine DVT Prophylaxis: SCDs/TEDs, Eliquis Code Status: FULL CODE - As per direct discussion with patient at bedside in the ED. PCP: Jameel Reyna DO Disposition: Admit to PCU Patient seen in collaboration with Dr. Gamez. Please see addendum. I spent a total of 84 minutes coordinating, documenting, and providing care for this patient excluding time spent in the performance of separately billed services or time spent by another provider/QHP. This included personally reviewing all current laboratories and imaging studies, medical reconciliation, outpatient chart review and discussion with specialists. This chart was completed in part utilizing Speech Voice Recognition Software. Grammatical errors, random word insertions, pronoun errors, and incomplete sentences are an occasional consequence of this system due to software limitations, ambient noise, and hardware issues. Any formal questions or concerns about the content, text, or information contained within the body of this dictation should be directly addressed to the provider for clarification. 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 History obtained from the patient, patient's significant other at bedside, discussion with ED provider and associated chart review. Endorses right sided chest pain for the past couple of days. Primarily under the right breast. Sharp at times. Worse with deep inspiration and lying down. Denies any shortness of breath, cough, fever/chills or sputum production. Completed dialysis session earlier today. Reports minimal urine production. Denies any dysuria or hematuria. Passing bowels okay. Denies using any supplemental O2 at home. Mentions she was admitted at [facility] last month for gallstones and had a stent placed. Also had a bout of atrial fibrillation during that confinement, started on beta-darrell therapy and Eliquis. Allergies Allergy/AdvReac Type Severity Reaction Status Date / Time levofloxacin AdvReac Severe C-DIFF Verified 12/13/24 21:05 Home Medications Medication Instructions Recorded Confirmed Type magnesium oxide 400 mg PO QAM 03/08/22 12/13/24 History amlodipine 5 mg tablet 5 mg PO BID 07/21/22 12/13/24 History ondansetron HCl 8 mg tablet 8 mg PO TID PRN PRIOR TO 07/21/22 12/13/24 History CHEMOTHERAPY MEDS vitamin B complex and vitamin C 1 cap PO DAILY 07/21/22 12/13/24 History no.20-folic acid 1 mg capsule (Lucas Caps) imatinib 100 mg tablet (Gleevec) 200 mg PO QPM 09/22/22 12/13/24 History calcium acetate(phosphat bind) 667 2,001 mg PO TID 10/20/22 12/13/24 History mg capsule carboxymethylcellulose sodium 1 drp ophthalmic (eye) 6XD PRN dry 03/09/23 12/13/24 Rx (Refresh Contacts eye drops) eye(s) #12 mL omeprazole 40 mg capsule,delayed 40 mg PO DAILY 06/02/23 12/13/24 History release oxycodone-acetaminophen 5 mg-325 1 tab PO Q8H Pain 06/02/23 12/13/24 History mg tablet calcium carbonate 1,500 mg PO HS 07/16/24 12/13/24 History gabapentin 100 mg capsule 100 mg PO BID 07/16/24 12/13/24 History levothyroxine 200 mcg tablet 200 mcg PO DAILY #30 tabs 07/24/24 12/13/24 Rx calcitriol 0.5 mcg capsule 1 mcg (2 x 0.5 mcg) PO QAM #90 caps 07/30/24 12/13/24 Rx clonidine HCl 0.1 mg tablet 0.1 mg PO BID #90 tabs 08/29/24 12/13/24 Rx metoprolol tartrate 25 mg tablet 75 mg PO BID 08/29/24 12/13/24 History L.acidop,casei,lactis,rham-B.lact,zaida 1 cap PO DAILY #5 caps 10/31/24 12/13/24 Rx 625 mg (10 billion cell) capsule (Advanced Probiotic) atorvastatin 20 mg tablet 20 mg PO HS #30 tabs 10/31/24 12/13/24 Rx apixaban 2.5 mg tablet (Eliquis) 2.5 mg PO BID 12/13/24 12/13/24 History hydralazine 25 mg tablet 25 mg PO TID 12/13/24 12/13/24 History oxybutynin chloride 5 mg 5 mg PO 3XWK 12/13/24 12/13/24 History tablet,extended release 24 hr Past Med/Surg History Problem List (Updated 12/13/24 @ 23:37 by Dalila Powers PA-C) Pleural effusion, bilateral Pericardial effusion Chest pain Acute hypoxic respiratory failure (Acute) Pleural effusion (Acute) Acute pericarditis due to uremia (Acute) Pericarditis (Acute) Acute pericardial effusion (Acute) NSTEMI (non-ST elevated myocardial infarction) Dyslipidemia, goal LDL below 70 Uncontrolled hypertension Elevated troponin Pulmonary edema due to fluid overload Uremic encephalopathy Uremia Acute hyperkalemia (Acute) Hypothyroidism Hot flashes Dialysis AV fistula malfunction Anemia (Acute) ESRD on hemodialysis (Acute) Hypocalcemia (Acute) 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 Encounter for pre-operative examination Hypertensive urgency (Acute) Abnormal finding on MRI of brain (Acute) Chronic migraine (Acute) CKD (chronic kidney disease) (Acute) Hypertensive crisis Dyspnea on exertion Essential hypertension (Chronic) Morbid obesity Hypoxia (Acute) Sleep apnea Hypercalcemia Hemodialysis catheter malfunction DVT prophylaxis UTI (urinary tract infection) Nausea Diarrhea Sepsis Hypotension (Acute) UTI (urinary tract infection) (Acute) Tachycardia (Acute) Weakness (Acute) Diaphoresis (Acute) Central venous catheter in place Dialysis AV fistula malfunction Post-surgical hypothyroidism S/P thyroidectomy S/P parathyroidectomy (Acute) ESRD (end stage renal disease) on dialysis (Chronic) Hyperkalemia (Acute) Abdominal pain (Acute) Dilated bile duct (Acute) Pyelonephritis (Acute) Bladder wall thickening Hypoxia (Acute) Fluid overload (Acute) Hypocalcemia (Acute) Failed kidney transplant 2017 ESRD (end stage renal disease) on dialysis (Chronic) MWF at [facility] in [place] HTN (hypertension) (Chronic) controlled, stable per pt HLD (hyperlipidemia) (Chronic) Anemia in chronic kidney disease (Chronic) Hypothyroidism (Chronic) s/p thyroidectomy at [facility] 06/28/22 Medical History Mediastinal mass ongoing work-up with [facility] thoracic medicine and heme/onc Secondary hyperparathyroidism Neck pain h/o UE paresthesias; pt states neck pain and upper extremity abnormal symptoms>fully resolved Thyroid nodule s/p thyroidectomy COVID-19 hx-01/29/22-not hospitalized-symptoms fully resolved Pulmonary hypertension COPD (chronic obstructive pulmonary disease) stable per pt, no longer using supplemental oxygen-states home pulse ox readings are consistently 97% or greater-pt states provider is aware Abnormal stress test 01/2021 (reversible anterior and basal lateral defect consistent with ischemia vs soft tissue attenuation artifact) per [facility] cardio records, plan for medical management and consideration for DSE at 03/2021 appt; final determination per [facility] cardio is recommendation for diagnostic cardiac catheterization not yet scheduled by patient; now advised risk > benefit per [facility] cardio Limb alert care status left arm Port-A-Cath in place has not used in a long time History of peritoneal dialysis per [facility] cardio records "...previous peritoneal dialysis catheters. At least 1 of the peritoneal dialysis catheters had to be removed because of perit onitis..." Palpitations AV fistula left upper arm (functioning), also one to left wrist, but does not function properly Chronic back pain GERD (gastroesophageal reflux disease) controlled, stable per pt Migraine Sleep apnea severe per [facility] records, no device currently > has apt soon to see about getting back on device Surgical History Hx of total thyroidectomy 06/28/22, [facility]>3 1/2 of parathyroid removed, also removed nodules that were "non cancerous" History of surgery hx perm cath insertion & removal History of appendectomy H/O cystoscopy History of laparoscopy History of bilateral tubal ligation History of kidney transplant 08/28/2016 @ [facility] (right side) functions at only 10%--d/t ESRD > follows with dr at [facility] History of cholecystectomy History of section x1 History of colonoscopy History of esophagogastroduodenoscopy (EGD) History of tooth extraction History of wisdom tooth extraction History of tonsillectomy and adenoidectomy Family History Grandmother (Paternal) Family history of diabetes mellitus Grandmother (Maternal) Family history of diabetes mellitus Family hx of colon cancer Mother Family hx of colon cancer Other No family history of adverse response to anesthesia Social History Smoking Status: Former smoker Tobacco Type: Cigarettes Second Hand Exposure: No; Do You Dip or Chew Tobacco: No; Hx Alcohol Use: No Hx Substance Use: No Preferred Language: Romansh Communication Ability: Effective Coverstitch Elastic Attacher Required: No Beliefs That Will Affect Care: None marital status: Current Living Situation: Spouse Current Living Situation Comment: lives at home w spouse How many Children do You have: 1 Feels Safe at Home: Yes Safety Concerns: Feels Safe At This Time Assistive Devices: CPAP Review of Systems Review of Systems: At least ten systems reviewed and negative, except as noted in the HPI. Physical Exam Physical Exam: Please refer to Dr. Gamez's addendum for physical examination findings. Results & Data Results & Data Vital Signs (Past 12 Hours) Vital Signs Temp Pulse Resp BP Pulse Ox O2 Del Method 12/13/24 19:15 83 23 95 12/13/24 19:06 82 18 96 12/13/24 19:00 140/74 12/13/24 19:00 140/74 12/13/24 18:57 82 16 95 12/13/24 18:54 81 13 96 12/13/24 18:42 82 17 96 12/13/24 18:36 82 23 96 12/13/24 18:30 143/77 H 12/13/24 18:30 143/77 H 12/13/24 18:21 83 15 93 12/13/24 18:12 83 23 94 12/13/24 18:01 136/71 12/13/24 18:00 93 12/13/24 17:30 122/63 12/13/24 17:30 122/63 12/13/24 17:30 122/63 12/13/24 17:09 82 15 91 12/13/24 17:03 81 14 90 12/13/24 16:33 82 26 H 116/59 L 92 12/13/24 16:18 83 20 92 12/13/24 16:17 82 12/13/24 15:51 88 L Room Air 12/13/24 15:37 36.8 C 88 16 123/67 88 L Room Air Laboratory Results Short CBC 12/13/24 Range/Units 15:54 WBC 24.12 H (4.8-10.8) K/ul Hgb 9.5 L (12.0-16.0) g/dl Hct 29.0 L (37.0-47.0) % Plt Count 313 (130-400) K/uL BMP 12/13/24 15:54 Sodium 134 L Potassium 4.0 Chloride 89 L Carbon Dioxide 34 H BUN 22 Creatinine 4.59 H* Glucose 99 Calcium 8.4 L Liver Function 12/13/24 Range/Units 15:54 Total Bilirubin 1.6 H (0.2-1.0) mg/dl AST 23 (13-39) U/L ALT 13 (7-52) U/L Alkaline Phosphatase 318 H (34-104) U/L Albumin 3.5 (3.4-5.0) gm/dl Diagnostic Findings Chest X-Ray 12/13/24 16:03 Chest radiograph, one view History: Hypoxia Comparison: 10/31/2024 Findings/impression: Single AP view of the chest performed. New perihilar pulmonary opacities, right greater than left, favoring pulmonary edema. There is a new small to moderate right pleural effusion. Continued retrocardiac opacity representing atelectasis or consolidation, with possible pleural effusion as well. Right chest wall port with catheter tip in the lower SVC. No pneumothorax. The cardiomediastinal silhouette appears stable. Electronically signed by Romeo Ramos 12-13-2024 4:57 PM Abdomen/Pelvis CT 12/13/24 17:16 EXAMINATION: CT of the abdomen and pelvis performed after the administration of IV contrast TECHNIQUE: Helical CT images from the lung bases through the symphysis pubis were obtained with contrast. Coronal and sagittal reformatted images were generated at a workstation for further assessment. Dose reduction techniques were achieved by using automatic exposure control and/or adjustment of mA and/or kV according to patient size and/or use of iterative reconstruction technique. COMPARISON: 10/28/2024 HISTORY: Abdominal pain FINDINGS: Liver: No suspicious liver lesions. Portal veins appear patent. Gallbladder: Cholecystectomy changes. Similar appearing intrahepatic and extrahepatic biliary dilation. There is a new common duct stent. There is some mild debris within the common bile duct. Spleen: Normal size. Pancreas: No suspicious pancreatic lesions. The pancreatic duct is not dilated. Adrenal glands: No adrenal nodules. Kidneys: No hydronephrosis or obstructing renal stones. The kidneys are severely atrophic. Bladder / Pelvic organs: Unremarkable. Bowel: No bowel obstruction. No abnormal bowel wall thickening. The appendix is surgically absent. Extensive left colonic diverticulosis without diverticulitis. Lymph nodes: No retroperitoneal, mesenteric, or pelvic lymphadenopathy. Peritoneum / Retroperitoneum: No free fluid or air within the abdomen. Vessels: No infrarenal aortic aneurysm. Bones and soft tissues: No suspicious lesion in the bones. IMPRESSION: Interval common bile duct stent placement, with continued biliary ductal dilatation. There is some new mild pneumobilia. No other acute findings. Electronically signed by Romeo Ramos 12-13-2024 6:15 PM Chest CTA 12/13/24 17:16 CT pulmonary angiogram with IV contrast History: Chest pain COMPARISON: None TECHNIQUE: CT angiography of the chest was performed without IV contrast followed by IV contrast, including 3D post processing CTA image reconstruction. Dose reduction techniques were achieved by using automatic exposure control and/or adjustment of mA and/or kV according to patient size and/or use of iterative reconstruction technique. FINDINGS: Diagnostic quality: Adequate There is no evidence for pulmonary embolism. The heart is enlarged. There is a new small to moderate pericardial effusion, with increased enhancement about the parietal and visceral pericardium, which is best seen on the abdomen/pelvis images. There are moderate bilateral pleural effusions, which are increased from 10/28/2024. Enlarged pulmonary artery suggesting pulmonary hypertension. Bibasilar confluent atelectasis. Right middle lobe atelectasis also seen. There are no abnormally enlarged hilar or mediastinal lymph nodes. The central tracheobronchial tree is clear. Limited visualized upper abdomen. No destructive osseous changes are seen. IMPRESSION: No evidence for pulmonary embolism. Small to moderate pericardial effusion is increased. There is increased enhancement of the visceral and parietal pericardium, possibly due to pericarditis. Consider uremic pericarditis in this patient with history of dialysis and renal failure. Moderate pleural effusions. Electronically signed by Romoe Ramos 12-13-2024 6:15 PM Medications Administered Discontinued Medications Ioversol (Optiray 320 125ml) 119 ml IV ONCE ONE Stop: 12/13/24 17:53 Last Admin: 12/13/24 17:53 Dose: 119 ml Documented By: TRACY Supervising Physician Co-Signing Physician Notes Attending Addendum: Case reviewed with the advanced practitioner. I have personally performed a history and physical examination on the patient. I have reviewed the advanced practitioner's documentation on the date of service referenced in note, and I agree with, and take responsibility for the plan of care. please refer to her notes for full details patient seen and examined, records reviewed by myself as well on exam, patient seen resting in bed, sitting up, on 2 L NC, not in distress reports R sided chest pain, sharp, worse with inspiration and leaning forward denies shortness of breath, cough, fever/chills, sputum production reports she recently had pneumonia no other symptoms VS noted and reviewed oriented x 3, not in distress, speaks in sentences with no effort nor accessory muscle use normal rate, regular rhythm, no murmurs (+) mildly decreased breath sounds BL bases, no wheezing or crackles non distended, soft, nontender no bipedal edema, erythema, warmth no neuro deficits all labs, imaging noted and reviewed ASSESSMENT AND PLAN> RIGHT SIDED CHEST PAIN PERICARDIAL EFFUSION WITH POSSIBLE PERICARDITIS reports she also had an episode of fall last week trop 28 --> 24 EKG no signs of ischemia, infarct echo ordered ESR, CRP ordered start Prednisone and Colchicine Cardiology service consulted BILATERAL PLEURAL EFFUSION ESRD had usual HD session today (MWF) currently on 2L NC not in respiratory distress discussed with Nephro Dr. Sifuentes- plan for HD tomorrow other chronic medical problems: Recent biliary stent placement, GIST-- stent in good position per CT abd today COPD Grave's Disease HTN HLD Severe CHEYENNE on CPAP other diagnoses and plan of care as per advanced practitioner's notes I spent a total of 45 minutes coordinating, documenting, and providing care for this patient, excluding time spent in the performance of separately billed services or time spent by another provider/QHP. Kadeem Gamez MD
[2024-12-13] MEDS ORDERED: MAGNESIUM HYDROXIDE SUSP 30 ML UDC PO PRN (22:21)
[2024-12-13] MEDS ORDERED: POLYETHYLENE (MIRALAX) 17 GM PACK PO PRN (22:21)
[2024-12-13] MEDS ORDERED: ONDANSETRON INJ 2 MG/ML 2 ML VIAL IV PRN (22:21)
[2024-12-13 22:57] LABS: Chlamydia pneumoniae PCR Not Detected (NotDetected); Coronavirus 229E PCR Not Detected (NotDetected); Coronavirus CoV-2 (COVID19)PCR Not Detected (NotDetected); Coronavirus HKU1 PCR Not Detected (NotDetected); Coronavirus NL63 PCR Not Detected (NotDetected); Coronavirus OC43PCR Not Detected (NotDetected); Human Metapneumovirus PCR Not Detected (NotDetected); Parainfluenza Virus 1 PCR Not Detected (NotDetected); Parainfluenza Virus 2 PCR Not Detected (NotDetected); Parainfluenza Virus 3 PCR Not Detected (NotDetected); Parainfluenza Virus 4 PCR Not Detected (NotDetected); Respiratory Syncytial VirusPCR Not Detected (NotDetected); Rhinovirus/Enterovirus PCR Not Detected (NotDetected)
[2024-12-13] MEDS: COLCHICINE 0.6 MG TAB PO STA (23:12)
[2024-12-13] MEDS: predniSONE 20 MG TAB PO SCH (23:13)
[2024-12-14] MEDS: METOPROLOL TARTRATE 25 MG TAB PO SCH (00:40)
[2024-12-14] MEDS: APIXABAN 2.5 MG TAB PO SCH (00:40)
[2024-12-14] MEDS: ACETAMINOPHEN 325 MG TAB PO PRN (00:44)
[2024-12-14] MEDS: CALCIUM CARBONATE 1250MG TAB PO SCH (01:20)
[2024-12-14] MEDS: LEVOTHYROXINE SODIUM 200 MCG TABLET PO SCH (07:21)
[2024-12-14] MEDS: ADVANCED PROBIOTIC 625 MG CAPSULE PO SCH (07:53)
[2024-12-14] MEDS: CALCIUM ACETATE 667 MG CAP/TAB PO SCH (07:53)
[2024-12-14] MEDS: MAGNESIUM OXIDE 400 MG TAB PO SCH (07:53)
[2024-12-14] MEDS: GABAPENTIN 100 MG CAP PO SCH (07:53)
[2024-12-14] MEDS: CALCITRIOL 0.25 MCG CAPSULE PO SCH (07:54)
[2024-12-14] MEDS: NEPHROCAPS PO SCH (07:54)
[2024-12-14 08:24] LABS: Hematocrit (blood only) 28.0 % (37.0-47.0); Hemoglobin 9.1 g/dl (12.0-16.0); Immature Granulocytes # (auto) 0.31 K/uL (0.01-0.20); Immature Granulocytes % (auto) 1.4 %; Mean Corpuscular Hemoglobin 29.2 pg (25.0-34.0); Mean Corpuscular Volume 89.7 fL (80.0-100.0); Platelet Count 321 K/uL (130-400); RDW Standard Deviation 51.0 fL (36.4-46.3); Red Blood Count 3.12 M/uL (4.20-5.40); White Blood Count 22.41 K/ul (4.8-10.8)
[2024-12-14 08:39] LABS: Albumin Level 3.3 gm/dl (3.4-5.0); Anion Gap 11.0 (3-11); Bilirubin,Total 1.3 mg/dl (0.2-1.0); Calcium 7.9 mg/dl (8.6-10.3); Carbon Dioxide 31.0 mmol/L (21-32); Chloride 89.0 mmol/L (98-107); Magnesium 2.1 mg/dl (1.7-2.4); Potassium 4.4 mmol/L (3.5-5.1); Sodium 131.0 mmol/L (136-145)
[2024-12-14 08:46] LABS: Alanine Aminotransferase 11.0 U/L (7-52); Albumin Globulin Ratio 1.1 (0.9-2); Alkaline Phosphatase 278.0 U/L (34-104); Blood Urea Nitrogen 31.0 mg/dl (6-23); Creatinine Clr Calc Pharmacy 9.9 ml/min; Globulin 3.0 gm/dl (2.5-4.0); Glucose 131.0 mg/dl (70-99(Fasting)); Total Protein 6.3 gm/dl (6.0-8.3)
--- NOTE | 2024-12-14 09:44 | Hospitalist Progress Note ---
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 #Right-sided chest pain -Improved with sitting-->concerning for pericarditis -HS trops flat at 24--non specific trop elevation in setting of ESRD -Small to moderate pericardial effusion seen on chest CTA, possible pericarditis -No PE on CTA -No evidence of tamponade -ESR elevated -Etiology unclear. Typically uremic pericardial effusion is seen with BUN >60. Her BUN is 20s-30s Plan -Appreciate cardio input -TTE -Ideally would place on NSAID+Colchicine but NSAID contraindicated due to ESRD -Continue prednisone+ Colchicine for now. -Cardiac monitoring #ESRD on HD // -HD MWF. Had HD on 12/13 Plan -Appreciate nephro input -Tentatively planned for HD today -Daily labs #Moderate bilateral pleural effusions seen on chest CTA (increased when compared to prior imaging) -Chronic issue -Slightly worse than prior imaging -Requiring 2-4L NC. Previously on O2 but none currently at home Plan -Continue volume removal with HD -Await TTE #Leukocytosis -No s/s acute bacterial infection -Likely reactive from pericarditis Plan -Follow blood cultures, temp, WBC -Observe off abx at this time #History of ascending cholangitis #History of E. coli bacteremia Recently admitted at [facility] 12/02/24-12/08/24 Found to have ascending cholangitis on imaging ERCP done 12/04 with removal of 9mm stone from CBD and placement of stent Found to have E. coli bacteremia, sepsis due to acute cholangitis which was treated with Zosyn/Rocephin Stent appears to be in good positioning on CTAP imaging today, some mild new p neumobilia which is not unexpected Will need to have repeat ERCP in 2 months s/p DC for stent removal - need to arrange this with [facility] #History of pAfib Developed atrial fibrillation with RVR during admission at [facility] last month Continue toprol and eliquis #HTN BP on softer side Hold hydralazine, amlodipine and clonidine for now - will resume as able #HLD Continue statin #Graves' disease and secondary hyperparathyroidism s/p total thyroidectomy and parathyroidectomy Continue levothyroxine #GERD Continue PPI #Severe CHEYENNE Continue CPAP HS #Anemia of chronic renal failure H/H overall stable compared to prior, continue to monitor #History of GIST tumor Has not been following up with oncology, on imatinib Hold imatinib for now due to drug-drug interaction with colchicine DVT Prophylaxis: SCDs/TEDs, Eliquis Code Status: FULL CODE - As per direct discussion with patient at bedside in the ED. PCP: Jameel Reyna, I spent a total of 55 minutes coordinating, documenting, and providing care for this patient excluding time spent in the performance of separately billed services. This included personally reviewing all current laboratories and imaging studies, medical reconciliation, outpatient chart review and discussion with specialists Admission and Anticipated Discharge Date Admission Date: December 13, 2024 Subjective Feeling better today. still endorsing R sided chest pain, improved with sitting up. no F/c palp dyspnea wheez cough abd pain nvd Physical Exam Physical Exam: Vitals and labs reviewed General: chronically ill appearing NAD HEENT: EOMI, PERRLA Neck: Supple Cardiac: RRR Lungs: bibasilar rales. no wheez rhonchi or distress Abd: S NT ND BS positive : No ramos MSK: Full ROM. No obvious deformities Ext: No Edema cyanosis Skin: Warm, Dry Neuro: AOx3 No focal deficits. Psych: Normal Mood Results & Data Results & Data Vital Signs (Past 12 Hours) Vital Signs Temp Pulse Pulse Resp BP Pulse Ox O2 Del Method 12/14/24 07:45 Nasal Cannula 12/14/24 07:41 36.5 C 79 18 125/72 92 Nasal Cannula 12/14/24 07:00 72 12/14/24 01:13 98 H 12/14/24 01:04 Nasal Cannula 12/14/24 00:40 36.7 C 92 H 19 123/63 95 Nasal Cannula 12/13/24 22:15 36.8 C 93 H 18 119/66 91 Nasal Cannula 12/13/24 21:58 Nasal Cannula O2 Flow Rate 12/14/24 07:45 4 12/14/24 07:41 4 12/14/24 07:00 12/14/24 01:13 12/14/24 01:04 4 12/14/24 00:40 4 12/13/24 22:15 4 12/13/24 21:58 4 Laboratory Results Abnormal lab results 12/13/24 12/13/24 12/14/24 Range/Units 15:54 18:16 07:44 WBC 24.12 H 22.41 H (4.8-10.8) K/ul RBC 3.25 L 3.12 L (4.20-5.40) M/uL Hgb 9.5 L 9.1 L (12.0-16.0) g/dl Hct 29.0 L 28.0 L (37.0-47.0) % RDW Std Deviation 50.6 H 51.0 H (36.4-46.3) fL RDW Coeff of [place] 15.6 H 15.6 H (11.5-14.5) % MPV 9.2 L (9.4-12.4) fL Neut # (Auto) 20.67 H 19.47 H (1.40-6.50) K/uL Lymph # (Auto) 0.75 L 0.84 L (1.20-3.40) K/uL [place] # (Auto) 2.12 H 1.74 H (0.11-0.59) K/uL Immature Gran # (Auto) 0.43 H 0.31 H (0.01-0.20) K/uL ESR 82 H (0-30) mm/hr Sodium 134 L 131 L (136-145) mmol/L Chloride 89 L 89 L (98-107) mmol/L Carbon Dioxide 34 H (21-32) mmol/L BUN 31 H (6-23) mg/dl Creatinine 4.59 H* 5.95 H* D (0.6-1.2) mg/dl BUN/Creatinine Ratio 4.8 L 5.2 L (10-20) Glucose 131 H (70-99(Fasting)) mg/dl Calcium 8.4 L 7.9 L (8.6-10.3) mg/dl Total Bilirubin 1.6 H 1.3 H (0.2-1.0) mg/dl Alkaline Phosphatase 318 H 278 H (34-104) U/L Troponin I High Sens 28.8 H 24.1 H (0-14) pg/ml C-Reactive Protein 32.70 H (0-0.5) mg/dl Albumin 3.3 L (3.4-5.0) gm/dl Procalcitonin 3.06 H (0-0.5) ng/ml
[2024-12-14] MEDS: predniSONE 20 MG TAB PO SCH (09:58)
[2024-12-14] MEDS: COLCHICINE 0.6 MG TAB PO SCH (09:58)
--- NOTE | 2024-12-14 10:36 | Cardiology Consultation ---
<Statement entered by Meera Jones DO - 12/14/24 14:10> I have reviewed the advanced practitioner's documentation and agree with the plan of care. I accept the responsibility for the associated risk. pt seen in cardiology consultation due to concerns about a pericardial effusion on CT chest along with atypical chest pain pt had missed dialysis earlier this week due to diarrhea; she did have dialysis yesterday; but decided to come into hospital due to chest pain for a week echo today no pericardial effusion chest pain is atypical ok to continue treating for possible pericarditis no further changes in cardiac medications please re-consult as needed Date of Consultation December 14, 2024 Assessment & Plan (1) Chest pain: (2) PAF (paroxysmal atrial fibrillation): (3) HTN (hypertension): Plan - Blood pressure currently well-controlled -CT scan imaging per radiologist was concerning for pericardial effusion however this is not evident on echocardiogram -Would defer volume management to her cloth checker given the end-stage renal disease on hemodialysis -Maybe as her volume status improves her chest discomfort will also improve - CRP is mildly elevated may have an inflammatory component, and continue colchicine 0.6 mg twice daily - Continue metoprolol, apixaban and atorvastatin Case discussed with Dr. Jones. Please see attestation for additional recommendations. MALIA Rivera Department of Cardiology, [facility] This chart was completed in part utilizing Speech Voice Recognition Software. Grammatical errors, random word insertions, pronoun errors, and incomplete sentences are an occasional consequence of this system due to software limitations, ambient noise, and hardware issues. Any formal questions or concerns about the content, text, or information contained within the body of this dictation should be directly addressed to the provider for clarification. History of Present Illness Reason for Consultation: Chest Pain Requesting Physician: Hospitalist Attending Physician: Josef Urbina DO History of Present Illness 69-year-old female seen in consultation today in regard to chest pain. Reported right-sided chest pain for a few days; worse with inspiration and lying down. She did have recent complex admission for gallstones, sepsis. During that admission she had new onset A-fib with RVR and underwent surgical intervention with a stent placed for management of the gall stones. 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 She did have E. coli bacteremia when admitted to [place]. Dialysis 3 days/week but on Monday she was having diarrhea feeling poorly so she missed a dialysis treatment. That day she started to have right sided chest discomfort which has persisted through today. Was able to have dialysis yesterday but due to the persistent discomfort she felt that she may be still fluid overloaded so she came into the emergency room. Allergies Allergy/AdvReac Type Severity Reaction Status Date / Time levofloxacin AdvReac Severe C-DIFF Verified 12/13/24 21:05 Home Medications Medication Instructions Recorded Confirmed Type magnesium oxide 400 mg PO QAM 03/08/22 12/13/24 History amlodipine 5 mg tablet 5 mg PO BID 07/21/22 12/13/24 History ondansetron HCl 8 mg tablet 8 mg PO TID PRN PRIOR TO 07/21/22 12/13/24 History CHEMOTHERAPY MEDS vitamin B complex and vitamin C 1 cap PO DAILY 07/21/22 12/13/24 History no.20-folic acid 1 mg capsule ([place] Caps) imatinib 100 mg tablet (Gleevec) 200 mg PO QPM 09/22/22 12/13/24 History calcium acetate(phosphat bind) 667 2,001 mg PO TID 10/20/22 12/13/24 History mg capsule carboxymethylcellulose sodium 1 drp ophthalmic (eye) 6XD PRN dry 03/09/23 12/13/24 Rx (Refresh Contacts eye drops) eye(s) #12 mL omeprazole 40 mg capsule,delayed 40 mg PO DAILY 06/02/23 12/13/24 History release oxycodone-acetaminophen 5 mg-325 1 tab PO Q8H Pain 06/02/23 12/13/24 History mg tablet gabapentin 100 mg capsule 100 mg PO BID 07/16/24 12/13/24 History levothyroxine 200 mcg tablet 200 mcg PO DAILY #30 tabs 07/24/24 12/13/24 Rx calcitriol 0.5 mcg capsule 1 mcg (2 x 0.5 mcg) PO QAM #90 caps 07/30/24 12/13/24 Rx clonidine HCl 0.1 mg tablet 0.1 mg PO BID #90 tabs 08/29/24 12/13/24 Rx metoprolol tartrate 25 mg tablet 75 mg PO BID 08/29/24 12/13/24 History L.acidop,casei,lactis,rham-B.lact,zaida 1 cap PO DAILY #5 caps 10/31/24 12/13/24 Rx 625 mg (10 billion cell) capsule (Advanced Probiotic) atorvastatin 20 mg tablet 20 mg PO HS #30 tabs 10/31/24 12/13/24 Rx apixaban 2.5 mg tablet (Eliquis) 2.5 mg PO BID 12/13/24 12/13/24 History hydralazine 25 mg tablet 25 mg PO TID 12/13/24 12/13/24 History oxybutynin chloride 5 mg 5 mg PO 3XWK 12/13/24 12/13/24 History tablet,extended release 24 hr Tums chewable tab PO TID 12/14/24 History Patient History Medical History (Updated 12/14/24 @ 10:46 by MALIA Kilgore) Mediastinal mass ongoing work-up with [facility] thoracic medicine and heme/onc Secondary hyperparathyroidism Neck pain h/o UE paresthesias; pt states neck pain and upper extremity abnormal symptoms>fully resolved Thyroid nodule s/p thyroidectomy COVID-19 hx-01/29/22-not hospitalized-symptoms fully resolved Pulmonary hypertension COPD (chronic obstructive pulmonary disease) stable per pt, no longer using supplemental oxygen-states home pulse ox readings are consistently 97% or greater-pt states provider is aware Abnormal stress test 01/2021 (reversible anterior and basal lateral defect consistent with ischemia vs soft tissue attenuation artifact) per [facility] cardio records, plan for medical management and consideration for DSE at 03/2021 appt; final determination per [facility] cardio is recommendation for diagnostic cardiac catheterization not yet scheduled by patient; now advised risk > benefit per [facility] cardio Limb alert care status left arm Port-A-Cath in place has not used in a long time History of peritoneal dialysis per [facility] cardio records "...previous peritoneal dialysis catheters. At least 1 of the peritoneal dialysis catheters had to be removed because of peritonitis..." Palpitations AV fistula left upper arm (functioning), also one to left wrist, but does not function properly Chronic back pain GERD (gastroesophageal reflux disease) controlled, stable per pt Migraine Sleep apnea severe per [facility] records, no device currently > has apt soon to see about getting back on device Surgical History Hx of total thyroidectomy 06/28/22, [facility]>3 1/2 of parathyroid removed, also removed nodules that were "non cancerous" History of surgery hx perm cath insertion & removal History of appendectomy H/O cystoscopy History of laparoscopy History of bilateral tubal ligation History of kidney transplant 08/28/2016 @ [facility] (right side) functions at only 10%--d/t ESRD > follows with dr at [facility] History of cholecystectomy History of section x1 History of colonoscopy History of esophagogastroduodenoscopy (EGD) History of tooth extraction History of wisdom tooth extraction History of tonsillectomy and adenoidectomy Family History Grandmother (Paternal) Family history of diabetes mellitus Grandmother (Maternal) Family history of diabetes mellitus Family hx of colon cancer Mother Family hx of colon cancer Other No family history of adverse response to anesthesia Social History Smoking Status: Former smoker Tobacco Type: Cigarettes Second Hand Exposure: No; Do You Dip or Chew Tobacco: No; Hx Alcohol Use: No Hx Substance Use: No Preferred Language: Namibian Communication Ability: Effective Cyber Reverse Engineer Required: No Beliefs That Will Affect Care: None marital status: Current Living Situation: Spouse Current Living Situation Comment: lives at home w spouse How many Children do You have: 1 Feels Safe at Home: Yes Safety Concerns: Feels Safe At This Time Assistive Devices: CPAP Review of Systems Review of Systems: All systems reviewed & are unremarkable except as noted in HPI & below Physical Exam Constitutional: well nourished and + ill appearing; no acute distress Eyes: PERRL, conjunctivae normal, anicteric sclerae Neck: trachea midline, no thyromegaly Respiratory: normal respiratory effort, lungs clear to auscultation Cardiovascular: Rate/Rhythm: regular rate and regular rhythm Heart Sounds: normal S1 and normal S2 Vessels: normal peripheral pulses Gastrointestinal (Abdomen): normal bowel sounds, soft, nontender, no hepatosplenomegaly Percussion/Palpation: abdomen soft; abdomen nontender Musculoskeletal: no cyanosis or clubbing, extremities motor strength 5/5 Skin: no rashes, warm and dry Psychiatric: A+Ox3, euthymic affect Results & Data Vital Signs (Past 12 Hours) Vital Signs Temp Pulse Pulse Resp BP Pulse Ox O2 Del Method 12/14/24 07:45 Nasal Cannula 12/14/24 07:41 36.5 C 79 18 125/72 92 Nasal Cannula 12/14/24 07:00 72 12/14/24 01:13 98 H 12/14/24 01:04 Nasal Cannula 12/14/24 00:40 36.7 C 92 H 19 123/63 95 Nasal Cannula O2 Flow Rate 12/14/24 07:45 4 12/14/24 07:41 4 12/14/24 07:00 12/14/24 01:13 12/14/24 01:04 4 12/14/24 00:40 4 Laboratory Results Cardiac Enzymes 12/13/24 12/13/24 12/14/24 Range/Units 15:54 18:16 07:44 AST 23 17 (13-39) U/L Troponin I High Sens 28.8 H 24.1 H (0-14) pg/ml CBC 12/13/24 12/14/24 Range/Units 15:54 07:44 WBC 24.12 H 22.41 H (4.8-10.8) K/ul RBC 3.25 L 3.12 L (4.20-5.40) M/uL Hgb 9.5 L 9.1 L (12.0-16.0) g/dl Hct 29.0 L 28.0 L (37.0-47.0) % Plt Count 313 321 (130-400) K/uL Neut # (Auto) 20.67 H 19.47 H (1.40-6.50) K/uL Lymph # (Auto) 0.75 L 0.84 L (1.20-3.40) K/uL [place] # (Auto) 2.12 H 1.74 H (0.11-0.59) K/uL Eos # (Auto) 0.09 0.01 (0.00-0.50) K/uL Baso # (Auto) 0.06 0.04 (0.00-0.20) K/uL Comprehensive Metabolic Panel 12/13/24 12/14/24 Range/Units 15:54 07:44 Sodium 134 L 131 L (136-145) mmol/L Potassium 4.0 4.4 (3.5-5.1) mmol/L Chloride 89 L 89 L (98-107) mmol/L Carbon Dioxide 34 H 31 (21-32) mmol/L BUN 22 31 H (6-23) mg/dl Creatinine 4.59 H* 5.95 H* D (0.6-1.2) mg/dl Glucose 99 131 H (70-99(Fasting)) mg/dl Calcium 8.4 L 7.9 L (8.6-10.3) mg/dl AST 23 17 (13-39) U/L ALT 13 11 (7-52) U/L Alkaline Phosphatase 318 H 278 H (34-104) U/L Total Protein 6.7 6.3 (6.0-8.3) gm/dl Albumin 3.5 3.3 L (3.4-5.0) gm/dl Intake and Output 12/13/24 12/14/24 12/14/24 22:59 06:59 14:59 Intake Total 240 / 240 Output Total 0 / 0 Balance 240 / 240 Intake: Oral 240 / 240 Output: # Bowel Movements 0 / 0 Other: # Unmeasured Voids 0 Weight 85.139 kg 83.869 kg Weight Measurement Method [facility] Built in [facility] Patient Weight 12/15/24 06:59 Weight 83.869 kg Diagnostic Findings Laboratory Results WBC 22.41 K/ul (4.8-10.8) H 12/14/24 07:44 RBC 3.12 M/uL (4.20-5.40) L 12/14/24 07:44 Hgb 9.1 g/dl (12.0-16.0) L 12/14/24 07:44 Hct 28.0 % (37.0-47.0) L 12/14/24 07:44 MCV 89.7 fL (80.0-100.0) 12/14/24 07:44 MCH 29.2 pg (25.0-34.0) 12/14/24 07:44 MCHC 32.5 g/dL (32.0-36.0) 12/14/24 07:44 RDW Std Deviation 51.0 fL (36.4-46.3) H 12/14/24 07:44 RDW Coeff of [place] 15.6 % (11.5-14.5) H 12/14/24 07:44 Plt Count 321 K/uL (130-400) 12/14/24 07:44 MPV 9.4 fL (9.4-12.4) 12/14/24 07:44 Immature Gran % (Auto) 1.4 % 12/14/24 07:44 Neut % (Auto) 86.9 % 12/14/24 07:44 Lymph % (Auto) 3.7 % 12/14/24 07:44 [place] % (Auto) 7.8 % 12/14/24 07:44 Eos % (Auto) 0.0 % 12/14/24 07:44 Baso % (Auto) 0.2 % 12/14/24 07:44 Neut # (Auto) 19.47 K/uL (1.40-6.50) H 12/14/24 07:44 Lymph # (Auto) 0.84 K/uL (1.20-3.40) L 12/14/24 07:44 [place] # (Auto) 1.74 K/uL (0.11-0.59) H 12/14/24 07:44 Eos # (Auto) 0.01 K/uL (0.00-0.50) 12/14/24 07:44 Baso # (Auto) 0.04 K/uL (0.00-0.20) 12/14/24 07:44 Immature Gran # (Auto) 0.31 K/uL (0.01-0.20) H 12/14/24 07:44 ESR 82 mm/hr (0-30) H 12/13/24 15:54 Sodium 131 mmol/L (136-145) L 12/14/24 07:44 Potassium 4.4 mmol/L (3.5-5.1) 12/14/24 07:44 Chloride 89 mmol/L (98-107) L 12/14/24 07:44 Carbon Dioxide 31 mmol/L (21-32) 12/14/24 07:44 Anion Gap 11 (3-11) 12/14/24 07:44 BUN 31 mg/dl (6-23) H 12/14/24 07:44 Creatinine 5.95 mg/dl (0.6-1.2) H* D 12/14/24 07:44 Est Cr Clr Drug Dosing 9.9 ml/min 12/14/24 07:44 eGFR 7.26 12/14/24 07:44 BUN/Creatinine Ratio 5.2 (10-20) L 12/14/24 07:44 Glucose 131 mg/dl (70-99(Fasting)) H 12/14/24 07:44 Calcium 7.9 mg/dl (8.6-10.3) L 12/14/24 07:44 Phosphorus 3.5 mg/dl (2.5-4.9) 12/14/24 07:44 Magnesium 2.1 mg/dl (1.7-2.4) 12/14/24 07:44 Total Bilirubin 1.3 mg/dl (0.2-1.0) H 12/14/24 07:44 AST 17 U/L (13-39) 12/14/24 07:44 ALT 11 U/L (7-52) 12/14/24 07:44 Alkaline Phosphatase 278 U/L (34-104) H 12/14/24 07:44 Troponin I High Sens 24.1 pg/ml (0-14) H 12/13/24 18:16 C-Reactive Protein 32.70 mg/dl (0-0.5) H 12/13/24 15:54 Total Protein 6.3 gm/dl (6.0-8.3) 12/14/24 07:44 Albumin 3.3 gm/dl (3.4-5.0) L 12/14/24 07:44 Globulin 3.0 gm/dl (2.5-4.0) 12/14/24 07:44 Albumin/Globulin Ratio 1.1 (0.9-2) 12/14/24 07:44 Lipase 25 U/L (11-82) 12/13/24 15:54 Procalcitonin 3.06 ng/ml (0-0.5) H 12/13/24 15:54 Adenovirus (PCR) Not Detected (NotDetected) 12/13/24 Unknown B. pertussis DNA (PCR) Not Detected (NotDetected) 12/13/24 Unknown B.parapertussis DNA PCR Not Detected (NotDetected) 12/13/24 Unknown C. pneumoniae DNA (PCR) Not Detected (NotDetected) 12/13/24 Unknown Coronavirus OC43 (PCR) Not Detected (NotDetected) 12/13/24 Unknown Coronavirus HKU1 (PCR) Not Detected (NotDetected) 12/13/24 Unknown Coronavirus 229E (PCR) Not Detected (NotDetected) 12/13/24 Unknown SARS-CoV-2 (PCR) Not Detected (NotDetected) 12/13/24 Unknown Coronavirus NL63 (PCR) Not Detected (NotDetected) 12/13/24 Unknown Human Metapneumovir PCR Not Detected (NotDetected) 12/13/24 Unknown Influenza Type A (PCR) Not Detected (NotDetected) 12/13/24 Unknown Influenza Type B (PCR) Not Detected (NotDetected) 12/13/24 Unknown M. pneumoniae (PCR) Not Detected (NotDetected) 12/13/24 Unknown Parainfluenza 1 (PCR) Not Detected (NotDetected) 12/13/24 Unknown Parainfluenza 2 (PCR) Not Detected (NotDetected) 12/13/24 Unknown Parainfluenza 3 (PCR) Not Detected (NotDetected) 12/13/24 Unknown Parainfluenza 4 (PCR) Not Detected (NotDetected) 12/13/24 Unknown RSV (PCR) Not Detected (NotDetected) 12/13/24 Unknown Entero/Rhino (PCR) Not Detected (NotDetected) 12/13/24 Unknown Impressions Chest X-Ray 12/13/24 16:03 Chest radiograph, one view History: Hypoxia Comparison: 10/31/2024 Findings/impression: Single AP view of the chest performed. New perihilar pulmonary opacities, right greater than left, favoring pulmonary edema. There is a new small to moderate right pleural effusion. Continued retrocardiac opacity representing atelectasis or consolidation, with possible pleural effusion as well. Right chest wall port with catheter tip in the lower SVC. No pneumothorax. The cardiomediastinal silhouette appears stable. Electronically signed by Romeo Ramos 12-13-2024 4:57 PM Abdomen/Pelvis CT 12/13/24 17:16 EXAMINATION: CT of the abdomen and pelvis performed after the administration of IV contrast TECHNIQUE: Helical CT images from the lung bases through the symphysis pubis were obtained with contrast. Coronal and sagittal reformatted images were generated at a workstation for further assessment. Dose reduction techniques were achieved by using automatic exposure control and/or adjustment of mA and/or kV according to patient size and/or use of iterative reconstruction technique. COMPARISON: 10/28/2024 HISTORY: Abdominal pain FINDINGS: Liver: No suspicious liver lesions. Portal veins appear patent. Gallbladder: Cholecystectomy changes. Similar appearing intrahepatic and extrahepatic biliary dilation. There is a new common duct stent. There is some mild debris within the common bile duct. Spleen: Normal size. Pancreas: No suspicious pancreatic lesions. The pancreatic duct is not dilated. Adrenal glands: No adrenal nodules. Kidneys: No hydronephrosis or obstructing renal stones. The kidneys are severely atrophic. Bladder / Pelvic organs: Unremarkable. Bowel: No bowel obstruction. No abnormal bowel wall thickening. The appendix is surgically absent. Extensive left colonic diverticulosis without diverticulitis. Lymph nodes: No retroperitoneal, mesenteric, or pelvic lymphadenopathy. Peritoneum / Retroperitoneum: No free fluid or air within the abdomen. Vessels: No infrarenal aortic aneurysm. Bones and soft tissues: No suspicious lesion in the bones. IMPRESSION: Interval common bile duct stent placement, with continued biliary ductal dilatation. There is some new mild pneumobilia. No other acute findings. Electronically signed by Romeo Ramos 12-13-2024 6:15 PM Chest CTA 12/13/24 17:16 CT pulmonary angiogram with IV contrast History: Chest pain COMPARISON: None TECHNIQUE: CT angiography of the chest was performed without IV contrast followed by IV contrast, including 3D post processing CTA image reconstruction. Dose reduction techniques were achieved by using automatic exposure control and/or adjustment of mA and/or kV according to patient size and/or use of iterative reconstruction technique. FINDINGS: Diagnostic quality: Adequate There is no evidence for pulmonary embolism. The heart is enlarged. There is a new small to moderate pericardial effusion, with increased enhancement about the parietal and visceral pericardium, which is best seen on the abdomen/pelvis images. There are moderate bilateral pleural effusions, which are increased from 10/28/2024. Enlarged pulmonary artery suggesting pulmonary hypertension. Bibasilar confluent atelectasis. Right middle lobe atelectasis also seen. There are no abnormally enlarged hilar or mediastinal lymph nodes. The central tracheobronchial tree is clear. Limited visualized upper abdomen. No destructive osseous changes are seen. IMPRESSION: No evidence for pulmonary embolism. Small to moderate pericardial effusion is increased. There is increased enhancement of the visceral and parietal pericardium, possibly due to pericarditis. Consider uremic pericarditis in this patient with history of dialysis and renal failure. Moderate pleural effusions. Electronically signed by Romeo Ramos 12-13-2024 6:15 PM Medications Administered Current Inpatient Medications Acetaminophen (Acetaminophen 325 Mg Tab) 650 mg PO Q4H PRN PRN Reason: Pain or Fever Stop: 01/12/25 22:20 Last Admin: 12/14/24 00:44 Dose: 650 mg Apixaban (Apixaban 2.5 Mg Tab) 2.5 mg PO BID VU Stop: 01/12/25 23:29 Last Admin: 12/14/24 07:53 Dose: 2.5 mg Atorvastatin Calcium (Atorvastatin 20 Mg Tab) 20 mg PO HS VU Stop: 01/13/25 20:59 Calcitriol (Calcitriol 0.25 Mcg Capsule) 1 mcg PO QAM VU Stop: 01/13/25 08:59 Last Admin: 12/14/24 07:54 Dose: 1 mcg Calcium Acetate (Calcium Acetate 667 Mg Cap/Tab) 2,001 mg PO TIDM VU Stop: 01/13/25 07:59 Last Admin: 12/14/24 07:53 Dose: 2,001 mg Colchicine (Colchicine 0.6 Mg Tab) 0.6 mg PO BID VU Stop: 01/13/25 08:59 Last Admin: 12/14/24 09:58 Dose: 0.6 mg Gabapentin (Gabapentin 100 Mg Cap) 100 mg PO BID VU Stop: 01/13/25 08:59 Last Admin: 12/14/24 07:53 Dose: 100 mg Lactobacillus Acidophilus (Advanced Probiotic 625 Mg Capsule) 1,250 mg PO DAILY VU Stop: 01/13/25 08:59 Last Admin: 12/14/24 07:53 Dose: 1,250 mg Levothyroxine Sodium (Levothyroxine Sodium 200 Mcg Tablet) 200 mcg PO DAILYBB VU Stop: 01/13/25 06:29 Last Admin: 12/14/24 07:21 Dose: 200 mcg Magnesium Hydroxide (Magnesium Hydroxide Susp 30 Ml Udc) 30 ml PO Q12H PRN PRN Reason: Constipation Stop: 01/12/25 22:20 Magnesium Oxide (Magnesium Oxide 400 Mg Tab) 400 mg PO QAM VU Stop: 01/13/25 08:59 Last Admin: 12/14/24 07:53 Dose: 400 mg Metoprolol Tartrate (Metoprolol Tartrate 25 Mg Tab) 75 mg PO BID VU Stop: 01/12/25 23:29 Last Admin: 12/14/24 07:54 Dose: 75 mg Ondansetron HCl (Ondansetron Inj 2 Mg/Ml 2 Ml Vial) 4 mg IV Q6H PRN PRN Reason: Nausea Stop: 01/12/25 22:20 Oxybutynin Chloride (Oxybutynin Chloride Xl 5 Mg Tabcr) 5 mg PO MoWeFr@0900 VU Stop: 01/15/25 08:59 Oxycodone/Acetaminophen (Oxycodone/Acetaminophen 5mg/325mg Tab) 1 tab PO Q8H PRN PRN Reason: pain Stop: 12/27/24 23:29 Last Admin: 12/14/24 07:51 Dose: 1 tab Pantoprazole Sodium (Pantoprazole 40 Mg Tab) 40 mg PO DAILY VU Stop: 01/13/25 08:59 Last Admin: 12/14/24 07:54 Dose: 40 mg Polyethylene Glycol (Polyethylene (Miralax) 17 Gm Pack) 17 gm PO DAILY PRN PRN Reason: Constipation Stop: 01/12/25 22:20 Prednisone (Prednisone 20 Mg Tab) 20 mg PO DAILY VU Stop: 01/13/25 08:59 Last Admin: 12/14/24 09:58 Dose: 20 mg Prednisone (Prednisone 20 Mg Tab) 20 mg PO DAILY VU Stop: 01/12/25 20:59 Last Admin: 12/13/24 23:13 Dose: 20 mg Vitamin B Complex/Folic Acid (Nephrocaps) 1 cap PO DAILY VU Stop: 01/13/25 08:59 Last Admin: 12/14/24 07:54 Dose: 1 cap PG Care Time/CCT Total # of Minutes Spent Total Time Spent with Patient: Total time spent is greater than 50% in coordination of care (as documented) at patient's floor/unit and/or counseling patient: Coding Level of Care Code 47541 IN/OBS CONSULT LVL 5,80M Medical Decision Making High Complexity Diagnoses Chest pain R07.9 PAF (paroxysmal atrial fibrillation) I48.0 HTN (hypertension) I10
[2024-12-14] MEDS ORDERED: SODIUM CHLORIDE 0.9% 1,000 ML IV PRN (10:43)
--- NOTE | 2024-12-14 11:57 | Nephrology Consultation ---
Date of Consultation December 14, 2024 Assessment & Plan (1) ESRD on hemodialysis: patient with a ESRD on dialysis Monday. She is now admitted chest pain and evidence of volume overload. She has mild to moderate pericardial effusion as well as bilateral pleural effusions on chest CT. Patient is requiring 4 L of oxygen. Will dialyze her today for 4-1/2 hours target UF 4 L. next dialysis will be Monday (2) Pericardial effusion: patient with a mild to moderate pericardial effusion on chest imaging. Patient appears hypervolemic overall. Okay to use prednisone and colchicine if needed. Will optimize volume management with dialysis as above. Discussed case with Dr. Victoria History of Present Illness Reason for Consultation: ESRD Requesting Physician: Josef Urbina DO Attending Physician: Josef Urbina DO History of Present Illness This is a 69-year-old female being seen for end-stage renal disease on dialysis. Past medical history of ESRD s/p failed DDKT on HD M/W/F, chronic hypoxic respiratory failure, severe COPD, Graves' disease, secondary hyperparathyroidism s/p total thyroidectomy and parathyroidectomy, HLD, HTN, GIST tumor, severe CHEYENNE on CPAP, pulmonary HTN and atrial fibrillation among others who was admitted with right-sided chest pain. Patient is dialyzed on Monday at [facility]. She had outpatient dialysis on Monday. Patient is still complains of shortness of breath. Legs are mildly swollen. Chest CT showed [id number] pericardial effusion. She also has small pleural effusions. He is on oxygen 4 L nasal cannula. No vomiting or diarrhea. Labs notable for sodium of 131, potassium 4.4, creatinine 5.9. She has a anemia with hemoglobin of 9.1. Allergies Allergy/AdvReac Type Severity Reaction Status Date / Time levofloxacin AdvReac Severe C-DIFF Verified 12/13/24 21:05 Home Medications Medication Instructions Recorded Confirmed Type magnesium oxide 400 mg PO QAM 03/08/22 12/13/24 History amlodipine 5 mg tablet 5 mg PO BID 07/21/22 12/13/24 History ondansetron HCl 8 mg tablet 8 mg PO TID PRN PRIOR TO 07/21/22 12/13/24 History CHEMOTHERAPY MEDS vitamin B complex and vitamin C 1 cap PO DAILY 07/21/22 12/13/24 History no.20-folic acid 1 mg capsule ([place] Caps) imatinib 100 mg tablet (Gleevec) 200 mg PO QPM 09/22/22 12/13/24 History calcium acetate(phosphat bind) 667 2,001 mg PO TID 10/20/22 12/13/24 History mg capsule carboxymethylcellulose sodium 1 drp ophthalmic (eye) 6XD PRN dry 03/09/23 12/13/24 Rx (Refresh Contacts eye drops) eye(s) #12 mL omeprazole 40 mg capsule,delayed 40 mg PO DAILY 06/02/23 12/13/24 History release oxycodone-acetaminophen 5 mg-325 1 tab PO Q8H Pain 06/02/23 12/13/24 History mg tablet gabapentin 100 mg capsule 100 mg PO BID 07/16/24 12/13/24 History levothyroxine 200 mcg tablet 200 mcg PO DAILY #30 tabs 07/24/24 12/13/24 Rx calcitriol 0.5 mcg capsule 1 mcg (2 x 0.5 mcg) PO QAM #90 caps 07/30/24 12/13/24 Rx clonidine HCl 0.1 mg tablet 0.1 mg PO BID #90 tabs 08/29/24 12/13/24 Rx metoprolol tartrate 25 mg tablet 75 mg PO BID 08/29/24 12/13/24 History L.acidop,casei,lactis,rham-B.lact,zaida 1 cap PO DAILY #5 caps 10/31/24 12/13/24 Rx 625 mg (10 billion cell) capsule (Advanced Probiotic) atorvastatin 20 mg tablet 20 mg PO HS #30 tabs 10/31/24 12/13/24 Rx apixaban 2.5 mg tablet (Eliquis) 2.5 mg PO BID 12/13/24 12/13/24 History hydralazine 25 mg tablet 25 mg PO TID 12/13/24 12/13/24 History oxybutynin chloride 5 mg 5 mg PO 3XWK 12/13/24 12/13/24 History tablet,extended release 24 hr Tums chewable tab PO TID 12/14/24 History Patient History Medical History (Updated 12/14/24 @ 10:46 by MALIA Kilgore) Mediastinal mass ongoing work-up with [facility] thoracic medicine and heme/onc Secondary hyperparathyroidism Neck pain h/o UE paresthesias; pt states neck pain and upper extremity abnormal symptoms>fully resolved Thyroid nodule s/p thyroidectomy COVID-19 hx-01/29/22-not hospitalized-symptoms fully resolved Pulmonary hypertension COPD (chronic obstructive pulmonary disease) stable per pt, no longer using supplemental oxygen-states home pulse ox readings are consistently 97% or greater-pt states provider is aware Abnormal stress test 01/2021 (reversible anterior and basal lateral defect consistent with ischemia vs soft tissue attenuation artifact) per [facility] cardio records, plan for medical management and consideration for DSE at 03/2021 appt; final determination per [facility] cardio is recommendation for diagnostic cardiac catheterization not yet scheduled by patient; now advised risk > benefit per [facility] cardio Limb alert care status left arm Port-A-Cath in place has not used in a long time History of peritoneal dialysis per [facility] cardio records "...previous peritoneal dialysis catheters. At least 1 of the peritoneal dialysis catheters had to be removed because of peritonitis..." Palpitations AV fistula left upper arm (functioning), also one to left wrist, but does not function properly Chronic back pain GERD (gastroesophageal reflux disease) controlled, stable per pt Migraine Sleep apnea severe per [facility] records, no device currently > has apt soon to see about getting back on device Surgical History Hx of total thyroidectomy 06/28/22, [facility]>3 1/2 of parathyroid removed, also removed nodules that were "non cancerous" History of surgery hx perm cath insertion & removal History of appendectomy H/O cystoscopy History of laparoscopy History of bilateral tubal ligation History of kidney transplant 08/28/2016 @ [facility] [place] ([place] side) functions at only 10%--d/t ESRD > follows with dr at [facility] History of cholecystectomy History of section x1 History of colonoscopy History of esophagogastroduodenoscopy (EGD) History of tooth extraction History of wisdom tooth extraction History of tonsillectomy and adenoidectomy Family History Grandmother (Paternal) Family history of diabetes mellitus Grandmother (Maternal) Family history of diabetes mellitus Family hx of colon cancer Mother Family hx of colon cancer Other No family history of adverse response to anesthesia Social History Smoking Status: Former smoker Tobacco Type: Cigarettes Second Hand Exposure: No; Do You Dip or Chew Tobacco: No; Hx Alcohol Use: No Hx Substance Use: No Preferred Language: Bangladeshi Communication Ability: Effective Quality Review Trainer Required: No Beliefs That Will Affect Care: None marital status: Current Living Situation: Spouse Current Living Situation Comment: lives at home w spouse How many Children do You have: 1 Feels Safe at Home: Yes Safety Concerns: Feels Safe At This Time Assistive Devices: CPAP Review of Systems 2 Review of Systems: All other systems were reviewed and negative except as noted in HPI Physical Exam 2 Physical Exam: General exam: Appears comfortable, no acute distress HEENT: Pupils are equal and reactive to light Neck: No JVD, neck is supple trachea is midline Respiratory system: reduced breath sounds and crackles in the bases bilaterally. Gastrointestinal: Abdomen is soft, non distended, non tender, bowel sounds are present CVS: Regular rate and rhythm. No murmurs, rubs or gallops Musculoskeletal: No joint or muscle tenderness Extremities: Non tender, 1+ edema, peripheral pulses are present Neuro: Oriented, no tremors, no focal neurological deficits Skin: No rashes Results & Data Vital Signs (Past 12 Hours) Vital Signs Temp Pulse Pulse Resp BP Pulse Ox O2 Del Method 12/14/24 11:37 36.6 C 68 18 135/76 95 Nasal Cannula 12/14/24 07:45 Nasal Cannula 12/14/24 07:41 36.5 C 79 18 125/72 92 Nasal Cannula 12/14/24 07:00 72 12/14/24 01:13 98 H 12/14/24 01:04 Nasal Cannula 12/14/24 00:40 36.7 C 92 H 19 123/63 95 Nasal Cannula O2 Flow Rate 12/14/24 11:37 4 12/14/24 07:45 4 12/14/24 07:41 4 12/14/24 07:00 12/14/24 01:13 12/14/24 01:04 4 12/14/24 00:40 4 Laboratory Results 12/14/24 07:44 12/13/24 12/14/24 15:54 07:44 WBC 24.12 H 22.41 H RBC 3.25 L 3.12 L MCV 89.2 89.7 MCH 29.2 29.2 MCHC 32.8 32.5 RDW Std Deviation 50.6 H 51.0 H RDW Coeff of [place] 15.6 H 15.6 H Plt Count 313 321 MPV 9.2 L 9.4 Phosphorus 3.5 Albumin 3.5 3.3 L
[2024-12-14 12:40] LABS: Hypersegmented Neutrophils 1+
--- NOTE | 2024-12-14 12:42 | XCELERA ---
[id number]
[2024-12-14] MEDS: HEPARIN SOD (PORCINE) 1000 UNIT/ML IV SCH (15:03)
[2024-12-14] MEDS: HEPARIN SOD (PORCINE) 1000 UNIT/ML IV ONE (15:03)
[2024-12-14] MEDS ORDERED: CALCIUM CARBONATE 1250MG TAB PO SCH (21:00)
[2024-12-14] MEDS: ATORVASTATIN 20 MG TAB PO SCH (22:02)
[2024-12-15 06:34] LABS: Hematocrit (blood only) 24.8 % (37.0-47.0); Hemoglobin 8.0 g/dl (12.0-16.0); Immature Granulocytes # (auto) 0.24 K/uL (0.01-0.20); Immature Granulocytes % (auto) 1.1 %; Mean Corpuscular Hemoglobin 29.1 pg (25.0-34.0); Mean Corpuscular Volume 90.2 fL (80.0-100.0); Platelet Count 373 K/uL (130-400); RDW Standard Deviation 50.9 fL (36.4-46.3); Red Blood Count 2.75 M/uL (4.20-5.40); White Blood Count 21.86 K/ul (4.8-10.8)
[2024-12-15 07:06] LABS: Anion Gap 7.0 (3-11); Blood Urea Nitrogen 18.0 mg/dl (6-23); Calcium 8.7 mg/dl (8.6-10.3); Carbon Dioxide 33.0 mmol/L (21-32); Chloride 97.0 mmol/L (98-107); Creatinine Clr Calc Pharmacy 14.4 ml/min; Glucose 116.0 mg/dl (70-99(Fasting)); Potassium 4.4 mmol/L (3.5-5.1); Sodium 137.0 mmol/L (136-145)
[2024-12-15 07:18] VITALS: BP 120/65; PULSE 77; RESP 18; TEMP 98.2; O2SAT 94
--- NOTE | 2024-12-15 09:35 | Discharge Summary ---
Discharge Summary Date of Service December 15, 2024 Principal Dx & Hospital Course #1 = Principal Diagnosis (1) Chest pain: (2) Pericardial effusion: (3) Elevated troponin: (4) ESRD on hemodialysis: (5) Pleural effusion, bilateral: Plan Patient is a medically complex 69-year-old female with past medical history significant for ESRD secondary to HTN/reflux nephropathy s/p failed DDKT on HD M/W/F, chronic hypoxic respiratory failure, severe COPD, Graves' disease and secondary hyperparathyroidism s/p total thyroidectomy and parathyroidectomy, HLD, HTN, GIST tumor, severe CHEYENNE on CPAP, pulmonary HTN, uterine leiomyoma, migraines, Butt's palsy, anemia of chronic renal failure and history of VRE UTI who presented to the ED with complaint of right-sided chest pain. Chest pain improved with sitting. ESR elevated. She was admitted for concern for pericarditis. CTA chest neg for PE or PNA but showed ? pericardial effusion. TTE did not show any effusion however. Cardio was consulted and recommended colchicine and prednisone. Her chest pain completely resolved today. She will continue a prednisone taper and colchicine. She follows with cardio as OP and she will call their office tomorrow to schedule a follow up appointment within the next two weeks. Her OP forging operator can decide duration of treatment for pericarditis. She was also found to have moderate pleural effusions on CT, increased from small on prior imaging. She missed an HD session and was volume overloaded on admission. nephrology was consulted and she had an HD session on 12/14. She required 2-4L NC on admission. She was not in resp failure. She is on room air today and feels well. She will get her usual HD tomorrow. She demands to be discharged today. D/w on phone who agrees with plan. vitals and labs are stable on day of discharge. O2 personally checked by author and she is 92-94% on room air. She still has home O2 even though she hasn't used it in a while. She will f/u with her PCP in 1-2 weeks. Her Gleevac will be held until she is either off colchicine or she discusses with her oncologist. She will need a repeat CXR in around 4 weeks to assess her pleural effusions. #Right-sided chest pain -Improved with sitting-->concerning for pericarditis -HS trops flat at 24--non specific trop elevation in setting of ESRD -Small to moderate pericardial effusion seen on chest CTA, possible pericarditis -No PE on CTA -No evidence of tamponade -ESR elevated -Etiology unclear. Typically uremic pericardial effusion is seen with BUN >60. Her BUN is 20s-30s Plan -Appreciate cardio input -TTE -Ideally would place on NSAID+Colchicine but NSAID contraindicated due to ESRD -Continue prednisone+ Colchicine for now. -Cardiac monitoring #ESRD on HD M/W/F -HD MWF. Had HD on 12/13 Plan -Appreciate nephro input -Tentatively planned for HD today -Daily labs #Moderate bilateral pleural effusions seen on chest CTA (increased when compared to prior imaging) -Chronic issue -Slightly worse than prior imaging -Requiring 2-4L NC. Previously on O2 but none currently at home Plan -Continue volume removal with HD -Await TTE #Leukocytosis -No s/s acute bacterial infection -Likely reactive from pericarditis Plan -Follow blood cultures, temp, WBC -Observe off abx at this time #History of ascending cholangitis #History of E. coli bacteremia Recently admitted at [facility] 12/02/24-12/08/24 Found to have ascending cholangitis on imaging ERCP done 12/04 with removal of 9mm stone from CBD and placement of stent Found to have E. coli bacteremia, sepsis due to acute cholangitis which was treated with Zosyn/Rocephin Stent appears to be in good positioning on CTAP imaging today, some mild new pneumobilia which is not unexpected Will need to have repeat ERCP in 2 months s/p DC for stent removal - need to arrange this with [facility] GI #History of pAfib Developed atrial fibrillation with RVR during admission at [facility] last month Continue toprol and eliquis #HTN BP on softer side Hold hydralazine, amlodipine and clonidine for now - will resume as able #HLD Continue statin #Graves' disease and secondary hyperparathyroidism s/p total thyroidectomy and parathyroidectomy Continue levothyroxine #GERD Continue PPI #Severe CHEYENNE Continue CPAP HS #Anemia of chronic renal failure H/H overall stable compared to prior, continue to monitor #History of GIST tumor Has not been following up with oncology, on imatinib Hold imatinib for now due to drug-drug interaction with colchicine DVT Prophylaxis: SCDs/TEDs, Eliquis Code Status: FULL CODE - As per direct discussion with patient at bedside in the ED. PCP: Jameel Reyna, I spent a total of 49 minutes coordinating, documenting, and providing care for this patient excluding time spent in the performance of separately billed services. This included personally reviewing all current laboratories and imaging studies, medical reconciliation, outpatient chart review and discussion with specialists Notes For Next Care Provider Medication Changes From Visit Gleevac held as above Colchicine and prednisone supply given for 2 weeks. her forging operator will then assume management Admission HPI Per Admitting Provider Patient is a medically complex 69-year-old female with past medical history significant for ESRD secondary to HTN/reflux nephropathy s/p failed DDKT on HD M/W/F, chronic hypoxic respiratory failure, severe COPD, Graves' disease and secondary hyperparathyroidism s/p total thyroidectomy and parathyroidectomy, HLD, HTN, GIST tumor, severe CHEYENNE on CPAP, pulmonary HTN, history of tachypalpitations, uterine leiomyoma, migraines, Butt's palsy, anemia of chronic renal failure and history of VRE UTI who presented to the ED with complaint of right-sided chest pain. History obtained from the patient, patient's significant other at bedside, discussion with ED provider and associated chart review. Endorses right sided chest pain for the past couple of days. Primarily under the right breast. Sharp at times. Worse with deep inspiration and lying down. Denies any shortness of breath, cough, fever/chills or sputum production. Completed dialysis session earlier today. Reports minimal urine production. Denies any dysuria or hematuria. Passing bowels okay. Denies using any supplemental O2 at home. Mentions she was admitted at [facility] last month for gallstones and had a stent placed. Also had a bout of atrial fibrillation during that confinement, started on beta-darrell therapy and Eliquis. Discharge Exam Vitals and labs reviewed General: Well appearing, NAD HEENT: EOMI, PERRLA Neck: Supple Cardiac: RRR no rubs gallops or murmurs Lungs:faint bibasilar rales. improved. no rhonchi wheez or distress Abd: S NT ND BS positive : Deffered MSK: Full ROM. No obvious deformities Ext: trace Edema Skin: Warm, Dry Neuro: AOx3 No focal deficits. Psych: Normal Mood Updated Medication List Medication Instructions Recorded Confirmed Type magnesium oxide 400 mg PO QAM 03/08/22 12/13/24 History amlodipine 5 mg tablet 5 mg PO BID 07/21/22 12/13/24 History ondansetron HCl 8 mg tablet 8 mg PO TID PRN PRIOR TO 07/21/22 12/13/24 History CHEMOTHERAPY MEDS vitamin B complex and vitamin C 1 cap PO DAILY 07/21/22 12/13/24 History no.20-folic acid 1 mg capsule ([place] Caps) imatinib 100 mg tablet (Gleevec) 200 mg PO QPM 09/22/22 12/13/24 History calcium acetate(phosphat bind) 667 2,001 mg PO TID 10/20/22 12/13/24 History mg capsule carboxymethylcellulose sodium 1 drp ophthalmic (eye) 6XD PRN dry 03/09/23 12/13/24 Rx (Refresh Contacts eye drops) eye(s) #12 mL omeprazole 40 mg capsule,delayed 40 mg PO DAILY 06/02/23 12/13/24 History release oxycodone-acetaminophen 5 mg-325 1 tab PO Q8H Pain 06/02/23 12/13/24 History mg tablet gabapentin 100 mg capsule 100 mg PO BID 07/16/24 12/13/24 History levothyroxine 200 mcg tablet 200 mcg PO DAILY #30 tabs 07/24/24 12/13/24 Rx calcitriol 0.5 mcg capsule 1 mcg (2 x 0.5 mcg) PO QAM #90 caps 07/30/24 12/13/24 Rx clonidine HCl 0.1 mg tablet 0.1 mg PO BID #90 tabs 08/29/24 12/13/24 Rx metoprolol tartrate 25 mg tablet 75 mg PO BID 08/29/24 12/13/24 History L.acidop,casei,lactis,rham-B.lact,zaida 1 cap PO DAILY #5 caps 10/31/24 12/13/24 Rx 625 mg (10 billion cell) capsule (Advanced Probiotic) atorvastatin 20 mg tablet 20 mg PO HS #30 tabs 10/31/24 12/13/24 Rx apixaban 2.5 mg tablet (Eliquis) 2.5 mg PO BID 12/13/24 12/13/24 History hydralazine 25 mg tablet 25 mg PO TID 12/13/24 12/13/24 History oxybutynin chloride 5 mg 5 mg PO 3XWK 12/13/24 12/13/24 History tablet,extended release 24 hr Tums chewable tab PO TID 12/14/24 History colchicine 0.6 mg tablet (Colcrys) 0.6 mg PO BID 14 days #28 tabs 12/15/24 Rx prednisone 20 mg tablet See Taper PO DAILY 14 days #21 tabs 12/15/24 Rx Hospital Stay Data Consultations 12/13/24 19:07 ED Decision to Admit Stat 12/13/24 20:25 Consult Cardiology Routine Consult Nephrology Routine 12/13/24 20:30 HIM [Consult Health Information Management] Routine Diagnostic Imagining Performed 12/13/24 17:16 CT abd pelvis IV con only Stat CT for pulmonary embolism PE [CT angio chest PE protocol] Stat Pending Results Patient Have Any Pending Studies at Discharge: No Discharge Instructions Given to Patient (Per Discharging Provider) You were admitted for pericarditis. Your symptoms improved on colchicine and prednisone. Please continue taking as prescribed and call your forging operator monday for an appointment LO. Your forging operator will then manage these medications. GO to your regularly scheduled dialysis session tomorrow. Please ask your PCP for a repeat chest x ray in 4 weeks to assess the fluid around your lungs (pleural effusions). Do not take your gleevac until you discuss its safety with colchicine with your oncologist. Total Time Total Time Spent Total Time Spent (In Minutes): 49
--- NOTE | 2024-12-15 10:25 | Nephrology Progress Note ---
Date of Service December 15, 2024 Assessment & Plan (1) ESRD on hemodialysis: Plan: patient with a ESRD on dialysis Monday. She is now admitted chest pain and evidence of volume overload. She was found to have mild to moderate pericardial effusion as well as bilateral pleural effusions on chest CT. Patient is s/p dialysis 12/14 for 4-1/2 hours target UF 4 L. next dialysis will be Monday. From renal stand point she can be discharged today to continue dialysis out patient (2) Pericardial effusion: Plan: patient with a mild to moderate pericardial effusion on chest imaging. Echo showed no pericardial effusion. Patient was hypervolemic overall. volume status better after HD. Will optimize volume management with dialysis as above. Admission and Anticipated Discharge Date Admission Date: December 13, 2024 Subjective Seen for ESRD. She feels better today after HD and 4 litre UF. she is sating well on RA. She wants to go home. Review of Systems 2 Review of Systems: All other systems were reviewed and negative except as noted in HPI Physical Exam 2 Physical Exam: General exam: Appears comfortable, no acute distress HEENT: Pupils are equal and reactive to light Neck: No JVD, neck is supple trachea is midline Respiratory system: reduced breath sounds and crackles in the bases bilaterally. Gastrointestinal: Abdomen is soft, non distended, non tender, bowel sounds are present CVS: Regular rate and rhythm. No murmurs, rubs or gallops Musculoskeletal: No joint or muscle tenderness Extremities: Non tender, 1+ edema, peripheral pulses are present Neuro: Oriented, no tremors, no focal neurological deficits Skin: No rashes Results & Data Vital Signs (Past 12 Hours) Vital Signs Temp Pulse Resp BP Pulse Ox O2 Del Method O2 Flow Rate 12/15/24 08:00 Nasal Cannula 1 12/15/24 07:17 36.8 C 77 18 120/65 94 Nasal Cannula 1 12/15/24 03:50 36.9 C 81 20 145/74 H 92 Nasal Cannula 1 12/14/24 22:55 36.1 C L 82 20 119/79 94 Nasal Cannula 1 Laboratory Results 12/15/24 05:52 12/15/24 05:52 WBC 21.86 H RBC 2.75 L MCV 90.2 MCH 29.1 MCHC 32.3 RDW Std Deviation 50.9 H RDW Coeff of [place] 15.7 H Plt Count 373 MPV 9.5
[2024-12-15] MEDS ORDERED: COLCHICINE 0.6 MG TAB PO SCH (11:15)
[2024-12-15] MEDS: COLCHICINE 0.6 MG TAB PO ONE (11:52)
[2024-12-16] MEDS ORDERED: OXYBUTYNIN CHLORIDE XL 5 MG TABCR PO SCH (09:00)
== END 2024-12-15 12:22 | disposition home or self-care (01) | DRG 313 ==
LOC: ED 15:36 → SUATTDRO 20:48 → 2E 20:48

== ENCOUNTER 2025-01-24 08:05 | Inpatient (IN) ==
--- NOTE | 2025-01-24 09:10 | Emergency Department Note ---
Impression & Plan Anemia, CKD (chronic kidney disease) requiring chronic dialysis, Neck pain, Non-compliance ED Provider Note ED Provider Note NAME: JESUS CAO AGE:69 SEX: Female : 1955 ARRIVES VIA: private vehicle INFORMANT: Patient ED PROVIDER(s): Fide Emmanuel DO CHIEF COMPLAINT: Referred here by blow molding machine operator HPI: This is a 62-year-old female presents the Emergency Department states that she was called by her blow molding machine operator and told to come here due to blood work she had drawn in her 90s today at dialysis. She states she was told that her red blood cell counts were low and she needed a blood work. States she typically goes Monday, has a monitor Monday. She states she did not go Monday due to neck pain. She states her neck pain is chronic because she has "bad disks" in her neck. She states Monday she had to discontinue her treatment early because of pain in the neck from sitting in the chair is at dialysis. She states this morning she was scheduled to have an AV fistulogram however could not complete that yet due to the pain in her neck. She states she was not planning on going to dialysis either however received a phone call from her dialysis team regarding the blood work that had been drawn on 10 September. She states she does take Plavix, no other blood thinners. She states she has not noted bleeding from any source. PAST MEDICAL HISTORY:See Below PAST SURGICAL HISTORY:See Below FAMILY HISTORY:See Below SOCIAL HISTORY:See Below HOME MEDICATIONS:See Below ALLERGIES:See Below VITALS:See Below PHYSICAL EXAMINATION: GENERAL: alert, well appearing, well nourished, no distress, non-toxic EYE EXAM: normal conjunctiva, PERRL and EOM's grossly intact OROPHARYNX: no exudate, no erythema, lips, buccal mucosa, and tongue normal and mucous membranes are moist NECK: supple, no nuchal rigidity, no adenopathy, non-tender LUNGS: Clear to auscultation. Normal chest wall mechanics, no w/r/r HEART: no murmurs, S1 normal and S2 normal ABDOMEN: abdomen soft, non-tender, normo-active bowel sounds, no masses, no rebound or guarding. SKIN: no rashes, petechiae, orbruising UPPER EXTREMITIES: upper extremities are grossly normal. FROM, nml pulses b/l. Fistula noted on proximal left upper extremity. There is distal edema in the left upper extremity additionally which patient states has been there from some time and was the reason for the fistulogram that was originally ordered. LOWER EXTREMITIES: No pitting edema. FROM, nml pulses b/l. NEURO EXAM: Normal sensorium, cranial nerves II-XII grossly intact, normal speech, mild left facial droop - which the patient states is chronic,nogross weakness of arms, no gross weakness of legs. Gross sensation intact. No ataxia. Vital Signs: reviewed and remarkable Differential Diagnosis: Anemia, occult infection, GI bleed, electrolyte abnormality, dehydration, medication ADR, nausea, noncompliance, as well as others were considered MEDICAL DECISION MAKING: This a 69-year-old female who presents emergency department after be instructed to come here from the staff activated due to abnormal labs on Monday showing worsening anemia. Patient does have chronic anemia on review of EMR. Patient denied any other new or evolving symptoms. I did ask case management to contact [facility] staff to confirm which she was told. He also states she has a history of noncompliance. Labs drawn and sent, IV established, EKG and chest ray performed at bedside and interpreted by me and the patient was monitored on telemetry. Her hemoglobin today was noted to be 7.3 which is the same as Monday. After further discussion, case reviewed with Dr. Goodwin of nephrology who is in agreement with plan for admission and will plan on dialyzing the patient. Type and screen drawn and sent however Dr. Goodwin trying to evaluate need for blood transfusion in the setting of known chronic anemia. Patient denied any symptoms concerning for acute blood loss. Case discussed with Dr. Peralta, [facility] hospitalist team. Consultation(s): [id number]: I asked case mgmt to contact [facility] to discuss recent events. They states she is typically noncompliant with treatments. They did confirm that there lab test from Monday did show a pretreatment anemia of 7.3 and when she called them to states that she was not coming in today for her dialysis treatment they recommended she come here. Her regular blow molding machine operator is Dr. Sandra. 1134: Dr. Goodwin, nephrology, notified via [facility] [employer] given need for HD. She is aware and will plan for HD today. 1156: Discussed with Dr. Peralta, [facility] hospitalist team, for additional evaluation and management. ER Treatment Provided: See below Diagnostics Interpreted By Me: -ECG: Normal sinus at 73, normal axis, normal intervals, no acute ST/T wave changes -Cardiac Monitoring: An order was placed for continuous cardiac monitoring. The monitor shows a rate of 86 with normal sinus rhythm. -Laboratory studies: As stated above and show below. -Imaging studies: X-ray Chest: A single view study of the chest was reviewed and was negative for cardiomegaly, focal infiltrate, effusion, or wide mediastinum. Increased interstitial markings bilaterally. Triage Nursing Note Reviewed Prior/Outside Records Reviewed -outpatient [facility] office visit from December 2024 reviewed Past Med/Surg History Problem List (Updated 01/24/25 @ 17:45 by Tori Friedman MD, PhD) History of biliary stent insertion History of pericarditis Acute on chronic anemia Non-compliance (Acute) Neck pain (Acute) CKD (chronic kidney disease) requiring chronic dialysis (Acute) Anemia (Acute) PAF (paroxysmal atrial fibrillation) Pleural effusion, bilateral Pericardial effusion Chest pain Acute hypoxic respiratory failure (Acute) Pleural effusion (Acute) Acute pericarditis due to uremia (Acute) Pericarditis (Acute) Acute pericardial effusion (Acute) NSTEMI (non-ST elevated myocardial infarction) Dyslipidemia, goal LDL below 70 Uncontrolled hypertension Elevated troponin Pulmonary edema due to fluid overload Uremic encephalopathy Uremia Acute hyperkalemia (Acute) Hypothyroidism Hot flashes Dialysis AV fistula malfunction Anemia (Acute) ESRD on hemodialysis (Acute) Hypocalcemia (Acute) 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 Encounter for pre-operative examination Hypertensive urgency (Acute) Abnormal finding on MRI of brain (Acute) Chronic migraine (Acute) CKD (chronic kidney disease) (Acute) Hypertensive crisis Dyspnea on exertion Essential hypertension (Chronic) Morbid obesity Hypoxia (Acute) Sleep apnea Hypercalcemia Hemodialysis catheter malfunction DVT prophylaxis UTI (urinary tract infection) Nausea Diarrhea Sepsis Hypotension (Acute) UTI (urinary tract infection) (Acute) Tachycardia (Acute) Weakness (Acute) Diaphoresis (Acute) Central venous catheter in place Dialysis AV fistula malfunction Post-surgical hypothyroidism S/P thyroidectomy S/P parathyroidectomy (Acute) ESRD (end stage renal disease) on dialysis (Chronic) Hyperkalemia (Acute) Abdominal pain (Acute) Dilated bile duct (Acute) Pyelonephritis (Acute) Bladder wall thickening Hypoxia (Acute) Fluid overload (Acute) Hypocalcemia (Acute) Failed kidney transplant 2017 ESRD (end stage renal disease) on dialysis (Chronic) MWF at [facility] in [place] HTN (hypertension) (Chronic) HLD (hyperlipidemia) (Chronic) Anemia in chronic kidney disease (Chronic) Hypothyroidism (Chronic) s/p thyroidectomy at [facility] 06/28/22 Medical History Mediastinal mass ongoing work-up with [facility] thoracic medicine and heme/onc Secondary hyperparathyroidism Neck pain h/o UE paresthesias; pt states neck pain and upper extremity abnormal symptoms>fully resolved Thyroid nodule s/p thyroidectomy COVID-19 hx-01/29/22-not hospitalized-symptoms fully resolved Pulmonary hypertension COPD (chronic obstructive pulmonary disease) stable per pt, no longer using supplemental oxygen-states home pulse ox readings are consistently 97% or greater-pt states provider is aware Abnormal stress test 01/2021 (reversible anterior and basal lateral defect consistent with ischemia vs soft tissue attenuation artifact) per [facility] cardio records, plan for medical management and consideration for DSE at 03/2021 appt; final determination per [facility] cardio is recommendation for diagnostic cardiac catheterization not yet scheduled by patient; now advised risk > benefit per [facility] cardio Limb alert care status left arm Port-A-Cath in place has not used in a long time History of peritoneal dialysis per [facility] cardio records "...previous peritoneal dialysis catheters. At least 1 of the peritoneal dialysis catheters had to be removed because of peritonitis..." Palpitations AV fistula left upper arm (functioning), also one to left wrist, but does not function properly Chronic back pain GERD (gastroesophageal reflux disease) controlled, stable per pt Migraine Sleep apnea severe per [facility] records, no device currently > has apt soon to see about getting back on device Surgical History Hx of total thyroidectomy 06/28/22, [facility]>3 1/2 of parathyroid removed, also removed nodules that were "non cancerous" History of surgery hx perm cath insertion & removal History of appendectomy H/O cystoscopy History of laparoscopy History of bilateral tubal ligation History of kidney transplant 08/28/2016 @ [facility] (right side) functions at only 10%--d/t ESRD > follows with dr at [facility] History of cholecystectomy History of section x1 History of colonoscopy History of esophagogastroduodenoscopy (EGD) History of tooth extraction History of wisdom tooth extraction History of tonsillectomy and adenoidectomy Family History Grandmother (Paternal) Family history of diabetes mellitus Grandmother (Maternal) Family history of diabetes mellitus Family hx of colon cancer Mother Family hx of colon cancer Other No family history of adverse response to anesthesia Social History Smoking Status: Former smoker Tobacco Type: Cigarettes Second Hand Exposure: No; Do You Dip or Chew Tobacco: No; Hx Alcohol Use: No Hx Substance Use: No Preferred Language: Italian Communication Ability: Effective Soft Top Installer Required: No Beliefs That Will Affect Care: None marital status: Current Living Situation: Spouse Current Living Situation Comment: lives in a trailer How many Children do You have: 1 Feels Safe at Home: Yes Assistive Devices: Denture - Upper and Denture - Lower Allergies Allergies Allergy/AdvReac Type Severity Reaction Status Date / Time levofloxacin AdvReac Severe C-DIFF Verified 12/13/24 21:05 Home Meds Home Medications Medication Instructions Recorded Confirmed magnesium oxide 400 mg PO QPM 03/08/22 01/24/25 amlodipine 5 mg tablet 5 mg PO QAM 07/21/22 01/24/25 ondansetron HCl 8 mg tablet 8 mg PO TID PRN PRIOR TO 07/21/22 01/24/25 CHEMOTHERAPY MEDS imatinib 100 mg tablet (Gleevec) 200 mg PO QAM 09/22/22 01/24/25 calcium acetate(phosphat bind) 667 2,001 mg PO TID 10/20/22 01/24/25 mg capsule omeprazole 40 mg capsule,delayed 40 mg PO QAM 06/02/23 01/24/25 release oxycodone-acetaminophen 5 mg-325 1 tab PO Q8H PRN Pain 06/02/23 01/24/25 mg tablet gabapentin 100 mg capsule 100 mg PO AMHS 07/16/24 01/24/25 metoprolol tartrate 25 mg tablet 75 mg PO AMHS 08/29/24 01/24/25 hydralazine 25 mg tablet 25 mg PO TID 12/13/24 01/24/25 oxybutynin chloride 5 mg 5 mg PO 3XWK 12/13/24 01/24/25 tablet,extended release 24 hr calcium carbonate (Tums Ultra) 400 mg PO AMHS ##0 12/14/24 01/24/25 apixaban 2.5 mg tablet (Eliquis) 2.5 mg PO BID 01/24/25 01/24/25 calcitriol 0.5 mcg capsule 1 mcg PO 3XWK 01/24/25 01/24/25 clonidine HCl 0.1 mg tablet 0.1 mg PO AMHS 01/24/25 01/24/25 colchicine 0.6 mg tablet 0.6 mg PO AMHS 01/24/25 01/24/25 colestipol 1 gram tablet 2 g PO AMHS 01/24/25 01/24/25 cyclosporine 0.05 % eye drops in a 1 drp ophthalmic (eye) AMHS 01/24/25 01/24/25 dropperette loperamide 2 mg tablet 2 mg PO BID PRN Diarrhea 01/24/25 01/24/25 prednisone 20 mg tablet 20 mg PO DIRECTED 01/24/25 01/24/25 vitamin B complex and vitamin C 1 cap PO QAM 01/24/25 01/24/25 no.20-folic acid 1 mg capsule (Triphrocaps) Previous Rx's Medication Instructions Recorded levothyroxine 200 mcg tablet 200 mcg PO DAILY #30 tabs 07/24/24 atorvastatin 20 mg tablet 20 mg PO HS #30 tabs 10/31/24 Results & Data (ED) Vital Signs Vital Signs - 24 hr 01/24/25 08:05 01/24/25 08:07 01/24/25 08:39 Temperature 36.8 C Temperature Source Temporal Artery Scan Pulse Rate 81 75 Pulse Rate [Apical] 81 Pulse Rate from SpO2 Sensor Respiratory Rate 16 20 Respiratory Effort / Characteristics Non-Labored Spontaneous Non-Labored Spontaneous Respiratory Depth Shallow Normal Respiratory Pattern Regular Blood Pressure 156/81 H Blood Pressure [Right Arm] 140/77 Blood Pressure Mean 106 Blood Pressure Mean [Right Arm] 98 Pulse Oximetry 92 98 Oxygen Delivery Method Room Air Room Air Oxygen Flow Rate Sepsis Recent Fever Within 48 Hours No Sepsis New/Unexplained Change in Mental Status No Sepsis Action Taken by Nursing No Action Required 01/24/25 08:39 01/24/25 08:42 01/24/25 08:51 Temperature Temperature Source Pulse Rate 75 79 76 Pulse Rate [Apical] Pulse Rate from SpO2 Sensor 75 79 76 Respiratory Rate 25 H 21 Respiratory Effort / Characteristics Respiratory Depth Respiratory Pattern Blood Pressure Blood Pressure [Right Arm] Blood Pressure Mean Blood Pressure Mean [Right Arm] Pulse Oximetry 95 94 98 Oxygen Delivery Method Oxygen Flow Rate Sepsis Recent Fever Within 48 Hours Sepsis New/Unexplained Change in Mental Status Sepsis Action Taken by Nursing 01/24/25 09:00 01/24/25 09:00 01/24/25 09:00 Temperature Temperature Source Pulse Rate Pulse Rate [Apical] Pulse Rate from SpO2 Sensor Respiratory Rate Respiratory Effort / Characteristics Respiratory Depth Respiratory Pattern Blood Pressure 146/81 H 146/81 H 146/81 H Blood Pressure [Right Arm] Blood Pressure Mean 99 99 99 Blood Pressure Mean [Right Arm] Pulse Oximetry Oxygen Delivery Method Oxygen Flow Rate Sepsis Recent Fever Within 48 Hours Sepsis New/Unexplained Change in Mental Status Sepsis Action Taken by Nursing 01/24/25 09:00 01/24/25 09:00 01/24/25 09:00 Temperature Temperature Source Pulse Rate 76 Pulse Rate [Apical] Pulse Rate from SpO2 Sensor 75 Respiratory Rate 17 Respiratory Effort / Characteristics Respiratory Depth Respiratory Pattern Blood Pressure 146/81 H 146/81 H Blood Pressure [Right Arm] Blood Pressure Mean 99 99 Blood Pressure Mean [Right Arm] Pulse Oximetry 96 Oxygen Delivery Method Oxygen Flow Rate Sepsis Recent Fever Within 48 Hours Sepsis New/Unexplained Change in Mental Status Sepsis Action Taken by Nursing 01/24/25 09:12 01/24/25 09:21 01/24/25 09:30 Temperature Temperature Source Pulse Rate 83 78 Pulse Rate [Apical] Pulse Rate from SpO2 Sensor 83 79 Respiratory Rate 14 0 L Respiratory Effort / Characteristics Respiratory Depth Respiratory Pattern Blood Pressure 134/72 Blood Pressure [Right Arm] Blood Pressure Mean 90 Blood Pressure Mean [Right Arm] Pulse Oximetry 100 99 Oxygen Delivery Method Oxygen Flow Rate Sepsis Recent Fever Within 48 Hours Sepsis New/Unexplained Change in Mental Status Sepsis Action Taken by Nursing 01/24/25 09:30 01/24/25 09:30 01/24/25 09:30 Temperature Temperature Source Pulse Rate Pulse Rate [Apical] Pulse Rate from SpO2 Sensor Respiratory Rate Respiratory Effort / Characteristics Respiratory Depth Respiratory Pattern Blood Pressure 134/72 134/72 134/72 Blood Pressure [Right Arm] Blood Pressure Mean 90 90 90 Blood Pressure Mean [Right Arm] Pulse Oximetry Oxygen Delivery Method Oxygen Flow Rate Sepsis Recent Fever Within 48 Hours Sepsis New/Unexplained Change in Mental Status Sepsis Action Taken by Nursing 01/24/25 09:30 01/24/25 09:30 01/24/25 09:42 Temperature Temperature Source Pulse Rate 80 79 Pulse Rate [Apical] Pulse Rate from SpO2 Sensor 81 79 Respiratory Rate 20 Respiratory Effort / Characteristics Respiratory Depth Respiratory Pattern Blood Pressure 134/72 Blood Pressure [Right Arm] Blood Pressure Mean 90 Blood Pressure Mean [Right Arm] Pulse Oximetry 98 99 Oxygen Delivery Method Oxygen Flow Rate Sepsis Recent Fever Within 48 Hours Sepsis New/Unexplained Change in Mental Status Sepsis Action Taken by Nursing 01/24/25 09:51 01/24/25 10:00 01/24/25 10:00 Temperature Temperature Source Pulse Rate 73 Pulse Rate [Apical] Pulse Rate from SpO2 Sensor 74 Respiratory Rate 13 Respiratory Effort / Characteristics Respiratory Depth Respiratory Pattern Blood Pressure 147/77 H 147/77 H Blood Pressure [Right Arm] Blood Pressure Mean 107 107 Blood Pressure Mean [Right Arm] Pulse Oximetry 94 Oxygen Delivery Method Oxygen Flow Rate Sepsis Recent Fever Within 48 Hours Sepsis New/Unexplained Change in Mental Status Sepsis Action Taken by Nursing 01/24/25 10:00 01/24/25 10:00 01/24/25 10:00 Temperature Temperature Source Pulse Rate Pulse Rate [Apical] Pulse Rate from SpO2 Sensor Respiratory Rate Respiratory Effort / Characteristics Respiratory Depth Respiratory Pattern Blood Pressure 147/77 H 147/77 H 147/77 H Blood Pressure [Right Arm] Blood Pressure Mean 107 107 107 Blood Pressure Mean [Right Arm] Pulse Oximetry Oxygen Delivery Method Oxygen Flow Rate Sepsis Recent Fever Within 48 Hours Sepsis New/Unexplained Change in Mental Status Sepsis Action Taken by Nursing 01/24/25 10:00 01/24/25 10:12 01/24/25 10:21 Temperature Temperature Source Pulse Rate 82 79 80 Pulse Rate [Apical] Pulse Rate from SpO2 Sensor 83 79 79 Respiratory Rate 16 16 13 Respiratory Effort / Characteristics Respiratory Depth Respiratory Pattern Blood Pressure Blood Pressure [Right Arm] Blood Pressure Mean Blood Pressure Mean [Right Arm] Pulse Oximetry 99 99 99 Oxygen Delivery Method Oxygen Flow Rate Sepsis Recent Fever Within 48 Hours Sepsis New/Unexplained Change in Mental Status Sepsis Action Taken by Nursing 01/24/25 10:30 01/24/25 10:30 01/24/25 10:30 Temperature Temperature Source Pulse Rate Pulse Rate [Apical] Pulse Rate from SpO2 Sensor Respiratory Rate Respiratory Effort / Characteristics Respiratory Depth Respiratory Pattern Blood Pressure 143/76 H 143/76 H 143/76 H Blood Pressure [Right Arm] Blood Pressure Mean 104 104 104 Blood Pressure Mean [Right Arm] Pulse Oximetry Oxygen Delivery Method Oxygen Flow Rate Sepsis Recent Fever Within 48 Hours Sepsis New/Unexplained Change in Mental Status Sepsis Action Taken by Nursing 01/24/25 10:30 01/24/25 10:30 01/24/25 10:30 Temperature Temperature Source Pulse Rate 74 Pulse Rate [Apical] Pulse Rate from SpO2 Sensor 74 Respiratory Rate 14 Respiratory Effort / Characteristics Respiratory Depth Respiratory Pattern Blood Pressure 143/76 H 143/76 H Blood Pressure [Right Arm] Blood Pressure Mean 104 104 Blood Pressure Mean [Right Arm] Pulse Oximetry 99 Oxygen Delivery Method Oxygen Flow Rate Sepsis Recent Fever Within 48 Hours Sepsis New/Unexplained Change in Mental Status Sepsis Action Taken by Nursing 01/24/25 10:42 01/24/25 10:51 01/24/25 11:00 Temperature Temperature Source Pulse Rate 74 75 Pulse Rate [Apical] Pulse Rate from SpO2 Sensor 75 76 Respiratory Rate 14 22 Respiratory Effort / Characteristics Respiratory Depth Respiratory Pattern Blood Pressure 149/85 H Blood Pressure [Right Arm] Blood Pressure Mean 113 Blood Pressure Mean [Right Arm] Pulse Oximetry 99 99 Oxygen Delivery Method Oxygen Flow Rate Sepsis Recent Fever Within 48 Hours Sepsis New/Unexplained Change in Mental Status Sepsis Action Taken by Nursing 01/24/25 11:00 01/24/25 11:00 01/24/25 11:00 Temperature Temperature Source Pulse Rate Pulse Rate [Apical] Pulse Rate from SpO2 Sensor Respiratory Rate Respiratory Effort / Characteristics Respiratory Depth Respiratory Pattern Blood Pressure 149/85 H 149/85 H 149/85 H Blood Pressure [Right Arm] Blood Pressure Mean 113 113 113 Blood Pressure Mean [Right Arm] Pulse Oximetry Oxygen Delivery Method Oxygen Flow Rate Sepsis Recent Fever Within 48 Hours Sepsis New/Unexplained Change in Mental Status Sepsis Action Taken by Nursing 01/24/25 11:00 01/24/25 11:00 01/24/25 11:12 Temperature Temperature Source Pulse Rate 79 74 Pulse Rate [Apical] Pulse Rate from SpO2 Sensor 79 74 Respiratory Rate 33 H 21 Respiratory Effort / Characteristics Respiratory Depth Respiratory Pattern Blood Pressure 149/85 H Blood Pressure [Right Arm] Blood Pressure Mean 113 Blood Pressure Mean [Right Arm] Pulse Oximetry 99 99 Oxygen Delivery Method Oxygen Flow Rate Sepsis Recent Fever Within 48 Hours Sepsis New/Unexplained Change in Mental Status Sepsis Action Taken by Nursing 01/24/25 11:21 01/24/25 11:30 01/24/25 11:30 Temperature Temperature Source Pulse Rate 71 72 Pulse Rate [Apical] Pulse Rate from SpO2 Sensor 71 72 Respiratory Rate 9 L 19 Respiratory Effort / Characteristics Respiratory Depth Respiratory Pattern Blood Pressure 148/79 H Blood Pressure [Right Arm] Blood Pressure Mean 111 Blood Pressure Mean [Right Arm] Pulse Oximetry 98 99 Oxygen Delivery Method Oxygen Flow Rate Sepsis Recent Fever Within 48 Hours Sepsis New/Unexplained Change in Mental Status Sepsis Action Taken by Nursing 01/24/25 11:30 01/24/25 11:30 01/24/25 11:30 Temperature Temperature Source Pulse Rate Pulse Rate [Apical] Pulse Rate from SpO2 Sensor Respiratory Rate Respiratory Effort / Characteristics Respiratory Depth Respiratory Pattern Blood Pressure 148/79 H 148/79 H 148/79 H Blood Pressure [Right Arm] Blood Pressure Mean 111 111 111 Blood Pressure Mean [Right Arm] Pulse Oximetry Oxygen Delivery Method Oxygen Flow Rate Sepsis Recent Fever Within 48 Hours Sepsis New/Unexplained Change in Mental Status Sepsis Action Taken by Nursing 01/24/25 11:30 01/24/25 11:42 01/24/25 11:51 Temperature Temperature Source Pulse Rate 73 80 Pulse Rate [Apical] Pulse Rate from SpO2 Sensor 74 79 Respiratory Rate 29 H 20 Respiratory Effort / Characteristics Respiratory Depth Respiratory Pattern Blood Pressure 148/79 H Blood Pressure [Right Arm] Blood Pressure Mean 111 Blood Pressure Mean [Right Arm] Pulse Oximetry 98 98 Oxygen Delivery Method Oxygen Flow Rate Sepsis Recent Fever Within 48 Hours Sepsis New/Unexplained Change in Mental Status Sepsis Action Taken by Nursing 01/24/25 12:08 Temperature Temperature Source Pulse Rate Pulse Rate [Apical] 76 Pulse Rate from SpO2 Sensor Respiratory Rate 18 Respiratory Effort / Characteristics Respiratory Depth Respiratory Pattern Blood Pressure Blood Pressure [Right Arm] 144/84 H Blood Pressure Mean Blood Pressure Mean [Right Arm] 104 Pulse Oximetry 98 Oxygen Delivery Method Nasal Cannula Oxygen Flow Rate 1 Sepsis Recent Fever Within 48 Hours Sepsis New/Unexplained Change in Mental Status Sepsis Action Taken by Nursing Laboratory Data 01/24/25 08:34 01/24/25 08:34 Lab Results 01/24/25 01/24/25 01/24/25 Range/Units 08:34 08:40 09:37 WBC 5.59 (4.8-10.8) K/ul RBC 2.45 L (4.20-5.40) M/uL Hgb 7.3 L (12.0-16.0) g/dL POC Hgb 6.8 L* (12.0-16.0) g/dl Hct 23.0 L (37.0-47.0) % POC Hct 20 L* (37-47) % MCV 93.9 (80.0-100.0) fL MCH 29.8 (25.0-34.0) pg MCHC 31.7 L (32.0-36.0) g/dL RDW Std Deviation 55.9 H (36.4-46.3) fL RDW Coeff of [place] 16.2 H (11.5-14.5) % Plt Count 177 (130-400) K/uL MPV 9.1 L (9.4-12.4) fL Immature Gran % (Auto) 2.1 % Neut % (Auto) 62.7 % Lymph % (Auto) 15.0 % [place] % (Auto) 14.3 % Eos % (Auto) 4.8 % Baso % (Auto) 1.1 % Neut # (Auto) 3.50 (1.40-6.50) K/uL Lymph # (Auto) 0.84 L (1.20-3.40) K/uL [place] # (Auto) 0.80 H (0.11-0.59) K/uL Eos # (Auto) 0.27 (0.00-0.50) K/uL Baso # (Auto) 0.06 (0.00-0.20) K/uL Immature Gran # (Auto) 0.12 (0.01-0.20) K/uL RBC Morphology Unremarkable PT 12.0 (9.0-12.0) Seconds INR 1.1 (0.9-1.1) POC Sodium 136 (135-144) mmol/L Sodium 139 (136-145) mmol/L POC Potassium 4.7 (3.3-5.0) mmol/L Potassium 4.8 (3.5-5.1) mmol/L POC Chloride 94 L (101-112) mmol/L Chloride 94 L (98-107) mmol/L Carbon Dioxide 31 (21-32) mmol/L POC Total CO2 28 (24-31) mmol/L Anion Gap 14 H (3-11) POC Anion Gap 19.0 (16-25) mmol/L POC BUN 37 H (7-18) mg/dl BUN 41 H (6-23) mg/dl Creatinine 8.06 H* (0.6-1.2) mg/dl POC Creatinine 9.4 H* (0.6-1.3) mg/dl Est Cr Clr Drug Dosing 7.3 ml/min eGFR 5.05 BUN/Creatinine Ratio 5.1 L (10-20) Glucose 85 (70-99(Fasting)) mg/dl POC Glucose (other) 84 (70-99) mg/dl Calcium 8.0 L (8.6-10.3) mg/dl POC Ioniz Calcium Valeri 0.89 L (1.12-1.32) mmol/l Magnesium 1.5 L (1.7-2.4) mg/dl Total Bilirubin 0.7 (0.2-1.0) mg/dl AST 12 L (13-39) U/L ALT 5 L (7-52) U/L Alkaline Phosphatase 49 (34-104) U/L Total Protein 5.8 L (6.0-8.3) gm/dl Albumin 3.4 (3.4-5.0) gm/dl Globulin 2.4 L (2.5-4.0) gm/dl Albumin/Globulin Ratio 1.4 (0.9-2) Lipase 46 (11-82) U/L Blood Type A Positive Antibody Screen NEGATIVE Administered Medications Discontinued Medications Epoetin Adrián (Epoetin Adrián 20,000 Units/Ml Vial) 20,000 units IV ONE ONE Stop: 01/24/25 13:06 Last Admin: 01/24/25 15:06 Dose: 20,000 units Documented By: CC Miscellaneous (No Heparin In Dialysis) 1 each N/A ONE ONE Stop: 01/24/25 13:06 Last Admin: 01/24/25 15:06 Dose: Not Given Documented By: CC Imaging Data Radiologist's Impression: Chest X-Ray 01/24/25 09:15 XR chest 1V portable CLINICAL HISTORY: anemia COMPARISON STUDY: 12/13/2024 FINDINGS: Stable chest port. Stable prominent cardiomegaly with mild pulmonary vascular congestion. There is mild opacity in the lung bases with mild blunting of the costophrenic angles, improved. No pneumothorax. IMPRESSION: 1. Mild CHF. 2. Mild bilateral lung base opacity, improved. ACT 112: Negative or not required by law. Electronically signed by: Liborio Short M.D. 01/24/2025 9:43 AM Discharge Plan Visit Data Chief Complaint: Abnormal Labs/Diagnostic Testing Stated Complaint: LOW HEMAGLOBIN, REF BY DOC ED Provider: Fide Emmanuel Discharge Problem: Anemia, CKD (chronic kidney disease) requiring chronic dialysis, Neck pain, Non-compliance Patient Disposition: Admitted As Inpatient Condition: Fair Discharge Instructions Interventions: ED Discharge Assessment Last Done: 01/24/25 13:32
--- NOTE | 2025-01-24 09:44 | XRay Report ---
XR chest 1V portable CLINICAL HISTORY: anemia COMPARISON STUDY: 12/13/2024 FINDINGS: Stable chest port. Stable prominent cardiomegaly with mild pulmonary vascular congestion. T here is mild opacity in the lung bases with mild blunting of the costophrenic angles, improved. No pn eumothorax. IMPRESSION: 1. Mild CHF. 2. Mild bilateral lung base opacity, improved. ACT 112: Negative or not required by law. Electronically signed by: Liborio Short M.D. 01/24/2025 9:43 AM
[2025-01-24 09:56] LABS: Hematocrit (blood only) 23.0 % (37.0-47.0); Hemoglobin 7.3 g/dL (12.0-16.0); Immature Granulocytes # (auto) 0.12 K/uL (0.01-0.20); Immature Granulocytes % (auto) 2.1 %; Mean Corpuscular Hemoglobin 29.8 pg (25.0-34.0); Mean Corpuscular Volume 93.9 fL (80.0-100.0); Platelet Count 177 K/uL (130-400); RDW Standard Deviation 55.9 fL (36.4-46.3); Red Blood Count 2.45 M/uL (4.20-5.40); White Blood Count 5.59 K/ul (4.8-10.8)
[2025-01-24 10:22] LABS: Alanine Aminotransferase 5.0 U/L (7-52); Albumin Globulin Ratio 1.4 (0.9-2); Albumin Level 3.4 gm/dl (3.4-5.0); Alkaline Phosphatase 49.0 U/L (34-104); Anion Gap 14.0 (3-11); Bilirubin,Total 0.7 mg/dl (0.2-1.0); Blood Urea Nitrogen 41.0 mg/dl (6-23); Calcium 8.0 mg/dl (8.6-10.3); Carbon Dioxide 31.0 mmol/L (21-32); Chloride 94.0 mmol/L (98-107); Creatinine Clr Calc Pharmacy 7.3 ml/min; Globulin 2.4 gm/dl (2.5-4.0); Glucose 85.0 mg/dl (70-99(Fasting)); Lipase 46.0 U/L (11-82); Magnesium 1.5 mg/dl (1.7-2.4); Potassium 4.8 mmol/L (3.5-5.1); Sodium 139.0 mmol/L (136-145); Total Protein 5.8 gm/dl (6.0-8.3)
[2025-01-24 10:23] LABS: INR 1.1 (0.9-1.1); Prothrombin Time 12.0 Seconds (9.0-12.0); RBC Morphology Unremarkable
--- NOTE | 2025-01-24 10:49 | Nephrology Consultation ---
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 No longer on immunosuppression. Significant issues with nonadherence due to back pain. Dialysis today 4 hours Target a liter UF with hold parameters Next dialysis on January 27 Orise. Will need to indicate; could consider short treatment tomorrow to help optimize volume status which would likely include her hemoglobin. Patient with history of significant nonadherence to dialysis regimen that has already skipped 3 treatments this month so far. Seems to be tolerating treatment today however. Continue to encourage adherence -agree w/ dialysis diet and 1.5L FR -continue calcitriol and phosphorus binders Care coordinated w/ ED and w/ primary service regarding transfusion, dialysis dispo; we are in agreement. (2) Acute on chronic anemia: hgb 7.3 today >> suspected will improve with UF on dialysis. Daily CBC Monitor for bleeding She received 20,000 units of erythropoietin on treatment today (3) History of biliary stent insertion: keep 02/18 [facility] appt for removal after ascending cholangitis/E coli bacteremia admission [facility] [place] late Nov History of Present Illness Reason for Consultation: esrd on HD/ missed HD Requesting Physician: Dr Peralta Attending Physician: Dr Peralta History of Present Illness 69 y/o F whom I'm asked to see for missed HD was admitted today for same in the setting of concerns about worsening anemia. 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 Admitted to [facility] December 02 to with ascending cholangitis; cholangitis complicated by E. coli bacteremia and A-fib with RVR. Anticoagulation not started during this visit; however since this discharge, she has been started on Eliquis. She is due to have an ERCP/biliary stent removal locally with [facility] on February 18. Also admitted here last month early with concerning for pericarditis and was started on colchicine at that time. Cardiology has been consulted today to follow-up on pericarditis status: Echocardiogram today without evidence of ongoing inflammation and reasonable for patient to stop colchicine per cardiology. She had already self discontinued prednisone Somewhat early. Patient is frequently nonadherent with dialysis treatments. For example in January, she shorten her treatments on January 13 and January 22 for 30 minutes each due to back pain she tells me. She also skipped treatments on January 15 and . She did have 120 mcg mircera on 01/22. Concern was for low hemoglobin measured 2 days ago at outpatient dialysis of 7.3 and for missed dialysis. Based on these she was advised to come to the ER for evaluation. Hiivb-om-fseg hemoglobin on arrival was 6.8; however standardized test came back at 7.3. Patient denies recent bloody or dark tarry stool. No other bleeding sources or episodes. States that her breathing is at baseline; no coughing or wheezing currently. No fever sore throat abdominal pain chest pain palpitations. She voids daily about 1 cup and denies any recent changes in voiding habits. Allergies Allergy/AdvReac Type Severity Reaction Status Date / Time levofloxacin AdvReac Severe C-DIFF Verified 12/13/24 21:05 Home Medications Medication Instructions Recorded Confirmed Type magnesium oxide 400 mg PO QPM 03/08/22 01/24/25 History amlodipine 5 mg tablet 5 mg PO QAM 07/21/22 01/24/25 History ondansetron HCl 8 mg tablet 8 mg PO TID PRN PRIOR TO 07/21/22 01/24/25 History CHEMOTHERAPY MEDS imatinib 100 mg tablet (Gleevec) 200 mg PO QAM 09/22/22 01/24/25 History calcium acetate(phosphat bind) 667 2,001 mg PO TID 10/20/22 01/24/25 History mg capsule omeprazole 40 mg capsule,delayed 40 mg PO QAM 06/02/23 01/24/25 History release oxycodone-acetaminophen 5 mg-325 1 tab PO Q8H PRN Pain 06/02/23 01/24/25 History mg tablet gabapentin 100 mg capsule 100 mg PO AMHS 07/16/24 01/24/25 History levothyroxine 200 mcg tablet 200 mcg PO DAILY #30 tabs 07/24/24 01/24/25 Rx metoprolol tartrate 25 mg tablet 75 mg PO AMHS 08/29/24 01/24/25 History atorvastatin 20 mg tablet 20 mg PO HS #30 tabs 10/31/24 01/24/25 Rx hydralazine 25 mg tablet 25 mg PO TID 12/13/24 01/24/25 History oxybutynin chloride 5 mg 5 mg PO 3XWK 12/13/24 01/24/25 History tablet,extended release 24 hr calcium carbonate (Tums Ultra) 400 mg PO AMHS ##0 12/14/24 01/24/25 History apixaban 2.5 mg tablet (Eliquis) 2.5 mg PO BID 01/24/25 01/24/25 History calcitriol 0.5 mcg capsule 1 mcg PO 3XWK 01/24/25 01/24/25 History clonidine HCl 0.1 mg tablet 0.1 mg PO AMHS 01/24/25 01/24/25 History colchicine 0.6 mg tablet 0.6 mg PO AMHS 01/24/25 01/24/25 History colestipol 1 gram tablet 2 g PO AMHS 01/24/25 01/24/25 History cyclosporine 0.05 % eye drops in a 1 drp ophthalmic (eye) AMHS 01/24/25 01/24/25 History dropperette loperamide 2 mg tablet 2 mg PO BID PRN Diarrhea 01/24/25 01/24/25 History prednisone 20 mg tablet 20 mg PO DIRECTED 01/24/25 01/24/25 History vitamin B complex and vitamin C 1 cap PO QAM 01/24/25 01/24/25 History no.20-folic acid 1 mg capsule (Triphrocaps) Patient History Medical History Mediastinal mass ongoing work-up with [facility] thoracic medicine and heme/onc Secondary hyperparathyroidism Neck pain h/o UE paresthesias; pt states neck pain and upper extremity abnormal symptoms>fully resolved Thyroid nodule s/p thyroidectomy COVID-19 hx-01/29/22-not hospitalized-symptoms fully resolved Pulmonary hypertension COPD (chronic obstructive pulmonary disease) stable per pt, no longer using supplemental oxygen-states home pulse ox readings are consistently 97% or greater-pt states provider is aware Abnormal stress test 01/2021 (reversible anterior and basal lateral defect consistent with ischemia vs soft tissue attenuation artifact) per [facility] cardio records, plan for medical management and consideration for DSE at 03/2021 appt; final determination per [facility] cardio is recommendation for diagnostic cardiac catheterization not yet scheduled by patient; now advised risk > benefit per [facility] cardio Limb alert care status left arm Port-A-Cath in place has not used in a long time History of peritoneal dialysis per [facility] cardio records "...previous peritoneal dialysis catheters. At least 1 of the peritoneal dialysis catheters had to be removed because of peritonitis..." Palpitations AV fistula left upper arm (functioning), also one to left wrist, but does not function properly Chronic back pain GERD (gastroesophageal reflux disease) controlled, stable per pt Migraine Sleep apnea severe per [facility] records, no device currently > has apt soon to see about getting back on device Surgical History Hx of total thyroidectomy 06/28/22, [facility] [place]>3 1/2 of parathyroid removed, also removed nodules that were "non cancerous" History of surgery hx perm cath insertion & removal History of appendectomy H/O cystoscopy History of laparoscopy History of bilateral tubal ligation History of kidney transplant 08/28/2016 @ [facility] (right side) functions at only 10%--d/t ESRD > follows with dr at [facility] History of cholecystectomy History of section x1 History of colonoscopy History of esophagogastroduodenoscopy (EGD) History of tooth extraction History of wisdom tooth extraction History of tonsillectomy and adenoidectomy Family History Grandmother (Paternal) Family history of diabetes mellitus Grandmother (Maternal) Family history of diabetes mellitus Family hx of colon cancer Mother Family hx of colon cancer Other No family history of adverse response to anesthesia Social History Smoking Status: Former smoker Tobacco Type: Cigarettes Second Hand Exposure: No; Do You Dip or Chew Tobacco: No; Hx Alcohol Use: No Hx Substance Use: No Preferred Language: Frisian Communication Ability: Effective Manager Express Required: No Beliefs That Will Affect Care: None marital status: Current Living Situation: Spouse Current Living Situation Comment: lives in a trailer How many Children do You have: 1 Feels Safe at Home: Yes Assistive Devices: Denture - Upper and Denture - Lower Review of Systems 2 Review of Systems: All systems reviewed & are unremarkable except as noted in HPI & below Physical Exam 2 Constitutional: well developed and well nourished Eyes: EOM intact bilaterally ENMT: Mouth: + dry oral mucous membranes Respiratory: normal respiratory effort Auscultation: + diminished lung sounds Cardiovascular: Rate/Rhythm: regular rate and regular rhythm Heart Sounds: + murmur Extremities: + AV fistula; no edema Gastrointestinal (Abdomen): Inspection/Auscultation: normal bowel sounds P ercussion/Palpation: abdomen soft; abdomen nontender Musculoskeletal: Extremities: strength 5/5 throughout Skin: no rashes, warm and dry Neurologic: gregory, fluent speech, no tremor; L facial droop Results & Data Vital Signs (Past 12 Hours) Vital Signs Temp Pulse Pulse Resp BP BP Pulse Ox 01/24/25 10:30 74 14 99 01/24/25 10:30 143/76 H 01/24/25 10:30 143/76 H 01/24/25 10:30 143/76 H 01/24/25 10:30 143/76 H 01/24/25 10:30 143/76 H 01/24/25 10:21 80 13 99 01/24/25 10:12 79 16 99 01/24/25 10:00 82 16 99 01/24/25 10:00 147/77 H 01/24/25 10:00 147/77 H 01/24/25 10:00 147/77 H 01/24/25 10:00 147/77 H 01/24/25 10:00 147/77 H 01/24/25 09:51 73 13 94 01/24/25 09:42 79 20 99 01/24/25 09:30 80 98 01/24/25 09:30 134/72 01/24/25 09:30 134/72 01/24/25 09:30 134/72 01/24/25 09:30 134/72 01/24/25 09:30 134/72 01/24/25 09:21 78 0 L 99 01/24/25 09:12 83 14 100 01/24/25 09:00 76 17 96 01/24/25 09:00 146/81 H 01/24/25 09:00 146/81 H 01/24/25 09:00 146/81 H 01/24/25 09:00 146/81 H 01/24/25 09:00 146/81 H 01/24/25 08:51 76 21 98 01/24/25 08:42 79 94 01/24/25 08:39 75 25 H 95 01/24/25 08:39 75 01/24/25 08:07 36.8 C 81 20 156/81 H 98 01/24/25 08:05 81 16 140/77 92 O2 Del Method 01/24/25 10:30 01/24/25 10:30 01/24/25 10:30 01/24/25 10:30 01/24/25 10:30 01/24/25 10:30 01/24/25 10:21 01/24/25 10:12 01/24/25 10:00 01/24/25 10:00 01/24/25 10:00 01/24/25 10:00 01/24/25 10:00 01/24/25 10:00 01/24/25 09:51 01/24/25 09:42 01/24/25 09:30 01/24/25 09:30 01/24/25 09:30 01/24/25 09:30 01/24/25 09:30 01/24/25 09:30 01/24/25 09:21 01/24/25 09:12 01/24/25 09:00 01/24/25 09:00 01/24/25 09:00 01/24/25 09:00 01/24/25 09:00 01/24/25 09:00 01/24/25 08:51 01/24/25 08:42 01/24/25 08:39 01/24/25 08:39 01/24/25 08:07 Room Air 01/24/25 08:05 Room Air Laboratory Results 01/24/25 08:34 01/24/25 08:34 Diagnostic Findings CXR with mild bilateral effusion.
[2025-01-24] MEDS ORDERED: ONDANSETRON INJ 2 MG/ML 2 ML VIAL IV PRN (12:31)
[2025-01-24] MEDS ORDERED: POLYETHYLENE (MIRALAX) 17 GM PACK PO PRN (12:31)
[2025-01-24] MEDS ORDERED: MAGNESIUM HYDROXIDE SUSP 30 ML UDC PO PRN (12:31)
[2025-01-24] MEDS ORDERED: ACETAMINOPHEN 325 MG TAB PO PRN (12:31)
--- NOTE | 2025-01-24 12:37 | History & Physical Report ---
Date of Service January 24, 2025 Assessment & Plan (1) Non-compliance: (2) CKD (chronic kidney disease) requiring chronic dialysis: Plan Non compliance Anemia of chronic kidney disease ESRD on HD: Undergoes dialysis Monday, Monday, Monday. Underwent partial di alysis on Monday and was planning to skip dialysis today when she called [facility] which referred her to the hospital due to low hemoglobin drawn 2 days ago. Volume overload: iso partial/missed dialysis. cxr w/ congestion. Patient was referred to the ED due to hemoglobin being 7.3, admitting hemoglobin of 7.3. Patient's baseline hemoglobin around 8-9. Patient denies any blood in the stool or black stool, denies any bleeding through her nose or vomiting or trauma Will get iron panel, B12 and folate level. Monitor H&H. Patient denies any lightheadedness or dizziness, no acute indication for transfusion for now. Nephrology consult to assist with dialysis/possible Procrit administration Recent diagnosis of pericarditis: Continue home colchicine, pt states she doesn't take prednisone. Patient evidently has canceled her outpatient Cardiology appointment on 12/26, 01/14, 01/16. She was last discharged on 12/15. Will consult cardiology inpatient to assist with finalizing management as patient seem to be noncompliant with cardiology visit as an outpatient. History of ascending cholangitis: Patient needs to have ERCP done, appears that she has been canceling her outpatient GI appointment. Patient will need GI appointment within a week time upon discharge. Other chronic medical conditions: P A-fib, HTN, HLD, Graves' disease, secondary hyperparathyroidism, GERD, severe [place], GIST tumor: Continue/resume home meds as when able. 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 Patient reports that she has not had any bloody stool or black stool, reports compliance with Eliquis, denies any bleeding through the nose or any vomitus. Patient reports that she is in her usual state of health, denies dizziness or lightheadedness or headache. Patient denies fever/sore throat/cough/chest pain/belly pain. Patient reports no acute changes in her bowel habits. Patient does make urine every other day and denies any pain or burning while passing urine. Patient denies smoking/alcohol/recreational drugs. Medications reviewed with the patient at bedside in detail. Plan of care discussed with the patient and her at bedside, answered all their questions. Full code Allergies Allergy/AdvReac Type Severity Reaction Status Date / Time levofloxacin AdvReac Severe C-DIFF Verified 12/13/24 21:05 Home Medications Medication Instructions Recorded Confirmed Type magnesium oxide 400 mg PO QPM 03/08/22 01/24/25 History amlodipine 5 mg tablet 5 mg PO QAM 07/21/22 01/24/25 History ondansetron HCl 8 mg tablet 8 mg PO TID PRN PRIOR TO 07/21/22 01/24/25 History CHEMOTHERAPY MEDS imatinib 100 mg tablet (Gleevec) 200 mg PO QAM 09/22/22 01/24/25 History calcium acetate(phosphat bind) 667 2,001 mg PO TID 10/20/22 01/24/25 History mg capsule omeprazole 40 mg capsule,delayed 40 mg PO QAM 06/02/23 01/24/25 History release oxycodone-acetaminophen 5 mg-325 1 tab PO Q8H PRN Pain 06/02/23 01/24/25 History mg tablet gabapentin 100 mg capsule 100 mg PO AMHS 07/16/24 01/24/25 History levothyroxine 200 mcg tablet 200 mcg PO DAILY #30 tabs 07/24/24 01/24/25 Rx metoprolol tartrate 25 mg tablet 75 mg PO AMHS 08/29/24 01/24/25 History atorvastatin 20 mg tablet 20 mg PO HS #30 tabs 10/31/24 01/24/25 Rx hydralazine 25 mg tablet 25 mg PO TID 12/13/24 01/24/25 History oxybutynin chloride 5 mg 5 mg PO 3XWK 12/13/24 01/24/25 History tablet,extended release 24 hr calcium carbonate (Tums Ultra) 400 mg PO AMHS ##0 12/14/24 01/24/25 History apixaban 2.5 mg tablet (Eliquis) 2.5 mg PO BID 01/24/25 01/24/25 History calcitriol 0.5 mcg capsule 1 mcg PO 3XWK 01/24/25 01/24/25 History clonidine HCl 0.1 mg tablet 0.1 mg PO AMHS 01/24/25 01/24/25 History colchicine 0.6 mg tablet 0.6 mg PO AMHS 01/24/25 01/24/25 History colestipol 1 gram tablet 2 g PO AMHS 01/24/25 01/24/25 History cyclosporine 0.05 % eye drops in a 1 drp ophthalmic (eye) AMHS 01/24/25 01/24/25 History dropperette loperamide 2 mg tablet 2 mg PO BID PRN Diarrhea 01/24/25 01/24/25 History prednisone 20 mg tablet 20 mg PO DIRECTED 01/24/25 01/24/25 History vitamin B complex and vitamin C 1 cap PO QAM 01/24/25 01/24/25 History no.20-folic acid 1 mg capsule (Triphrocaps) Past Med/Surg History Problem List (Updated 01/24/25 @ 13:15 by Tori Friedman MD, PhD) Acute on chronic anemia Non-compliance (Acute) Neck pain (Acute) CKD (chronic kidney disease) requiring chronic dialysis (Acute) Anemia (Acute) PAF (paroxysmal atrial fibrillation) Pleural effusion, bilateral Pericardial effusion Chest pain Acute hypoxic respiratory failure (Acute) Pleural effusion (Acute) Acute pericarditis due to uremia (Acute) Pericarditis (Acute) Acute pericardial effusion (Acute) NSTEMI (non-ST elevated myocardial infarction) Dyslipidemia, goal LDL below 70 Uncontrolled hypertension Elevated troponin Pulmonary edema due to fluid overload Uremic encephalopathy Uremia Acute hyperkalemia (Acute) Hypothyroidism Hot flashes Dialysis AV fistula malfunction Anemia (Acute) ESRD on hemodialysis (Acute) Hypocalcemia (Acute) 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 Encounter for pre-operative examination Hypertensive urgency (Acute) Abnormal finding on MRI of brain (Acute) Chronic migraine (Acute) CKD (chronic kidney disease) (Acute) Hypertensive crisis Dyspnea on exertion Essential hypertension (Chronic) Morbid obesity Hypoxia (Acute) Sleep apnea Hypercalcemia Hemodialysis catheter malfunction DVT prophylaxis UTI (urinary tract infection) Nausea Diarrhea Sepsis Hypotension (Acute) UTI (urinary tract infection) (Acute) Tachycardia (Acute) Weakness (Acute) Diaphoresis (Acute) Central venous catheter in place Dialysis AV fistula malfunction Post-surgical hypothyroidism S/P thyroidectomy S/P parathyroidectomy (Acute) ESRD (end stage renal disease) on dialysis (Chronic) Hyperkalemia (Acute) Abdominal pain (Acute) Dilated bile duct (Acute) Pyelonephritis (Acute) Bladder wall thickening Hypoxia (Acute) Fluid overload (Acute) Hypocalcemia (Acute) Failed kidney transplant 2017 ESRD (end stage renal disease) on dialysis (Chronic) MWF at [facility] in [place] HTN (hypertension) (Chronic) HLD (hyperlipidemia) (Chronic) Anemia in chronic kidney disease (Chronic) Hypothyroidism (Chronic) s/p thyroidectomy at [facility] 06/28/22 Medical History (Updated 01/24/25 @ 13:15 by Tori Friedman MD, PhD) Mediastinal mass ongoing work-up with [facility] thoracic medicine and heme/onc Secondary hyperparathyroidism Neck pain h/o UE paresthesias; pt states neck pain and upper extremity abnormal symptoms>fully resolved Thyroid nodule s/p thyroidectomy COVID-19 hx-01/29/22-not hospitalized-symptoms fully resolved Pulmonary hypertension COPD (chronic obstructive pulmonary disease) stable per pt, no longer using supplemental oxygen-states home pulse ox readings are consistently 97% or greater-pt states provider is aware Abnormal stress test 01/2021 (reversible anterior and basal lateral defect consistent with ischemia vs soft tissue attenuation artifact) per [facility] cardio records, plan for medical management and consideration for DSE at 03/2021 appt; final determination per [facility] cardio is recommendation for diagnostic cardiac catheterization not yet scheduled by patient; now advised risk > benefit per [facility] cardio Limb alert care status left arm Port-A-Cath in place has not used in a long time History of peritoneal dialysis per [facility] cardio records "...previous peritoneal dialysis catheters. At least 1 of the peritoneal dialysis catheters had to be removed because of peritonitis..." Palpitations AV fistula left upper arm (functioning), also one to left wrist, but does not function properly Chronic back pain GERD (gastroesophageal reflux disease) controlled, stable per pt Migraine Sleep apnea severe per [facility] records, no device currently > has apt soon to see about amenati ng back on device Surgical History (Updated 01/15/25 @ 00:07 by Background Daemon) Hx of total thyroidectomy 06/28/22, [place]>3 1/2 of parathyroid removed, also removed nodules that were "non cancerous" History of surgery hx perm cath insertion & removal History of appendectomy H/O cystoscopy History of laparoscopy History of bilateral tubal ligation [place] [facility] [place] at [place] 10%--d/t ESRD > follows with dr at [facility] History of cholecystectomy History of section x1 History of colonoscopy History of esophagogastroduodenoscopy (EGD) History of tooth extraction History of wisdom tooth extraction History of tonsillectomy and adenoidectomy Family History Grandmother (Paternal) Family history of diabetes mellitus Grandmother (Maternal) Family history of diabetes mellitus Family hx of colon cancer Mother Family hx of colon cancer Other No family history of adverse response to anesthesia Social History Smoking Status: Never smoker Tobacco Type: Cigarettes Second Hand Exposure: No; Do You Dip or Chew Tobacco: No; Hx Alcohol Use: No Hx Substance Use: No Preferred Language: Portuguese Communication Ability: Effective Weight Control Lecturer Required: No Beliefs That Will Affect Care: None marital status: Current Living Situation: Spouse Current Living Situation Comment: lives at home w spouse How many Children do You have: 1 Feels Safe at Home: Yes Assistive Devices: CPAP Review of Systems Review of Systems: Negative otherwise mentioned in HPI. Physical Exam Physical Exam: GENERAL: Alert and oriented x3. NAD, on RA. Appears chronically ill, weak, older than state age. HEENT: No pallor, no icterus. Pupils equal, round and reactive to light. Oral mucosa moist. NECK: No JVD, no neck masses. HEART: S1 and S2 heard. Regular rate and rhythm. No murmur, no gallop. RESPIRATORY SYSTEM: Normal AP diameter. No accessory muscle use. No wheezing, bb crackles. ABDOMEN: Soft, bowel sounds present, nontender, no distention. CENTRAL NERVOUS SYSTEM: No facial droop. Speech is clear. Obeys simple commands. Moves extremities. EXTREMITIES: 1-2+ ble edema, no erythema seen. LUE AV fistula noted. Results & Data Results & Data Vital Signs (Past 12 Hours) Vital Signs Temp Pulse Pulse Resp BP BP Pulse Ox 01/24/25 12:08 76 18 144/84 H 98 01/24/25 11:51 80 20 98 01/24/25 11:42 73 29 H 98 01/24/25 11:30 148/79 H 01/24/25 11:30 148/79 H 01/24/25 11:30 148/79 H 01/24/25 11:30 148/79 H 01/24/25 11:30 148/79 H 01/24/25 11:30 72 19 99 01/24/25 11:21 71 9 L 98 01/24/25 11:12 74 21 99 01/24/25 11:00 79 33 H 99 01/24/25 11:00 149/85 H 01/24/25 11:00 149/85 H 01/24/25 11:00 149/85 H 01/24/25 11:00 149/85 H 01/24/25 11:00 149/85 H 01/24/25 10:51 75 22 99 01/24/25 10:42 74 14 99 01/24/25 10:30 74 14 99 01/24/25 10:30 143/76 H 01/24/25 10:30 143/76 H 01/24/25 10:30 143/76 H 01/24/25 10:30 143/76 H 01/24/25 10:30 143/76 H 01/24/25 10:21 80 13 99 01/24/25 10:12 79 16 99 01/24/25 10:00 82 16 99 01/24/25 10:00 147/77 H 01/24/25 10:00 147/77 H 01/24/25 10:00 147/77 H 01/24/25 10:00 147/77 H 01/24/25 10:00 147/77 H 01/24/25 09:51 73 13 94 01/24/25 09:42 79 20 99 01/24/25 09:30 80 98 01/24/25 09:30 134/72 01/24/25 09:30 134/72 01/24/25 09:30 134/72 01/24/25 09:30 134/72 01/24/25 09:30 134/72 01/24/25 09:21 78 0 L 99 01/24/25 09:12 83 14 100 01/24/25 09:00 76 17 96 01/24/25 09:00 146/81 H 01/24/25 09:00 146/81 H 01/24/25 09:00 146/81 H 01/24/25 09:00 146/81 H 01/24/25 09:00 146/81 H 01/24/25 08:51 76 21 98 01/24/25 08:42 79 94 01/24/25 08:39 75 25 H 95 01/24/25 08:39 75 01/24/25 08:07 36.8 C 81 20 156/81 H 98 01/24/25 08:05 81 16 140/77 92 O2 Del Method O2 Flow Rate 01/24/25 12:08 Nasal Cannula 1 01/24/25 11:51 01/24/25 11:42 01/24/25 11:30 01/24/25 11:30 01/24/25 11:30 01/24/25 11:30 01/24/25 11:30 01/24/25 11:30 01/24/25 11:21 01/24/25 11:12 01/24/25 11:00 01/24/25 11:00 01/24/25 11:00 01/24/25 11:00 01/24/25 11:00 01/24/25 11:00 01/24/25 10:51 01/24/25 10:42 01/24/25 10:30 01/24/25 10:30 01/24/25 10:30 01/24/25 10:30 01/24/25 10:30 01/24/25 10:30 01/24/25 10:21 01/24/25 10:12 01/24/25 10:00 01/24/25 10:00 01/24/25 10:00 01/24/25 10:00 01/24/25 10:00 01/24/25 10:00 01/24/25 09:51 01/24/25 09:42 01/24/25 09:30 01/24/25 09:30 01/24/25 09:30 01/24/25 09:30 01/24/25 09:30 01/24/25 09:30 01/24/25 09:21 01/24/25 09:12 01/24/25 09:00 01/24/25 09:00 01/24/25 09:00 01/24/25 09:00 01/24/25 09:00 01/24/25 09:00 01/24/25 08:51 01/24/25 08:42 01/24/25 08:39 01/24/25 08:39 01/24/25 08:07 Room Air 01/24/25 08:05 Room Air
[2025-01-24] MEDS ORDERED: SODIUM CHLORIDE 0.9% 1,000 ML IV PRN (13:05)
[2025-01-24] MEDS ORDERED: LOPERAMIDE HCL 2 MG CAP PO PRN (14:15)
[2025-01-24] MEDS: EPOETIN ALFA 20,000 UNITS/ML VIAL IV ONE (15:06)
--- NOTE | 2025-01-24 15:21 | Cardiology Consultation ---
Date of Consultation January 24, 2025 Assessment & Plan (1) History of pericarditis: (2) Acute on chronic anemia: (3) Non-compliance: (4) PAF (paroxysmal atrial fibrillation): Plan Patient is a complex 69 year old female admitted to [facility] due to anemia and volume overload after missing several dialysis sessions. Seen during HD. Cardiology consulted due to admission last month for pericarditis and non compliant with outpatient followup. Needed guidance on medications. History of pericarditis -last month she was admitted for right sided pleuritic chest pain, mildly elevated ESR -No pericardial effusion on echo -treated with colchicine for possible pericarditis and short course of prednisone (which patient possibly stopped prematurely). -she believes she has been taking colchicine -currently no symptoms of chest pain or pleuritic chest pain -Repeat limited echo today demonstrates NO pericardial effusion -OK to stop colchicine. No incitation for steroids at this time. Volume overload and anemia - multifactorial with missing HD sessions -volume removed with HD -Hbg will hopefully improve wiht fluid removal (dilutional?) -no signs of acute blood loss HTN -continue home medications PAF - currently NSR, continue Eliquis and metoprolol Case discussed with Dr. Pressley Will sign off. No further cardiac testing warranted Specialty Impression: History of possible pericardiits - resolved NO pericardial effusion on echo today. No symptoms Recommended medication(s) at discharge: Stop colchicine and prednisone Recommended discharge testing: None Follow- up in Specialty Clinic: No cardiac f/u needed at this time Rea Schmitz PA-C Department of Cardiology, [facility] This chart was completed in part utilizing Speech Voice Recognition Software. Grammatical errors, random word insertions, pronoun errors, and incomplete sentences are an occasional consequence of this system due to software limitations, ambient noise, and hardware issues. Any formal questions or concerns about the content, text, or information contained within the body of this dictation should be directly addressed to the provider for clarification. Supervising Physician Co-Signing Physician Notes Attending attestation: Case reviewed with the advanced practitioner. I have personally performed a history and physical examination on the patient. I have reviewed the advanced practitioner's documentation on the date of service referenced in note, and I agree with, and take responsibility for the plan of care. Subjective: Patient seen during dialysis. No recent chest discomfort reported. Exam: Cardiovascular: Regular rhythm and no murmurs Data: Limited bedside echocardiogram today without evidence of pericardial effusion. EKG performed today at 01/14/2025 revealed sinus rhythm at 73 bpm with incomplete right bundle branch block -Stable findings compared to the previous performed 12/13/2024 Impression/ Plan: Stable cardiac signs and symptoms -Discontinue colchicine. Román Pressley, History of Present Illness Reason for Consultation: History of pericarditis Requesting Physician: Heriberto Hospitalist Attending Physician: Dr. Pressley History of Present Illness Patient is a 69 year old female presenting to [facility] from dialysis for worsening anemia and volume overload after missing several HD sessions. Currently receiving HD on the 4th floor at time of evaluation. Last admission in Dec 2024, patient reported right sided sharp chest pain, worse with laying supine, improved sitting upwards. She had mildly elevated ESR. There was initially thought to have small pericardial effusion by CT scan of the chest, but no pericardial effusion on echo. Due to her symptoms suggestive of pericarditis vs pleuritis, she was discharged on colchicine 0.6 mg BID and prednisone taper (typically NSAIDS are used not steroids, but with her ESRD, short courses of prednisone was prescribed). She was to have cardio f/u to discuss meds but she cancelled this appointment 3x as an outpatient. She reports she took prednisone for "a little while" but likely did not finish. she is unsure if she was taking colchicine but "sounds familiar". No recurrent chest pain at rest, with exertion or pleuritic chest pain. She admits to SOB and reports significant fluid retention over the last few days, likely due to non compliance with HD sessions. No palpitations. No dizziness. History includes: 1. End-stage renal disease chronic dialysis 2. chronic respiratory failure with hypoxia with severe COPD 3. Graves' disease - status post total thyroidectomy, parathyroidectomy 4. hypertension 5. hyperlipidemia 6. gastrointestinal stromal tumor 7. [place] on CPAP 8. pulmonary hypertension 9. uterine leiomyoma 10. anemia Allergies Allergy/AdvReac Type Severity Reaction Status Date / Time levofloxacin AdvReac Severe C-DIFF Verified 12/13/24 21:05 Home Medications Medication Instructions Recorded Confirmed Type magnesium oxide 400 mg PO QPM 03/08/22 01/24/25 History amlodipine 5 mg tablet 5 mg PO QAM 07/21/22 01/24/25 History ondansetron HCl 8 mg tablet 8 mg PO TID PRN PRIOR TO 07/21/22 01/24/25 History CHEMOTHERAPY MEDS imatinib 100 mg tablet (Gleevec) 200 mg PO QAM 09/22/22 01/24/25 History calcium acetate(phosphat bind) 667 2,001 mg PO TID 10/20/22 01/24/25 History mg capsule omeprazole 40 mg capsule,delayed 40 mg PO QAM 06/02/23 01/24/25 History release oxycodone-acetaminophen 5 mg-325 1 tab PO Q8H PRN Pain 06/02/23 01/24/25 History mg tablet gabapentin 100 mg capsule 100 mg PO AMHS 07/16/24 01/24/25 History levothyroxine 200 mcg tablet 200 mcg PO DAILY #30 tabs 07/24/24 01/24/25 Rx metoprolol tartrate 25 mg tablet 75 mg PO AMHS 08/29/24 01/24/25 History atorvastatin 20 mg tablet 20 mg PO HS #30 tabs 10/31/24 01/24/25 Rx hydralazine 25 mg tablet 25 mg PO TID 12/13/24 01/24/25 History oxybutynin chloride 5 mg 5 mg PO 3XWK 12/13/24 01/24/25 History tablet,extended release 24 hr calcium carbonate (Tums Ultra) 400 mg PO AMHS ##0 12/14/24 01/24/25 History apixaban 2.5 mg tablet (Eliquis) 2.5 mg PO BID 01/24/25 01/24/25 History calcitriol 0.5 mcg capsule 1 mcg PO 3XWK 01/24/25 01/24/25 History clonidine HCl 0.1 mg tablet 0.1 mg PO AMHS 01/24/25 01/24/25 History colchicine 0.6 mg tablet 0.6 mg PO AMHS 01/24/25 01/24/25 History colestipol 1 gram tablet 2 g PO AMHS 01/24/25 01/24/25 History cyclosporine 0.05 % eye drops in a 1 drp ophthalmic (eye) AMHS 01/24/25 01/24/25 History dropperette loperamide 2 mg tablet 2 mg PO BID PRN Diarrhea 01/24/25 01/24/25 History prednisone 20 mg tablet 20 mg PO DIRECTED 01/24/25 01/24/25 History vitamin B complex and vitamin C 1 cap PO QAM 01/24/25 01/24/25 History no.20-folic acid 1 mg capsule (Triphrocaps) Patient History Medical History (Updated 01/24/25 @ 15:27 by Rea Schmitz PA-C) Mediastinal mass ongoing work-up with [facility] thoracic medicine and heme/onc Secondary hyperparathyroidism Neck pain h/o UE paresthesias; pt states neck pain and upper extremity abnormal sym ptoms>fully resolved Thyroid nodule s/p thyroidectomy COVID-19 hx-01/29/22-not hospitalized-symptoms fully resolved Pulmonary hypertension COPD (chronic obstructive pulmonary disease) stable per pt, no longer using supplemental oxygen-states home pulse ox readings are consistently 97% or greater-pt states provider is aware Abnormal stress test 01/2021 (reversible anterior and basal lateral defect consistent with ischemia vs soft tissue attenuation artifact) per [facility] cardio records, plan for medical management and consideration for DSE at 03/2021 appt; final determination per [facility] cardio is recommendation for diagnostic cardiac catheterization not yet scheduled by patient; now advised risk > benefit per [facility] cardio Limb alert care status left arm Port-A-Cath in place has not used in a long time History of peritoneal dialysis per [facility] cardio records "...previous peritoneal dialysis catheters. At least 1 of the peritoneal dialysis catheters had to be removed because of peritonitis..." Palpitations AV fistula left upper arm (functioning), also one to left wrist, but does not function properly Chronic back pain GERD (gastroesophageal reflux disease) controlled, stable per pt Migraine Sleep apnea severe per [facility] records, no device currently > has apt soon to see about getting back on device Surgical History (Updated 01/15/25 @ 00:07 by Background Shay) Hx of total thyroidectomy 06/28/22, [facility]>3 1/2 of parathyroid removed, also removed nodules that were "non cancerous" History of surgery hx perm cath insertion & removal History of appendectomy H/O cystoscopy History of laparoscopy History of bilateral tubal ligation History of kidney [place] [facility] [place] side) functions at only 10%--d/t ESRD > follows with dr at [facility] History of cholecystectomy History of section x1 History of colonoscopy History of esophagogastroduodenoscopy (EGD) History of tooth extraction History of wisdom tooth extraction History of tonsillectomy and adenoidectomy Family History Grandmother (Paternal) Family history of diabetes mellitus Grandmother (Maternal) Family history of diabetes mellitus Family hx of colon cancer Mother Family hx of colon cancer Other No family history of adverse response to anesthesia Social History Smoking Status: Former smoker Tobacco Type: Cigarettes Second Hand Exposure: No; Do You Dip or Chew Tobacco: No; Hx Alcohol Use: No Hx Substance Use: No Preferred Language: Honduran Communication Ability: Effective Supervisor Channel Process Required: No Beliefs That Will Affect Care: None marital status: Current Living Situation: Spouse Current Living Situation Comment: lives in a trailer How many Children do You have: 1 Feels Safe at Home: Yes Assistive Devices: Denture - Upper and Denture - Lower Review of Systems Review of Systems: All systems reviewed & are unremarkable except as noted in HPI & below Physical Exam Constitutional: WD/WN, vitals as above + ill appearing; no acute distress Patient seen during dialysis session Neck: trachea midline, no thyromegaly Respiratory: no labored breathing (supplemental O2 via NC) Auscultation: + diminished lung sounds Cardiovascular: Rate/Rhythm: regular rate and regular rhythm Heart Sounds: no murmur (No audible murmur) Vessels: + JVD Extremities: + edema (1+ pretibial and ankle edema) Gastrointestinal (Abdomen): normal bowel sounds, soft, nontender, no hepatosplenomegaly Neurologic: PERRL, EOMI, accommodation nl, no face palsy, no dysarthria Results & Data Vital Signs (Past 12 Hours) Vital Signs Temp Pulse Pulse Pulse Resp BP BP 01/24/25 14:30 80 138/84 01/24/25 14:22 36.4 C L 78 01/24/25 14:09 74 18 145/81 H 01/24/25 14:09 01/24/25 12:38 81 01/24/25 12:08 76 18 144/84 H 01/24/25 11:51 80 20 01/24/25 11:42 73 29 H 01/24/25 11:30 148/79 H 01/24/25 11:30 148/79 H 11/14/25 11:30 148/79 H 01/24/25 11:30 148/79 H 01/24/25 11:30 148/79 H 01/24/25 11:30 72 19 01/24/25 11:21 71 9 L 01/24/25 11:12 74 21 01/24/25 11:00 79 33 H 01/24/25 11:00 149/85 H 01/24/25 11:00 149/85 H 01/24/25 11:00 149/85 H 01/24/25 11:00 149/85 H 01/24/25 11:00 149/85 H 01/24/25 10:51 75 22 01/24/25 10:42 74 14 01/24/25 10:30 74 14 01/24/25 10:30 143/76 H 01/24/25 10:30 143/76 H 01/24/25 10:30 143/76 H 01/24/25 10:30 143/76 H 01/24/25 10:30 143/76 H 01/24/25 10:21 80 13 01/24/25 10:12 79 16 01/24/25 10:00 82 16 01/24/25 10:00 147/77 H 01/24/25 10:00 147/77 H 01/24/25 10:00 147/77 H 01/24/25 10:00 147/77 H 01/24/25 10:00 147/77 H 01/24/25 09:51 73 13 01/24/25 09:42 79 20 01/24/25 09:30 80 01/24/25 09:30 134/72 01/24/25 09:30 134/72 01/24/25 09:30 134/72 01/24/25 09:30 134/72 01/24/25 09:30 134/72 01/24/25 09:21 78 0 L 01/24/25 09:12 83 14 01/24/25 09:00 76 17 01/24/25 09:00 146/81 H 01/24/25 09:00 146/81 H 01/24/25 09:00 146/81 H 01/24/25 09:00 146/81 H 01/24/25 09:00 146/81 H 01/24/25 08:51 76 21 01/24/25 08:42 79 01/24/25 08:39 75 25 H 01/24/25 08:39 75 01/24/25 08:07 36.8 C 81 20 156/81 H 01/24/25 08:05 81 16 140/77 Pulse Ox O2 Del Method O2 Flow Rate 01/24/25 14:30 01/24/25 14:22 01/24/25 14:09 98 Nasal Cannula 1 01/24/25 14:09 98 Nasal Cannula 1 01/24/25 12:38 01/24/25 12:08 98 Nasal Cannula 1 01/24/25 11:51 98 01/24/25 11:42 98 01/24/25 11:30 01/24/25 11:30 01/24/25 11:30 01/24/25 11:30 01/24/25 11:30 01/24/25 11:30 99 01/24/25 11:21 98 01/24/25 11:12 99 01/24/25 11:00 99 01/24/25 11:00 01/24/25 11:00 01/24/25 11:00 01/24/25 11:00 01/24/25 11:00 01/24/25 10:51 99 01/24/25 10:42 99 01/24/25 10:30 99 01/24/25 10:30 01/24/25 10:30 01/24/25 10:30 01/24/25 10:30 01/24/25 10:30 01/24/25 10:21 99 01/24/25 10:12 99 01/24/25 10:00 99 01/24/25 10:00 01/24/25 10:00 01/24/25 10:00 01/24/25 10:00 01/24/25 10:00 01/24/25 09:51 94 01/24/25 09:42 99 01/24/25 09:30 98 01/24/25 09:30 01/24/25 09:30 01/24/25 09:30 01/24/25 09:30 01/24/25 09:30 01/24/25 09:21 99 01/24/25 09:12 100 01/24/25 09:00 96 01/24/25 09:00 01/24/25 09:00 01/24/25 09:00 01/24/25 09:00 01/24/25 09:00 01/24/25 08:51 98 01/24/25 08:42 94 01/24/25 08:39 95 01/24/25 08:39 01/24/25 08:07 98 Room Air 01/24/25 08:05 92 Room Air Laboratory Results Cardiac Enzymes 01/24/25 Range/Units 08:34 AST 12 L (13-39) U/L Coagulation 01/24/25 Range/Units 08:34 PT 12.0 (9.0-12.0) Seconds CBC 01/24/25 Range/Units 08:34 WBC 5.59 (4.8-10.8) K/ul RBC 2.45 L (4.20-5.40) M/uL Hgb 7.3 L (12.0-16.0) g/dL Hct 23.0 L (37.0-47.0) % Plt Count 177 (130-400) K/uL Neut # (Auto) 3.50 (1.40-6.50) K/uL Lymph # (Auto) 0.84 L (1.20-3.40) K/uL [place] # (Auto) 0.80 H (0.11-0.59) K/uL Eos # (Auto) 0.27 (0.00-0.50) K/uL Baso # (Auto) 0.06 (0.00-0.20) K/uL Comprehensive Metabolic Panel 01/24/25 Range/Units 08:34 Sodium 139 (136-145) mmol/L Potassium 4.8 (3.5-5.1) mmol/L Chloride 94 L (98-107) mmol/L Carbon Dioxide 31 (21-32) mmol/L BUN 41 H (6-23) mg/dl Creatinine 8.06 H* (0.6-1.2) mg/dl Glucose 85 (70-99(Fasting)) mg/dl Calcium 8.0 L (8.6-10.3) mg/dl AST 12 L (13-39) U/L ALT 5 L (7-52) U/L Alkaline Phosphatase 49 (34-104) U/L Total Protein 5.8 L (6.0-8.3) gm/dl Albumin 3.4 (3.4-5.0) gm/dl Intake and Output 01/24/25 01/24/25 01/24/25 06:59 14:59 22:59 Other: Weight 84.4 kg Weight Measurement Method Chair Scale Patient Weight 01/25/25 06:59 Weight 84.4 kg Diagnostic Findings Telemetry reviewed from when she was in the ER (not currently on telemetry at dialysis): NSR, no arrhythmias EKG on admission: NSR, incomplete RBBB, T wave inversion in V1-V3 Chest X-Ray 01/24/25 09:15 XR chest 1V portable CLINICAL HISTORY: anemia COMPARISON STUDY: 12/13/2024 FINDINGS: Stable chest port. Stable prominent cardiomegaly with mild pulmonary vascular congestion. There is mild opacity in the lung bases with mild blunting of the costophrenic angles, improved. No pneumothorax. IMPRESSION: 1. Mild CHF. 2. Mild bilateral lung base opacity, improved. ACT 112: Negative or not required by law. Electronically signed by: Liborio Short M.D. 01/24/2025 9:43 AM Prior data reviewed: Echo report reviewed from 12/14/24: No pericardial effusion Normal LVEF at 55-60% Mild valvular disease Medications Administered Current Inpatient Medications Acetaminophen (Acetaminophen 325 Mg Tab) 650 mg PO Q4H PRN PRN Reason: Pain or Fever Stop: 02/23/25 12:30 Al Hydrox/Mg Hydrox/Simethicone (Aluminum/Magnesium Susp 30 Ml Udc) 15 ml PO Q4H PRN PRN Reason: Dyspepsia Stop: 02/23/25 12:30 Amlodipine Besylate (Amlodipine Besylate 5 Mg Tab) 5 mg PO QAM VU Stop: 02/24/25 08:59 Apixaban (Apixaban 2.5 Mg Tab) 2.5 mg PO BID VU Stop: 02/23/25 20:59 Artificial Tears (Artificial Tears) 1 drops OP AMHS VU Stop: 02/23/25 20:59 Atorvastatin Calcium (Atorvastatin 20 Mg Tab) 20 mg PO HS VU Stop: 02/23/25 20:59 Calcitriol (Calcitriol 0.25 Mcg Capsule) 1 mcg PO MoWeFr@0900 VU Stop: 02/26/25 08:59 Calcium Acetate (Calcium Acetate 667 Mg Cap/Tab) 2,001 mg PO TID [facility] Stop: 02/23/25 20:59 Calcium Carbonate (Calcium Carbonate 500 Mg Chewable Tab) 500 mg PO [facility] Stop: 02/23/25 20:59 Clonidine HCl (Clonidine Hcl 0.1 Mg Tab) 0.1 mg PO [facility] Stop: 02/23/25 20:59 Colchicine (Colchicine 0.6 Mg Tab) 0.6 mg PO [facility] Stop: 02/23/25 20:59 Colestipol HCl (Colestipol Hcl 1 Gm Tab) 2 gm PO [facility] Stop: 02/23/25 20:59 Gabapentin (Gabapentin 100 Mg Cap) 200 mg PO MoWeFr@0900 [facility] Stop: 02/26/25 08:59 Hydralazine HCl (Hydralazine Hcl 25 Mg Tab) 25 mg PO TID [facility] Stop: 02/23/25 20:59 Sodium Chloride (Nss) 1,000 mls @ 0 mls/hr IV .Q0M PRN PRN Reason: For Hemodialysis Use ONLY Stop: 01/24/25 19:04 Levothyroxine Sodium (Levothyroxine Sodium 200 Mcg Tablet) [facility] Stop: 02/24/25 06:29 Loperamide HCl (Loperamide Hcl 2 Mg Cap) 2 mg PO BID PRN PRN Reason: Diarrhea Magnesium Hydroxide (Magnesium Hydroxide Susp 30 Ml Udc) 30 ml PO Q12H PRN PRN Reason: Constipation Stop: 02/23/25 12:30 Magnesium Oxide (Magnesium Oxide 400 Mg Tab) 400 mg PO QPM [facility] Stop: 02/23/25 20:59 Metoprolol Tartrate (Metoprolol Tartrate 25 Mg Tab) 75 mg PO [facility] Stop: 02/23/25 20:59 Miscellaneous (Imatinib [Gleevec] 100 Mg Tablet--Order Awaiting Action) 200 each N/A QAM [facility] Stop: 02/24/25 08:59 Ondansetron HCl (Ondansetron Inj 2 Mg/Ml 2 Ml Vial) 4 mg IV Q6H PRN PRN Reason: Nausea Stop: 02/23/25 12:30 Oxybutynin Chloride (Oxybutynin Chloride Xl 5 Mg Tabcr) 5 mg PO MoWeFr@0900 [facility] Stop: 02/26/25 08:59 Oxycodone/Acetaminophen (Oxycodone/Acetaminophen 5mg/325mg Tab) 1 tab PO Q8H PRN PRN Reason: Pain Stop: 02/07/25 14:14 Pantoprazole Sodium (Pantoprazole 40 Mg Tab) 40 mg PO QAM VU Stop: 02/24/25 08:59 Polyethylene Glycol (Polyethylene (Miralax) 17 Gm Pack) 17 gm PO DAILY PRN PRN Reason: Constipation Stop: 02/23/25 12:30 PG Care Time/CCT Total # of Minutes Spent Total Time Spent with Patient: Total time spent is greater than 50% in coordination of care (as documented) at patient's floor/unit and/or counseling patient: Coding Level of Care Code 43024 INT INP/OBS CARE 375MIN Diagnoses History of pericarditis Z86.79 Acute on chronic anemia D64.9 Non-compliance Z91.199 PAF (paroxysmal atrial fibrillation) I48.0
--- NOTE | 2025-01-24 16:34 | XCELERA ---
[id number] \\[id number]
--- NOTE | 2025-01-24 17:58 | Dialysis Progress Note ---
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 No longer on immunosuppression. Significant issues with nonadherence due to back pain. Dialysis today 4 hours Target a liter UF with hold parameters Next dialysis on January 27 or as clinical needs dictate all; could consider short treatment tomorrow to help optimize volume status which would likely include her hemoglobin. Patient with history of significant nonadherence to dialysis regimen that has already skipped 3 treatments this month so far. Seems to be tolerating treatment today however. Continue to encourage adherence -agree w/ dialysis diet and 1.5L FR -continue calcitriol and phosphorus binders Care coordinated w/ ED and w/ primary service regarding transfusion, dialysis dispo; we are in agreement. (2) Acute on chronic anemia: Plan: hgb 7.3 today >> suspected will improve with UF on dialysis. Daily CBC Monitor for bleeding She received 20,000 units of erythropoietin on treatment today (3) History of biliary stent insertion: Plan: keep 02/18 [facility] appt for removal after ascending cholangitis/E coli bacteremia admission [facility] [place] Admission and Anticipated Discharge Date Admission Date: January 24, 2025 Subjective Seen and evaluated on dialysis. Tolerating procedure well. She is asking, 10 minutes early (negotiated 5 minutes) due to some fecal urgency. No shortness of breath or palpitations or uncontrolled back pain Review of Systems 2 Review of Systems: All systems reviewed & are unremarkable except as noted in Subjective Physical Exam 2 Constitutional: well developed and well nourished Eyes: EOM intact bilaterally ENMT: Mouth: + dry oral mucous membranes Respiratory: normal respiratory effort Auscultation: + diminished lung sounds Cardiovascular: Rate/Rhythm: regular rate and regular rhythm Heart Sounds: + murmur Extremities: + AV fistula; no edema Gastrointestinal (Abdomen): Inspection/Auscultation: normal bowel sounds P ercussion/Palpation: abdomen soft; abdomen nontender Musculoskeletal: Extremities: strength 5/5 throughout Skin: no rashes, warm and dry Results & Data Vital Signs (Past 12 Hours) Vital Signs Temp Pulse Pulse Pulse Resp BP BP 01/24/25 17:00 90 136/78 01/24/25 16:30 88 122/71 01/24/25 16:00 89 144/77 H 01/24/25 15:30 84 150/78 H 01/24/25 15:00 80 148/86 H 01/24/25 14:30 80 138/84 01/24/25 14:22 36.4 C L 78 01/24/25 14:09 74 18 145/81 H 01/24/25 14:09 01/24/25 12:38 81 01/24/25 12:08 76 18 144/84 H 01/24/25 11:51 80 20 01/24/25 11:42 73 29 H 01/24/25 11:30 148/79 H 01/24/25 11:30 148/79 H 01/24/25 11:30 148/79 H 01/24/25 11:30 148/79 H 01/24/25 11:30 148/79 H 01/24/25 11:30 72 19 01/24/25 11:21 71 9 L 01/24/25 11:12 74 21 01/24/25 11:00 79 33 H 01/24/25 11:00 149/85 H 01/24/25 11:00 149/85 H 01/24/25 11:00 149/85 H 01/24/25 11:00 149/85 H 01/24/25 11:00 149/85 H 01/24/25 10:51 75 22 01/24/25 10:42 74 14 01/24/25 10:30 74 14 01/24/25 10:30 143/76 H 01/24/25 10:30 143/76 H 01/24/25 10:30 143/76 H 01/24/25 10:30 143/76 H 01/24/25 10:30 143/76 H 01/24/25 10:21 80 13 01/24/25 10:12 79 16 01/24/25 10:00 82 16 01/24/25 10:00 147/77 H 01/24/25 10:00 147/77 H 01/24/25 10:00 147/77 H 01/24/25 10:00 147/77 H 01/24/25 10:00 147/77 H 01/24/25 09:51 73 13 01/24/25 09:42 79 20 01/24/25 09:30 80 01/24/25 09:30 134/72 01/24/25 09:30 134/72 01/24/25 09:30 134/72 01/24/25 09:30 134/72 01/24/25 09:30 134/72 01/24/25 09:21 78 0 L 01/24/25 09:12 83 14 01/24/25 09:00 76 17 01/24/25 09:00 146/81 H 01/24/25 09:00 146/81 H 01/24/25 09:00 146/81 H 01/24/25 09:00 146/81 H 01/24/25 09:00 146/81 H 01/24/25 08:51 76 21 01/24/25 08:42 79 01/24/25 08:39 75 25 H 01/24/25 08:39 75 01/24/25 08:07 36.8 C 81 20 156/81 H 01/24/25 08:05 81 16 140/77 Pulse Ox O2 Del Method O2 Flow Rate 01/24/25 17:00 01/24/25 16:30 01/24/25 16:00 01/24/25 15:30 01/24/25 15:00 01/24/25 14:30 01/24/25 14:22 01/24/25 14:09 98 Nasal Cannula 1 01/24/25 14:09 98 Nasal Cannula 1 01/24/25 12:38 01/24/25 12:08 98 Nasal Cannula 1 01/24/25 11:51 98 01/24/25 11:42 98 01/24/25 11:30 01/24/25 11:30 01/24/25 11:30 01/24/25 11:30 01/24/25 11:30 01/24/25 11:30 99 01/24/25 11:21 98 01/24/25 11:12 99 01/24/25 11:00 99 01/24/25 11:00 01/24/25 11:00 01/24/25 11:00 01/24/25 11:00 01/24/25 11:00 01/24/25 10:51 99 01/24/25 10:42 99 01/24/25 10:30 99 01/24/25 10:30 01/24/25 10:30 01/24/25 10:30 01/24/25 10:30 01/24/25 10:30 01/24/25 10:21 99 01/24/25 10:12 99 01/24/25 10:00 99 01/24/25 10:00 01/24/25 10:00 01/24/25 10:00 01/24/25 10:00 01/24/25 10:00 01/24/25 09:51 94 01/24/25 09:42 99 01/24/25 09:30 98 01/24/25 09:30 01/24/25 09:30 01/24/25 09:30 01/24/25 09:30 01/24/25 09:30 01/24/25 09:21 99 01/24/25 09:12 100 01/24/25 09:00 96 01/24/25 09:00 01/24/25 09:00 01/24/25 09:00 01/24/25 09:00 01/24/25 09:00 01/24/25 08:51 98 01/24/25 08:42 94 01/24/25 08:39 95 01/24/25 08:39 01/24/25 08:07 98 Room Air 01/24/25 08:05 92 Room Air Laboratory Results 01/24/25 08:34 01/24/25 08:34
[2025-01-24] MEDS: CALCIUM CARBONATE 500 MG CHEWABLE TAB PO SCH (20:01)
[2025-01-24] MEDS: APIXABAN 2.5 MG TAB PO SCH (20:02)
[2025-01-24] MEDS: COLESTIPOL HCL 1 GM TAB PO SCH (20:03)
[2025-01-24] MEDS: ATORVASTATIN 20 MG TAB PO SCH (20:03)
[2025-01-24] MEDS: CALCIUM ACETATE 667 MG CAP/TAB PO SCH (20:03)
[2025-01-24] MEDS: METOPROLOL TARTRATE 25 MG TAB PO SCH (20:04)
[2025-01-24] MEDS: MAGNESIUM OXIDE 400 MG TAB PO SCH (20:05)
[2025-01-24] MEDS ORDERED: COLCHICINE 0.6 MG TAB PO SCH (21:00)
[2025-01-24] MEDS: ARTIFICIAL TEARS OP SCH (21:19)
[2025-01-25] MEDS: ALUMINUM/MAGNESIUM SUSP 30 ML UDC PO PRN (04:42)
[2025-01-25] MEDS: LEVOTHYROXINE SODIUM 200 MCG TABLET PO SCH (06:15)
[2025-01-25 06:33] LABS: Hematocrit (blood only) 20.0 % (37.0-47.0); Hemoglobin 6.4 g/dL (12.0-16.0); Mean Corpuscular Hemoglobin 29.9 pg (25.0-34.0); Mean Corpuscular Volume 93.5 fL (80.0-100.0); Platelet Count 165 K/uL (130-400); RDW Standard Deviation 55.0 fL (36.4-46.3); Red Blood Count 2.14 M/uL (4.20-5.40); White Blood Count 5.28 K/ul (4.8-10.8)
--- NOTE | 2025-01-25 06:41 | Communication Note ---
Date of Service: January 25, 2025 Made aware by RN of a.m. hemoglobin drop to 6.4 from 7.3 yesterday. No overt bleed as per RN. AP Progressive anemia Recheck H&H after 4 hours Defer decision for blood transfusion to a.m. provider.
[2025-01-25 06:50] LABS: Anion Gap 9.0 (3-11); Blood Urea Nitrogen 21.0 mg/dl (6-23); Calcium 8.3 mg/dl (8.6-10.3); Carbon Dioxide 32.0 mmol/L (21-32); Chloride 99.0 mmol/L (98-107); Creatinine Clr Calc Pharmacy 11.2 ml/min; Glucose 90.0 mg/dl (70-99(Fasting)); Iron 67.0 mcg/dl (35-150); Magnesium 1.7 mg/dl (1.7-2.4); Potassium 4.4 mmol/L (3.5-5.1); Sodium 140.0 mmol/L (136-145); Total Iron Binding Cap Calc 178.0 mcg/dl (250-450); Transferrin 127.0 mg/dl (200-360); Transferrin (FE) Percent Satur 38.0 % (15-50)
[2025-01-25 07:10] LABS: Folate (Folic Acid),Ser orPlas 5.76 ng/ml (>5.38)
[2025-01-25 07:11] LABS: Vitamin B12 321.0 pg/ml (180-914)
--- NOTE | 2025-01-25 08:15 | Electrocardiogram Report ---
Test Reason : Blood Pressure : */* mmHG Vent. Rate : 73 BPM Atrial Rate : 73 BPM P-R Int : 182 ms QRS Dur : 104 ms QT Int : 440 ms P-R-T Axes : 35 -12 13 degrees QTcB Int : 484 ms Normal sinus rhythm Incomplete right bundle branch block Borderline ECG When compared with ECG of 13-Dec-2024 15:59, No significant change Confirmed by Victor Hugo Lopez ([id number]) on 01/25/2025 8:14:38 AM Referred By: KHLOE AMES Confirmed By: Victor Hugo Lopez
[2025-01-25 09:30] LABS: Hematocrit (blood only) 23.1 % (37.0-47.0); Hemoglobin 7.1 g/dL (12.0-16.0)
[2025-01-25 11:24] VITALS: BP 133/74; PULSE 72; RESP 18; TEMP 98.1; O2SAT 97
--- NOTE | 2025-01-25 11:38 | Discharge Summary ---
Discharge Summary Date of Service January 25, 2025 Principal Dx & Hospital Course #1 = Principal Diagnosis (1) Acute on chronic anemia: (2) Anemia, chronic renal failure: (3) CKD (chronic kidney disease) requiring chronic dialysis: (4) PAF (paroxysmal atrial fibrillation): (5) Patient's noncompliance with other medical treatment and regimen due to unspecified reason: Plan Patient 69-year-old female with chronic end-stage renal disease on hemodialysis who came to the emergency room at the urging of the hemodialysis clinic because she missed her dialysis session and it showed that she had more significant anemia than previous based on the blood testing done a couple days ago. In the emergency room her hemoglobin was 7.3. She was referred for hemodialysis session and further evaluation of her hemoglobin. Patient denied any bloody stools. No melena. Patient underwent hemodialysis session. Hemoglobin remained stable. She did not require blood transfusion. She received Epogen on hemodialysis. Other vital signs are stable. No other acute issues. Patient was being treated for recent pericarditis with colchicine. Cardiology was consulted. They did a limited echocardiogram. There was no evidence of chan cardial effusion or pericarditis. They recommended stopping the colchicine. It is believed that her anemia is a function of her chronic renal failure and poor compliance with her hemodialysis sessions. Per nephrology reports she has missed half of her sessions this month already. I suspect that if she would be getting regular hemodialysis and evaluation she would get her regular Epogen and her hemoglobin remained stable. I stressed this instructions to her. Nephrology has no further plans for in-hospital hemodialysis. She could continue and her usual outpatient hemodialysis to be discharged home. Notes For Next Care Provider Medication Changes From Visit Colchicine discontinued Admission HPI Per Admitting Provider 69 yo medically complex female with past medical history significant for ESRD secondary to HTN/reflux nephropathy s/p failed DDKT on HD M/W/F, chronic hypoxic respiratory failure, severe COPD, Graves' disease and secondary hyperparathyroidism s/p total thyroidectomy and parathyroidectomy, HLD, HTN, GIST tumor, severe [place] on CPAP, pulmonary HTN, uterine leiomyoma, migraines, Butt's palsy, anemia of chronic renal failure and history of VRE UTI who presented to the ED at referral of [facility] for low Hb measured 2 days ago at 7.3. Patient reports that she has not had any bloody stool or black stool, reports compliance with Eliquis, denies any bleeding through the nose or any vomitus. Patient reports that she is in her usual state of health, denies dizziness or lightheadedness or headache. Patient denies fever/sore throat/cough/chest pain/belly pain. Patient reports no acute changes in her bowel habits. Patient does make urine every other day and denies any pain or burning while passing urine. Patient denies smoking/alcohol/recreational drugs. Medications reviewed with the patient at bedside in detail. Plan of care discussed with the patient and her at bedside, answered all their questions. Full code Admission Exam Per Admitting Provider See H&P Discharge Exam Constitutional: Alert HEENT: Mucous membranes moist. Lungs: Clear to auscultation, decreased, no wheezes rales or rhonchi CV: S1-S2, regular Abdomen: Soft, nontender, nondistended Extremities: No significant edema Neuro: No focal deficits Psych: Cooperative, normal mood Updated Medication List Medication Instructions Recorded Confirmed Type magnesium oxide 400 mg PO QPM 03/08/22 01/24/25 History amlodipine 5 mg tablet 5 mg PO QAM 07/21/22 01/24/25 History ondansetron HCl 8 mg tablet 8 mg PO TID PRN PRIOR TO 07/21/22 01/24/25 History CHEMOTHERAPY MEDS imatinib 100 mg tablet (Gleevec) 200 mg PO QAM 09/22/22 01/24/25 History calcium acetate(phosphat bind) 667 2,001 mg PO TID 10/20/22 01/24/25 History mg capsule omeprazole 40 mg capsule,delayed 40 mg PO QAM 06/02/23 01/24/25 History release oxycodone-acetaminophen 5 mg-325 1 tab PO Q8H PRN Pain 06/02/23 01/24/25 History mg tablet gabapentin 100 mg capsule 100 mg PO AMHS 07/16/24 01/24/25 History levothyroxine 200 mcg tablet 200 mcg PO DAILY #30 tabs 07/24/24 01/24/25 Rx metoprolol tartrate 25 mg tablet 75 mg PO AMHS 08/29/24 01/24/25 History atorvastatin 20 mg tablet 20 mg PO HS #30 tabs 10/31/24 01/24/25 Rx hydralazine 25 mg tablet 25 mg PO TID 12/13/24 01/24/25 History oxybutynin chloride 5 mg 5 mg PO 3XWK 12/13/24 01/24/25 History tablet,extended release 24 hr calcium carbonate (Tums Ultra) 400 mg PO AMHS ##0 12/14/24 01/24/25 History apixaban 2.5 mg tablet (Eliquis) 2.5 mg PO BID 01/24/25 01/24/25 History calcitriol 0.5 mcg capsule 1 mcg PO 3XWK 01/24/25 01/24/25 History clonidine HCl 0.1 mg tablet 0.1 mg PO AMHS 01/24/25 01/24/25 History colchicine 0.6 mg tablet 0.6 mg PO AMHS 01/24/25 01/24/25 History colestipol 1 gram tablet 2 g PO AMHS 01/24/25 01/24/25 History cyclosporine 0.05 % eye drops in a 1 drp ophthalmic (eye) AMHS 01/24/25 01/24/25 History dropperette loperamide 2 mg tablet 2 mg PO BID PRN Diarrhea 01/24/25 01/24/25 History prednisone 20 mg tablet 20 mg PO DIRECTED 01/24/25 01/24/25 History vitamin B complex and vitamin C 1 cap PO QAM 01/24/25 01/24/25 History no.20-folic acid 1 mg capsule (Triphrocaps) Hospital Stay Data Consultations 01/24/25 12:29 ED Decision to Admit Stat 01/24/25 14:20 Consult Cardiology Routine 01/24/25 17:07 Consult Nephrology Routine Diagnostic Imagining Performed Reviewed imaging, laboratory and diagnostic studies. Pertinent findings as bel ow. Hemoglobin 7.1 Electrolytes stable Creatinine 5.1 Iron 67 TIBC 178 Trans ferritin 127 Percent sat 38 B12 321 Folate 5.7 Discharge Instructions Given to Patient (Per Discharging Provider) You must attend all your dialysis sessions Follow-up with your GI team as already scheduled this coming week Total Time Total Time Spent Total Time Spent (In Minutes): 33
[2025-01-27] MEDS ORDERED: GABAPENTIN 100 MG CAP PO SCH (09:00)
[2025-01-27] MEDS ORDERED: OXYBUTYNIN CHLORIDE XL 5 MG TABCR PO SCH (09:00)
[2025-01-27] MEDS ORDERED: CALCITRIOL 0.25 MCG CAPSULE PO SCH (09:00)
== END 2025-01-25 13:08 | disposition home or self-care (01) | DRG 683 ==
LOC: ED 08:05 → SUATTDRO 12:31 → EDINP 12:31 → 2N 13:32